=== PATIENT | male | born 1970 | race Caucasian/White ===

== ENCOUNTER 2016-12-18 13:10 | Observation (INO) | payer MEDICARE ==
--- OUTSIDE RECORDS SUMMARY | 2016-12-18 13:12 | XMS | Clinical Summary ---
:1970 Author Organization [facility] Address [address] [place] [address] Phone Care Team Providers Name Role Phone , Primary Care Provider Unavailable Allergies Not on File Current Medications Not on file Active Problems Not on file Social History Tobacco Use Types Packs/Day Years Used Date Never Assessed Sex Assigned at Date Recorded Not on file Last Filed Vital Signs Not on file Plan of Treatment Not on file Results Not on filefrom Last 3 Months
[2016-12-18 13:53] LABS: #Basophils 0.1 thou/uL (0.0-0.2); #Eosinphils 0.1 thou/uL (0.0-0.7); #Lymphocytes 1.6 thou/uL (1.20-3.40); #Monocytes 0.6 thou/uL (0.11-0.59); #Neutrophils 5.1 thou/uL (1.40-6.50); %Basophils 0.7 % (0.0-1.0); %Eosinophils 1.1 % (0.0-10.0); Hematocrit 42.9 % (42.0-52.0); Mean Platelet Volume 8.8 fL (7.4-10.4); Red Blood Cell (RBC) Count 4.79 mill/uL (4.70-6.10); White Blood Cell (WBC) Count 7.4 thou/uL (4.8-10.8)
[2016-12-18 13:55] LABS: PTT 60.2 SEC (22.9-36.1)
[2016-12-18 14:18] LABS: Troponin I 0.048 ng/mL (< 0.028)
[2016-12-18 14:20] LABS: ALT (SGPT) 29 U/L (8-55); Alkaline Phosphatase 127 U/L (40-150); BUN (Urea Nitrogen) 25 mg/dL (8.9-20.6); Bilirubin, Total 0.6 mg/dL (0.2-1.2); CK (CPK) 74 U/L (30-200); Calc. Creatinine Clearance 0 mL/min (70-130); Calcium 9.5 mg/dL (7.8-10.44); Estimated GFR-MDRD 31; Globulin 4.6 g/dL (2.4-3.5); Lipase 41 U/L (8-78)
[2016-12-18 14:29] LABS: AST (SGOT) 35 U/L (5-34); Anion Gap 20 mmol/L (10-20); Protein, Total 7.7 g/dL (6.0-8.3)
[2016-12-18 14:30] LABS: Carbon Dioxide 22 mmol/L (22-29); Chloride 103 mmol/L (98-107)
--- NOTE | 2016-12-18 14:31 | RAD ---
1 VIEW CHEST: Date: 12/18/16 HISTORY: Chest pain x1 hour. COMPARISON: 12/31/15. FINDINGS: Normal cardiac silhouette. Pulmonary vessels and hilum are normal. No masses or consolidation. Chron ic changes are noted. No pneumothorax or osseous abnormalities. IMPRESSION: Chronic changes. No acute process. POS: [facility]
[2016-12-18] MEDS ORDERED: Acetaminophen 500 MG TAB ONE (14:59)
--- NOTE | 2016-12-18 16:03 | HP ---
PRIMARY CARE PHYSICIAN: ERNESTINA Aparicio REASON FOR ADMISSION: Chest pain. HISTORY OF PRESENT ILLNESS: A 46-year-old male with a history of chronic systolic heart failure, chronic kidney disease stage 4 as well as history of bilateral lower extremity deep vein thrombosis and pulmonary embolism with IVC filter, on chronic anticoagulation with warfarin, who came to emergency room with complaint of chest pain. The patient reports that this morning he was watching TV seated in his couch and he was experiencing substernal chest pressure. He denies any radiation of pain. He denies any associated nausea, vomiting or diaphoresis. His intensity of pain is about 7/10. There was no specific aggravating or relieving factor. There was no relation of chest pain with food, respiration or activity. He was denying any epigastric pain. He was denying any cough, hemoptysis. He denies any fever or chills. Patient was concerned about because he has previous history of PE and that is why he decided to come to the emergency room for evaluation. In the emergency room, this patient had indeterminate troponin with 0.048. His BNP is elevated. His electrocardiogram was unremarkable, his INR is therapeutic. When I saw this patient in the emergency room, his pain was subsided. The patient does have chronic wound over ankle on the left side lateral malleolus which per patient is improving. He denies any fever or chills. He denies any nausea, vomiting, melena or hematemesis. Patient reports that with walking, he hurts everywhere and that is why he remains mostly in bed. PAST MEDICAL HISTORY: Bilateral deep vein thromboses, pulmonary embolism, hypertension, gout, mitral valve prolapse, cardiomegaly, chronic systolic heart failure, chronic kidney disease stage 4, chronic anticoagulation with warfarin therapy, morbid obesity. PAST SURGICAL HISTORY: Cardiac catheterization. Patient reports that he had brain surgery for unknown reason, IVC filter. PAST PSYCHIATRIC HISTORY: Reviewed and negative. SOCIAL HISTORY: Patient lives at home by himself. No history of tobacco, alcohol or illicit drug abuse. FAMILY HISTORY: No strong family history of premature coronary artery disease, stroke or cancer. ALLERGIES: The patient is allergic to PHENYTOIN, VERSED, OXCARBAZEPINE. CURRENT HOME MEDICATIONS: Lasix 40 mg p.o. b.i.d., colchicine 0.6 mg as needed , metoprolol succinate one tablet p.o. daily, warfarin 7.5 mg p.o. daily, timolol ophthalmic drops b.i.d. EMERGENCY ROOM COURSE: Patient is given aspirin and Tylenol 1 gram. REVIEW OF SYSTEMS: Please see my HPI for pertinent positive and negatives. All other review of system reviewed and negative except as mentioned in the HPI. Constitutional: Weight loss or gain, ability to conduct usual activities. Skin: Rash, itching. Eyes: Double vision, pain. ENT/Mouth: Nose bleeding, neck stiffness, pain, tenderness. Cardiovascular: Palpitations, dyspnea on exertion, orthopnea. Respiratory: Shortness of breath, wheezing, cough, hemoptysis, fever or night sweats. Gastrointestinal: Poor appetite, abdominal pain, heartburn, nausea, vomiting, constipation, or diarrhea. Genitourinary: Urgency, frequency, dysuria, nocturia. Musculoskeletal: Pain, swelling. Neurologic/Psychiatric: Anxiety, depression. Allergy/Immunologic: Skin rash, bleeding tendency. PHYSICAL EXAMINATION: VITAL SIGNS: On arrival, blood pressure 116/81, pulse 86, respiratory rate 20, temperature 97.8, saturation 98% on room air, and weight 136 kilograms. GENERAL: Patient is currently alert, awake, no obvious acute distress. HEAD: Normocephalic, atraumatic. EYES: Pupils round, reactive to light. Extraocular muscles intact. ENT: Oropharynx within normal limits. Moist mucous membranes. No oral lesions. No pharyngeal erythema, no exudates. NECK: Supple. Range of motion is normal. No meningeal signs of irritation. LUNGS: Clear to auscultation without any significant wheezing or rhonchi. CARDIAC: S1, S2 regular without any murmur. ABDOMEN: Obesity present. Bowel sounds present. No peritoneal signs, no guarding, no rigidity, no rebound. No suprapubic tenderness. BACK: Examination unremarkable, no CVA tenderness. EXTREMITIES: Upper extremity, passive movements of all joints are normal. Lower extremity, trace bilateral lower extremity edema noted. Patient does have wound over lateral aspect of lateral malleolus, which is ulcer and chronic. No surrounding signs of the cellulitis. NEUROLOGIC: Nonfocal examination. He is able to move all four limbs. Speech normal. SKIN: No skin rash. HEMATOLOGICAL SYSTEM: No lymphadenopathy. IMAGING AND LABORATORY DATA: EKG based on my review, normal sinus rhythm, nonspecific ST-T changes. Chest x-ray based on my review, cardiomegaly without any acute process. CBC: WBC 7.4, hemoglobin 13.9, and platelets 121. INR 2.1. BMP: Sodium 140, potassium 4.8, chloride 103, carbon dioxide 22, anion gap 20, BUN 25, creatinine 2.26, glucose 94, calcium 9.5. LFT: AST 35, ALT 29 , alkaline phosphatase 127, and albumin 3.7. Lipase 41. CK 74, CK-MB 0.9, troponin I 0.048. BNP 283.3. ASSESSMENT AND PLAN/IMPRESSION: 1. Acute chest pain. This patient's chest pain description is atypical. This patient has elevated troponin. This patient's INR is therapeutic, less likely to be thromboembolic disorder. At this point, the patient's substernal chest pain lasted for few minutes and subsided by itself concerning for cardiac etiology. This patient reports that he never had any stress test done in the past. At this point, we will keep this patient in the hospital for observation and we will do serial cardiac enzymes. If his troponin is going upper side, then we will consider Cardiology evaluation. If troponin is trending downward, then we will consider doing pharmacological stress test. This patient reports that he cannot walk on treadmill and he prefers to have pharmacological stress test if needed. We will check lipid profile for risk stratification. Meanwhile , continue with aspirin 325 mg p.o. daily, nitroglycerin p.r.n. basis and we will monitor on telemetry floor. 2. Elevated troponin. We will do 3 sets of cardiac enzymes to see the trend of troponin. Please see problem #1 for further details. 3. Chronic systolic heart failure. This patient has cardiomyopathy based on most recent echocardiography in 2017. Patient does have more moderate mitral regurgitation and ejection fraction of 30%-35%. Currently, patient is on Toprol -XL 25 mg p.o. daily, Lasix 40 mg p.o. b.i.d. The patient is not on DAVID inhibitor and ARB because of renal failure. 4. Hypertension. We will continue amlodipine 5 mg p.o. daily. 5. Glaucoma. We will continue timolol ophthalmic drops as per home dosage. 6. History of bilateral deep venous thrombosis and pulmonary embolism on chronic anticoagulation with warfarin. Currently, INR is therapeutic. We will check PT/INR tomorrow and continue with warfarin 5 mg p.o. daily. 7. Morbid obesity. Dietary education given. Weight loss education given. 8. Deep venous thrombosis prophylaxis. The patient is already on warfarin therapy, no need of Lovenox therapy. 9. Gastrointestinal prophylaxis, Protonix 40 mg p.o. daily. CODE STATUS: The patient is FULL CODE. Patient does not have any surrogate decision maker. Disposition plan based on clinical course, likely within 24 hours. Based on cardiac enzymes tomorrow morning, we will decide whether we need to do stress test versus Cardiology consultation. Plan of care discussed with the patient in detail. MTDD
[2016-12-18] MEDS ORDERED: Sodium Chloride 0.65% Nasal 44 ML BOT EA NARE PRN (17:08)
[2016-12-18] MEDS ORDERED: Diabetic Tussin 200 MG/10 ML UDCUP PO PRN (17:08)
[2016-12-18] MEDS ORDERED: Senokot 8.6 MG TAB PO PRN (17:08)
[2016-12-18] MEDS ORDERED: Milk Of Magnesia 30 ML UDCUP PO PRN (17:08)
[2016-12-18] MEDS ORDERED: Ondansetron HCl/PF 4 MG/2 ML Vial IVP PRN (17:08)
[2016-12-18] MEDS ORDERED: Ondansetron ODT 4 MG TAB PO PRN (17:08)
[2016-12-18] MEDS ORDERED: Nitroglycerin 0.4 MG TAB (25 Tab Bottle) SL PRN (17:08)
[2016-12-18] MEDS ORDERED: Loperamide HCl 2 MG CAP PO PRN (17:08)
[2016-12-18] MEDS ORDERED: Artificial Tears 18 DROP/0.9 ML EA EYE PRN (17:08)
[2016-12-18] MEDS ORDERED: Mag-Al 1200 mg/1200 mg/30 ML UDCUP PO PRN (17:08)
[2016-12-18] MEDS ORDERED: Eucerin (Mineral Oil/Petrolatum,White) 30 gm Jar TOP PRN (17:08)
[2016-12-18 17:28] VITALS: BMI 35.2
[2016-12-18] MEDS ORDERED: Aspirin 325 MG TAB PO SCH (17:30)
[2016-12-18 18:54] LABS: Troponin I 0.058 ng/mL (< 0.028)
[2016-12-18] MEDS ORDERED: Warfarin Sodium 5 MG TAB PO SCH (19:15)
[2016-12-18] MEDS: Furosemide 40 MG TAB PO SCH (19:30)
[2016-12-18] MEDS: Acetaminophen 325 MG TAB PO PRN ×2 (19:30→23:37)
[2016-12-18] MEDS: Timolol 0.5% Ophth Soln 5 ml Bottle EA EYE SCH (20:22)
[2016-12-18 21:38] LABS: Troponin I 0.043 ng/mL (< 0.028)
[2016-12-18] MEDS: Nitroglycerin 2% Ointment 1 INCH/1 GM Packet TOP SCH (23:31)
[2016-12-19 04:32] LABS: Prothrombin Time 22.9 SEC (12.0-14.7)
[2016-12-19 04:39] LABS: #Eosinphils 0.1 thou/uL (0.0-0.7); #Lymphocytes 1.1 thou/uL (1.20-3.40); #Monocytes 0.4 thou/uL (0.11-0.59); %Eosinophils 1.8 % (0.0-10.0); %Lymphocytes 24.6 % (21.0-51.0); %Monocytes 9.1 % (0.0-10.0); Hematocrit 37.4 % (42.0-52.0); Mean Platelet Volume 8.2 fL (7.4-10.4); White Blood Cell (WBC) Count 4.6 thou/uL (4.8-10.8)
[2016-12-19 04:54] LABS: Anion Gap 16 mmol/L (10-20); BUN (Urea Nitrogen) 26 mg/dL (8.9-20.6); BUN/Creatinine Ratio 11.98; Calc. Creatinine Clearance 81 mL/min (70-130); Calcium 9.4 mg/dL (7.8-10.44); Carbon Dioxide 26 mmol/L (22-29); Chloride 102 mmol/L (98-107); Cholesterol 134 mg/dl (< 200 Desired); Estimated GFR-MDRD 33; LDL Cholesterol, Calculated 75 mg/dL; Phosphorus 4.6 mg/dL (2.3-4.7)
[2016-12-19] MEDS: Nitroglycerin 2% Ointment 1 INCH/1 GM Packet TOP SCH (05:05)
[2016-12-19 08:52] VITALS: BP 129/84; TEMP 97.6
[2016-12-19] MEDS ORDERED: Warfarin Sodium 5 MG TAB PO SCH ×2 (09:00→17:00)
[2016-12-19] MEDS ORDERED: Aspirin 325 MG TAB PO SCH (09:00)
[2016-12-19] MEDS: Furosemide 40 MG TAB PO SCH (09:13)
[2016-12-19] MEDS: Timolol 0.5% Ophth Soln 5 ml Bottle EA EYE SCH (09:14)
--- NOTE | 2016-12-19 11:03 | PDOC.EVN ---
Event Note - Event Note Event Note: DC SUMMARY [id number]
--- NOTE | 2016-12-19 13:11 | DIS ---
DATE OF ADMISSION: 12/18/2016 DATE OF DISCHARGE: 12/19/2016 ADMITTING DIAGNOSES: Chest pain, history of chronic kidney injury, gout, bilateral deep vein thromb oses, mitral valve prolapse, cardiomegaly, and chronic systolic heart failure. DISCHARGE DIAGNOSES: Chest pain, stable angina; gout; deep vein thromboses, stable; history of hype rtension; history of mitral valve prolapse; cardiomegaly; chronic systolic heart failure; chronic ki dney disease. HOSPITAL COURSE: Patient is a 46-year-old male who [facility] pain concerning cardiac etiology. The patient was put on telemetry [facility] and had his troponins trended. Troponins were stable at 0.048, last troponin being 0.043. Th e patient had a rise over the last year and this range has been the same since 03/2015 to now. Kathryn ent states that he recently saw his hematology nurse educator, Dr. Jefferson about 2 weeks ago and was told that every thing is normal with his heart. Patient takes metoprolol, Lasix, timolol at home as well as a gout medication. The patient had a transthoracic echocardiogram performed on 03/2015 which showed left v entricular enlargement, mild pulmonary regurg and EF of 30% to 35%. Patient, at this point in time, stated that he would like the stress test to be performed outpatient, does not want to have it done and patient states that he will call Dr. Jefferson on Wednesday and set up an appointment for outpatient st ress test. The patient denied any nausea, vomiting, diarrhea, constipation, chest pain, fevers, chi lls, or shortness of breath. Vital signs were stable. All labs are within acceptable limits. At t his point in time, we will discharge the patient home to follow up with Dr. Jefferson and PCP, Dr. Li abraham 3-5 days, PCP within 7-10 days. DISCHARGE MEDICATIONS: The patient is to resume home medication. We will also give him nitroglycer in 0.4 sublingual tablets every 5 minutes to be taken p.r.n. for chest pain. Patient was advised to call hematology nurse educator if he takes those medications. DISPOSITION: Home. MEDICATIONS: As per above. ACTIVITY: As tolerated. CONDITION: Stable. DIET: Heart healthy, low fat, low calorie, high fiber, low salt. FOLLOWUP: Follow up with cardio in 3-5 days, PCP within 7-10 days. Case and plan discussed with the patient at length. He understands and agrees with this plan.
== END 2016-12-19 13:11 | disposition home or self-care (01) ==
LOC: ERS 13:10 → 2SW 15:27
PROVIDERS: ADMIT Internal Medicine; ATTEND Internal Medicine
DX: R07.89 Other chest pain (principal); I13.0 Hypertensive heart and chronic kidney disease with heart failure and stage 1 through stage 4 chronic kidney disease, or unspecified chronic kidney disease; N18.4 Chronic kidney disease, stage 4 (severe); I50.22 Chronic systolic (congestive) heart failure; I51.7 Cardiomegaly; I34.1 Nonrheumatic mitral (valve) prolapse; M10.9 Gout, unspecified; E66.01 Morbid (severe) obesity due to excess calories; Z68.35 Body mass index [BMI] 35.0-35.9, adult; Z88.8 Allergy status to other drugs, medicaments and biological substances; Z79.01 Long term (current) use of anticoagulants; Z79.899 Other long term (current) drug therapy; Z95.828 Presence of other vascular implants and grafts; Z98.890 Other specified postprocedural states
CPT/HCPCS: 71010; 80053; 80061; 80069; 82550; 82553 ×2; 83690; 83880; 84484 ×2; 85025 ×2; 85610 ×2; 85730; 93005; 99285; G0378; 36415

== ENCOUNTER 2016-12-28 09:26 | Outpatient (CLI) | payer MEDICARE ==
--- OUTSIDE RECORDS SUMMARY | 2016-12-28 09:30 | XMS | Clinical Summary ---
:1970 Author Organization [facility] Address [address] [place] [address] Phone Care Team Providers Name Role Phone [...]
--- NOTE | 2016-12-28 12:46 | PRG ---
DATE OF SERVICE: 12/28/2016 HISTORY: Mr. Hans Boo Jr. is a very pleasant 46-year-old gentleman previously seen in the Wound Center who now presents with an ulceration of the left ankle in the region of the lateral mal leolus. The patient states that he first noted the ulceration 2-3 months ago. He states that a wou nd of his left ankle in the region of the lateral malleolus resulted from itching. The patient stat es that he treated the ulceration with the application of Band-Aids and the size of the wound increa sed. He states that the dimensions of the wound increased secondary to trauma to his skin from the Band-Aids. He states that he then begun receiving dressing changes of Telfa followed by an Nakul band age. He states that the size of the ulceration has decreased with dressing changes of Telfa in conj unction with the use of an Nakul bandage. The patient states that prior to application of Telfa to th e wound, he applies one of various essential oils he has on hand to his wound. The patient states t hat he has been performing dressing changes every 2-3 days. The patient was last seen in the Wound Center on 08/22/2014. The patient was also seen at this time for an ulceration of the left ankle in the region of the lateral malleolus. At this time, the ulceration was treated with dressing change s of Aquacel AG. The patient was unable to tolerate application of the [employer] Coban 2 layer compression system. The patient reports no new medical conditions since his last visit. The patient's surgical history is significant for right temporal lobectomy for treatment of a seizure disorder. The patient's past surgical history is also significant for IVC filter placement. Currently, the patient's medication s consist of Lasix, metoprolol, Coumadin, eyedrops for glaucoma, flaxseed oil, a vegetable supplemen t and a supplement containing turmeric. PHYSICAL EXAMINATION: VITAL SIGNS: Temperature 97.6, pulse 74, respirations 18, blood pressure 126/72. EXTREMITIES: The ulceration of the left ankle in the region of the lateral malleolus measures appro ximately 6.6 x 2.7 cm. Granulation tissue is visible within the wound margins. Nonviable tissue pr esent within the wound margins was debrided with an excisional full-thickness debridement with the u se of a curette. No purulent drainage is associated with the wound. No cellulitis of the left lowe r extremity is appreciated. No maceration of the skin of the periwound is noted. A posterior tibia l pulse is palpable on the left. Mild to moderate edema of the left lower extremity is appreciated on exam today. Varicosities of the left lower extremity are also noted on today's exam. ASSESSMENT AND PLAN: 1. 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 Aquacel Ag, Webril, and the 3M Coban two-lay er compression system will be applied to the ulceration today. I will see Mr. Boo again in 1 week. If the patient is unable to tolerate application of the 3M Coban 2-layer compression system, he has been instructed to perform dressing changes of Aquacel AG on a daily basis after cleansing an d irrigation. The patient understands and is in agreement with the preceding treatment plan. 2. Hypertension. 3. Anemia. 4. Cardiomyopathy. 5. History of seizure disorder, status post right temporal lobectomy with no recent seizures. 6. Chronic renal failure. 7. Mitral regurgitation. 8. History of headaches. 9. Increased intraocular pressure bilaterally. 10. Gout. 11. History of left lower extremity deep venous thrombosis followed by inferior vena cava filter pl acement. 12. Right lower extremity deep venous thrombosis. 13. Thrombocytopenia. 14. History of pleural effusion.
[2016-12-28] MEDS ORDERED: Sodium Chloride 0.9% 15 ML NEB ONE (17:00)
[2016-12-28] MEDS ORDERED: Lidocaine 4% Topical Sol 50 ML BOT ONE (17:00)
== END 2016-12-28 09:27 | disposition home or self-care (01) ==
LOC: WCC 09:26
PROVIDERS: ATTEND Family Medicine
DX: I83.028 Varicose veins of left lower extremity with ulcer other part of lower leg (principal); D64.9 Anemia, unspecified; I42.9 Cardiomyopathy, unspecified; I34.0 Nonrheumatic mitral (valve) insufficiency; I12.9 Hypertensive chronic kidney disease with stage 1 through stage 4 chronic kidney disease, or unspecified chronic kidney disease; N18.9 Chronic kidney disease, unspecified; M10.9 Gout, unspecified; D69.6 Thrombocytopenia, unspecified; I82.4Z1 Acute embolism and thrombosis of unspecified deep veins of right distal lower extremity; Z86.69 Personal history of other diseases of the nervous system and sense organs; Z87.09 Personal history of other diseases of the respiratory system
CPT/HCPCS: 11042; 97139; G0463; 99213; A4218; J2001

== ENCOUNTER 2016-12-31 19:30 | Emergency (ER) | payer MEDICARE ==
[2016-12-31 20:14] LABS: #Eosinphils 0.1 thou/uL (0.0-0.7); #Lymphocytes 1.4 thou/uL (1.20-3.40); #Monocytes 0.6 thou/uL (0.11-0.59); #Neutrophils 4.6 thou/uL (1.40-6.50); %Basophils 0.5 % (0.0-1.0); %Eosinophils 1.3 % (0.0-10.0); %Lymphocytes 20.9 % (21.0-51.0); %Monocytes 9.1 % (0.0-10.0); Hematocrit 45.4 % (42.0-52.0); Mean Platelet Volume 9.2 fL (7.4-10.4); Red Blood Cell (RBC) Count 5.09 mill/uL (4.70-6.10); White Blood Cell (WBC) Count 6.8 thou/uL (4.8-10.8)
[2016-12-31 20:23] LABS: ALT (SGPT) 47 U/L (8-55); AST (SGOT) 58 U/L (5-34); Alkaline Phosphatase 159 U/L (40-150); Anion Gap 19 mmol/L (10-20); BUN (Urea Nitrogen) 26 mg/dL (8.9-20.6); CK (CPK) 29 U/L (30-200); Calc. Creatinine Clearance 0 mL/min (70-130); Carbon Dioxide 22 mmol/L (22-29); Chloride 94 mmol/L (98-107); Estimated GFR-MDRD 32; Globulin 4.4 g/dL (2.4-3.5); Protein, Total 8.5 g/dL (6.0-8.3)
[2016-12-31 20:38] LABS: Troponin I 0.016 ng/mL (< 0.028)
[2016-12-31] MEDS ORDERED: Nitroglycerin 0.4 MG TAB (25 Tab Bottle) ONE (20:44)
[2016-12-31] MEDS ORDERED: Ketorolac Tromethamine 60 MG/2 ML VIAL ONE (21:44)
--- OUTSIDE RECORDS SUMMARY | 2016-12-31 21:47 | XMS | Clinical Summary ---
:1970 Author Organization [facility] Address [address] [place] [address] Phone Care Team Providers Name Role Phone [...]
--- NOTE | 2016-12-31 22:10 | RAD ---
UPRIGHT PORTABLE CHEST ONE VIEW: 12/31/16 HISTORY: 46-year-old male with chest pain. COMPARISON: 12/18/16. Heart size is within normal limits. There is some stable chronic increased linear and interstitial l devon markings in the lower lung zones. No confluent pneumonia, overt edema, or pleural effusions. IMPRESSION: Stable chronic changes. No acute process. POS: [facility]
--- NOTE | 2017-01-02 12:24 | EKG ---
Test Reason : CHEST PAIN Blood Pressure : / mmHG Vent. Rate : 084 BPM Atrial Rate : 084 BPM P-R Int : 130 ms QRS Dur : 096 ms QT Int : 388 ms P-R-T Axes : 031 000 090 degrees QTc Int : 458 ms Normal sinus rhythm Possible Left atrial enlargement Inferior infarct , age undetermined Abnormal ECG No ST elevation/CA Confirmed by LUIS PETERS ([id number]), city editor YUNIEL HESTER ([id number]) on 01/02/2017 12:24:09 PM Referred By: Confirmed By:LUIS PEETRS
== END 2016-12-31 22:19 | disposition home or self-care (01) ==
LOC: ERS 19:30
DX: R07.9 Chest pain, unspecified (principal); M79.1 Myalgia; M10.9 Gout, unspecified; I12.0 Hypertensive chronic kidney disease with stage 5 chronic kidney disease or end stage renal disease; N18.6 End stage renal disease; Z79.01 Long term (current) use of anticoagulants; Z79.899 Other long term (current) drug therapy
CPT/HCPCS: 36415; 71010; 80053; 82553; 84484; 85025; 93005; 96372; J1885

== ENCOUNTER 2017-01-04 09:41 | Outpatient (CLI) | payer MEDICARE ==
--- NOTE | 2017-01-04 11:44 | PRG ---
DATE OF SERVICE: 01/04/2017 HISTORY: Mr. Hans Boo Jr. is a very pleasant 46-year-old gentleman previously seen in the Wound Center who now presents with an ulceration of the left ankle in the region of the lateral mall eolus. At the time of the patient's last visit, Mr. Boo stated that he first noted the ulcera tion 2-3 months ago. He stated that the wound of his left ankle in the region of the lateral malleo rizwana resulted from itching. He stated that he treated the ulceration with the application of Band- ds and the size of the wound increased. He stated that the dimensions of the wound increased second giselle to trauma to his skin from the Band-Aid. He stated that he then began receiving dressing change s of Telfa followed by an Nakul bandage. He stated that the size of the ulceration decreased with taz ssing changes of Telfa in conjunction with the use of an Nakul bandage. The patient stated that prior to application of Telfa to the wound, he had been applying any one of various essential oils he had on hand to the wound. He stated that he had been performing dressing changes every 2-3 days. Prio r to the patient's last visit to the Wound Center, Mr. Boo was last seen in the Wound Center o n 08/22/2014. The patient was also seen at this time for an ulceration of the left ankle in the reg ion of the lateral malleolus. At this time, the ulceration was treated with dressing changes of Aqu acel Ag. The patient was unable to tolerate application of the 3M Coban 2 layer compression system . At the time of the patient's last visit, Aquacel Ag, Webril, and the 3M Coban 2 layer compression system were applied to the ulceration. Again, the patient states that he was unable to tolerate ap plication of the 3M Coban 2 layer compression system. PHYSICAL EXAMINATION: VITAL SIGNS: Temperature 98.0, pulse 70, respirations 18, blood pressure 120/72. EXTREMITIES: The ulceration of the left ankle in the region of the lateral malleolus measures appro ximately 4.5 x 2.1 cm. The dimensions of the wound at the time of the patient's last visit were nedra roximately 6.6 x 2.7 cm. Granulation tissue is present within the wound margins. Nonviable tissue present within the wound margins was debrided with an excisional full-thickness debridement with the use of a curette. Eschar and desiccated tissue at the periphery of the wound were excised with the use of scissors. No purulent drainage is associated with the wound. No cellulitis of the left low er extremity is appreciated. No maceration of the skin of the periwound is noted. A posterior tibi al pulse is palpable on the left. Mild to moderate edema of the left lower extremity is appreciated on exam today. Varicosities of the left lower extremity are also noted on today's exam. ASSESSMENT AND PLAN: 1. 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 Aquacel Ag, Webril, and the 3M Coban two-lay er compression system will be applied to the ulceration today. I will see Mr. Boo again in 1 week. If the patient is again unable to tolerate application of the 3M Coban 2 layer compression sy stem, dressing changes in conjunction with the use of an Nakul bandage will be initiated. The patient understands and is in agreement with the preceding treatment plan. 2. Hypertension. 3. Anemia. 4. Cardiomyopathy. 5. History of seizure disorder status post right temporal lobectomy with no recent seizures. 6. Chronic renal failure. 7. Mitral regurgitation. 8. History of headaches. 9. Increased intraocular pressure bilaterally. 10. Gout. 11. History of left lower extremity deep venous thrombosis followed by inferior vena cava filter pl acement. 12. Right lower extremity deep venous thrombosis. 13. Thrombocytopenia. 14. History of pleural effusion.
[2017-01-04] MEDS ORDERED: Lidocaine 2% Jelly 5 ML TUBE ONE (13:48)
== END 2017-01-04 09:42 | disposition home or self-care (01) ==
LOC: WCC 09:41
PROVIDERS: ATTEND Family Medicine
DX: I83.028 Varicose veins of left lower extremity with ulcer other part of lower leg (principal); L97.829 Non-pressure chronic ulcer of other part of left lower leg with unspecified severity; I12.9 Hypertensive chronic kidney disease with stage 1 through stage 4 chronic kidney disease, or unspecified chronic kidney disease; N18.9 Chronic kidney disease, unspecified; I34.0 Nonrheumatic mitral (valve) insufficiency; I42.9 Cardiomyopathy, unspecified; D64.9 Anemia, unspecified; M10.9 Gout, unspecified; D69.6 Thrombocytopenia, unspecified
CPT/HCPCS: 11042

== ENCOUNTER 2017-01-13 09:13 | Outpatient (CLI) | payer MEDICARE ==
--- NOTE | 2017-01-13 12:30 | PRG ---
DATE OF SERVICE: 01/13/2017 HISTORY: Mr. Hans Boo Jr. is a very pleasant 46-year-old gentleman previously seen in the Wound Center who presented on 12/28/2016 with an ulceration of the left ankle in the region of the lateral malleolus. At the time of the patient's visit on 12/28/2016, the patient stated that he fir st noted the ulceration 2-3 months previously. He stated that the wound of his left ankle in the re gion of the lateral malleolus resulted from itching. He stated that he treated the ulceration with the application of Band-Aids and the size of the wound increased. He stated that the dimensions of the wound increased secondary to trauma to his skin from the Band-Aid. He stated that he then began receiving dressing changes of Telfa followed by an Nakul bandage. He stated that the size of the ulc eration decreased with dressing changes of Telfa in conjunction with the use of an Nakul bandage. The patient stated that prior to application of Telfa to the wound, he had been applying any one of thomas ious essential oils he had on hand to the wound. He stated that he had been performing dressing francisca nges every 2-3 days. Prior to the patient's visit on 12/28/2016, [facility]. The patient was also seen at this time for an ulceration of the left ank le in the region of the lateral malleolus. At this time, the ulceration was treated with dressing c hanges of Aquacel AG. The patient has been unable to tolerate application of the 3M Coban 2 layer c ompression system. At the time of the patient's last two visits, the 3M Coban 2 layer compression s ystem has been applied to the ulceration of the left ankle in the region of the lateral malleolus. PHYSICAL EXAMINATION: VITAL SIGNS: Pulse 60, respirations 18, and blood pressure 138/94. EXTREMITIES: The ulceration of the left ankle in the region of the lateral malleolus measures appro ximately 2.9 x 1.2 cm. The dimensions of the wound at the time of the patient's last visit were nedra roximately 4.5 x 2.1 cm. Granulation tissue is present within the wound margins. Nonviable tissue present within the wound margins was debrided with an excisional full-thickness debridement with the use of a curette. Eschar and desiccated tissue at the periphery of the wound were excised with the use of scissors. No purulent drainage is associated with the wound. No cellulitis of the left low er extremity is appreciated. No maceration of the skin of the periwound is noted. Mild to moderate edema of the left lower extremity is appreciated on exam today. Varicosities of the left lower ext remity are also noted on exam today. ASSESSMENT AND PLAN: 1. 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 Silvercel, 4 x 4s, Kerlix, and an Nakul bandag e will be applied to the ulceration today. The patient is to perform the preceding dressing changes 3 times per week or alternatively on a daily basis after cleansing and irrigation with the assistan ce of his . I will see Mr. Boo again in two weeks. 2. Hypertension. 3. Anemia. 4. Cardiomyopathy. 5. History of seizure disorder status post right temporal lobectomy with no recurrent seizures. 6. Chronic renal failure. 7. Mitral regurgitation. 8. History of headaches. 9. Increased intraocular pressure bilaterally. 10. Gout. 11. History of left lower extremity deep venous thrombosis followed by inferior vena cava filter pl acement. 12. Right lower extremity deep venous thrombosis. 13. Thrombocytopenia. 14. History of pleural effusion.
[2017-01-13] MEDS ORDERED: Lidocaine 4% Topical Sol 50 ML BOT ONE (17:25)
== END 2017-01-13 09:14 | disposition home or self-care (01) ==
LOC: WCC 09:13
PROVIDERS: ATTEND Family Medicine
DX: I83.028 Varicose veins of left lower extremity with ulcer other part of lower leg (principal); M10.9 Gout, unspecified; D69.6 Thrombocytopenia, unspecified; I82.401 Acute embolism and thrombosis of unspecified deep veins of right lower extremity; I42.9 Cardiomyopathy, unspecified; I34.0 Nonrheumatic mitral (valve) insufficiency; I12.9 Hypertensive chronic kidney disease with stage 1 through stage 4 chronic kidney disease, or unspecified chronic kidney disease; N18.9 Chronic kidney disease, unspecified; D63.1 Anemia in chronic kidney disease; H40.059 Ocular hypertension, unspecified eye; Z86.718 Personal history of other venous thrombosis and embolism; Z86.69 Personal history of other diseases of the nervous system and sense organs
CPT/HCPCS: 11042; J2001

== ENCOUNTER 2017-05-14 21:30 | Inpatient (IN) | payer MEDICARE ==
--- NOTE | 2017-05-14 22:20 | RAD ---
FRONTAL VIEW CHEST 05/14/17 COMPARISON: 12/31/16 INDICATION: Hypoxia, fever, and cough. FINDINGS: Abnormal alveolar opacities are seen bilaterally. The cardiac silhouette is prominent as is pulmonary vasculature. IMPRESSION: Bilateral patchy alveolar opacities which may relate to edema and/or atypical bilateral pneumonia. Re commend clinical correlation as well as imaging followup to confirm resolution. POS: [facility]
[2017-05-14 22:23] LABS: ALT (SGPT) 22 U/L (8-55); AST (SGOT) 37 U/L (5-34); Albumin 3.6 g/dL (3.5-5.0); Alkaline Phosphatase 197 U/L (40-150); Anion Gap 14 mmol/L (10-20); BUN (Urea Nitrogen) 21 mg/dL (8.9-20.6); Bilirubin, Total 1.8 mg/dL (0.2-1.2); CK (CPK) 258 U/L (30-200); Calc. Creatinine Clearance 0 mL/min (70-130); Calcium 9.1 mg/dL (7.8-10.44); Carbon Dioxide 21 mmol/L (22-29); Chloride 91 mmol/L (98-107); Estimated GFR-MDRD 38; Globulin 3.9 g/dL (2.4-3.5); Glucose 158 mg/dL (70-105); Potassium 3.8 mmol/L (3.5-5.1); Protein, Total 7.5 g/dL (6.0-8.3); Sodium 122 mmol/L (136-145)
[2017-05-14 22:24] LABS: #Lymphocytes 0.4 thou/uL (1.20-3.40); #Monocytes 0.5 thou/uL (0.11-0.59); #Neutrophils 7.5 thou/uL (1.40-6.50); %Eosinophils 0.2 % (0.0-10.0); %Lymphocytes 4.9 % (21.0-51.0); %Monocytes 6.3 % (0.0-10.0); %Neutrophils 88.6 % (42.0-75.0); Hemoglobin 12.6 g/dL (14.0-18.0); Mean Corpuscular HGB CONC 34.8 g/dL (32.0-36.0); Mean Corpuscular Hemoglobin 30.7 pg (27.0-31.0); Mean Corpuscular Volume 88.1 fl (80.0-94.0); Mean Platelet Volume 9.2 fL (7.4-10.4); PLT Morphology Comment Appears Decreased; Platelet Count 75 thou/uL (130-400); RBC Distribution Width 12.1 % (11.5-14.5); Red Blood Cell (RBC) Count 4.12 mill/uL (4.70-6.10); White Blood Cell (WBC) Count 8.5 thou/uL (4.8-10.8)
[2017-05-14 22:36] LABS: CKMB 0.9 ng/mL (0-6.6); Troponin I 0.068 ng/mL (< 0.028)
[2017-05-15 00:24] LABS: Base Excess-Venous -0.6 mmol/L (-30.0-30.0); Bicarbonate (HCO3v) 22.7 mmol/L (1.0-85.0); CO2 Tension (PvCO2) 32.2 mmHg (41.0-51.0); Calcium, Ionized 1.02 mmol/L (1.12-1.32); Hemoglobin - Calc 12.6 g/dL (12.0-18.0); O2 Tension (PvO2) 126.2 mmHg (35.0-45.0); Potassium 3.9 mmol/L (3.4-4.7); T. Carbon Dioxide 23.7 mmol/L (1.0-85.0); pH (Venous) 7.456 (7.35-7.45); vO2 Saturation-calc 99.1 % (0.0-100.0)
[2017-05-15] MEDS ORDERED: Acetaminophen 325 MG TAB PO PRN ×2 (01:48→02:16)
[2017-05-15] MEDS ORDERED: Ondansetron PF 4 MG/2 ML Vial IVP PRN (01:48)
[2017-05-15] MEDS ORDERED: Ondansetron ODT 4 MG TAB SL PRN (01:48)
[2017-05-15 02:16] VITALS: BMI 35.3
[2017-05-15] MEDS ORDERED: Diabetic Tussin DM 5 ML UDCUP PO PRN (02:16)
[2017-05-15] MEDS ORDERED: Ondansetron ODT 4 MG TAB PO PRN (02:16)
[2017-05-15] MEDS: Furosemide 40 MG/4 ML VIAL SLOW IVP SCH ×2 (02:29→08:58)
[2017-05-15] MEDS: Guaifenesin DM 100-10/5 ML UDCUP PO PRN ×2 (02:36→20:13)
[2017-05-15 02:46] LABS: INR-International Normal Ratio 1.9; Prothrombin Time 22.8 SEC (12.0-14.7)
[2017-05-15 02:57] LABS: Hemoglobin 12.1 g/dL (14.0-18.0); Mean Corpuscular HGB CONC 34.3 g/dL (32.0-36.0); Mean Corpuscular Hemoglobin 30.4 pg (27.0-31.0); Mean Corpuscular Volume 88.7 fl (80.0-94.0); Mean Platelet Volume 8.8 fL (7.4-10.4); Platelet Count 65 thou/uL (130-400); RBC Distribution Width 12.2 % (11.5-14.5); Red Blood Cell (RBC) Count 3.99 mill/uL (4.70-6.10); White Blood Cell (WBC) Count 8.2 thou/uL (4.8-10.8)
[2017-05-15 03:02] LABS: Anion Gap 14 mmol/L (10-20); BUN (Urea Nitrogen) 23 mg/dL (8.9-20.6); Calc. Creatinine Clearance 87 mL/min (70-130); Calcium 9.1 mg/dL (7.8-10.44); Carbon Dioxide 21 mmol/L (22-29); Chloride 91 mmol/L (98-107); Estimated GFR-MDRD 36; Glucose 106 mg/dL (70-105); Magnesium 1.8 mg/dL (1.6-2.6); Potassium 4.2 mmol/L (3.5-5.1); Sodium 122 mmol/L (136-145)
[2017-05-15 03:03] LABS: CKMB 1.1 ng/mL (0-6.6); Troponin I 0.078 ng/mL (< 0.028)
[2017-05-15 03:09] LABS: Band 10 % (5-11); Lymphocytes 14 % (21-51); MDiff Complete? YES; Monocytes 8 % (0-10); Neutrophil 68 % (42-75); PLT Morphology Comment Appears Decreased
--- NOTE | 2017-05-15 04:42 | HP ---
DATE OF ADMISSION: 05/15/2017 TIME OF SERVICE: 0145 hours. PRIMARY CARE PHYSICIAN: Rossana Blanc MD CHIEF COMPLAINT: Cough and fever. HISTORY OF PRESENT ILLNESS: Mr. Boo is a pleasant 46-year-old white male with history of chron ic kidney disease, stage 4; chronic systolic CHF; chronic bilateral lower extremity DVTs and pulmonar y emboli; hypertension; gout; and obesity, who presents to the emergency department with fevers and c ough. The symptoms go on for the last 4 days and the cough has been fairly relentless. He has had fever up to 101.3 with chills. He really does not have any shortness of breath. No nausea and vomiting. On evaluation in the ER, he was noted to be hypoxic at 86% on room air and is chronically coughing. Chest x-ray showed bilateral patchy alveolar infiltrates consistent with edema or atypical pneumonia. He was given vancomycin, ceftriaxone and we were called for admission. The remainder of his labs l ooks fairly normal for him. Patient while in the emergency department was requiring BiPAP to maintain oxygen saturations, so he h as been admitted to the IMCU and I have evaluated him on arrival. He does have a history of chronic systolic congestive heart failure. His last echo on 04/08/2015 narcisa wed an EF of 30% -35%. He had moderate mitral regurgitation, mild tricuspid regurgitation, and pulmo nary insufficiency. On arrival to the IMCU, the patient's saturations 100% on BiPAP. He looked fairly comfortable, but d id chronically call for the BiPAP was removed. PAST MEDICAL HISTORY: 1. Chronic kidney disease stage 4. 2. Chronic systolic congestive heart failure. 3. Chronic bilateral lower extremity deep venous thromboses. 4. History of pulmonary emboli. 5. Chronic anticoagulation with warfarin. 6. Hypertension. 7. Gout. 8. Obesity. 9. History of mitral valve prolapse. 10. Seizure disorder. 11. History of IVC filter placement. PAST SURGICAL HISTORY: 1. IVC filter placement. 2. Heart catheterization per the records, the patient does not recall this. 3. History of brain surgery for seizures. HOME MEDICATIONS: 1. Lasix 40 mg p.o. b.i.d. 2. Colchicine 0.6 mg p.o. b.i.d. p.r.n. 3. Toprol-XL 50 mg p.o. daily. 4. Coumadin currently 7.5 mg daily. 5. Timolol 0.25% one drop each eye daily. 6. Oxcarbazepine 600 mg p.o. b.i.d. ALLERGIES: VERSED and PHENYTOIN, also listed OXCARBAZEPINE, but he takes it now without any problems . FAMILY HISTORY: Negative for clotting or bleeding disorder. No immune dysfunction. SOCIAL HISTORY: Negative for habits x3. REVIEW OF SYSTEMS: A 10-point review of systems was performed and was negative for all systems excep t as per HPI. PHYSICAL EXAMINATION: VITAL SIGNS: Temperature is 99.2, pulse 77, blood pressure 110/70, respiratory rate 22, satting 100% on BiPAP 12/6 with a rate of 10. GENERAL: He is awake. He is alert. He is oriented x3. He is a well-developed, well-nourished, obe se white male who appears to be in no acute distress. HEENT: Normocephalic and atraumatic. Pupils equal, round, and reactive to light bilaterally. Mucou s members are moist. He has no visible lesions. No thrush. NECK: Supple. There is no lymphadenopathy, no JVD, no thyromegaly. There are no carotid upstrokes without bruits. LUNGS: Clear anteriorly, he has good air movement and symmetrical chest excursion on the BiPAP. The BiPAP was removed. He does have faint posterior crackles in the mid lung coburn. There are no crac kles at the bases. No wheezes. CARDIOVASCULAR: He has normal cardiac. There is normal S1, S2. He has a holosystolic murmur 2/6, b est heard over the apex. ABDOMEN: Soft, nontender, nondistended. He has good bowel sounds in all four quadrants. There is n o rebound, rigidity, or guarding. EXTREMITIES: No cyanosis or clubbing. He does have chronic edema of the lower extremities. He has barely pitting around the ankles. He has no palpable cords. SKIN: Otherwise, warm, moist, well perfused. He has no other rashes or lesions. NEUROLOGIC: Cranial nerves II through XII are grossly intact. He has normal speech pattern, 5/5 str ength in all 4 of his extremities. He has no focal deficits. MUSCULOSKELETAL: Normal to inspection. Large joints appear uninflamed. There are no palpable effus ions. LABORATORY AND DIAGNOSTIC DATA: Sodium is 122, potassium 3.8, chloride 91, bicarbonate 21, BUN 21, c reatinine 1.92, which is at baseline. Calcium was 9.1, glucose 158. Alkaline phosphatase is elevate d at 197, AST barely elevated at 37, ALT normal at 22 and total bilirubin elevated at 1.5. CBC showe d white count of 8.5 with a fairly normal differential, does have 88% granulocytes, but no bands. He moglobin 12.6, hematocrit of 36.3 and platelet count of 75,000. PBG showed a pH 7.46, pCO2 of 32, pO 2 of 126, saturation 99% with bicarbonate of 23. INR was not done. CK total was 258, CK-MB of 0.9. Troponin I 0.068, the repeat was 0.090. Influenza screen was negative for A and B. BNP was elevate d at 621.5. Chest x-ray showed bilateral patchy alveolar opacities, excessive edema or atypical pneu monia. ASSESSMENT AND PLAN: 1. Acute hypoxemic respiratory failure. The patient was requiring BiPAP. The patient was transferr ed to [facility]. He was evaluated there and stabilized. We will use BiPAP as needed. 2. Pulmonary edema versus community-acquired pneumonia. The patient will be on Levofloxacin 750 mg daily for community-acquired pneumonia coverage. In the meantime, we will place him on Lasix 40 mg I V q.6 hours x2 doses. I will get a repeat chest x-ray two view in the morning for better pictures. He does have a cough and passing said that there was some blood streaking in it; however, this does s eem to be more of heart failure issue than pneumonia presently. Per reports, he does have fevers, bu t has not had any here. 3. Hyponatremia. Sodium is 122 likely hypervolemic. We will follow closely. 4. Increased alkaline phosphatase, AST, and total bilirubin, likely hepatic congestion. 5. Chronic kidney disease, stage 4, actually stage 3 per measurement. His GFR is over 30 right now. 6. Chronic bilateral lower extremities deep venous thromboses and pulmonary embolisms on Coumadin an d status post IVC filter placement. No INR was done. We will get that with morning labs. We will c ontinue his Coumadin. 7. Hypertension, currently well controlled. He is on Toprol-XL 50 mg daily. He is not bradycardic. We will continue. 8. Chronic systolic congestive heart failure. We will repeat echocardiogram, last was in 2016. We will hold his p.o. Lasix today and give 2 doses of IV Lasix 40 mg and monitor output. 9. Gout, on colchicine as needed. 10. Mitral valve prolapse. We will follow up with echocardiogram. 11. History of seizure disorder, on Trileptal, we will continue. Forty-five minutes of critical care time was spent with the patient.
[2017-05-15] MEDS: guaiFENesin ER 600 MG TAB PO SCH ×2 (08:58→20:12)
[2017-05-15] MEDS: Famotidine 20 MG TAB PO SCH ×2 (08:58→20:11)
[2017-05-15] MEDS: OXcarbazepine 300 MG TAB PO SCH ×2 (08:58→20:12)
[2017-05-15] MEDS: Timolol 0.5% Ophth Soln 5 ml Bottle EA EYE SCH ×2 (08:59→20:09)
[2017-05-15] MEDS ORDERED: OXcarbazepine 600 MG TAB PO SCH (09:00)
[2017-05-15] MEDS: HYDROcodone/Acetaminophen 10/325 mg Tablet PO PRN (09:10)
--- NOTE | 2017-05-15 10:10 | RAD ---
PA AND LATERAL OF THE CHEST: INDICATION: History of perihilar infiltrates. Followup exam to 05/14/2017. FINDINGS: There is worsening perihilar airspace opacity which may reflect worsening pneumonia. There is cardio megaly and mild pulmonary vascular congestion. No pleural effusion is evident. No acute osseous abn ormality is evident. IMPRESSION: 1. Worsening perihilar airspace opacity suspicious for worsening pneumonia. 2. There is mild cardiomegaly with mild pulmonary vascular congestion which may be related to patien t's volume status. POS: [facility]
[2017-05-15 10:19] LABS: Potassium, Urine 22.6 mmol/L
[2017-05-15 10:49] LABS: Anion Gap 13 mmol/L (10-20); BUN (Urea Nitrogen) 23 mg/dL (8.9-20.6); Calc. Creatinine Clearance 85 mL/min (70-130); Calcium 9.1 mg/dL (7.8-10.44); Carbon Dioxide 24 mmol/L (22-29); Chloride 89 mmol/L (98-107); Estimated GFR-MDRD 35; Glucose 98 mg/dL (70-105); Potassium 3.7 mmol/L (3.5-5.1); Sodium 122 mmol/L (136-145)
[2017-05-15 10:59] LABS: CKMB 1.3 ng/mL (0-6.6); Troponin I 0.063 ng/mL (< 0.028)
--- NOTE | 2017-05-15 16:02 | PDOC.PN ---
- Subjective Encounter Start Date: 05/15/17 Encounter Start Time: 11:00 Subjective: pt up in bed states he feels a little better - Objective Resuscitation Status: Resuscitation Status FULL:Full Resuscitation Vital Signs & Weight: Vital Signs (12 hours) Temp Pulse Resp BP BP Pulse Ox 05/15/17 11:36 98.4 F 68 20 120/76 100 05/15/17 08:59 88 130/80 05/15/17 08:00 98.7 F 88 24 H 05/15/17 07:33 98.7 F 88 24 H 154/83 H 96 Weight Weight 298 lb 1.6 oz I&O: 05/14/17 05/15/17 05/16/17 06:59 06:59 06:59 Intake Total 400 240 Output Total 200 1425 Balance 200 -1185 Result Diagrams: 05/15/17 02:28 05/15/17 10:21 Phys Exam - Physical Examination HEENT: PERRLA Neck: no nodes Respiratory: no wheezing, no rales Cardiovascular: RRR, no significant murmur Gastrointestinal: soft, non-tender Musculoskeletal: edema present Dx/Plan (1) Acute respiratory failure with hypoxia Code(s): J96.01 - ACUTE RESPIRATORY FAILURE WITH HYPOXIA Status: Acute Plan: pt was on bipap, currently off bipap and on [id number]. pt on levaqin (2) Hyponatremia Code(s): E87.1 - HYPO-OSMOLALITY AND HYPONATREMIA Status: Acute Plan: pt is up still has low sodium, will consult nephrology (3) DVT (deep venous thrombosis) Code(s): I82.409 - ACUTE EMBOLISM AND THOMBOS UNSP DEEP VN UNSP LOWER EXTREMITY Status: Acute Plan: pt on coumadin not theraputic. has a hx of PE. has a IVC filter (4) Elevated LFTs Code(s): R79.89 - OTHER SPECIFIED ABNORMAL FINDINGS OF BLOOD CHEMISTRY Status : Acute Plan: will continue to follow (5) Abnormal cardiac enzyme level Code(s): R74.8 - ABNORMAL LEVELS OF OTHER SERUM ENZYMES Status: Acute - Plan * .
[2017-05-15 16:30] LABS: Anion Gap 13 mmol/L (10-20); BUN (Urea Nitrogen) 27 mg/dL (8.9-20.6); Calc. Creatinine Clearance 82 mL/min (70-130); Calcium 9.2 mg/dL (7.8-10.44); Carbon Dioxide 25 mmol/L (22-29); Chloride 89 mmol/L (98-107); Estimated GFR-MDRD 33; Glucose 101 mg/dL (70-105); Potassium 4.2 mmol/L (3.5-5.1); Sodium 123 mmol/L (136-145)
--- NOTE | 2017-05-15 16:43 | CT ---
NONCONTRAST ABDOMEN AND PELVIC CT 05/15/17 INDICATION: Acute kidney insufficiency. Evaluation of IVC and renal vein patency requested. COMPARISON: 02/16/16. FINDINGS: There is an IVC filter again demonstrated within the infrarenal aspect. Otherwise small caliber IVC i s noted, grossly stable. Evaluation for renal vein and IVC patency is not reliably performed on the b asis of noncontrast CT imaging. Small exophytic hypodensity involving the lateral right kidney is stable. There is also a stable hypo density with mild peripheral calcification involving the posterior aspect of the right kidney. There is moderate distention of the gallbladder. There is diffuse opacification involving the alveoli and i nterstitium of the imaged lung bases. Pleural based calcification as well as punctate parenchymal aparna cifications are seen at the lower chest bilaterally. There are several prominent sized veins of the i annette body wall. No free air. No significant ascites. Evaluation is otherwise limited by noncontrast technique. IMPRESSION: Grossly stable appearance of the unenhanced IVC, with infrarenal IVC filter present. Stable small exophytic hypodensity of the lateral aspect of the right kidney, and stable small hypode nsity with mild peripheral calcification involving the posterior aspect of the right kidney grossly s table. No overt hydronephrosis. POS: [facility]
[2017-05-15] MEDS: Senokot S 8.6-50 MG TAB PO SCH (20:11)
[2017-05-15] MEDS ORDERED: Warfarin Sodium 7.5 MG TAB PO SCH (21:00)
--- NOTE | 2017-05-16 00:15 | CON ---
DATE OF CONSULTATION: 05/15/2017 Mr. Boo is a 46-year-old male. He tells me he has a history of seizure disorder and actually has had brain surgery in [place] for his seizures. His seizures apparently recurred this year. He presents with cough, chest congestion, and fever since Wednesday. He subsequently was admitted. His radiograph is abnormal. He says he is feeling better than when he was admitted. He has been followed by Dr. Jefferson here for systolic cardiomyopathy. Last echo in the hospital was in 03/2015, he had moderate mitral regurgitation and ejection fraction of 30-35%. PAST MEDICAL HISTORY: Remarkable for, 1. Heart failure. 2. History of DVT. 3. History of pulmonary emboli. 4. History of chronic anticoagulation. 5. History of hypertension. 6. History of gout. 7. History of inferior vena cava filter. 8. History of admission on , I saw him at that time, back pain. He had increased interstitial markings on CT scanning of his chest in 02/10. 9. History of being seen by Dr. Ernst in 2010 for pleural effusion. I also saw him, he was intubated for seizures at that time. 10. History of sleep study in 2008 showing no sleep apnea with periodic limb movements. 11. History of hemoptysis in 2000, seen by Dr. Ernst. He had in 2000, multifocal nodule with pulmonary infiltrates. In 2000, he had an ejection fraction up to 20% with severe mitral regurgitation and elevated sed rate. Bronchoscopy did show hemosiderin laden macrophages were abundant. 12. History of thrombocytopenia in 2010. At that time, he is using a significant amount of alcohol and actually had an elevated mean corpuscular volume on CBC. 13. History of being seen by Dr. Shearer in 2010 and he thought might be his thrombocytopenia was secondary to epilepsy medication. 14. History of an elevated PTT present since 2000. 15. History of an inferior vena cava filter placement by Dr. Castaneda in 11/2010. 16. History of ? schizoaffective disorder. 17. History of multiple ER visits in 2010 for cough and other complaints. ALLERGIES: He reports allergies to PENICILLIN, MIDAZOLAM, VERSED and TRILEPTAL. FAMILY HISTORY: Positive for hypertension and diabetes. SOCIAL HISTORY: Not smoking or drinking. He is currently not employed. He says he has not been able to do anything since his seizures came back. REVIEW OF SYSTEMS: 10 point systems reviewed otherwise negative. VITAL SIGNS: Afebrile, heart rate 75, respiratory rate is 20, oximetry is 100% on 2 liters, blood pressure 120/71. HEENT: Pupils are equal. Sclerae is anicteric. NECK: Supple, no lymphadenopathy. LUNGS: Remarkable for coarse equal breath sounds. HEART: Regular rhythm. ABDOMEN: Soft. EXTREMITIES: Without asymmetry. Does have 2+ pretibial edema. LABORATORY DATA: White count 8.2, hemoglobin 12.1, platelets 65,000. Sodium 123, potassium 4.2, chloride 89, bicarbonate 25, BUN 27, creatinine 2.16. There is no urinalysis. PH 7.45, CO2 of 32, pO2 of 126. IMPRESSION: Bilateral pulmonary infiltrates, going back to beginning of this century, he has had intermittent admissions with pulmonary infiltrates with underlying cardiomyopathy and elevated BNP, I would wonder if this is a more heart failure related or heart failure related combined with an infectious process. Echocardiogram has been ordered. So far, he is diuresed little bit today and is tolerating this reasonably well. He has so many confounding factors in his past history including prolonged PTT, off anticoagulants, thrombocytopenia, bronchoscopic findings suggestive of an alveolar hemorrhage, some low grade vasculitis is also possible. He has chronic kidney disease now as well. I will be happy to follow with the other physicians caring for him. Hopefully this is simply an acute infectious event though his radiograph is not consistent with a bacterial pneumonia in my opinion. This is a 50-minute consult, greater than 50% of the time spent on the unit coordinating care. ALEXANDRA
[2017-05-16] MEDS: HYDROcodone/Acetaminophen 10/325 mg Tablet PO PRN (03:35)
[2017-05-16 04:27] LABS: Hemoglobin 11.7 g/dL (14.0-18.0); Platelet Count 67 thou/uL (130-400)
[2017-05-16 04:29] LABS: INR-International Normal Ratio 2.1; Prothrombin Time 24.4 SEC (12.0-14.7)
[2017-05-16] MEDS: Famotidine 20 MG TAB PO SCH ×2 (08:47→20:36)
[2017-05-16] MEDS: Furosemide 40 MG TAB PO SCH ×2 (08:48→15:16)
[2017-05-16] MEDS: Senokot S 8.6-50 MG TAB PO SCH ×2 (08:48→20:36)
[2017-05-16] MEDS: OXcarbazepine 300 MG TAB PO SCH ×2 (08:48→20:37)
[2017-05-16] MEDS: Timolol 0.5% Ophth Soln 5 ml Bottle EA EYE SCH ×2 (08:48→20:36)
[2017-05-16] MEDS: guaiFENesin ER 600 MG TAB PO SCH ×2 (08:48→20:36)
[2017-05-16] MEDS ORDERED: Furosemide 40 MG TAB PO SCH (09:00)
--- NOTE | 2017-05-16 10:26 | PRG ---
DATE OF SERVICE: 05/16/2017 SUBJECTIVE: This is a 46-year-old gentleman being seen for hyponatremia and acute kidney injury with congestive heart failure. The patient denies any nausea, vomiting, or chest pain. OBJECTIVE: GENERAL: Patient is awake, alert. VITAL SIGNS: Afebrile, pulse 78, breathing at 16, blood pressure 121/79. GENERAL APPEARANCE AND MENTAL STATUS: Fair. HEAD/NECK: Normocephalic. Atraumatic. EYES: EOMI. No deformity. EARS: Clear. No ulcers. NOSE: Intact. No lesions. MOUTH: Clear. No discharge. THROAT: Clear. No exudate. LUNGS: Clear. No crackles. CARDIAC: S1, S2. No rub. ABDOMEN: Benign. BS+. GENITALIA/RECTUM: Morris absent. BACK/EXTREMITIES: Edema 3+ Ulcer- NEUROLOGICAL: Alert and motor intact. SKIN: Rash- Bruise- LYMPHATICS: Edema- Ulcer- LABORATORY: Show hemoglobin 11.7, creatinine 2.1. RECOMMENDATIONS: 1. Chronic kidney disease stage 4, stable. 2. Hyponatremia due to renal failure. Recommend 1000 mL fluid restriction. 3. Medications based on glomerular filtration rate are appropriate. No indication for dialysis at t his time.
--- NOTE | 2017-05-16 14:03 | PDOC.PN ---
- Subjective Encounter Start Date: 05/16/17 Encounter Start Time: 11:30 Subjective: pt up in bed no complains, on oxygen 2L - Objective Resuscitation Status: Resuscitation Status FULL:Full Resuscitation Vital Signs & Weight: Vital Signs (12 hours) Temp Pulse Resp BP Pulse Ox 05/16/17 11:35 98.1 F 81 20 112/55 L 91 L 05/16/17 08:48 73 05/16/17 07:48 97.9 F 73 18 121/79 100 05/16/17 07:35 97.9 F 73 18 95 05/16/17 03:32 98.3 F 89 20 157/90 H 93 L Weight Weight 298 lb 1.6 oz I&O: 05/15/17 05/16/17 05/17/17 06:59 06:59 06:59 Intake Total 400 1910 Output Total 200 2825 Balance 200 -915 Result Diagrams: 05/16/17 04:02 05/15/17 16:01 Phys Exam - Physical Examination HEENT: PERRLA, moist MMs Neck: no nodes Respiratory: no wheezing (mild crackles to bases) Gastrointestinal: soft, non-tender Musculoskeletal: no edema Neurological: non-focal Lymphatic: no nodes Psychiatric: normal affect Dx/Plan (1) Acute respiratory failure with hypoxia Code(s): J96.01 - ACUTE RESPIRATORY FAILURE WITH HYPOXIA Status: Acute Plan: volume overload vs pneumonia pt on abx and on lasix (2) Hyponatremia Code(s): E87.1 - HYPO-OSMOLALITY AND HYPONATREMIA Status: Acute Plan: on fluid restriction. low serum osmolarity. nephrology on board (3) DVT (deep venous thrombosis) Code(s): I82.409 - ACUTE EMBOLISM AND THOMBOS UNSP DEEP VN UNSP LOWER EXTREMITY Status: Acute Plan: continue coumadin, has a ivc filter Comment: pt has antiphospholipid antibiody positive on coumadin (4) Elevated LFTs Code(s): R79.89 - OTHER SPECIFIED ABNORMAL FINDINGS OF BLOOD CHEMISTRY Status : Acute Plan: unknown etiology Comment: hepatitis negative in the past (5) Abnormal cardiac enzyme level Code(s): R74.8 - ABNORMAL LEVELS OF OTHER SERUM ENZYMES Status: Acute Plan: echo pending, cardiology consulted. pt has Mitral regurgitation. Comment: pt was seen by cardiology [place] for possible MR repair vs replacement, was not a candidate due to seizure. (6) Seizure Code(s): R56.9 - UNSPECIFIED CONVULSIONS Status: Acute Plan: pt has been seizure free for 7 years however now he has had 3 seizure. suppose to see neurology next month. on seizure meds. Comment: s/p brain surgery for uncontrolled seizure 7 years ago - Plan * .
[2017-05-16 14:48] LABS: Anion Gap 18 mmol/L (10-20); BUN (Urea Nitrogen) 33 mg/dL (8.9-20.6); Calc. Creatinine Clearance 76 mL/min (70-130); Carbon Dioxide 19 mmol/L (22-29); Chloride 89 mmol/L (98-107); Estimated GFR-MDRD 30; Glucose 108 mg/dL (70-105); Potassium 4.3 mmol/L (3.5-5.1); Sodium 122 mmol/L (136-145)
--- NOTE | 2017-05-16 15:52 | PRG ---
DATE OF SERVICE: 05/16/2017 SUBJECTIVE: Mr. Boo feels about the same, a little bit better. PHYSICAL EXAMINATION: VITAL SIGNS: He is afebrile, heart rate 81, respiratory rate 20, oximetry 91 on 3 liters, and blood pressure 112/55. Intake and output is negative 915. LUNGS: Clear anteriorly. HEART: Regular rhythm. ABDOMEN: Soft. IMPRESSION: 1. Bilateral pulmonary infiltrates with a history of intermittent infiltrates going back 17 or 18 ye ars. We will repeat a radiograph tomorrow to see if these improved and dramatic improvement would argue th at majority of this is pulmonary edema related. He is clearly clinically improved since admission. 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 2. History of chronic anticoagulation. 3. History of sleep study showing no sleep apnea. 4. History of hemoptysis back in 2000 with multifocal nodules with infiltrates. His ejection fracti on was 20% back then with severe mitral regurgitation. 5. History of thrombocytopenia, possibly secondary to seizure medications. 6. History of an elevated PTT in the past when not on anticoagulations. 7. History of schizoaffective disorder. PLAN: Repeat radiograph in the morning. Continue current medications. INR is 2.1 today, so he is a dequately anticoagulated.
[2017-05-16] MEDS ORDERED: Warfarin Sodium 7.5 MG TAB PO SCH (17:00)
--- NOTE | 2017-05-16 20:02 | CON ---
DATE OF CONSULTATION: 05/16/2017 HISTORY OF PRESENT ILLNESS: The patient is a 46-year-old gentleman who presents for evaluation of increasing dyspnea. The patient has a previous history of congestive heart failure and a known cardiomyopathy. He also has multiple medical problems including chronic renal insufficiency, history of DVT and pulmonary embolus. The patient has been admitted previously with congestive heart failure. He states that he has had low grade fever and has been having productive sputum. He also reports having dyspnea with minimal exertion. PAST MEDICAL HISTORY: 1. Cardiomyopathy. 2. Hypertension. 3. Seizure disorder. 4. Pulmonary emboli. 5. Chronic renal insufficiency. PAST SURGICAL HISTORY: Lobectomy for his seizure disorder and had an IVC filter placed. SOCIAL HISTORY: Nonsmoker. ALLERGIES: PENICILLIN, VERSED, TRILEPTAL, MIDAZOLAM. PHYSICAL EXAMINATION: GENERAL: A middle-aged gentleman, in no acute distress. Blood pressure is 132/ 62. NECK: Full. No carotid bruits. LUNGS: His lungs have coarse breath sounds bilateral. HEART: Regular rate and rhythm, normal S1, S2. ABDOMEN: Nondistended. EXTREMITIES: Show moderate edema. SKIN: Warm and dry. VASCULAR: Radial pulses 2+. NEUROLOGIC: Nonfocal. LABORATORY DATA: White blood cell count 8.2, hemoglobin 12.1, hematocrit 35.4, platelets are 65. INR was 2.1. Sodium is 122, potassium 4.3, chloride 89, bicarbonate 19, BUN 23, creatinine 2.33. His EKG revealed him to have sinus tachycardia with Q-wave suggestive of previous inferior infarct. IMPRESSION: 1. Congestive heart failure. 2. History of cardiomyopathy. 3. History of seizure disorder. 4. History of deep venous thrombosis and pulmonary embolism with IVC filter placement. 5. Schizoaffective disorder. 6. Chronic renal insufficiency. 7. Hypertension. This gentleman presents with mild congestive heart failure. From a cardiac standpoint, he is being treated with IV Lasix. We will recheck the patient's echocardiogram to reevaluate his left ventricular function. We will follow this patient with you through his hospitalization. ALEXANDRA
[2017-05-17] MEDS: Guaifenesin DM 100-10/5 ML UDCUP PO PRN (03:56)
[2017-05-17] MEDS: HYDROcodone/Acetaminophen 5/325 mg Tablet PO PRN (04:00)
[2017-05-17 04:22] LABS: INR-International Normal Ratio 2.7
--- NOTE | 2017-05-17 08:14 | PDOC.CTH ---
Cardiology Progress Note - Subjective The pt seen and examined. No overnight events. No cardiac complaints. He still feels weak and fatigue with cont. coughing. - Objective Vital Signs Temp Pulse Resp BP Pulse Ox 05/17/17 07:45 97.7 F 75 24 H 139/74 99 05/17/17 04:00 97.6 F 80 20 147/79 H 97 05/17/17 00:00 97.7 F 75 20 144/80 H 93 L 05/16/17 20:36 74 Weight 298 lb 14.4 oz 05/16/17 05/17/17 05/18/17 06:59 06:59 06:59 Intake Total 1910 1380 Output Total 2825 1620 Balance -915 -240 - Physical Examination General/Neuro: alert & oriented x3 Neck: no JVD present Lungs: CTA Heart: RRR Abdomen: soft Extremities: other: (1+ pitting edema) - Telemetry Telemetry Rhythm: SR 70s - Labs Result Diagrams: 05/16/17 04:02 05/16/17 14:09 Troponin/CKMB CK-MB (CK-2) 1.3 ng/mL (0-6.6) 05/15/17 10:21 Troponin I 0.063 ng/mL (< 0.028) H 05/15/17 10:21 - Assessment/Plan 1. Acute Resp. failure 2nday to PNA - On Antibiotic; managed by PCP and Technical Maintenance Technician 2. Acute on Chronic Systolic HF - improving with Lasix 40mg PO BID; Echo is pending; DAVID is on hold due to hx of CKD 3. HTN - stable with Metoprolol 50mg BID; cont. monitor 4. CKD stage 3 - slightly worsened today; cont. monitor 5. Hx of DVT and PE with IVC filter placement - Antiphospholipid antibody positive on Coumadin; on Coumadin; INR today is 2.7; managed by PCP 6. Hyponatremia - on Fluid restriction 1200ml/day 7. Seizure with s/p brain surgery for uncontrolled seizure 7 years ago - no current episodes of SZ during this admission. The pt is on SZ meds and suppose to see neurology next month. 8. Schizoaffective disorder - stable MAR reviewed Review of Systems - Review of Systems Constitutional: reports: no symptoms reported EENTM: reports: no symptoms reported Respiratory: reports: see HPI Cardiac (ROS): reports: no symptoms reported ABD/GI: reports: no symptoms reported : reports: no symptoms reported Musculoskeletal: reports: no symptoms reported
[2017-05-17] MEDS: Senokot S 8.6-50 MG TAB PO SCH ×2 (08:30→21:06)
[2017-05-17] MEDS: Famotidine 20 MG TAB PO SCH ×2 (08:34→21:07)
[2017-05-17] MEDS: guaiFENesin ER 600 MG TAB PO SCH ×2 (08:34→21:06)
[2017-05-17] MEDS: Furosemide 40 MG TAB PO SCH ×2 (08:34→14:03)
[2017-05-17] MEDS: OXcarbazepine 300 MG TAB PO SCH ×2 (08:35→21:06)
[2017-05-17] MEDS: Timolol 0.5% Ophth Soln 5 ml Bottle EA EYE SCH ×2 (08:35→21:08)
--- NOTE | 2017-05-17 09:19 | RAD ---
ONE VIEW CHEST: COMPARISON: 05/14/17, 05/15/17. HISTORY: Congestive heart failure. FINDINGS: Persistent cardiomegaly and pulmonary vascular prominence. Patchy interstitial and alveolar opacitie s. No consolidation or mass. No pneumothorax or osseous abnormalities. IMPRESSION: Persistent congestive heart failure. When compared to the prior examination, there appears to be sli ght improved aeration in the lung bases. POS: [facility]
[2017-05-17] MEDS: HYDROcodone/Acetaminophen 10/325 mg Tablet PO PRN ×2 (10:36→18:29)
--- NOTE | 2017-05-17 12:11 | PRG ---
DATE OF SERVICE: 05/17/2017 Mr. Boo did well overnight. He has no complaints. He thinks he may have had a seizure last ni ght because he got up and started wandering around look for the bathroom. His tells him that wh at he does at home. He has generalized seizures, sometimes he has absence seizure sometimes. PHYSICAL EXAMINATION: VITAL SIGNS: He is afebrile, heart rate is 84, respiratory rate is 20, oximetry is 100%, blood pres sure 122/75. LUNGS: His lungs are clear. HEART: Regular rhythm. ABDOMEN: Abdomen is soft. Chest radiograph is slightly improved of his lung bases. IMPRESSION: 1. Congestive heart failure with an improved radiographic pulmonary edema. 2. History of chronic anticoagulation. 3. Seizure disorder status post brain surgery for this. 4. Hemoptysis and history of alveolar hemorrhage. 5. History of mitral regurgitation. 6. History of thrombocytopenia in the past. 7. History of a prolonged PTT in the past. 8. History of schizoaffective disorder. He does not drive and is very dependent on his to take care of him. He appears to be medically stable at this point. With regards to the seizure, Neurology input probably should be solicited or h is neurologist in [place] should be contacted. He is stable to move out of the [facility] in my opinion.
[2017-05-17 14:23] LABS: Ionized Calcium 4.6 mg/dL (4.5-5.6)
--- NOTE | 2017-05-17 14:45 | PDOC.PN ---
- Subjective Encounter Start Date: 05/17/17 Encounter Start Time: 10:45 Subjective: pt up in bed no complains - Objective Resuscitation Status: Resuscitation Status FULL:Full Resuscitation Vital Signs & Weight: Vital Signs (12 hours) Temp Pulse Resp BP Pulse Ox 05/17/17 11:45 97.8 F 84 20 122/75 100 05/17/17 08:35 75 05/17/17 08:00 97.7 F 75 24 H 99 05/17/17 07:45 97.7 F 75 24 H 139/74 99 05/17/17 04:00 97.6 F 80 20 147/79 H 97 Weight Weight 298 lb 14.4 oz I&O: 05/16/17 05/17/17 05/18/17 06:59 06:59 06:59 Intake Total 1910 1380 240 Output Total 2825 1620 400 Balance -915 -240 -160 Result Diagrams: 05/16/17 04:02 05/16/17 14:09 Phys Exam - Physical Examination HEENT: PERRLA, moist MMs Neck: no nodes, no JVD Respiratory: no wheezing (pt has some crackles to lower bases) Cardiovascular: RRR, no significant murmur Gastrointestinal: soft, non-tender Musculoskeletal: no edema Neurological: non-focal Dx/Plan (1) Acute respiratory failure with hypoxia Code(s): J96.01 - ACUTE RESPIRATORY FAILURE WITH HYPOXIA Status: Acute Plan: possible pna possible chf. pt on lasix (2) Hyponatremia Code(s): E87.1 - HYPO-OSMOLALITY AND HYPONATREMIA Status: Acute Plan: continue to be lo. nephrology consulted (3) DVT (deep venous thrombosis) Code(s): I82.409 - ACUTE EMBOLISM AND THOMBOS UNSP DEEP VN UNSP LOWER EXTREMITY Status: Acute Plan: continue current care Comment: pt has antiphospholipid antibiody positive on coumadin (4) Elevated LFTs Code(s): R79.89 - OTHER SPECIFIED ABNORMAL FINDINGS OF BLOOD CHEMISTRY Status : Acute Comment: hepatitis negative in the past (5) Abnormal cardiac enzyme level Code(s): R74.8 - ABNORMAL LEVELS OF OTHER SERUM ENZYMES Status: Acute Comment: pt was seen by cardiology in [place] for possible MR repair vs replacement, was not a candidate due to seizure. (6) Seizure Code(s): R56.9 - UNSPECIFIED CONVULSIONS Status: Acute Plan: questionable pt had a seizure last night. will get eeg and consult neurology. given pt's hyponatremia is a possibility. Comment: s/p brain surgery for uncontrolled seizure 7 years ago - Plan * .
--- NOTE | 2017-05-17 17:47 | PRG ---
DATE OF SERVICE: 05/17/2017 NEPHROLOGY PROGRESS NOTE SUBJECTIVE: Patient was seen and examined at bedside and overnight events noted. Patient denies any shortness of breath or chest pain or palpitation. No history of nausea or vomiting or diarrhea or f ever or chills or cramps. OBJECTIVE: GENERAL: This is a well-built male, in no apparent distress. VITAL SIGNS: Temperature 97.6, pulse 79, respiratory rate 18, blood pressure 127/76. HEENT: Atraumatic, normocephalic. Oral mucosa is moist. NECK: Supple. CARDIOVASCULAR: S1, S2 heard. Rate and rhythm regular. RESPIRATORY: Clear to auscultation. GASTROINTESTINAL: Abdomen is soft. MUSCULOSKELETAL: No tenderness. No edema. DERMATOLOGIC: No skin rash. NEUROLOGIC: Alert and awake and oriented x3. No focal neurologic deficits. Moving all the extremiti es. PSYCHIATRIC: Mood and affect normal. LABORATORY DATA: Sodium is 122, BUN is 33, creatinine is 2.3. ASSESSMENT AND PLAN: 1. Acute kidney injury, most likely cardiorenal syndrome. Creatinine is getting worse, most likely from flu medications, currently on Lasix. 2. Cardiorenal syndrome, on Lasix with worsening of renal function and we will monitor. 3. Hyponatremia, advised limit fluid intake. 4. Hypertension, stable. 5. Edema, controlled. 6. Advised to limit fluid intake. We will follow.
[2017-05-17] MEDS: Zonisamide 100 MG CAP PO SCH (21:15)
--- NOTE | 2017-05-17 23:15 | CON ---
DATE OF CONSULTATION: 05/17/2017 REFERRING PROVIDER: Odette Morse M.D. REASON FOR CONSULTATION: Confusion. HISTORY OF PRESENT ILLNESS: Mr. Boo is a pleasant 46-year-old male who has been consulted for evaluation of confusion. History is obtained from patient's as well as a nurse. reports the patient has history of seizure disorder. He has tried multiple anticonvulsants in the past. He had undergone brain surgery for seizures. After the brain surgery, his seizures were under well control; in fact, he was able to come off of this antiepileptic medications altogether. He restarted having seizures few months ago. At that time, he was started on Trileptal. He is currently taking Trileptal 600 mg twice daily. reports that he had his seizure on 2017. He was at home sleeping at night around 11:30, he woke her up with generalized tonic-clonic seizure. He had another spell couple of hours later and then another spell few hours later. One of the event was captured on her cell phone, which I had seen in which he had tonic-clonic convulsions. His face was down on the bed. He was making gurgling noise and had a frothing at the mouth. He was very confused and disoriented after the spell. He is being admitted and being treated for pneumonia during this hospitalization. On yesterday, nurse reports that patient came out of the room, acting very confused and disoriented. He had urinary incontinence. It is unknown whether he had any seizure-like episode before he came out of the room. reports that after the seizure is over, he usually tends to be confused and agitated, which he was on yesterday night. He has not had any more confusion this morning or afternoon. PAST MEDICAL HISTORY: Significant for hypertension, congestive heart failure, chronic kidney disease stage 4, bilateral DVTs, history of PE, gout, seizure disorder. PAST SURGICAL HISTORY: Significant for IVC filter placement and brain surgery for seizures. CURRENT MEDICATIONS: Please review MAR. ALLERGIES: Include VERSED, PHENYTOIN. FAMILY HISTORY: Noncontributory. SOCIAL HISTORY: Denies smoking, alcohol use, or illicit drug use. He is and disabled. REVIEW OF SYSTEMS: As mentioned above in the HPI, otherwise negative. PHYSICAL EXAMINATION: VITAL SIGNS: Blood pressure of 127/76, pulse of 79, temperature of 97.6, respirations of 20, and O2 sats of 97% on room air. GENERAL: Well-developed, well-nourished male and resting in chair in no apparent distress. RESPIRATORY: Clear to auscultation bilaterally. CARDIOVASCULAR: Regular rate and rhythm. NEUROLOGIC: Mental status: The patient is awake, alert, and oriented x3. Speech and language: Fluent speech. Cranial nerves: Pupils are 3 mm and reactive. Visual coburn are intact. External muscles are intact. No nystagmus is noted. Face is symmetric. Tongue and uvula are midline. Motor exam showed normal tone and bulk with 5/5 strength in both upper and lower extremities. Coordination intact to [id number], finger tapping bilaterally. Babinski: Plantar responses flexion bilaterally. LABORATORY DATA: Reviewed, which included CBC, BMP, which is significant for hemoglobin of 12.1, hematocrit of 35.4, platelet count of 65. Sodium of 122, BUN of 33, creatinine of 2.33, otherwise unremarkable. IMPRESSION: 1. Pneumonia. 2. Confusion, likely postictal from generalized seizure. Mr. Boo is a pleasant 46-year-old male with history of seizure disorder on Trileptal, had an episode of confusion. Based on the description, this was likely postictal state. He may have had unwitnessed generalized seizure, which led to postictal confusion. I have discussed with the that he needs to be on another antiepileptic medication as he continues to have seizure-like episode. He has already been tried on Dilantin, Depakote, Keppra, phenobarbital, Topamax. He was not able to afford Vimpat due to financial reason. I would recommend starting on zonisamide 100 mg at bedtime, which can be increased to 100 mg twice daily by his primary neurologist as an outpatient. He has an appointment with his primary neurologist Dr. Maldonado on next week. I have advised that he needs to keep that appointment. Continue supportive care. Continue current medical management. Thank you for your consultation. ALEXANDRA
[2017-05-18 05:40] LABS: Hemoglobin 10.8 g/dL (14.0-18.0); INR-International Normal Ratio 2.9; Platelet Count 72 thou/uL (130-400); Prothrombin Time 31.7 SEC (12.0-14.7)
--- NOTE | 2017-05-18 08:48 | PDOC.CTH ---
<Scarlet Pollard - Last Filed: 05/18/17 08:49> Cardiology Progress Note - Subjective The pt seen and examined. No overnight events. No cardiac complaints. He still has cont. cough. His questions about fluid restriction were answered today - Objective Vital Signs Temp Pulse Resp BP Pulse Ox 05/18/17 07:46 98.6 F 70 20 100 05/18/17 07:16 98.6 F 70 20 141/73 H 100 05/18/17 04:00 98.5 F 91 20 141/76 H 97 05/18/17 00:00 97.9 F 76 20 132/73 98 05/17/17 21:08 79 Weight 298 lb 14.4 oz 05/17/17 05/18/17 05/19/17 06:59 06:59 06:59 Intake Total 1380 980 Output Total 1620 1950 Balance -240 -970 - Physical Examination General/Neuro: alert & oriented x3 Neck: no JVD present Heart: RRR Abdomen: soft Extremities: other: (No edema) - Telemetry Telemetry Rhythm: SR80s - Labs Result Diagrams: 05/18/17 04:39 05/16/17 14:09 Troponin/CKMB CK-MB (CK-2) 1.3 ng/mL (0-6.6) 05/15/17 10:21 Troponin I 0.063 ng/mL (< 0.028) H 05/15/17 10:21 - Assessment/Plan 1. Acute Resp. failure 2nday to PNA - On Antibiotic; managed by PCP and [employer] 2. Acute on Chronic Systolic HF - improving with Lasix 40mg PO BID; DAVID is on hold due to hx of CKD 3. HTN - stable with Metoprolol 50mg BID; cont. monitor 4. CKD stage 3 - cont. monitor 5. Hx of DVT and PE with IVC filter placement - Antiphospholipid antibody positive on Coumadin; on Coumadin; INR today is 2.9; managed by PCP 6. Hyponatremia - on Fluid restriction 1200ml/day; Fluid restriction education given to the pt 7. Seizure with s/p brain surgery for uncontrolled seizure 7 years ago - no current episodes of SZ during this admission. The pt is on SZ meds and suppose to see neurology next month. 8. Schizoaffective disorder - stable MAR reviewed * Echo on 05/15/17 showed EF 35-40% (30-35% in 2016), mod TRISTAN, mod MR, and mild TR Review of Systems - Review of Systems Constitutional: reports: no symptoms reported EENTM: reports: no symptoms reported Respiratory: reports: see HPI Cardiac (ROS): reports: no symptoms reported ABD/GI: reports: no symptoms reported : reports: no symptoms reported Musculoskeletal: reports: no symptoms reported <Wanda Jefferson - Last Filed: 05/18/17 23:03> Cardiology Progress Note - Objective Vital Signs Temp Pulse Resp BP BP Pulse Ox 05/18/17 20:58 78 05/18/17 19:49 97.2 F L 78 16 98 05/18/17 19:23 97.2 F L 78 16 121/75 100 05/18/17 15:48 97.8 F 76 18 126/77 99 05/18/17 11:54 98.4 F 78 20 115/60 100 Weight 298 lb 14.4 oz 05/17/17 05/18/17 05/19/17 06:59 06:59 06:59 Intake Total 1380 980 240 Output Total 1620 1950 1100 Balance -240 -970 -860 - Labs Result Diagrams: 05/18/17 04:39 05/18/17 10:08 Troponin/CKMB CK-MB (CK-2) 1.3 ng/mL (0-6.6) 05/15/17 10:21 Troponin I 0.063 ng/mL (< 0.028) H 05/15/17 10:21 - Assessment/Plan Pt. was seen and eval. by me. I agree with the A/P by the [employer]. He seems confused this afternoon and kept asking what is happening to him. The cardiac status is stable at the present time.
[2017-05-18] MEDS: Senokot S 8.6-50 MG TAB PO SCH ×2 (09:01→20:52)
[2017-05-18] MEDS: guaiFENesin ER 600 MG TAB PO SCH ×2 (09:01→20:52)
[2017-05-18] MEDS: Furosemide 40 MG TAB PO SCH (09:01)
[2017-05-18] MEDS: Famotidine 20 MG TAB PO SCH ×2 (09:01→20:51)
[2017-05-18] MEDS: Timolol 0.5% Ophth Soln 5 ml Bottle EA EYE SCH ×2 (09:02→20:58)
[2017-05-18] MEDS: OXcarbazepine 300 MG TAB PO SCH ×2 (09:02→20:53)
[2017-05-18 10:30] LABS: Anion Gap 11 mmol/L (10-20); BUN (Urea Nitrogen) 36 mg/dL (8.9-20.6); Calc. Creatinine Clearance 73 mL/min (70-130); Calcium 9.3 mg/dL (7.8-10.44); Carbon Dioxide 29 mmol/L (22-29); Chloride 90 mmol/L (98-107); Estimated GFR-MDRD 29; Glucose 113 mg/dL (70-105); Potassium 3.6 mmol/L (3.5-5.1); Sodium 126 mmol/L (136-145)
--- NOTE | 2017-05-18 11:28 | PRG ---
DATE OF SERVICE: 05/18/2017 SUBJECTIVE: Patient was seen and examined at bedside and overnight events noted. Patient denies any shortness of breath or chest pain or palpitation. No history of nausea or vomitin g or diarrhea or fever or chills or cramps. OBJECTIVE: GENERAL: This is a well-built male, in no apparent distress. VITAL SIGNS: Temperature 99.6, pulse 70, respiratory rate 18, blood pressure 141/72. HEENT: Atraumatic, normocephalic. Oral mucosa is moist NECK: Supple. CARDIOVASCULAR: S1 and S2 heard. Rate and rhythm regular. RESPIRATORY: Clear to auscultation. GASTROINTESTINAL: Abdomen is soft. MUSCULOSKELETAL: No tenderness. No edema. DERMATOLOGIC: No skin rash. NEUROLOGIC: Alert and awake and oriented X3, No focal neurologic deficits. Moving all the extremitie s. PSYCHIATRIC: Mood and affect normal. LABORATORY DATA: Potassium is 3.6. Sodium is 126, BUN 36, creatinine is 2.4. ASSESSMENT AND PLAN: 1. Acute kidney injury, most likely cardiorenal syndrome. Sodium level is getting better. Creatini ne is slightly up today. I will change the Lasix to once a day and monitor. Continue fluid restrict ion. 2. Hyponatremia secondary to fluid overload. Advised to limit fluid intake and continue on fluid 1- 1.2 liter restriction at this time. 3. Edema, controlled. 4. Hypertension. 5. Continue on fluid restriction and will reduce the dose of Lasix to once a day and monitor renal f unction and avoid nephrotoxins. The patient also on Trileptal, which could be contributing to the hy ponatremia. Plan is to make Lasix 40 once a day, continue fluid restriction, and monitor renal function and sodiu m closely. We will follow.
--- NOTE | 2017-05-18 12:26 | PRG ---
DATE OF SERVICE: 05/18/2017 Mr. Boo is only complaining about fluid restriction. He denied shortness of breath. PHYSICAL EXAMINATION: VITAL SIGNS: He is afebrile, heart rate 70, respiratory 20, oximetry is 100%, blood pressure 141/73. LUNGS: Lungs are clear. HEART: Regular rhythm. ABDOMEN: Abdomen is soft. LABORATORY DATA: Hemoglobin is 10.8, it was 12.1 two days ago. Sodium 126, potassium 3.6, chloride 90, bicarbonate 29, BUN 36, creatinine 2.43. IMPRESSION: 1. Congestive heart failure. Today's chest radiograph was reviewed and shows only minimal infiltrat otf changes. 2. Chronic anticoagulation. 3. History of seizure disorder. 4. History of deep venous thrombosis. 5. History of pulmonary emboli. 6. History of an inferior vena cava filter. 7. Longstanding history of systolic cardiomyopathy. 8. History of seizures with recent recurrence, some grand mal by report, some absence. 9. 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 10. History of thrombocytopenia felt to be in the past to be secondary to his seizure medicine. 11. History of an elevated PTT in the past. 12. History of schizoaffective disorder. 13. History of brain surgery for seizure disorder. PLAN: Continue current care. He could move to the stroke unit in my opinion. He was seen by Neurol marsha yesterday. He was started on zonisamide 100 mg at bedtime by Neurology yesterday.
--- NOTE | 2017-05-18 13:18 | PQF ---
DATE: 05-20-17 ATTN: DR. ROSENDO CHOW / DR. BESSY CARBONE Please exercise your independent, professional judgment in responding to the clarification form. Clinical indicators are provided on the bottom of this form for your review Please check appropriate box(s): [ ] Demand Ischemia [ ] IL ( type: ) [ ] Other [ X ] Unable to determine In addition, please specify: Present on Admission (POA): [ ] Yes [ ] No [ ] Unable to determine For continuity of documentation, please document condition throughout progress notes and discharge summary. Thank You. CLINICAL INDICATORS - SIGNS / SYMPTOMS/ LABS are present in the medical record: Lab Results: TROPONIN: 05-14-17 0.068, 05-14-17: 0.090, 05-15-17: 0.078, 05-15-17: 0.063 PN ON 05-15-17: ACUTE ABNORMAL CARDIAC ENZYME LEVEL RISK FACTORS: ER: HX OF ESRD, BRAIN SURGERY, DVT, PE, HTN CONSULT NOTE DR. DOTSON 05-16-17: HIS EKG REVEALED HIM TO HAVE SINUS TACHYCARDIA WITH Q-WAVE SUGGESTIVE OF PREVIOUS INFERIOR INFARCT. TREATMENT: SERIES OF LABS ( TROPONIN) (This form is maintained as a part of the permanent medical record) 2014 [employer]. All Rights Reserved FARIBA [email or web address] Office: [phone] ALEXANDRA
--- NOTE | 2017-05-18 16:17 | PDOC.PN ---
- Subjective Encounter Start Date: 05/18/17 Encounter Start Time: 10:15 Subjective: pt up in bed still has a cough - Objective Resuscitation Status: Resuscitation Status FULL:Full Resuscitation Vital Signs & Weight: Vital Signs (12 hours) Temp Pulse Resp BP BP Pulse Ox 05/18/17 15:48 97.8 F 76 18 126/77 99 05/18/17 11:54 98.4 F 78 20 115/60 100 05/18/17 07:46 98.6 F 70 20 100 05/18/17 07:16 98.6 F 70 20 141/73 H 100 Weight Weight 298 lb 14.4 oz I&O: 05/17/17 05/18/17 05/19/17 06:59 06:59 06:59 Intake Total 1380 980 240 Output Total 1620 1950 650 Balance -240 -970 -410 Result Diagrams: 05/18/17 04:39 05/18/17 10:08 Phys Exam - Physical Examination HEENT: PERRLA Neck: no nodes Respiratory: no wheezing (mild rales) Cardiovascular: RRR, no significant murmur Gastrointestinal: soft, non-tender Musculoskeletal: no edema, pulses present Neurological: non-focal Lymphatic: no nodes Psychiatric: normal affect Dx/Plan (1) Acute respiratory failure with hypoxia Code(s): J96.01 - ACUTE RESPIRATORY FAILURE WITH HYPOXIA Status: Acute Plan: pt on abx, ef 35% will moderate MR (2) Hyponatremia Code(s): E87.1 - HYPO-OSMOLALITY AND HYPONATREMIA Status: Acute Plan: improving slowly (3) DVT (deep venous thrombosis) Code(s): I82.409 - ACUTE EMBOLISM AND THOMBOS UNSP DEEP VN UNSP LOWER EXTREMITY Status: Acute Plan: on coumadin Comment: pt has antiphospholipid antibiody positive on coumadin (4) Elevated LFTs Code(s): R79.89 - OTHER SPECIFIED ABNORMAL FINDINGS OF BLOOD CHEMISTRY Status : Acute Comment: hepatitis negative in the past (5) Abnormal cardiac enzyme level Code(s): R74.8 - ABNORMAL LEVELS OF OTHER SERUM ENZYMES Status: Acute Comment: pt was seen by cardiology in [place] for possible MR repair vs replacement, was not a candidate due to seizure. (6) Seizure Code(s): R56.9 - UNSPECIFIED CONVULSIONS Status: Acute Plan: pt was seen by neurology and was put on zonegran Comment: s/p brain surgery for uncontrolled seizure 7 years ago - Plan * .
[2017-05-18] MEDS: Zonisamide 100 MG CAP PO SCH (20:52)
[2017-05-18] MEDS: Polyethylene Glycol 3350 17 GM Packet PO PRN (21:00)
--- NOTE | 2017-05-19 03:02 | PRG ---
DATE OF SERVICE: 05/18/2017 SUBJECTIVE: Mr. Boo is a pleasant 46-year-old male with history of seizure disorder who presented with the pneumonia. He has had an episode of confusion on day before yesterday. He was started on zonisamide on the last night. According to the nurse, there is no evidence of seizure type activity. He had one episode of confusion and he woke up from his nap and asking there was no seizure type activity noted during this time and his telemetry recording was not noted to have any changes. He denies any noticeable side effects from the zonisamide. PHYSICAL EXAMINATION: VITAL SIGNS: Blood pressure of 121/75, pulse of 78, temperature of 97.2, respirations of 16, O2 sats of 100% on room air. GENERAL: Well-developed, well-nourished male in no apparent distress. RESPIRATORY: Clear to auscultation bilaterally. CARDIOVASCULAR: Regular rate and rhythm. IMPRESSION: 1. Pneumonia. 2. Seizure with postictal confusion. Mr. Boo is a pleasant 46-year-old male with history of seizure disorder, had an episode of confusion and this was likely secondary to postictal state. He was started on zonisamide on the last night, which he has tolerated well. At this time, I will recommend continuing on zonisamide 100 mg at bedtime. He will follow up with his primary neurologist who can adjust his zonisamide as an outpatient. Thank you for your consultation. ALEXANDRA
[2017-05-19 04:49] LABS: INR-International Normal Ratio 3.2
[2017-05-19] MEDS ORDERED: Furosemide 40 MG TAB PO SCH (09:00)
[2017-05-19 09:01] LABS: Anion Gap 15 mmol/L (10-20); BUN (Urea Nitrogen) 39 mg/dL (8.9-20.6); Calc. Creatinine Clearance 73 mL/min (70-130); Calcium 9.2 mg/dL (7.8-10.44); Carbon Dioxide 27 mmol/L (22-29); Chloride 92 mmol/L (98-107); Estimated GFR-MDRD 29; Glucose 134 mg/dL (70-105); Potassium 3.7 mmol/L (3.5-5.1); Sodium 130 mmol/L (136-145)
[2017-05-19] MEDS: Famotidine 20 MG TAB PO SCH ×2 (09:01→20:06)
[2017-05-19] MEDS: guaiFENesin ER 600 MG TAB PO SCH ×2 (09:02→20:05)
[2017-05-19] MEDS: OXcarbazepine 300 MG TAB PO SCH ×2 (09:02→20:06)
[2017-05-19] MEDS: Guaifenesin DM 100-10/5 ML UDCUP PO PRN ×3 (09:03→20:47)
[2017-05-19] MEDS: Senokot S 8.6-50 MG TAB PO SCH ×2 (09:03→20:06)
[2017-05-19] MEDS: Timolol 0.5% Ophth Soln 5 ml Bottle EA EYE SCH ×2 (09:03→20:06)
--- NOTE | 2017-05-19 10:01 | PDOC.CTH ---
<Scarlet Pollard - Last Filed: 05/19/17 10:00> Cardiology Progress Note - Subjective the pt seen and examined. No overnight events. No cardiac complaints. - Objective Vital Signs Temp Pulse Resp BP BP Pulse Ox 05/19/17 09:03 76 05/19/17 07:38 97.2 F L 73 18 127/74 100 05/19/17 04:00 97.9 F 76 18 134/71 97 05/18/17 23:08 97.1 F L 81 15 142/71 H 97 Weight 299 lb 4.8 oz 05/18/17 05/19/17 05/20/17 06:59 06:59 06:59 Intake Total 980 740 Output Total 1950 1860 Balance -970 -1120 - Physical Examination General/Neuro: alert & oriented x3 Neck: no JVD present Lungs: CTA (diminished at bases) Heart: RRR Abdomen: soft Extremities: + edema B (1+ pitting BLE edema) - Telemetry Telemetry Rhythm: SR 70s - Labs Result Diagrams: 05/18/17 04:39 05/19/17 08:03 Troponin/CKMB CK-MB (CK-2) 1.3 ng/mL (0-6.6) 05/15/17 10:21 Troponin I 0.063 ng/mL (< 0.028) H 05/15/17 10:21 - Assessment/Plan 1. Acute Resp. failure 2nday to PNA - On Antibiotic; managed by PCP and [employer] 2. Acute on Chronic Systolic HF - improving with Lasix 40mg PO BID; DAVID is on hold due to hx of CKD 3. HTN - stable with Metoprolol 50mg BID; cont. monitor 4. CKD stage 3 - cont. monitor 5. Hx of DVT and PE with IVC filter placement - Antiphospholipid antibody positive on Coumadin; on Coumadin; INR today is 3.2; managed by PCP 6. Hyponatremia - on Fluid restriction 1200ml/day; Fluid restriction education again given to the pt 7. Seizure with s/p brain surgery for uncontrolled seizure 7 years ago - no current episodes of SZ during this admission. The pt is on SZ meds managed by neurologist; The pt supposes to see neurology next month. 8. Schizoaffective disorder - stable MAR reviewed * Echo on 05/15/17 showed EF 35-40% (30-35% in 2016), mod TRISTAN, mod MR, and mild TR Review of Systems - Review of Systems Constitutional: reports: no symptoms reported EENTM: reports: no symptoms reported Respiratory: reports: no symptoms reported Cardiac (ROS): reports: no symptoms reported ABD/GI: reports: no symptoms reported : reports: no symptoms reported Musculoskeletal: reports: no symptoms reported <Wanda Jefferson - Last Filed: 05/19/17 19:59> Cardiology Progress Note - Objective Vital Signs Temp Pulse Resp BP Pulse Ox 05/19/17 16:01 97.4 F L 75 18 108/61 100 05/19/17 12:00 97.5 F L 79 13 121/69 97 05/19/17 09:03 76 Weight 299 lb 4.8 oz 05/18/17 05/19/17 05/20/17 06:59 06:59 06:59 Intake Total 980 740 900 Output Total 1950 1860 850 Balance -970 -1120 50 - Labs Result Diagrams: 05/18/17 04:39 05/19/17 08:03 Troponin/CKMB CK-MB (CK-2) 1.3 ng/mL (0-6.6) 05/15/17 10:21 Troponin I 0.063 ng/mL (< 0.028) H 05/15/17 10:21 - Assessment/Plan Pt. seen and eval. by me.I agree with the A/P by the PELT SALTER. Chest clear. RRR. Cardiac status is stable. Continue mild diuresis.
--- NOTE | 2017-05-19 14:36 | PDOC.PN ---
- Subjective Encounter Start Date: 05/19/17 Encounter Start Time: 10:55 Subjective: pt up in chair no complains - Objective Resuscitation Status: Resuscitation Status FULL:Full Resuscitation Vital Signs & Weight: Vital Signs (12 hours) Temp Pulse Resp BP BP Pulse Ox 05/19/17 12:00 97.5 F L 79 13 121/69 97 05/19/17 09:03 76 05/19/17 07:38 97.2 F L 73 18 127/74 100 05/19/17 04:00 97.9 F 76 18 134/71 97 Weight Weight 299 lb 4.8 oz I&O: 05/18/17 05/19/17 05/20/17 06:59 06:59 06:59 Intake Total 980 740 Output Total 1950 1860 Balance -970 -1120 Result Diagrams: 05/18/17 04:39 05/19/17 08:03 Phys Exam - Physical Examination HEENT: PERRLA Neck: no nodes, no JVD Respiratory: no wheezing (mild rales to bases) Cardiovascular: RRR, no significant murmur Gastrointestinal: soft, non-tender Musculoskeletal: no edema Neurological: non-focal Dx/Plan (1) Acute respiratory failure with hypoxia Code(s): J96.01 - ACUTE RESPIRATORY FAILURE WITH HYPOXIA Status: Acute Plan: pt doing well, pna vs chf pt on levaquin day /, pt on lasix which has been on hold due to his rise in creatinine. pt on a 1200ml fluid restriction. possible discharge in 2-3 days. (2) Hyponatremia Code(s): E87.1 - HYPO-OSMOLALITY AND HYPONATREMIA Status: Acute Plan: improving slowly with fluid restriction. (3) DVT (deep venous thrombosis) Code(s): I82.409 - ACUTE EMBOLISM AND THOMBOS UNSP DEEP VN UNSP LOWER EXTREMITY Status: Acute Plan: on coumadin. therapeutic Comment: pt has antiphospholipid antibiody positive on coumadin (4) Abnormal cardiac enzyme level Code(s): R74.8 - ABNORMAL LEVELS OF OTHER SERUM ENZYMES Status: Acute Comment: pt was seen by cardiology in [place] for possible MR repair vs replacement, was not a candidate due to seizure. (5) Seizure Code(s): R56.9 - UNSPECIFIED CONVULSIONS Status: Acute Plan: pt seen by neuology since he most likely had a seizure and zonegran Comment: s/p brain surgery for uncontrolled seizure 7 years ago (6) Acute on chronic kidney failure Code(s): N17.9 - ACUTE KIDNEY FAILURE, UNSPECIFIED; N18.9 - CHRONIC KIDNEY DISEASE, UNSPECIFIED Status: Acute Qualifiers: Acute renal failure type: unspecified Plan: pt's creatinine has stabilized - Plan * .
[2017-05-19] MEDS: Polyethylene Glycol 3350 17 GM Packet PO PRN (14:44)
--- NOTE | 2017-05-19 14:56 | PRG ---
DATE OF SERVICE: 05/19/2017 SUBJECTIVE: Mr. Boo has no complaints. He is in no distress. He has had no symptoms suggestive of recurrent seizures. OBJECTIVE: VITAL SIGNS: He is afebrile, heart rate is 79, respiratory rate is 13. Oximetry is 97 on 1 liter. Blood pressure 121/69. LUNGS: Clear. CARDIOVASCULAR: Regular rhythm. ABDOMEN: Soft. IMPRESSION: 1. History of congestive heart failure with an ejection fraction of 35%-40% with moderate mitral reg urgitation. As I have explained to him, he has had mitral regurgitation for many years. 2. Chronic anticoagulation. 3. History of seizure disorder with a recurrence of seizures in spite of surgery. 4. History of deep vein thrombosis. 5. History of inferior vena cava filter. 6. History of prolonged partial thromboplastin time in the past. 7. 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 It is unclear whether or not this is related to congestive heart failure. 8. History of thrombocytopenia. 9. History of schizoaffective disorder. 10. Deconditioning. 11. Anemia of chronic disease. 12. Hyponatremia, most likely associated with medications and his cardiomyopathy. His sodium is up to 130 today, potassium 3.7, chloride 92, bicarbonate 27, BUN is 39, creatinine is 2 .43. His chronic kidney disease will be a major factor in his future. His heart failure and valvular hear t disease do not help this and when he is "euvolemic" his creatinine increases. He is stable for discharge for close outpatient followup in my opinion.
--- NOTE | 2017-05-19 18:58 | PRG ---
DATE OF SERVICE: 05/19/2017 SUBJECTIVE: Patient was seen and examined at bedside and overnight events noted. Patient denies any shortness of breath or chest pain or palpitation. No history of nausea or vomitin g or diarrhea or fever or chills or cramps. OBJECTIVE: GENERAL: This is a well-built male, in no apparent distress. VITAL SIGNS: Temperature 97.4, pulse 75, respiratory rate 18, blood pressure 121/69. HEENT: Atraumatic, normocephalic. Oral mucosa is moist NECK: Supple. CARDIOVASCULAR: S1 and S2 heard. Rate and rhythm regular. RESPIRATORY: Clear to auscultation. GASTROINTESTINAL: Abdomen is soft. MUSCULOSKELETAL: No tenderness. No edema. DERMATOLOGIC: No skin rash. NEUROLOGIC: Alert and awake and oriented X3, No focal neurologic deficits. Moving all the extremitie s. PSYCHIATRIC: Mood and affect normal. LABORATORY DATA: Sodium 130, potassium is 3.7, BUN 39, creatinine is 2.4. ASSESSMENT AND PLAN: 1. Acute kidney injury on chronic kidney disease. His renal function seems to be stable today. Con tinue on fluid restriction. My plan is to hold a.m. dose of Lasix and possibly start on Lasix 40 mg p.o. daily after that. 2. Hyponatremia, much better with fluid restriction. 3. Fluid overload with cardiorenal syndrome. 4. Cardiorenal syndrome. 5. Hypertension. Overall, responding well to fluid restriction and titrate the dose of Lasix as needed, it is going to be challenging given the cardiorenal syndrome and CKD, need close monitoring as outpatient. We will follow.
[2017-05-19] MEDS: HYDROcodone/Acetaminophen 10/325 mg Tablet PO PRN (20:05)
[2017-05-19] MEDS: Zonisamide 100 MG CAP PO SCH (20:46)
[2017-05-19] MEDS: Chloraseptic Spray 180 ml Bottle PO PRN (23:08)
[2017-05-19] MEDS: Melatonin 3 MG TAB PO PRN (23:08)
[2017-05-20] MEDS: HYDROcodone/Acetaminophen 5/325 mg Tablet PO PRN ×4 (02:17→21:09)
[2017-05-20] MEDS: Guaifenesin DM 100-10/5 ML UDCUP PO PRN ×2 (02:18→22:22)
[2017-05-20] MEDS: Chloraseptic Spray 180 ml Bottle PO PRN ×2 (02:19→21:16)
[2017-05-20 04:27] LABS: INR-International Normal Ratio 3.3; Prothrombin Time 35.2 SEC (12.0-14.7)
[2017-05-20 04:33] LABS: Hemoglobin 10.7 g/dL (14.0-18.0); Platelet Count 83 thou/uL (130-400)
[2017-05-20] MEDS: guaiFENesin ER 600 MG TAB PO SCH ×2 (08:39→21:07)
[2017-05-20] MEDS: Famotidine 20 MG TAB PO SCH ×2 (08:40→21:07)
[2017-05-20] MEDS: Senokot S 8.6-50 MG TAB PO SCH ×2 (08:41→21:09)
[2017-05-20] MEDS: OXcarbazepine 300 MG TAB PO SCH ×2 (08:44→21:09)
[2017-05-20] MEDS: Timolol 0.5% Ophth Soln 5 ml Bottle EA EYE SCH ×2 (08:45→21:09)
[2017-05-20 08:52] LABS: Anion Gap 14 mmol/L (10-20); BUN (Urea Nitrogen) 41 mg/dL (8.9-20.6); Calc. Creatinine Clearance 70 mL/min (70-130); Carbon Dioxide 28 mmol/L (22-29); Chloride 92 mmol/L (98-107); Estimated GFR-MDRD 28; Glucose 114 mg/dL (70-105); Potassium 3.7 mmol/L (3.5-5.1); Sodium 130 mmol/L (136-145)
--- NOTE | 2017-05-20 10:30 | PRG ---
Patient Name: JOEL HUTCHINSON Date of service: 05/20/2017 Subjective: Patient was seen and examined at bedside and overnight events noted. Patient denies any shortness of breath or chest pain or palpitation. No history of nausea or vomiting or diarrhea or fever or chills or cramps. Objective: General: This is a well-built male in no apparent distress. Vital signs: Temperature 97.2, pulse 80, respirations 16, blood pressure 107/74. HEENT: Atraumatic, normocephalic. Oral mucosa is moist. Neck: Supple. Cardiovascular: S1 S2 heard. Rate and rhythm regular. Respiratory: Clear to auscultation. Gastrointestinal: Abdomen is soft. Musculoskeletal: No tenderness. No edema. Dermatologic: No skin rash. Neurologic: Alert and awake and oriented X3. No focal neurologic deficits. Moving all the extremit ies. Psychiatric: Mood and affect normal. LABORATORY DATA: Sodium was 130, potassium is 3.7, BUN 41, creatinine 2.4. ASSESSMENT AND PLAN: 1. Acute kidney injury on chronic kidney disease stage 3 with renal function stable currently. The plan is to hold Lasix and we will follow. 2. Hyponatremia seems to be stable and much better at 122, currently around 130. Continue fluid res triction, has some fluid overload. Lasix on hold because of the elevation in creatinine. 3. Cardiorenal syndrome. 4. Hypertension, stable. 5. History of seizure disorder. Plan is to hold Lasix. Continue fluid restriction, around 1-1.2 liter. The patient currently on Tri leptal, this could be contributing to the sodium, but he does need for seizure disorder. We will mon nikhil. Thank you, I will follow with you. Continue antibiotics.
[2017-05-20] MEDS: Warfarin Sodium 3.75 MG HALF.TAB PO SCH (17:36)
--- NOTE | 2017-05-20 18:30 | PDOC.CTH ---
Cardiology Progress Note - Subjective Pt. seen and eval. by me. No new cardiac events over night.He thinks that he had another seizure this AM.He denies SOB or chest pain. - Objective Vital Signs Temp Pulse Resp BP BP Pulse Ox 05/20/17 16:00 97.6 F 73 12 106/74 98 05/20/17 12:00 98.5 F 75 24 H 115/77 95 05/20/17 08:45 78 107/74 05/20/17 08:00 97.2 F L 80 16 107/74 96 Weight 292 lb 8 oz 05/19/17 05/20/17 05/21/17 06:59 06:59 06:59 Intake Total 740 1360 550 Output Total 1860 1430 1025 Balance -1120 -70 -421 - Physical Examination General/Neuro: NAD Neck: no JVD present Lungs: CTA, unlabored respirations Heart: RRR Abdomen: NT/ND Extremities: other: (varicose veins . No edema.Chronic skin changes.) - Labs Result Diagrams: 05/20/17 03:41 05/20/17 03:41 Troponin/CKMB CK-MB (CK-2) 1.3 ng/mL (0-6.6) 05/15/17 10:21 Troponin I 0.063 ng/mL (< 0.028) H 05/15/17 10:21 - Assessment/Plan 1. Acute Resp. 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 Acute on Chronic Systolic HF - improving with Lasix 40mg PO BID; DAVID is on hold due to hx of CKD 3. HTN - stable with Metoprolol 50mg BID; cont. monitor 4. CKD stage 3 - cont. monitor 5. Hx of DVT and PE with IVC filter placement - Antiphospholipid antibody positive on Coumadin; on Coumadin; INR today is 3.2; managed by PCP 6. Hyponatremia - on Fluid restriction 1200ml/day; Fluid restriction education again given to the pt 7. Seizure with s/p brain surgery for uncontrolled seizure 7 years ago - no current episodes of SZ during this admission.However the pt. thinks that he had a seizure this AM. Nothing was noted by the nurses or on the monitor. The pt is on SZ meds managed by neurologist; The pt is supposed to see neurology next month. 8. Schizoaffective disorder - stable Cardiac status is stable. I will sign off. If any changes please inform me and I will visit with him again. MAR reviewed Review of Systems - Review of Systems EENTM: reports: no symptoms reported Respiratory: reports: no symptoms reported Cardiac (ROS): reports: no symptoms reported ABD/GI: reports: no symptoms reported : reports: no symptoms reported Musculoskeletal: reports: no symptoms reported Neurological: reports: emotional problems
[2017-05-20] MEDS: Zonisamide 100 MG CAP PO SCH (21:09)
[2017-05-20] MEDS: Melatonin 3 MG TAB PO PRN (21:09)
[2017-05-21] MEDS: Chloraseptic Spray 180 ml Bottle PO PRN (03:37)
[2017-05-21 04:26] LABS: INR-International Normal Ratio 2.3; Prothrombin Time 26.3 SEC (12.0-14.7)
[2017-05-21 04:33] LABS: Anion Gap 13 mmol/L (10-20); BUN (Urea Nitrogen) 40 mg/dL (8.9-20.6); Calc. Creatinine Clearance 73 mL/min (70-130); Calcium 9.2 mg/dL (7.8-10.44); Carbon Dioxide 30 mmol/L (22-29); Chloride 93 mmol/L (98-107); Estimated GFR-MDRD 30; Glucose 91 mg/dL (70-105); Sodium 132 mmol/L (136-145)
[2017-05-21] MEDS: guaiFENesin ER 600 MG TAB PO SCH ×2 (07:54→20:31)
[2017-05-21] MEDS: HYDROcodone/Acetaminophen 5/325 mg Tablet PO PRN ×2 (07:55→18:43)
[2017-05-21] MEDS: Senokot S 8.6-50 MG TAB PO SCH ×2 (07:55→20:31)
[2017-05-21] MEDS: Timolol 0.5% Ophth Soln 5 ml Bottle EA EYE SCH ×2 (07:56→20:29)
[2017-05-21] MEDS: Famotidine 20 MG TAB PO SCH ×2 (07:56→16:47)
[2017-05-21] MEDS: OXcarbazepine 300 MG TAB PO SCH ×2 (07:56→20:30)
--- NOTE | 2017-05-21 11:37 | PDOC.PN ---
- Subjective Encounter Start Date: 05/21/17 Encounter Start Time: 10:30 no acute night events - Objective Resuscitation Status: Resuscitation Status FULL:Full Resuscitation Vital Signs & Weight: Vital Signs (12 hours) Temp Pulse Resp BP BP BP Pulse Ox 05/21/17 08:00 97 F L 70 16 97 05/21/17 07:56 80 128/65 05/21/17 07:20 97 F L 70 10 L 128/65 97 05/21/17 03:51 97.7 F 65 17 140/84 96 05/21/17 00:00 97.5 F L 77 18 133/77 96 Weight Weight 291 lb 4.8 oz I&O: 05/20/17 05/21/17 05/22/17 06:59 06:59 06:59 Intake Total 1360 1210 Output Total 1430 1500 Balance -70 -290 Result Diagrams: 05/20/17 03:41 05/21/17 03:25 Phys Exam - Physical Examination HEENT: PERRLA, moist MMs, sclera anicteric Neck: no nodes, no JVD Respiratory: no wheezing, clear to auscultation bilateral Cardiovascular: RRR, no significant murmur Gastrointestinal: soft, non-tender, no distention Musculoskeletal: pulses present Dx/Plan (1) Acute respiratory failure with hypoxia Code(s): J96.01 - ACUTE RESPIRATORY FAILURE WITH HYPOXIA Status: Acute (2) Hyponatremia Code(s): E87.1 - HYPO-OSMOLALITY AND HYPONATREMIA Status: Acute (3) Seizure Code(s): R56.9 - UNSPECIFIED CONVULSIONS Status: Acute Comment: s/p brain surgery for uncontrolled seizure 7 years ago (4) Abnormal cardiac enzyme level Code(s): R74.8 - ABNORMAL LEVELS OF OTHER SERUM ENZYMES Status: Acute Comment: pt was seen by cardiology in [place] for possible MR repair vs replacement, was not a candidate due to seizure. (5) Acute bronchitis Code(s): J20.9 - ACUTE BRONCHITIS, UNSPECIFIED Status: Acute (6) Acute on chronic kidney failure Code(s): N17.9 - ACUTE KIDNEY FAILURE, UNSPECIFIED; N18.9 - CHRONIC KIDNEY DISEASE, UNSPECIFIED Status: Acute Qualifiers: Acute renal failure type: unspecified (7) DOYLE (dyspnea on exertion) Code(s): R06.09 - OTHER FORMS OF DYSPNEA Status: Acute (8) DVT (deep venous thrombosis) Code(s): I82.409 - ACUTE EMBOLISM AND THOMBOS UNSP DEEP VN UNSP LOWER EXTREMITY Status: Acute Comment: pt has antiphospholipid antibiody positive on coumadin (9) HTN (hypertension) Code(s): I10 - ESSENTIAL (PRIMARY) HYPERTENSION Status: Acute (10) Pneumonia Code(s): J18.9 - PNEUMONIA, UNSPECIFIED ORGANISM Status: Acute Qualifiers: Pneumonia type: due to unspecified organism Laterality: bilateral Lung location: lower lobe of lung (11) Warfarin-induced coagulopathy Code(s): T45.511A - POISONING BY ANTICOAGULANTS, ACCIDENTAL, INIT; D68.9 - COAGULATION DEFECT, UNSPECIFIED Status: Acute (12) Anemia Code(s): D64.9 - ANEMIA, UNSPECIFIED Status: Chronic Qualifiers: Anemia type: iron deficiency (13) Chronic anticoagulation Code(s): Z79.01 - 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 on fluid restriction per renal continue monitoring sodium-improving monitor INR contnue current mgmt otherwise. hopefully home in next 1-2 days
[2017-05-21] MEDS: Polyethylene Glycol 3350 17 GM Packet PO PRN (14:23)
[2017-05-21] MEDS ORDERED: Warfarin Sodium 3.75 MG HALF.TAB PO SCH (17:00)
[2017-05-21] MEDS: Zonisamide 100 MG CAP PO SCH (20:31)
[2017-05-22] MEDS: HYDROcodone/Acetaminophen 10/325 mg Tablet PO PRN ×3 (00:03→13:49)
[2017-05-22 04:59] LABS: Hemoglobin 11.4 g/dL (14.0-18.0); Platelet Count 67 thou/uL (130-400)
[2017-05-22 05:00] LABS: INR-International Normal Ratio 1.7; Prothrombin Time 20.6 SEC (12.0-14.7)
--- NOTE | 2017-05-22 07:36 | PRG ---
DATE OF SERVICE: 05/21/2017 SUBJECTIVE: Patient was seen and examined at bedside and overnight events noted. Patient denies any shortness of breath or chest pain or palpitation. No history of nausea or vomitin g or diarrhea or fever or chills or cramps. OBJECTIVE: GENERAL: This is a well-built male, in no apparent distress. VITAL SIGNS: Temperature 97.3, pulse 67, respiratory rate 18, blood pressure 127/83. HEENT: Atraumatic, normocephalic. Oral mucosa is moist NECK: Supple. CARDIOVASCULAR: S1 and S2 heard. Rate and rhythm regular. RESPIRATORY: Clear to auscultation. GASTROINTESTINAL: Abdomen is soft. MUSCULOSKELETAL: No tenderness. No edema. DERMATOLOGIC: No skin rash. NEUROLOGIC: Alert and awake and oriented X3, No focal neurologic deficits. Moving all the extremitie s. PSYCHIATRIC: Mood and affect normal. LABORATORY DATA: Potassium 4.0, BUN 40, creatinine 2.7. ASSESSMENT AND PLAN: 1. Acute kidney injury on chronic kidney disease 3, renal function is stable, slightly better. Cont inue to hold Lasix. 2. Hyponatremia, continue fluid restriction . 3. Hypertension. 3. Overall renal function is stable. Continue fluid restriction and hold Lasix. We will follow.
[2017-05-22 08:32] LABS: Anion Gap 14 mmol/L (10-20); BUN (Urea Nitrogen) 32 mg/dL (8.9-20.6); Calc. Creatinine Clearance 83 mL/min (70-130); Calcium 9.3 mg/dL (7.8-10.44); Carbon Dioxide 26 mmol/L (22-29); Chloride 94 mmol/L (98-107); Estimated GFR-MDRD 35; Glucose 93 mg/dL (70-105); Potassium 4.1 mmol/L (3.5-5.1); Sodium 130 mmol/L (136-145)
[2017-05-22] MEDS: Timolol 0.5% Ophth Soln 5 ml Bottle EA EYE SCH (08:46)
[2017-05-22] MEDS: OXcarbazepine 300 MG TAB PO SCH (08:47)
[2017-05-22] MEDS: Senokot S 8.6-50 MG TAB PO SCH (08:47)
[2017-05-22] MEDS: Famotidine 20 MG TAB PO SCH (08:47)
[2017-05-22] MEDS: guaiFENesin ER 600 MG TAB PO SCH (08:47)
--- NOTE | 2017-05-22 09:53 | PDOC.PN ---
- Subjective Encounter Start Date: 05/22/17 Encounter Start Time: 08:20 no acute night events - Objective Resuscitation Status: Resuscitation Status FULL:Full Resuscitation Vital Signs & Weight: Vital Signs (12 hours) Temp Pulse Resp BP BP Pulse Ox 05/22/17 08:46 77 138/83 05/22/17 08:00 97.5 F L 77 18 97 05/22/17 07:08 97.5 F L 77 18 138/83 97 05/22/17 04:15 98.5 F 75 18 146/71 H 94 L 05/22/17 00:10 98.4 F 67 16 151/89 H 97 Weight Weight 291 lb 6.4 oz I&O: 05/21/17 05/22/17 05/23/17 06:59 06:59 06:59 Intake Total 1210 1210 Output Total 1500 1400 Balance -290 -190 Result Diagrams: 05/22/17 04:25 05/22/17 04:26 Phys Exam - Physical Examination HEENT: PERRLA, moist MMs, sclera anicteric Neck: no nodes, no JVD, supple Respiratory: no wheezing, no rales, no rhonchi Cardiovascular: RRR, no significant murmur Gastrointestinal: soft, non-tender, no distention Musculoskeletal: pulses present Neurological: non-focal Psychiatric: normal affect, A&O x 3 Dx/Plan (1) Acute respiratory failure with hypoxia Code(s): J96.01 - ACUTE RESPIRATORY FAILURE WITH HYPOXIA Status: Acute (2) Hyponatremia Code(s): E87.1 - HYPO-OSMOLALITY AND HYPONATREMIA Status: Acute (3) Seizure Code(s): R56.9 - UNSPECIFIED CONVULSIONS Status: Acute Comment: s/p brain surgery for uncontrolled seizure 7 years ago (4) Abnormal cardiac enzyme level Code(s): R74.8 - ABNORMAL LEVELS OF OTHER SERUM ENZYMES Status: Acute Comment: pt was [place] cardiology [place] for possible MR repair vs replacement, was not a candidate due to seizure. (5) Acute bronchitis Code(s): J20.9 - ACUTE BRONCHITIS, UNSPECIFIED Status: Acute (6) Acute on chronic kidney failure Code(s): N17.9 - ACUTE KIDNEY FAILURE, UNSPECIFIED; N18.9 - CHRONIC KIDNEY DISEASE, UNSPECIFIED Status: Acute Qualifiers: Acute renal failure type: unspecified (7) DOYLE (dyspnea on exertion) Code(s): R06.09 - OTHER FORMS OF DYSPNEA Status: Acute (8) DVT (deep venous thrombosis) Code(s): I82.409 - ACUTE EMBOLISM AND THOMBOS UNSP DEEP VN UNSP LOWER EXTREMITY Status: Acute Comment: pt has antiphospholipid antibiody positive on coumadin (9) HTN (hypertension) Code(s): I10 - ESSENTIAL (PRIMARY) HYPERTENSION Status: Acute (10) Pneumonia Code(s): J18.9 - PNEUMONIA, UNSPECIFIED ORGANISM Status: Acute Qualifiers: Pneumonia type: due to unspecified organism Laterality: bilateral Lung location: lower lobe of lung (11) Warfarin-induced coagulopathy Code(s): T45.511A - POISONING BY ANTICOAGULANTS, ACCIDENTAL, INIT; D68.9 - COAGULATION DEFECT, UNSPECIFIED Status: Acute (12) Anemia Code(s): D64.9 - ANEMIA, UNSPECIFIED Status: Chronic Qualifiers: Anemia type: iron deficiency (13) Chronic anticoagulation Code(s): Z79.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 Na level a slightly worse today. monitor in AM continue fluid restriction and holding lasix per renal will follow with their rec DC once cleared by renal as cardiology has signed off pharmacy helping with coumadin dosing
[2017-05-22 12:10] VITALS: BP 136/87; TEMP 97.4
--- NOTE | 2017-05-22 12:14 | PRG ---
DATE OF SERVICE: 05/22/2017 SUBJECTIVE: Patient was seen and examined at bedside and overnight events noted. Patient denies any shortness of breath or chest pain or palpitation. No history of nausea or vomiting or diarrhea or f ever or chills or cramps. OBJECTIVE: GENERAL: This is a well-built male in no apparent distress. VITAL SIGNS: Temperature 97.5, pulse 77, respiratory rate 18, blood pressure 138/83. HEENT: Atraumatic, normocephalic. Oral mucosa is moist. NECK: Supple. CARDIOVASCULAR: S1, S2 heard. Rate and rhythm regular. RESPIRATORY: Clear to auscultation. GASTROINTESTINAL: Abdomen is soft. MUSCULOSKELETAL: No tenderness. No edema. DERMATOLOGIC: No skin rash. NEUROLOGIC: Alert and awake and oriented x3. No focal neurologic deficits. Moving all the extremiti es. PSYCHIATRIC: Mood and affect normal. LABORATORY DATA: Potassium is 4.1, sodium 130, BUN 32, creatinine 2.0. ASSESSMENT AND PLAN: 1. Acute kidney injury on chronic kidney disease stage 3. Renal function is better. Lasix is on ho ld. Okay to resume Lasix at home. 2. Hyponatremia, limit fluid intake. 3. Hypertension. 4. Edema, controlled. 5. Continue fluid restriction. Okay to start Lasix at 40 mg daily. Close monitoring of renal funct ion as outpatient. The patient is to follow up with Cardiology and Nephrology closely as outpatient. Patient is aware and was counseled. We will follow. Follow with Dr. Dinh in one week.
[2017-05-22] MEDS ORDERED: Warfarin Sodium 5 MG TAB PO SCH (17:00)
--- NOTE | 2017-05-22 17:05 | EKG ---
Test Reason : Blood Pressure : / mmHG Vent. Rate : 108 BPM Atrial Rate : 108 BPM P-R Int : 184 ms QRS Dur : 102 ms QT Int : 346 ms P-R-T Axes : 056 009 041 degrees QTc Int : 463 ms Sinus tachycardia Possible Left atrial enlargement Inferior infarct , age undetermined Abnormal ECG Confirmed by NYLA RICHEY D.O. ([id number]), visual effects editor MAL KHALIL ([id number]) on 05/22/2017 5:04:20 PM Referred By: Confirmed By:NYLA RICHEY D.O.
--- NOTE | 2017-05-22 22:14 | DIS ---
DISCHARGE DIAGNOSES: 1. Acute respiratory failure with hypoxia. 2. Hyponatremia. 3. Seizure disorder. 4. Abnormal cardiac enzyme level. 5. Acute bronchitis. 6. Acute on chronic kidney failure. 7. Dyspnea on exertion. 8. Deep venous thrombosis. 9. Hypertension. 10. Pneumonia. 11. Warfarin-induced coagulopathy. 12. Anemia. 13. Chronic anticoagulation. HOSPITAL COURSE: While the patient was in the hospital, the patient was monitored in IMCU. The nick ent was placed on a BiPAP. Pulmonology was consulted. The patient improved significantly with the B iPAP that the patient was placed on as well as with Lasix. The patient was also found to be in hypon atremic, thought to be due to fluid overload hypovolemia. Nephrology was also consulted as well due to the hyponatremia that the patient presented with sodium levels around 120. The patient was fluid restricted and started on Lasix as well as BiPAP as mentioned. There was also concern that the patie nt possibly had a pneumonia, although unlikely the patient was treated as such. This was thought to be due to his congestive heart failure. While here, the patient was monitored closely. I's and O's were monitored closely as well for which the patient diuresed very, very well. The patient was able to be weaned off of oxygen beautifully to the point where patient was satting adequately on room air. We continue to flow restrict the patient as well as monitor his I's and O's. At a point, his Lasix was held, which helped to improve his sodium levels as well. With help of Nephrology, his sodium le jacqueline was able to get back into the low 130s. He was doing well without further interventions required . Cardiology had seen the patient and felt that he was significantly stable and eventually signed of f as there was no further interventions required. Due to the patient doing significantly well, we we re comfortable discharging the patient home to continue taking Lasix at one time daily. He was instr ucted to follow up with his primary care physician as well as Nephrology. He will also continue to f ollow up with [facility] for which he currently already does, for which he takes warfarin for hi s antiphospholipid syndrome as well as his previous history of DVTs as well as PE. He stated that he would do so, will follow up with his primary care physician as well as with [facility] on disch arge. All questions were answered prior to discharge. DISPOSITION: To home. DISCHARGE CONDITION: Much improved when he first came in. DISCHARGE ACTIVITY: As tolerated. DISCHARGE DIET: Heart healthy diet with 1 liter a day fluid restriction. DISCHARGE MEDICATIONS: Please home medication list. FOLLOWUP APPOINTMENTS: The patient will follow up with primary care physician in 1 week as well as w [facility] Nephrology and Cardiology as per the recommendation. DISCHARGE PLAN: Discharge planning was greater than 30 minutes.
--- NOTE | 2017-12-30 15:18 | EEG ---
Referring Physician: DR. Xenia CHOW EEG # [id number] TEST TYPE: ROUTINE PORTABLE INPATIENT DATE OF EEG BEING DONE: 05/17/17 REASON FOR EEG: SEIZURES EEG DESCRIPTION: This is a 21 channel digital EEG recording. Electrodes are placed using the international 10-20 electrode placement system. The background rhythm is predominately 8 hertz, low amplitude Alpha rhythm. There are also periods of 6- 7 hertz, low amplitude, intermittent, diffuse Theta rhythm. PHOTIC STIMULATION: Showed no effect. HYPERVENTILATION: Could not be done. There are no epileptiform discharges, sharp transients or asymmetry noted. EKG LEAD: Shows 78 beats per minute, regular rhythm. IMPRESSION: THIS IS A NORMAL EEG. Hand Driller: ANGEL Mirror Inspector: [email or web address] [email or web address]
== END 2017-05-22 14:57 | disposition home or self-care (01) | DRG 291 ==
LOC: ERS 21:30 → IMCU/EMU 23:20 → 2SE 05-21 11:27
PROVIDERS: ADMIT Internal Medicine Infectious Disease; ATTEND Internal Medicine Infectious Disease
PROC: 5A09357 Assistance with Respiratory Ventilation, Less than 24 Consecutive Hours, Continuous Positive Airway Pressure (ICD-10-PCS; principal; 2017-05-14)
DX: I13.0 Hypertensive heart and chronic kidney disease with heart failure and stage 1 through stage 4 chronic kidney disease, or unspecified chronic kidney disease (principal); J96.01 Acute respiratory failure with hypoxia; J18.9 Pneumonia, unspecified organism; N17.9 Acute kidney failure, unspecified; I42.9 Cardiomyopathy, unspecified; N18.3 Chronic kidney disease, stage 3 (moderate); Z79.01 Long term (current) use of anticoagulants; I50.22 Chronic systolic (congestive) heart failure; E87.1 Hypo-osmolality and hyponatremia; I82.503 Chronic embolism and thrombosis of unspecified deep veins of lower extremity, bilateral; I08.1 Rheumatic disorders of both mitral and tricuspid valves; M10.9 Gout, unspecified; E66.9 Obesity, unspecified; Z68.34 Body mass index [BMI] 34.0-34.9, adult; Z86.711 Personal history of pulmonary embolism; Z95.828 Presence of other vascular implants and grafts; G40.909 Epilepsy, unspecified, not intractable, without status epilepticus; D63.1 Anemia in chronic kidney disease; J42 Unspecified chronic bronchitis; Z88.5 Allergy status to narcotic agent; Z88.0 Allergy status to penicillin; T45.511A Poisoning by anticoagulants, accidental (unintentional), initial encounter
CPT/HCPCS: 36415; 71045; 71046; 74176; 80048; 80053; 80183; 82330; 82435; 82436; 82533; 82550; 82553; 82803; 83735; 83880; 83930; 83935; 84132; 84133; 84295; 84300; 84443; 84484; 85014; 85018; 85025; 85049; 85610; 87040; 87070; 87205; 87804; 93005; 93306; 93798; 94660; 95816; 95819; 96365; 96375; 99211; G0463; J0696; J1956; J3370

== ENCOUNTER 2017-05-23 14:34 | Inpatient (IN) | payer MEDICARE ==
[2017-05-23 15:08] LABS: #Lymphocytes 0.6 thou/uL (1.20-3.40); #Monocytes 0.4 thou/uL (0.11-0.59); #Neutrophils 3.9 thou/uL (1.40-6.50); %Eosinophils 0.6 % (0.0-10.0); %Lymphocytes 12.7 % (21.0-51.0); %Monocytes 7.8 % (0.0-10.0); %Neutrophils 78.9 % (42.0-75.0); Hemoglobin 12.4 g/dL (14.0-18.0); Mean Corpuscular HGB CONC 33.9 g/dL (32.0-36.0); Mean Corpuscular Hemoglobin 30.2 pg (27.0-31.0); Mean Corpuscular Volume 88.9 fl (80.0-94.0); Mean Platelet Volume 8.8 fL (7.4-10.4); Platelet Count 63 thou/uL (130-400); RBC Distribution Width 12.6 % (11.5-14.5); White Blood Cell (WBC) Count 4.9 thou/uL (4.8-10.8)
[2017-05-23 15:31] LABS: ALT (SGPT) 30 U/L (8-55); AST (SGOT) 26 U/L (5-34); Albumin 3.4 g/dL (3.5-5.0); Alkaline Phosphatase 325 U/L (40-150); Anion Gap 16 mmol/L (10-20); BUN (Urea Nitrogen) 22 mg/dL (8.9-20.6); Bilirubin, Total 0.8 mg/dL (0.2-1.2); CK (CPK) 29 U/L (30-200); Calc. Creatinine Clearance 0 mL/min (70-130); Calcium 9.6 mg/dL (7.8-10.44); Carbon Dioxide 24 mmol/L (22-29); Chloride 95 mmol/L (98-107); Estimated GFR-MDRD 38; Globulin 3.8 g/dL (2.4-3.5); Glucose 116 mg/dL (70-105); Lipase 34 U/L (8-78); Potassium 4.6 mmol/L (3.5-5.1); Protein, Total 7.2 g/dL (6.0-8.3); Sodium 130 mmol/L (136-145)
[2017-05-23 15:32] LABS: INR-International Normal Ratio 1.7; Prothrombin Time 20.6 SEC (12.0-14.7)
[2017-05-23 15:33] LABS: D-Dimer Test 1.67 *mcg/mL (0.27-0.43)
[2017-05-23 15:36] LABS: CKMB 1.4 ng/mL (0-6.6); Troponin I 0.025 ng/mL (< 0.028)
[2017-05-23 15:37] LABS: PTT 134.4 SEC (22.9-36.1)
[2017-05-23 16:01] LABS: Bilirubin Negative (Negative); Blood, Urine Negative (Negative); Clarity CLEAR (Clear); Glucose, Urine (Dipstick) Negative (Negative); Leukocyte Negative (Negative); Nitrite Negative (Negative); Protein, Urine (Dipstick) 100 mg/dL (Neg-Trace); Specific Gravity, Urine 1.017 (1.002-1.036); Urobilinogen 0.2 mg/dL (0.2-1.0)
[2017-05-23 16:02] LABS: Bacteria/HPF None Seen HPF (None Seen); Hyaline Casts/LPF 0-3 HYALINE CAST LPF (0-3 Hyaline); Pathc Cast-AUWi Flag 0.13 (0-2.49); RBC/HPF 0-3 HPF (0-3); Squamous Epithelial None Seen HPF (0-3); WBC/HPF 0-3 HPF (0-3)
--- NOTE | 2017-05-23 16:49 | RAD ---
PORTABLE CHEST 1 VIEW: Date: 05/23/17 Time: 1540 hours HISTORY: Chest pain. Patient recently discharged for pneumonia. FINDINGS/IMPRESSION: Comparison made with exam of 05/17/17. The heart size is borderline. There are bilateral infiltrates in the lower lung [place]. No pneumothor aces or pleural effusions are seen. POS: [facility]
[2017-05-23] MEDS ORDERED: Morphine 4 MG/ML Carpuject SLOW IVP PRN (17:50)
[2017-05-23] MEDS ORDERED: Nitroglycerin 4.9 GM Bottle SL PRN (17:53)
[2017-05-23] MEDS ORDERED: Warfarin Sodium 5 MG TAB PO SCH (18:30)
[2017-05-23] MEDS ORDERED: Furosemide 100 MG/10 ML VIAL ONE (18:45)
[2017-05-23 19:11] LABS: Albumin (w/Testosterone Panel) 3.3 g/dL
[2017-05-23 19:36] LABS: Testosterone, Total 229.1 ng/dL (240-871)
[2017-05-23 19:37] LABS: Sex Hormone Binding Globulin 40.2 nmol/L (11-78)
[2017-05-23] MEDS ORDERED: Acetaminophen 325 MG TAB PO PRN (20:20)
[2017-05-23] MEDS ORDERED: Ondansetron ODT 4 MG TAB SL PRN (20:20)
[2017-05-23] MEDS ORDERED: Ondansetron HCl/PF 4 MG/2 ML Vial IVP PRN (20:20)
[2017-05-23] MEDS ORDERED: Morphine 5 MG/ML SYRINGE SLOW IVP PRN (20:30)
--- NOTE | 2017-05-23 20:51 | HP ---
DATE OF ADMISSION: 05/23/2017 CHIEF COMPLAINT: Flank pain and chest pain. HISTORY OF PRESENT ILLNESS: The patient is a 46-year-old male who was just discharged yest erday from the hospital and he was hospitalized for acute respiratory failure with hypoxia and the pa belkis went home and felt some discomfort in the chest and both flanks even when he was in the hospita l, he had this pain, but it was maybe less pronounced. He was told that he is going to take pain med ications for that. This morning, he started having more discomfort in both lungs and front of the ch est. He did not feel short of breath. He did not have clammy skin. He did not have nausea or vomit ing. He reported the level of pain at approximately 8 at highest levels and this was continuous disc omfort. Also he noticed that his urine was dark, but he was recently placed on water restriction of 1000 mL per 24 hours. He also complains about constipation. He is not short of breath. He does not cough. He does not have any fever, no chills. PAST MEDICAL HISTORY: Positive for: 1. Seizure disorder. 2. Chronic kidney failure. 3. History of deep venous thrombosis. 4. History of pulmonary embolus. 5. History of hypertension, Warfarin as an anticoagulant. 6. History of anemia. 7. Recent history for acute respiratory failure with hypoxia. 8. History of antiphospholipid antibody syndrome. 9. History of bilateral lower extremity deep venous thrombosis. 10. Gout. 11. Chronic systolic congestive heart failure with last echo LVEF estimated at 35-40%. PAST SURGICAL HISTORY: 1. IVC filter. 2. Heart catheterization. 3. History of brain surgery for seizures. HOME MEDICATIONS: Warfarin on specific schedule, nitroglycerin p.r.n., colchicine 0.6 mg twice a day , metoprolol succinate 50 mg once a day, Trileptal 600 mg twice a day and furosemide 40 mg once a day . FAMILY HISTORY: Negative for clotting or bleeding disorder. No immune dysfunction. ALLERGIES: PHENYTOIN, MIDAZOLAM, OXCARBAZEPINE. SOCIAL HISTORY: Negative for alcohol drinking, cigarette smoking or use any illicit drugs. REVIEW OF SYSTEMS: The patient complains of constipation symptoms which defined in the complaints. He does not have any energy. He does not have any strength. He is deconditioned. He is not able to get up and walk. He gets tired from walking just several steps. All other symptoms were reviewed a nd they were negative. PHYSICAL EXAMINATION: VITAL SIGNS: Blood pressure is 143/82, pulse is 79, respiratory rate is 21, O2 saturation is 94% on room air. HEENT: His head is atraumatic, normocephalic. Eyes are PERRLA. Conjunctivae pinkish. Sclerae yamil cteric. Oral mucosa is moist. NECK: Supple. No lymphadenopathy. Thyroid is not palpable. LUNGS: Breath sounds, slightly diminished at both bases. Few crackles at both bases. No wheezing t nayla. HEART: S1, S2 normal. No S3, no S4. ABDOMEN: Soft, nontender, nondistended, mildly tender in the epigastric area on deeper palpation. EXTREMITIES: Approximately 1+ to 2+ peripheral edema. NEUROLOGIC: He is alert and oriented x4. There is no any motor or sensory deficits are present. Cr anial nerves are intact. LABORATORY AND X-RAY FINDINGS: White count of 4.9, hemoglobin 12.4, hematocrit 36.5, platelet count is 63,000. INR 1.7, PT of 20.6, D-dimer is 1.67. Sodium 130, potassium 4.6, chloride is 95, CO2 is 24, BUN 22, creatinine 1.9, glucose 116, alkaline phosphatase 325, creatine kinase 29, CK-MB 1.4, tro ponin I 0.025. BNP 798.6. Albumin 3.4, globulin 3.8. Lipase 34. Urinalysis showed 100 of protein and rest of UA is within normal limits. Chest x-ray showed some infiltrate in both lower lung coburn that is most likely related to his CHF. IMPRESSION: 1. Bilateral chest and front chest pain which is continuous. I do not believe that this is of any t hromboembolic event. Apparently, he had seizures during this hospitalization and he had this discomf ort before he left the hospital, this could be related to seizures. 2. Anemia, normocytic. 3. Hyponatremia and hypochloremia, most likely related to congestive heart failure. 4. Chronic renal failure, improving. 5. Chronic systolic congestive heart failure on IV Lasix. 6. History of chronic bilateral lower extremities, deep venous thrombosis. 7. History of pulmonary emboli. 8. Subtherapeutic INR for his prothrombotic state. 9. History of prothrombotic state in form of antiphospholipid antibody syndrome. 10. Gout. PLAN: Admission for observation. Condition is fair. Activity, bed rest and bathroom privileges. I V Hep-Lock, IV morphine 4 mg every 4 hours p.r.n. as needed; 15 mg of Coumadin tonight and 12.5 tomor row and 10 mg of Coumadin once a day after that. PT and INR daily. Cardiology consultation will be considered if this pain does not get any better, but we will obtain cardiac enzymes and his electroca rdiogram does not show much changes comparing to the one which was obtained on 05/14/2017 when he was admitted to this hospital on previous occasions. Also, we will obtain a sed rate, and highly sensit otf CRP and restart his home medications which is metoprolol, furosemide, Trileptal and colchicine.
[2017-05-23] MEDS ORDERED: OXcarbazepine 600 MG TAB PO SCH (21:00)
[2017-05-23] MEDS: OXcarbazepine 300 MG TAB PO SCH (21:38)
[2017-05-23] MEDS: Senokot S 8.6-50 MG TAB PO SCH (21:38)
[2017-05-23] MEDS: Famotidine 20 MG TAB PO SCH (21:38)
[2017-05-23] MEDS: Colchicine 0.6 MG TAB PO SCH (21:38)
[2017-05-23 22:33] LABS: CKMB 1.2 ng/mL (0-6.6); Troponin I 0.026 ng/mL (< 0.028)
[2017-05-23 22:48] VITALS: BMI 33.7
[2017-05-24 01:36] LABS: Troponin I 0.032 ng/mL (< 0.028)
[2017-05-24 05:16] LABS: INR-International Normal Ratio 1.8; Prothrombin Time 21.2 SEC (12.0-14.7)
[2017-05-24 05:21] LABS: Anion Gap 14 mmol/L (10-20); BUN (Urea Nitrogen) 22 mg/dL (8.9-20.6); Calc. Creatinine Clearance 87 mL/min (70-130); Calcium 9.2 mg/dL (7.8-10.44); Carbon Dioxide 25 mmol/L (22-29); Chloride 95 mmol/L (98-107); Estimated GFR-MDRD 37; Glucose 87 mg/dL (70-105); Sodium 130 mmol/L (136-145)
[2017-05-24] MEDS ORDERED: Furosemide 40 MG/4 ML VIAL SLOW IVP SCH (06:00)
[2017-05-24] MEDS: Senokot S 8.6-50 MG TAB PO SCH ×2 (08:24→21:00)
[2017-05-24] MEDS: OXcarbazepine 300 MG TAB PO SCH ×2 (08:24→21:01)
[2017-05-24] MEDS: Colchicine 0.6 MG TAB PO SCH (08:25)
--- NOTE | 2017-05-24 10:34 | CT ---
NONCONTRAST CT THORAX: DATE: 05/24/17. HISTORY: Bilateral chest pain with cough. Surgical history of IVC filter placement. COMPARISON: 12/31/[address] abdomen on 05/15/17 which visualizes the lung bases. FINDINGS: As noted on the prior exams, there are interstitial and ground-glass opacities seen throughout the ashwini ngs bilaterally, much greater in the lower lobes. The parenchymal changes in the lower lobes is dyan lar to the study on 05/15/17, but the parenchymal lung changes have increased compared to the CT chest on 12/31/15 with slightly greater multifocal ground-glass densities within the upper lobes now presen t. Findings may be related to atypical pneumonia. There is limited evaluation of vascular structures and mediastinum due to lack of intravenous contras t, but no enlarged lymph nodes are appreciated on this exam. Calcifications are seen in mitral valve annulus. There is enlargement and thickening of the left adrenal gland which is an interval change from the pr ior exams. There is adjacent stranding also present with asymmetric left perinephric stranding ident ified. The gallbladder is distended measuring 5.6 cm in diameter and 10 cm in length. No adjacent inflammat ory stranding is seen on this exam. No other interval change. IMPRESSION: 1. Interval development of enlargement and thickening of the left adrenal gland. There is adjacent inflammatory stranding which was not present on the CT abdomen on 05/15/17. Given incomplete visualiz ation of this region, a CT scan of the abdomen is recommended with IV contrast for further evaluation to evaluate the left adrenal gland and asymmetric stranding adjacent to the left kidney. 2. Interval worsening of the interstitial and ground-glass opacities within the lungs bilaterally wh en compared to the prior CT thorax on 12/31/15. There was more confluent opacity seen within the lowe r lobes on the recent CT abdomen on 05/15/17. Findings may be related to atypical infectious process. 3. Distention of the gallbladder. POS: [facility]
[2017-05-24] MEDS: Timolol 0.5% Ophth Soln 5 ml Bottle EA EYE SCH ×2 (13:38→21:03)
--- NOTE | 2017-05-24 13:39 | PQF ---
CLINICAL DOCUMENTATION IMPROVEMENT CLARIFICATION FORM: ICD-10 Updated PLEASE DO AN ADDENDUM TO THE PROGRESS NOTE WITH ANY DOCUMENTATION UPDATES OR ADDITIONS AND CARRY THROUGH TO DC SUMMARY. THANK YOU. DATE: 05/24/17 ATTN: DR. HANSON Please exercise your independent, professional judgment in responding to the clarification form. Clinical indicators are provided on the bottom of this form for your review Please check appropriate box(s): HEART FAILURE: A. TYPE: [ ] Systolic / HFrEF [ ] Diastolic / HFpEF [ ] Combined Systolic / Diastolic B. ACUITY [ ] Acute [ ] Acute on Chronic [ ] Chronic [ ] Other diagnosis [ ] Unable to determine In addition, please specify: Present on Admission (POA): [ ] Yes [ ] No [ ] Unable to determine For continuity of documentation, please document condition throughout progress notes and discharge summary. Thank You. CLINICAL INDICATORS - SIGNS / SYMPTOMS / LABS H&P: "HYPONATREMIA AND HYPOCHLOREMIA, MOST LIKELY RELATED TO CONGESTIVE HEART FAILURE." BNP 798.6 RISKS: H/O CHF TREATMENT: IV LASIX 05/24 CARDIAC MONITORING (This form is maintained as a part of the permanent medical record) 2014 [employer]. All Rights Reserved FARIBA [email or web address] Office: [phone] [facility]
[2017-05-24] MEDS: Famotidine 20 MG TAB PO SCH (15:24)
[2017-05-24] MEDS ORDERED: Warfarin Sodium 10 MG TAB PO ONE (17:00)
[2017-05-24] MEDS ORDERED: Warfarin Sodium 10 MG TAB PO SCH (17:45)
--- NOTE | 2017-05-24 18:47 | PDOC.PN ---
- Subjective Encounter Start Date: 05/24/17 Encounter Start Time: 11:30 Patient seen and examined. No new complaints. Pain over B/L rib cage. No overnight events - Objective MAR Reviewed: Yes Vital Signs & Weight: Vital Signs (12 hours) Temp Pulse Resp Pulse Ox 05/24/17 08:00 97.5 F L 76 18 97 Weight Weight 283 lb 11.2 oz I&O: 05/23/17 05/24/17 05/25/17 06:59 06:59 06:59 Intake Total 200 Output Total 2125 Balance -1925 Result Diagrams: 05/23/17 14:59 05/24/17 04:33 Radiology Reviewed by me: Yes (Chest CT - reviewed) EKG Reviewed by me: Yes (Tele SR) Phys Exam - Physical Examination Constitutional: NAD Respiratory: no wheezing Coarse BS B/L Cardiovascular: RRR, no rub no Gastrointestinal: soft, no distention, positive bowel sounds Musculoskeletal: no edema Neurological: non-focal, moves all 4 limbs Dx/Plan - Plan IMPRESSION: 1. Chest pain - prob musculoskeletal 2. Chronic systolic HF 3. h/o DVT/PE on Warfarin - INR subtherapeutic 4. Gall bladder distention 5. Abn Chest CT 6. Adrenal mass - PCP to follow. No CT with IV contrast due to CKD 4 7. Elevated troponin due to CHF 8. Other issues per previous notes PLAN: * RUQ ultrasound in AM * Consult ID due to Abn CT chest * AM labs * Cont Warfarin * Cont to monitor * Resume Zonisamide (Patient did not receive prescription at [place]) * Review of Systems - Review of Systems Respiratory: negative: Cough, Dry, Shortness of Breath, Hemoptysis, SOB with Excertion, Pleuritic Pain, Sputum, Wheezing Cardiovascular: negative: chest pain, palpitations, orthopnea, paroxysmal nocturnal dyspnea, edema, light headedness - Medications/Allergies Allergies/Adverse Reactions: Allergies Allergy/AdvReac Type Severity Reaction Status Date / Time phenytoin sodium Allergy Severe Emesis Verified 05/23/17 21:56 [From Dilantin] phenytoin sodium extended Allergy Severe Emesis Verified 05/23/17 21:56 [From Dilantin] midazolam HCl [From Versed] Allergy Intermediate swelling Verified 05/23/17 21: 56 Medications: Current Medications Acetaminophen (Tylenol) 650 mg PO Q4H PRN PRN Reason: Headache/Fever or Mild Pain Colchicine (Colcrys) 0.6 mg PO BID PRN PRN Reason: Gout flare Lactulose (Lactulose) 20 gm PO DAILYPRN PRN PRN Reason: Constipation Metoprolol Succinate (Toprol Xl) 50 mg PO DAILY [facility] Last Admin: 05/24/17 08:24 Dose: 50 mg Morphine Sulfate (Morphine) 4 mg SLOW IVP Q4H PRN PRN Reason: Chest Pain Last Admin: 05/24/17 05:18 Dose: 4 mg Nitroglycerin (Nitrolingual 0.4 Mg [place]) 0 gm SL Q5MIN PRN PRN Reason: Angina Oxcarbazepine (Trileptal) 600 mg PO BID [facility] Last Admin: 05/24/17 08:24 Dose: 600 mg Senna/Docusate Sodium (Senokot S) 1 tab PO BID [facility] Last Admin: 05/24/17 08:24 Dose: 1 tab Sodium Chloride (Flush - Normal Saline) 10 ml IVF Q12HR [facility] Last Admin: 05/24/17 08:26 Dose: 10 ml Sodium Chloride (Flush - Normal Saline) 10 ml IVF PRN PRN PRN Reason: Saline Flush Timolol Maleate (Timoptic 0.5% [facility]) 1 drop EA EYE BID [facility] Last Admin: 05/24/17 13:38 Dose: 1 drop Warfarin Sodium (Coumadin) 10 mg PO 1700 NEPTALI Warfarin Sodium (Coumadin) 10 mg PO NOW [facility] Stop: 05/24/17 19:45 Last Admin: 05/24/17 18:23 Dose: 10 mg Zonisamide (Zonegran) 100 mg PO HS [facility]
[2017-05-24] MEDS: Zonisamide 100 MG CAP PO SCH (21:01)
[2017-05-25 05:32] LABS: #Eosinphils 0.1 thou/uL (0.0-0.7); #Lymphocytes 0.9 thou/uL (1.20-3.40); #Monocytes 0.5 thou/uL (0.11-0.59); #Neutrophils 4.3 thou/uL (1.40-6.50); %Basophils 0.2 % (0.0-1.0); %Eosinophils 1.4 % (0.0-10.0); %Lymphocytes 15.5 % (21.0-51.0); %Monocytes 9.1 % (0.0-10.0); %Neutrophils 73.8 % (42.0-75.0); Hemoglobin 12.1 g/dL (14.0-18.0); Mean Corpuscular HGB CONC 32.5 g/dL (32.0-36.0); Mean Corpuscular Hemoglobin 29.1 pg (27.0-31.0); Mean Corpuscular Volume 89.3 fl (80.0-94.0); Mean Platelet Volume 8.6 fL (7.4-10.4); Platelet Count 83 thou/uL (130-400); RBC Distribution Width 12.7 % (11.5-14.5); Red Blood Cell (RBC) Count 4.17 mill/uL (4.70-6.10); White Blood Cell (WBC) Count 5.8 thou/uL (4.8-10.8)
[2017-05-25 05:35] LABS: INR-International Normal Ratio 2.3; Prothrombin Time 25.7 SEC (12.0-14.7)
[2017-05-25 05:49] LABS: ALT (SGPT) 29 U/L (8-55); AST (SGOT) 35 U/L (5-34); Albumin 3.4 g/dL (3.5-5.0); Alkaline Phosphatase 343 U/L (40-150); Anion Gap 17 mmol/L (10-20); BUN (Urea Nitrogen) 34 mg/dL (8.9-20.6); Bilirubin, Total 0.7 mg/dL (0.2-1.2); Calc. Creatinine Clearance 60 mL/min (70-130); Calcium 9.3 mg/dL (7.8-10.44); Carbon Dioxide 24 mmol/L (22-29); Chloride 93 mmol/L (98-107); Estimated GFR-MDRD 25; Globulin 3.7 g/dL (2.4-3.5); Glucose 89 mg/dL (70-105); Lipase 35 U/L (8-78); Potassium 4.4 mmol/L (3.5-5.1); Protein, Total 7.1 g/dL (6.0-8.3); Sodium 130 mmol/L (136-145)
--- NOTE | 2017-05-25 06:21 | CON ---
DATE OF CONSULTATION: 05/24/2017 REASON FOR CONSULTATION: Possible pneumonia. HISTORY OF PRESENT ILLNESS: A 46-year-old patient who has a history of renal insufficiency, anticardiolipin syndrome with recurrent thromboembolism when prior IVC filter placement as well as warfarin anticoagulation, who was admitted in mid-April with fever and cough. This was associated with hypoxemia and patchy bilateral alveolar infiltrates. The patient was given broad spectrum antimicrobial coverage and was transferred to the ICU on BiPAP mask. Initial exam showed temperature 99, pulse 77, blood pressure 110/70. Patient had negative Influenza A and B antigen. Negative blood cultures. The patient did not have any antigens submitted from urine for Strep pneumo and legionella. There was evidence of volume overload and he was fluid restricted also for management of hyponatremia. He was given Lasix intravenously in addition to the antimicrobial therapy. The discharge diagnoses were acute respiratory insufficiency with hypoxemia, CHF , bronchitis, pneumonia, hypertension, and history of thromboembolism. Next day after discharge, he developed pain along the lateral chest wall, mid lower chest region, and midback area in between the shoulder blades, which was intense and led him to come to the emergency room again. He denied any significant cough or sputum production. No dyspnea, no fever, chills, or sweats. No headaches, no visual symptoms, vomiting, hematemesis, melena, hematochezia. No abdominal pain, no joint symptoms. 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 PAST SURGICAL HISTORY: Includes IVC filter placement, heart catheterization, brain surgery for seizures. MEDICATIONS: Currently receiving Tylenol, Colcrys, lactulose, Toprol, sublingual nitroglycerin, Trileptal, Senokot, timolol, warfarin, zonisamide, Zonegran. FAMILY HISTORY: Noncontributory. ALLERGIES: DILANTIN, MIDAZOLAM, OXCARBAZEPINE. SOCIAL HISTORY: No alcoholic beverage use. Never a smoker. PHYSICAL EXAMINATION: GENERAL: Appears in no distress, oriented, pleasant. Patient has been afebrile in the hospital stay. VITAL SIGNS: Blood pressure 138/94, pulse 76, respirations 18, O2 sat 97%. SKIN: Examination shows hyperpigmented areas in lower extremities from prior episodes of thromboembolism. Peripheral IV access. No Morris catheter. No lymphadenopathy. HEENT: Ocular movements are conjugate. Sclerae white. Pupils are equal. Carotid normal. Numerous teeth in place with some decay. NECK: Supple, no jugular venous distention. LUNGS: With fairly clear breath sounds, a few faint inspiratory crackles at the bases. HEART: S1, S2, regular rate. No S3 or S4. ABDOMEN: Soft, but distended, not tender. No ascites. No bladder distention. EXTREMITIES: Moves all extremities equally. There is 1+ edema in lower extremities. NEUROLOGIC: Cognitive function appears to be intact. Nonfocal. LABORATORY DATA: White cell count was 4.9, hemoglobin 12, MCV 88, platelets 63, 000, 78% neutrophils. INR 1.8 and creatinine 1.94, which is close to his baseline, if not a little better. Liver profile normal except for alkaline phosphatase 325. CK 29, albumin 3.4. Testosterone 229. Chest CT completed on admission with interstitial and ground-glass opacities throughout the lungs bilaterally, more in lower lobes. ASSESSMENT: 1. Thromboembolism, secondary to an anticardiolipin antibody syndrome. 2. Renal insufficiency, chronic. 3. Cardiomyopathy. 4. Chest pain radiating from the back towards the bilateral lateral chest wall anteriorly. DISCUSSION: Patient basically came to the hospital because of the chest wall pain. The pattern is somewhat suggestive of radiculopathy. May have to image his thoracic spine to see if he has an area of compression of some sort of inflammatory process. The lung findings are probably residual from the recent admission and more likely to represent interstitial edema rather than pneumonia. We will check a procalcitonin to help determine that. I would continue with holding antimicrobial therapy at this point in time. MTDD
[2017-05-25] MEDS: Senokot S 8.6-50 MG TAB PO SCH ×2 (08:39→20:37)
[2017-05-25] MEDS: OXcarbazepine 300 MG TAB PO SCH ×2 (08:40→20:36)
[2017-05-25] MEDS: Timolol 0.5% Ophth Soln 5 ml Bottle EA EYE SCH ×2 (08:40→20:35)
[2017-05-25] MEDS: Colchicine 0.6 MG TAB PO PRN ×2 (08:41→20:36)
--- NOTE | 2017-05-25 08:46 | ULT ---
RIGHT UPPER QUADRANT ULTRASOUND: HISTORY: Abnormal LFTs. FINDINGS: The left lobe of the liver and pancreas are obscured due to overlying bowel gas. The visualized port ions of the liver are unremarkable. The gallbladder is distended with sludge. No shadowing calculi, gallbladder wall thickening, or pericholecystic fluid is seen. The common duct measures 3 mm in michelle meter. No right-sided hydronephrosis is seen. There is a 1.2 cm hypoechoic lesion arising from the right mid renal cortex which is stable since CT abdomen and pelvis of 01/01/16. No free fluid is seen in the Morison's pouch. The waist cutter reports a positive Davis's sign. IMPRESSION: 1. Gallbladder distention with sludge. 2. Positive Davis's sign per waist cutter. 3. If there is concern for acute cholecystitis, further evaluation with HIDA scan should be performe d. POS: OFF
[2017-05-25] MEDS: Acetaminophen 325 MG TAB PO PRN (13:09)
--- NOTE | 2017-05-25 14:45 | PDOC.PN ---
- Subjective Encounter Start Date: 05/25/17 Encounter Start Time: 12:30 -: old records requested/rev Pt seen and examined, chart reviewed in its entirety, this is my first visit with this patient No F/C, no N/V/D/C, no CP, no SOB abd pain only present when eating fatty foods or pushing on RUQ. no GI bleeding. U/S neg for stones, 10 point ROS performed and neg for all systems except as per HPI - Objective MAR Reviewed: Yes Vital Signs & Weight: Vital Signs (12 hours) Temp Pulse Resp BP BP Pulse Ox 05/25/17 11:15 97.6 F 92 16 103/65 92 L 05/25/17 07:40 97.4 F L 83 16 130/80 92 L 05/25/17 04:00 98.2 F 75 17 135/82 95 Weight Weight 283 lb 9.6 oz I&O: 05/24/17 05/25/17 05/26/17 06:59 06:59 06:59 Intake Total 200 500 Output Total 2125 700 Balance -1925 -200 Result Diagrams: 05/25/17 04:41 05/25/17 04:41 Radiology Reviewed by me: Yes EKG Reviewed by me: Yes Phys Exam - Physical Examination Constitutional: NAD HEENT: PERRLA, moist MMs, sclera anicteric, oral pharynx no lesions Neck: no nodes, no JVD, supple, full ROM Respiratory: no wheezing, no rales, no rhonchi, clear to auscultation bilateral Cardiovascular: RRR, no significant murmur, no rub Gastrointestinal: soft, non-tender, no distention, positive bowel sounds Musculoskeletal: pulses present, edema present Neurological: non-focal, normal sensation, moves all 4 limbs Lymphatic: no nodes Psychiatric: normal affect, A&O x 3 Skin: no rash, normal turgor, cap refill <2 seconds Dx/Plan (1) Acute on chronic kidney failure Code(s): N17.9 - ACUTE KIDNEY FAILURE, UNSPECIFIED; N18.9 - CHRONIC KIDNEY DISEASE, UNSPECIFIED Status: Acute Qualifiers: Acute renal failure type: unspecified Chronic kidney disease stage: stage 3 (moderate) Qualified Code(s): N17.9 - Acute kidney failure, unspecified; N18.3 - Chronic kidney disease, stage 3 (moderate); N18.3 - Chronic kidney disease, stage 3 (moderate) (2) Elevated LFTs Code(s): R79.89 - OTHER SPECIFIED ABNORMAL FINDINGS OF BLOOD CHEMISTRY Status : Acute Comment: hepatitis negative in the past (3) HTN (hypertension) Code(s): I10 - ESSENTIAL (PRIMARY) HYPERTENSION Status: Acute - Plan * . history of DVT - on coumadin subtherapeutic on admit. Abd pain - RUQ, with palpation. u/S neg for stones. HIDa ordered
[2017-05-25] MEDS ORDERED: WARFARIN PO PRN (15:22)
[2017-05-25] MEDS ORDERED: Warfarin Sodium 10 MG TAB PO SCH (17:00)
[2017-05-25] MEDS: Warfarin Sodium 7.5 MG TAB PO SCH (17:22)
[2017-05-25] MEDS: Zonisamide 100 MG CAP PO SCH (20:37)
[2017-05-26 04:48] LABS: INR-International Normal Ratio 2.5; Prothrombin Time 28.2 SEC (12.0-14.7)
[2017-05-26 04:59] LABS: ALT (SGPT) 44 U/L (8-55); AST (SGOT) 52 U/L (5-34); Albumin 3.3 g/dL (3.5-5.0); Alkaline Phosphatase 352 U/L (40-150); Anion Gap 17 mmol/L (10-20); BUN (Urea Nitrogen) 48 mg/dL (8.9-20.6); Bilirubin, Total 0.5 mg/dL (0.2-1.2); Calc. Creatinine Clearance 54 mL/min (70-130); Calcium 9.2 mg/dL (7.8-10.44); Carbon Dioxide 23 mmol/L (22-29); Chloride 97 mmol/L (98-107); Estimated GFR-MDRD 22; Globulin 3.5 g/dL (2.4-3.5); Glucose 100 mg/dL (70-105); Magnesium 2.2 mg/dL (1.6-2.6); Potassium 3.9 mmol/L (3.5-5.1); Protein, Total 6.8 g/dL (6.0-8.3); Sodium 133 mmol/L (136-145)
[2017-05-26 05:02] LABS: #Eosinphils 0.1 thou/uL (0.0-0.7); #Lymphocytes 0.8 thou/uL (1.20-3.40); #Monocytes 0.6 thou/uL (0.11-0.59); #Neutrophils 3.7 thou/uL (1.40-6.50); %Basophils 0.5 % (0.0-1.0); %Eosinophils 1.2 % (0.0-10.0); %Monocytes 11.2 % (0.0-10.0); Hemoglobin 11.4 g/dL (14.0-18.0); Mean Corpuscular HGB CONC 33.5 g/dL (32.0-36.0); Mean Corpuscular Volume 89.6 fl (80.0-94.0); Mean Platelet Volume 8.2 fL (7.4-10.4); Platelet Count 98 thou/uL (130-400); RBC Distribution Width 12.6 % (11.5-14.5); Red Blood Cell (RBC) Count 3.79 mill/uL (4.70-6.10); White Blood Cell (WBC) Count 5.3 thou/uL (4.8-10.8)
[2017-05-26] MEDS: Sodium Chloride 0.9% 1,000 ML IV SCH ×2 (10:35→21:31)
--- NOTE | 2017-05-26 13:17 | CON ---
DATE OF CONSULTATION: 05/26/2017 NEPHROLOGY CONSULTATION REASON FOR CONSULTATION: Acute renal failure. HISTORY OF PRESENTING ILLNESS: This is a very pleasant 46-year-old gentleman who presented to the [facility] few days ago with a history of chest pain. The patient had a baseline creatinine of 1.9 in th e past that had peaked up to 2.5 and now has gradually worsened to 2.7 and 3.1. The patient did not receive any nephrotoxic medication. The patient at this time denies any nausea, vomiting or chest pa in. PAST MEDICAL HISTORY: Include seizure disorder, chronic kidney disease, DVT, pulmonary embolism, his tory of hypertension, history of [place] filter, history of antiphospholipid antibody, history of bilateral venous stasis, congestive heart failure, heart catheterization, history of brain surgery pr ocedure. HOME MEDICATIONS: List reviewed. HOSPITAL MEDICATIONS: List reviewed. ALLERGIES: Reviewed. REVIEW OF SYSTEMS: A 15 point review of systems was performed and was negative except for positives noted above. GENERAL: Weakness- HEAD: Headache- NECK: No swelling or lumps. NOSE: No epistaxis or discharge. EYES: No diplopia or pain. 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 NEUROPSYCHIATIC SYSTEMS: No suicidal ideation. No ideation. SKIN: Denies any rash or ulcer. CONSTITUTIONAL: No fever or chills. PHYSICAL EXAMINATION: GENERAL: Patient is awake, alert. VITAL SIGNS: Afebrile, pulse 82, breathing at 16, blood pressure 136/85. HEAD/NECK: Normocephalic. Atraumatic. EYES: EOMI. No deformity. EARS: Clear. No ulcers. NOSE: Intact. No lesions. MOUTH: Clear. No discharge. THROAT: Clear. No exudate. LUNGS: Clear. No crackles. CARDIAC: S1, S2. No rub. ABDOMEN: Benign. BS+. GENITALIA/RECTUM: Morris absent. BACK/EXTREMITIES: Lower extremities have edema. NEUROLOGICAL: Alert and motor intact. SKIN: Rash- Bruise- LYMPHATICS: Edema- Ulcer- LABORATORY DATA: Show creatinine 3.1. ASSESSMENT AND RECOMMENDATIONS: 1. Acute kidney disease with chronic kidney disease, most likely due to decreased effective arterial blood volume. Would recommend increased hydration and follow renal function closely. 2. Hypertension, stable. 3. Anemia, stable. 4. Medications based on glomerular filtration rate are appropriate. No indication for dialysis. We will consider renal imaging.
[2017-05-26] MEDS: Senokot S 8.6-50 MG TAB PO SCH ×2 (13:25→21:33)
[2017-05-26] MEDS: OXcarbazepine 300 MG TAB PO SCH ×2 (13:25→21:32)
[2017-05-26] MEDS: Timolol 0.5% Ophth Soln 5 ml Bottle EA EYE SCH ×2 (13:27→17:00)
--- NOTE | 2017-05-26 14:24 | PDOC.PN ---
- Subjective Encounter Start Date: 05/26/17 Encounter Start Time: 11:45 Abd pain about the same, tender to palpation. PT hungry. HIDA is pending. No F/C, no N/V/d/C. urinating okay, no new compalints. Explained to pt his previosu presentaiton for fluid overload and diuresis, and now being on the 'too dry'; side and needing fluids back. 10 point ROS performed and neg for all systems except as above - Objective MAR Reviewed: Yes Vital Signs & Weight: Vital Signs (12 hours) Temp Pulse Resp BP BP Pulse Ox 05/26/17 13:27 82 05/26/17 06:55 98.3 F 82 16 136/85 96 05/26/17 03:54 97.9 F 77 18 124/76 94 L Weight Weight 281 lb 12.8 oz I&O: 05/25/17 05/26/17 05/27/17 06:59 06:59 06:59 Intake Total 500 360 Output Total 700 700 Balance -200 -340 Result Diagrams: 05/27/17 07:40 05/27/17 07:44 EKG Reviewed by me: Yes Phys Exam - Physical Examination Constitutional: NAD HEENT: PERRLA, moist MMs, sclera anicteric, oral pharynx no lesions Neck: no nodes, no JVD, supple, full ROM Respiratory: no wheezing, no rales, no rhonchi, clear to auscultation bilateral Cardiovascular: RRR, no rub murmur stable Gastrointestinal: soft, no distention, positive bowel sounds RUQ TTP deeply Musculoskeletal: pulses present, edema present Neurological: non-focal, normal sensation, moves all 4 limbs Lymphatic: no nodes Psychiatric: normal affect, A&O x 3 Skin: no rash, normal turgor, cap refill <2 seconds Dx/Plan (1) Acute on chronic kidney failure Code(s): N17.9 - ACUTE KIDNEY FAILURE, UNSPECIFIED; N18.9 - CHRONIC KIDNEY DISEASE, UNSPECIFIED Status: Acute Qualifiers: Acute renal failure type: unspecified Chronic kidney disease stage: stage 3 (moderate) Qualified Code(s): N17.9 - Acute kidney failure, unspecified; N18.3 - Chronic kidney disease, stage 3 (moderate); N18.3 - Chronic kidney disease, stage 3 (moderate) (2) Elevated LFTs Code(s): R79.89 - OTHER SPECIFIED ABNORMAL FINDINGS OF BLOOD CHEMISTRY Status : Acute Comment: hepatitis negative in the past (3) HTN (hypertension) Code(s): I10 - ESSENTIAL (PRIMARY) HYPERTENSION Status: Chronic Qualifiers: Hypertension type: essential hypertension Qualified Code(s): I10 - Essential (primary) hypertension (4) ELIZABETH (acute kidney injury) Code(s): N17.9 - ACUTE KIDNEY FAILURE, UNSPECIFIED Status: Acute (5) History of pulmonary embolism Code(s): Z86.711 - PERSONAL HISTORY OF PULMONARY EMBOLISM Status: Acute (6) Hyponatremia Code(s): E87.1 - HYPO-OSMOLALITY AND HYPONATREMIA Status: Acute (7) Seizure Code(s): R56.9 - UNSPECIFIED CONVULSIONS Status: Acute Comment: s/p brain surgery for uncontrolled seizure 7 years ago (8) Chronic anticoagulation Code(s): Z79.01 - [facility] (CURRENT) USE OF ANTICOAGULANTS Status: Chronic (9) Chronic deep vein thrombosis (DVT) Code(s): I82.509 - CHRONIC EMBOLISM AND THOMBOS UNSP DEEP VN UNSP LOW EXTRM Status: Chronic Qualifiers: DVT location: lower extremity Laterality: bilateral (10) Gout Code(s): M10.9 - GOUT, UNSPECIFIED Status: Chronic Qualifiers: Gout site: hand (11) Seizure disorder Code(s): G40.909 - EPILEPSY, UNSP, NOT INTRACTABLE, WITHOUT STATUS EPILEPTICUS Status: Chronic - Plan cont current plan of care, out of bed/ambulate * . IV fluids, follow up on HIDA, NPO until HIDA done. AM labs
--- NOTE | 2017-05-26 15:44 | NM ---
NUCLEAR MEDICINE HEPATOBILIARY SCAN: DATE: 05/26/17. HISTORY: A 46-year-old male with distended gallbladder and positive Davis's sign (right upper quadrant tender ness). TECHNIQUE: Pretreatment with 2.5 mcg of Kinevac 30 minutes prior to the study. [id number] dose: 4.6 mCi. Kinevac (CCK analog) dose: 2.5 mcg. [id number] injected IV. Dynamic anterior scintigraphy of abdomen for 1 hour. Kinevac injected. Additional dynamic anterior scintigraphy of abdomen. Counts obtained over gallbladder. Time-activit y curve generated. FINDINGS: There is normal uptake and washout of radiopharmaceutical agent from the liver. The gallbladder fill s normally. Bowel activity is visualized at an appropriate time. The gallbladder ejection fraction is normal: 92%. IMPRESSION: Normal. jn [] POS: [facility]
[2017-05-26] MEDS: Warfarin Sodium 7.5 MG TAB PO SCH (17:01)
[2017-05-26] MEDS: Colchicine 0.6 MG TAB PO PRN (21:33)
[2017-05-26] MEDS: Zonisamide 100 MG CAP PO SCH (21:33)
[2017-05-27 05:39] LABS: INR-International Normal Ratio 2.6; Prothrombin Time 29.2 SEC (12.0-14.7)
[2017-05-27 08:28] LABS: Chloride 102 mmol/L (98-107); Potassium 3.9 mmol/L (3.5-5.1); Sodium 136 mmol/L (136-145)
[2017-05-27 08:29] LABS: Calcium 8.9 mg/dL (7.8-10.44); Glucose 86 mg/dL (70-105)
[2017-05-27 08:31] LABS: Anion Gap 12 mmol/L (10-20); Carbon Dioxide 26 mmol/L (22-29)
[2017-05-27 08:33] LABS: BUN (Urea Nitrogen) 35 mg/dL (8.9-20.6); Calc. Creatinine Clearance 83 mL/min (70-130); Estimated GFR-MDRD 36
[2017-05-27] MEDS: Timolol 0.5% Ophth Soln 5 ml Bottle EA EYE SCH ×2 (09:25→21:02)
[2017-05-27] MEDS: Colchicine 0.6 MG TAB PO PRN ×2 (09:25→21:02)
[2017-05-27] MEDS: OXcarbazepine 300 MG TAB PO SCH ×2 (09:25→21:02)
[2017-05-27] MEDS: Senokot S 8.6-50 MG TAB PO SCH ×3 (09:25→21:02)
[2017-05-27 10:26] LABS: #Lymphocytes 0.8 thou/uL (1.20-3.40); #Monocytes 0.4 thou/uL (0.11-0.59); #Neutrophils 2.4 thou/uL (1.40-6.50); %Basophils 0.1 % (0.0-1.0); %Eosinophils 0.6 % (0.0-10.0); %Lymphocytes 20.9 % (21.0-51.0); %Monocytes 11.8 % (0.0-10.0); %Neutrophils 66.5 % (42.0-75.0); Hemoglobin 11.2 g/dL (14.0-18.0); Mean Corpuscular HGB CONC 32.3 g/dL (32.0-36.0); Mean Corpuscular Volume 89.7 fl (80.0-94.0); Mean Platelet Volume 8.7 fL (7.4-10.4); Platelet Count 119 thou/uL (130-400); RBC Distribution Width 12.5 % (11.5-14.5); Red Blood Cell (RBC) Count 3.85 mill/uL (4.70-6.10); White Blood Cell (WBC) Count 3.7 thou/uL (4.8-10.8)
[2017-05-27 10:44] LABS: Albumin 3.2 g/dL (3.5-5.0)
[2017-05-27 10:45] LABS: Magnesium 1.9 mg/dL (1.6-2.6)
[2017-05-27 10:47] LABS: Globulin 3.4 g/dL (2.4-3.5); Protein, Total 6.6 g/dL (6.0-8.3)
[2017-05-27 10:48] LABS: Bilirubin, Total 0.5 mg/dL (0.2-1.2)
[2017-05-27 10:49] LABS: Alkaline Phosphatase 286 U/L (40-150)
[2017-05-27 10:52] LABS: ALT (SGPT) 35 U/L (8-55); AST (SGOT) 34 U/L (5-34)
--- NOTE | 2017-05-27 10:57 | PRG ---
DATE OF SERVICE: 05/27/2017 SUBJECTIVE: This is a 46-year-old gentleman being seen for acute kidney injury. The patient denies any nausea, vomiting, or chest pain. PHYSICAL EXAMINATION: GENERAL: The patient was alert. VITAL SIGNS: Afebrile, pulse 77, breathing 16, blood pressure 141/83. HEAD/NECK: Normocephalic. Atraumatic. EYES: EOMI. No deformity. EARS: Clear. No ulcers. NOSE: Intact. No lesions. MOUTH: Clear. No discharge. THROAT: Clear. No exudate. LUNGS: Clear. No crackles. CARDIAC: S1, S2. No rub. ABDOMEN: Benign. BS+. GENITALIA/RECTUM: Morris absent. BACK/EXTREMITIES: Edema 0+ Ulcer- NEUROLOGICAL: Alert and motor intact. SKIN: Rash- Bruise- LYMPHATICS: Edema- Ulcer- LABORATORY DATA: Show hemoglobin 11.5, creatinine 2.0. ASSESSMENT AND RECOMMENDATIONS: 1. Acute kidney injury, improved. 2. Hypertension, stable. 3. Anemia, stable. I would recommend stopping IV fluids.
[2017-05-27] MEDS: Acetaminophen 325 MG TAB PO PRN (11:26)
[2017-05-27] MEDS: Sodium Chloride 0.9% 1,000 ML IV SCH (13:16)
--- NOTE | 2017-05-27 14:48 | PDOC.PN ---
- Subjective Encounter Start Date: 05/27/17 Encounter Start Time: 09:20 Afebrile, abs less tender. No F/C, no N/V/d/C. HIDA done, normal. diet advaned. Labs ordered and reviewed Cr imrpoved, Na normal. `10 point ROS performed and neg for all systems except as per HPI - Objective MAR Reviewed: Yes Vital Signs & Weight: Vital Signs (12 hours) Temp Pulse Resp BP Pulse Ox 05/27/17 08:00 97.9 F 77 16 96 05/27/17 04:00 97.9 F 77 16 145/88 H 96 Weight Weight 281 lb 8 oz I&O: 05/26/17 05/27/17 05/28/17 06:59 06:59 06:59 Intake Total 360 2155 Output Total 700 1475 Balance -340 680 Result Diagrams: 05/27/17 07:40 05/27/17 07:44 Radiology Reviewed by me: Yes EKG Reviewed by me: Yes Phys Exam - Physical Examination Constitutional: NAD HEENT: PERRLA, moist MMs, sclera anicteric, oral pharynx no lesions Neck: no nodes, no JVD, supple, full ROM Respiratory: no wheezing, no rales, no rhonchi, clear to auscultation bilateral Cardiovascular: RRR, no significant murmur, no rub Gastrointestinal: soft, non-tender, no distention, positive bowel sounds Musculoskeletal: pulses present, edema present Neurological: non-focal, normal sensation, moves all 4 limbs Lymphatic: no nodes Psychiatric: normal affect, A&O x 3 Skin: no rash, normal turgor, cap refill <2 seconds Dx/Plan (1) Acute on chronic kidney failure Code(s): N17.9 - ACUTE KIDNEY FAILURE, UNSPECIFIED; N18.9 - CHRONIC KIDNEY DISEASE, UNSPECIFIED Status: Acute Qualifiers: Acute renal failure type: unspecified Chronic kidney disease stage: stage 3 (moderate) Qualified Code(s): N17.9 - Acute kidney failure, unspecified; N18.3 - Chronic kidney disease, stage 3 (moderate); N18.3 - Chronic kidney disease, stage 3 (moderate) (2) Elevated LFTs Code(s): R79.89 - OTHER SPECIFIED ABNORMAL FINDINGS OF BLOOD CHEMISTRY Status : Acute Comment: hepatitis negative in the past (3) HTN (hypertension) Code(s): I10 - ESSENTIAL (PRIMARY) HYPERTENSION Status: Chronic Qualifiers: Hypertension type: essential hypertension Qualified Code(s): I10 - Essential (primary) hypertension (4) ELIZABETH (acute kidney injury) Code(s): N17.9 - ACUTE KIDNEY FAILURE, UNSPECIFIED Status: Acute Comment: Cr down to 2.02. hold fluids now. Renal following (5) History of pulmonary embolism Code(s): Z86.711 - PERSONAL HISTORY OF PULMONARY EMBOLISM Status: Acute (6) Hyponatremia Code(s): E87.1 - HYPO-OSMOLALITY AND HYPONATREMIA Status: Acute (7) Seizure Code(s): R56.9 - UNSPECIFIED CONVULSIONS Status: Acute Comment: s/p brain surgery for uncontrolled seizure 7 years ago (8) Chronic anticoagulation Code(s): Z79.01 - [facility] (CURRENT) USE OF ANTICOAGULANTS Status: Chronic (9) Chronic deep vein thrombosis (DVT) Code(s): I82.509 - CHRONIC EMBOLISM AND THOMBOS UNSP DEEP VN UNSP LOW EXTRM Status: Chronic Qualifiers: DVT location: lower extremity Laterality: bilateral (10) Gout Code(s): M10.9 - GOUT, UNSPECIFIED Status: Chronic Qualifiers: Gout site: hand (11) Seizure disorder Code(s): G40.909 - EPILEPSY, UNSP, NOT INTRACTABLE, WITHOUT STATUS EPILEPTICUS Status: Chronic - Plan * .
[2017-05-27] MEDS: Warfarin Sodium 7.5 MG TAB PO SCH (17:32)
[2017-05-27] MEDS: Zonisamide 100 MG CAP PO SCH (21:02)
[2017-05-28 05:32] LABS: INR-International Normal Ratio 3.1; Prothrombin Time 33.2 SEC (12.0-14.7)
[2017-05-28 05:58] LABS: ALT (SGPT) 32 U/L (8-55); AST (SGOT) 31 U/L (5-34); Albumin 3.2 g/dL (3.5-5.0); Alkaline Phosphatase 253 U/L (40-150); Anion Gap 14 mmol/L (10-20); BUN (Urea Nitrogen) 30 mg/dL (8.9-20.6); Bilirubin, Total 0.4 mg/dL (0.2-1.2); Calc. Creatinine Clearance 96 mL/min (70-130); Calcium 9.1 mg/dL (7.8-10.44); Carbon Dioxide 21 mmol/L (22-29); Chloride 106 mmol/L (98-107); Estimated GFR-MDRD 42; Globulin 3.5 g/dL (2.4-3.5); Glucose 94 mg/dL (70-105); Magnesium 1.9 mg/dL (1.6-2.6); Potassium 4.2 mmol/L (3.5-5.1); Protein, Total 6.7 g/dL (6.0-8.3); Sodium 137 mmol/L (136-145)
[2017-05-28 07:33] LABS: Hemoglobin 11.4 g/dL (14.0-18.0); Mean Corpuscular HGB CONC 32.8 g/dL (32.0-36.0); Mean Corpuscular Hemoglobin 30.5 pg (27.0-31.0); Mean Corpuscular Volume 92.8 fl (80.0-94.0); Mean Platelet Volume 8.2 fL (7.4-10.4); Platelet Count 133 thou/uL (130-400); RBC Distribution Width 12.7 % (11.5-14.5); Red Blood Cell (RBC) Count 3.75 mill/uL (4.70-6.10)
[2017-05-28 08:23] LABS: Band 1 % (5-11); Lymphocytes 24 % (21-51); MDiff Complete? YES; Monocytes 8 % (0-10); Neutrophil 67 % (42-75); RBC Morphology Normal
--- NOTE | 2017-05-28 08:23 | PRG ---
DATE OF SERVICE: 05/28/2017 SUBJECTIVE: A 46-year-old gentleman being seen for acute kidney injury. The patient denies any naus ea, vomiting or chest pain. Medication list reviewed. PHYSICAL EXAMINATION: GENERAL: Patient is awake, alert. VITAL SIGNS: Afebrile, pulse 70, breathing at 16, blood pressure 157/71. OBJECTIVE: See above. Awake, alert, in no acute distress. GENERAL APPEARANCE AND MENTAL STATUS: Fair. HEAD/NECK: Normocephalic. Atraumatic. EYES: EOMI. No deformity. EARS: Clear. No ulcers. NOSE: Intact. No lesions. MOUTH: Clear. No discharge. THROAT: Clear. No exudate. LUNGS: Clear. No crackles. CARDIAC: S1, S2. No rub. ABDOMEN: Benign. BS+. GENITALIA/RECTUM: Morris absent. BACK/EXTREMITIES: Edema 0+ Ulcer- NEUROLOGICAL: Alert and motor intact. SKIN: Rash- Bruise- LYMPHATICS: Edema- Ulcer- LABORATORY: Creatinine 1.7. ASSESSMENT AND RECOMMENDATIONS: 1. Acute kidney injury, improved. 2. Chronic kidney disease stage 3, stable. 3. Hypertension, stable. 4. Anemia, stable. We will sign off on this patient. Please reconsult as needed.
[2017-05-28] MEDS: OXcarbazepine 300 MG TAB PO SCH (08:40)
[2017-05-28] MEDS: Timolol 0.5% Ophth Soln 5 ml Bottle EA EYE SCH (08:40)
[2017-05-28] MEDS: Senokot S 8.6-50 MG TAB PO SCH (08:40)
[2017-05-28] MEDS: Colchicine 0.6 MG TAB PO PRN (08:42)
--- NOTE | 2017-05-28 13:06 | PDOC.PN ---
- Subjective Encounter Start Date: 05/28/17 Encounter Start Time: 10:05 Pt still with L>R back spasms in lumbar area, no F/C, no N/V/D/c. PC replaced on same side, alternate site yesterday evening, HD post placment without prolems. Repeat BCx with HD still negative, tolerating Vanc and Gent without problems. 10 point ROS performed and neg for all systems except as per HPI - Objective MAR Reviewed: Yes Vital Signs & Weight: Vital Signs (12 hours) Temp Pulse Resp BP Pulse Ox 05/28/17 08:40 83 05/28/17 08:00 97.9 F 81 18 159/90 H 96 05/28/17 04:00 97.3 F L 70 15 157/95 H 96 Weight Weight 281 lb 11.2 oz I&O: 05/27/17 05/28/17 05/29/17 06:59 06:59 06:59 Intake Total 2155 1850 Output Total 1475 1825 Balance 680 25 Result Diagrams: 05/28/17 04:17 05/28/17 04:17 Radiology Reviewed by me: Yes EKG Reviewed by me: Yes Phys Exam - Physical Examination Constitutional: NAD HEENT: PERRLA, moist MMs, sclera anicteric, oral pharynx no lesions Neck: no nodes, no JVD, supple, full ROM Respiratory: no wheezing, no rales, no rhonchi, clear to auscultation bilateral Cardiovascular: RRR, no significant murmur Dx/Plan (1) Acute on chronic kidney failure Code(s): N17.9 - ACUTE KIDNEY FAILURE, UNSPECIFIED; N18.9 - CHRONIC KIDNEY DISEASE, UNSPECIFIED Status: Acute Qualifiers: Acute renal failure type: unspecified Chronic kidney disease stage: stage 3 (moderate) Qualified Code(s): N17.9 - Acute kidney failure, unspecified; N18.3 - Chronic kidney disease, stage 3 (moderate); N18.3 - Chronic kidney disease, stage 3 (moderate) (2) Elevated LFTs Code(s): R79.89 - OTHER SPECIFIED ABNORMAL FINDINGS OF BLOOD CHEMISTRY Status : Acute Comment: hepatitis negative in the past (3) HTN (hypertension) Code(s): I10 - ESSENTIAL (PRIMARY) HYPERTENSION Status: Chronic Qualifiers: Hypertension type: essential hypertension Qualified Code(s): I10 - Essential (primary) hypertension (4) ELIZABETH (acute kidney injury) Code(s): N17.9 - ACUTE KIDNEY FAILURE, UNSPECIFIED Status: Acute Comment: Cr down to 2.02. hold fluids now. Renal following (5) History of pulmonary embolism Code(s): Z86.711 - PERSONAL HISTORY OF PULMONARY EMBOLISM Status: Acute (6) Hyponatremia Code(s): E87.1 - HYPO-OSMOLALITY AND HYPONATREMIA Status: Acute (7) Seizure Code(s): R56.9 - UNSPECIFIED CONVULSIONS Status: Acute Comment: s/p brain surgery for uncontrolled seizure 7 years ago (8) Chronic anticoagulation Code(s): Z79.01 - [employer] (CURRENT) USE OF ANTICOAGULANTS Status: Chronic (9) Chronic deep vein thrombosis (DVT) Code(s): I82.509 - CHRONIC EMBOLISM AND THOMBOS UNSP DEEP VN UNSP LOW EXTRM Status: Chronic Qualifiers: DVT location: lower extremity Laterality: bilateral (10) Gout Code(s): M10.9 - GOUT, UNSPECIFIED Status: Chronic Qualifiers: Gout site: hand (11) Seizure disorder Code(s): G40.909 - EPILEPSY, UNSP, NOT INTRACTABLE, WITHOUT STATUS EPILEPTICUS Status: Chronic - Plan * .
--- NOTE | 2017-05-28 15:17 | DIS ---
DATE OF ADMISSION: 05/23/2017 CHIEF COMPLAINT: Chest discomfort. HISTORY OF PRESENT ILLNESS: Mr. Boo is a 46-year-old white male with history of seizure disord er, chronic kidney disease stage 3, DVT and PEs in the past and antiphospholipid syndrome and hyperte nsion on chronic warfarin. The patient was discharged on 05/22 from the hospital after several day s andra for acute respiratory failure and acute on chronic systolic congestive heart failure. He returned back to the hospital on 05/23 complaining of flank and chest pain. Workup in the emergency department showed a D-dimer 1.67, creatinine of 1.9 just above his normal bas beth and some infiltrate in both lower lung coburn. He was subsequently placed on admission and on Coumadin for subtherapeutic INR. Overnight 05/23-05/24, the patient continued to have right upper quadrant pain, but otherwise had no new complaints. His creatinine was slightly increased to 1.94 and sodium was 130. A CT scan of the chest showed ground glass opacities bilaterally, ID was consulted. The patient was seen by Dr. Kenney and felt this was not infectious. Recommend holding antibiotics. The patient was continued on zoni samide and his regular labs. On 05/25/2017, I took the case over. Ultrasound of the abdomen ordered by Dr. Amador the day prior sh owed gallbladder distention with sludge and a positive Davis sign. The patient had no stones noted. I did request a HIDA scan which was done in 05/26 that showed normal gallbladder, ejection fraction 9 2% and no reproduction of his symptoms. Unfortunately, his creatinine continued to increase. Dr. Frances yu was consulted. I felt the patient was dehydrated clinically secondary to congestive heart failure meds and creatinine was at 2.78 with a BUN of 34. He was started on IV fluids at 100 mL per hour, L asix was held. He was seen by Dr. Dinh on 05/26, who agreed with the interventions and continue to follow. On 05/27, the patient was feeling better. Labs were improved and creatinine was down to 2.02. IV fl uids were stopped and the patient was continued to be watched. He was advanced to regular diet which he was tolerating. On 05/28, his pain was almost resolved with occasional flares with bowel movements, but improvement t hereafter. Creatinine was down to 1.7, which is the best he has had in some time. He was resumed on his home medication, discharged home with outpatient followup. PHYSICAL EXAMINATION: The patient was seen and examined on day of discharge. DISCHARGE PLAN: Disposition was discussed with the patient face to face at the bedside. DISCHARGE MEDICATIONS: 1. Colchicine 0.6 mg p.o. b.i.d. p.r.n. 2. Lasix 40 mg p.o. daily. 3. Toprol-XL 50 mg daily. 4. Trileptal 600 mg p.o. b.i.d. 5. Timolol 0.5% one drop each eye b.i.d. 6. Warfarin 6 mg p.o. q.p.m. New prescription sent. 7. Zonisamide 100 mg p.o. at bedtime. New prescription sent. FOLLOWUP APPOINTMENTS: 1. Primary care physician, Dr. Rossana Blanc within a week. 2. Nephrology, Dr. De La Rosa at the patient's request within a week. 3. Cardiology in 3-4 weeks. Follow up with the Coumadin clinic. The patient will follow up with the CHF Clinic. DISCHARGE DIET: Renal, heart healthy recommended, 1500 mL fluid restriction. DISCHARGE ACTIVITY: As tolerated per cardiopulmonary limits. DISCHARGE CONDITION: Stable. DISPOSITION: Being discharged home via private vehicle.
[2017-05-28 16:05] VITALS: BP 140/80; TEMP 98
--- NOTE | 2017-05-29 15:16 | EKG ---
Test Reason : Blood Pressure : / mmHG Vent. Rate : 086 BPM Atrial Rate : 086 BPM P-R Int : 156 ms QRS Dur : 118 ms QT Int : 408 ms P-R-T Axes : 028 008 089 degrees QTc Int : 488 ms Normal sinus rhythm Inferior infarct , age undetermined Abnormal ECG ST depression I, aVL, Q III, aVF Similar to 05/14/2017 Confirmed by ULI HERNANDEZ ([id number]), dictionary editor YUNIEL HESTER ([id number]) on 05/29/2017 3:16:05 PM Referred By: Confirmed By:ULI HERNANDEZ
[2017-05-29] MEDS ORDERED: Warfarin Sodium 3 MG TAB PO SCH (17:00)
== END 2017-05-28 15:58 | disposition home or self-care (01) | DRG 313 ==
LOC: ERS 14:34 → 2NO 19:52
PROVIDERS: ADMIT Internal Medicine; ATTEND Internal Medicine
PROC: 5A09357 Assistance with Respiratory Ventilation, Less than 24 Consecutive Hours, Continuous Positive Airway Pressure (ICD-10-PCS; principal; 2017-05-14)
DX: R07.89 Other chest pain (principal); J96.01 Acute respiratory failure with hypoxia; J18.9 Pneumonia, unspecified organism; D68.61 Antiphospholipid syndrome; N17.9 Acute kidney failure, unspecified; I50.22 Chronic systolic (congestive) heart failure; I13.0 Hypertensive heart and chronic kidney disease with heart failure and stage 1 through stage 4 chronic kidney disease, or unspecified chronic kidney disease; E87.1 Hypo-osmolality and hyponatremia; I42.9 Cardiomyopathy, unspecified; I82.503 Chronic embolism and thrombosis of unspecified deep veins of lower extremity, bilateral; E87.8 Other disorders of electrolyte and fluid balance, not elsewhere classified; N18.3 Chronic kidney disease, stage 3 (moderate); Z79.01 Long term (current) use of anticoagulants; Z86.711 Personal history of pulmonary embolism; R10.11 Right upper quadrant pain; E86.0 Dehydration; T50.1X5A Adverse effect of loop [high-ceiling] diuretics, initial encounter; M10.9 Gout, unspecified; D64.9 Anemia, unspecified; G40.909 Epilepsy, unspecified, not intractable, without status epilepticus; R74.8 Abnormal levels of other serum enzymes; I08.1 Rheumatic disorders of both mitral and tricuspid valves; E66.9 Obesity, unspecified; Z68.34 Body mass index [BMI] 34.0-34.9, adult; Z95.828 Presence of other vascular implants and grafts; D63.1 Anemia in chronic kidney disease; J42 Unspecified chronic bronchitis; Z88.5 Allergy status to narcotic agent; Z88.0 Allergy status to penicillin; T45.511A Poisoning by anticoagulants, accidental (unintentional), initial encounter
CPT/HCPCS: 36415; 71045; 71046; 71250; 74176; 76705; 78227; 80048; 80053; 80183; 81003; 81015; 82330; 82435; 82436; 82533; 82550; 82553; 82803; 83605; 83690; 83735; 83880; 83930; 83935; 84132; 84133; 84145; 84270; 84295; 84300; 84403; 84443; 84484; 85014; 85018; 85025; 85049; 85379; 85610; 85730; 87040; 87070; 87205; 87804; 93005; 93306; 93798; 94660; 95816; 95819; 96365; 96374; 96375; 99211; J2270; A4216; A9537; G0463; J0696; J1940; J1956; J3370

== ENCOUNTER 2018-01-24 03:36 | Inpatient (IN) | payer MEDICARE ==
[2018-01-24 04:22] LABS: #Eosinphils 0.1 thou/uL (0.0-0.7); #Lymphocytes 0.9 thou/uL (1.20-3.40); #Monocytes 0.6 thou/uL (0.11-0.59); #Neutrophils 4.6 thou/uL (1.40-6.50); %Basophils 0.6 % (0.0-1.0); %Eosinophils 1.1 % (0.0-10.0); %Lymphocytes 13.7 % (21.0-51.0); %Monocytes 10.4 % (0.0-10.0); %Neutrophils 74.3 % (42.0-75.0); Hemoglobin 12.9 g/dL (14.0-18.0); Mean Corpuscular HGB CONC 33.2 g/dL (32.0-36.0); Mean Corpuscular Hemoglobin 29.5 pg (27.0-31.0); Mean Corpuscular Volume 88.9 fL (78.0-98.0); Platelet Count 57 thou/uL (130-400); RBC Distribution Width 12.5 % (11.5-14.5); Red Blood Cell (RBC) Count 4.38 mill/uL (4.70-6.10); White Blood Cell (WBC) Count 6.2 thou/uL (4.8-10.8)
[2018-01-24] MEDS ORDERED: Morphine 4 MG/ML VIAL ONE ×2 (04:32→07:09)
[2018-01-24 04:35] LABS: ALT (SGPT) 34 U/L (8-55); AST (SGOT) 27 U/L (5-34); Albumin 3.9 g/dL (3.5-5.0); Alkaline Phosphatase 158 U/L (40-150); Anion Gap 18 mmol/L (10-20); BUN (Urea Nitrogen) 21 mg/dL (8.9-20.6); Bilirubin, Total 1.1 mg/dL (0.2-1.2); Calc. Creatinine Clearance 0 mL/min (70-130); Calcium 9.9 mg/dL (7.8-10.44); Carbon Dioxide 20 mmol/L (22-29); Chloride 100 mmol/L (98-107); Estimated GFR-MDRD 36; Glucose 117 mg/dL (70-105); Lipase 20 U/L (8-78); Magnesium 1.9 mg/dL (1.6-2.6); Potassium 4.6 mmol/L (3.5-5.1); Protein, Total 7.9 g/dL (6.0-8.3); Sodium 133 mmol/L (136-145)
[2018-01-24 04:38] LABS: CKMB 0.5 ng/mL (0-6.6); Troponin I 0.047 ng/mL (< 0.028)
[2018-01-24 04:44] LABS: INR-International Normal Ratio 1.3
[2018-01-24 04:46] LABS: PTT 110.7 SEC (22.9-36.1)
[2018-01-24 04:52] LABS: D-Dimer Test 2.78 *mcg/mL (0.27-0.43)
[2018-01-24 06:55] LABS: Bilirubin Negative (Negative); Blood, Urine Trace (Negative); Clarity CLEAR (Clear); Glucose, Urine (Dipstick) Negative (Negative); Leukocyte Negative (Negative); Nitrite Negative (Negative); Protein, Urine (Dipstick) 100 mg/dL (Neg-Trace); Specific Gravity, Urine 1.005 (1.002-1.036); Urobilinogen 0.2 mg/dL (0.2-1.0); pH, Urine 7.5 (5.0-9.0)
[2018-01-24 06:58] LABS: Bacteria/HPF None Seen HPF (None Seen); Hyaline Casts/LPF 0-3 HYALINE CAST LPF (0-3 Hyaline); RBC/HPF 0-3 HPF (0-3); Squamous Epithelial None Seen HPF (0-3); WBC/HPF 0-3 HPF (0-3)
[2018-01-24] MEDS ORDERED: Enoxaparin Sodium 100 MG/ML SYRINGE ONE (07:10)
[2018-01-24] MEDS ORDERED: Enoxaparin Sodium 30 MG/0.3 ML SYRINGE ONE ×2 (07:10→07:11)
[2018-01-24 07:42] LABS: Troponin I 0.065 ng/mL (< 0.028)
--- NOTE | 2018-01-24 08:22 | ULT ---
GALLBLADDER ULTRASOUND: History: 47-year-old male with history of chest pain and abdominal pain. Comparison: 05-25-17 FINDINGS: Gallbladder wall is thickened. No evidence for gallstones. Common bile duct and intrahepatic ducts ar e not dilated. Generalized right renal cortical thinning without hydronephrosis. Visualized pancreas is unremarkable although mostly obscured. IMPRESSION: Gallbladder wall thickening without overt gallstones. No ductal dilatation. If there is concern for a cute cholecystitis, follow up non-emergent Nuclear Medicine hepatobiliary scan is suggested. POS: [facility]
[2018-01-24] MEDS ORDERED: Heparin 10,000 UNITS/ 10 ML VIAL SLOW IVP SCH (10:15)
[2018-01-24 10:26] LABS: Troponin I 0.065 ng/mL (< 0.028)
[2018-01-24 10:42] LABS: Hemoglobin 12.4 g/dL (14.0-18.0); Platelet Count 54 thou/uL (130-400)
--- NOTE | 2018-01-24 10:44 | PDOC.EVN ---
Event Note - Event Note Event Note: h&p dictated #[id number]
--- NOTE | 2018-01-24 10:58 | CT ---
PRELIMINARY REPORT/[facility]/EMERGENTY AFTER-HOURS PROCEDURE CT Chest Without Intravenous Contrast EXAM DATE/TIME: 01/24/2018 5:07 AM CLINICAL HISTORY: 47 years old, male; Pain; Chest pain; Type not specified; Patient HX: Chest/ abd pain TECHNIQUE: Axial computed tomography images of the chest without intravenous contrast. COMPARISON: No relevant prior studies available. FINDINGS: Thyroid: The visualized thyroid gland is unremarkable. Lungs: There is bibasilar interstitial and airspace opacification suggestive of moderate pulmonary ed jina. Pleural space: Normal. No pneumothorax. No pleural effusion. Heart: There may be mitral annulus calcification versus valve replacement. Mediastinum: The trachea is normal. Aorta: Normal. No aortic aneurysm. Lymph nodes: Unremarkable. No enlarged lymph nodes. Bones/joints: Unremarkable. No acute fracture. Soft tissues: Unremarkable. IMPRESSION: There is bibasilar interstitial and airspace opacification suggestive of moderate pulmonary edema. CT Abdomen and Pelvis Without Intravenous Contrast EXAM DATE/TIME: 01/24/2018 5:07 AM CLINICAL HISTORY: 47 years old, male; Pain; Chest pain; Type not specified; Patient HX: Chest/ abd pain TECHNIQUE: Axial computed tomography images of the abdomen and pelvis without intravenous contrast. COMPARISON: No relevant prior studies available. FINDINGS: Lower thorax: See concurrent thoracic CT report. ABDOMEN: Liver: The liver is within normal limits for this noncontrast study. Gallbladder and bile ducts: There is gallbladder wall haziness, nonspecific but may be seen with acut e cholecystitis. Pancreas: The pancreas appears normal. Spleen: There is mild splenomegaly. Adrenals: The adrenal glands are normal. Kidneys and ureters: There is a simple cyst in the right kidney. There is a simple cyst in the left k idney. There is an indeterminate cyst within the interpolar region of the RIGHT kidney with possible peripheral calcification, incompletely evaluated. Stomach and bowel: The stomach is normal. The duodenum is unremarkable. No obstruction or mucosal thi ckening. Appendix: The appendix may be surgically absent. PELVIS: Bladder: The bladder is normal. Reproductive: The prostate gland and seminal vesicles are normal. ABDOMEN and PELVIS: Intraperitoneal space: Normal. No free air. No significant fluid collection. Bones/joints: No acute fracture. No dislocation. Soft tissues: Unremarkable. Vasculature: An inferior vena cava filter lies in appropriate position. Lymph nodes: There are innumerable biiliac and para-aortic chain lymph nodes of unknown significance. IMPRESSION: 1. There is gallbladder wall haziness, nonspecific but may be seen with acute cholecystitis. If clini ana warranted, consider RIGHT upper quadrant ultrasound for further evaluation. 2. There are innumerable biiliac and para-aortic chain lymph nodes of unknown significance. 3. Indeterminate RIGHT renal cyst. Comparison with prior imaging (not currently available) is advised . Thank you for allowing us to participate in the care of your patient. Dictated and Authenticated by: Daniel Benjamin MD 01/24/2018 6:11 AM Central Time ([place] & [place]) FINAL REPORT CT CHEST WITHOUT CONTRAST CT ABDOMEN WITHOUT CONTRAST CT PELVIS WITHOUT CONTRAST: Date: 01/24/18 FINDINGS/IMPRESSION: I agree with the preliminary report given by Tano. POS: [facility]
[2018-01-24 11:07] LABS: PTT 119.2 SEC (22.9-36.1)
--- NOTE | 2018-01-24 11:28 | HP ---
PRIMARY CARE PHYSICIAN: Dr. Rossana Blanc CHIEF COMPLAINT: Abdominal discomfort and chest pain. HISTORY OF PRESENT ILLNESS: This is a 47-year-old male with a known history of antiphospholipid synd lucina, PE, DVT, prior IVC filter placement, chronic renal disease who presents with a chief complaint of chest discomfort and upper abdominal pain. Of note, the patient stopped his home medications on t he 15th of this month or approximately 2 weeks ago due to a feeling that he does not like medications and does not need so many medications. The patient also notably has a known history of seizures inc luding a prior lobectomy. In the Emergency Department, there was concern for continued PE. He was given a dose of Lovenox for full dose anticoagulation due to a subtherapeutic INR. He is being sent for a ventilation perfusion scan as well. On the patient's CT of the abdomen there is some question of "haziness" with abdominal ultrasound completed and follow up commenting on gallbladder wall thickening without overt gallstone s. At the time of my evaluation, the patient feels that his abdomen is overall better than previous. REVIEW OF SYSTEMS: As per HPI. CONSTITUTIONAL: No fevers, no chills, no significant weight loss or gain. HEENT: No new headaches, dizziness, vision changes. CARDIOVASCULAR: No chest pain, chest pressure, left-sided arm numbness or tingling. RESPIRATORY: N o difficulty with breathing, congestion, cough, dyspnea with exertion. GASTROINTESTINAL: No nausea, vomiting. Abdominal pain as described above without constipation or di arrhea. Last bowel movement was yesterday and brown in coloration and otherwise "normal" as per the patient. GENITOURINARY: No dysuria, change in urinary quality or quantity, color. MUSCULOSKELETAL: No new myalgias or arthralgias. The remainder of the review of systems otherwise negative. PAST MEDICAL HISTORY: 1. As per above, notable for medication noncompliance. 2. Antiphospholipid syndrome, previously on warfarin. 3. Prior PE and DVT. The patient states that he has had "clots in both legs and his lung". 4. Chronic renal disease. 5. Seizures, status post lobectomy for his seizures. 6. Hypertension. 7. Systolic heart failure with EF of 35-40%. Las echocardiogram that we have in our record was on 0 05/14/2017. 8. Prior history of heart catheterization. HOME MEDICATIONS: Please see the EMR, but of note, the patient stopped taking all of his home medica tions approximately 2 weeks ago. His medication list includes furosemide 40 mg p.o. b.i.d., warfarin 7.5 mg p.o., alternating with 10 mg p.o., colchicine 0.6 mg p.o. b.i.d. p.r.n., metoprolol succinate 50 mg p.o. daily, oxcarbazepine 600 mg p.o. b.i.d. Timolol 1 drop each eye b.i.d. ALLERGIES: Significant and include PHENYTOIN which causes emesis, MIDAZOLAM which causes swelling. FAMILY HISTORY: Per prior records, the patient's family history includes negative for any other ricardo tological disorders. SOCIAL HISTORY: The patient denies any alcohol, tobacco or illicit drug use. CODE STATUS: The patient wishes to be FULL CODE at this point. PHYSICAL EXAMINATION: GENERAL: The patient is awake, alert, conversant, in no acute distress, lying in the hospital stretc her. HEENT: Normocephalic, atraumatic. Equal ocular motions are intact, moist mucous membranes. CARDIOVASCULAR: S1, S2. Pulses 2+ bilateral upper extremities, no pitting pedal edema. RESPIRATORY: No conversational dyspnea. Reasonable air movement. No wheezes, rales or rhonchi. Cl ear to auscultation bilaterally. ABDOMEN: Obese, positive bowel sounds, soft, nontender to palpation. MUSCULOSKELETAL: Moving all 4 extremities independently able to self-reposition in the bed without d ifficulty. IMAGIN01/24/2018 - Abdominal ultrasound. Impression "gallbladder wall thickening without overt gallstones. No ductal dilatation. If there is concern for acute cholecystitis follow up nonemergent Nuclear medicine hepatobiliary scan is suggested". LABORATORY: CBC: WBC 6.2, hemoglobin 12.9, hematocrit 38.9, platelets 57. Of note, the patient has a prior history of thrombocytopenia which is variable with platelets in the lesia of the 60,000 coun t range back in 04/2017 hospitalization. Coags: PT 16.0, INR 1.3. D-dimer 2.78. Chemistry: Sodium 133, potassium 4.6, chloride 100, bicarbonate 20, BUN 21, creatinine 1.97, glucose 117, alkaline phosphatase 158. Troponin initial 0.065 subsequent 0.065. Total protein 7.9, albumin 3.9, of note, the patient has a known history of prior elevation of alkaline phosphatase as well. Caroline mullen last had a hepatobiliary scan with a gallbladder EF that was essentially normal back in 04/2017. I n regards to the patient's renal function with a creatinine of 1.98 is grossly within range of over t he last 12 months, where his creatinine has fluctuated between 1.7-3.13. ASSESSMENT AND PLAN: This is a 47-year-old presenting with a chief complaint of chest and abdominal discomfort. 1. Chest and abdominal discomfort in a patient with prior antiphospholipid syndrome, PE, DVT, conges tive heart failure, who has stopped his home medication on his own. The differential is unfortunatel y quite broad. Patient is currently slotted for an AVQ scan. The patient is also being evaluated fo r the possibility of a gallbladder issue. At this point in time, I suspect that it is less likely he will need a cholecystectomy. However, the patient is going to be placed on heparin for full dose an ticoagulation and ease of reversibility if he does eventually need to go to the OR. He will eventual ly need to be back on anticoagulation. There is also concern for possible cardiac disease. We will repeat an echocardiogram and continue to trend his troponins. EKG has been thus far unremarkable. 2. Known history of seizure disorder which is less likely to be the etiology of his current presenta tion. Resume the patient on his Trileptal. 3. Prior history of congestive heart failure without any evidence currently of acute exacerbation. The patient will be resumed on his home regimen. 4. History of chronic renal disease. The patient's renal function appears to be grossly at his base line and will therefore continue on his home regimen. 5. Diet: N.p.o. okay for ice chips and sips of clears. 6. Activity: As tolerated. 7. DVT prophylaxis. See discussion above. Thank you for asking me to care for the patient.
[2018-01-24] MEDS: Sodium Chloride 0.9% 1,000 ML IV SCH (11:37)
[2018-01-24] MEDS: Morphine 2 MG/ML SYRINGE SLOW IVP PRN ×4 (11:49→23:15)
[2018-01-24] MEDS ORDERED: OXcarbazepine 300 MG TAB PO SCH (12:00)
[2018-01-24] MEDS ORDERED: Furosemide 40 MG TAB PO SCH ×3 (12:00→21:00)
[2018-01-24] MEDS ORDERED: Timolol 0.5% Ophth Soln 5 ml Bottle EA EYE SCH (12:00)
--- NOTE | 2018-01-24 13:15 | RAD ---
TWO VIEWS CHEST: Comparison: 05-15-17 History: Shortness of breath. FINDINGS: Two views of the chest shows a normal sized cardiomediastinal silhouette. Increased interstitial misa ings are stable. No milagro consolidation or pleural effusions are seen. IMPRESSION: Stable exam. POS: ANGEL
--- NOTE | 2018-01-24 14:26 | NM ---
VQ SCAN: 01/24/18 HISTORY: Chest pain. TECHNIQUE: A ventilation perfusion scan was performed using 10.2 millicuries Xenon 133 by inhalation for the sammy tilation scan followed by the intravenous administration of 6.2 millicuries of technetium 99m-MAA for the perfusion scan. Correlation is made with the chest radiograph of the same date. FINDINGS: There is fairly homogeneous tracer distribution through the lungs on the ventilation study without de fects. Tracer retention is seen on the washout phase of the ventilation study indicative of COPD. There is inhomogeneous tracer distribution on the perfusion scan. There is a stripe sign noted in the left lung. No significant pleural based wedge shaped, mismatched segmental or subsegmental defects a re seen. IMPRESSION: Low probability for pulmonary embolism. POS: [facility]
[2018-01-24] MEDS: metroNIDAZOLE 500 MG in Premix Bag 1 BAG IVPB SCH ×2 (15:02→21:51)
[2018-01-24] MEDS ORDERED: Warfarin Sodium 5 MG TAB PO SCH ×2 (17:00)
[2018-01-24] MEDS: Heparin 25,000 units/D5W 500 ML IVPB SCH (18:50)
[2018-01-24] MEDS: Timolol 0.5% Ophth Soln 5 ml Bottle EA EYE SCH (21:50)
[2018-01-24] MEDS: OXcarbazepine 300 MG TAB PO SCH (21:50)
[2018-01-24] MEDS ORDERED: Pantoprazole 40 MG VIAL IVP SCH (23:00)
[2018-01-24] MEDS: Mag-Al 1200 mg/1200 mg/30 ML UDCUP PO PRN (23:16)
[2018-01-25 01:04] LABS: INR-International Normal Ratio 1.5; Prothrombin Time 17.9 SEC (12.0-14.7)
[2018-01-25 02:00] LABS: PTT Greater than 250.0 SEC (22.9-36.1)
[2018-01-25] MEDS: Sodium Chloride 0.9% 1,000 ML IV SCH ×2 (04:05→17:21)
[2018-01-25] MEDS: Morphine 2 MG/ML SYRINGE SLOW IVP PRN ×3 (04:09→21:40)
[2018-01-25] MEDS: Furosemide 40 MG TAB PO SCH ×2 (05:11→17:21)
[2018-01-25] MEDS: metroNIDAZOLE 500 MG in Premix Bag 1 BAG IVPB SCH ×3 (05:12→21:44)
[2018-01-25] MEDS: Heparin 25,000 units/D5W 500 ML IVPB SCH (11:07)
[2018-01-25] MEDS ORDERED: traMADol HCl 50 MG TAB PO PRN (12:05)
[2018-01-25] MEDS ORDERED: Lorazepam 2 MG/ML VIAL SLOW IVP SCH (12:15)
[2018-01-25] MEDS: Acetaminophen 325 MG TAB PO SCH (12:18)
[2018-01-25 12:19] LABS: INR-International Normal Ratio 1.6; Prothrombin Time 19.1 SEC (12.0-14.7)
[2018-01-25 12:40] LABS: PTT 115.8 SEC (22.9-36.1)
[2018-01-25] MEDS: Pantoprazole 40 MG VIAL IVP SCH (14:17)
[2018-01-25] MEDS: Timolol 0.5% Ophth Soln 5 ml Bottle EA EYE SCH ×2 (15:27→21:41)
[2018-01-25] MEDS: OXcarbazepine 300 MG TAB PO SCH ×2 (15:27→21:43)
[2018-01-25 15:42] LABS: INR-International Normal Ratio 1.6; Prothrombin Time 19.4 SEC (12.0-14.7)
[2018-01-25 15:43] LABS: PTT 77.7 SEC (22.9-36.1)
[2018-01-25 16:20] LABS: Amphetamine Not Detected (NotDetected); Barbiturates Screen Not Detected (NotDetected); Benzodiazepine Screen Not Detected (NotDetected); Cocaine Metabolite Screen Not Detected (NotDetected); Medtox Control Line Valid? VALID (VALID); Medtox Reader # READER 1; Methadone Not Detected (NotDetected); Methamphetamine Not Detected (NotDetected); Opiate Screen Detected (NotDetected); Oxycodone Screen Not Detected (NotDetected); Phencyclidine (PCP) Not Detected (NotDetected); THC/Cannabinoid Screen Not Detected (NotDetected); Tricyclic Screen Not Detected (NotDetected)
--- NOTE | 2018-01-25 16:49 | NM ---
HEPATOBILIARY SCAN: Date: 01/25/18 HISTORY: 47-year-old male with gallbladder wall thickening on ultrasound of previous day, abdominal pain. RADIOPHARMACEUTICAL: 5.5 mCi technetium-99m mebrofenin injected intravenously. FINDINGS: There is good tracer uptake by the liver with prompt excretion into the biliary tract and small bowel loops, and normal filling of the gallbladder. The patient was given an oral fatty meal, which he threw up in the first 3 minutes. CCK was not avail able for intravenous administration. The gallbladder ejection fraction could not be evaluated. IMPRESSION: No evidence of biliary tract obstruction or acute cholecystitis. Please see above. POS: [facility]
[2018-01-25 21:31] LABS: INR-International Normal Ratio 1.7; Prothrombin Time 20.2 SEC (12.0-14.7)
[2018-01-25 21:36] LABS: PTT 150.4 SEC (22.9-36.1)
[2018-01-25] MEDS: Mag-Al 1200 mg/1200 mg/30 ML UDCUP PO PRN (21:40)
--- NOTE | 2018-01-25 22:52 | ULT ---
RENAL ULTRASOUND: 01/25/18 COMPARISON: 01/02/16 HISTORY: Evaluate for renal calculi. Left flank pain. TECHNIQUE: Sagittal and transverse imaging of the kidneys is performed. FINDINGS: There is a hypoechoic focus in the mid pole of the right kidney measuring 1 cm. Lesion cannot be furt her characterized. There is a diffuse right renal cortical thinning. Right kidney measures 11.1 x 4.8 x 4.5 cm. There is diffuse thinning of the left renal cortex. Left kidney measures 8.7 x 3.4 x 4.0 cm. Bilatera lly, no hydronephrosis. The urinary bladder is unremarkable. Prostate gland measures 3.5 x 2.6 x 2.8 cm. There is a nonspecif ic fluid collection in the left lower quadrant, incompletely evaluated. This collection measures 8.6 x 2.8 x 4.2 cm. IMPRESSION: Severe atrophy of the kidneys. Note, the degree of atrophy noted by sonography does not correlate wit h the recent CT performed in April and December of 2017. Query is raised if this is in fact the cor rect patient was scanned. Additionally, there appears to be fluid in the left hemiabdomen which is no t appreciated on the CT performed on 01/24/18. Again, query should be made to make sure that the correct patient was scanned. Code T POS: [facility]
--- NOTE | 2018-01-25 23:33 | PDOC.PN ---
- Subjective Encounter Start Date: 01/25/18 Encounter Start Time: 16:00 Subjective: nsg notes rev, susan ovn, having difficulty with sharp pain under the L arm -: pit every time he breaths along with L flank pain with any movement. -: at bedside. clarifies that in the past 3 weeks patient c/o smelling something bad and that his medication regimen was making his gout worse and therefore stopped taking his regular medications but instead started on supplements and a homeopathic regimen in an attempt to "live healthier." this regimen included fresh cherries for gout, L arginine for "blood thinning" and a variety of essential oils for his blood pressure in order to snack healthier, he has been eating more nuts and 85% yvette chocolate instead of potato chips and drinking red wine instead of soda - Objective Vital Signs & Weight: Vital Signs (12 hours) Temp Pulse Resp BP BP BP Pulse Ox 01/25/18 21:41 87 91/59 L 01/25/18 20:40 97.1 F L 87 17 91/59 L 100 01/25/18 15:33 96.3 F L 95 27 H 97/55 L 97/55 L 97 Weight Weight 283 lb 6.4 oz I&O: 01/24/18 01/25/18 01/26/18 06:59 06:59 06:59 Intake Total 1669 Output Total 3010 Balance -1341 Result Diagrams: 01/26/18 05:48 01/26/18 05:48 Phys Exam - Physical Examination Constitutional: NAD lying on the hospital bed HEENT: PERRLA, moist MMs Respiratory: no wheezing, no rales, no rhonchi, clear to auscultation bilateral Cardiovascular: RRR, no significant murmur, no rub Gastrointestinal: non-tender, positive bowel sounds + L flank CVA tenderness to palpation non tender to palpation in all 4 abd quadrants, not able to reproduce pain Musculoskeletal: no edema, pulses present Neurological: moves all 4 limbs anxious affect, oriented x3 but poor recall compared to yday Dx/Plan - Plan * chest pain/ abdominal pain * unclear etiology, given prior CT chest/ abd/ pelvis is unremarkable but new c/ o L sided flank pain, will US abd * pt is also neg for PE, unclear why he has singular one sided pleuritic chest pain * * hx antiphospholipid syndr with prior hx PE, DVT, IVC filter * off of coumadin x2 wks - no PE noted, currently on heparin gtt secondary to renal dysfunction * * hx sz * off of home anti-epileptic medication * at risk for new/ recurrent seizures * home regimen has been resumed, will need to closely follow for any further development of seizures * * CKD * grossly at baseline, continue to closely monitor renal function * see discussion above re: re-imaging of the kidney * * diet: as malika * activity: as malika * dvt ppx: on full a/c as per above * * d/w pt and his bedside nsg and his extensively at bedside x30min Review of Systems - Medications/Allergies Allergies/Adverse Reactions: Allergies Allergy/AdvReac Type Severity Reaction Status Date / Time phenytoin sodium Allergy Severe Emesis Verified 01/24/18 08:30 [From Dilantin] phenytoin sodium extended Allergy Severe Emesis Verified 01/24/18 08:30 [From Dilantin] midazolam HCl [From Versed] Allergy Intermediate swelling Verified 01/24/18 08: 30 Medications: Current Medications Acetaminophen (Tylenol) 650 mg PO Q6HR NEPTALI Last Admin: 01/25/18 12:18 Dose: 650 mg Al Hydroxide/Mg Hydroxide (Maalox) 30 ml PO Q4H PRN PRN Reason: Heartburn or Indigestion Last Admin: 01/25/18 21:40 Dose: 30 ml Furosemide (Lasix) 40 mg PO 0600,1400 NEPTALI Last Admin: 01/25/18 17:21 Dose: Not Given Heparin Sodium (Porcine) (Heparin 1,000 Units/Ml (10 Ml)) 0 units SLOW IVP ASDIR NEPTALI; Protocol Last Admin: 01/24/18 18:36 Dose: 10,000 unit Heparin Sodium/Dextrose (Heparin 25,000 Units/D5w 500 Ml) 500 mls @ 0 mls/hr IVPB INF NEPTALI; Protocol Last Admin: 01/25/18 11:07 Dose: 500 mls Metronidazole 500 mg/ Device 100 mls @ 100 mls/hr IVPB Q8HR NEPTALI Last Admin: 01/25/18 21:44 Dose: 100 mls Sodium Chloride (Normal Saline 0.9%) 1,000 mls @ 75 mls/hr IV .[id number] NEPTALI Last Admin: 01/25/18 17:21 Dose: Not Given Lidocaine (Lidoderm 5% Patch) 1 patch TD DAILY [facility] Metoprolol Succinate (Toprol Xl) 50 mg PO DAILY [facility] Last Admin: 01/25/18 15:27 Dose: 50 mg Miscellaneous Medication (Lidocaine Patch Removal) 1 each TOP HS [facility] Morphine Sulfate (Morphine) 2 mg SLOW IVP Q4H PRN PRN Reason: Severe Pain (7-10) Last Admin: 01/25/18 21:40 Dose: 2 mg Oxcarbazepine (Trileptal) 600 mg PO BID [facility] Last Admin: 01/25/18 21:43 Dose: 600 mg Pantoprazole Sodium (Protonix) 40 mg IVP DAILY [facility] Last Admin: 01/25/18 14:17 Dose: 40 mg Sodium Chloride (Flush - Normal Saline) 10 ml IVF Q12HR [facility] Last Admin: 01/25/18 21:43 Dose: 10 ml Sodium Chloride (Flush - Normal Saline) 10 ml IVF PRN PRN PRN Reason: Saline Flush Timolol Maleate (Timoptic 0.5% [facility]) 1 drop EA EYE BID [facility] Last Admin: 01/25/18 21:41 Dose: 1 drop Tramadol HCl (Ultram) 50 mg PO Q8H PRN PRN Reason: Pain Last Admin: 01/25/18 12:18 Dose: 50 mg
[2018-01-26] MEDS: Acetaminophen 325 MG TAB PO SCH ×4 (00:41→18:02)
[2018-01-26] MEDS: Morphine 2 MG/ML SYRINGE SLOW IVP PRN (02:49)
[2018-01-26] MEDS ORDERED: HYDROcodone/Acetaminophen 5/325 mg Tablet PO SCH (05:00)
[2018-01-26] MEDS: Heparin 25,000 units/D5W 500 ML IVPB SCH (05:10)
[2018-01-26] MEDS: Furosemide 40 MG TAB PO SCH (05:11)
[2018-01-26] MEDS: metroNIDAZOLE 500 MG in Premix Bag 1 BAG IVPB SCH (05:12)
[2018-01-26 06:11] LABS: Anion Gap 21 mmol/L (10-20); BUN (Urea Nitrogen) 43 mg/dL (8.9-20.6); Calc. Creatinine Clearance 39 mL/min (70-130); Carbon Dioxide 17 mmol/L (22-29); Chloride 99 mmol/L (98-107); Estimated GFR-MDRD 15; Glucose 158 mg/dL (70-105); Potassium 4.8 mmol/L (3.5-5.1); Sodium 132 mmol/L (136-145)
[2018-01-26 06:15] LABS: #Lymphocytes 1.4 thou/uL (1.20-3.40); #Monocytes 0.7 thou/uL (0.11-0.59); %Basophils 0.2 % (0.0-1.0); %Eosinophils 0.3 % (0.0-10.0); %Lymphocytes 11.3 % (21.0-51.0); %Monocytes 5.5 % (0.0-10.0); %Neutrophils 82.7 % (42.0-75.0); Hemoglobin 11.2 g/dL (14.0-18.0); Mean Corpuscular HGB CONC 32.6 g/dL (32.0-36.0); Mean Corpuscular Hemoglobin 29.7 pg (27.0-31.0); Mean Corpuscular Volume 91.2 fL (78.0-98.0); Platelet Count 57 thou/uL (130-400); RBC Distribution Width 12.5 % (11.5-14.5); Red Blood Cell (RBC) Count 3.76 mill/uL (4.70-6.10); White Blood Cell (WBC) Count 12.1 thou/uL (4.8-10.8)
[2018-01-26] MEDS ORDERED: Naloxone HCl 0.4 mg/ml Vial ONE (06:43)
--- NOTE | 2018-01-26 08:11 | PDOC.EVN ---
Event Note - Event Note Event Note: Code ibis called after patient had a witnessed episode of unresponsiveness. Patient went limp, stopped breathing, and a BP could not be taken. This lasted for 30-60s, per nursing staff. Patient in NSR confirmed by EKG with a pulse of 80 bpm. Patient responsive and in no respiratory distress when I examined him. Breathing was unlabored and auscultation of chest revealed RRR with no murmurs. Patient was hypotensive by manual check of blood pressure so he was bolused one liter of normal saline. BP was responsive to fluids but still with borderline MAPs, so he was bolused another liter of NS. Patient given narcan because he had been c/o back pain during the day prior and was given narcotic pain medication. Patient stable upon transfer to CCU.
--- NOTE | 2018-01-26 08:31 | PDOC.PN ---
- Subjective Encounter Start Date: 01/26/18 Encounter Start Time: 08:29 concepcion cheng called overnight: It appears that he was sitting on the side of the bed when he was noted to have an undetectable blood pressure and was unarousable - Objective Vital Signs & Weight: Vital Signs (12 hours) Temp Pulse Resp BP BP BP BP 01/26/18 06:35 40/20 L 78/45 L 64/40 L 01/26/18 04:00 96.7 F L 99 16 01/26/18 00:00 97.8 F 84 01/25/18 21:41 87 91/59 L 01/25/18 20:40 97.1 F L 87 17 BP BP Pulse Ox 01/26/18 06:35 01/26/18 04:00 100 01/26/18 00:00 97/65 98 01/25/18 21:41 01/25/18 20:40 91/59 L 100 Weight Weight 283 lb 6.4 oz I&O: 01/25/18 01/26/18 01/27/18 06:59 06:59 06:59 Intake Total 1669 Output Total 3010 Balance -1341 Result Diagrams: 01/26/18 15:41 01/26/18 09:12 Additional Labs: Accuchecks 01/26/18 06:39 POC Glucose 153 H Dx/Plan - Plan Dx/Plan - Plan * hypotension SBP 70s, 80s * with ELIZABETH on CKD and metabolic encephalopathy * IVF NS x1L, HOLD home metoprolol, lasix which have been discontinued * appreciate pulmonary critical care consultation * re-eval for possibility of sepsis: recheck urine culture, CXR, abd XR, blood culture, lactic acid * strict I/O * check troponin, EKG * * prior hx of CHF EF 35-40% on ECHO 04/2017 * continue with IVF and close monitoring - pt needs the IVF for hypotension at this point in time * repeat ECHO 2D * * chest pain/ abdominal pain * US renal yday demonstrates some new intra-abdominal fluid in conjunction with worsening renal function * repeat imaging as per above and also check hepatic function panel * was discussed yesterday with pts that "gallbladder disease" is unlikely the etiology of his symptoms given his negative repeat HIDA scan - pt's states that she herself had a gangrenous gallbladder which "shouldn't have happened" and wants to make sure he does not have any biliary issues * * hx antiphospholipid syndr with prior hx PE, DVT, IVC filter - thrombocytopenia with plts > 50,000 * off of coumadin x2 wks w/ subtherapeutic inr - currently on heparin gtt secondary to renal dysfunction * concern for other sites of thromboembolism as etiology of presentation * close monitoring of h/h, plts * * hx sz - question of recurrence * appreciate neurology c/s as pt has complicated hx in regards to his seizures * question of whether or not additional regimen or change in regimen may be needed * pt took himself off the epileptic regimen which has since been restarted * * ELIZABETH on CKD * IVF, hydration, appreciate nephrology consult * strict I/O, Morris catheter in place * * diet: as malika * activity: as malika * dvt ppx: on full a/c as per above Review of Systems - Medications/Allergies Allergies/Adverse Reactions: Allergies Allergy/AdvReac Type Severity Reaction Status Date / Time phenytoin sodium Allergy Severe Emesis Verified 01/24/18 08:30 [From Dilantin] phenytoin sodium extended Allergy Severe Emesis Verified 01/24/18 08:30 [From Dilantin] midazolam HCl [From Versed] Allergy Intermediate swelling Verified 01/24/18 08: 30 Medications: Current Medications Acetaminophen (Tylenol) 650 mg PO Q6HR NEPTALI Last Admin: 01/26/18 01:41 Dose: 650 mg Al Hydroxide/Mg Hydroxide (Maalox) 30 ml PO Q4H PRN PRN Reason: Heartburn or Indigestion Last Admin: 01/25/18 21:40 Dose: 30 ml Heparin Sodium (Porcine) (Heparin 1,000 Units/Ml (10 Ml)) 0 units SLOW IVP ASDIR NEPTALI; Protocol Last Admin: 01/24/18 18:36 Dose: 10,000 unit Heparin Sodium/Dextrose (Heparin 25,000 Units/D5w 500 Ml) 500 mls @ 0 mls/hr IVPB INF NEPTALI; Protocol Last Admin: 01/26/18 05:10 Dose: 500 mls Sodium Chloride (Normal Saline 0.9%) 1,000 mls @ 75 mls/hr IV .[id number] NEPTALI Last Admin: 01/25/18 17:21 Dose: Not Given Lidocaine (Lidoderm 5% Patch) 1 patch TD DAILY [facility] Miscellaneous Medication (Lidocaine Patch Removal) 1 each TOP HS [facility] Oxcarbazepine (Trileptal) 600 mg PO BID [facility] Last Admin: 01/25/18 21:43 Dose: 600 mg Pantoprazole Sodium (Protonix) 40 mg IVP DAILY [facility] Last Admin: 01/25/18 14:17 Dose: 40 mg Sodium Chloride (Flush - Normal Saline) 10 ml IVF Q12HR [facility] Last Admin: 01/25/18 21:43 Dose: 10 ml Sodium Chloride (Flush - Normal Saline) 10 ml IVF PRN PRN PRN Reason: Saline Flush Timolol Maleate (Timoptic 0.5% [facility]) 1 drop EA EYE BID [facility] Last Admin: 01/25/18 21:41 Dose: 1 drop Tramadol HCl (Ultram) 50 mg PO Q8H PRN PRN Reason: Pain Last Admin: 01/25/18 12:18 Dose: 50 mg
[2018-01-26 08:59] LABS: Actual Bicarbonate (HCO3a) 19.8 mEq/L (22-28); Analyzer IN Cardio ER; Base Excess (BEa) -4.9 mEq/L (-2.0 to +3.0); Calcium, Ionized 1.03 mmol/L (1.12-1.30); Carboxyhemoglobin (COHb) 0.1 gm% (0.0-3.0); Hemoglobin (Hb) 7.1 g/dL (14.0-18.0); O2 Tension (PaO2) 87.8 mmHg (80.0-100.0); Potassium - ABG Lab 4.04 mmol/L (3.70-5.30); pH, Arterial 7.37 (7.35-7.45)
[2018-01-26 09:02] LABS: Puncture Site RR
[2018-01-26 09:08] LABS: Bilirubin Small (Negative); Blood, Urine Moderate (Negative); Clarity CLOUDY (Clear); Glucose, Urine (Dipstick) Negative (Negative); Leukocyte Negative (Negative); Nitrite Negative (Negative); Protein, Urine (Dipstick) 100 mg/dL (Neg-Trace); Specific Gravity, Urine 1.012 (1.002-1.036); Urobilinogen 0.2 mg/dL (0.2-1.0)
[2018-01-26 09:11] LABS: Squamous Epithelial 0-3 HPF (0-3); WBC/HPF 0-3 HPF (0-3)
--- NOTE | 2018-01-26 09:12 | RAD ---
SINGLE VIEW OF THE CHEST: Comparison: 05-23-17 History: Sepsis. FINDINGS: Single view of the chest shows an enlarged but stable cardiomediastinal silhouette. Increased interst itial markings are present. There is no evidence of consolidation, mass or pleural effusion. IMPRESSION: Cardiomegaly without evidence of acute cardiopulmonary disease. POS: [facility]
[2018-01-26 09:24] LABS: Pathc Cast-AUWi Flag 3.34 (0-2.49); Yeast-AUWi Flag 64.2 (0-25.0)
[2018-01-26 09:34] LABS: Bacteria/HPF Rare-Few HPF (None Seen); Yeast-All Forms None Seen HPF (None Seen)
--- NOTE | 2018-01-26 09:34 | RAD ---
KUB: Comparison: 04-07-15 History: Abdominal pain. FINDINGS: Single view of the abdomen shows a nonspecific, nonobstructed bowel gas pattern. An inferior vena cav a filter is seen. No suspicious calcifications are present. IMPRESSION: Unremarkable exam. POS: [facility]
[2018-01-26 09:35] LABS: Crystals/HPF 4+ AMORPH URATES HPF (Negative)
[2018-01-26 09:42] LABS: Hemoglobin 7.5 g/dL (14.0-18.0); Platelet Count 53 thou/uL (130-400)
[2018-01-26 09:47] LABS: Lactic Acid 2.4 mmol/L (0.5-2.2)
[2018-01-26 09:55] LABS: ALT (SGPT) 28 U/L (8-55); AST (SGOT) 38 U/L (5-34); Albumin 2.8 g/dL (3.5-5.0); Alkaline Phosphatase 124 U/L (40-150); Anion Gap 19 mmol/L (10-20); BUN (Urea Nitrogen) 46 mg/dL (8.9-20.6); Calc. Creatinine Clearance 37 mL/min (70-130); Carbon Dioxide 18 mmol/L (22-29); Chloride 102 mmol/L (98-107); Estimated GFR-MDRD 14; Globulin 3.1 g/dL (2.4-3.5); Glucose 81 mg/dL (70-105); Potassium 4.4 mmol/L (3.5-5.1); Protein, Total 5.9 g/dL (6.0-8.3); Sodium 135 mmol/L (136-145)
[2018-01-26 10:00] LABS: Troponin I 0.127 ng/mL (< 0.028)
[2018-01-26] MEDS ORDERED: Sodium Chloride 0.9% 1,000 ML IV SCH (10:15)
[2018-01-26] MEDS: Sodium Chloride 0.9% 1,000 ML IV SCH ×2 (10:29→12:42)
[2018-01-26] MEDS ORDERED: Protamine Sulfate 50 MG/5 ML VIAL SLOW IVP SCH (11:45)
[2018-01-26] MEDS: OXcarbazepine 300 MG TAB PO SCH ×2 (12:07→23:10)
[2018-01-26] MEDS: Pantoprazole 40 MG VIAL IVP SCH (12:07)
[2018-01-26] MEDS: Lidocaine 5% Patch TD SCH (12:07)
[2018-01-26] MEDS: Timolol 0.5% Ophth Soln 5 ml Bottle EA EYE SCH ×2 (12:42→23:13)
[2018-01-26 13:49] LABS: Hemoglobin 8.6 g/dL (14.0-18.0)
--- NOTE | 2018-01-26 15:40 | CT ---
CT OF THE ABDOMEN AND PELVIS WITHOUT CONTRAST: Date: 01/26/18 COMPARISON: 01/24/18, 12/13/12. HISTORY: Dropping hemoglobin. Code Blue this morning. Possible retroperitoneal bleed. TECHNIQUE: Multiple contiguous axial images were obtained in a CT of the abdomen and pelvis without contrast. Co yessenia reformats were performed. FINDINGS: There is a large fluid-fluid level adjacent to the left kidney, which is displaced medially. The depe ndent aspect of this is hyperdense and this likely represents hemorrhage adjacent to the left kidney. There is also hemorrhage extending into the left retroperitoneum. This stops at the level of the brian ac crest and extends up to the spleen. The hematoma is approximately 17 cm in greatest dimension. The liver, gallbladder, right kidney, adrenal glands, spleen, and pancreas are unremarkable. No free air or free fluid seen within the peritoneal cavity. The large and small bowel are unremarkab le. A Morris catheter is seen in the urinary bladder. No abdominal or pelvic lymphadenopathy seen. An inferior vena jeanette filter is seen. Small calcifications are seen in the lung parenchyma and the lung bases. There is a small left pleura l effusion. The abdominal wall soft tissues are unremarkable. Degenerative changes are seen in the sp ine. IMPRESSION: 1. There is a retroperitoneal hematoma in the left retroperitoneum appearing to emanate from the lef t kidney. The cause for this bleed is uncertain as no obvious angiomyolipoma is seen on the prior con trasted CT from 12/13/12. 2. Small left pleural effusion. Dr. Olson notified of the findings at 1342 hours on 01/26/18. CODE CR. POS: [facility]
[2018-01-26 15:47] LABS: Hemoglobin 8.5 g/dL (14.0-18.0); Platelet Count 49 thou/uL (130-400)
--- NOTE | 2018-01-26 15:47 | EKG ---
Test Reason : CODE BLUE Blood Pressure : / mmHG Vent. Rate : 083 BPM Atrial Rate : 083 BPM P-R Int : 130 ms QRS Dur : 104 ms QT Int : 428 ms P-R-T Axes : 027 042 161 degrees QTc Int : 502 ms Normal sinus rhythm Non-specific intra-ventricular conduction delay Minimal voltage criteria for LVH, may be normal variant Inferior infarct (cited on or before 07-JUN-2009) Prolonged QT Abnormal ECG Confirmed by ABRAM DOTSON ([id number]) on 01/26/2018 3:47:10 PM Referred By: FUENTES Confirmed By:ABRAM DOTSON
--- NOTE | 2018-01-26 15:52 | EKG ---
Test Reason : Blood Pressure : / mmHG Vent. Rate : 070 BPM Atrial Rate : 070 BPM P-R Int : 134 ms QRS Dur : 102 ms QT Int : 474 ms P-R-T Axes : 050 023 063 degrees QTc Int : 511 ms Sinus rhythm with occasional Premature ventricular complexes Non-specific intra-ventricular conduction delay Inferior infarct (cited on or before 07-JUN-2009) T wave abnormality, consider lateral ischemia Prolonged QT Abnormal ECG Confirmed by ABRAM DOTSON ([id number]) on 01/26/2018 3:52:25 PM Referred By: TRAVIS Confirmed By:ABRAM DOTSON
[2018-01-26 15:54] LABS: INR-International Normal Ratio 1.8; PTT 69.4 SEC (22.9-36.1); Prothrombin Time 20.5 SEC (12.0-14.7)
[2018-01-26] MEDS ORDERED: Norepinephrine 8 MG/0.9% NS 250 ML ONE ×2 (15:59→22:47)
[2018-01-26] MEDS ORDERED: Ventilator Sedation Protocol 1 EACH FS ONE (16:02)
[2018-01-26] MEDS ORDERED: Propofol BOLUS 1,000 MG/100 ML VIAL IV PRN (16:26)
[2018-01-26] MEDS ORDERED: DISCONTINUE PREVIOUS NARCOTIC PAIN MEDICATIONS AND BENZODIAZEPINES FS SCH (16:26)
[2018-01-26] MEDS ORDERED: Fentanyl BOLUS 250 ML IVPB PRN (16:26)
[2018-01-26 17:07] LABS: Actual Bicarbonate (HCO3a) 17.6 mEq/L (22-28); Base Excess (BEa) -6.8 mEq/L (-2.0 to +3.0); CO2 Tension 31.2 mmHg (35.0-45.0); O2 Tension (PaO2) 157.9 mmHg (80.0-100.0); pH, Arterial 7.37 (7.35-7.45)
[2018-01-26 17:08] LABS: Calcium, Ionized 1.06 mmol/L (1.12-1.30); Carboxyhemoglobin (COHb) 0.7 gm% (0.0-3.0); Potassium - ABG Lab 4.41 mmol/L (3.70-5.30); Puncture Site ALINE
[2018-01-26 17:16] LABS: HBSAB Concentration 0.39 mIU/mL; HBSAg Index 0.19 S/CO (0-0.99); Hep B Core Total Ab Non-Reactive (NonReactive); Hep B Core Total Index 0.06 S/CO (0-0.79); Hep B Surf AB Non-Reactive (NonReactive); Hep B Surf Ag Non-Reactive S/CO (NonReactive); Hep C IgG Ab Non-Reactive (NonReactive); Hep C Index 0.09 S/CO (0-0.79)
--- NOTE | 2018-01-26 17:28 | RAD ---
SINGLE VIEW CHEST: Date: 01/26/18 COMPARISON: 12/07/12 and 01/24/18. HISTORY: Line placement. FINDINGS: Single view of the chest shows an enlarged cardiomediastinal silhouette. An endotracheal tube is seen with its tip between the clavicles. A left-sided central venous catheter is seen with its tip to the left of midline. This is in unclear position and is definitely not within the superior vena cava. Th is could be within a left-sided superior vena cava or within the aorta. IMPRESSION: Unclear position of left central venous catheter. POS: [facility]
[2018-01-26 17:38] LABS: Actual Bicarbonate (HCO3a) 16.3 mEq/L (22-28); Base Excess (BEa) -8.4 mEq/L (-2.0 to +3.0); CO2 Tension 30.3 mmHg (35.0-45.0); Calcium, Ionized 1.07 mmol/L (1.12-1.30); Carboxyhemoglobin (COHb) 0.9 gm% (0.0-3.0); Hemoglobin (Hb) 8.8 g/dL (14.0-18.0); O2 Tension (PaO2) 156.8 mmHg (80.0-100.0); Potassium - ABG Lab 4.31 mmol/L (3.70-5.30); pH, Arterial 7.35 (7.35-7.45)
[2018-01-26 17:39] LABS: pH (venous) 7.13 (7.32-7.43)
[2018-01-26 17:40] LABS: Actual Bicarbonate (HCO3v) 21 mEq/L (22-28); Base Excess -4.9 mEq/L (-2.0 to +3.0); Hemoglobin (Hb) 9.1 g/dL (13.1-17.2)
[2018-01-26 17:42] LABS: Calcium, Ionized 1.02 mmol/L (1.16-1.32); Chloride (ABG LAB) 105 mmol/L (98-106); Potassium - ABG Lab 4.47 mmol/L (3.70-5.30); Sodium 131.5 mmol/L (133-146)
[2018-01-26 17:44] LABS: ALV-art Gradient 90.525 (0-20); Puncture Site ARTLINE
[2018-01-26] MEDS ORDERED: Midazolam HCl 2 mg/2 ml Vial SLOW IVP SCH ×3 (19:15)
[2018-01-26] MEDS ORDERED: Vecuronium 10 MG VIAL IV SCH (19:15)
[2018-01-26] MEDS: Albumin 25% 25 GM/100 ML BOT IVPB SCH (19:47)
--- NOTE | 2018-01-26 20:34 | PRG ---
DATE OF SERVICE: 01/26/2018 SUBJECTIVE: The patient was seen and evaluated this afternoon. His hemodynamics have been stable but there is a concern that he is still bleeding. We discussed angiography with possible embolization. I just repeated hemoglobin and his hemoglobin is stable compared to the one about 3 hours earlier. His hemoglobin currently is 8.5 at 1541, it was 8.6 at 1342. His coags are still abnormal, so I suspect this is consumption related, so will go ahead and give him the plasma that was ordered earlier. I held it after getting protamine because it appeared that he was stable. Dr. Wagner is putting in a dialysis catheter. It is anticipated that he would require more volume and he is oliguric, so I recommended intubation. The patient's upper airway was prepped with Hurricaine [place]. Bronchoscope was introduced via his mouth, passed through his cords into his trachea. He was quickly intubated with 7.5 mm endotracheal tube. This was secured above the main bina. He was sedated with 4 mg of Versed total. He was given a 500 mL fluid bolus with intubation to avoid hypotension. His current systolic blood pressure is 130 and his heart rate is 100 and in a sinus rhythm. Since his hemoglobin stabilized, we may end up holding off on angiography. Dr. De La Rosa feels that he was approaching a point where he might need dialysis and this may be the last straw associated with his code). Critical care time was 30 minutes independent of the procedure. ALEXANDRA
[2018-01-26] MEDS: Propofol 1,000 MG/100 ML VIAL IV PRN (20:45)
--- NOTE | 2018-01-26 21:01 | CON ---
DATE OF CONSULTATION: 01/26/2018 HISTORY OF PRESENT ILLNESS: Mr. Boo is a 47-year-old male. I have not seen him in quite some time, but I have seen him in the past. As I recall, he has not been seen often in our office. He has been in the hospital multiple times for many days this year. My last contact with him was in April. He has multiple medical problems. His biggest problem has been his kidney disease. He has a history of a deep vein thrombus in inferior vena cava filter. When he was sent home on May 28, he was discharged on 6 mg of warfarin. It is unclear to me who has been following this or if this is followed in followup. He presented this admission on the early in the morning with complaints of abdominal discomfort, chest pain. Nuclear perfusion study was done showing no evidence of thromboembolic disease. CT of the chest, abdomen, and pelvis was done showed pulmonary edema. Abdominal ultrasound was done 6:00 in the morning showing a thick gallbladder. He subsequently was admitted and anticoagulated with heparin. A HIDA scan was done yesterday and was negative. This morning, he was found unresponsive, sitting up in a chair I am told. A code was called and he was transferred to the Critical Care Unit. Once they put him back into bed, he awakened. I was consulted by the nursing staff to come quickly to see him. When I arrived, his heart rate was in the 80s. He was never tachycardic (he has been on metoprolol). PHYSICAL EXAMINATION: GENERAL: He did have a pressure of 80. He was very confused when I initially evaluated. HEENT: His pupils equally reactive. LUNGS: His lungs are clear anteriorly. HEART: Regular rhythm. ABDOMEN: Remarkable for diffuse very mild tenderness. He had no marked tenderness. EXTREMITIES: He moved all extremities equally. His extremities were remarkable for stasis changes. His feet were cool. LABORATORY DATA: White count at 5:00 this morning was 12, hemoglobin was 11.2. Blood gas was done when he arrived in the ICU and his pH was 7.37, CO2 is 35, pO2 is 87 with a hemoglobin was 7.1 grams. A repeat H&H was ordered and his hemoglobin was 7.5. He subsequently has been transfused with 2 units of packed cells. His heparin was stopped. He was given 50 mg of protamine. His hemoglobin post-transfusion is 8.6. His blood pressures over 100 systolic now, however, and he is much more lucid. He has only made 150 mL of urine today. His creatinine is 4.47. It is interesting to note that on the CT, his kidneys are not mentioned to be atrophic, but a renal ultrasound done yesterday afternoon showed severe atrophy of both kidneys, also showed prostate enlargement. Fluid was seen in the left lower quadrant, it was measuring 8 x [address] scan of the abdomen today without contrast after the above was noted and he was volume resuscitated showed a large left renal hemorrhage with retroperitoneal blood. Hopefully, this has ceased to bleed. I have consulted General Surgery for dialysis access since without a doubt he will require dialysis access for this hospitalization is over. We will continue to volume resuscitate him to cut back on his fluid resuscitation at this point because of his lack of urine output. I think he is currently volume resuscitated, but it is unclear whether or not he is still bleeding. His anticoagulants at this point should be reversed given the protamine and half-life of IV heparin. It is not clear why he has had a renal or perirenal hemorrhage at this point. Critical care time with the patient this morning 90 minutes on and off between 8 :00 and noon. This is independent of the procedure. ALEXANDRA
--- NOTE | 2018-01-26 21:03 | OP ---
PROCEDURE PERFORMED: Arterial line placement. PROCEDURE IN DETAIL: Right groin was prepped with chlorhexidine and Betadine. The right femoral art denise was easily cannulated with an introducer needle first pass. A wire was passed followed by a 5-Fr ench catheter was sewn in place x2. This was connected to an arterial monitor. Attempt was made at cannulating the right femoral vein could only pass the J wire 7 inches. I tried three different vena punctures easily accessed the vein, but could not pass a wire completely suggesting that there may be an old clot in his femoral vein. He has had bilateral lower extremity DVTs in the past. I was consulted General Surgery for a Trialysis catheter. A sterile dressing was applied. There was no excessive bleeding after the procedure.
--- NOTE | 2018-01-26 21:52 | PRG ---
DATE OF SERVICE: 01/26/2018 Mr. Boo's hemoglobin appears to stabilize. This afternoon, we have another one due here in the next couple hours. We are reversing his coagulopathy with plasma. 50 mg of protamine was ordered. Central line was graciously placed by Dr. Wagner in the left IJ as well as a femoral dialysis catheter. The IJ on radiograph _courses laterally and inferiorly to the heart, suggesting that maybe this is an internal mammary vein. Simultaneous blood gases were drawn one from his distal port of the central line and one from the arterial line. The arterial line pO2 was 146. Venous line pO2 has entered in the computer with a pO2 of 42. A pH of arterial gas at 17:26 was 7.35 with a CO2 of 30. He is now mechanically ventilated. I met with the and answered all of her questions the third time today. ALEXANDRA
--- NOTE | 2018-01-26 22:40 | CON ---
DATE OF CONSULTATION: 01/26/2018 HISTORY OF PRESENT ILLNESS: Mr. Boo is a 47-year-old white male that was initially admitted for complaint of abdominal pain/chest pain. He presented to the ER with complaints of abdominal pain. Of interest, this patient has history of PE, DVT, prior IVC filter placement, and chronic renal failure secondary to a presumptive cardiorenal syndrome. At ER at that time, the patient was said to have given a dose of Lovenox for a full-dose anticoagulation due to a subtherapeutic INR. Initial imaging CT of the abdomen showed some question of haziness of the kidneys and comment with a gallbladder thickening. Over the next several days, the patient's clinical course worsened. Yesterday, the patient complained of sharp abdominal pain/ flank pain. He was subsequently transferred to ICU. A CT scan of the abdomen and pelvis on 01/26/2018 showed findings of retroperitoneal hematoma - left, which is emanating from the left kidney. In addition, his renal function acutely worsened with the most recent creatinine now noted at 4.47. Early this morning , it was noted at 4.22 and prior to today's lab work, his creatinine on admission was noted at 1.98 mg percent, which is about his baseline. He was seen at the renal clinic back on 12/07/2017 with a creatinine of 2.09. Please note, he was at that time on diuretics. We are now being consulted for further management of this acute kidney injury on top of his chronic renal failure. REVIEW OF SYSTEMS: Not obtainable since the patient is intubated and on ventilator support. MEDICATIONS: Topiramate 200 mg p.o. b.i.d., Trileptal 600 mg p.o. b.i.d., Protonix 40 mg IV every day, normal saline 150 mL an hour. PAST MEDICAL HISTORY: Seizure disorder, history of cardiomyopathy, mitral valve regurgitation, hypertension, chronic renal failure secondary to cardiorenal syndrome, status post PE, status post DVT. PAST SURGICAL HISTORY: 1. Status post cardiac catheterization. 2. Status post IVC filter placement. 3. Status post brain surgery - for seizures. SOCIAL HISTORY: The patient is and lives in [place], 3 step-children. No history of smoking. No alcohol intake. Education, bachelor of science. 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 Status post blood transfusion. No IV drug abuse. ALLERGIES: DILANTIN, MIDAZOLAM, OXCARBAZEPINE. TRAUMA: None. IMMUNIZATIONS: Up-to-date. HOSPITALIZATIONS: Please see past medical history. PHYSICAL EXAMINATION: VITAL SIGNS: Blood pressure is currently noted at 131/78 with a heart rate of 90. GENERAL: Sedated, intubated, on ventilator support. SKIN: Adequate turgor. HEENT: Pale conjunctivae. Anicteric sclerae. NECK: No neck mass, no carotid bruits, no JVD. LUNGS: Decreased breath sounds. HEART: Normal sinus rhythm. No murmur, no gallops, no rubs. ABDOMEN: Globular, soft, nontender. No masses. EXTREMITIES: No edema, no deformities. NEUROLOGIC: The patient is sedated and intubated. LABORATORY DATA: Laboratories of 01/26/[address] scan of the abdomen and pelvis showed a left retroperitoneal hemorrhage, most likely around the site of the kidney. Please note, most recent creatinine is noted at 4.47. Urinalysis of 01/26/2018 showed a specific gravity 1.012, 7-10 rbc's, wbc's 0-3. ASSESSMENT AND PLAN: 1. Acute kidney injury - consider the possibility of superimposed ischemic acute tubular necrosis. Continue to optimize hemodynamics. Start the patient on albumin infusion 25 grams IV q.6. hours. Consideration for hemodialysis is being made due to the acute kidney injury and significantly decreased urine output with this patient. Case was discussed with Dr. Olson. 2. I will be ordering the albumin infusion today. We also consider a short 1- hour hemodialysis tonight. 3. Left renal bleed - Surgical consult has been made for further managment - surgical intervention? Overall, prognosis remains guarded. Agree with current management. MTDD
--- NOTE | 2018-01-26 22:41 | CON ---
DATE OF CONSULTATION: 01/26/2018 HISTORY OF PRESENT ILLNESS: Mr. Boo is a 47-year-old gentleman with chronic renal insufficiency and history of antiphospholipid syndrome/DVT/PE and prior IVC filter placement. He stopped all of his home medications 2 weeks prior to admission. He presented with abdominal pain. He was worked up and admitted. During the night, he had a code and underwent CPR and never was intubated. His part of his post-code workup, he continued to complain of abdominal pain. CT was repeated and shows a left renal intraparenchymal hemorrhage. There is a significant difference in the appearance of the two CT scans. His hemoglobin at the time of admission was 12.9, it dropped to 7.5 this morning at 9:00 a.m. and it has been checked serially since and has been 8.6 and 8.5%. Most recent INR is 1.8. He has had worsening renal function with a current creatinine of 4.47. PAST MEDICAL HISTORY: As above. CURRENT MEDICATIONS: Noted in the MAR. ALLERGIES: PHENYTOIN, MIDAZOLAM. SOCIAL HISTORY: He does not use alcohol, tobacco or other drugs. PHYSICAL EXAMINATION: VITAL SIGNS: Height 5 feet 5 inches, weight is 283 pounds, BSA is 2.64. Temperature is 98.4, pulse is 98, blood pressure is 138/78 GENERAL: Intubated/sedated on the ventilator. LUNGS: Clear. HEART: Rhythm is regular. ABDOMEN: Sof. He is going to have his CBC serially checked. If his hemoglobin drops again, we can certainly consider angiography and embolization of his left kidney at that point. ALEXANDRA
[2018-01-26] MEDS ORDERED: Norepinephrine 8 MG/250 ML BAG IVPB PRN (22:54)
[2018-01-26 23:30] LABS: Hemoglobin 6.5 g/dL (14.0-18.0); Platelet Count 60 thou/uL (130-400)
[2018-01-26 23:39] LABS: Actual Bicarbonate (HCO3a) 21.2 mEq/L (22-28); Base Excess (BEa) -3.2 mEq/L (-2.0 to +3.0); CO2 Tension 33.9 mmHg (35.0-45.0); Calcium, Ionized 1.01 mmol/L (1.12-1.30); Carboxyhemoglobin (COHb) 2.2 gm% (0.0-3.0); Hemoglobin (Hb) 5.5 g/dL (14.0-18.0); O2 Tension (PaO2) 147.3 mmHg (80.0-100.0); Potassium - ABG Lab 4.39 mmol/L (3.70-5.30); pH, Arterial 7.41 (7.35-7.45)
[2018-01-26 23:41] LABS: ALV-art Gradient 95.525 (0-20); Puncture Site LINE
[2018-01-27] MEDS: Lidocaine Patch Removal TOP SCH ×2 (00:24→21:25)
[2018-01-27] MEDS: Sodium Chloride 0.9% 1,000 ML IV SCH ×2 (00:26→10:02)
[2018-01-27] MEDS ORDERED: Sodium Chloride 0.9% 1,000 ML IV SCH ×2 (00:30→05:30)
[2018-01-27] MEDS: Albumin 25% 25 GM/100 ML BOT IVPB SCH ×6 (00:34→18:46)
[2018-01-27] MEDS: Acetaminophen 325 MG TAB PO SCH ×4 (00:35→18:46)
[2018-01-27] MEDS: Propofol 1,000 MG/100 ML VIAL IV PRN ×3 (01:52→16:47)
--- NOTE | 2018-01-27 03:11 | OP ---
PREOPERATIVE DIAGNOSES: Hemorrhage from his left kidney with retroperitoneal hematoma, plan interven tional embolization by Dr. Lanre Shepherd. 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 Antecubital IV's placed this hospitalization patient with chronic kidney disease. POSTOPERATIVE DIAGNOSES: Hemorrhage from his left kidney with retroperitoneal hematoma, plan interve ntional embolization by Dr. Lanre Shepherd. 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 Antecubital IV's placed this hospitalization patient with chronic kidney disease, left internal jugular vei n central line and dual cable to the left of midline. PROCEDURE: Unsuccessful placement of right femoral vein triple lumen catheter. Placement of left fe moral vein Trialysis catheter, although there were some resistance and flow at the far reach of the c atheter and resolved after withdrawal of 1 to 2 cm, placement of left IJ central line probably in a l eft cava (left of midline chest x-ray). SURGEON: Dr. Dany Wagner. ANESTHESIA: 1% Xylocaine, patient intubated. PROCEDURE IN DETAIL: The patient was at bedside in the ICU. Left groin was prepared with ChloraPrep , draped in routine fashion. Local anesthetic infiltrated into skin and subcutaneous tissue. Seldin zen technique used to place a left femoral vein Trialysis catheter using serial dilators removed and the J-wire securing the catheter with 3-0 nylon suture and sterile dressings applied. At the far bandar ch of the catheter, I had met some resistance in return, but only slight withdrawal, it seemed to fun ction well. Sterile dressings applied. I then attempted Seldinger technique approach to the right femoral vein and the vein could be cannula maru, but J-wire would not thread. After several attempts, this site was abandoned and dressings rest ored. Under ultrasound guidance, I then placed a left jugular vein central line using local anesthetic, [place] katharinae procedure, securing the catheter 200 mL of 3-0 silk, J wire removed. Sterile dressings applied. Each port aspirated in blood and flushed with saline solution. Chest x-ray revealed the line to be the left of midline in the chest and gases obtained from the catheter revealed it to be venous and i t appeared venous and on ultrasound use the vein cannulated, compressed well.
--- NOTE | 2018-01-27 03:12 | OP ---
DATE OF PROCEDURE: 01/26/2018 PREOPERATIVE DIAGNOSES: Spontaneous hemorrhage from left kidney in the face of acute anticoagulation with large left renal hematoma, hemorrhagic shock, and acute blood loss anemia. PROCEDURES: 1. Abdominal aortogram. 2. Selective left renal arteriogram. 3. Embolization of the left renal artery with two 4 x 2.9 fibered [employer] coils. TOTAL CONTRAST: 32 mL TOTAL FLUORO TIME: 2.9 minutes. DESCRIPTION OF PROCEDURE: After consent was obtained, the patient was brought to film laboratory technician, placed in supine position on the film laboratory technician table. Appropriate monitoring was placed. The patient was already intubated under IV sedation, The previously placed a 5-Haitian arterial line was removed over a wire and replaced with a 6-Haitian sheath. Bentson wire and a pigtail catheter placed in the upper abdominal aorta. Hand injected aortogram was performed localizing the left renal artery. Left renal artery was selected with a 6-Haitian RESS guide. Hand injection arteriograms were performed. The edges of the kidney for the full circumference were very shaggy, especially in the lower 2/3rd of the kidney, appearing to have a subcapsular hemorrhage which has ruptured and begins to fill the retroperitoneal space on CT. There was no selectable branch artery that we could embolize that would completely take care of the hemorrhage without embolizing the main renal artery, 4 x 2.9 coils were selected. These were deployed through an angled Lyons into the main renal artery in the hilum with a good result. A followup angiogram showed a closed, nicely placed and significantly diminished blood flow into the kidney and no further external capsular hemorrhage. The catheter was removed over Bentson guidewire. The guide catheter was then removed. Sheath was sewn in place for monitoring purposes. The patient tolerated procedure well, and was transferred back to the intensive care unit in stable condition. ALEXANDRA
[2018-01-27] MEDS ORDERED: Lidocaine 1% (PF) 30 ML VIAL ONE (03:43)
[2018-01-27] MEDS ORDERED: Heparin 10,000 UNITS/1 ML VIAL ONE ×2 (03:43→16:04)
[2018-01-27 04:50] LABS: #Lymphocytes 0.8 thou/uL (1.20-3.40); #Monocytes 0.9 thou/uL (0.11-0.59); #Neutrophils 6.1 thou/uL (1.40-6.50); %Basophils 0.1 % (0.0-1.0); %Eosinophils 0.6 % (0.0-10.0); %Lymphocytes 10.2 % (21.0-51.0); %Monocytes 10.9 % (0.0-10.0); %Neutrophils 78.3 % (42.0-75.0); Hemoglobin 7.2 g/dL (14.0-18.0); Mean Corpuscular HGB CONC 32.6 g/dL (32.0-36.0); Mean Corpuscular Hemoglobin 29.1 pg (27.0-31.0); Mean Corpuscular Volume 89.2 fL (78.0-98.0); Mean Platelet Volume 8.7 fL (7.4-10.4); Platelet Count 68 thou/uL (130-400); RBC Distribution Width 12.8 % (11.5-14.5); Red Blood Cell (RBC) Count 2.47 mill/uL (4.70-6.10); White Blood Cell (WBC) Count 7.8 thou/uL (4.8-10.8)
--- NOTE | 2018-01-27 05:06 | HP ---
HISTORY OF PRESENT ILLNESS: Hans Boo Jr. is a 47-year-old male patient with multiple medica l problems. He has suffered DVT, PE and has a vena cava filter in place. He apparently was admitted this hospitalization, hospitalist for abdominal pain. Per record, he was complaining of left abdomi nal pain, back radiation. The patient has history of chronic kidney disease, followed by Dr. De La Rosa. H e was evaluated in the emergency room and CAT scan of abdomen and pelvis was obtained 01/24/2018, nedra arently suggest some gallbladder wall haziness, some periaortic lymph nodes, the size of questionable significance right renal cyst, but no acute findings. He then underwent abdominal ultrasound, which was unremarkable. There were no gallstones, bile duct was normal. He then underwent a HIDA scan wi th visualization of the gallbladder without evidence of acute cholecystitis. Renal ultrasound reveal ed atrophic kidneys on 01/25/2018. Today, the patient noticed a decline, it was noted to have a decl ine in his hemoglobin and an abdominal and pelvic CAT scan were repeated revealing perinephric hemato ma, suspect bleeding from the left kidney. Retroperitoneal hematoma surrounded the left kidney. The patient's renal function has significantly deteriorated. Creatinine on presentation 1.98 4.47 today. Urine output has diminished. Dr. Hussein Olson has asked me to see him regarding placement o f a hemodialysis catheter. The patient has been transfused blood. Dr. Lanre Shepherd has been consul maru to consider interventional procedures, arteriography to stop the bleeding left kidney. Initially his hemoglobin seemed to stabilize, but after 3 units of blood, his hemoglobin has not changed from 8 and at this time he is going for intervention by the time of this dictation. I saw him a few hours earlier. At Dr. Olson's request, I placed a femoral vein hemodialysis catheter , I placed a left femoral vein hemodialysis catheter and I went in fairly well, although the , t here were some venous return issues, but it had excellent venous return after slight withdrawal of a cm or two, catheters secured. I then attempted placement of a right femoral vein triple lumen cathet er and similar to Dr. Olson's experience, I could not place that due to most probable occlusion of th e iliac vein. The patient does have numerous venous collaterals over his abdominal wall, probably co nsistent with his vena cava filter and past DVT events, he probably has some occlusion of his iliac v eins and maybe even his cava. Hopefully, the hemodialysis catheter on the left femoral vein will wor k well. I then at the bedside and placed a left IJ central line under ultrasound guidance. The left internal jugular vein compressed well and the catheter placed and chest x-ray revealed the line to be in the left of the mediastinum. 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 This line can be used. Also on my arrival, the patient had right antecubital IV, left mid forearm IV and the right antecubit al IV was removed. He had numerous sticks in both forearms proximally. At this point, it is likely the patient will need long term care administrator dialysis and I would recommend no IVs be placed in his extremities an d this IV access saved for dialysis access, we will obtain ultrasound vein mapping both arms and orde r all venous draws, phlebotomies from the central lines. Most likely he may have problems with venou s access in his lower extremities due to vein occlusion, past DVTs and cava filter and as noted above multiple collaterals over the abdominal wall. The patient has been intubated and records obtained f rom the chart. ALLERGIES: PHENYTOIN, MIDAZOLAM. PAST MEDICAL HISTORY: DVT; PE; vena cava filter; antiphospholipid syndrome, previously on warfarin; chronic kidney disease, followed by Dr. De La Rosa; seizure disorder, status post lobectomy for seizures; hy pertension; systolic failure with 35% to 40% ejection fraction, last echo in 04/2017; prior history o f heart catheterization. SOCIAL HISTORY: Tobacco: None. Alcohol: None. The patient is a FULL CODE. HOME MEDICATIONS: Include Coumadin, furosemide, colchicine, metoprolol, Trileptal, eye drops. PHYSICAL EXAMINATION: VITAL SIGNS: Height 6 foot 5 inches, weight 283 pounds, 33 BMI, 20 respiratory rate, blood pressure 144/68, heart rate 100. HEENT: Unremarkable. LUNGS: Clear to auscultation. CARDIAC: Regular rate and rhythm without murmur or gallop. ABDOMEN: Soft, obese. Numerous venous collaterals over his abdominal wall. EXTREMITIES: Unremarkable. Right femoral arterial line, IV right antecubital. LABORATORY DATA: As noted above. Currently, creatinine 4.47. GFR of 14. White count 12, hemoglobi n 11, platelet count 57,000. ASSESSMENT AND PLAN: 1. History of deep venous thrombosis, pulmonary embolism, inferior vena cava filter with venous geo aterals of the abdomen and venous access attempts consistent with occluded right femoral vein outflow , probably right iliac vein and probably some degree of occlusion of cava and its filter. 2. Chronic anticoagulation on Coumadin due to antiphospholipid syndrome. 3. Chronic kidney disease, now with acute renal failure, hemodialysis catheter placed at the bedside . 4. Systolic heart failure with a compromised ejection fraction 35% to 40% by 04/2017 echocardiogram.
[2018-01-27 05:11] LABS: Anion Gap 18 mmol/L (10-20); BUN (Urea Nitrogen) 54 mg/dL (8.9-20.6); Calc. Creatinine Clearance 32 mL/min (70-130); Calcium 7.9 mg/dL (7.8-10.44); Carbon Dioxide 19 mmol/L (22-29); Chloride 104 mmol/L (98-107); Estimated GFR-MDRD 12; Glucose 119 mg/dL (70-105); Potassium 4.6 mmol/L (3.5-5.1); Sodium 136 mmol/L (136-145)
[2018-01-27 07:11] LABS: Actual Bicarbonate (HCO3a) 19.6 mEq/L (22-28); Base Excess (BEa) -5.4 mEq/L (-2.0 to +3.0); CO2 Tension 35.8 mmHg (35.0-45.0); Calcium, Ionized 1.03 mmol/L (1.12-1.30); Carboxyhemoglobin (COHb) 1.4 gm% (0.0-3.0); Hemoglobin (Hb) 7.1 g/dL (14.0-18.0); O2 Tension (PaO2) 140.2 mmHg (80.0-100.0); Potassium - ABG Lab 4.47 mmol/L (3.70-5.30); pH, Arterial 7.36 (7.35-7.45)
[2018-01-27 07:12] LABS: Puncture Site LINE
[2018-01-27] MEDS ORDERED: Activase 2 MG VIAL CATH SCH (07:45)
[2018-01-27] MEDS: Timolol 0.5% Ophth Soln 5 ml Bottle EA EYE SCH ×2 (09:16→20:46)
[2018-01-27] MEDS: Lidocaine 5% Patch TD SCH ×2 (09:17→09:22)
[2018-01-27] MEDS: OXcarbazepine 300 MG TAB PO SCH ×2 (09:17→20:46)
[2018-01-27] MEDS: Pantoprazole 40 MG VIAL IVP SCH (09:17)
--- NOTE | 2018-01-27 09:52 | PRG ---
DATE OF SERVICE: 01/27/2018 SUBJECTIVE: Mr. Hans Boo is on the ventilator today. He underwent arteriographic embolization in left kidney for ongoing bleeding by Dr. Shepherd yesterday. Efforts to use his left femoral dialysi s catheter was unsuccessful. When I placed this catheter, there was some resistance and flow until I slightly withdrew it and due to his venous collaterals over his abdominal wall, history of vena cava filter and clinically occluded right iliac vein, determined by inability to place a central line. H e has probably an occluded vena cava and will need a cuffed tunnel dialysis catheter today. Yesterda y, Dr. Shepherd performed on 01/26/2018, embolization of left renal artery due to spontaneous hemorrhage from the left kidney with ongoing bleeding. The patient will need ad terminal makeup operator dialysis, most likely v enous ultrasound, vein mapping of both extremities have been ordered. Avoid IV access, blood draws f rom his arms. There is probably already iatrogenic injury as he has had bilateral antecubital IVs an d blood draws and multiple forearm IVs, which has since been removed.
--- NOTE | 2018-01-27 10:05 | RAD ---
PORTABLE SUPINE FRONTAL CHEST RADIOGRAPH: DATE: 01/27/2018. COMPARISON: 01/26/2018. HISTORY: Ventilated patient, respiratory distress. FINDINGS: Catheter tubing again overlies the cardiac silhouette to the left of midline. It is unchanged when c ompared to the prior study performed 01/26/2018 and again is in an uncertain position. This could be within the aorta. A left-sided superior vena cava would be a much less likely possibility given the distal tip of the catheter approaching the region of the left cardiophrenic angle. Supine imaging l imits assessment for pneumothorax or pleural effusion. There is interstitial and alveolar opacity in both lung bases, left greater than right, unchanged and nonspecific. Stable endotracheal tube in pl nicole. IMPRESSION: Left-sided vascular catheter, with distal tip overlying the mediastinum to the left of midline. This is suspicious for an arterial location. This could potentially be within a mammary vein. This dist inction cannot be made on this exam. Correlation with blood gasses of the line advised. On an imagi ng basis, this distinction could be made via CT or lateral chest radiograph. This line was discussed with Dr. Olson at 8:00 a.m. 01/27/2018. CODE CR POS: OFF
--- NOTE | 2018-01-27 10:06 | PRG ---
DATE OF SERVICE: 01/27/2018 SUBJECTIVE: He required pressors last night. He has been more aggressively volume resuscitated throughout the evening and appears to be stabilizing. We are trying to wean off the Levophed since this is a volume loss/blood loss situation. His hemoglobin at 0425 this morning was 7.2. Two units of blood were ordered. A DIC panel and CBC was ordered after the blood was infused. The Levophed requirements are down significantly compared to last night. His kidney was embolized last night we believe successfully by Dr. Shepherd. Assistance is appreciated. OBJECTIVE: LUNGS: Clear this morning. HEART: Regular rhythm. ABDOMEN: Soft. EXTREMITIES: Without asymmetry. It is questionable whether or not his left femoral dialysis catheter was functioning properly. Dr. Wagner will review this. LABORATORY DATA: His creatinine is up to 5.26. His potassium is 4.6. PH this morning is 7.36, CO2 of 35, and pO2 of 140. I increased his PEEP last night because of his volume requirements. There has been significant decline in gas exchange overnight. Received a call from Radiology about the placement of his left internal jugular vein. It is our belief that this it is clearly in a vein given the venous blood gas findings done at 1729 yesterday. IMPRESSION: Subcapsular hemorrhage requiring embolization of the left kidney while on full dose heparin anticoagulation. I suspect he will still have some degree of a coagulopathy secondary to consumption and we will continue to replace blood products as needed. He will remain mechanically ventilated. I met with the this morning and answered all of her questions. Critical care time was 30 minutes. [facility]
--- NOTE | 2018-01-27 10:25 | PRG ---
DATE OF SERVICE: 01/27/2018 SERVICE: Renal Medicine. SUBJECTIVE: Mr. Boo is a 47-year-old white male, who was admitted initially for an acute abdominal pain. Subsequent findings showed a retroperitoneal hemorrhage with this patient, which is currently compressing the patient's left kidney. Management is essentially conservative. The patient is too risky for rebleeding if a surgical intervention is done. I suspect acute kidney injury is probably ischemic - acute tubular necrosis. Currently, underwent dialysis, but the dialysis course was marred by hypotensive episode. He was given several volume repletion during the said dialysis. The catheter was poorly functional, and for that reason, Dr. Wagner will change the femoral dialysis catheter to a possible cuffed hemodialysis catheter. Patient underwent embolization of left kidney last night due to recurrent renal bleeding. OBJECTIVE: VITAL SIGNS: Blood pressure is currently 106/60, heart rate 75, respiratory rate is 12. GENERAL EXAM: The patient is intubated on ventilator support, sedated. HEENT: Slightly pale conjunctivae, anicteric sclerae. NECK: No neck mass, no carotid bruits, no JVD. LUNGS: Decreased breath sounds. HEART: Normal sinus rhythm. No murmur, no gallops, no rubs. ABDOMEN: Globular, soft, nontender. No masses. EXTREMITIES: No edema. Medications of 01/27/2018 were reviewed. LABORATORY DATA: Laboratories of 01/27/2018 shows the following: White count 7.8, hemoglobin 7.2. Sodium 136, potassium 4.6, chloride 104, carbon dioxide 19 , BUN 54, creatinine 5.26, glucose 119, calcium 7.9. GFR 12 mL per minute. Cortisol level 8.6. ASSESSMENT AND PLAN: 1. Acute kidney injury - most likely ischemic acute tubular necrosis. He does have a significant retroperitoneal hematoma with compression of the said left kidney. Supportive care. Currently undergoing dialysis. We will continue current management. 2. Retroperitoneal hemorrhage/anemia - on p.r.n. blood transfusion. s/p embolization of the left kidney. Dr. Wagner tried a cuffed hemodialysis catheter placement today. We will resume dialysis once the dialysis access is available. [facility]
--- NOTE | 2018-01-27 10:32 | ULT ---
BILATERAL UPPER EXTREMITY VEIN MAPPING: HISTORY: End-stage renal disease, exam for vein assessment for dialysis access. FINDINGS: RIGHT: CEPHALIC VEIN: Proximal humerus 3.4 mm Mid humerus 3.6 mm Distal 3.7 mm Elbow 4.1 mm Proximal forearm 2.0 mm Mid 1.4 mm Distal 2.2 mm BASILIC VEIN: Proximal humerus 2.2 mm Mid humerus 1.7 mm Distal 1.8 mm Elbow 2.5 mm Proximal forearm 1.9 mm Mid 1.3 mm Distal 1.1 mm LEFT: CEPHALIC VEIN: Proximal humerus 4.1 mm Mid humerus 4.1 mm Distal 2.6 mm Elbow 3.8 mm Proximal forearm 1.6 mm Mid 1.6 mm Distal 1.8 mm BASILIC VEIN: Proximal humerus 4.6 mm Mid humerus 5.9 mm Distal 4.6 mm Elbow 2.3 mm Proximal forearm 2.3 mm Mid 2.0 mm Distal 1.1 mm Right brachial artery 4.2 mm Radial artery 2.5 mm Ulnar artery 1.6 mm Left brachial artery 3.8 mm Left radial artery 2.0 mm Left ulnar artery 1.8 mm IMPRESSION: Vein mapping as discussed above. POS: [facility]
[2018-01-27 11:05] LABS: Platelet Count 58 thou/uL (130-400)
[2018-01-27] MEDS ORDERED: PROPOFOL 200 MG/20 ML VIAL ONE (13:01)
[2018-01-27] MEDS ORDERED: Vecuronium 10 MG VIAL ONE (13:01)
[2018-01-27 14:35] LABS: Hemoglobin 8.6 g/dL (14.0-18.0); Platelet Count 59 thou/uL (130-400)
[2018-01-27] MEDS ORDERED: Lidocaine 2% w/Epinephrine 1:200K 20 ML VIAL ONE (16:04)
[2018-01-27] MEDS ORDERED: Bupivacaine/Epinephrine 0.25% 30 ML VIAL ONE (16:04)
[2018-01-27] MEDS ORDERED: Lidocaine 2% PF 5 ML VIAL ONE (16:05)
[2018-01-27] MEDS ORDERED: Bupivacaine PF 0.5% 30 ML VIAL ONE (16:05)
[2018-01-27] MEDS ORDERED: Bupivacaine HCl 0.5%/Epinephrine 1:200,000/PF 30 ml Vial ONE (16:13)
[2018-01-27] MEDS ORDERED: Sodium Chloride 0.9% 30 ML ONE (16:14)
[2018-01-27] MEDS ORDERED: Midazolam HCl 5 mg/5 ml Vial ONE (16:23)
[2018-01-27] MEDS ORDERED: Ketamine 50 MG/ML (10ML VIAL) ONE (16:23)
[2018-01-27] MEDS ORDERED: Fentanyl 100 MCG/2 ML VIAL ONE (16:23)
--- NOTE | 2018-01-27 16:23 | PDOC.PN ---
- Subjective Encounter Start Date: 01/27/18 Encounter Start Time: 09:00 Pt seen for followup re: acute respiratory failure. Intubated, unable to complete ROS. - Objective MAR Reviewed: Yes Vital Signs & Weight: Vital Signs (12 hours) Temp Pulse Pulse Resp BP BP Pulse Ox 01/27/18 15:23 72 01/27/18 14:00 17 01/27/18 13:33 75 01/27/18 12:00 98.5 F 21 H 01/27/18 10:49 81 01/27/18 10:00 98.8 F 18 01/27/18 09:16 83 107/48 L 01/27/18 08:00 100.2 F H 16 96 01/27/18 07:01 83 01/27/18 06:41 99.7 F H 84 16 109/48 L 100 01/27/18 06:00 99.7 F H 17 Weight Admit Weight 285 lb Weight 283 lb Most Recent Monitor Data Heart Rate from ECG 70 NIBP 104/63 NIBP BP-Mean 76 Respiration from ECG 16 SpO2 96 I&O: 01/26/18 01/27/18 01/28/18 06:59 06:59 06:59 Intake Total 33317.6 2951 Output Total 195 170 Balance 20798.6 2781 Result Diagrams: 01/27/18 14:24 01/27/18 04:25 EKG Reviewed by me: Yes (Tele: NSR) Phys Exam - Physical Examination Obese, Intubated HEENT: moist MMs ETT Cardiovascular: RRR Gastrointestinal: soft, positive bowel sounds Neurological: moves all 4 limbs Deviation from normal: Unable to assess Dx/Plan (1) Acute respiratory failure Code(s): J96.00 - ACUTE RESPIRATORY FAILURE, UNSP W HYPOXIA OR HYPERCAPNIA Status: Acute (2) Seizure disorder Code(s): G40.909 - EPILEPSY, UNSP, NOT INTRACTABLE, WITHOUT STATUS EPILEPTICUS Status: Chronic - Plan * . Review of Systems - Medications/Allergies Allergies/Adverse Reactions: Allergies Allergy/AdvReac Type Severity Reaction Status Date / Time phenytoin sodium Allergy Severe Emesis Verified 01/24/18 08:30 [From Dilantin] phenytoin sodium extended Allergy Severe Emesis Verified 01/24/18 08:30 [From Dilantin] midazolam HCl [From Versed] Allergy Intermediate swelling Verified 01/24/18 08: 30 Medications: Current Medications Acetaminophen (Tylenol) 650 mg PO Q6HR [facility] Last Admin: 01/27/18 12:21 Dose: 650 mg Al Hydroxide/Mg Hydroxide (Maalox) 30 ml PO Q4H PRN PRN Reason: Heartburn or Indigestion Last Admin: 01/25/18 21:40 Dose: 30 ml Albumin Human (Albumin 25%) 25 gm IVPB Q6HR [facility] Stop: 01/28/18 23:59 Last Admin: 01/27/18 12:21 Dose: 25 gm Alteplase, Recombinant (Cathflo) 2 mg CATH ASDIR [facility] Sodium Chloride (Normal Saline 0.9%) 1,000 mls @ 0 mls/hr IV .Q0M [facility] Last Admin: 01/27/18 10:02 Dose: 1,000 mls Fentanyl Citrate 2,000 mcg/ (Sodium Chloride) 100 mls @ 0 mls/hr IV INF [facility]; Protocol Stop: 02/25/18 16:26 Fentanyl Citrate (Fentanyl Bolus) 250 mls @ 0 mls/hr IVPB PRN PRN PRN Reason: Breakthrough pain/agitation Stop: 02/25/18 16:26 Levetiracetam 500 mg/ Device 100 mls @ 200 mls/hr IVPB BID [facility] Last Admin: 01/27/18 09:58 Dose: 100 mls Norepinephrine Bitartrate (Levophed) 250 mls @ 0 mls/hr IVPB INF PRN; Protocol PRN Reason: KEEP MAP >65 Lidocaine (Lidoderm 5% Patch) 1 patch TD DAILY [facility] Last Admin: 01/27/18 09:22 Dose: Not Given Lorazepam (Ativan) 2 mg SLOW IVP Q1H PRN PRN Reason: Breakthrough agitation Stop: 02/25/18 16:26 Methylprednisolone Sodium Succinate (Solu-Medrol) 40 mg IVP Q8HR [facility] Last Admin: 01/27/18 13:35 Dose: 40 mg Miscellaneous Medication (Lidocaine Patch Removal) 1 each TOP HS [facility] Last Admin: 01/27/18 00:24 Dose: 1 each Morphine Sulfate (Morphine Sulfate) 2 mg SLOW IVP Q1H PRN PRN Reason: BREAKTHROUGH PAIN/AGITATION Stop: 02/25/18 16:26 Discontinue Previous Narcotic Pain Medications And Benzodiazepines 1 each FS .ONE [facility] Stop: 02/25/18 16:26 Oxcarbazepine (Trileptal) 600 mg PO BID [facility] Last Admin: 01/27/18 09:17 Dose: 600 mg Pantoprazole Sodium (Protonix) 40 mg IVP DAILY [facility] Last Admin: 01/27/18 09:17 Dose: 40 mg Propofol (Diprivan) 1,000 mg IV INF PRN; Protocol PRN Reason: TO ACHIEVE GOAL RASS Stop: 02/25/18 16:26 Last Admin: 01/27/18 12:30 Dose: 1,000 mg Propofol (Diprivan Bolus) 20 mg IV Q5MIN PRN PRN Reason: BREAKTHROUGH AGITATION Stop: 02/25/18 16:26 Sodium Chloride (Flush - Normal Saline) 10 ml IVF Q12HR [facility] Last Admin: 01/27/18 09:17 Dose: 10 ml Sodium Chloride (Flush - Normal Saline) 10 ml IVF PRN PRN PRN Reason: Saline Flush Timolol Maleate (Timoptic 0.5% [facility]) 1 drop EA EYE BID [facility] Last Admin: 01/27/18 09:16 Dose: 1 drop
--- NOTE | 2018-01-27 16:40 | PDOC.PN ---
- Subjective Encounter Start Date: 01/27/18 Encounter Start Time: 09:00 Pt seen for followup re: acute respiratory failure. Intubated, unable to obtain ROS. - Objective MAR Reviewed: Yes Vital Signs & Weight: Vital Signs (12 hours) Temp Pulse Pulse Resp BP BP Pulse Ox 01/27/18 15:23 72 01/27/18 14:00 17 01/27/18 13:33 75 01/27/18 12:00 98.5 F 21 H 01/27/18 10:49 81 01/27/18 10:00 98.8 F 18 01/27/18 09:16 83 107/48 L 01/27/18 08:00 100.2 F H 16 96 01/27/18 07:01 83 01/27/18 06:41 99.7 F H 84 16 109/48 L 100 01/27/18 06:00 99.7 F H 17 Weight Admit Weight 285 lb Weight 283 lb Most Recent Monitor Data Heart Rate from ECG 70 NIBP 104/63 NIBP BP-Mean 76 Respiration from ECG 16 SpO2 96 I&O: 01/26/18 01/27/18 01/28/18 06:59 06:59 06:59 Intake Total 99791.6 2951 Output Total 195 170 Balance 22029.6 2781 Result Diagrams: 01/27/18 14:24 01/27/18 04:25 EKG Reviewed by me: Yes (Tele: NSR) Phys Exam - Physical Examination Intubated HEENT: sclera anicteric Neck: no nodes Respiratory: clear to auscultation bilateral Cardiovascular: RRR Neurological: moves all 4 limbs Deviation from normal: Unable to assess Dx/Plan (1) Acute respiratory failure Code(s): J96.00 - ACUTE RESPIRATORY FAILURE, UNSP W HYPOXIA OR HYPERCAPNIA Status: Acute Comment: Intubated, in CCU (2) Renal hemorrhage, left Code(s): N28.89 - OTHER SPECIFIED DISORDERS OF KIDNEY AND URETER Status: Acute Comment: s/p embolization (3) Anemia due to acute blood loss Code(s): D62 - ACUTE POSTHEMORRHAGIC ANEMIA Status: Acute Comment: s/p pRBC transfusions, hemoglobin stable (4) Seizure disorder Code(s): G40.909 - EPILEPSY, UNSP, NOT INTRACTABLE, WITHOUT STATUS EPILEPTICUS Status: Chronic Comment: continue Keppra - Plan * . Review of Systems - Medications/Allergies Allergies/Adverse Reactions: Allergies Allergy/AdvReac Type Severity Reaction Status Date / Time phenytoin sodium Allergy Severe Emesis Verified 01/24/18 08:30 [From Dilantin] phenytoin sodium extended Allergy Severe Emesis Verified 01/24/18 08:30 [From Dilantin] midazolam HCl [From Versed] Allergy Intermediate swelling Verified 01/24/18 08: 30 Medications: Current Medications Acetaminophen (Tylenol) 650 mg PO Q6HR [facility] Last Admin: 01/27/18 12:21 Dose: 650 mg Al Hydroxide/Mg Hydroxide (Maalox) 30 ml PO Q4H PRN PRN Reason: Heartburn or Indigestion Last Admin: 01/25/18 21:40 Dose: 30 ml Albumin Human (Albumin 25%) 25 gm IVPB Q6HR [facility] Stop: 01/28/18 23:59 Last Admin: 01/27/18 12:21 Dose: 25 gm Alteplase, Recombinant (Cathflo) 2 mg CATH ASDIR [facility] Sodium Chloride (Normal Saline 0.9%) 1,000 mls @ 0 mls/hr IV .Q0M [facility] Last Admin: 01/27/18 10:02 Dose: 1,000 mls Fentanyl Citrate 2,000 mcg/ (Sodium Chloride) 100 mls @ 0 mls/hr IV INF [facility]; Protocol Stop: 02/25/18 16:26 Fentanyl Citrate (Fentanyl Bolus) 250 mls @ 0 mls/hr IVPB PRN PRN PRN Reason: Breakthrough pain/agitation Stop: 02/25/18 16:26 Levetiracetam 500 mg/ Device 100 mls @ 200 mls/hr IVPB BID [facility] Last Admin: 01/27/18 09:58 Dose: 100 mls Norepinephrine Bitartrate (Levophed) 250 mls @ 0 mls/hr IVPB INF PRN; Protocol PRN Reason: KEEP MAP >65 Lidocaine (Lidoderm 5% Patch) 1 patch TD DAILY [facility] Last Admin: 01/27/18 09:22 Dose: Not Given Lorazepam (Ativan) 2 mg SLOW IVP Q1H PRN PRN Reason: Breakthrough agitation Stop: 02/25/18 16:26 Methylprednisolone Sodium Succinate (Solu-Medrol) 40 mg IVP Q8HR [facility] Last Admin: 01/27/18 13:35 Dose: 40 mg Miscellaneous Medication (Lidocaine Patch Removal) 1 each TOP HS [facility] Last Admin: 01/27/18 00:24 Dose: 1 each Morphine Sulfate (Morphine Sulfate) 2 mg SLOW IVP Q1H PRN PRN Reason: BREAKTHROUGH PAIN/AGITATION Stop: 02/25/18 16:26 Discontinue Previous Narcotic Pain Medications And Benzodiazepines 1 each FS .ONE [facility] Stop: 02/25/18 16:26 Oxcarbazepine (Trileptal) 600 mg PO BID [facility] Last Admin: 01/27/18 09:17 Dose: 600 mg Pantoprazole Sodium (Protonix) 40 mg IVP DAILY [facility] Last Admin: 01/27/18 09:17 Dose: 40 mg Propofol (Diprivan) 1,000 mg IV INF PRN; Protocol PRN Reason: TO ACHIEVE GOAL RASS Stop: 02/25/18 16:26 Last Admin: 01/27/18 12:30 Dose: 1,000 mg Propofol (Diprivan Bolus) 20 mg IV Q5MIN PRN PRN Reason: BREAKTHROUGH AGITATION Stop: 02/25/18 16:26 Sodium Chloride (Flush - Normal Saline) 10 ml IVF Q12HR [facility] Last Admin: 01/27/18 09:17 Dose: 10 ml Sodium Chloride (Flush - Normal Saline) 10 ml IVF PRN PRN PRN Reason: Saline Flush Timolol Maleate (Timoptic 0.5% [facility]) 1 drop EA EYE BID [facility] Last Admin: 01/27/18 09:16 Dose: 1 drop
[2018-01-27] MEDS: Morphine 2 MG/ML SYRINGE SLOW IVP PRN (20:44)
--- NOTE | 2018-01-27 20:53 | RAD ---
CHEST ONE VIEW: 01/27/18 COMPARISON: 01/26/18, 01/27/18 at 5:12 a.m. FINDINGS: Redemonstration of an endotracheal tube and nasogastric tube. Stable positioning of a left sided vasc ular catheter. Interval placement of a right sided dual lumen catheter which appears to be projecting over the expec maru region of the superior vena cava. Stable cardiac silhouette. Patchy interstitial opacities in the lung bases. Small left sided pleural effusion. No pneumothorax. IMPRESSION: 1. Interval placement of a right sided vascular catheter which is presumed to be in the superior vena cava. No pneumothorax. 2. Bibasilar opacities as described above. 3. Redemonstration of a left sided vascular catheter as described above. 4. Stable endotracheal and nasogastric tube. POS: [facility]
--- NOTE | 2018-01-27 20:55 | PRG ---
DATE OF SERVICE: 01/27/2018 Hans Boo had a hemodialysis catheter today. At this time, I will plan placing a left arm AV fi stula on 02/02/2018Wednesday. We will hopefully keep him off anticoagulations to allow regional ane sthesia for left arm fistula. We will plan that Wednesday. Ultrasound vein mapping reveals good vei ns for primary fistula.
[2018-01-27] MEDS: fentaNYL Citrate/PF 2,000 MCG in Sodium Chloride 0.9% 60 ML IV SCH (21:38)
[2018-01-28] MEDS: Albumin 25% 25 GM/100 ML BOT IVPB SCH ×5 (00:18→23:45)
[2018-01-28] MEDS: Acetaminophen 325 MG TAB PO SCH ×5 (00:19→23:44)
[2018-01-28 05:22] LABS: #Basophils 0.1 thou/uL (0.0-0.2); #Lymphocytes 0.3 thou/uL (1.20-3.40); #Monocytes 0.4 thou/uL (0.11-0.59); #Neutrophils 8.2 thou/uL (1.40-6.50); %Basophils 1.2 % (0.0-1.0); %Eosinophils 0.3 % (0.0-10.0); %Lymphocytes 3.3 % (21.0-51.0); %Monocytes 4.7 % (0.0-10.0); %Neutrophils 90.6 % (42.0-75.0); Hemoglobin 8.2 g/dL (14.0-18.0); Mean Corpuscular HGB CONC 33.3 g/dL (32.0-36.0); Mean Corpuscular Hemoglobin 29.5 pg (27.0-31.0); Mean Corpuscular Volume 88.7 fL (78.0-98.0); Mean Platelet Volume 8.3 fL (7.4-10.4); Platelet Count 38 thou/uL (130-400); RBC Distribution Width 13.4 % (11.5-14.5); Red Blood Cell (RBC) Count 2.77 mill/uL (4.70-6.10); White Blood Cell (WBC) Count 9.1 thou/uL (4.8-10.8)
[2018-01-28 05:32] LABS: Anion Gap 17 mmol/L (10-20); BUN (Urea Nitrogen) 69 mg/dL (8.9-20.6); Calc. Creatinine Clearance 28 mL/min (70-130); Calcium 8.7 mg/dL (7.8-10.44); Carbon Dioxide 19 mmol/L (22-29); Chloride 103 mmol/L (98-107); Estimated GFR-MDRD 10; Glucose 143 mg/dL (70-105); Potassium 4.9 mmol/L (3.5-5.1); Sodium 134 mmol/L (136-145)
--- NOTE | 2018-01-28 07:40 | OP ---
DATE OF PROCEDURE: 01/27/2018 PREOPERATIVE DIAGNOSES: End-stage renal disease with superimposed acute renal failure due to hemorrh aging left kidney requiring embolization with vena cava filter and occluded cava and iliac veins, non functioning temporary dialysis catheter, left femoral. Left IJ catheter, central line and duplicated vena cava. POSTOPERATIVE DIAGNOSES: End-stage renal disease with superimposed acute renal failure due to hemorr haging left kidney requiring embolization with vena cava filter and occluded cava and iliac veins non functioning temporary dialysis catheter, left femoral. Left IJ catheter, central line and duplicated vena cava. PROCEDURE: Right IJ cuffed tunnel hemodialysis catheter. SURGEON: Dany Wagner M.D. ANESTHESIA: General. Local of 0.5% Marcaine with epinephrine 30 mL with Xylocaine, 10 mL, ultrasoun d and fluoroscopy used. PROCEDURE IN DETAIL: The patient was taken to the operating room where under general anesthesia, nec k and chest were prepared with ChloraPrep, draped in routine fashion. Local anesthetic infiltrated i nto the skin and subcutaneous tissue about the operative site. Using ultrasound guidance, the right internal jugular vein was cannulated with trocar catheter. J-wire threaded. Trocar catheter removed . Skin incised and enlarged sharply. Stab incision made over the right chest. Using the tunneling device, precurved angiodynamics cuffed tunnel hemodialysis catheter tunneled between the two incision s, placing the fabric cuff beneath the skin exit site and catheter secured with 2 interrupted sutures of 3-0 nylon. Biopatch sterile dressing applied. Smaller medium sized dilators placed over the J-w lori into the internal jugular vein removed. Dilator and pull-away sheath placed over the J-wire in s uperior vena cava and dilator and J-wire removed. Catheter placed with pull-away sheath. Pull-away sheath removed. Fluoroscopically, catheter noted to be in good position. Each port aspirated blood and flushed with saline solution and heparinized saline solution, 1000 units heparin per mL. Platysm a approximated with 4-0 Monocryl, skin with subdermal 4-0 Monocryl and DermaGlue applied.
--- NOTE | 2018-01-28 08:10 | RAD ---
SINGLE VIEW OF THE CHEST: COMPARISON: 01/27/2018. HISTORY: Ventilated patient with respiratory failure. FINDINGS: A single view of the chest shows an enlarged but stable cardiomediastinal silhouette. The endotrache al tube and central venous catheter are unchanged in position. There is still clear position of the tip of the left-sided central venous catheter. The dialysis catheter has been removed. There are mi ld to moderate bilateral pleural effusions. IMPRESSION: 1. Bilateral pleural effusions. 2. Unclear position of the central venous catheter. POS: [facility]
[2018-01-28] MEDS: OXcarbazepine 300 MG TAB PO SCH ×2 (09:37→21:34)
[2018-01-28] MEDS: Propofol 1,000 MG/100 ML VIAL IV PRN ×3 (09:37→22:38)
[2018-01-28] MEDS: Pantoprazole 40 MG VIAL IVP SCH (09:42)
[2018-01-28] MEDS: Timolol 0.5% Ophth Soln 5 ml Bottle EA EYE SCH ×2 (09:43→22:13)
--- NOTE | 2018-01-28 09:53 | PRG ---
DATE OF SERVICE: 01/28/2018 SUBJECTIVE: Mr. Boo is a 47-year-old white male who was admitted for abdominal pain and develo ped acute left renal bleed. He underwent embolization due to the persistent bleeding. We are follow ing this patient for his acute kidney injury. We have initiated dialysis. A new cuffed hemodialysis catheter was placed by Dr. Wagner. He still has very minimal urine output. He is averaging about 30 mL an hour. I have scheduled him f or a 2-hour hemodialysis with fluid removal only as tolerated by the patient. OBJECTIVE: VITAL SIGNS: Blood pressure 116/71, heart rate 86, respiratory rate 16. GENERAL: The patient is sedated and intubated on ventilator support. SKIN: Adequate turgor. HEENT: He has slightly pale conjunctivae, anicteric sclerae. NECK: No neck mass, no carotid bruits, no JVD. CHEST: No deformities. LUNGS: Decreased breath sounds. HEART: Normal sinus rhythm. No murmur, no gallops or rubs. ABDOMEN: Globular, soft, nontender, no masses. EXTREMITIES: Trace edema. MEDICATIONS: Of 01/28/2018 was reviewed. LABORATORY DATA: Of 01/28/2018, white count 9.1, hemoglobin 8.2. Sodium 134, potassium 4.9, chlorid e 103, carbon dioxide 19, BUN 69, creatinine 6.01, glucose 143, calcium 8.7. Cortisol level 8.6. ASSESSMENT AND PLAN: 1. Acute kidney injury/chronic renal failure - worsening renal dysfunction. Continue current dialys is regimen. The patient is scheduled for a 2-hour hemodialysis with fluid removal as tolerated. 2. Status post left renal bleed - patient's bleed is stabilized with embolization of the involved ki dney. P.r.n. blood transfusion. Overall, prognosis remains guarded. The case discussed with the nursing staff with the dialysis nurs es for further instruction on dialysis.
[2018-01-28 10:33] LABS: Hemoglobin 8.2 g/dL (14.0-18.0); Platelet Count 30 thou/uL (130-400)
[2018-01-28] MEDS ORDERED: Heparin 1,000 UNITS/ML VIAL ONE (11:11)
[2018-01-28 15:04] LABS: Hemoglobin 8.1 g/dL (14.0-18.0)
--- NOTE | 2018-01-28 15:43 | PDOC.PN ---
- Subjective Encounter Start Date: 01/28/18 Encounter Start Time: 09:25 Intubated, sedated. - Objective Vital Signs & Weight: Vital Signs (12 hours) Temp Pulse Resp BP 01/28/18 15:26 97.6 F 01/28/18 14:08 67 01/28/18 14:01 97.7 F 01/28/18 12:37 70 163/78 H 01/28/18 12:00 97.7 F 01/28/18 10:32 72 01/28/18 10:00 16 01/28/18 09:43 66 01/28/18 09:00 98.0 F 01/28/18 08:00 16 01/28/18 07:27 66 01/28/18 06:00 16 01/28/18 04:00 97.9 F 16 Weight Admit Weight 285 lb Weight 283 lb Most Recent Monitor Data Heart Rate from ECG 61 NIBP 117/70 NIBP BP-Mean 85 Respiration from ECG 15 SpO2 97 I&O: 01/27/18 01/28/18 01/29/18 06:59 06:59 06:59 Intake Total 52957.6 4385.6 497.9 Output Total 195 824 265 Balance 22509.6 3561.6 232.9 Result Diagrams: 01/28/18 14:55 01/28/18 04:30 Phys Exam - Physical Examination Intubated Respiratory: no wheezing, no rales, no rhonchi Cardiovascular: RRR, no significant murmur, no rub Gastrointestinal: soft, non-tender, no distention Trace edema. Dx/Plan (1) Acute respiratory failure Code(s): J96.00 - ACUTE RESPIRATORY FAILURE, UNSP W HYPOXIA OR HYPERCAPNIA Status: Acute Comment: Intubated, in CCU. Pulmonary/CC following. (2) Renal hemorrhage, left Code(s): N28.89 - OTHER SPECIFIED DISORDERS OF KIDNEY AND URETER Status: Acute Comment: s/p embolization (3) Acute on chronic kidney failure Code(s): N17.9 - ACUTE KIDNEY FAILURE, UNSPECIFIED; N18.9 - CHRONIC KIDNEY DISEASE, UNSPECIFIED Status: Acute Qualifiers: Acute renal failure type: unspecified Chronic kidney disease stage: stage 3 (moderate) Qualified Code(s): N17.9 - Acute kidney failure, unspecified; N18.3 - Chronic kidney disease, stage 3 (moderate); N18.3 - Chronic kidney disease, stage 3 (moderate) Comment: Requiring Hemodialysis. (4) Cardiomyopathy Code(s): I42.9 - CARDIOMYOPATHY, UNSPECIFIED Status: Chronic (5) Chronic deep vein thrombosis (DVT) Code(s): I82.509 - CHRONIC EMBOLISM AND THOMBOS UNSP DEEP VN UNSP LOW EXTRM Status: Chronic Qualifiers: DVT location: lower extremity Laterality: bilateral (6) Anemia due to acute blood loss Code(s): D62 - ACUTE POSTHEMORRHAGIC ANEMIA Status: Acute Comment: s/p pRBC transfusions, hemoglobin stable (7) Seizure disorder Code(s): G40.909 - EPILEPSY, UNSP, NOT INTRACTABLE, WITHOUT STATUS EPILEPTICUS Status: Chronic Comment: continue Keppra (8) Coagulation defect Status: Acute Comment: Antiphospholipid ab. Went off of meds two weeks prior to admission. Hemorrhaged into left kidney. - Plan * Continue ventilator support and dialysis.
[2018-01-28] MEDS: Lidocaine 5% Patch TD SCH (17:37)
[2018-01-28] MEDS: fentaNYL Citrate/PF 2,000 MCG in Sodium Chloride 0.9% 60 ML IV SCH (18:03)
[2018-01-28] MEDS: niCARdipine HCl 25 MG in Sodium Chloride 0.9% 250 ML 240 ML IVPB SCH ×2 (18:39→23:34)
--- NOTE | 2018-01-28 20:51 | PRG ---
DATE OF SERVICE: 01/28/2018 SUBJECTIVE: Hans Boo appears to have stabilized. Clinically does not appear to be bleeding anymore. His hemoglobin has been stable. So we will transposition out of serial hemoglobins and hematocrits to just q.a.m. CBCs. He has actually become a little hypertensive with dialysis today, so we started on a Cardene drip. PHYSICAL EXAMINATION: VITAL SIGNS: He is sedated for ventilation. LUNGS: Clear. HEART: Regular rhythm. ABDOMEN: Soft. LABORATORY DATA: Sodium 134, potassium 4.9, chloride 103, bicarb 19, BUN 69, creatinine 6.01, now has a tunnel catheter in, last hemoglobin is 8.1. PH this morning is normalizing, CO2 of 35, and PO2 140. Ventilator settings, tidal volume 500, FIO2 40%, mechanical rate of 16, PEEP of 8. Hopefully, if he remains stable, we can aggressively begin the weaning process in the morning. IMAGING DATA: Chest radiograph shows bilateral effusions which are likely related to his volume resuscitation. PLAN: Overall, I am pleased with his progress last 24 hours. Critical care time was 30 minutes. [facility]ITAL[facility]
[2018-01-28] MEDS: Lidocaine Patch Removal TOP SCH (22:11)
[2018-01-29] MEDS: Propofol 1,000 MG/100 ML VIAL IV PRN ×6 (03:27→21:21)
[2018-01-29] MEDS: niCARdipine HCl 25 MG in Sodium Chloride 0.9% 250 ML 240 ML IVPB SCH ×4 (03:51→22:39)
[2018-01-29] MEDS: Acetaminophen 325 MG TAB PO SCH ×3 (05:07→17:42)
[2018-01-29 05:27] LABS: #Basophils 0.1 thou/uL (0.0-0.2); #Lymphocytes 0.3 thou/uL (1.20-3.40); #Monocytes 0.5 thou/uL (0.11-0.59); #Neutrophils 9.6 thou/uL (1.40-6.50); %Basophils 0.9 % (0.0-1.0); %Eosinophils 0.4 % (0.0-10.0); %Lymphocytes 2.4 % (21.0-51.0); %Neutrophils 91.3 % (42.0-75.0); Hemoglobin 8.4 g/dL (14.0-18.0); Mean Corpuscular HGB CONC 33.9 g/dL (32.0-36.0); Mean Corpuscular Hemoglobin 30.1 pg (27.0-31.0); Mean Corpuscular Volume 88.9 fL (78.0-98.0); Mean Platelet Volume 8.8 fL (7.4-10.4); Platelet Count 31 thou/uL (130-400); RBC Distribution Width 13.5 % (11.5-14.5); Red Blood Cell (RBC) Count 2.77 mill/uL (4.70-6.10); White Blood Cell (WBC) Count 10.5 thou/uL (4.8-10.8)
[2018-01-29 05:30] LABS: Anion Gap 17 mmol/L (10-20); BUN (Urea Nitrogen) 68 mg/dL (8.9-20.6); Calc. Creatinine Clearance 36 mL/min (70-130); Calcium 9.2 mg/dL (7.8-10.44); Carbon Dioxide 24 mmol/L (22-29); Chloride 102 mmol/L (98-107); Estimated GFR-MDRD 14; Glucose 164 mg/dL (70-105); Potassium 4.6 mmol/L (3.5-5.1); Sodium 138 mmol/L (136-145)
[2018-01-29 07:26] LABS: Actual Bicarbonate (HCO3a) 22.5 mEq/L (22-28); Base Excess (BEa) -3.1 mEq/L (-2.0 to +3.0); CO2 Tension 42.8 mmHg (35.0-45.0); Calcium, Ionized 1.12 mmol/L (1.12-1.30); Carboxyhemoglobin (COHb) 0.7 gm% (0.0-3.0); Hemoglobin (Hb) 8.9 g/dL (14.0-18.0); O2 Tension (PaO2) 106.2 mmHg (80.0-100.0); Potassium - ABG Lab 4.63 mmol/L (3.70-5.30); pH, Arterial 7.34 (7.35-7.45)
[2018-01-29] MEDS: Lidocaine 5% Patch TD SCH (07:57)
[2018-01-29] MEDS: Pantoprazole 40 MG VIAL IVP SCH (09:28)
[2018-01-29] MEDS: OXcarbazepine 300 MG TAB PO SCH ×2 (09:47→21:22)
--- NOTE | 2018-01-29 11:11 | PRG ---
DATE OF SERVICE: 01/29/2018 SUBJECTIVE: Mr. Boo is a 47-year-old white male who was admitted for renal bleed. He underwen t embolization of the left kidney due to the persistent bleeding. His anemia and bleeding is much im proved after the said embolization of the left kidney. He also went into acute kidney injury. There is most likely superimposed acute tubular necrosis. He is currently undergoing dialysis. I am at t he bedside supervising his dialysis. We are using no heparin. Fluid removal is done as tolerated by the patient. We are attempting about 3 liters. No acute events noted last night. PHYSICAL EXAMINATION: VITAL SIGNS: Blood pressure is 136/82, heart rate 77, respiratory rate 16, pulse ox 100%. GENERAL: The patient is sedated and intubated on ventilator support. SKIN: Adequate turgor. HEENT: He has slightly pale conjunctivae, anicteric sclerae. NECK: No neck mass, no carotid bruits, no JVD. CHEST: No deformities. LUNGS: Decreased breath sounds, no wheezing, no crackles. HEART: Normal sinus rhythm. No murmur, no gallops or rubs. ABDOMEN: Globular, soft, nontender, no masses. EXTREMITIES: No edema, no deformities. MEDICATIONS: Of 01/29/2018 was reviewed. LABORATORY DATA: Of 01/29/2018, white count 10.5, hemoglobin 8.4. Sodium 138, potassium 4.6, chlori de 102, carbon dioxide 24, BUN 68, creatinine 4.61, glucose 164, calcium 9.2. ASSESSMENT AND PLAN: 1. Acute kidney injury on top of his chronic renal failure - superimposed acute tubular necrosis. S table. Tolerating current hemodialysis regimen. I am doing a 3-hour hemodialysis with him with abou t 3 liters of fluid removal. No heparin is being used. 2. Status post left renal bleed - status post embolization, stable. No evidence of acute bleeding a t the present time. Overall, agree with current management. Continue supportive care.
--- NOTE | 2018-01-29 11:30 | RAD ---
PORTABLE CHEST: HISTORY: Respiratory distress. COMPARISON: Prior day's exam. FINDINGS: Film technique is suboptimal. Heart size is enlarged. Endotracheal tube appears to be in satisfacto ry position. Right-sided HemoSplit catheter is unchanged. Parenchymal lung changes appear essential ly stable. IMPRESSION: Stable exam. POS: [facility]
[2018-01-29] MEDS: Timolol 0.5% Ophth Soln 5 ml Bottle EA EYE SCH ×2 (12:50→21:22)
--- NOTE | 2018-01-29 13:03 | PDOC.PN ---
- Subjective Encounter Start Date: 01/29/18 Encounter Start Time: 09:20 -: non-verbal - Objective Vital Signs & Weight: Vital Signs (12 hours) Temp Pulse Resp 01/29/18 12:50 85 01/29/18 12:00 97.8 F 01/29/18 10:59 85 01/29/18 10:00 16 01/29/18 08:00 97.6 F 16 01/29/18 07:11 85 01/29/18 06:00 16 01/29/18 04:00 99.0 F 18 01/29/18 02:15 80 01/29/18 02:00 16 Weight Admit Weight 285 lb Weight 283 lb Most Recent Monitor Data Heart Rate from ECG 68 NIBP 111/72 NIBP BP-Mean 85 Respiration from ECG 16 SpO2 100 I&O: 01/28/18 01/29/18 01/30/18 06:59 06:59 05:59 Intake Total 4385.6 3138.9 Output Total 824 1025 170 Balance 3561.6 2113.9 -170 Result Diagrams: 01/29/18 05:00 01/29/18 05:00 Phys Exam - Physical Examination Constitutional: NAD Intubated, sedated. Respiratory: no wheezing, no rales, no rhonchi, clear to auscultation bilateral Cardiovascular: RRR, no significant murmur Gastrointestinal: soft, no distention, positive bowel sounds Musculoskeletal: no edema Dx/Plan (1) Acute respiratory failure Code(s): J96.00 - ACUTE RESPIRATORY FAILURE, UNSP W HYPOXIA OR HYPERCAPNIA Status: Acute Comment: Intubated, in CCU. Pulmonary/CC following. (2) Renal hemorrhage, left Code(s): N28.89 - OTHER SPECIFIED DISORDERS OF KIDNEY AND URETER Status: Acute Comment: s/p embolization (3) Acute on chronic kidney failure Code(s): N17.9 - ACUTE KIDNEY FAILURE, UNSPECIFIED; N18.9 - CHRONIC KIDNEY DISEASE, UNSPECIFIED Status: Acute Qualifiers: Acute renal failure type: unspecified Chronic kidney disease stage: stage 3 (moderate) Qualified Code(s): N17.9 - Acute kidney failure, unspecified; N18.3 - Chronic kidney disease, stage 3 (moderate); N18.3 - Chronic kidney disease, stage 3 (moderate) Comment: Requiring Hemodialysis. (4) Cardiomyopathy Code(s): I42.9 - CARDIOMYOPATHY, UNSPECIFIED Status: Chronic (5) Chronic deep vein thrombosis (DVT) Code(s): I82.509 - CHRONIC EMBOLISM AND THOMBOS UNSP DEEP VN UNSP LOW EXTRM Status: Chronic Qualifiers: DVT location: lower extremity Laterality: bilateral (6) Anemia due to acute blood loss Code(s): D62 - ACUTE POSTHEMORRHAGIC ANEMIA Status: Acute Comment: s/p pRBC transfusions, hemoglobin stable (7) Seizure disorder Code(s): G40.909 - EPILEPSY, UNSP, NOT INTRACTABLE, WITHOUT STATUS EPILEPTICUS Status: Chronic Comment: continue Keppra (8) Coagulation defect Status: Acute Comment: Antiphospholipid ab. Went off of meds two weeks prior to admission. Hemorrhaged into left kidney. - Plan * HD was able to pull off some fluid yesterday. Will have 3 hour session today. * Pulm to wean vent as tolerated today.
[2018-01-29] MEDS: fentaNYL Citrate/PF 2,000 MCG in Sodium Chloride 0.9% 60 ML IV SCH (15:14)
--- NOTE | 2018-01-29 16:55 | PRG ---
DATE OF SERVICE: 01/29/2018 SUBJECTIVE: Hans Boo remains mechanically ventilated. OBJECTIVE: VITAL SIGNS: Blood pressure 150/88, heart rate is 80, respiratory rate is 21. LUNGS: Clear. HEART: Regular rhythm. ABDOMEN: Soft. LABORATORY DATA: White count 10.5, hemoglobin stable at 8.4, platelets 31,000. Sodium 138, potassium 4.6, chloride 102, bicarbonate 24, BUN 68, creatinine 4.61. Chest radiograph is stable. He still has a right femoral arterial sheath in place. We will remove this in the morning after we g otf him platelets. IMPRESSION: 1. Status post renal hemorrhage leading to embolization of the entire left kidney. 2. Respiratory failure. He was intubated prophylactically. 3. Status post large volume resuscitation. 4. Thrombocytopenia. 5. Inferior vena cava filter in place with a history of anticoagulation. PLAN: Continue mechanical ventilation with slow weaning. Hopefully, within 24-48 hours, we can cons ider extubation.
[2018-01-29] MEDS: Lidocaine Patch Removal TOP SCH (21:22)
--- NOTE | 2018-01-29 23:31 | EKG ---
Test Reason : Blood Pressure : / mmHG Vent. Rate : 083 BPM Atrial Rate : 083 BPM P-R Int : 138 ms QRS Dur : 098 ms QT Int : 416 ms P-R-T Axes : 046 011 077 degrees QTc Int : 488 ms Normal sinus rhythm Possible Left atrial enlargement Possible Inferior infarct , age undetermined Abnormal ECG Confirmed by ULI HERNANDEZ ([id number]), publications editor MAL KHALIL ([id number]) on 01/29/2018 11:31:10 PM Referred By: Confirmed By:ULI HERNANDEZ
[2018-01-30] MEDS: Acetaminophen 650 MG/20.3 ML UDCUP PO SCH ×4 (00:12→18:38)
[2018-01-30] MEDS: Propofol 1,000 MG/100 ML VIAL IV PRN ×3 (00:14→14:03)
[2018-01-30 05:00] LABS: #Lymphocytes 0.3 thou/uL (1.20-3.40); #Monocytes 0.4 thou/uL (0.11-0.59); #Neutrophils 6.8 thou/uL (1.40-6.50); %Eosinophils 0.6 % (0.0-10.0); %Lymphocytes 4.5 % (21.0-51.0); %Monocytes 5.3 % (0.0-10.0); %Neutrophils 89.7 % (42.0-75.0); Hemoglobin 7.8 g/dL (14.0-18.0); Mean Corpuscular HGB CONC 33.1 g/dL (32.0-36.0); Mean Corpuscular Hemoglobin 29.3 pg (27.0-31.0); Mean Corpuscular Volume 88.7 fL (78.0-98.0); Mean Platelet Volume 9.2 fL (7.4-10.4); Platelet Count 45 thou/uL (130-400); RBC Distribution Width 13.6 % (11.5-14.5); Red Blood Cell (RBC) Count 2.65 mill/uL (4.70-6.10); White Blood Cell (WBC) Count 7.6 thou/uL (4.8-10.8)
[2018-01-30 05:17] LABS: Anion Gap 18 mmol/L (10-20); BUN (Urea Nitrogen) 74 mg/dL (8.9-20.6); Calc. Creatinine Clearance 44 mL/min (70-130); Carbon Dioxide 24 mmol/L (22-29); Chloride 100 mmol/L (98-107); Estimated GFR-MDRD 17; Glucose 205 mg/dL (70-105); Potassium 4.5 mmol/L (3.5-5.1); Sodium 137 mmol/L (136-145)
[2018-01-30] MEDS ORDERED: Heparin 1,000 UNITS/ML VIAL ONE (07:09)
[2018-01-30 08:10] LABS: Actual Bicarbonate (HCO3a) 24.4 mEq/L (22-28); Base Excess (BEa) -1.2 mEq/L (-2.0 to +3.0); CO2 Tension 44.4 mmHg (35.0-45.0); Calcium, Ionized 1.14 mmol/L (1.12-1.30); Carboxyhemoglobin (COHb) 0.9 gm% (0.0-3.0); Hemoglobin (Hb) 9.6 g/dL (14.0-18.0); O2 Tension (PaO2) 137.6 mmHg (80.0-100.0); Potassium - ABG Lab 4.56 mmol/L (3.70-5.30); pH, Arterial 7.36 (7.35-7.45)
[2018-01-30 08:21] LABS: Puncture Site A-LINE
[2018-01-30] MEDS: Lidocaine 5% Patch TD SCH (09:24)
[2018-01-30] MEDS: OXcarbazepine 300 MG TAB PO SCH ×2 (09:24→22:13)
[2018-01-30] MEDS: Pantoprazole 40 MG VIAL IVP SCH (09:24)
[2018-01-30] MEDS: niCARdipine HCl 50 MG in Sodium Chloride 0.9% 250 ML 230 ML IVPB SCH (09:37)
--- NOTE | 2018-01-30 10:21 | RAD ---
PORTABLE CHEST: HISTORY: Respiratory distress. COMPARISON: 01/29/2018 exam. FINDINGS: Endotracheal tube and right HemoSplit catheter are unchanged in position. Heart size is enlarged. B ibasilar lung changes are stable. IMPRESSION: Stable chest. POS: [facility]
--- NOTE | 2018-01-30 10:56 | PRG ---
DATE OF SERVICE: 01/30/2018 SUBJECTIVE: Mr. Boo is a 47-year-old white male seen today in service for his acute kidney inj ury secondary to possible ischemic acute tubular necrosis on top of his chronic renal failure. His w as initially admitted for abdominal pain. He was subsequently diagnosed to have a left renal bleed/r etroperitoneal hematoma. He underwent a selective embolization of this left kidney. The bleeding carmona s somewhat stabilized. I am currently dialyzing the patient. Fluid removal will be done only as malika erated. He will receive 1 unit of packed RBC with dialysis. No acute events noted last night. PHYSICAL EXAMINATION: VITAL SIGNS: Blood pressure 173/81, heart rate is 95, respiratory rate 18, pulse ox 100%. GENERAL: Sedated and intubated on ventilator support. SKIN: Adequate turgor. HEENT: Slightly pale conjunctivae, anicteric sclerae. NECK: No neck mass, no carotid bruits, no JVD. CHEST: No deformities. LUNGS: Decreased breath sounds, no wheezing, no crackles. HEART: Normal sinus rhythm. No murmur, no gallops, no rubs. ABDOMEN: Globular, soft, nontender. No masses. EXTREMITIES: No edema, no deformities. MEDICATIONS: Medications of 01/30/2018 was reviewed. LABORATORY DATA: Laboratories of 01/30/2018, white count 7.6, hemoglobin 7.8. Sodium 137, potassium 4.5, chloride 100, carbon dioxide 24, BUN 74, creatinine 3.76, glucose 205, calcium 9.0. His I and O was reviewed and it was noted he made about 595 mL of urine output last night and yesterday he made about a liter. ASSESSMENT AND PLAN: 1. Acute kidney injury on top of his chronic renal failure -- he may have superimposed acute tubular necrosis. Continue supportive care. Fluid removal as tolerated by this patient. He is still makin g some urine output. Unclear if he will have enough renal recovery to get him off dialysis. We will be evaluating him on a daily basis. For the moment, we will do a 4-hour hemodialysis today. In the next few days, we will hold off dialysis and see where the renal function will fall. 2. Status post left renal bleed -- status post embolization, doing well, stabilizing H and H. Hemog lobin was slightly lower today at 7.8. We will give him 1 unit of packed RBC with dialysis. Overall , prognosis remains guarded. Case discussed at length with the .
[2018-01-30] MEDS: fentaNYL Citrate/PF 2,000 MCG in Sodium Chloride 0.9% 60 ML IV SCH ×2 (12:24→19:30)
--- NOTE | 2018-01-30 12:44 | PDOC.PN ---
- Subjective Encounter Start Date: 01/30/18 Encounter Start Time: 11:55 -: non-verbal - Objective Vital Signs & Weight: Vital Signs (12 hours) Temp Pulse Pulse Resp BP BP Pulse Ox 01/30/18 12:27 85 195/96 H 01/30/18 12:21 97.5 F L 88 16 189/88 H 100 01/30/18 12:07 97.6 F 81 16 187/91 H 01/30/18 10:00 18 01/30/18 08:00 21 H 100 01/30/18 07:42 110 H 165/92 H 01/30/18 07:00 97.7 F 01/30/18 06:00 16 01/30/18 04:00 97.6 F 16 01/30/18 02:35 55 L 112/58 L 01/30/18 02:00 16 Weight Admit Weight 285 lb Weight 283 lb Most Recent Monitor Data Heart Rate from ECG 88 NIBP 170/95 NIBP BP-Mean 120 Respiration from ECG 15 SpO2 100 I&O: 01/29/18 01/30/18 01/31/18 07:59 06:59 06:59 Intake Total 380 Output Total 90 Balance 290 Result Diagrams: 01/30/18 04:00 01/30/18 04:00 Phys Exam - Physical Examination Constitutional: NAD Intubated. Respiratory: no wheezing, no rales, no rhonchi, clear to auscultation bilateral Cardiovascular: RRR, no significant murmur, no rub Gastrointestinal: soft, non-tender, no distention, positive bowel sounds Musculoskeletal: no edema Dx/Plan (1) Acute respiratory failure Code(s): J96.00 - ACUTE RESPIRATORY FAILURE, UNSP W HYPOXIA OR HYPERCAPNIA Status: Acute Comment: Intubated, in CCU. Pulmonary/CC following. (2) Renal hemorrhage, left Code(s): N28.89 - OTHER SPECIFIED DISORDERS OF KIDNEY AND URETER Status: Acute Comment: s/p embolization (3) Acute on chronic kidney failure Code(s): N17.9 - ACUTE KIDNEY FAILURE, UNSPECIFIED; N18.9 - CHRONIC KIDNEY DISEASE, UNSPECIFIED Status: Acute Qualifiers: Acute renal failure type: unspecified Chronic kidney disease stage: stage 3 (moderate) Qualified Code(s): N17.9 - Acute kidney failure, unspecified; N18.3 - Chronic kidney disease, stage 3 (moderate); N18.3 - Chronic kidney disease, stage 3 (moderate) Comment: Requiring Hemodialysis. HD to be held over the next couple of days to determine his baseline renal function and determine if HD will be required going forward. (4) Cardiomyopathy Code(s): I42.9 - CARDIOMYOPATHY, UNSPECIFIED Status: Chronic (5) Chronic deep vein thrombosis (DVT) Code(s): I82.509 - CHRONIC EMBOLISM AND THOMBOS UNSP DEEP VN UNSP LOW EXTRM Status: Chronic Qualifiers: DVT location: lower extremity Laterality: bilateral (6) Anemia due to acute blood loss Code(s): D62 - ACUTE POSTHEMORRHAGIC ANEMIA Status: Acute Comment: s/p pRBC transfusions, hemoglobin down again. Transfusing again now with HD. (7) Seizure disorder Code(s): G40.909 - EPILEPSY, UNSP, NOT INTRACTABLE, WITHOUT STATUS EPILEPTICUS Status: Chronic Comment: continue Keppra (8) Coagulation defect Status: Acute Comment: Antiphospholipid ab. Went off of meds two weeks prior to admission. Hemorrhaged into left kidney. - Plan * Continue to get fluid off with HD today. Weaning as tolerated. He was able to wake up and follow commands well with sedation holiday this morning. Hopeful for extubation in next 24-48 hours. * At some point will need to address long-term anticoagulation issues.
[2018-01-30] MEDS: Timolol 0.5% Ophth Soln 5 ml Bottle EA EYE SCH ×2 (12:45→22:13)
[2018-01-30] MEDS ORDERED: Heparin 10,000 UNITS/ 10 ML VIAL ONE (13:07)
--- NOTE | 2018-01-30 17:38 | PRG ---
DATE OF SERVICE: 01/30/2018 SUBJECTIVE: He is awake and will move his extremities. He is a little confused. He just shakes his head, nodded to every question asked of him. His IMV was at 16 this morning, turning down to a rate of 4. His minute volume was less than 10 liters per minute. OBJECTIVE: LUNGS: Clear anteriorly. HEART: Regular rhythm. ABDOMEN: Soft. LABORATORY DATA: White count 7.6, hemoglobin 7.8, platelets 45,000. He will receive platelets today and then his A-line will be removed. He will receive 1 unit of packed cells. Sodium 137, potassium 4.5, chloride 100, bicarbonate 24, BUN 74, creatinine 3.76. He is being dialyz ed today. IMPRESSION: 1. Status post intubation for abdominal blood loss. 2. Status post renal subcapsular hemorrhage requiring embolization of left kidney. 3. Acute on chronic kidney disease with renal failure. 4. History of seizure disorder with actually a craniotomy and resection of what was felt to be the f ocus of his seizures. He went for many years without seizures and then had a recurrence of seizures. I met with the and answered all of her questions and hopefully, we can extubate him tomorrow if he remains stable. Critical care time, 30 minutes.
[2018-01-30] MEDS: Lidocaine Patch Removal TOP SCH (22:14)
[2018-01-31] MEDS: Propofol 1,000 MG/100 ML VIAL IV PRN ×5 (00:11→21:30)
[2018-01-31] MEDS: Acetaminophen 650 MG/20.3 ML UDCUP PO SCH ×4 (00:11→19:54)
[2018-01-31 04:32] LABS: Anion Gap 18 mmol/L (10-20); BUN (Urea Nitrogen) 71 mg/dL (8.9-20.6); Calc. Creatinine Clearance 56 mL/min (70-130); Calcium 9.1 mg/dL (7.8-10.44); Carbon Dioxide 26 mmol/L (22-29); Chloride 97 mmol/L (98-107); Estimated GFR-MDRD 23; Glucose 163 mg/dL (70-105); Potassium 4.7 mmol/L (3.5-5.1); Sodium 136 mmol/L (136-145)
[2018-01-31] MEDS: fentaNYL Citrate/PF 2,000 MCG in Sodium Chloride 0.9% 60 ML IV SCH ×2 (05:59→16:58)
--- NOTE | 2018-01-31 07:29 | PRG ---
DATE OF SERVICE: 01/31/2018 SUBJECTIVE: He was evaluated. He is not cooperative enough to extubate today. OBJECTIVE: VITAL SIGNS: His heart rate in the 80s. Blood pressure 158/83, respiratory rate is 12, oximetry is 97%. LUNGS: Clear. HEART: Regular rhythm. ABDOMEN: Soft. IMAGING: Chest radiograph shows no new infiltrates. White count 10.6, hemoglobin 7.8, platelets 45,000. Sodium 136, potassium 4.7, chloride 97, bicarbonate 26, BUN 71, creatinine 2.96. Intake and output positive 3168. Urine output was 855. IMPRESSION: 1. Status post subcapsular renal hemorrhage. 2. Status post embolization of his left kidney. 3. Status post intubation prophylactically because of massive intra-abdominal bleeding. 4. Encephalopathy. 5. Preexisting cerebral function issues secondary to a past craniotomy for seizure disorder. 6. History of seizure disorder. 7. History of DVTs. 8. He has an inferior vena cava filter in place. PLAN: Continue with dialysis. We will start Precedex and hopefully by tomorrow. On Precedex, we can wean him off the other sedation and he will be cooperative enough to consider extubation. Critical care time was 30 minutes. [facility]
[2018-01-31] MEDS: OXcarbazepine 300 MG TAB PO SCH ×2 (08:50→21:54)
[2018-01-31] MEDS: Pantoprazole 40 MG VIAL IVP SCH (08:50)
[2018-01-31] MEDS: Timolol 0.5% Ophth Soln 5 ml Bottle EA EYE SCH ×2 (09:10→21:54)
--- NOTE | 2018-01-31 09:27 | PRG ---
DATE OF SERVICE: 01/31/2018 SUBJECTIVE: Mr. Boo is a 47-year-old white male who has been seen by the Renal Service for hi s acute kidney injury on top of his chronic renal failure. He had a left subcapsular renal hemorrhag e. He underwent embolization. He also went into acute respiratory failure and currently intubated. He is also undergoing hemodialysis. The last urine output was 855 mL per hour. He underwent 4 hours dialysis yesterday. There is no indication for any dialytic intervention today. No other acute events noted last night. PHYSICAL EXAMINATION: VITAL SIGNS: Blood pressure is 157/83, heart rate 82, respiratory rate 12, pulse ox 97%. GENERAL: The patient is sedated and intubated on ventilator support. SKIN: Adequate turgor. HEENT: Slightly pale conjunctivae, anicteric sclerae. NECK: No neck mass, no carotid bruits, no JVD. CHEST: No deformities. LUNGS: Decreased breath sounds. HEART: Normal sinus rhythm. No murmur, no gallops, no rubs. ABDOMEN: Globular, soft, nontender, no masses. EXTREMITIES: No edema, no deformities. MEDICATIONS: 01/31/2018 - Reviewed. LABORATORY: 01/31/2018 - Sodium 136, potassium 4.7, chloride 97, carbon dioxide 26, BUN 71, creatini ne 2.96, glucose 163, calcium 9.1. 01/30/2018 - Hemoglobin 7.8. ASSESSMENT AND PLAN: 1. Acute kidney injury/chronic renal failure - superimposed acute tubular necrosis. Continue dialyt ic intervention. The patient has been now placed on 3 times a week hemodialysis. Fluid removal only as tolerated by the patient. 2. Anemia - p.r.n. blood transfusion. 3. Status post left renal bleed - status post embolization. No active bleeding. As previously ment ioned p.r.n. blood transfusion. Continue supportive care.
--- NOTE | 2018-01-31 09:31 | RAD ---
SINGLE VIEW OF THE CHEST: Comparison: 01-30-18 History: Ventilated patient with respiratory failure. FINDINGS: Single view of the chest shows an enlarged but stable cardiomediastinal silhouette. The lines and tub es are unchanged in position. There are still unclear position of the left IJ central venous catheter . Atelectasis is seen in the lung bases with small adjacent pleural effusions. IMPRESSION: 1. Stable exam. 2. Unclear position of left IJ central venous catheter. POS: [facility]
[2018-01-31] MEDS: Lidocaine 5% Patch TD SCH (10:03)
[2018-01-31] MEDS: niCARdipine HCl 50 MG in Sodium Chloride 0.9% 250 ML 230 ML IVPB SCH (10:04)
[2018-01-31 13:58] LABS: #Eosinphils 0.1 thou/uL (0.0-0.7); #Lymphocytes 0.4 thou/uL (1.20-3.40); #Monocytes 0.4 thou/uL (0.11-0.59); #Neutrophils 6.6 thou/uL (1.40-6.50); %Basophils 0.1 % (0.0-1.0); %Eosinophils 1.1 % (0.0-10.0); %Lymphocytes 5.3 % (21.0-51.0); %Monocytes 5.1 % (0.0-10.0); %Neutrophils 88.5 % (42.0-75.0); Hemoglobin 8.9 g/dL (14.0-18.0); Mean Corpuscular HGB CONC 33.2 g/dL (32.0-36.0); Mean Corpuscular Hemoglobin 29.7 pg (27.0-31.0); Mean Corpuscular Volume 89.5 fL (78.0-98.0); Mean Platelet Volume 8.5 fL (7.4-10.4); Platelet Count 56 thou/uL (130-400); RBC Distribution Width 13.6 % (11.5-14.5); Red Blood Cell (RBC) Count 2.99 mill/uL (4.70-6.10); White Blood Cell (WBC) Count 7.5 thou/uL (4.8-10.8)
[2018-01-31] MEDS: Lidocaine Patch Removal TOP SCH (20:36)
--- NOTE | 2018-01-31 21:51 | PDOC.PN ---
- Subjective Encounter Start Date: 01/31/18 Encounter Start Time: 10:35 -: non-verbal - Objective Vital Signs & Weight: Vital Signs (12 hours) Temp Pulse Resp BP 01/31/18 18:00 97.1 F L 15 01/31/18 17:00 96.4 F L 01/31/18 16:00 95.5 F L 12 01/31/18 14:35 64 138/72 01/31/18 14:00 18 01/31/18 12:00 97.6 F 15 01/31/18 11:03 58 L 116/59 L 01/31/18 10:00 17 Weight Admit Weight 285 lb Weight 311 lb 8.211 oz Most Recent Monitor Data Heart Rate from ECG 65 NIBP 160/83 NIBP BP-Mean 108 Respiration from ECG 22 SpO2 98 I&O: 01/30/18 01/31/18 02/01/18 06:59 06:59 06:59 Intake Total 3204.3 1917.7 Output Total 855 575 Balance 2349.3 1342.7 Result Diagrams: 01/31/18 13:26 01/31/18 03:47 Phys Exam - Physical Examination Constitutional: NAD Intubated. Respiratory: no wheezing, no rales, no rhonchi, clear to auscultation bilateral Cardiovascular: RRR, no significant murmur Gastrointestinal: soft, non-tender, no distention Musculoskeletal: no edema Dx/Plan (1) Acute respiratory failure Code(s): J96.00 - ACUTE RESPIRATORY FAILURE, UNSP W HYPOXIA OR HYPERCAPNIA Status: Acute Comment: Intubated, in CCU. Pulmonary/CC following. (2) Renal hemorrhage, left Code(s): N28.89 - OTHER SPECIFIED DISORDERS OF KIDNEY AND URETER Status: Acute Comment: s/p embolization (3) Acute on chronic kidney failure Code(s): N17.9 - ACUTE KIDNEY FAILURE, UNSPECIFIED; N18.9 - CHRONIC KIDNEY DISEASE, UNSPECIFIED Status: Acute Qualifiers: Acute renal failure type: unspecified Chronic kidney disease stage: stage 3 (moderate) Qualified Code(s): N17.9 - Acute kidney failure, unspecified; N18.3 - Chronic kidney disease, stage 3 (moderate); N18.3 - Chronic kidney disease, stage 3 (moderate) Comment: Requiring Hemodialysis. HD to be held over the next couple of days to determine his baseline renal function and determine if HD will be required going forward. (4) Cardiomyopathy Code(s): I42.9 - CARDIOMYOPATHY, UNSPECIFIED Status: Chronic (5) Chronic deep vein thrombosis (DVT) Code(s): I82.509 - CHRONIC EMBOLISM AND THOMBOS UNSP DEEP VN UNSP LOW EXTRM Status: Chronic Qualifiers: DVT location: lower extremity Laterality: bilateral (6) Anemia due to acute blood loss Code(s): D62 - ACUTE POSTHEMORRHAGIC ANEMIA Status: Acute Comment: s/p pRBC transfusions (7) Seizure disorder Code(s): G40.909 - EPILEPSY, UNSP, NOT INTRACTABLE, WITHOUT STATUS EPILEPTICUS Status: Chronic Comment: continue Keppra (8) Coagulation defect Status: Acute Comment: Antiphospholipid ab. Went off of meds two weeks prior to admission. Hemorrhaged into left kidney. - Plan * Above.
[2018-02-01] MEDS: Acetaminophen 650 MG/20.3 ML UDCUP PO SCH ×5 (01:07→17:47)
[2018-02-01 04:50] LABS: #Eosinphils 0.1 thou/uL (0.0-0.7); #Lymphocytes 0.5 thou/uL (1.20-3.40); #Monocytes 0.6 thou/uL (0.11-0.59); #Neutrophils 8.4 thou/uL (1.40-6.50); %Basophils 0.1 % (0.0-1.0); %Eosinophils 0.6 % (0.0-10.0); %Lymphocytes 5.5 % (21.0-51.0); %Monocytes 6.3 % (0.0-10.0); %Neutrophils 87.5 % (42.0-75.0); Hemoglobin 9.6 g/dL (14.0-18.0); Mean Corpuscular HGB CONC 32.2 g/dL (32.0-36.0); Mean Corpuscular Volume 89.9 fL (78.0-98.0); Mean Platelet Volume 9.2 fL (7.4-10.4); Platelet Count 70 thou/uL (130-400); RBC Distribution Width 14.1 % (11.5-14.5); Red Blood Cell (RBC) Count 3.32 mill/uL (4.70-6.10); White Blood Cell (WBC) Count 9.6 thou/uL (4.8-10.8)
[2018-02-01 05:02] LABS: Anion Gap 16 mmol/L (10-20); BUN (Urea Nitrogen) 111 mg/dL (8.9-20.6); Calc. Creatinine Clearance 53 mL/min (70-130); Calcium 9.2 mg/dL (7.8-10.44); Carbon Dioxide 25 mmol/L (22-29); Chloride 99 mmol/L (98-107); Estimated GFR-MDRD 19; Glucose 163 mg/dL (70-105); Potassium 5.3 mmol/L (3.5-5.1); Sodium 135 mmol/L (136-145)
[2018-02-01] MEDS: niCARdipine HCl 50 MG in Sodium Chloride 0.9% 250 ML 230 ML IVPB SCH ×2 (05:45→23:32)
--- NOTE | 2018-02-01 09:26 | PRG ---
DATE OF SERVICE: 02/01/2018 SUBJECTIVE: Mr. Boo is a 47-year-old white male who was initially admitted due to abdominal pa in and findings of a left renal bleed. He underwent emergent embolization. Also went into acute kid lisandra injury on top of his chronic renal failure. He is currently on maintenance hemodialysis. We are planning to do a 4-hour hemodialysis today with this patient with fluid removal only as tolera maru. Blood pressure still remains to be elevated. Hopefully, with maxing out fluid removal will imp rove the blood pressure. No acute events noted last night. PHYSICAL EXAMINATION: VITAL SIGNS: Blood pressure is 146/76 with a heart rate of 73, respiratory rate 16, pulse oximetry 9 6%. GENERAL: Patient is sedated, intubated on ventilator support. SKIN: Adequate turgor. HEENT: Slightly pale conjunctivae, anicteric sclerae. NECK: No neck mass, no carotid bruits, no JVD. CHEST: No deformities. LUNGS: Decreased breath sounds. HEART: Normal sinus rhythm. No murmur, no gallops, no rubs. ABDOMEN: Globular, soft, nontender, no masses. EXTREMITIES: No edema, no deformities. MEDICATIONS: 02/01/2018 - Reviewed. LABORATORY DATA: 02/01/2018 - Sodium 135, potassium 4.3, chloride 99, carbon dioxide 25, BUN 111, cr eatinine 3.45, glucose 163, calcium 9.2, white count 9.6, hemoglobin 9.6. ASSESSMENT AND PLAN: 1. Acute kidney injury/chronic renal failure - most likely a superimposed acute tubular necrosis. C ontinue supportive care. We will continue Wednesday, Wednesday, Wednesday hemodialysis. Due to the elevat ed BP, max out fluid removal as tolerated by the patient. 2. Hypertension, currently on nicardipine drip and p.o. blood pressure meds. We will as previously mentioned, max out fluid removal with the dialysis today. 3. Status post left renal bleed - status post embolization, stable hemoglobin and hematocrit. 4. Patient will be scheduled for an AV fistula placement. Overall I agree with current management.
--- NOTE | 2018-02-01 09:34 | RAD ---
PORTABLE CHEST: Date: 02/01/18 PROVIDED CLINICAL HISTORY: Respiratory insufficiency. FINDINGS: Comparison made with the study dated 01/31/18. Interval increase in right basilar pleural parenchymal opacity. Lines and tubes are unchanged in appe arance with catheter overlying the medial left hemithorax, again uncertain in terms of positioning. N o evidence for pneumothorax. Prominence of the pulmonary vasculature and pulmonary interstitium. Card iomegaly. IMPRESSION: 1. Increasing right basilar pleural parenchymal opacity. 2. Unclear positioning of the left hemithoracic presumably vascular catheter. CODE T. POS: [facility]
[2018-02-01] MEDS: Pantoprazole 40 MG VIAL IVP SCH (10:02)
[2018-02-01] MEDS: OXcarbazepine 300 MG TAB PO SCH ×2 (10:02→22:01)
[2018-02-01] MEDS: Lidocaine 5% Patch TD SCH ×2 (10:03→10:53)
[2018-02-01] MEDS: Timolol 0.5% Ophth Soln 5 ml Bottle EA EYE SCH ×2 (10:52→22:02)
--- NOTE | 2018-02-01 15:52 | PRG ---
DATE OF SERVICE: 02/01/2018 SUBJECTIVE: Hans Boo looking good this morning. He was turned down to 5/ 5 with his imv off. He has been turned down to 3/3 and observed for another 30 minutes. His minute volume remained about 8 liters a minute. His respiratory rate to tidal volume ratio is less than 30. He passed a leak test. OBJECTIVE:Vitals have been stable thru the trial of decreased vent support. LUNGS: His lungs were clear. HEART: Regular rhythm. ABDOMEN: Soft. EXTREMITIES: Without asymmetry. Intake and output is positive 1421. LABORATORY DATA: White count 9.6, hemoglobin 9.6, platelets 70,000. Sodium 135 , potassium 5.3, chloride 99, bicarbonate 25, BUN 111, creatinine 3.45. IMPRESSION: 1. Respiratory failure. He will have 4 hours of dialysis today. 2. Renal failure. 3. Status post embolization of kidney after a subcapsular renal hemorrhage. 4. History of an inferior vena cava filter. 5. History of seizure disorder. Overall, he is stable. I felt he was a candidate for extubation. He has been examined multiple times afterwards and appears comfortable. He is minimally verbal at the time, but is awake. His Precedex has been discontinued. We will update his on his current progress. Critical care time 35 minutes. HERMELINDAD
[2018-02-01] MEDS: Lidocaine Patch Removal TOP SCH (19:43)
--- NOTE | 2018-02-01 20:52 | PDOC.PN ---
- Subjective Encounter Start Date: 02/01/18 Encounter Start Time: 13:30 Extubated. Asks why he is here. Denies pain. - Objective Vital Signs & Weight: Vital Signs (12 hours) Temp Pulse Resp BP Pulse Ox 02/01/18 20:00 98.1 F 95 02/01/18 16:00 97.5 F L 02/01/18 12:16 64 12 95 02/01/18 12:00 98.6 F 12 96 02/01/18 10:52 68 152/84 H 02/01/18 10:15 87 157/74 H 02/01/18 10:00 11 L Weight Admit Weight 285 lb Weight 315 lb 14.758 oz Most Recent Monitor Data Heart Rate from ECG 85 NIBP 169/92 NIBP BP-Mean 117 Respiration from ECG 23 SpO2 95 I&O: 01/31/18 02/01/18 02/02/18 06:59 06:59 06:59 Intake Total 3204.3 3011.5 Output Total 855 1590 775 Balance 2349.3 1421.5 -775 Result Diagrams: 02/01/18 04:23 02/01/18 04:23 Phys Exam - Physical Examination Constitutional: NAD Hematoma on the right lateral, upper neck associated with tunneled catheter Respiratory: no wheezing, no rales, no rhonchi, clear to auscultation bilateral Cardiovascular: RRR, no significant murmur Gastrointestinal: soft, non-tender, no distention Trace edema Dx/Plan (1) Acute respiratory failure Code(s): J96.00 - ACUTE RESPIRATORY FAILURE, UNSP W HYPOXIA OR HYPERCAPNIA Status: Acute Comment: Intubated, in CCU. Pulmonary/CC following. (2) Renal hemorrhage, left Code(s): N28.89 - OTHER SPECIFIED DISORDERS OF KIDNEY AND URETER Status: Acute Comment: s/p embolization (3) Acute on chronic kidney failure Code(s): N17.9 - ACUTE KIDNEY FAILURE, UNSPECIFIED; N18.9 - CHRONIC KIDNEY DISEASE, UNSPECIFIED Status: Acute Qualifiers: Acute renal failure type: unspecified Chronic kidney disease stage: stage 3 (moderate) Qualified Code(s): N17.9 - Acute kidney failure, unspecified; N18.3 - Chronic kidney disease, stage 3 (moderate); N18.3 - Chronic kidney disease, stage 3 (moderate) Comment: Requiring Hemodialysis. HD to be held over the next couple of days to determine his baseline renal function and determine if HD will be required going forward. (4) Cardiomyopathy Code(s): I42.9 - CARDIOMYOPATHY, UNSPECIFIED Status: Chronic (5) Chronic deep vein thrombosis (DVT) Code(s): I82.509 - CHRONIC EMBOLISM AND THOMBOS UNSP DEEP VN UNSP LOW EXTRM Status: Chronic Qualifiers: DVT location: lower extremity Laterality: bilateral (6) Anemia due to acute blood loss Code(s): D62 - ACUTE POSTHEMORRHAGIC ANEMIA Status: Acute Comment: s/p pRBC transfusions (7) Seizure disorder Code(s): G40.909 - EPILEPSY, UNSP, NOT INTRACTABLE, WITHOUT STATUS EPILEPTICUS Status: Chronic Comment: continue Keppra (8) Coagulation defect Status: Acute Comment: Antiphospholipid ab. Went off of meds two weeks prior to admission. Hemorrhaged into left kidney. - Plan * .
[2018-02-02] MEDS: Acetaminophen 650 MG/20.3 ML UDCUP PO SCH ×2 (00:46→05:33)
[2018-02-02] MEDS ORDERED: Morphine 2 MG/ML SYRINGE SLOW IVP SCH (03:45)
[2018-02-02 05:19] LABS: Mean Corpuscular Hemoglobin 28.5 pg (27.0-31.0); Mean Corpuscular Volume 89.2 fL (78.0-98.0); Mean Platelet Volume 9.4 fL (7.4-10.4); Platelet Count 60 thou/uL (130-400); RBC Distribution Width 14.1 % (11.5-14.5); Red Blood Cell (RBC) Count 3.52 mill/uL (4.70-6.10); White Blood Cell (WBC) Count 14.5 thou/uL (4.8-10.8)
[2018-02-02 05:32] LABS: Anion Gap 16 mmol/L (10-20); BUN (Urea Nitrogen) 75 mg/dL (8.9-20.6); Calc. Creatinine Clearance 72 mL/min (70-130); Calcium 9.2 mg/dL (7.8-10.44); Carbon Dioxide 25 mmol/L (22-29); Chloride 103 mmol/L (98-107); Estimated GFR-MDRD 28; Glucose 137 mg/dL (70-105); Potassium 4.1 mmol/L (3.5-5.1); Sodium 140 mmol/L (136-145)
[2018-02-02 05:35] LABS: Band 4 % (5-11); Lymphocytes 5 % (21-51); MDiff Complete? YES; Metamyelocyte 1 % (0-0); Monocytes 2 % (0-10); Myelocyte 1 % (0-0); Neutrophil 87 % (42-75); PLT Morphology Comment Appears Decreased
[2018-02-02] MEDS: niCARdipine HCl 50 MG in Sodium Chloride 0.9% 250 ML 230 ML IVPB SCH ×3 (05:51→15:00)
[2018-02-02] MEDS ORDERED: Bupivacaine HCl 0.5%/Epinephrine 1:200,000/PF 30 ml Vial ONE ×2 (08:08→11:39)
[2018-02-02] MEDS: Timolol 0.5% Ophth Soln 5 ml Bottle EA EYE SCH ×2 (08:56→23:36)
[2018-02-02] MEDS: Lidocaine 5% Patch TD SCH (08:56)
[2018-02-02] MEDS: Pantoprazole 40 MG VIAL IVP SCH (09:08)
[2018-02-02] MEDS ORDERED: PROPOFOL 200 MG/20 ML VIAL ONE (09:18)
[2018-02-02] MEDS ORDERED: Heparin 10,000 UNITS/ 10 ML VIAL ONE (09:18)
--- NOTE | 2018-02-02 09:20 | RAD ---
PORTABLE AP CHEST X-RAY: 02/02/2018 HISTORY: On ventilator. COMPARISON: 02/01/2018 FINDINGS: Tunneled right internal jugular vein hemodialysis catheter remains in place. There is a catheter ove rlying the left hemithorax and, again, the exact positioning of this catheter is uncertain, based on this examination. This has also been previously described and reported on prior studies. The cardiac silhouette remains enlarged. Pleural and parenchymal changes are again seen at the right lung base, and are overall similar, given differences in technique. Mild patchy density is seen in the region of the lingula. The endotracheal tube has been removed. IMPRESSION: 1. Left-sided vascular catheter again noted in place. The exact positioning is difficult to determi ne based on this examination. This is not in a typical location for normal vascular structure, altho ugh this could potentially be within a mammary vein. Clinical correlation is recommended. 2. Interval removal of endotracheal tube. 3. Pleural and parenchymal changes, right lung base, which could be related to right pleural effusio n and atelectasis, although pneumonia is a possibility. 4. Atelectasis versus developing pneumonia in the region of the lingula. POS: [facility]
[2018-02-02] MEDS ORDERED: Acetaminophen 325 MG TAB PO PRN (09:35)
[2018-02-02] MEDS ORDERED: Losartan 25 MG TAB PO SCH (09:45)
--- NOTE | 2018-02-02 10:21 | PRG ---
DATE OF SERVICE: 02/02/2017 SUBJECTIVE: Mr. Boo is a 47-year-old white male who is being followed by the Renal Service for his acute kidney injury on top of his chronic renal failure. The patient had worsening dysfunction and due to the progressive azotemia, he was initiated on dialysis. The patient was initially admitted for abdominal pain and was found to have a subcapsular renal hemor rhage. The bleeding was persistent. For that reason, he underwent embolization of the left kidney. Doing well. He is now extubated. He continues to be on maintenance hemodialysis 3 times a week. H e is scheduled for an AV fistula. He has a labile hypertension. Currently on Cardene drip. My plan is to start him on losartan 50 mg tab q.a.m. PHYSICAL EXAMINATION: VITAL SIGNS: Blood pressure 163/90, heart rate 93, respiratory 22, pulse ox 97%. GENERAL: Awake, alert, supine, comfortable, not in overt distress. SKIN: Adequate turgor. HEENT: He has pinkish conjunctivae, anicteric sclerae. NECK: No neck mass, no carotid bruits, no JVD. CHEST: No deformities. LUNGS: Clear breath sounds, no wheezing, no crackles. HEART: Normal sinus rhythm. No murmur, no gallops, no rubs. ABDOMEN: Globular, soft, nontender, no masses. EXTREMITIES: No edema, no deformities. MEDICATIONS: 02/02/2018 - Reviewed. LABORATORY: 02/02/2018 - White count 14.5, hemoglobin 10. Sodium 140, potassium 4.1, chloride 103, carbon dioxide 25, BUN 75, creatinine 2.48, calcium 9.2. ASSESSMENT AND PLAN: 1. Acute kidney injury/chronic renal failure - most likely a superimposed acute tubular necrosis. C reatinine remains unimproved. He is currently on 3 times a week hemodialysis. Again, fluid removal as tolerated. We are avoiding heparin use due to the recent renal bleed. Overall, I agree with curr ent management. 2. Labile hypertension. We will start losartan 50 mg tab q.a.m. Continue Cardene drip. 3. Status post left renal bleed - stable, status post embolization of the left kidney. Overall, prognosis remains guarded.
[2018-02-02] MEDS: OXcarbazepine 300 MG TAB PO SCH ×2 (10:49→20:22)
[2018-02-02] MEDS ORDERED: Heparin 5,000 UNITS/ML VIAL ONE (11:39)
[2018-02-02] MEDS ORDERED: Lidocaine 2% PF 5 ML VIAL ONE (11:39)
[2018-02-02] MEDS ORDERED: Ioversol 68 % 50 ML VIAL ONE (11:39)
[2018-02-02] MEDS ORDERED: Protamine Sulfate 50 MG/5 ML VIAL ONE (11:39)
[2018-02-02] MEDS ORDERED: Fentanyl 100 MCG/2 ML VIAL ONE (11:41)
[2018-02-02] MEDS ORDERED: Triamcinolone 40 MG/ML VIAL ONE (12:35)
[2018-02-02] MEDS ORDERED: Ketamine 50 MG/ML (10ML VIAL) ONE (12:37)
--- NOTE | 2018-02-02 13:08 | OP ---
DATE OF PROCEDURE: 02/02/2018 PREOPERATIVE DIAGNOSES: End-stage renal disease, infarcted left kidney secondary to embolization and for bleeding. POSTOPERATIVE DIAGNOSES: End-stage renal disease infarcted left kidney secondary to embolization and for bleeding. Iatrogenic thrombosis left antecubital vein (ultrasound vein mapping suggests adequat e vein, but basilic and antecubital vein thrombosed and inadequate and not available for fistula). PROCEDURE: Planned right arm primary fistula, possible prosthetic graft in 48 hours. SURGEON: Dr. Dany Wagner ANESTHESIA: Regional, TIVA. Local 0.5% Marcaine with epinephrine 30 mL mixed with 2% Xylocaine, 10 mL, 10 mL mixture used. PROCEDURE IN DETAIL: The patient was taken to the operating room where under regional anesthesia, le ft upper extremity was prepared with ChloraPrep, draped in routine fashion. Local anesthetic infiltr ated into skin and subcutaneous tissue. Ultrasound vein mapping suggested adequate veins. Proximal forearm incision made longitudinally below the antecubital fossa, carried down the skin and subcutane ous tissue and the antecubital vein, perforating branch identified were inadequate, thrombosed, with extensive hematoma around them, indicative of blood draws and IV access attempts. A search for the b asilic vein revealed it was not present. Decision was made to plan right arm fistula, possible prost hetic graft in 48 hours. The wound closed by approximately subcutaneous tissues with 3-0 Monocryl, s kin with subdermal 4-0 Monocryl and DermaGlue applied.
[2018-02-02] MEDS ORDERED: PROPOFOL 20 ML ONE (13:45)
--- NOTE | 2018-02-02 16:57 | PRG ---
DATE OF SERVICE: 02/02/2018 SUBJECTIVE: Mr. Boo has done well overnight. He is minimally verbal. He went down for upper extremity vascular access, but they were unsuccessful finding an access point in his left upper extre mity. He did have a regional block for this. OBJECTIVE: VITAL SIGNS: Currently blood pressure 162/89, heart rate is 80, respiratory rate is 17. LUNGS: Clear. HEART: Regular rhythm. ABDOMEN: Soft. LABORATORY DATA: White count 14.5, hemoglobin 10.0, platelets 60,000. Sodium 140, potassium 4.1, ch loride 103, bicarb 25, BUN 75, creatinine 2.48. IMPRESSION: 1. Status post subcapsular renal hemorrhage. 2. Status post embolization of the left kidney. 3. Status post intubation for his internal bleeding. He is doing well post-extubation. 4. Mild encephalopathy over his baseline cerebral dysfunction. 5. End-stage renal disease, likely with difficult access. He has a tunneled catheter in place. PLAN: Continue current care in the Critical Care Unit.
[2018-02-02] MEDS ORDERED: Heparin 1,000 UNITS/ML VIAL ONE (17:54)
--- NOTE | 2018-02-02 23:11 | PDOC.PN ---
- Subjective Encounter Start Date: 02/02/18 Encounter Start Time: 13:55 Denies complaints other than fatigue and weakness. - Objective Vital Signs & Weight: Vital Signs (12 hours) Temp Pulse Pulse BP BP Pulse Ox Pulse Ox 02/02/18 20:00 98.6 F 100 02/02/18 16:21 71 75 175/81 H 174/90 H 100 02/02/18 16:00 97.8 F 02/02/18 14:49 99 02/02/18 12:00 97.4 F L Pulse Ox 02/02/18 20:00 02/02/18 16:21 100 02/02/18 16:00 02/02/18 14:49 02/02/18 12:00 Weight Admit Weight 285 lb Weight 306 lb Most Recent Monitor Data Heart Rate from ECG 67 NIBP 143/82 NIBP BP-Mean 102 Respiration from ECG 16 SpO2 100 I&O: 02/01/18 02/02/18 02/03/18 06:59 06:59 06:59 Intake Total 3011.5 928 946 Output Total 1590 1630 1055 Balance 1421.5 -702 -109 Result Diagrams: 02/02/18 04:36 02/02/18 04:36 Phys Exam - Physical Examination Constitutional: NAD Awakens, but still somnolent. Right lateral neck hematoma associated with tunneled catheter No change in size from yesterday. Respiratory: no wheezing, no rales, no rhonchi, clear to auscultation bilateral Cardiovascular: RRR Gastrointestinal: soft, non-tender, no distention, positive bowel sounds Musculoskeletal: no edema Neurological: non-focal Dx/Plan (1) Acute respiratory failure Code(s): J96.00 - ACUTE RESPIRATORY FAILURE, UNSP W HYPOXIA OR HYPERCAPNIA Status: Resolved Comment: Extubated. Pulmonary/CC following. (2) Renal hemorrhage, left Code(s): N28.89 - OTHER SPECIFIED DISORDERS OF KIDNEY AND URETER Status: Acute Comment: s/p embolization (3) Acute on chronic kidney failure Code(s): N17.9 - ACUTE KIDNEY FAILURE, UNSPECIFIED; N18.9 - CHRONIC KIDNEY DISEASE, UNSPECIFIED Status: Acute Qualifiers: Acute renal failure type: unspecified Chronic kidney disease stage: stage 3 (moderate) Qualified Code(s): N17.9 - Acute kidney failure, unspecified; N18.3 - Chronic kidney disease, stage 3 (moderate); N18.3 - Chronic kidney disease, stage 3 (moderate) Comment: Requiring Hemodialysis. Tunneled right IJ catheter. Attempt at creating LUE access today unsuccessful due to poor health of veins. Will attempt Right side on Wednesday. (4) Cardiomyopathy Code(s): I42.9 - CARDIOMYOPATHY, UNSPECIFIED Status: Chronic (5) Chronic deep vein thrombosis (DVT) Code(s): I82.509 - CHRONIC EMBOLISM AND THOMBOS UNSP DEEP VN UNSP LOW EXTRM Status: Chronic Qualifiers: DVT location: lower extremity Laterality: bilateral Comment: Hx of IVC filter with evidence of distal venous thrombosis. (6) Anemia due to acute blood loss Code(s): D62 - ACUTE POSTHEMORRHAGIC ANEMIA Status: Acute Comment: s/p pRBC transfusions (7) Seizure disorder Code(s): G40.909 - EPILEPSY, UNSP, NOT INTRACTABLE, WITHOUT STATUS EPILEPTICUS Status: Chronic Comment: continue Keppra (8) Coagulation defect Status: Acute Comment: Antiphospholipid ab. Went off of meds two weeks prior to admission. Hemorrhaged into left kidney. - Plan * .
[2018-02-03] MEDS: niCARdipine HCl 50 MG in Sodium Chloride 0.9% 250 ML 230 ML IVPB SCH ×2 (03:13→13:52)
[2018-02-03] MEDS: traMADol HCl 50 MG TAB PO PRN ×2 (03:14→20:12)
[2018-02-03 04:41] LABS: Hemoglobin 10.9 g/dL (14.0-18.0); Mean Corpuscular HGB CONC 32.5 g/dL (32.0-36.0); Mean Corpuscular Hemoglobin 29.5 pg (27.0-31.0); Mean Corpuscular Volume 90.9 fL (78.0-98.0); Mean Platelet Volume 9.8 fL (7.4-10.4); Platelet Count 67 thou/uL (130-400); RBC Distribution Width 14.9 % (11.5-14.5); Red Blood Cell (RBC) Count 3.68 mill/uL (4.70-6.10); White Blood Cell (WBC) Count 16.6 thou/uL (4.8-10.8)
[2018-02-03 04:51] LABS: Anion Gap 18 mmol/L (10-20); BUN (Urea Nitrogen) 100 mg/dL (8.9-20.6); Calc. Creatinine Clearance 64 mL/min (70-130); Carbon Dioxide 23 mmol/L (22-29); Chloride 108 mmol/L (98-107); Estimated GFR-MDRD 24; Glucose 161 mg/dL (70-105); Potassium 4.5 mmol/L (3.5-5.1); Sodium 144 mmol/L (136-145)
[2018-02-03 05:16] LABS: Band 7 % (5-11); Lymphocytes 3 % (21-51); MDiff Complete? YES; Monocytes 5 % (0-10); Neutrophil 85 % (42-75); PLT Morphology Comment Appears Decreased
[2018-02-03] MEDS: Pantoprazole 40 MG VIAL IVP SCH (09:06)
[2018-02-03] MEDS: Losartan 25 MG TAB PO SCH (09:07)
[2018-02-03] MEDS: OXcarbazepine 300 MG TAB PO SCH ×2 (09:07→20:12)
[2018-02-03] MEDS: Timolol 0.5% Ophth Soln 5 ml Bottle EA EYE SCH ×2 (09:09→23:33)
--- NOTE | 2018-02-03 09:40 | PRG ---
DATE OF SERVICE: 02/03/2018 SUBJECTIVE: Mr. Boo is a 47-year-old white male, seen by Renal Service for his acute kidney in [facility] on top of his chronic renal failure. Due to his progressive azotemia, he has been initiated on dialysis. He continues to have labile hypertension. Yesterday, we have initiated losartan 50 mg tab once a day with this patient. He is also currently on beta john. He underwent to have a placeme nt of this AV fistula, but this is currently nonfunctional. Surgery is planning to do another access surgery on the right upper extremity this coming Wednesday, no other acute events noted. OBJECTIVE: VITAL SIGNS: Blood pressure is 175/103, heart rate 82, respiratory rate 30, pulse ox 97%. GENERAL: Noted to be awake, lethargic, not in overt distress. SKIN: Adequate turgor. HEENT: He has pinkish conjunctivae, anicteric sclerae. NECK: No neck mass, no carotid bruits, no JVD. CHEST: No deformities. LUNGS: Decreased breath sounds. No wheezing, no crackles. HEART: Normal sinus rhythm. No murmur, no gallops or rubs. ABDOMEN: Globular, soft, nontender, no masses. EXTREMITIES: No edema, no deformities. MEDICATIONS: Of 02/03/2018 was reviewed. LABORATORY DATA: Of 02/03/2018: White count 16.6, hemoglobin 10.9. Sodium 144, potassium 4.5, chlo ride 100, carbon dioxide 23, BUN 100, creatinine 2.82, calcium is 9. ASSESSMENT AND PLAN: 1. Chronic renal disease/end-stage renal disease -- no evidence of renal recovery. Continue current dialytic intervention. The patient is scheduled for Wednesday, , and Wednesday dialysis. I carmona ve scheduled him for a 4 hour hemodialysis today. Again, fluid removal as tolerated. 2. Status post left perinephric bleed -- stable, status post embolization of the left kidney. Doing well, no evidence of rebleeding. 3. Labile hypertension, on metoprolol and losartan. Consider increasing losartan to 100 mg once a d ay from 50 if blood pressure is still noted to be labile by tomorrow. 4. Anemia, stable.
--- NOTE | 2018-02-03 10:54 | PDOC.PN ---
- Subjective Encounter Start Date: 02/03/18 Encounter Start Time: 10:51 Subjective: nsg notes rev, susan ovn, awake, conversant, very poor recall of recent -: events, oriented x1, feels uncomfortable but no focal complaints - Objective Vital Signs & Weight: Vital Signs (12 hours) Temp Pulse BP Pulse Ox 02/03/18 09:09 88 175/103 H 02/03/18 08:00 97 02/03/18 07:00 97.8 F 02/03/18 06:00 98.8 F 02/03/18 04:00 98.3 F 02/03/18 03:33 99 02/03/18 02:00 98.2 F 02/02/18 23:36 88 159/90 H 02/02/18 23:00 98.9 F Weight Admit Weight 285 lb Weight 303 lb 5.697 oz Most Recent Monitor Data Heart Rate from ECG 101 NIBP 171/103 NIBP BP-Mean 125 Respiration from ECG 26 SpO2 96 I&O: 02/02/18 02/03/18 02/04/18 06:59 06:59 06:59 Intake Total 928 1569 497 Output Total 1630 1690 425 Balance -702 -121 72 Result Diagrams: 02/03/18 03:10 02/03/18 03:10 Dx/Plan - Plan Constitutional: NAD, lying in hospital bed Right lateral neck hematoma associated with tunneled catheter No change in size from yesterday per reports difficulty raising hands off the bed due to weakness Respiratory: no wheezing, no rales, no rhonchi, clear to auscultation bilateral , limited anterior examination Cardiovascular: RRR, s1, s2, no m/r/g, pulses 1+ b/l UE Gastrointestinal: soft, non-tender, no distention, positive bowel sounds Musculoskeletal: no edema Neurological: non-focal Dx/Plan (1) Acute respiratory failure Code(s): J96.00 - ACUTE RESPIRATORY FAILURE, UNSP W HYPOXIA OR HYPERCAPNIA Status: Resolved Comment: Extubated. Pulmonary/CC following. (2) Renal hemorrhage, left Code(s): N28.89 - OTHER SPECIFIED DISORDERS OF KIDNEY AND URETER Status: Acute Comment: s/p embolization (3) Acute on chronic kidney failure Code(s): N17.9 - ACUTE KIDNEY FAILURE, UNSPECIFIED; N18.9 - CHRONIC KIDNEY DISEASE, UNSPECIFIED Status: Acute Qualifiers: Acute renal failure type: unspecified Chronic kidney disease stage: stage 3 (moderate) Qualified Code(s): N17.9 - Acute kidney failure, unspecified; N18.3 - Chronic kidney disease, stage 3 (moderate); N18.3 - Chronic kidney disease, stage 3 (moderate) Comment: Requiring Hemodialysis. Tunneled right IJ catheter. Attempt at creating LUE access today unsuccessful due to poor health of veins. Will attempt Right side on Wednesday. (4) Cardiomyopathy Code(s): I42.9 - CARDIOMYOPATHY, UNSPECIFIED Status: Chronic (5) Chronic deep vein thrombosis (DVT) Code(s): I82.509 - CHRONIC EMBOLISM AND THOMBOS UNSP DEEP VN UNSP LOW EXTRM Status: Chronic Qualifiers: DVT location: lower extremity Laterality: bilateral Comment: Hx of IVC filter with evidence of distal venous thrombosis. (6) Anemia due to acute blood loss Code(s): D62 - ACUTE POSTHEMORRHAGIC ANEMIA Status: Acute Comment: s/p pRBC transfusions currently hemodynamically stable - has some intermittent hypertension, currently on cardene gtt (7) Seizure disorder Code(s): G40.909 - EPILEPSY, UNSP, NOT INTRACTABLE, WITHOUT STATUS EPILEPTICUS Status: Chronic Comment: continue Keppra - off home tripleptal (8) Coagulation defect Status: Acute Comment: Antiphospholipid ab. Went off of meds two weeks prior to admission. Hemorrhaged into left kidney. Will c/s hematology for recs regarding further management diet: as malika, encourage activity: as malika dvt ppx d/w bedside nsg Review of Systems - Medications/Allergies Allergies/Adverse Reactions: Allergies Allergy/AdvReac Type Severity Reaction Status Date / Time phenytoin sodium Allergy Severe Emesis Verified 01/24/18 08:30 [From Dilantin] phenytoin sodium extended Allergy Severe Emesis Verified 01/24/18 08:30 [From Dilantin] midazolam HCl [From Versed] Allergy Intermediate swelling Verified 01/24/18 08: 30 Medications: Current Medications Acetaminophen (Tylenol) 650 mg PO Q6H PRN PRN Reason: Headache/Fever or Pain Al Hydroxide/Mg Hydroxide (Maalox) 30 ml PO Q4H PRN PRN Reason: Heartburn or Indigestion Last Admin: 01/25/18 21:40 Dose: 30 ml Alteplase, Recombinant (Cathflo) 2 mg CATH ASDIR [facility] Sodium Chloride (Normal Saline 0.9%) 1,000 mls @ 0 mls/hr IV .Q0M [facility] Last Admin: 01/27/18 10:02 Dose: 1,000 mls Fentanyl Citrate 2,000 mcg/ (Sodium Chloride) 100 mls @ 0 mls/hr IV INF NEPTALI; Protocol Stop: 02/25/18 16:26 Last Admin: 01/31/18 16:58 Dose: 100 mls Fentanyl Citrate (Fentanyl Bolus) 250 mls @ 0 mls/hr IVPB PRN PRN PRN Reason: Breakthrough pain/agitation Stop: 02/25/18 16:26 Levetiracetam 500 mg/ Device 100 mls @ 200 mls/hr IVPB BID [facility] Last Admin: 02/03/18 09:06 Dose: 100 mls Norepinephrine Bitartrate (Levophed) 250 mls @ 0 mls/hr IVPB INF PRN; Protocol PRN Reason: KEEP MAP >65 Nicardipine HCl 50 mg/ Sodium (Chloride) 250 mls @ 0 mls/hr IVPB INF NEPTALI; Protocol Last Admin: 02/03/18 03:13 Dose: 250 mls Dexmedetomidine HCl 400 mcg/ (Sodium Chloride) 100 mls @ 0 mls/hr IVPB INF [facility] ; Protocol Last Admin: 02/01/18 10:01 Dose: 100 mls Lorazepam (Ativan) 2 mg SLOW IVP Q1H PRN PRN Reason: Breakthrough agitation Stop: 02/25/18 16:26 Losartan Potassium (Cozaar) 50 mg PO DAILY [facility] Last Admin: 02/03/18 09:07 Dose: 50 mg Methylprednisolone Sodium Succinate (Solu-Medrol) 40 mg IVP Q8HR [facility] Last Admin: 02/03/18 06:28 Dose: 40 mg Metoprolol Succinate (Toprol Xl) 50 mg PO DAILY [facility] Last Admin: 02/03/18 09:07 Dose: 50 mg Mineral Oil/White Petrolatum (Lacri-Lube Ointment) 0 gm EA EYE PRN PRN PRN Reason: Dry Eyes Morphine Sulfate (Morphine) 2 mg SLOW IVP Q1H PRN PRN Reason: BREAKTHROUGH PAIN/AGITATION Stop: 02/25/18 16:26 Last Admin: 01/27/18 20:44 Dose: 2 mg Oxcarbazepine (Trileptal) 600 mg PO BID [facility] Last Admin: 02/03/18 09:07 Dose: 600 mg Pantoprazole Sodium (Protonix) 40 mg IVP DAILY [facility] Last Admin: 02/03/18 09:06 Dose: 40 mg Propofol (Diprivan) 1,000 mg IV INF PRN; Protocol PRN Reason: TO ACHIEVE GOAL RASS Stop: 02/25/18 16:26 Last Admin: 01/31/18 21:30 Dose: 1,000 mg Propofol (Diprivan Bolus) 20 mg IV Q5MIN PRN PRN Reason: BREAKTHROUGH AGITATION Stop: 02/25/18 16:26 Sodium Chloride (Flush - Normal Saline) 10 ml IVF Q12HR [facility] Last Admin: 02/03/18 09:09 Dose: 10 ml Sodium Chloride (Flush - Normal Saline) 10 ml IVF PRN PRN PRN Reason: Saline Flush Timolol Maleate (Timoptic 0.5% [facility]) 1 drop EA EYE BID [facility] Last Admin: 02/03/18 09:09 Dose: 1 drop Tramadol HCl (Ultram) 50 mg PO Q6H PRN PRN Reason: Pain Last Admin: 02/03/18 03:14 Dose: 50 mg
--- NOTE | 2018-02-03 16:36 | PRG ---
DATE OF SERVICE: 02/03/2018 SUBJECTIVE: Mr. Boo is in no distress. OBJECTIVE: VITAL SIGNS: Heart rates in the 90s. Blood pressures have been intermittently elevated as high as 1 84/119. This afternoon is 129/88 earlier, respiratory rate is 14. LUNGS: Clear. HEART: Regular rhythm. ABDOMEN: Soft. LABORATORY DATA: White count 16.6, hemoglobin 10.9, platelets 57,000. Sodium 144, potassium 4.5, ch loride 108, bicarbonate 23, BUN 100, creatinine 2.82. IMPRESSION: 1. Respiratory failure, status post intubation for a subcapsular hemorrhage, on heparin. 2. History of inferior vena cava filter. 3. Renal failure on top of chronic kidney. Dialysis access procedure is planned for tomorrow gladys cheung. I will follow with the other physician's caring for him.
[2018-02-03] MEDS ORDERED: Digoxin 0.5 MG/2 ML AMP ONE (16:43)
[2018-02-03] MEDS ORDERED: Digoxin 0.5 MG/2 ML AMP SLOW IVP SCH (17:00)
[2018-02-03] MEDS: Amiodarone HCl 450 MG, Admixture Fee 1 EACH in Dextrose 5% in Water 250 ML IVPB SCH (17:25)
[2018-02-03] MEDS ORDERED: Amiodarone HCl 150 MG, Admixture Fee 1 EACH in Dextrose 5% in Water 100 ML IVPB SCH (17:30)
[2018-02-03 17:47] LABS: Anion Gap 13 mmol/L (10-20); BUN (Urea Nitrogen) 53 mg/dL (8.9-20.6); Calc. Creatinine Clearance 98 mL/min (70-130); Calcium 9.8 mg/dL (7.8-10.44); Carbon Dioxide 29 mmol/L (22-29); Chloride 102 mmol/L (98-107); Estimated GFR-MDRD 40; Glucose 147 mg/dL (70-105); Potassium 4.3 mmol/L (3.5-5.1); Sodium 140 mmol/L (136-145)
--- NOTE | 2018-02-03 17:56 | CON ---
DATE OF CONSULTATION: 02/13/2018 CARDIOLOGY CONSULTATION REASON FOR CONSULTATION: Atrial fibrillation, rapid ventricular response. PRIMARY PATIENT RELATIONS REPRESENTATIVE: Angie Jefferson M.D. HISTORY OF PRESENT ILLNESS: Mr. Boo is a pleasant 47-year-old white gentleman who came to the hospital for abdominal discomfort and chest pain. He has a history of antiphospholipid syndrome and seizure disorder. He stopped all his medications about 3 weeks before coming in. He was trying home opathic medications, which is natural medicines. He came in and initially was evaluated for possible gallbladder issues, but because he has antiphospholipid syndrome, he was started on a heparin drip, eventually became anemic, hypotensive and was found to have a large left renal hemorrhage with retrop eritoneal blood. Eventually was resuscitated and had to be intubated. He has been extubated since a nd his renal function deteriorated to the point where he is not recovering and is requiring renal rep lacement therapy. Currently, Dr. De La Rosa is dialyzing him Tuesdays, and Saturdays. He had michelle lysis earlier today. He is already extubated. He developed atrial fibrillation with rapid ventricul ar response, heart rate in the 150s-160s, so Cardiology has been consulted for this. He has a runshenan g diagnosed with a cardiomyopathy, EF has been as low as 30%-35%. On echo during this admission, he was at 40%-45%. PAST MEDICAL HISTORY: 1. Antiphospholipid syndrome. 2. History of DVT, PE. 3. IVC filter in place. 4. Medication noncompliance. 5. Chronic renal insufficiency. 6. Seizure disorder status post lobectomy. 7. Hypertension. 8. Systolic dysfunction. OUTPATIENT MEDICATIONS: Reviewed. He should be on Lasix, warfarin, colchicine, metoprolol succinate , oxcarbazepine and timolol eyedrops. Has not taken any of this for 3 weeks before admission. ALLERGIES: PHENYTOIN causes emesis and MIDAZOLAM causes swelling. REVIEW OF SYSTEMS: Unobtainable as the patient is minimally verbal. FAMILY HISTORY: Noncontributory. SOCIAL HISTORY: No alcohol, tobacco or drugs. PHYSICAL EXAMINATION: VITAL SIGNS: Temperature 97.7, pulse 106, respiratory rate 22, satting 98% on 4 liters nasal cannula , blood pressure went down to 80/68 after a bolus of IV diltiazem. GENERAL: Awake, alert. HEENT: Normocephalic. LUNGS: Clear. CARDIOVASCULAR: Tachycardic in the 150s, irregularly irregular. No murmurs. ABDOMEN: Soft. EXTREMITIES: 3+ edema. SKIN: Warm and dry. LABORATORY WORK: Reviewed. White count of 16, hemoglobin 10.9, hematocrit of 33, platelet count of 67,000. Coags were reviewed. ABG was reviewed. Chemistries were reviewed. His last potassium befo re dialysis today was 4.5. UA on the day of admission was reviewed. Toxicology and serology have be en reviewed. ASSESSMENT: 1. Atrial fibrillation with rapid ventricular response, new diagnosis. 2. History of dilated cardiomyopathy with an ejection fraction about 40%-45% on echo during this adm ission. 3. Medication noncompliance. 4. Antiphospholipid syndrome. 5. History of deep vein thrombosis and pulmonary embolism with IVC filter in place. 6. Subcapsular left renal hematoma. 7. End-stage renal disease. PLAN: 1. He became hypotensive with one dose of diltiazem. He has been tolerating the drip. We were at 1 5 already and his heart rate was not really coming down. We will plan on switching this to an amioda caridad drip. We will give him a bolus and then a drip per protocol. We will also increase his metopro lol tartrate to the next available dose. 2. I spoke with Dr. Olson about full anticoagulation and because of his recent bleeding issues, he i s not a candidate for this at the time. Thank you for letting us to participate in the care of your patient. Dr. Jefferson, his primary cardiolog ist will follow up in the morning.
[2018-02-03] MEDS: Lacri-Lube Opth Oint 3.5 GM TUBE EA EYE PRN (23:34)
[2018-02-04] MEDS: Morphine 2 MG/ML SYRINGE SLOW IVP PRN (01:29)
[2018-02-04] MEDS: Amiodarone HCl 450 MG, Admixture Fee 1 EACH in Dextrose 5% in Water 250 ML IVPB SCH ×2 (02:29→16:24)
[2018-02-04 05:59] LABS: #Eosinphils 0.1 thou/uL (0.0-0.7); #Lymphocytes 0.8 thou/uL (1.20-3.40); #Monocytes 1.1 thou/uL (0.11-0.59); #Neutrophils 13.4 thou/uL (1.40-6.50); %Basophils 0.2 % (0.0-1.0); %Eosinophils 0.6 % (0.0-10.0); %Lymphocytes 5.3 % (21.0-51.0); %Neutrophils 86.9 % (42.0-75.0); Hemoglobin 11.6 g/dL (14.0-18.0); Mean Corpuscular HGB CONC 31.7 g/dL (32.0-36.0); Mean Corpuscular Hemoglobin 28.9 pg (27.0-31.0); Mean Corpuscular Volume 91.2 fL (78.0-98.0); Mean Platelet Volume 10.3 fL (7.4-10.4); Platelet Count 52 thou/uL (130-400); RBC Distribution Width 14.8 % (11.5-14.5); Red Blood Cell (RBC) Count 4.01 mill/uL (4.70-6.10); White Blood Cell (WBC) Count 15.4 thou/uL (4.8-10.8)
[2018-02-04 06:10] LABS: Anion Gap 16 mmol/L (10-20); BUN (Urea Nitrogen) 66 mg/dL (8.9-20.6); Calc. Creatinine Clearance 83 mL/min (70-130); Calcium 9.1 mg/dL (7.8-10.44); Carbon Dioxide 23 mmol/L (22-29); Chloride 105 mmol/L (98-107); Estimated GFR-MDRD 34; Glucose 122 mg/dL (70-105); Potassium 3.8 mmol/L (3.5-5.1); Sodium 140 mmol/L (136-145)
[2018-02-04] MEDS ORDERED: Heparin 5,000 UNITS/ML VIAL ONE (06:48)
[2018-02-04] MEDS ORDERED: Bupivacaine HCl 0.5%/Epinephrine 1:200,000/PF 30 ml Vial ONE (06:49)
[2018-02-04] MEDS ORDERED: Lidocaine 2% PF 5 ML VIAL ONE (06:51)
[2018-02-04] MEDS ORDERED: Protamine Sulfate 50 MG/5 ML VIAL ONE (06:53)
[2018-02-04] MEDS ORDERED: Ioversol 68 % 50 ML VIAL ONE (06:54)
--- NOTE | 2018-02-04 08:20 | RAD ---
CHEST 1 VIEW: HISTORY: End stage renal disease. COMPARISON: Radiograph 02/02/2018. FINDINGS: Left-sided IJ catheter projects over the expected location of the descending aorta. There is bibasilar airspace opacity. Small right effusion. IMPRESSION: Mild interval improvement of bibasilar airspace opacities. POS: ANGELH
[2018-02-04] MEDS: OXcarbazepine 300 MG TAB PO SCH ×2 (08:41→22:49)
[2018-02-04] MEDS: Losartan 25 MG TAB PO SCH (08:44)
[2018-02-04] MEDS: Pantoprazole 40 MG VIAL IVP SCH (08:45)
[2018-02-04] MEDS: Timolol 0.5% Ophth Soln 5 ml Bottle EA EYE SCH ×2 (08:46→22:52)
--- NOTE | 2018-02-04 09:34 | PRG ---
DATE OF SERVICE: 02/04/2018 SUBJECTIVE: Mr. Boo is a 47-year-old white male. He is being followed by [facility] for hi s maintenance hemodialysis. He developed acute kidney injury on top of his chronic renal failure. Caroline mullen was admitted for abdominal pain and had a left renal perinephric hematoma. He underwent embolizati on. He also went into acute respiratory failure and currently is now extubated. The plan is to even tually put a new AV fistula with him. He denies new complaints. PHYSICAL EXAMINATION: VITAL SIGNS: Blood pressure is 146/104, heart rate 128, respiratory rate is 17, pulse ox 99%. GENERAL: Awake, lethargic, not in overt distress. SKIN: Adequate turgor. HEENT: Pinkish conjunctivae, anicteric sclerae. NECK: No neck mass, no carotid bruits, no JVD. CHEST: No deformities. LUNGS: Clear breath sounds, no wheezing, no crackles. HEART: Normal sinus rhythm. No murmur, no gallops, no rubs. ABDOMEN: Globular, soft, nontender. No masses. EXTREMITIES: No edema, no deformities. MEDICATIONS: 02/04/2018 - Reviewed. LABORATORY DATA: 02/04/2018 - White count 15.4, hemoglobin 11.6, sodium 140, potassium 3.8, chloride 105, carbon dioxide 23, BUN 66, creatinine 2.09, glucose 122, calcium 9.1. ASSESSMENT AND PLAN: 1. Acute kidney injury/chronic renal failure, stable. Continue 3 times a week with hemodialysis. O bserve for possible renal recovery where we can take him off dialysis. 2. Tachycardia, hypertension, still not optimally controlled blood pressure. He is tachycardic. My plan, he is to increase his metoprolol XL to 100 mg tab p.o. b.i.d. 3. Status post renal bleed - left - much better status post embolization. H&H is stable.
--- NOTE | 2018-02-04 09:44 | PRG ---
DATE OF SERVICE: 02/04/2018 SUBJECTIVE: Mr. Boo developed atrial fibrillation. His rate is a little better today, but he is still in the 120s. PHYSICAL EXAMINATION: VITAL SIGNS: Blood pressure 146/104, respiratory rates in the teens. GENERAL: He slowly answers questions as before. He is close to his baseline that I have seen in the past. LUNGS: Lungs are clear. HEART: Regular rhythm. Abdomen: Soft. IMAGING: Chest radiograph shows atelectasis at his lung bases. Intake and output is positive 40 mL. LABORATORY DATA: White count is 15.4, hemoglobin 11.6, platelets 52,000. Sodium 140, potassium 3.8, chloride 105, bicarbonate 23, BUN 66, creatinine 2.09. IMPRESSION: 1. Status post presentation with abdominal pain. Subsequent anticoagulation because of a history of deep venous thromboses. This led to a large subcapsular hematoma in his left kidney that led to coi ling of the left kidney. 2. Acute on chronic renal dysfunction. He is likely dialysis dependent from here forward. 3. Status post craniotomy for seizure disorder in the past which controlled his seizures and then hi s seizures started recurring. 4. Chronic thrombocytopenia. 5. Status post inferior vena cava filter placement. 6. Negative CT angiogram this admission. 7. Left ventricular systolic dysfunction with an ejection fraction of 40-45%. 8. Status post failed permanent access attempt to the left upper extremity. He was scheduled for ac cess attempt in the right upper extremity today, but this was canceled. 9. History of antiphospholipid antibody. 10. History of hypertension. 11. Reported phenytoin intolerance. PLAN: We will continue supportive care. The weakness is the biggest issue that he is facing at this point in time. He was intubated and mechanically ventilated for his intra-abdominal bleeding, but h as stabilized and was extubated. We will try to sit him up in a neuro chair today. He has had no se izures since he has been here. He has a pretty strong contraindication to repeat use of anticoagulan ts at this point, in my opinion. We will continue with attempts at controlling his atrial fibrillati on. He needs to remain in the Critical Care Unit.
[2018-02-04 16:16] LABS: Cytoplasmic (C-ANCA) <1:20 titer (Neg:<1:20); Myeloperoxidase AutoAbs <9.0 U/mL (0.0-9.0); Perinuclear (P-ANCA) <1:20 titer (Neg:<1:20); Proteinase-3 AutoAbs Less than 3.5 U/mL (0.0-3.5)
--- NOTE | 2018-02-04 16:37 | EKG ---
Test Reason : Blood Pressure : / mmHG Vent. Rate : 128 BPM Atrial Rate : 128 BPM P-R Int : 126 ms QRS Dur : 112 ms QT Int : 316 ms P-R-T Axes : 015 026 018 degrees QTc Int : 461 ms Sinus tachycardia with Fusion complexes Minimal voltage criteria for LVH, may be normal variant Inferior infarct (cited on or before 07-JUN-2009) Abnormal ECG When compared with ECG of 26-JAN-2018 10:10, Fusion complexes are now Present Premature ventricular complexes are no longer Present Vent. rate has increased BY 58 BPM Non-specific change in ST segment in Lateral leads Confirmed by DR. Carlos MORFIN ([id number]) on 02/04/2018 4:37:06 PM Referred By: Confirmed By:DR. Carlos MORFIN
--- NOTE | 2018-02-04 17:58 | CON ---
DATE OF CONSULTATION: 02/04/2018 REASON FOR CONSULTATION: Antiphospholipid syndrome. HISTORY OF PRESENT ILLNESS: Mr. Boo is a 47-year-old male with a complicated medical history. He has antiphospholipid syndrome with prior DVTs and PE. He has an IVC filter in place. He also has a chronic thrombocytopenia. He presented to the emergency room with abdominal discomfort . He had stopped his Coumadin several weeks prior to admission. He was started on a heparin drip he re due to antiphospholipid syndrome and unfortunately developed a left renal hemorrhage with retroper itoneal blood. He required intubation and transferred to the ICU. He had worsening kidney dysfuncti on and is currently on dialysis. He has also developed atrial fibrillation since admission. He is n ow extubated, but still in the ICU. He remains extremely weak and a poor historian. PAST MEDICAL HISTORY: 1. Antiphospholipid syndrome. 2. PE, DVT. 3. IVC filter placement. 4. Hypertension. 5. Seizure disorder. 6. Chronic thrombocytopenia. 7. Chronic kidney disease. 8. Cardiomyopathy. PAST SURGICAL HISTORY: 1. Brain surgery. 2. IVC filter placement. 3. Cardiac catheterization. ALLERGIES: DILANTIN and VERSED. HOME MEDICATIONS: 1. Colchicine b.i.d. 2. Lasix 40 mg b.i.d. 3. Toprol XL daily. 4. Trileptal b.i.d. 5. Coumadin 17.5 mg daily. FAMILY HISTORY: Really noncontributory. SOCIAL HISTORY: , lives with his spouse. No alcohol, tobacco or illicit drug use. REVIEW OF SYSTEMS: Unable to obtain as the patient does not answer questions. PHYSICAL EXAMINATION: VITAL SIGNS: Afebrile, heart rate is 108, respiratory rate 16, BP is 142/102. He is 97% on 5 liters . GENERAL: A chronically ill-appearing male, in no acute distress. HEENT: Normocephalic. NECK: Supple. CARDIOVASCULAR: Irregular rate and rhythm. LUNGS: Clear. ABDOMEN: Obese, nontender. Bowel sounds are positive. EXTREMITIES: He has 2+ edema in his bilateral lower extremities. SKIN: No rash. HEMATOLOGICAL: He has got scattered bruising on his arms and neck. NEUROLOGIC: The patient is awake, but is minimally verbal and weak. PERTINENT LABORATORY AND X-RAYS: Current WBCs are 15.4, hemoglobin 11.6, hematocrit 36.5, platelet c ount is 52,000, 87% neutrophils, 5% lymphocytes. Sodium is 140, potassium 3.8, chloride 105, CO2 is 23, BUN is 66, creatinine 2.09, calcium is 9.1. ASSESSMENT: 1. History of antiphospholipid syndrome. 2. Noncompliance with Coumadin. 3. Left renal hemorrhage on heparin drip. 4. Chronic thrombocytopenia. 5. IVC filter placement. 6. Chronic kidney disease. 7. New atrial fibrillation. DISCUSSION: The patient's anticoagulation has been held and should remain held until he has recovere d from his current illness. He will likely need anticoagulation in the future given his multiple med ical problems including atrial fibrillation and antiphospholipid syndrome; however, I will be very he sitant to resume anticoagulation until it is clear that all bleeding has resolved. Thank you for the consult. We will sign off. Call if need. He will be started back on Coumadin.
[2018-02-04] MEDS: Lacri-Lube Opth Oint 3.5 GM TUBE EA EYE PRN (22:38)
--- NOTE | 2018-02-04 23:21 | PDOC.PN ---
- Subjective Encounter Start Date: 02/04/18 Encounter Start Time: 23:19 -: nsg notes rev, susan ovn - Objective Vital Signs & Weight: Vital Signs (12 hours) Temp Pulse BP 02/04/18 22:52 128 H 146/104 H 02/04/18 20:00 98.3 F 02/04/18 16:00 98.4 F 02/04/18 12:00 98.9 F Weight Admit Weight 285 lb Weight 294 lb 5.074 oz Most Recent Monitor Data Heart Rate from ECG 106 NIBP 142/116 NIBP BP-Mean 121 Respiration from ECG 14 SpO2 99 I&O: 02/03/18 02/04/18 02/05/18 06:59 06:59 06:59 Intake Total 1569 1435.3 1490 Output Total 1690 1395 1195 Balance -121 40.3 295 Result Diagrams: 02/04/18 05:29 02/04/18 05:29 Additional Labs: Accuchecks 02/04/18 02/04/18 02/04/18 16:00 10:46 06:09 POC Glucose 143 H 111 H 115 H 02/03/18 23:32 POC Glucose 139 H Dx/Plan - Plan Constitutional: NAD, lying in hospital bed Right lateral neck hematoma associated with tunneled catheter No change in size from yesterday per reports difficulty self re positioning due to weakness Respiratory: no wheezing, no rales, no rhonchi, clear to auscultation bilateral , limited anterior examination Cardiovascular: RRR, s1, s2, no m/r/g, pulses 1+ b/l UE Gastrointestinal: soft, non-tender, no distention, positive bowel sounds Musculoskeletal: no edema Neurological: non-focal Dx/Plan (1) Acute respiratory failure Code(s): J96.00 - ACUTE RESPIRATORY FAILURE, UNSP W HYPOXIA OR HYPERCAPNIA Status: Resolved Comment: Extubated. Appreciate [facility] c/s (2) Renal hemorrhage, left Code(s): N28.89 - OTHER SPECIFIED DISORDERS OF KIDNEY AND URETER Status: Acute Comment: s/p embolization (3) Acute on chronic kidney failure Code(s): N17.9 - ACUTE KIDNEY FAILURE, UNSPECIFIED; N18.9 - CHRONIC KIDNEY DISEASE, UNSPECIFIED Status: Acute Qualifiers: Acute renal failure type: unspecified Chronic kidney disease stage: stage 3 (moderate) Qualified Code(s): N17.9 - Acute kidney failure, unspecified; N18.3 - Chronic kidney disease, stage 3 (moderate); N18.3 - Chronic kidney disease, stage 3 (moderate) Comment: Requiring Hemodialysis. Tunneled right IJ catheter. Apprec nephrology c/s (4) Cardiomyopathy Code(s): I42.9 - CARDIOMYOPATHY, UNSPECIFIED Status: Chronic Apprec cardiology c/s (5) Chronic deep vein thrombosis (DVT) Code(s): I82.509 - CHRONIC EMBOLISM AND THOMBOS UNSP DEEP VN UNSP LOW EXTRM Status: Chronic Qualifiers: DVT location: lower extremity Laterality: bilateral Comment: Hx of IVC filter with evidence of distal venous thrombosis. apprec hematology c/s (6) Anemia due to acute blood loss Code(s): D62 - ACUTE POSTHEMORRHAGIC ANEMIA Status: Acute Comment: s/p pRBC transfusions currently hemodynamically stable - has some intermittent hypertension, currently on cardene gtt (7) Seizure disorder Code(s): G40.909 - EPILEPSY, UNSP, NOT INTRACTABLE, WITHOUT STATUS EPILEPTICUS Status: Chronic Comment: continue Keppra - off home tripleptal apprec neurology c/s (8) Coagulation defect Status: Acute Comment: Antiphospholipid ab. Went off of meds two weeks prior to admission. Hemorrhaged into left kidney and is currently s/p embolization diet: as malika, encourage activity: as malika dvt ppx d/w bedside nsg Review of Systems - Medications/Allergies Allergies/Adverse Reactions: Allergies Allergy/AdvReac Type Severity Reaction Status Date / Time phenytoin sodium Allergy Severe Emesis Verified 01/24/18 08:30 [From Dilantin] phenytoin sodium extended Allergy Severe Emesis Verified 01/24/18 08:30 [From Dilantin] midazolam HCl [From Versed] Allergy Intermediate swelling Verified 01/24/18 08: 30 Medications: Current Medications Acetaminophen (Tylenol) 650 mg PO Q6H PRN PRN Reason: Headache/Fever or Pain Al Hydroxide/Mg Hydroxide (Maalox) 30 ml PO Q4H PRN PRN Reason: Heartburn or Indigestion Last Admin: 01/25/18 21:40 Dose: 30 ml Alteplase, Recombinant (Cathflo) 2 mg CATH ASDIR NEPTALI Sodium Chloride (Normal Saline 0.9%) 1,000 mls @ 0 mls/hr IV .Q0M NEPTALI Last Admin: 01/27/18 10:02 Dose: 1,000 mls Fentanyl Citrate 2,000 mcg/ (Sodium Chloride) 100 mls @ 0 mls/hr IV INF NEPTALI; Protocol Stop: 02/25/18 16:26 Last Admin: 01/31/18 16:58 Dose: 100 mls Fentanyl Citrate (Fentanyl Bolus) 250 mls @ 0 mls/hr IVPB PRN PRN PRN Reason: Breakthrough pain/agitation Stop: 02/25/18 16:26 Levetiracetam 500 mg/ Device 100 mls @ 200 mls/hr IVPB BID NEPTALI Last Admin: 02/04/18 22:39 Dose: 100 mls Norepinephrine Bitartrate (Levophed) 250 mls @ 0 mls/hr IVPB INF PRN; Protocol PRN Reason: KEEP MAP >65 Nicardipine HCl 50 mg/ Sodium (Chloride) 250 mls @ 0 mls/hr IVPB INF NEPTALI; Protocol Last Admin: 02/03/18 13:52 Dose: 250 mls Dexmedetomidine HCl 400 mcg/ (Sodium Chloride) 100 mls @ 0 mls/hr IVPB INF NEPTALI ; Protocol Last Admin: 02/01/18 10:01 Dose: 100 mls Amiodarone HCl 450 mg/Miscellaneous Medication 1 each/ Dextrose/Water 259 mls @ 0 mls/hr IVPB INF NEPTALI; Protocol Last Admin: 02/04/18 16:24 Dose: 259 mls Lorazepam (Ativan) 2 mg SLOW IVP Q1H PRN PRN Reason: Breakthrough agitation Stop: 02/25/18 16:26 Losartan Potassium (Cozaar) 50 mg PO DAILY [facility] Last Admin: 02/04/18 08:44 Dose: 50 mg Methylprednisolone Sodium Succinate (Solu-Medrol) 40 mg IVP Q8HR NEPTALI Last Admin: 02/04/18 22:53 Dose: 40 mg Metoprolol Succinate (Toprol Xl) 100 mg PO BID [facility] Last Admin: 02/04/18 22:51 Dose: 100 mg Mineral Oil/White Petrolatum (Lacri-Lube Ointment) 0 gm EA EYE PRN PRN PRN Reason: Dry Eyes Last Admin: 02/04/18 22:38 Dose: 1 drp Morphine Sulfate (Morphine) 2 mg SLOW IVP Q1H PRN PRN Reason: BREAKTHROUGH PAIN/AGITATION Stop: 02/25/18 16:26 Last Admin: 02/04/18 01:29 Dose: 2 mg Oxcarbazepine (Trileptal) 600 mg PO BID [facility] Last Admin: 02/04/18 22:49 Dose: 600 mg Pantoprazole Sodium (Protonix) 40 mg PO DAILY [facility] Propofol (Diprivan) 1,000 mg IV INF PRN; Protocol PRN Reason: TO ACHIEVE GOAL RASS Stop: 02/25/18 16:26 Last Admin: 01/31/18 21:30 Dose: 1,000 mg Propofol (Diprivan Bolus) 20 mg IV Q5MIN PRN PRN Reason: BREAKTHROUGH AGITATION Stop: 02/25/18 16:26 Sodium Chloride (Flush - Normal Saline) 10 ml IVF Q12HR [facility] Last Admin: 02/04/18 22:51 Dose: 10 ml Sodium Chloride (Flush - Normal Saline) 10 ml IVF PRN PRN PRN Reason: Saline Flush Timolol Maleate (Timoptic 0.5% [facility]) 1 drop EA EYE BID [facility] Last Admin: 02/04/18 22:52 Dose: 1 drop Tramadol HCl (Ultram) 50 mg PO Q6H PRN PRN Reason: Pain Last Admin: 02/03/18 20:12 Dose: 50 mg
[2018-02-05] MEDS: Morphine 2 MG/ML SYRINGE SLOW IVP PRN ×2 (00:21→03:04)
[2018-02-05] MEDS: Lorazepam 2 MG/ML VIAL SLOW IVP PRN ×2 (00:24→03:04)
[2018-02-05 05:38] LABS: Band 2 % (5-11); Hemoglobin 11.5 g/dL (14.0-18.0); Lymphocytes 3 % (21-51); MDiff Complete? YES; Mean Corpuscular HGB CONC 32.1 g/dL (32.0-36.0); Mean Corpuscular Hemoglobin 29.2 pg (27.0-31.0); Mean Corpuscular Volume 91.1 fL (78.0-98.0); Monocytes 4 % (0-10); Neutrophil 91 % (42-75); PLT Morphology Comment Appears Decreased; Platelet Count 41 thou/uL (130-400); RBC Distribution Width 14.8 % (11.5-14.5); Red Blood Cell (RBC) Count 3.92 mill/uL (4.70-6.10); White Blood Cell (WBC) Count 15.7 thou/uL (4.8-10.8)
[2018-02-05 05:40] LABS: Anion Gap 14 mmol/L (10-20); BUN (Urea Nitrogen) 89 mg/dL (8.9-20.6); Calc. Creatinine Clearance 68 mL/min (70-130); Calcium 9.1 mg/dL (7.8-10.44); Carbon Dioxide 25 mmol/L (22-29); Chloride 106 mmol/L (98-107); Estimated GFR-MDRD 27; Glucose 183 mg/dL (70-105); Potassium 4.4 mmol/L (3.5-5.1); Sodium 141 mmol/L (136-145)
--- NOTE | 2018-02-05 06:35 | PRG ---
DATE OF SERVICE: 02/04/2018 SUBJECTIVE: Hans Boo has had a seizure, which is postictal. He has gone into atrial fibrillat ion with RVR. Dr. Lezama has seen him. He is on amiodarone drip. OBJECTIVE: VITAL SIGNS: Heart rate 120-130, blood pressure . Patient has a glassy stare postictal. LUNGS: Clear to auscultation. CARDIAC: Irregularly irregular. Heart rate 120-130. ABDOMEN: Soft. EXTREMITIES: Surgical wound in the left forearm looks good. ASSESSMENT: End-stage renal disease. PLAN: We will postpone, placement of his dialysis fistula right arm today and plan that on Wednesday. Hopefully, he will be more stable by then.
[2018-02-05] MEDS: Amiodarone HCl 450 MG, Admixture Fee 1 EACH in Dextrose 5% in Water 250 ML IVPB SCH (09:26)
--- NOTE | 2018-02-05 09:38 | PRG ---
DATE OF SERVICE: 02/05/2018 SUBJECTIVE: Mr. Hans Boo Jr. is a 47-year-old white male who is being followed by the Renal Se [facility] for his acute kidney injury on top of his chronic renal failure. His hospitalization was marre d by an acute left renal bleed, subsequently underwent embolization for stabilization of his bleeding , went into acute respiratory failure, was intubated and now extubated. We are following him up for his maintenance hemodialysis. I am at the bedside currently supervising his dialysis. Of interest, this patient's I and O has slowly been stable over time. He is diuresing well. Last night, the patient became very agitated and was sedated. OBJECTIVE: VITAL SIGNS: Blood pressure is currently 143/110 with a heart rate of 101, respiratory rate 10, puls e ox 94%. GENERAL: The patient is awake, but confused, not in distress. SKIN: Adequate turgor. HEENT: He has pinkish conjunctivae, anicteric sclerae. NECK: No neck mass, no carotid bruits, no JVD. CHEST: No deformities. LUNGS: Clear breath sounds. No wheezing, no crackles. HEART: Normal sinus rhythm. No murmur, no gallops, no rubs. ABDOMEN: Globular, soft, nontender, no masses. EXTREMITIES: No edema, no deformities. MEDICATIONS: Of 02/05/2018 was reviewed. LABORATORY DATA: Of 02/05/2018, white count 15.7, hemoglobin 11.5, sodium 141, potassium 4.4, chlori de 106, carbon dioxide 25, BUN 89, creatinine 2.54, glucose 183, calcium 9.1. ASSESSMENT AND PLAN: 1. Acute kidney injury/chronic renal failure - patient is status post left renal embolization. He h as essentially solitary kidney. Creatinine noted at 2.54. Continue to observe for possible renal re covery. Currently undergoing hemodialysis. Will be having 2 days without dialysis and we will be ob serving his renal function. 2. Status post left renal bleed - stable. H&H is actually improved. He is status post renal emboli zation. 3. Acute respiratory failure, resolved. He is now currently extubated. His overall prognosis remai ns guarded.
--- NOTE | 2018-02-05 09:50 | PDOC.PN ---
- Subjective Encounter Start Date: 02/05/18 Encounter Start Time: 09:48 Mr. Boo was seen today in follow-up of acute renal failure following left renal hemorrhage. He is currently on dialysis . He appears very weak. He denies any chest pain or shortness of breath. He denies pain in his extremities. - Objective MAR Reviewed: Yes Vital Signs & Weight: Vital Signs (12 hours) Temp Pulse BP Pulse Ox 02/05/18 08:33 98 02/05/18 04:00 98.8 F 02/05/18 00:00 98.1 F 02/04/18 22:52 128 H 146/104 H Weight Admit Weight 285 lb Weight 294 lb 5.074 oz Most Recent Monitor Data Heart Rate from ECG 101 NIBP 143/110 NIBP BP-Mean 121 Respiration from ECG 10 SpO2 94 I&O: 02/04/18 02/05/18 02/06/18 06:59 06:59 06:59 Intake Total 1435.3 2261 Output Total 1395 1920 Balance 40.3 341 Result Diagrams: 02/05/18 04:01 02/05/18 04:01 Additional Labs: Accuchecks 02/05/18 02/04/18 02/04/18 04:05 16:00 10:46 POC Glucose 175 H 143 H 111 H Phys Exam - Physical Examination HEENT: PERRLA, sclera anicteric Respiratory: no wheezing, no rales, no rhonchi, clear to auscultation bilateral Cardiovascular: RRR, no significant murmur, no rub tachycardic Gastrointestinal: soft, non-tender, no distention, positive bowel sounds Musculoskeletal: edema present trace pedal edema, and chronic venous stasis changes, and bruising on his calves Neurological: non-focal, moves all 4 limbs Dx/Plan (1) Retroperitoneal hemorrhage Code(s): R58 - HEMORRHAGE, NOT ELSEWHERE CLASSIFIED Status: Acute (2) Acute kidney failure Status: Acute Comment: Due to ATN (3) Renal hemorrhage, left Code(s): N28.89 - OTHER SPECIFIED DISORDERS OF KIDNEY AND URETER Status: Acute Comment: s/p embolization (4) HTN (hypertension) Code(s): I10 - ESSENTIAL (PRIMARY) HYPERTENSION Status: Chronic Qualifiers: Hypertension type: essential hypertension Qualified Code(s): I10 - Essential (primary) hypertension (5) Seizure disorder Code(s): G40.909 - EPILEPSY, UNSP, NOT INTRACTABLE, WITHOUT STATUS EPILEPTICUS Status: Chronic Comment: continue Keppra (6) Antiphospholipid syndrome Code(s): D68.61 - ANTIPHOSPHOLIPID SYNDROME Status: Chronic (7) Chronic systolic congestive heart failure, NYHA class 3 Code(s): I50.22 - CHRONIC SYSTOLIC (CONGESTIVE) HEART FAILURE Status: Chronic (8) Physical deconditioning Code(s): R53.81 - OTHER MALAISE Status: Acute - Plan * Chart reviewed and patient examined. Mr. Boo has a history of Antiphospholipid Syndrome with previous DVT and PE om chronic anticoagulation. He also has a history of seizure disorder. He apparently was non-compliant with medications prior to admission. He was admitted with complaints of left flank pain. He developed a subcapsular hemmorhage of the left kidney which caused a severe retroperitoneal Bleed. He developed respiratory distress coded and was intubated. He also developed acute renal failure as a result of this insult thus far requiring hemodialysis. He required embolization of the kidney to maintain hemostasis. He has suffered a seizure during this hospital stay, as well as developed AFIB with RVR * Acute Respiratory failure- resolved- he has been extubated, and currently is clinically stable from this standpoint * Acute Kidney failure- continue dialysis * HTN- blood pressure is a bit elevated- will monitor his trend, and adjust medications as needed * Seizure disorder- continue Keppra and Trileptal * Chronic systolic heart failure- compensated * Physical Deconditioning- agree with PT * He can be moved to [facility], [place] .
[2018-02-05] MEDS ORDERED: Metoprolol Tartrate 5 MG/5 ML VIAL IVP SCH (10:00)
[2018-02-05] MEDS: OXcarbazepine 300 MG TAB PO SCH ×2 (10:04→20:46)
[2018-02-05] MEDS: Losartan 25 MG TAB PO SCH (10:04)
[2018-02-05] MEDS: Timolol 0.5% Ophth Soln 5 ml Bottle EA EYE SCH ×2 (10:05→20:46)
[2018-02-05] MEDS ORDERED: Heparin 1,000 UNITS/ML VIAL ONE (11:11)
--- NOTE | 2018-02-05 12:27 | PRG ---
DATE OF SERVICE: 02/05/2018 SERVICE: Pulmonary Medicine. INTERVAL HISTORY: The patient is doing really well from a respiratory standpoint. He denies any [address] discomfort, shortness of breath. He remains extraordinarily weak. His blood pressures are little bit elevated this morning. Otherwise, there has been no interval change to his condition. PHYSICAL EXAMINATION: VITAL SIGNS: Afebrile, pulse 122, blood pressure 237/111, respirations 23, saturation 98% on 2 liter s nasal cannula. GENERAL: The patient is awake and alert, in no apparent distress. LUNGS: Excellent air entry. Dependent crackles are minimal. No prolonged expiratory phase or wheez ing is present. HEART: Normal rate, regular. ABDOMEN: Soft, nontender, nondistended. Bowel sounds are positive. MUSCULOSKELETAL: No cyanosis or clubbing. There is diffuse 1+ pitting throughout. GENITOURINARY: Morris catheter in place. NEUROLOGIC: Grossly nonfocal. LABORATORY DATA: WBC 15.7, hemoglobin 11.5, platelets 41,000 and gently down trending. Neutrophil c ount is 92%, but the bands are only 2. Creatinine 2.54 and up trending, BUN 89. Basic metabolic pro file is otherwise unremarkable. Urinalysis is negative. Urine drug screen is unremarkable currently . Immunology including ANCA studies are negative. Serologies are also unremarkable including hepati tis B and C serologies. Blood cultures x2 and urine cultures remain unremarkable. ASSESSMENT: 1. Acute kidney injury on chronic kidney disease, currently requiring dialysis. 2. Acute hypoxic respiratory failure. 3. Acute blood loss anemia. 4. Hematoma of the left kidney, status post coiling. 5. Deep venous thrombosis, status post inferior vena cava filter plate placement. 6. Acute on chronic systolic heart failure. 7. Antiphospholipid antibody syndrome. DISCUSSION AND PLAN: We are going to continue our mobilization efforts. He is on the dialysis [facility] ntly. We will initiate some blood pressure medications and provide him with p.r.n. blood pressure me dications. He will be transitioned to the intermediate care unit. Pulmonary Critical Care will cont inue to follow along for the time being.
[2018-02-05] MEDS ORDERED: Amlodipine 10 MG TAB PO SCH (12:30)
[2018-02-05] MEDS: traMADol HCl 50 MG TAB PO PRN (12:48)
[2018-02-05] MEDS: Labetalol HCl 100 MG/20 ML VIAL SLOW IVP PRN (12:49)
[2018-02-05] MEDS ORDERED: Carvedilol 6.25 MG TAB PO SCH ×2 (17:00)
[2018-02-05] MEDS: Carvedilol 6.25 MG TAB PO SCH (17:50)
[2018-02-06] MEDS: Amiodarone HCl 450 MG, Admixture Fee 1 EACH in Dextrose 5% in Water 250 ML IVPB SCH ×2 (01:43→16:19)
[2018-02-06 04:13] LABS: #Eosinphils 0.1 thou/uL (0.0-0.7); #Lymphocytes 0.8 thou/uL (1.20-3.40); #Monocytes 1.2 thou/uL (0.11-0.59); #Neutrophils 13.8 thou/uL (1.40-6.50); %Basophils 0.1 % (0.0-1.0); %Eosinophils 0.4 % (0.0-10.0); %Lymphocytes 4.8 % (21.0-51.0); %Monocytes 7.3 % (0.0-10.0); %Neutrophils 87.4 % (42.0-75.0); Hemoglobin 11.4 g/dL (14.0-18.0); Mean Corpuscular HGB CONC 32.3 g/dL (32.0-36.0); Mean Corpuscular Hemoglobin 29.7 pg (27.0-31.0); Mean Platelet Volume 10.7 fL (7.4-10.4); Platelet Count 47 thou/uL (130-400); RBC Distribution Width 14.6 % (11.5-14.5); Red Blood Cell (RBC) Count 3.84 mill/uL (4.70-6.10); White Blood Cell (WBC) Count 15.8 thou/uL (4.8-10.8)
[2018-02-06 04:30] LABS: Anion Gap 15 mmol/L (10-20); BUN (Urea Nitrogen) 71 mg/dL (8.9-20.6); Calc. Creatinine Clearance 68 mL/min (70-130); Carbon Dioxide 23 mmol/L (22-29); Chloride 101 mmol/L (98-107); Estimated GFR-MDRD 28; Glucose 130 mg/dL (70-105); Potassium 4.1 mmol/L (3.5-5.1); Sodium 135 mmol/L (136-145)
[2018-02-06] MEDS: Losartan 25 MG TAB PO SCH (09:51)
[2018-02-06] MEDS: OXcarbazepine 300 MG TAB PO SCH ×2 (09:53→20:00)
[2018-02-06] MEDS: Carvedilol 6.25 MG TAB PO SCH ×2 (09:53→18:11)
[2018-02-06] MEDS: Amlodipine 10 MG TAB PO SCH (09:53)
[2018-02-06] MEDS: Timolol 0.5% Ophth Soln 5 ml Bottle EA EYE SCH ×2 (09:54→20:00)
--- NOTE | 2018-02-06 10:05 | PDOC.PN ---
- Subjective Encounter Start Date: 02/06/18 Encounter Start Time: 10:03 Mr. Boo was seen today in follow-up of severe retroperitoneal bleed. He is very weak. He notes some pain in his feet. He denies shortness of breath. He says his feet are sore. - Objective MAR Reviewed: Yes Vital Signs & Weight: Vital Signs (12 hours) Temp Pulse Resp BP BP Pulse Ox 02/06/18 09:54 109 H 106/72 02/06/18 09:53 109 H 106/72 02/06/18 07:31 96.7 F L 109 H 18 157/96 H 97 02/06/18 04:00 97.6 F 100 14 133/83 93 L 02/05/18 23:56 97.7 F 83 16 121/97 H 97 Weight Admit Weight 285 lb Weight 291 lb 4.8 oz Most Recent Monitor Data Heart Rate from ECG 107 NIBP 144/94 NIBP BP-Mean 110 Respiration from ECG 13 SpO2 95 I&O: 02/05/18 02/06/18 02/07/18 06:59 06:59 06:59 Intake Total 2261 600 Output Total 1920 500 Balance 341 100 Result Diagrams: 02/06/18 03:46 02/06/18 03:46 Additional Labs: Accuchecks 02/05/18 02/05/18 02/05/18 20:25 16:34 13:28 POC Glucose 146 H 126 H 135 H Phys Exam - Physical Examination HEENT: PERRLA Respiratory: no wheezing, no rales, no rhonchi, clear to auscultation bilateral Cardiovascular: no significant murmur, no rub, irregular no gallop Gastrointestinal: soft, non-tender, no distention, positive bowel sounds Musculoskeletal: pulses present trace pedal edema, chronic venous stasis changes both feet are warm and dry, no lesions, hammer toe deformity Neurological: non-focal Dx/Plan (1) Retroperitoneal hemorrhage Code(s): R58 - HEMORRHAGE, NOT ELSEWHERE CLASSIFIED Status: Acute (2) Acute kidney failure Status: Acute Comment: Due to ATN (3) Renal hemorrhage, left Code(s): N28.89 - OTHER SPECIFIED DISORDERS OF KIDNEY AND URETER Status: Acute Comment: s/p embolization (4) HTN (hypertension) Code(s): I10 - ESSENTIAL (PRIMARY) HYPERTENSION Status: Chronic Qualifiers: Hypertension type: essential hypertension Qualified Code(s): I10 - Essential (primary) hypertension (5) Seizure disorder Code(s): G40.909 - EPILEPSY, UNSP, NOT INTRACTABLE, WITHOUT STATUS EPILEPTICUS Status: Chronic Comment: continue Keppra (6) Antiphospholipid syndrome Code(s): D68.61 - ANTIPHOSPHOLIPID SYNDROME Status: Chronic (7) Chronic systolic congestive heart failure, NYHA class 3 Code(s): I50.22 - CHRONIC SYSTOLIC (CONGESTIVE) HEART FAILURE Status: Chronic (8) Physical deconditioning Code(s): R53.81 - OTHER MALAISE Status: Acute (9) Atrial fibrillation Code(s): I48.91 - UNSPECIFIED ATRIAL FIBRILLATION Status: Acute - Plan * Patient is s/p Left kidney hemorrhage, with retroperitoneal bleed. His H&H has remained stable. He is s/p embolization of the left kidney * Acute kidney injury- due to ATN- discussed with Dr. De La Rosa- his renal function may recover- will continue to monitor his creatinine, and may hold off on dialysis catheter placement * HTN- blood pressure is better, Amlodipine, and Carvediolol have been added * Seizure disorder- stable * Chronic systolic heart failure- compensated * Atrial Fibrillation- continue Amiodarone drip- Cardiology managing * Severe deconditioning- continue PT.
--- NOTE | 2018-02-06 10:48 | PRG ---
DATE OF SERVICE: 02/06/2018 SUBJECTIVE: Mr. Boo is a 47-year-old white male, who was admitted for abdominal pain and was f ound to have a left perinephric hematoma. This was actively bleeding and underwent renal embolizatio n. This was successful and bleeding has now stopped. However, during the course of his hospitalizat ion, he developed acute renal failure on top of his chronic renal failure. He is currently on mainte nance hemodialysis. Of interest, this patient is making adequate urine output for the moment. We ar e observing for possible renal recovery with this patient where I can get him off of dialysis. For t he moment, in anticipation of eventual ESRD status, the patient will be having another fistula placed tomorrow by Dr. Wagner. No new complaints today. Denies any chest pain or shortness of breath. OBJECTIVE: VITAL SIGNS: Blood pressure is 106/72 with a heart rate now at 101, respiratory rate is 12. GENERAL EXAM: Awake, supine, comfortable, not in overt distress. SKIN: Adequate turgor. HEENT: He has pinkish conjunctivae, anicteric sclerae. NECK: No neck mass, no carotid bruits, no JVD. CHEST: No deformities. LUNGS: Clear breath sounds. HEART: Normal sinus rhythm. No murmur, no gallops, no rubs. ABDOMEN: Globular, soft, nontender, no masses. EXTREMITIES: No edema, no deformities. Medications of 02/06/2018 were reviewed. LABORATORY DATA: Laboratories of 02/06/2018, white count 15.8, hemoglobin 11.4. Sodium 135, potassi um 4.1, chloride 101, carbon dioxide 23, BUN 71, creatinine 2.51, glucose 130, calcium is 9.0. ASSESSMENT AND PLAN: 1. Acute kidney injury on top of his chronic renal failure - patient now has a solitary kidney - rig ht kidney - he most likely also had a superimposed acute tubular necrosis. We are currently continui ng maintenance hemodialysis of 3 times a week. Observe for any possible renal recovery where we can get him off dialysis. 2. Status post left renal bleed - much improved with embolization of the left renal kidney and his h emoglobin/hematocrit established over time. 3. Acute respiratory failure, resolved. 4. Tachycardia - patient is on IV amiodarone drip. The patient currently on Coreg. He was previous ly on metoprolol and this has now been changed to Coreg. Overall, agree with current management.
--- NOTE | 2018-02-06 14:07 | PRG ---
DATE OF SERVICE: 02/06/2018 SERVICE: Pulmonary Medicine. INTERVAL HISTORY: The patient is doing outstanding from a respiratory standpoint. He is breathing c omfortably. There has been no significant interval change to his condition. Otherwise, nursing repo rts no overnight events. PHYSICAL EXAMINATION: VITAL SIGNS: Afebrile, pulse 59, blood pressure 150/73, respirations 18, saturation 100% on 2 liters nasal cannula. GENERAL: Patient is awake, alert, no apparent distress. LUNGS: Excellent air entry. There is no prolonged expiratory phase, wheezing. Rhonchi are present. Crackles dependently are also noted. HEART: Normal rate, regular. ABDOMEN: Soft, nontender, nondistended. Bowel sounds are positive. MUSCULOSKELETAL: No cyanosis or clubbing. There is 1+ to 2+ pitting throughout. GENITOURINARY: Morris catheter in place. NEUROLOGIC: Grossly nonfocal. LABORATORY DATA: WBC 15.8, hemoglobin 11.4, platelets 47,000. Creatinine 2.51 and roughly stable. BUN 71 and down trending. Basic metabolic profile is otherwise unremarkable. Blood cultures x2, uri ne culture remains negative. ASSESSMENT: 1. Acute kidney injury on chronic kidney disease, currently requiring dialysis. 2. Acute hypoxic respiratory failure. 3. Acute blood loss anemia. 4. Hematoma of the left kidney, status post coiling. 5. Deep venous thrombosis, status post inferior vena cava filter placement. 6. Acute on chronic systolic heart failure. 7. Antiphospholipid antibody syndrome. DISCUSSION AND PLAN: We will continue mobilization efforts. Supportive care including dialysis will be continued. We will watch for increasing signs of infection. If they exist, repeat culture will be considered. He will remain in the IMCU for the time being.
[2018-02-06] MEDS: traMADol HCl 50 MG TAB PO PRN ×2 (14:41→19:56)
[2018-02-07] MEDS: Labetalol HCl 100 MG/20 ML VIAL SLOW IVP PRN (04:11)
[2018-02-07 04:37] LABS: #Lymphocytes 0.6 thou/uL (1.20-3.40); #Neutrophils 13.2 thou/uL (1.40-6.50); %Eosinophils 0.1 % (0.0-10.0); %Monocytes 6.5 % (0.0-10.0); %Neutrophils 89.3 % (42.0-75.0); Hemoglobin 11.9 g/dL (14.0-18.0); Mean Corpuscular HGB CONC 32.1 g/dL (32.0-36.0); Mean Corpuscular Hemoglobin 29.3 pg (27.0-31.0); Mean Corpuscular Volume 91.4 fL (78.0-98.0); Mean Platelet Volume 10.8 fL (7.4-10.4); Platelet Count 50 thou/uL (130-400); RBC Distribution Width 14.8 % (11.5-14.5); Red Blood Cell (RBC) Count 4.06 mill/uL (4.70-6.10); White Blood Cell (WBC) Count 14.7 thou/uL (4.8-10.8)
[2018-02-07 04:51] LABS: Anion Gap 18 mmol/L (10-20); BUN (Urea Nitrogen) 95 mg/dL (8.9-20.6); Calc. Creatinine Clearance 52 mL/min (70-130); Calcium 9.1 mg/dL (7.8-10.44); Carbon Dioxide 22 mmol/L (22-29); Chloride 100 mmol/L (98-107); Estimated GFR-MDRD 20; Glucose 140 mg/dL (70-105); Potassium 4.5 mmol/L (3.5-5.1); Sodium 135 mmol/L (136-145)
[2018-02-07] MEDS: Carvedilol 6.25 MG TAB PO SCH ×2 (06:12→17:10)
--- NOTE | 2018-02-07 10:04 | PRG ---
DATE OF SERVICE: 02/07/2018 SUBJECTIVE: Mr. Boo is a 47-year-old white male followed up at the [facility] for his acute kidney injury on top of his chronic renal failure. He is now currently on maintenance hemodialysis. I did review his lab work. I do not see any evidence of renal recovery where I can get him off michelle lysis. He has a planned placement of AV fistula again this week. No acute events noted last night. No complaints of chest pain or shortness of breath. The patient is noted to be extubated. PHYSICAL EXAMINATION: VITAL SIGNS: Blood pressure 144/97, heart rate 61, respiratory rate 18, temperature 97.6, pulse ox 9 8%. GENERAL: Noted to be awake, supine, comfortable, not in distress. SKIN: Adequate turgor. HEENT: Pinkish conjunctivae, anicteric sclerae. NECK: No neck mass, no carotid bruits, no JVD. CHEST: No deformities. LUNGS: Clear breath sounds, no wheezing, no crackles. HEART: Normal sinus rhythm. No murmur, no gallops, no rubs. ABDOMEN: Globular, soft, nontender. No masses. EXTREMITIES: No edema, no deformities. MEDICATIONS: 02/07/2018 - Reviewed. LABORATORY DATA: 02/07/2018 - White count 14.7, hemoglobin 11.9. Sodium 135, potassium 4.5, chlorid e 100, carbon dioxide 22, BUN 95, creatinine 3.28, glucose 140, calcium 9.1. ASSESSMENT AND PLAN: 1. Acute kidney injury/chronic renal failure - superimposed prolonged acute tubular necrosis. No ev idence of renal recovery. We will evaluate again tomorrow to see if he will need another dialytic in tervention. For the moment, agree with current management. Continue supportive care. 2. Status post left renal bleed - patient is status post renal embolization, hemoglobin and hematocr it established. No indication of any blood transfusion. Overall, I agree with current management.
--- NOTE | 2018-02-07 11:04 | PDOC.CTH ---
Cardiology Progress Note - Subjective The pt seen and examined. No overnight events. No cardiac complaints. - Objective Vital Signs Temp Pulse Pulse Pulse Resp BP BP 02/07/18 09:52 103 H 152 H 147/93 H 02/07/18 07:29 97.6 F 61 18 02/07/18 06:12 173/99 H 02/07/18 04:11 112 H 188/97 H 02/07/18 03:48 97 20 02/06/18 23:59 97.3 F L 108 H 18 BP BP Pulse Ox Pulse Ox Pulse Ox 02/07/18 09:52 170/113 H 100 100 02/07/18 07:29 144/97 H 98 02/07/18 06:12 02/07/18 04:11 02/07/18 03:48 167/90 H 100 02/06/18 23:59 166/95 H 99 Admit Weight 285 lb Weight 288 lb 4.8 oz 02/06/18 02/07/18 02/08/18 06:59 06:59 06:59 Intake Total 600 1691 Output Total 500 1150 Balance 100 541 - Physical Examination General/Neuro: alert & oriented x3 Neck: no JVD present Lungs: CTA Heart: other: (irregular) Abdomen: soft Extremities: other: (1+ pitting edema to BLE) - Telemetry Telemetry Rhythm: Aflutter with HR 90-110s - Labs Result Diagrams: 02/07/18 04:02 02/07/18 04:02 Troponin/CKMB CK-MB (CK-2) 0.5 ng/mL (0-6.6) 01/24/18 04:01 Troponin I 0.127 ng/mL (< 0.028) H 01/26/18 09:12 - Assessment/Plan 1. Afib/Aflutter with RVR - Remains in Aflutter with HR 90-110s. Amiodarone was changed from IV to 400mg PO BID from today. Requested EP consult. 2. HTN - elevated today since no BP med this AM for NPO for AV fistula placement at 1100. Cont. to monitor 3. Lt perinephric hemorrage with s/p renal embolization with coiling - H&H level have been stable. 4. ELIZABETH on CKD with HD - managed by engineering coordinator; plan for AV fistula placement today 5. Chronic Systolic HF - stable 6. Antiphospholipid syndrome with Hx of DVT and PE and IVC fluter placement - managed by oncology service 7. Seizure disorder - MAR reviewed Review of Systems - Review of Systems Constitutional: reports: no symptoms reported EENTM: reports: no symptoms reported Respiratory: reports: no symptoms reported Cardiac (ROS): reports: no symptoms reported ABD/GI: reports: no symptoms reported : reports: no symptoms reported Musculoskeletal: reports: no symptoms reported
[2018-02-07] MEDS: Amiodarone 200 MG TAB PO SCH ×2 (12:13→20:40)
[2018-02-07] MEDS: Amlodipine 10 MG TAB PO SCH (12:13)
[2018-02-07] MEDS: Losartan 25 MG TAB PO SCH (12:13)
[2018-02-07] MEDS: OXcarbazepine 300 MG TAB PO SCH ×2 (12:14→20:41)
[2018-02-07] MEDS: Timolol 0.5% Ophth Soln 5 ml Bottle EA EYE SCH ×2 (12:14→20:40)
--- NOTE | 2018-02-07 13:57 | PDOC.PN ---
- Subjective Encounter Start Date: 02/07/18 Encounter Start Time: 12:15 -: old records requested/rev Pt seen and examined, chart reviewed in its entirety, this is my first visit with this patient follow up for: ARF on CKD resulting in ESRd on HD, APLS, renal hemartoma s/p embolization and infarction of the kidney, physical deconditioning No F/C, no N/V/D/C, no CP or SOB All systems reviewed and neg except as above - Objective MAR Reviewed: Yes Vital Signs & Weight: Vital Signs (12 hours) Temp Pulse Pulse Pulse Resp BP BP 02/07/18 12:14 84 170/97 H 02/07/18 12:13 84 170/97 H 02/07/18 11:04 106 H 18 02/07/18 09:52 103 H 152 H 147/93 H 02/07/18 08:00 02/07/18 07:29 97.6 F 61 18 02/07/18 06:12 173/99 H 02/07/18 04:11 112 H 188/97 H 02/07/18 03:48 97 20 BP BP Pulse Ox Pulse Ox Pulse Ox 02/07/18 12:14 02/07/18 12:13 02/07/18 11:04 169/108 H 92 L 02/07/18 09:52 170/113 H 100 100 02/07/18 08:00 98 02/07/18 07:29 144/97 H 98 02/07/18 06:12 02/07/18 04:11 02/07/18 03:48 167/90 H 100 Weight Admit Weight 285 lb Weight 288 lb 4.8 oz Most Recent Monitor Data Heart Rate from ECG 107 NIBP 144/94 NIBP BP-Mean 110 Respiration from ECG 13 SpO2 95 I&O: 02/06/18 02/07/18 02/08/18 06:59 06:59 06:59 Intake Total 600 1691 Output Total 500 1150 Balance 100 541 Result Diagrams: 02/09/18 04:15 02/11/18 05:37 Radiology Reviewed by me: Yes EKG Reviewed by me: Yes Phys Exam - Physical Examination Constitutional: NAD chronically ill-appearing HEENT: PERRLA, moist MMs, sclera anicteric, oral pharynx no lesions Neck: no nodes, no JVD, supple, full ROM Respiratory: no wheezing, no rales, no rhonchi, clear to auscultation bilateral Cardiovascular: RRR, no significant murmur, no rub Gastrointestinal: soft, non-tender, no distention, positive bowel sounds Musculoskeletal: pulses present, edema present Neurological: non-focal, normal sensation, moves all 4 limbs Lymphatic: no nodes Psychiatric: normal affect, A&O x 3 Skin: no rash, normal turgor, cap refill <2 seconds Dx/Plan (1) Acute kidney failure Status: Acute Comment: Due to ATN (2) Anemia due to acute blood loss Code(s): D62 - ACUTE POSTHEMORRHAGIC ANEMIA Status: Resolved Comment: s/p pRBC transfusions (3) Atrial fibrillation Code(s): I48.91 - UNSPECIFIED ATRIAL FIBRILLATION Status: Chronic Qualifiers: Atrial fibrillation type: paroxysmal Qualified Code(s): I48.0 - Paroxysmal atrial fibrillation (4) Coagulation defect Status: Chronic Comment: Antiphospholipid ab. Went off of meds two weeks prior to admission. Hemorrhaged into left kidney. (5) Physical deconditioning Code(s): R53.81 - OTHER MALAISE Status: Chronic (6) Renal hemorrhage, left Code(s): N28.89 - OTHER SPECIFIED DISORDERS OF KIDNEY AND URETER Status: Resolved Comment: s/p embolization (7) Retroperitoneal hemorrhage Code(s): R58 - HEMORRHAGE, NOT ELSEWHERE CLASSIFIED Status: Resolved (8) Antiphospholipid syndrome Code(s): D68.61 - ANTIPHOSPHOLIPID SYNDROME Status: Chronic (9) Chronic systolic congestive heart failure, NYHA class 3 Code(s): I50.22 - CHRONIC SYSTOLIC (CONGESTIVE) HEART FAILURE Status: Chronic (10) Acute respiratory failure Code(s): J96.00 - ACUTE RESPIRATORY FAILURE, UNSP W HYPOXIA OR HYPERCAPNIA Status: Resolved Qualifiers: Respiratory failure complication: hypoxia Qualified Code(s): J96.01 - Acute respiratory failure with hypoxia Comment: Extubated. Pulmonary/CC following. (11) ELIZABETH (acute kidney injury) Code(s): N17.9 - ACUTE KIDNEY FAILURE, UNSPECIFIED Status: Resolved Comment : Cr down to 2.02. hold fluids now. Renal following (12) Abnormal cardiac enzyme level Code(s): R74.8 - ABNORMAL LEVELS OF OTHER SERUM ENZYMES Status: Acute Comment: pt was seen by cardiology in [place] for possible MR repair vs replacement, was not a candidate due to seizure. - Plan cont current plan of care, PT/OT, out of bed/ambulate * .
--- NOTE | 2018-02-07 15:42 | PRG ---
DATE OF SERVICE: 02/07/2018 SUBJECTIVE: Mr. Boo is much more alert and cooperative. He is being evaluated for right upper extremity vascular access this week. He has no complaints. He is very quick to answer questions, was actually smiling and laughing when I walked into the room. He still has intermittent periods of hypertension. OBJECTIVE: VITAL SIGNS: His heart rate is in the 80s, respiratory rate is 18, oximetry is 92 on room air. LUNGS: Clear. HEART: Regular rhythm. ABDOMEN: Soft and nontender. EXTREMITIES: No clubbing, cyanosis or edema. LABORATORY DATA: White count 14.7, hemoglobin 11.9, platelets 50,000. Sodium 135, potassium 4.5, ch loride 100, bicarbonate 22, BUN 95, creatinine 3.28. IMPRESSION: 1. Acute on chronic kidney disease. 2. History of seizure disorder treated with a craniotomy in the past. 3. Status post subcapsular hemorrhage on heparin leading to embolization of the kidney on the left. PLAN: Continue supportive care. I have asked the nurse to start getting him up in a chair and start with physical therapy.
[2018-02-07] MEDS ORDERED: CEFAZOLIN/Water 2 GM/20 ML SYRINGE SLOW IVP SCH (16:45)
[2018-02-07] MEDS: Sodium Chloride 0.9% 1,000 ML IV SCH (17:04)
[2018-02-07] MEDS ORDERED: Tuberculin PPD 0.1 ML VIAL I-DERMAL SCH (20:00)
--- NOTE | 2018-02-07 21:57 | CON ---
DATE OF CONSULTATION: 02/07/2018 ELECTROPHYSIOLOGY CONSULTATION REPORT REFERRING PHYSICIAN: Dr. Jefferson. I am seeing Mr. Boo at our [facility] ICU as an electrophysiology healthcare consultant. His problems are: 1. New onset of persisting atrial fibrillation/flutter. A. Amiodarone therapy initiated this admit. 2. Chronic CHF with likely nonischemic cardiomyopathy. A. Prior history of severely reduced LV and then improvement in normal levels, most recently LVEF 40%-45% on echo 01/27/2018 with mild MR and mild mitral stenosis possibly bicuspid aortic valve and RV systolic pressures at 40hgmm, mild TR. 3. Renal insufficiency, worsening currently receiving dialysis catheter for hemodialysis planned. 4. Antiphospholipid syndrome with history of DVTs and PE and status post IVC filter placement management includes the service. 5. History of seizure disorder with prior brain surgery. 6. History of perinephric hemorrhage, renal embolization and coiling. 7. Low platelet counts. 8. Hypertension. ALLERGIES: PHENYTOIN, SODIUM, and MIDAZOLAM. MEDICATIONS: At home include metoprolol succinate 25 grams daily, timolol, colchicine, oxcarbazepine, warfarin, and furosemide. SUBJECTIVE: Mr. Boo is here with acute renal insufficiency. It was found to have a thromboembolic disease. He was started on heparin. While he arrived in sinus rhythm subsequently, he developed atrial fibrillation/flutter with rapid rates. He was started on dialysis. IVC filter was placed. Dr. Lezama and Dr. Jefferson was consulted from Cardiologyhence the reduced LVEF and the atrial fibrillation with rapid rate. He could not tolerate diltiazem due to low blood pressure. Currently, he is doing fair. He is awaiting tunneled catheter placement. Denies fever, chills, or cough. No stroke-like symptoms, no neurological deficit. No chest pains. REVIEW OF SYSTEMS: Otherwise, unremarkable. PAST MEDICAL HISTORY: As above. SOCIAL HISTORY: Patient denies smoking, ETOH, or drug abuse. FAMILY HISTORY: Noncontributory. OBJECTIVE: VITAL SIGNS: Blood pressure is 141/94, heart rate 80, respirations 17, temperature 96.6 degrees Fahrenheit. GENERAL: He is alert and oriented man in no apparent distress. NECK: Supple. Jugular veins are not distended. CHEST: Coarse without crackles. CARDIAC: Heart sounds are irregularly regular. S1, S2, variable. No murmur, rubs, or gallop. ABDOMEN: Benign. Bowel sounds positive. MUSCULOSKELETAL: No joint swelling or deformities. SKIN: With subcutaneous hematoma in the neck area. Triple lumen catheter is in place. IMAGING: The EKGs initially reveals sinus rhythm with rates of 83 beats per minute, nonspecific ST-T changes, left ventricular hypertrophy is present. Subsequently on the 01/28/2018, he does have rapid atrial fibrillation type rhythm. The most recent EKG from 02/03/2018 reveals an atrial flutter, although somewhat difficult to characterize underlying flutter due to rapid rates. LABORATORY DATA: White count 15.8, hemoglobin 11.4, platelet count is 47. Sodium 135, potassium 4.5, BUN is 95, creatinine 3.28. INR is 1.8 on 2017. PTT is 69. ASSESSMENT AND PLAN: 1. Mr. Boo is a 47-year-old man with prior history of cardiomyopathy and fluctuating LV systolic function measurements. He has normalized, but now LVEF found to be mildly reduced in the current hospitalization while he was acutely sick. He had a collapse in the hospital and found to have pulmonary embolism as well as acute renal insufficiency. He then developed the atrial fibrillation and flutter, which is a new diagnosis for him. He was started on amiodarone just 4 days ago. He seems to be tolerating it better and his vital signs indicate improved ventricular rate control. At this point, I agreed with the current management. I think continued rate control is important. He is on more dose of carvedilol p.r.n., labetalol, and then amiodarone oral taper is in progress. 2. CHADS-VASc score of 2 with hypertension and congestive heart failure, currently not on anticoagulation at a low platelet count, but for the antiphospholipid syndrome. He may need to consider eventually after resolution of the renal hemorrhage. At this point though I would hold anticoagulation. 3. Cardiomyopathy, moderately reduced LVEF optimize heart failure medications per Dr. Jefferson for now. not a candidate for ICD implantation. 4. My plan for this gentleman is continued rate control at this time. Once a clinical improvement occur, we could consider a possible GERARDO guided cardioversion or placing him back on anticoagulation once clinically appropriate and then do a cardioversion after without a GERARDO. For now, he is somewhat limited candidate for ablation therapy. We will follow with you. ALEXANDRA
[2018-02-08 04:31] LABS: Anion Gap 19 mmol/L (10-20); BUN (Urea Nitrogen) 120 mg/dL (8.9-20.6); Calc. Creatinine Clearance 45 mL/min (70-130); Calcium 9.1 mg/dL (7.8-10.44); Carbon Dioxide 21 mmol/L (22-29); Chloride 101 mmol/L (98-107); Estimated GFR-MDRD 17; Glucose 157 mg/dL (70-105); Potassium 4.7 mmol/L (3.5-5.1); Sodium 136 mmol/L (136-145)
[2018-02-08] MEDS: Carvedilol 6.25 MG TAB PO SCH ×2 (05:47→21:15)
--- NOTE | 2018-02-08 08:16 | PRG ---
DATE OF SERVICE: 02/08/2018 SUBJECTIVE: Mr. Boo is a 47-year-old white male who was admitted for an acute abdomen secondar y to a left renal bleed. He underwent embolization of the left kidney due to the persistent bleeding . He also developed acute kidney injury on top of his chronic renal failure. Due to the worsening r enal dysfunction he has been placed on dialysis. He is now placed on maintenance hemodialysis. I am at the bedside supervising his dialysis. No new complaints today. He is noted to be awake. PHYSICAL EXAMINATION: VITAL SIGNS: Blood pressure is 139/93, heart rate 103, respiratory rate 25, temperature 97.6, pulse oximetry 100% on room air. GENERAL: Awake, supine, comfortable, following commands, not in distress. SKIN: Adequate turgor. HEENT: Pinkish conjunctivae. Anicteric sclerae. NECK: No neck mass, no carotid bruits, no JVD. CHEST: No deformities. LUNGS: Clear breath sounds. HEART: Normal sinus rhythm. No murmur, no gallops, no rubs. ABDOMEN: Globular, soft, nontender, no masses. EXTREMITIES: No edema, no deformities. MEDICATIONS: 02/08/2018 - Reviewed. LABORATORY DATA: 02/08/2018 - Sodium 136, potassium 4.7, chloride 101, carbon dioxide 21, BUN 120, c reatinine 3.74, glucose 157, calcium 9.1. 02/07/2018 - White count 14.7, hemoglobin 11.9, hematocrit 37.1. ASSESSMENT AND PLAN: 1. Acute kidney injury/chronic renal failure - continuing 3 times a week hemodialysis. My plan is t o do a 4-hour hemodialysis. Fluid removal as tolerated using no heparin due to the recent renal blee d. The patient is scheduled for placement of a second AV fistula. The first AV fistula was nonfunct ional. Dr. Wagner will do the surgery. 2. Status post left renal bleed - resolved with embolization of the left kidney. Continue supportiv e care. Overall, prognosis remains guarded. Recheck base met and CBC in the a.m.
[2018-02-08] MEDS ORDERED: Heparin 10,000 UNITS/ 10 ML VIAL ONE ×2 (11:00→16:16)
[2018-02-08] MEDS: Losartan 25 MG TAB PO SCH (11:34)
[2018-02-08] MEDS: Amlodipine 10 MG TAB PO SCH (11:35)
[2018-02-08] MEDS: OXcarbazepine 300 MG TAB PO SCH ×2 (11:35→21:16)
[2018-02-08] MEDS: Amiodarone 200 MG TAB PO SCH ×2 (11:35→21:15)
[2018-02-08] MEDS: Timolol 0.5% Ophth Soln 5 ml Bottle EA EYE SCH ×2 (11:37→21:16)
--- NOTE | 2018-02-08 13:09 | PDOC.CTH ---
<Scarlet Pollard - Last Filed: 02/08/18 13:07> Cardiology Progress Note - Subjective The pt seen and examined. No overnight events. No cardiac complaints. Per RN , his BP after BP med @ 1100 was 156/96 @ 1300. - Objective Vital Signs Temp Pulse Resp BP BP BP Pulse Ox 02/08/18 11:37 114 H 192/74 H 02/08/18 11:35 114 H 192/74 H 02/08/18 11:28 105 H 20 192/74 H 98 02/08/18 07:26 97.6 F 103 H 25 H 139/93 H 100 02/08/18 07:15 96 02/08/18 05:47 163/95 H 02/08/18 04:53 99 02/08/18 04:28 97.7 F 101 H 15 167/91 H 99 Admit Weight 285 lb Weight 290 lb 4.8 oz 02/07/18 02/08/18 02/09/18 06:59 06:59 06:59 Intake Total 1691 1514 Output Total 1150 1200 Balance 541 314 - Physical Examination General/Neuro: alert & oriented x3 Neck: no JVD present Lungs: CTA (diminished at bases) Heart: other: (irregular) Abdomen: soft Extremities: other: (no edema) - Telemetry Telemetry Rhythm: AFlutter 90-110s - Labs Result Diagrams: 02/07/18 04:02 02/08/18 03:49 Troponin/CKMB CK-MB (CK-2) 0.5 ng/mL (0-6.6) 01/24/18 04:01 Troponin I 0.127 ng/mL (< 0.028) H 01/26/18 09:12 - Assessment/Plan 1. Afib/Aflutter with RVR - Remains in Aflutter with HR 90-110s. On Amiodarone 400mg PO BID. Requested EP consult. 2. HTN - elevated today since no BP med this AM for NPO for AV fistula placement at 1100. Cont. to monitor 3. Lt perinephric hemorrage with s/p renal embolization with coiling - H&H level have been stable. 4. ELIZABETH on CKD with HD x3 times/wk - managed by assembler faucets; plan for 2nd AV fistula placement today 5. Chronic Systolic HF - stable 6. Antiphospholipid syndrome with Hx of DVT and PE and IVC fluter placement - managed by oncology service 7. Seizure disorder - MAR reviewed Review of Systems - Review of Systems Constitutional: reports: no symptoms reported EENTM: reports: no symptoms reported Respiratory: reports: no symptoms reported Cardiac (ROS): reports: no symptoms reported ABD/GI: reports: no symptoms reported : reports: no symptoms reported Musculoskeletal: reports: no symptoms reported <Wanda Jeffreson - Last Filed: 02/08/18 18:24> Cardiology Progress Note - Objective Vital Signs Temp Pulse Resp BP BP Pulse Ox 02/08/18 11:37 114 H 192/74 H 02/08/18 11:35 114 H 192/74 H 02/08/18 11:28 105 H 20 192/74 H 98 02/08/18 07:26 97.6 F 103 H 25 H 139/93 H 100 02/08/18 07:15 96 Admit Weight 285 lb Weight 290 lb 4.8 oz 02/07/18 02/08/18 02/09/18 06:59 06:59 06:59 Intake Total 1691 1514 Output Total 1150 1200 1625 Balance 541 314 -1625 - Labs Result Diagrams: 02/07/18 04:02 02/08/18 03:49 Troponin/CKMB CK-MB (CK-2) 0.5 ng/mL (0-6.6) 01/24/18 04:01 Troponin I 0.127 ng/mL (< 0.028) H 01/26/18 09:12 - Assessment/Plan Pt. seen and eval. by me. I agree with the A/P by the N/P. Pt. also seen by EP. appreciate the input.At this time pt. returned after dialysis catheter placed.
--- NOTE | 2018-02-08 13:50 | PDOC.CTH ---
Cardiology Progress Note - Subjective EP progress note: Just returned from dialysis. He is tired today. Denies cardiac concerns or complaints. He is largely unchanged from yesterday and feels fair. - Objective Vital Signs Temp Pulse Resp BP BP BP Pulse Ox 02/08/18 11:37 114 H 192/74 H 02/08/18 11:35 114 H 192/74 H 02/08/18 11:28 105 H 20 192/74 H 98 02/08/18 07:26 97.6 F 103 H 25 H 139/93 H 100 02/08/18 07:15 96 02/08/18 05:47 163/95 H 02/08/18 04:53 99 02/08/18 04:28 97.7 F 101 H 15 167/91 H 99 Admit Weight 285 lb Weight 290 lb 4.8 oz 02/07/18 02/08/18 02/09/18 06:59 06:59 06:59 Intake Total 1691 1514 Output Total 1150 1200 Balance 541 314 - Physical Examination General/Neuro: alert & oriented x3, NAD Neck: no JVD present Lungs: CTA, unlabored respirations Heart: other: (irreg irreg) Abdomen: NT/ND, soft - Telemetry Telemetry Rhythm: atrial flutter with occas RVR - Labs Result Diagrams: 02/07/18 04:02 02/08/18 03:49 Troponin/CKMB CK-MB (CK-2) 0.5 ng/mL (0-6.6) 01/24/18 04:01 Troponin I 0.127 ng/mL (< 0.028) H 01/26/18 09:12 - Assessment/Plan 1. Atrial fibrillation and (likely atypical) atrial flutter, new onset. - moderate rate control. Also on Coreg 12.5mg BID - previously on Amiodarone gtt. Now on PO loading 400gm BID 2. A/C congestive heart failure with NICMP - EF 40-45% 3. Acute kidney injury - HD 4. Antiphospholipid syndrome - Hx of DVTs and PEs s/p IVC filter placement 5. Recent perinephric hemorrhage -s/p renal embolization and coiling 6. Medical noncompliance 7. CHADS2-VASC: >2 - thought to be too high risk for anticoagulation at the time due to his recent bleeding issues. Continue rate control with amiodarone loading and coreg. Hold off an OAC for now. Suppressing atrial fibrillation will be his best option for now while OAC is high risk for further bleeding issues. Poor candidate for ablation procedures at this time with his multiple comorbidities and being off OAC.
--- NOTE | 2018-02-08 14:53 | PRG ---
DATE OF SERVICE: 02/08/2018 SUBJECTIVE: Hans Boo was complaining of feeling hot earlier. Also, his was saying cj r that he was not moving his left side, but his left side is moving symmetrical compared to his right side. OBJECTIVE: VITAL SIGNS: He has been afebrile. His heart rate is 105, blood pressure 192/74, respiratory rate i s 20. LUNGS: Remarkable for coarse equal breath sounds. HEART: Regular rhythm. ABDOMEN: Soft and nontender. EXTREMITIES: No clubbing, cyanosis or edema. NEUROLOGIC: He is in no distress. LABORATORY DATA: Sodium 136, potassium 4.7, chloride 101, bicarb 29, BUN 120, creatinine 3.74. IMPRESSION: 1. End-stage renal disease. 2. Status post embolization of the kidney for hemorrhage, on heparin. 3. History of inferior vena cava filter placement. 4. History of craniotomy for seizure disorder. PLAN: Continue supportive care, physical therapy and eventually a long-term acute care placement onc e he has vascular access. He may actually get by with group home care as well, but it is unlike ly he will be able to go home. He did sit up in the chair yesterday and he is encouraged to sit up i n the neuro chair again today, but he is extremely weak.
--- NOTE | 2018-02-08 15:03 | EKG ---
Test Reason : Blood Pressure : / mmHG Vent. Rate : 116 BPM Atrial Rate : 286 BPM P-R Int : 000 ms QRS Dur : 130 ms QT Int : 352 ms P-R-T Axes : 038 023 112 degrees QTc Int : 489 ms Atrial flutter with variable A-V block with premature ventricular or aberrantly conducted complexes Non-specific intra-ventricular conduction block Cannot rule out Inferior infarct (cited on or before 07-JUN-2009) Abnormal ECG When compared with ECG of 03-FEB-2018 17:20, Atrial flutter has replaced Sinus rhythm QRS duration has increased ST no longer elevated in Inferior leads ST now depressed in Lateral leads T wave inversion no longer evident in Inferior leads Confirmed by DR. Bob BROWN ([id number]) on 02/08/2018 3:02:43 PM Referred By: VICENTE Confirmed By:DR. Bob BROWN
[2018-02-08] MEDS ORDERED: Fentanyl 100 MCG/2 ML VIAL ONE ×2 (15:05→15:48)
[2018-02-08] MEDS ORDERED: Bupivacaine HCl 0.5%/Epinephrine 1:200,000/PF 30 ml Vial ONE ×2 (15:31→15:56)
[2018-02-08] MEDS ORDERED: Heparin 5,000 UNITS/ML VIAL ONE (15:56)
[2018-02-08] MEDS ORDERED: Lidocaine 2% PF 5 ML VIAL ONE (15:56)
[2018-02-08] MEDS ORDERED: Protamine Sulfate 50 MG/5 ML VIAL ONE (15:56)
[2018-02-08] MEDS ORDERED: Propofol 500 MG/50 ML VIAL ONE (15:59)
[2018-02-08] MEDS ORDERED: Phenylephrine HCL 10 MG/ML VIAL ONE ×2 (16:04→17:25)
--- NOTE | 2018-02-08 16:10 | PDOC.PN ---
- Subjective Encounter Start Date: 02/08/18 Encounter Start Time: 09:55 follow up for: ARF on CKD resulting in ESRD on HD, APLS, renal hemartoma s/p embolization and infarction of the kidney, physical deconditioning pt complaining of penis feeling like its on fire. Morris still in place No F/C, no N/V/D/C, no CP or SOB All systems reviewed and neg except as above - Objective MAR Reviewed: Yes Vital Signs & Weight: Vital Signs (12 hours) Temp Pulse Resp BP BP BP Pulse Ox 02/08/18 11:37 114 H 192/74 H 02/08/18 11:35 114 H 192/74 H 02/08/18 11:28 105 H 20 192/74 H 98 02/08/18 07:26 97.6 F 103 H 25 H 139/93 H 100 02/08/18 07:15 96 02/08/18 05:47 163/95 H 02/08/18 04:53 99 02/08/18 04:28 97.7 F 101 H 15 167/91 H 99 Weight Admit Weight 285 lb Weight 290 lb 4.8 oz Most Recent Monitor Data Heart Rate from ECG 107 NIBP 144/94 NIBP BP-Mean 110 Respiration from ECG 13 SpO2 95 I&O: 02/07/18 02/08/18 02/09/18 06:59 06:59 06:59 Intake Total 1691 1514 Output Total 1150 1200 1200 Balance 541 314 -1200 Result Diagrams: 02/09/18 04:15 02/11/18 05:37 Phys Exam - Physical Examination Constitutional: NAD chronically ill-appearing, angry HEENT: PERRLA, moist MMs, sclera anicteric, oral pharynx no lesions Neck: no nodes, no JVD, supple, full ROM Respiratory: no wheezing, clear to auscultation bilateral Cardiovascular: RRR, no rub Gastrointestinal: soft, non-tender, no distention, positive bowel sounds Musculoskeletal: edema present Neurological: non-focal, moves all 4 limbs Lymphatic: no nodes Psychiatric: normal affect, A&O x 3 Skin: no rash, normal turgor, cap refill <2 seconds Dx/Plan (1) Acute kidney failure Status: Acute Comment: Due to ATN (2) Anemia due to acute blood loss Code(s): D62 - ACUTE POSTHEMORRHAGIC ANEMIA Status: Resolved Comment: s/p pRBC transfusions (3) Atrial fibrillation Code(s): I48.91 - UNSPECIFIED ATRIAL FIBRILLATION Status: Chronic Qualifiers: Atrial fibrillation type: paroxysmal Qualified Code(s): I48.0 - Paroxysmal atrial fibrillation (4) Coagulation defect Status: Chronic Comment: Antiphospholipid ab. Went off of meds two weeks prior to admission. Hemorrhaged into left kidney. (5) Physical deconditioning Code(s): R53.81 - OTHER MALAISE Status: Chronic (6) Renal hemorrhage, left Code(s): N28.89 - OTHER SPECIFIED DISORDERS OF KIDNEY AND URETER Status: Resolved Comment: s/p embolization (7) Retroperitoneal hemorrhage Code(s): R58 - HEMORRHAGE, NOT ELSEWHERE CLASSIFIED Status: Resolved (8) Antiphospholipid syndrome Code(s): D68.61 - ANTIPHOSPHOLIPID SYNDROME Status: Chronic (9) Chronic systolic congestive heart failure, NYHA class 3 Code(s): I50.22 - CHRONIC SYSTOLIC (CONGESTIVE) HEART FAILURE Status: Chronic (10) Acute respiratory failure Code(s): J96.00 - ACUTE RESPIRATORY FAILURE, UNSP W HYPOXIA OR HYPERCAPNIA Status: Resolved Qualifiers: Respiratory failure complication: hypoxia Qualified Code(s): J96.01 - Acute respiratory failure with hypoxia Comment: Extubated. Pulmonary/CC following. (11) ELIZABETH (acute kidney injury) Code(s): N17.9 - ACUTE KIDNEY FAILURE, UNSPECIFIED Status: Resolved Comment : Cr down to 2.02. hold fluids now. Renal following (12) Abnormal cardiac enzyme level Code(s): R74.8 - ABNORMAL LEVELS OF OTHER SERUM ENZYMES Status: Acute Comment: pt was seen by cardiology in [place] for possible MR repair vs replacement, was not a candidate due to seizure. - Plan cont current plan of care, PT/OT, out of bed/ambulate * . D/C [place], transfer to floor when bed available to OR today for AV fistula creation, continue HD per renal
[2018-02-08] MEDS ORDERED: PHENYLEPHRINE-NS 100 MCG/ML 10 ML SYRINGE ONE ×2 (16:16→17:26)
[2018-02-08] MEDS ORDERED: PROPOFOL 200 MG/20 ML VIAL ONE (16:16)
[2018-02-08] MEDS ORDERED: CEFAZOLIN 2 GM/50 ML BAG ONE (16:18)
[2018-02-08] MEDS ORDERED: Ondansetron HCl/PF 4 MG/2 ML Vial IVP PRN (17:44)
[2018-02-08] MEDS ORDERED: Promethazine HCl 25 MG/ML VIAL SLOW IVP PRN (17:44)
[2018-02-08] MEDS ORDERED: Promethazine HCl 25 MG/ML VIAL IM PRN (17:44)
[2018-02-08] MEDS ORDERED: traMADol HCl 50 MG TAB PO PRN (17:56)
[2018-02-08] MEDS ORDERED: Acetaminophen 500 MG TAB PO PRN (17:56)
[2018-02-08] MEDS: Labetalol HCl 100 MG/20 ML VIAL SLOW IVP PRN (22:07)
--- NOTE | 2018-02-09 01:38 | OP ---
DATE OF PROCEDURE: 01/24/2018 PREOPERATIVE DIAGNOSES: End-stage renal disease, recently embolize left kidney due to hemorrhage, hy percoagulable state, inadequate veins left arm due to iatrogenic access this hospitalization. POSTOPERATIVE DIAGNOSES: End-stage renal disease, recently embolize left kidney due to hemorrhage, h ypercoagulable state, inadequate veins left arm due to iatrogenic access this hospitalization. PROCEDURE: Right arm primary fistula, perforating branch antecubital vein outflow from the proximal radial artery, slowly cephalic vein upper arm calibrated 4 mm coronary dilator. Retrograde antecubit al vein preserved. No communication to basilic vein noted. SURGEON: Dr. Dany Wagner. ANESTHESIA: Regional TIVA, local 0.5% Marcaine with epinephrine, 30 mL mixed with 2% of Xylocaine, 1 0 mL. PROCEDURE IN DETAIL: The patient was taken to the operating room where under intravenous sedation re gional anesthesia, right upper extremity was prepped with ChloraPrep, draped in routine fashion. Inc ision was made longitudinally below the antecubital fossa, carried down skin and subcutaneous tissue. Antecubital vein dissected free and noted to have a good outflow cephalic vein upper arm. Perforat ing branch antecubital vein dissected free. Branches divided between clips and 4-0 silk ties, spatul ated over a branch point and interrogated with coronary dilators, passing coronary dilators from a 2 mm to a 4 mm coronary dilator throughout the outflow cephalic vein upper arm without obstruction. He parinized saline flushed this. Bulldog clamps applied. The patient given 6000 units of heparin intr avenously by Anesthesia and brachial, radial, and proximal radial artery clamped with atraumatic vasc ular clamps. Longitudinal arteriotomy made in the proximal radial artery elongated with Diamond scisso rs and end vein to side proximal radial artery anastomosis created with continuous suture of 6-0 Prol siobhan. Good hemostasis noted. Vascular control released and good Doppler outflow noted on interrogati on of cephalic vein outflow. Good hemostasis obtained with 6-0 Prolene. Patient given protamine 25 mg intravenous by Anesthesia. Good hemostasis noted. Subcutaneous tissues approximated with 3-0 Mon ocryl, skin with subdermal 4-0 Monocryl and DermaGlue applied.
[2018-02-09] MEDS: traMADol HCl 50 MG TAB PO PRN (03:13)
[2018-02-09] MEDS: Sodium Chloride 0.9% 1,000 ML IV SCH (03:18)
[2018-02-09 04:56] LABS: #Lymphocytes 0.3 thou/uL (1.20-3.40); #Monocytes 0.8 thou/uL (0.11-0.59); #Neutrophils 12.9 thou/uL (1.40-6.50); %Lymphocytes 2.4 % (21.0-51.0); %Monocytes 5.4 % (0.0-10.0); %Neutrophils 92.2 % (42.0-75.0); Hemoglobin 11.6 g/dL (14.0-18.0); Mean Corpuscular HGB CONC 31.8 g/dL (32.0-36.0); Mean Corpuscular Hemoglobin 29.2 pg (27.0-31.0); Mean Corpuscular Volume 91.6 fL (78.0-98.0); Mean Platelet Volume 11.3 fL (7.4-10.4); Platelet Count 46 thou/uL (130-400); RBC Distribution Width 14.8 % (11.5-14.5); Red Blood Cell (RBC) Count 3.97 mill/uL (4.70-6.10)
[2018-02-09 05:14] LABS: Anion Gap 16 mmol/L (10-20); BUN (Urea Nitrogen) 79 mg/dL (8.9-20.6); Calc. Creatinine Clearance 59 mL/min (70-130); Calcium 8.8 mg/dL (7.8-10.44); Carbon Dioxide 24 mmol/L (22-29); Chloride 102 mmol/L (98-107); Estimated GFR-MDRD 24; Glucose 180 mg/dL (70-105); Potassium 4.7 mmol/L (3.5-5.1); Sodium 137 mmol/L (136-145)
[2018-02-09] MEDS: Labetalol HCl 100 MG/20 ML VIAL SLOW IVP PRN (05:30)
[2018-02-09] MEDS: Amlodipine 10 MG TAB PO SCH (09:05)
[2018-02-09] MEDS: Amiodarone 200 MG TAB PO SCH ×2 (09:05→21:26)
[2018-02-09] MEDS: Carvedilol 25 MG TAB PO SCH ×2 (09:05→17:47)
[2018-02-09] MEDS: Losartan 25 MG TAB PO SCH (09:06)
[2018-02-09] MEDS: OXcarbazepine 300 MG TAB PO SCH ×2 (09:07→21:28)
[2018-02-09] MEDS: Timolol 0.5% Ophth Soln 5 ml Bottle EA EYE SCH ×2 (09:07→21:29)
--- NOTE | 2018-02-09 09:50 | PRG ---
DATE OF SERVICE: 02/09/2018 SUBJECTIVE: Mr. Boo is a 47-year-old white man who is being followed by the Renal Service for his maintenance hemodialysis. He developed acute kidney injury on top of his chronic renal failure. Due to the progressive azotemia and volume overload he was initiated on dialysis. He is now receivi ng 3 times a week hemodialysis. No evidence of renal recovery. He has also been having labile hypertension in the past. Initially he was admitted for abdominal pain secondary to a left perinephric bleed which he underwent successful embolization. No other complaints today, no chest pain or shortness of breath. PHYSICAL EXAMINATION: VITAL SIGNS: Blood pressure is 180/87, heart rate 101, respiratory rate 18, temperature 97.9, pulse ox 100%. GENERAL: Noted to be awake, alert, comfortable, not in overt distress. SKIN: Adequate turgor. HEENT: He has pinkish conjunctivae, anicteric sclerae. NECK: No neck mass, no carotid bruits, no JVD. CHEST: No deformities. LUNGS: Decreased breath sounds. HEART: Normal sinus rhythm. No murmur, no gallops, no rubs. ABDOMEN: Globular, soft, nontender, no masses. EXTREMITIES: Positive for edema. MEDICATIONS: 02/09/2018 - Reviewed. LABORATORY DATA: 02/09/2018 - White count 14, hemoglobin 11.6. Sodium 137, potassium 4.7, chloride 102, carbon dioxide 24, BUN 79, creatinine 2.88, glucose 180, calcium 8.8. ASSESSMENT AND PLAN: 1. Acute kidney injury/chronic renal failure, continuing 3 times a week hemodialysis. I am dialyzin g him at 4 hours each treatment. No evidence of renal recovery. Continue supportive care. 2. Hypertension, currently on amlodipine, Coreg and losartan. If the blood pressure is still poorly controlled, consider adding hydralazine 25 mg tab t.i.d. 3. Status post left renal bleed - much improved with embolization. No evidence of any recurrent billy al bleed. Overall, prognosis remains guarded.
--- NOTE | 2018-02-09 12:45 | PRG ---
DATE OF SERVICE: 02/09/2018 Mr. Boo is doing well. His only complaint is insomnia. LABORATORY DATA: White count is 14, hemoglobin 11.6, platelets 46,000. Sodium 137, potassium 4.7, chloride 102, bicarbonate 24, BUN 79, creatinine 2.88. He had dialysis yesterday. He had dialysis access placed in his right upper extremity. PHYSICAL EXAMINATION: LUNGS: Clear. CARDIOVASCULAR: Regular rhythm. ABDOMEN: Soft, nontender. IMPRESSION: 1. Status post massive subcapsular renal hemorrhage requiring embolization. 2. Status post mechanical ventilation with deconditioning. He is spending more time out of bed. He is slowly improving. He will obviously need to go to a [facility] led nursing facility before he gets discharged home.
[2018-02-09] MEDS: hydrALAZINE 25 MG TAB PO SCH ×2 (14:58→21:27)
--- NOTE | 2018-02-09 16:20 | PDOC.CTH ---
Cardiology Progress Note - Subjective EP progress note: Patient seen and evaluated. No new cardiac concerns or complaints today. Denies heart racing, palpitations, chest pain/pressure, dizziness, or passing out. No stroke like symptoms + weakness, fatigue - Objective Vital Signs Temp Pulse Resp BP BP BP Pulse Ox 02/09/18 14:58 106 H 148/79 H 02/09/18 12:00 97.5 F L 83 18 135/68 97 02/09/18 09:07 101 H 180/87 H 02/09/18 09:05 110 H 180/87 H 02/09/18 08:09 97.9 F 101 H 18 153/97 H 100 02/09/18 08:00 100 02/09/18 05:30 106 H 172/91 H 02/09/18 04:31 97.6 F 106 H 16 154/92 H 98 Admit Weight 285 lb Weight 291 lb 0.163 oz 02/08/18 02/09/18 02/10/18 06:59 06:59 06:59 Intake Total 1514 490 Output Total 1200 3700 Balance 314 -3210 - Physical Examination General/Neuro: alert & oriented x3, NAD Neck: no JVD present Lungs: unlabored respirations Abdomen: NT/ND, soft - Telemetry Telemetry Rhythm: AF - Labs Result Diagrams: 02/09/18 04:15 02/09/18 04:15 Troponin/CKMB CK-MB (CK-2) 0.5 ng/mL (0-6.6) 01/24/18 04:01 Troponin I 0.127 ng/mL (< 0.028) H 01/26/18 09:12 - Assessment/Plan 1. Atrial fibrillation and (likely atypical) atrial flutter, new onset. - moderate rate control. Also on Coreg 12.5mg BID - previously on Amiodarone gtt. Now on PO loading 400gm BID 2. A/C congestive heart failure with NICMP - EF 40-45% 3. Acute kidney injury - HD 4. Antiphospholipid syndrome - Hx of DVTs and PEs s/p IVC filter placement 5. Perinephric hemorrhage -s/p renal embolization and coiling. No evidence of recurrent bleeding. 6. Medical noncompliance 7. CHADS2-VASC: >2 - thought to be too high risk for anticoagulation at the time due to his recent bleeding issues. Continue same EP plan: rate control with amiodarone loading and coreg. Hold off an OAC for now but want to resume this as soon as possible. Suppressing atrial fibrillation will be his best option for now while OAC is high risk for further bleeding issues. Poor candidate for ablation procedures at this time with his multiple comorbidities and being off OAC.
[2018-02-09] MEDS ORDERED: READ PPD TEST SITE PO SCH (20:00)
[2018-02-09] MEDS: Melatonin 3 MG TAB PO PRN (21:29)
[2018-02-10 05:03] LABS: Anion Gap 15 mmol/L (10-20); BUN (Urea Nitrogen) 105 mg/dL (8.9-20.6); Calc. Creatinine Clearance 50 mL/min (70-130); Calcium 8.9 mg/dL (7.8-10.44); Carbon Dioxide 24 mmol/L (22-29); Chloride 104 mmol/L (98-107); Estimated GFR-MDRD 19; Glucose 150 mg/dL (70-105); Potassium 4.9 mmol/L (3.5-5.1); Sodium 138 mmol/L (136-145)
[2018-02-10] MEDS: Sodium Chloride 0.9% 1,000 ML IV SCH ×2 (05:42→16:48)
[2018-02-10] MEDS: Carvedilol 25 MG TAB PO SCH ×2 (07:52→16:10)
--- NOTE | 2018-02-10 08:36 | PRG ---
DATE OF SERVICE: 02/10/2018 Hans Kemp is doing well today. He has a good thrill and bruit in his right arm fistula. I can p alpate his cephalic vein outflow tract to be patent in his right upper extremity throughout the lengt h of the upper arm. At this point, I have advised him to exercise this arm. He should see me in my office in 4-6 weeks. At this point, I will see him as needed this hospitalization. Please call if jose titus.
--- NOTE | 2018-02-10 08:53 | PDOC.CTH ---
<Scarlet Pollard - Last Filed: 02/10/18 08:54> Cardiology Progress Note - Subjective The pt seen and examined. No overnight events. No cardiac complaints. Good thrill and bruit to Rt AV fistula. - Objective Vital Signs Temp Pulse Resp BP BP Pulse Ox 02/10/18 08:00 100 02/10/18 07:31 97.7 F 119 H 20 156/119 H 100 02/10/18 04:00 97.3 F L 101 H 18 151/103 H 100 02/09/18 23:41 97.5 F L 106 H 16 128/82 97 02/09/18 21:29 107 H 131/89 02/09/18 21:27 107 H 131/89 02/09/18 20:56 100 Admit Weight 285 lb Weight 292 lb 5.327 oz 02/09/18 02/10/18 02/11/18 06:59 06:59 06:59 Intake Total 490 1467 Output Total 3700 1150 Balance -3210 317 - Physical Examination General/Neuro: alert & oriented x3 Neck: no JVD present Lungs: CTA Heart: other: (irregular) Abdomen: soft Extremities: other: (1+ pitting BLE edema) - Telemetry Telemetry Rhythm: Afib 100-120s - Labs Result Diagrams: 02/09/18 04:15 02/10/18 04:35 Troponin/CKMB CK-MB (CK-2) 0.5 ng/mL (0-6.6) 01/24/18 04:01 Troponin I 0.127 ng/mL (< 0.028) H 01/26/18 09:12 - Assessment/Plan 1. Afib/Aflutter with RVR - Remains in Afib/Aflutter with HR 100-120s. On Amiodarone 400mg PO BID and Coreg 25mg BID. CHADS2-VASC: >2, but not on OAC due to s/p Lt perinephric hemorrage. EP consult. 2. HTN - has been 150-160s. cont. to monitor 3. Lt perinephric hemorrage with s/p renal embolization with coiling - H&H level have been stable. 4. ELIZABETH on CKD with HD x3 times/wk - managed by semi driver; 2nd AV fistula placement to RUE. 5. Chronic Systolic HF - stable; On Bblocker and on HD; not on DAVID/ARB due to hx of CKD 6. Antiphospholipid syndrome with Hx of DVT and PE and IVC fluter placement - managed by oncology service 7. Seizure disorder - MAR reviewed Review of Systems - Review of Systems Constitutional: reports: weakness EENTM: reports: no symptoms reported Respiratory: reports: no symptoms reported Cardiac (ROS): reports: no symptoms reported ABD/GI: reports: no symptoms reported : reports: no symptoms reported Musculoskeletal: reports: no symptoms reported <Wanda Jefferson - Last Filed: 02/10/18 17:23> Cardiology Progress Note - Objective Vital Signs Temp Pulse Pulse Pulse Pulse Resp BP 02/10/18 16:10 53 L 159/72 H 02/10/18 15:44 02/10/18 15:43 97.6 F 53 L 16 02/10/18 09:16 119 H 126/102 H 02/10/18 09:15 119 H 112 H 103 H 113 H 126/102 H 02/10/18 08:00 02/10/18 07:31 97.7 F 119 H 20 BP BP BP BP BP Pulse Ox Pulse Ox 02/10/18 16:10 02/10/18 15:44 93 L 02/10/18 15:43 159/71 H 93 L 02/10/18 09:16 02/10/18 09:15 189/124 H 143/100 H 151/93 H 100 02/10/18 08:00 100 02/10/18 07:31 156/119 H 100 Pulse Ox Pulse Ox 02/10/18 16:10 02/10/18 15:44 02/10/18 15:43 02/10/18 09:16 02/10/18 09:15 99 97 02/10/18 08:00 02/10/18 07:31 Admit Weight 285 lb Weight 292 lb 5.327 oz 02/09/18 02/10/18 02/11/18 06:59 06:59 06:59 Intake Total 490 1467 240 Output Total 3700 1150 Balance -3210 317 240 - Labs Result Diagrams: 02/09/18 04:15 02/10/18 04:35 Troponin/CKMB CK-MB (CK-2) 0.5 ng/mL (0-6.6) 01/24/18 04:01 Troponin I 0.127 ng/mL (< 0.028) H 01/26/18 09:12 - Assessment/Plan Pt. seen and eval. by me. I agree with the A/P by the E COMMERCE RETAILER and EP.Continue present medical treatment.
[2018-02-10] MEDS: Amiodarone 200 MG TAB PO SCH ×2 (09:14→21:52)
[2018-02-10] MEDS: Amlodipine 10 MG TAB PO SCH (09:15)
[2018-02-10] MEDS: Losartan 25 MG TAB PO SCH (09:15)
[2018-02-10] MEDS: hydrALAZINE 25 MG TAB PO SCH ×3 (09:15→21:53)
[2018-02-10] MEDS: Timolol 0.5% Ophth Soln 5 ml Bottle EA EYE SCH ×2 (09:16→21:50)
[2018-02-10] MEDS: OXcarbazepine 300 MG TAB PO SCH ×2 (09:16→21:51)
--- NOTE | 2018-02-10 09:38 | PRG ---
DATE OF SERVICE: 02/10/2018 SUBJECTIVE: Mr. Boo is a 47-year-old white male who was admitted for abdominal pain with subse quent findings of a left renal perinephric hematoma, underwent a left renal artery embolization. He also had worsening renal dysfunction and congestive heart failure. For that reason he has been initi ated on dialysis. He is now scheduled for 3 times a week dialysis. Fluid removal as tolerated. He has also labile hypertension. No new complaints today. Denies any chest pain or shortness of breath . OBJECTIVE: VITAL SIGNS: Blood pressure is 126/102, heart rate 119. GENERAL: Awake, alert, comfortable, not in overt distress. SKIN: Adequate turgor. HEENT: He has pinkish conjunctivae, anicteric sclerae. NECK: No neck mass, no carotid bruits, no JVD. CHEST: No deformities. LUNGS: Clear breath sounds. No wheezing, no crackles. HEART: Normal sinus rhythm. No murmur, gallops. No rubs. ABDOMEN: Globular, soft, nontender, no masses. EXTREMITIES: No edema, no deformities. Right AV fistula, positive for bruit. MEDICATIONS: 02/10/2018 - Reviewed. LABORATORY: 02/10/2018 - Sodium 138, potassium 4.9, chloride 104, carbon dioxide 24, BUN 105, creati nine 3.41, glucose 150, calcium 8.9. ASSESSMENT AND PLAN: 1. Acute kidney injury/chronic renal failure, currently on maintenance hemodialysis, currently sched uled for a 4-hour dialysis. Fluid removal only as tolerated. No evidence of renal recovery. 2. L abile hypertension. Continue current blood pressure meds. Adjust blood pressure medications as need ed. 3. Status post renal bleed - left - status post embolization of left renal artery. No evidence of a ctive bleeding. Continue supportive care.
[2018-02-10] MEDS ORDERED: Heparin 10,000 UNITS/ 10 ML VIAL ONE (12:00)
--- NOTE | 2018-02-10 15:04 | PDOC.CTH ---
Cardiology Progress Note - Subjective EP progress note: Patient seen and evaluated. No new cardiac concerns or complaints today. Denies heart racing, palpitations, chest pain/pressure, dizziness, or passing out. No stroke like symptoms. - Objective Vital Signs Temp Pulse Pulse Pulse Pulse Resp BP 02/10/18 09:16 119 H 126/102 H 02/10/18 09:15 119 H 112 H 103 H 113 H 126/102 H 02/10/18 08:00 02/10/18 07:31 97.7 F 119 H 20 02/10/18 04:00 97.3 F L 101 H 18 BP BP BP BP Pulse Ox Pulse Ox Pulse Ox 02/10/18 09:16 02/10/18 09:15 189/124 H 143/100 H 151/93 H 100 99 02/10/18 08:00 100 02/10/18 07:31 156/119 H 100 02/10/18 04:00 151/103 H 100 Pulse Ox 02/10/18 09:16 02/10/18 09:15 97 02/10/18 08:00 02/10/18 07:31 02/10/18 04:00 Admit Weight 285 lb Weight 292 lb 5.327 oz 02/09/18 02/10/18 02/11/18 06:59 06:59 06:59 Intake Total 490 1467 240 Output Total 3700 1150 Balance -3210 317 240 - Physical Examination General/Neuro: alert & oriented x3, NAD Neck: no JVD present Lungs: unlabored respirations Heart: PMI normal Abdomen: NT/ND, soft - Telemetry Telemetry Rhythm: AF 100-115 - Labs Result Diagrams: 02/09/18 04:15 02/10/18 04:35 Troponin/CKMB CK-MB (CK-2) 0.5 ng/mL (0-6.6) 01/24/18 04:01 Troponin I 0.127 ng/mL (< 0.028) H 01/26/18 09:12 - Assessment/Plan 1. Atrial fibrillation and (likely atypical) atrial flutter, new onset. - moderate rate control. Also on Coreg 12.5mg BID - previously on Amiodarone gtt. Now on PO loading 400gm BID 2. A/C congestive heart failure with NICMP - EF 40-45% 3. Acute on chronic renal failure - requiring HD after coiling & hemorrhage. 4. Antiphospholipid syndrome - Hx of DVTs and PEs s/p IVC filter placement 5. Spontaneous left renal hemorrhage -s/p left renal artery embolization/coiling. No evidence of recurrent bleeding. -etiology unknown 6. Medical noncompliance 7. CHADS2-VASC: >2 - thought to be too high risk for anticoagulation at the time due to his recent spontaneous renal hemorrhage but will require OAC for his numerous coagulation issues. Continue same EP plan: rate control with amiodarone loading and coreg. Hold off an OAC for now but want to resume this as soon as possible. Suppressing atrial fibrillation will be his best option for now while OAC is high risk for further bleeding issues. Poor candidate for ablation procedures at this time with his multiple comorbidities and being off OAC.
[2018-02-10] MEDS ORDERED: READ PPD TEST SITE PO SCH (20:00)
[2018-02-10] MEDS: Melatonin 3 MG TAB PO PRN (21:53)
[2018-02-11] MEDS: Labetalol HCl 100 MG/20 ML VIAL SLOW IVP PRN (05:31)
[2018-02-11 06:21] LABS: Anion Gap 15 mmol/L (10-20); BUN (Urea Nitrogen) 63 mg/dL (8.9-20.6); Calc. Creatinine Clearance 61 mL/min (70-130); Calcium 8.6 mg/dL (7.8-10.44); Carbon Dioxide 24 mmol/L (22-29); Chloride 100 mmol/L (98-107); Estimated GFR-MDRD 25; Glucose 127 mg/dL (70-105); Potassium 4.4 mmol/L (3.5-5.1); Sodium 135 mmol/L (136-145)
[2018-02-11] MEDS: Losartan 25 MG TAB PO SCH (10:16)
[2018-02-11] MEDS: Amlodipine 10 MG TAB PO SCH (10:16)
[2018-02-11] MEDS: hydrALAZINE 25 MG TAB PO SCH ×3 (10:17→20:34)
[2018-02-11] MEDS: Amiodarone 200 MG TAB PO SCH ×2 (10:17→20:34)
[2018-02-11] MEDS: Carvedilol 25 MG TAB PO SCH ×2 (10:18→18:04)
--- NOTE | 2018-02-11 11:02 | PDOC.CTH ---
<Scarlet Pollard - Last Filed: 02/11/18 11:02> Cardiology Progress Note - Subjective The pt seen and examined. No overnight events. No cardiac complaints. He is more alerted today. - Objective Vital Signs Temp Pulse Pulse Pulse Resp BP BP 02/11/18 10:17 96 02/11/18 10:16 96 02/11/18 09:20 133 H 131 H 02/11/18 07:58 96.9 F L 96 16 181/101 H 02/11/18 05:31 105 H 162/88 H 02/11/18 04:00 96.6 F L 101 H 18 161/87 H 02/11/18 02:43 02/11/18 00:00 97.8 F 101 H 19 151/85 H Pulse Ox 02/11/18 10:17 02/11/18 10:16 02/11/18 09:20 02/11/18 07:58 100 02/11/18 05:31 02/11/18 04:00 99 02/11/18 02:43 99 02/11/18 00:00 99 Admit Weight 285 lb Weight 281 lb 12.8 oz 02/10/18 02/11/18 02/12/18 06:59 06:59 06:59 Intake Total 1467 808 Output Total 1150 3200 Balance 317 -2392 - Physical Examination General/Neuro: alert & oriented x3 Neck: no JVD present Lungs: CTA Heart: other: (irregular) Abdomen: soft Extremities: other: (1+ pitting BLE edema) - Telemetry Telemetry Rhythm: AFib/Aflutter 80-100s - Labs Result Diagrams: 02/09/18 04:15 02/11/18 05:37 Troponin/CKMB CK-MB (CK-2) 0.5 ng/mL (0-6.6) 01/24/18 04:01 Troponin I 0.127 ng/mL (< 0.028) H 01/26/18 09:12 - Assessment/Plan 1. Afib/Aflutter with RVR - Remains in Afib/Aflutter with HR 100-120s. On Amiodarone 400mg PO BID and Coreg 25mg BID. CHADS2-VASC: >2, but not on OAC due to s/p Lt perinephric hemorrage and multiple comorbidities. Appreciate EP consult. 2. HTN - has been 150-160s. cont. to monitor 3. Lt perinephric hemorrage with s/p renal embolization with coiling - H&H level have been stable. 4. ELIZABETH on CKD with HD x3 times/wk - managed by underwriter solicitation director; 2nd AV fistula placement to RUE. 5. Chronic Systolic HF - stable; On Bblocker and on HD; not on DAVID/ARB due to hx of CKD 6. Antiphospholipid syndrome with Hx of DVT and PE and IVC fluter placement - managed by oncology service 7. Seizure disorder - MAR reviewed Review of Systems - Review of Systems Constitutional: reports: weakness EENTM: reports: no symptoms reported Respiratory: reports: no symptoms reported Cardiac (ROS): reports: no symptoms reported ABD/GI: reports: no symptoms reported : reports: no symptoms reported Musculoskeletal: reports: no symptoms reported Skin: reports: no symptoms reported <Wanda Jefferson - Last Filed: 02/11/18 13:34> Cardiology Progress Note - Objective Vital Signs Temp Pulse Pulse Pulse Resp BP BP 02/11/18 12:00 97.6 F 97 16 134/78 02/11/18 10:17 96 02/11/18 10:16 96 02/11/18 09:20 133 H 131 H 02/11/18 08:20 02/11/18 07:58 96.9 F L 96 16 181/101 H 02/11/18 05:31 105 H 162/88 H 02/11/18 04:00 96.6 F L 101 H 18 161/87 H 02/11/18 02:43 Pulse Ox 02/11/18 12:00 96 02/11/18 10:17 02/11/18 10:16 02/11/18 09:20 02/11/18 08:20 100 02/11/18 07:58 100 02/11/18 05:31 02/11/18 04:00 99 02/11/18 02:43 99 Admit Weight 285 lb Weight 281 lb 12.8 oz 02/10/18 02/11/18 02/12/18 06:59 06:59 06:59 Intake Total 1467 808 Output Total 1150 3200 Balance 317 -1987 - Labs Result Diagrams: 02/09/18 04:15 02/11/18 05:37 Troponin/CKMB CK-MB (CK-2) 0.5 ng/mL (0-6.6) 01/24/18 04:01 Troponin I 0.127 ng/mL (< 0.028) H 01/26/18 09:12 - Assessment/Plan Pt. seen and eval. by me. I agree with the A/P by the HEALTH INSURANCE AGENT and the EP product development consultant No new changes. This is a difficult situation with the recent bleed. In view of his coagulopathy he is at risk of DVT,PE despite IVC filter that was placed in the past. Now with an even further increased risk of CVA due to the atrial fibrillation. he has multiple medical problems. I will continue to follow.
--- NOTE | 2018-02-11 11:10 | PRG ---
DATE OF SERVICE: 02/11/2018 SUBJECTIVE: Mr. Boo has no complaints. He is still very weak. He says he did not get up in a chair yesterday. OBJECTIVE: VITAL SIGNS: He is afebrile, heart rate is 96, blood pressure 162/88, respiratory rate 16, oximetry is 100%. LUNGS: Clear. HEART: Regular rhythm. ABDOMEN: Soft. LABORATORY DATA: White count 14, hemoglobin 11.6 when last checked on the . His electrolytes, s odium 135, potassium 4.4, chloride 100, bicarbonate 24, BUN 63, creatinine 2.7. IMPRESSION: 1. Status post admission for abdominal pain with subsequent anticoagulation and a subcapsular renal hemorrhage, requiring embolization. 2. Acute on chronic kidney disease now, probably with end-stage renal disease, status post access pr ocedure on his right upper extremity and a tunnel catheter. 3. Respiratory failure (he was intubated prophylactically because of his massive blood loss). 4. Deconditioning. 5. Encephalopathy that is improving. 6. History of a craniotomy for a seizure disorder, which left him a little slower than he was prior to his surgery. 7. Atrial fibrillation, being followed by Electrophysiology. 8. History of antiphospholipid antibody with an inferior vena cava filter in place. At some time in the near future, we might place him back on prophylactic dose anticoagulants, but I w ould not fully anticoagulate him at this time. I would like to see him up in a chair at least twice a day. He will eventually need placement.
--- NOTE | 2018-02-11 11:51 | PDOC.PN ---
- Subjective Encounter Start Date: 02/10/18 Encounter Start Time: 14:30 follow up for: ARF on CKD resulting in ESRd on HD, APLS, renal hematoma s/p embolization and infarction of the kidney, physical deconditioning No F/C, no N/V/D/C, no CP or SOB less burning in the genital area. malika suirgery well, no All systems reviewed and neg except as above - Objective MAR Reviewed: Yes Vital Signs & Weight: Vital Signs (12 hours) Temp Pulse Pulse Pulse Resp BP BP 02/11/18 10:17 96 02/11/18 10:16 96 02/11/18 09:20 133 H 131 H 02/11/18 07:58 96.9 F L 96 16 181/101 H 02/11/18 05:31 105 H 162/88 H 02/11/18 04:00 96.6 F L 101 H 18 161/87 H 02/11/18 02:43 02/11/18 00:00 97.8 F 101 H 19 151/85 H Pulse Ox 02/11/18 10:17 02/11/18 10:16 02/11/18 09:20 02/11/18 07:58 100 02/11/18 05:31 02/11/18 04:00 99 02/11/18 02:43 99 02/11/18 00:00 99 Weight Admit Weight 285 lb Weight 281 lb 12.8 oz Most Recent Monitor Data Heart Rate from ECG 107 NIBP 144/94 NIBP BP-Mean 110 Respiration from ECG 13 SpO2 95 I&O: 02/10/18 02/11/18 02/12/18 06:59 06:59 06:59 Intake Total 1467 808 Output Total 1150 3200 Balance 317 -2392 Result Diagrams: 02/09/18 04:15 02/11/18 05:37 Phys Exam - Physical Examination Constitutional: NAD HEENT: PERRLA, moist MMs, sclera anicteric, oral pharynx no lesions Neck: no nodes, no JVD, supple, full ROM Respiratory: no wheezing, no rales, no rhonchi, clear to auscultation bilateral Cardiovascular: RRR, no significant murmur, no rub Gastrointestinal: soft, no distention, positive bowel sounds Musculoskeletal: edema present Neurological: non-focal, normal sensation, moves all 4 limbs Lymphatic: no nodes Psychiatric: normal affect, A&O x 3 Skin: no rash, normal turgor, cap refill <2 seconds Dx/Plan (1) Acute kidney failure Status: Acute Comment: Due to ATN (2) Anemia due to acute blood loss Code(s): D62 - ACUTE POSTHEMORRHAGIC ANEMIA Status: Resolved Comment: s/p pRBC transfusions (3) Atrial fibrillation Code(s): I48.91 - UNSPECIFIED ATRIAL FIBRILLATION Status: Chronic Qualifiers: Atrial fibrillation type: paroxysmal Qualified Code(s): I48.0 - Paroxysmal atrial fibrillation (4) Coagulation defect Status: Chronic Comment: Antiphospholipid ab. Went off of meds two weeks prior to admission. Hemorrhaged into left kidney. (5) Physical deconditioning Code(s): R53.81 - OTHER MALAISE Status: Chronic (6) Renal hemorrhage, left Code(s): N28.89 - OTHER SPECIFIED DISORDERS OF KIDNEY AND URETER Status: Resolved Comment: s/p embolization (7) Retroperitoneal hemorrhage Code(s): R58 - HEMORRHAGE, NOT ELSEWHERE CLASSIFIED Status: Resolved (8) Antiphospholipid syndrome Code(s): D68.61 - ANTIPHOSPHOLIPID SYNDROME Status: Chronic (9) Chronic systolic congestive heart failure, NYHA class 3 Code(s): I50.22 - CHRONIC SYSTOLIC (CONGESTIVE) HEART FAILURE Status: Chronic (10) Acute respiratory failure Code(s): J96.00 - ACUTE RESPIRATORY FAILURE, UNSP W HYPOXIA OR HYPERCAPNIA Status: Resolved Qualifiers: Respiratory failure complication: hypoxia Qualified Code(s): J96.01 - Acute respiratory failure with hypoxia Comment: Extubated. Pulmonary/CC following. (11) ELIZABETH (acute kidney injury) Code(s): N17.9 - ACUTE KIDNEY FAILURE, UNSPECIFIED Status: Resolved Comment : Cr down to 2.02. hold fluids now. Renal following (12) Abnormal cardiac enzyme level Code(s): R74.8 - ABNORMAL LEVELS OF OTHER SERUM ENZYMES Status: Acute Comment: pt was seen by cardiology in [place] for possible MR repair vs replacement, was not a candidate due to seizure. - Plan cont current plan of care, plan discussed w/ family, PT/OT, social insurance administrator, respiratory therapy * . transfer to floor when bed available, set up for rehab HD per renal
--- NOTE | 2018-02-11 11:52 | PDOC.CTH ---
Cardiology Progress Note - Subjective EP Progress note: Patient has moved to medical floor. Remains weak. no new cardiac concerns or complaints. has not been out of bed - Objective Vital Signs Temp Pulse Pulse Pulse Resp BP BP 02/11/18 10:17 96 02/11/18 10:16 96 02/11/18 09:20 133 H 131 H 02/11/18 07:58 96.9 F L 96 16 181/101 H 02/11/18 05:31 105 H 162/88 H 02/11/18 04:00 96.6 F L 101 H 18 161/87 H 02/11/18 02:43 02/11/18 00:00 97.8 F 101 H 19 151/85 H Pulse Ox 02/11/18 10:17 02/11/18 10:16 02/11/18 09:20 02/11/18 07:58 100 02/11/18 05:31 02/11/18 04:00 99 02/11/18 02:43 99 02/11/18 00:00 99 Admit Weight 285 lb Weight 281 lb 12.8 oz 02/10/18 02/11/18 02/12/18 06:59 06:59 06:59 Intake Total 1467 808 Output Total 1150 3200 Balance 317 -2392 - Physical Examination General/Neuro: alert & oriented x3, NAD Neck: carotid US brisk, no JVD present Lungs: CTA, unlabored respirations Heart: PMI normal, other: (irreg irreg, rapid) Abdomen: NT/ND, soft - Telemetry Telemetry Rhythm: A flutter with RVR 110-125 - Labs Result Diagrams: 02/09/18 04:15 02/11/18 05:37 Troponin/CKMB CK-MB (CK-2) 0.5 ng/mL (0-6.6) 01/24/18 04:01 Troponin I 0.127 ng/mL (< 0.028) H 01/26/18 09:12 - Assessment/Plan 1. Atrial fibrillation and (likely atypical) atrial flutter, new onset. - moderate rate control. Also on Coreg 12.5mg BID - On amidoarone PO loading 400gm BID 2. A/C congestive heart failure with NICMP - EF 40-45% 3. Acute on chronic renal failure - requiring HD after coiling & hemorrhage. 4. Antiphospholipid syndrome - Hx of DVTs and PEs s/p IVC filter placement 5. Spontaneous left renal hemorrhage -s/p left renal artery embolization/coiling. No evidence of recurrent bleeding. -etiology unknown 6. Medical noncompliance 7. CHADS2-VASC: >2 - thought to be too high risk for anticoagulation at the time due to his recent spontaneous renal hemorrhage but recommend OAC for his numerous coagulation issues. Continue same EP plan: rate control with amiodarone loading and coreg. Suppressing atrial fibrillation will be his best option for now while OAC is high risk for further bleeding issues. Poor candidate for cardioversion or ablation procedures at this time with his multiple comorbidities and being off OAC. Signing off. Call if further EP input is desired.
--- NOTE | 2018-02-11 11:54 | PDOC.PN ---
- Subjective Encounter Start Date: 02/11/18 Encounter Start Time: 08:55 looks much more awake and alert and happy, no F/C, no N/V/D/C, no CP or sOB all systems reviewed and neg x as above awaiting approval and bed at rehab - Objective MAR Reviewed: Yes Vital Signs & Weight: Vital Signs (12 hours) Temp Pulse Pulse Pulse Resp BP BP 02/11/18 10:17 96 02/11/18 10:16 96 02/11/18 09:20 133 H 131 H 02/11/18 07:58 96.9 F L 96 16 181/101 H 02/11/18 05:31 105 H 162/88 H 02/11/18 04:00 96.6 F L 101 H 18 161/87 H 02/11/18 02:43 02/11/18 00:00 97.8 F 101 H 19 151/85 H Pulse Ox 02/11/18 10:17 02/11/18 10:16 02/11/18 09:20 02/11/18 07:58 100 02/11/18 05:31 02/11/18 04:00 99 02/11/18 02:43 99 02/11/18 00:00 99 Weight Admit Weight 285 lb Weight 281 lb 12.8 oz Most Recent Monitor Data Heart Rate from ECG 107 NIBP 144/94 NIBP BP-Mean 110 Respiration from ECG 13 SpO2 95 I&O: 02/10/18 02/11/18 02/12/18 06:59 06:59 06:59 Intake Total 1467 808 Output Total 1150 3200 Balance 317 -2392 Result Diagrams: 02/09/18 04:15 02/11/18 05:37 Phys Exam - Physical Examination Constitutional: NAD HEENT: PERRLA, moist MMs, sclera anicteric, oral pharynx no lesions Neck: no nodes, no JVD, supple, full ROM Respiratory: no wheezing, clear to auscultation bilateral Cardiovascular: RRR, no significant murmur, no rub Gastrointestinal: soft, non-tender, no distention, positive bowel sounds Musculoskeletal: edema present Neurological: non-focal, normal sensation, moves all 4 limbs Lymphatic: no nodes Psychiatric: normal affect, A&O x 3 Skin: no rash, normal turgor, cap refill <2 seconds Dx/Plan (1) Acute kidney failure Status: Acute Comment: Due to ATN (2) Anemia due to acute blood loss Code(s): D62 - ACUTE POSTHEMORRHAGIC ANEMIA Status: Resolved Comment: s/p pRBC transfusions (3) Atrial fibrillation Code(s): I48.91 - UNSPECIFIED ATRIAL FIBRILLATION Status: Chronic Qualifiers: Atrial fibrillation type: paroxysmal Qualified Code(s): I48.0 - Paroxysmal atrial fibrillation (4) Coagulation defect Status: Chronic Comment: Antiphospholipid ab. Went off of meds two weeks prior to admission. Hemorrhaged into left kidney. (5) Physical deconditioning Code(s): R53.81 - OTHER MALAISE Status: Chronic (6) Renal hemorrhage, left Code(s): N28.89 - OTHER SPECIFIED DISORDERS OF KIDNEY AND URETER Status: Resolved Comment: s/p embolization (7) Retroperitoneal hemorrhage Code(s): R58 - HEMORRHAGE, NOT ELSEWHERE CLASSIFIED Status: Resolved (8) Antiphospholipid syndrome Code(s): D68.61 - ANTIPHOSPHOLIPID SYNDROME Status: Chronic (9) Chronic systolic congestive heart failure, NYHA class 3 Code(s): I50.22 - CHRONIC SYSTOLIC (CONGESTIVE) HEART FAILURE Status: Chronic (10) Acute respiratory failure Code(s): J96.00 - ACUTE RESPIRATORY FAILURE, UNSP W HYPOXIA OR HYPERCAPNIA Status: Resolved Qualifiers: Respiratory failure complication: hypoxia Qualified Code(s): J96.01 - Acute respiratory failure with hypoxia Comment: Extubated. Pulmonary/CC following. (11) ELIZABETH (acute kidney injury) Code(s): N17.9 - ACUTE KIDNEY FAILURE, UNSPECIFIED Status: Resolved Comment : Cr down to 2.02. hold fluids now. Renal following (12) Abnormal cardiac enzyme level Code(s): R74.8 - ABNORMAL LEVELS OF OTHER SERUM ENZYMES Status: Acute Comment: pt was seen by cardiology in [place] for possible MR repair vs replacement, was not a candidate due to seizure. - Plan * . to rehab when approved and bed available
[2018-02-11 12:30] VITALS: BMI 33.4
[2018-02-11] MEDS: OXcarbazepine 300 MG TAB PO SCH ×2 (14:06→20:34)
--- NOTE | 2018-02-11 15:52 | DIS ---
DATE OF ADMISSION: 01/24/2018 DATE OF DISCHARGE: 02/11/2018 PRIMARY CARE PHYSICIAN: Dr. Rossana Blanc. DISCHARGE DIAGNOSES: 1. End-stage renal disease on hemodialysis. 2. Acute kidney injury on chronic kidney disease. 3. Perinephric hemorrhage and hematoma. 4. Status post embolization of the left kidney. 5. Antiphospholipid syndrome with coagulation defect. 6. Chronic systolic congestive heart failure, Summers Heart Association class 3. 7. Physical deconditioning. 8. Chronic atrial fibrillation. 9. Moderate dehydration, present on admission, resolved. 10. Past history of deep venous thrombosis. 11. Past history of pulmonary embolus. 12. Gout without acute exacerbation. 13. Seizure disorder. 14. History of cardiomyopathy, nonischemic. 15. Acute blood loss anemia. CONSULTATIONS: 1. Pulmonary or Critical Care, Dr. Hussein Olson. 2. Nephrology, Dr. Jesus De La Rosa. 3. Vascular Surgery, Dr. Lanre Shepherd. 4. Cardiology, Dr. Jean-Paul Lezama. 5. Oncology, Dr. Rossana Nash. 6. Electrophysiology, Dr. Ricardo Godwin. PROCEDURES: 1. A 2D echocardiogram on 01/27/2018. 2. Diagnostic catheterization on 01/24/2018. 3. Arterial line placement on 01/26/[address] Hussein Olson. 4. Unsuccessful right femoral vein triple lumen catheter placement by Dr. Dany Wagner on 01/27/20 18. 5. Abdominal aortogram, selective renal arteriogram and embolization of left main renal artery on by Lanre Shepherd. 6. Right tunneled IJ hemodialysis catheter placement by Dr. Dany Wagner on 01/27/2018. 7. Failed attempt for creation of right arm primary fistula on 01/02/2018. 8. Right arm primary fistula with perforating branches of antecubital vein outflow from the proximal radial artery by Dr. Dany Wagner on 02/08/2018. 9. Hemodialysis treatments per Dr. De La Rosa. HISTORY AND PHYSICAL: Mr. Boo is a 47-year-old gentleman with a history of antiphospholipid sy ndrome and coagulopathy who had been on Coumadin due to history of DVT who came in with chest discomf ort and upper abdominal pain. He stopped some medications about 2 weeks prior to presentation and do feel like his medications were needed. In the Emergency Department, there was concern for PE. Dose of Lovenox was given and the patient was sent for V/Q scan. CT scans showed some questionable hazin ess with abdominal ultrasound, gallbladder wall thickening. We have been called for admission. HOSPITAL COURSE: The patient was seen and examined by Dr. Rizo. The patient was continued with plan s for V/Q scan. Patient was placed on full dose heparin for anticoagulation due to ease of reversibi lity. Continue on his home medications. Workup over the next several days revealed no evidence of gallbladder disease, but imaging of the abd omen ultimately on 01/26/2018 showed a very large left perinephric hemorrhage and hematoma. He urgen tly went to the operating room and had the left kidney embolized as the only option to prevent him bl eeding out and subsequently developed renal failure requiring dialysis. He had temporary catheter pl aced and plans were made for permanent dialysis access in the next several days, but on 02/02/2018, t he procedure was unsuccessful. He is ultimately back on 02/08/2018 and had a primary fistula created in the right antecubital fossa. The patient recovered well status post multiple transfusions. His metabolic profile stabilized. He was found to be extremely deconditioned and was ultimately stable for discharge to inpatient to rehab ilitation today/02/11/2018 for continued rehabilitation and dialysis 3 times a week. PHYSICAL EXAMINATION: Patient was seen and examined on the day of discharge. Discharge plan and dis position was discussed with the patient face to face at the bedside. DISCHARGE MEDICATIONS: 1. Tylenol 1 gram p.o. q.6 hours p.r.n. 2. Amiodarone 40 mg p.o. b.i.d. 3. Amlodipine 10 mg daily. 4. Artificial Tears p.r.n. 5. Carvedilol 25 mg p.o. b.i.d. 6. Hydralazine 25 mg p.o. t.i.d. 7. Losartan 50 mg p.o. daily. 8. Melatonin 3 mg p.o. at bedtime. 9. Trileptal 600 mg p.o. b.i.d. 10. Protonix 40 mg daily. 11. Timolol 0.5% 1 drop each eye b.i.d. 12. Prednisone 40 mg p.o. q.a.m. FOLLOWUP APPOINTMENTS: 1. Primary care physician within a week. 2. Pulmonary or Critical Care, Dr. Olson in 2-[address] De La Rosa per his clinic. DISCHARGE CONDITION: Stable. DISCHARGE DISPOSITION: Patient being transferred via nonemergent EMS over to [facility] with [facility]. DISCHARGE DIET: Heart healthy renal diet recommended. DISCHARGE ACTIVITY: As tolerated.
[2018-02-11] MEDS: Timolol 0.5% Ophth Soln 5 ml Bottle EA EYE SCH ×2 (18:03→20:33)
--- NOTE | 2018-02-11 19:53 | PRG ---
DATE OF SERVICE: 02/11/2018 SUBJECTIVE: Mr. Boo is a 47-year-old white male we are following up for his maintenance hemodi alysis. He is currently undergoing dialysis. His dialysis schedule has been changed to Wednesday, , and Wednesday. He will be transferred to rehab today. No other complaints. No chest pain. No shortness of breath. His appetite and energy level are improved. PHYSICAL EXAMINATION: VITAL SIGNS: Blood pressure 138/81, heart rate 65, respiratory rate 16, pulse oximetry 96%, temperat ure 96.6. GENERAL: Noted to be awake, alert, comfortable, not in distress. SKIN: Adequate turgor. HEENT: He has pinkish conjunctivae. Anicteric sclerae. NECK: No neck mass. No carotid bruits. No JVD. CHEST: No deformities. LUNGS: Clear breath sounds. HEART: Normal sinus rhythm. No murmur, no gallops, no rubs. ABDOMEN: Globular, soft, nontender. No masses. EXTREMITIES: No edema. No deformities. MEDICATIONS: Medications of 02/11/2018 were reviewed. LABORATORY DATA: Laboratories of 02/11/2018, sodium 135, potassium 4.4, chloride 100, carbon dioxide 24, BUN 63, creatinine 2.7, calcium 8.6. White count 14, hemoglobin 11.6. ASSESSMENT AND PLAN: 1. Acute kidney injury/chronic renal failure, continuing 8-vhvdx-y-week hemodialysis. Extra dialysi s treatment since we will be scheduling him for a Wednesday, Wednesday, and Wednesday. He will have no michelle lysis over the weekend. He will now be transferred to the rehab facility. 2. Hypertension. Continue current blood pressure meds. 4. Status post left renal bleed, have been resolved status post renal embolization.
[2018-02-11 20:31] VITALS: BP 157/84; TEMP 97.7
[2018-02-11] MEDS: Melatonin 3 MG TAB PO PRN (20:34)
== END 2018-02-11 21:13 | DRG 673 ==
LOC: ERS 03:36 → 2SW 07:21 → OBSVTOIN 10:27 → 2NO 17:02 → CCU 01-26 07:04 → IMCU/EMU 02-05 15:17 → 2SE 02-10 15:29
PROVIDERS: ADMIT Internal Medicine; ATTEND Internal Medicine
PROC: 05HN33Z Insertion of Infusion Device into Left Internal Jugular Vein, Percutaneous Approach (ICD-10-PCS; 2018-01-24)
PROC: B544ZZA Ultrasonography of Left Jugular Veins, Guidance (ICD-10-PCS; 2018-01-24)
PROC: 04LA3DZ Occlusion of Left Renal Artery with Intraluminal Device, Percutaneous Approach (ICD-10-PCS; 2018-01-26)
PROC: B4101ZZ Fluoroscopy of Abdominal Aorta using Low Osmolar Contrast (ICD-10-PCS; 2018-01-26)
PROC: 06HN33Z Insertion of Infusion Device into Left Femoral Vein, Percutaneous Approach (ICD-10-PCS; 2018-01-26)
PROC: 05HN33Z Insertion of Infusion Device into Left Internal Jugular Vein, Percutaneous Approach (ICD-10-PCS; 2018-01-26)
PROC: B544ZZA Ultrasonography of Left Jugular Veins, Guidance (ICD-10-PCS; 2018-01-26)
PROC: 04HK33Z Insertion of Infusion Device into Right Femoral Artery, Percutaneous Approach (ICD-10-PCS; 2018-01-26)
PROC: 30233K1 Transfusion of Nonautologous Frozen Plasma into Peripheral Vein, Percutaneous Approach (ICD-10-PCS; 2018-01-26)
PROC: 30233N1 Transfusion of Nonautologous Red Blood Cells into Peripheral Vein, Percutaneous Approach (ICD-10-PCS; 2018-01-26)
PROC: 30233R1 Transfusion of Nonautologous Platelets into Peripheral Vein, Percutaneous Approach (ICD-10-PCS; 2018-01-26)
PROC: 0BH17EZ Insertion of Endotracheal Airway into Trachea, Via Natural or Artificial Opening (ICD-10-PCS; 2018-01-26)
PROC: 5A1955Z Respiratory Ventilation, Greater than 96 Consecutive Hours (ICD-10-PCS; 2018-01-26)
PROC: 5A1D70Z Performance of Urinary Filtration, Intermittent, Less than 6 Hours Per Day (ICD-10-PCS; 2018-01-26)
PROC: 0JH63XZ Insertion of Tunneled Vascular Access Device into Chest Subcutaneous Tissue and Fascia, Percutaneous Approach (ICD-10-PCS; 2018-01-27)
PROC: 05HM33Z Insertion of Infusion Device into Right Internal Jugular Vein, Percutaneous Approach (ICD-10-PCS; 2018-01-27)
PROC: B5131ZA Fluoroscopy of Right Jugular Veins using Low Osmolar Contrast, Guidance (ICD-10-PCS; 2018-01-27)
PROC: 5A1D70Z Performance of Urinary Filtration, Intermittent, Less than 6 Hours Per Day (ICD-10-PCS; 2018-01-28)
PROC: 5A1D70Z Performance of Urinary Filtration, Intermittent, Less than 6 Hours Per Day (ICD-10-PCS; 2018-01-29)
PROC: 5A1D70Z Performance of Urinary Filtration, Intermittent, Less than 6 Hours Per Day (ICD-10-PCS; 2018-01-30)
PROC: 5A1D70Z Performance of Urinary Filtration, Intermittent, Less than 6 Hours Per Day (ICD-10-PCS; 2018-02-01)
PROC: 05JY0ZZ Inspection of Upper Vein, Open Approach (ICD-10-PCS; 2018-02-02)
PROC: 5A1D70Z Performance of Urinary Filtration, Intermittent, Less than 6 Hours Per Day (ICD-10-PCS; 2018-02-03)
PROC: 5A1D70Z Performance of Urinary Filtration, Intermittent, Less than 6 Hours Per Day (ICD-10-PCS; 2018-02-05)
PROC: 031B0ZF Bypass Right Radial Artery to Lower Arm Vein, Open Approach (ICD-10-PCS; principal; 2018-02-08)
PROC: 5A1D70Z Performance of Urinary Filtration, Intermittent, Less than 6 Hours Per Day (ICD-10-PCS; 2018-02-10)
PROC: 5A1D70Z Performance of Urinary Filtration, Intermittent, Less than 6 Hours Per Day (ICD-10-PCS; 2018-02-11)
DX: N28.89 Other specified disorders of kidney and ureter (principal); R57.8 Other shock; J96.00 Acute respiratory failure, unspecified whether with hypoxia or hypercapnia; K66.1 Hemoperitoneum; G93.41 Metabolic encephalopathy; D68.61 Antiphospholipid syndrome; I50.22 Chronic systolic (congestive) heart failure; I13.2 Hypertensive heart and chronic kidney disease with heart failure and with stage 5 chronic kidney disease, or end stage renal disease; I82.611 Acute embolism and thrombosis of superficial veins of right upper extremity; D62 Acute posthemorrhagic anemia; I82.509 Chronic embolism and thrombosis of unspecified deep veins of unspecified lower extremity; I42.0 Dilated cardiomyopathy; N18.6 End stage renal disease; Z86.711 Personal history of pulmonary embolism; Z79.01 Long term (current) use of anticoagulants; G40.909 Epilepsy, unspecified, not intractable, without status epilepticus; Z53.9 Procedure and treatment not carried out, unspecified reason; I95.9 Hypotension, unspecified; R58 Hemorrhage, not elsewhere classified; I48.91 Unspecified atrial fibrillation; N17.0 Acute kidney failure with tubular necrosis; R00.0 Tachycardia, unspecified
CPT/HCPCS: 36251; 36415; 36416; 36430; 37244; 71045; 71046; 71250; 74018; 74176; 74177; 76705; 76770; 78227; 78582; 80048; 80053; 80183; 80306; 81001; 81003; 81015; 82533; 82553; 82805; 83520; 83605; 83690; 83735; 84484; 85014; 85018; 85025; 85049; 85379; 85610; 85730; 86256; 86580; 86704; 86706; 86803; 86850; 86900; 86901; 87040; 87086; 87340; 90935; 93005; 93010; 93306; 93970; 94002; 94003; 96361; 96372; 96374; 96376; A9537; A9540; A9558; C1751; C1752; C1769; C9113; G0257; G0365; G8978-GP-CN; G8979-GP-CM; G8996-GN-CI; G8997-GN-CH; J0282; J0670; J0744; J1160; J1642; J1644; J1650; J1953; J2001; J2060; J2250; J2270; J2310; J2370; J2704; J2720; J2920; J2997; J3010; J3301; J3490; J7050; J7070; P9016; P9035; P9047; P9059; Q9967; S0020

== ENCOUNTER 2018-03-23 04:40 | Inpatient (IN) | payer MEDICARE ==
[2018-03-23 05:55] LABS: ALT (SGPT) 12 U/L (8-55); AST (SGOT) 12 U/L (5-34); Albumin 3.1 g/dL (3.5-5.0); Alkaline Phosphatase 73 U/L (40-150); Anion Gap 14 mmol/L (10-20); BUN (Urea Nitrogen) 16 mg/dL (8.9-20.6); Bilirubin, Total 0.6 mg/dL (0.2-1.2); Calc. Creatinine Clearance 0 mL/min (70-130); Calcium 8.3 mg/dL (7.8-10.44); Carbon Dioxide 29 mmol/L (22-29); Chloride 96 mmol/L (98-107); Estimated GFR-MDRD 17; Globulin 2.6 g/dL (2.4-3.5); Glucose 94 mg/dL (70-105); Protein, Total 5.7 g/dL (6.0-8.3); Sodium 136 mmol/L (136-145)
[2018-03-23 06:00] LABS: #Eosinphils 0.1 thou/uL (0.0-0.7); #Monocytes 0.5 thou/uL (0.11-0.59); #Neutrophils 3.6 thou/uL (1.40-6.50); %Basophils 0.4 % (0.0-1.0); %Eosinophils 1.3 % (0.0-10.0); %Lymphocytes 18.8 % (21.0-51.0); %Monocytes 9.2 % (0.0-10.0); %Neutrophils 70.3 % (42.0-75.0); Hemoglobin 9.6 g/dL (14.0-18.0); Mean Corpuscular Hemoglobin 31.1 pg (27.0-31.0); Mean Corpuscular Volume 94.3 fL (78.0-98.0); Mean Platelet Volume 8.4 fL (7.4-10.4); Platelet Count 54 thou/uL (130-400); Platelet Morphology Comment Appears Decreased; RBC Distribution Width 15.2 % (11.5-14.5); Red Blood Cell (RBC) Count 3.09 mill/uL (4.70-6.10); White Blood Cell (WBC) Count 5.1 thou/uL (4.8-10.8)
[2018-03-23 06:16] LABS: CKMB 0.4 ng/mL (0-6.6)
[2018-03-23] MEDS ORDERED: HYDROcodone/Acetaminophen 10/325 mg Tablet ONE (06:27)
[2018-03-23] MEDS ORDERED: Promethazine HCl 25 MG/ML VIAL ONE (06:28)
[2018-03-23] MEDS ORDERED: Acetaminophen 325 MG TAB PO PRN (08:22)
[2018-03-23] MEDS ORDERED: Loperamide HCl 2 MG CAP PO PRN (08:22)
[2018-03-23] MEDS ORDERED: Zolpidem Tartrate 5 MG TAB PO PRN (08:22)
[2018-03-23] MEDS ORDERED: Calcium Carbonate 500 MG ChewTAB PO PRN (08:22)
--- NOTE | 2018-03-23 08:43 | RAD ---
FRONTAL VIEW CHEST: Date: 03/23/18 COMPARISON: 02/28/18. INDICATION: Chest pain. FINDINGS: There is a tunneled right-sided vascular catheter again seen. Evidence to indicate fluid overload wit h bilateral interstitial as well as alveolar opacities of perihilar distribution superimposed upon th e enlargement of cardiac silhouette and prominent pulmonary vasculature. Mild bilateral pleural fluid is not excluded. IMPRESSION: Findings favoring fluid overload. Superimposed atypical, bilateral pneumonia not excluded. Recommend follow-up to resolution. POS: AMARIS
[2018-03-23] MEDS ORDERED: Epoetin (ESRD) 20,000 UNITS/ML SC SCH (09:30)
[2018-03-23] MEDS: Saccharomyces boulardii 250 MG CAP PO SCH (09:43)
[2018-03-23] MEDS: Famotidine 20 MG TAB PO SCH (09:43)
[2018-03-23 09:49] LABS: Troponin I 0.076 ng/mL (< 0.028)
[2018-03-23] MEDS ORDERED: Potassium Chloride 20 MEQ TAB PO SCH (10:30)
--- NOTE | 2018-03-23 10:34 | PRG ---
DATE OF SERVICE: 03/23/2018 SERVICE: Renal Medicine SUBJECTIVE: Mr. Boo is a 47-year-old white male with ESRD and was admitted for nausea, vomiting, and diarrhea. During the initial evaluation, chest x-ray suggested volume overload. My plan is to do an extra short dialysis with this patient for 2 hours for fluid removal. No other complaints today. OBJECTIVE: VITAL SIGNS: Blood pressure is currently pending. Heart rate 70. GENERAL: Awake, supine, comfortable, not in distress. SKIN: Adequate turgor. HEENT: He has a slightly pale conjunctivae. Anicteric sclerae. NECK: No neck mass. No carotid bruits. No JVD. CHEST: No deformities. LUNGS: Decreased breath sounds. HEART: Normal sinus rhythm. No murmur. No gallops. No rubs. ABDOMEN: Globular, soft, and nontender. No masses. EXTREMITIES: No edema. CHEST: He does have a cuffed hemodialysis catheter. LABORATORY DATA: Laboratories of March 23, 2018; white count 5.1, hemoglobin 9.6, and platelet count 54,000. chloride 96, carbon dioxide 29, BUN 16, creatinine 3.76, AST 12, ALT 12, and albumin is 3.1. IMAGING STUDIES: Chest x-ray shows CHF. ASSESSMENT AND PLAN: 1. End-stage renal disease - we will do extra hemodialysis today. We will do a 2-hour hemodialysis with ultrafiltration due to the volume overload. Attempt 2 L of fluid removal only as tolerated. 2. Anemia. Resume Epogen 7500 units subcu weekly. 3. Hypoalbuminemia. Start protein supplementation. 4. Diarrhea/nausea and vomiting - continue supportive care. Job ID: [id number] [facility]
[2018-03-23] MEDS ORDERED: Heparin 10,000 UNITS/ 10 ML VIAL ONE (11:00)
--- NOTE | 2018-03-23 11:11 | HP ---
PRIMARY CARE PHYSICIAN: Dr. Rossana Blanc. PRIMARY [employer]ER PLANT ATTENDANT: Dr. De La Rosa. REASON FOR ADMISSION: Acute gastroenteritis, fluid overload. HISTORY OF PRESENT ILLNESS: This is a 47-year-old male, who has underlying ESRD , on hemodialysis Wednesday, , Wednesday. Because of Jackie, he got last dialysis on Wednesday. Last night, the patient was having nausea, vomiting, and diarrhea. He had several vomiting and several diarrhea. He was not able to keep up with the count, but each time, it was liquidy bowel movement along with vomiting containing food particle initially and subsequently only liquid without any bile , without any blood. He denies any blood in stool or vomitus. He denies any fever or chills. He was feeling little bit exhausted and little bit dizzy. He was also feeling short of breath. The patient denies taking excessive drinking liquid. All of suddenly, he started all the symptoms last night around 9 p.m. He denies any association with food or any outside food. Nobody else got sick in his family. He denies any sick exposure. In the emergency room, chest x-ray showed fluid overload status. His blood pressure was on lower side. He denies any chest pain or palpitation. He denies any abdominal pain other than mild crampy pain with diarrhea. He denies any UTI symptoms. He denies any flu-like symptoms. He denies any cough or pleuritic chest pain. REVIEW OF SYSTEMS: CONSTITUTIONAL: Negative for weight loss or gain, ability to conduct usual activities. SKIN: Negative for rash, itching. EYES: Negative for double vision, pain. ENT/MOUTH: Negative for nose bleeding, neck stiffness, pain, tenderness. CARDIOVASCULAR: Negative for palpitations, dyspnea on exertion, orthopnea. RESPIRATORY: Negative for shortness of breath, wheezing, cough, hemoptysis, fever or night sweats. GASTROINTESTINAL: Negative for poor appetite, abdominal pain, heartburn, nausea , vomiting, constipation, or diarrhea. GENITOURINARY: Negative for urgency, frequency, dysuria, nocturia. MUSCULOSKELETAL: Negative for pain, swelling. NEUROLOGIC/PSYCHIATRIC: Negative for anxiety, depression. ALLERGY/IMMUNOLOGIC: Negative for skin rash, bleeding tendency. Please see my HPI for pertinent positives and negatives. All other review of systems reviewed and negative except as mentioned in HPI. PAST MEDICAL HISTORY: 1. History of bilateral lower extremity deep vein thrombosis. 2. History of pulmonary embolism. 3. History of mitral valve prolapse, chronic systolic heart failure with EF 40%. 4. ESRD, on hemodialysis on Wednesday, , Wednesday. 5. Chronic anticoagulation. 6. Morbid obesity. 7. Hypertension. 8. Gout. PAST SURGICAL HISTORY: 1. Cardiac catheterization. 2. Dialysis access. 3. IVC filter. PAST PSYCHIATRIC HISTORY: Reviewed and negative. SOCIAL HISTORY: The patient lives at home with family. He is and has a daughter. No history of tobacco, alcohol, or illicit drug abuse. FAMILY HISTORY: The patient denies any strong family history of coronary artery disease, stroke, or cancer. He denies any family history of dialysis. ALLERGIES: CURRENTLY, THE PATIENT IS ALLERGIC TO DILANTIN, VERSED EMERGENCY ROOM COURSE: Reviewed. CURRENT HOME MEDICATIONS: 1. Trileptal bid 2. Timolol ophthalmic drops each eye daily. 3. Amiodarone 200 mg b.i.d. 4. Norvasc 10 mg daily. 5. Coreg 25 mg b.i.d. 6. Hydralazine 25 mg t.i.d. 7. Losartan 50 mg daily. 8. Melatonin 3 mg p.o. at bedtime. 9. Protonix 40 mg daily. PHYSICAL EXAMINATION: VITAL SIGNS: On arrival, blood pressure 103/79, pulse 109 and slightly irregular, respiratory rate 16, temperature 98.4, saturation 92% on 3 L. Weight 113.4 kg. GENERAL: The patient is currently alert, awake, follows commands. In no obvious acute distress. HEENT: Head; normocephalic and atraumatic. Eyes; pupils round, reactive to light. Extraocular muscle intact. ENT; oropharynx within normal limits. Moist mucous membranes. No oral lesion. No pharyngeal erythema. No exudate. NECK: Supple. No JVD. No thyromegaly. No carotid bruit. LUNGS: Few basilar rales noted. No accessory muscles of respiration in use. No wheezing. CARDIAC: S1 and S2, slightly irregular. No murmur elicited. No gallop. No rub. ABDOMEN: Soft. Bowel sounds present. Nontender, nondistended. No organomegaly. No mass. No suprapubic tenderness. BACK: Unremarkable. No CVA tenderness. EXTREMITIES: Upper extremities; passive movement of all joints is normal. Lower extremities; no edema. Good distal pulsation. SKIN: No skin rash. HEMATOLOGIC: No lymphadenopathy. PSYCHIATRIC: Normal affect. SIGNIFICANT LABORATORY DATA: EKG showing atrial fibrillation with controlled ventricular response, nonspecific ST-T changes. Chest x-ray showing fluid overload status, right-sided dialysis catheter in place. CBC; WBC 5.1, hemoglobin 9.6, and platelets 54. BMP; sodium 136, potassium 3.0, chloride 96, BUN 16, creatinine 3.76, glucose 94, calcium 8.3. LFT; AST 12, ALT 12, alkaline phosphatase 73, albumin 3.1. CK-MB 0.4, troponin 0.052 and 0.076. BNP 754. ASSESSMENT AND PLAN: Impression: 1. Acute gastroenteritis, most likely viral. We will rule out bacterial infection. We will send stool for infection including C diff, ova and parasite, and Campylobacter antigen and culture. At this point, the patient does not need any antibiotic therapy. We will consider symptomatic treatment. 2. Fluid overload, likely due to missed dialysis on Wednesday because of holidays. Dr. De La Rosa will be consulted and he will decide whether this patient needs to be dialyzed today. 3. Elevated troponin. This is chronically elevated troponin when compared to the past. The patient does not have any chest pain. We will monitor on telemetry floor and do serial cardiac enzyme. 4. Hypokalemia. We will give him potassium chloride 20 mEq p.o. one time dose. 5. End-stage renal disease, on hemodialysis Wednesday, , Wednesday. We will consult Dr. De La Rosa for maintenance hemodialysis while in hospital. 6. History of hypertension, but currently low blood pressure and so we will hold on antihypertensive medications. When blood pressure permits, then we will resume selective blood pressure medications. 7. Seizure disorder. The patient will continue his seizure medication while in hospital after confirmation of dose. 8. Paroxysmal atrial fibrillation. Continue amiodarone as per home dosage. 9. Anemia of renal disease. We will continue Nephro-Maria C one tablet p.o. daily. 10. Thrombocytopenia. The patient has a chronically low platelet count. 11. Deep venous thrombosis prophylaxis not needed because of low platelet count and low risk. 12. Gastrointestinal prophylaxis, Pepcid 20 mg p.o. daily. 13. Code status. The patient is full code. The patient's is surrogate decision maker. DISPOSITION PLAN: Based on clinical course, we are expecting the patient's stay in hospital 24 to 48 hours. Plan of care discussed with the patient in detail. Job ID: [id number] MTDD
[2018-03-23 12:34] LABS: Troponin I 0.134 ng/mL (< 0.028)
[2018-03-23] MEDS: Guaifenesin DM 100-10/5 ML UDCUP PO PRN (20:51)
--- NOTE | 2018-03-23 21:41 | RAD ---
SINGLE VIEW OF THE CHEST: 03/23/18 COMPARISON: 03/23/18 at 5:04 a.m. HISTORY: Shortness of breath. FINDINGS: Single view of the chest shows an enlarged but cardiomediastinal silhouette. The dialysis catheter i s unchanged in position. Air space opacities are again seen in the bilateral lower lobes. This may re present an infectious infiltrate or pulmonary edema. IMPRESSION: Stable exam. POS: AMARIS
[2018-03-23] MEDS ORDERED: Carvedilol 25 MG TAB PO SCH (22:30)
[2018-03-23] MEDS ORDERED: Amiodarone 200 MG TAB PO SCH (22:30)
[2018-03-23] MEDS: Melatonin 3 MG TAB PO PRN (22:45)
[2018-03-24 06:02] LABS: #Eosinphils 0.1 thou/uL (0.0-0.7); #Lymphocytes 0.9 thou/uL (1.20-3.40); #Monocytes 0.3 thou/uL (0.11-0.59); #Neutrophils 2.3 thou/uL (1.40-6.50); %Basophils 0.5 % (0.0-1.0); %Eosinophils 2.2 % (0.0-10.0); %Lymphocytes 25.2 % (21.0-51.0); %Monocytes 8.5 % (0.0-10.0); %Neutrophils 63.7 % (42.0-75.0); Hemoglobin 8.6 g/dL (14.0-18.0); Mean Corpuscular HGB CONC 33.2 g/dL (32.0-36.0); Mean Corpuscular Hemoglobin 31.5 pg (27.0-31.0); Mean Corpuscular Volume 95.1 fL (78.0-98.0); Mean Platelet Volume 8.5 fL (7.4-10.4); Platelet Count 42 thou/uL (130-400); Red Blood Cell (RBC) Count 2.73 mill/uL (4.70-6.10); White Blood Cell (WBC) Count 3.6 thou/uL (4.8-10.8)
[2018-03-24 06:22] LABS: ALT (SGPT) 11 U/L (8-55); AST (SGOT) 12 U/L (5-34); Albumin 2.7 g/dL (3.5-5.0); Alkaline Phosphatase 67 U/L (40-150); Anion Gap 13 mmol/L (10-20); BUN (Urea Nitrogen) 14 mg/dL (8.9-20.6); Bilirubin, Total 0.5 mg/dL (0.2-1.2); Calc. Creatinine Clearance 18 mL/min (70-130); Carbon Dioxide 27 mmol/L (22-29); Chloride 101 mmol/L (98-107); Estimated GFR-MDRD 18; Globulin 2.4 g/dL (2.4-3.5); Glucose 91 mg/dL (70-105); Potassium 3.5 mmol/L (3.5-5.1); Protein, Total 5.1 g/dL (6.0-8.3); Sodium 137 mmol/L (136-145)
[2018-03-24] MEDS: OXcarbazepine 300 MG TAB PO SCH ×2 (08:54→20:46)
[2018-03-24] MEDS: Famotidine 20 MG TAB PO SCH (08:54)
[2018-03-24] MEDS: Saccharomyces boulardii 250 MG CAP PO SCH (08:54)
[2018-03-24] MEDS: Amiodarone 200 MG TAB PO SCH ×2 (08:55→20:46)
[2018-03-24] MEDS: Folic Acid/Vit B Comp W-C PO SCH (08:55)
[2018-03-24] MEDS ORDERED: Losartan 25 MG TAB PO SCH (09:00)
[2018-03-24] MEDS ORDERED: hydrALAZINE 25 MG TAB PO SCH (09:00)
--- NOTE | 2018-03-24 10:29 | PRG ---
DATE OF SERVICE: 03/24/2018 SUBJECTIVE: Mr. Boo is a 47-year-old white male with ESRD and was admitted for CHF. He underwent 2-hour hemodialysis yesterday. His breathing is better today. Chest x-ray suggested CHF. He is also being followed up for his thrombocytopenia. Hematology referral has been done as an outpatient. No other complaints today. OBJECTIVE: VITAL SIGNS: Blood pressure is 99/60, heart rate 97, respiratory rate 20, temperature 97.7, and pulse ox 99%. GENERAL: Awake, supine, comfortable, not in overt distress. SKIN: Adequate turgor. HEENT: Slightly pale conjunctivae. Anicteric sclerae. NECK: No neck mass. No carotid bruits. No JVD. CHEST: No deformities. LUNGS: Decreased breath sounds. HEART: Normal sinus rhythm. No murmur, no gallops, no rubs. ABDOMEN: Globular, soft, nontender. No masses. EXTREMITIES: No edema. MEDICATIONS: Medications of March 24, 2018, reviewed. LABORATORY DATA: Laboratories of March 24, 2018, white count 3.6, hemoglobin 8.6. Sodium 137, potassium 3.5, chloride 101, carbon dioxide 27, BUN 14, creatinine 3.71, albumin 2.7. Platelet count is 42,000. ASSESSMENT AND PLAN: 1. Thrombocytopenia-awaiting outpatient Hematology evaluation. We will avoid heparin if we can today. 2. Congestive heart failure, clinically improved. 3. End-stage renal disease. We will resume back his regular Wednesday, , and Wednesday hemodialysis regimen. Again, fluid removal as tolerated. 4. Hypertension-BP is running on the low side. My bias is to discontinue his hydralazine. 5. Recheck CBC tomorrow. Job ID: [id number]
[2018-03-24] MEDS: Guaifenesin DM 100-10/5 ML UDCUP PO PRN ×2 (10:59→20:46)
--- NOTE | 2018-03-24 12:26 | DIS ---
DATE OF ADMISSION: 03/23/2018 DATE OF DISCHARGE: 03/24/2018 PRIMARY CARE PHYSICIAN: Rossana Blanc MD DISCHARGE DISPOSITION: Home. PRIMARY DISCHARGE DIAGNOSES: 1. Acute gastroenteritis, viral. 2. Fluid overload, improved. SECONDARY DISCHARGE DIAGNOSES: 1. End-stage renal disease, on hemodialysis. 2. Chronic thrombocytopenia. 3. Anemia of renal disease. 4. Chronically-elevated troponin. 5. Glaucoma. 6. Paroxysmal atrial fibrillation. 7. Seizure disorder. PRIMARY PROCEDURE/OPERATION: None. RADIOLOGICAL INVESTIGATION: Chest x-ray suggestive of fluid overload. SIGNIFICANT LABORATORY DATA: WBC of 3.6, hemoglobin 8.6, and platelets 42. Sodium 137, potassium 3.5, BUN 14, and creatinine 3.71. LFT normal. Cardiac troponin 0.134. Albumin 2.7. DISCHARGE MEDICATIONS: 1. Cordarone 200 mg p.o. b.i.d. 2. Trileptal 600 mg p.o. b.i.d. 3. Timolol ophthalmic drops each eye b.i.d. 4. Amlodipine 10 mg daily. 5. Coreg 25 mg p.o. b.i.d. 6. Losartan 50 mg p.o. daily. Note, the patient is advised to hold antihypertensive medication if blood pressure is less than 120. CONTRAINDICATION: None. CODE STATUS: Full code. INPATIENT JUNIOR ARCHITECT: Dr. De La Rosa was consulted for maintenance hemodialysis. TEST RESULTS PENDING ON DISCHARGE: None. ALLERGIES: DILANTIN, MIDAZOLAM. DISCHARGE PLAN: Posthospital, the patient is advised to follow up with Hematology for evaluation of chronic thrombocytopenia as well as pancytopenia. The patient will maintain his regular hemodialysis. The patient will follow up with primary care physician in 1 week. HOSPITAL COURSE: A 47-year-old male with above-mentioned medical problem, who was admitted by me yesterday. Please see my HPI for further details. The patient was having acute gastroenteritis. He had several times diarrhea and vomiting at home. He was clinically dehydrated, but his chest x-ray was showing a fluid overload status. The patient was admitted as observation status. He has chronically elevated troponin. He did not have any chest pain. His BNP was elevated because of ESRD and fluid overload status. Dr. De La Rosa was consulted and he did maintenance hemodialysis. Because of holiday, this patient was not able to maintain his regular schedule of Wednesday, , and Wednesday, and that might have caused his volume overload status. This patient's presentation was consistent with viral gastroenteritis. We did not prescribe any antibiotic therapy. His diarrhea spontaneously stopped while in the hospital. At this point, the patient is going to get another dialysis today as per his regular schedule and subsequently, he will be discharged home. This patient's blood pressure is running lower side and that is why we advised to hold blood pressure medication. If the blood pressure is less than 120, he will resume rest of medication. We have discontinued hydralazine from his regimen. The patient is seen and examined at the bedside today. All review of systems reviewed with him and negative. PHYSICAL EXAMINATION: VITAL SIGNS: Currently, temperature 97.7, pulse 97, respiratory rate 20, saturation 99% on room air, and blood pressure 99/60. Weight 112 pounds. GENERAL: The patient is currently alert, awake. No obvious acute distress. HEENT: Head; normocephalic, atraumatic. Eyes; pupils are round and reactive to light. Extraocular muscle intact. ENT; oropharynx within normal limits. Moist mucous membranes. No oral lesion. No pharyngeal erythema. No exudate. NECK: Supple. No JVD. No thyromegaly. No carotid bruit. LUNGS: Clear to auscultation without any rhonchi or rales. CARDIAC: S1 and S2, regular without any murmur. ABDOMEN: Soft and benign. EXTREMITIES: No edema. NEUROLOGIC: Nonfocal examination. This patient will be discharged home later on today if Dr. De La Rosa is okay. Job ID: [id number]
--- NOTE | 2018-03-24 12:40 | PDOC.PN ---
- Subjective Encounter Start Date: 03/24/18 Encounter Start Time: 07:00 -: old records requested/rev Patient seen and examined. No new complaints. No overnight events - Objective Resuscitation Status - Order Detail: 03/23/18 07:56 Resuscitation Status Routine Resuscitation Status: FULL: Full Resuscitation MAR Reviewed: Yes Vital Signs & Weight: Vital Signs (12 hours) Temp Pulse Resp BP BP Pulse Ox 03/24/18 11:33 98.2 F 103 H 20 101/70 97 03/24/18 10:21 96 03/24/18 07:07 97.7 F 97 20 99/60 99 03/24/18 03:26 98.6 F 99 18 99/66 100 03/24/18 01:25 16 100 Weight Weight 112 lb 4.8 oz I&O: 03/23/18 03/24/18 03/25/18 06:59 06:59 06:59 Intake Total 390 Output Total 425 Balance -35 Result Diagrams: 03/24/18 05:32 03/24/18 05:31 EKG Reviewed by me: Yes Phys Exam - Physical Examination Constitutional: NAD HEENT: PERRLA, moist MMs, sclera anicteric Neck: no JVD, supple Respiratory: no wheezing, no rales, no rhonchi Cardiovascular: RRR, no significant murmur, no rub Gastrointestinal: soft, non-tender, no distention, positive bowel sounds Musculoskeletal: no edema, pulses present Neurological: non-focal, normal sensation Lymphatic: no nodes Psychiatric: normal affect, A&O x 3 Skin: no rash, normal turgor Dx/Plan (1) Fluid overload Code(s): E87.70 - FLUID OVERLOAD, UNSPECIFIED Status: Resolved (2) Gastroenteritis Code(s): K52.9 - NONINFECTIVE GASTROENTERITIS AND COLITIS, UNSPECIFIED Status : Resolved (3) Abnormal cardiac enzyme level Code(s): R74.8 - ABNORMAL LEVELS OF OTHER SERUM ENZYMES Status: Chronic Comment: (4) Antiphospholipid syndrome Code(s): D68.61 - ANTIPHOSPHOLIPID SYNDROME Status: Chronic (5) Atrial fibrillation Code(s): I48.91 - UNSPECIFIED ATRIAL FIBRILLATION Status: Chronic Qualifiers: Atrial fibrillation type: paroxysmal (6) Cardiomyopathy Code(s): I42.9 - CARDIOMYOPATHY, UNSPECIFIED Status: Chronic (7) Chronic anticoagulation Code(s): Z79.01 - SENIOR PROJECT ARCHITECT (CURRENT) USE OF ANTICOAGULANTS Status: Chronic (8) H/O tonic-clonic seizures Code(s): Z86.69 - PERSONAL HISTORY OF DIS OF THE NERVOUS SYS AND SENSE ORGANS Status: Chronic Comment: s/o Lobectomy in past (9) HTN (hypertension) Code(s): I10 - ESSENTIAL (PRIMARY) HYPERTENSION Status: Chronic Qualifiers: (10) Pancytopenia Code(s): D61.818 - OTHER PANCYTOPENIA Status: Chronic (11) Thrombocytopenia Code(s): D69.6 - THROMBOCYTOPENIA, UNSPECIFIED Status: Chronic - Plan cont current plan of care * medication reviewed as below * symptomatic treatment * see discharge veronica. Review of Systems - Review of Systems ENT: negative: Ear Pain, Ear Discharge, Nose Pain, Nose Discharge, Nose Congestion, Mouth Pain, Mouth Swelling, Throat Pain, Throat Swelling, Other Respiratory: negative: Cough, Dry, Shortness of Breath, Hemoptysis, SOB with Excertion, Pleuritic Pain, Sputum, Wheezing Cardiovascular: negative: chest pain, palpitations, orthopnea, paroxysmal nocturnal dyspnea, edema, light headedness, other Gastrointestinal: negative: Nausea, Vomiting, Abdominal Pain, Diarrhea, Constipation, Melena, Hematochezia, Other Genitourinary: negative: Dysuria, Frequency, Incontinence, Hematuria, Retention , Other Musculoskeletal: negative: Neck Pain, Shoulder Pain, Arm Pain, Back Pain, Hand Pain, Leg Pain, Foot Pain, Other - Medications/Allergies Allergies/Adverse Reactions: Allergies Allergy/AdvReac Type Severity Reaction Status Date / Time phenytoin sodium Allergy Severe Emesis Verified 03/23/18 17:23 [From Dilantin] phenytoin sodium extended Allergy Severe Emesis Verified 03/23/18 17:23 [From Dilantin] midazolam HCl [From Versed] Allergy Intermediate swelling Verified 03/23/18 17: 23 Medications: Current Medications Acetaminophen (Tylenol) 1,000 mg PO Q6H PRN PRN Reason: Moderate to Severe Pain (6-10) Amiodarone HCl (Cordarone) 200 mg PO BID [facility] Last Admin: 03/24/18 08:55 Dose: 200 mg Amlodipine Besylate (Norvasc) 10 mg PO DAILY [facility] Calcium Carbonate (Tums) 1,000 mg PO Q4H PRN PRN Reason: Heartburn or Indigestion Carvedilol (Coreg) 25 mg PO BID[facility] Epoetin Nain (Procrit) 7,500 units SC Q7D [facility] Last Admin: 03/23/18 17:19 Dose: 7,500 units Famotidine (Pepcid) 20 mg PO DAILY [facility] Last Admin: 03/24/18 08:54 Dose: 20 mg Guaifenesin/Dextromethorphan (Robitussin Dm) 10 ml PO Q6H PRN PRN Reason: Cough Last Admin: 03/24/18 10:59 Dose: 10 ml Loperamide HCl (Imodium) 2 mg PO PRN PRN PRN Reason: Diarrhea/Loose Stools Losartan Potassium (Cozaar) 50 mg PO DAILY [facility] Melatonin (Melatonin) 3 mg PO HSPRN PRN PRN Reason: Insomnia Last Admin: 03/23/18 22:45 Dose: 3 mg Ondansetron HCl (Zofran Odt) 4 mg PO Q6H PRN PRN Reason: Nausea/Vomiting Ondansetron HCl (Zofran) 4 mg IVP Q6H PRN PRN Reason: Nausea/Vomiting Oxcarbazepine (Trileptal) 600 mg PO BID [facility] Last Admin: 03/24/18 08:54 Dose: 600 mg Saccharomyces Boulardii (Florastor) 250 mg PO DAILY [facility] Last Admin: 03/24/18 08:54 Dose: 250 mg Sodium Chloride (Flush - Normal Saline) 10 ml IVF Q12HR [facility] Last Admin: 03/24/18 08:54 Dose: 10 ml Sodium Chloride (Flush - Normal Saline) 10 ml IVF PRN PRN PRN Reason: Saline Flush Vitamin B Complex/Vit C/Folic Acid (Nephro-Maria C Tablet) 1 tab PO DAILY [facility] Last Admin: 03/24/18 08:55 Dose: 1 tab Zolpidem Tartrate (Ambien) 5 mg PO HSPRN PRN PRN Reason: Insomnia
[2018-03-24] MEDS: Amlodipine 10 MG TAB PO SCH (13:05)
[2018-03-24] MEDS: Carvedilol 25 MG TAB PO SCH ×2 (13:05→16:35)
[2018-03-24] MEDS ORDERED: Heparin 1,000 UNITS/ML VIAL ONE (15:00)
[2018-03-24] MEDS: Acetaminophen 500 MG TAB PO PRN (20:46)
[2018-03-24] MEDS: Melatonin 3 MG TAB PO PRN (20:46)
[2018-03-24] MEDS: Ondansetron PF 4 MG/2 ML Vial IVP PRN (20:59)
[2018-03-25] MEDS: Famotidine 20 MG TAB PO SCH (09:02)
[2018-03-25] MEDS: Folic Acid/Vit B Comp W-C PO SCH (09:02)
[2018-03-25] MEDS: Amiodarone 200 MG TAB PO SCH ×2 (09:02→20:39)
[2018-03-25] MEDS: Amlodipine 10 MG TAB PO SCH (09:02)
[2018-03-25] MEDS: Saccharomyces boulardii 250 MG CAP PO SCH (09:02)
[2018-03-25] MEDS: Carvedilol 25 MG TAB PO SCH ×2 (09:03→09:13)
[2018-03-25] MEDS: OXcarbazepine 300 MG TAB PO SCH ×2 (09:03→20:39)
--- NOTE | 2018-03-25 09:11 | PDOC.PN ---
- Subjective Encounter Start Date: 03/25/18 Encounter Start Time: 08:40 Patient seen and examined. No new complaints. No overnight events - Objective Resuscitation Status - Order Detail: 03/23/18 07:56 Resuscitation Status Routine Resuscitation Status: FULL: Full Resuscitation MAR Reviewed: Yes Vital Signs & Weight: Vital Signs (12 hours) Temp Pulse Resp BP Pulse Ox 03/25/18 07:01 97.4 F L 113 H 20 107/70 93 L 03/25/18 03:29 98.4 F 110 H 18 110/76 93 L 03/24/18 23:09 99.6 F 109 H 16 100/64 100 Weight Weight 240 lb 9.6 oz I&O: 03/24/18 03/25/18 03/26/18 06:59 06:59 06:59 Intake Total 390 1142 Output Total 425 325 Balance -35 817 Result Diagrams: 03/24/18 05:32 03/24/18 05:31 EKG Reviewed by me: Yes Phys Exam - Physical Examination Constitutional: NAD HEENT: PERRLA, moist MMs, sclera anicteric Neck: no JVD, supple Respiratory: no wheezing, no rales, no rhonchi Cardiovascular: RRR, no significant murmur, no rub Gastrointestinal: soft, non-tender, no distention, positive bowel sounds Musculoskeletal: no edema, pulses present Neurological: non-focal, normal sensation Lymphatic: no nodes Psychiatric: normal affect, A&O x 3 Skin: no rash, normal turgor Dx/Plan (1) Fluid overload Code(s): E87.70 - FLUID OVERLOAD, UNSPECIFIED Status: Resolved (2) Gastroenteritis Code(s): K52.9 - NONINFECTIVE GASTROENTERITIS AND COLITIS, UNSPECIFIED Status : Resolved (3) Abnormal cardiac enzyme level Code(s): R74.8 - ABNORMAL LEVELS OF OTHER SERUM ENZYMES Status: Chronic Comment: (4) Antiphospholipid syndrome Code(s): D68.61 - ANTIPHOSPHOLIPID SYNDROME Status: Chronic (5) Atrial fibrillation Code(s): I48.91 - UNSPECIFIED ATRIAL FIBRILLATION Status: Chronic Qualifiers: Atrial fibrillation type: paroxysmal (6) Cardiomyopathy Code(s): I42.9 - CARDIOMYOPATHY, UNSPECIFIED Status: Chronic (7) Chronic anticoagulation Code(s): Z79.01 - SNF (CURRENT) USE OF ANTICOAGULANTS Status: Chronic (8) H/O tonic-clonic seizures Code(s): Z86.69 - PERSONAL HISTORY OF DIS OF THE NERVOUS SYS AND SENSE ORGANS Status: Chronic Comment: s/o Lobectomy in past (9) HTN (hypertension) Code(s): I10 - ESSENTIAL (PRIMARY) HYPERTENSION Status: Chronic Qualifiers: - Plan cont current plan of care * medication reviewed as below * symptomatic treatment * see my discharge summery * dc losartan. Review of Systems - Review of Systems ENT: negative: Ear Pain, Ear Discharge, Nose Pain, Nose Discharge, Nose Congestion, Mouth Pain, Mouth Swelling, Throat Pain, Throat Swelling, Other Respiratory: negative: Cough, Dry, Shortness of Breath, Hemoptysis, SOB with Excertion, Pleuritic Pain, Sputum, Wheezing Cardiovascular: negative: chest pain, palpitations, orthopnea, paroxysmal nocturnal dyspnea, edema, light headedness, other Gastrointestinal: negative: Nausea, Vomiting, Abdominal Pain, Diarrhea, Constipation, Melena, Hematochezia, Other Genitourinary: negative: Dysuria, Frequency, Incontinence, Hematuria, Retention , Other Musculoskeletal: negative: Neck Pain, Shoulder Pain, Arm Pain, Back Pain, Hand Pain, Leg Pain, Foot Pain, Other Skin: negative: Rash, Lesions, Loy, Bruising, Other - Medications/Allergies Allergies/Adverse Reactions: Allergies Allergy/AdvReac Type Severity Reaction Status Date / Time phenytoin sodium Allergy Severe Emesis Verified 03/23/18 17:23 [From Dilantin] phenytoin sodium extended Allergy Severe Emesis Verified 03/23/18 17:23 [From Dilantin] midazolam HCl [From Versed] Allergy Intermediate swelling Verified 03/23/18 17: 23 Medications: Current Medications Acetaminophen (Tylenol) 1,000 mg PO Q6H PRN PRN Reason: Moderate to Severe Pain (6-10) Last Admin: 03/24/18 20:46 Dose: 1,000 mg Amiodarone HCl (Cordarone) 200 mg PO BID [facility] Last Admin: 03/25/18 09:02 Dose: 200 mg Amlodipine Besylate (Norvasc) 10 mg PO DAILY [facility] Last Admin: 03/25/18 09:02 Dose: 10 mg Calcium Carbonate (Tums) 1,000 mg PO Q4H PRN PRN Reason: Heartburn or Indigestion Carvedilol (Coreg) 25 mg PO BID-[facility] Last Admin: 03/25/18 09:03 Dose: 25 mg Epoetin Nain (Procrit) 7,500 units SC Q7D [facility] Last Admin: 03/23/18 17:19 Dose: 7,500 units Famotidine (Pepcid) 20 mg PO DAILY [facility] Last Admin: 03/25/18 09:02 Dose: 20 mg Guaifenesin/Dextromethorphan (Robitussin Dm) 10 ml PO Q6H PRN PRN Reason: Cough Last Admin: 03/24/18 20:46 Dose: 10 ml Loperamide HCl (Imodium) 2 mg PO PRN PRN PRN Reason: Diarrhea/Loose Stools Melatonin (Melatonin) 3 mg PO HSPRN PRN PRN Reason: Insomnia Last Admin: 03/24/18 20:46 Dose: 3 mg Ondansetron HCl (Zofran Odt) 4 mg PO Q6H PRN PRN Reason: Nausea/Vomiting Ondansetron HCl (Zofran) 4 mg IVP Q6H PRN PRN Reason: Nausea/Vomiting Last Admin: 03/24/18 20:59 Dose: 4 mg Oxcarbazepine (Trileptal) 600 mg PO BID [facility] Last Admin: 03/25/18 09:03 Dose: 600 mg Saccharomyces Boulardii (Florastor) 250 mg PO DAILY [facility] Last Admin: 03/25/18 09:02 Dose: 250 mg Sodium Chloride (Flush - Normal Saline) 10 ml IVF Q12HR [facility] Last Admin: 03/25/18 09:03 Dose: 10 ml Sodium Chloride (Flush - Normal Saline) 10 ml IVF PRN PRN PRN Reason: Saline Flush Vitamin B Complex/Vit C/Folic Acid (Nephro-Maria C Tablet) 1 tab PO DAILY [facility] Last Admin: 03/25/18 09:02 Dose: 1 tab Zolpidem Tartrate (Ambien) 5 mg PO HSPRN PRN PRN Reason: Insomnia
[2018-03-25 09:57] LABS: #Eosinphils 0.1 thou/uL (0.0-0.7); #Lymphocytes 1.1 thou/uL (1.20-3.40); #Monocytes 0.4 thou/uL (0.11-0.59); #Neutrophils 3.6 thou/uL (1.40-6.50); %Basophils 0.1 % (0.0-1.0); %Eosinophils 1.2 % (0.0-10.0); %Lymphocytes 20.8 % (21.0-51.0); %Monocytes 7.3 % (0.0-10.0); %Neutrophils 70.6 % (42.0-75.0); Hemoglobin 9.1 g/dL (14.0-18.0); Mean Corpuscular HGB CONC 32.3 g/dL (32.0-36.0); Mean Corpuscular Hemoglobin 30.9 pg (27.0-31.0); Mean Corpuscular Volume 95.5 fL (78.0-98.0); Mean Platelet Volume 8.9 fL (7.4-10.4); Platelet Count 43 thou/uL (130-400); RBC Distribution Width 15.1 % (11.5-14.5); Red Blood Cell (RBC) Count 2.94 mill/uL (4.70-6.10); White Blood Cell (WBC) Count 5.1 thou/uL (4.8-10.8)
[2018-03-25] MEDS: Guaifenesin DM 100-10/5 ML UDCUP PO PRN ×2 (10:39→22:03)
[2018-03-25] MEDS ORDERED: Cosyntropin 250 MCG VIAL SLOW IVP SCH (11:30)
[2018-03-25] MEDS: Sodium Chloride 0.9% 1,000 ML IV SCH (12:11)
[2018-03-25] MEDS: Melatonin 3 MG TAB PO PRN (22:03)
[2018-03-26] MEDS: Carvedilol 3.125 MG TAB PO SCH ×3 (08:55→16:55)
[2018-03-26] MEDS: Sodium Chloride 0.9% 1,000 ML IV SCH ×2 (08:55→12:55)
[2018-03-26] MEDS: Folic Acid/Vit B Comp W-C PO SCH ×2 (09:30→12:54)
[2018-03-26] MEDS: Famotidine 20 MG TAB PO SCH ×2 (09:30→12:54)
[2018-03-26] MEDS: Amiodarone 200 MG TAB PO SCH ×3 (09:30→21:21)
[2018-03-26] MEDS: Saccharomyces boulardii 250 MG CAP PO SCH ×2 (09:31→12:54)
[2018-03-26] MEDS: OXcarbazepine 300 MG TAB PO SCH ×3 (09:31→21:21)
--- NOTE | 2018-03-26 10:19 | PRG ---
DATE OF SERVICE: 03/26/2018 RENAL MEDICINE. SUBJECTIVE: Mr. Boo is a 47-year-old white male with ESRD and being followed up by the [facility] for his maintenance hemodialysis. The patient is currently undergoing hemodialysis. Due to the low blood pressure, we are minimizing fluid removal. I have done one-hour ultrafiltration and noted that the patient would tolerate the said treatment, this morning, I am at the beside supervising his dialysis. He also became hypotensive last night. He was also found to be in atrial fibrillation. A Cardiology consult will be done regarding possibility of resuming his anticoagulation. He has also thrombocytopenia and an inpatient consultation with Dr. Reed will be done once he is back in town. No other complaints today. OBJECTIVE: VITAL SIGNS: Blood pressure is ranging from 128/90 to 90/70, with heart rate of 118, respiratory rate 16, temperature 97.9, pulse ox 92%. GENERAL: Noted to be awake, alert, comfortable, not in overt distress. SKIN: Adequate turgor. HEENT: He has a pinkish conjunctivae and anicteric sclerae. NECK: No neck mass. No carotid bruits. No JVD. CHEST: No deformities. LUNGS: Clear breath sounds. HEART: Irregularly irregular. No murmur. No gallops. No rubs. ABDOMEN: Globular, soft, and nontender. No masses. EXTREMITIES: No edema. No deformities. MEDICATIONS: Medications of March 26, 2018, were reviewed. LABORATORY DATA: Laboratories of March 25, 2018: White count 5.1, hemoglobin 9.1, platelet count is 43,000. On March 24, 2018; sodium 137, potassium 3.5, chloride 101, carbon dioxide 27, BUN is 14, creatinine 3.71, and albumin is 2.7. ASSESSMENT AND PLAN: 1. Atrial fibrillation - reconsult Cardiology. The plan is to re-image him to make sure he has no evidence of intraabdominal bleed. Consideration for resumption of his Coumadin is being made. 2. End-stage renal disease, stable. We are continuing current hemodialysis regimen. Fluid removal only as tolerated. 3. Hypotension - given volume yesterday. This could be also related from a combination of his atrial fibrillation and decreased EF with this patient. 4. Thrombocytopenia. We will defer to Dr. Reed as an inpatient. 5. Anemia. Continuing weekly Epogen with this patient. 6. Mild hypoxemia - this could be from underlying congestive heart failure with this patient. Job ID: [id number]
--- NOTE | 2018-03-26 10:55 | PDOC.PN ---
- Subjective Encounter Start Date: 03/26/18 Encounter Start Time: 10:54 Subjective: seen & examined in dialysis.feels weak and poorly -: easily SOB.no CP/Abd pain or palpitations -: no BM since admission except one formed small one - Objective Resuscitation Status - Order Detail: 03/23/18 07:56 Resuscitation Status Routine Resuscitation Status: FULL: Full Resuscitation MAR Reviewed: Yes Vital Signs & Weight: Vital Signs (12 hours) Temp Pulse Resp BP Pulse Ox 03/26/18 07:50 92 L 03/26/18 07:12 97.9 F 118 H 16 128/80 92 L 03/26/18 04:02 97.5 F L 73 16 120/80 93 L Weight Weight 243 lb 13.3 oz I&O: 03/25/18 03/26/18 03/27/18 06:59 06:59 06:59 Intake Total 1142 1764 Output Total 325 300 Balance 817 1464 Result Diagrams: 03/25/18 09:29 03/24/18 05:31 Additional Labs: Laboratory Tests 02/21/18 02/25/18 02/28/18 02:45 15:30 05:00 Hgb 8.5 L 9.1 L 8.6 L Plt Count 24 L* 18 L* 22 L* 03/23/18 03/24/18 03/25/18 05:26 05:32 09:29 Hgb 9.6 L 8.6 L 9.1 L Plt Count 54 L 42 L 43 L Phys Exam - Physical Examination Constitutional: NAD pale and ill looking HEENT: PERRLA, moist MMs, sclera anicteric, oral pharynx no lesions Neck: no nodes, no JVD, supple, full ROM Respiratory: no wheezing, no rhonchi b/l rales and reduced at bases Cardiovascular: RRR, no significant murmur Gastrointestinal: soft, non-tender, no distention, positive bowel sounds Musculoskeletal: no edema, pulses present Neurological: non-focal, normal sensation, moves all 4 limbs Psychiatric: normal affect, A&O x 3 Skin: no rash Dx/Plan (1) Hypotension Status: Acute Comment: Suspect hypovolemia. (2) Chronic atrial fibrillation with RVR Code(s): I48.2 - CHRONIC ATRIAL FIBRILLATION Status: Acute Comment: on Amiodarone.BB on hold due to Hypotension (3) Thrombocytopenia Code(s): D69.6 - THROMBOCYTOPENIA, UNSPECIFIED Status: Chronic (4) Antiphospholipid syndrome Code(s): D68.61 - ANTIPHOSPHOLIPID SYNDROME Status: Chronic Comment: Coumadin on hold since 02/13 due to perinephric hematoma (5) Cardiomyopathy Code(s): I42.9 - CARDIOMYOPATHY, UNSPECIFIED Status: Chronic Comment: ECHO 02/13-EF 45%.Non ischemic (6) Chronic systolic congestive heart failure, NYHA class 3 Code(s): I50.22 - CHRONIC SYSTOLIC (CONGESTIVE) HEART FAILURE Status: Chronic (7) H/O tonic-clonic seizures Code(s): Z86.69 - PERSONAL HISTORY OF DIS OF THE NERVOUS SYS AND SENSE ORGANS Status: Chronic Comment: s/o Lobectomy in past (8) HTN (hypertension) Code(s): I10 - ESSENTIAL (PRIMARY) HYPERTENSION Status: Chronic Qualifiers: (9) History of pulmonary embolism Code(s): Z86.711 - PERSONAL HISTORY OF PULMONARY EMBOLISM Status: Chronic Comment: S/P IVC filter (10) Physical deconditioning Code(s): R53.81 - OTHER MALAISE Status: Chronic (11) Fluid overload Code(s): E87.70 - FLUID OVERLOAD, UNSPECIFIED Status: Resolved (12) Gastroenteritis Code(s): K52.9 - NONINFECTIVE GASTROENTERITIS AND COLITIS, UNSPECIFIED Status : Suspected - Plan PT/OT, respiratory therapy, incentive spirometry, DVT proph w/SCDs BP better after witholding meds.? etiology.cardiac/infectious/hypoVolemia -: check blood Cx.?PNA on CXR earlier. check 2 view cxr.not on any Abx now -: recent perinephric hematoma-off of coumadin w high risk for clots/stroke -: chech CT A/P to see resolution.May need Coumadin restarted -: H/H stable so intrabdominal bleed less lilely as a cause of low BP * .HR very high. on amiodarone. Will restart low dose BB and re consult EP for possible ablation etc.Restart coumadin if no bleed on CT. * will need re consult w cardiology and consult w Oncology as platelets also low. * hemodilaysis per nephrology.monitor renal Fx * * Pt very sick and unstable.Not safe for DC home for now.Will change to INPT status Review of Systems - Review of Systems Constitutional: weakness, malaise. negative: fever, chills, sweats, other Respiratory: SOB with Excertion Cardiovascular: negative: chest pain, palpitations, orthopnea, paroxysmal nocturnal dyspnea, edema, light headedness, other Gastrointestinal: negative: Nausea, Vomiting, Abdominal Pain, Diarrhea, Constipation, Melena, Hematochezia, Other Genitourinary: negative: Dysuria, Frequency, Incontinence, Hematuria, Retention , Other Musculoskeletal: negative: Neck Pain, Shoulder Pain, Arm Pain, Back Pain, Hand Pain, Leg Pain, Foot Pain, Other Neurological: negative: Weakness, Numbness, Incoordination, Change in Speech, Confusion, Seizures, Other - Medications/Allergies Allergies/Adverse Reactions: Allergies Allergy/AdvReac Type Severity Reaction Status Date / Time phenytoin sodium Allergy Severe Emesis Verified 03/23/18 17:23 [From Dilantin] phenytoin sodium extended Allergy Severe Emesis Verified 03/23/18 17:23 [From Dilantin] midazolam HCl [From Versed] Allergy Intermediate swelling Verified 03/23/18 17: 23 Medications: Current Medications Acetaminophen (Tylenol) 1,000 mg PO Q6H PRN PRN Reason: Moderate to Severe Pain (6-10) Last Admin: 03/24/18 20:46 Dose: 1,000 mg Amiodarone HCl (Cordarone) 200 mg PO BID [facility] Last Admin: 03/26/18 09:30 Dose: Not Given Calcium Carbonate (Tums) 1,000 mg PO Q4H PRN PRN Reason: Heartburn or Indigestion Carvedilol (Coreg) 3.125 mg PO BID-[facility] Last Admin: 03/26/18 08:55 Dose: Not Given Cosyntropin (Cortrosyn) 250 mcg SLOW IVP [facility] Last Admin: 03/25/18 14:05 Dose: 250 mcg Epoetin Nain (Procrit) 7,500 units SC Q7D [facility] Last Admin: 03/23/18 17:19 Dose: 7,500 units Famotidine (Pepcid) 20 mg PO DAILY [facility] Last Admin: 03/26/18 09:30 Dose: Not Given Guaifenesin/Dextromethorphan (Robitussin Dm) 10 ml PO Q6H PRN PRN Reason: Cough Last Admin: 03/25/18 22:03 Dose: 10 ml Sodium Chloride (Normal Saline 0.9%) 1,000 mls @ 50 mls/hr IV .Q20H [facility] Last Admin: 03/26/18 08:55 Dose: Not Given Loperamide HCl (Imodium) 2 mg PO PRN PRN PRN Reason: Diarrhea/Loose Stools Melatonin (Melatonin) 3 mg PO HSPRN PRN PRN Reason: Insomnia Last Admin: 03/25/18 22:03 Dose: 3 mg Ondansetron HCl (Zofran Odt) 4 mg PO Q6H PRN PRN Reason: Nausea/Vomiting Ondansetron HCl (Zofran) 4 mg IVP Q6H PRN PRN Reason: Nausea/Vomiting Last Admin: 03/24/18 20:59 Dose: 4 mg Oxcarbazepine (Trileptal) 600 mg PO BID [facility] Last Admin: 03/26/18 09:31 Dose: Not Given Saccharomyces Boulardii (Florastor) 250 mg PO DAILY [facility] Last Admin: 03/26/18 09:31 Dose: Not Given Sodium Chloride (Flush - Normal Saline) 10 ml IVF Q12HR [facility] Last Admin: 03/26/18 09:31 Dose: Not Given Sodium Chloride (Flush - Normal Saline) 10 ml IVF PRN PRN PRN Reason: Saline Flush Last Admin: 03/25/18 12:12 Dose: 10 ml Vitamin B Complex/Vit C/Folic Acid (Nephro-Maria C Tablet) 1 tab PO DAILY [facility] Last Admin: 03/26/18 09:30 Dose: Not Given Zolpidem Tartrate (Ambien) 5 mg PO HSPRN PRN PRN Reason: Insomnia
[2018-03-26] MEDS ORDERED: Heparin 1,000 UNITS/ML VIAL ONE (11:11)
[2018-03-26] MEDS: Guaifenesin DM 100-10/5 ML UDCUP PO PRN ×2 (13:07→21:20)
[2018-03-26] MEDS ORDERED: Digoxin 0.5 MG/2 ML AMP SLOW IVP SCH (14:00)
--- NOTE | 2018-03-26 14:07 | DIS ---
DATE OF ADMISSION: 03/26/2018 DATE OF DISCHARGE: DISCHARGE SUMMARY ADDENDUM: PRIMARY CARE PHYSICIAN: Rossana Blanc MD Please see my discharge summary dictated yesterday, on March 24, for more details. After that, I have discontinued losartan because the patient is running low blood pressure. This patient stayed overnight, but he did not have any diarrhea. He is not able to provide any stool sample because his diarrhea stopped. His examination is unremarkable. He had dialysis yesterday. At this point, the patient is completely medically stable for discharge, and he needs to follow up with primary care physician on an outpatient basis. Necessary patient education is given. The patient is seen and examined at bedside today. Please see my progress note from today for further details. Job ID: [id number]
--- NOTE | 2018-03-26 16:58 | EKG ---
Test Reason : Blood Pressure : / mmHG Vent. Rate : 101 BPM Atrial Rate : 098 BPM P-R Int : 000 ms QRS Dur : 126 ms QT Int : 418 ms P-R-T Axes : 000 006 187 degrees QTc Int : 542 ms Atrial fibrillation with rapid ventricular response Non-specific intra-ventricular conduction block T wave abnormality, consider inferolateral ischemia or digitalis effect Abnormal ECG Confirmed by ULI HERNANDEZ ([id number]), makeup editor MAL KHALIL ([id number]) on 03/26/2018 4:58:08 PM Referred By: Confirmed By:ULI HERNANDEZ
--- NOTE | 2018-03-26 17:02 | RAD ---
CHEST TWO VIEWS: 03/26/18 HISTORY: Pneumonia. Followup. COMPARISON: 03/23/18. FINDINGS: The cardiac silhouette is magnified and enlarged. Pulmonary vasculature is slightly more engorged wit h slight interval increase in widespread patchy parenchymal opacity involving each lobe. No evidence of pneumothorax. Mediastinum is midline with dialysis catheter. alarm security or surveillance monitor leads overlie the [address]. IMPRESSION: Slight interval increase in widespread air space disease and pulmonary vascular congestion. POS: BST
--- NOTE | 2018-03-26 17:12 | CT ---
CT ABDOMEN AND PELVIS NONCONTRAST: 03/26/18 HISTORY: Retroperitoneal hematoma. Followup. COMPARISON: 01/26/18. FINDINGS: Dense parenchymal infiltrate at each lung base with small amount of bilateral pleural fluid. An infer ior vena cava filter is in place. Each renal collecting system, ureter, and urinary bladder are decompressed without stone evident. Lack of contrast limits evaluation for other abnormalities. Small right renal cysts and other chronic type findings are stable. Centered along the lateral cortex of the left kidney, the large heterogeneous mixed density fluid co llection consistent with hematoma is again visualized. It now measures up to 10.7 cm length where it was previously 16.9. The adjacent fluid within the retroperitoneum has decreased also. Metallic coils are present at the left renal vessels. No new abdominal hematomas are apparent. IMPRESSION: Left renal and retroperitoneal hematoma remains large but is significantly smaller than on the previo us study from 01/26/18. No new intra-abdominal hemorrhage is evident. Dense bibasilar lung infiltrate with small bilateral pleural effusions. POS: BST
[2018-03-26] MEDS: Melatonin 3 MG TAB PO PRN (21:20)
[2018-03-26] MEDS: Acetaminophen 500 MG TAB PO PRN (21:21)
[2018-03-27] MEDS: Sodium Chloride 0.9% 1,000 ML IV SCH (05:00)
[2018-03-27] MEDS: Guaifenesin DM 100-10/5 ML UDCUP PO PRN (05:17)
[2018-03-27] MEDS: Carvedilol 3.125 MG TAB PO SCH ×2 (09:39→17:54)
[2018-03-27] MEDS: Folic Acid/Vit B Comp W-C PO SCH (09:39)
[2018-03-27] MEDS: Famotidine 20 MG TAB PO SCH (09:39)
[2018-03-27] MEDS: OXcarbazepine 300 MG TAB PO SCH ×2 (09:39→21:23)
[2018-03-27] MEDS: Amiodarone 200 MG TAB PO SCH ×2 (09:39→21:24)
[2018-03-27] MEDS: Saccharomyces boulardii 250 MG CAP PO SCH (09:40)
--- NOTE | 2018-03-27 09:47 | PRG ---
DATE OF SERVICE: 03/27/2018 RENAL MEDICINE SUBJECTIVE: Mr. Boo is a 47-year-old white male with known history of ESRD, on currently maintenance hemodialysis. He underwent hemodialysis with ultrafiltration yesterday. The fluid removal was somewhat limited due to his hypotension. Please note, he is currently in atrial fibrillation. Cardiology consult has been done. A repeat CT scan of the abdomen and pelvis was done to follow up on the renal bleeding that the patient had several weeks ago. Currently, the left renal and retroperitoneal hematoma still is large, but smaller when compared previously. He does complain of cough. He was also noted to be on the hypoxemic side earlier. Currently, his oxygenation is much improved at 96% on 3.5 L of nasal cannula. OBJECTIVE: VITAL SIGNS: Blood pressure is 109/74, heart rate 114, respiratory rate 20, temperature 98.9, pulse ox 96%. GENERAL: Noted to be awake, supine, comfortable. Not in overt distress. SKIN: Adequate turgor. HEENT: Pinkish conjunctivae. Anicteric sclerae. NECK: No neck mass. No carotid bruits. No JVD. CHEST: No deformities. LUNGS: Decreased breath sounds. HEART: Tachycardic, irregular. ABDOMEN: Globular, soft, nontender. No masses. EXTREMITIES: Trace edema. MEDICATIONS: Medications of March 27, 2018, reviewed. LABORATORY DATA: Laboratories of March 25, 2018, white count 5.1, hemoglobin 9.1. March 24, 2018, BUN 14, creatinine 3.71. ASSESSMENT AND PLAN: 1. Cough. Start Tessalon Perles 100 mg p.o. t.i.d. 2. Chronic anemia, on weekly Epogen. 3. End stage renal disease. Continuing three times a week hemodialysis. No indication for any emergent hemodialysis today. 4. Atrial fibrillation - reconsult Cardiology for ? of repeat anticoagulation. Overall, prognosis remains guarded. Job ID: [id number]
[2018-03-27 09:58] LABS: Actual Bicarbonate (HCO3a) 26.1 mEq/L (22-28); Base Excess (BEa) 2.6 mEq/L (-2.0 to +3.0); CO2 Tension 35.5 mmHg (35.0-45.0); Carboxyhemoglobin (COHb) 1.8 gm% (0.0-3.0); Hemoglobin (Hb) 8.8 g/dL (14.0-18.0); Potassium - ABG Lab 3.57 mmol/L (3.70-5.30); pH, Arterial 7.48 (7.35-7.45)
[2018-03-27 09:59] LABS: ALV-art Gradient 133.985 (0-20); O2 Tension (PaO2) 49.8 mmHg (80.0-100.0); Puncture Site RRA
[2018-03-27] MEDS ORDERED: HOLD VANCOMYCIN FOR LEVEL >20 FS SCH (12:15)
[2018-03-27] MEDS ORDERED: Vancomycin HCl 750 MG in Sodium Chloride 0.9% 250 ML 250 ML IVPB SCH (12:15)
[2018-03-27] MEDS ORDERED: Vancomycin HCl 1.5 GM in Sodium Chloride 0.9% 250 ML 300 ML IVPB SCH (12:15)
[2018-03-27] MEDS ORDERED: Vancomycin HCl 1.25 GM in Sodium Chloride 0.9% 250 ML 250 ML IVPB SCH (12:15)
[2018-03-27] MEDS ORDERED: Vancomycin HCl 1 GM in Premix Bag 1 BAG IVPB SCH (12:15)
[2018-03-27] MEDS: Cefepime 1 GM in Sodium Chloride 0.9% 100 ML IVPB SCH (12:44)
--- NOTE | 2018-03-27 12:47 | CON ---
DATE OF CONSULTATION: REASON FOR CONSULTATION: Chronic thrombocytopenia and antiphospholipid syndrome. HISTORY OF PRESENT ILLNESS: A 47-year-old male with antiphospholipid syndrome, chronic thrombocytopenia, end-stage renal disease, and atrial fibrillation, presenting to the hospital with nausea, vomiting, and diarrhea. The patient has also been complaining of excessive cough, sometimes productive of sputum with streaks of blood, which has been present since before discharge from rehab. Since admission, nausea, vomiting, and diarrhea have resolved. However, he still has excessive cough and states this is causing him pain and severe fatigue. He also has shortness of breath, but denies any fevers or chills. Chest x-ray showed fluid overload. Of note, the patient has followed with Dr. Reed years ago for antiphospholipid syndrome and chronic thrombocytopenia, and his low platelets were thought to be partly caused by his antiphospholipid syndrome. The patient was admitted to the hospital in January and was found to have a large retroperitoneal hematoma while on heparin drip up to [address] of the abdomen and pelvis now shows the hematoma to be approximately 10 cm, which is improved. His platelets are currently 43, and he has not been on his Coumadin for months. He does have a history of DVT and PE and has an IVC filter. REVIEW OF SYSTEMS: 10-point review of systems negative except as per HPI. PAST MEDICAL HISTORY: DVT; pulmonary embolism; antiphospholipid syndrome; chronic thrombocytopenia; mitral valve prolapse; chronic systolic heart failure with EF around 40%; end-stage renal disease, on dialysis; hypertension; gout; morbid obesity; and atrial fibrillation. PAST SURGICAL HISTORY: Dialysis access, IVC filter, cardiac catheterization. SOCIAL HISTORY: Lives at home with family. He is , has a daughter. No tobacco, alcohol, or illicit drug use. FAMILY HISTORY: No family history of kidney disease, stroke, or cancer. ALLERGIES: DILANTIN AND VERSED. CURRENT MEDICATIONS: Reviewed. PHYSICAL EXAMINATION: VITAL SIGNS: Temperature 98.9, pulse 114, respirations 20, saturating 96%, on 3-1/2 L by nasal cannula, and blood pressure 109/74. GENERAL APPEARANCE: The patient is lying in bed, in moderate distress. Coughing. HEENT: Normocephalic, atraumatic. No scleral icterus. NECK: Supple without JVD. LUNGS: Mildly labored without any wheezing. CARDIAC: S1 and S2. Irregular and tachycardic. ABDOMEN: Soft, nondistended, and nontender. BACK: No CVA tenderness on the left side. EXTREMITIES: Moves all extremities. Lower extremities have 1+ edema with some chronic venous stasis changes. SKIN: Chronic venous stasis changes as above. No petechiae noted. LYMPHATICS: No palpable lymphadenopathy. NEUROLOGIC: Cranial nerves 2 through 12 are grossly intact. PSYCHIATRIC: Awake, alert, and oriented x3 with appropriate mood and affect. LABORATORY DATA: White blood cells 5.1, hemoglobin 9.1, and platelets 43. Sodium 137, potassium 3.5, BUN 14, creatinine 3.71, and albumin 2.7. IMAGING DATA: CT abdomen and pelvis without contrast shows centered along the lateral cortex of the left kidney, the large heterogeneous mixed density fluid collection consistent with hematoma is again visualized and measures up to 10.7 cm and previously it was 16.9 cm. The adjacent fluid within the retroperitoneum has decreased as well. No new intraabdominal hemorrhage is evident. There are dense bibasilar lung infiltrates with small bilateral pleural effusions. Chest x-ray shows a slight interval increase in widespread airspace disease and pulmonary vascular congestion. ASSESSMENT AND PLAN: A 47-year-old male with antiphospholipid syndrome and chronic thrombocytopenia, end-stage renal disease, and atrial fibrillation, presenting to the hospital with nausea, vomiting, and diarrhea, which have resolved and acute on chronic cough that is worsening. The patient has been on Coumadin for his antiphospholipid syndrome, which he has now been off for months secondary to a large left retroperitoneal hematoma. This hematoma has improved from 16.9 to 10.7 cm, and the patient's platelets are currently 43. It is not safe at this time to restart Coumadin given the large hematoma and platelets being less than 50. If the hematoma continues to decrease in size and platelets are above 50, then he may resume Coumadin at that point. EP has been consulted for evaluation of his atrial fibrillation, and if any procedures or surgeries are planned, then we would recommend platelets at least greater than 50 and possibly 100. The patient may be transfused platelets for these indications. The patient may continue to follow up with Dr. Reed as an outpatient for his chronic thrombocytopenia, which is likely partially caused from antiphospholipid syndrome and some splenomegaly seen prior. This is also partly consumptive due to the hematoma. We will sign off. Please call me for any questions. Thank you for this consult. Job ID: [id number]
--- NOTE | 2018-03-27 12:53 | PDOC.PN ---
- Subjective Encounter Start Date: 03/27/18 Encounter Start Time: 09:45 Subjective: c/o cough and sob -: no chest pain or palp -: had urinary and stool incontinence - Objective Resuscitation Status - Order Detail: 03/23/18 07:56 Resuscitation Status Routine Resuscitation Status: FULL: Full Resuscitation MAR Reviewed: Yes Vital Signs & Weight: Vital Signs (12 hours) Temp Pulse Resp BP Pulse Ox 03/27/18 12:05 100 03/27/18 11:50 98.5 F 109 H 20 115/71 100 03/27/18 08:15 98.9 F 114 H 20 109/74 96 03/27/18 04:00 97.6 F 106 H 20 120/77 92 L Weight Weight 253 lb 4.8 oz I&O: 03/26/18 03/27/18 03/28/18 06:59 06:59 06:59 Intake Total 1764 1490 Output Total 300 1100 Balance 1464 390 Result Diagrams: 03/25/18 09:29 03/24/18 05:31 Phys Exam - Physical Examination HEENT: PERRLA, moist MMs Neck: supple, full ROM Respiratory: no wheezing, no rales rhonchi++ Cardiovascular: no significant murmur, irregular Gastrointestinal: soft, non-tender, positive bowel sounds Musculoskeletal: no edema, pulses present Neurological: non-focal, moves all 4 limbs Psychiatric: normal affect, A&O x 3 Dx/Plan (1) Acute respiratory failure with hypoxia Code(s): J96.01 - ACUTE RESPIRATORY FAILURE WITH HYPOXIA Status: Acute (2) Acute exacerbation of CHF (congestive heart failure) Code(s): I50.9 - HEART FAILURE, UNSPECIFIED Status: Acute Qualifiers: Heart failure type: combined systolic and diastolic Qualified Code(s): I50.43 - Acute on chronic combined systolic (congestive) and diastolic ( congestive) heart failure (3) PNA (pneumonia) Code(s): J18.9 - PNEUMONIA, UNSPECIFIED ORGANISM Status: Suspected Qualifiers: Pneumonia type: due to unspecified organism Laterality: bilateral (4) Antiphospholipid syndrome Code(s): D68.61 - ANTIPHOSPHOLIPID SYNDROME Status: Chronic Comment: Coumadin on hold since 02/13 due to perinephric hematoma (5) Atrial fibrillation Code(s): I48.91 - UNSPECIFIED ATRIAL FIBRILLATION Status: Chronic Qualifiers: Atrial fibrillation type: paroxysmal (6) Cardiomyopathy Code(s): I42.9 - CARDIOMYOPATHY, UNSPECIFIED Status: Chronic Comment: ECHO 02/13-EF 45%.Non ischemic (7) Chronic systolic congestive heart failure, NYHA class 3 Code(s): I50.22 - CHRONIC SYSTOLIC (CONGESTIVE) HEART FAILURE Status: Chronic (8) Gout Code(s): M10.9 - GOUT, UNSPECIFIED Status: Chronic Qualifiers: Gout site: unspecified site (9) HTN (hypertension) Code(s): I10 - ESSENTIAL (PRIMARY) HYPERTENSION Status: Chronic Qualifiers: (10) History of pulmonary embolism Code(s): Z86.711 - PERSONAL HISTORY OF PULMONARY EMBOLISM Status: Chronic Comment: h/o IVC filter (11) Physical deconditioning Code(s): R53.81 - OTHER MALAISE Status: Chronic (12) Seizure disorder Code(s): G40.909 - EPILEPSY, UNSP, NOT INTRACTABLE, WITHOUT STATUS EPILEPTICUS Status: Chronic (13) Thrombocytopenia Code(s): D69.6 - THROMBOCYTOPENIA, UNSPECIFIED Status: Chronic (14) Gastroenteritis Code(s): K52.9 - NONINFECTIVE GASTROENTERITIS AND COLITIS, UNSPECIFIED Status : Suspected (15) Fluid overload Code(s): E87.70 - FLUID OVERLOAD, UNSPECIFIED Status: Acute - Plan has decompensate chf at present, unclear if he has underlying pna -: HD with vol removal, had one yesterday -: on cefepime and vanc, nebs -: repeat cxr -: bipap. H/o noncompliance with meds per prior records * . continue amiodarone, coreg, trileptal, dc iv fluids. Review of Systems - Medications/Allergies Allergies/Adverse Reactions: Allergies Allergy/AdvReac Type Severity Reaction Status Date / Time phenytoin sodium Allergy Severe Emesis Verified 03/23/18 17:23 [From Dilantin] phenytoin sodium extended Allergy Severe Emesis Verified 03/23/18 17:23 [From Dilantin] midazolam HCl [From Versed] Allergy Intermediate swelling Verified 03/23/18 17: 23 Medications: Current Medications Acetaminophen (Tylenol) 1,000 mg PO Q6H PRN PRN Reason: Moderate to Severe Pain (6-10) Last Admin: 03/26/18 21:21 Dose: 1,000 mg Amiodarone HCl (Cordarone) 200 mg PO BID [facility] Last Admin: 03/27/18 09:39 Dose: 200 mg Benzonatate (Tessalon) 100 mg PO TID [facility] Calcium Carbonate (Tums) 1,000 mg PO Q4H PRN PRN Reason: Heartburn or Indigestion Carvedilol (Coreg) 3.125 mg PO BID-[facility] Last Admin: 03/27/18 09:39 Dose: 3.125 mg Cosyntropin (Cortrosyn) 250 mcg SLOW IVP [facility] Last Admin: 03/25/18 14:05 Dose: 250 mcg Epoetin Nain (Procrit) 7,500 units SC Q7D [facility] Last Admin: 03/23/18 17:19 Dose: 7,500 units Famotidine (Pepcid) 20 mg PO DAILY [facility] Last Admin: 03/27/18 09:39 Dose: 20 mg Guaifenesin/Dextromethorphan (Robitussin Dm) 10 ml PO Q6H PRN PRN Reason: Cough Last Admin: 03/27/18 05:17 Dose: 10 ml Cefepime HCl 1 gm/ Sodium (Chloride) 100 mls @ 200 mls/hr IVPB Q24HR@1300 [facility] Last Admin: 03/27/18 12:44 Dose: 100 mls Vancomycin HCl 1.5 gm/ Sodium (Chloride) 300 mls @ 200 mls/hr IVPB [facility] Vancomycin HCl 1.25 gm/ Sodium (Chloride) 250 mls @ 166.667 mls/hr IVPB [facility] Vancomycin HCl 1 gm/ Device 200 mls @ 200 mls/hr IVPB [facility] Vancomycin HCl 750 mg/ Sodium (Chloride) 250 mls @ 250 mls/hr IVPB [facility] Vancomycin HCl 2 gm/ Sodium (Chloride) 500 mls @ 250 mls/hr IVPB 1400 [facility] Stop: 03/27/18 17:00 Loperamide HCl (Imodium) 2 mg PO PRN PRN PRN Reason: Diarrhea/Loose Stools Melatonin (Melatonin) 3 mg PO HSPRN PRN PRN Reason: Insomnia Last Admin: 03/26/18 21:20 Dose: 3 mg Hold Vancomycin For (Level >20) 0 each FS .AT DIALYSIS [facility] Ondansetron HCl (Zofran Odt) 4 mg PO Q6H PRN PRN Reason: Nausea/Vomiting Ondansetron HCl (Zofran) 4 mg IVP Q6H PRN PRN Reason: Nausea/Vomiting Last Admin: 03/24/18 20:59 Dose: 4 mg Oxcarbazepine (Trileptal) 600 mg PO BID [facility] Last Admin: 03/27/18 09:39 Dose: 600 mg Saccharomyces Boulardii (Florastor) 250 mg PO DAILY [facility] Last Admin: 03/27/18 09:40 Dose: 250 mg Sodium Chloride (Flush - Normal Saline) 10 ml IVF Q12HR [facility] Last Admin: 03/27/18 09:40 Dose: 10 ml Sodium Chloride (Flush - Normal Saline) 10 ml IVF PRN PRN PRN Reason: Saline Flush Last Admin: 03/25/18 12:12 Dose: 10 ml Vitamin B Complex/Vit C/Folic Acid (Nephro-Maria C Tablet) 1 tab PO DAILY [facility] Last Admin: 03/27/18 09:39 Dose: 1 tab Zolpidem Tartrate (Ambien) 5 mg PO HSPRN PRN PRN Reason: Insomnia
[2018-03-27 13:07] LABS: INR-International Normal Ratio 1.1; Prothrombin Time 14.4 SEC (12.0-14.7)
[2018-03-27 13:10] LABS: #Eosinphils 0.1 thou/uL (0.0-0.7); #Lymphocytes 0.7 thou/uL (1.20-3.40); #Monocytes 0.3 thou/uL (0.11-0.59); %Basophils 0.3 % (0.0-1.0); %Lymphocytes 13.2 % (21.0-51.0); %Monocytes 6.3 % (0.0-10.0); %Neutrophils 79.2 % (42.0-75.0); Mean Corpuscular HGB CONC 33.4 g/dL (32.0-36.0); Mean Corpuscular Hemoglobin 31.4 pg (27.0-31.0); Mean Corpuscular Volume 94.1 fL (78.0-98.0); Mean Platelet Volume 8.7 fL (7.4-10.4); Platelet Count 45 thou/uL (130-400); Red Blood Cell (RBC) Count 2.55 mill/uL (4.70-6.10); White Blood Cell (WBC) Count 5.1 thou/uL (4.8-10.8)
[2018-03-27 13:19] LABS: PTT 68.1 SEC (22.9-36.1)
[2018-03-27 13:24] LABS: ALT (SGPT) 10 U/L (8-55); AST (SGOT) 13 U/L (5-34); Albumin 2.7 g/dL (3.5-5.0); Alkaline Phosphatase 87 U/L (40-150); Anion Gap 13 mmol/L (10-20); BUN (Urea Nitrogen) 16 mg/dL (8.9-20.6); Bilirubin, Total 0.7 mg/dL (0.2-1.2); Calc. Creatinine Clearance 44 mL/min (70-130); Calcium 8.3 mg/dL (7.8-10.44); Carbon Dioxide 26 mmol/L (22-29); Chloride 98 mmol/L (98-107); Estimated GFR-MDRD 20; Globulin 2.8 g/dL (2.4-3.5); Glucose 89 mg/dL (70-105); Protein, Total 5.5 g/dL (6.0-8.3); Sodium 133 mmol/L (136-145)
--- NOTE | 2018-03-27 13:54 | RAD ---
CHEST 1 VIEW: HISTORY: Dyspnea. Followup. COMPARISON: 03/26/2018. FINDINGS: Cardiac silhouette is magnified by projection. Pulmonary vasculature is more engorged with worsening widespread reticulonodular infiltrate and patchy bibasilar infiltrates. Mediastinum is midline. No evidence of pneumothorax. IMPRESSION: Worsening pulmonary edema. POS: [facility]
--- NOTE | 2018-03-27 17:30 | CON ---
DATE OF CONSULTATION: 03/27/2018 SERVICE: Pulmonary Medicine. REASON FOR CONSULTATION: Respiratory failure. HISTORY OF PRESENT ILLNESS: The patient is a pleasant 47-year-old white male with past medical history significant for end-stage renal disease. He is in his usual state of health until he presented to the hospital on the March 23 with complaints of increasing cough, and shortness of breath. He is also having findings consistent with gastroenteritis. He was given some IV fluids, and other supportive measures were continued. On the , he had a chest x-ray that demonstrated some mild volume overload changes. Throughout the hospital stay, he was put on broad-spectrum antibiotics and given multiple boluses of fluid from marginal blood pressures. Ultimately, he developed increasing respiratory failure. On the March 26, he had a CT of the abdomen and pelvis, which demonstrated extensive infiltrates in the bibasilar regions as well as bilateral pleural effusions. Today, the patient had increasing respiratory distress. As such, he was initiated on BiPAP and brought to the IMCU. On the BiPAP, the patient's breathing improved significantly. He denies any current fevers, chills, nausea, vomiting, or diarrhea. He is otherwise returning to his usual state of health, but he is having a severe cough. PAST MEDICAL HISTORY: 1. Antiphospholipid antibody syndrome. 2. History of DVT/PE. 3. Chronic systolic heart failure (EF 40%). 4. Hypertension. 5. Dyslipidemia. 6. Gout. 7. End-stage renal disease, unknown cause. PAST SURGICAL HISTORY: 1. Cardiac catheterization. 2. Dialysis creation. 3. IVC filter placement. SOCIAL HISTORY: Negative for alcohol, tobacco, or illicit drug use. He is and has a daughter. He has no exposure to chemicals, dust, asbestos, or tuberculosis. FAMILY HISTORY: Noncontributory. ALLERGIES: LAST, VERSED. MEDICATIONS: List of his inpatient medications was reviewed. No specific updates were made at this time. REVIEW OF SYSTEMS: General, head, ears, eyes, nose, throat, cardiovascular, respiratory, GI, , musculoskeletal, neurologic, and skin are negative except as mentioned in the HPI. PHYSICAL EXAMINATION: VITAL SIGNS: Afebrile, pulse 109, blood pressure 115/71, respirations 20, and saturation 100% on 2.5 L nasal cannula. HEENT: Normocephalic and atraumatic. Sclerae white. Conjunctivae pink. Oral mucosa is moist without lesions. LUNGS: Decent air entry. There is no prolonged expiratory phase or wheezing present. There are extensive crackles throughout bibasilar lung coburn. HEART: Normal rate and regular. ABDOMEN: Soft, nontender, and nondistended. Bowel sounds are positive. MUSCULOSKELETAL: No cyanosis or clubbing. There is trace pitting in the bilateral lower extremities. LABORATORY DATA: WBC 5.1, hemoglobin 8.0, platelets 45,000. INR 1.1. pH 7.48, pCO2 of 35, pO2 of 50. Basic metabolic profile is essentially unremarkable except for creatinine of 3.4. BNP 1800, which is in historic high for this patient. Stool studies are unremarkable. Recent ANCAs, VERONICA, rheumatoid factor, were unremarkable. Anti-parietal cell antibodies are consistently elevated. Prior VERONICA screens were positive. HIV has been nonreactive multiple times. Hepatitis serologies have also been unremarkable. IMAGING STUDIES: Chest x-ray demonstrates extensive bibasilar infiltrates, consistent with cardiogenic pulmonary edema. CT of the abdomen and pelvis demonstrates extensive ground-glass opacifications , no overt consolidating lesions with interstitial fullness, bilateral pleural effusions, consistent with volume overload. Echocardiogram demonstrates an ejection fraction of 40% with 1/3 diastolic dysfunction. Atrium was historically dilated. ASSESSMENT: 1. Acute hypoxic respiratory failure. 2. Acute on chronic systolic and diastolic heart failure. 3. Abnormal CT findings including interstitial fullness, ground-glass opacifications, overt consolidating lesions, and bilateral pleural effusions. 4. Antiphospholipid antibody syndrome, off anticoagulation because of a recent retroperitoneal hematoma. 5. End-stage renal disease. DISCUSSION AND PLAN: We need to work on keeping the patient close to euvolemia. At this point, I am doubtful that a true infection exists here. The chest x-ray is gotten worse throughout the course of this hospital stay. As such, I do believe this is a volume mediated event. He recently had an VERONICA, and ANCA studies that were unremarkable. He also had a rheumatoid factor study that was unremarkable. I will round off his inflammatory lung disease workup off with an antibody, and a IgG4 level. I am doubtful these things will be abnormal. If they are, a course of steroids could be entertained. At this point, we will try to minimize fluids through time. In the outpatient setting, he may benefit from sleep apnea evaluation. 70 minutes have been devoted to this patient in various activities. I personally reviewed all imaging studies and laboratory data noted within this document. For fifty percent of this time, I was interacting with the patient at the bedside or coordinating care with the care team. For the remainder of the time I was immediately available to the patient in the hospital unit. Job ID: [id number] [id number]
[2018-03-27] MEDS: Benzonatate 100 MG CAP PO SCH ×2 (18:09→21:24)
--- NOTE | 2018-03-27 19:13 | CON ---
DATE OF CONSULTATION: REASON FOR CONSULTATION: Congestive heart failure. HISTORY OF PRESENT ILLNESS: Mr. Boo is a 47-year-old gentleman who is a patient Dr. Zane Jefferson. He has a previous history of diastolic and systolic dysfunction. Last echo performed dated 01/27/2018 with LVEF 40% to 45%. He did have mild concentric LVH. He recently had increase in respiratory distress. He is transferred from telemetry monitoring over to the [facility] for close observation. He was placed on BiPAP. No chest pain or pressure noted. PAST MEDICAL HISTORY: 1. End-stage renal disease. 2. Hypertension. 3. Systolic and diastolic dysfunction. 4. Seizure disorder. 5. Gout. 6. PE, DVT. 7. Recent retroperitoneal hematoma. 8. Schizoaffective disorder. 9. Diabetes mellitus. 10. Partial lobectomy. SOCIAL HISTORY: No current tobacco or alcohol use. He is currently . ALLERGIES: DILANTIN AND VERSED. HOME MEDICATIONS: 1. Colchicine. 2. Lasix. 3. Loratadine. 4. Timolol. 5. Toprol. 6. Coumadin. REVIEW OF SYSTEMS: A 10-point review of systems is reviewed and as above, otherwise negative. PHYSICAL EXAMINATION: VITAL SIGNS: Blood pressure 115/71; pulse 109; and temperature, afebrile. GENERAL: Patient is a pleasant male who is in no acute distress. The patient appears older than stated age. NEUROLOGIC: The patient is alert and oriented x3 with no focal neurologic deficits. HEENT: Sclerae without icterus. Mouth has moist mucous membranes with normal pallor. NECK: No JVD. Carotid upstroke brisk. No bruits bilaterally. LUNGS: Crackles noted bilaterally. BACK: No scoliosis or kyphosis. CARDIAC: Regular rate and rhythm with normal S1 and S2. No S3 or S4 noted. No significant rubs, murmurs, thrills, or gallops noted throughout the precordium. PMI is not displaced. There is no parasternal heave. ABDOMEN: Soft, nontender, nondistended. No peritoneal signs present. No hepatosplenomegaly. No abnormal striae. EXTREMITIES: 2+ femoral and 2+ dorsalis pedis pulses. No cyanosis, clubbing, or edema. SKIN: No gross abnormalities. LABORATORY DATA: IMAGING RESULTS: Chest x-ray shows pulmonary congestion. LABORATORY RESULTS: Pertinent labs; hemoglobin 8, white blood cell count 5.1. Creatinine 3.4. Troponin 0.076. IMPRESSION: 1. Respiratory distress, now on BiPAP. 2. Acute on chronic diastolic and systolic dysfunction. 3. End-stage renal disease. 4. Previous pulmonary embolism. 5. Antiphospholipid antibody syndrome. RECOMMENDATIONS: At this point, I would recommend continuing on BiPAP. He seems to be comfortable on BiPAP. May need to decrease his dialysis for better negative balance. He has been getting increased fluid over the last several days. He has been treated with antibiotics for possible pneumonia. At this point, recommend close observation. Continue amiodarone therapy at 200 mg b.i.d. We will consider decreasing it to 200 once a day. Job ID: [id number]
[2018-03-27] MEDS: Ondansetron ODT 4 MG TAB PO PRN (21:37)
[2018-03-28] MEDS: Benzonatate 100 MG CAP PO SCH ×3 (08:50→20:32)
[2018-03-28] MEDS: Famotidine 20 MG TAB PO SCH (08:50)
[2018-03-28] MEDS: Saccharomyces boulardii 250 MG CAP PO SCH (08:50)
[2018-03-28] MEDS: Amiodarone 200 MG TAB PO SCH ×2 (08:50→20:32)
[2018-03-28] MEDS: Carvedilol 3.125 MG TAB PO SCH ×2 (08:50→16:19)
[2018-03-28] MEDS: OXcarbazepine 300 MG TAB PO SCH ×2 (08:50→20:32)
[2018-03-28] MEDS: Folic Acid/Vit B Comp W-C PO SCH (08:51)
[2018-03-28] MEDS ORDERED: Vancomycin HCl 1 GM in Premix Bag 1 BAG IVPB SCH (09:00)
--- NOTE | 2018-03-28 10:25 | PRG ---
DATE OF SERVICE: 03/28/2018 SUBJECTIVE: Mr. Boo is a 47-year-old white man with ESRD and followed by the [facility] for his maintenance hemodialysis. He was noted to be hypoxemic last night. Chest x-ray done on March 27, 2018 showed evidence of worsening pulmonary edema. He did receive dialysis the day before yesterday. Our plan is to schedule him for another dialysis session. We will do a 4-hour dialysis with 2 hours of ultrafiltration, 2 hours hemodialysis. He has also been seen by Cardiology and the recommendation is to continue amiodarone for the moment due to his atrial fibrillation. We tried to max out fluid removal on the last dialysis session, but he was not able to tolerate it. OBJECTIVE: VITAL SIGNS: Blood pressure is 111/69, respiratory rate 16, temperature 98.6, and pulse ox 99% on 4 L. GENERAL: The patient is awake, supine, comfortable, not in overt distress. SKIN: Adequate turgor. HEENT: He has a slightly pale conjunctivae. Anicteric sclerae. No neck mass. No carotid bruits. No JVD. CHEST: No deformities. LUNGS: Decreased breath sounds. HEART: Tachycardic, irregular. No murmur. No gallops. No rubs. ABDOMEN: Globular, soft, nontender. No masses. EXTREMITIES: Positive for edema. MEDICATIONS: Medications of March 28, 2018 reviewed. LABORATORY DATA: Laboratories of March 27, 2018; white count 5.1, hemoglobin 8, and platelet count is 45,000. Sodium 133, potassium 4, chloride 98, carbon dioxide 26, BUN 16, creatinine 3.4. BNP is 1848. ASSESSMENT AND PLAN: 1. Congestive heart failure. We will schedule the patient for another extra hemodialysis today. We will attempt to max out fluid removal as tolerated by the patient. 2. End-stage renal disease, currently on Wednesday, , and Wednesday dialysis. As previously mentioned, extra dialysis due to volume overload. 3. Atrial fibrillation, currently on amiodarone. 4. Chronic thrombocytopenia-Hematology consult if needed. Overall, I agree with current management. Job ID: [id number]
--- NOTE | 2018-03-28 11:08 | PDOC.PN ---
- Subjective Encounter Start Date: 03/28/18 Encounter Start Time: 07:30 Subjective: sob better, is sitting on bed, ate his breakfast -: used bipap sporadically last night (its gives dry air?) - Objective Resuscitation Status - Order Detail: 03/23/18 07:56 Resuscitation Status Routine Resuscitation Status: FULL: Full Resuscitation MAR Reviewed: Yes Vital Signs & Weight: Vital Signs (12 hours) Temp Pulse Resp BP BP Pulse Ox 03/28/18 08:27 99 03/28/18 08:19 98.6 F 114 H 16 111/69 99 03/28/18 03:55 99.2 F 112 H 22 H 109/78 98 03/27/18 23:44 98.4 F 111 H 20 114/79 100 Weight Weight 253 lb 4.8 oz I&O: 03/27/18 03/28/18 03/29/18 06:59 06:59 06:59 Intake Total 1490 950 Output Total 1100 0 Balance 390 950 Result Diagrams: 03/27/18 12:37 03/27/18 12:37 Phys Exam - Physical Examination HEENT: PERRLA, sclera anicteric Neck: no JVD, supple Respiratory: no wheezing rales+ Cardiovascular: RRR, no significant murmur Gastrointestinal: soft, non-tender, positive bowel sounds Musculoskeletal: pulses present, edema present Neurological: non-focal, moves all 4 limbs Dx/Plan (1) Acute respiratory failure with hypoxia Code(s): J96.01 - ACUTE RESPIRATORY FAILURE WITH HYPOXIA Status: Acute (2) Acute exacerbation of CHF (congestive heart failure) Code(s): I50.9 - HEART FAILURE, UNSPECIFIED Status: Acute Qualifiers: Heart failure type: combined systolic and diastolic Qualified Code(s): I50.43 - Acute on chronic combined systolic (congestive) and diastolic ( congestive) heart failure (3) PNA (pneumonia) Code(s): J18.9 - PNEUMONIA, UNSPECIFIED ORGANISM Status: Suspected Qualifiers: Pneumonia type: due to unspecified organism Laterality: bilateral (4) Antiphospholipid syndrome Code(s): D68.61 - ANTIPHOSPHOLIPID SYNDROME Status: Chronic Comment: Coumadin on hold since 02/13 due to perinephric hematoma (5) Atrial fibrillation Code(s): I48.91 - UNSPECIFIED ATRIAL FIBRILLATION Status: Chronic Qualifiers: Atrial fibrillation type: paroxysmal (6) Cardiomyopathy Code(s): I42.9 - CARDIOMYOPATHY, UNSPECIFIED Status: Chronic Comment: ECHO 02/13-EF 45%.Non ischemic (7) Chronic systolic congestive heart failure, NYHA class 3 Code(s): I50.22 - CHRONIC SYSTOLIC (CONGESTIVE) HEART FAILURE Status: Chronic (8) Gout Code(s): M10.9 - GOUT, UNSPECIFIED Status: Chronic Qualifiers: Gout site: unspecified site (9) HTN (hypertension) Code(s): I10 - ESSENTIAL (PRIMARY) HYPERTENSION Status: Chronic Qualifiers: (10) History of pulmonary embolism Code(s): Z86.711 - PERSONAL HISTORY OF PULMONARY EMBOLISM Status: Chronic Comment: h/o IVC filter (11) Physical deconditioning Code(s): R53.81 - OTHER MALAISE Status: Chronic (12) Seizure disorder Code(s): G40.909 - EPILEPSY, UNSP, NOT INTRACTABLE, WITHOUT STATUS EPILEPTICUS Status: Chronic (13) Thrombocytopenia Code(s): D69.6 - THROMBOCYTOPENIA, UNSPECIFIED Status: Chronic (14) Gastroenteritis Code(s): K52.9 - NONINFECTIVE GASTROENTERITIS AND COLITIS, UNSPECIFIED Status : Suspected (15) Fluid overload Code(s): E87.70 - FLUID OVERLOAD, UNSPECIFIED Status: Acute - Plan for HD with max fluid removal today -: previous HD day before couldn't remove much fluid due to hypotension -: may tx to tele after HD if stable -: is on cefepime, vanc -: chronic thrombocytopenia around 45 * . No anticoagulation due to low platelets Prognosis guarded PT to mobilize as tolerated Review of Systems - Medications/Allergies Allergies/Adverse Reactions: Allergies Allergy/AdvReac Type Severity Reaction Status Date / Time phenytoin sodium Allergy Severe Emesis Verified 03/23/18 17:23 [From Dilantin] phenytoin sodium extended Allergy Severe Emesis Verified 03/23/18 17:23 [From Dilantin] midazolam HCl [From Versed] Allergy Intermediate swelling Verified 03/23/18 17: 23 Medications: Current Medications Acetaminophen (Tylenol) 1,000 mg PO Q6H PRN PRN Reason: Moderate to Severe Pain (6-10) Last Admin: 03/26/18 21:21 Dose: 1,000 mg Amiodarone HCl (Cordarone) 200 mg PO BID NEPTALI Last Admin: 03/28/18 08:50 Dose: 200 mg Benzonatate (Tessalon) 100 mg PO TID [facility] Last Admin: 03/28/18 08:50 Dose: 100 mg Calcium Carbonate (Tums) 1,000 mg PO Q4H PRN PRN Reason: Heartburn or Indigestion Carvedilol (Coreg) 3.125 mg PO BID-WM [facility] Last Admin: 03/28/18 08:50 Dose: 3.125 mg Cosyntropin (Cortrosyn) 250 mcg SLOW IVP WILLCALL [facility] Last Admin: 03/25/18 14:05 Dose: 250 mcg Epoetin Nain (Procrit) 7,500 units SC Q7D [facility] Last Admin: 03/23/18 17:19 Dose: 7,500 units Famotidine (Pepcid) 20 mg PO DAILY [facility] Last Admin: 03/28/18 08:50 Dose: 20 mg Guaifenesin/Dextromethorphan (Robitussin Dm) 10 ml PO Q6H PRN PRN Reason: Cough Last Admin: 03/27/18 05:17 Dose: 10 ml Cefepime HCl 1 gm/ Sodium (Chloride) 100 mls @ 200 mls/hr IVPB Q24HR@1300 [facility] Last Admin: 03/27/18 12:44 Dose: 100 mls Vancomycin HCl 1.5 gm/ Sodium (Chloride) 300 mls @ 200 mls/hr IVPB WILLCALL [facility] Vancomycin HCl 1.25 gm/ Sodium (Chloride) 250 mls @ 166.667 mls/hr IVPB [facility] Vancomycin HCl 1 gm/ Device 200 mls @ 200 mls/hr IVPB [facility] Vancomycin HCl 750 mg/ Sodium (Chloride) 250 mls @ 250 mls/hr [facility] Loperamide HCl (Imodium) 2 mg PO PRN PRN PRN Reason: Diarrhea/Loose Stools Melatonin (Melatonin) 3 mg PO HSPRN PRN PRN Reason: Insomnia Last Admin: 03/26/18 21:20 Dose: 3 mg Hold Vancomycin For (Level >20) 0 each FS .AT DIALYSIS [facility] Ondansetron HCl (Zofran Odt) 4 mg PO Q6H PRN PRN Reason: Nausea/Vomiting Last Admin: 03/27/18 21:37 Dose: 4 mg Ondansetron HCl (Zofran) 4 mg IVP Q6H PRN PRN Reason: Nausea/Vomiting Last Admin: 03/24/18 20:59 Dose: 4 mg Oxcarbazepine (Trileptal) 600 mg PO BID [facility] Last Admin: 03/28/18 08:50 Dose: 600 mg Saccharomyces Boulardii (Florastor) 250 mg PO DAILY [facility] Last Admin: 03/28/18 08:50 Dose: 250 mg Sodium Chloride (Flush - Normal Saline) 10 ml IVF Q12HR [facility] Last Admin: 03/28/18 08:51 Dose: 10 ml Sodium Chloride (Flush - Normal Saline) 10 ml IVF PRN PRN PRN Reason: Saline Flush Last Admin: 03/25/18 12:12 Dose: 10 ml Vitamin B Complex/Vit C/Folic Acid (Nephro-Maria C Tablet) 1 tab PO DAILY [facility] Last Admin: 03/28/18 08:51 Dose: 1 tab Zolpidem Tartrate (Ambien) 5 mg PO HSPRN PRN PRN Reason: Insomnia Last Admin: 03/27/18 21:31 Dose: 5 mg
--- NOTE | 2018-03-28 15:04 | CON ---
DATE OF CONSULTATION: 03/28/2018 TYPE OF CONSULTATION: Electrophysiology. HISTORY OF PRESENT ILLNESS: I am seeing Mr. Boo at our [facility] Step-down ICU as an Electrophysiology consult and his problems are; 1. Persistent atrial arrhythmias. a. New-onset atrial fibrillation and flutter noted in January 2018 admit, requiring amiodarone. 2. Nonischemic cardiomyopathy due to a prior history of severely reduced LVEF and normalizing function, most recently LVEF 40% to 45% on echo 01/27/2018, mild MR and mild MS, possible bicuspid aortic valve, mild pulmonary hypertension 40 mmHg at rest. 3. H/o perinephric hematoma requiring stoppinjg of anticoagulation a. with history of antiphospholipid syndrome and prior prior history of DVT and PEs, post IVC filter placement. a. Oral anticoagulation on hold hence history of spontaneous perinephric retroperitoneal hematoma in January 2018. 4. History of seizure disorder with prior brain surgery and history of schizoaffective disorder. 5. End-stage renal disease, on hemodialysis. 6. History of diabetes. ALLERGIES: PHENYTOIN AND MIDAZOLAM. MEDICATIONS: At home included; 1. Timolol. 2. Oxcarbazepine. 3. Tylenol. 4. Amlodipine. 5. Carvedilol. 6. Hydralazine. 7. Losartan. 8. Melatonin. 9. Prednisone. 10. Amiodarone 200 mg twice a day. SUBJECTIVE: Mr. Boo is currently undergoing hemodialysis. He seemed to be asymptomatic. He does complain of continued fatigue. He was admitted with nausea, vomiting, and diarrhea, unable to keep food down. Denies any new bleeding. Also has chronic shortness of breath. He was diagnosed with acute gastroenteritis. Due to missed dialysis, he was again put back on the dialysis schedule. Dr. Hernandez and Nephrology, Dr. De La Rosa were consulted. The patient appears to be anemic, but no further bleeding issues are noted. REVIEW OF SYSTEMS: The rest of 12-point system otherwise unremarkable. PAST MEDICAL HISTORY: As above. SOCIAL HISTORY: The patient denies smoking, EtOH, or drug abuse. FAMILY HISTORY: Not contributory. OBJECTIVE DATA: VITAL SIGNS: Blood pressure 111/69, heart rate 114, respirations 16, and temperature 98.6 degrees Fahrenheit. GENERAL: He is alert and oriented man, in no apparent distress. NECK: Supple. Jugular veins not distended. CHEST: Coarse with crackles. HEART: Sounds are regular to rate and rhythm. No murmur or gallop. ABDOMEN: Benign. Bowel sounds are positive. EXTREMITIES: Lower extremities without edema, clubbing, or cyanosis. DATABASE: The EKG reviewed reveals likely atypical atrial flutter with ventricular response over 100 beats per minute. Subsequent EKGs revealed continued atrial flutter, rate of 110 and 113. Lab data; white cell count is 5.1, hemoglobin is 8, and platelet count is 45. INR 1.1. A pH of 7.48, pCO2 of 35, and pO2 of 49. Chest x-ray from 03/27/2018 shows worsening pulmonary edema. Blood cultures negative x2 days. ASSESSMENT AND PLAN: Mr. Boo is a 47-year-old man with history of cardiomyopathy, mild to moderate reduced LV function, as noted above. He also has end-stage renal disease on hemodialysis, recently developed atrial fibrillation/flutter. He was admitted in January with a perinephric spontaneous hematoma. Anticoagulation then was stopped and not yet resumed. He developed atrial fibrillation and was rate controlled using amiodarone and Coreg. Now, he has returned with a gastroenteritis. He had somewhat more rapid heart rate. Currently, his heart rates are stabilized on the current level. This gentleman's anticoagulation is very difficult to handle, hence history of perinephric hematoma. Currently, he is still off oral anticoagulation. His platelet count is also low. He just continues on amiodarone. Decision could be made at one point to consider transesophageal echocardiography-guided cardioversion, understanding of the potential future clot formation is to be present. Limited candidate for ablation and NITHYA closure. Otherwise, resuming oral anticoagulation with his low platelet count is difficult proposition. On the other hand, he has antiphospholipid syndrome as well. Hematology consultation could be non-reasonable. For now, his heart rates are reasonably controlled. I think I would continue the current regimen, consider reducing amiodarone 200 mg a day and maximizing his beta john as tolerated. Cardiomyopathy, [id number] reduced LV function. Continue monitoring. Chronic amiodarone use. Monitor pulmonary function, liver and thyroid issues. Job ID: [id number] [facility]
[2018-03-28] MEDS: Cefepime 1 GM in Sodium Chloride 0.9% 100 ML IVPB SCH (16:14)
--- NOTE | 2018-03-28 17:23 | PRG ---
DATE OF SERVICE: 03/28/2018 SUBJECTIVE: The patient is complaining of a cough, but otherwise seems to be doing well. OBJECTIVE: VITAL SIGNS: Temperature 99.4, pulse 116, respirations 20, O2 saturation 95% on 2 L, blood pressure 114/65. HEENT: Unremarkable. NECK: No JVD. CHEST: Clear anteriorly. CARDIAC: S1, S2. Regular. ABDOMEN: Soft. EXTREMITIES: Trace edema. LABORATORY DATA: No new labs were done today. ASSESSMENT: 1. Acute hypoxic respiratory failure from congestive heart failure-this is better. 2. Antiphospholipid antibody syndrome. 3. End-stage renal disease. PLAN: Continuing dialysis. He seems to be getting better with the current intervention. He is currently on antibiotics. If his 48-hour cultures are negative, I would consider scaling back on those. Job ID: [id number]
--- NOTE | 2018-03-28 17:46 | PDOC.CTH ---
Cardiology Progress Note - Subjective No new issues. Tolerating HD. BP low on HD days. - Objective Vital Signs Temp Pulse Resp BP BP Pulse Ox 03/28/18 16:11 99.4 F 116 H 20 114/65 95 03/28/18 14:10 99.2 F 118 H 20 106/66 94 L 03/28/18 08:27 99 03/28/18 08:19 98.6 F 114 H 16 111/69 99 Weight 253 lb 4.8 oz 03/27/18 03/28/18 03/29/18 06:59 06:59 06:59 Intake Total 1490 950 Output Total 1100 0 Balance 390 950 - Physical Examination General/Neuro: alert & oriented x3, NAD Neck: no JVD present Lungs: unlabored respirations Heart: RRR Abdomen: NT/ND Extremities: + edema B (1+) - Telemetry Telemetry Rhythm: S tach - Labs Result Diagrams: 03/27/18 12:37 03/27/18 12:37 Troponin/CKMB CK-MB (CK-2) 0.4 ng/mL (0-6.6) 03/23/18 05:26 Troponin I 0.134 ng/mL (< 0.028) H 03/23/18 11:35 - Assessment/Plan 1. Acute on chronic combined heart failure. 2. ESRD 3. Antiphospholipid antibody syndrome 4. Hx of PE 5. Hx of spontaneous perinephric retroperitoneal hematoma. 6. Afib. PLAN: - Continue current regimen. - He is only on low dose coreg for his CHF but cant tolerate ACEI due to borderline low BP. - Continue amiodarone. - No anticoagulation for now due to hx of hematoma.
[2018-03-28] MEDS: Guaifenesin DM 100-10/5 ML UDCUP PO PRN (20:33)
[2018-03-29] MEDS ORDERED: Epoetin (ESRD) 20,000 UNITS/ML SC SCH (09:16)
--- NOTE | 2018-03-29 09:37 | PRG ---
DATE OF SERVICE: 03/29/2018 RENAL MEDICINE SUBJECTIVE: Mr. Boo is a 47-year-old white male with ESRD-currently on maintenance hemodialysis, has received an extra hemodialysis yesterday due to CHF. Currently, he is undergoing for his regular dialysis today. I am attempting 3.5 L fluid removal as tolerated. I am at the bedside supervising his dialysis. He voices no new complaints. He has been evaluated by Cardiology. Recommendation is not to start anticoagulation due to the recent renal bleed with this patient. He has also been evaluated by Dr. Godwin, the EP manager market research due to his atrial fibrillation. Recommendation is to continue current dose of amiodarone and eventually decreasing it. No other complaints today. OBJECTIVE: VITAL SIGNS: Blood pressure is 114/71, heart rate 113, respiratory rate 19, temperature 98, and pulse ox 92%. GENERAL: Awake, comfortable, not in overt distress. SKIN: Adequate turgor. HEENT: Slightly pale conjunctivae. Anicteric sclerae. No neck mass. No carotid bruits. No JVD. CHEST: No deformities. LUNGS: Clear breath sounds. HEART: Irregularly irregular. No murmur. No gallops. No rubs. ABDOMEN: Globular, soft, and nontender. No masses. EXTREMITIES: No edema. No deformities. MEDICATIONS: Medications of March 29, 2018, reviewed. LABORATORY DATA: Laboratories of March 27, 2018; white count 5.1, hemoglobin 8, platelet count 45,000. Sodium 133, potassium 4, chloride 98, carbon dioxide 26, BUN 16, creatinine 3.4. LFTs normal. BNP is 1848. ASSESSMENT AND PLAN: 1. Congestive heart failure, clinically improving. The patient has received two consecutive dialysis. We are maxing out fluid removal. 2. End-stage renal disease. We will continue current Wednesday, , and Wednesday dialysis regimen. As previously mentioned, max out fluid removal. 3. Anemia-we will recheck CBC. We will adjust Epogen to 10,000 units subcu every week. 4. Thrombocytopenia. We will check another CBC. Chronic in nature. 5. Atrial fibrillation. Cardiology is following. Recommendation is to continue amiodarone. Job ID: [id number]
[2018-03-29 10:39] LABS: Vancomycin, Random 11.7 ug/mL (See Comment)
[2018-03-29] MEDS: Benzonatate 100 MG CAP PO SCH ×3 (13:15→21:01)
[2018-03-29] MEDS: Saccharomyces boulardii 250 MG CAP PO SCH (13:15)
[2018-03-29] MEDS: Famotidine 20 MG TAB PO SCH (13:15)
[2018-03-29] MEDS: Amiodarone 200 MG TAB PO SCH ×2 (13:15→21:01)
[2018-03-29] MEDS: OXcarbazepine 300 MG TAB PO SCH ×2 (13:15→21:01)
[2018-03-29] MEDS: Carvedilol 3.125 MG TAB PO SCH ×2 (13:15→16:22)
[2018-03-29] MEDS: Folic Acid/Vit B Comp W-C PO SCH (13:16)
--- NOTE | 2018-03-29 13:19 | PDOC.PN ---
- Subjective Encounter Start Date: 03/29/18 Encounter Start Time: 13:17 Mr. Boo was seen today in follow-up of atrial arrhythmia. He is complaining of a chronic cough, ever since he was placed in Rehab. He also notes some dyspnea. - Objective Resuscitation Status - Order Detail: 03/23/18 07:56 Resuscitation Status Routine Resuscitation Status: FULL: Full Resuscitation MAR Reviewed: Yes Vital Signs & Weight: Vital Signs (12 hours) Temp Pulse Resp BP Pulse Ox 03/29/18 07:40 95 03/29/18 04:00 98 F 113 H 19 114/71 92 L Weight Weight 249 lb 1.957 oz I&O: 03/28/18 03/29/18 03/30/18 06:59 06:59 06:59 Intake Total 950 480 Output Total 0 6150 Balance 950 -5670 Result Diagrams: 03/27/18 12:37 03/27/18 12:37 Phys Exam - Physical Examination HEENT: PERRLA Respiratory: wheezing present + rales and rhonchi in the left base Cardiovascular: RRR, no significant murmur, no rub tachycardic Gastrointestinal: soft, non-tender, no distention, positive bowel sounds Musculoskeletal: pulses present, edema present trace pedal edema bilaterally Neurological: non-focal, moves all 4 limbs Dx/Plan (1) Atrial fibrillation Code(s): I48.91 - UNSPECIFIED ATRIAL FIBRILLATION Status: Chronic Qualifiers: Atrial fibrillation type: paroxysmal (2) Acute respiratory failure with hypoxia Code(s): J96.01 - ACUTE RESPIRATORY FAILURE WITH HYPOXIA Status: Acute (3) Fluid overload Code(s): E87.70 - FLUID OVERLOAD, UNSPECIFIED Status: Acute (4) Antiphospholipid syndrome Code(s): D68.61 - ANTIPHOSPHOLIPID SYNDROME Status: Chronic Comment: Coumadin on hold since 02/13 due to perinephric hematoma (5) Chronic systolic congestive heart failure, NYHA class 3 Code(s): I50.22 - CHRONIC SYSTOLIC (CONGESTIVE) HEART FAILURE Status: Chronic (6) HTN (hypertension) Code(s): I10 - ESSENTIAL (PRIMARY) HYPERTENSION Status: Chronic Qualifiers: (7) Pancytopenia Code(s): D61.818 - OTHER PANCYTOPENIA Status: Chronic - Plan * Chronic AFIB- EP recommendations noted- plan is for medical treatment- with Amiodarone, and Carvediolol * Chronic systolic heart failure- continue fluid removal with dialysis * ESRD- as above * ? Lung infection- cultures are negative X48hr- will change antibiotics to Omnicef * Chronic cough- possible a combination of CHF, and chronic allergic rhinitis * Hopefully home soon.
[2018-03-29] MEDS: Cefepime 1 GM in Sodium Chloride 0.9% 100 ML IVPB SCH (13:21)
[2018-03-29] MEDS ORDERED: Loratadine/Pseudoephedrine 10/240 mg Tablet PO SCH (13:30)
--- NOTE | 2018-03-29 14:04 | PRG ---
DATE OF SERVICE: 03/29/2018 SUBJECTIVE: Hans Boo is still coughing this morning without any shortness of breath. OBJECTIVE: VITAL SIGNS: His saturations are 95% on 4 L, temperature 98, pulse 113, blood pressure 114/71, respirations 19. CHEST: Minimal rhonchi. CARDIAC: Normal S1, S2. No gallops. ABDOMEN: No masses. IMPRESSION: 1. Acute respiratory failure. 2. Congestive heart failure. 3. End-stage renal disease. PLAN: Continue broad-spectrum antibiotics, neb treatments, supportive care. We will follow. Job ID: [id number]
[2018-03-29] MEDS ORDERED: Heparin 10,000 UNITS/ 10 ML VIAL ONE (15:00)
[2018-03-29] MEDS: Epoetin (ESRD) 10,000 UNITS/ML VIAL SC SCH (15:19)
--- NOTE | 2018-03-29 16:52 | PDOC.CTH ---
Cardiology Progress Note - Subjective Complaining of a persistent cough. Breathing is at baseline. - Objective Vital Signs Temp Pulse Resp BP Pulse Ox 03/29/18 15:24 97.9 F 118 H 20 122/78 93 L 03/29/18 12:45 98.2 F 119 H 20 121/81 96 03/29/18 07:40 95 Weight 249 lb 1.957 oz 03/28/18 03/29/18 03/30/18 06:59 06:59 06:59 Intake Total 950 480 Output Total 0 6150 Balance 950 -5670 - Physical Examination General/Neuro: alert & oriented x3, NAD Neck: no JVD present Lungs: unlabored respirations Heart: RRR Abdomen: NT/ND Extremities: + edema B (2+) - Telemetry Telemetry Rhythm: Stach vs aflutter. - Labs Result Diagrams: 03/27/18 12:37 03/27/18 12:37 Troponin/CKMB CK-MB (CK-2) 0.4 ng/mL (0-6.6) 03/23/18 05:26 Troponin I 0.134 ng/mL (< 0.028) H 03/23/18 11:35 - Assessment/Plan 1. Acute on chronic combined heart failure. 2. ESRD 3. Antiphospholipid antibody syndrome 4. Hx of PE 5. Hx of spontaneous perinephric retroperitoneal hematoma. 6. Afib/flutter. PLAN: - Continue current regimen. - He is only on low dose coreg for his CHF but cant tolerate ACEI due to borderline low BP. - Continue amiodarone. - No anticoagulation for now due to hx of hematoma. - Currently likely in 2-1 flutter HR in at 118.
[2018-03-29] MEDS: traMADol HCl 50 MG TAB PO PRN (17:53)
[2018-03-29] MEDS: Cefdinir 300 MG CAP PO SCH (21:01)
[2018-03-29] MEDS: Guaifenesin DM 100-10/5 ML UDCUP PO PRN (21:01)
[2018-03-30] MEDS: Carvedilol 3.125 MG TAB PO SCH ×2 (08:37→17:12)
[2018-03-30] MEDS: traMADol HCl 50 MG TAB PO PRN ×3 (08:37→23:14)
[2018-03-30] MEDS: Benzonatate 100 MG CAP PO SCH ×3 (08:37→19:57)
[2018-03-30] MEDS: Saccharomyces boulardii 250 MG CAP PO SCH (08:38)
[2018-03-30] MEDS: Amiodarone 200 MG TAB PO SCH ×2 (08:38→19:57)
[2018-03-30] MEDS: Famotidine 20 MG TAB PO SCH (08:39)
[2018-03-30] MEDS: Folic Acid/Vit B Comp W-C PO SCH (08:39)
[2018-03-30] MEDS: OXcarbazepine 300 MG TAB PO SCH ×2 (08:39→19:56)
[2018-03-30] MEDS: Cefdinir 300 MG CAP PO SCH ×2 (08:39→19:56)
--- NOTE | 2018-03-30 08:59 | PRG ---
DATE OF SERVICE: 03/30/2018 RENAL MEDICINE SUBJECTIVE: Mr. Boo is a 47-year-old white male followed up by the [facility] for his ESRD and maintenance hemodialysis. He received two consecutive dialysis due to CHF. He is breathing better. However, still complains of a dry cough. He was started on Tessalon Perles, which seems not to be helping. No complaints of chest pain or shortness of breath. OBJECTIVE: VITAL SIGNS: Blood pressure is 109/76, heart rate 111, respiratory rate 19, temperature 97.9, pulse ox 98%. GENERAL: The patient is awake, alert, comfortable, not in distress. SKIN: Adequate turgor. HEENT: He has a slightly pale conjunctivae. Anicteric sclerae. No neck mass. No carotid bruits. No JVD. CHEST: No deformities. LUNGS: Clear breath sounds. No wheezing. No crackles. HEART: Irregularly irregular. No murmur. No gallops. No rubs. ABDOMEN: Globular, soft, nontender. EXTREMITIES: Trace edema. MEDICATIONS: Medications of March 30, 2018 was reviewed. LABORATORY DATA: Laboratories of March 27, 2018; white count 5.1, hemoglobin 8, platelet count 45,000. Sodium 133, potassium 4, chloride 98, carbon dioxide 26, BUN 16, creatinine 3.4, albumin 2.7. ASSESSMENT AND PLAN: 1. End-stage renal disease, stable, continuing three times a week hemodialysis. No dialysis today. We will resume back on for his regular dialysis schedule. 2. Congestive heart failure, much improved. He received two consecutive dialysis with fluid removal. 3. Chronic thrombocytopenia. Awaiting Hematology input. 4. Chronic anemia. Continue Epogen. [place] [address] [place]cu every week. 5. Chronic cough-consider Robitussin with codeine. Job ID: [id number]
[2018-03-30] MEDS: Loratadine/Pseudoephedrine 10/240 mg Tablet PO SCH (09:29)
[2018-03-30] MEDS: guaiFENesin/Codeine Phosphate 200 mg/20 mg 10 ml UD Cup PO PRN ×2 (09:29→17:42)
--- NOTE | 2018-03-30 10:17 | PDOC.PN ---
- Subjective Encounter Start Date: 03/30/18 Encounter Start Time: 10:16 Mr. Boo was seen today in follow-up of Atrial flutter, and generalized weakness. He says the cough has improved. He says he is very weak, and could barely get up and go to the bathroom. - Objective Resuscitation Status - Order Detail: 03/23/18 07:56 Resuscitation Status Routine Resuscitation Status: FULL: Full Resuscitation MAR Reviewed: Yes Vital Signs & Weight: Vital Signs (12 hours) Temp Pulse Resp BP BP BP Pulse Ox 03/30/18 07:43 98.6 F 110 H 21 H 106/69 94 L 03/30/18 04:00 97.9 F 111 H 19 109/76 98 03/30/18 00:00 98.1 F 113 H 19 124/65 97 Weight Weight 244 lb 0.827 oz I&O: 03/29/18 03/30/18 03/31/18 06:59 06:59 06:59 Intake Total 480 1550 Output Total 6145 6150 Balance -7957 -4753 Result Diagrams: 03/27/18 12:37 03/27/18 12:37 Phys Exam - Physical Examination HEENT: PERRLA Respiratory: no wheezing, no rales + rhonchi bilaterally, Cardiovascular: no significant murmur, no rub, irregular tachycardic Gastrointestinal: soft, non-tender, no distention, positive bowel sounds Musculoskeletal: pulses present, edema present lower extremity edema, and chronic venous stasis changes Neurological: non-focal, moves all 4 limbs Dx/Plan (1) Atrial fibrillation Code(s): I48.91 - UNSPECIFIED ATRIAL FIBRILLATION Status: Chronic Qualifiers: Atrial fibrillation type: paroxysmal (2) Acute respiratory failure with hypoxia Code(s): J96.01 - ACUTE RESPIRATORY FAILURE WITH HYPOXIA Status: Acute (3) Fluid overload Code(s): E87.70 - FLUID OVERLOAD, UNSPECIFIED Status: Acute (4) Antiphospholipid syndrome Code(s): D68.61 - ANTIPHOSPHOLIPID SYNDROME Status: Chronic Comment: Coumadin on hold since 02/13 due to perinephric hematoma (5) Chronic systolic congestive heart failure, NYHA class 3 Code(s): I50.22 - CHRONIC SYSTOLIC (CONGESTIVE) HEART FAILURE Status: Chronic Comment: Combined systolic and Diastolic heart failure (6) HTN (hypertension) Code(s): I10 - ESSENTIAL (PRIMARY) HYPERTENSION Status: Chronic Qualifiers: (7) Pancytopenia Code(s): D61.818 - OTHER PANCYTOPENIA Status: Chronic (8) Physical deconditioning Code(s): R53.81 - OTHER MALAISE Status: Chronic - Plan * Atrial flutter- his heart rate has been variable-continue Amiodarone, and Carvediolol * ESRD- no dialysis planned for today- he will resume his - Wed schedule * HTN- blood pressure has controlled * Chronic combined systolic and diastolic heart failure- compensated * Severe deconditioning- will have PT/OT evaluate him, and screen for Rehab/ Mcfp placement.
--- NOTE | 2018-03-30 10:25 | PDOC.CTH ---
Cardiology Progress Note - Subjective The pt seen and examined. No overnight events. No cardiac complaints. He complains of chronic cough. - Objective Vital Signs Temp Pulse Resp BP BP BP Pulse Ox 03/30/18 07:43 98.6 F 110 H 21 H 106/69 94 L 03/30/18 04:00 97.9 F 111 H 19 109/76 98 03/30/18 00:00 98.1 F 113 H 19 124/65 97 Weight 244 lb 0.827 oz 03/29/18 03/30/18 03/31/18 06:59 06:59 06:59 Intake Total 480 1550 Output Total 6150 6150 Balance -8314 -9240 - Physical Examination General/Neuro: alert & oriented x3 Neck: no JVD present Lungs: other: (diminished at bases) Heart: other: (irreugular) Abdomen: soft Extremities: other: (1+ pitting BLE edema) - Telemetry Telemetry Rhythm: Aflutter 100-110s - Labs Result Diagrams: 03/27/18 12:37 03/27/18 12:37 Troponin/CKMB CK-MB (CK-2) 0.4 ng/mL (0-6.6) 03/23/18 05:26 Troponin I 0.134 ng/mL (< 0.028) H 03/23/18 11:35 - Assessment/Plan 1. Afib/flutter - Remains in AFlutter with HR 100-110s with Amiodarone 200mg BID and Coreg 3.125mg BID. Not on OAC at this moment due to hx of perinephric hematoma in 01/2018; Possible GERARDO/DCCV? 2. Acute on chronic combined HF - Stable; on Coreg and HD. Not on DAVID/ARB 2/2 hypotensive and hx of CKD. 3. ESRD - on HD, managed by Dr De La Rosa. 4. Antiphospholipid antibody syndrome with hx of DVT/PE and IVC filter placement - On on OAC 2/2 hx of perinephric hematima in 01/2018 5. HTN - stable with current medication 6. Hx of spontaneous perinephric retroperitoneal hematoma. 7. Hx of seizure - MAR reviewed Pt. seen and eval. by me. I agree with the A/P by the MICROFILM CAMERA OPERATOR but now he has converted back to A-fib. again. The HR is 110's - 120's. Difficult situation for the pt. Unable to adequately coagulate due to prior perinephric hematoma. EP assisting with his care. Review of Systems - Review of Systems Constitutional: reports: weakness EENTM: reports: no symptoms reported Respiratory: reports: cough Cardiac (ROS): reports: no symptoms reported ABD/GI: reports: no symptoms reported : reports: no symptoms reported
--- NOTE | 2018-03-30 14:05 | PRG ---
DATE OF SERVICE: 03/30/2018 SUBJECTIVE: Mr. Boo seems to be doing fair. No new symptoms. He still complains to be fatigued. OBJECTIVE: VITAL SIGNS: Blood pressure is 106/69, heart rate 110, respirations 21, temperature 98.6 degrees Fahrenheit. GENERAL: He is alert and oriented man x2, no apparent distress. NECK: Supple. Jugular veins not distended. CHEST: Coarse. No crackles. HEART: Sounds are regular, but tachycardic. No murmur or gallop. ABDOMEN: Benign. Bowel sounds positive. EXTREMITIES: Lower extremities without edema, clubbing, or cyanosis. The hemodialysis catheter was in place. LABORATORY DATA: White count is 5.1, platelet count 45, hemoglobin 8. Sodium 132, potassium 4, BUN is 16, creatinine is 3.4. ASSESSMENT AND PLAN: Mr. Boo is a 47-year-old man with prior history of end-stage renal disease on hemodialysis, who has also acute on chronic combined heart failure related to extra dialysis who was admitted with gastroenteritis, now resolved. He also has atrial fibrillation now organized into flutter on amiodarone loading. His rates are better controlled, but still in the range of 100 and 110 beats per minute. Hence, the history of perinephric hematoma on anticoagulation. He is off anticoagulants still. He also has low platelet count. His symptoms are reasonably controlled, but he may be considered to be cardioverted at this point, a possible GERARDO guided cardioversion could be considered. Hence, no anticoagulation on board. We will discuss with Dr. Jefferson. He is a poor candidate for ablation therapy. Job ID: [id number]
[2018-03-30 14:50] LABS: Jo-1 IgG Antibody Less than 0.3 EliAU/mL (<7 Negative)
[2018-03-30] MEDS: Ondansetron PF 4 MG/2 ML Vial IVP PRN (23:20)
[2018-03-31 06:07] LABS: #Eosinphils 0.1 thou/uL (0.0-0.7); #Lymphocytes 0.8 thou/uL (1.20-3.40); #Monocytes 0.5 thou/uL (0.11-0.59); #Neutrophils 2.4 thou/uL (1.40-6.50); %Basophils 0.3 % (0.0-1.0); %Lymphocytes 21.9 % (21.0-51.0); %Monocytes 13.2 % (0.0-10.0); %Neutrophils 62.6 % (42.0-75.0); Hemoglobin 8.1 g/dL (14.0-18.0); Mean Corpuscular HGB CONC 32.9 g/dL (32.0-36.0); Mean Corpuscular Hemoglobin 31.2 pg (27.0-31.0); Mean Platelet Volume 9.2 fL (7.4-10.4); Platelet Count 47 thou/uL (130-400); RBC Distribution Width 14.8 % (11.5-14.5); Red Blood Cell (RBC) Count 2.59 mill/uL (4.70-6.10); White Blood Cell (WBC) Count 3.8 thou/uL (4.8-10.8)
[2018-03-31 06:18] LABS: Anion Gap 15 mmol/L (10-20); BUN (Urea Nitrogen) 20 mg/dL (8.9-20.6); Calc. Creatinine Clearance 36 mL/min (70-130); Calcium 8.6 mg/dL (7.8-10.44); Carbon Dioxide 27 mmol/L (22-29); Chloride 96 mmol/L (98-107); Estimated GFR-MDRD 16; Glucose 80 mg/dL (70-105); Potassium 3.8 mmol/L (3.5-5.1); Sodium 134 mmol/L (136-145)
--- NOTE | 2018-03-31 09:09 | PRG ---
DATE OF SERVICE: 03/31/2018 SUBJECTIVE: Mr. Boo is a 47-year-old white male with ESRD and being followed by [facility] for his maintenance hemodialysis. He is undergoing dialysis today. I am attempting 3.5 L fluid removal as tolerated by the patient. He is still noted to be hypoxemic on room air. In addition, he was noted to be confused last night. I am at the bedside, supervising his dialysis. Due to the hypoxemia, my bias is to do another extra dialysis tomorrow. My plan is to do a 2-hour ultrafiltration for fluid removal tomorrow. He continues to be in atrial fibrillation. No other complaints. He occasionally is reported to be confused. OBJECTIVE: VITAL SIGNS: Blood pressure 117/79, heart rate 109, respiratory rate 19, temperature 97.9, pulse ox 92%. GENERAL: Awake, not in distress, comfortable. SKIN: Adequate turgor. HEENT: Slightly pale conjunctivae. Anicteric sclerae. NECK: No neck mass. No carotid bruits. No JVD. CHEST: No deformities. LUNGS: Decreased breath sounds. HEART: Irregularly irregular. No murmur. No gallops or rubs. ABDOMEN: Globular, soft, nontender. No masses. EXTREMITIES: Trace edema. MEDICATIONS: Medications of March 31, 2018, were reviewed. LABORATORY DATA: Laboratories of March 31, 2018: White count 3.8, hemoglobin 8.1. Sodium 134, potassium 3.8, chloride 96, carbon dioxide 27, BUN 20, creatinine 4.01, glucose 80, calcium 8.6. March 27, 2018, BNP 1848. ASSESSMENT AND PLAN: 1. Hypoxemia-O2 supplementation, maxing out fluid removal with dialysis. a. The plan is to do extra dialysis tomorrow for ultrafiltration/fluid removal. 2. End-stage renal disease, stable. We will continue current hemodialysis regimen of Wednesday, , and Wednesday. However, we will do extra dialysis tomorrow for fluid removal due to the hypoxemia. 3. Atrial fibrillation, on medications. Cardiology is following. 4. Chronic anemia, stable. Continuing Epogen. Please note that Epogen has been [place] 7500 [place] 30059 units subcutaneous daily. 5. Chronic thrombocytopenia-stable. Most recent platelet count is 47,000. Continue current management. Agree with current management. Job ID: [id number]
[2018-03-31] MEDS: Benzonatate 100 MG CAP PO SCH ×4 (12:00→22:39)
--- NOTE | 2018-03-31 12:07 | PDOC.CTH ---
Cardiology Progress Note - Subjective The pt seen and examined. No overnight events. No cardiac complaints. He stated his cough is better today. - Objective Vital Signs Temp Pulse Resp BP Pulse Ox 03/31/18 12:00 97.9 F 113 H 19 114/73 93 L 03/31/18 07:15 97.9 F 119 H 19 117/79 92 L 03/31/18 04:00 97.6 F 114 H 16 117/83 95 Weight 244 lb 0.827 oz 03/30/18 03/31/18 04/01/18 06:59 06:59 06:59 Intake Total 1550 1360 Output Total 6150 0 Balance -4600 1360 - Physical Examination General/Neuro: other: (intermittent confusion) Lungs: other: (diminished at bases) Heart: other: (irregular) Abdomen: soft Extremities: other: (1-2+ pitting BLE edema) - Telemetry Telemetry Rhythm: Afib/Aflutter 110-120s - Labs Result Diagrams: 03/31/18 04:53 03/31/18 04:53 Troponin/CKMB CK-MB (CK-2) 0.4 ng/mL (0-6.6) 03/23/18 05:26 Troponin I 0.134 ng/mL (< 0.028) H 03/23/18 11:35 - Assessment/Plan 1. Afib/flutter - Remains in AFlutter/afib with HR 100-110s with Amiodarone 200mg BID and Coreg. Not on OAC at this moment due to hx of perinephric hematoma in 01/2018; Possible GERARDO/DCCV? 2. Acute on chronic combined HF - Stable; on Coreg and HD. Not on DAVID/ARB 2/2 hypotensive and hx of CKD. 3. ESRD - on HD on , , Wed; managed by Dr De La Rosa. 4. Antiphospholipid antibody syndrome with hx of DVT/PE and IVC filter placement - On on OAC 2/2 hx of perinephric hematima in 01/2018 5. HTN - stable; Increase Coreg from 3.125mg to 6.25mg BID for tachycardia. Cont.to monitor 6. Hx of spontaneous perinephric retroperitoneal hematoma. 7. Hx of seizure - MAR reviewed Pt. seen and eval. by me. I agree with the A/P by the OFF PREMISE SERVICE REPRESENTATIVE. Will discuss options with EP about GERARDO/cardioversion but he will likely revert back to Afib without more antiarrhythmics. He is not a good candidate for a watchman or ablation since he can not take OAC at this time. It may be at least worth an attempt to cardiovert him. I will aewait the advice from EP. He is at risk of CVA unless very low probability of NITHYA thrombus. If we plan to cardiovert then he could have a GERARDO/cardioversion tomorrow. Review of Systems - Review of Systems Constitutional: reports: weakness EENTM: reports: no symptoms reported Respiratory: reports: no symptoms reported Cardiac (ROS): reports: no symptoms reported ABD/GI: reports: no symptoms reported : reports: no symptoms reported
[2018-03-31] MEDS: OXcarbazepine 300 MG TAB PO SCH ×3 (12:18→22:40)
[2018-03-31] MEDS: Saccharomyces boulardii 250 MG CAP PO SCH (12:19)
[2018-03-31] MEDS: Cefdinir 300 MG CAP PO SCH ×3 (12:19→22:39)
[2018-03-31] MEDS: Folic Acid/Vit B Comp W-C PO SCH (12:19)
[2018-03-31] MEDS: Famotidine 20 MG TAB PO SCH (12:19)
[2018-03-31] MEDS: Loratadine/Pseudoephedrine 10/240 mg Tablet PO SCH (12:20)
[2018-03-31] MEDS: Amiodarone 200 MG TAB PO SCH ×3 (12:20→22:39)
[2018-03-31] MEDS: Carvedilol 3.125 MG TAB PO SCH (12:26)
[2018-03-31] MEDS ORDERED: guaiFENesin/Codeine Phosphate 200 mg/20 mg 10 ml UD Cup PO PRN (15:13)
--- NOTE | 2018-03-31 15:19 | PDOC.PN ---
- Subjective Encounter Start Date: 03/31/18 Encounter Start Time: 11:30 Mr. Boo was seen today in follow-up of Atrial fibrillation. He does not have any new complaints, except for occasional cough. - Objective Resuscitation Status - Order Detail: 03/23/18 07:56 Resuscitation Status Routine Resuscitation Status: FULL: Full Resuscitation MAR Reviewed: Yes Vital Signs & Weight: Vital Signs (12 hours) Temp Pulse Resp BP Pulse Ox 03/31/18 12:00 97.9 F 113 H 19 114/73 93 L 03/31/18 07:15 97.9 F 119 H 19 117/79 92 L 03/31/18 04:00 97.6 F 114 H 16 117/83 95 Weight Weight 244 lb 0.827 oz I&O: 03/30/18 03/31/18 04/01/18 06:59 06:59 06:59 Intake Total 1550 1360 Output Total 6150 0 Balance -4600 1360 Result Diagrams: 03/31/18 04:53 03/31/18 04:53 Phys Exam - Physical Examination HEENT: PERRLA Respiratory: no wheezing, no rales, no rhonchi decreased breath sounds at the bases Cardiovascular: RRR, no significant murmur, no rub Gastrointestinal: soft, non-tender, no distention, positive bowel sounds Musculoskeletal: pulses present, edema present 1+ edema in both lower extremities Dx/Plan (1) Atrial fibrillation Code(s): I48.91 - UNSPECIFIED ATRIAL FIBRILLATION Status: Chronic Qualifiers: Atrial fibrillation type: paroxysmal (2) Acute respiratory failure with hypoxia Code(s): J96.01 - ACUTE RESPIRATORY FAILURE WITH HYPOXIA Status: Acute (3) Fluid overload Code(s): E87.70 - FLUID OVERLOAD, UNSPECIFIED Status: Acute (4) Antiphospholipid syndrome Code(s): D68.61 - ANTIPHOSPHOLIPID SYNDROME Status: Chronic Comment: Coumadin on hold since 02/13 due to perinephric hematoma (5) Chronic systolic congestive heart failure, NYHA class 3 Code(s): I50.22 - CHRONIC SYSTOLIC (CONGESTIVE) HEART FAILURE Status: Chronic Comment: Combined systolic and Diastolic heart failure (6) HTN (hypertension) Code(s): I10 - ESSENTIAL (PRIMARY) HYPERTENSION Status: Chronic Qualifiers: (7) Pancytopenia Code(s): D61.818 - OTHER PANCYTOPENIA Status: Chronic (8) Physical deconditioning Code(s): R53.81 - OTHER MALAISE Status: Chronic - Plan * Atrial Fibrillation- his heart rate has been variable, but mostly better 100- 110. He may be a candidate for Cardioversion * Await further recommendations from EP * HTN- blood pressure is stable * CHF- compensated .
[2018-03-31] MEDS: Carvedilol 6.25 MG TAB PO SCH (16:18)
[2018-03-31] MEDS: guaiFENesin/Codeine Phosphate 200 mg/20 mg 10 ml UD Cup PO PRN (16:19)
[2018-03-31] MEDS ORDERED: Polyethylene Glycol 3350 17 GM Packet PO SCH (18:15)
--- NOTE | 2018-03-31 19:55 | PRG ---
DATE OF SERVICE: 03/31/2018 SUBJECTIVE: Mr. Boo is doing fair. He still complains of fatigue, but no other acute discomforts are noted. OBJECTIVE: VITAL SIGNS: Blood pressure is 100/65, heart rate 114, respirations 19, and temperature 97.9 degrees Fahrenheit. GENERAL: Alert and oriented man, in no apparent distress. NECK: Supple. Jugular veins not distended. CHEST: Coarse without crackles. HEART: Sounds are regular rate and rhythm. No murmur or gallop. ABDOMEN: Benign. Bowel sounds positive. EXTREMITIES: Lower extremities; no edema, clubbing, or cyanosis. DATABASE: Telemetry strips reviewed revealing continued atrial flutter with mildly increased ventricular rate. LABORATORY DATA: White count 3.8, hemoglobin 8.1, platelet count is 47. Sodium 134, potassium 3.8, BUN is 20, and creatinine 4.01. ASSESSMENT AND PLAN: Mr. Boo is a 47-year-old man, who has history of persistent atrial fibrillation, who also had a spontaneous perinephric hematoma on anticoagulation and hence, he has a low platelet count. Now, he is off anticoagulation. He continues though in atrial flutter, currently still being loaded with amiodarone. At this point, he continues to be somewhat poor candidate for ablation therapy and has had difficulty with anticoagulation. On the other hand, he could be attempted to undergo a GERARDO-guided cardioversion. Hence his low platelet count, I am hoping clot formation is less likely even in his non-anticoagulated state. With the amiodarone loading, we have some hopes of sinus rhythm maintenance, which likely would help him overall. He continues to be a poor anticoagulation and ablation candidate. Job ID: [id number]
[2018-03-31] MEDS: Docusate 100 MG CAP PO SCH ×2 (22:28→22:39)
[2018-04-01] MEDS ORDERED: Digoxin 0.5 MG/2 ML AMP ONE (02:28)
[2018-04-01] MEDS ORDERED: Digoxin 0.5 MG/2 ML AMP SLOW IVP SCH (02:30)
--- NOTE | 2018-04-01 10:39 | PDOC.CTH ---
Cardiology Progress Note - Subjective EP PROGRESS NOTE: 04/01/18 Seen as follow up for atrial fibrillation/flutter and anticoagulation. Agitated in four point restraints currently. Reportedly confused, combative, and pulled out HD access last night. - ROS not able to obtain ROS - Objective Vital Signs Temp Pulse Resp BP Pulse Ox 04/01/18 07:54 97.9 F 104 H 18 116/79 100 04/01/18 04:21 97.9 F 109 H 19 112/69 100 04/01/18 04:00 65 124/58 L 04/01/18 02:48 113 H 04/01/18 00:00 97.9 F 113 H 20 112/80 96 Weight 244 lb 0.827 oz 03/31/18 04/01/18 04/02/18 06:59 06:59 06:59 Intake Total 1360 730 Output Total 0 3150 Balance 1360 -2420 - Physical Examination General/Neuro: other: (alert. disoriented. combative) Neck: no JVD present Lungs: CTA, unlabored respirations Heart: PMI normal, other: (atrial flutter VR 100-110) Abdomen: NT/ND, soft - Telemetry Telemetry Rhythm: atrial flutter VR 100-110 - Labs Result Diagrams: 03/31/18 04:53 03/31/18 04:53 Troponin/CKMB CK-MB (CK-2) 0.4 ng/mL (0-6.6) 03/23/18 05:26 Troponin I 0.134 ng/mL (< 0.028) H 03/23/18 11:35 - Assessment/Plan 1. Persistent atrial arrhythmias - loading with amiodarone. Arrhythmias suppression is the best option for him at this time - not a candidate for ablation as he cannot take anticoagulation - GERARDO/CV scheduled for later today with cardiology 2. Antiphospholipid syndrome - spontaneous perinephric hematoma in 02/13. No OAC since that time 3. Combine diastolic/systolic heart failure, NYHA 3 4. Pancytopenia 5. Hypoxemia 6. ESRD - on HD. Access removed by pt last night. Plan for new access placement today per RN 7. Acute delirium -multifactorial with hypoxia, polypharmacy, and ESRD. Restraints in place for patient safety at this time. Ultimately, there are no other options for Mr Boo from EP perspective unless he is cleared to take anticoagulation. Suppression of his AF/maintaining SR is his best option. There is some consideration given to a lariat procedure for left atrial appendage closure, but this is better taken on in patient who is stable and in good health. The procedure could be difficult for his body to handle and the recovery can be quite painful. I would not recommend this with the patients current condition.
[2018-04-01] MEDS ORDERED: Heparin 1,000 UNITS/ML VIAL ONE (11:11)
[2018-04-01] MEDS ORDERED: CEFAZOLIN/Water 2 GM/20 ML SYRINGE SLOW IVP SCH (11:45)
[2018-04-01] MEDS ORDERED: CEFAZOLIN 2 GM/50 ML-DEXTROSE 2 GM in Premix Bag 1 BAG IVPB SCH (12:00)
[2018-04-01] MEDS ORDERED: PHENYLEPHRINE-NS 100 MCG/ML 10 ML SYRINGE ONE (12:36)
[2018-04-01] MEDS ORDERED: Lidocaine 1% PF 5 ML VIAL ONE (12:36)
[2018-04-01] MEDS ORDERED: PROPOFOL 200 MG/20 ML VIAL ONE (12:36)
[2018-04-01] MEDS ORDERED: Ziprasidone 20 MG VIAL IM PRN (13:42)
[2018-04-01] MEDS ORDERED: Sodium Chloride 0.9% 10 ML ONE (13:54)
[2018-04-01] MEDS ORDERED: Bupivacaine HCl 0.5%/Epinephrine 1:200,000/PF 30 ml Vial ONE (13:54)
[2018-04-01] MEDS ORDERED: Lidocaine 2% PF 5 ML VIAL ONE ×2 (13:54→13:58)
[2018-04-01] MEDS ORDERED: Heparin 10,000 UNITS/1 ML VIAL ONE (13:54)
[2018-04-01] MEDS ORDERED: Sterile Water 10 ML VIAL FS PRN (13:55)
[2018-04-01] MEDS ORDERED: Fentanyl 100 MCG/2 ML VIAL ONE (14:05)
[2018-04-01] MEDS ORDERED: CEFAZOLIN 2 GM/50 ML BAG ONE (14:15)
--- NOTE | 2018-04-01 15:07 | HP ---
HISTORY OF PRESENT ILLNESS: Hans Boo Junior is a 47-year-old male patient with end-stage renal disease who I placed a temporary dialysis catheter, initially attempted right femoral but had to place a left femoral. 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 He subsequently had a right IJ cuffed tunneled dialysis catheter placed on 01/27/2018 using that for dialysis. On 02/02/2018, I explored his left antecubital area, finding his veins and suitable for a fistula, and then on 02/08/2018, he had a right arm fistula placed outflow cephalic vein only, retrograde antecubital vein preserved. The patient was readmitted this hospitalization encephalopathic and pulled out his hemodialysis catheter. I was asked to see him regarding another dialysis catheter as his fistula is not mature for access. He was felt to have acute gastritis and fluid overload and dehydrated and was nauseated. I planned to place a temporary dialysis catheter today. He has a left IJ central line in place currently. He has a history of end-stage renal disease, hypertension, seizure disorder, paroxysmal atrial fibrillation, thrombocytopenia, DVT, elevated troponin, fluid overload, nausea, and vomiting. This hospitalization, Dr. De La Rosa has seen, Dr. Gunn, Oncology has seen him for his thrombocytopenia, antiphospholipid syndrome. He held his anticoagulation due to a retroperitoneal hematoma experienced when he had a hemorrhage from his left kidney, required embolization to stop the bleeding. Dr. Quintanilla and Dr. Hernandez have seen him. PAST MEDICAL HISTORY: See the past records. PHYSICAL EXAMINATION: VITAL SIGNS: 6 foot 5 inches, 244 pounds, BMI 28. Temperature 97.9, heart rate 106, respiratory rate 18, blood pressure 114/71. GENERAL: He was confused, but seems to be cooperative at this moment. LUNGS: Clear to auscultation. CARDIAC: Regular rhythm without murmur or gallop. ABDOMEN: Soft, obese. Right AV fistula with good thrill and bruit in right upper arm. ASSESSMENT AND PLAN: End-stage renal disease, so we will plan placement of hemodialysis catheter until his right AV fistula matures. Job ID: [id number]
[2018-04-01] MEDS ORDERED: Promethazine HCl 25 MG/ML VIAL SLOW IVP PRN (15:12)
[2018-04-01] MEDS ORDERED: Ondansetron HCl/PF 4 MG/2 ML Vial IVP PRN (15:12)
[2018-04-01] MEDS ORDERED: Promethazine HCl 25 MG/ML VIAL IM PRN (15:12)
[2018-04-01] MEDS: Amiodarone 200 MG TAB PO SCH ×2 (16:04→20:44)
[2018-04-01] MEDS: Benzonatate 100 MG CAP PO SCH ×3 (16:04→20:44)
[2018-04-01] MEDS: Cefdinir 300 MG CAP PO SCH ×2 (16:04→20:45)
[2018-04-01] MEDS: Carvedilol 6.25 MG TAB PO SCH ×2 (16:04→17:28)
[2018-04-01] MEDS: Famotidine 20 MG TAB PO SCH (16:05)
[2018-04-01] MEDS: Folic Acid/Vit B Comp W-C PO SCH (16:05)
[2018-04-01] MEDS: OXcarbazepine 300 MG TAB PO SCH ×2 (16:05→20:46)
[2018-04-01] MEDS: Docusate 100 MG CAP PO SCH ×2 (16:05→20:45)
[2018-04-01 16:06] LABS: Actual Bicarbonate (HCO3a) 25.3 mEq/L (22-28); Base Excess (BEa) 1.1 mEq/L (-2.0 to +3.0); CO2 Tension 37.9 mmHg (35.0-45.0); Calcium, Ionized 1.13 mmol/L (1.12-1.30); Potassium - ABG Lab 3.78 mmol/L (3.70-5.30); pH, Arterial 7.44 (7.35-7.45)
[2018-04-01] MEDS: Loratadine/Pseudoephedrine 10/240 mg Tablet PO SCH (16:06)
[2018-04-01] MEDS: Saccharomyces boulardii 250 MG CAP PO SCH (16:06)
[2018-04-01] MEDS: Polyethylene Glycol 3350 17 GM Packet PO SCH (16:06)
[2018-04-01 16:08] LABS: O2 Tension (PaO2) 50.3 mmHg (80.0-100.0)
[2018-04-01 16:09] LABS: ALV-art Gradient 52.055 (0-20); Puncture Site LBA
--- NOTE | 2018-04-01 16:22 | OP ---
DATE OF PROCEDURE: 04/01/2018 PREOPERATIVE DIAGNOSES: End-stage renal disease, immature fistula in arm, encephalopathic, confused. He pulled out his hemodialysis catheter. POSTOPERATIVE DIAGNOSES: End-stage renal disease, immature fistula in arm, encephalopathic, confused. He pulled out his hemodialysis catheter. PROCEDURE PERFORMED: Right IJ-cuffed tunneled hemodialysis catheter, ultrasound, fluoroscopy used. ANESTHESIA: , local of 0.5% Marcaine with epinephrine 30 mL mixed with 2% Xylocaine 10 mL, fluoroscopy and ultrasound used. DESCRIPTION OF PROCEDURE: The patient was taken to the operating room, where under anesthesia, neck and chest were clipped of hair, prepared with ChloraPrep, and draped in routine fashion. Local anesthetic infiltrated in the skin and subcutaneous tissue about the operative site. A 0.5% Marcaine with epinephrine 30 mL mixed with 2% Xylocaine 10 mL was used. Using ultrasound guidance, the right internal jugular vein was cannulated with a trocar catheter and J-wire threaded, trocar catheter removed. Skin was incised and enlarged sharply. A stab incision was made over the right chest. Tunneling device was used to tunnel pre-curved [employer] cuffed-tunneled hemodialysis catheter between the two incisions, placed in the fabric cuff beneath the skin and the catheter was secured with 3 interrupted sutures of 3-0 nylon. Biopatch and sterile dressings applied. Small and medium size dilators were placed over the J-wire and the internal jugular vein removed. Dilator and Peel-Away sheath placed over the J-wire in superior vena cava and dilator and J-wire were removed. Catheter was placed through the Peel-Away sheath. Peel-Away sheath was removed. Platysma was approximated with 4-0 Monocryl, skin with subdermal 4-0 Monocryl. Fluoroscopic images revealed good line placement. Each port aspirated, blood flushed with saline solution and heparinized saline solution of 1000 units heparin per mL indicating volume of the port. The patient tolerated the procedure well. Job ID: [id number]
--- NOTE | 2018-04-01 16:23 | RAD ---
CHEST ONE VIEW: HISTORY: Status post HemoSplit dialysis catheter placement. COMPARISON: 03/27/2018 FINDINGS: There is evidence of stable cardiomegaly and diffuse interstitial and alveolar opacities, likely due to edema. Infiltrate cannot be excluded. No significant pleural fluid. There is a right-sided Hemo Split dialysis catheter with the distal tip in the expected region of the right atrium. No pneumotho rax. IMPRESSION: 1. Right-sided HemoSplit dialysis catheter placement without evidence of pneumothorax. 2. Persistent interstitial and alveolar opacities, likely due to volume overload. Superimposed infi ltrate cannot be excluded. POS: [facility]
--- NOTE | 2018-04-01 17:06 | PDOC.PN ---
- Subjective Encounter Start Date: 04/01/18 Encounter Start Time: 10:30 Mr. Boo was seen today in follow-up of Atrial Fibrillation. He has been confused this morning, and combative. He is in restraints. - Objective Resuscitation Status - Order Detail: 03/23/18 07:56 Resuscitation Status Routine Resuscitation Status: FULL: Full Resuscitation MAR Reviewed: Yes Vital Signs & Weight: Vital Signs (12 hours) Temp Pulse Resp BP BP Pulse Ox 04/01/18 15:45 97.8 F 104 H 20 112/74 95 04/01/18 12:00 97.9 F 106 H 18 114/71 99 04/01/18 08:00 100 04/01/18 07:54 97.9 F 104 H 18 116/79 100 Weight Weight 244 lb 0.827 oz I&O: 03/31/18 04/01/18 04/02/18 06:59 06:59 06:59 Intake Total 1360 730 Output Total 0 3150 Balance 1360 -2420 Result Diagrams: 03/31/18 04:53 03/31/18 04:53 Phys Exam - Physical Examination HEENT: PERRLA Respiratory: no wheezing, no rales, no rhonchi, clear to auscultation bilateral Cardiovascular: RRR, no significant murmur, no rub Gastrointestinal: soft, non-tender, no distention, positive bowel sounds Musculoskeletal: no edema, pulses present Dx/Plan (1) Atrial fibrillation Code(s): I48.91 - UNSPECIFIED ATRIAL FIBRILLATION Status: Chronic Qualifiers: Atrial fibrillation type: paroxysmal (2) Acute respiratory failure with hypoxia Code(s): J96.01 - ACUTE RESPIRATORY FAILURE WITH HYPOXIA Status: Acute (3) Fluid overload Code(s): E87.70 - FLUID OVERLOAD, UNSPECIFIED Status: Acute (4) Antiphospholipid syndrome Code(s): D68.61 - ANTIPHOSPHOLIPID SYNDROME Status: Chronic Comment: Coumadin on hold since 02/13 due to perinephric hematoma (5) Chronic systolic congestive heart failure, NYHA class 3 Code(s): I50.22 - CHRONIC SYSTOLIC (CONGESTIVE) HEART FAILURE Status: Chronic Comment: Combined systolic and Diastolic heart failure (6) HTN (hypertension) Code(s): I10 - ESSENTIAL (PRIMARY) HYPERTENSION Status: Chronic Qualifiers: (7) Pancytopenia Code(s): D61.818 - OTHER PANCYTOPENIA Status: Chronic (8) Physical deconditioning Code(s): R53.81 - OTHER MALAISE Status: Chronic - Plan * Atrial fibrillation- plan is for cardioversion later today * Delirium- ? etiology- he is not currently on any medications known to cause delirium- Will be cautious to avoid sedating medications including antihistamines. Will discontinue the Tylenol with codeine. Will check an ABG to rule out hypercapnia, ammonia level, and UA. If it persists may need to check a CT or MRI of the brain, as he is at risk for CVA given the AFIB. One of his Home medications is Trileptal- which can be used for Bipolar Disorder- It is possible that this may be due to some underling Psychiatric condition which has decompensated- will give a trial of Fermin PRESCOTT * ESRD- continue dialysis as per nephrology * HTN- blood pressure is controlled * Deconditioning- continue PT/OT as tolerated .
--- NOTE | 2018-04-01 20:39 | PDOC.CTH ---
Cardiology Progress Note - Objective Vital Signs Temp Pulse Resp BP BP Pulse Ox 04/01/18 15:45 97.8 F 104 H 20 112/74 95 04/01/18 12:00 97.9 F 106 H 18 114/71 99 Weight 244 lb 0.827 oz 03/31/18 04/01/18 04/02/18 06:59 06:59 06:59 Intake Total 1360 730 0 Output Total 0 3150 0 Balance 1360 -2420 0 - Physical Examination General/Neuro: other: (confused. hallucinating.) Neck: no JVD present Lungs: CTA Heart: other: (irreg/irreg.) Abdomen: soft - Telemetry Telemetry Rhythm: Aflutter. - Labs Result Diagrams: 03/31/18 04:53 03/31/18 04:53 Troponin/CKMB CK-MB (CK-2) 0.4 ng/mL (0-6.6) 03/23/18 05:26 Troponin I 0.134 ng/mL (< 0.028) H 03/23/18 11:35 - Assessment/Plan 1. Afib/flutter - Remains in AFlutter/afib with HR 100-110s with Amiodarone 200mg BID and Coreg. Not on OAC at this moment due to hx of perinephric hematoma in 01/2018; Possible GERARDO/DCCV? The pt. was confused last night and is still confused ( see EP note).He is to have his dialysis catheter replaced today that he pulled out last night. I will cancel the GERARDO/Cardioversion for today and consider for early next week when he is more stable. At this time he is confused about the procedure. Since the HR is reasonably controlled, I feel that he can wait a couple more days. Per EP he is not a good candidate for the Lariat procedure and his options are limited. He is at significant risk of thrombosis due to the coagulopathy associated with his antiphospholipd disorder. Anticoagulation hopefully can be resumed soon but his risk of future bleeding may negate the use of threapeutic OAC. 2. Acute on chronic combined HF - Stable; on Coreg and HD. Not on DAVID/ARB 2/2 hypotensive and hx of CKD. 3. ESRD - on HD on , , Wed; managed by Dr De La Rosa. 4. Antiphospholipid antibody syndrome with hx of DVT/PE and IVC filter placement - On on OAC 2/2 hx of perinephric hematima in 01/2018 5. HTN - stable; Increase Coreg from 3.125mg to 6.25mg BID for tachycardia. Cont.to monitor 6. Hx of spontaneous perinephric retroperitoneal hematoma. 7. Hx of seizure -
[2018-04-01] MEDS: traMADol HCl 50 MG TAB PO PRN (20:45)
--- NOTE | 2018-04-01 21:02 | PRG ---
DATE OF SERVICE: 04/01/2018 SUBJECTIVE: Mr. Boo is a 47-year-old white male being followed up for his maintenance hemodialysis. Late last night, he inadvertently pulled his dialysis catheter. He was noted to be confused. He is agitated and currently on a 4-point restraint. The hospitalist has evaluated the patient for his acute psychosis. Geodon has been ordered for the patient. We are currently dialyzing this patient. My plan is to do a 2-hour hemodialysis for fluid removal. No other complaints except for the confusion. OBJECTIVE: VITAL SIGNS: Blood pressure 112/74, heart rate 104, respiratory rate 20, temperature 97.8, and pulse ox 95% on room air. GENERAL: The patient is awake, confused, and agitated. HEENT: Pinkish, slightly pale conjunctivae. Anicteric sclerae. NECK: No neck mass. No carotid bruits. No JVD. CHEST: No deformities. LUNGS: Decreased breath sounds. HEART: Tachycardic. No murmur, gallops or rubs. ABDOMEN: Globular, soft, and nontender. No masses. EXTREMITIES: No edema. No deformities. MEDICATIONS: Medications of April 01, 2018 was reviewed. LABORATORY DATA: Laboratories of March 31, 2018; white count 3.8, hemoglobin 8.1. Sodium 134, potassium 3.8, chloride 96, carbon dioxide 24, BUN 20, and creatinine 4.01. ASSESSMENT AND PLAN: 1. Congestive heart failure. Extra hemodialysis - 2-hour treatment with maximal fluid removal as tolerated. 2. End-stage renal disease. We will continue current hemodialysis regimen on Wednesday, , and Wednesday. 3. Acute hospital psychosis - supportive care, p.r.n. Geodon. 4. Anemia. Continuing weekly Epogen - p.r.n. blood transfusion. 5. Chronic thrombocytopenia, stable. Overall, I agree with current management. Continue current hemodialysis regimen. Job ID: [id number]
[2018-04-02] MEDS: traMADol HCl 50 MG TAB PO PRN ×2 (05:58→13:22)
[2018-04-02] MEDS ORDERED: Heparin 10,000 UNITS/ 10 ML VIAL ONE (11:00)
[2018-04-02] MEDS: OXcarbazepine 300 MG TAB PO SCH ×2 (11:55→21:58)
[2018-04-02] MEDS: Polyethylene Glycol 3350 17 GM Packet PO SCH (11:55)
[2018-04-02] MEDS: Famotidine 20 MG TAB PO SCH (11:55)
[2018-04-02] MEDS: Docusate 100 MG CAP PO SCH ×2 (11:56→21:36)
[2018-04-02] MEDS: Carvedilol 6.25 MG TAB PO SCH ×2 (11:56→21:42)
[2018-04-02] MEDS: Folic Acid/Vit B Comp W-C PO SCH (11:56)
[2018-04-02] MEDS: Amiodarone 200 MG TAB PO SCH ×2 (11:56→21:36)
[2018-04-02] MEDS: Loratadine/Pseudoephedrine 10/240 mg Tablet PO SCH (11:56)
[2018-04-02] MEDS: Cefdinir 300 MG CAP PO SCH ×2 (11:56→21:37)
[2018-04-02] MEDS: Saccharomyces boulardii 250 MG CAP PO SCH (11:56)
[2018-04-02] MEDS: Benzonatate 100 MG CAP PO SCH ×3 (11:57→21:42)
--- NOTE | 2018-04-02 12:08 | PRG ---
DATE OF SERVICE: 04/02/2018 SUBJECTIVE: Mr. Boo is a 47-year-old white male with ESRD and being followed by the [facility] for his maintenance hemodialysis. I am at the bedside, currently supervising his dialysis. He has had acute psychotic episodes and is currently on Geodon and is more sedated now. He also inadvertently pulled his dialysis catheter. A new one has been placed. It is currently working adequately. OBJECTIVE: VITAL SIGNS: Blood pressure is 115/76, heart rate 110, respiratory rate 17, temperature 97.5, and pulse ox 93%. GENERAL: Noted to be sedated, not in distress, comfortable, arousable. SKIN: Adequate turgor. HEENT: Slightly pale conjunctivae. Anicteric sclerae. No neck mass. No carotid bruits. No JVD. CHEST: No deformities. LUNGS: Clear breath sounds. No wheezing. No crackles. HEART: Tachycardic. No murmurs, gallops, or rubs. ABDOMEN: Globular, soft, nontender. EXTREMITIES: Trace edema. MEDICATIONS: Medications of 04/02/2018 reviewed. LABORATORY DATA: Laboratories of 03/31/2018; white count 3.8, hemoglobin 8.1, platelet count 47,000. Sodium 134, potassium 3.8, chloride 96, carbon dioxide 27, BUN 20, creatinine 4.01, glucose 80, calcium 8.6. ASSESSMENT AND PLAN: 1. End-stage renal disease, stable. Continue current three times a week hemodialysis. Again, fluid removal as tolerated by the patient. 2. Congestive heart failure, clinically improving. Maxing out fluid removal with dialysis. 3. Anemia, currently on Epogen at 10,000 units subcu daily. This has been adjusted upwards starting several days ago. 4. Acute psychotic episode, stable, on p.r.n. Geodon. Job ID: [id number]
--- NOTE | 2018-04-02 12:29 | PDOC.PN ---
- Subjective Encounter Start Date: 04/02/18 Encounter Start Time: 12:27 Mr. Boo was seen today in follow-up of Delirium and Atrial flutter. He is more calm today. He is out of restraints. It is noted that he was not on his oxygen, and it was off yesterday as well. - Objective Resuscitation Status - Order Detail: 03/23/18 07:56 Resuscitation Status Routine Resuscitation Status: FULL: Full Resuscitation MAR Reviewed: Yes Vital Signs & Weight: Vital Signs (12 hours) Temp Pulse Resp BP BP Pulse Ox 04/02/18 11:26 98.3 F 117 H 18 119/77 95 04/02/18 04:44 97.3 F L 110 H 17 115/76 93 L Weight Weight 242 lb 3 oz I&O: 04/01/18 04/02/18 04/03/18 06:59 06:59 06:59 Intake Total 730 500 Output Total 3150 0 Balance -2420 500 Result Diagrams: 03/31/18 04:53 03/31/18 04:53 Phys Exam - Physical Examination HEENT: PERRLA + rhonchi bilaterally, Cardiovascular: RRR, no significant murmur, no rub Gastrointestinal: soft, non-tender, no distention, positive bowel sounds Musculoskeletal: pulses present, edema present trace pedal edema Dx/Plan (1) Delirium Code(s): R41.0 - DISORIENTATION, UNSPECIFIED Status: Acute (2) Atrial fibrillation Code(s): I48.91 - UNSPECIFIED ATRIAL FIBRILLATION Status: Chronic Qualifiers: Atrial fibrillation type: paroxysmal (3) Acute respiratory failure with hypoxia Code(s): J96.01 - ACUTE RESPIRATORY FAILURE WITH HYPOXIA Status: Acute (4) Fluid overload Code(s): E87.70 - FLUID OVERLOAD, UNSPECIFIED Status: Acute (5) Antiphospholipid syndrome Code(s): D68.61 - ANTIPHOSPHOLIPID SYNDROME Status: Chronic Comment: Coumadin on hold since 02/13 due to perinephric hematoma (6) Chronic systolic congestive heart failure, NYHA class 3 Code(s): I50.22 - CHRONIC SYSTOLIC (CONGESTIVE) HEART FAILURE Status: Chronic Comment: Combined systolic and Diastolic heart failure (7) HTN (hypertension) Code(s): I10 - ESSENTIAL (PRIMARY) HYPERTENSION Status: Chronic Qualifiers: (8) Pancytopenia Code(s): D61.818 - OTHER PANCYTOPENIA Status: Chronic (9) Physical deconditioning Code(s): R53.81 - OTHER MALAISE Status: Chronic - Plan * Delirium- a bit better today. It does not appear he ever received any Geodon. I suspect hypoxemia may have contributed to this. Will continue to monitor. He still may have an underlying Psychiatric Condition * Atrial Flutter- heart rate is variable- Cardioversion has been postponed * ESRD- stable * HTN- blood pressure is stable * Continue PT/OT as tolerated.
--- NOTE | 2018-04-02 15:16 | PDOC.EVN ---
Event Note - Event Note Event Note: Called to see patient due increased respiratory distress and code green. The patient was very agitated, and complaining of some chest discomfort. While assessing him he developed Ventricular tachycardia, he was cardioverted 50 joules, then developed VF- he was shocked with 200 joules then converted to sinus. He briefly lost consciousness. He is now awake and alert, and oriented. Dr. Jefferson was notified, and recommends continue Amiodarone at the current dose. He has been moved to the ICU for closer monitoring.
[2018-04-02] MEDS ORDERED: EPINEPHrine 1 MG/10 ML Abboject SYRINGE ONE (17:00)
--- NOTE | 2018-04-02 23:36 | PDOC.CTH ---
Cardiology Progress Note - Objective Vital Signs Temp BP Pulse Ox 04/02/18 21:42 100/65 04/02/18 15:30 100 04/02/18 15:15 97.7 F Admit Weight 227 lb 1.218 oz Weight 242 lb 3 oz 04/01/18 04/02/18 04/03/18 06:59 06:59 06:59 Intake Total 730 500 200 Output Total 3150 0 Balance -2420 500 200 - Physical Examination General/Neuro: alert & oriented x3 Neck: no JVD present Lungs: CTA Heart: RRR Abdomen: NT/ND, soft - Telemetry Telemetry Rhythm: NSR - Labs Result Diagrams: 03/31/18 04:53 03/31/18 04:53 Troponin/CKMB CK-MB (CK-2) 0.4 ng/mL (0-6.6) 03/23/18 05:26 Troponin I 0.134 ng/mL (< 0.028) H 03/23/18 11:35 - Assessment/Plan 1. Afib/flutter - Remained in AFlutter/afib with HR 100-110s until this AM when he developed resp. distress and then V-fib.He was ceadioverted and since then has maintained NSR. Continue with Amiodarone 200mg BID and Coreg. He may be a candidate for an AVJ ablation and a Bi-V ICD.Not on OAC at this moment due to hx of perinephric hematoma in 01/2018; Possible GERARDO/DCCV? The pt. was confused last night and is still confused ( see EP note). Per EP he is not a good candidate for the Lariat procedure and his options are limited. He is at significant risk of thrombosis due to the coagulopathy associated with his antiphospholipd disorder. Anticoagulation hopefully can be resumed soon but his risk of future bleeding may negate the use of threapeutic OAC. 2. Acute on chronic combined HF - Stable; on Coreg and HD. Not on DAVID/ARB 2/2 hypotensive and hx of CKD. 3. ESRD - on HD on , , Wed; managed by Dr De La Rosa. 4. Antiphospholipid antibody syndrome with hx of DVT/PE and IVC filter placement - On on OAC 2/2 hx of perinephric hematima in 01/2018 5. HTN - stable; Increase Coreg from 3.125mg to 6.25mg BID for tachycardia. Cont.to monitor 6. Hx of spontaneous perinephric retroperitoneal hematoma. 7. Hx of seizure -
[2018-04-03] MEDS: Melatonin 3 MG TAB PO PRN (00:28)
[2018-04-03 04:32] LABS: HBSAg Index 0.14 S/CO (0-0.99); Hep B Surf Ag Non-Reactive S/CO (NonReactive)
[2018-04-03] MEDS: Saccharomyces boulardii 250 MG CAP PO SCH (08:47)
[2018-04-03] MEDS: Amiodarone 200 MG TAB PO SCH ×2 (08:47→21:22)
[2018-04-03] MEDS: Polyethylene Glycol 3350 17 GM Packet PO SCH (08:48)
[2018-04-03] MEDS: Docusate 100 MG CAP PO SCH ×2 (08:48→21:22)
[2018-04-03] MEDS: Cefdinir 300 MG CAP PO SCH ×2 (08:48→21:22)
[2018-04-03] MEDS: Benzonatate 100 MG CAP PO SCH ×3 (08:48→21:22)
[2018-04-03] MEDS: Famotidine 20 MG TAB PO SCH (08:48)
[2018-04-03] MEDS: Carvedilol 6.25 MG TAB PO SCH ×2 (09:35→17:05)
[2018-04-03] MEDS: Loratadine/Pseudoephedrine 10/240 mg Tablet PO SCH (10:15)
[2018-04-03] MEDS: OXcarbazepine 300 MG TAB PO SCH ×2 (10:15→21:22)
[2018-04-03] MEDS: Folic Acid/Vit B Comp W-C PO SCH (10:15)
--- NOTE | 2018-04-03 10:31 | PRG ---
DATE OF SERVICE: 04/03/2018 SUBJECTIVE: Mr. Boo is a 47-year-old white male being followed by [facility] for his maintenance hemodialysis. He does have ESRD. Yesterday, he developed ventricular tachycardia. He was cardioverted with subsequent conversion to normal sinus rhythm. This morning, he is feeling better. He is stable. He voices no new complaints. His mentation much improved. OBJECTIVE: VITAL SIGNS: Blood pressure is 94/65, heart rate 74, respiratory rate 16, and pulse ox 97%. GENERAL: Awake, supine, and comfortable, not in overt distress. SKIN: Adequate turgor. HEENT: He has pinkish conjunctivae. Anicteric sclerae. NECK: No neck mass. No carotid bruits. No JVD. CHEST: No deformities. LUNGS: Clear breath sounds. HEART: Normal sinus rhythm. No murmurs, gallops, or rubs. ABDOMEN: Globular, soft, and nontender. No masses. EXTREMITIES: No edema. No deformities. MEDICATIONS: Medications of April 03, 2018, was reviewed. LABORATORY DATA: Laboratories of March 31, 2018; sodium 134, potassium 3.8, chloride 96, carbon dioxide 27, BUN 20, and creatinine 4.01. CBC of March 31, 2018, was reviewed - white count 3.8, hemoglobin 8.1, and platelet count was 47,000. ASSESSMENT/PLAN: 1. Status post ventricular tachycardia, status post cardioversion. Continuing amiodarone as per Cardiology recommendation. 2. End-stage renal disease, stable. Continue current hemodialysis regimen. He did receive hemodialysis yesterday. There is no indication for any emergent hemodialysis. Continue current dialysis regimen on Wednesday, , and Wednesday. 3. Chronic thrombocytopenia - recheck CBC tomorrow. 4. Chronic anemia, on Epogen - weekly dosing. Job ID: [id number]
--- NOTE | 2018-04-03 15:13 | PDOC.PN ---
- Subjective Encounter Start Date: 04/03/18 Encounter Start Time: 11:45 Mr. Boo was seen today in follow-up of Atrial flutter. He is awake and alert. He does not have any complaints. He denies chest pain or difficulty breathing. - Objective Resuscitation Status - Order Detail: 03/23/18 07:56 Resuscitation Status Routine Resuscitation Status: FULL: Full Resuscitation MAR Reviewed: Yes Vital Signs & Weight: Vital Signs (12 hours) Temp 04/03/18 11:00 97.9 F 04/03/18 08:00 97.7 F 04/03/18 04:00 97.8 F Weight Admit Weight 227 lb 1.218 oz Weight 242 lb 3 oz Most Recent Monitor Data Heart Rate from ECG 79 NIBP 103/73 NIBP BP-Mean 83 Respiration from ECG 11 SpO2 98 I&O: 04/02/18 04/03/18 04/04/18 06:59 06:59 06:59 Intake Total 500 350 720 Output Total 0 225 0 Balance 500 125 720 Result Diagrams: 03/31/18 04:53 03/31/18 04:53 Phys Exam - Physical Examination HEENT: PERRLA Cardiovascular: RRR, no significant murmur, no rub Gastrointestinal: soft, non-tender, no distention, positive bowel sounds Musculoskeletal: no edema, pulses present Dx/Plan (1) Atrial fibrillation Code(s): I48.91 - UNSPECIFIED ATRIAL FIBRILLATION Status: Chronic Qualifiers: Atrial fibrillation type: paroxysmal (2) Delirium Code(s): R41.0 - DISORIENTATION, UNSPECIFIED Status: Acute (3) Acute respiratory failure with hypoxia Code(s): J96.01 - ACUTE RESPIRATORY FAILURE WITH HYPOXIA Status: Acute (4) Fluid overload Code(s): E87.70 - FLUID OVERLOAD, UNSPECIFIED Status: Acute (5) Antiphospholipid syndrome Code(s): D68.61 - ANTIPHOSPHOLIPID SYNDROME Status: Chronic Comment: Coumadin on hold since 02/13 due to perinephric hematoma (6) Chronic systolic congestive heart failure, NYHA class 3 Code(s): I50.22 - CHRONIC SYSTOLIC (CONGESTIVE) HEART FAILURE Status: Chronic Comment: Combined systolic and Diastolic heart failure (7) HTN (hypertension) Code(s): I10 - ESSENTIAL (PRIMARY) HYPERTENSION Status: Chronic Qualifiers: (8) Pancytopenia Code(s): D61.818 - OTHER PANCYTOPENIA Status: Chronic (9) Physical deconditioning Code(s): R53.81 - OTHER MALAISE Status: Chronic (10) End stage renal disease on dialysis Code(s): N18.6 - END STAGE RENAL DISEASE; Z99.2 - DEPENDENCE ON RENAL DIALYSIS Status: Chronic - Plan * Atrial Flutter- he has been in sinus rhythm - await further recommendations from CArdiology and EP. Continue Amiodarone * Deliruim- this appears to be improved- continue to monitor * Chronic systolic heart failure- compensated * ESRD- continue dialysis * Physical Deconditioning- continue PT/OT .
--- NOTE | 2018-04-03 16:37 | PDOC.CTH ---
Cardiology Progress Note - Subjective Pt seen and evcal. He is still confused. Maintaining NSR - Objective Vital Signs Temp 04/03/18 11:00 97.9 F 04/03/18 08:00 97.7 F Admit Weight 227 lb 1.218 oz Weight 242 lb 3 oz 04/02/18 04/03/18 04/04/18 06:59 06:59 06:59 Intake Total 500 350 720 Output Total 0 225 0 Balance 500 125 720 - Physical Examination General/Neuro: alert & oriented x3, other: (still some confusion.) Neck: no JVD present Lungs: CTA Heart: RRR Abdomen: NT/ND, soft - Telemetry Telemetry Rhythm: NSR - Labs Result Diagrams: 03/31/18 04:53 03/31/18 04:53 Troponin/CKMB CK-MB (CK-2) 0.4 ng/mL (0-6.6) 03/23/18 05:26 Troponin I 0.134 ng/mL (< 0.028) H 03/23/18 11:35 - Assessment/Plan 1. Afib/flutter - Maintaining NSR after cardioversion for V-fib. 2. Acute on chronic combined HF - Stable; on Coreg and HD. Not on DVAID/ARB 2/2 hypotensive and hx of CKD. 3. ESRD - on HD on , , Wed; managed by Dr De La Rosa. 4. Antiphospholipid antibody syndrome with hx of DVT/PE and IVC filter placement - Not on OAC 2/2 hx of perinephric hematima in 01/2018 5. HTN - stable; Increase Coreg from 3.125mg to 6.25mg BID for tachycardia. Cont.to monitor 6. Hx of spontaneous perinephric retroperitoneal hematoma. 7. Hx of seizure -
[2018-04-04 04:46] LABS: Anion Gap 14 mmol/L (10-20); BUN (Urea Nitrogen) 19 mg/dL (8.9-20.6); Calc. Creatinine Clearance 30 mL/min (70-130); Calcium 8.9 mg/dL (7.8-10.44); Carbon Dioxide 27 mmol/L (22-29); Chloride 97 mmol/L (98-107); Estimated GFR-MDRD 13; Glucose 98 mg/dL (70-105); Potassium 3.9 mmol/L (3.5-5.1); Sodium 134 mmol/L (136-145)
[2018-04-04 04:53] LABS: #Eosinphils 0.2 thou/uL (0.0-0.7); #Lymphocytes 0.9 thou/uL (1.20-3.40); #Monocytes 0.5 thou/uL (0.11-0.59); #Neutrophils 3.6 thou/uL (1.40-6.50); %Basophils 0.1 % (0.0-1.0); %Eosinophils 3.5 % (0.0-10.0); %Lymphocytes 18.3 % (21.0-51.0); %Monocytes 8.9 % (0.0-10.0); %Neutrophils 69.1 % (42.0-75.0); Hemoglobin 8.4 g/dL (14.0-18.0); Mean Corpuscular HGB CONC 32.7 g/dL (32.0-36.0); Mean Corpuscular Hemoglobin 30.7 pg (27.0-31.0); Mean Corpuscular Volume 93.8 fL (78.0-98.0); Mean Platelet Volume 9.1 fL (7.4-10.4); Platelet Count 50 thou/uL (130-400); Red Blood Cell (RBC) Count 2.74 mill/uL (4.70-6.10); White Blood Cell (WBC) Count 5.1 thou/uL (4.8-10.8)
[2018-04-04] MEDS: Carvedilol 6.25 MG TAB PO SCH ×2 (07:58→16:31)
[2018-04-04] MEDS: Cefdinir 300 MG CAP PO SCH ×2 (07:59→20:06)
[2018-04-04] MEDS: Benzonatate 100 MG CAP PO SCH ×3 (07:59→20:06)
[2018-04-04] MEDS: Saccharomyces boulardii 250 MG CAP PO SCH (07:59)
[2018-04-04] MEDS: Amiodarone 200 MG TAB PO SCH ×2 (08:00→20:06)
[2018-04-04] MEDS: Famotidine 20 MG TAB PO SCH (08:00)
[2018-04-04] MEDS: Polyethylene Glycol 3350 17 GM Packet PO SCH (08:00)
--- NOTE | 2018-04-04 09:09 | PRG ---
DATE OF SERVICE: 04/04/2018 SUBJECTIVE: Mr. Boo is a 47-year-old white male with ESRD, currently on maintenance hemodialysis. Recently, the patient went to [facility] and he was cardioverted. Since 2 days ago, he has maintained normal sinus rhythm. He voices no new complaints. He does have decreased appetite. No chest pain or shortness of breath. OBJECTIVE: VITAL SIGNS: Blood pressure is 120/83, heart rate 92, respiratory rate 13, and pulse ox 95%. GENERAL: Noted to be awake, supine, comfortable, not in overt distress. SKIN: Adequate turgor. HEENT: Slightly pale conjunctivae. Anicteric sclerae. NECK: No neck mass. No carotid bruits. No JVD. CHEST: No deformities. LUNGS: Clear breath sounds. No wheezing. No crackles. HEART: Normal sinus rhythm. No murmurs. No gallops. No rubs. ABDOMEN: Globular, soft, nontender. No masses. EXTREMITIES: Trace edema. MEDICATIONS: Medications of April 04, 2018, were reviewed. LABORATORY DATA: Laboratories of April 04, 2018; white count 5.1, hemoglobin 8.4, platelet count was noted at 50,000. Sodium 134, potassium 3.9, chloride 97, carbon dioxide 27, BUN 19, creatinine 4.69, glucose 198, calcium 8.9. ASSESSMENT AND PLAN: 1. End-stage renal disease, stable. No indication for an emergent hemodialysis. Continue supportive care. Fluid removal only as tolerated. We will continue his current three times a week hemodialysis. 2. Anemia, on weekly Epogen. Recently, Epogen has been increased to 10,000 units subcutaneous every week. 3. Status post ventricular fibrillation/ventricular tachycardia-stable, on normal sinus rhythm, currently on amiodarone and Cardiology is following. 4. Overall, agree with current management. Job ID: [id number]
[2018-04-04] MEDS: OXcarbazepine 300 MG TAB PO SCH ×2 (09:22→20:06)
[2018-04-04] MEDS: Loratadine/Pseudoephedrine 10/240 mg Tablet PO SCH (09:43)
[2018-04-04] MEDS: Folic Acid/Vit B Comp W-C PO SCH (09:43)
[2018-04-04] MEDS: Docusate 100 MG CAP PO SCH ×2 (09:43→20:06)
--- NOTE | 2018-04-04 11:24 | PDOC.PN ---
- Subjective Encounter Start Date: 04/04/18 Encounter Start Time: 10:20 Mr. Boo was seen today in follow-up of atrial flutter, and delirium. He is doing better today. He is less agitated, and more oriented. - Objective Resuscitation Status - Order Detail: 03/23/18 07:56 Resuscitation Status Routine Resuscitation Status: FULL: Full Resuscitation MAR Reviewed: Yes Vital Signs & Weight: Vital Signs (12 hours) Temp Pulse Ox 04/04/18 08:00 95 04/04/18 07:00 99.4 F 04/04/18 04:00 99.3 F 04/04/18 00:00 98.6 F Weight Admit Weight 227 lb 1.218 oz Weight 242 lb 3 oz Most Recent Monitor Data Heart Rate from ECG 84 NIBP 113/73 NIBP BP-Mean 86 Respiration from ECG 15 SpO2 98 I&O: 04/03/18 04/04/18 04/05/18 06:59 06:59 06:59 Intake Total 350 1060 220 Output Total 225 0 0 Balance 125 1060 220 Result Diagrams: 04/04/18 04:10 04/04/18 04:10 Phys Exam - Physical Examination HEENT: PERRLA Respiratory: no wheezing, no rales, no rhonchi + coarse breath sounds Cardiovascular: RRR, no significant murmur, no rub Gastrointestinal: soft, non-tender, no distention, positive bowel sounds Musculoskeletal: pulses present, edema present Dx/Plan (1) Atrial fibrillation Code(s): I48.91 - UNSPECIFIED ATRIAL FIBRILLATION Status: Chronic Qualifiers: Atrial fibrillation type: paroxysmal (2) Delirium Code(s): R41.0 - DISORIENTATION, UNSPECIFIED Status: Acute (3) Acute respiratory failure with hypoxia Code(s): J96.01 - ACUTE RESPIRATORY FAILURE WITH HYPOXIA Status: Acute (4) Fluid overload Code(s): E87.70 - FLUID OVERLOAD, UNSPECIFIED Status: Acute (5) Antiphospholipid syndrome Code(s): D68.61 - ANTIPHOSPHOLIPID SYNDROME Status: Chronic Comment: Coumadin on hold since 02/13 due to perinephric hematoma (6) Chronic systolic congestive heart failure, NYHA class 3 Code(s): I50.22 - CHRONIC SYSTOLIC (CONGESTIVE) HEART FAILURE Status: Chronic Comment: Combined systolic and Diastolic heart failure (7) HTN (hypertension) Code(s): I10 - ESSENTIAL (PRIMARY) HYPERTENSION Status: Chronic Qualifiers: (8) Pancytopenia Code(s): D61.818 - OTHER PANCYTOPENIA Status: Chronic (9) Physical deconditioning Code(s): R53.81 - OTHER MALAISE Status: Chronic (10) End stage renal disease on dialysis Code(s): N18.6 - END STAGE RENAL DISEASE; Z99.2 - DEPENDENCE ON RENAL DIALYSIS Status: Chronic - Plan * Atrial fibrillation- he is now in sinus rhythm. continue amiodarone. He is not considered a candidate for ablation * Delirium- improved- ? etiology * ESRD- continue maintenance HD * HTN- blood pressure is stable. * Physical Deconditioning- continue PT/OT * He is stable to move out of the ICU
--- NOTE | 2018-04-04 12:33 | PRG ---
DATE OF SERVICE: 04/04/2018 SUBJECTIVE: Hans Boo is a 47-year-old gentleman, remains in the ICU. OBJECTIVE: VITAL SIGNS: Blood pressure is 113/73, pulse 74, respiratory rate 20. CHEST: Decreased breath sounds. No wheezing. CARDIAC: Normal S1 and S2. No gallops. ABDOMEN: No masses. LABORATORY DATA: Creatinine 4.69. White count is normal. IMPRESSION: 1. Chronic renal failure, on dialysis. 2. Antiphospholipid syndrome, long-term anticoagulation with filter in place. 3. _ ventricular fibrillation. Drcesion to put an AICD being made at this stage. Otherwise, continue supportive care. Continue dialysis. PLAN: Pulmonary/Critical Care will follow while in the ICU. Job ID: [id number] MTDD
--- NOTE | 2018-04-04 16:05 | PDOC.CTH ---
Cardiology Progress Note - Subjective EP follow up 04/04/18 Pt has no new complatns. Had developed VT over wekend and requiried defibrillation. Now maintaining SR. - ROS not able to obtain ROS - Objective Vital Signs Temp Pulse Ox 04/04/18 13:00 99.3 F 04/04/18 08:00 95 04/04/18 07:00 99.4 F Admit Weight 227 lb 1.218 oz Weight 242 lb 3 oz VS 92/79. 76BPM 04/03/18 04/04/18 04/05/18 06:59 06:59 06:59 Intake Total 350 1060 260 Output Total 225 0 0 Balance 125 1060 260 - Physical Examination General/Neuro: alert & oriented x3 Neck: no JVD present Lungs: CTA Heart: RRR Abdomen: NT/ND, soft - Telemetry Telemetry Rhythm: SR - Labs Result Diagrams: 04/04/18 04:10 04/04/18 04:10 Troponin/CKMB CK-MB (CK-2) 0.4 ng/mL (0-6.6) 03/23/18 05:26 Troponin I 0.134 ng/mL (< 0.028) H 03/23/18 11:35 - Assessment/Plan - Assessment/Plan 1. Persistent atrial arrhythmias - loading with amiodarone. Arrhythmias suppression is the best option for him at this time - not a candidate for ablation as he cannot take anticoagulation - Suppression of his AF/maintaining SR is his best option. 2. Antiphospholipid syndrome - spontaneous perinephric hematoma in 02/13. No OAC since that time. 3. Combine diastolic/systolic heart failure, NYHA 3 4. Pancytopenia 5. Hypoxemia 6. ESRD - on HD. Access removed by pt last night. Plan for new access placement today per RN 7. Acute delirium -multifactorial with hypoxia, polypharmacy, and ESRD. Restraints in place for patient safety at this time. 8. Acute VT requiring defibrillation despite being on amiodarone - spontan induced during rapid AFL/Afib.. Most strips suggest monomorphic VT. Likely will be a candidate for ICD implant. Poss BiV in preparation for AV miranda ablation. There is some consideration given to a lariat procedure for left atrial appendage closure, but this is better taken on in patient who is stable and in good health. The procedure could be difficult for his body to handle and the recovery can be quite painful. I would not recommend this with the patients current condition.
[2018-04-04] MEDS: Acetaminophen 500 MG TAB PO PRN (17:07)
[2018-04-05] MEDS: Acetaminophen 500 MG TAB PO PRN (02:30)
[2018-04-05] MEDS: Carvedilol 6.25 MG TAB PO SCH ×2 (07:50→20:04)
[2018-04-05] MEDS: Amiodarone 200 MG TAB PO SCH ×2 (08:00→21:22)
[2018-04-05] MEDS: Cefdinir 300 MG CAP PO SCH ×2 (08:01→21:22)
[2018-04-05] MEDS: Famotidine 20 MG TAB PO SCH (08:01)
[2018-04-05] MEDS: Folic Acid/Vit B Comp W-C PO SCH (08:03)
[2018-04-05] MEDS: Saccharomyces boulardii 250 MG CAP PO SCH (08:03)
[2018-04-05] MEDS: Polyethylene Glycol 3350 17 GM Packet PO SCH (08:04)
[2018-04-05] MEDS: Benzonatate 100 MG CAP PO SCH ×3 (08:04→21:22)
[2018-04-05] MEDS: Docusate 100 MG CAP PO SCH ×2 (08:04→21:22)
[2018-04-05] MEDS: Loratadine/Pseudoephedrine 10/240 mg Tablet PO SCH (09:14)
[2018-04-05] MEDS: OXcarbazepine 300 MG TAB PO SCH ×2 (09:14→21:22)
--- NOTE | 2018-04-05 09:34 | PRG ---
DATE OF SERVICE: 04/05/2018 SUBJECTIVE: Mr. Boo is a 47-year-old white male with ESRD, currently on maintenance hemodialysis. Over the weekend, he developed VT/VFib and underwent defibrillation. Doing well. The patient is currently being followed by Cardiology. Dr. Godwin has been consulted. Currently, he is on amiodarone. For the moment, he is not a candidate for ablation. No other complaints today. He still has decreased p.o. intake-20% of breakfast was finished today. No complaints of chest pain or shortness of breath. OBJECTIVE: VITAL SIGNS: Blood pressure 121/72, heart rate 82, respiratory rate 16, temperature 98.7. GENERAL: Awake, supine, lethargic, not in distress. SKIN: Adequate turgor. HEENT: Slightly pale conjunctivae. Anicteric sclerae. NECK: No neck mass. No carotid bruits. No JVD. CHEST: No deformities. LUNGS: Decreased breath sounds. HEART: Normal sinus rhythm. No murmur. No gallops. No rubs. ABDOMEN: Globular, soft, nontender. No masses. EXTREMITIES: No edema. No deformities. MEDICATIONS: Medications of April 05, 2018, were reviewed. LABORATORY DATA: Laboratories of April 04, 2018, white count 5.1, hemoglobin 8.4. Sodium 134, potassium 3.9, chloride 97, carbon dioxide 27, BUN 19, creatinine 4.69, glucose 98, calcium 8.9. ASSESSMENT AND PLAN: 1. End-stage renal disease, stable. Continuing 3 times a week hemodialysis. Fluid removal only as tolerated by the patient. Currently, using no heparin to minimal heparin. 2. Status post ventricular tachycardia/ventricular fibrillation-currently in normal sinus rhythm and on amiodarone. He is status post defibrillation. Cardiology is following. 3. Anemia. Continuing weekly Epogen of 10,000 units subcutaneous every week. 4. Overall, prognosis remains guarded. Job ID: [id number]
--- NOTE | 2018-04-05 10:14 | PRG ---
DATE OF SERVICE: 04/05/2018 SUBJECTIVE: Hans Boo this morning remains in the ICU, agitated, confused. OBJECTIVE: VITAL SIGNS: Blood pressure is 107/63, pulse 72, respiratory rate 18, and sats 98%. CHEST: Decreased breath sounds. No wheezing. CARDIAC: Normal S1 and S2. No gallops. ABDOMEN: No mass. IMPRESSION: 1. Status post ventricular tachycardia and cardiac arrhythmias. 2. Antiphospholipid syndrome, congestive heart failure, hypoxemia, renal failure. PLAN: At this stage, continue input from Cardiology. He is on amiodarone 200 twice a day. Supportive care. He is to be transferred out of the ICU today. Job ID: [id number]
--- NOTE | 2018-04-05 13:55 | PDOC.CTH ---
Cardiology Progress Note - Subjective The pt seen and examined. No overnight events. No cardiac complaints. - Objective Vital Signs Temp Pulse Pulse BP BP Pulse Ox 04/05/18 12:00 98.4 F 04/05/18 09:10 73 73 111/63 91/47 L 04/05/18 08:00 98.7 F 94 L 04/05/18 04:00 98.6 F Admit Weight 227 lb 1.218 oz Weight 242 lb 3 oz 04/04/18 04/05/18 04/06/18 06:59 06:59 06:59 Intake Total 1060 490 325 Output Total 0 0 180 Balance 1060 490 145 - Physical Examination General/Neuro: other: (intermittent confused) Lungs: CTA (diminished at bases) Heart: RRR Abdomen: soft Extremities: other: (1-2+ pitting BLE edema) - Telemetry Telemetry Rhythm: SR - Labs Result Diagrams: 04/04/18 04:10 04/04/18 04:10 Troponin/CKMB CK-MB (CK-2) 0.4 ng/mL (0-6.6) 03/23/18 05:26 Troponin I 0.134 ng/mL (< 0.028) H 03/23/18 11:35 - Assessment/Plan 1. Afib/flutter - Maintaining NSR after cardioversion for V-fib. 2. Acute on chronic combined HF - Stable; on Coreg and HD. Not on DAVID/ARB 2/2 hypotensive and hx of CKD. 3. ESRD - on HD on , , Wed; managed by Dr De La Rosa. 4. Antiphospholipid antibody syndrome with hx of DVT/PE and IVC filter placement - Not on OAC 2/2 hx of perinephric hematima in 01/2018 5. HTN - stable; 6. Hx of spontaneous perinephric retroperitoneal hematoma. 7. Hx of seizure - * Per EP, possible NITHYA ligation when he is in good health, cont current condition. Review of Systems - Review of Systems Constitutional: reports: no symptoms reported EENTM: reports: no symptoms reported Respiratory: reports: no symptoms reported Cardiac (ROS): reports: no symptoms reported ABD/GI: reports: no symptoms reported : reports: no symptoms reported Musculoskeletal: reports: no symptoms reported
--- NOTE | 2018-04-05 14:32 | PDOC.CTH ---
Cardiology Progress Note - Subjective EP follow up 04/05/18 Pt has no new complaints. Had developed VT over wekend and required defibrillation. Continues to maintain SR. No new cardiac concerns or complaints - Objective Vital Signs Temp Pulse Pulse BP BP Pulse Ox 04/05/18 12:00 98.4 F 04/05/18 09:10 73 73 111/63 91/47 L 04/05/18 08:00 98.7 F 94 L 04/05/18 04:00 98.6 F Admit Weight 227 lb 1.218 oz Weight 242 lb 3 oz 04/04/18 04/05/18 04/06/18 06:59 06:59 06:59 Intake Total 1060 490 325 Output Total 0 0 180 Balance 1060 490 145 - Physical Examination General/Neuro: alert & oriented x3, NAD Neck: no JVD present Lungs: CTA, unlabored respirations Heart: RRR Abdomen: NT/ND, soft - Labs Result Diagrams: 04/04/18 04:10 04/04/18 04:10 Troponin/CKMB CK-MB (CK-2) 0.4 ng/mL (0-6.6) 03/23/18 05:26 Troponin I 0.134 ng/mL (< 0.028) H 03/23/18 11:35 - Assessment/Plan 1. Persistent atrial arrhythmias - loaded with amiodarone last week. Arrhythmias suppression is the best option for him at this time - not a candidate for ablation as he cannot take anticoagulation - Suppression of his AF/maintaining SR remains his best option. - Consider lariat for LAAO later if patient condition stabilizes 2. Antiphospholipid syndrome - spontaneous perinephric hematoma in 02/13. No OAC since that time. 3. Combine diastolic/systolic heart failure, NYHA 3 4. Pancytopenia 5. Hypoxemia 6. ESRD - on HD, per nephrology 7. Spontaneous monomorphic ventricular tachycardia - requiring defibrillation despite being on amiodarone - spontan induced during rapid AFL/Afib.. Most strips suggest monomorphic VT. Likely will be a candidate for ICD implant. - Poss BiV in preparation for ultimate AV miranda ablation. 8. Acute delirium - largely resolved but has poor short term memory. Discussed potential Bi-V ICD and future AVJ ablation with and patient. Both consent to the procedure. Plan for possible implant on , but will require coordination with platelet transfusion beforehand to prevent acute bleeding complications.
[2018-04-05] MEDS: Epoetin (ESRD) 10,000 UNITS/ML VIAL SC SCH (15:44)
--- NOTE | 2018-04-05 15:48 | PDOC.PN ---
- Subjective Encounter Start Date: 04/05/18 Encounter Start Time: 07:45 Subjective: awake, no sob -: is moving all extremities - Objective Resuscitation Status - Order Detail: 03/23/18 07:56 Resuscitation Status Routine Resuscitation Status: FULL: Full Resuscitation MAR Reviewed: Yes Vital Signs & Weight: Vital Signs (12 hours) Temp Pulse Pulse BP BP Pulse Ox 04/05/18 12:00 98.4 F 04/05/18 09:10 73 73 111/63 91/47 L 04/05/18 08:00 98.7 F 94 L 04/05/18 04:00 98.6 F Weight Admit Weight 227 lb 1.218 oz Weight 242 lb 3 oz Most Recent Monitor Data Heart Rate from ECG 72 NIBP 96/51 NIBP BP-Mean 66 Respiration from ECG 20 SpO2 96 I&O: 04/04/18 04/05/18 04/06/18 06:59 06:59 06:59 Intake Total 1060 490 325 Output Total 0 0 180 Balance 1060 490 145 Result Diagrams: 04/04/18 04:10 04/04/18 04:10 Phys Exam - Physical Examination HEENT: PERRLA, moist MMs Neck: no JVD, supple Respiratory: no wheezing, no rales Cardiovascular: RRR, no significant murmur Gastrointestinal: soft, non-tender, positive bowel sounds Musculoskeletal: no edema, pulses present Neurological: non-focal, moves all 4 limbs Dx/Plan (1) Acute respiratory failure with hypoxia Code(s): J96.01 - ACUTE RESPIRATORY FAILURE WITH HYPOXIA Status: Resolved (2) Acute exacerbation of CHF (congestive heart failure) Code(s): I50.9 - HEART FAILURE, UNSPECIFIED Status: Acute Qualifiers: Heart failure type: combined systolic and diastolic Qualified Code(s): I50.43 - Acute on chronic combined systolic (congestive) and diastolic ( congestive) heart failure Comment: ef of 40%, class C (3) PNA (pneumonia) Code(s): J18.9 - PNEUMONIA, UNSPECIFIED ORGANISM Status: Suspected Qualifiers: Pneumonia type: due to unspecified organism Laterality: bilateral (4) Antiphospholipid syndrome Code(s): D68.61 - ANTIPHOSPHOLIPID SYNDROME Status: Chronic Comment: Coumadin on hold since 02/13 due to perinephric hematoma (5) Atrial fibrillation Code(s): I48.91 - UNSPECIFIED ATRIAL FIBRILLATION Status: Chronic Qualifiers: Atrial fibrillation type: paroxysmal (6) Cardiomyopathy Code(s): I42.9 - CARDIOMYOPATHY, UNSPECIFIED Status: Chronic (7) Gout Code(s): M10.9 - GOUT, UNSPECIFIED Status: Chronic Qualifiers: Gout site: unspecified site Gout etiology: unspecified cause (8) HTN (hypertension) Code(s): I10 - ESSENTIAL (PRIMARY) HYPERTENSION Status: Chronic Qualifiers: Hypertension type: essential hypertension (9) History of pulmonary embolism Code(s): Z86.711 - PERSONAL HISTORY OF PULMONARY EMBOLISM Status: Chronic Comment: h/o IVC filter (10) Physical deconditioning Code(s): R53.81 - OTHER MALAISE Status: Chronic (11) Seizure disorder Code(s): G40.909 - EPILEPSY, UNSP, NOT INTRACTABLE, WITHOUT STATUS EPILEPTICUS Status: Chronic (12) Thrombocytopenia Code(s): D69.6 - THROMBOCYTOPENIA, UNSPECIFIED Status: Chronic (13) Fluid overload Code(s): E87.70 - FLUID OVERLOAD, UNSPECIFIED Status: Resolved (14) V-tach Code(s): I47.2 - VENTRICULAR TACHYCARDIA Status: Acute Comment: s/p shock/ cardioversion in sinus - 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 Review of Systems - Medications/Allergies Allergies/Adverse Reactions: Allergies Allergy/AdvReac Type Severity Reaction Status Date / Time phenytoin sodium Allergy Severe Emesis Verified 03/23/18 17:23 [From Dilantin] phenytoin sodium extended Allergy Severe Emesis Verified 03/23/18 17:23 [From Dilantin] midazolam HCl [From Versed] Allergy Intermediate swelling Verified 03/23/18 17: 23 Medications: Current Medications Acetaminophen (Tylenol) 1,000 mg PO Q6H PRN PRN Reason: Moderate to Severe Pain (6-10) Last Admin: 04/05/18 02:30 Dose: 1,000 mg Amiodarone HCl (Cordarone) 200 mg PO BID NEPTALI Last Admin: 04/05/18 08:00 Dose: 200 mg Benzonatate (Tessalon) 100 mg PO TID [facility] Last Admin: 04/05/18 14:09 Dose: 100 mg Calcium Carbonate (Tums) 1,000 mg PO Q4H PRN PRN Reason: Heartburn or Indigestion Carvedilol (Coreg) 6.25 mg PO BID[facility] Last Admin: 04/05/18 07:50 Dose: 6.25 mg Cefdinir (Omnicef) 300 mg PO BID [facility] Last Admin: 04/05/18 08:01 Dose: 300 mg Cosyntropin (Cortrosyn) 250 mcg SLOW IVP [facility] Last Admin: 03/25/18 14:05 Dose: 250 mcg Docusate Sodium (Colace) 100 mg PO BID [facility] Last Admin: 04/05/18 08:04 Dose: 100 mg Epoetin Nain (Procrit) 10,000 units SC Q7D [facility] Last Admin: 03/29/18 15:19 Dose: 10,000 units Famotidine (Pepcid) 20 mg PO DAILY [facility] Last Admin: 04/05/18 08:01 Dose: 20 mg Loperamide HCl (Imodium) 2 mg PO PRN PRN PRN Reason: Diarrhea/Loose Stools Loratadine/Pseudoephedrine Sulfate (Claritin-D 24 Hour) 1 tab PO DAILY [facility] Last Admin: 04/05/18 09:14 Dose: 1 tab Melatonin (Melatonin) 3 mg PO HSPRN PRN PRN Reason: Insomnia Last Admin: 04/03/18 00:28 Dose: 3 mg Ondansetron HCl (Zofran Odt) 4 mg PO Q6H PRN PRN Reason: Nausea/Vomiting Last Admin: 03/27/18 21:37 Dose: 4 mg Ondansetron HCl (Zofran) 4 mg IVP Q6H PRN PRN Reason: Nausea/Vomiting Last Admin: 03/30/18 23:20 Dose: 4 mg Oxcarbazepine (Trileptal) 600 mg PO BID [facility] Last Admin: 04/05/18 09:14 Dose: 600 mg Polyethylene Glycol (Miralax) 17 gm PO DAILY [facility] Last Admin: 04/05/18 08:04 Dose: 17 gm Saccharomyces Boulardii (Florastor) 250 mg PO DAILY [facility] Last Admin: 04/05/18 08:03 Dose: 250 mg Sodium Chloride (Flush - Normal Saline) 10 ml IVF Q12HR [facility]PTALI Last Admin: 04/05/18 09:14 Dose: 10 ml Sodium Chloride (Flush - Normal Saline) 10 ml IVF PRN PRN PRN Reason: Saline Flush Last Admin: 04/01/18 02:51 Dose: 10 ml Sterile Water (Water For Injection) 1.2 ml FS Q4H PRN PRN Reason: TO RECONSTITUTE ZIPRASIDONE Tramadol HCl (Ultram) 50 mg PO Q6H PRN PRN Reason: Pain 1-5 Last Admin: 04/02/18 13:22 Dose: 50 mg Vitamin B Complex/Vit C/Folic Acid (Nephro-Maria C Tablet) 1 tab PO DAILY NEPTALI Last Admin: 04/05/18 08:03 Dose: 1 tab Ziprasidone (Geodon) 10 mg IM Q4H PRN PRN Reason: Agitation Zolpidem Tartrate (Ambien) 5 mg PO HSPRN PRN PRN Reason: Insomnia Last Admin: 03/27/18 21:31 Dose: 5 mg
[2018-04-06 08:47] LABS: #Eosinphils 0.2 thou/uL (0.0-0.7); #Lymphocytes 1.4 thou/uL (1.20-3.40); #Monocytes 0.6 thou/uL (0.11-0.59); #Neutrophils 3.9 thou/uL (1.40-6.50); %Basophils 0.4 % (0.0-1.0); %Eosinophils 3.9 % (0.0-10.0); %Lymphocytes 22.8 % (21.0-51.0); %Monocytes 9.4 % (0.0-10.0); %Neutrophils 63.5 % (42.0-75.0); Hemoglobin 9.5 g/dL (14.0-18.0); Mean Corpuscular HGB CONC 32.8 g/dL (32.0-36.0); Mean Corpuscular Hemoglobin 30.7 pg (27.0-31.0); Mean Corpuscular Volume 93.5 fL (78.0-98.0); Mean Platelet Volume 10.1 fL (7.4-10.4); Platelet Count 44 thou/uL (130-400); RBC Distribution Width 14.9 % (11.5-14.5); Red Blood Cell (RBC) Count 3.11 mill/uL (4.70-6.10); White Blood Cell (WBC) Count 6.2 thou/uL (4.8-10.8)
[2018-04-06 09:07] LABS: Albumin 3.2 g/dL (3.5-5.0); Anion Gap 18 mmol/L (10-20); BUN (Urea Nitrogen) 18 mg/dL (8.9-20.6); BUN/Creatinine Ratio 3.55; Calc. Creatinine Clearance 26 mL/min (70-130); Calcium 9.3 mg/dL (7.8-10.44); Carbon Dioxide 24 mmol/L (22-29); Chloride 98 mmol/L (98-107); Estimated GFR-MDRD 12; Glucose 94 mg/dL (70-105); Phosphorus 3.3 mg/dL (2.3-4.7); Potassium 4.4 mmol/L (3.5-5.1); Sodium 136 mmol/L (136-145)
--- NOTE | 2018-04-06 09:24 | PRG ---
DATE OF SERVICE: 04/06/2018 SUBJECTIVE: Mr. Boo is a 47-year-old white male with ESRD. Over the weekend, he developed V-tach. Dr. Godwin has evaluated this patient. He reviewed the EKG readings, and he has a monomorphic V-tach. He feels that this patient is a candidate for AICD in the near future. No new complaints today. The patient denies any chest pain or shortness of breath. OBJECTIVE: VITAL SIGNS: Blood pressure 109/66, heart rate 83, respiratory rate 20, temperature 99.2, and pulse ox 95%. GENERAL: Awake, alert, comfortable, not in overt distress. SKIN: Adequate turgor. HEENT: He has a slightly pale conjunctivae. Anicteric sclerae. NECK: No neck mass. No carotid bruits. No JVD. CHEST: No deformities. LUNGS: Clear breath sounds. No wheezing. No crackles. HEART: Normal sinus rhythm. No murmur. No gallops. No rubs. ABDOMEN: Globular, soft, nontender. No masses. EXTREMITIES: No edema. MEDICATIONS: Medications of April 06, 2017, were reviewed. LABORATORY DATA: Laboratories of April 04, 2018; white count 5.1, hemoglobin 8.4. Sodium 134, potassium 2.9, chloride 97, carbon dioxide 27, BUN 19, creatinine 4.69, calcium 8.9. ASSESSMENT AND PLAN: 1. End-stage renal disease, stable. No indication for any dialytic intervention. Continuing Wednesday, , and Wednesday dialysis. Currently, he is tolerating said hemodialysis regimen as well as the fluid removal. 2. Anemia-stable. Continue weekly Epogen of 10,000 units, subcutaneous every week. 3. Status post ventricular tachycardia-on amiodarone. Cardiology is following. In the future, consideration for AICD. 4. We will recheck basic metabolic, CBC in a.m. Job ID: [id number]
--- NOTE | 2018-04-06 10:19 | PDOC.PN ---
- Subjective Encounter Start Date: 04/06/18 Encounter Start Time: 08:30 Subjective: awake, follows verbal stimuli -: no sob -: had HD yesterday - Objective Resuscitation Status - Order Detail: 03/23/18 07:56 Resuscitation Status Routine Resuscitation Status: FULL: Full Resuscitation MAR Reviewed: Yes Vital Signs & Weight: Vital Signs (12 hours) Temp Pulse Resp BP Pulse Ox 04/06/18 07:30 98.1 F 79 20 110/72 97 04/06/18 04:00 99.2 F 83 20 109/66 95 Weight Admit Weight 227 lb 1.218 oz Weight 224 lb Most Recent Monitor Data Heart Rate from ECG 72 NIBP 96/51 NIBP BP-Mean 66 Respiration from ECG 20 SpO2 96 I&O: 04/05/18 04/06/18 04/07/18 06:59 06:59 06:59 Intake Total 490 375 Output Total 0 6180 Balance 490 -5805 Result Diagrams: 04/06/18 08:04 04/06/18 08:04 Phys Exam - Physical Examination HEENT: PERRLA, moist MMs Neck: no JVD, supple Respiratory: no wheezing, no rales Cardiovascular: RRR, no significant murmur Gastrointestinal: soft, non-tender, positive bowel sounds Musculoskeletal: no edema, pulses present Neurological: non-focal, moves all 4 limbs Dx/Plan (1) Acute respiratory failure with hypoxia Code(s): J96.01 - ACUTE RESPIRATORY FAILURE WITH HYPOXIA Status: Resolved (2) Acute exacerbation of CHF (congestive heart failure) Code(s): I50.9 - HEART FAILURE, UNSPECIFIED Status: Acute Qualifiers: Heart failure type: combined systolic and diastolic Qualified Code(s): I50.43 - Acute on chronic combined systolic (congestive) and diastolic ( congestive) heart failure Comment: ef of 40%, class C (3) PNA (pneumonia) Code(s): J18.9 - PNEUMONIA, UNSPECIFIED ORGANISM Status: Suspected Qualifiers: Pneumonia type: due to unspecified organism Laterality: bilateral (4) Antiphospholipid syndrome Code(s): D68.61 - ANTIPHOSPHOLIPID SYNDROME Status: Chronic Comment: Coumadin on hold since 02/13 due to perinephric hematoma (5) Atrial fibrillation Code(s): I48.91 - UNSPECIFIED ATRIAL FIBRILLATION Status: Chronic Qualifiers: Atrial fibrillation type: paroxysmal (6) Cardiomyopathy Code(s): I42.9 - CARDIOMYOPATHY, UNSPECIFIED Status: Chronic (7) Gout Code(s): M10.9 - GOUT, UNSPECIFIED Status: Chronic Qualifiers: Gout site: unspecified site Gout etiology: unspecified cause (8) HTN (hypertension) Code(s): I10 - ESSENTIAL (PRIMARY) HYPERTENSION Status: Chronic Qualifiers: Hypertension type: essential hypertension (9) History of pulmonary embolism Code(s): Z86.711 - PERSONAL HISTORY OF PULMONARY EMBOLISM Status: Chronic Comment: h/o IVC filter (10) Physical deconditioning Code(s): R53.81 - OTHER MALAISE Status: Chronic (11) Seizure disorder Code(s): G40.909 - EPILEPSY, UNSP, NOT INTRACTABLE, WITHOUT STATUS EPILEPTICUS Status: Chronic (12) Thrombocytopenia Code(s): D69.6 - THROMBOCYTOPENIA, UNSPECIFIED Status: Chronic (13) Fluid overload Code(s): E87.70 - FLUID OVERLOAD, UNSPECIFIED Status: Resolved (14) V-tach Code(s): I47.2 - VENTRICULAR TACHYCARDIA Status: Acute Comment: s/p shock/ cardioversion in sinus - Plan had removal of nearly 6 liters with HD yesterday, BP slightly on lower side -: for aicd/rn transport in am -: will check platelets today and in am, if less than 50k will transfuse -: no further vtac episodes, is eating better per patient -: continue amiodarone, coreg, omnicef daily, seroquel HS * . Review of Systems - Medications/Allergies Allergies/Adverse Reactions: Allergies Allergy/AdvReac Type Severity Reaction Status Date / Time phenytoin sodium Allergy Severe Emesis Verified 03/23/18 17:23 [From Dilantin] phenytoin sodium extended Allergy Severe Emesis Verified 03/23/18 17:23 [From Dilantin] midazolam HCl [From Versed] Allergy Intermediate swelling Verified 03/23/18 17: 23 Medications: Current Medications Acetaminophen (Tylenol) 1,000 mg PO Q6H PRN PRN Reason: Moderate to Severe Pain (6-10) Last Admin: 04/05/18 02:30 Dose: 1,000 mg Amiodarone HCl (Cordarone) 200 mg PO BID [facility] Last Admin: 04/05/18 21:22 Dose: 200 mg Benzonatate (Tessalon) 100 mg PO TID [facility] Last Admin: 04/05/18 21:22 Dose: 100 mg Calcium Carbonate (Tums) 1,000 mg PO Q4H PRN PRN Reason: Heartburn or Indigestion Carvedilol (Coreg) 6.25 mg PO BID-[facility] Last Admin: 04/05/18 20:04 Dose: Not Given Cefdinir (Omnicef) 300 mg PO DAILY [facility] Cosyntropin (Cortrosyn) 250 mcg SLOW IVP WILLCALL [facility] Last Admin: 03/25/18 14:05 Dose: 250 mcg Docusate Sodium (Colace) 100 mg PO BID [facility] Last Admin: 04/05/18 21:22 Dose: 100 mg Epoetin Nain (Procrit) 10,000 units SC Q7D [facility] Last Admin: 04/05/18 15:44 Dose: 10,000 units Famotidine (Pepcid) 20 mg PO DAILY [facility] Last Admin: 04/05/18 08:01 Dose: 20 mg Loperamide HCl (Imodium) 2 mg PO PRN PRN PRN Reason: Diarrhea/Loose Stools Loratadine/Pseudoephedrine Sulfate (Claritin-D 24 Hour) 1 tab PO DAILY [facility] Last Admin: 04/05/18 09:14 Dose: 1 tab Melatonin (Melatonin) 3 mg PO HSPRN PRN PRN Reason: Insomnia Last Admin: 04/03/18 00:28 Dose: 3 mg Ondansetron HCl (Zofran Odt) 4 mg PO Q6H PRN PRN Reason: Nausea/Vomiting Last Admin: 03/27/18 21:37 Dose: 4 mg Ondansetron HCl (Zofran) 4 mg IVP Q6H PRN PRN Reason: Nausea/Vomiting Last Admin: 03/30/18 23:20 Dose: 4 mg Oxcarbazepine (Trileptal) 600 mg PO BID [facility] Last Admin: 04/05/18 21:22 Dose: 600 mg Polyethylene Glycol (Miralax) 17 gm PO DAILY [facility] Last Admin: 04/05/18 08:04 Dose: 17 gm Quetiapine Fumarate (Seroquel) 25 mg PO HS [facility] Saccharomyces Boulardii (Florastor) 250 mg PO DAILY [facility] Last Admin: 04/05/18 08:03 Dose: 250 mg Sodium Chloride (Flush - Normal Saline) 10 ml IVF Q12HR [facility] Last Admin: 04/05/18 21:22 Dose: 10 ml Sodium Chloride (Flush - Normal Saline) 10 ml IVF PRN PRN PRN Reason: Saline Flush Last Admin: 04/01/18 02:51 Dose: 10 ml Tramadol HCl (Ultram) 50 mg PO Q6H PRN PRN Reason: Pain 1-5 Last Admin: 04/02/18 13:22 Dose: 50 mg Vitamin B Complex/Vit C/Folic Acid (Nephro-Maria C Tablet) 1 tab PO DAILY [facility] Last Admin: 04/05/18 08:03 Dose: 1 tab Zolpidem Tartrate (Ambien) 5 mg PO HSPRN PRN PRN Reason: Insomnia Last Admin: 03/27/18 21:31 Dose: 5 mg
[2018-04-06] MEDS: OXcarbazepine 300 MG TAB PO SCH ×2 (11:17→21:20)
[2018-04-06] MEDS: Polyethylene Glycol 3350 17 GM Packet PO SCH (11:17)
[2018-04-06] MEDS: Loratadine/Pseudoephedrine 10/240 mg Tablet PO SCH (11:17)
[2018-04-06] MEDS: Famotidine 20 MG TAB PO SCH (11:17)
[2018-04-06] MEDS: Carvedilol 6.25 MG TAB PO SCH ×2 (11:18→21:19)
[2018-04-06] MEDS: Benzonatate 100 MG CAP PO SCH ×3 (11:18→21:21)
[2018-04-06] MEDS: Folic Acid/Vit B Comp W-C PO SCH (11:18)
[2018-04-06] MEDS: Docusate 100 MG CAP PO SCH ×2 (11:18→21:19)
[2018-04-06] MEDS: Amiodarone 200 MG TAB PO SCH ×2 (11:18→21:21)
[2018-04-06] MEDS: Saccharomyces boulardii 250 MG CAP PO SCH (11:19)
--- NOTE | 2018-04-06 11:31 | PRG ---
DATE OF SERVICE: 04/06/2018 SUBJECTIVE: Hans Boo remains encephalopathic. No distress. OBJECTIVE: VITAL SIGNS: Saturations are 97% on room air, respiratory rate 20, temperature 98, and blood pressure 110/72. CHEST: Bilateral rhonchi. CARDIAC: Sinus tach. ABDOMEN: Soft. LABORATORY DATA: Creatinine 5.7. IMPRESSION: 1. Renal failure on dialysis. 2. Supraventricular and ventricular arrhythmias. 3. Antiphospholipid syndrome. Pulmonary lopez, appears to be stable. He is on p.o. antibiotics. Home when okay with Cardiology. Job ID: [id number]
--- NOTE | 2018-04-06 12:20 | PDOC.CTH ---
Cardiology Progress Note - Subjective EP FOLLOW UP: 04/06/18 Pt has no new complaints. Had developed VT over weekend and required defibrillation. Continues to maintain SR. No new cardiac concerns or complaints. Poor historian and forgetful. - Objective Vital Signs Temp Pulse Resp BP BP Pulse Ox 04/06/18 11:18 110/72 04/06/18 07:30 98.1 F 79 20 110/72 97 04/06/18 04:00 99.2 F 83 20 109/66 95 Admit Weight 251 lb 8 oz Weight 224 lb 04/05/18 04/06/18 04/07/18 06:59 06:59 06:59 Intake Total 490 375 Output Total 0 6180 Balance 490 -5805 - Physical Examination General/Neuro: NAD Neck: carotid US brisk, no JVD present Lungs: CTA, unlabored respirations Heart: PMI normal, RRR Abdomen: NT/ND, soft - Telemetry Telemetry Rhythm: SR - Labs Result Diagrams: 04/06/18 08:04 04/06/18 08:04 Troponin/CKMB CK-MB (CK-2) 0.4 ng/mL (0-6.6) 03/23/18 05:26 Troponin I 0.134 ng/mL (< 0.028) H 03/23/18 11:35 - Assessment/Plan 1. Persistent atrial arrhythmias - loaded with amiodarone last week. Arrhythmias suppression is the best option for him at this time - not a candidate for ablation as he cannot take anticoagulation - Suppression of his AF/maintaining SR remains his best option. - Consider lariat for NITHYA closure later if patient condition stabilizes 2. Antiphospholipid syndrome - spontaneous perinephric hematoma in 02/13. No OAC since that time. 3. Combine diastolic/systolic heart failure, NYHA 3 4. Pancytopenia 5. Hypoxemia 6. ESRD - on HD, per nephrology 7. Spontaneous monomorphic ventricular tachycardia - requiring defibrillation despite being on amiodarone - spontan induced during rapid AFL/Afib.. Most strips suggest monomorphic VT. Likely will be a candidate for ICD implant. - Poss BiV in preparation for ultimate AV miranda ablation. 8. Acute delirium - largely resolved but has poor short term memory. Discussed potential Bi-V ICD and future AVJ ablation with and patient yesterday. Re-discussed with patient today. Both consent to the procedure. Plan for possible implant on tomorrow, but will require coordination with platelet transfusion beforehand to prevent acute bleeding complications. Will keep NPO after MN and obtain consent. Plan to transfuse 10 units of platelets in AM.
--- NOTE | 2018-04-06 13:56 | PDOC.CTH ---
Cardiology Progress Note - Subjective The pt seen and examined. No overnight events. No cardiac complaints. - Objective Vital Signs Temp Pulse Resp BP BP Pulse Ox 04/06/18 11:18 110/72 04/06/18 07:30 98.1 F 79 20 110/72 97 04/06/18 04:00 99.2 F 83 20 109/66 95 Admit Weight 251 lb 8 oz Weight 224 lb 04/05/18 04/06/18 04/07/18 06:59 06:59 06:59 Intake Total 490 375 Output Total 0 6180 Balance 490 -5805 - Physical Examination General/Neuro: other: (confused) Lungs: CTA Heart: RRR Abdomen: soft Extremities: other: (No edema) - Telemetry Telemetry Rhythm: SR - Labs Result Diagrams: 04/06/18 08:04 04/06/18 08:04 Troponin/CKMB CK-MB (CK-2) 0.4 ng/mL (0-6.6) 03/23/18 05:26 Troponin I 0.134 ng/mL (< 0.028) H 03/23/18 11:35 - Assessment/Plan 1. Afib/flutter - Maintaining NSR after cardioversion for V-fib. 2. Acute on chronic combined HF - Stable; on Coreg and HD. Not on DAVID/ARB 2/2 hypotensive and hx of CKD. 3. ESRD - on HD on , , Wed; managed by Dr De La Rosa. 4. Antiphospholipid antibody syndrome with hx of DVT/PE and IVC filter placement - Not on OAC 2/2 hx of perinephric hematima in 01/2018 5. HTN - stable; 6. Hx of spontaneous perinephric retroperitoneal hematoma. 7. Hx of seizure - 8. Acute delirium with poor short term memory. * Per EP, Bi-V ICD and future AVJ ablation tomorrow by Dr Godwin. Pt. seen and eval. by me. I agree with the A/P by the PSYCHIATRIC MENTAL HEALTH NURSE.an EP. Chest clear. RRR. Review of Systems - Review of Systems Constitutional: reports: no symptoms reported EENTM: reports: no symptoms reported Respiratory: reports: no symptoms reported Cardiac (ROS): reports: no symptoms reported ABD/GI: reports: no symptoms reported : reports: no symptoms reported Musculoskeletal: reports: no symptoms reported Skin: reports: no symptoms reported
[2018-04-07 08:27] LABS: #Basophils 0.1 thou/uL (0.0-0.2); #Eosinphils 0.2 thou/uL (0.0-0.7); #Lymphocytes 1.2 thou/uL (1.20-3.40); #Monocytes 0.6 thou/uL (0.11-0.59); #Neutrophils 3.2 thou/uL (1.40-6.50); %Basophils 2.6 % (0.0-1.0); %Eosinophils 4.2 % (0.0-10.0); %Lymphocytes 22.3 % (21.0-51.0); %Neutrophils 59.9 % (42.0-75.0); Hemoglobin 8.8 g/dL (14.0-18.0); Mean Corpuscular HGB CONC 32.4 g/dL (32.0-36.0); Mean Corpuscular Hemoglobin 30.4 pg (27.0-31.0); Mean Platelet Volume 10.4 fL (7.4-10.4); Platelet Count 44 thou/uL (130-400); White Blood Cell (WBC) Count 5.3 thou/uL (4.8-10.8)
[2018-04-07 08:47] LABS: Anion Gap 15 mmol/L (10-20); BUN (Urea Nitrogen) 27 mg/dL (8.9-20.6); Calc. Creatinine Clearance 21 mL/min (70-130); Calcium 9.4 mg/dL (7.8-10.44); Carbon Dioxide 28 mmol/L (22-29); Chloride 98 mmol/L (98-107); Estimated GFR-MDRD 9; Glucose 92 mg/dL (70-105); Potassium 4.4 mmol/L (3.5-5.1); Sodium 137 mmol/L (136-145)
--- NOTE | 2018-04-07 09:34 | PRG ---
DATE OF SERVICE: 04/07/2018 RENAL MEDICINE SUBJECTIVE: Mr. Boo is a 47-year-old white male with ESRD and being followed up by the [facility] for his maintenance hemodialysis. I am at the bedside supervising his dialysis. Please note, this patient is status post ventricular tachycardia and was eventually converted to normal sinus rhythm. He is on amiodarone. In addition, he has been evaluated by Dr. Godwin, who feels that he will eventually need an AICD in the near future. No other complaints today. OBJECTIVE: VITAL SIGNS: Blood pressure is 118/76, heart rate 73, respiratory rate 18, temperature 97.9, and pulse ox 98%. GENERAL: Awake, supine, and comfortable, but somewhat lethargic. SKIN: Adequate turgor. HEENT: Pinkish conjunctivae. Anicteric sclerae. NECK: No neck mass. No carotid bruits. No JVD. CHEST: No deformities. LUNGS: Clear breath sounds. No wheezing. No crackles. HEART: Normal sinus rhythm. No murmur. No gallops. No rubs. ABDOMEN: Globular, soft, and nontender. No masses. EXTREMITIES: No edema. No deformities. MEDICATIONS: Medications of April 07, 2018, were reviewed. LABORATORY DATA: Laboratories of April 06, 2018; white count 6.2, hemoglobin 9.5. Sodium 136, potassium 4.4, chloride 98, carbon dioxide 24, BUN 18, creatinine is 5.07, glucose 94, phosphorus 3.3, and albumin 3.2. ASSESSMENT AND PLAN: 1. Anemia - on weekly Epogen. Continue 10,000 units subcu q.week. 2. End-stage renal disease, stable, tolerating hemodialysis. Due to the lower BP this morning, we will minimize fluid removal. 3. Status post ventricular tachycardia - currently normal sinus rhythm. The patient is asymptomatic, currently on amiodarone. Cardiology is following. 4. Agree with current management. Job ID: [id number]
--- NOTE | 2018-04-07 10:07 | PDOC.PN ---
- Subjective Encounter Start Date: 04/07/18 Encounter Start Time: 09:30 Subjective: getting HD, no sob - Objective Resuscitation Status - Order Detail: 03/23/18 07:56 Resuscitation Status Routine Resuscitation Status: FULL: Full Resuscitation MAR Reviewed: Yes Vital Signs & Weight: Vital Signs (12 hours) Temp Pulse Resp BP 04/07/18 03:50 97.9 F 73 18 118/76 Weight Admit Weight 251 lb 8 oz Weight 227 lb 8 oz Most Recent Monitor Data Heart Rate from ECG 72 NIBP 96/51 NIBP BP-Mean 66 Respiration from ECG 20 SpO2 96 I&O: 04/06/18 04/07/18 04/08/18 06:59 06:59 06:59 Intake Total 375 150 Output Total 6180 0 Balance -5805 150 Result Diagrams: 04/07/18 07:23 04/07/18 07:23 Phys Exam - Physical Examination HEENT: PERRLA, moist MMs Neck: no JVD, supple Respiratory: no wheezing, no rales Cardiovascular: RRR, no significant murmur Gastrointestinal: soft, non-tender, positive bowel sounds Musculoskeletal: no edema, pulses present Neurological: non-focal, moves all 4 limbs Psychiatric: A&O x 3 Dx/Plan (1) Acute respiratory failure with hypoxia Code(s): J96.01 - ACUTE RESPIRATORY FAILURE WITH HYPOXIA Status: Resolved (2) Acute exacerbation of CHF (congestive heart failure) Code(s): I50.9 - HEART FAILURE, UNSPECIFIED Status: Acute Qualifiers: Heart failure type: combined systolic and diastolic Qualified Code(s): I50.43 - Acute on chronic combined systolic (congestive) and diastolic ( congestive) heart failure Comment: ef of 40%, class C (3) PNA (pneumonia) Code(s): J18.9 - PNEUMONIA, UNSPECIFIED ORGANISM Status: Suspected Qualifiers: Pneumonia type: due to unspecified organism Laterality: bilateral (4) Antiphospholipid syndrome Code(s): D68.61 - ANTIPHOSPHOLIPID SYNDROME Status: Chronic Comment: Coumadin on hold since 02/13 due to perinephric hematoma (5) Atrial fibrillation Code(s): I48.91 - UNSPECIFIED ATRIAL FIBRILLATION Status: Chronic Qualifiers: Atrial fibrillation type: paroxysmal (6) Cardiomyopathy Code(s): I42.9 - CARDIOMYOPATHY, UNSPECIFIED Status: Chronic (7) Gout Code(s): M10.9 - GOUT, UNSPECIFIED Status: Chronic Qualifiers: Gout site: unspecified site Gout etiology: unspecified cause (8) HTN (hypertension) Code(s): I10 - ESSENTIAL (PRIMARY) HYPERTENSION Status: Chronic Qualifiers: Hypertension type: essential hypertension (9) History of pulmonary embolism Code(s): Z86.711 - PERSONAL HISTORY OF PULMONARY EMBOLISM Status: Chronic Comment: h/o IVC filter (10) Physical deconditioning Code(s): R53.81 - OTHER MALAISE Status: Chronic (11) Seizure disorder Code(s): G40.909 - EPILEPSY, UNSP, NOT INTRACTABLE, WITHOUT STATUS EPILEPTICUS Status: Chronic (12) Thrombocytopenia Code(s): D69.6 - THROMBOCYTOPENIA, UNSPECIFIED Status: Chronic (13) Fluid overload Code(s): E87.70 - FLUID OVERLOAD, UNSPECIFIED Status: Resolved (14) V-tach Code(s): I47.2 - VENTRICULAR TACHYCARDIA Status: Acute Comment: s/p shock/ cardioversion in sinus - Plan is getting platelet transfusions with HD today -: is npo for Biventricular pacer/aicd today -: continue coreg, amiodarone, omnicef and seroquel at bedtime -: will f/u, sbp around 80-100, might need midodrine until duralumin mechanic works -: likely will need placement * . Review of Systems - Medications/Allergies Allergies/Adverse Reactions: Allergies Allergy/AdvReac Type Severity Reaction Status Date / Time phenytoin sodium Allergy Severe Emesis Verified 03/23/18 17:23 [From Dilantin] phenytoin sodium extended Allergy Severe Emesis Verified 03/23/18 17:23 [From Dilantin] midazolam HCl [From Versed] Allergy Intermediate swelling Verified 03/23/18 17: 23 Medications: Current Medications Acetaminophen (Tylenol) 1,000 mg PO Q6H PRN PRN Reason: Moderate to Severe Pain (6-10) Last Admin: 04/05/18 02:30 Dose: 1,000 mg Amiodarone HCl (Cordarone) 200 mg PO BID [facility] Last Admin: 04/06/18 21:21 Dose: 200 mg Benzonatate (Tessalon) 100 mg PO TID [facility] Last Admin: 04/06/18 21:21 Dose: Not Given Calcium Carbonate (Tums) 1,000 mg PO Q4H PRN PRN Reason: Heartburn or Indigestion Carvedilol (Coreg) 6.25 mg PO BID-WM [facility] Last Admin: 04/06/18 21:19 Dose: 6.25 mg Cefdinir (Omnicef) 300 mg PO DAILY [facility] Cosyntropin (Cortrosyn) 250 mcg SLOW IVP WILLCALL [facility] Last Admin: 03/25/18 14:05 Dose: 250 mcg Docusate Sodium (Colace) 100 mg PO BID [facility] Last Admin: 04/06/18 21:19 Dose: Not Given Epoetin Nain (Procrit) 10,000 units SC Q7D [facility] Last Admin: 04/05/18 15:44 Dose: 10,000 units Famotidine (Pepcid) 20 mg PO DAILY [facility] Last Admin: 04/06/18 11:17 Dose: 20 mg Loperamide HCl (Imodium) 2 mg PO PRN PRN PRN Reason: Diarrhea/Loose Stools Loratadine/Pseudoephedrine Sulfate (Claritin-D 24 Hour) 1 tab PO DAILY [facility] Last Admin: 04/06/18 11:17 Dose: 1 tab Melatonin (Melatonin) 3 mg PO HSPRN PRN PRN Reason: Insomnia Last Admin: 04/03/18 00:28 Dose: 3 mg Ondansetron HCl (Zofran Odt) 4 mg PO Q6H PRN PRN Reason: Nausea/Vomiting Last Admin: 03/27/18 21:37 Dose: 4 mg Ondansetron HCl (Zofran) 4 mg IVP Q6H PRN PRN Reason: Nausea/Vomiting Last Admin: 03/30/18 23:20 Dose: 4 mg Oxcarbazepine (Trileptal) 600 mg PO BID [facility] Last Admin: 04/06/18 21:20 Dose: 600 mg Polyethylene Glycol (Miralax) 17 gm PO DAILY [facility] Last Admin: 04/06/18 11:17 Dose: 17 gm Quetiapine Fumarate (Seroquel) 25 mg PO HS [facility] Last Admin: 04/06/18 21:18 Dose: 25 mg Saccharomyces Boulardii (Florastor) 250 mg PO DAILY [facility] Last Admin: 04/06/18 11:19 Dose: 250 mg Sodium Chloride (Flush - Normal Saline) 10 ml IVF Q12HR [facility] Last Admin: 04/06/18 21:21 Dose: 10 ml Sodium Chloride (Flush - Normal Saline) 10 ml IVF PRN PRN PRN Reason: Saline Flush Last Admin: 04/01/18 02:51 Dose: 10 ml Tramadol HCl (Ultram) 50 mg PO Q6H PRN PRN Reason: Pain 1-5 Last Admin: 04/02/18 13:22 Dose: 50 mg Vitamin B Complex/Vit C/Folic Acid (Nephro-Maria C Tablet) 1 tab PO DAILY [facility] Last Admin: 04/06/18 11:18 Dose: 1 tab Zolpidem Tartrate (Ambien) 5 mg PO HSPRN PRN PRN Reason: Insomnia Last Admin: 03/27/18 21:31 Dose: 5 mg
--- NOTE | 2018-04-07 10:42 | PDOC.CTH ---
Cardiology Progress Note - Subjective The pt seen and examined. No overnight events. No cardiac complaints. - Objective Vital Signs Temp Pulse Resp BP 04/07/18 03:50 97.9 F 73 18 118/76 Admit Weight 251 lb 8 oz Weight 227 lb 8 oz 04/06/18 04/07/18 04/08/18 06:59 06:59 06:59 Intake Total 375 150 Output Total 6180 0 Balance -5805 150 - Physical Examination General/Neuro: other: (intermittent confusion) Lungs: CTA Heart: RRR Abdomen: soft Extremities: other: (2+ pitting BEL edema) - Telemetry Telemetry Rhythm: SR - Labs Result Diagrams: 04/07/18 07:23 04/07/18 07:23 Troponin/CKMB CK-MB (CK-2) 0.4 ng/mL (0-6.6) 03/23/18 05:26 Troponin I 0.134 ng/mL (< 0.028) H 03/23/18 11:35 - Assessment/Plan 1. Afib/flutter - Maintaining in NSR after cardioversion for V-fib. 2. Acute on chronic combined HF - Stable; on Coreg and HD. Not on DAVID/ARB 2/2 hypotensive and hx of CKD. 3. ESRD - on HD on , , Wed; managed by Dr De La Rosa. 4. Antiphospholipid antibody syndrome with hx of DVT/PE and IVC filter placement - Not on OAC 2/2 hx of perinephric hematima in 01/2018 5. HTN - stable; 6. Hx of spontaneous perinephric retroperitoneal hematoma. 7. Hx of seizure - 8. Acute delirium with poor short term memory. MAR reviewed * Per EP, Bi-V ICD and future AVJ ablation by Dr Godwin today. Pt.seen and eval.by me.I agree with the A/P by the EQUAL OPPORTUNITY ASSISTANT. He seems a little less confused this afternoon but still very weak and deconditioned. Chest:clear.RRR.No edema. Continue present Rx.Plan forAICD per today or tomorrow. Review of Systems - Review of Systems Constitutional: reports: no symptoms reported EENTM: reports: no symptoms reported Respiratory: reports: no symptoms reported Cardiac (ROS): reports: no symptoms reported ABD/GI: reports: no symptoms reported : reports: no symptoms reported
[2018-04-07] MEDS: Saccharomyces boulardii 250 MG CAP PO SCH (12:14)
[2018-04-07] MEDS: Carvedilol 6.25 MG TAB PO SCH ×3 (12:14→18:00)
[2018-04-07] MEDS: Famotidine 20 MG TAB PO SCH ×2 (12:15→12:58)
[2018-04-07] MEDS: Folic Acid/Vit B Comp W-C PO SCH ×2 (12:15→12:58)
[2018-04-07] MEDS: OXcarbazepine 300 MG TAB PO SCH ×3 (12:15→22:11)
[2018-04-07] MEDS: Amiodarone 200 MG TAB PO SCH ×3 (12:15→22:10)
[2018-04-07] MEDS: Loratadine/Pseudoephedrine 10/240 mg Tablet PO SCH ×2 (12:15→12:58)
[2018-04-07] MEDS: Benzonatate 100 MG CAP PO SCH ×3 (12:15→22:27)
[2018-04-07] MEDS: Cefdinir 300 MG CAP PO SCH ×2 (12:16→12:58)
[2018-04-07] MEDS: Polyethylene Glycol 3350 17 GM Packet PO SCH (12:16)
[2018-04-07] MEDS: Docusate 100 MG CAP PO SCH ×2 (12:16→22:14)
[2018-04-07] MEDS ORDERED: traMADol HCl 50 MG TAB PO PRN (16:06)
--- NOTE | 2018-04-07 17:43 | PDOC.CTH ---
Cardiology Progress Note - Subjective EP Progress note 04/07/18 Pt underwent dialysis today. Feel ok. HGB dropped to 8.8mg/dl. - Objective Vital Signs Temp Pulse Resp BP BP Pulse Ox 04/07/18 16:00 98.3 F 80 18 109/94 H 96 04/07/18 12:57 107/68 04/07/18 11:45 97.2 F L 70 17 101/84 97 Admit Weight 251 lb 8 oz Weight 227 lb 8 oz 04/06/18 04/07/18 04/08/18 06:59 06:59 06:59 Intake Total 375 150 Output Total 6180 0 Balance -5805 150 - Physical Examination General/Neuro: alert & oriented x3 (x2) Neck: no JVD present Lungs: CTA Heart: RRR Abdomen: no HSM, soft - Telemetry Telemetry Rhythm: SR. No Afib or VT. - Labs Result Diagrams: 04/07/18 07:23 04/07/18 07:23 Troponin/CKMB CK-MB (CK-2) 0.4 ng/mL (0-6.6) 03/23/18 05:26 Troponin I 0.134 ng/mL (< 0.028) H 03/23/18 11:35 - Assessment/Plan - Assessment/Plan 1. Persistent atrial arrhythmias - loaded with amiodarone last week. Arrhythmias suppression is the best option for him at this time - not a candidate for ablation as he cannot take anticoagulation - Suppression of his AF/maintaining SR remains his best option. - Consider lariat for NITHYA closure later if patient condition stabilizes 2. Antiphospholipid syndrome - spontaneous perinephric hematoma in 02/13. No OAC since that time. 3. Combine diastolic/systolic heart failure, NYHA 3 4. Pancytopenia - HGB firther worsened. Check HGB am and transfuse if <8 for procedure. Will hold off on Biv ICD implant today, plan for tomorrow 5. Hypoxemia 6. ESRD - on HD, per nephrology 7. Spontaneous monomorphic ventricular tachycardia - requiring defibrillation despite being on amiodarone - spontan induced during rapid AFL/Afib.. Most strips suggest monomorphic VT. Likely will be a candidate for ICD implant. - Poss BiV in preparation for ultimate AV miranda ablation. 8. Acute delirium - largely resolved but has poor short term memory. Discussed potential Bi-V ICD and future AVJ ablation with and patient yesterday. Re-discussed with patient today. Both consent to the procedure. Plan for possible implant on tomorrow, but will require coordination with platelet transfusion beforehand to prevent acute bleeding complications. Will keep NPO after MN and obtain consent. Plan to transfuse 10 units of platelets in AM.
[2018-04-08 06:50] LABS: #Eosinphils 0.3 thou/uL (0.0-0.7); #Lymphocytes 1.3 thou/uL (1.20-3.40); #Monocytes 0.7 thou/uL (0.11-0.59); #Neutrophils 4.7 thou/uL (1.40-6.50); %Basophils 0.5 % (0.0-1.0); %Lymphocytes 19.2 % (21.0-51.0); %Monocytes 9.3 % (0.0-10.0); Hemoglobin 9.2 g/dL (14.0-18.0); Mean Corpuscular HGB CONC 32.7 g/dL (32.0-36.0); Mean Corpuscular Hemoglobin 30.7 pg (27.0-31.0); Mean Corpuscular Volume 93.9 fL (78.0-98.0); Platelet Count 42 thou/uL (130-400); RBC Distribution Width 14.8 % (11.5-14.5)
[2018-04-08] MEDS: OXcarbazepine 300 MG TAB PO SCH ×2 (10:36→21:40)
[2018-04-08] MEDS: Loratadine/Pseudoephedrine 10/240 mg Tablet PO SCH (10:36)
[2018-04-08] MEDS: Cefdinir 300 MG CAP PO SCH (10:37)
[2018-04-08] MEDS: Saccharomyces boulardii 250 MG CAP PO SCH (10:37)
[2018-04-08] MEDS: Amiodarone 200 MG TAB PO SCH ×2 (10:37→21:40)
[2018-04-08] MEDS: Carvedilol 6.25 MG TAB PO SCH ×2 (10:37→18:11)
[2018-04-08] MEDS: Famotidine 20 MG TAB PO SCH (10:37)
[2018-04-08] MEDS: Benzonatate 100 MG CAP PO SCH ×3 (10:37→21:38)
[2018-04-08] MEDS: Docusate 100 MG CAP PO SCH ×2 (10:38→21:39)
[2018-04-08] MEDS: Polyethylene Glycol 3350 17 GM Packet PO SCH (10:38)
[2018-04-08] MEDS: Folic Acid/Vit B Comp W-C PO SCH (10:43)
[2018-04-08] MEDS ORDERED: PROPOFOL 200 MG/20 ML VIAL ONE (11:05)
--- NOTE | 2018-04-08 11:09 | PRG ---
DATE OF SERVICE: SUBJECTIVE: Mr. Boo is a 47-year-old white male with ESRD and being followed by the [facility] for his maintenance hemodialysis. He is tolerating dialysis. Of interest, this patient has also had an episode last week of ventricular tachycardia and underwent defibrillation/cardioversion. He is being followed by Dr. Godwin. The feeling is that he may need eventual AICD placement. In addition, he has also had persistent atrial arrhythmias. At this time, consideration for simple medical management. He is not a candidate for ablation since he cannot take anticoagulation the present time. Furthermore, Dr. Godwin has long discussion with and the patient regarding AICD placement. The patient was seen today without any complaints. No chest pain or shortness of breath. OBJECTIVE: VITAL SIGNS: Blood pressure is 108/66, heart rate 75, respiratory rate 18, temperature 97.8, and pulse ox 97%. GENERAL: Awake, supine, comfortable, not in distress. SKIN: Adequate turgor. HEENT: Slightly pale conjunctivae. Anicteric sclerae. NECK: No neck mass. No carotid bruits. No JVD. CHEST: No deformities. LUNGS: Clear breath sounds. HEART: Normal sinus rhythm. No murmurs, gallops, or rubs. ABDOMEN: Globular, soft, nontender. EXTREMITIES: No edema. No deformities. MEDICATIONS: Medications of 04/08/2018 reviewed. LABORATORY DATA: Laboratories of 04/08/2018; white count 7, hemoglobin 9.2. Sodium 137, potassium 4.4, chloride 98, carbon dioxide 28, BUN is 27, creatinine 6.41. ASSESSMENT AND PLAN: 1. End-stage renal disease, stable. We will continue current hemodialysis regimen of Wednesday, , and Wednesday. Fluid removal only as tolerated by the patient. 2. Anemia, stable on weekly Epogen. The Epogen has been increased to 10,000 units subcu q.week. 3. Cardiac arrhythmias-the patient for possible AICD placement. Currently, on amiodarone for his atrial arrhythmias. Dr. Godwin and Dr. Jefferson are following the patient. Job ID: [id number]
--- NOTE | 2018-04-08 11:19 | PDOC.PN ---
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 - Objective Resuscitation Status - Order Detail: 03/23/18 07:56 Resuscitation Status Routine Resuscitation Status: FULL: Full Resuscitation MAR Reviewed: Yes Vital Signs & Weight: Vital Signs (12 hours) Temp Pulse Pulse Resp BP BP BP 04/08/18 10:37 107/68 04/08/18 09:07 98.2 F 78 17 108/66 04/08/18 08:00 98.2 F 78 16 108/66 04/08/18 03:41 97.8 F 75 18 106/69 Pulse Ox 04/08/18 10:37 04/08/18 09:07 04/08/18 08:00 96 04/08/18 03:41 97 Weight Admit Weight 251 lb 8 oz Weight 225 lb 6 oz Most Recent Monitor Data Heart Rate from ECG 72 NIBP 96/51 NIBP BP-Mean 66 Respiration from ECG 20 SpO2 96 I&O: 04/07/18 04/08/18 04/09/18 06:59 06:59 06:59 Intake Total 150 440 0 Output Total 0 1200 Balance 150 -760 0 Result Diagrams: 04/08/18 05:37 04/07/18 07:23 Phys Exam - Physical Examination HEENT: PERRLA, moist MMs Neck: no JVD, supple Respiratory: no wheezing, no rales Cardiovascular: RRR, no significant murmur Gastrointestinal: soft, non-tender, positive bowel sounds Musculoskeletal: no edema, pulses present Neurological: non-focal, moves all 4 limbs Dx/Plan (1) Acute respiratory failure with hypoxia Code(s): J96.01 - ACUTE RESPIRATORY FAILURE WITH HYPOXIA Status: Resolved (2) Acute exacerbation of CHF (congestive heart failure) Code(s): I50.9 - HEART FAILURE, UNSPECIFIED Status: Acute Qualifiers: Heart failure type: combined systolic and diastolic Qualified Code(s): I50.43 - Acute on chronic combined systolic (congestive) and diastolic ( congestive) heart failure Comment: ef of 40%, class C (3) PNA (pneumonia) Code(s): J18.9 - PNEUMONIA, UNSPECIFIED ORGANISM Status: Suspected Qualifiers: Pneumonia type: due to unspecified organism Laterality: bilateral (4) Antiphospholipid syndrome Code(s): D68.61 - ANTIPHOSPHOLIPID SYNDROME Status: Chronic Comment: Coumadin on hold since 02/13 due to perinephric hematoma (5) Atrial fibrillation Code(s): I48.91 - UNSPECIFIED ATRIAL FIBRILLATION Status: Chronic Qualifiers: Atrial fibrillation type: paroxysmal (6) Cardiomyopathy Code(s): I42.9 - CARDIOMYOPATHY, UNSPECIFIED Status: Chronic (7) Gout Code(s): M10.9 - GOUT, UNSPECIFIED Status: Chronic Qualifiers: Gout site: unspecified site Gout etiology: unspecified cause (8) HTN (hypertension) Code(s): I10 - ESSENTIAL (PRIMARY) HYPERTENSION Status: Chronic Qualifiers: Hypertension type: essential hypertension (9) History of pulmonary embolism Code(s): Z86.711 - PERSONAL HISTORY OF PULMONARY EMBOLISM Status: Chronic Comment: h/o IVC filter (10) Physical deconditioning Code(s): R53.81 - OTHER MALAISE Status: Chronic (11) Seizure disorder Code(s): G40.909 - EPILEPSY, UNSP, NOT INTRACTABLE, WITHOUT STATUS EPILEPTICUS Status: Chronic (12) Thrombocytopenia Code(s): D69.6 - THROMBOCYTOPENIA, UNSPECIFIED Status: Chronic (13) Fluid overload Code(s): E87.70 - FLUID OVERLOAD, UNSPECIFIED Status: Resolved (14) V-tach Code(s): I47.2 - VENTRICULAR TACHYCARDIA Status: Acute Comment: s/p shock/ cardioversion in sinus - 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 Review of Systems - Medications/Allergies Allergies/Adverse Reactions: Allergies Allergy/AdvReac Type Severity Reaction Status Date / Time phenytoin sodium Allergy Severe Emesis Verified 03/23/18 17:23 [From Dilantin] phenytoin sodium extended Allergy Severe Emesis Verified 03/23/18 17:23 [From Dilantin] midazolam HCl [From Versed] Allergy Intermediate swelling Verified 03/23/18 17: 23 Medications: Current Medications Acetaminophen (Tylenol) 1,000 mg PO Q6H PRN PRN Reason: Moderate to Severe Pain (6-10) Last Admin: 04/05/18 02:30 Dose: 1,000 mg Amiodarone HCl (Cordarone) 200 mg PO BID [facility] Last Admin: 04/08/18 10:37 Dose: 200 mg Benzonatate (Tessalon) 100 mg PO TID [facility] Last Admin: 04/08/18 10:37 Dose: 100 mg Calcium Carbonate (Tums) 1,000 mg PO Q4H PRN PRN Reason: Heartburn or Indigestion Carvedilol (Coreg) 6.25 mg PO BID[facility] Last Admin: 04/08/18 10:37 Dose: 6.25 mg Cefdinir (Omnicef) 300 mg PO DAILY [facility] Last Admin: 04/08/18 10:37 Dose: 300 mg Cosyntropin (Cortrosyn) 250 mcg SLOW IVP WILLCALL [facility] Last Admin: 03/25/18 14:05 Dose: 250 mcg Docusate Sodium (Colace) 100 mg PO BID [facility] Last Admin: 04/08/18 10:38 Dose: Not Given Epoetin Nain (Procrit) 10,000 units SC Q7D [facility] Last Admin: 04/05/18 15:44 Dose: 10,000 units Famotidine (Pepcid) 20 mg PO DAILY [facility] Last Admin: 04/08/18 10:37 Dose: 20 mg Loperamide HCl (Imodium) 2 mg PO PRN PRN PRN Reason: Diarrhea/Loose Stools Loratadine/Pseudoephedrine Sulfate (Claritin-D 24 Hour) 1 tab PO DAILY [facility] Last Admin: 04/08/18 10:36 Dose: 1 tab Melatonin (Melatonin) 3 mg PO HSPRN PRN PRN Reason: Insomnia Last Admin: 04/03/18 00:28 Dose: 3 mg Ondansetron HCl (Zofran Odt) 4 mg PO Q6H PRN PRN Reason: Nausea/Vomiting Last Admin: 03/27/18 21:37 Dose: 4 mg Ondansetron HCl (Zofran) 4 mg IVP Q6H PRN PRN Reason: Nausea/Vomiting Last Admin: 03/30/18 23:20 Dose: 4 mg Oxcarbazepine (Trileptal) 600 mg PO BID [facility] Last Admin: 04/08/18 10:36 Dose: 600 mg Polyethylene Glycol (Miralax) 17 gm PO DAILY [facility] Last Admin: 04/08/18 10:38 Dose: Not Given Quetiapine Fumarate (Seroquel) 25 mg PO HS [facility] Last Admin: 04/07/18 22:10 Dose: 25 mg Saccharomyces Boulardii (Florastor) 250 mg PO DAILY [facility] Last Admin: 04/08/18 10:37 Dose: 250 mg Sodium Chloride (Flush - Normal Saline) 10 ml IVF Q12HR [facility] Last Admin: 04/08/18 10:38 Dose: 10 ml Sodium Chloride (Flush - Normal Saline) 10 ml IVF PRN PRN PRN Reason: Saline Flush Last Admin: 04/01/18 02:51 Dose: 10 ml Tramadol HCl (Ultram) 50 mg PO Q6H PRN PRN Reason: Pain 1-5 Stop: 04/09/18 16:07 Last Admin: 04/07/18 22:11 Dose: 50 mg Vitamin B Complex/Vit C/Folic Acid (Nephro-Maria C Tablet) 1 tab PO DAILY [facility] Last Admin: 04/08/18 10:43 Dose: 1 tab Zolpidem Tartrate (Ambien) 5 mg PO HSPRN PRN PRN Reason: Insomnia Last Admin: 03/27/18 21:31 Dose: 5 mg
[2018-04-08] MEDS ORDERED: CEFAZOLIN 1 GM VIAL ONE (11:43)
--- NOTE | 2018-04-08 13:11 | PDOC.CTH ---
Cardiology Progress Note - Subjective The pt seen and examined. No overnight events. No cardiac complaints. The pt is confused about place, date, situation now. No AICD placement today due to low Platelet level even after 10 units platelet tx yesterday. - Objective Vital Signs Temp Pulse Pulse Resp BP BP BP 04/08/18 12:05 97.9 F 77 18 114/72 04/08/18 12:00 97.9 F 77 17 114/72 04/08/18 10:37 107/68 04/08/18 09:22 97.5 F L 75 18 110/70 04/08/18 09:07 98.2 F 78 17 108/66 04/08/18 08:00 98.2 F 78 16 108/66 04/08/18 03:41 97.8 F 75 18 106/69 Pulse Ox 04/08/18 12:05 04/08/18 12:00 96 04/08/18 10:37 04/08/18 09:22 04/08/18 09:07 04/08/18 08:00 96 04/08/18 03:41 97 Admit Weight 251 lb 8 oz Weight 225 lb 6 oz 04/07/18 04/08/18 04/09/18 06:59 06:59 06:59 Intake Total 150 440 0 Output Total 0 1200 Balance 150 -760 0 - Physical Examination Lungs: CTA (diminished at bases) Heart: RRR Abdomen: soft Extremities: other: (1-2+ pitting BLE edema) - Telemetry Telemetry Rhythm: SR - Labs Result Diagrams: 04/08/18 05:37 04/07/18 07:23 Troponin/CKMB CK-MB (CK-2) 0.4 ng/mL (0-6.6) 03/23/18 05:26 Troponin I 0.134 ng/mL (< 0.028) H 03/23/18 11:35 - Assessment/Plan 1. Afib/flutter - Maintaining in NSR after cardioversion for V-fib. 2. Acute on chronic combined HF - Stable; on Coreg and HD. Not on DAVID/ARB 2/2 hypotensive and hx of CKD. 3. ESRD - on HD on , , Wed; managed by Dr De La Rosa. 4. Antiphospholipid antibody syndrome with hx of DVT/PE and IVC filter placement - Not on OAC 2/2 hx of perinephric hematima in 01/2018 5. HTN - stable; 6. Hx of spontaneous perinephric retroperitoneal hematoma. 7. Hx of seizure - 8. Acute delirium with poor short term memory. MAR reviewed * Per EP, Bi-V ICD and future AVJ ablation by Dr Godwin in future. Review of Systems - Review of Systems Constitutional: reports: no symptoms reported EENTM: reports: no symptoms reported Respiratory: reports: no symptoms reported Cardiac (ROS): reports: no symptoms reported ABD/GI: reports: no symptoms reported : reports: no symptoms reported Musculoskeletal: reports: no symptoms reported
--- NOTE | 2018-04-08 15:38 | RAD ---
SINGLE VIEW OF THE CHEST: Comparison: 01-27-18, 04-01-18 History: Pacemaker placement. FINDINGS: Single view of the chest shows an enlarged but stable cardiomediastinal silhouette. There is a left s ubclavian pacemaker with its lead in the right atrium, right ventricle and coronary sinus. No pneumot horax is seen. The dialysis catheter is unchanged in position. IMPRESSION: Status post pacemaker placement without evidence of complication. POS: TPC
[2018-04-08] MEDS ORDERED: Acetaminophen/Codeine 30-300mg Tablet PO PRN ×2 (16:15)
[2018-04-08] MEDS: Cephalexin 250 MG CAP PO SCH ×2 (18:31→23:03)
[2018-04-09] MEDS: Cephalexin 250 MG CAP PO SCH ×3 (05:38→18:22)
[2018-04-09 06:34] LABS: #Eosinphils 0.1 thou/uL (0.0-0.7); #Lymphocytes 1.2 thou/uL (1.20-3.40); #Monocytes 0.6 thou/uL (0.11-0.59); #Neutrophils 4.5 thou/uL (1.40-6.50); %Basophils 0.2 % (0.0-1.0); %Eosinophils 1.6 % (0.0-10.0); %Lymphocytes 18.4 % (21.0-51.0); %Monocytes 9.6 % (0.0-10.0); %Neutrophils 70.3 % (42.0-75.0); Hemoglobin 8.8 g/dL (14.0-18.0); Mean Corpuscular HGB CONC 32.8 g/dL (32.0-36.0); Mean Corpuscular Hemoglobin 30.8 pg (27.0-31.0); Mean Corpuscular Volume 93.8 fL (78.0-98.0); Mean Platelet Volume 9.1 fL (7.4-10.4); Platelet Count 49 thou/uL (130-400); RBC Distribution Width 14.8 % (11.5-14.5); Red Blood Cell (RBC) Count 2.85 mill/uL (4.70-6.10); White Blood Cell (WBC) Count 6.5 thou/uL (4.8-10.8)
[2018-04-09] MEDS: Amiodarone 200 MG TAB PO SCH ×2 (08:29→20:31)
[2018-04-09] MEDS: Famotidine 20 MG TAB PO SCH (08:29)
[2018-04-09] MEDS: OXcarbazepine 300 MG TAB PO SCH ×2 (08:29→20:32)
[2018-04-09] MEDS: Loratadine/Pseudoephedrine 10/240 mg Tablet PO SCH (08:29)
[2018-04-09] MEDS: Saccharomyces boulardii 250 MG CAP PO SCH (08:29)
[2018-04-09] MEDS: Docusate 100 MG CAP PO SCH ×2 (08:29→20:32)
[2018-04-09] MEDS: Carvedilol 6.25 MG TAB PO SCH ×2 (08:29→18:22)
[2018-04-09] MEDS: Folic Acid/Vit B Comp W-C PO SCH (08:29)
[2018-04-09] MEDS: Cefdinir 300 MG CAP PO SCH ×2 (08:29→19:21)
[2018-04-09] MEDS: Benzonatate 100 MG CAP PO SCH ×3 (08:29→20:31)
[2018-04-09] MEDS: Polyethylene Glycol 3350 17 GM Packet PO SCH (08:30)
--- NOTE | 2018-04-09 11:03 | PDOC.PN ---
- Subjective Encounter Start Date: 04/09/18 Encounter Start Time: 08:30 Subjective: getting HD now -: no sob or pain - Objective Resuscitation Status - Order Detail: 03/23/18 07:56 Resuscitation Status Routine Resuscitation Status: FULL: Full Resuscitation MAR Reviewed: Yes Vital Signs & Weight: Vital Signs (12 hours) Temp Pulse Resp BP BP BP Pulse Ox 04/09/18 08:29 127/80 04/09/18 08:00 97.3 F L 75 17 127/80 97 04/09/18 03:26 97.7 F 68 18 101/60 94 L Weight Admit Weight 251 lb 8 oz Weight 226 lb 1.6 oz Most Recent Monitor Data Heart Rate from ECG 72 NIBP 96/51 NIBP BP-Mean 66 Respiration from ECG 20 SpO2 96 I&O: 04/08/18 04/09/18 04/10/18 06:59 06:59 06:59 Intake Total 440 1240 Output Total 1200 0 Balance -760 1240 Result Diagrams: 04/09/18 06:06 04/07/18 07:23 Phys Exam - Physical Examination HEENT: PERRLA, moist MMs Neck: no JVD, supple Respiratory: no wheezing, no rales Cardiovascular: RRR, no significant murmur left infraclavicular area AICD surgical site is clean Gastrointestinal: soft, non-tender, positive bowel sounds Musculoskeletal: no edema, pulses present Neurological: non-focal, moves all 4 limbs Psychiatric: A&O x 3 Dx/Plan (1) Acute respiratory failure with hypoxia Code(s): J96.01 - ACUTE RESPIRATORY FAILURE WITH HYPOXIA Status: Resolved (2) Acute exacerbation of CHF (congestive heart failure) Code(s): I50.9 - HEART FAILURE, UNSPECIFIED Status: Acute Qualifiers: Heart failure type: combined systolic and diastolic Qualified Code(s): I50.43 - Acute on chronic combined systolic (congestive) and diastolic ( congestive) heart failure Comment: ef of 40%, class C (3) PNA (pneumonia) Code(s): J18.9 - PNEUMONIA, UNSPECIFIED ORGANISM Status: Resolved Qualifiers: Pneumonia type: due to unspecified organism Laterality: bilateral (4) Antiphospholipid syndrome Code(s): D68.61 - ANTIPHOSPHOLIPID SYNDROME Status: Chronic Comment: Coumadin on hold since 02/13 due to perinephric hematoma (5) Atrial fibrillation Code(s): I48.91 - UNSPECIFIED ATRIAL FIBRILLATION Status: Chronic Qualifiers: Atrial fibrillation type: paroxysmal (6) Cardiomyopathy Code(s): I42.9 - CARDIOMYOPATHY, UNSPECIFIED Status: Chronic (7) Gout Code(s): M10.9 - GOUT, UNSPECIFIED Status: Chronic Qualifiers: Gout site: unspecified site Gout etiology: unspecified cause (8) HTN (hypertension) Code(s): I10 - ESSENTIAL (PRIMARY) HYPERTENSION Status: Chronic Qualifiers: Hypertension type: essential hypertension (9) History of pulmonary embolism Code(s): Z86.711 - PERSONAL HISTORY OF PULMONARY EMBOLISM Status: Chronic Comment: h/o IVC filter (10) Physical deconditioning Code(s): R53.81 - OTHER MALAISE Status: Chronic (11) Seizure disorder Code(s): G40.909 - EPILEPSY, UNSP, NOT INTRACTABLE, WITHOUT STATUS EPILEPTICUS Status: Chronic (12) Thrombocytopenia Code(s): D69.6 - THROMBOCYTOPENIA, UNSPECIFIED Status: Chronic (13) Fluid overload Code(s): E87.70 - FLUID OVERLOAD, UNSPECIFIED Status: Resolved (14) V-tach Code(s): I47.2 - VENTRICULAR TACHYCARDIA Status: Acute Comment: s/p shock/ cardioversion in sinus - Plan got his aicd, 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 Review of Systems - Medications/Allergies Allergies/Adverse Reactions: Allergies Allergy/AdvReac Type Severity Reaction Status Date / Time phenytoin sodium Allergy Severe Emesis Verified 03/23/18 17:23 [From Dilantin] phenytoin sodium extended Allergy Severe Emesis Verified 03/23/18 17:23 [From Dilantin] midazolam HCl [From Versed] Allergy Intermediate swelling Verified 03/23/18 17: 23 Medications: Current Medications Acetaminophen (Tylenol) 1,000 mg PO Q6H PRN PRN Reason: Moderate to Severe Pain (6-10) Last Admin: 04/05/18 02:30 Dose: 1,000 mg Acetaminophen/Codeine Phosphate (Tylenol #3) 1 tab PO Q4H PRN PRN Reason: Mild Pain (1-3) Acetaminophen/Codeine Phosphate (Tylenol #3) 2 tab PO Q4H PRN PRN Reason: Moderate Pain (4-6) Amiodarone HCl (Cordarone) 200 mg PO BID [facility] Last Admin: 04/09/18 08:29 Dose: 200 mg Benzonatate (Tessalon) 100 mg PO TID [facility] Last Admin: 04/09/18 08:29 Dose: 100 mg Calcium Carbonate (Tums) 1,000 mg PO Q4H PRN PRN Reason: Heartburn or Indigestion Carvedilol (Coreg) 6.25 mg PO BID-[facility] Last Admin: 04/09/18 08:29 Dose: 6.25 mg Cefdinir (Omnicef) 300 mg PO DAILY [facility] Last Admin: 04/09/18 08:29 Dose: 300 mg Cephalexin (Keflex) 500 mg PO Q6HR [facility] Stop: 04/15/18 12:01 Last Admin: 04/09/18 05:38 Dose: 500 mg Cosyntropin (Cortrosyn) 250 mcg SLOW IVP WILLCALL [facility] Last Admin: 03/25/18 14:05 Dose: 250 mcg Docusate Sodium (Colace) 100 mg PO BID [facility] Last Admin: 04/09/18 08:29 Dose: Not Given Epoetin Nain (Procrit) 10,000 units SC Q7D [facility] Last Admin: 04/05/18 15:44 Dose: 10,000 units Famotidine (Pepcid) 20 mg PO DAILY [facility] Last Admin: 04/09/18 08:29 Dose: 20 mg Loperamide HCl (Imodium) 2 mg PO PRN PRN PRN Reason: Diarrhea/Loose Stools Loratadine/Pseudoephedrine Sulfate (Claritin-D 24 Hour) 1 tab PO DAILY [facility] Last Admin: 04/09/18 08:29 Dose: 1 tab Melatonin (Melatonin) 3 mg PO HSPRN PRN PRN Reason: Insomnia Last Admin: 04/03/18 00:28 Dose: 3 mg Ondansetron HCl (Zofran Odt) 4 mg PO Q6H PRN PRN Reason: Nausea/Vomiting Last Admin: 03/27/18 21:37 Dose: 4 mg Ondansetron HCl (Zofran) 4 mg IVP Q6H PRN PRN Reason: Nausea/Vomiting Last Admin: 03/30/18 23:20 Dose: 4 mg Oxcarbazepine (Trileptal) 600 mg PO BID [facility] Last Admin: 04/09/18 08:29 Dose: 600 mg Polyethylene Glycol (Miralax) 17 gm PO DAILY [facility] Last Admin: 04/09/18 08:30 Dose: Not Given Quetiapine Fumarate (Seroquel) 25 mg PO HS [facility] Last Admin: 04/08/18 21:41 Dose: 25 mg Saccharomyces Boulardii (Florastor) 250 mg PO DAILY [facility] Last Admin: 04/09/18 08:29 Dose: 250 mg Sodium Chloride (Flush - Normal Saline) 10 ml IVF Q12HR [facility] Last Admin: 04/09/18 08:30 Dose: 10 ml Sodium Chloride (Flush - Normal Saline) 10 ml IVF PRN PRN PRN Reason: Saline Flush Last Admin: 04/01/18 02:51 Dose: 10 ml Sodium Chloride (Flush - Normal Saline) 10 ml IVF Q12HR [facility] Last Admin: 04/09/18 08:30 Dose: Not Given Sodium Chloride (Flush - Normal Saline) 10 ml IVF PRN PRN PRN Reason: Saline Flush Tramadol HCl (Ultram) 50 mg PO Q6H PRN PRN Reason: Pain 1-5 Stop: 04/09/18 16:07 Last Admin: 04/07/18 22:11 Dose: 50 mg Vitamin B Complex/Vit C/Folic Acid (Nephro-Maria C Tablet) 1 tab PO DAILY [facility] Last Admin: 04/09/18 08:29 Dose: 1 tab Zolpidem Tartrate (Ambien) 5 mg PO HSPRN PRN PRN Reason: Insomnia Last Admin: 03/27/18 21:31 Dose: 5 mg
[2018-04-09] MEDS ORDERED: Heparin 1,000 UNITS/ML VIAL ONE (11:11)
[2018-04-10] MEDS: Cephalexin 250 MG CAP PO SCH ×5 (00:07→23:14)
[2018-04-10 05:09] LABS: #Eosinphils 0.2 thou/uL (0.0-0.7); #Lymphocytes 1.1 thou/uL (1.20-3.40); #Monocytes 0.7 thou/uL (0.11-0.59); #Neutrophils 5.4 thou/uL (1.40-6.50); %Basophils 0.2 % (0.0-1.0); %Eosinophils 2.3 % (0.0-10.0); %Lymphocytes 14.8 % (21.0-51.0); %Neutrophils 73.7 % (42.0-75.0); Hemoglobin 9.8 g/dL (14.0-18.0); Mean Corpuscular HGB CONC 33.2 g/dL (32.0-36.0); Mean Corpuscular Volume 93.5 fL (78.0-98.0); Mean Platelet Volume 9.7 fL (7.4-10.4); Platelet Count 45 thou/uL (130-400); RBC Distribution Width 14.8 % (11.5-14.5); Red Blood Cell (RBC) Count 3.15 mill/uL (4.70-6.10); White Blood Cell (WBC) Count 7.3 thou/uL (4.8-10.8)
[2018-04-10] MEDS: Saccharomyces boulardii 250 MG CAP PO SCH (08:23)
[2018-04-10] MEDS: Loratadine/Pseudoephedrine 10/240 mg Tablet PO SCH (08:23)
[2018-04-10] MEDS: Famotidine 20 MG TAB PO SCH (08:23)
[2018-04-10] MEDS: Folic Acid/Vit B Comp W-C PO SCH (08:23)
[2018-04-10] MEDS: OXcarbazepine 300 MG TAB PO SCH ×2 (08:23→20:38)
[2018-04-10] MEDS: Benzonatate 100 MG CAP PO SCH ×3 (08:23→20:39)
[2018-04-10] MEDS: Docusate 100 MG CAP PO SCH ×2 (08:24→20:38)
[2018-04-10] MEDS: Polyethylene Glycol 3350 17 GM Packet PO SCH (08:24)
[2018-04-10] MEDS: Amiodarone 200 MG TAB PO SCH ×2 (08:25→20:38)
[2018-04-10] MEDS: Carvedilol 6.25 MG TAB PO SCH ×2 (08:30→18:07)
--- NOTE | 2018-04-10 10:38 | PDOC.PN ---
- Subjective Encounter Start Date: 04/10/18 Encounter Start Time: 09:35 Subjective: no sob or palp -: ate his breakfast, feels better -: has not been amb - Objective Resuscitation Status - Order Detail: 03/23/18 07:56 Resuscitation Status Routine Resuscitation Status: FULL: Full Resuscitation MAR Reviewed: Yes Vital Signs & Weight: Vital Signs (12 hours) Temp Pulse Resp BP BP Pulse Ox 04/10/18 07:46 95 04/10/18 07:43 98.2 F 79 18 123/75 04/10/18 05:30 96 04/10/18 04:00 97.5 F L 76 16 104/61 96 Weight Admit Weight 251 lb 8 oz Weight 226 lb 1.6 oz Most Recent Monitor Data Heart Rate from ECG 72 NIBP 96/51 NIBP BP-Mean 66 Respiration from ECG 20 SpO2 96 I&O: 04/09/18 04/10/18 04/11/18 06:59 06:59 06:59 Intake Total 1240 880 Output Total 0 2000 Balance 1240 -1120 Result Diagrams: 04/10/18 04:22 04/07/18 07:23 Phys Exam - Physical Examination HEENT: PERRLA, moist MMs Neck: no JVD, supple Respiratory: no wheezing, no rales Cardiovascular: RRR, no significant murmur Gastrointestinal: soft, non-tender, positive bowel sounds Musculoskeletal: no edema, pulses present Neurological: non-focal, moves all 4 limbs Psychiatric: A&O x 3 Dx/Plan (1) Acute respiratory failure with hypoxia Code(s): J96.01 - ACUTE RESPIRATORY FAILURE WITH HYPOXIA Status: Resolved (2) Acute exacerbation of CHF (congestive heart failure) Code(s): I50.9 - HEART FAILURE, UNSPECIFIED Status: Acute Qualifiers: Heart failure type: combined systolic and diastolic Qualified Code(s): I50.43 - Acute on chronic combined systolic (congestive) and diastolic ( congestive) heart failure Comment: ef of 40%, class C (3) PNA (pneumonia) Code(s): J18.9 - PNEUMONIA, UNSPECIFIED ORGANISM Status: Resolved Qualifiers: Pneumonia type: due to unspecified organism Laterality: bilateral (4) Antiphospholipid syndrome Code(s): D68.61 - ANTIPHOSPHOLIPID SYNDROME Status: Chronic Comment: Coumadin on hold since 02/13 due to perinephric hematoma (5) Atrial fibrillation Code(s): I48.91 - UNSPECIFIED ATRIAL FIBRILLATION Status: Chronic Qualifiers: Atrial fibrillation type: paroxysmal (6) Cardiomyopathy Code(s): I42.9 - CARDIOMYOPATHY, UNSPECIFIED Status: Chronic 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 (7) Gout Code(s): M10.9 - GOUT, UNSPECIFIED Status: Chronic Qualifiers: Gout site: unspecified site Gout etiology: unspecified cause (8) HTN (hypertension) Code(s): I10 - ESSENTIAL (PRIMARY) HYPERTENSION Status: Chronic Qualifiers: Hypertension type: essential hypertension (9) History of pulmonary embolism Code(s): Z86.711 - PERSONAL HISTORY OF PULMONARY EMBOLISM Status: Chronic Comment: h/o IVC filter (10) Physical deconditioning Code(s): R53.81 - OTHER MALAISE Status: Chronic (11) Seizure disorder Code(s): G40.909 - EPILEPSY, UNSP, NOT INTRACTABLE, WITHOUT STATUS EPILEPTICUS Status: Chronic (12) Thrombocytopenia Code(s): D69.6 - THROMBOCYTOPENIA, UNSPECIFIED Status: Chronic (13) Fluid overload Code(s): E87.70 - FLUID OVERLOAD, UNSPECIFIED Status: Resolved (14) V-tach Code(s): I47.2 - VENTRICULAR TACHYCARDIA Status: Acute Comment: s/p shock/ cardioversion in sinus - Plan is on amiodarone, keflex post procedure -: awaiting rehab placement, may dc if placement is ready -: to amb as tolerated with PT -: continue coreg, trileptal and seroquel HS -: cognitively stable now * . Review of Systems - Medications/Allergies Allergies/Adverse Reactions: Allergies Allergy/AdvReac Type Severity Reaction Status Date / Time phenytoin sodium Allergy Severe Emesis Verified 03/23/18 17:23 [From Dilantin] phenytoin sodium extended Allergy Severe Emesis Verified 03/23/18 17:23 [From Dilantin] midazolam HCl [From Versed] Allergy Intermediate swelling Verified 03/23/18 17: 23 Medications: Current Medications Acetaminophen (Tylenol) 1,000 mg PO Q6H PRN PRN Reason: Moderate to Severe Pain (6-10) Last Admin: 04/05/18 02:30 Dose: 1,000 mg Acetaminophen/Codeine Phosphate (Tylenol #3) 1 tab PO Q4H PRN PRN Reason: Mild Pain (1-3) Acetaminophen/Codeine Phosphate (Tylenol #3) 2 tab PO Q4H PRN PRN Reason: Moderate Pain (4-6) Amiodarone HCl (Cordarone) 200 mg PO BID [facility] Last Admin: 04/10/18 08:25 Dose: 200 mg Benzonatate (Tessalon) 100 mg PO TID [facility] Last Admin: 04/10/18 08:23 Dose: 100 mg Calcium Carbonate (Tums) 1,000 mg PO Q4H PRN PRN Reason: Heartburn or Indigestion Carvedilol (Coreg) 6.25 mg PO BID-[facility] Last Admin: 04/10/18 08:30 Dose: 6.25 mg Cephalexin (Keflex) 500 mg PO Q6HR [facility] Stop: 04/15/18 12:01 Last Admin: 04/10/18 05:38 Dose: 500 mg Cosyntropin (Cortrosyn) 250 mcg SLOW IVP WILLCALL [facility] Last Admin: 03/25/18 14:05 Dose: 250 mcg Docusate Sodium (Colace) 100 mg PO BID [facility] Last Admin: 04/10/18 08:24 Dose: Not Given Epoetin Nain (Procrit) 10,000 units SC Q7D [facility] Last Admin: 04/05/18 15:44 Dose: 10,000 units Famotidine (Pepcid) 20 mg PO DAILY [facility] Last Admin: 04/10/18 08:23 Dose: 20 mg Loperamide HCl (Imodium) 2 mg PO PRN PRN PRN Reason: Diarrhea/Loose Stools Loratadine/Pseudoephedrine Sulfate (Claritin-D 24 Hour) 1 tab PO DAILY [facility] Last Admin: 04/10/18 08:23 Dose: 1 tab Melatonin (Melatonin) 3 mg PO HSPRN PRN PRN Reason: Insomnia Last Admin: 04/03/18 00:28 Dose: 3 mg Ondansetron HCl (Zofran Odt) 4 mg PO Q6H PRN PRN Reason: Nausea/Vomiting Last Admin: 03/27/18 21:37 Dose: 4 mg Ondansetron HCl (Zofran) 4 mg IVP Q6H PRN PRN Reason: Nausea/Vomiting Last Admin: 03/30/18 23:20 Dose: 4 mg Oxcarbazepine (Trileptal) 600 mg PO BID [facility] Last Admin: 04/10/18 08:23 Dose: 600 mg Polyethylene Glycol (Miralax) 17 gm PO DAILY [facility] Last Admin: 04/10/18 08:24 Dose: Not Given Quetiapine Fumarate (Seroquel) 25 mg PO HS [facility] Last Admin: 04/09/18 20:31 Dose: 25 mg Saccharomyces Boulardii (Florastor) 250 mg PO DAILY [facility] Last Admin: 04/10/18 08:23 Dose: 250 mg Sodium Chloride (Flush - Normal Saline) 10 ml IVF Q12HR [facility] Last Admin: 04/10/18 08:32 Dose: 10 ml Sodium Chloride (Flush - Normal Saline) 10 ml IVF PRN PRN PRN Reason: Saline Flush Last Admin: 04/01/18 02:51 Dose: 10 ml Sodium Chloride (Flush - Normal Saline) 10 ml IVF Q12HR [facility] Last Admin: 04/10/18 08:32 Dose: Not Given Sodium Chloride (Flush - Normal Saline) 10 ml IVF PRN PRN PRN Reason: Saline Flush Vitamin B Complex/Vit C/Folic Acid (Nephro-Maria C Tablet) 1 tab PO DAILY [facility] Last Admin: 04/10/18 08:23 Dose: 1 tab Zolpidem Tartrate (Ambien) 5 mg PO HSPRN PRN PRN Reason: Insomnia Last Admin: 03/27/18 21:31 Dose: 5 mg
[2018-04-11] MEDS: Cephalexin 250 MG CAP PO SCH ×3 (05:22→17:56)
[2018-04-11 05:27] LABS: #Eosinphils 0.1 thou/uL (0.0-0.7); #Lymphocytes 0.9 thou/uL (1.20-3.40); #Monocytes 0.5 thou/uL (0.11-0.59); #Neutrophils 3.1 thou/uL (1.40-6.50); %Eosinophils 1.1 % (0.0-10.0); %Lymphocytes 19.8 % (21.0-51.0); %Monocytes 10.5 % (0.0-10.0); %Neutrophils 68.6 % (42.0-75.0); Mean Corpuscular HGB CONC 33.2 g/dL (32.0-36.0); Mean Corpuscular Hemoglobin 30.5 pg (27.0-31.0); Mean Platelet Volume 9.7 fL (7.4-10.4); Platelet Count 39 thou/uL (130-400); RBC Distribution Width 14.6 % (11.5-14.5); Red Blood Cell (RBC) Count 2.95 mill/uL (4.70-6.10); White Blood Cell (WBC) Count 4.5 thou/uL (4.8-10.8)
[2018-04-11] MEDS: Benzonatate 100 MG CAP PO SCH ×3 (09:19→20:54)
[2018-04-11] MEDS: Saccharomyces boulardii 250 MG CAP PO SCH (09:19)
[2018-04-11] MEDS: Folic Acid/Vit B Comp W-C PO SCH (09:19)
[2018-04-11] MEDS: Docusate 100 MG CAP PO SCH ×2 (09:20→20:54)
[2018-04-11] MEDS: Amiodarone 200 MG TAB PO SCH ×2 (09:20→20:54)
[2018-04-11] MEDS: Famotidine 20 MG TAB PO SCH (09:20)
[2018-04-11] MEDS: Loratadine/Pseudoephedrine 10/240 mg Tablet PO SCH (09:20)
[2018-04-11] MEDS: Polyethylene Glycol 3350 17 GM Packet PO SCH (09:20)
[2018-04-11] MEDS: Carvedilol 6.25 MG TAB PO SCH ×2 (09:20→17:56)
[2018-04-11] MEDS: OXcarbazepine 300 MG TAB PO SCH ×2 (09:20→20:53)
--- NOTE | 2018-04-11 12:22 | PDOC.CTH ---
Cardiology Progress Note - Subjective The pt seen and examined. No overnight events. No cardiac complaints. He is very lethargic and refused to have breakfast. - Objective Vital Signs Temp Pulse Resp BP BP Pulse Ox 04/11/18 12:00 97.5 F L 70 18 118/72 96 04/11/18 07:48 95 04/11/18 07:44 97.6 F 70 17 99/66 95 04/11/18 03:59 97.8 F 76 13 109/69 99 Admit Weight 251 lb 8 oz Weight 225 lb 15.581 oz 04/10/18 04/11/18 04/12/18 06:59 06:59 06:59 Intake Total 880 810 Output Total 2000 0 Balance -1120 810 - Physical Examination Lungs: other: (diminished at bases) Heart: RRR Abdomen: soft Extremities: other: (1-2+ pitting BLE edema) - Telemetry Telemetry Rhythm: SR - Labs Result Diagrams: 04/11/18 05:19 04/07/18 07:23 Troponin/CKMB CK-MB (CK-2) 0.4 ng/mL (0-6.6) 03/23/18 05:26 Troponin I 0.134 ng/mL (< 0.028) H 03/23/18 11:35 - Assessment/Plan 1. Afib/flutter - Maintaining in NSR after cardioversion for V-fib. 2. Acute on chronic combined HF - S/p BiV AICD placement on 04/08/2018. Stable ; on Coreg and HD. Not on DAVID/ARB 2/2 hypotensive and hx of CKD. 3. ESRD - on HD on , , Wed; managed by Dr De La Rosa. 4. Antiphospholipid antibody syndrome with hx of DVT/PE and IVC filter placement - Not on OAC 2/2 hx of perinephric hematima in 01/2018 5. HTN - stable; 6. Hx of spontaneous perinephric retroperitoneal hematoma. 7. Hx of seizure - 8. Acute delirium with poor short term memory. MAR reviewed * From Cardiac standpoint, the pt is stable to tx to rehab. * The pt will f/u with Dr Jefferson' office within 2-4 wks. Pt.seen and eval. by me.I agree with the A/P by the last puller.He seems to be less confused but very deconditioned. Chest clear. RRR.Maintaining NSR. Review of Systems - Review of Systems Constitutional: reports: see HPI EENTM: reports: no symptoms reported Respiratory: reports: no symptoms reported Cardiac (ROS): reports: no symptoms reported ABD/GI: reports: no symptoms reported : reports: no symptoms reported Musculoskeletal: reports: no symptoms reported
--- NOTE | 2018-04-11 13:38 | PDOC.PN ---
- Subjective Encounter Start Date: 04/11/18 Encounter Start Time: 10:00 Subjective: no chest pain or sob -: slept well, has no complaints - Objective Resuscitation Status - Order Detail: 03/23/18 07:56 Resuscitation Status Routine Resuscitation Status: FULL: Full Resuscitation MAR Reviewed: Yes Vital Signs & Weight: Vital Signs (12 hours) Temp Pulse Resp BP BP Pulse Ox 04/11/18 12:00 97.5 F L 70 18 118/72 96 04/11/18 07:48 95 04/11/18 07:44 97.6 F 70 17 99/66 95 04/11/18 03:59 97.8 F 76 13 109/69 99 Weight Admit Weight 251 lb 8 oz Weight 225 lb 15.581 oz Most Recent Monitor Data Heart Rate from ECG 72 NIBP 96/51 NIBP BP-Mean 66 Respiration from ECG 20 SpO2 96 I&O: 04/10/18 04/11/18 04/12/18 06:59 06:59 06:59 Intake Total 880 810 Output Total 2000 0 Balance -1120 810 Result Diagrams: 04/11/18 05:19 04/07/18 07:23 Phys Exam - Physical Examination HEENT: PERRLA, sclera anicteric Neck: no JVD, supple Respiratory: no wheezing, no rales Cardiovascular: RRR, no significant murmur aicd scar is clean Gastrointestinal: soft, no distention, positive bowel sounds Musculoskeletal: no edema, pulses present Neurological: non-focal, moves all 4 limbs Dx/Plan (1) Acute respiratory failure with hypoxia Code(s): J96.01 - ACUTE RESPIRATORY FAILURE WITH HYPOXIA Status: Resolved (2) Acute exacerbation of CHF (congestive heart failure) Code(s): I50.9 - HEART FAILURE, UNSPECIFIED Status: Acute Qualifiers: Heart failure type: combined systolic and diastolic Qualified Code(s): I50.43 - Acute on chronic combined systolic (congestive) and diastolic ( congestive) heart failure Comment: ef of 40%, class C (3) PNA (pneumonia) Code(s): J18.9 - PNEUMONIA, UNSPECIFIED ORGANISM Status: Resolved Qualifiers: Pneumonia type: due to unspecified organism Laterality: bilateral (4) Antiphospholipid syndrome Code(s): D68.61 - ANTIPHOSPHOLIPID SYNDROME Status: Chronic Comment: Coumadin on hold since 02/13 due to perinephric hematoma (5) Atrial fibrillation Code(s): I48.91 - UNSPECIFIED ATRIAL FIBRILLATION Status: Chronic Qualifiers: Atrial fibrillation type: paroxysmal (6) Cardiomyopathy Code(s): I42.9 - CARDIOMYOPATHY, UNSPECIFIED Status: Chronic Comment: s/p aicd/respiratory care assistant (7) Gout Code(s): M10.9 - GOUT, UNSPECIFIED Status: Chronic Qualifiers: Gout site: unspecified site Gout etiology: unspecified cause (8) HTN (hypertension) Code(s): I10 - ESSENTIAL (PRIMARY) HYPERTENSION Status: Chronic Qualifiers: Hypertension type: essential hypertension (9) History of pulmonary embolism Code(s): Z86.711 - PERSONAL HISTORY OF PULMONARY EMBOLISM Status: Chronic Comment: h/o IVC filter (10) Physical deconditioning Code(s): R53.81 - OTHER MALAISE Status: Chronic (11) Seizure disorder Code(s): G40.909 - EPILEPSY, UNSP, NOT INTRACTABLE, WITHOUT STATUS EPILEPTICUS Status: Chronic (12) Thrombocytopenia Code(s): D69.6 - THROMBOCYTOPENIA, UNSPECIFIED Status: Chronic (13) Fluid overload Code(s): E87.70 - FLUID OVERLOAD, UNSPECIFIED Status: Resolved (14) V-tach Code(s): I47.2 - VENTRICULAR TACHYCARDIA Status: Resolved Comment: s/p shock /cardioversion in sinus - Plan hemostable, on keflex post aicd/respiratory care assistant -: may tx to rehab if accepted anytime -: is on amiodarone, coreg. No nicole/arb due to esrd -: continue trileptal and seroquel -: to amb with PT as tolerated * . Review of Systems - Medications/Allergies Allergies/Adverse Reactions: Allergies Allergy/AdvReac Type Severity Reaction Status Date / Time phenytoin sodium Allergy Severe Emesis Verified 03/23/18 17:23 [From Dilantin] phenytoin sodium extended Allergy Severe Emesis Verified 03/23/18 17:23 [From Dilantin] midazolam HCl [From Versed] Allergy Intermediate swelling Verified 03/23/18 17: 23 Medications: Current Medications Acetaminophen (Tylenol) 1,000 mg PO Q6H PRN PRN Reason: Moderate to Severe Pain (6-10) Last Admin: 04/05/18 02:30 Dose: 1,000 mg Acetaminophen/Codeine Phosphate (Tylenol #3) 1 tab PO Q4H PRN PRN Reason: Mild Pain (1-3) Acetaminophen/Codeine Phosphate (Tylenol #3) 2 tab PO Q4H PRN PRN Reason: Moderate Pain (4-6) Amiodarone HCl (Cordarone) 200 mg PO BID [facility] Last Admin: 04/11/18 09:20 Dose: 200 mg Benzonatate (Tessalon) 100 mg PO TID [facility] Last Admin: 04/11/18 09:19 Dose: 100 mg Calcium Carbonate (Tums) 1,000 mg PO Q4H PRN PRN Reason: Heartburn or Indigestion Carvedilol (Coreg) 6.25 mg PO BID[facility] Last Admin: 04/11/18 09:20 Dose: 6.25 mg Cephalexin (Keflex) 500 mg PO Q6HR [facility] Stop: 04/15/18 12:01 Last Admin: 04/11/18 12:13 Dose: 500 mg Cosyntropin (Cortrosyn) 250 mcg SLOW IVP WILLCALL [facility] Last Admin: 03/25/18 14:05 Dose: 250 mcg Docusate Sodium (Colace) 100 mg PO BID [facility] Last Admin: 04/11/18 09:20 Dose: Not Given Epoetin Nain (Procrit) 10,000 units SC Q7D [facility] Last Admin: 04/05/18 15:44 Dose: 10,000 units Famotidine (Pepcid) 20 mg PO DAILY [facility] Last Admin: 04/11/18 09:20 Dose: 20 mg Loperamide HCl (Imodium) 2 mg PO PRN PRN PRN Reason: Diarrhea/Loose Stools Loratadine/Pseudoephedrine Sulfate (Claritin-D 24 Hour) 1 tab PO DAILY [facility] Last Admin: 04/11/18 09:20 Dose: 1 tab Melatonin (Melatonin) 3 mg PO HSPRN PRN PRN Reason: Insomnia Last Admin: 04/03/18 00:28 Dose: 3 mg Ondansetron HCl (Zofran Odt) 4 mg PO Q6H PRN PRN Reason: Nausea/Vomiting Last Admin: 03/27/18 21:37 Dose: 4 mg Ondansetron HCl (Zofran) 4 mg IVP Q6H PRN PRN Reason: Nausea/Vomiting Last Admin: 03/30/18 23:20 Dose: 4 mg Oxcarbazepine (Trileptal) 600 mg PO BID [facility] Last Admin: 04/11/18 09:20 Dose: 600 mg Polyethylene Glycol (Miralax) 17 gm PO DAILY [facility] Last Admin: 04/11/18 09:20 Dose: Not Given Quetiapine Fumarate (Seroquel) 25 mg PO HS [facility] Last Admin: 04/10/18 20:37 Dose: 25 mg Saccharomyces Boulardii (Florastor) 250 mg PO DAILY [facility] Last Admin: 04/11/18 09:19 Dose: 250 mg Sodium Chloride (Flush - Normal Saline) 10 ml IVF Q12HR [facility] Last Admin: 04/11/18 09:21 Dose: 10 ml Sodium Chloride (Flush - Normal Saline) 10 ml IVF PRN PRN PRN Reason: Saline Flush Last Admin: 04/01/18 02:51 Dose: 10 ml Sodium Chloride (Flush - Normal Saline) 10 ml IVF Q12HR [facility] Last Admin: 04/11/18 09:22 Dose: Not Given Sodium Chloride (Flush - Normal Saline) 10 ml IVF PRN PRN PRN Reason: Saline Flush Vitamin B Complex/Vit C/Folic Acid (Nephro-Maria C Tablet) 1 tab PO DAILY [facility] Last Admin: 04/11/18 09:19 Dose: 1 tab Zolpidem Tartrate (Ambien) 5 mg PO HSPRN PRN PRN Reason: Insomnia Last Admin: 03/27/18 21:31 Dose: 5 mg
[2018-04-11 13:45] VITALS: BMI 26.8
--- NOTE | 2018-04-11 15:00 | PDOC.CTH ---
Cardiology Progress Note - Subjective EP progress note 04/11/18 Pt seem to be doing fair. No new symptoms. - Objective Vital Signs Temp Pulse Resp BP BP Pulse Ox 04/11/18 12:00 97.5 F L 70 18 118/72 96 04/11/18 07:48 95 04/11/18 07:44 97.6 F 70 17 99/66 95 04/11/18 03:59 97.8 F 76 13 109/69 99 Admit Weight 251 lb 8 oz Weight 225 lb 15.581 oz 04/10/18 04/11/18 04/12/18 06:59 06:59 06:59 Intake Total 880 810 Output Total 2000 0 Balance -1120 810 - Physical Examination General/Neuro: alert & oriented x3, NAD Lungs: CTA Heart: RRR Abdomen: no HSM, soft Other PE findings: ICD site without reaction. - Labs Result Diagrams: 04/11/18 05:19 04/07/18 07:23 Troponin/CKMB CK-MB (CK-2) 0.4 ng/mL (0-6.6) 03/23/18 05:26 Troponin I 0.134 ng/mL (< 0.028) H 03/23/18 11:35 - Assessment/Plan 1. Persistent atrial arrhythmias - loaded with amiodarone last admit. - not a candidate for ablation as he cannot take anticoagulation - Suppression of his AF/maintaining SR remains his best option. - Consider lariat for NITHYA closure later if patient condition stabilizes 2. Antiphospholipid syndrome - spontaneous perinephric hematoma in 02/13. No OAC since that time. 3. Combine diastolic/systolic heart failure, NYHA 3 4. Pancytopenia - received platelet transfusion pre and post procedure. 5. Hypoxemia 6. ESRD - on HD, per nephrology 7. Spontaneous monomorphic ventricular tachycardia - requiring defibrillation despite being on amiodarone - spontan induced during rapid AFL/Afib.. Most strips suggest monomorphic VT. S/P ICD implant. - BiV ICd implanted 04/08/18. Poss AV miranda ablation considered in the future. 8. Acute delirium - largely resolved but has poor short term memory. For now appears to be stabilizing. Continue amiodarone. Outpt follow up. Would sign off. Call if questions.
[2018-04-12] MEDS: Cephalexin 250 MG CAP PO SCH ×3 (00:02→12:14)
[2018-04-12 06:12] LABS: Band 14 % (5-11); Hemoglobin 8.9 g/dL (14.0-18.0); Lymphocytes 18 % (21-51); MDiff Complete? YES; Mean Corpuscular HGB CONC 33.9 g/dL (32.0-36.0); Mean Corpuscular Hemoglobin 30.9 pg (27.0-31.0); Mean Corpuscular Volume 91.1 fL (78.0-98.0); Mean Platelet Volume 10.3 fL (7.4-10.4); Metamyelocyte 3 % (0-0); Monocytes 8 % (0-10); Myelocyte 1 % (0-0); Neutrophil 56 % (42-75); Platelet Count 37 thou/uL (130-400); Platelet Morphology Comment Appears Decreased; RBC Distribution Width 14.5 % (11.5-14.5); Red Blood Cell (RBC) Count 2.88 mill/uL (4.70-6.10); White Blood Cell (WBC) Count 4.7 thou/uL (4.8-10.8)
--- NOTE | 2018-04-12 08:54 | PDOC.CTH ---
Cardiology Progress Note - Subjective The pt seen and examined. No overnight events. No cardiac complaints. He is more alerted today. However, complains of discomfort. Still intermittent confusion. - Objective Vital Signs Temp Pulse Resp BP Pulse Ox 04/12/18 07:05 97.5 F L 73 18 111/73 97 04/12/18 04:00 97.5 F L 74 18 114/73 98 Admit Weight 251 lb 8 oz Weight 229 lb 8.019 oz 04/11/18 04/12/18 04/13/18 06:59 06:59 06:59 Intake Total 810 540 Output Total 0 100 Balance 810 440 - Physical Examination Neck: carotid US brisk Lungs: other: (diminished at bases) Heart: RRR Abdomen: soft Extremities: other: (No edema) - Telemetry Telemetry Rhythm: SR - Labs Result Diagrams: 04/12/18 05:26 04/07/18 07:23 Troponin/CKMB CK-MB (CK-2) 0.4 ng/mL (0-6.6) 03/23/18 05:26 Troponin I 0.134 ng/mL (< 0.028) H 03/23/18 11:35 - Assessment/Plan 1. Afib/flutter - Maintaining in NSR after cardioversion for V-fib. Continue amiodarone. 2. Acute on chronic combined HF - S/p BiV AICD placement on 04/08/2018. Stable; on Coreg and HD. Not on DAVID/ARB 2/2 hypotensive and hx of CKD. 3. ESRD - on HD on , , Wed; managed by Dr De La Rosa. 4. Antiphospholipid antibody syndrome with hx of DVT/PE and IVC filter placement - Not on OAC 2/2 hx of perinephric hematima in 01/2018 5. HTN - stable; 6. Hx of spontaneous perinephric retroperitoneal hematoma. 7. Hx of seizure - 8. Acute delirium with poor short term memory. MAR reviewed * From Cardiac standpoint, the pt is stable to tx to rehab. * Poss AV miranda ablation considered in the future. * The pt will f/u with Dr Jefferson' office within 2-4 wks after he is d/joseph from Rehab. Pt. was seen and eval. by me. I agree with the A/P by the SUPERVISOR SHRIMP POND. Chest clear. RRR. Ready for transfer to rehab. Review of Systems - Review of Systems Constitutional: reports: see HPI EENTM: reports: no symptoms reported Respiratory: reports: no symptoms reported Cardiac (ROS): reports: no symptoms reported ABD/GI: reports: no symptoms reported : reports: no symptoms reported Musculoskeletal: reports: no symptoms reported
--- NOTE | 2018-04-12 09:19 | PRG ---
DATE OF SERVICE: 04/12/2018 SUBJECTIVE: Mr. Boo is a 47-year-old white male, followed up for his ESRD - on maintenance hemodialysis. He is currently undergoing dialysis - at the bedside supervising his dialysis. Fluid removal only as tolerated. Using no heparin. In the interim, he has had an AICD placed. The future AV miranda ablation is being considered by his press assistant, Dr. Godwin/Dr. Jefferson. No other complaints today. No chest pain or shortness of breath. OBJECTIVE: VITAL SIGNS: Blood pressure 125/75 and heart rate 75. GENERAL: Awake, alert, and comfortable, not in distress. SKIN: Adequate turgor. HEENT: Pinkish conjunctivae. Anicteric sclerae. NECK: No neck mass. No carotid bruits. No JVD. CHEST: No deformities. LUNGS: Clear breath sounds. No wheezing. No crackles. HEART: Normal sinus rhythm. No murmur. No gallops. No rubs. ABDOMEN: Globular, soft, and nontender. No masses. EXTREMITIES: No edema. No deformities. MEDICATIONS: Medications of April 12, 2018, was reviewed. LABORATORY DATA: Laboratories of April 12, 2018; white count 4.7, hemoglobin 8.9, and platelet count is 37,000. On April 07, 2018; sodium 137, potassium 4.4, chloride 98, carbon dioxide 28, BUN 27, creatinine 6.41, and calcium 9.4. ASSESSMENT AND PLAN: 1. End-stage renal disease, stable. We will continue current hemodialysis regimen. Fluid removal only as tolerated with the patient. He is tolerating said treatment. Continue Wednesday, , and Wednesday dialysis regimen. 2. Ventricular tachycardia/atrial fibrillation/atrial flutter - status post biventricular implantable cardioverter-defibrillator placement. Future cardiac ablation therapy. 3. Anemia. Continuing weekly Epogen. Job ID: [id number]
[2018-04-12] MEDS: Carvedilol 6.25 MG TAB PO SCH (09:36)
[2018-04-12] MEDS: Amiodarone 200 MG TAB PO SCH (09:37)
[2018-04-12] MEDS: OXcarbazepine 300 MG TAB PO SCH (09:38)
[2018-04-12] MEDS: Docusate 100 MG CAP PO SCH (09:38)
[2018-04-12] MEDS: Loratadine/Pseudoephedrine 10/240 mg Tablet PO SCH (09:38)
[2018-04-12] MEDS: Saccharomyces boulardii 250 MG CAP PO SCH (09:38)
[2018-04-12] MEDS: Benzonatate 100 MG CAP PO SCH ×2 (09:38→15:02)
[2018-04-12] MEDS: Polyethylene Glycol 3350 17 GM Packet PO SCH (09:38)
[2018-04-12] MEDS: Folic Acid/Vit B Comp W-C PO SCH (09:38)
[2018-04-12] MEDS: Famotidine 20 MG TAB PO SCH (09:38)
--- NOTE | 2018-04-12 11:11 | PDOC.PN ---
- Subjective Encounter Start Date: 04/12/18 Encounter Start Time: 08:30 Subjective: is getting HD now -: no chest pain or sob or palp - Objective Resuscitation Status - Order Detail: 03/23/18 07:56 Resuscitation Status Routine Resuscitation Status: FULL: Full Resuscitation MAR Reviewed: Yes Vital Signs & Weight: Vital Signs (12 hours) Temp Pulse Resp BP Pulse Ox 04/12/18 07:05 97.5 F L 73 18 111/73 97 04/12/18 04:00 97.5 F L 74 18 114/73 98 Weight Admit Weight 251 lb 8 oz Weight 229 lb 8.019 oz Most Recent Monitor Data Heart Rate from ECG 72 NIBP 96/51 NIBP BP-Mean 66 Respiration from ECG 20 SpO2 96 I&O: 04/11/18 04/12/18 04/13/18 06:59 06:59 06:59 Intake Total 810 540 Output Total 0 100 Balance 810 440 Result Diagrams: 04/12/18 05:26 04/07/18 07:23 Phys Exam - Physical Examination HEENT: PERRLA, moist MMs Neck: no JVD, supple Respiratory: no wheezing, no rales Cardiovascular: RRR, no significant murmur Gastrointestinal: soft, non-tender, positive bowel sounds Musculoskeletal: no edema, pulses present Neurological: non-focal, moves all 4 limbs Dx/Plan (1) Acute respiratory failure with hypoxia Code(s): J96.01 - ACUTE RESPIRATORY FAILURE WITH HYPOXIA Status: Resolved (2) Acute exacerbation of CHF (congestive heart failure) Code(s): I50.9 - HEART FAILURE, UNSPECIFIED Status: Acute Qualifiers: Heart failure type: combined systolic and diastolic Qualified Code(s): I50.43 - Acute on chronic combined systolic (congestive) and diastolic ( congestive) heart failure Comment: ef of 40%, class C (3) PNA (pneumonia) Code(s): J18.9 - PNEUMONIA, UNSPECIFIED ORGANISM Status: Resolved Qualifiers: Pneumonia type: due to unspecified organism Laterality: bilateral (4) Antiphospholipid syndrome Code(s): D68.61 - ANTIPHOSPHOLIPID SYNDROME Status: Chronic Comment: Coumadin on hold since 02/13 due to perinephric hematoma (5) Atrial fibrillation Code(s): I48.91 - UNSPECIFIED ATRIAL FIBRILLATION Status: Chronic Qualifiers: Atrial fibrillation type: paroxysmal (6) Cardiomyopathy Code(s): I42.9 - CARDIOMYOPATHY, UNSPECIFIED Status: Chronic Comment: s/p aicd/psychologist engineering (7) Gout Code(s): M10.9 - GOUT, UNSPECIFIED Status: Chronic Qualifiers: Gout site: unspecified site Gout etiology: unspecified cause (8) HTN (hypertension) Code(s): I10 - ESSENTIAL (PRIMARY) HYPERTENSION Status: Chronic Qualifiers: Hypertension type: essential hypertension (9) History of pulmonary embolism Code(s): Z86.711 - PERSONAL HISTORY OF PULMONARY EMBOLISM Status: Chronic Comment: h/o IVC filter (10) Physical deconditioning Code(s): R53.81 - OTHER MALAISE Status: Chronic (11) Seizure disorder Code(s): G40.909 - EPILEPSY, UNSP, NOT INTRACTABLE, WITHOUT STATUS EPILEPTICUS Status: Chronic (12) Thrombocytopenia Code(s): D69.6 - THROMBOCYTOPENIA, UNSPECIFIED Status: Chronic (13) Fluid overload Code(s): E87.70 - FLUID OVERLOAD, UNSPECIFIED Status: Resolved (14) V-tach Code(s): I47.2 - VENTRICULAR TACHYCARDIA Status: Resolved Comment: s/p shock /cardioversion in sinus - Plan hemostable -: may dc to rehab if accepted -: continue amiodarone, coreg and seroquel -: to amb as tolerated * . Review of Systems - Medications/Allergies Allergies/Adverse Reactions: Allergies Allergy/AdvReac Type Severity Reaction Status Date / Time phenytoin sodium Allergy Severe Emesis Verified 03/23/18 17:23 [From Dilantin] phenytoin sodium extended Allergy Severe Emesis Verified 03/23/18 17:23 [From Dilantin] midazolam HCl [From Versed] Allergy Intermediate swelling Verified 03/23/18 17: 23 Medications: Current Medications Acetaminophen (Tylenol) 1,000 mg PO Q6H PRN PRN Reason: Moderate to Severe Pain (6-10) Last Admin: 04/05/18 02:30 Dose: 1,000 mg Acetaminophen/Codeine Phosphate (Tylenol #3) 1 tab PO Q4H PRN PRN Reason: Mild Pain (1-3) Acetaminophen/Codeine Phosphate (Tylenol #3) 2 tab PO Q4H PRN PRN Reason: Moderate Pain (4-6) Amiodarone HCl (Cordarone) 200 mg PO BID [facility] Last Admin: 04/12/18 09:37 Dose: Not Given Benzonatate (Tessalon) 100 mg PO TID [facility] Last Admin: 04/12/18 09:38 Dose: Not Given Calcium Carbonate (Tums) 1,000 mg PO Q4H PRN PRN Reason: Heartburn or Indigestion Carvedilol (Coreg) 6.25 mg PO BID-WM [facility] Last Admin: 04/12/18 09:36 Dose: Not Given Cephalexin (Keflex) 500 mg PO Q6HR [facility] Stop: 04/15/18 12:01 Last Admin: 04/12/18 06:00 Dose: 500 mg Cosyntropin (Cortrosyn) 250 mcg SLOW IVP [place] [facility] Last Admin: 03/25/18 14:05 Dose: 250 mcg Docusate Sodium (Colace) 100 mg PO BID [facility] Last Admin: 04/12/18 09:38 Dose: Not Given Epoetin Nain (Procrit) 10,000 units SC Q7D [facility] Last Admin: 04/05/18 15:44 Dose: 10,000 units Famotidine (Pepcid) 20 mg PO DAILY [facility] Last Admin: 04/12/18 09:38 Dose: Not Given Loperamide HCl (Imodium) 2 mg PO PRN PRN PRN Reason: Diarrhea/Loose Stools Loratadine/Pseudoephedrine Sulfate (Claritin-D 24 Hour) 1 tab PO DAILY [facility] Last Admin: 04/12/18 09:38 Dose: Not Given Melatonin (Melatonin) 3 mg PO HSPRN PRN PRN Reason: Insomnia Last Admin: 04/03/18 00:28 Dose: 3 mg Ondansetron HCl (Zofran Odt) 4 mg PO Q6H PRN PRN Reason: Nausea/Vomiting Last Admin: 03/27/18 21:37 Dose: 4 mg Ondansetron HCl (Zofran) 4 mg IVP Q6H PRN PRN Reason: Nausea/Vomiting Last Admin: 03/30/18 23:20 Dose: 4 mg Oxcarbazepine (Trileptal) 600 mg PO BID [facility] Last Admin: 04/12/18 09:38 Dose: Not Given Polyethylene Glycol (Miralax) 17 gm PO DAILY [facility] Last Admin: 01/15/19 09:38 Dose: Not Given Quetiapine Fumarate (Seroquel) 25 mg PO HS [facility] Last Admin: 04/11/18 20:54 Dose: 25 mg Saccharomyces Boulardii (Florastor) 250 mg PO DAILY [facility] Last Admin: 04/12/18 09:38 Dose: Not Given Sodium Chloride (Flush - Normal Saline) 10 ml IVF Q12HR [facility] Last Admin: 04/12/18 09:39 Dose: Not Given Sodium Chloride (Flush - Normal Saline) 10 ml IVF PRN PRN PRN Reason: Saline Flush Last Admin: 04/01/18 02:51 Dose: 10 ml Sodium Chloride (Flush - Normal Saline) 10 ml IVF Q12HR [facility] Last Admin: 04/12/18 09:39 Dose: Not Given Sodium Chloride (Flush - Normal Saline) 10 ml IVF PRN PRN PRN Reason: Saline Flush Vitamin B Complex/Vit C/Folic Acid (Nephro-Maria C Tablet) 1 tab PO DAILY [facility] Last Admin: 04/12/18 09:38 Dose: Not Given Zolpidem Tartrate (Ambien) 5 mg PO HSPRN PRN PRN Reason: Insomnia Last Admin: 03/27/18 21:31 Dose: 5 mg
[2018-04-12] MEDS ORDERED: Heparin 10,000 UNITS/ 10 ML VIAL ONE (12:00)
[2018-04-12 12:14] VITALS: BP 121/83; TEMP 97.7
[2018-04-12] MEDS: Epoetin (ESRD) 10,000 UNITS/ML VIAL SC SCH (12:14)
[2018-04-12] MEDS: Ondansetron PF 4 MG/2 ML Vial IVP PRN (12:27)
[2018-04-12] MEDS: Ondansetron ODT 4 MG TAB PO PRN (12:34)
--- NOTE | 2018-04-13 14:57 | DIS ---
DATE OF ADMISSION: 03/26/2018 DATE OF DISCHARGE: 04/12/2018 DISCHARGE DISPOSITION: To inpatient rehab. PRIMARY DISCHARGE DIAGNOSES: Acute respiratory failure with hypoxia, resolved; ventricular tachycardia, status post shock/cardioversion with automatic implantable cardioverter-defibrillator placed; acute congestive heart failure exacerbation with combined systolic and diastolic dysfunction with ejection fraction of around 40%, class C; pneumonia, resolved; history of antiphospholipid syndrome; history of perinephric hematoma with anticoagulation held from January of 2018 for the same; paroxysmal atrial fibrillation; cardiomyopathy; gout; hypertension; history of pulmonary embolism with IVC filter; deconditioning; seizure disorder; thrombocytopenia. PROCEDURES DONE DURING HOSPITALIZATION: Please note, the patient was here for prolonged stay and [facility] for a complete list of procedures done. Abdominal and pelvic CAT scan done on the showed left renal and retroperitoneal hematoma remains large, but is significantly smaller than on previous study done on January 26. No new intraabdominal hemorrhage was seen. Dense bibasilar lung infiltrates and small bilateral pleural effusions were seen. The patient had placement of biventricular pacer with AICD on 04/08/[address] Ricardo Godwin, had right IJ cuffed tunneled hemodialysis catheter placed using fluoroscopy on 04/01/[address] Wagner. Blood cultures x2, no growth. Discharge H and H 9 and 26, platelet count is 37 which has been chronically low, white count of 4.7. Discharge BUN and creatinine 27 and 6.4. Albumin is 3.2. BNP 1848 on the 27 of March. Troponin I was indeterminate, peaking up to 0.13. CK-MB was 0.4. IgG subclass was 30 mg/dL within the normal range. Mellisa-1 IgG antibody less than 0.3. HBS antigen, nonreactive. INPATIENT CONSULTS: 1. Dr. De La Rosa for Nephrology. 2. Dr. Jefferson for Cardiology. 3. Dr. Ricardo Godwin For Electrophysiology. 4. Dr. White for Pulmonology. DISCHARGE MEDICATIONS: 1. Amiodarone 200 mg p.o. twice daily. 2. Trileptal 600 mg p.o. twice daily. 3. Timolol eye drops as before. 4. Coreg 6.25 mg twice daily. 5. Keflex 500 mg p.o. q.6 hourly for a total of 10 days post AICD insertion. 6. MiraLAX 17 g daily. 7. Seroquel 25 mg p.o. at bedtime. ALLERGIES: TO PHENYTOIN AND MIDAZOLAM. DISCHARGE PLAN: The patient to follow up with Dr. Ricardo Godwin as advised. He needs to follow up with Dr. Alex Gunn for Oncology, Dr. White for Pulmonology, Dr. Jefferson for Cardiology as advised and primary care physician in one week. BRIEF COURSE DURING HOSPITALIZATION: The patient initially got admitted on the with complaints of nausea, vomiting, and diarrhea. He was also found to be volume overloaded. The patient had missed dialysis prior to arrival and Dr. De La Rosa was consulted for dialysis. During the course of his stay here, the patient went into ventricular tachycardia and had to be cardioverted with shock. Subsequently, the patient was admitted to ICU. He had acute respiratory failure with hypoxia. He has had consultations with various specialists as mentioned above. The patient also had consultation with Dr. Jefferson and Dr. Ricardo Godwin. He subsequently has had placement of AICD with cardiac resynchronization therapy with baseline LBBB and low ejection fraction. This was in view of his ventricular tachycardia as well. He is known to be noncompliant with medications and hemodialysis. He was later downgraded to telemetry. In view of deconditioning, he is being discharged to inpatient rehab for further recuperation prior to going home. His medications were all optimized prior to discharge. The patient was counseled with regarding followups and keeping up appointments with dialysis. A total of 35 minutes was spent on discharge plan. Please see a [id number] documentation on [employer] for the day of discharge. Job ID: [id number]
--- NOTE | 2018-04-14 17:45 | PQF ---
EVANGELINA MUÑOZ,JOHANNE RAMOS MD [id number] [id number] CLINICAL DOCUMENTATION CLARIFICATION FORM: POST DISCHARGE Addendum to original discharge summary date: ____ Late entry note date: __ DATE: 04/14/18 ATTN: Please exercise your independent, professional judgment in responding to the clarification form. Clinical indicators are provided on the bottom of this form for your review Diagnosis: __x Acute on Chronic Systolic and Diastolic Heart Failure Present on Admission (POA): [ x ] Yes [ ] No [ ] Unable to determine Coding guidelines require hospitals to identify whether a diagnosis was present on admission (POA) or not. To accurately assign the appropriate POA indicator, this information must be clearly documented within the medical record. CLINICAL INDICATORS - SIGNS / SYMPTOMS / LABS Documentation to support POA status Elevated BNP Short of breath Fluid overload RISK FACTORS: Documentation to support POA status Acute respiratory failure Possible pnuemonia TREATMENT: Documentation to support POA status Dialysis Lasix (This form is maintained as a part of the permanent medical record) 2014 [employer]. All Rights Reserved Elías [email or web address] [phone] MTDD
== END 2018-04-12 17:45 | DRG 291 ==
LOC: ERS 04:40 → 2SW 08:04 → OBSVTOIN 03-26 07:20 → 2NO 03-26 13:01 → IMCU/EMU 03-27 14:19 → 2NO 03-28 14:20 → CCU 04-02 15:27 → 2NO 04-05 15:04
PROVIDERS: ADMIT Internal Medicine; ATTEND Internal Medicine
PROC: 05HM33Z Insertion of Infusion Device into Right Internal Jugular Vein, Percutaneous Approach (ICD-10-PCS; principal; 2018-03-26)
PROC: B513ZZA Fluoroscopy of Right Jugular Veins, Guidance (ICD-10-PCS; 2018-03-26)
PROC: 5A09457 Assistance with Respiratory Ventilation, 24-96 Consecutive Hours, Continuous Positive Airway Pressure (ICD-10-PCS; 2018-03-26)
PROC: 5A1D70Z Performance of Urinary Filtration, Intermittent, Less than 6 Hours Per Day (ICD-10-PCS; 2018-03-26)
DX: I11.0 Hypertensive heart disease with heart failure (principal); N18.6 End stage renal disease; J96.01 Acute respiratory failure with hypoxia; I26.99 Other pulmonary embolism without acute cor pulmonale; D61.818 Other pancytopenia; D68.61 Antiphospholipid syndrome; F23 Brief psychotic disorder; S37.019A Minor contusion of unspecified kidney, initial encounter; E86.0 Dehydration; I50.43 Acute on chronic combined systolic (congestive) and diastolic (congestive) heart failure; I42.8 Other cardiomyopathies; A08.4 Viral intestinal infection, unspecified; I48.0 Paroxysmal atrial fibrillation; Z99.2 Dependence on renal dialysis; D69.6 Thrombocytopenia, unspecified; Z86.718 Personal history of other venous thrombosis and embolism; Z79.01 Long term (current) use of anticoagulants; E66.01 Morbid (severe) obesity due to excess calories; Z88.8 Allergy status to other drugs, medicaments and biological substances; Z79.899 Other long term (current) drug therapy; E87.70 Fluid overload, unspecified; G40.909 Epilepsy, unspecified, not intractable, without status epilepticus; Z95.810 Presence of automatic (implantable) cardiac defibrillator; D63.1 Anemia in chronic kidney disease; I95.9 Hypotension, unspecified; E88.09 Other disorders of plasma-protein metabolism, not elsewhere classified; H40.9 Unspecified glaucoma
CPT/HCPCS: 33225; 33249; 36005; 36415; 36430; 71045; 71046; 74176; 75820; 76000; 80048; 80053; 80069; 80202; 80400; 82140; 82553; 82787; 82805; 83880; 84484; 85025; 85610; 85730; 86235; 86850; 86900; 86901; 87040; 87340; 90935; 93005; 93798; 94660; 96365; A4216; C1752; C1769; C1777; C1882; C1898; C1900; G0257; J0171; J0670; J0690; J0692; J0834; J1160; J1644; J2001; J2405; J2550; J2704; J3010; J3370; J3486; J3490; J7050; P9035; Q0162; Q4081

== ENCOUNTER 2018-04-30 10:52 | Observation (INO) | payer MEDICARE ==
[2018-04-30 12:27] LABS: #Eosinphils 0.1 thou/uL (0.0-0.7); #Lymphocytes 1.2 thou/uL (1.20-3.40); #Monocytes 0.3 thou/uL (0.11-0.59); #Neutrophils 2.5 thou/uL (1.40-6.50); %Eosinophils 1.3 % (0.0-10.0); %Lymphocytes 30.1 % (21.0-51.0); %Monocytes 6.8 % (0.0-10.0); %Neutrophils 61.9 % (42.0-75.0); Hemoglobin 10.2 g/dL (14.0-18.0); Mean Corpuscular HGB CONC 32.2 g/dL (32.0-36.0); Mean Corpuscular Hemoglobin 30.4 pg (27.0-31.0); Mean Corpuscular Volume 94.4 fL (78.0-98.0); Mean Platelet Volume 10.8 fL (7.4-10.4); Platelet Count 24 thou/uL (130-400); RBC Distribution Width 14.6 % (11.5-14.5); Red Blood Cell (RBC) Count 3.36 mill/uL (4.70-6.10)
[2018-04-30 12:31] LABS: ALT (SGPT) 7 U/L (8-55); AST (SGOT) 16 U/L (5-34); Albumin 2.8 g/dL (3.5-5.0); Alkaline Phosphatase 115 U/L (40-150); Anion Gap 12 mmol/L (10-20); BUN (Urea Nitrogen) 10 mg/dL (8.9-20.6); Bilirubin, Total 0.5 mg/dL (0.2-1.2); CK (CPK) 12 U/L (30-200); Calc. Creatinine Clearance 0 mL/min (70-130); Calcium 8.5 mg/dL (7.8-10.44); Carbon Dioxide 25 mmol/L (22-29); Chloride 99 mmol/L (98-107); Estimated GFR-MDRD 17; Globulin 3.1 g/dL (2.4-3.5); Glucose 99 mg/dL (70-105); Potassium 3.2 mmol/L (3.5-5.1); Protein, Total 5.9 g/dL (6.0-8.3); Sodium 133 mmol/L (136-145)
[2018-04-30 12:53] LABS: CKMB 0.5 ng/mL (0-6.6)
--- NOTE | 2018-04-30 12:56 | RAD ---
PORTABLE CHEST: Date: 04/30/18 HISTORY: Syncope. COMPARISON: 04/01/18. FINDINGS: Heart size upper limits of normal. Right-sided HemoSplit catheter is noted. Pacemaker is again noted to be in place. Lungs are clear of infiltrates. There are no signs of failure. IMPRESSION: No active intrathoracic disease. POS: [facility]
[2018-04-30 13:51] LABS: INR-International Normal Ratio 1.1; Prothrombin Time 14.4 SEC (12.0-14.7)
[2018-04-30 13:52] LABS: PTT 101.8 SEC (22.9-36.1)
[2018-04-30 16:03] LABS: Troponin I 0.065 ng/mL (< 0.028)
--- NOTE | 2018-04-30 16:35 | HP ---
PRIMARY CARE PHYSICIAN: Rossana Blanc MD REASON FOR ADMISSION: Near syncope. HISTORY OF PRESENT ILLNESS: A 47-year-old male, who has underlying history of ESRD, on hemodialysis, who was recently admitted in our hospital on 03/23/2018. His hospital course was prolonged. He was discharged to rehab facility on 04/13/2018. During that admission, the patient underwent pacemaker procedure. The patient's primary banking services clerk is Dr. De La Rosa. The patient has a history of atrial fibrillation, atrial flutter and he is on amiodarone. He also has congestive heart failure and he had biventricular AICD placement on 04/08/2018. He is getting hemodialysis Wednesday, , Wednesday. He stayed at rehab for couple of weeks and he was discharged from rehab yesterday. As per patient, he was not able to get correct prescription from rehab facility and he started taking medication from his previous prescription. This morning, the patient took all his blood pressure medication as per previous, home health nurse came and evaluated him and he was found with dizzy. His blood pressure was very low and paramedics was called. His systolic blood pressure was very low and that is why paramedics gave him IV fluid in Trendelenburg position, after that his blood pressure slightly improved and he was brought to emergency room for evaluation. At that time, the patient did not have any chest pain, palpitation, complete loss of consciousness. He did not have any focal motor or sensory symptoms. He denies any melena, hematochezia, diarrhea, UTI symptoms. He denies any abdominal pain. He denies any fall or trauma. He denies any headache. REVIEW OF SYSTEMS: CONSTITUTIONAL: Negative for weight loss or gain, ability to conduct usual activities. SKIN: Negative for rash, itching. EYES: Negative for double vision, pain. ENT/MOUTH: Negative for nose bleeding, neck stiffness, pain, tenderness. CARDIOVASCULAR: Negative for palpitations, dyspnea on exertion, orthopnea. RESPIRATORY: Negative for shortness of breath, wheezing, cough, hemoptysis, fever or night sweats. GASTROINTESTINAL: Negative for poor appetite, abdominal pain, heartburn, nausea, vomiting, constipation, or diarrhea. GENITOURINARY: Negative for urgency, frequency, dysuria, nocturia. MUSCULOSKELETAL: Negative for pain, swelling. NEUROLOGIC/PSYCHIATRIC: Negative for anxiety, depression. ALLERGY/IMMUNOLOGIC: Negative for skin rash, bleeding tendency. Please see my HPI for pertinent positives and negatives. All other review of systems reviewed and negative except as mentioned in HPI. PAST MEDICAL HISTORY: History of bilateral lower extremity DVT, history of pulmonary embolism, history of antiphospholipid antibody syndrome, history of mitral valve prolapse, history of chronic systolic heart failure with EF 40%, ESRD on hemodialysis Wednesday, , Wednesday, chronic anticoagulation, morbid obesity, hypertension, gout, glaucoma, pancytopenia with chronic thrombocytopenia. PAST SURGICAL HISTORY: Cardiac catheterization, dialysis access, IVC filter, pacemaker/defibrillator placement. PAST PSYCHIATRIC HISTORY: Anxiety and depression. SOCIAL HISTORY: The patient is , lives at home with family. He has a daughter. No history of tobacco, alcohol, or illicit drug abuse. FAMILY HISTORY: No family history of coronary artery disease, stroke, or cancer. ALLERGIES: PER REPORT, THE PATIENT IS ALLERGIC TO DILANTIN, VERSED. EMERGENCY ROOM COURSE: Reviewed. The patient is getting gentle IV fluid. CURRENT HOME MEDICATIONS: 1. Amiodarone 200 mg p.o. b.i.d. 2. Trileptal 300 mg p.o. b.i.d. 3. Timolol ophthalmic drops, 1 drop each eye b.i.d. 4. Coreg 6.25 mg p.o. b.i.d. 5. MiraLAX 17 g p.o. daily. 6. Seroquel 25 mg p.o. at bedtime. PHYSICAL EXAMINATION: VITAL SIGNS: Currently, blood pressure 98/57, pulse 60, respiratory rate 14, temperature 97.8, saturation 100% on room air. Weight 104.3 kg. GENERAL: The patient is currently alert, awake, no obvious acute distress. HEENT: Head normocephalic, atraumatic. Eyes: Pupils round, reactive to light. Extraocular muscle intact. ENT: Oropharynx within normal limits. Moist mucous membranes. No oral lesion. No pharyngeal erythema. No exudate. NECK: Supple. No JVD. No thyromegaly. No carotid bruit. LUNGS: Clear to auscultation without any rhonchi or rales. CHEST WALL: The patient does have dialysis tunneled catheter on the right side of chest. He has pacemaker on the left upper chest. Both sites are clear and without any tenderness. ABDOMEN: Soft. Bowel sounds present. Nontender. Nondistended. No organomegaly. No mass. No suprapubic tenderness. BACK: Unremarkable. No CVA tenderness. EXTREMITIES: Upper extremity: Passive movement of all joints are normal. Lower extremity, no edema. Good distal pulsation. SKIN: No skin rash. HEMATOLOGICAL SYSTEM: No lymphadenopathy. PSYCHIATRIC: Normal affect. SIGNIFICANT LABORATORY DATA: EKG showing pacemaker rhythm. Chest x-ray showing no acute cardiopulmonary process. CBC: WBC 4.0, hemoglobin 10.2, platelet 24. INR 1.1. Sodium 133, potassium 3.2, chloride 99, BUN 10, creatinine 3.91, glucose 99, and calcium 8.5. LFT: AST 16, ALT 7, alkaline phosphatase 115, albumin 2.8. CK of 12, CK-MB 0.5, troponin 0.079. BNP 324.8. ASSESSMENT AND PLAN: 1. Near syncope, most likely secondary to orthostatic hypotension from medication. Underlying arrhythmia needs to be excluded. The patient will be observed on telemetry floor. We will check orthostatic vitals. We will hold on blood pressure medication. Pacemaker will be interrogated. We will monitor on telemetry floor for any arrhythmia. Serial cardiac enzyme x3. The patient had most recent echocardiography in 01/2018, which showed EF 40% to 45% with diastolic dysfunction. During this admission, we will adjust blood pressure medication. 2. Chronic systolic and diastolic heart failure. The patient is currently euvolemic. His echo showed EF 40% to 45%. He has biventricular pacemaker as well. Because of low blood pressure, the patient is not able to get any blood pressure medication as well as he is not on DAVID inhibitor and ARB because of renal failure. 3. History of atrial flutter and fibrillation, currently with pacemaker. We will continue amiodarone 200 mg p.o. b.i.d. 4. History of antiphospholipid antibody syndrome with deep venous thrombosis and pulmonary embolism. The patient is not a good candidate for long-term anticoagulation. 5. Anxiety and depression. Continue Seroquel 25 mg p.o. at bedtime. 6. Hyponatremia and hypokalemia. We will replace potassium chloride 10 mEq p.o. one time dose. 7. Elevated troponin, which is chronic. We will do serial cardiac enzyme x3. 8. Hypoalbuminemia related with protein calorie malnutrition. The patient will be given nutritional supplement. 9. Pancytopenia with thrombocytopenia. We will continue with folic acid, vitamin B12 therapy. 10. Deep venous thrombosis prophylaxis, SCD boots. 11. Gastrointestinal prophylaxis, Pepcid 20 mg p.o. daily. CODE STATUS: The patient is full code. The patient's is surrogate decision maker. DISPOSITION PLAN: Based on clinical course, we are expecting the patient's stay in hospital 24 hours. Plan of care discussed with the patient in detail. Job ID: [id number]
[2018-04-30] MEDS ORDERED: Bisacodyl 5 MG TAB PO PRN (17:56)
[2018-04-30] MEDS ORDERED: Metoclopramide HCl 10 MG/2 ML VIAL IVP PRN (17:56)
[2018-04-30] MEDS ORDERED: Loratadine 10 MG TAB PO PRN (17:56)
[2018-04-30] MEDS ORDERED: Senokot S 8.6-50 MG TAB PO PRN (17:56)
[2018-04-30] MEDS ORDERED: Acetaminophen 325 MG TAB PO PRN (17:56)
[2018-04-30] MEDS ORDERED: Artificial Tear Sol 15 ML BOT EA EYE PRN (17:56)
[2018-04-30] MEDS ORDERED: Sodium Chloride 0.65% Nasal 44 ML BOT EA NARE PRN (17:56)
[2018-04-30] MEDS ORDERED: Diabetic Tussin 200 MG/10 ML UDCUP PO PRN (17:56)
[2018-04-30] MEDS ORDERED: Loperamide HCl 2 MG CAP PO PRN (17:56)
[2018-04-30] MEDS ORDERED: Cepastat Lozenges 1 LOZ PO PRN (17:56)
[2018-04-30] MEDS ORDERED: Zolpidem Tartrate 5 MG TAB PO PRN (17:56)
[2018-04-30] MEDS ORDERED: Eucerin (Mineral Oil/Petrolatum,White) 30 gm Jar TOP PRN (17:56)
[2018-04-30] MEDS ORDERED: Calcium Carbonate 500 MG ChewTAB PO PRN (17:56)
[2018-04-30] MEDS ORDERED: HYDROcodone/Acetaminophen 5/325 mg Tablet PO PRN (17:56)
[2018-04-30] MEDS ORDERED: Bisacodyl 10 MG SUPP PR PRN (17:56)
[2018-04-30 18:42] LABS: Troponin I 0.073 ng/mL (< 0.028)
[2018-04-30] MEDS: Sodium Chloride 0.9% 1,000 ML IV SCH ×2 (22:20→22:22)
[2018-04-30] MEDS: Amiodarone 200 MG TAB PO SCH (22:21)
[2018-04-30] MEDS: OXcarbazepine 300 MG TAB PO SCH (22:21)
[2018-04-30] MEDS: Timolol 0.5% Ophth Soln 5 ml Bottle EA EYE SCH (22:23)
[2018-05-01] MEDS: Sodium Chloride 0.9% 1,000 ML IV SCH (04:08)
[2018-05-01 06:23] LABS: Hemoglobin 8.4 g/dL (14.0-18.0); Mean Corpuscular HGB CONC 32.8 g/dL (32.0-36.0); Mean Corpuscular Hemoglobin 30.9 pg (27.0-31.0); Mean Corpuscular Volume 94.5 fL (78.0-98.0); Mean Platelet Volume 10.2 fL (7.4-10.4); Platelet Count 28 thou/uL (130-400); RBC Distribution Width 14.7 % (11.5-14.5); Red Blood Cell (RBC) Count 2.71 mill/uL (4.70-6.10); White Blood Cell (WBC) Count 3.1 thou/uL (4.8-10.8)
[2018-05-01 06:39] LABS: ALT (SGPT) 7 U/L (8-55); AST (SGOT) 14 U/L (5-34); Albumin 2.4 g/dL (3.5-5.0); Alkaline Phosphatase 95 U/L (40-150); Anion Gap 12 mmol/L (10-20); BUN (Urea Nitrogen) 13 mg/dL (8.9-20.6); Bilirubin, Total 0.2 mg/dL (0.2-1.2); Calc. Creatinine Clearance 34 mL/min (70-130); Calcium 7.8 mg/dL (7.8-10.44); Carbon Dioxide 23 mmol/L (22-29); Chloride 103 mmol/L (98-107); Estimated GFR-MDRD 17; Globulin 2.6 g/dL (2.4-3.5); Glucose 83 mg/dL (70-105)
[2018-05-01 06:51] LABS: #Monocytes 0.3 thou/uL (0.11-0.59); #Neutrophils 1.7 thou/uL (1.40-6.50); %Basophils 0.2 % (0.0-1.0); %Eosinophils 1.3 % (0.0-10.0); %Lymphocytes 33.6 % (21.0-51.0); %Monocytes 10.9 % (0.0-10.0); Platelet Morphology Comment Appears Decreased
[2018-05-01 07:16] LABS: Sodium 135 mmol/L (136-145)
[2018-05-01] MEDS: Amiodarone 200 MG TAB PO SCH ×2 (08:46→21:13)
[2018-05-01] MEDS: Aspirin Chewable 81 MG TAB PO SCH (08:47)
[2018-05-01] MEDS: OXcarbazepine 300 MG TAB PO SCH ×2 (08:47→21:13)
[2018-05-01] MEDS: Famotidine 20 MG TAB PO SCH (08:47)
[2018-05-01] MEDS: Timolol 0.5% Ophth Soln 5 ml Bottle EA EYE SCH ×2 (08:48→21:13)
[2018-05-01] MEDS: Polyethylene Glycol 3350 17 GM Packet PO SCH (08:49)
[2018-05-01] MEDS ORDERED: Epoetin (ESRD) 20,000 UNITS/ML SC SCH (09:45)
--- NOTE | 2018-05-01 10:37 | PRG ---
DATE OF SERVICE: 05/01/2018 SUBJECTIVE: Mr. Boo is a 47-year-old white male with known history of ESRD and was recently admitted to rehab and discharged one day prior to admission. He was readmitted back due to a near syncopal episode/hypotension. At the ER, he was noted to be on the hypotensive side and was given volume repletion, which improved his blood pressure. In the last 12 hours, blood pressure has stabilized with his blood pressure ranging from 147/68 to 173/77. The patient felt that this may have been related to an over-medication of his previous BP medications. No other complaints today. He is feeling better. He had no new complaints. He makes mention that he is having some pain from his joints. He denies any chest pain or shortness of breath. OBJECTIVE: VITAL SIGNS: Blood pressure is 173/77, heart rate 66, respiratory rate 18, temperature 97.4, pulse ox 96%. GENERAL: Noted to be awake, alert, comfortable, not in distress. SKIN: Adequate turgor. HEENT: Pinkish conjunctivae. Anicteric sclerae. No neck mass. No carotid bruits. No JVD. CHEST: No deformities. LUNGS: Clear breath sounds. HEART: Normal sinus rhythm. No murmur. No gallops. No rubs. ABDOMEN: Globular, soft, nontender. No masses. EXTREMITIES: Positive for edema. MEDICATIONS: Medications of May 01, 2018, reviewed. LABORATORY DATA: Laboratories of May 01, 2018; white count 3.1, hemoglobin 8.4. Sodium 135, potassium 3, chloride 103, carbon dioxide 23, BUN 13, creatinine 3.89. ASSESSMENT AND PLAN: 1. End-stage renal disease-there is some stabilization in the renal function. My plan is to simply continue to hold off dialysis and recheck back his basic metabolic tomorrow. If it remains unchanged, we need to consider the possibility that he may have some partial renal recovery. 2. Mild hypokalemia. We will simply observe. Encourage to increase p.o. and fluid intake with this patient. 3. Chronic thrombocytopenia. The patient will have Hematology evaluation as an outpatient. 4. Near syncopal episode, resolved with volume repletion. Continue to hold dialysis. Recheck basic metabolic, CBC in a.m. Job ID: [id number]
--- NOTE | 2018-05-01 11:47 | CON ---
DATE OF CONSULTATION: REASON FOR CONSULTATION: Syncope. HISTORY OF PRESENT ILLNESS: Mr. Boo is an unfortunate 47-year-old gentleman with previous history of end-stage renal disease in addition to thrombocytopenia, who represented with hypotension. He has been in and out of the hospital recently. He was in rehab. He states his medications were not adjusted appropriately. He was taking medications he probably should not have been taking after he left rehab. He had a presyncopal episode. No chest pain, pressure, or associated symptoms. His only complaint right now is pain in his lower extremities from gout. PAST MEDICAL HISTORY: Previous PE/DVT, cardiomyopathy, end-stage renal disease, thrombocytopenia, glaucoma, gout, hypertension, IVC filter placement. SOCIAL HISTORY: He is currently with one child. ALLERGIES: DILANTIN AND VERSED. HOME MEDICATIONS: Include, 1. Amiodarone. 2. Trileptal. 3. Timolol. 4. Coreg. 5. MiraLAX. 6. Seroquel. PHYSICAL EXAMINATION: GENERAL: Patient is a pleasant 47-year-old male who is in no acute distress. The patient appears their stated age. VITAL SIGNS: Blood pressure 173/77, pulse 66, and temperature 97.4. NEUROLOGIC: The patient is alert and oriented x3 with no focal neurologic deficits. HEENT: Sclerae without icterus. Mouth has moist mucous membranes with normal pallor. NECK: No JVD. Carotid upstroke brisk. No bruits bilaterally. LUNGS: Clear to auscultation with unlabored respirations. BACK: No scoliosis or kyphosis. CARDIAC: Regular rate and rhythm with normal S1 and S2. No S3 or S4 noted. No significant rubs, murmurs, thrills, or gallops noted throughout the precordium. PMI is not displaced. There is no parasternal heave. ABDOMEN: Soft, nontender, nondistended. No peritoneal signs present. No hepatosplenomegaly. No abnormal striae. EXTREMITIES: 2+ femoral and 2+ dorsalis pedis pulses. No cyanosis, clubbing, or edema. SKIN: No gross abnormalities. PERTINENT LABORATORY DATA: Platelet count 24,000, hemoglobin 10.2, and white blood cell count 4.0. IMPRESSION: 1. Hypotension. 2. Presyncope. 3. End-stage renal disease. 4. Mild cardiomyopathy. RECOMMENDATIONS: From CV standpoint, he appears stable. His symptoms are likely related to volume contraction versus oral medication. Last echo dated 01/27/2018 and showed an LVEF of 40% to 45%. Close observation recommended. Unfortunately, he states he cannot ambulate due to gout. The device will be interrogated for any significant dysrhythmias as well. Job ID: [id number]
[2018-05-01] MEDS ORDERED: Carvedilol 6.25 MG TAB PO SCH (13:04)
[2018-05-01] MEDS ORDERED: Colchicine 0.3 MG TAB PO SCH (13:05)
[2018-05-01] MEDS: Carvedilol 6.25 MG TAB PO SCH (16:51)
[2018-05-01] MEDS: Ferrous Sulfate 325 MG TAB PO SCH (16:51)
--- NOTE | 2018-05-01 18:24 | PDOC.PN ---
- Subjective Encounter Start Date: 05/01/18 Encounter Start Time: 09:42 Subjective: Patient feeling back to baseline. States he was generally unwell yesterday -: when the home health nurse took his BP and reportedly he was hypotensive. Recently discharged from rehab. has realized she was giving medications at prior dose not realizing he had a 50% dose reduction in Amiodarone and Coreg. Patient feeling very well and without any complaints except for discomfort in right hand, associated with gout flare up. Has not received his home medications including colchicine. He is without any fevers, chills or sweats. No n/v. No abdominal pain. Denies any chest pain, palpitations or sob. - Objective Resuscitation Status - Order Detail: 04/30/18 15:23 Resuscitation Status Routine Resuscitation Status: FULL: Full Resuscitation Vital Signs & Weight: Vital Signs (12 hours) Temp Pulse Pulse Resp BP BP BP 05/01/18 15:08 97.7 F 62 18 05/01/18 12:51 05/01/18 11:41 97.3 F L 60 20 144/70 H 05/01/18 11:15 62 144/65 H 05/01/18 08:48 66 05/01/18 07:37 97.4 F L 66 18 173/77 H BP BP Pulse Ox 05/01/18 15:08 137/60 99 05/01/18 12:51 130/60 119/56 L 05/01/18 11:41 99 05/01/18 11:15 05/01/18 08:48 05/01/18 07:37 96 Weight Weight 228 lb I&O: 04/30/18 05/01/18 05/02/18 06:59 06:59 06:59 Intake Total 240 960 Output Total 0 350 Balance 240 610 Result Diagrams: 05/01/18 05:32 05/01/18 05:32 Phys Exam - Physical Examination Constitutional: NAD HEENT: PERRLA, moist MMs, sclera anicteric, oral pharynx no lesions Neck: supple, full ROM Respiratory: clear to auscultation bilateral Cardiovascular: RRR Gastrointestinal: soft, non-tender, no distention, positive bowel sounds Musculoskeletal: no edema, pulses present Neurological: normal sensation Psychiatric: normal affect, A&O x 3 Skin: no rash Dx/Plan (1) Chronic atrial fibrillation with RVR Code(s): I48.2 - CHRONIC ATRIAL FIBRILLATION Status: Acute Comment: on Amiodarone.BB on hold due to Hypotension (2) Hypotension Status: Resolved Comment: Suspect hypovolemia. (3) End stage renal disease on dialysis Code(s): N18.6 - END STAGE RENAL DISEASE; Z99.2 - DEPENDENCE ON RENAL DIALYSIS Status: Chronic (4) Gout Code(s): M10.9 - GOUT, UNSPECIFIED Status: Chronic Qualifiers: Gout site: unspecified site Gout etiology: unspecified cause (5) HTN (hypertension) Code(s): I10 - ESSENTIAL (PRIMARY) HYPERTENSION Status: Chronic Qualifiers: Hypertension type: essential hypertension (6) Pancytopenia Code(s): D61.818 - OTHER PANCYTOPENIA Status: Chronic - Plan cont current plan of skilled nursing medications restarted. -: Seen by Dr. De La Rosa who is holding dialysis in light of possibly -: renal function regained. Monitor K+ as per Dr. De La Rosa. -: Patient awaiting cardiology review and device interrogation. -: Repeat orthostatic BPs. * .
[2018-05-02] MEDS: Colchicine 0.3 MG TAB PO SCH (05:35)
[2018-05-02 05:50] LABS: Anion Gap 13 mmol/L (10-20); BUN (Urea Nitrogen) 17 mg/dL (8.9-20.6); Calc. Creatinine Clearance 36 mL/min (70-130); Calcium 7.7 mg/dL (7.8-10.44); Carbon Dioxide 22 mmol/L (22-29); Chloride 102 mmol/L (98-107); Estimated GFR-MDRD 18; Glucose 79 mg/dL (70-105); Sodium 134 mmol/L (136-145)
[2018-05-02 05:54] LABS: #Basophils 0.1 thou/uL (0.0-0.2); #Eosinphils 0.1 thou/uL (0.0-0.7); #Lymphocytes 1.1 thou/uL (1.20-3.40); #Monocytes 0.3 thou/uL (0.11-0.59); #Neutrophils 1.7 thou/uL (1.40-6.50); %Basophils 1.8 % (0.0-1.0); %Eosinophils 3.4 % (0.0-10.0); %Lymphocytes 34.2 % (21.0-51.0); %Monocytes 9.1 % (0.0-10.0); %Neutrophils 51.6 % (42.0-75.0); Hemoglobin 7.8 g/dL (14.0-18.0); Mean Corpuscular HGB CONC 33.5 g/dL (32.0-36.0); Mean Corpuscular Hemoglobin 31.7 pg (27.0-31.0); Mean Corpuscular Volume 94.6 fL (78.0-98.0); Mean Platelet Volume 9.8 fL (7.4-10.4); Platelet Count 31 thou/uL (130-400); RBC Distribution Width 14.3 % (11.5-14.5); Red Blood Cell (RBC) Count 2.46 mill/uL (4.70-6.10); White Blood Cell (WBC) Count 3.3 thou/uL (4.8-10.8)
[2018-05-02] MEDS ORDERED: COLCHICINE 0.6 MG PO SCH (09:00)
[2018-05-02] MEDS ORDERED: Colchicine 0.6 MG TAB PO SCH (09:00)
[2018-05-02] MEDS: Aspirin Chewable 81 MG TAB PO SCH (09:24)
[2018-05-02] MEDS: Amiodarone 200 MG TAB PO SCH ×2 (09:24→21:06)
[2018-05-02] MEDS: Ferrous Sulfate 325 MG TAB PO SCH ×2 (09:24→18:17)
[2018-05-02] MEDS: OXcarbazepine 300 MG TAB PO SCH ×2 (09:24→21:06)
[2018-05-02] MEDS: Famotidine 20 MG TAB PO SCH (09:25)
[2018-05-02] MEDS: Carvedilol 6.25 MG TAB PO SCH ×2 (09:25→18:17)
[2018-05-02] MEDS: Timolol 0.5% Ophth Soln 5 ml Bottle EA EYE SCH ×2 (09:26→21:06)
[2018-05-02] MEDS: Polyethylene Glycol 3350 17 GM Packet PO SCH (09:26)
[2018-05-02] MEDS ORDERED: Albumin 25% 25 GM/100 ML BOT IVPB ONE (09:28)
[2018-05-02] MEDS ORDERED: Potassium Chloride 20 MEQ TAB PO SCH (09:30)
--- NOTE | 2018-05-02 09:47 | PRG ---
DATE OF SERVICE: 05/02/2018 RENAL MEDICINE. SUBJECTIVE: Mr. Boo is a 47-year-old white male, who has ESRD and admitted for near syncopal episode. He was volume repleted at that time. I decided to hold off the dialysis, and I saw there is some stabilization of the renal function. I noted his creatinine continues to improve over time. My plan is still to continue to hold off hemodialysis with him. He voices no new complaints. No acute events noted last night. OBJECTIVE: VITAL SIGNS: Blood pressure is 107/52, with a heart rate of 66, respiratory rate 18, and temperature 97.4. GENERAL: Noted to be awake, alert, comfortable, not in distress. SKIN: Adequate turgor. HEENT: Slightly pale conjunctivae. Anicteric sclerae. NECK: No neck mass. No carotid bruits. No JVD. CHEST: No deformities. LUNGS: Clear breath sounds. No wheezing. No crackles. HEART: Normal sinus rhythm. No murmurs, gallops, or rubs. ABDOMEN: Globular, soft, nontender. No masses. EXTREMITIES: No edema. No deformities. MEDICATIONS: Medications of May 02, 2018, reviewed. LABORATORY DATA: Laboratories of May 02, 2018: Sodium 134, potassium 3, chloride 102, carbon dioxide 22, BUN 17, creatinine 3.62, glucose 79, calcium 7.7. Hemoglobin 7.8. ASSESSMENT AND PLAN: 1. End-stage renal disease - the patient is making some urine. In addition, I see some spontaneous improvement of the creatinine. It is possible the patient maybe having some partial recovery with his renal dysfunction. My plan is to continue to hold off hemodialysis with him. At least today, I will give some albumin infusion to further optimize his hemodynamics. 2. Near syncopal episode/hypotension, resolved. 3. Anemia, on weekly Epogen. P.r.n. blood transfusion. 4. Chronic thrombocytopenia - the patient will have a followup with Hematology. 5. Mild hypokalemia. We will give p.o. potassium. Job ID: [id number]
[2018-05-02 12:36] VITALS: BMI 26.2
--- NOTE | 2018-05-02 17:06 | PDOC.PN ---
- Subjective Encounter Start Date: 05/02/18 Encounter Start Time: 17:05 Subjective: Patient lying in bed, he reports feeling better today, still complains -: of pain in joints due to gout. He received colchicine and tolerated well -: Denies chest pain, shortness of breath or abdominal pain. - Objective Resuscitation Status - Order Detail: 04/30/18 15:23 Resuscitation Status Routine Resuscitation Status: FULL: Full Resuscitation MAR Reviewed: Yes Vital Signs & Weight: Vital Signs (12 hours) Temp Pulse Pulse Pulse Resp BP BP 05/02/18 15:03 66 160/71 H 05/02/18 12:00 97.3 F L 60 16 05/02/18 09:26 72 148/77 H 05/02/18 09:25 148/77 H 05/02/18 09:06 66 72 107/52 L 05/02/18 08:00 97.4 F L 66 18 BP BP BP BP 05/02/18 15:03 05/02/18 12:00 159/83 H 05/02/18 09:26 05/02/18 09:25 05/02/18 09:06 148/77 H 05/02/18 08:00 148/77 H 107/52 L Weight Admit Weight 231 lb 3.2 oz Weight 221 lb 2 oz I&O: 05/01/18 05/02/18 05/03/18 06:59 06:59 06:59 Intake Total 240 1200 Output Total 0 350 Balance 240 850 Result Diagrams: 05/02/18 05:08 05/02/18 05:08 Radiology Reviewed by me: Yes Phys Exam - Physical Examination Constitutional: NAD HEENT: PERRLA, oral pharynx no lesions Neck: no nodes, full ROM Respiratory: no wheezing, no rales, clear to auscultation bilateral Cardiovascular: RRR, no significant murmur, no rub Gastrointestinal: soft, positive bowel sounds Musculoskeletal: no edema, pulses present Neurological: non-focal, moves all 4 limbs Lymphatic: no nodes Psychiatric: normal affect, A&O x 3 Skin: no rash, cap refill <2 seconds Dx/Plan (1) Chronic atrial fibrillation with RVR Code(s): I48.2 - CHRONIC ATRIAL FIBRILLATION Status: Acute Comment: on Amiodarone.BB on hold due to Hypotension (2) Cardiomyopathy Code(s): I42.9 - CARDIOMYOPATHY, UNSPECIFIED Status: Chronic 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 (3) End stage renal disease on dialysis Code(s): N18.6 - END STAGE RENAL DISEASE; Z99.2 - DEPENDENCE ON RENAL DIALYSIS Status: Chronic (4) Gout Code(s): M10.9 - GOUT, UNSPECIFIED Status: Chronic Qualifiers: Gout site: unspecified site Gout etiology: unspecified cause (5) H/O tonic-clonic seizures Code(s): Z86.69 - PERSONAL HISTORY OF DIS OF THE NERVOUS SYS AND SENSE ORGANS Status: Chronic Comment: s/o Lobectomy in past - Plan cont current plan of care, PT/OT Continue PT/OT -: Continue pain regimen with colchicine -: Cleared per cardiology, nephrology following -: Monitor H&H transfuse as needed -: Recheck BMP in morning * .
--- NOTE | 2018-05-02 18:54 | PDOC.CTH ---
Cardiology Progress Note - Subjective Pt. seen and eval. He denies symptoms today. His is at the bedside . Admiits to being mistaken about the medication doses and gave the pt. too high of doses of his medications, likely causing the hypotension. - Objective Vital Signs Temp Pulse Pulse Pulse Resp BP BP 05/02/18 18:17 144/67 H 05/02/18 16:00 97.1 F L 66 18 05/02/18 15:03 66 160/71 H 05/02/18 12:00 97.3 F L 60 16 05/02/18 09:26 72 148/77 H 05/02/18 09:25 148/77 H 05/02/18 09:06 66 72 107/52 L 05/02/18 08:00 97.4 F L 66 18 BP BP BP BP 05/02/18 18:17 05/02/18 16:00 144/67 H 05/02/18 15:03 05/02/18 12:00 159/83 H 05/02/18 09:26 05/02/18 09:25 05/02/18 09:06 148/77 H 05/02/18 08:00 148/77 H 107/52 L Admit Weight 231 lb 3.2 oz Weight 221 lb 2 oz 05/01/18 05/02/18 05/03/18 06:59 06:59 06:59 Intake Total 240 1200 620 Output Total 0 350 250 Balance 240 850 370 - Physical Examination General/Neuro: alert & oriented x3 Neck: no JVD present Lungs: CTA Heart: RRR Abdomen: NT/ND, soft - Telemetry Telemetry Rhythm: NSR - Labs Result Diagrams: 05/02/18 05:08 05/02/18 05:08 Troponin/CKMB CK-MB (CK-2) 0.5 ng/mL (0-6.6) 04/30/18 11:56 Troponin I 0.073 ng/mL (< 0.028) H 04/30/18 18:01 - Assessment/Plan CMY: stable. s/p AICD: nl. function. Hypotension: resolved. CKD: per nephrology.
[2018-05-03] MEDS: Polyethylene Glycol 3350 17 GM Packet PO SCH (05:05)
[2018-05-03 05:18] LABS: Anion Gap 15 mmol/L (10-20); BUN (Urea Nitrogen) 19 mg/dL (8.9-20.6); Calc. Creatinine Clearance 40 mL/min (70-130); Carbon Dioxide 19 mmol/L (22-29); Chloride 104 mmol/L (98-107); Estimated GFR-MDRD 20; Glucose 87 mg/dL (70-105); Potassium 3.6 mmol/L (3.5-5.1); Sodium 134 mmol/L (136-145)
[2018-05-03 05:33] LABS: #Lymphocytes 0.9 thou/uL (1.20-3.40); #Monocytes 0.3 thou/uL (0.11-0.59); #Neutrophils 3.2 thou/uL (1.40-6.50); %Eosinophils 1.1 % (0.0-10.0); %Lymphocytes 19.8 % (21.0-51.0); %Monocytes 6.9 % (0.0-10.0); %Neutrophils 72.2 % (42.0-75.0); Hemoglobin 8.4 g/dL (14.0-18.0); Mean Corpuscular HGB CONC 32.1 g/dL (32.0-36.0); Mean Corpuscular Hemoglobin 30.3 pg (27.0-31.0); Mean Corpuscular Volume 94.2 fL (78.0-98.0); Mean Platelet Volume 9.7 fL (7.4-10.4); Platelet Count 43 thou/uL (130-400); RBC Distribution Width 14.6 % (11.5-14.5); Red Blood Cell (RBC) Count 2.76 mill/uL (4.70-6.10); White Blood Cell (WBC) Count 4.4 thou/uL (4.8-10.8)
--- NOTE | 2018-05-03 09:27 | PRG ---
DATE OF SERVICE: 05/03/2018 SUBJECTIVE: Mr. Boo is a 47-year-old white male, with history of ESRD and initially admitted for syncopal episode. We felt that he was volume depleted. He was given empiric volume repletion. At the same time, I noted there was a slight spontaneous improvement of the renal function-creatinine was going down. I started him yesterday on salt poor albumin. Currently, the creatinine has further improved to a value of 3.26. Please note, the patient was admitted with a creatinine of 3.91. We will continue to hold off dialysis. No new complaints, except for the constipation. OBJECTIVE: VITAL SIGNS: Blood pressure is 146/67, heart rate 70, respiratory rate 20, temperature 97.9, pulse ox 95%. GENERAL: Awake, alert, comfortable, not in distress. SKIN: Adequate turgor. HEENT: He has a slightly pale conjunctivae. Anicteric sclerae. No neck mass. No carotid bruits. No JVD. CHEST: No deformities. LUNGS: Clear breath sounds. HEART: Normal sinus rhythm. No murmurs, gallops, or rubs. ABDOMEN: Globular, soft, nontender. No masses. EXTREMITIES: No edema. No deformities. MEDICATIONS: Medications of 05/03/2018, reviewed. LABORATORY DATA: Laboratories of 05/03/2018, sodium 135, potassium 3, chloride 103, carbon dioxide 23, BUN 13, creatinine 3.89. Labs of 05/03/2018, sodium 134, potassium 3.6, chloride 104, carbon dioxide 19, BUN 19, creatinine 3.26, GFR 20 mL/min, calcium 8.0. Hemoglobin 8.4. ASSESSMENT AND PLAN: 1. ESRD-there is no evidence of renal recovery. Continue to hold off dialysis. Most recent creatinine is 3.26 with continued albumin infusion. We will see where the renal function will plateau. 2. Anemia. Continuing iron supplementation and Epogen. 3. Constipation, p.r.n. enema. 4. Chronic thrombocytopenia. Stabilizing platelet count at 43,000. Overall agree with current management, recheck basic metabolic and CBC in a.m. Job ID: [id number] MTDD
[2018-05-03] MEDS: Carvedilol 6.25 MG TAB PO SCH ×2 (09:35→17:25)
[2018-05-03] MEDS: Amiodarone 200 MG TAB PO SCH ×2 (09:36→20:44)
[2018-05-03] MEDS: Aspirin Chewable 81 MG TAB PO SCH (09:36)
[2018-05-03] MEDS: Ferrous Sulfate 325 MG TAB PO SCH ×2 (09:36→16:36)
[2018-05-03] MEDS: Famotidine 20 MG TAB PO SCH (09:36)
[2018-05-03] MEDS: OXcarbazepine 300 MG TAB PO SCH ×2 (09:37→20:44)
[2018-05-03] MEDS: Colchicine 0.3 MG TAB PO SCH (09:37)
[2018-05-03] MEDS: Timolol 0.5% Ophth Soln 5 ml Bottle EA EYE SCH ×2 (09:38→20:43)
--- NOTE | 2018-05-03 10:31 | PDOC.CTH ---
Cardiology Progress Note - Subjective Pt. seen this AM. Resting comfortably. No overnight event. - Objective Vital Signs Temp Pulse Resp BP BP Pulse Ox 05/03/18 09:38 73 05/03/18 09:35 144/67 H 05/03/18 08:15 97.7 F 73 18 124/74 96 05/03/18 04:00 97.9 F 70 20 146/67 H 95 Admit Weight 231 lb 3.2 oz Weight 222 lb 5 oz 05/02/18 05/03/18 05/04/18 06:59 06:59 06:59 Intake Total 1200 1120 Output Total 350 250 Balance 850 870 - Physical Examination General/Neuro: alert & oriented x3 Neck: no JVD present Lungs: CTA Heart: RRR Abdomen: soft - Labs Result Diagrams: 05/03/18 04:41 05/03/18 04:41 Troponin/CKMB CK-MB (CK-2) 0.5 ng/mL (0-6.6) 04/30/18 11:56 Troponin I 0.073 ng/mL (< 0.028) H 04/30/18 18:01 - Assessment/Plan 1.CMY: stable. 2.s/p AICD: nl. function. 3.Hypotension: resolved. 4.CKD: per nephrology. 5. Antiphospolipid syndrome, chronic thrombocytopenia. Pt. is stable from a cardiac standpoint for discharge.
--- NOTE | 2018-05-03 14:17 | PDOC.PN ---
- Subjective Encounter Start Date: 05/03/18 Encounter Start Time: 14:13 Patient lying in bed this morning, he denies chest pain or shortness of breath, but reports feeling awful. He reports abdominal pain and not having bowel movement. He was given a series of bowel regimen and was able to have small bowel movement. Dr De La Rosa holding dialysis and monitoring BMP. He is recommending holding discharge for 1 more day. - Objective Resuscitation Status - Order Detail: 04/30/18 15:23 Resuscitation Status Routine Resuscitation Status: FULL: Full Resuscitation MAR Reviewed: Yes Vital Signs & Weight: Vital Signs (12 hours) Temp Pulse Resp BP BP Pulse Ox 05/03/18 12:32 98 F 68 18 110/54 L 97 05/03/18 09:38 73 05/03/18 09:35 144/67 H 05/03/18 08:15 97.7 F 73 18 124/74 124/74 96 05/03/18 04:00 97.9 F 70 20 146/67 H 95 Weight Admit Weight 231 lb 3.2 oz Weight 222 lb 5 oz I&O: 05/02/18 05/03/18 05/04/18 06:59 06:59 06:59 Intake Total 1200 1120 Output Total 350 250 Balance 850 870 Result Diagrams: 05/03/18 04:41 05/03/18 04:41 Phys Exam - Physical Examination mild pain HEENT: PERRLA, oral pharynx no lesions Neck: no nodes, supple, full ROM Respiratory: no wheezing, clear to auscultation bilateral Cardiovascular: RRR, no significant murmur Gastrointestinal: soft, positive bowel sounds Musculoskeletal: no edema, pulses present Neurological: non-focal, moves all 4 limbs Lymphatic: no nodes Psychiatric: normal affect, A&O x 3 Skin: normal turgor, cap refill <2 seconds Dx/Plan (1) Chronic atrial fibrillation with RVR Code(s): I48.2 - CHRONIC ATRIAL FIBRILLATION Status: Acute Comment: on Amiodarone.BB on hold due to Hypotension (2) Cardiomyopathy Code(s): I42.9 - CARDIOMYOPATHY, UNSPECIFIED Status: Chronic 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 (3) End stage renal disease on dialysis Code(s): N18.6 - END STAGE RENAL DISEASE; Z99.2 - DEPENDENCE ON RENAL DIALYSIS Status: Chronic (4) Gout Code(s): M10.9 - GOUT, UNSPECIFIED Status: Chronic Qualifiers: Gout site: unspecified site Gout etiology: unspecified cause (5) H/O tonic-clonic seizures Code(s): Z86.69 - PERSONAL HISTORY OF DIS OF THE NERVOUS SYS AND SENSE ORGANS Status: Chronic Comment: s/o Lobectomy in past - Plan cont current plan of care, PT/OT * Stable from cardiology standpoint * Nephrology following and recommend monitoring BMP in am * Hold discharge and continue bowel regimen * Continue current management * Likely discharged in am
[2018-05-04 07:29] LABS: #Eosinphils 0.1 thou/uL (0.0-0.7); #Monocytes 0.3 thou/uL (0.11-0.59); #Neutrophils 3.4 thou/uL (1.40-6.50); %Basophils 0.5 % (0.0-1.0); %Eosinophils 1.3 % (0.0-10.0); %Lymphocytes 20.3 % (21.0-51.0); %Monocytes 6.2 % (0.0-10.0); %Neutrophils 71.8 % (42.0-75.0); Hemoglobin 8.6 g/dL (14.0-18.0); Mean Corpuscular HGB CONC 32.5 g/dL (32.0-36.0); Mean Corpuscular Hemoglobin 30.5 pg (27.0-31.0); Mean Platelet Volume 10.4 fL (7.4-10.4); Platelet Count 46 thou/uL (130-400); RBC Distribution Width 14.8 % (11.5-14.5); White Blood Cell (WBC) Count 4.7 thou/uL (4.8-10.8)
[2018-05-04 07:47] LABS: Anion Gap 16 mmol/L (10-20); BUN (Urea Nitrogen) 20 mg/dL (8.9-20.6); Calc. Creatinine Clearance 43 mL/min (70-130); Calcium 7.9 mg/dL (7.8-10.44); Carbon Dioxide 19 mmol/L (22-29); Chloride 105 mmol/L (98-107); Estimated GFR-MDRD 22; Glucose 78 mg/dL (70-105); Potassium 4.4 mmol/L (3.5-5.1); Sodium 136 mmol/L (136-145)
[2018-05-04 08:29] VITALS: BP 110/66; TEMP 98.5
[2018-05-04] MEDS: OXcarbazepine 300 MG TAB PO SCH (08:31)
[2018-05-04] MEDS: Polyethylene Glycol 3350 17 GM Packet PO SCH (08:31)
[2018-05-04] MEDS: Famotidine 20 MG TAB PO SCH (08:32)
[2018-05-04] MEDS: Colchicine 0.3 MG TAB PO SCH (08:32)
[2018-05-04] MEDS: Aspirin Chewable 81 MG TAB PO SCH (08:32)
[2018-05-04] MEDS: Carvedilol 6.25 MG TAB PO SCH (08:32)
[2018-05-04] MEDS: Amiodarone 200 MG TAB PO SCH (08:32)
[2018-05-04] MEDS: Timolol 0.5% Ophth Soln 5 ml Bottle EA EYE SCH (08:32)
[2018-05-04] MEDS: Ferrous Sulfate 325 MG TAB PO SCH (08:33)
--- NOTE | 2018-05-04 08:41 | PDOC.CTH ---
Cardiology Progress Note - Subjective The pt seen and examined. No overnight events. No cardiac complaints. He is having cont. BM. - Objective Vital Signs Temp Pulse Resp BP BP BP Pulse Ox 05/04/18 08:32 78 110/66 05/04/18 08:26 98.5 F 78 16 110/66 110/66 93 L 05/04/18 04:25 98.1 F 77 16 121/58 L 92 L 05/03/18 20:43 72 Admit Weight 231 lb 3.2 oz Weight 222 lb 05/03/18 05/04/18 05/05/18 06:59 06:59 06:59 Intake Total 1120 890 Output Total 250 400 Balance 870 490 - Physical Examination General/Neuro: alert & oriented x3 Neck: no JVD present Lungs: CTA (diminished at bases) Heart: RRR Abdomen: soft Extremities: other: (No edema) - Telemetry Telemetry Rhythm: SR 80s - Labs Result Diagrams: 05/04/18 07:10 05/04/18 07:10 Troponin/CKMB CK-MB (CK-2) 0.5 ng/mL (0-6.6) 04/30/18 11:56 Troponin I 0.073 ng/mL (< 0.028) H 04/30/18 18:01 - Assessment/Plan 1. Non-ischemic CMY with s/p BiV AICD placement in 03/2018 - Stable. 2. Chronic combined HF - stable 3. Hypotension - resolved. Stable with Coreg 6.25mg; cont. to monitor 4. Afib/AFlutter with s/p DCCV in 03/2018 - remains in SR with Amiodarone and Coreg; On ASA 81mg qd 2/2 hx of Spontaneous perinephric retroperitoneal hematoma. 5. CKD with HD - per nephrology. 6. Antiphospolipid syndrome, chronic thrombocytopenia - 7. Seizure. MAR reviewed * From Cardiac standpoint, the pt is stable to d/c home. The pt will f/u with Dr Jefferson' office within 2-4 wks. Review of Systems - Review of Systems Constitutional: reports: no symptoms reported EENTM: reports: no symptoms reported Respiratory: reports: no symptoms reported Cardiac (ROS): reports: no symptoms reported ABD/GI: reports: no symptoms reported : reports: no symptoms reported
--- NOTE | 2018-05-04 09:52 | PRG ---
DATE OF SERVICE: 05/04/2018 SERVICE: Renal Medicine. SUBJECTIVE: Mr. Boo is a 47-year-old white male with ESRD and being followed by the [facility]al Service for maintenance hemodialysis. I noted on admission that his renal function established and spontaneously improved. The most recent creatinine now is 3.0. My plan is to probably hold off his dialysis indefinitely. We will follow him up at the [facility]. No other complaints today. No chest pain or shortness of breath. OBJECTIVE: VITAL SIGNS: Blood pressure is 110/66, heart rate 78, respiratory rate 16, temperature 98.5, and pulse ox 93%. GENERAL: Awake, alert, comfortable, not in distress. SKIN: Adequate turgor. HEENT: He has a slightly pale conjunctivae. Anicteric sclerae. No neck mass. No carotid bruits. No JVD. CHEST: No deformities. LUNGS: Clear breath sounds. No wheezing. No crackles. HEART: Normal sinus rhythm. No murmur. No gallops. No rubs. ABDOMEN: Globular, soft, nontender. No masses. EXTREMITIES: No edema. MEDICATIONS: Medications of May 04, 2018, was reviewed. LABORATORY DATA: Laboratory of May 04, 2018, white count 4.7, hemoglobin 8.6. Sodium 136, potassium 4.4, chloride 105, carbon dioxide 19, BUN 20, creatinine 3.03, GFR 22 mL/minute, calcium 7.9, platelet count is 46,000. ASSESSMENT AND PLAN: 1. End-stage renal disease-I think he may have some partial renal recovery. Dialysis will be placed on hold. I will monitor this patient at the [facility]al Clinic and if the renal function appears remains stable, we will schedule him for removal of his dialysis catheter. 2. Chronic anemia-we will defer to Hematology for his chronic Epogen shots. 3. Thrombocytopenia-we will refer to Hematology for further evaluation. Agree with plan of discharge. Job ID: [id number]
--- NOTE | 2018-05-07 18:13 | EKG ---
Test Reason : EMERGENCY Blood Pressure : / mmHG Vent. Rate : 060 BPM Atrial Rate : 060 BPM P-R Int : 000 ms QRS Dur : 136 ms QT Int : 514 ms P-R-T Axes : 000 005 -16 degrees QTc Int : 514 ms Electronic atrial pacemaker Non-specific intra-ventricular conduction block Abnormal ECG ST segment abnormalities in V4-V6 seen on previous EKG from 23-MAR-2018 Confirmed by LUIS PETERS [id number]), health editor MAL KHALIL ([id number]) on 05/07/2018 6:12:51 PM Referred By: Confirmed By:LUIS PETERS
== END 2018-05-04 11:11 | disposition home or self-care (01) ==
LOC: ERS 10:52 → 2SW 14:50 → 2NO 20:14
PROVIDERS: ADMIT Internal Medicine; ATTEND Internal Medicine
DX: I95.9 Hypotension, unspecified (principal); I13.2 Hypertensive heart and chronic kidney disease with heart failure and with stage 5 chronic kidney disease, or end stage renal disease; N18.6 End stage renal disease; I50.42 Chronic combined systolic (congestive) and diastolic (congestive) heart failure; D63.1 Anemia in chronic kidney disease; I48.92 Unspecified atrial flutter; D68.61 Antiphospholipid syndrome; D69.6 Thrombocytopenia, unspecified; F41.9 Anxiety disorder, unspecified; F32.9 Major depressive disorder, single episode, unspecified; E87.6 Hypokalemia; E87.1 Hypo-osmolality and hyponatremia; M10.9 Gout, unspecified; I48.2 Chronic atrial fibrillation; D61.818 Other pancytopenia; K59.00 Constipation, unspecified; I42.8 Other cardiomyopathies; E66.01 Morbid (severe) obesity due to excess calories; E46 Unspecified protein-calorie malnutrition; Z68.26 Body mass index [BMI] 26.0-26.9, adult; Z86.718 Personal history of other venous thrombosis and embolism; Z86.711 Personal history of pulmonary embolism; Z79.899 Other long term (current) drug therapy; Z88.8 Allergy status to other drugs, medicaments and biological substances; Z95.0 Presence of cardiac pacemaker; Z99.2 Dependence on renal dialysis
CPT/HCPCS: 71045; 80048 ×3; 80053 ×2; 82550; 82553; 83880; 84484 ×2; 85025 ×5; 85610; 85730; 93005; 94760; 96361 ×3; 96372; 96374; 97116; 97139 ×5; 97530 ×2; 99285; G0378 ×3; P9047; Q4081; 36415; 96360

== ENCOUNTER 2018-05-13 14:17 | Inpatient (IN) | payer MEDICARE ==
[2018-05-13] MEDS ORDERED: Ondansetron PF 4 MG/2 ML Vial ONE (14:57)
--- NOTE | 2018-05-13 15:20 | RAD ---
PORTABLE AP CHEST XRAY: DATE: 05/13/2018. HISTORY: Cough, nausea and vomiting. No dialysis for 2 weeks. COMPARISON: 04/30/2018. FINDINGS: Tunneled right internal jugular vein hemodialysis catheter remains in place and unchanged in position . Triple-lead left subclavian AICD device is also stable in position. Cardiac silhouette is magnifi ed by projection but does appear enlarged. There is pulmonary vascular congestion. There are increa sed interstitial densities bilaterally as well as patchy densities at the right lung base. Findings may be related to either asymmetric pulmonary edema or infectious process. No significant pleural ef fusion is present. No other interval change. IMPRESSION: Pulmonary vascular congestion and interstitial opacities with patchy densities at the right lung base . Findings may be related to pulmonary edema. However, infectious process is a possibility. Clinic al correlation is suggested and followup evaluation to resolution is recommended. POS: [facility]
[2018-05-13 15:23] LABS: Hemoglobin 8.6 g/dL (14.0-18.0); Mean Corpuscular HGB CONC 32.1 g/dL (32.0-36.0); Mean Corpuscular Hemoglobin 30.4 pg (27.0-31.0); Mean Corpuscular Volume 94.7 fL (78.0-98.0); Mean Platelet Volume 9.8 fL (7.4-10.4); Platelet Count 32 thou/uL (130-400); RBC Distribution Width 14.4 % (11.5-14.5); Red Blood Cell (RBC) Count 2.83 mill/uL (4.70-6.10); White Blood Cell (WBC) Count 6.3 thou/uL (4.8-10.8)
[2018-05-13 15:36] LABS: ALT (SGPT) Less than 7 U/L (8-55); AST (SGOT) 14 U/L (5-34); Alkaline Phosphatase 99 U/L (40-150); Anion Gap 17 mmol/L (10-20); BUN (Urea Nitrogen) 28 mg/dL (8.9-20.6); Bilirubin, Total 0.7 mg/dL (0.2-1.2); Calc. Creatinine Clearance 0 mL/min (70-130); Calcium 8.3 mg/dL (7.8-10.44); Carbon Dioxide 18 mmol/L (22-29); Chloride 95 mmol/L (98-107); Estimated GFR-MDRD 23; Globulin 3.1 g/dL (2.4-3.5); Glucose 92 mg/dL (70-105); Lipase 35 U/L (8-78); Potassium 4.7 mmol/L (3.5-5.1); Protein, Total 6.1 g/dL (6.0-8.3); Sodium 125 mmol/L (136-145)
[2018-05-13 15:47] LABS: #Lymphocytes 0.9 thou/uL (1.20-3.40); #Monocytes 0.6 thou/uL (0.11-0.59); #Neutrophils 4.8 thou/uL (1.40-6.50); %Basophils 0.1 % (0.0-1.0); %Eosinophils 0.3 % (0.0-10.0); %Lymphocytes 14.1 % (21.0-51.0); %Monocytes 9.6 % (0.0-10.0); %Neutrophils 75.9 % (42.0-75.0); Anisocytosis SLIGHT = 6-15 cells (100X) (0-5/hpf); Hypochromia SLIGHT = 6-15 cells (100X) (0-5/hpf); MDiff Complete? YES; Platelet Morphology Comment Appears Decreased
[2018-05-13 16:24] LABS: CKMB 1.1 ng/mL (0-6.6)
[2018-05-13 19:42] LABS: CKMB 1.1 ng/mL (0-6.6)
[2018-05-13] MEDS ORDERED: Ondansetron ODT 4 MG TAB PO PRN (20:04)
[2018-05-13 21:49] LABS: Critical Call Chem Troponin I RESULT DECREASING
[2018-05-13] MEDS: OXcarbazepine 300 MG TAB PO SCH (22:16)
[2018-05-13] MEDS: Amiodarone 200 MG TAB PO SCH (22:17)
[2018-05-14] MEDS: Acetaminophen 325 MG TAB PO PRN (00:49)
[2018-05-14] MEDS: Benzonatate 100 MG CAP PO PRN ×3 (00:50→21:09)
--- NOTE | 2018-05-14 04:21 | HP ---
PRIMARY CARE DOCTOR: Rossana Blanc MD CODE STATUS: Full code. TIME OF EVALUATION: 7:40 p.m. CHIEF COMPLAINT: Cough. HISTORY OF PRESENT ILLNESS: This is a 47-year-old male patient with past medical history of end-stage renal disease, on hemodialysis; although, the patient reportedly has not got any hemodialysis in the past few weeks. His kidneys are improving. Also, the patient has a history of DVTs, PEs, hypertension, gout, mitral valve leak, AFib, brain tumor. Came to the hospital after having cough that was not improving, persistent, no clear triggers, no alleviating factors. Symptoms were reported as moderate. Has been getting worse for the past three days associated with nausea. REVIEW OF SYSTEMS: CONSTITUTIONAL: No fever or chills. The patient reported generalized weakness. RESPIRATORY: Cough. No sputum production, shortness of breath. CARDIOVASCULAR: No chest pain or palpitation. GASTROINTESTINAL: The patient has nausea and vomiting. No diarrhea or abdominal pain. FABRICATION LEAD: No dizziness, headache, or feeling lightheaded. GENITOURINARY: No burning on urination. EXTREMITIES: No leg swelling. All other systems were reviewed and negative except for the findings mentioned above. PAST MEDICAL HISTORY: As mentioned in the HPI. SURGICAL HISTORY: Heart catheterization, brain surgery for seizures, IVC filter. PSYCH HISTORY: Depression. FAMILY HISTORY: Reviewed and non contributory to current presentation. SOCIAL HISTORY: No alcohol, no drugs. No smoking history. KNOWN ALLERGIES: Phenytoin and Versed. REPORTED MEDICATIONS: 1. Ferrous sulfate. 2. Oxcarbazepine. 3. Amiodarone. 4. Carvedilol. 5. Megestrol. PHYSICAL EXAMINATION: VITAL SIGNS: On presentation, blood pressure 203/98 with a heart rate of 87, respiratory rate was 17, temperature 98.3. Pain was 0/10. Oxygen saturation was 95% on 3 L. Blood pressure improved to systolic 135 and diastolic 84. GENERAL APPEARANCE: The patient is alert, oriented, not in acute distress. HEENT: Eyes, normal conjunctiva. Moist oral mucosa. Anicteric. No JVD. The patient has PermCath on the right IJ. RESPIRATORY: Bilateral air entry. No rales. No wheezes. Symmetric expansion. CARDIOVASCULAR: Normal rate, regular rhythm. No murmurs, no gallops. The patient has significant bilateral leg edema. ABDOMEN: Soft. Normal bowel sounds. MUSCULOSKELETAL: Baseline range of motion and strength. No tenderness. SKIN: Warm, intact. No pallor. No rash. No redness. Peripheral pulses are present. Capillary refill seems to be intact. NEURO: No evidence of any new focal weakness. Baseline speech. Cranial nerves seem to be intact. PSYCH: The patient is in good mood. No anxiety. Optimal judgment. DIAGNOSTIC STUDIES: EKG; normal sinus rhythm at the rate of 86, AK 172, QRS 134 , QT corrected 497. Chest x-ray; pulmonary vascular congestion, interstitial opacities with patchy densities in the right lung base. Findings may be related to pulmonary edema;However, infectious process is a possibility. Clinical correlation is suggested and followup evaluation on resolution is recommended. LABORATORY DATA: Labs were reviewed. The patient has white count of 6.3, hemoglobin 9.6, MCV 94.7, platelet count 32. Chemistry; sodium 125, potassium 4.7, chloride 95, carbon dioxide 18, anion gap 17, BUN 28, creatinine 2.90. Previous creatinines were in the range of 3.6, so he is much improved. GFR 23. Glucose 92. Calcium 8.3, total bilirubin 0.7, AST 14, ALT less than 7. Troponin 0.418, second one 0.482, the third one 0.465. Albumin 3.0, lipase 35. ASSESSMENT AND PLAN: The patient will be placed in the hospital with following medical problems: 1. [id number] myocardial infarction. The patient has troponin in the range of 0.4. We will consult Cardiology. We will follow recommendations. 2. Fluid overload. The patient has significant bilateral leg edema and also some findings of pulmonary edema on the chest x-ray. The patient is on hemodialysis. Also, in the past few weeks, the patient has been without dialysis since he has been improving reportedly. We will defer to Nephrology if needed consultation for any further management, especially in the event if the patient needed any cardiac procedure. 3. Chronic kidney disease. The patient has been recovering. No need for any hemodialysis in the past couple of weeks. Creatinine is improved, might need Nephrology evaluation as mentioned above if any procedure is needed. 4. Uncontrolled hypertension on presentation with systolic blood pressure of 203 , this has improved. Home medications will be reconciled, monitor, we will adjust as needed. 5. History of atrial fibrillation: This problem is controlled, the patient is in sinus rhythm. We will reconcile home medications, adjust as needed. 6. Deep venous thrombosis prophylaxis. Job ID: [id number] MTDD
[2018-05-14 05:41] LABS: #Lymphocytes 0.8 thou/uL (1.20-3.40); #Monocytes 0.5 thou/uL (0.11-0.59); #Neutrophils 3.9 thou/uL (1.40-6.50); %Basophils 0.3 % (0.0-1.0); %Eosinophils 0.5 % (0.0-10.0); %Lymphocytes 15.5 % (21.0-51.0); %Monocytes 8.7 % (0.0-10.0); Hemoglobin 7.5 g/dL (14.0-18.0); Mean Corpuscular HGB CONC 32.9 g/dL (32.0-36.0); Mean Corpuscular Hemoglobin 30.9 pg (27.0-31.0); Mean Corpuscular Volume 94.1 fL (78.0-98.0); Mean Platelet Volume 10.3 fL (7.4-10.4); Platelet Count 27 thou/uL (130-400); RBC Distribution Width 14.4 % (11.5-14.5); Red Blood Cell (RBC) Count 2.41 mill/uL (4.70-6.10); White Blood Cell (WBC) Count 5.2 thou/uL (4.8-10.8)
[2018-05-14 06:02] LABS: Anion Gap 16 mmol/L (10-20); BUN (Urea Nitrogen) 30 mg/dL (8.9-20.6); Calc. Creatinine Clearance 49 mL/min (70-130); Carbon Dioxide 18 mmol/L (22-29); Chloride 97 mmol/L (98-107); Estimated GFR-MDRD 23; Glucose 88 mg/dL (70-105); Potassium 4.5 mmol/L (3.5-5.1); Sodium 126 mmol/L (136-145)
[2018-05-14] MEDS: Carvedilol 6.25 MG TAB PO SCH ×2 (08:46→16:32)
[2018-05-14] MEDS: Megestrol Acetate 40 MG TAB PO SCH (08:47)
[2018-05-14] MEDS: Aspirin Chewable 81 MG TAB PO SCH (08:47)
[2018-05-14] MEDS: Amiodarone 200 MG TAB PO SCH ×2 (08:47→20:55)
[2018-05-14] MEDS: Ferrous Sulfate 325 MG TAB PO SCH ×2 (08:48→16:44)
[2018-05-14] MEDS ORDERED: Enoxaparin Sodium 30 MG/0.3 ML SYRINGE SC SCH (09:00)
[2018-05-14] MEDS ORDERED: Prevnar 13-Val Conj/PF 0.5 ML SYRINGE IM ONE (09:00)
[2018-05-14] MEDS ORDERED: Heparin 10,000 UNITS/ 10 ML VIAL ONE (09:10)
[2018-05-14] MEDS: Ondansetron PF 4 MG/2 ML Vial IVP PRN (09:13)
[2018-05-14] MEDS ORDERED: Ipratropium Bromide 2.5 ml Neb NEB PRN (09:45)
[2018-05-14] MEDS ORDERED: [UNRECOGNIZED DRUG - OTHER] IVPB PRN (09:47)
[2018-05-14] MEDS ORDERED: VANC IVPB PRN (09:47)
[2018-05-14] MEDS ORDERED: methylPREDNISolone Sod Succ 40 MG VIAL IVP SCH ×2 (10:00→10:15)
[2018-05-14] MEDS ORDERED: cefTRIAXone\\ROCEPHIN 1 GM in Sodium Chloride 0.9% 100 ML IVPB SCH (10:00)
[2018-05-14] MEDS ORDERED: Bacteriostatic Water 30 ML VIAL FS PRN (10:02)
[2018-05-14] MEDS: OXcarbazepine 300 MG TAB PO SCH ×2 (10:19→20:56)
[2018-05-14] MEDS ORDERED: Albumin 25% 25 GM/100 ML BOT IVPB ONE (10:29)
[2018-05-14] MEDS ORDERED: Furosemide 40 MG/4 ML VIAL SLOW IVP SCH ×2 (10:30→23:45)
[2018-05-14] MEDS ORDERED: Vancomycin HCl 1.75 GM in Sodium Chloride 0.9% 500 ML IVPB SCH (10:45)
[2018-05-14 10:48] LABS: Hemoglobin 8.8 g/dL (14.0-18.0)
[2018-05-14] MEDS ORDERED: Vancomycin HCl 1.25 GM in Sodium Chloride 0.9% 250 ML 250 ML IVPB SCH (11:00)
[2018-05-14] MEDS ORDERED: Piperacillin/Tazobactam 3.375 GM in Sodium Chloride 0.9% 100 ML IVPB SCH (12:00)
--- NOTE | 2018-05-14 13:31 | CON ---
DATE OF CONSULTATION: 05/14/2018 REASON FOR CONSULTATION: Possible volume overload. CHIEF COMPLAINT: Intractable cough and vomiting since 3 days. HISTORY OF PRESENT ILLNESS: A 47-year-old male with multiple comorbidities including end-stage renal disease, on hemodialysis, who was recently about 2 weeks ago discontinued on dialysis due to partial renal recovery. The patient has been doing well since discontinuation of dialytic treatment until about 3 days ago when he suddenly developed cough associated with shortness of breath and vomiting. Symptoms got worse, associated with shortness of breath since presentation to the emergency room, from where he was admitted. Chest x-ray showed bilateral infiltrates, which are concerning for pulmonary congestion. The patient denied fever, palpitation, change in bowel habits, dysuria or hematuria. He continues to make good amount of urine and denied worsening leg swelling. PAST MEDICAL HISTORY: 1. Mitral regurgitation. 2. Atrial fibrillation, on amiodarone. 3. History of brain tumor. 4. Prior history of DVT and PE. 5. End-stage renal disease. 6. Gout. 7. Of note, the patient denied sick contacts. PHYSICAL EXAMINATION: VITAL SIGNS: BP 124/61, temperature 98.3, pulse 92, respiratory rate 20, and SpO2 88%. GENERAL: Chronically ill-looking, middle-aged male in mild respiratory distress. Afebrile, anicteric, and acyanotic. HEENT: Normocephalic and atraumatic. Pupils are equal and reacting to light. No JVD was appreciated. NECK: Supple with full range of motion. No JVD or masses are appreciated. RESPIRATORY: Fair air entry bilaterally with bibasilar crackles and some transmitted sounds. Air entry is decreased at both bases. Work of breathing is increased. CARDIOVASCULAR: Regular rhythm and rate with normal heart sounds 1 and 2. GI: Abdomen is full, soft, nontender, and nondistended with normal bowel sounds. MUSCULOSKELETAL/EXTREMITIES: Mild to moderate bilateral leg edema noted. No erythema or tenderness. NEUROLOGIC: Conscious, alert, and oriented with appropriate mental status. Memory lapse is noted. Cranial nerves 2 through 12 are intact. DIAGNOSTIC DATA: 1. CBC showed WBC count of 5.2, hemoglobin of 8.8, and platelet of 27. The patient has chronic thrombocytopenia ranging from 20s to 80s in the last several years. 2. BMP showed sodium 126, potassium 4.5, chloride 97, CO2 18, BUN 30, creatinine 2.9, glucose 88, and calcium 8.0. Note that creatinine is stable at 2.9 and this is improved from a peak of 6.0. Also, the patient has been having intermittent hyponatremia dating back to 2012. 3. Troponin is elevated at 0.465 and this is new. 4. Chest x-ray performed on May 13 showed pulmonary vascular congestion as well as interstitial opacities with patchy densities at the right lung base. Findings may be related to pulmonary edema, however, infectious process is a possibility. There was no prior chest x-ray, but CT scan performed in 2017 showed bilateral infiltrate as well. ASSESSMENT AND PLAN: 1. End-stage renal disease: The patient has been on hemodialysis, but this was discontinued about 2 weeks ago due to improvement in renal function. The patient has continued to make adequate urine and denied worsening leg swelling. Creatinine actually is above the best, though the patient has lost some weight. There is no immediate need for dialytic treatment at this time. 2. Bilateral chest infiltrates: This most likely is multifactorial with pulmonary congestion from fluid overload with superimposed patchy infiltrates from presumed viral infection. Bacterial pneumonia cannot be ruled out, but absence of fever next is unlikely. I agree with trial of diuretic therapy, which will help the patient's volume status. 3. Mild volume overload: We will start Lasix IV and monitor renal function. 4. Metabolic acidosis: Due to chronic kidney disease. We will start sodium bicarbonate. 5. Hyponatremia: Etiology is unclear, but inappropriate ADH secretion is a concern given history of brain surgery. We will get urine osmolality. 6. Chronic anemia: Most likely due to chronic kidney disease. The patient will benefit from erythropoietin stimulating agent. This has been deferred to the desk lieutenant since the patient is normal on dialysis. 7. Non-ST elevation myocardial infarction: Given elevated troponin. Defer to primary attending. We will monitor renal function with diuretic therapy and follow along with you. Job ID: [id number]
[2018-05-14] MEDS: Furosemide 80 MG TAB PO SCH (15:22)
--- NOTE | 2018-05-14 15:44 | PDOC.PN ---
- Subjective Encounter Start Date: 05/14/18 Encounter Start Time: 09:00 Subjective: pt up in bed very sob - Objective Resuscitation Status - Order Detail: 05/13/18 20:04 Resuscitation Status Routine Resuscitation Status: FULL: Full Resuscitation Vital Signs & Weight: Vital Signs (12 hours) Temp Pulse Resp BP BP Pulse Ox 05/14/18 12:00 99.6 F 92 18 130/70 92 L 05/14/18 08:46 124/61 05/14/18 07:00 98.3 F 92 20 124/61 88 L Weight Weight 240 lb 6 oz I&O: 05/13/18 05/14/18 05/15/18 06:59 06:59 06:59 Intake Total 720 Balance 720 Result Diagrams: 05/14/18 10:16 05/14/18 04:36 Phys Exam - Physical Examination Neck: no nodes, no JVD, supple, full ROM Respiratory: clear to auscultation bilateral Cardiovascular: RRR, no significant murmur, no rub, gallop, irregular Gastrointestinal: soft, non-tender, no distention, positive bowel sounds Musculoskeletal: no edema, pulses present, edema present Dx/Plan (1) SOB (shortness of breath) Code(s): R06.02 - SHORTNESS OF BREATH Status: Acute (2) PNA (pneumonia) Code(s): J18.9 - PNEUMONIA, UNSPECIFIED ORGANISM Status: Resolved (3) CAD (coronary artery disease) Code(s): I25.10 - ATHSCL HEART DISEASE OF [place] CORONARY ARTERY W/O ANG PCTRS Status: Acute (4) CKD (chronic kidney disease) Code(s): N18.9 - CHRONIC KIDNEY DISEASE, UNSPECIFIED Status: Acute - Plan pt's lung exam is clear but pt is very sob -: will give lasix x1, consult nephro. will also put pt on abx -: rvp pending. will also start pt on neb tx. -: bnp ordered. elevated trops. cardio consulted -: pt has ivc filter for hx of PE * . Review of Systems - Review of Systems Respiratory: Shortness of Breath Cardiovascular: negative: chest pain, palpitations, orthopnea, paroxysmal nocturnal dyspnea, edema, light headedness, other Gastrointestinal: negative: Nausea, Vomiting, Abdominal Pain, Diarrhea, Constipation, Melena, Hematochezia, Other - Medications/Allergies Allergies/Adverse Reactions: Allergies Allergy/AdvReac Type Severity Reaction Status Date / Time phenytoin sodium Allergy Severe Emesis Verified 05/01/18 05:56 [From Dilantin] phenytoin sodium extended Allergy Severe Emesis Verified 05/01/18 05:56 [From Dilantin] midazolam HCl [From Versed] Allergy Intermediate swelling Verified 05/01/18 05: 56 Medications: Current Medications Acetaminophen (Tylenol) 650 mg PO Q4H PRN PRN Reason: Headache/Fever/Mild Pain (1-3) Last Admin: 05/14/18 00:49 Dose: 650 mg Amiodarone HCl (Cordarone) 200 mg PO BID [facility] Last Admin: 05/14/18 08:47 Dose: 200 mg Aspirin (Aspirin Chewable) 81 mg PO DAILY [facility] Last Admin: 05/14/18 08:47 Dose: 81 mg Benzonatate (Tessalon) 100 mg PO Q6H PRN PRN Reason: Cough Last Admin: 05/14/18 08:46 Dose: 100 mg Carvedilol (Coreg) 6.25 mg PO BID[facility] Last Admin: 05/14/18 08:46 Dose: 6.25 mg Ferrous Sulfate (Feosol) 325 mg PO BID-[facility] Last Admin: 05/14/18 08:48 Dose: Not Given Furosemide (Lasix) 80 mg PO 0900,1400 [facility] Last Admin: 05/14/18 15:22 Dose: Not Given Piperacillin Sod/Tazobactam (Sod 3.375 gm/ Sodium Chloride) 100 mls @ 200 mls/ hr IVPB BID [facility] Ipratropium Pateros (Atrovent) 2.5 ml NEB Q6H PRN PRN Reason: SOB &/or Wheezing Megestrol Acetate (Megace) 40 mg PO DAILY [facility] Last Admin: 05/14/18 08:47 Dose: 40 mg Miscellaneous Medication (Pharmacy To Dose) 1 each IVPB DAILYPRN PRN PRN Reason: LABS Ondansetron HCl (Zofran Odt) 4 mg PO Q6H PRN PRN Reason: Nausea/Vomiting Ondansetron HCl (Zofran) 4 mg IVP Q6H PRN PRN Reason: Nausea/Vomiting Last Admin: 05/14/18 09:13 Dose: 4 mg Oxcarbazepine (Trileptal) 600 mg PO BID [facility] Last Admin: 05/14/18 10:19 Dose: 600 mg Sterile Water (Bacteriostatic Water) 1 ml FS PRN PRN PRN Reason: RECONSTITUTION Last Admin: 05/14/18 10:21 Dose: 1 ml
--- NOTE | 2018-05-14 16:21 | CT ---
NONCONTRAST CT HEAD: Date: 05/14/18 HISTORY: Blurry vision in both eyes. History of brain surgery. COMPARISON: 03/28/15. FINDINGS: Stable right-sided craniotomy defect is again seen and unchanged. Septal malacia and postoperative ch anges involving the right anterior temporal lobe and middle cranial fossa are again seen and unchange d. There is no evidence of an acute cortical infarction, hemorrhage, mass effect, or midline shift. L ow density focus is present in the right cerebellar hemisphere, likely related to remote infarction. Ventricular system is normal in size, shape, and position, aside from mild ex vacuo dilatation tempor al horn right lateral ventricle. There has been no interval change from prior exam. IMPRESSION: 1. No acute intracranial abnormality is demonstrated. 2. Stable postoperative changes. POS: AMARIS
[2018-05-14 16:31] LABS: Hemoglobin 7.1 g/dL (14.0-18.0)
--- NOTE | 2018-05-14 19:08 | CON ---
DATE OF CONSULTATION: 05/14/2018 INDICATION FOR CONSULTATION: A 47-year-old gentleman with an extensive past medical history, which includes cardiomyopathy, status post AICD implant; history of atrial fibrillation, flutter, and ablation, who presented again with shortness of breath, coughing and what appears to be congestive heart failure with some pulmonary congestion on chest x-ray. He had been on hemodialysis in the past with end- stage renal disease, but recently his renal function had improved. He was no longer on hemodialysis. He presented this time to the hospital after he had been complaining of several nights of not being able to lie down to sleep and continued coughing and he actually presented to the hospital due to continued cough, which he was unable to control. He denied any chest pain. He had no significant shortness of breath. He has had no significant lower extremity edema. At this time, he is comfortable. He did have some problems early. He still had blurred vision and I believe a CT scan has been performed. PAST MEDICAL HISTORY: Significant for cardiomyopathy, AICD implant, atrial fibrillation or flutter, which he underwent ablation. He has also antiphospholipid syndrome. He has had DVTs and PEs in the past. He has had an IVC filter placed. He has had a spontaneous retroperitoneal bleed with left renal hemorrhage and is unable to take anticoagulation. He has chronic thrombocytopenia. He has had a brain tumor removed. He has had history of seizure disorders. ALLERGIES: HE IS ALLERGIC TO DILANTIN AND VERSED. MEDICATIONS: His present medications. Presently, he is taking Rocephin for basilar pneumonia. He is also on piperacillin, vancomycin, and amiodarone which he is taking 200 mg b.i.d., aspirin 81 mg a day, Coreg 6.25 mg b.i.d., Lovenox on a therapeutic dose. We will discontinue this medication due to his previous bleeding. He is on ferrous sulfate, Megace, methylprednisolone, Trileptal, Tylenol, Tessalon Perles. He is on Atrovent also inhaler, Zofran, and other p.r.n. medications. REVIEW OF SYSTEMS: A 12-point review of systems unremarkable except as noted in the history of present illness. He had no new complaints. He is actually very deconditioned after multiple hospitalizations. PHYSICAL EXAMINATION: GENERAL: Reveals a middle-aged gentleman, who is in no acute distress at this time. VITAL SIGNS: Blood pressure is 114/64, heart rate is in 90s and shows a sinus rhythm, respiratory rate 18, and his temperature was 99.6, early was 98.3. HEENT: Shows the head to be normocephalic and atraumatic. Carotid pulses are present. I did not hear any significant bruits. CHEST: Has bilateral rales noted, at least custodial up to very fine. CARDIOVASCULAR: Reveals a regular rate and rhythm at this time. I do not hear any significant murmurs, heaves, thrills, bruits, or rubs. ABDOMEN: Soft and nontender with positive bowel sounds. No organomegaly or masses were noted. Femoral pulses are present. EXTREMITIES: Showed no clubbing or cyanosis. He did have mild lower extremity edema. He also has palpable pedal pulses. NEUROLOGIC: He appears to be stable at this time. SKIN: Warm and dry. LABORATORY DATA: Shows a WBC of 5.2, hemoglobin was 7.5, platelet count 27,000, hematocrit was 22.7. His sodium was 126, potassium 4.5, creatinine 2.9. Blood sugar was 88. His BNP was elevated at 3986. Cardiac enzymes are actually abnormal, but he has often had abnormal enzymes in the past, would not be unusual with his cardiomyopathy and his CHF exacerbation. His troponin I is 0.4 and has remained at 0.4 throughout three evaluations. IMPRESSION: 1. Elderly gentleman with congestive heart failure exacerbation due to chronic kidney disease as well as cardiomyopathy. His last ejection fraction did show some improvement. He did undergo an AICD implant. However, in the past, he has had a cardiomyopathy for at least 20 years. This appears to be relatively stable. We will continue. We will see if we can diurese the patient gently, but his creatinine is 2.9. He may need to eventually go back on dialysis in order to control the fluid. He will need to be volume restricted. His BNP was elevated at almost 4000. I did not believe this is ischemic in nature despite having slight elevation of the cardiac enzymes. His EKG does not reflect that is any significant coronary disease and he denies any chest pain. 2. History of antiphospholipid syndrome with a spontaneous bleed with a renal hemorrhage and also retroperitoneal bleeding. He is not a candidate for oral anticoagulation. He does have a history also of thrombocytopenia with a platelet count of 27,000. We will need to be followed very carefully. 3. History of chronic anemia. His hemoglobin is 7.5, most likely is a combination of his thrombocytopenia or his antiphospholipid syndrome as well as his renal insufficiency. 4. History of cardiomyopathy. The last echocardiogram had showed some improvement in the left ventricular systolic function. His last echocardiogram was in January 2018, at which time ejection fraction was felt to be about 40% to 45%. He did have 1/3 mild diastolic dysfunction. He also has left ventricular hypertrophy with left ventricular dilatation. 5. Seizure disorder. He has had no recent seizures since he has been in the hospital. 6. Chronic kidney disease with acute on chronic. He will be followed by the gatekeeper. 7. History of atrial fibrillation. He remains in sinus rhythm after he underwent cardioversion for his atrial fibrillation and also I believe he had a flutter ablation. 8. Status post AICD implant. This also appears to be functioning normally. At this time, we will try to gently diurese the patient and hopefully his renal function remains stable from a cardiac standpoint. Otherwise, he appears to be doing relatively well. I will be more than happy to continue to follow the patient with you. We will need also to address his chronic coughing as this seems to be his most significant problem at this time. Hopefully, he will be stabilized with medical management. Job ID: [id number] MTDD
[2018-05-14 20:42] LABS: Hemoglobin 6.8 g/dL (14.0-18.0)
[2018-05-14] MEDS: Piperacillin/Tazobactam 3.375 GM in Sodium Chloride 0.9% 100 ML IVPB SCH (20:59)
[2018-05-14 22:02] LABS: Hemoglobin 6.8 g/dL (14.0-18.0)
[2018-05-14] MEDS ORDERED: Furosemide 20 MG/2 ML VIAL SLOW IVP SCH (23:59)
[2018-05-15] MEDS: Ondansetron PF 4 MG/2 ML Vial IVP PRN ×2 (04:45→11:32)
[2018-05-15 05:32] LABS: #Lymphocytes 0.7 thou/uL (1.20-3.40); #Monocytes 0.6 thou/uL (0.11-0.59); %Basophils 0.2 % (0.0-1.0); %Eosinophils 0.2 % (0.0-10.0); %Lymphocytes 7.1 % (21.0-51.0); %Monocytes 5.3 % (0.0-10.0); %Neutrophils 87.1 % (42.0-75.0); Hemoglobin 7.5 g/dL (14.0-18.0); Mean Corpuscular HGB CONC 32.5 g/dL (32.0-36.0); Mean Corpuscular Hemoglobin 30.8 pg (27.0-31.0); Mean Corpuscular Volume 94.7 fL (78.0-98.0); Mean Platelet Volume 9.9 fL (7.4-10.4); Platelet Count 47 thou/uL (130-400); RBC Distribution Width 14.2 % (11.5-14.5); Red Blood Cell (RBC) Count 2.42 mill/uL (4.70-6.10); White Blood Cell (WBC) Count 10.3 thou/uL (4.8-10.8)
[2018-05-15 05:41] LABS: Anion Gap 15 mmol/L (10-20); BUN (Urea Nitrogen) 36 mg/dL (8.9-20.6); BUN/Creatinine Ratio 11.22; Calc. Creatinine Clearance 44 mL/min (70-130); Calcium 8.5 mg/dL (7.8-10.44); Carbon Dioxide 20 mmol/L (22-29); Chloride 98 mmol/L (98-107); Estimated GFR-MDRD 21; Glucose 95 mg/dL (70-105); Phosphorus 3.6 mg/dL (2.3-4.7); Potassium 4.7 mmol/L (3.5-5.1); Sodium 128 mmol/L (136-145)
--- NOTE | 2018-05-15 08:04 | RAD ---
PORTABLE AP CHEST: Date: 05/14/18 HISTORY: Shortness of breath. COMPARISON: 05/13/18. FINDINGS: A triple lead left subclavian AICD device and right internal jugular vein hemodialysis catheters kerri in in place and unchanged in position. There are increased interstitial and patchy densities within t he lungs bilaterally, greater at the lung bases and in the right upper lung zone, which given differe nces in technique do appear increased when compared to the prior study. There is evidence of pulmonar y vascular congestion. Cardiac silhouette is magnified by projection, but again appears enlarged. No other interval change. IMPRESSION: Asymmetric increased interstitial and patchy densities within the lungs bilaterally, with cardiomegal y and pulmonary vascular congestion. Findings may be related to CHF and associated asymmetric pulmona ry edema. However, superimposed infectious process/atypical infectious process cannot be entirely exc luded. Follow-up to resolution is recommended. POS: AMARIS
[2018-05-15] MEDS: Piperacillin/Tazobactam 3.375 GM in Sodium Chloride 0.9% 100 ML IVPB SCH ×2 (08:25→20:19)
[2018-05-15] MEDS: Carvedilol 6.25 MG TAB PO SCH ×2 (08:25→17:33)
[2018-05-15] MEDS: Amiodarone 200 MG TAB PO SCH ×2 (08:26→20:19)
[2018-05-15] MEDS: Ferrous Sulfate 325 MG TAB PO SCH ×2 (08:26→17:23)
[2018-05-15] MEDS: Aspirin Chewable 81 MG TAB PO SCH (08:26)
[2018-05-15] MEDS: Furosemide 80 MG TAB PO SCH ×2 (08:26→17:21)
[2018-05-15] MEDS: OXcarbazepine 300 MG TAB PO SCH ×2 (08:55→20:51)
[2018-05-15] MEDS: Megestrol Acetate 40 MG TAB PO SCH (08:55)
[2018-05-15 10:11] LABS: Vancomycin, Random 18.8 ug/mL (See Comment)
[2018-05-15] MEDS ORDERED: Furosemide 100 MG/10 ML VIAL SLOW IVP SCH (12:00)
--- NOTE | 2018-05-15 13:09 | RAD ---
PORTABLE AP CHEST: Date: 05/15/18 HISTORY: Edema. COMPARISON: 05/14/18. FINDINGS: A triple lead left subclavian AICD device and right internal jugular vein hemodialysis catheter remai n in place and unchanged in position. Cardiac silhouette is enlarged. There are increased interstitia l and alveolar opacities within the lungs bilaterally, greater on the right, with distribution overal l similar to the prior study. Mild pulmonary vascular congestion is present. Findings are likely rela maru to asymmetric pulmonary edema and probable mild CHF. Infectious process cannot be entirely exclud ed. No other interval change. IMPRESSION: Stable chest with increased interstitial and alveolar opacities bilaterally, greater on the right, wh ich as noted above may be related to asymmetric pulmonary edema with mild CHF. Clinical correlation s uggested. POS: AMARIS
[2018-05-15 13:50] LABS: HBSAB Concentration 2.61 mIU/mL; HBSAg Index 0.21 S/CO (0-0.99); Hep B Surf AB Non-Reactive (NonReactive); Hep B Surf Ag Non-Reactive S/CO (NonReactive)
[2018-05-15] MEDS ORDERED: Vancomycin HCl 1 GM in Premix Bag 1 BAG IVPB SCH (14:00)
[2018-05-15] MEDS ORDERED: Vancomycin HCl 1.5 GM in Sodium Chloride 0.9% 250 ML 300 ML IVPB SCH (14:00)
[2018-05-15] MEDS ORDERED: HOLD VANCOMYCIN FOR LEVEL >20 FS SCH (14:00)
[2018-05-15] MEDS ORDERED: Vancomycin HCl 750 MG in Sodium Chloride 0.9% 250 ML 250 ML IVPB SCH (14:00)
[2018-05-15] MEDS ORDERED: Vancomycin HCl 1.25 GM in Sodium Chloride 0.9% 250 ML 250 ML IVPB SCH (14:00)
--- NOTE | 2018-05-15 16:06 | PDOC.PN ---
- Subjective Encounter Start Date: 05/15/18 Encounter Start Time: 10:15 Subjective: pt up in bed drowsy but arousable -: pt got sob and was transferred to icu last night - Objective Resuscitation Status - Order Detail: 05/13/18 20:04 Resuscitation Status Routine Resuscitation Status: FULL: Full Resuscitation Vital Signs & Weight: Vital Signs (12 hours) Temp Pulse Resp BP Pulse Ox 05/15/18 15:00 98.5 F 05/15/18 13:16 76 20 95 05/15/18 12:45 78 22 H 100 05/15/18 12:00 98.7 F 05/15/18 08:25 133/88 05/15/18 08:00 100 F H 94 L 05/15/18 06:00 99.2 F Weight Weight 240 lb Most Recent Monitor Data Heart Rate from ECG 80 NIBP 121/62 NIBP BP-Mean 81 Respiration from ECG 22 SpO2 100 I&O: 05/14/18 05/15/18 05/16/18 06:59 06:59 06:59 Intake Total 720 1112 520 Output Total 275 965 Balance 720 837 -445 Result Diagrams: 05/15/18 04:56 05/15/18 04:56 Phys Exam - Physical Examination Neck: no nodes, no JVD, supple, full ROM mild crackles to lower lung bases Dx/Plan (1) SOB (shortness of breath) Code(s): R06.02 - SHORTNESS OF BREATH Status: Acute (2) PNA (pneumonia) Code(s): J18.9 - PNEUMONIA, UNSPECIFIED ORGANISM Status: Resolved (3) CAD (coronary artery disease) Code(s): I25.10 - ATHSCL HEART DISEASE OF [place] CORONARY ARTERY W/O ANG PCTRS Status: Acute (4) CKD (chronic kidney disease) Code(s): N18.9 - CHRONIC KIDNEY DISEASE, UNSPECIFIED Status: Acute - Plan will continue zosyn and vanco, pt will need dialysis -: pt was on bipap last night now off -: worsening ckd. nephro consulted -: pt's hh is low will need blood transfusion * . Review of Systems - Review of Systems Cardiovascular: negative: chest pain, palpitations, orthopnea, paroxysmal nocturnal dyspnea, edema, light headedness, other Gastrointestinal: negative: Nausea, Vomiting, Abdominal Pain, Diarrhea, Constipation, Melena, Hematochezia, Other Genitourinary: negative: Dysuria, Frequency, Incontinence, Hematuria, Retention , Other - Medications/Allergies Allergies/Adverse Reactions: Allergies Allergy/AdvReac Type Severity Reaction Status Date / Time phenytoin sodium Allergy Severe Emesis Verified 05/01/18 05:56 [From Dilantin] phenytoin sodium extended Allergy Severe Emesis Verified 05/01/18 05:56 [From Dilantin] midazolam HCl [From Versed] Allergy Intermediate swelling Verified 05/01/18 05: 56 Medications: Current Medications Acetaminophen (Tylenol) 650 mg PO Q4H PRN PRN Reason: Headache/Fever/Mild Pain (1-3) Last Admin: 05/14/18 00:49 Dose: 650 mg Amiodarone HCl (Cordarone) 200 mg PO BID [facility] Last Admin: 05/15/18 08:26 Dose: 200 mg Aspirin (Aspirin Chewable) 81 mg PO DAILY [facility] Last Admin: 05/15/18 08:26 Dose: 81 mg Benzonatate (Tessalon) 100 mg PO Q6H PRN PRN Reason: Cough Last Admin: 05/14/18 21:09 Dose: 100 mg Carvedilol (Coreg) 6.25 mg PO BID[facility] Last Admin: 05/15/18 08:25 Dose: 6.25 mg Ferrous Sulfate (Feosol) 325 mg PO BID[facility] Last Admin: 05/15/18 08:26 Dose: Not Given Furosemide (Lasix) 80 mg PO 0900,1400 [facility] Last Admin: 05/15/18 08:26 Dose: 80 mg Piperacillin Sod/Tazobactam (Sod 3.375 gm/ Sodium Chloride) 100 mls @ 200 mls/ hr IVPB BID [facility] Last Admin: 05/15/18 08:25 Dose: 100 mls Vancomycin HCl 1.5 gm/ Sodium (Chloride) 300 mls @ 200 mls/hr IVPB WILLCALL NEPTALI Vancomycin HCl 1.25 gm/ Sodium (Chloride) 250 mls @ 166.667 mls/hr IVPB WILLCALL [facility] Vancomycin HCl 1 gm/ Device 200 mls @ 200 mls/hr IVPB WILLCALL [facility] Vancomycin HCl 750 mg/ Sodium (Chloride) 250 mls @ 250 mls/hr IVPB WILLCALL [facility] Ipratropium [place] (Atrovent) 2.5 ml NEB Q6H PRN PRN Reason: SOB &/or Wheezing Megestrol Acetate (Megace) 40 mg PO DAILY [facility] Last Admin: 05/15/18 08:55 Dose: 40 mg Miscellaneous Medication (Pharmacy To Dose) 1 each IVPB DAILYPRN PRN PRN Reason: LABS Hold Vancomycin For (Level >20) 0 each FS .AT DIALYSIS [facility] Ondansetron HCl (Zofran Odt) 4 mg PO Q6H PRN PRN Reason: Nausea/Vomiting Ondansetron HCl (Zofran) 4 mg IVP Q6H PRN PRN Reason: Nausea/Vomiting Last Admin: 05/15/18 11:32 Dose: 4 mg Oxcarbazepine (Trileptal) 600 mg PO BID [facility] Last Admin: 05/15/18 08:55 Dose: 600 mg Quetiapine Fumarate (Seroquel) 25 mg PO HS [facility] Sterile Water (Bacteriostatic Water) 1 ml FS PRN PRN PRN Reason: RECONSTITUTION Last Admin: 05/14/18 10:21 Dose: 1 ml
--- NOTE | 2018-05-15 20:32 | CON ---
DATE OF CONSULTATION: HISTORY OF PRESENT ILLNESS: Mr. Boo is a 47-year-old male, whom I have cared for several years. He has had many bumps in the road all along this time. Apparently, he was admitted very early in the morning yesterday with complaints of cough. He ,on the last admission, was on hemodialysis. His tunneled catheter is still in place. He had an outpatient attempts for placement of vascular access, it did not mature. Dialysis was held 2 weeks ago and he has been doing reasonably well. He presented the afternoon of the with a chest x-ray showing pulmonary edema in my opinion. He is admitted to the telemetry unit and then had a code Green called this morning after his left. She was not aware of this. He was transferred into the unit, placed on CPAP and this was removed later in the morning. I was consulted because of his presence in the critical care unit. He is somnolent. When I have seen him in the past and he has become distressed. His mental status very quickly changes, so this is not his baseline. PAST MEDICAL HISTORY: Remarkable for; 1. Many days in the hospital this last year and early this year. 2. He has antiphospholipid antibody syndrome. 3. History of DVT and PE. 4. History of systolic heart failure with ejection fraction of 40%. 5. Hypertension. 6. Renal failure. 7. Lipid disorder. 8. Gout. 9. History of an inferior vena cava filter. 10. History of a seizure disorder that led to a craniotomy in the past. 11. He had a surgical resection of what was felt to be the focus of his seizures. 12. History of massive renal hemorrhage in fall of last year. He presented at that time with complaints of abdominal discomfort. He had pulmonary edema on admission. He had thick gallbladder. He is admitted and anticoagulated. He was found unresponsive sitting in a chair. Code was called. He is transferred to critical care unit. He awakened when he was placed in the supine position. It was diffusely tender abdomen at that time. We sent him down for another CT, which showed atrophic kidneys and large left renal hemorrhage with retroperitoneal blood. His anticoagulants were reversed. Amazingly, he survived that. He was seen by a neurologist in April of 2017 for confusion. It was noted that his seizures were well controlled for while after he had his surgery and is actually off epilepsy medicine for quite some time and he started having seizures again. His is a great caregiver .He finally started back on medications for seizures. FAMILY HISTORY: Negative for lung disease in early age. REVIEW OF SYSTEMS: Not accurately obtainable. PHYSICAL EXAMINATION: GENERAL: He is tachypneic. He will open his eyes and briefly make eye contact , but he is not spontaneously verbalizing. He will spontaneously move all his extremities. NECK: Supple. He had no lymphadenopathy. LUNGS: Remarkable for crackles long term up right greater than left. HEART: Regular rhythm. ABDOMEN: Soft. EXTREMITIES: Without clubbing, cyanosis, or edema. LABORATORY DATA: Labs reviewed. Chest radiographs suggests worsening of his pulmonary edema. IMPRESSION AND PLAN: Volume overload, acute on chronic renal failure. He probably needs dialysis today. I discussed this with Dr. De La Rosa and he has arranged for dialysis to start soon. I do not think he will do well without some type of ventilatory support, so he is placed on bilevel positive airway pressure instead of continuous positive airway pressure. He appears to be comfortable with the bilevel positive airway pressure, so once he is dialyzed, hopefully in the morning, we can wean him back off bilevel positive airway pressure. His hemoglobin is 7.5, was 6.8 yesterday. He will probably need to be transfused here in the next few days. Electrolytes are unremarkable, but his creatinine went from 2.9 to 3.2. His intake and output will be watched closely. We will be happy to follow along with the other physicians caring for him. Critical care time 30 minutes, met the and answered all her questions. Job ID: [id number] [facility]
[2018-05-15] MEDS: Acetaminophen 325 MG TAB PO PRN (20:51)
--- NOTE | 2018-05-16 00:05 | PRG ---
DATE OF SERVICE: 05/15/2018 SUBJECTIVE: Mr. Boo is a 47-year-old white male with known multiple medical problems, chronic renal failure, and admitted for shortness of breath. During the initial evaluation, he was attempted to be diuresed with Lasix to improve his shortness of breath. Please note, his renal function has improved over the last several weeks. His baseline creatinine is about 3.0 and he has been off dialysis for about 2 weeks. However, in the last 12 hours, the patient's shortness of breath worsened. Chest x-ray showed persistent CHF. He was attempted to be diuresed, but he has not made adequate urine output. For this reason, we earlier decided to do dialysis for fluid removal. We were able to remove successfully 4 L of fluid. He is breathing much better. No other complaints. OBJECTIVE: VITAL SIGNS: Blood pressure is 92/43, heart rate 76, respiratory rate 22, and pulse ox 99%. GENERAL: Awake, supine, confused, not in overt distress. SKIN: Adequate turgor. HEENT: He has slightly pale conjunctivae. Anicteric sclerae. No neck mass. No carotid bruits. No JVD. CHEST: No deformities. LUNGS: Clear breath sounds. HEART: Normal sinus rhythm. No murmur. No gallops. No rubs. ABDOMEN: Globular, soft, nontender. No masses. EXTREMITIES: No edema. No deformities. MEDICATIONS: Medications of May 15, 2018, was reviewed. LABORATORY DATA: Laboratories of May 15, 2018; white count 10.3, hemoglobin 7.5, platelet count 47,000. Sodium 128, potassium 4.7, chloride 98, carbon dioxide 20, BUN 36, creatinine 3.21, glucose 95, calcium 8.5, phosphorus 3.6, albumin 3.0. ASSESSMENT AND PLAN: 1. Congestive heart failure. Chest x-ray shows asymmetrical congestive heart failure. Emergent hemodialysis was done. 4 L of fluid was removed. 2. Chronic renal failure-hemodialysis was initiated due to the fact that the patient was poorly responsive to diuretics. 3. Also this patient has known underlying history of decreased ejection fraction. My bias due to the volume overload and unresponsiveness to Lasix is place him on a maintenance hemodialysis. I may end up resuming back this patient on 3 times a week dialysis. Overall, agree with current management. Job ID: [id number]
[2018-05-16] MEDS: Carvedilol 6.25 MG TAB PO SCH ×2 (08:00→18:00)
[2018-05-16] MEDS: Ferrous Sulfate 325 MG TAB PO SCH ×2 (08:00→14:17)
[2018-05-16 08:38] LABS: Actual Bicarbonate (HCO3a) 25.6 mEq/L (22-28); Base Excess (BEa) 1.6 mEq/L (-2.0 to +3.0); CO2 Tension 38.2 mmHg (35.0-45.0); Calcium, Ionized 1.17 mmol/L (1.12-1.30); Carboxyhemoglobin (COHb) 1.9 gm% (0.0-3.0); Hemoglobin (Hb) 12.3 g/dL (14.0-18.0); Potassium - ABG Lab 3.45 mmol/L (3.70-5.30); pH, Arterial 7.44 (7.35-7.45)
[2018-05-16 08:39] LABS: O2 Tension (PaO2) 45.2 mmHg (80.0-100.0)
[2018-05-16 08:40] LABS: Puncture Site RR
[2018-05-16] MEDS: Amiodarone 200 MG TAB PO SCH ×3 (09:00→21:17)
[2018-05-16] MEDS: Furosemide 80 MG TAB PO SCH ×2 (09:00→14:18)
[2018-05-16] MEDS: Megestrol Acetate 40 MG TAB PO SCH (09:00)
[2018-05-16] MEDS: Aspirin Chewable 81 MG TAB PO SCH ×2 (09:00→14:18)
--- NOTE | 2018-05-16 09:13 | RAD ---
CHEST ONE VIEW: History: Pulmonary edema. Follow up. Comparison: 05-15-18 FINDINGS: Cardiac silhouette remains magnified and enlarged. Fluffy parenchymal opacity throughout the right ashwini ng and left lower lobe is similar in appearance to the prior study. No evidence of pneumothorax. Medi astinum is midline. Lines and tubes are unchanged in position. IMPRESSION: Pulmonary edema and other findings are stable. POS: TPC
--- NOTE | 2018-05-16 09:17 | PRG ---
DATE OF SERVICE: 05/16/2018 SUBJECTIVE: Mr. Boo is a 47-year-old white male with chronic renal failure. He was noted to be in respiratory distress yesterday. He underwent a 3-hour hemodialysis with 4 L fluid removal. He improved that night. However, this morning, he again is in respiratory distress. Our plan is again to do hemodialysis. We will be doing a 4-hour hemodialysis. Since his BUN and creatinine are fairly stable and actually not fairly high, the plan is to do initially a 2-hour ultrafiltration and then followed by 2-hour hemodialysis. Hopefully by doing a 2-hour ultrafiltration, we will be able to remove the fluid and his blood pressure will tolerate this. OBJECTIVE: VITAL SIGNS: Blood pressure is currently noted at 122/71, heart rate 88, respiratory rate 16, and pulse ox is 97% - on non-rebreather. GENERAL: The patient is awake, in mild respiratory distress. SKIN: Adequate turgor. HEENT: He has slightly pale conjunctivae. Anicteric sclerae. NECK: No neck mass. No carotid bruits. No JVD. CHEST: No deformities. LUNGS: Decreased breath sounds. HEART: Normal sinus rhythm. No murmurs. No gallops. No rubs. ABDOMEN: Globular, soft, and nontender. No masses. EXTREMITIES: Trace edema. DIAGNOSTIC DATA: Chest x-ray shows pulmonary edema. LABORATORY DATA: Laboratories of May 15, 2018; white count 10.3, hemoglobin 7.5. Sodium 128, potassium 4.7, chloride 98, carbon dioxide 20, BUN 36, creatinine 3.21, calcium 8.5, phosphorus 3.5, and albumin 3.0. ASSESSMENT AND PLAN: 1. Congestive heart failure - we will schedule him again for another 4-hour hemodialysis today. As previously mentioned, we will do a 2-hour ultrafiltration to max out fluid removal and hopefully the BP will tolerate this. This will be followed by 2-hour hemodialysis on the 3rd and 4th hours. We may need to do daily dialysis with this patient. 2. Anemia. We will be restarting Epogen with this patient as well as iron supplementation. 3. Chronic renal failure/end-stage renal disease - with this recent events, my bias is to probably place this patient back on a regular dialysis schedule. He was off dialysis for about 2 weeks due to a stable creatinine. 4. Overall, agree with current management. Job ID: [id number]
[2018-05-16] MEDS: OXcarbazepine 300 MG TAB PO SCH ×2 (09:30→21:16)
--- NOTE | 2018-05-16 10:22 | PDOC.CTH ---
Cardiology Progress Note - Subjective The pt seen and examined. Code green for worsening of SOB. Weaning off from Bipap; Plan for HD this AM. - Objective Vital Signs Temp Pulse Resp Pulse Ox 05/16/18 07:26 74 15 96 05/16/18 04:58 76 96 05/16/18 04:00 98.9 F 05/16/18 00:00 98.9 F Weight 237 lb 10.533 oz 05/15/18 05/16/18 05/17/18 06:59 06:59 06:59 Intake Total 1112 768 Output Total 275 1310 Balance 837 -542 - Physical Examination General/Neuro: alert & oriented x3 Neck: no JVD present Lungs: other: (coarses and diminished at bases) Heart: RRR Abdomen: soft Extremities: other: (mild BLE edema) - Telemetry Telemetry Rhythm: SR - Labs Result Diagrams: 05/16/18 11:13 05/16/18 16:27 Troponin/CKMB CK-MB (CK-2) 1.1 ng/mL (0-6.6) 05/13/18 18:30 Troponin I 0.465 ng/mL (< 0.028) H* 05/13/18 21:13 - Assessment/Plan 1. Acute Resp. failure 2/2 fluid overload - weaning Bipap; plan for another HD today. 2. Acute on Chronic Combined HF - Plan for another HD today; 3. Acute on CKD - plan for another HD today; managed by Dr De La Rosa 4. Afib/AFlutter with s/p DCCV in 03/2018 - remains in SR; 5. Non-ischemic CMY with s/p BiV AICD placement in 03/2018 - 6. PNA - 7. Antiphospolipid syndrome, chronic thrombocytopenia - No on OAC for high risk of bleeding. 8. seizure - 9. Anemia MAR reviewed * Echo in 01/2018 showed EF 40-45%, grade I diastolic dysfunction, dilated LV, mod dilated LA, RVSP 40mmHg, mild MR, MS, ME and TR. Pt.seen and eval.by me.He isfeeling better after dialysis. I agree with the A/P by the LOGISTICS ASSOCIATE.Chest clear.RRR.No edema. Review of Systems - Review of Systems Constitutional: reports: no symptoms reported Review of Systems - Review of Systems Constitutional: reports: weakness EENTM: reports: no symptoms reported Respiratory: reports: shortness of breath, SOB with excertion Cardiac (ROS): reports: no symptoms reported ABD/GI: reports: no symptoms reported
--- NOTE | 2018-05-16 10:42 | PDOC.PN ---
- Subjective Encounter Start Date: 05/16/18 Encounter Start Time: 12:00 Subjective: Patient still on Bipap, breathing ok on the bipap but drying out -: mouth. Getting dialysis currently. - Objective Resuscitation Status - Order Detail: 05/13/18 20:04 Resuscitation Status Routine Resuscitation Status: FULL: Full Resuscitation MAR Reviewed: Yes Vital Signs & Weight: Vital Signs (12 hours) Temp Pulse Resp Pulse Ox 05/16/18 07:26 74 15 96 05/16/18 04:58 76 96 05/16/18 04:00 98.9 F 05/16/18 00:00 98.9 F Weight Weight 237 lb 10.533 oz Most Recent Monitor Data Heart Rate from ECG 81 NIBP 132/82 NIBP BP-Mean 98 Respiration from ECG 16 SpO2 97 I&O: 05/15/18 05/16/18 05/17/18 06:59 06:59 06:59 Intake Total 1112 768 Output Total 275 1310 Balance 837 -542 Result Diagrams: 05/16/18 11:13 05/15/18 04:56 Phys Exam - Physical Examination Constitutional: NAD HEENT: moist MMs decent breath sounds bilaterally on Bipap Cardiovascular: RRR, no significant murmur Gastrointestinal: soft Musculoskeletal: no edema Neurological: non-focal, moves all 4 limbs Psychiatric: normal affect, A&O x 3 Dx/Plan (1) Acute respiratory failure with hypoxia Code(s): J96.01 - ACUTE RESPIRATORY FAILURE WITH HYPOXIA Status: Acute Comment: requiring Bipap this hospitalization, due to volume overload, CHF and ESRD (2) Acute exacerbation of CHF (congestive heart failure) Code(s): I50.9 - HEART FAILURE, UNSPECIFIED Status: Acute Qualifiers: Heart failure type: combined systolic and diastolic Qualified Code(s): I50.43 - Acute on chronic combined systolic (congestive) and diastolic ( congestive) heart failure Comment: ef of 40% in 2018, class C (3) PNA (pneumonia) Code(s): J18.9 - PNEUMONIA, UNSPECIFIED ORGANISM Status: Ruled-out Comment: infiltrate due to pulmonary edema and no fever/elevated WBC, will d/c antibiotics (4) CKD (chronic kidney disease) Code(s): N18.9 - CHRONIC KIDNEY DISEASE, UNSPECIFIED Status: Chronic Qualifiers: Chronic kidney disease stage: stage 5, not on chronic dialysis Qualified Code(s): N18.5 - Chronic kidney disease, stage 5 Comment: resuming dialysis,failed trial off dialysis for 2 weeks - Plan cont current plan of care, respiratory therapy * . - Discharge Day Encounter end time: 12:10
[2018-05-16] MEDS ORDERED: Epoetin (ESRD) 20,000 UNITS/ML SC SCH (11:00)
[2018-05-16 11:25] LABS: Hemoglobin 9.9 g/dL (14.0-18.0); Mean Corpuscular HGB CONC 31.8 g/dL (32.0-36.0); Mean Corpuscular Hemoglobin 29.7 pg (27.0-31.0); Mean Corpuscular Volume 93.4 fL (78.0-98.0); Mean Platelet Volume 9.9 fL (7.4-10.4); Platelet Count 35 thou/uL (130-400); RBC Distribution Width 14.4 % (11.5-14.5); Red Blood Cell (RBC) Count 3.33 mill/uL (4.70-6.10); White Blood Cell (WBC) Count 11.1 thou/uL (4.8-10.8)
--- NOTE | 2018-05-16 11:40 | PRG ---
DATE OF SERVICE: 05/16/2018 SUBJECTIVE: Hans Boo was taken off BiPAP this morning, but did not tolerate it for a long. His saturations dropped into the low 80s. Chest radiograph was repeated, shows diffuse infiltrates consistent with pulmonary edema. He will have dialysis again this morning. He was placed back on BiPAP. OBJECTIVE: VITAL SIGNS: Blood pressure is 132/52, heart rate is 81, and oximetry is 97% on BiPAP. LUNGS: Remarkable for crackles in both lung bases. HEART: Regular rhythm. ABDOMEN: Soft. EXTREMITIES: Without clubbing, cyanosis, or edema. LABORATORY DATA: Unfortunately, lab was not drawn this morning. This will be ordered. It is really needs to be ordered mainly to follow up his anemia. IMPRESSION AND PLAN: 1. Acute on chronic renal disease with volume overload requiring semi-emergent dialysis yesterday after code green. 2. Respiratory failure. He is much more alert today, which is always a good sign for Hans. He is tolerating bilevel positive airway pressure reasonably well. TIME SPENT: Critical care time, 30 minutes. Job ID: [id number]
[2018-05-16 12:32] LABS: Band 3 % (5-11); Lymphocytes 7 % (21-51); MDiff Complete? YES; Monocytes 2 % (0-10); Neutrophil 88 % (42-75); Polychromasia SLIGHT = 2-3 cells (100X) (0-2/hpf)
[2018-05-16] MEDS ORDERED: Heparin 10,000 UNITS/ 10 ML VIAL ONE (13:45)
[2018-05-16 17:05] LABS: Anion Gap 17 mmol/L (10-20); BUN (Urea Nitrogen) 12 mg/dL (8.9-20.6); Calc. Creatinine Clearance 77 mL/min (70-130); Carbon Dioxide 24 mmol/L (22-29); Chloride 98 mmol/L (98-107); Estimated GFR-MDRD 40; Glucose 116 mg/dL (70-105); Potassium 3.5 mmol/L (3.5-5.1); Sodium 135 mmol/L (136-145)
[2018-05-17] MEDS: Acetaminophen 325 MG TAB PO PRN (00:51)
[2018-05-17 06:30] LABS: Anion Gap 14 mmol/L (10-20); BUN (Urea Nitrogen) 21 mg/dL (8.9-20.6); Calc. Creatinine Clearance 47 mL/min (70-130); Calcium 8.7 mg/dL (7.8-10.44); Carbon Dioxide 25 mmol/L (22-29); Chloride 97 mmol/L (98-107); Estimated GFR-MDRD 25; Glucose 80 mg/dL (70-105); Potassium 3.4 mmol/L (3.5-5.1); Sodium 133 mmol/L (136-145)
[2018-05-17 06:36] LABS: Hemoglobin 8.5 g/dL (14.0-18.0); Mean Corpuscular Hemoglobin 30.3 pg (27.0-31.0); Mean Corpuscular Volume 94.5 fL (78.0-98.0); Mean Platelet Volume 10.6 fL (7.4-10.4); Platelet Count 36 thou/uL (130-400); White Blood Cell (WBC) Count 5.1 thou/uL (4.8-10.8)
[2018-05-17 07:33] LABS: Band 3 % (5-11); Eosinophils 1 % (0-10); Lymphocytes 20 % (21-51); MDiff Complete? YES; Monocytes 3 % (0-10); Neutrophil 71 % (42-75); Platelet Morphology Comment Appears Decreased; RBC Morphology Normal; Reactive Lymphocytes 2 % (0-10)
--- NOTE | 2018-05-17 08:27 | RAD ---
SINGLE VIEW OF THE CHEST: COMPARISON: 05/16/2018. HISTORY: Ventilated patient with respiratory failure. FINDINGS: A single view of the chest shows an enlarged but stable cardiomediastinal silhouette. The pacemaker and dialysis catheter are unchanged in position. There are multifocal airspace opacities scattered t hroughout the lungs which have slightly improved compared to the prior examination. IMPRESSION: Improving multifocal infiltrates. POS: ANGEL
--- NOTE | 2018-05-17 08:36 | PDOC.CTH ---
Cardiology Progress Note - Subjective The pt seen and examined. No overnight events. No cardiac complaints. He stated he can breath better today. - Objective Vital Signs Temp Pulse Resp Pulse Ox 05/17/18 04:00 98.8 F 05/17/18 02:31 68 24 H 100 05/17/18 00:00 98.7 F Weight 220 lb 7.396 oz 05/16/18 05/17/18 05/18/18 06:59 06:59 06:59 Intake Total 768 460 Output Total 1310 245 Balance -542 215 - Physical Examination General/Neuro: alert & oriented x3 Neck: no JVD present Lungs: other: (diminished at bases) Heart: RRR Abdomen: soft Extremities: other: (no edema) - Labs Result Diagrams: 05/17/18 05:56 05/17/18 05:56 Troponin/CKMB CK-MB (CK-2) 1.1 ng/mL (0-6.6) 05/13/18 18:30 Troponin I 0.465 ng/mL (< 0.028) H* 05/13/18 21:13 - Assessment/Plan 1. Acute Resp. failure 2/2 fluid overload - stable with 4LNC after HD yesterday. 2. Acute on Chronic Combined HF - CXR showed slight improvement. 3. Acute on CKD - managed by Dr De La Rosa 4. Afib/AFlutter with s/p DCCV in 03/2018 - remains in SR; 5. Non-ischemic CMY with s/p BiV AICD placement in 03/2018 - 6. PNA - managed by PCP/jockey valet 7. Antiphospolipid syndrome, chronic thrombocytopenia - No on OAC for high risk of bleeding. 8. seizure - 9. Anemia - On Epoetin MAR reviewed * Echo in 01/2018 showed EF 40-45%, grade I diastolic dysfunction, dilated LV, mod dilated LA, RVSP 40mmHg, mild MR, MS, MO and TR. Pt. seen and eval. by me. Repeat dialysis today. He is feeling better but very deconditioned. Chest clear. RRR. Minimal lower leg edema. I agree with the A/P by the GLASS BELT SANDER. Overall cardiac status is stable. Review of Systems - Review of Systems Constitutional: reports: weakness EENTM: reports: no symptoms reported Respiratory: reports: no symptoms reported Cardiac (ROS): reports: no symptoms reported ABD/GI: reports: no symptoms reported : reports: no symptoms reported Musculoskeletal: reports: no symptoms reported Skin: reports: no symptoms reported
--- NOTE | 2018-05-17 09:36 | PDOC.PN ---
- Subjective Encounter Start Date: 05/17/18 Encounter Start Time: 12:10 Subjective: Patient off Bipap all mornging. Still coughing but SOB -: markedly improved. No chest pain. - Objective Resuscitation Status - Order Detail: 05/13/18 20:04 Resuscitation Status Routine Resuscitation Status: FULL: Full Resuscitation MAR Reviewed: Yes Vital Signs & Weight: Vital Signs (12 hours) Temp Pulse Resp Pulse Ox 05/17/18 04:00 98.8 F 05/17/18 02:31 68 24 H 100 05/17/18 00:00 98.7 F Weight Weight 220 lb 7.396 oz Most Recent Monitor Data Heart Rate from ECG 67 NIBP 127/78 NIBP BP-Mean 94 Respiration from ECG 17 SpO2 100 I&O: 05/16/18 05/17/18 05/18/18 06:59 06:59 06:59 Intake Total 768 460 Output Total 1310 245 Balance -542 215 Result Diagrams: 05/17/18 05:56 05/17/18 05:56 Phys Exam - Physical Examination Constitutional: NAD HEENT: moist MMs lying on right side, rales all on right Cardiovascular: RRR Gastrointestinal: soft, positive bowel sounds Musculoskeletal: no edema Neurological: non-focal, moves all 4 limbs Psychiatric: normal affect, A&O x 3 Dx/Plan (1) Acute respiratory failure with hypoxia Code(s): J96.01 - ACUTE RESPIRATORY FAILURE WITH HYPOXIA Status: Acute Comment: requiring Bipap this hospitalization, due to volume overload, CHF and ESRD, improved and off Bipap now (2) Acute exacerbation of CHF (congestive heart failure) Code(s): I50.9 - HEART FAILURE, UNSPECIFIED Status: Acute Qualifiers: Heart failure type: combined systolic and diastolic Qualified Code(s): I50.43 - Acute on chronic combined systolic (congestive) and diastolic ( congestive) heart failure Comment: ef of 40% in 2018, class C (3) CKD (chronic kidney disease) Code(s): N18.9 - CHRONIC KIDNEY DISEASE, UNSPECIFIED Status: Chronic Qualifiers: Chronic kidney disease stage: stage 5, not on chronic dialysis Qualified Code(s): N18.5 - Chronic kidney disease, stage 5 Comment: resuming dialysis, failed trial off dialysis for 2 weeks (4) Nonischemic cardiomyopathy Code(s): I42.8 - OTHER CARDIOMYOPATHIES Status: Chronic Comment: s/p BiV AICD (5) Antiphospholipid syndrome Code(s): D68.61 - ANTIPHOSPHOLIPID SYNDROME Status: Chronic (6) Thrombocytopenia Code(s): D69.6 - THROMBOCYTOPENIA, UNSPECIFIED Status: Chronic Comment: no blood thinners (7) Anemia in chronic kidney disease Code(s): N18.9 - CHRONIC KIDNEY DISEASE, UNSPECIFIED; D63.1 - ANEMIA IN CHRONIC KIDNEY DISEASE Status: Chronic Comment: on erythropoetin - Plan cont current plan of care, respiratory therapy * . - Discharge Day Encounter end time: 12:20
--- NOTE | 2018-05-17 09:48 | PRG ---
DATE OF SERVICE: 05/17/2018 SERVICE: Renal Medicine. SUBJECTIVE: Mr. Boo is a 47-year-old white male with chronic renal failure, who was admitted for congestive heart failure. His dialysis was again re-initiated. He was off dialysis for 2 weeks due to the improved renal function. However, he became volume overloaded. He was unresponsive to diuretics. He underwent 2 consecutive dialysis. We have removed a total of 9 L in the last 2 dialysis session. He is breathing much better. He is off his CPAP. No other complaints today. No chest pain or shortness of breath. Chest x-ray showed improvement, but still shows evidence of CHF. OBJECTIVE: VITAL SIGNS: Blood pressure is 127/78, heart rate 67, respiratory rate 17, and pulse ox 100%. GENERAL: Noted to be awake, comfortable, not in overt distress. SKIN: Adequate turgor. HEENT: He has slightly pale conjunctivae. Anicteric sclerae. NECK: No neck mass. No carotid bruits. No JVD. CHEST: No deformities. LUNGS: Decreased breath sounds. HEART: Normal sinus rhythm. No murmur. No gallops. No rubs. ABDOMEN: Globular, soft, and nontender. EXTREMITIES: No edema. MEDICATIONS: Medications of May 17, 2018, reviewed. LABORATORY DATA: Laboratories of May 17, 2018; white count 5.1, hemoglobin 8.5, and platelet count noted at 36,000. Sodium 133, potassium 3.4, chloride 97, carbon dioxide 25, BUN 21, creatinine 2.76, glucose 80, and calcium 8.7. ASSESSMENT AND PLAN: 1. Congestive heart failure, clinically much improved. My bias is still to do another dialysis for fluid removal. I have also discontinued his IV Lasix since I would place him back on dialysis. My plan is to attempt to remove 3 to 4 L as tolerated by the patient. 2. End-stage renal disease - I will be resuming back this patient on a regular dialysis regimen of 3 times a week. Hemodialysis for a total of 3 hours today. My plan is to do a 2-hour ultrafiltration and 1-hour hemodialysis. We will do this maneuver in the hope that his BP will tolerate again the fluid removal. 3. Anemia, on weekly Epogen, p.r.n. blood transfusion. Overall, prognosis remains guarded. I have already consulted Case Management for outpatient dialysis placement. Overall, agree with current management. Job ID: [id number]
[2018-05-17] MEDS: Carvedilol 6.25 MG TAB PO SCH ×2 (10:02→17:46)
[2018-05-17] MEDS: Ferrous Sulfate 325 MG TAB PO SCH ×2 (10:03→17:44)
[2018-05-17] MEDS: Amiodarone 200 MG TAB PO SCH ×2 (10:03→20:05)
[2018-05-17] MEDS: Aspirin Chewable 81 MG TAB PO SCH (10:04)
[2018-05-17] MEDS: Megestrol Acetate 40 MG TAB PO SCH (10:04)
[2018-05-17] MEDS: OXcarbazepine 300 MG TAB PO SCH ×2 (10:04→20:05)
--- NOTE | 2018-05-17 11:21 | PQF ---
DATE: 05-17-18 ATTN: DR. CRISTOBAL CANO Please exercise your independent, professional judgment in responding to the clarification form. Clinical indicators are provided on the bottom of this form for your review Please check appropriate box(s): [ ] NSTEMI [ ] AMI Type II [ ] Demand Ischemia [ ] Other diagnosis [ X ] Unable to determine In addition, please specify: Present on Admission (POA): [ X ] Yes [ ] No [ ] Unable to determine CLINICAL INDICATORS - SIGNS / SYMPTOMS / LABS TROPONIN: 05-13-18: 0.418 0.482 0.465 ER DX: ACS RULE OUT H&P: [id number] MYOCARDIAL INFARCTION. CONSULT NOTE DR. MIRANDA 05-14-18: CARDIAC ENZYMES ARE ACTUALLY ABNORMAL, BUT HE HAS OFTEN HAD ABNORMAL ENZYMES ARE ACTUALLY ABNORMAL, BUT HE HAS OFTEN HAD ABNORMAL ENZYMES IN THE PAST, WOULD NOT BE UNUSUAL WITH HIS CARDIOMYOPATHY AND HIS CHF EXACERBATION. RISKS: ER: HX HTN, MITRAL VALVE LEAK, ENLARGED HEART, ESRD, A FIB, BRAIN TUMOR , IVC FILTER, DEPRESSION, HEART CATH, SZ TREATMENTS: CARDIOLOGY CONSULT 05-14-18 (This form is maintained as a part of the permanent medical record) 2015 [employer]. All Rights Reserved FARIBA [email or web address] Office: [phone] ALEXANDRA
[2018-05-17] MEDS: Furosemide 80 MG TAB PO SCH (15:24)
[2018-05-17] MEDS: Piperacillin/Tazobactam 3.375 GM in Sodium Chloride 0.9% 100 ML IVPB SCH (15:33)
--- NOTE | 2018-05-17 19:46 | PRG ---
DATE OF SERVICE: 05/17/2018 SUBJECTIVE: Radiograph continues to improve. He is receiving dialysis again today. OBJECTIVE: VITAL SIGNS: His blood pressure this afternoon is 101/72, heart rate 70s, respiratory rates in the teens to low 20s. CHEST: He has tachypnea, it is much better, off BiPAP now. He did not tolerate being off BiPAP for dialysis yesterday for very long. VITAL SIGNS: Stable. LUNGS: Remarkable for crackles at bases. HEART: Regular rhythm. ABDOMEN: Soft and nontender. EXTREMITIES: Without edema. IMPRESSION: Volume overload after holding dialysis for couple weeks, improving now that he has had volume removed. Intake and output coming into today was recorded as positive 215, but I don't see where yesterday's dialysis is reported in the intake and output. His weight dropped 17 pounds which also I think is inaccurate. Any event, his radiographs improved, and I suspect dialysis is led to resolution of his respiratory failure. Hopefully, we can avoid BiPAP for now. Job ID: [id number] [facility]
[2018-05-18 05:31] VITALS: BMI 25.4
[2018-05-18 06:46] LABS: Mean Corpuscular HGB CONC 30.9 g/dL (32.0-36.0); Mean Corpuscular Hemoglobin 29.2 pg (27.0-31.0); Mean Corpuscular Volume 94.6 fL (78.0-98.0); Mean Platelet Volume 9.5 fL (7.4-10.4); Platelet Count 50 thou/uL (130-400); Red Blood Cell (RBC) Count 3.09 mill/uL (4.70-6.10); White Blood Cell (WBC) Count 4.1 thou/uL (4.8-10.8)
[2018-05-18 06:52] LABS: Anion Gap 13 mmol/L (10-20); BUN (Urea Nitrogen) 20 mg/dL (8.9-20.6); Calc. Creatinine Clearance 40 mL/min (70-130); Calcium 8.8 mg/dL (7.8-10.44); Carbon Dioxide 25 mmol/L (22-29); Chloride 96 mmol/L (98-107); Estimated GFR-MDRD 21; Glucose 98 mg/dL (70-105); Potassium 3.1 mmol/L (3.5-5.1); Sodium 131 mmol/L (136-145)
[2018-05-18 06:58] LABS: Band 5 % (5-11); Eosinophils 3 % (0-10); Lymphocytes 16 % (21-51); MDiff Complete? YES; Monocytes 11 % (0-10); Neutrophil 65 % (42-75); Platelet Morphology Comment Appears Decreased
[2018-05-18] MEDS: Aspirin Chewable 81 MG TAB PO SCH (08:08)
[2018-05-18] MEDS: Ferrous Sulfate 325 MG TAB PO SCH (08:09)
[2018-05-18] MEDS: OXcarbazepine 300 MG TAB PO SCH ×2 (08:09→21:13)
[2018-05-18] MEDS: Amiodarone 200 MG TAB PO SCH ×2 (08:09→21:14)
[2018-05-18] MEDS: Carvedilol 6.25 MG TAB PO SCH ×2 (08:10→17:01)
[2018-05-18] MEDS: Megestrol Acetate 40 MG TAB PO SCH (08:11)
--- NOTE | 2018-05-18 08:45 | RAD ---
SINGLE VIEW CHEST: Date: 05/18/18 COMPARISON: 05/17/18. HISTORY: Respiratory failure. Ventilated patient. FINDINGS: Single view of the chest shows an enlarged but stable cardiomediastinal silhouette. The pacemaker is unchanged in position. Dialysis catheter is unchanged in position. There are increased interstitial l devon markings in the bases, unchanged. IMPRESSION: Stable exam. POS: [facility]
[2018-05-18] MEDS: Benzonatate 100 MG CAP PO PRN (09:12)
--- NOTE | 2018-05-18 09:36 | PRG ---
DATE OF SERVICE: 05/18/2018 SUBJECTIVE: Mr. Boo is a 47-year-old white male with chronic renal failure, who was admitted for CHF. His dialysis was resumed. He received 3 consecutive days of dialysis with more than 10 L of fluid removed. He is breathing better; however, he has been still having persistent cough. The issue is whether he may have some amiodarone toxicity. I did discuss the case with Dr. Olson, who is feeling it is less likely from amiodarone. I have also added cough syrup with codeine with this patient. We given Tessalon Perles t.i.d. I did explain to the what our thoughts are regarding the cough, although theoretically, it is always a possibility. No other complaints. His shortness of breath is much improved. I did explain to the that he eventually will need to go back to a regular dialysis regimen. OBJECTIVE: VITAL SIGNS: Blood pressure is 101/72, heart rate 60, respiratory rate 17, and pulse ox 100%. GENERAL: Awake, comfortable, not in overt distress. SKIN: Adequate turgor. HEENT: Slightly pale conjunctivae. Anicteric sclerae. No neck mass. No carotid bruits. No JVD. CHEST: No deformities. LUNGS: Decreased breath sounds. HEART: Normal sinus rhythm. No murmurs, gallops, or rubs. ABDOMEN: Globular, soft, nontender. No masses. EXTREMITIES: No edema. No deformities. MEDICATIONS: Medications of May 18, 2018, was reviewed. LABORATORY DATA: May 18, 2018; white count 4.1, hemoglobin 9. Sodium 131, potassium 3.1, chloride 96, carbon dioxide 25, BUN 20, creatinine 3.18, calcium 8.8, glucose 98. Chest x-ray of May 18, 2018, shows stable exam. Pulmonary edema is improved. There is still some increased interstitial lung markings in the bases, which is relatively unchanged. ASSESSMENT: 1. Persistent cough. Robitussin A-C has been added. In addition, Tessalon Perles is being given regular 100 mg p.o. t.i.d. If persistent, we will discuss with Cardiology about the ease of amiodarone toxicity. 2. End-stage renal disease. The patient will be placed on regular 3 times a week hemodialysis. Fluid removal as tolerated by the patient. 3. Anemia. Continuing weekly Epogen and iron supplementation. 4. Please note, the patient's congestive heart failure is now much improved. His Lasix has also been discontinued. 5. Overall, agree with current management. Job ID: [id number]
--- NOTE | 2018-05-18 09:52 | PDOC.PN ---
- Subjective Encounter Start Date: 05/18/18 Encounter Start Time: 10:55 Subjective: Patient sleeping currently. No complaints O/N other than -: persistent cough. No more need for Bipap. - Objective Resuscitation Status - Order Detail: 05/13/18 20:04 Resuscitation Status Routine Resuscitation Status: FULL: Full Resuscitation MAR Reviewed: Yes Vital Signs & Weight: Vital Signs (12 hours) Temp Pulse Resp BP Pulse Ox 05/18/18 08:10 101/72 05/18/18 04:00 97.8 F 05/18/18 02:14 60 18 100 05/18/18 00:00 98.2 F 05/17/18 22:27 70 22 H 100 Weight Weight 215 lb 9.793 oz Most Recent Monitor Data Heart Rate from ECG 60 NIBP 101/77 NIBP BP-Mean 85 Respiration from ECG 17 SpO2 100 I&O: 05/17/18 05/18/18 05/19/18 06:59 06:59 06:59 Intake Total 460 1170 Output Total 245 245 Balance 215 925 Result Diagrams: 05/18/18 06:29 05/18/18 06:29 Phys Exam - Physical Examination Constitutional: NAD HEENT: moist MMs Respiratory: no wheezing, no rales, no rhonchi Cardiovascular: RRR Gastrointestinal: soft, positive bowel sounds Neurological: non-focal Deviation from normal: sleeping comfortably Dx/Plan (1) Acute respiratory failure with hypoxia Code(s): J96.01 - ACUTE RESPIRATORY FAILURE WITH HYPOXIA Status: Acute Comment: requiring Bipap this hospitalization, due to volume overload, CHF and ESRD, improved and off Bipap now (2) Acute exacerbation of CHF (congestive heart failure) Code(s): I50.9 - HEART FAILURE, UNSPECIFIED Status: Acute Qualifiers: Heart failure type: combined systolic and diastolic Qualified Code(s): I50.43 - Acute on chronic combined systolic (congestive) and diastolic ( congestive) heart failure Comment: ef of 40% in 2018, class C (3) CKD (chronic kidney disease) Code(s): N18.9 - CHRONIC KIDNEY DISEASE, UNSPECIFIED Status: Chronic Qualifiers: Chronic kidney disease stage: stage 5, not on chronic dialysis Qualified Code(s): N18.5 - Chronic kidney disease, stage 5 Comment: resuming dialysis, failed trial off dialysis for 2 weeks (4) Nonischemic cardiomyopathy Code(s): I42.8 - OTHER CARDIOMYOPATHIES Status: Chronic Comment: s/p BiV AICD (5) Antiphospholipid syndrome Code(s): D68.61 - ANTIPHOSPHOLIPID SYNDROME Status: Chronic (6) Thrombocytopenia Code(s): D69.6 - THROMBOCYTOPENIA, UNSPECIFIED Status: Chronic Comment: no blood thinners (7) Anemia in chronic kidney disease Code(s): N18.9 - CHRONIC KIDNEY DISEASE, UNSPECIFIED; D63.1 - ANEMIA IN CHRONIC KIDNEY DISEASE Status: Chronic Comment: on erythropoetin - Plan cont current plan of care, PT/OT, DVT proph w/SCDs Can transfer to the floor * . - Discharge Day Encounter end time: 11:05
--- NOTE | 2018-05-18 10:09 | PDOC.CTH ---
Cardiology Progress Note - Subjective the pt seen and examined. No overnight events. No cardiac complaints. He has intermittent cough. - Objective Vital Signs Temp Pulse Resp BP Pulse Ox 05/18/18 08:10 101/72 05/18/18 04:00 97.8 F 05/18/18 02:14 60 18 100 05/18/18 00:00 98.2 F 05/17/18 22:27 70 22 H 100 Weight 215 lb 9.793 oz 05/17/18 05/18/18 05/19/18 06:59 06:59 06:59 Intake Total 460 1170 Output Total 245 245 Balance 215 925 - Physical Examination General/Neuro: alert & oriented x3 Neck: no JVD present Lungs: other: (diminished at bases) Heart: RRR Abdomen: soft Extremities: other: (No edema) - Telemetry Telemetry Rhythm: SR - Labs Result Diagrams: 05/18/18 06:29 05/18/18 06:29 Troponin/CKMB CK-MB (CK-2) 1.1 ng/mL (0-6.6) 05/13/18 18:30 Troponin I 0.465 ng/mL (< 0.028) H* 05/13/18 21:13 - Assessment/Plan 1. Acute Resp. failure 2/2 fluid overload - stable with 4LNC after HD yesterday. 2. Acute on Chronic Combined HF - CXR showed slight improvement. 3. Acute on CKD - managed by Dr De La Rosa 4. Afib/AFlutter with s/p DCCV in 03/2018 - remains in SR; 5. Non-ischemic CMY with s/p BiV AICD placement in 03/2018 - 6. PNA - managed by PCP/cad drafter 7. Antiphospolipid syndrome, chronic thrombocytopenia - No on OAC for high risk of bleeding. 8. seizure - 9. Anemia - On Epoetin MAR reviewed * Echo in 01/2018 showed EF 40-45%, grade I diastolic dysfunction, dilated LV, mod dilated LA, RVSP 40mmHg, mild MR, MS, NE and TR. Pt. seen and eval. by me. i agree with the A/P by the TECHNOLOGY INTEGRATION SPECIALIST. Chest clear. RRR. Review of Systems - Review of Systems Constitutional: reports: weakness EENTM: reports: no symptoms reported Respiratory: reports: see HPI Cardiac (ROS): reports: no symptoms reported ABD/GI: reports: no symptoms reported
[2018-05-18] MEDS: guaiFENesin/Codeine Phosphate 200 mg/20 mg 10 ml UD Cup PO PRN (13:20)
[2018-05-18] MEDS: Benzonatate 100 MG CAP PO SCH ×2 (17:01→21:14)
--- NOTE | 2018-05-18 20:50 | PRG ---
DATE OF SERVICE: 05/18/2018 SUBJECTIVE: Hans Boo has no complaints. He answers questions, but he is not talkative that he normally has, which is consistent with his past behavior when it becomes critically ill. OBJECTIVE: VITAL SIGNS: He is afebrile, heart rate is in the 60s, respiratory rate 17, oximetry 96% on room air, and blood pressure 108/63. LUNGS: Clear with the exception of very fine crackles at his bases, which remarkably improved compared to 2 days ago. HEART: Regular rhythm. ABDOMEN: Soft and nontender. EXTREMITIES: Without edema. LABORATORY DATA: White count 4.1, hemoglobin 9, platelets 50,000. Sodium 131, potassium 3.1, chloride 96, bicarb 25, BUN 20, and creatinine 3.18. IMPRESSION: 1. Renal failure, chronic with acute decompensation. He failed a trial of 2 weeks off dialysis. 2. Volume overload related pulmonary edema. I reviewed all his radiographs again today going back until admission. He clearly has a clear improvement in his radiograph every day, so I doubt he has amiodarone hypersensitivity. Intake and output were positive 215 yesterday, positive 925 today. He will be dialyzed tomorrow. He is stable to transfer out of the Critical Care Unit. Job ID: [id number]
[2018-05-18] MEDS: Acetaminophen 325 MG TAB PO PRN (21:14)
[2018-05-18] MEDS: Melatonin 3 MG TAB PO PRN (22:25)
[2018-05-19 05:33] LABS: Anion Gap 12 mmol/L (10-20); BUN (Urea Nitrogen) 24 mg/dL (8.9-20.6); Calc. Creatinine Clearance 31 mL/min (70-130); Calcium 8.7 mg/dL (7.8-10.44); Carbon Dioxide 26 mmol/L (22-29); Chloride 97 mmol/L (98-107); Estimated GFR-MDRD 16; Glucose 92 mg/dL (70-105); Potassium 3.5 mmol/L (3.5-5.1); Sodium 131 mmol/L (136-145)
[2018-05-19 05:50] LABS: Band 4 % (5-11); Eosinophils 6 % (0-10); Hemoglobin 8.6 g/dL (14.0-18.0); Lymphocytes 40 % (21-51); MDiff Complete? YES; Mean Corpuscular HGB CONC 31.6 g/dL (32.0-36.0); Mean Corpuscular Hemoglobin 29.6 pg (27.0-31.0); Mean Corpuscular Volume 93.7 fL (78.0-98.0); Mean Platelet Volume 9.6 fL (7.4-10.4); Monocytes 9 % (0-10); Neutrophil 41 % (42-75); Platelet Count 47 thou/uL (130-400); Platelet Morphology Comment Appears Decreased; Red Blood Cell (RBC) Count 2.91 mill/uL (4.70-6.10); White Blood Cell (WBC) Count 3.1 thou/uL (4.8-10.8)
--- NOTE | 2018-05-19 08:08 | PRG ---
DATE OF SERVICE: 05/19/2018 SUBJECTIVE: Mr. Boo is a 47-year-old white male with chronic renal failure/ESRD and currently undergoing hemodialysis. Fluid removal is being tolerated at the present time. We are targeting him between 2 L and 3 L of fluid. No other complaints. He was complaining of his cough yesterday, but it has improved. He is currently on regular Tessalon and p.r.n. cough syrup with codeine. No complaints of chest pain or shortness of breath. OBJECTIVE: VITAL SIGNS: Blood pressure is 118/76, heart rate 65, respiratory rate 14, temperature 97.5, and pulse ox 99%. GENERAL: Awake, alert, comfortable, not in distress. SKIN: Adequate turgor. HEENT: Slightly pale conjunctivae. Anicteric sclerae. NECK: No neck mass. No carotid bruits. No JVD. CHEST: No deformities. LUNGS: Decreased breath sounds. HEART: Normal sinus rhythm. No murmur. No gallops. No rubs. ABDOMEN: Globular, soft, nontender. No masses. EXTREMITIES: No edema. No deformities. MEDICATIONS: Medications of May 19, 2018, was reviewed. LABORATORY DATA: Laboratories of May 19, 2018; white count 3.1, hemoglobin 8.6. Sodium 131, potassium 3.5, chloride 97, carbon dioxide 26, BUN 24, creatinine 4.07, glucose 92, and calcium 8.7. Platelet count is 47,000. ASSESSMENT AND PLAN: 1. End-stage renal failure/chronic renal failure - continuing regular dialysis with this patient. He is on a 3 times a week hemodialysis. Fluid removal only as tolerated. 2. Congestive heart failure, clinically much improved. Continue fluid removal with dialysis. 3. Cough - slightly improved this morning. Continue to observe. 4. Anemia, currently on weekly Epogen and iron supplementation - p.r.n. blood transfusion. Awaiting outpatient placement for dialysis. Job ID: [id number]
--- NOTE | 2018-05-19 09:06 | PDOC.PN ---
- Subjective Encounter Start Date: 05/19/18 Encounter Start Time: 10:20 Subjective: Patient with persistent cough. No SOB/chest pain. - Objective Resuscitation Status - Order Detail: 05/13/18 20:04 Resuscitation Status Routine Resuscitation Status: FULL: Full Resuscitation MAR Reviewed: Yes Vital Signs & Weight: Vital Signs (12 hours) Temp Pulse Resp BP Pulse Ox 05/19/18 02:50 97.5 F L 65 14 118/76 99 05/18/18 21:11 95 Weight Weight 222 lb 2 oz Most Recent Monitor Data Heart Rate from ECG 64 NIBP 95/65 NIBP BP-Mean 75 Respiration from ECG 17 SpO2 92 I&O: 05/18/18 05/19/18 05/20/18 06:59 06:59 06:59 Intake Total 1170 420 Output Total 245 0 Balance 925 420 Result Diagrams: 05/19/18 04:45 05/19/18 04:45 Phys Exam - Physical Examination Constitutional: NAD HEENT: moist MMs Respiratory: no wheezing, no rales, no rhonchi Cardiovascular: RRR Gastrointestinal: soft, positive bowel sounds Neurological: non-focal, moves all 4 limbs Psychiatric: normal affect, A&O x 3 Dx/Plan (1) Acute respiratory failure with hypoxia Code(s): J96.01 - ACUTE RESPIRATORY FAILURE WITH HYPOXIA Status: Acute Comment: requiring Bipap this hospitalization, due to volume overload, CHF and ESRD, improved and off Bipap now (2) Acute exacerbation of CHF (congestive heart failure) Code(s): I50.9 - HEART FAILURE, UNSPECIFIED Status: Acute Qualifiers: Heart failure type: combined systolic and diastolic Qualified Code(s): I50.43 - Acute on chronic combined systolic (congestive) and diastolic ( congestive) heart failure Comment: ef of 40% in 2018, class C (3) CKD (chronic kidney disease) Code(s): N18.9 - CHRONIC KIDNEY DISEASE, UNSPECIFIED Status: Chronic Qualifiers: Chronic kidney disease stage: stage 5, not on chronic dialysis Qualified Code(s): N18.5 - Chronic kidney disease, stage 5 Comment: resuming dialysis, failed trial off dialysis for 2 weeks (4) Nonischemic cardiomyopathy Code(s): I42.8 - OTHER CARDIOMYOPATHIES Status: Chronic Comment: s/p BiV AICD (5) Antiphospholipid syndrome Code(s): D68.61 - ANTIPHOSPHOLIPID SYNDROME Status: Chronic (6) Thrombocytopenia Code(s): D69.6 - THROMBOCYTOPENIA, UNSPECIFIED Status: Chronic Comment: no blood thinners (7) Anemia in chronic kidney disease Code(s): N18.9 - CHRONIC KIDNEY DISEASE, UNSPECIFIED; D63.1 - ANEMIA IN CHRONIC KIDNEY DISEASE Status: Chronic Comment: on erythropoetin - Plan cont current plan of care, PT/OT, DVT proph w/SCDs awaiting outpatient dialysis arrangements, placement * . - Discharge Day Encounter end time: 10:30
[2018-05-19] MEDS ORDERED: Heparin 1,000 UNITS/ML VIAL ONE (11:11)
[2018-05-19] MEDS: Benzonatate 100 MG CAP PO SCH ×3 (11:12→21:00)
--- NOTE | 2018-05-19 12:43 | PDOC.CTH ---
Cardiology Progress Note - Subjective The pt seen and examined. No overnight events. No cardiac complaints. - Objective Vital Signs Temp Pulse Resp BP Pulse Ox 05/19/18 11:55 98.8 F 87 18 134/72 96 05/19/18 11:13 98.2 F 71 18 152/70 H 99 05/19/18 07:05 98.2 F 66 18 105/66 99 05/19/18 02:50 97.5 F L 65 14 118/76 99 Weight 222 lb 2 oz 05/18/18 05/19/18 05/20/18 06:59 06:59 06:59 Intake Total 1170 420 Output Total 245 0 Balance 925 420 - Physical Examination General/Neuro: alert & oriented x3 Neck: no JVD present Lungs: CTA Heart: RRR Abdomen: soft Extremities: other: (No edema) - Telemetry Telemetry Rhythm: SR - Labs Result Diagrams: 05/19/18 04:45 05/19/18 04:45 Troponin/CKMB CK-MB (CK-2) 1.1 ng/mL (0-6.6) 05/13/18 18:30 Troponin I 0.465 ng/mL (< 0.028) H* 05/13/18 21:13 - Assessment/Plan 1. Acute Resp. failure 2/2 fluid overload - stable with 4LNC yesterday. 2. 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 3. Acute on CKD - managed by Dr De La Rosa 4. Afib/AFlutter with s/p DCCV in 03/2018 - remains in SR; 5. Non-ischemic CMY with s/p BiV AICD placement in 03/2018 - 6. PNA - managed by PCP/project asst 7. Antiphospolipid syndrome, chronic thrombocytopenia - No on OAC for high risk of bleeding. 8. seizure - 9. Anemia - On Epoetin MAR reviewed * Echo in 01/2018 showed EF 40-45%, grade I diastolic dysfunction, dilated LV, mod dilated LA, RVSP 40mmHg, mild MR, MS, [place] and TR. pt. seen and eval. by me. I agree with the A/P by the DIET COUNSELOR. Chest clear. RRR. He has maintained NSR. I will stop the amiodarone and see how he does. Review of Systems - Review of Systems Constitutional: reports: no symptoms reported EENTM: reports: no symptoms reported Respiratory: reports: no symptoms reported Cardiac (ROS): reports: no symptoms reported ABD/GI: reports: no symptoms reported : reports: no symptoms reported
[2018-05-19] MEDS: Carvedilol 6.25 MG TAB PO SCH ×2 (13:05→18:06)
[2018-05-19] MEDS: Amiodarone 200 MG TAB PO SCH (13:05)
[2018-05-19] MEDS: Aspirin Chewable 81 MG TAB PO SCH (13:06)
[2018-05-19] MEDS: OXcarbazepine 300 MG TAB PO SCH ×2 (13:06→21:00)
[2018-05-19] MEDS ORDERED: Senokot 8.6 MG TAB PO PRN (15:41)
[2018-05-19] MEDS ORDERED: Senokot 8.6 MG TAB PO SCH (15:45)
[2018-05-19] MEDS: guaiFENesin/Codeine Phosphate 200 mg/20 mg 10 ml UD Cup PO PRN (16:37)
--- NOTE | 2018-05-19 19:58 | PRG ---
DATE OF SERVICE: 05/19/2018 SUBJECTIVE: Hans Boo did well overnight. He has no complaints. He has an IV in his foot. OBJECTIVE: VITAL SIGNS: He is afebrile, heart rate is 60, respiratory rate is 18, oximetry is 100%, blood pressure 116/60. LUNGS: Clear. HEART: Regular rhythm. ABDOMEN: Soft. EXTREMITIES: Without edema. LABORATORY DATA: White count 3.1, hemoglobin 8.6, and platelets 47,000. Sodium 131, potassium 3.5, chloride 97, bicarb 26, BUN 24, creatinine 4.07. Intake and output is positive 420 mL. He had no urine output reported. IMPRESSION: 1. Renal failure. 2. Volume overload, improving with dialysis. 3. Poor peripheral IV access? Placement of a tunneled catheter versus an internal jugular line. His upper extremities need to be saved for dialysis access. I would discuss this with the vascular access doctors. We will continue to follow closely with the other physicians caring for him. Job ID: [id number] [facility]
[2018-05-19] MEDS: Docusate 100 MG CAP PO SCH (21:00)
[2018-05-19] MEDS: Melatonin 3 MG TAB PO PRN (21:01)
[2018-05-19] MEDS: Acetaminophen 325 MG TAB PO PRN (21:07)
[2018-05-20 05:33] LABS: Anion Gap 13 mmol/L (10-20); BUN (Urea Nitrogen) 14 mg/dL (8.9-20.6); Calc. Creatinine Clearance 48 mL/min (70-130); Calcium 8.7 mg/dL (7.8-10.44); Carbon Dioxide 27 mmol/L (22-29); Chloride 99 mmol/L (98-107); Estimated GFR-MDRD 26; Glucose 84 mg/dL (70-105); Potassium 3.9 mmol/L (3.5-5.1); Sodium 135 mmol/L (136-145)
[2018-05-20 05:38] LABS: Hemoglobin 9.2 g/dL (14.0-18.0); Mean Corpuscular HGB CONC 31.9 g/dL (32.0-36.0); Mean Corpuscular Hemoglobin 30.3 pg (27.0-31.0); Mean Corpuscular Volume 94.8 fL (78.0-98.0); Mean Platelet Volume 9.9 fL (7.4-10.4); Platelet Count 48 thou/uL (130-400); Red Blood Cell (RBC) Count 3.04 mill/uL (4.70-6.10)
[2018-05-20 05:41] LABS: Band 1 % (5-11); Hypochromia SLIGHT = 6-15 cells (100X) (0-5/hpf); Lymphocytes 21 % (21-51); Monocytes 5 % (0-10); Neutrophil 73 % (42-75); Platelet Morphology Comment Appears Decreased
[2018-05-20 05:42] LABS: MDiff Complete? YES
--- NOTE | 2018-05-20 07:05 | PRG ---
DATE OF SERVICE: 05/20/2018 SUBJECTIVE: Mr. Boo is a 47-year-old white male being followed by the Renal Service for his chronic renal failure/ESRD. Due to his volume overload, we have resumed back his regular dialysis of 3 times a week. The patient's cough is much improved. However, the is still concerned about the amiodarone pulmonary toxicity. We will discuss this with his key bed installer. The is very suspicious that the timing of his cough started with the amiodarone initiation in the past. No new complaints today. No chest pain or shortness of breath. OBJECTIVE: VITAL SIGNS: Blood pressure is 111/60, heart rate 74, respiratory rate 17, temperature 97.4, pulse ox 94%. GENERAL: Awake, alert, comfortable, not in distress. SKIN: Adequate turgor. HEENT: Slightly pale conjunctivae. Anicteric sclerae. NECK: No neck mass. No carotid bruits. No JVD. CHEST: No deformities. LUNGS: Clear breath sounds. HEART: Normal sinus rhythm. No murmur, no gallops, no rubs. ABDOMEN: Globular, soft, nontender. No masses. EXTREMITIES: No edema. No deformities. MEDICATIONS: Medications of May 20, 2018, reviewed. LABORATORY DATA: Laboratories of May 20, 2018; white count 3, hemoglobin 9.2. Sodium 135, potassium 3.9, chloride 99, carbon dioxide 27, BUN 14, creatinine 2.64, glucose 84, calcium 8.7. ASSESSMENT AND PLAN: 1. Chronic renal failure/end-stage renal disease, stable. Continuing 3 times a week hemodialysis. Fluid removal only as tolerated. 2. Congestive heart failure, clinically much improved. 3. Chronic cough-we discussed with Cardiology regarding amiodarone toxicity per request by the patient's . 4. Anemia. Continuing weekly Epogen. Continue iron supplementation. Overall, prognosis remains guarded. Agree with current management. Recheck basic metabolic profile and CBC in a.m. Job ID: [id number]
[2018-05-20] MEDS: Benzonatate 100 MG CAP PO SCH ×3 (08:11→20:56)
[2018-05-20] MEDS: Docusate 100 MG CAP PO SCH ×2 (08:11→21:02)
[2018-05-20] MEDS: Carvedilol 6.25 MG TAB PO SCH ×2 (08:11→16:40)
[2018-05-20] MEDS: Aspirin Chewable 81 MG TAB PO SCH (08:11)
[2018-05-20] MEDS: OXcarbazepine 300 MG TAB PO SCH ×2 (08:11→20:56)
--- NOTE | 2018-05-20 11:14 | PRG ---
DATE OF SERVICE: 05/20/2018 SUBJECTIVE: Hans Boo has his oxygen on his forehead when I made rounds. He is in no distress. He does not really remember yesterday, but I have seen him like this before and he does tend to improve. OBJECTIVE: VITAL SIGNS: He is afebrile, heart rate 74, respiratory rate 16, oximetry is 95%, and blood pressure is 119/56. LUNGS: Clear. HEART: Regular rhythm. S1 and S2 are normal. ABDOMEN: Soft. EXTREMITIES: Without asymmetry. He still has a dry cough. I doubt he has amiodarone hypersensitivity. IMPRESSION: 1. Volume overload while off dialysis, clinically improving every day. 2. Atrial fibrillation. Amiodarone was apparently discontinued yesterday. 3. Deconditioning. 4. Seizure disorder states secondary to status post craniotomy for seizure disorder. 5. Hypercoagulable state with an inferior vena cave filter. He still has an IV in his foot. This should either be removed or some type of long-term access placed. 6. End-stage renal disease. 7. Atrial fibrillation/atrial flutter. Currently in sinus rhythm. 8. Status post automatic implantable cardioverter-defibrillator placement at the beginning of the year. I do not feel that we are dealing with an acute pneumonia. I feel his radiographic findings are secondary to volume overload. Serial radiograph showed improvement with dialysis. Diastolic dysfunction with improved ejection fraction of 40% to 45% in the last year. PLAN: 1. Continue current care. 2. Medications have been reviewed. We will increase his Tessalon to 200 mg 3 times a day since he is still complaining of a cough. Job ID: [id number]
--- NOTE | 2018-05-20 14:46 | PDOC.CTH ---
Cardiology Progress Note - Subjective The pt seen and examined. No overnight events. No cardiac complaints. - Objective Vital Signs Temp Pulse Resp BP Pulse Ox 05/20/18 11:15 98.0 F 67 15 105/42 L 100 05/20/18 07:00 97.8 F 74 16 119/56 L 95 05/20/18 04:00 97.4 F L 74 17 111/60 94 L Weight 215 lb 4.8 oz 05/19/18 05/20/18 05/21/18 06:59 06:59 06:59 Intake Total 420 240 Output Total 0 2000 Balance 420 -1760 - Physical Examination General/Neuro: alert & oriented x3 Neck: no JVD present Lungs: other: (diminished at bases) Heart: RRR Abdomen: soft Extremities: other: (No edema) - Telemetry Telemetry Rhythm: SR - Labs Result Diagrams: 05/20/18 04:33 05/20/18 04:33 Troponin/CKMB CK-MB (CK-2) 1.1 ng/mL (0-6.6) 05/13/18 18:30 Troponin I 0.465 ng/mL (< 0.028) H* 05/13/18 21:13 - Assessment/Plan 1. Acute Resp. failure 2/2 fluid overload - stable with 4LNC. 2. 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 On Coreg. Not on DAVID/ARB 2/2 CKD 3. Acute on CKD - managed by Dr De La Rosa 4. Afib/AFlutter with s/p DCCV in 03/2018 - remains in SR; Off Amiodarone due to complaining of chronic cough by the medication. 5. Non-ischemic CMY with s/p BiV AICD placement in 03/2018 - 6. PNA - managed by PCP/die cleaner 7. Antiphospolipid syndrome, chronic thrombocytopenia - No on OAC for high risk of bleeding. 8. seizure - 9. Anemia - On Epoetin MAR reviewed * Echo in 01/2018 showed EF 40-45%, grade I diastolic dysfunction, dilated LV, mod dilated LA, RVSP 40mmHg, mild MR, MS, OR and TR. Pt. seen and eval. by me. I agree with the A/P by the AUDIOLOGY ASSISTANT.he seems better today and is almost back to is baseline. Review of Systems - Review of Systems Constitutional: reports: no symptoms reported EENTM: reports: no symptoms reported Respiratory: reports: no symptoms reported Cardiac (ROS): reports: no symptoms reported ABD/GI: reports: no symptoms reported : reports: no symptoms reported Musculoskeletal: reports: no symptoms reported
--- NOTE | 2018-05-20 16:08 | PDOC.PN ---
- Subjective Encounter Start Date: 05/20/18 Encounter Start Time: 16:06 Patient seen and examined, no new issues or complaints. - Objective Resuscitation Status - Order Detail: 05/13/18 20:04 Resuscitation Status Routine Resuscitation Status: FULL: Full Resuscitation Vital Signs & Weight: Vital Signs (12 hours) Temp Pulse Resp BP Pulse Ox 05/20/18 15:05 97.8 F 72 16 125/55 L 100 05/20/18 11:15 98.0 F 67 15 105/42 L 100 05/20/18 07:00 97.8 F 74 16 119/56 L 95 Weight Weight 215 lb 4.8 oz Most Recent Monitor Data Heart Rate from ECG 64 NIBP 95/65 NIBP BP-Mean 75 Respiration from ECG 17 SpO2 92 I&O: 05/19/18 05/20/18 05/21/18 06:59 06:59 06:59 Intake Total 420 240 Output Total 0 2000 Balance 420 -1760 Result Diagrams: 05/20/18 04:33 05/20/18 04:33 Phys Exam - Physical Examination Constitutional: NAD HEENT: PERRLA, moist MMs, sclera anicteric Neck: no nodes, no JVD, supple Respiratory: no wheezing, no rales, no rhonchi Cardiovascular: RRR, no significant murmur, no rub Gastrointestinal: soft, non-tender, no distention, positive bowel sounds Musculoskeletal: pulses present, edema present (trace) Dx/Plan (1) Acute exacerbation of CHF (congestive heart failure) Code(s): I50.9 - HEART FAILURE, UNSPECIFIED Status: Acute Qualifiers: Heart failure type: combined systolic and diastolic Qualified Code(s): I50.43 - Acute on chronic combined systolic (congestive) and diastolic ( congestive) heart failure Comment: ef of 40% in 2018, class C (2) End stage renal disease on dialysis Code(s): N18.6 - END STAGE RENAL DISEASE; Z99.2 - DEPENDENCE ON RENAL DIALYSIS Status: Chronic (3) Physical deconditioning Code(s): R53.81 - OTHER MALAISE Status: Chronic (4) Fluid overload Code(s): E87.70 - FLUID OVERLOAD, UNSPECIFIED Status: Acute - Plan * HD tmrw * DC tmrw after HD * case and plan d/w patient at [facility], he understood and agreed with this plan
[2018-05-21 05:38] LABS: Band 4 % (5-11); Eosinophils 6 % (0-10); Hemoglobin 9.3 g/dL (14.0-18.0); Lymphocytes 22 % (21-51); MDiff Complete? YES; Mean Corpuscular HGB CONC 32.1 g/dL (32.0-36.0); Mean Corpuscular Hemoglobin 29.9 pg (27.0-31.0); Mean Corpuscular Volume 92.9 fL (78.0-98.0); Mean Platelet Volume 9.6 fL (7.4-10.4); Monocytes 7 % (0-10); Neutrophil 57 % (42-75); Platelet Count 55 thou/uL (130-400); Platelet Morphology Comment Appears Decreased; RBC Distribution Width 14.1 % (11.5-14.5); RBC Morphology Normal; Reactive Lymphocytes 3 % (0-10); Red Blood Cell (RBC) Count 3.11 mill/uL (4.70-6.10); White Blood Cell (WBC) Count 3.3 thou/uL (4.8-10.8)
[2018-05-21 05:46] LABS: Anion Gap 12 mmol/L (10-20); BUN (Urea Nitrogen) 24 mg/dL (8.9-20.6); Calc. Creatinine Clearance 42 mL/min (70-130); Calcium 8.7 mg/dL (7.8-10.44); Carbon Dioxide 28 mmol/L (22-29); Chloride 97 mmol/L (98-107); Estimated GFR-MDRD 22; Glucose 85 mg/dL (70-105); Potassium 3.8 mmol/L (3.5-5.1); Sodium 133 mmol/L (136-145)
--- NOTE | 2018-05-21 10:47 | PDOC.PN ---
- Subjective Encounter Start Date: 05/21/18 Encounter Start Time: 10:45 Patient seen and examined, no new issues or complaints. All questions answered, no family at bedside. - Objective Resuscitation Status - Order Detail: 05/13/18 20:04 Resuscitation Status Routine Resuscitation Status: FULL: Full Resuscitation Vital Signs & Weight: Vital Signs (12 hours) Temp Pulse Resp BP Pulse Ox 05/21/18 07:45 100 05/21/18 04:00 97.7 F 79 17 136/63 97 Weight Weight 220 lb Most Recent Monitor Data Heart Rate from ECG 64 NIBP 95/65 NIBP BP-Mean 75 Respiration from ECG 17 SpO2 92 I&O: 05/20/18 05/21/18 05/22/18 06:59 06:59 06:59 Intake Total 240 480 Output Total 1999 Balance -1760 480 Result Diagrams: 05/21/18 04:59 05/21/18 04:59 Phys Exam - Physical Examination Constitutional: NAD HEENT: PERRLA, moist MMs, sclera anicteric Neck: no nodes, no JVD, supple Respiratory: no wheezing, no rales, no rhonchi Cardiovascular: RRR, no significant murmur, no rub Gastrointestinal: soft, non-tender, no distention Musculoskeletal: no edema, pulses present Dx/Plan (1) Acute exacerbation of CHF (congestive heart failure) Code(s): I50.9 - HEART FAILURE, UNSPECIFIED Status: Acute Qualifiers: Heart failure type: combined systolic and diastolic Qualified Code(s): I50.43 - Acute on chronic combined systolic (congestive) and diastolic ( congestive) heart failure Comment: ef of 40% in 2018, class C (2) End stage renal disease on dialysis Code(s): N18.6 - END STAGE RENAL DISEASE; Z99.2 - DEPENDENCE ON RENAL DIALYSIS Status: Chronic (3) Physical deconditioning Code(s): R53.81 - OTHER MALAISE Status: Chronic (4) Fluid overload Code(s): E87.70 - FLUID OVERLOAD, UNSPECIFIED Status: Acute - Plan * Patient accepted to [facility] but now he doesn't want to go there because its in [place] and [place] * HD being done for now * CM aware of patient's decision, working diligently to locate new facility * DC once placement is arranged and patient agreeable with location * no changes in plan of care for now * case and plan d/w patient at length, he understood and agreed with this plan.
[2018-05-21] MEDS: Benzonatate 100 MG CAP PO SCH ×3 (11:05→19:57)
--- NOTE | 2018-05-21 11:07 | PRG ---
DATE OF SERVICE: 05/21/2018 SUBJECTIVE: Mr. Boo is a 47-year-old white male with chronic renal failure/ESRD and being followed by the [facility] for his maintenance hemodialysis. He is currently undergoing dialysis. No other complaints. Due to the persistent cough, his amiodarone has been discontinued by his grief counsellor. No other complaints today. No chest pain or shortness of breath. OBJECTIVE: VITAL SIGNS: Blood pressure 136/63, heart rate 79, respiratory rate 17, temperature 97.7, and pulse ox 97%. GENERAL: Awake, alert, comfortable, not in distress. SKIN: Adequate turgor. HEENT: Slightly pale conjunctivae. Anicteric sclerae. NECK: No neck mass. No carotid bruits. No JVD. CHEST: No deformities. LUNGS: Decreased breath sounds. HEART: Normal sinus rhythm. No murmurs, gallops, or rubs. ABDOMEN: Globular, soft, nontender. No masses. EXTREMITIES: No edema. MEDICATIONS: Medications of May 21, 2018, reviewed. LABORATORY DATA: Laboratories of May 21, 2018; white count 3.3, hemoglobin 9.3, platelet count is 55,000. Sodium 133, potassium 3.8, chloride 97, carbon dioxide 28, BUN 24, creatinine 3.09, calcium 8.7. ASSESSMENT AND PLAN: 1. Congestive heart failure, clinically much improved with fluid removal with dialysis. 2. End-stage renal disease/chronic renal failure - continuing three times a week hemodialysis. Again, fluid removal only as tolerated. 3. Chronic cough - amiodarone has been discontinued. 4. Anemia. Continuing weekly Epogen. 5. Agree with current management. Job ID: [id number]
[2018-05-21] MEDS ORDERED: Heparin 1,000 UNITS/ML VIAL ONE (11:11)
[2018-05-21] MEDS ORDERED: Sodium Chloride 0.9% 10 ML ONE (12:33)
[2018-05-21] MEDS: Ondansetron PF 4 MG/2 ML Vial IVP PRN (12:34)
--- NOTE | 2018-05-21 13:11 | PRG ---
DATE OF SERVICE: 05/21/2018 SUBJECTIVE: He is complaining about being nauseated from using amiodarone earlier today. OBJECTIVE: VITAL SIGNS: Temperature 97.8, pulse 74, respirations 16, O2 saturation 100% on room air, and blood pressure 135/63. HEENT: Unremarkable. NECK: No JVD. CHEST: Clear anteriorly. CARDIAC: S1 and S2, regular. ABDOMEN: Soft. EXTREMITIES: No edema. LABORATORY DATA: White blood cell count 3.3, hematocrit 28.8, and platelet count 55. Sodium 133, potassium 3.8, BUN 24, and creatinine 3.1. ASSESSMENT: 1. Stable pulmonary status. 2. Volume overload. 3. End-stage renal disease. 4. Atrial fibrillation/flutter. PLAN: Respiratory status is currently stable. Low-flow oxygen. Further treatment on arrhythmia as per Cardiology. Job ID: [id number]
[2018-05-21] MEDS: Carvedilol 6.25 MG TAB PO SCH ×2 (14:56→16:30)
[2018-05-21] MEDS: Aspirin Chewable 81 MG TAB PO SCH (14:56)
[2018-05-21] MEDS: Docusate 100 MG CAP PO SCH ×2 (14:57→19:57)
[2018-05-21] MEDS: OXcarbazepine 300 MG TAB PO SCH ×2 (14:57→19:58)
[2018-05-21] MEDS ORDERED: Heparin 10,000 UNITS/ 10 ML VIAL ONE (17:59)
[2018-05-21] MEDS: guaiFENesin/Codeine Phosphate 200 mg/20 mg 10 ml UD Cup PO PRN (19:59)
[2018-05-21] MEDS: Acetaminophen 325 MG TAB PO PRN (19:59)
[2018-05-21] MEDS: Melatonin 3 MG TAB PO PRN (19:59)
[2018-05-22 06:37] LABS: Anion Gap 9 mmol/L (10-20); BUN (Urea Nitrogen) 15 mg/dL (8.9-20.6); Band 2 % (5-11); Calc. Creatinine Clearance 49 mL/min (70-130); Calcium 8.5 mg/dL (7.8-10.44); Carbon Dioxide 30 mmol/L (22-29); Chloride 97 mmol/L (98-107); Estimated GFR-MDRD 28; Glucose 79 mg/dL (70-105); Hemoglobin 8.6 g/dL (14.0-18.0); Hypochromia SLIGHT = 6-15 cells (100X) (0-5/hpf); Lymphocytes 36 % (21-51); MDiff Complete? YES; Mean Corpuscular HGB CONC 31.5 g/dL (32.0-36.0); Mean Corpuscular Hemoglobin 29.8 pg (27.0-31.0); Mean Corpuscular Volume 94.5 fL (78.0-98.0); Mean Platelet Volume 10.4 fL (7.4-10.4); Monocytes 4 % (0-10); Neutrophil 58 % (42-75); Platelet Count 34 thou/uL (130-400); Platelet Morphology Comment Appears Decreased; Potassium 4.1 mmol/L (3.5-5.1); Red Blood Cell (RBC) Count 2.88 mill/uL (4.70-6.10); Sodium 132 mmol/L (136-145); White Blood Cell (WBC) Count 3.2 thou/uL (4.8-10.8)
[2018-05-22] MEDS: Benzonatate 100 MG CAP PO SCH ×3 (08:16→20:55)
[2018-05-22] MEDS: OXcarbazepine 300 MG TAB PO SCH ×2 (08:16→20:56)
[2018-05-22] MEDS: Aspirin Chewable 81 MG TAB PO SCH (08:16)
[2018-05-22] MEDS: Docusate 100 MG CAP PO SCH ×2 (08:17→20:57)
[2018-05-22] MEDS: Carvedilol 6.25 MG TAB PO SCH ×2 (08:17→16:00)
--- NOTE | 2018-05-22 10:34 | PRG ---
DATE OF SERVICE: 05/22/2018 SUBJECTIVE: Mr. Boo is a 47-year-old white male with chronic renal failure and currently now has ESRD. He was initially admitted for volume overload. His dialysis was stopped for two weeks, but he became volume overloaded. For that reason, he was resumed back on his dialysis. In the interim, he has been complaining of a cough. His amiodarone has been discontinued by his blast furnace blower. He remains in sinus rhythm. No new complaints today. His coughing has improved. OBJECTIVE: VITAL SIGNS: Blood pressure is 134/85, heart rate 68, respiratory rate 16, temperature 97.3, and pulse ox 95%. GENERAL: Noted to be awake, alert, supine, comfortable, not in distress. SKIN: Adequate turgor. HEENT: Slightly pale conjunctivae. Anicteric sclerae. No neck mass. No carotid bruits. No JVD. CHEST: No deformities. LUNGS: Clear breath sounds. HEART: Normal sinus rhythm. No murmur. No gallops. No rubs. ABDOMEN: Globular, soft, and nontender. No masses. EXTREMITIES: No edema. No deformities. MEDICATIONS: Medications of May 22, 2018, reviewed. LABORATORY DATA: Laboratories of May 22, 2018; white count 3.2, hemoglobin 8.6. Sodium 132, potassium 4.1, chloride 97, carbon dioxide 30, BUN 15, creatinine 2.5, GFR 28 mL/minute. Calcium 8.5. ASSESSMENT AND PLAN: 1. Congestive heart failure, clinically much improved. Continue fluid removal with dialysis. He did receive dialysis yesterday without any difficulty. 2. Anemia. We will increase Epogen to 10,000 units subcu every week. 3. Chronic cough, improved, on Tessalon Perles and amiodarone has been discontinued. Overall, prognosis remains guarded. Agree with current management. Job ID: [id number]
[2018-05-22] MEDS ORDERED: Epoetin (ESRD) 20,000 UNITS/ML SC SCH (11:00)
--- NOTE | 2018-05-22 11:00 | PRG ---
DATE OF SERVICE: 05/22/2018 SUBJECTIVE: The patient is doing reasonably well today and had no complaints. OBJECTIVE: VITAL SIGNS: His temperature is 97.3, pulse 68, blood pressure 134/85, and O2 saturation 95% on 2 L. HEENT: Unremarkable. NECK: No JVD. CHEST: Clear. CARDIAC: S1 and S2, regular. ABDOMEN: Soft. EXTREMITIES: No edema. LABORATORY DATA: White blood cell count 3.2, hematocrit 27.2, and platelet count 34. Sodium 132, potassium 4.1, BUN 15, creatinine 2.5, and glucose 79. ASSESSMENT: 1. Stable pulmonary status. 2. Improved volume overload. 3. Severe thrombocytopenia. 4. Atrial flutter/fibrillation. PLAN: The patient is to continue low-flow oxygen. Intermittent dialysis as needed. No new pulmonary recommendations at this time. Job ID: [id number]
[2018-05-22] MEDS: Melatonin 3 MG TAB PO PRN (20:56)
[2018-05-22] MEDS: Acetaminophen 325 MG TAB PO PRN (20:57)
[2018-05-22] MEDS: guaiFENesin/Codeine Phosphate 200 mg/20 mg 10 ml UD Cup PO PRN (20:57)
[2018-05-23 06:35] LABS: Band 4 % (5-11); Eosinophils 3 % (0-10); Hemoglobin 8.6 g/dL (14.0-18.0); Lymphocytes 23 % (21-51); MDiff Complete? YES; Mean Corpuscular HGB CONC 32.2 g/dL (32.0-36.0); Mean Corpuscular Hemoglobin 30.1 pg (27.0-31.0); Mean Corpuscular Volume 93.4 fL (78.0-98.0); Mean Platelet Volume 10.2 fL (7.4-10.4); Metamyelocyte 1 % (0-0); Monocytes 10 % (0-10); Neutrophil 59 % (42-75); Platelet Count 41 thou/uL (130-400); Platelet Morphology Comment Appears Decreased; Red Blood Cell (RBC) Count 2.87 mill/uL (4.70-6.10); White Blood Cell (WBC) Count 3.5 thou/uL (4.8-10.8)
[2018-05-23 06:40] LABS: Anion Gap 13 mmol/L (10-20); BUN (Urea Nitrogen) 25 mg/dL (8.9-20.6); Calc. Creatinine Clearance 39 mL/min (70-130); Calcium 8.7 mg/dL (7.8-10.44); Carbon Dioxide 27 mmol/L (22-29); Chloride 95 mmol/L (98-107); Estimated GFR-MDRD 20; Glucose 95 mg/dL (70-105); Potassium 3.9 mmol/L (3.5-5.1); Sodium 131 mmol/L (136-145)
[2018-05-23] MEDS: Docusate 100 MG CAP PO SCH ×2 (07:44→20:09)
[2018-05-23] MEDS: Benzonatate 100 MG CAP PO SCH ×3 (07:44→20:08)
[2018-05-23] MEDS: Aspirin Chewable 81 MG TAB PO SCH (07:45)
[2018-05-23] MEDS: Carvedilol 6.25 MG TAB PO SCH ×2 (09:14→17:05)
[2018-05-23] MEDS: OXcarbazepine 300 MG TAB PO SCH ×2 (09:15→20:09)
--- NOTE | 2018-05-23 09:27 | PDOC.PN ---
- Subjective Encounter Start Date: 05/23/18 Encounter Start Time: 12:10 Subjective: Patient without new complaint. Chronic cough, maybe a little better since -: stopping the Amiodarone. No CP. No SOB. - Objective Resuscitation Status - Order Detail: 05/13/18 20:04 Resuscitation Status Routine Resuscitation Status: FULL: Full Resuscitation MAR Reviewed: Yes Vital Signs & Weight: Vital Signs (12 hours) Temp Pulse Resp BP BP Pulse Ox 05/23/18 09:14 106/73 05/23/18 08:00 99 05/23/18 07:43 97.3 F L 67 16 106/73 99 Weight Weight 221 lb 9.6 oz Most Recent Monitor Data Heart Rate from ECG 64 NIBP 95/65 NIBP BP-Mean 75 Respiration from ECG 17 SpO2 92 I&O: 05/22/18 05/23/18 05/24/18 06:59 06:59 06:59 Intake Total 260 150 Output Total 50 Balance 260 100 Result Diagrams: 05/23/18 04:56 05/23/18 04:56 Phys Exam - Physical Examination Constitutional: NAD HEENT: moist MMs Respiratory: no wheezing, no rales, no rhonchi Cardiovascular: RRR Gastrointestinal: soft, positive bowel sounds Musculoskeletal: no edema Neurological: non-focal Psychiatric: normal affect, A&O x 3 Dx/Plan (1) Acute respiratory failure with hypoxia Code(s): J96.01 - ACUTE RESPIRATORY FAILURE WITH HYPOXIA Status: Acute Comment: requiring Bipap this hospitalization, due to volume overload, CHF and ESRD, improved and off Bipap now (2) Acute exacerbation of CHF (congestive heart failure) Code(s): I50.9 - HEART FAILURE, UNSPECIFIED Status: Acute Qualifiers: Heart failure type: combined systolic and diastolic Qualified Code(s): I50.43 - Acute on chronic combined systolic (congestive) and diastolic ( congestive) heart failure Comment: ef of 40% in 2018, class C (3) CKD (chronic kidney disease) Code(s): N18.9 - CHRONIC KIDNEY DISEASE, UNSPECIFIED Status: Chronic Qualifiers: Chronic kidney disease stage: stage 5, not on chronic dialysis Qualified Code(s): N18.5 - Chronic kidney disease, stage 5 Comment: resuming dialysis, failed trial off dialysis for 2 weeks (4) Nonischemic cardiomyopathy Code(s): I42.8 - OTHER CARDIOMYOPATHIES Status: Chronic Comment: s/p BiV AICD (5) Antiphospholipid syndrome Code(s): D68.61 - ANTIPHOSPHOLIPID SYNDROME Status: Chronic (6) Thrombocytopenia Code(s): D69.6 - THROMBOCYTOPENIA, UNSPECIFIED Status: Chronic Comment: no blood thinners (7) Anemia in chronic kidney disease Code(s): N18.9 - CHRONIC KIDNEY DISEASE, UNSPECIFIED; D63.1 - ANEMIA IN CHRONIC KIDNEY DISEASE Status: Chronic Comment: on erythropoetin - Plan cont current plan of care, PT/OT cough improved off amiodarone -: awaiting SNF placement * . - Discharge Day Encounter end time: 12:20
--- NOTE | 2018-05-23 13:30 | PRG ---
DATE OF SERVICE: 05/23/2018 GENERAL: Mr. Boo remains afebrile. VITAL SIGNS: Heart rate 60, blood pressure 106/73, respiratory rate is 20, oximetry is 99 on room air, blood pressure is 126/74. LUNGS: Clear. HEART: Regular rhythm. ABDOMEN: Soft. IMPRESSION: 1. Volume overload, resolved. 2. Atrial fibrillation and atrial flutter. 3. History of craniectomy for seizure disorder with transient control of his seizures after that surgery. 4. Hypercoagulable state with an inferior vena cava filter in place. 5. End-stage renal disease with a tunneled catheter in place and failed peripheral access for dialysis. 6. Status post defibrillator placement in the past. PLAN: Continue with supportive care. Appears to be clinically stable. Job ID: [id number] [facility]
--- NOTE | 2018-05-23 15:10 | PDOC.CTH ---
Cardiology Progress Note - Subjective The pt seen and examined. No overnight events. No cardiac complaints. - Objective Vital Signs Temp Pulse Resp BP BP Pulse Ox 05/23/18 11:00 97.4 F L 60 20 126/74 99 05/23/18 09:14 106/73 05/23/18 08:00 99 05/23/18 07:43 97.3 F L 67 16 106/73 99 Weight 221 lb 9.6 oz 05/22/18 05/23/18 05/24/18 06:59 06:59 06:59 Intake Total 260 150 Output Total 50 Balance 260 100 - Physical Examination General/Neuro: alert & oriented x3 Neck: no JVD present Lungs: CTA Heart: RRR Abdomen: soft Extremities: other: (No edema) - Labs Result Diagrams: 05/23/18 04:56 05/23/18 04:56 Troponin/CKMB CK-MB (CK-2) 1.1 ng/mL (0-6.6) 05/13/18 18:30 Troponin I 0.465 ng/mL (< 0.028) H* 05/13/18 21:13 - Assessment/Plan 1. Acute Resp. failure 2/2 fluid overload - stable with 4LNC. 2. 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 On Coreg. Not on DAVID/ARB 2/2 CKD 3. Acute on CKD - managed by Dr De La Rosa 4. Afib/AFlutter with s/p DCCV in 03/2018 - remains in SR; Off Amiodarone due to complaining of chronic cough by the medication. 5. Non-ischemic CMY with s/p BiV AICD placement in 03/2018 - 6. PNA - managed by PCP/motor adjuster 7. Antiphospolipid syndrome, chronic thrombocytopenia - No on OAC for high risk of bleeding. 8. seizure - 9. Anemia - On Epoetin MAR reviewed * Echo in 01/2018 showed EF 40-45%, grade I diastolic dysfunction, dilated LV, mod dilated LA, RVSP 40mmHg, mild MR, MS, NC and TR. I agree with the A/P by the FISHER TRAWL NET. His cardiac status is stable. Chest clear. RRR. No edema. I will sign off. Review of Systems - Review of Systems Constitutional: reports: no symptoms reported EENTM: reports: no symptoms reported Respiratory: reports: no symptoms reported Cardiac (ROS): reports: no symptoms reported ABD/GI: reports: no symptoms reported : reports: no symptoms reported Skin: reports: no symptoms reported
[2018-05-23] MEDS: guaiFENesin/Codeine Phosphate 200 mg/20 mg 10 ml UD Cup PO PRN (20:16)
[2018-05-23] MEDS: Melatonin 3 MG TAB PO PRN (21:12)
[2018-05-24 07:58] LABS: Hemoglobin 8.6 g/dL (14.0-18.0); Mean Corpuscular HGB CONC 32.2 g/dL (32.0-36.0); Mean Corpuscular Hemoglobin 29.8 pg (27.0-31.0); Mean Corpuscular Volume 92.6 fL (78.0-98.0); Mean Platelet Volume 9.7 fL (7.4-10.4); Platelet Count 49 thou/uL (130-400); RBC Distribution Width 13.8 % (11.5-14.5); Red Blood Cell (RBC) Count 2.87 mill/uL (4.70-6.10); White Blood Cell (WBC) Count 2.9 thou/uL (4.8-10.8)
[2018-05-24 08:03] LABS: Anion Gap 13 mmol/L (10-20); BUN (Urea Nitrogen) 29 mg/dL (8.9-20.6); Calc. Creatinine Clearance 40 mL/min (70-130); Calcium 8.6 mg/dL (7.8-10.44); Carbon Dioxide 26 mmol/L (22-29); Chloride 96 mmol/L (98-107); Estimated GFR-MDRD 20; Glucose 89 mg/dL (70-105); Potassium 4.1 mmol/L (3.5-5.1); Sodium 131 mmol/L (136-145)
[2018-05-24 09:05] LABS: Band 5 % (5-11); Eosinophils 4 % (0-10); Lymphocytes 37 % (21-51); MDiff Complete? YES; Metamyelocyte 1 % (0-0); Monocytes 11 % (0-10); Myelocyte 1 % (0-0); Neutrophil 40 % (42-75); Platelet Morphology Comment Appears Decreased; Polychromasia SLIGHT = 2-3 cells (100X) (0-2/hpf)
--- NOTE | 2018-05-24 09:20 | PRG ---
DATE OF SERVICE: 05/24/2018 SUBJECTIVE: Mr. Boo is a 47-year-old white male with chronic renal failure/ESRD and currently undergoing hemodialysis. I am at the bedside supervising his dialysis. He is tolerating said treatment. We are attempting fluid removal only as tolerated. Recently, his amiodarone has been discontinued due to persistent cough. His cough is said to be slightly improved. He denies any chest pain or shortness of breath. OBJECTIVE: VITAL SIGNS: Blood pressure is 139/77, heart rate 70, respiratory rate 20, temperature 97.4, and pulse ox 92%. GENERAL: Awake, alert, supine, comfortable, not in overt distress. SKIN: Adequate turgor. HEENT: Slightly pale conjunctivae. Anicteric sclerae. NECK: No neck mass. No carotid bruits. No JVD. CHEST: No deformities. LUNGS: Clear breath sounds. HEART: Normal sinus rhythm. No murmur. No gallops. No rubs. ABDOMEN: Globular, soft, and nontender. No masses. EXTREMITIES: No edema. No deformities. MEDICATIONS: Medications of May 24, 2018, was reviewed. LABORATORY DATA: Laboratories of May 24, 2018; white count 2.9 and hemoglobin 8.6. Sodium 131, potassium 4.1, chloride 96, carbon dioxide 26, BUN 29, and creatinine 3.27. ASSESSMENT AND PLAN: 1. Congestive heart failure, clinically much improved with hemodialysis. The patient is currently now on maintenance hemodialysis. 2. Chronic cough - slightly improved. Currently off amiodarone. 3. Cardiac arrhythmia, stable. On Coreg. 4. Anemia. Continuing weekly Epogen and iron supplementation with this patient. 5. Chronic thrombocytopenia. Consider Hematology consult as an inpatient versus outpatient. Overall, agree with current management. Job ID: [id number]
--- NOTE | 2018-05-24 09:40 | PDOC.PN ---
- Subjective Encounter Start Date: 05/24/18 Encounter Start Time: 11:50 Subjective: Patient reports cough improved. Appetite good. No SOB/Chest pain. - Objective Resuscitation Status - Order Detail: 05/13/18 20:04 Resuscitation Status Routine Resuscitation Status: FULL: Full Resuscitation MAR Reviewed: Yes Vital Signs & Weight: Vital Signs (12 hours) Temp Pulse Resp BP BP Pulse Ox 05/24/18 07:45 92 L 05/24/18 07:24 97.4 F L 70 20 139/77 92 L 05/24/18 04:00 97.6 F 71 20 170/75 H 96 05/24/18 03:33 150/85 H 05/24/18 00:00 97.7 F 68 20 179/69 H 98 Weight Weight 223 lb 9.6 oz Most Recent Monitor Data Heart Rate from ECG 64 NIBP 95/65 NIBP BP-Mean 75 Respiration from ECG 17 SpO2 92 I&O: 05/23/18 05/24/18 05/25/18 06:59 06:59 06:59 Intake Total 150 150 Output Total 50 80 Balance 100 70 Result Diagrams: 05/24/18 07:00 05/24/18 07:00 Phys Exam - Physical Examination Constitutional: NAD HEENT: moist MMs Respiratory: no wheezing, no rales, no rhonchi Cardiovascular: RRR Gastrointestinal: soft, positive bowel sounds Neurological: non-focal, moves all 4 limbs Psychiatric: normal affect, A&O x 3 Dx/Plan (1) Acute respiratory failure with hypoxia Code(s): J96.01 - ACUTE RESPIRATORY FAILURE WITH HYPOXIA Status: Acute Comment: requiring Bipap this hospitalization, due to volume overload, CHF and ESRD, improved and off Bipap now (2) Acute exacerbation of CHF (congestive heart failure) Code(s): I50.9 - HEART FAILURE, UNSPECIFIED Status: Acute Qualifiers: Heart failure type: combined systolic and diastolic Qualified Code(s): I50.43 - Acute on chronic combined systolic (congestive) and diastolic ( congestive) heart failure Comment: ef of 40% in 2018, class C (3) CKD (chronic kidney disease) Code(s): N18.9 - CHRONIC KIDNEY DISEASE, UNSPECIFIED Status: Chronic Qualifiers: Chronic kidney disease stage: stage 5, not on chronic dialysis Qualified Code(s): N18.5 - Chronic kidney disease, stage 5 Comment: resuming dialysis, failed trial off dialysis for 2 weeks (4) Nonischemic cardiomyopathy Code(s): I42.8 - OTHER CARDIOMYOPATHIES Status: Chronic Comment: s/p BiV AICD (5) Antiphospholipid syndrome Code(s): D68.61 - ANTIPHOSPHOLIPID SYNDROME Status: Chronic (6) Thrombocytopenia Code(s): D69.6 - THROMBOCYTOPENIA, UNSPECIFIED Status: Chronic Comment: no blood thinners (7) Anemia in chronic kidney disease Code(s): N18.9 - CHRONIC KIDNEY DISEASE, UNSPECIFIED; D63.1 - ANEMIA IN CHRONIC KIDNEY DISEASE Status: Chronic Comment: on erythropoetin - Plan cont current plan of care, PT/OT awaiting SNF placement * . - Discharge Day Encounter end time: 12:00
[2018-05-24] MEDS: Aspirin Chewable 81 MG TAB PO SCH (13:08)
[2018-05-24] MEDS: Docusate 100 MG CAP PO SCH (13:08)
[2018-05-24] MEDS: OXcarbazepine 300 MG TAB PO SCH (13:08)
[2018-05-24] MEDS: Carvedilol 6.25 MG TAB PO SCH ×2 (13:09→16:06)
[2018-05-24] MEDS: Benzonatate 100 MG CAP PO SCH ×2 (13:09→16:05)
[2018-05-24 13:14] VITALS: BP 141/87; TEMP 98
[2018-05-24] MEDS ORDERED: Heparin 10,000 UNITS/ 10 ML VIAL ONE (15:00)
--- NOTE | 2018-05-24 15:45 | PRG ---
DATE OF SERVICE: 05/24/2018 SUBJECTIVE: Hans Boo is in no distress. He says he is going home today. OBJECTIVE: VITAL SIGNS: He is afebrile, heart rate is 80, blood pressure 156/84, respiratory rate is 14, oximetry is 100% on a liter and half. LUNGS: Clear. HEART: Regular rhythm. S1 and S2 normal. ABDOMEN: Soft and nontender. IMPRESSION: 1. Status post volume overload with emergent hemodialysis. 2. Cough, resolved with adequate removal of extravascular volume. 3. Congestive heart failure. 4. Chronic kidney disease, on dialysis with a tunneled catheter. 5. History of hypercoagulable state with a filter in place. 6. History of atrial fibrillation and atrial flutter. 7. History of craniotomy for seizure disorder, with transient control of seizures. His does a great job of caring for him since his surgery. He has not been as intellectually quick as he was before the surgery. We will sign off. Job ID: [id number]
[2018-05-24] MEDS: Acetaminophen 325 MG TAB PO PRN (16:10)
--- NOTE | 2018-05-24 20:50 | DIS ---
DATE OF ADMISSION: 05/14/2018 DATE OF DISCHARGE: 05/24/2018 PRIMARY CARE PHYSICIAN: Rossana Blanc MD REASON FOR ADMISSION: Cough and shortness of breath. DIAGNOSES AT DISCHARGE: 1. Acute hypoxic respiratory failure, resolved. 2. Acute exacerbation of combined systolic and diastolic congestive heart failure class C. Ejection fraction 40%. 3. End-stage renal disease, on dialysis. 4. Nonischemic cardiomyopathy, status post biventricular AICD. 5. Antiphospholipid syndrome. 6. Thrombocytopenia. 7. Anemia of chronic disease. PROCEDURES: CT of the brain without contrast showing no acute intracranial abnormalities, just stable postoperative changes from the previous right-sided craniotomy. CONSULTATIONS: 1. Nephrology, Dr. Westfall for Dr. De La Rosa. 2. Cardiology, Dr. Jefferson. 3. Pulmonology, Dr. Olson. SUMMARY OF HOSPITAL COURSE: This is a 47-year-old white male with a past medical history of end-stage renal disease, previously on hemodialysis and had been doing a whole lot better, so they tried him off hemodialysis for a couple of weeks. He had increasing cough and shortness of breath at home, and was found to be hypoxic on room air in the emergency room. Chest x-ray showed pulmonary vascular congestion and edema. He was also found to have an elevated troponin and uncontrolled hypertension. The patient was admitted to the hospital. Dr. Westfall was consulted for Dr. De La Rosa and Dr. De La Rosa eventually took him to dialysis. The patient did have respiratory failure during his hospitalization, requiring BiPAP. Dr. Olson was consulted after emergency dialysis with removal of several liters of fluid. The patient's respiratory status improved. He was eventually able to be taken off BiPAP, admitted back to the floor. The patient had resumption of normal dialysis with resolution of his uncontrolled hypertension and his shortness of breath and hypoxia. He did have a persistence of cough and so amiodarone that had been started for his atrial fibrillation was discontinued. The patient did remain in normal sinus rhythm throughout much of his hospitalization. The patient improved during his hospitalization and he was working with Physical Therapy for ambulation and eventually being discharged [facility] to [facility] with his dialysis to be done at [facility]. DISCHARGE MANAGEMENT: Discharged to [facility]. ACTIVITY: As tolerated. DIET: Renal diet. THERAPY: Occupational and physical therapy. FOLLOWUP: Follow up with Dr. De La Rosa, Dr. Jefferson, and Dr. Blanc along with continuing his dialysis as an outpatient. MEDICATIONS: 1. Tessalon Perles 200 mg 3 times a day as needed for cough. 2. Melatonin 6 mg at night as needed for insomnia. 3. Seroquel 25 mg at night. 4. Continue aspirin 81 mg daily. 5. Carvedilol 6.25 mg twice a day. 6. Colace 100 mg twice a day. 7. Robitussin A-C 10 mL every 6 hours as needed for cough. 8. Ipratropium bromide neb as needed. 9. Zofran 4 mg q.6 hours as needed. 10. Trileptal 600 mg twice a day. 11. Senokot 2 tabs at night as needed. 12. Colchicine 0.6 mg daily. 13. Ferrous sulfate 325 mg twice a day. Job ID: [id number]
--- NOTE | 2018-05-25 10:07 | PQF ---
JOEL HUTCHINSON NP [id number] [address] [place] [address] [id number] CLINICAL DOCUMENTATION IMPROVEMENT CLARIFICATION FORM: ICD-10 Updated PLEASE DO AN ADDENDUM TO THE PROGRESS NOTE WITH ANY DOCUMENTATION UPDATES OR ADDITIONS AND CARRY THROUGH TO DC SUMMARY. THANK YOU. DATE: 05-17-18 ATTN: Scarlet Pollard NP Please exercise your independent, professional judgment in responding to the clarification form. Clinical indicators are provided on the bottom of this form for your review Please check appropriate box(s): [ ] NSTEMI (Type I) [ ] NSTEMI (ID Type II d/t demand ischemia) [x ] Demand Ischemia [ ] Other diagnosis [ ] Unable to determine In addition, please specify: Present on Admission (POA): [x ] Yes [ ] No [ ] Unable to determine CLINICAL INDICATORS - SIGNS / SYMPTOMS / LABS TROPONIN: 05-13-18: 0.418 0.482 0.465 ER DX: ACS RULE OUT H&P: [id number] MYOCARDIAL INFARCTION. CONSULT NOTE DR. MIRANDA 05-14-18: CARDIAC ENZYMES ARE ACTUALLY ABNORMAL, BUT HE HAS OFTEN HAD ABNORML ENZYMES ARE ACTUALLY ABNORMAL, BUT HE HAS OFTEN HAD ABNORMAL ENZYMES IN THE PAST, WOULD NOT BE UNUSUAL WITH HIS CARDIOMYOPATHY AND HIS CHF EXACERBATION. RISKS: ER: HX HTN, MITRAL VALVE LEAK, ENLARGED HEART, ESRD, A FIB, BRAIN TUMOR, IVC FILTER, DEPRESSION, HEART CATH, SZ TREATMENTS: CARDIOLOGY CONSULT 05-14-18 Treating underlying Acute on Chronic CHF and Acute Respiratory Failure Thank you, Michelle (This form is maintained as a part of the permanent medical record) 2015 [employer]. All Rights Reserved FARIBA [email or web address] Office: [phone] [facility] CENTERHansel
== END 2018-05-24 17:09 | DRG 291 ==
LOC: ERS 14:17 → 2SW 18:00 → OBSVTOIN 05-14 19:38 → CCU 05-15 00:58 → 2NO 05-18 14:24 → T4-B 05-21 13:13
PROVIDERS: ADMIT Internal Medicine; ATTEND Internal Medicine
PROC: 5A1D70Z Performance of Urinary Filtration, Intermittent, Less than 6 Hours Per Day (ICD-10-PCS; principal; 2018-05-15)
PROC: 5A09457 Assistance with Respiratory Ventilation, 24-96 Consecutive Hours, Continuous Positive Airway Pressure (ICD-10-PCS; 2018-05-15)
DX: I13.2 Hypertensive heart and chronic kidney disease with heart failure and with stage 5 chronic kidney disease, or end stage renal disease (principal); I50.43 Acute on chronic combined systolic (congestive) and diastolic (congestive) heart failure; J96.01 Acute respiratory failure with hypoxia; N18.5 Chronic kidney disease, stage 5; E87.2 Acidosis; E87.1 Hypo-osmolality and hyponatremia; D68.61 Antiphospholipid syndrome; N17.9 Acute kidney failure, unspecified; I24.8 Other forms of acute ischemic heart disease; I42.8 Other cardiomyopathies; R05 Cough; D69.6 Thrombocytopenia, unspecified; I48.91 Unspecified atrial fibrillation; I34.0 Nonrheumatic mitral (valve) insufficiency; G40.909 Epilepsy, unspecified, not intractable, without status epilepticus; D63.1 Anemia in chronic kidney disease; F32.9 Major depressive disorder, single episode, unspecified; M10.9 Gout, unspecified; Z95.810 Presence of automatic (implantable) cardiac defibrillator; Z86.718 Personal history of other venous thrombosis and embolism; Z86.711 Personal history of pulmonary embolism; Z95.828 Presence of other vascular implants and grafts; Z86.69 Personal history of other diseases of the nervous system and sense organs
CPT/HCPCS: 36415; 36430; 70450; 71045; 80048; 80053; 80069; 80202; 82553; 82805; 83690; 83880; 84145; 84484; 85007; 85025; 85027; 86140; 86706; 86850; 86900; 86901; 87340; 87633; 90935; 93005; 93798; 94660; 94760; 96361; 96374; G0257; J0696; J1644; J1940; J2405; J2543; J2920; J3370; J7050; P9016; P9047; Q4081; S0179

== ENCOUNTER 2018-05-26 21:29 | Emergency (ER) | payer MEDICARE ==
[2018-05-26 22:34] LABS: Hemoglobin 9.7 g/dL (14.0-18.0); Mean Corpuscular HGB CONC 32.1 g/dL (32.0-36.0); Mean Corpuscular Hemoglobin 30.1 pg (27.0-31.0); Mean Corpuscular Volume 93.6 fL (78.0-98.0); Red Blood Cell (RBC) Count 3.23 mill/uL (4.70-6.10); White Blood Cell (WBC) Count 5.4 thou/uL (4.8-10.8)
--- NOTE | 2018-05-26 22:44 | RAD ---
SUPINE ABDOMEN: 05/26/17 INDICATION: Constipation. There is prominent stool in the left colon and rectum consistent with history of constipation. Scatte red stool and gas in the right colon. Some scattered small bowel gas appears nonspecific. There is no evidence of small bowel dilatation. No soft tissue mass or abnormal calcification. IMPRESSION: Prominent stool in the left colon and rectum consistent with history of constipation. POS: ANGEL
[2018-05-26 22:46] LABS: #Monocytes 0.4 thou/uL (0.11-0.59); %Eosinophils 0.8 % (0.0-10.0); %Lymphocytes 18.1 % (21.0-51.0); %Monocytes 6.5 % (0.0-10.0); %Neutrophils 74.5 % (42.0-75.0); Mean Platelet Volume 11.4 fL (7.4-10.4); Platelet Count 31 thou/uL (130-400); Platelet Morphology Comment Appears Decreased
[2018-05-26 22:52] LABS: ALT (SGPT) 9 U/L (8-55); AST (SGOT) 14 U/L (5-34); Albumin 3.1 g/dL (3.5-5.0); Alkaline Phosphatase 116 U/L (40-150); Anion Gap 15 mmol/L (10-20); BUN (Urea Nitrogen) 13 mg/dL (8.9-20.6); Bilirubin, Total 0.4 mg/dL (0.2-1.2); Calc. Creatinine Clearance 0 mL/min (70-130); Calcium 8.7 mg/dL (7.8-10.44); Carbon Dioxide 26 mmol/L (22-29); Chloride 91 mmol/L (98-107); Estimated GFR-MDRD 21; Globulin 3.2 g/dL (2.4-3.5); Glucose 102 mg/dL (70-105); Potassium 3.4 mmol/L (3.5-5.1); Protein, Total 6.3 g/dL (6.0-8.3); Sodium 129 mmol/L (136-145)
== END 2018-05-27 00:51 | disposition home or self-care (01) ==
LOC: ERS 21:29
DX: K59.00 Constipation, unspecified (principal); M10.9 Gout, unspecified; I12.0 Hypertensive chronic kidney disease with stage 5 chronic kidney disease or end stage renal disease; N18.6 End stage renal disease; I48.91 Unspecified atrial fibrillation; F32.9 Major depressive disorder, single episode, unspecified; Z86.718 Personal history of other venous thrombosis and embolism; Z79.891 Long term (current) use of opiate analgesic; Z79.899 Other long term (current) drug therapy; Z79.82 Long term (current) use of aspirin
CPT/HCPCS: 74018; 80053; 85025

== ENCOUNTER 2018-06-05 13:54 | Inpatient (IN) | payer MEDICARE ==
[~2018-06-05 13:54] MED LIST: ISOVUE-370 76%-LOCM 1 ML ONE
--- NOTE | 2018-06-05 14:33 | RAD ---
RADIOGRAPH CHEST 1 VIEW: Date: 06/05/2018. Time: 1:17 p.m. HISTORY: A 47-year-old male with malaise and hypotension. COMPARISON: 05/18/2018. FINDINGS: The previously demonstrated pulmonary interstitial edema has significantly improved such that the sherlyn ateral upper lobes are now clear. Residual interstitial densities remain at the lower lung zones whi ch could represent residual pulmonary interstitial edema or chronic interstitial changes. Cardiac si ze within normal limits. Right IJ double-lumen dialysis catheter. Left subclavian AICD. No pneumot horax. Lateral costophrenic angles are sharp. IMPRESSION: 1. Significant interval improvement (or resolution) of the previously demonstrated pulmonary edema. 2. Residual interstitial densities at the bilateral lower lung zones. Uncertain whether this repres ents chronic interstitial changes or residual mild interstitial edema. 3. Right-sided dialysis catheter. SINDHU [] POS: [facility]
[2018-06-05 14:54] LABS: #Basophils 0.1 thou/uL (0.0-0.2); #Eosinphils 0.1 thou/uL (0.0-0.7); #Monocytes 0.5 thou/uL (0.11-0.59); #Neutrophils 3.7 thou/uL (1.40-6.50); %Basophils 1.3 % (0.0-1.0); %Eosinophils 1.5 % (0.0-10.0); %Lymphocytes 18.7 % (21.0-51.0); %Monocytes 9.7 % (0.0-10.0); %Neutrophils 68.8 % (42.0-75.0); Hemoglobin 8.4 g/dL (14.0-18.0); Mean Corpuscular HGB CONC 30.8 g/dL (32.0-36.0); Mean Corpuscular Volume 94.2 fL (78.0-98.0); Mean Platelet Volume 12.1 fL (7.4-10.4); Platelet Count 25 thou/uL (130-400); White Blood Cell (WBC) Count 5.3 thou/uL (4.8-10.8)
[2018-06-05 15:08] LABS: ALT (SGPT) 10 U/L (8-55); AST (SGOT) 17 U/L (5-34); Alkaline Phosphatase 117 U/L (40-150); Anion Gap 14 mmol/L (10-20); BUN (Urea Nitrogen) 25 mg/dL (8.9-20.6); Bilirubin, Total 0.4 mg/dL (0.2-1.2); Calc. Creatinine Clearance 0 mL/min (70-130); Calcium 8.5 mg/dL (7.8-10.44); Carbon Dioxide 26 mmol/L (22-29); Chloride 100 mmol/L (98-107); Estimated GFR-MDRD 11; Globulin 2.6 g/dL (2.4-3.5); Glucose 97 mg/dL (70-105); MDiff Complete? YES; Ovalocytes SLIGHT = 2-5 cells (100X) (0-1/hpf); Platelet Morphology Comment Appears Decreased; Polychromasia SLIGHT = 2-3 cells (100X) (0-2/hpf); Potassium 3.7 mmol/L (3.5-5.1); Protein, Total 5.6 g/dL (6.0-8.3); Schistocytes SLIGHT = 2-5 cells (100X) (0-1/hpf); Sodium 136 mmol/L (136-145)
[2018-06-05] MEDS ORDERED: cloNIDine 0.1 MG TAB ONE (16:42)
[2018-06-05] MEDS ORDERED: Cefepime 2 GM VIAL ONE (16:42)
[2018-06-05] MEDS ORDERED: Vancomycin HCl 1.5 GM in Sodium Chloride 0.9% 250 ML 300 ML IVPB SCH (16:45)
--- NOTE | 2018-06-05 16:53 | CT ---
CTA AORTIC DISSECTION PROTOCOL WITH 3D REFORMATED IMAGING: History: 47-year-old male with weakness and dizziness. Comparison: 03-26-18 FINDINGS: No acute aortic stenosis, occlusion or aneurysmal formations demonstrated. No central pulmonary embolus is evident. There is patchy airspace opacity within the lower lobes, improved from the prior exam but persistent. There are patchy areas of suspected aspirated barium product within both lung bases. Liver, spleen, pancreas, and adrenal glands are unremarkable appearing. The left kidney is atrophic. There is a endovascular coil within the left renal artery. There is slowly resolving left perinephric hematoma. There are small right renal cysts. There is an IV filter in the inferior renal IVC. Small and large bowel are unremarkable appearing. No acute osseous abnormality is evident. IMPRESSION: 1. Bibasilar infiltrates may reflect pneumonia or aspiration. 2. Slowly resolving left perinephric hematoma with embolization of the left renal artery. Left kidney does not enhance and is atrophic. 3. Right renal cysts. 4. IVC filter. POS: [facility]
[2018-06-05] MEDS ORDERED: HYDROcodone/Acetaminophen 5/325 mg Tablet PO PRN ×2 (20:56)
[2018-06-05] MEDS ORDERED: Ondansetron ODT 4 MG TAB SL PRN (20:56)
[2018-06-05] MEDS ORDERED: Ondansetron PF 4 MG/2 ML Vial IVP PRN (20:56)
[2018-06-05] MEDS ORDERED: Acetaminophen 325 MG TAB PO PRN (20:56)
[2018-06-05] MEDS ORDERED: Sodium Chloride 0.9% 1,000 ML IV PRN (20:57)
[2018-06-05] MEDS ORDERED: Sodium Chloride 0.9% 500 ML IVPB PRN (20:58)
[2018-06-05] MEDS ORDERED: Ipratropium Bromide 2.5 ml Neb NEB PRN (22:38)
--- NOTE | 2018-06-05 23:07 | HP ---
PRIMARY CARE PHYSICIAN: Dr. Blanc. PRIMARY SWIMMING INSTRUCTOR: Dr. Jefferson. CHIEF COMPLAINT: Generalized weakness with hypotension. HISTORY OF PRESENT ILLNESS: The patient is a 47-year-old white male with end-stage renal disease, on hemodialysis, paroxysmal atrial fibrillation, congestive heart failure, seizure disorder, and hypertension, currently on carvedilol, presented to the emergency room with above symptoms. The patient felt generally weak, dizzy along with lightheadedness after he took his morning medications. He took his blood pressure, which was below 100 systolic per patient report. He denies passing out. He was unsteady. No chest pain, palpitations, or focal neurologic deficit reported. When EMS arrived, he was lethargic; however, he was alert, awake, and oriented x4. His systolic blood pressure was 100 on EMS arrival. His EKG showed normal sinus rhythm. He received 200 mL of NS bolus and was brought into the emergency room. In the emergency room, his initial vital signs showed temperature 98.1, respirations of 16, pulse of 67, blood pressure of 107/72 with O2 saturation 100% on room air. PAST MEDICAL HISTORY: 1. End-stage renal disease, on hemodialysis. 2. Chronic systolic and diastolic heart failure. 3. History of atrial flutter and fibrillation. 4. History of antiphospholipid syndrome. 5. Chronic thrombocytopenia. 6. Anxiety and depression. PAST SURGICAL HISTORY: 1. Cardiac catheterization. 2. Brain surgery for seizure. 3. IVC filter. 4. DC cardioversion. 5. AICD placement. ALLERGIES: THE PATIENT IS ALLERGIC TO VERSED, DILANTIN, AND IS UNABLE TO TOLERATE AMIODARONE. CURRENT HOME MEDICATIONS: 1. The patient has bottles of colchicine 0.6 mg at bedside. 2. Trileptal 600 mg twice a day. 3. Carvedilol 6.25 mg b.i.d. 4. Seroquel 25 mg at bedtime. SOCIAL HISTORY: The patient currently lives at home. He ambulates with the help of a walker. No alcohol, tobacco, or drug use. He is full code. FAMILY HISTORY: Negative for premature coronary artery disease. REVIEW OF SYSTEMS: All other review of systems were reviewed and were found negative. PHYSICAL EXAMINATION: VITAL SIGNS: As discussed above. GENERAL: A 47-year-old male with generalized weakness. HEENT: Head, atraumatic and normocephalic. Sclerae anicteric. Moist mucous membranes. No oral lesion. NECK: Supple. No JVD appreciated. No carotid bruit. LUNGS: Showed diminished air entry at bilateral bases with few rales, especially at bases. No rhonchi or wheezing. No accessory muscle use. HEART: S1, S2 present. Regular. No heaves or pulsation. ABDOMEN: Soft, bowel sounds present. EXTREMITIES: No edema or calf tenderness. NEUROLOGIC: Grossly nonfocal, moves all 4 extremities. PSYCHIATRIC: Alert, awake, oriented x3. SKIN: Warm and dry. LYMPH NODES: No palpable lymph nodes in the neck. PERIPHERAL VASCULAR: Radial pulses palpable bilaterally. MUSCULOSKELETAL: No joint swelling, or tenderness. LABORATORY FINDINGS: WBC 5.3 with hemoglobin 8.4, hematocrit 27.3, platelet 25. Chemistry showed sodium 136, potassium 3.7, chloride 100, bicarb 26, BUN 25, creatinine 5.4. LDH was 260, albumin 3.0. Chest x-ray by my review showed bibasilar interstitial densities. CT aortic dissection protocol showed suspected bilateral infiltrates. It also showed slowly resolving perinephric hematoma with embolization of the left renal artery. He also has IVC filter. IMPRESSION: 1. Generalized weakness with hypotension and near syncope. 2. Anemia secondary to renal insufficiency. 3. Chronic thrombocytopenia. 4. End-stage renal disease, on hemodialysis, Wednesday, Wednesday, and Wednesday. 5. Moderate protein-calorie malnutrition. 6. Generalized deconditioning. 7. Questionable bibasilar infiltrate without any leukocytosis, fever, cough, shortness of breath or wheezing. 8. History of atrial flutter/fibrillation, status post cardioversion earlier this year. 9. Nonischemic cardiomyopathy with biventricular AICD. 10. History of antiphospholipid syndrome. 11. Seizure disorder. PLAN: The patient will be monitored on the medical floor as a 23-hour observation. Inpatient rehabilitation was consulted in the emergency room. There were no rehab beds available. We will check orthostatic vitals in a.m. Reduce the dose of Coreg. Continue other home medications. We will consult Physical Therapy and occupational Therapy. Vital signs q.[address] De La Rosa for dialysis in a.m. Plan of care was discussed with the patient in detail. He stated understanding. The patient is not a candidate for anticoagulation due to chronic thrombocytopenia. Job ID: [id number]
[2018-06-06] MEDS: Carvedilol 3.125 MG TAB PO SCH ×2 (08:48→17:49)
[2018-06-06] MEDS: OXcarbazepine 300 MG TAB PO SCH ×2 (08:48→20:45)
[2018-06-06] MEDS: Cyanocobalamin (Vitamin B-12) 1,000 MCG TAB PO SCH (08:49)
[2018-06-06] MEDS: Folic Acid 1 MG TAB PO SCH (08:49)
[2018-06-06 09:22] LABS: Hemoglobin 8.3 g/dL (14.0-18.0); Mean Corpuscular HGB CONC 31.7 g/dL (32.0-36.0); Mean Corpuscular Hemoglobin 28.9 pg (27.0-31.0); Mean Corpuscular Volume 91.3 fL (78.0-98.0); Mean Platelet Volume 11.5 fL (7.4-10.4); Platelet Count 26 thou/uL (130-400); Red Blood Cell (RBC) Count 2.88 mill/uL (4.70-6.10); White Blood Cell (WBC) Count 3.5 thou/uL (4.8-10.8)
[2018-06-06] MEDS ORDERED: Epoetin (ESRD) 20,000 UNITS/ML SC SCH (09:30)
[2018-06-06 09:41] LABS: ALT (SGPT) 9 U/L (8-55); AST (SGOT) 13 U/L (5-34); Alkaline Phosphatase 101 U/L (40-150); Anion Gap 13 mmol/L (10-20); BUN (Urea Nitrogen) 27 mg/dL (8.9-20.6); Bilirubin, Total 0.4 mg/dL (0.2-1.2); Calc. Creatinine Clearance 26 mL/min (70-130); Calcium 8.7 mg/dL (7.8-10.44); Carbon Dioxide 26 mmol/L (22-29); Chloride 100 mmol/L (98-107); Estimated GFR-MDRD 12; Globulin 2.9 g/dL (2.4-3.5); Glucose 80 mg/dL (70-105); Magnesium 1.7 mg/dL (1.6-2.6); Potassium 3.7 mmol/L (3.5-5.1); Protein, Total 5.9 g/dL (6.0-8.3); Sodium 135 mmol/L (136-145)
--- NOTE | 2018-06-06 09:44 | PRG ---
DATE OF SERVICE: 06/06/2018 SUBJECTIVE: Mr. Boo is a 47-year-old white male with ESRD and admitted for hypotension and generalized malaise. He was felt to be in volume depleted. He was given volume repletion. His blood pressure this morning was improved. He has no other complaints. He still is intermittently confused. Please note, he was recently admitted at the [facility] for hypotension. OBJECTIVE: VITAL SIGNS: Blood pressure is 125/70, heart rate 70. GENERAL: He is awake, alert, comfortable, not in overt distress. SKIN: Adequate turgor. HEENT: Slightly pale conjunctivae. Anicteric sclerae. No neck mass. No carotid bruits. No JVD. CHEST: No deformities. LUNGS: Clear breath sounds. HEART: Normal sinus rhythm. No murmurs, gallops, or rubs. ABDOMEN: Globular, soft, nontender. No masses. EXTREMITIES: No edema. MEDICATIONS: Medications of June 06, 2018, reviewed. LABORATORY DATA: Laboratories of June 06, 2018; white count is 3.5, hemoglobin 8.3, platelet count 26,000. On June 05, 2018; sodium 136, potassium 3.7, chloride 100, carbon dioxide 26, BUN 25, creatinine 5.4, AST 17, ALT 10, calcium is 8.5, glucose 97. ASSESSMENT AND PLAN: 1. End-stage renal disease, stable. We will continue current Wednesday, Wednesday, Wednesday dialysis. We are using no heparin. Fluid removal only as tolerated. 2. Chronic thrombocytopenia, p.r.n. platelet transfusion. 3. Anemia. Resume back Procrit at 7500 units subcu weekly. 4. Hypotension/generalized malaise - much improved. Blood pressure is now noted at 125/70. Continue current management. Job ID: [id number]
[2018-06-06 10:10] LABS: Anisocytosis SLIGHT = 6-15 cells (100X) (0-5/hpf); Band 3 % (5-11); Hypochromia SLIGHT = 6-15 cells (100X) (0-5/hpf); Lymphocytes 39 % (21-51); MDiff Complete? YES; Monocytes 4 % (0-10); Neutrophil 54 % (42-75); Platelet Morphology Comment Appears Decreased
[2018-06-06 10:31] LABS: Folate (Folic Acid) 5.8 ng/mL (7.0-31.4)
[2018-06-06] MEDS ORDERED: Albumin 25% 25 GM/100 ML BOT IVPB SCH (17:53)
--- NOTE | 2018-06-06 17:58 | PDOC.PN ---
- Subjective Encounter Start Date: 06/06/18 Encounter Start Time: 17:55 Subjective: Admitted with dizziness and weakness. -: Still feeling dizziny and weak. remained afebrile -: Noted to be orthostatis with SBP dropping 30 units with sitting. - Objective Resuscitation Status - Order Detail: 06/05/18 22:35 Resuscitation Status Routine Resuscitation Status: FULL: Full Resuscitation Vital Signs & Weight: Vital Signs (12 hours) Temp Pulse Pulse Pulse Resp BP BP 06/06/18 17:45 97.9 F 78 16 06/06/18 14:18 65 65 129/73 72/39 L 06/06/18 11:48 98.1 F 65 17 06/06/18 09:00 06/06/18 07:40 98.1 F 71 19 BP BP BP Pulse Ox Pulse Ox Pulse Ox 06/06/18 17:45 105/70 97 06/06/18 14:18 99 99 06/06/18 11:48 129/73 72/39 L 99 06/06/18 09:00 72/39 L 129/73 06/06/18 07:40 125/64 95 Weight Weight 227 lb 1.218 oz Result Diagrams: 06/06/18 08:34 06/06/18 08:34 Phys Exam - Physical Examination HEENT: PERRLA, moist MMs Neck: no JVD, supple, full ROM Respiratory: no wheezing, no rhonchi, clear to auscultation bilateral Cardiovascular: RRR Normal heart sound 1 and 2 Gastrointestinal: soft, non-tender, no distention, positive bowel sounds Musculoskeletal: no edema, pulses present Neurological: non-focal, moves all 4 limbs Memory lapses noted Dx/Plan (1) Orthostatic hypotension Code(s): I95.1 - ORTHOSTATIC HYPOTENSION Status: Acute (2) Near syncope Status: Acute (3) End stage renal disease on dialysis Code(s): N18.6 - END STAGE RENAL DISEASE; Z99.2 - DEPENDENCE ON RENAL DIALYSIS Status: Chronic (4) History of pulmonary embolism Code(s): Z86.711 - PERSONAL HISTORY OF PULMONARY EMBOLISM Status: Chronic Comment: h/o IVC filter (5) Nonischemic cardiomyopathy Code(s): I42.8 - OTHER CARDIOMYOPATHIES Status: Chronic Comment: s/p BiV AICD (6) Seizure disorder Code(s): G40.909 - EPILEPSY, UNSP, NOT INTRACTABLE, WITHOUT STATUS EPILEPTICUS Status: Chronic (7) Thrombocytopenia Code(s): D69.6 - THROMBOCYTOPENIA, UNSPECIFIED Status: Chronic Comment: no blood thinners (8) Hypotension Status: Resolved Comment: Suspect hypovolemia. - Plan Hold all antihypertensives. -: Give albumin. -: Will consider midodrine. -: Get repeat CBC. -: Will get blood cultures if it persist. * .
[2018-06-07 06:31] LABS: #Eosinphils 0.1 thou/uL (0.0-0.7); #Lymphocytes 0.9 thou/uL (1.20-3.40); #Monocytes 0.4 thou/uL (0.11-0.59); #Neutrophils 2.3 thou/uL (1.40-6.50); %Basophils 0.6 % (0.0-1.0); %Eosinophils 2.4 % (0.0-10.0); %Lymphocytes 23.9 % (21.0-51.0); %Monocytes 11.5 % (0.0-10.0); %Neutrophils 61.6 % (42.0-75.0); Hemoglobin 8.5 g/dL (14.0-18.0); Mean Corpuscular HGB CONC 32.4 g/dL (32.0-36.0); Mean Corpuscular Hemoglobin 29.4 pg (27.0-31.0); Mean Corpuscular Volume 90.6 fL (78.0-98.0); Mean Platelet Volume 11.2 fL (7.4-10.4); Platelet Count 26 thou/uL (130-400); RBC Distribution Width 13.9 % (11.5-14.5); Red Blood Cell (RBC) Count 2.89 mill/uL (4.70-6.10); White Blood Cell (WBC) Count 3.7 thou/uL (4.8-10.8)
[2018-06-07 06:44] LABS: Anion Gap 10 mmol/L (10-20); BUN (Urea Nitrogen) 12 mg/dL (8.9-20.6); Calc. Creatinine Clearance 44 mL/min (70-130); Calcium 8.7 mg/dL (7.8-10.44); Carbon Dioxide 29 mmol/L (22-29); Chloride 100 mmol/L (98-107); Estimated GFR-MDRD 22; Glucose 89 mg/dL (70-105); Potassium 3.7 mmol/L (3.5-5.1); Sodium 135 mmol/L (136-145)
[2018-06-07] MEDS: Folic Acid 1 MG TAB PO SCH (08:11)
[2018-06-07] MEDS: OXcarbazepine 300 MG TAB PO SCH ×2 (08:11→20:25)
[2018-06-07] MEDS: Cyanocobalamin (Vitamin B-12) 1,000 MCG TAB PO SCH (08:12)
--- NOTE | 2018-06-07 09:54 | PRG ---
DATE OF SERVICE: 06/07/2018 SUBJECTIVE: Mr. Boo is a 47-year-old white male with ESRD - maintenance hemodialysis, who was admitted for volume depletion/hypotension. He is currently receiving albumin infusion. Consideration for midodrine is being made. No other complaints today. Awaiting rehab placement. No complaints of chest pain or shortness of breath. He underwent dialysis yesterday. OBJECTIVE: VITAL SIGNS: Blood pressure 125/68, heart rate is 73, respiratory rate 17, temperature 97.5, and pulse ox 97%. GENERAL: Awake, alert, supine, comfortable, not in distress. SKIN: Adequate turgor. HEENT: He has slightly pale conjunctivae. Anicteric sclerae. NECK: No neck mass. No carotid bruits. No JVD. CHEST: No deformities. LUNGS: Clear breath sounds. No wheezing. No crackles. HEART: Normal sinus rhythm. No murmurs. No gallops. No rubs. ABDOMEN: Globular, soft, and nontender. No masses. EXTREMITIES: No edema. No deformities. MEDICATIONS: Medications of June 07, 2018, was reviewed. LABORATORY DATA: Laboratories of June 07, 2018; white count 3.7, hemoglobin 8.5. Sodium 135, potassium 3.7, chloride 100, carbon dioxide 29, BUN 12, creatinine 3.05, glucose 89, and calcium 8.7. ASSESSMENT AND PLAN: 1. Chronic hypotension - status post albumin infusion. Consideration for midodrine to be started. We can actually initiate midodrine now at 5 mg tablet q.a.m. Adjust upwards as needed. 2. End-stage renal disease, stable. We will continue current hemodialysis regimen. Again, as previously mentioned, fluid removal only as tolerated. In the past, we have been aggressive with fluid removal due to his congestive heart failure. Currently, the patient is not in volume overload. We will minimize fluid removal depending on his volume status tomorrow. 3. Anemia. Procrit/Epogen has been resumed. Recheck basic metabolic and CBC in a.m. Job ID: [id number]
--- NOTE | 2018-06-07 10:50 | PDOC.PN ---
- Subjective Encounter Start Date: 06/07/18 Encounter Start Time: 10:49 Subjective: Still complaining of [place]akness. No fever. -: Oral intake is poor. - Objective Resuscitation Status - Order Detail: 06/05/18 22:35 Resuscitation Status Routine Resuscitation Status: FULL: Full Resuscitation Vital Signs & Weight: Vital Signs (12 hours) Temp Pulse Resp BP BP Pulse Ox 06/07/18 07:33 97.5 F L 73 17 125/64 96/68 97 06/07/18 05:27 97.6 F 75 16 118/71 96 Weight Weight 229 lb 8.019 oz Result Diagrams: 06/07/18 06:12 06/07/18 06:12 Phys Exam - Physical Examination chronically ill looking. wasting noted. HEENT: PERRLA, moist MMs Neck: no JVD, supple Respiratory: no wheezing, no rales, no rhonchi Cardiovascular: RRR, no significant murmur Gastrointestinal: soft, non-tender, no distention, positive bowel sounds Musculoskeletal: no edema, pulses present Neurological: non-focal, moves all 4 limbs Memory lapses noted Psychiatric: A&O x 3 Dx/Plan (1) Orthostatic hypotension Code(s): I95.1 - ORTHOSTATIC HYPOTENSION Status: Acute Comment: Related to massive weight loss (2) Near syncope Status: Acute (3) End stage renal disease on dialysis Code(s): N18.6 - END STAGE RENAL DISEASE; Z99.2 - DEPENDENCE ON RENAL DIALYSIS Status: Chronic (4) History of pulmonary embolism Code(s): Z86.711 - PERSONAL HISTORY OF PULMONARY EMBOLISM Status: Chronic Comment: h/o IVC filter (5) Nonischemic cardiomyopathy Code(s): I42.8 - OTHER CARDIOMYOPATHIES Status: Chronic Comment: s/p BiV AICD (6) Seizure disorder Code(s): G40.909 - EPILEPSY, UNSP, NOT INTRACTABLE, WITHOUT STATUS EPILEPTICUS Status: Chronic (7) Thrombocytopenia Code(s): D69.6 - THROMBOCYTOPENIA, UNSPECIFIED Status: Chronic Comment: no blood thinners (8) Protein-calorie malnutrition, severe Code(s): E43 - UNSPECIFIED SEVERE PROTEIN-CALORIE MALNUTRITION Status: Acute - Plan Increase midodrine to 5 tid. -: Start nepro tid -: Consult dieticiaan for nutritional rehabilitation -: Consult PT/OT -: HD as Per Nephrology * .
[2018-06-07] MEDS: Acetaminophen 325 MG TAB PO PRN (10:51)
[2018-06-07] MEDS: Midodrine HCl 5 MG TAB PO SCH ×2 (14:18→20:25)
[2018-06-08 05:56] LABS: #Eosinphils 0.1 thou/uL (0.0-0.7); #Monocytes 0.4 thou/uL (0.11-0.59); %Basophils 0.2 % (0.0-1.0); %Lymphocytes 27.6 % (21.0-51.0); %Monocytes 12.1 % (0.0-10.0); Hemoglobin 8.5 g/dL (14.0-18.0); Mean Corpuscular HGB CONC 31.9 g/dL (32.0-36.0); Mean Corpuscular Hemoglobin 28.9 pg (27.0-31.0); Mean Corpuscular Volume 90.6 fL (78.0-98.0); Mean Platelet Volume 11.1 fL (7.4-10.4); Platelet Count 31 thou/uL (130-400); RBC Distribution Width 13.8 % (11.5-14.5); Red Blood Cell (RBC) Count 2.94 mill/uL (4.70-6.10); White Blood Cell (WBC) Count 3.5 thou/uL (4.8-10.8)
[2018-06-08 06:17] LABS: Anion Gap 13 mmol/L (10-20); BUN (Urea Nitrogen) 20 mg/dL (8.9-20.6); Calc. Creatinine Clearance 29 mL/min (70-130); Carbon Dioxide 28 mmol/L (22-29); Chloride 97 mmol/L (98-107); Estimated GFR-MDRD 15; Glucose 83 mg/dL (70-105); Potassium 3.9 mmol/L (3.5-5.1); Sodium 134 mmol/L (136-145)
[2018-06-08] MEDS: OXcarbazepine 300 MG TAB PO SCH ×2 (07:57→20:21)
[2018-06-08] MEDS: Folic Acid 1 MG TAB PO SCH (07:57)
[2018-06-08] MEDS: Cyanocobalamin (Vitamin B-12) 1,000 MCG TAB PO SCH (07:57)
[2018-06-08] MEDS: Midodrine HCl 5 MG TAB PO SCH ×3 (07:57→20:20)
[2018-06-08] MEDS ORDERED: Midodrine HCl 5 MG TAB PO SCH (09:00)
--- NOTE | 2018-06-08 09:46 | PRG ---
DATE OF SERVICE: 06/08/2018 SUBJECTIVE: Mr. Boo is a 47-year-old white male with known history of ESRD and currently on maintenance hemodialysis. He was admitted due to a low blood pressure. Blood pressure has been stable. It has been fluctuating from as low as 94/69 to as high as 142/86. No new complaints today. He denies any chest pain or shortness of breath. I am currently dialyzing him. I am at the bedside supervising his dialysis. Fluid removal will only be done as tolerated by the patient. No complaints of chest pain or shortness of breath. Awaiting rehab placement. OBJECTIVE: VITAL SIGNS: Blood pressure 94/69, heart rate 96, respiratory rate 16, temperature 97.4, and pulse ox 97%. GENERAL: Noted to be awake, alert, and comfortable, not in distress. SKIN: Adequate turgor. HEENT: He has a slightly pale conjunctivae. Anicteric sclerae. NECK: No neck mass. No carotid bruits. No JVD. CHEST: No deformities. LUNGS: Decreased breath sounds. HEART: Normal sinus rhythm. No murmurs. No gallops. No rubs. ABDOMEN: Globular, soft, and nontender. No masses. EXTREMITIES: No edema. No deformities. MEDICATIONS: Medications of June 08, 2018, reviewed. LABORATORY DATA: Laboratories of June 08, 2018; white count 3.5, hemoglobin 8.5. Sodium 134, potassium 3.9, chloride 97, carbon dioxide 28, BUN 20, creatinine 4.22, glucose 83, and calcium 9. ASSESSMENT AND PLAN: 1. End-stage renal disease, stable. Continue current maintenance hemodialysis. Fluid removal only as tolerated. No heparin use. 2. Chronic thrombocytopenia - stable. Platelet count slightly higher today at 31,000. 3. Anemia, continuing weekly Epogen. Blood transfusion only when the hemoglobin less than 7. Awaiting rehab placement. Job ID: [id number]
[2018-06-09 08:02] LABS: HBSAB Concentration 19.81 mIU/mL; Hep B Surf AB Reactive (NonReactive)
[2018-06-09] MEDS: OXcarbazepine 300 MG TAB PO SCH ×2 (08:30→20:32)
[2018-06-09] MEDS: Folic Acid 1 MG TAB PO SCH (08:31)
[2018-06-09] MEDS: Cyanocobalamin (Vitamin B-12) 1,000 MCG TAB PO SCH (08:31)
[2018-06-09] MEDS: Midodrine HCl 5 MG TAB PO SCH ×4 (08:40→20:32)
--- NOTE | 2018-06-09 09:56 | PRG ---
DATE OF SERVICE: 06/09/2018 SUBJECTIVE: Mr. Boo is a 47-year-old white male, who is being followed up by the [facility] for his maintenance hemodialysis. He was initially admitted due to low blood pressure. He is doing better. Please note, the patient has been started on midodrine. Recently, he was started on Florinef at 0.1 mg p.o. daily. In addition, he was previously in atrial fibrillation and his amiodarone was discontinued due to persistent cough. No other complaints today. OBJECTIVE: VITAL SIGNS: Blood pressure is 110/70, heart rate 72, respiratory rate 18, temperature 98.2, and pulse ox 95%. GENERAL: Awake, supine, and comfortable, not in distress. SKIN: Adequate turgor. HEENT: Slightly pale conjunctivae. Anicteric sclerae. NECK: No neck mass. No carotid bruits. No JVD. CHEST: No deformities. LUNGS: Clear breath sounds. No wheezing. No crackles. HEART: Normal sinus rhythm. No murmurs. No gallops. No rubs. ABDOMEN: Globular, soft, and nontender. No masses. EXTREMITIES: No edema. MEDICATIONS: Medications of June 09, 2018, reviewed. LABORATORY DATA: Laboratories of June 08, 2018; white count 3.5, hemoglobin 8.5. Sodium 134, potassium 3.9, chloride 97, carbon dioxide 28, BUN 20, creatinine 4.22, glucose 83, and calcium 9.0. Platelet count was 31,000 on June 08, 2018. ASSESSMENT AND PLAN: 1. End-stage renal disease, stable. We will continue current hemodialysis regimen. Fluid removal only as tolerated. No changes with the current dialysis regimen. 2. Chronic thrombocytopenia, stable. Continue to monitor. 3. Chronic hypotension, on midodrine. Recently, he was started on Florinef. Overall prognosis remains guarded with this patient. Recheck basic metabolic and CBC in a.m. Job ID: [id number]
[2018-06-09 09:57] LABS: HBSAg Index 0.24 S/CO (0-0.99)
[2018-06-09 09:58] LABS: Hep B Surf Ag NonReactive S/CO (NonReactive)
[2018-06-09] MEDS: Fludrocortisone Acetate 0.1 MG TAB PO SCH (10:43)
[2018-06-09] MEDS: Acetaminophen 325 MG TAB PO PRN (10:43)
--- NOTE | 2018-06-09 14:35 | PDOC.PN ---
- Subjective Encounter Start Date: 06/09/18 Encounter Start Time: 12:33 Subjective: Still very weak and unable to get up. get dizzy with standing. -: Oral intake remained poor related to dietary restrictions. -: No nausea or vomiting. Also complains of constipation - Objective Resuscitation Status - Order Detail: 06/05/18 22:35 Resuscitation Status Routine Resuscitation Status: FULL: Full Resuscitation Vital Signs & Weight: Vital Signs (12 hours) Temp Pulse Resp BP BP Pulse Ox 06/09/18 07:43 98.2 F 72 18 110/70 95 06/09/18 04:58 97.5 F L 77 16 101/70 96 Weight Admit Weight 228 lb 9.91 oz Weight 201 lb 4.513 oz I&O: 06/08/18 06/09/18 06/10/18 06:59 06:59 06:59 Intake Total 400 Output Total 0 Balance 400 Result Diagrams: 06/08/18 05:20 06/08/18 05:20 Phys Exam - Physical Examination chronic ill looking male. afebrile, cachetic HEENT: PERRLA Neck: no JVD, supple Respiratory: no wheezing, no rales, no rhonchi Cardiovascular: RRR Gastrointestinal: soft, non-tender, no distention, positive bowel sounds Musculoskeletal: no edema, pulses present Neurological: moves all 4 limbs Memory lapses noted Dx/Plan (1) Protein-calorie malnutrition, severe Code(s): E43 - UNSPECIFIED SEVERE PROTEIN-CALORIE MALNUTRITION Status: Acute (2) Orthostatic hypotension Code(s): I95.1 - ORTHOSTATIC HYPOTENSION Status: Acute Comment: Related to massive weight loss ? + medications. (3) Near syncope Status: Acute (4) End stage renal disease on dialysis Code(s): N18.6 - END STAGE RENAL DISEASE; Z99.2 - DEPENDENCE ON RENAL DIALYSIS Status: Chronic (5) History of pulmonary embolism Code(s): Z86.711 - PERSONAL HISTORY OF PULMONARY EMBOLISM Status: Chronic Comment: h/o IVC filter (6) Nonischemic cardiomyopathy Code(s): I42.8 - OTHER CARDIOMYOPATHIES Status: Chronic Comment: s/p BiV AICD (7) Seizure disorder Code(s): G40.909 - EPILEPSY, UNSP, NOT INTRACTABLE, WITHOUT STATUS EPILEPTICUS Status: Chronic (8) Thrombocytopenia Code(s): D69.6 - THROMBOCYTOPENIA, UNSPECIFIED Status: Chronic Comment: no blood thinners (9) Antiphospholipid syndrome Code(s): D68.61 - ANTIPHOSPHOLIPID SYNDROME Status: Chronic - Plan Add florinef to midodrine as patient is having severe orthostatic hypoten -: liberalized diet tto improve oral intake. -: Continue nepro. -: PT/OT to continue as tolerated. So far limited due to othostatic hypotensio -: Start stool softener for constipation. * .
[2018-06-09] MEDS ORDERED: Bisacodyl 10 MG SUPP PR SCH (14:45)
[2018-06-10 07:12] LABS: Anion Gap 14 mmol/L (10-20); BUN (Urea Nitrogen) 29 mg/dL (8.9-20.6); Calc. Creatinine Clearance 26 mL/min (70-130); Calcium 9.3 mg/dL (7.8-10.44); Carbon Dioxide 25 mmol/L (22-29); Chloride 99 mmol/L (98-107); Estimated GFR-MDRD 14; Glucose 84 mg/dL (70-105); Sodium 134 mmol/L (136-145)
[2018-06-10 07:22] LABS: Platelet Count 27 thou/uL (130-400)
[2018-06-10 07:59] LABS: #Eosinphils 0.1 thou/uL (0.0-0.7); #Lymphocytes 0.9 thou/uL (1.20-3.40); #Monocytes 0.3 thou/uL (0.11-0.59); #Neutrophils 2.2 thou/uL (1.40-6.50); %Basophils 0.9 % (0.0-1.0); %Eosinophils 2.9 % (0.0-10.0); %Lymphocytes 24.7 % (21.0-51.0); %Monocytes 9.5 % (0.0-10.0); %Neutrophils 61.9 % (42.0-75.0); Hemoglobin 8.5 g/dL (14.0-18.0); Mean Corpuscular HGB CONC 31.8 g/dL (32.0-36.0); Mean Corpuscular Hemoglobin 28.9 pg (27.0-31.0); Mean Platelet Volume 11.6 fL (7.4-10.4); Platelet Morphology Comment Appears Decreased; RBC Distribution Width 13.7 % (11.5-14.5); Red Blood Cell (RBC) Count 2.93 mill/uL (4.70-6.10); White Blood Cell (WBC) Count 3.6 thou/uL (4.8-10.8)
[2018-06-10] MEDS ORDERED: Heparin 10,000 UNITS/ 10 ML VIAL ONE (08:25)
[2018-06-10] MEDS: Midodrine HCl 5 MG TAB PO SCH ×3 (09:00→20:48)
--- NOTE | 2018-06-10 14:01 | PDOC.PN ---
- Subjective Encounter Start Date: 06/10/18 Encounter Start Time: 13:59 Subjective: feels Ok but hasn't gotten OOB yet -: care discussed w mother in the room - Objective Resuscitation Status - Order Detail: 06/05/18 22:35 Resuscitation Status Routine Resuscitation Status: FULL: Full Resuscitation MAR Reviewed: Yes Vital Signs & Weight: Vital Signs (12 hours) Temp Pulse Resp BP Pulse Ox 06/10/18 07:21 97.4 F L 74 20 124/79 98 06/10/18 07:18 98 Weight Admit Weight 228 lb 9.91 oz Weight 204 lb 12.951 oz Result Diagrams: 06/10/18 06:24 06/10/18 06:24 Additional Labs: `` Radiology Reviewed by me: Yes Phys Exam - Physical Examination Constitutional: NAD HEENT: PERRLA, moist MMs, sclera anicteric, oral pharynx no lesions Neck: no nodes, no JVD, supple, full ROM Respiratory: no wheezing, no rales, no rhonchi, clear to auscultation bilateral Cardiovascular: RRR, no significant murmur, no rub, gallop Gastrointestinal: soft, non-tender, no distention, positive bowel sounds Musculoskeletal: no edema, pulses present Neurological: non-focal, normal sensation, moves all 4 limbs Psychiatric: normal affect, A&O x 3 Skin: no rash Dx/Plan (1) Near syncope Status: Acute (2) Orthostatic hypotension Code(s): I95.1 - ORTHOSTATIC HYPOTENSION Status: Acute Comment: Related to massive weight loss ? + medications. (3) Protein-calorie malnutrition, severe Code(s): E43 - UNSPECIFIED SEVERE PROTEIN-CALORIE MALNUTRITION Status: Acute (4) CAD (coronary artery disease) Code(s): I25.10 - ATHSCL HEART DISEASE OF [place] CORONARY ARTERY W/O ANG PCTRS Status: Acute (5) Anemia in chronic kidney disease Code(s): N18.9 - CHRONIC KIDNEY DISEASE, UNSPECIFIED; D63.1 - ANEMIA IN CHRONIC KIDNEY DISEASE Status: Chronic Comment: on erythropoetin (6) Antiphospholipid syndrome Code(s): D68.61 - ANTIPHOSPHOLIPID SYNDROME Status: Chronic (7) Atrial fibrillation Code(s): I48.91 - UNSPECIFIED ATRIAL FIBRILLATION Status: Chronic Qualifiers: Atrial fibrillation type: paroxysmal (8) End stage renal disease on dialysis Code(s): N18.6 - END STAGE RENAL DISEASE; Z99.2 - DEPENDENCE ON RENAL DIALYSIS Status: Chronic (9) Gout Code(s): M10.9 - GOUT, UNSPECIFIED Status: Chronic Qualifiers: Gout site: unspecified site Gout etiology: unspecified cause (10) H/O tonic-clonic seizures Code(s): Z86.69 - PERSONAL HISTORY OF DIS OF THE NERVOUS SYS AND SENSE ORGANS Status: Chronic Comment: s/o Lobectomy in past.on Keppra for now (11) HTN (hypertension) Code(s): I10 - ESSENTIAL (PRIMARY) HYPERTENSION Status: Chronic Qualifiers: Hypertension type: essential hypertension (12) History of pulmonary embolism Code(s): Z86.711 - PERSONAL HISTORY OF PULMONARY EMBOLISM Status: Chronic Comment: h/o IVC filter.no OAC due to chr Thrombocytopenia (13) Nonischemic cardiomyopathy Code(s): I42.8 - OTHER CARDIOMYOPATHIES Status: Chronic Comment: s/p BiV AICD (14) Pancytopenia Code(s): D61.818 - OTHER PANCYTOPENIA Status: Chronic (15) Chronic combined systolic and diastolic CHF, NYHA class 2 and MATTY/AHA stage C Code(s): I50.42 - CHRONIC COMBINED SYSTOLIC AND DIASTOLIC HRT FAIL Status: Chronic - Plan plan discussed w/ family, respiratory therapy, incentive spirometry, out of bed/ ambulate, DVT proph w/SCDs no evidence to suggest PNA clinically even though CT scan showed Infiltrate -: cont midodrine & Florinef.recheck orthostatic -: HD w monitoring of renal Fx .stable. -: monitor platelets.stable & no overt bleed. chr in nature -: DC to rehab soon if no more dizzy.Will work w PT today * .restart select home meds. * am labs Review of Systems - Review of Systems Constitutional: weakness. negative: fever, chills, sweats, malaise, other ENT: negative: Ear Pain, Ear Discharge, Nose Pain, Nose Discharge, Nose Congestion, Mouth Pain, Mouth Swelling, Throat Pain, Throat Swelling, Other Respiratory: negative: Cough, Dry, Shortness of Breath, Hemoptysis, SOB with Excertion, Pleuritic Pain, Sputum, Wheezing Cardiovascular: negative: chest pain, palpitations, orthopnea, paroxysmal nocturnal dyspnea, edema, light headedness, other Genitourinary: negative: Dysuria, Frequency, Incontinence, Hematuria, Retention , Other Musculoskeletal: negative: Neck Pain, Shoulder Pain, Arm Pain, Back Pain, Hand Pain, Leg Pain, Foot Pain, Other Skin: negative: Rash, Lesions, Loy, Bruising, Other Neurological: negative: Weakness, Numbness, Incoordination, Change in Speech, Confusion, Seizures, Other - Medications/Allergies Allergies/Adverse Reactions: Allergies Allergy/AdvReac Type Severity Reaction Status Date / Time phenytoin sodium Allergy Severe Emesis Verified 05/01/18 05:56 [From Dilantin] phenytoin sodium extended Allergy Severe Emesis Verified 05/01/18 05:56 [From Dilantin] midazolam HCl [From Versed] Allergy Intermediate swelling Verified 05/01/18 05: 56 Medications: Current Medications Acetaminophen (Tylenol) 650 mg PO Q4H PRN PRN Reason: Headache/Fever/Mild Pain (1-3) Last Admin: 06/09/18 10:43 Dose: 650 mg Calcium Carbonate (Tums) 1,000 mg PO Q4H PRN PRN Reason: Heartburn or Indigestion Cyanocobalamin (Vitamin B-12) 1,000 mcg PO DAILY [facility] Last Admin: 06/09/18 08:31 Dose: 1,000 mcg Epoetin Nain (Procrit) 7,500 units SC [facility] Fludrocortisone Acetate (Florinef) 0.1 mg PO DAILY [facility] Last Admin: 06/09/18 10:43 Dose: 0.1 mg Folic Acid (Folvite) 1 mg PO DAILY [facility] Last Admin: 06/09/18 08:31 Dose: 1 mg Ipratropium [place] (Atrovent) 2.5 ml NEB Q6H PRN PRN Reason: SOB &/or Wheezing Midodrine (Proamatine) 5 mg PO TID [facility] Last Admin: 06/09/18 20:32 Dose: 5 mg Oxcarbazepine (Trileptal) 600 mg PO BID [facility] Last Admin: 06/09/18 20:32 Dose: 600 mg Quetiapine Fumarate (Seroquel) 25 mg PO HS [facility] Last Admin: 06/09/18 20:32 Dose: 25 mg Senna/Docusate Sodium (Senokot S) 2 tab PO BIDPRN PRN PRN Reason: Constipation Sodium Chloride (Flush - Normal Saline) 10 ml IVF Q12HR [facility] Last Admin: 06/09/18 20:33 Dose: 10 ml Sodium Chloride (Flush - Normal Saline) 10 ml IVF PRN PRN PRN Reason: Saline Flush
[2018-06-10] MEDS: Folic Acid 1 MG TAB PO SCH (14:25)
[2018-06-10] MEDS: Cyanocobalamin (Vitamin B-12) 1,000 MCG TAB PO SCH (14:25)
[2018-06-10] MEDS: OXcarbazepine 300 MG TAB PO SCH ×2 (14:25→20:47)
[2018-06-10] MEDS: Fludrocortisone Acetate 0.1 MG TAB PO SCH (14:27)
--- NOTE | 2018-06-10 15:26 | PRG ---
DATE OF SERVICE: 06/10/2018 SERVICE: Renal Medicine. SUBJECTIVE: Mr. Boo is a 47-year-old white male with ESRD and currently undergoing maintenance hemodialysis. He received dialysis today. He tolerated said treatment. He is doing better. No complaints of chest pain or shortness of breath. OBJECTIVE: VITAL SIGNS: Blood pressure is 124/79, heart rate 74, respiratory rate 20, temperature 97.4, and pulse ox 98%. GENERAL: Awake, alert, comfortable, not in distress. SKIN: Adequate turgor. HEENT: Slightly pale conjunctivae. Anicteric sclerae. NECK: No neck mass. No carotid bruits. No JVD. CHEST: No deformities. LUNGS: Clear breath sounds. No wheezing. No crackles. HEART: Normal sinus rhythm. No murmurs, gallops or rubs. ABDOMEN: Globular, soft, and nontender. EXTREMITIES: No edema. MEDICATIONS: Medications of June 10, 2018, were reviewed. LABORATORY DATA: Laboratories of June 10, 2018; white count 3.6 and hemoglobin 8.5. Sodium 134, potassium 4, chloride 99, carbon dioxide 25, BUN 29, creatinine 4.66, and calcium 9.3. ASSESSMENT/PLAN: 1. End-stage renal disease, stable. Continue current hemodialysis regimen on Wednesday, Wednesday, and Wednesday. Tolerating said treatment. Tolerating fluid removal. 2. Chronic thrombocytopenia, stable. Continue to observe. 3. Anemia, on weekly Epogen. 4. Hypotension, much improved. Job ID: [id number]
[2018-06-10] MEDS: Ferrous Sulfate 325 MG TAB PO SCH (16:23)
[2018-06-10] MEDS: Docusate 100 MG CAP PO SCH (20:47)
[2018-06-11 07:42] LABS: #Eosinphils 0.1 thou/uL (0.0-0.7); #Lymphocytes 0.9 thou/uL (1.20-3.40); #Monocytes 0.3 thou/uL (0.11-0.59); #Neutrophils 2.3 thou/uL (1.40-6.50); %Basophils 0.7 % (0.0-1.0); %Eosinophils 2.1 % (0.0-10.0); %Lymphocytes 25.2 % (21.0-51.0); %Monocytes 8.2 % (0.0-10.0); %Neutrophils 63.9 % (42.0-75.0); Hemoglobin 8.5 g/dL (14.0-18.0); Mean Corpuscular HGB CONC 32.9 g/dL (32.0-36.0); Mean Corpuscular Hemoglobin 29.6 pg (27.0-31.0); Mean Platelet Volume 11.3 fL (7.4-10.4); Platelet Count 29 thou/uL (130-400); RBC Distribution Width 13.7 % (11.5-14.5); Red Blood Cell (RBC) Count 2.87 mill/uL (4.70-6.10); White Blood Cell (WBC) Count 3.6 thou/uL (4.8-10.8)
[2018-06-11 07:52] LABS: Anion Gap 11 mmol/L (10-20); BUN (Urea Nitrogen) 20 mg/dL (8.9-20.6); Calc. Creatinine Clearance 30 mL/min (70-130); Calcium 8.9 mg/dL (7.8-10.44); Carbon Dioxide 29 mmol/L (22-29); Chloride 98 mmol/L (98-107); Estimated GFR-MDRD 16; Glucose 86 mg/dL (70-105); Potassium 3.9 mmol/L (3.5-5.1); Sodium 134 mmol/L (136-145)
[2018-06-11] MEDS: Docusate 100 MG CAP PO SCH ×2 (08:57→21:15)
[2018-06-11] MEDS: Colchicine 0.6 MG TAB PO SCH (08:58)
[2018-06-11] MEDS: Midodrine HCl 5 MG TAB PO SCH ×3 (08:58→21:16)
[2018-06-11] MEDS: Fludrocortisone Acetate 0.1 MG TAB PO SCH (08:58)
[2018-06-11] MEDS: Aspirin Chewable 81 MG TAB PO SCH (08:58)
[2018-06-11] MEDS: Folic Acid 1 MG TAB PO SCH (08:58)
[2018-06-11] MEDS: Cyanocobalamin (Vitamin B-12) 1,000 MCG TAB PO SCH (08:58)
[2018-06-11] MEDS: Ferrous Sulfate 325 MG TAB PO SCH ×2 (08:58→17:17)
[2018-06-11] MEDS: OXcarbazepine 300 MG TAB PO SCH ×2 (08:58→21:15)
[2018-06-11] MEDS ORDERED: Fludrocortisone Acetate 0.1 MG TAB PO SCH (13:00)
--- NOTE | 2018-06-11 13:18 | PDOC.PN ---
- Subjective Encounter Start Date: 06/11/18 Encounter Start Time: 13:17 Subjective: No new problem -: Still with poor oral intake though taking nepro as ordered -: Still very orthostatic dizziness even with sitting. - Objective Resuscitation Status - Order Detail: 06/05/18 22:35 Resuscitation Status Routine Resuscitation Status: FULL: Full Resuscitation Vital Signs & Weight: Vital Signs (12 hours) Temp Pulse Resp BP BP Pulse Ox 06/11/18 08:00 97.5 F L 78 18 69/55 L 131/80 97 06/11/18 05:27 97.8 F 84 16 115/76 97 Weight Admit Weight 228 lb 9.91 oz Weight 3.242 oz I&O: 06/10/18 06/11/18 06/12/18 06:59 06:59 06:59 Intake Total 720 Balance 720 Result Diagrams: 06/11/18 07:16 06/11/18 07:16 Phys Exam - Physical Examination chronically ill looking. fatigued. afebrile. HEENT: PERRLA, moist MMs Neck: no JVD Respiratory: no wheezing, no rales, no rhonchi, clear to auscultation bilateral Cardiovascular: RRR Gastrointestinal: soft, non-tender, no distention, positive bowel sounds Musculoskeletal: no edema, pulses present Neurological: moves all 4 limbs Psychiatric: A&O x 3 Dx/Plan (1) Orthostatic hypotension Code(s): I95.1 - ORTHOSTATIC HYPOTENSION Status: Acute Comment: Persistent. SBP drops into 60-80 on sitting associated with dizziness. (2) Protein-calorie malnutrition, severe Code(s): E43 - UNSPECIFIED SEVERE PROTEIN-CALORIE MALNUTRITION Status: Acute (3) Near syncope Status: Acute (4) End stage renal disease on dialysis Code(s): N18.6 - END STAGE RENAL DISEASE; Z99.2 - DEPENDENCE ON RENAL DIALYSIS Status: Chronic (5) History of pulmonary embolism Code(s): Z86.711 - PERSONAL HISTORY OF PULMONARY EMBOLISM Status: Chronic Comment: h/o IVC filter.no OAC due to chr Thrombocytopenia (6) Nonischemic cardiomyopathy Code(s): I42.8 - OTHER CARDIOMYOPATHIES Status: Chronic Comment: s/p BiV AICD (7) Seizure disorder Code(s): G40.909 - EPILEPSY, UNSP, NOT INTRACTABLE, WITHOUT STATUS EPILEPTICUS Status: Chronic (8) Thrombocytopenia Code(s): D69.6 - THROMBOCYTOPENIA, UNSPECIFIED Status: Chronic Comment: no blood thinners (9) Antiphospholipid syndrome Code(s): D68.61 - ANTIPHOSPHOLIPID SYNDROME Status: Chronic (10) Gout Code(s): M10.9 - GOUT, UNSPECIFIED Status: Chronic Qualifiers: Gout site: unspecified site Gout etiology: unspecified cause (11) Physical deconditioning Code(s): R53.81 - OTHER MALAISE Status: Chronic - Plan Increase florinef to .2 daily -: Continue midodrine 0.5 mg tid. -: increase nepro to qid -: Continue other medications. 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 PT held due to severe orthostasis with dizziness * .
[2018-06-12 07:31] LABS: Anion Gap 13 mmol/L (10-20); BUN (Urea Nitrogen) 35 mg/dL (8.9-20.6); BUN/Creatinine Ratio 8.12; Calc. Creatinine Clearance 27 mL/min (70-130); Calcium 8.9 mg/dL (7.8-10.44); Carbon Dioxide 25 mmol/L (22-29); Chloride 97 mmol/L (98-107); Estimated GFR-MDRD 15; Glucose 79 mg/dL (70-105); Potassium 4.1 mmol/L (3.5-5.1); Sodium 131 mmol/L (136-145)
[2018-06-12 08:06] LABS: #Eosinphils 0.1 thou/uL (0.0-0.7); #Lymphocytes 1.1 thou/uL (1.20-3.40); #Monocytes 0.4 thou/uL (0.11-0.59); %Basophils 0.2 % (0.0-1.0); %Lymphocytes 23.8 % (21.0-51.0); %Monocytes 8.4 % (0.0-10.0); %Neutrophils 64.6 % (42.0-75.0); Hemoglobin 8.3 g/dL (14.0-18.0); Mean Corpuscular HGB CONC 31.9 g/dL (32.0-36.0); Mean Corpuscular Hemoglobin 29.3 pg (27.0-31.0); Mean Corpuscular Volume 91.9 fL (78.0-98.0); Platelet Count 41 thou/uL (130-400); RBC Distribution Width 13.8 % (11.5-14.5); Red Blood Cell (RBC) Count 2.82 mill/uL (4.70-6.10); White Blood Cell (WBC) Count 4.7 thou/uL (4.8-10.8)
[2018-06-12] MEDS: OXcarbazepine 300 MG TAB PO SCH ×2 (09:00→21:38)
[2018-06-12] MEDS: Folic Acid 1 MG TAB PO SCH (09:00)
[2018-06-12] MEDS: Aspirin Chewable 81 MG TAB PO SCH (09:01)
[2018-06-12] MEDS: Midodrine HCl 5 MG TAB PO SCH ×3 (09:01→20:14)
[2018-06-12] MEDS: Colchicine 0.6 MG TAB PO SCH (09:01)
[2018-06-12] MEDS: Ferrous Sulfate 325 MG TAB PO SCH ×2 (09:01→16:37)
[2018-06-12] MEDS: Cyanocobalamin (Vitamin B-12) 1,000 MCG TAB PO SCH (09:02)
[2018-06-12] MEDS: Fludrocortisone Acetate 0.1 MG TAB PO SCH (09:02)
[2018-06-12] MEDS: Docusate 100 MG CAP PO SCH ×2 (09:02→20:14)
[2018-06-12] MEDS ORDERED: Midodrine HCl 5 MG TAB PO SCH (11:00)
--- NOTE | 2018-06-12 14:51 | PDOC.PN ---
- Subjective Encounter Start Date: 06/12/18 Encounter Start Time: 12:49 Subjective: Still very orthostatic and weak on attempting to sit. -: Oral intake is improving. -: No fever - Objective Resuscitation Status - Order Detail: 06/05/18 22:35 Resuscitation Status Routine Resuscitation Status: FULL: Full Resuscitation Vital Signs & Weight: Vital Signs (12 hours) Temp Pulse Resp BP BP BP BP 06/12/18 08:52 126/74 06/12/18 08:50 06/12/18 08:00 97.8 F 83 18 85/57 L 117/77 06/12/18 06:07 97.9 F 79 16 121/78 Pulse Ox 06/12/18 08:52 06/12/18 08:50 98 06/12/18 08:00 98 06/12/18 06:07 97 Weight Admit Weight 228 lb 9.91 oz Weight 196 lb I&O: 06/11/18 06/12/18 06/13/18 06:59 06:59 06:59 Intake Total 720 2500 Output Total 525 100 Balance 720 1974 Result Diagrams: 06/12/18 06:18 06/12/18 06:18 Phys Exam - Physical Examination chronically ill looking. fatigued. HEENT: PERRLA, moist MMs Neck: no JVD, supple fair air entry bilaterally Cardiovascular: RRR Gastrointestinal: soft, no distention, positive bowel sounds Musculoskeletal: no edema, pulses present Neurological: moves all 4 limbs memory lapses noted Psychiatric: A&O x 3 Dx/Plan (1) Orthostatic hypotension Code(s): I95.1 - ORTHOSTATIC HYPOTENSION Status: Acute Comment: Persistent. SBP drops into 60-80 on sitting associated with dizziness. (2) Protein-calorie malnutrition, severe Code(s): E43 - UNSPECIFIED SEVERE PROTEIN-CALORIE MALNUTRITION Status: Acute (3) Near syncope Status: Acute (4) End stage renal disease on dialysis Code(s): N18.6 - END STAGE RENAL DISEASE; Z99.2 - DEPENDENCE ON RENAL DIALYSIS Status: Chronic (5) History of pulmonary embolism Code(s): Z86.711 - PERSONAL HISTORY OF PULMONARY EMBOLISM Status: Chronic Comment: h/o IVC filter.no OAC due to chr Thrombocytopenia (6) Nonischemic cardiomyopathy Code(s): I42.8 - OTHER CARDIOMYOPATHIES Status: Chronic Comment: s/p BiV AICD (7) Seizure disorder Code(s): G40.909 - EPILEPSY, UNSP, NOT INTRACTABLE, WITHOUT STATUS EPILEPTICUS Status: Chronic (8) Thrombocytopenia Code(s): D69.6 - THROMBOCYTOPENIA, UNSPECIFIED Status: Chronic Comment: no blood thinners (9) Antiphospholipid syndrome Code(s): D68.61 - ANTIPHOSPHOLIPID SYNDROME Status: Chronic (10) Gout Code(s): M10.9 - GOUT, UNSPECIFIED Status: Chronic Qualifiers: Gout site: unspecified site Gout etiology: unspecified cause (11) Physical deconditioning Code(s): R53.81 - OTHER MALAISE Status: Chronic - Plan increase midodrine to 10 mg tid. -: Continue florinef. -: diet as tolerated. Continue nepro -: dialysis as per [employer] T[employer]. -: PT as tolerated. No PT yet due to severe orthostatic hypotension * .
[2018-06-12] MEDS: Senokot S 8.6-50 MG TAB PO PRN (16:37)
[2018-06-12] MEDS: Calcium Carbonate 500 MG ChewTAB PO PRN (20:14)
[2018-06-12] MEDS: OXcarbazepine 150 MG TAB PO SCH (21:35)
[2018-06-13] MEDS: Midodrine HCl 5 MG TAB PO SCH ×4 (09:00→20:04)
--- NOTE | 2018-06-13 09:42 | PRG ---
DATE OF SERVICE: 06/13/2018 SUBJECTIVE: Mr. Boo is a 47-year-old white male with ESRD and initially admitted for hypotension. Volume repletion has been done. He is doing better. He is eating better also. His blood pressure has been remaining stable in the last several days. I am currently at the dialysis, supervising his dialysis treatment. No complaints of chest pain or shortness of breath. OBJECTIVE: VITAL SIGNS: Blood pressure 128/75, heart rate 72, respiratory rate 20, temperature 97.4, and pulse ox 95%. GENERAL: The patient is awake, alert, comfortable, not in distress, supine. SKIN: Adequate turgor. HEENT: Slightly pale conjunctivae. Anicteric sclerae. NECK: No neck mass. No carotid bruits. No JVD. CHEST: No deformities. LUNGS: Decreased breath sounds. HEART: Normal sinus rhythm. No murmur. No gallops. No rubs. ABDOMEN: Globular, soft, and nontender. No masses. EXTREMITIES: No edema. No deformities. MEDICATIONS: Medications of June 13, 2018, reviewed. LABORATORY DATA: Laboratories of June 12, 2018; white count 4.7, hemoglobin 8.3, and platelet count is 41,000. Sodium 131, potassium 4.1, chloride 97, carbon dioxide 25, BUN 35, creatinine 4.31, calcium 8.0, and phosphorus 2.0. ASSESSMENT AND PLAN: 1. End-stage renal disease, stable. Continuing current hemodialysis regimen. Fluid removal only as tolerated. Currently avoiding heparin use due to the chronic thrombocytopenia. 2. Hypotension, much improved. Currently, the patient is on midodrine 10 mg tablet p.o. t.i.d. 3. Chronic anemia - continuing weekly Epogen with this patient. Overall, agree with current management. Job ID: [id number]
[2018-06-13] MEDS ORDERED: Heparin 1,000 UNITS/ML VIAL ONE (11:11)
[2018-06-13] MEDS: Cyanocobalamin (Vitamin B-12) 1,000 MCG TAB PO SCH (12:36)
[2018-06-13] MEDS: Ferrous Sulfate 325 MG TAB PO SCH ×2 (12:36→17:06)
[2018-06-13] MEDS: Folic Acid 1 MG TAB PO SCH (12:36)
[2018-06-13] MEDS: Aspirin Chewable 81 MG TAB PO SCH (12:36)
[2018-06-13] MEDS: Fludrocortisone Acetate 0.1 MG TAB PO SCH (12:37)
[2018-06-13] MEDS: OXcarbazepine 150 MG TAB PO SCH ×2 (12:37→20:06)
[2018-06-13] MEDS: Docusate 100 MG CAP PO SCH ×2 (12:37→20:04)
[2018-06-13] MEDS: Colchicine 0.6 MG TAB PO SCH (12:38)
[2018-06-13] MEDS: Senokot S 8.6-50 MG TAB PO PRN (12:42)
--- NOTE | 2018-06-13 15:01 | PDOC.PN ---
- Subjective Encounter Start Date: 06/13/18 Encounter Start Time: 15:00 Subjective: seen and examined in HD -: feels weak .has not walked at all - Objective Resuscitation Status - Order Detail: 06/05/18 22:35 Resuscitation Status Routine Resuscitation Status: FULL: Full Resuscitation MAR Reviewed: Yes Vital Signs & Weight: Vital Signs (12 hours) Temp Pulse Resp BP BP BP BP 06/13/18 14:30 73 82/51 L 81/48 L 06/13/18 12:00 97.4 F L 77 20 109/72 06/13/18 07:43 06/13/18 07:25 97.4 F L 72 20 128/75 06/13/18 04:48 98.2 F 82 18 135/79 BP Pulse Ox 06/13/18 14:30 105/71 06/13/18 12:00 98 06/13/18 07:43 95 06/13/18 07:25 95 06/13/18 04:48 98 Weight Admit Weight 228 lb 9.91 oz Weight 196 lb I&O: 06/12/18 06/13/18 06/14/18 06:59 06:59 06:59 Intake Total 2500 1380 Output Total 525 450 Balance 1975 930 Result Diagrams: 06/12/18 06:18 06/12/18 06:18 Phys Exam - Physical Examination Constitutional: NAD HEENT: PERRLA, moist MMs, sclera anicteric, oral pharynx no lesions Neck: no nodes, no JVD, supple, full ROM Respiratory: no wheezing, no rales, no rhonchi, clear to auscultation bilateral Cardiovascular: RRR, no significant murmur Gastrointestinal: soft, non-tender, no distention, positive bowel sounds Musculoskeletal: no edema, pulses present Neurological: non-focal, normal sensation, moves all 4 limbs Psychiatric: normal affect, A&O x 3 Dx/Plan (1) Near syncope Status: Acute (2) Orthostatic hypotension Code(s): I95.1 - ORTHOSTATIC HYPOTENSION Status: Acute Comment: Persistent. SBP drops into 60-80 on sitting associated with dizziness. (3) Protein-calorie malnutrition, severe Code(s): E43 - UNSPECIFIED SEVERE PROTEIN-CALORIE MALNUTRITION Status: Acute (4) CAD (coronary artery disease) Code(s): I25.10 - ATHSCL HEART DISEASE OF [place] CORONARY ARTERY W/O ANG PCTRS Status: Acute (5) Anemia in chronic kidney disease Code(s): N18.9 - CHRONIC KIDNEY DISEASE, UNSPECIFIED; D63.1 - ANEMIA IN CHRONIC KIDNEY DISEASE Status: Chronic Comment: on erythropoetin (6) Antiphospholipid syndrome Code(s): D68.61 - ANTIPHOSPHOLIPID SYNDROME Status: Chronic (7) Atrial fibrillation Code(s): I48.91 - UNSPECIFIED ATRIAL FIBRILLATION Status: Chronic Qualifiers: Atrial fibrillation type: paroxysmal (8) End stage renal disease on dialysis Code(s): N18.6 - END STAGE RENAL DISEASE; Z99.2 - DEPENDENCE ON RENAL DIALYSIS Status: Chronic (9) Gout Code(s): M10.9 - GOUT, UNSPECIFIED Status: Chronic Qualifiers: Gout site: unspecified site Gout etiology: unspecified cause (10) H/O tonic-clonic seizures Code(s): Z86.69 - PERSONAL HISTORY OF DIS OF THE NERVOUS SYS AND SENSE ORGANS Status: Chronic Comment: s/o Lobectomy in past.on Keppra for now (11) HTN (hypertension) Code(s): I10 - ESSENTIAL (PRIMARY) HYPERTENSION Status: Chronic Qualifiers: Hypertension type: essential hypertension (12) History of pulmonary embolism Code(s): Z86.711 - PERSONAL HISTORY OF PULMONARY EMBOLISM Status: Chronic Comment: h/o IVC filter.no OAC due to chr Thrombocytopenia (13) Nonischemic cardiomyopathy Code(s): I42.8 - OTHER CARDIOMYOPATHIES Status: Chronic Comment: s/p BiV AICD (14) Pancytopenia Code(s): D61.818 - OTHER PANCYTOPENIA Status: Chronic (15) Chronic combined systolic and diastolic CHF, NYHA class 2 and MATTY/AHA stage C Code(s): I50.42 - CHRONIC COMBINED SYSTOLIC AND DIASTOLIC HRT FAIL Status: Chronic - Plan PT/OT, respiratory therapy, incentive spirometry, DVT proph w/SCDs recheck orthostatics.add compression stockings -: may need to hold Dc if still orthostatic -: Florinef and midodrine w increased doses recently -: BP meds on hold * . Review of Systems - Review of Systems Constitutional: weakness, malaise. negative: fever, chills, sweats, other ENT: negative: Ear Pain, Ear Discharge, Nose Pain, Nose Discharge, Nose Congestion, Mouth Pain, Mouth Swelling, Throat Pain, Throat Swelling, Other Respiratory: negative: Cough, Dry, Shortness of Breath, Hemoptysis, SOB with Excertion, Pleuritic Pain, Sputum, Wheezing Cardiovascular: negative: chest pain, palpitations, orthopnea, paroxysmal nocturnal dyspnea, edema, light headedness, other Gastrointestinal: negative: Nausea, Vomiting, Abdominal Pain, Diarrhea, Constipation, Melena, Hematochezia, Other Genitourinary: negative: Dysuria, Frequency, Incontinence, Hematuria, Retention , Other Musculoskeletal: negative: Neck Pain, Shoulder Pain, Arm Pain, Back Pain, Hand Pain, Leg Pain, Foot Pain, Other Neurological: negative: Weakness, Numbness, Incoordination, Change in Speech, Confusion, Seizures, Other - Medications/Allergies Allergies/Adverse Reactions: Allergies Allergy/AdvReac Type Severity Reaction Status Date / Time phenytoin sodium Allergy Severe Emesis Verified 05/01/18 05:56 [From Dilantin] phenytoin sodium extended Allergy Severe Emesis Verified 05/01/18 05:56 [From Dilantin] midazolam HCl [From Versed] Allergy Intermediate swelling Verified 05/01/18 05: 56 Medications: Current Medications Acetaminophen (Tylenol) 650 mg PO Q4H PRN PRN Reason: Headache/Fever/Mild Pain (1-3) Last Admin: 06/09/18 10:43 Dose: 650 mg Aspirin (Aspirin Chewable) 81 mg PO DAILY [facility] Last Admin: 06/13/18 12:36 Dose: 81 mg Calcium Carbonate (Tums) 1,000 mg PO Q4H PRN PRN Reason: Heartburn or Indigestion Last Admin: 06/12/18 20:14 Dose: 1,000 mg Colchicine (Colcrys) 0.6 mg PO DAILY [facility] Last Admin: 06/13/18 12:38 Dose: 0.6 mg Cyanocobalamin (Vitamin B-12) 1,000 mcg PO DAILY [facility] Last Admin: 06/13/18 12:36 Dose: 1,000 mcg Docusate Sodium (Colace) 100 mg PO BID [facility] Last Admin: 06/13/18 12:37 Dose: 100 mg Epoetin Nain (Procrit) 7,500 units [facility] Ferrous Sulf[facility] ([facility]ol) [facility] Last Admin: 06/13/18 12:36 Dose: 325 mg Fludrocortisone Acetate (Florinef) 0.2 mg PO DAILY [facility] Last Admin: 06/13/18 12:37 Dose: 0.2 mg Folic Acid (Folvite) 1 mg PO DAILY [facility] Last Admin: 06/13/18 12:36 Dose: 1 mg Ipratropium [place] (Atrovent) 2.5 ml NEB Q6H PRN PRN Reason: SOB &/or Wheezing Melatonin (Melatonin) 6 mg PO HS PRN PRN Reason: Insomnia Midodrine (Proamatine) 10 mg PO TID [facility] Last Admin: 06/13/18 12:43 Dose: 10 mg Oxcarbazepine (Trileptal) 600 mg PO BID [facility] Last Admin: 06/13/18 12:37 Dose: 600 mg Quetiapine Fumarate (Seroquel) 25 mg PO HS [facility] Last Admin: 06/12/18 20:14 Dose: 25 mg Senna/Docusate Sodium (Senokot S) 2 tab PO BIDPRN PRN PRN Reason: Constipation Last Admin: 06/13/18 12:42 Dose: 2 tab Sodium Chloride (Flush - Normal Saline) 10 ml IVF Q12HR [facility] Last Admin: 06/13/18 12:48 Dose: 10 ml Sodium Chloride (Flush - Normal Saline) 10 ml IVF PRN PRN PRN Reason: Saline Flush
[2018-06-13] MEDS ORDERED: Polyethylene Glycol 3350 17 GM Packet PO PRN (15:02)
[2018-06-13] MEDS: Melatonin 3 MG TAB PO PRN (20:13)
[2018-06-14] MEDS: Polyethylene Glycol 3350 17 GM Packet PO SCH (09:14)
[2018-06-14] MEDS: Ferrous Sulfate 325 MG TAB PO SCH ×2 (09:15→17:22)
[2018-06-14] MEDS ORDERED: Sodium Chloride 0.9% 500 ML IV SCH (09:15)
[2018-06-14] MEDS: Colchicine 0.6 MG TAB PO SCH (09:15)
[2018-06-14] MEDS: Midodrine HCl 5 MG TAB PO SCH ×3 (09:22→20:12)
[2018-06-14] MEDS: Fludrocortisone Acetate 0.1 MG TAB PO SCH (09:23)
[2018-06-14] MEDS: Folic Acid 1 MG TAB PO SCH (09:24)
[2018-06-14] MEDS: Docusate 100 MG CAP PO SCH ×2 (09:25→20:12)
[2018-06-14] MEDS: Cyanocobalamin (Vitamin B-12) 1,000 MCG TAB PO SCH (09:25)
[2018-06-14] MEDS: OXcarbazepine 150 MG TAB PO SCH ×2 (09:26→20:13)
[2018-06-14] MEDS: Aspirin Chewable 81 MG TAB PO SCH (09:26)
[2018-06-14] MEDS ORDERED: Epoetin (ESRD) 10,000 UNITS/ML VIAL SC SCH (10:00)
--- NOTE | 2018-06-14 10:30 | PRG ---
DATE OF SERVICE: 06/14/2018 SUBJECTIVE: Mr. Boo is a 47-year-old white male, being followed up for his ESRD and maintenance hemodialysis. He is tolerating dialysis. The patient remains to have episodes of low blood pressure on upright position. His Florinef has been increased. In addition, he is currently on midodrine. We are going to give him bolus today of normal saline 500 mL. Otherwise, he has no other complaints. He denies chest pain or shortness of breath. OBJECTIVE: VITAL SIGNS: Blood pressure is 103/68 - upright, it is 60/35, heart rate is 91, respiratory rate is 16, and pulse ox is 96%. GENERAL: Awake, alert, comfortable, not in distress. SKIN: Adequate turgor. HEENT: He has had pink slightly pale conjunctivae. Anicteric sclerae. NECK: No neck mass. No carotid bruits. No JVD. CHEST: No deformities. LUNGS: Clear breath sounds. HEART: Normal sinus rhythm. No murmur. No gallops. No rubs. ABDOMEN: Globular, soft, and nontender. No masses. EXTREMITIES: No edema. No deformities. MEDICATIONS: Medications of June 14, 2018, reviewed. LABORATORY DATA: Laboratories of June 12, 2018; white count 4.7, hemoglobin 8.3, and platelet count 41,000. Sodium 131, potassium 4.1, chloride 97, carbon dioxide 25, BUN 35, creatinine 4.31, and albumin is 3.0. ASSESSMENT AND PLAN: 1. Orthostatic hypotension - empiric volume repletion. Crystalloids will be given. I will give him one day of salt-poor albumin 25 g IV q.6. 2. Decreased p.o. intake. Encouraged to increase p.o. intake with the patient. We have liberalized his diet. 3. End-stage renal disease, stable. No indication for any dialytic intervention. Minimal fluid removal or fluid removal only as tolerated. 4. Anemia - increase Epogen to 10,000 units subcu weekly. 5. There is no indication for any emergent dialysis with this patient today. 6. Recheck basic met and CBC in a.m. Job ID: [id number]
[2018-06-14] MEDS: Albumin 25% 25 GM/100 ML BOT IVPB SCH ×3 (12:32→23:37)
--- NOTE | 2018-06-14 13:21 | PDOC.PN ---
- Subjective Encounter Start Date: 06/14/18 Encounter Start Time: 13:19 Subjective: feels dizzy when he get sup -: BP low this morning again - Objective Resuscitation Status - Order Detail: 06/05/18 22:35 Resuscitation Status Routine Resuscitation Status: FULL: Full Resuscitation MAR Reviewed: Yes Vital Signs & Weight: Vital Signs (12 hours) Temp Pulse Resp BP BP BP Pulse Ox 06/14/18 11:45 97.5 F L 65 15 110/65 96 06/14/18 09:08 91 63/35 L 06/14/18 09:07 82 103/68 06/14/18 09:04 96 06/14/18 07:44 98.5 F 76 16 126/81 96 06/14/18 04:00 97.9 F 67 18 119/74 98 Weight Admit Weight 228 lb 9.91 oz Weight 196 lb I&O: 06/13/18 06/14/18 06/15/18 06:59 06:59 06:59 Intake Total 1380 750 Output Total 450 150 Balance 930 600 Result Diagrams: 06/12/18 06:18 06/12/18 06:18 Phys Exam - Physical Examination Constitutional: NAD HEENT: PERRLA, moist MMs, sclera anicteric, oral pharynx no lesions Neck: no nodes, no JVD, supple, full ROM Respiratory: no wheezing, no rales, no rhonchi, clear to auscultation bilateral Cardiovascular: RRR, no significant murmur, no rub Gastrointestinal: soft, non-tender, no distention, positive bowel sounds Musculoskeletal: no edema, pulses present Neurological: non-focal, normal sensation, moves all 4 limbs Psychiatric: normal affect, A&O x 3 Skin: no rash Dx/Plan (1) Near syncope Status: Acute (2) Orthostatic hypotension Code(s): I95.1 - ORTHOSTATIC HYPOTENSION Status: Acute Comment: Persistent. SBP drops into 60-80 on sitting associated with dizziness. (3) Protein-calorie malnutrition, severe Code(s): E43 - UNSPECIFIED SEVERE PROTEIN-CALORIE MALNUTRITION Status: Acute (4) CAD (coronary artery disease) Code(s): I25.10 - ATHSCL HEART DISEASE OF [place] CORONARY ARTERY W/O ANG PCTRS Status: Acute (5) Anemia in chronic kidney disease Code(s): N18.9 - CHRONIC KIDNEY DISEASE, UNSPECIFIED; D63.1 - ANEMIA IN CHRONIC KIDNEY DISEASE Status: Chronic Comment: on erythropoetin (6) Antiphospholipid syndrome Code(s): D68.61 - ANTIPHOSPHOLIPID SYNDROME Status: Chronic (7) Atrial fibrillation Code(s): I48.91 - UNSPECIFIED ATRIAL FIBRILLATION Status: Chronic Qualifiers: Atrial fibrillation type: paroxysmal (8) End stage renal disease on dialysis Code(s): N18.6 - END STAGE RENAL DISEASE; Z99.2 - DEPENDENCE ON RENAL DIALYSIS Status: Chronic (9) Gout Code(s): M10.9 - GOUT, UNSPECIFIED Status: Chronic Qualifiers: Gout site: unspecified site Gout etiology: unspecified cause (10) H/O tonic-clonic seizures Code(s): Z86.69 - PERSONAL HISTORY OF DIS OF THE NERVOUS SYS AND SENSE ORGANS Status: Chronic Comment: s/o Lobectomy in past.on Keppra for now (11) HTN (hypertension) Code(s): I10 - ESSENTIAL (PRIMARY) HYPERTENSION Status: Chronic Qualifiers: Hypertension type: essential hypertension (12) History of pulmonary embolism Code(s): Z86.711 - PERSONAL HISTORY OF PULMONARY EMBOLISM Status: Chronic Comment: h/o IVC filter.no OAC due to chr Thrombocytopenia (13) Nonischemic cardiomyopathy Code(s): I42.8 - OTHER CARDIOMYOPATHIES Status: Chronic Comment: s/p BiV AICD (14) Pancytopenia Code(s): D61.818 - OTHER PANCYTOPENIA Status: Chronic (15) Chronic combined systolic and diastolic CHF, NYHA class 2 and MATTY/AHA stage C Code(s): I50.42 - CHRONIC COMBINED SYSTOLIC AND DIASTOLIC HRT FAIL Status: Chronic - Plan DVT proph w/SCDs will give NS bolus 500 ml.Compresion stockings placed today -: cont midodrine and florinef. albumin added -: monitor -: hold DC.no antihypertensives on baord. -: hemodialysis as per schedule. monitor renal Fx,lytes * . Review of Systems - Review of Systems Constitutional: weakness, malaise Respiratory: negative: Cough, Dry, Shortness of Breath, Hemoptysis, SOB with Excertion, Pleuritic Pain, Sputum, Wheezing Cardiovascular: negative: chest pain, palpitations, orthopnea, paroxysmal nocturnal dyspnea, edema, light headedness, other Gastrointestinal: negative: Nausea, Vomiting, Abdominal Pain, Diarrhea, Constipation, Melena, Hematochezia, Other Genitourinary: negative: Dysuria, Frequency, Incontinence, Hematuria, Retention , Other Musculoskeletal: negative: Neck Pain, Shoulder Pain, Arm Pain, Back Pain, Hand Pain, Leg Pain, Foot Pain, Other Neurological: negative: Weakness, Numbness, Incoordination, Change in Speech, Confusion, Seizures, Other - Medications/Allergies Allergies/Adverse Reactions: Allergies Allergy/AdvReac Type Severity Reaction Status Date / Time phenytoin sodium Allergy Severe Emesis Verified 05/01/18 05:56 [From Dilantin] phenytoin sodium extended Allergy Severe Emesis Verified 05/01/18 05:56 [From Dilantin] midazolam HCl [From Versed] Allergy Intermediate swelling Verified 05/01/18 05: 56 Medications: Current Medications Acetaminophen (Tylenol) 650 mg PO Q4H PRN PRN Reason: Headache/Fever/Mild Pain (1-3) Last Admin: 06/09/18 10:43 Dose: 650 mg Albumin Human (Albumin 25%) 25 gm IVPB Q6HR [facility] Stop: 06/15/18 06:01 Last Admin: 06/14/18 12:32 Dose: 25 gm Aspirin (Aspirin Chewable) 81 mg PO DAILY [facility] Last Admin: 06/14/18 09:26 Dose: 81 mg Calcium Carbonate (Tums) 1,000 mg PO Q4H PRN PRN Reason: Heartburn or Indigestion Last Admin: 06/12/18 20:14 Dose: 1,000 mg Colchicine (Colcrys) 0.6 mg PO DAILY [facility] Last Admin: 06/14/18 09:15 Dose: 0.6 mg Cyanocobalamin (Vitamin B-12) 1,000 mcg PO DAILY [facility] Last Admin: 06/14/18 09:25 Dose: 1,000 mcg Docusate Sodium (Colace) 100 mg PO BID [facility] Last Admin: 06/14/18 09:25 Dose: 100 mg Epoetin [place] (Procrit) 10,000 units SC [facility] Ferrous S[facility] ([facility]ol) [facility] Last Admin: 06/14/18 09:15 Dose: 325 mg Fludrocortisone Acetate (Florinef) 0.2 mg PO DAILY [facility] Last Admin: 06/14/18 09:23 Dose: 0.2 mg Folic Acid (Folvite) 1 mg PO DAILY [facility] Last Admin: 06/14/18 09:24 Dose: 1 mg Ipratropium [place] (Atrovent) 2.5 ml NEB Q6H PRN PRN Reason: SOB &/or Wheezing Melatonin (Melatonin) 6 mg PO HS PRN PRN Reason: Insomnia Last Admin: 06/13/18 20:13 Dose: 6 mg Midodrine (Proamatine) 10 mg PO TID [facility] Last Admin: 06/14/18 09:22 Dose: 10 mg Oxcarbazepine (Trileptal) 600 mg PO BID [facility] Last Admin: 06/14/18 09:26 Dose: 600 mg Polyethylene Glycol (Miralax) 17 gm PO DAILY [facility] Last Admin: 06/14/18 09:14 Dose: 17 gm Polyethylene Glycol (Miralax) 17 gm PO DAILYPRN PRN PRN Reason: Constipation Last Admin: 06/13/18 17:06 Dose: 17 gm Quetiapine Fumarate (Seroquel) 25 mg PO HS [facility] Last Admin: 06/13/18 20:06 Dose: 25 mg Senna/Docusate Sodium (Senokot S) 2 tab PO BIDPRN PRN PRN Reason: Constipation Last Admin: 06/13/18 12:42 Dose: 2 tab Sodium Chloride (Flush - Normal Saline) 10 ml IVF Q12HR [facility] Last Admin: 06/14/18 09:29 Dose: 10 ml Sodium Chloride (Flush - Normal Saline) 10 ml IVF PRN PRN PRN Reason: Saline Flush
[2018-06-14 14:56] VITALS: BMI 25.1
[2018-06-14] MEDS: Senokot S 8.6-50 MG TAB PO PRN (20:12)
[2018-06-14] MEDS: Melatonin 3 MG TAB PO PRN (20:14)
[2018-06-14] MEDS: Calcium Carbonate 500 MG ChewTAB PO PRN (20:18)
[2018-06-15] MEDS: Albumin 25% 25 GM/100 ML BOT IVPB SCH (05:21)
[2018-06-15 05:25] LABS: #Basophils 0.1 thou/uL (0.0-0.2); #Eosinphils 0.1 thou/uL (0.0-0.7); #Lymphocytes 1.1 thou/uL (1.20-3.40); #Monocytes 0.3 thou/uL (0.11-0.59); #Neutrophils 2.1 thou/uL (1.40-6.50); %Basophils 1.8 % (0.0-1.0); %Eosinophils 3.5 % (0.0-10.0); %Lymphocytes 28.8 % (21.0-51.0); %Monocytes 7.9 % (0.0-10.0); Hemoglobin 7.5 g/dL (14.0-18.0); Mean Corpuscular HGB CONC 32.9 g/dL (32.0-36.0); Mean Corpuscular Hemoglobin 30.2 pg (27.0-31.0); Mean Corpuscular Volume 91.9 fL (78.0-98.0); Mean Platelet Volume 9.7 fL (7.4-10.4); Platelet Count 63 thou/uL (130-400); RBC Distribution Width 13.9 % (11.5-14.5); Red Blood Cell (RBC) Count 2.49 mill/uL (4.70-6.10); White Blood Cell (WBC) Count 3.6 thou/uL (4.8-10.8)
[2018-06-15 07:17] LABS: Anion Gap 13 mmol/L (10-20); BUN (Urea Nitrogen) 28 mg/dL (8.9-20.6); Calc. Creatinine Clearance 37 mL/min (70-130); Calcium 9.8 mg/dL (7.8-10.44); Carbon Dioxide 27 mmol/L (22-29); Chloride 97 mmol/L (98-107); Estimated GFR-MDRD 22; Glucose 78 mg/dL (70-105); Sodium 133 mmol/L (136-145)
[2018-06-15] MEDS: Ferrous Sulfate 325 MG TAB PO SCH ×2 (09:45→16:32)
[2018-06-15] MEDS: Folic Acid 1 MG TAB PO SCH (09:45)
[2018-06-15] MEDS: Midodrine HCl 5 MG TAB PO SCH ×3 (09:45→21:17)
[2018-06-15] MEDS: Cyanocobalamin (Vitamin B-12) 1,000 MCG TAB PO SCH (09:46)
[2018-06-15] MEDS: Polyethylene Glycol 3350 17 GM Packet PO SCH (09:46)
[2018-06-15] MEDS: Aspirin Chewable 81 MG TAB PO SCH (09:46)
[2018-06-15] MEDS: Docusate 100 MG CAP PO SCH ×2 (09:46→21:18)
[2018-06-15] MEDS: Colchicine 0.6 MG TAB PO SCH (09:46)
[2018-06-15] MEDS: Fludrocortisone Acetate 0.1 MG TAB PO SCH (09:52)
[2018-06-15] MEDS: OXcarbazepine 300 MG TAB PO SCH ×2 (09:57→21:17)
--- NOTE | 2018-06-15 10:03 | PRG ---
DATE OF SERVICE: 06/15/2018 SUBJECTIVE: Mr. Boo is a 47-year-old white male with ESRD/chronic renal failure and currently undergoing maintenance hemodialysis. I have scheduled him for today's dialysis. Yesterday, he still had persistent orthostatic hypotension. Volume was given including albumin. In addition, due to his anemia, I have increased his Epogen. No new complaints today. No chest pain or shortness of breath. OBJECTIVE: VITAL SIGNS: Blood pressure 124/58, heart rate 69, respiratory rate 18, temperature 98, and pulse ox 96% on room air. GENERAL: Awake, alert, and comfortable, not in distress. SKIN: Adequate turgor. HEENT: Slightly pale conjunctivae. Anicteric sclerae. NECK: No neck mass. No carotid bruits. No JVD. CHEST: No deformities. LUNGS: Clear breath sounds. No wheezing. No crackles. HEART: Normal sinus rhythm. No murmur. No gallops. No rubs. ABDOMEN: Globular, soft, and nontender. No masses. EXTREMITIES: No edema. MEDICATIONS: Medications of June 15, 2018, was reviewed. LABORATORY DATA: Laboratories of June 15, 2018, white count 3.6 and hemoglobin 7.5. Sodium 133, potassium 4, chloride 97, carbon dioxide 27, BUN 28, creatinine 3.07, and calcium is 9.8. Platelet count 63,000. ASSESSMENT AND PLAN: 1. Orthostatic hypotension - we will continue current midodrine with this patient. He is on 10 mg p.o. t.i.d. I have not excluded the possible further increasing this. 2. Anemia - the patient's Epogen has been increased to 10,000 units subcu every week. 3. End-stage renal disease, stable. We will continue current Wednesday, Wednesday, and Wednesday hemodialysis. Minimal fluid removal due to the patient's low blood pressure. 4. Chronic thrombocytopenia, stable, slightly improved. 5. Agree with current management. Job ID: [id number]
--- NOTE | 2018-06-15 16:26 | PDOC.PN ---
- Subjective Encounter Start Date: 06/15/18 Encounter Start Time: 16:24 Subjective: feels weak and RN reports postive orthostats again this morning - Objective Resuscitation Status - Order Detail: 06/05/18 22:35 Resuscitation Status Routine Resuscitation Status: FULL: Full Resuscitation MAR Reviewed: Yes Vital Signs & Weight: Vital Signs (12 hours) Temp Pulse Resp BP BP BP BP 06/15/18 12:48 97.5 F L 71 18 143/85 H 06/15/18 09:00 06/15/18 08:00 97.9 F 74 18 97/66 84/53 L 130/75 06/15/18 04:30 98 F 69 18 124/58 L Pulse Ox 06/15/18 12:48 98 06/15/18 09:00 97 06/15/18 08:00 97 06/15/18 04:30 96 Weight Admit Weight 228 lb 9.91 oz Weight 196 lb I&O: 06/14/18 06/15/18 06/16/18 06:59 06:59 06:59 Intake Total 750 2290 Output Total 150 350 Balance 600 1940 Result Diagrams: 06/15/18 05:02 06/15/18 05:02 Phys Exam - Physical Examination Constitutional: NAD HEENT: PERRLA, moist MMs, sclera anicteric, oral pharynx no lesions Neck: no nodes, no JVD Respiratory: no wheezing, clear to auscultation bilateral Cardiovascular: RRR, no significant murmur Gastrointestinal: soft, non-tender, no distention, positive bowel sounds Musculoskeletal: no edema, pulses present Neurological: non-focal, normal sensation, moves all 4 limbs Psychiatric: normal affect, A&O x 3 Skin: no rash Dx/Plan (1) Near syncope Status: Acute (2) Orthostatic hypotension Code(s): I95.1 - ORTHOSTATIC HYPOTENSION Status: Acute Comment: Persistent. SBP drops into 60-80 on sitting associated with dizziness. (3) Protein-calorie malnutrition, severe Code(s): E43 - UNSPECIFIED SEVERE PROTEIN-CALORIE MALNUTRITION Status: Acute (4) CAD (coronary artery disease) Code(s): I25.10 - ATHSCL HEART DISEASE OF [place] CORONARY ARTERY W/O ANG PCTRS Status: Acute (5) Anemia in chronic kidney disease Code(s): N18.9 - CHRONIC KIDNEY DISEASE, UNSPECIFIED; D63.1 - ANEMIA IN CHRONIC KIDNEY DISEASE Status: Chronic Comment: on erythropoetin (6) Antiphospholipid syndrome Code(s): D68.61 - ANTIPHOSPHOLIPID SYNDROME Status: Chronic (7) Atrial fibrillation Code(s): I48.91 - UNSPECIFIED ATRIAL FIBRILLATION Status: Chronic Qualifiers: Atrial fibrillation type: paroxysmal (8) End stage renal disease on dialysis Code(s): N18.6 - END STAGE RENAL DISEASE; Z99.2 - DEPENDENCE ON RENAL DIALYSIS Status: Chronic (9) Gout Code(s): M10.9 - GOUT, UNSPECIFIED Status: Chronic Qualifiers: Gout site: unspecified site Gout etiology: unspecified cause (10) H/O tonic-clonic seizures Code(s): Z86.69 - PERSONAL HISTORY OF DIS OF THE NERVOUS SYS AND SENSE ORGANS Status: Chronic Comment: s/o Lobectomy in past.on Keppra for now (11) HTN (hypertension) Code(s): I10 - ESSENTIAL (PRIMARY) HYPERTENSION Status: Chronic Qualifiers: Hypertension type: essential hypertension (12) History of pulmonary embolism Code(s): Z86.711 - PERSONAL HISTORY OF PULMONARY EMBOLISM Status: Chronic Comment: h/o IVC filter.no OAC due to chr Thrombocytopenia (13) Nonischemic cardiomyopathy Code(s): I42.8 - OTHER CARDIOMYOPATHIES Status: Chronic Comment: s/p BiV AICD (14) Pancytopenia Code(s): D61.818 - OTHER PANCYTOPENIA Status: Chronic (15) Chronic combined systolic and diastolic CHF, NYHA class 2 and MATTY/AHA stage C Code(s): I50.42 - CHRONIC COMBINED SYSTOLIC AND DIASTOLIC HRT FAIL Status: Chronic - Plan PT/OT, DVT proph w/SCDs cont midodrine ,florinef.[facility] hose. -: stop seroquel w possible s/e of orthostatic hypotension -: Pt reports that PPM people were contacted by his & there is no arrythm -: will continue to monitor & replete volume as needed -: monitor [facility]/H.hemodialysis /discussed w [facility] [place] in am * . Review of Systems - Review of Systems Constitutional: weakness, malaise Respiratory: negative: Cough, Dry, Shortness of Breath, Hemoptysis, SOB with Excertion, Pleuritic Pain, Sputum, Wheezing Cardiovascular: light headedness. negative: chest pain, palpitations, orthopnea , paroxysmal nocturnal dyspnea, edema, other Gastrointestinal: negative: Nausea, Vomiting, Abdominal Pain, Diarrhea, Constipation, Melena, Hematochezia, Other Genitourinary: negative: Dysuria, Frequency, Incontinence, Hematuria, Retention , Other Musculoskeletal: negative: Neck Pain, Shoulder Pain, Arm Pain, Back Pain, Hand Pain, Leg Pain, Foot Pain, Other Skin: negative: Rash, Lesions, Loy, Bruising, Other - Medications/Allergies Allergies/Adverse Reactions: Allergies Allergy/AdvReac Type Severity Reaction Status Date / Time phenytoin sodium Allergy Severe Emesis Verified 05/01/18 05:56 [From Dilantin] phenytoin sodium extended Allergy Severe Emesis Verified 05/01/18 05:56 [From Dilantin] midazolam HCl [From Versed] Allergy Intermediate swelling Verified 05/01/18 05: 56 Medications: Current Medications Acetaminophen (Tylenol) 650 mg PO Q4H PRN PRN Reason: Headache/Fever/Mild Pain (1-3) Last Admin: 06/09/18 10:43 Dose: 650 mg Aspirin (Aspirin Chewable) 81 mg PO DAILY [facility] Last Admin: 06/15/18 09:46 Dose: 81 mg Calcium Carbonate (Tums) 1,000 mg PO Q4H PRN PRN Reason: Heartburn or Indigestion Last Admin: 06/14/18 20:18 Dose: 1,000 mg Colchicine (Colcrys) 0.6 mg PO DAILY [facility] Last Admin: 06/15/18 09:46 Dose: 0.6 mg Cyanocobalamin (Vitamin B-12) 1,000 mcg PO DAILY [facility] Last Admin: 06/15/18 09:46 Dose: 1,000 mcg Docusate Sodium (Colace) 100 mg PO BID [facility] Last Admin: 06/15/18 09:46 Dose: 100 mg Epoetin Nain (Procrit) 10,000 units SC [facility] Last Admin: 06/14/18 17:23 Dose: 10,000 units Ferrous Sulfate (Feosol) 325 mg PO BID[facility] Last Admin: 06/15/18 09:45 Dose: 325 mg Fludrocortisone Acetate (Florinef) 0.2 mg PO DAILY [facility] Last Admin: 06/15/18 09:52 Dose: 0.2 mg Folic Acid (Folvite) 1 mg PO DAILY [facility] Last Admin: 06/15/18 09:45 Dose: 1 mg Ipratropium [place] (Atrovent) 2.5 ml NEB Q6H PRN PRN Reason: SOB &/or Wheezing Melatonin (Melatonin) 6 mg PO HS PRN PRN Reason: Insomnia Last Admin: 06/14/18 20:14 Dose: 6 mg Midodrine (Proamatine) 10 mg PO TID [facility] Last Admin: 06/15/18 15:13 Dose: 10 mg Oxcarbazepine (Trileptal) 600 mg PO BID [facility] Last Admin: 06/15/18 09:57 Dose: 600 mg Polyethylene Glycol (Miralax) 17 gm PO DAILY [facility] Last Admin: 06/15/18 09:46 Dose: 17 gm Polyethylene Glycol (Miralax) 17 gm PO DAILYPRN PRN PRN Reason: Constipation Last Admin: 06/13/18 17:06 Dose: 17 gm Senna/Docusate Sodium (Senokot S) 2 tab PO BIDPRN PRN PRN Reason: Constipation Last Admin: 06/14/18 20:12 Dose: 2 tab Sodium Chloride (Flush - Normal Saline) 10 ml IVF Q12HR [facility] Last Admin: 06/15/18 09:50 Dose: 10 ml Sodium Chloride (Flush - Normal Saline) 10 ml IVF PRN PRN PRN Reason: Saline Flush
[2018-06-15] MEDS: Senokot S 8.6-50 MG TAB PO PRN (21:18)
[2018-06-15] MEDS: Melatonin 3 MG TAB PO PRN (21:45)
[2018-06-16 06:56] LABS: #Eosinphils 0.1 thou/uL (0.0-0.7); #Lymphocytes 0.9 thou/uL (1.20-3.40); #Monocytes 0.3 thou/uL (0.11-0.59); %Basophils 0.2 % (0.0-1.0); %Eosinophils 2.1 % (0.0-10.0); %Lymphocytes 21.2 % (21.0-51.0); %Monocytes 6.5 % (0.0-10.0); Hemoglobin 8.1 g/dL (14.0-18.0); Mean Corpuscular Hemoglobin 30.1 pg (27.0-31.0); Mean Corpuscular Volume 91.2 fL (78.0-98.0); Mean Platelet Volume 10.3 fL (7.4-10.4); Platelet Count 68 thou/uL (130-400); RBC Distribution Width 14.1 % (11.5-14.5); Red Blood Cell (RBC) Count 2.67 mill/uL (4.70-6.10); White Blood Cell (WBC) Count 4.3 thou/uL (4.8-10.8)
[2018-06-16 07:16] LABS: Anion Gap 10 mmol/L (10-20); BUN (Urea Nitrogen) 16 mg/dL (8.9-20.6); Calc. Creatinine Clearance 58 mL/min (70-130); Calcium 9.4 mg/dL (7.8-10.44); Carbon Dioxide 29 mmol/L (22-29); Chloride 96 mmol/L (98-107); Estimated GFR-MDRD 36; Glucose 83 mg/dL (70-105); Potassium 3.6 mmol/L (3.5-5.1); Sodium 131 mmol/L (136-145)
[2018-06-16] MEDS ORDERED: Midodrine HCl 5 MG TAB PO SCH (09:01)
[2018-06-16] MEDS: Ferrous Sulfate 325 MG TAB PO SCH ×2 (09:51→16:57)
[2018-06-16] MEDS: Docusate 100 MG CAP PO SCH ×2 (09:52→20:39)
[2018-06-16] MEDS: Polyethylene Glycol 3350 17 GM Packet PO SCH (09:52)
[2018-06-16] MEDS: Colchicine 0.6 MG TAB PO SCH (09:53)
[2018-06-16] MEDS: Folic Acid 1 MG TAB PO SCH (09:54)
[2018-06-16] MEDS: OXcarbazepine 300 MG TAB PO SCH ×2 (09:54→20:40)
[2018-06-16] MEDS: Cyanocobalamin (Vitamin B-12) 1,000 MCG TAB PO SCH (09:54)
[2018-06-16] MEDS: Aspirin Chewable 81 MG TAB PO SCH (09:55)
[2018-06-16] MEDS: Midodrine HCl 5 MG TAB PO SCH ×4 (09:55→20:37)
[2018-06-16] MEDS: Fludrocortisone Acetate 0.1 MG TAB PO SCH (10:00)
--- NOTE | 2018-06-16 10:18 | PRG ---
DATE OF SERVICE: 06/16/2018 SUBJECTIVE: Mr. Boo is a 47-year-old white male with ESRD, being followed by the [facility] for his maintenance hemodialysis. He continues to be having orthostatic hypotension. Due to that, we have minimized fluid removal with dialysis yesterday. In addition, I have increased the midodrine to 12.5 mg p.o. t.i.d. Please note, he is currently also on fludrocortisone. No new complaints today except for some constipation. He is being given laxatives. No chest pain. No shortness of breath. OBJECTIVE: VITAL SIGNS: Blood pressure is noted to be at 100/88 and standing is about 85/56, heart rate is 68, respiratory rate 16, temperature 98.1, and pulse ox 98%. GENERAL: Awake, alert, supine, comfortable, not in overt distress. SKIN: Adequate turgor. HEENT: Slightly pale conjunctivae. Anicteric sclerae. NECK: No neck mass. No carotid bruits. No JVD. CHEST: No deformities. LUNGS: Clear breath sounds. HEART: Normal sinus rhythm. No murmurs. No gallops. No rubs. ABDOMEN: Globular, soft, and nontender. EXTREMITIES: No edema. No deformities. MEDICATIONS: Medications of June 16, 2018, was reviewed. LABORATORY DATA: Laboratories of June 16, 2018; white count 4.2, hemoglobin 8.1, hematocrit 24.4. Sodium 131, potassium 3.6, chloride 96, carbon dioxide 29, BUN 16, creatinine 1.99, glucose 83, and calcium 9.4. ASSESSMENT AND PLAN: 1. End-stage renal disease/chronic renal failure, continuing hemodialysis regimen of Wednesday, Wednesday, and Wednesday. Minimal fluid removal due to the orthostatic hypotension. 2. Orthostatic hypotension. I did increase the midodrine to 12.5 mg p.o. t.i.d. The recommendation is not to give him more than 40 mg per day. If needed, we can add another medication with this patient. 3. Chronic anemia - currently, on Epogen. Recently Epogen increased to 10,000 units subcu weekly. We will recheck basic metabolic panel and CBC in a.m. Job ID: [id number]
[2018-06-16] MEDS: Ondansetron PF 4 MG/2 ML Vial SLOW IVP PRN ×2 (15:10→20:31)
[2018-06-16] MEDS ORDERED: Bisacodyl 5 MG TAB PO PRN (15:19)
--- NOTE | 2018-06-16 15:21 | PDOC.PN ---
- Subjective Encounter Start Date: 06/16/18 Encounter Start Time: 15:19 Subjective: Fabout the same. stood up this morning w PT.later felt dizzy -: c/o constipation - Objective Resuscitation Status - Order Detail: 06/05/18 22:35 Resuscitation Status Routine Resuscitation Status: FULL: Full Resuscitation Vital Signs & Weight: Vital Signs (12 hours) Temp Pulse Resp BP BP BP Pulse Ox 06/16/18 11:58 97.4 F L 67 18 124/72 95 06/16/18 10:00 98 06/16/18 08:17 98.1 F 68 16 100/68 85/56 L 98 06/16/18 08:00 137/91 H 06/16/18 04:00 98.1 F 66 16 124/71 98 Weight Admit Weight 228 lb 9.91 oz Weight 196 lb I&O: 06/15/18 06/16/18 06/17/18 06:59 06:59 06:59 Intake Total 2290 1947 Output Total 350 240 Balance 1940 1707 Result Diagrams: 06/16/18 06:20 06/16/18 06:20 Phys Exam - Physical Examination Constitutional: NAD weak and pale .lying in bed. HEENT: PERRLA, moist MMs, sclera anicteric, oral pharynx no lesions Respiratory: no wheezing, no rales, no rhonchi, clear to auscultation bilateral Cardiovascular: RRR, no significant murmur Gastrointestinal: soft, non-tender, no distention, positive bowel sounds Musculoskeletal: no edema, pulses present Neurological: non-focal, normal sensation, moves all 4 limbs Psychiatric: normal affect, A&O x 3 Skin: no rash Dx/Plan (1) Near syncope Status: Acute (2) Orthostatic hypotension Code(s): I95.1 - ORTHOSTATIC HYPOTENSION Status: Acute Comment: Persistent. SBP drops into 60-80 on sitting associated with dizziness. (3) Protein-calorie malnutrition, severe Code(s): E43 - UNSPECIFIED SEVERE PROTEIN-CALORIE MALNUTRITION Status: Acute (4) CAD (coronary artery disease) Code(s): I25.10 - ATHSCL HEART DISEASE OF [place] CORONARY ARTERY W/O ANG PCTRS Status: Acute (5) Anemia in chronic kidney disease Code(s): N18.9 - CHRONIC KIDNEY DISEASE, UNSPECIFIED; D63.1 - ANEMIA IN CHRONIC KIDNEY DISEASE Status: Chronic Comment: on erythropoetin (6) Antiphospholipid syndrome Code(s): D68.61 - ANTIPHOSPHOLIPID SYNDROME Status: Chronic (7) Atrial fibrillation Code(s): I48.91 - UNSPECIFIED ATRIAL FIBRILLATION Status: Chronic Qualifiers: Atrial fibrillation type: paroxysmal (8) End stage renal disease on dialysis Code(s): N18.6 - END STAGE RENAL DISEASE; Z99.2 - DEPENDENCE ON RENAL DIALYSIS Status: Chronic (9) Gout Code(s): M10.9 - GOUT, UNSPECIFIED Status: Chronic Qualifiers: Gout site: unspecified site Gout etiology: unspecified cause (10) H/O tonic-clonic seizures Code(s): Z86.69 - PERSONAL HISTORY OF DIS OF THE NERVOUS SYS AND SENSE ORGANS Status: Chronic Comment: s/o Lobectomy in past.on Keppra for now (11) HTN (hypertension) Code(s): I10 - ESSENTIAL (PRIMARY) HYPERTENSION Status: Chronic Qualifiers: Hypertension type: essential hypertension (12) History of pulmonary embolism Code(s): Z86.711 - PERSONAL HISTORY OF PULMONARY EMBOLISM Status: Chronic Comment: h/o IVC filter.no OAC due to chr Thrombocytopenia (13) Nonischemic cardiomyopathy Code(s): I42.8 - OTHER CARDIOMYOPATHIES Status: Chronic Comment: s/p BiV AICD (14) Pancytopenia Code(s): D61.818 - OTHER PANCYTOPENIA Status: Chronic (15) Chronic combined systolic and diastolic CHF, NYHA class 2 and MATTY/AHA stage C Code(s): I50.42 - CHRONIC COMBINED SYSTOLIC AND DIASTOLIC HRT FAIL Status: Chronic - Plan DVT proph w/SCDs continue to monitor.seroquel stopped yesterday. -: midodrine increased.may need IVF if Bp lower -: encouraged to sit up in bed for short periods .TRINITY hose when standing up -: Hemodilaysis.monitor renal Fx -: not stable for DC * . Review of Systems - Review of Systems Constitutional: weakness, malaise. negative: fever, chills, sweats, other ENT: negative: Ear Pain, Ear Discharge, Nose Pain, Nose Discharge, Nose Congestion, Mouth Pain, Mouth Swelling, Throat Pain, Throat Swelling, Other Respiratory: negative: Cough, Dry, Shortness of Breath, Hemoptysis, SOB with Excertion, Pleuritic Pain, Sputum, Wheezing Cardiovascular: light headedness. negative: chest pain, palpitations, orthopnea , paroxysmal nocturnal dyspnea, edema, other Gastrointestinal: negative: Nausea, Vomiting, Abdominal Pain, Diarrhea, Constipation, Melena, Hematochezia, Other Genitourinary: negative: Dysuria, Frequency, Incontinence, Hematuria, Retention , Other Musculoskeletal: negative: Neck Pain, Shoulder Pain, Arm Pain, Back Pain, Hand Pain, Leg Pain, Foot Pain, Other Neurological: negative: Weakness, Numbness, Incoordination, Change in Speech, Confusion, Seizures, Other - Medications/Allergies Allergies/Adverse Reactions: Allergies Allergy/AdvReac Type Severity Reaction Status Date / Time phenytoin sodium Allergy Severe Emesis Verified 05/01/18 05:56 [From Dilantin] phenytoin sodium extended Allergy Severe Emesis Verified 05/01/18 05:56 [From Dilantin] midazolam HCl [From Versed] Allergy Intermediate swelling Verified 05/01/18 05: 56 Medications: Current Medications Acetaminophen (Tylenol) 650 mg PO Q4H PRN PRN Reason: Headache/Fever/Mild Pain (1-3) Last Admin: 06/09/18 10:43 Dose: 650 mg Aspirin (Aspirin Chewable) 81 mg PO DAILY [facility] Last Admin: 06/16/18 09:55 Dose: 81 mg Calcium Carbonate (Tums) 1,000 mg PO Q4H PRN PRN Reason: Heartburn or Indigestion Last Admin: 06/14/18 20:18 Dose: 1,000 mg Colchicine (Colcrys) 0.6 mg PO DAILY [facility] Last Admin: 06/16/18 09:53 Dose: Not Given Cyanocobalamin (Vitamin B-12) 1,000 mcg PO DAILY [facility] Last Admin: 06/16/18 09:54 Dose: 1,000 mcg Docusate Sodium (Colace) 100 mg PO BID [facility] Last Admin: 06/16/18 09:52 Dose: 100 mg Epoetin Nain (Procrit) 10,000 units SC WILLCALL [facility] Last Admin: 06/14/18 17:23 Dose: 10,000 units Ferrous Sulfate (Feosol) 325 mg PO BID[facility] Last Admin: 06/16/18 09:51 Dose: Not Given Fludrocortisone Acetate (Florinef) 0.2 mg PO DAILY [facility] Last Admin: 06/16/18 10:00 Dose: 0.2 mg Folic Acid (Folvite) 1 mg PO DAILY [facility] Last Admin: 06/16/18 09:54 Dose: 1 mg Ipratropium [place] (Atrovent) 2.5 ml NEB Q6H PRN PRN Reason: SOB &/or Wheezing Melatonin (Melatonin) 6 mg PO HS PRN PRN Reason: Insomnia Last Admin: 06/15/18 21:45 Dose: 6 mg Midodrine (Proamatine) 12.5 mg PO TID [facility] Last Admin: 06/16/18 14:27 Dose: 12.5 mg Ondansetron HCl (Zofran) 4 mg SLOW IVP Q6H PRN PRN Reason: Nausea/Vomiting Last Admin: 06/16/18 15:10 Dose: 4 mg Oxcarbazepine (Trileptal) 600 mg PO BID [facility] Last Admin: 06/16/18 09:54 Dose: 600 mg Polyethylene Glycol (Miralax) 17 gm PO DAILY [facility] Last Admin: 06/16/18 09:52 Dose: 17 gm Polyethylene Glycol (Miralax) 17 gm PO DAILYPRN PRN PRN Reason: Constipation Last Admin: 06/13/18 17:06 Dose: 17 gm Senna/Docusate Sodium (Senokot S) 2 tab PO BIDPRN PRN PRN Reason: Constipation Last Admin: 06/15/18 21:18 Dose: 2 tab Sodium Chloride (Flush - Normal Saline) 10 ml IVF Q12HR [facility] Last Admin: 06/16/18 09:55 Dose: 10 ml Sodium Chloride (Flush - Normal Saline) 10 ml IVF PRN PRN PRN Reason: Saline Flush Last Admin: 06/16/18 15:10 Dose: 10 ml
[2018-06-17 06:40] LABS: Anion Gap 10 mmol/L (10-20); BUN (Urea Nitrogen) 21 mg/dL (8.9-20.6); Calc. Creatinine Clearance 43 mL/min (70-130); Calcium 9.3 mg/dL (7.8-10.44); Carbon Dioxide 29 mmol/L (22-29); Chloride 93 mmol/L (98-107); Estimated GFR-MDRD 26; Glucose 77 mg/dL (70-105); Potassium 3.7 mmol/L (3.5-5.1); Sodium 128 mmol/L (136-145)
[2018-06-17 06:46] LABS: #Eosinphils 0.1 thou/uL (0.0-0.7); #Lymphocytes 1.2 thou/uL (1.20-3.40); #Monocytes 0.3 thou/uL (0.11-0.59); #Neutrophils 2.3 thou/uL (1.40-6.50); %Eosinophils 2.2 % (0.0-10.0); %Lymphocytes 29.5 % (21.0-51.0); %Monocytes 7.8 % (0.0-10.0); %Neutrophils 59.6 % (42.0-75.0); Hemoglobin 8.1 g/dL (14.0-18.0); Mean Corpuscular HGB CONC 32.7 g/dL (32.0-36.0); Mean Corpuscular Hemoglobin 29.8 pg (27.0-31.0); Mean Corpuscular Volume 91.2 fL (78.0-98.0); Mean Platelet Volume 9.8 fL (7.4-10.4); Platelet Count 78 thou/uL (130-400); RBC Distribution Width 14.1 % (11.5-14.5); Red Blood Cell (RBC) Count 2.71 mill/uL (4.70-6.10); White Blood Cell (WBC) Count 3.9 thou/uL (4.8-10.8)
[2018-06-17] MEDS: Midodrine HCl 5 MG TAB PO SCH ×3 (09:16→20:41)
[2018-06-17] MEDS: Fludrocortisone Acetate 0.1 MG TAB PO SCH (09:19)
[2018-06-17] MEDS: Docusate 100 MG CAP PO SCH ×2 (09:19→20:41)
[2018-06-17] MEDS: Cyanocobalamin (Vitamin B-12) 1,000 MCG TAB PO SCH (09:19)
[2018-06-17] MEDS: Ferrous Sulfate 325 MG TAB PO SCH ×2 (09:19→17:45)
[2018-06-17] MEDS: Folic Acid 1 MG TAB PO SCH (09:19)
[2018-06-17] MEDS: OXcarbazepine 300 MG TAB PO SCH ×2 (09:19→20:41)
[2018-06-17] MEDS: Aspirin Chewable 81 MG TAB PO SCH (09:19)
[2018-06-17] MEDS: Colchicine 0.6 MG TAB PO SCH (09:20)
[2018-06-17] MEDS: Polyethylene Glycol 3350 17 GM Packet PO SCH ×2 (09:20→20:42)
--- NOTE | 2018-06-17 10:08 | PRG ---
DATE OF SERVICE: 06/17/2018 SUBJECTIVE: Mr. Boo is a 47-year-old white male being followed by the [facility] for his maintenance hemodialysis. I have scheduled him for dialysis this afternoon. Due to the low blood pressure, we are minimizing fluid removal with this patient. He is complaining of some nausea and vomiting, this started yesterday. It was considered this may be related to the increased dose of his midodrine. I told him we can decrease the dose of the midodrine any time. I did increase the midodrine due to the persistent orthostatic hypotension by the patient. We will observe him for another day whether he will have persistent nausea and vomiting. No other complaints. No chest pain or shortness of breath. OBJECTIVE: VITAL SIGNS: Blood pressure 124/71, heart rate 68, respiratory rate 16, temperature 97.4, and pulse ox 96 percent. GENERAL: Awake, alert, comfortable, supine, not in overt distress. SKIN: Adequate turgor. HEENT: He has slightly pale conjunctivae. Anicteric sclerae. No neck mass. No carotid bruits. No JVD. CHEST: No deformities. LUNGS: Clear breath sounds. No wheezing. No crackles. HEART: Normal sinus rhythm. No murmurs, gallops, or rubs. ABDOMEN: Globular, soft, nontender. No masses. EXTREMITIES: Trace edema. MEDICATIONS: Medications of June 17, 2018, reviewed. LABORATORY DATA: June 17, 2018; white count 3.9, hemoglobin 8.1. Sodium 128, potassium 3.7, chloride 93, carbon dioxide 29, BUN 21, creatinine 2.65, glucose 77, and calcium 9.3. ASSESSMENT: 1. Mild hyponatremia-this could simply reflect decreased sodium balance with this patient. He has not in overt pulmonary edema or in overt congestive heart failure to suggest a dilutional hyponatremia. We will minimize fluid removal today. 2. End-stage renal disease, stable. We will continue current hemodialysis regimen on Wednesday, Wednesday, and Wednesday. Again, due to the low blood pressure, decreased the fluid removal. 3. Orthostatic hypotension. Midodrine was increased yesterday from 10 t.i.d. to 12.5 mg p.o. t.i.d. Unclear, if it is causing the nausea and vomiting. If he is still persistently nauseous and vomiting, we will consider decreasing him back to 10 mg tablet t.i.d. 4. Anemia, stable. Continuing weekly [place]ogen[place] [address] units subcutaneous every week. Job ID: [id number]
[2018-06-17] MEDS ORDERED: Heparin 1,000 UNITS/ML VIAL ONE (11:11)
[2018-06-17] MEDS: OXcarbazepine 150 MG TAB PO SCH (11:38)
--- NOTE | 2018-06-17 14:32 | PDOC.PN ---
- Subjective Encounter Start Date: 06/17/18 Encounter Start Time: 14:29 Subjective: c/o constipation and vomited twice this am -: passing ags and two hard BM yesterday -: no more lightheadedness on sitting - Objective Resuscitation Status - Order Detail: 06/05/18 22:35 Resuscitation Status Routine Resuscitation Status: FULL: Full Resuscitation MAR Reviewed: Yes Vital Signs & Weight: Vital Signs (12 hours) Temp Pulse Resp BP BP BP BP 06/17/18 12:16 97.4 F L 70 16 136/76 06/17/18 11:52 97.9 F 60 14 124/71 06/17/18 08:00 06/17/18 07:45 97.4 F L 68 16 124/71 06/17/18 07:30 103/74 125/67 92/68 06/17/18 05:57 98.2 F 52 L 16 128/62 Pulse Ox 06/17/18 12:16 97 06/17/18 11:52 96 06/17/18 08:00 96 06/17/18 07:45 96 06/17/18 07:30 06/17/18 05:57 96 Weight Admit Weight 228 lb 9.91 oz Weight 196 lb I&O: 06/16/18 06/17/18 06/18/18 06:59 06:59 06:59 Intake Total 1947 1070 Output Total 240 240 Balance 1707 830 Result Diagrams: 06/17/18 05:30 06/17/18 05:30 Phys Exam - Physical Examination Constitutional: NAD sat up w/o problems HEENT: PERRLA, moist MMs, sclera anicteric, oral pharynx no lesions Neck: no nodes, no JVD, supple, full ROM Respiratory: no wheezing, no rales, no rhonchi Cardiovascular: RRR, no significant murmur Gastrointestinal: soft, non-tender, no distention, positive bowel sounds no rigidity or guarding Musculoskeletal: no edema, pulses present Neurological: non-focal, normal sensation, moves all 4 limbs Psychiatric: normal affect, A&O x 3 Skin: no rash Dx/Plan (1) Near syncope Status: Acute (2) Orthostatic hypotension Code(s): I95.1 - ORTHOSTATIC HYPOTENSION Status: Acute Comment: improved (3) Protein-calorie malnutrition, severe Code(s): E43 - UNSPECIFIED SEVERE PROTEIN-CALORIE MALNUTRITION Status: Acute (4) CAD (coronary artery disease) Code(s): I25.10 - ATHSCL HEART DISEASE OF [place] CORONARY ARTERY W/O ANG PCTRS Status: Acute (5) Anemia in chronic kidney disease Code(s): N18.9 - CHRONIC KIDNEY DISEASE, UNSPECIFIED; D63.1 - ANEMIA IN CHRONIC KIDNEY DISEASE Status: Chronic Comment: on erythropoetin (6) Antiphospholipid syndrome Code(s): D68.61 - ANTIPHOSPHOLIPID SYNDROME Status: Chronic (7) Atrial fibrillation Code(s): I48.91 - UNSPECIFIED ATRIAL FIBRILLATION Status: Chronic Qualifiers: Atrial fibrillation type: paroxysmal (8) End stage renal disease on dialysis Code(s): N18.6 - END STAGE RENAL DISEASE; Z99.2 - DEPENDENCE ON RENAL DIALYSIS Status: Chronic (9) Gout Code(s): M10.9 - GOUT, UNSPECIFIED Status: Chronic Qualifiers: Gout site: unspecified site Gout etiology: unspecified cause (10) H/O tonic-clonic seizures Code(s): Z86.69 - PERSONAL HISTORY OF DIS OF THE NERVOUS SYS AND SENSE ORGANS Status: Chronic Comment: s/o Lobectomy in past.on Keppra for now (11) HTN (hypertension) Code(s): I10 - ESSENTIAL (PRIMARY) HYPERTENSION Status: Chronic Qualifiers: Hypertension type: essential hypertension (12) History of pulmonary embolism Code(s): Z86.711 - PERSONAL HISTORY OF PULMONARY EMBOLISM Status: Chronic Comment: h/o IVC filter.no OAC due to chr Thrombocytopenia (13) Nonischemic cardiomyopathy Code(s): I42.8 - OTHER CARDIOMYOPATHIES Status: Chronic Comment: s/p BiV AICD (14) Pancytopenia Code(s): D61.818 - OTHER PANCYTOPENIA Status: Chronic (15) Chronic combined systolic and diastolic CHF, NYHA class 2 and MATTY/AHA stage C Code(s): I50.42 - CHRONIC COMBINED SYSTOLIC AND DIASTOLIC HRT FAIL Status: Chronic - Plan PT/OT, respiratory therapy, incentive spirometry, out of bed/ambulate, DVT proph w/SCDs change to CLD.1 nephr at a time ,not two -: Miralax BID w colace and dulcolax.no sign of obstruction.good Bowel sounds. -: DC likely tomorrow if vomiting stops -: BP much better w negative orthostatics today -: hemodialysis.monitor renal Fx * . Review of Systems - Review of Systems Constitutional: weakness, malaise - Medications/Allergies Allergies/Adverse Reactions: Allergies Allergy/AdvReac Type Severity Reaction Status Date / Time phenytoin sodium Allergy Severe Emesis Verified 05/01/18 05:56 [From Dilantin] phenytoin sodium extended Allergy Severe Emesis Verified 05/01/18 05:56 [From Dilantin] midazolam HCl [From Versed] Allergy Intermediate swelling Verified 05/01/18 05: 56 Medications: Current Medications Acetaminophen (Tylenol) 650 mg PO Q4H PRN PRN Reason: Headache/Fever/Mild Pain (1-3) Last Admin: 06/09/18 10:43 Dose: 650 mg Aspirin (Aspirin Chewable) 81 mg PO DAILY [facility] Last Admin: 06/17/18 09:19 Dose: 81 mg Bisacodyl (Dulcolax) 10 mg PO DAILYPRN PRN PRN Reason: Constipation Calcium Carbonate (Tums) 1,000 mg PO Q4H PRN PRN Reason: Heartburn or Indigestion Last Admin: 06/14/18 20:18 Dose: 1,000 mg Colchicine (Colcrys) 0.6 mg PO DAILY [facility] Last Admin: 06/17/18 09:20 Dose: Not Given Cyanocobalamin (Vitamin B-12) 1,000 mcg PO DAILY [facility] Last Admin: 06/17/18 09:19 Dose: 1,000 mcg Docusate Sodium (Colace) 100 mg PO BID [facility] Last Admin: 06/17/18 09:19 Dose: 100 mg Epoetin Nain (Procrit) 10,000 units SC WILLCALL [facility] Last Admin: 06/14/18 17:23 Dose: 10,000 units Ferrous Sulfate (Feosol) 325 mg PO BID-[facility] Last Admin: 06/17/18 09:19 Dose: Not Given Fludrocortisone Acetate (Florinef) 0.2 mg PO DAILY [facility] Last Admin: 06/17/18 09:19 Dose: 0.2 mg Folic Acid (Folvite) 1 mg PO DAILY [facility] Last Admin: 06/17/18 09:19 Dose: 1 mg Ipratropium [place] (Atrovent) 2.5 ml NEB Q6H PRN PRN Reason: SOB &/or Wheezing Melatonin (Melatonin) 6 mg PO HS PRN PRN Reason: Insomnia Last Admin: 06/15/18 21:45 Dose: 6 mg Midodrine (Proamatine) 12.5 mg PO TID [facility] Last Admin: 06/17/18 09:16 Dose: 12.5 mg Ondansetron HCl (Zofran) 4 mg SLOW IVP Q6H PRN PRN Reason: Nausea/Vomiting Last Admin: 06/16/18 20:31 Dose: 4 mg Oxcarbazepine (Trileptal) 600 mg PO BID [facility] Last Admin: 06/17/18 09:19 Dose: 600 mg Polyethylene Glycol (Miralax) 17 gm PO BID [facility] Sodium Chloride (Flush - Normal Saline) 10 ml IVF Q12HR [facility] Last Admin: 06/17/18 09:21 Dose: 10 ml Sodium Chloride (Flush - Normal Saline) 10 ml IVF PRN PRN PRN Reason: Saline Flush Last Admin: 06/16/18 15:10 Dose: 10 ml
[2018-06-17] MEDS: Melatonin 3 MG TAB PO PRN (20:50)
[2018-06-18] MEDS ORDERED: Sodium Chloride 0.9% 500 ML IV SCH (08:45)
[2018-06-18] MEDS: Ferrous Sulfate 325 MG TAB PO SCH ×2 (09:00→17:36)
[2018-06-18] MEDS: Midodrine HCl 5 MG TAB PO SCH ×3 (09:00→19:59)
[2018-06-18] MEDS: OXcarbazepine 300 MG TAB PO SCH ×2 (09:01→20:01)
[2018-06-18] MEDS: Fludrocortisone Acetate 0.1 MG TAB PO SCH (09:02)
[2018-06-18] MEDS: Cyanocobalamin (Vitamin B-12) 1,000 MCG TAB PO SCH (09:02)
[2018-06-18] MEDS: Aspirin Chewable 81 MG TAB PO SCH (09:02)
[2018-06-18] MEDS: Folic Acid 1 MG TAB PO SCH (09:02)
[2018-06-18] MEDS: Docusate 100 MG CAP PO SCH (09:02)
[2018-06-18] MEDS: Colchicine 0.6 MG TAB PO SCH (09:03)
[2018-06-18] MEDS: Polyethylene Glycol 3350 17 GM Packet PO SCH (09:04)
[2018-06-18 11:13] LABS: Anion Gap 11 mmol/L (10-20); BUN (Urea Nitrogen) 10 mg/dL (8.9-20.6); Calc. Creatinine Clearance 52 mL/min (70-130); Calcium 8.8 mg/dL (7.8-10.44); Carbon Dioxide 29 mmol/L (22-29); Chloride 100 mmol/L (98-107); Estimated GFR-MDRD 32; Glucose 92 mg/dL (70-105); Potassium 4.6 mmol/L (3.5-5.1); Sodium 135 mmol/L (136-145)
[2018-06-18] MEDS ORDERED: Docusate 100 MG CAP PO PRN (11:37)
--- NOTE | 2018-06-18 12:42 | PRG ---
DATE OF SERVICE: 06/18/2018 SUBJECTIVE: Mr. Boo is a 47-year-old white male with ESRD, followed up by the Renal Service for his maintenance hemodialysis. He is undergoing dialysis and tolerating said treatment. He also is persistently hypotensive/orthostatic and we recently increased the midodrine to 12.5 mg p.o. t.i.d. We will also minimizing fluid removal with dialysis. No new complaints today. He was complaining with nausea and vomiting, but this improved when he had his regular bowel movement. No complaints of chest pain or shortness of breath. OBJECTIVE: VITAL SIGNS: Blood pressure is 126/82 with orthostatic of 89/62, heart rate 61, respiratory rate 18, temperature 97.7, and pulse ox 94%. GENERAL: The patient is noted to be awake, alert, supine, comfortable, not in distress. SKIN: Adequate turgor. HEENT: He has slightly pale conjunctivae. Anicteric sclerae. No neck mass. No carotid bruits. No JVD. CHEST: No deformities. LUNGS: Clear breath sounds. HEART: Normal sinus rhythm. No murmurs, gallops, or rubs. ABDOMEN: Globular, soft, nontender. No masses. EXTREMITIES: No edema. No deformities. MEDICATIONS: Medications of June 18, 2018, reviewed. LABORATORY DATA: Laboratories of June 17, 2018; white count 3.9, hemoglobin 8.1. June 18, 2018, BUN 10, creatinine 2.19, potassium 4.6, sodium 135, chloride 100, carbon dioxide 29, glucose 92, calcium 8.8. ASSESSMENT AND PLAN: 1. End-stage renal disease, stable. We will continue 3 times a week hemodialysis. Minimal fluid removal due to the orthostatic hypotension. 2. Orthostatic hypotension. Currently, the patient is on an increased dose of midodrine at 12.5 mg p.o. t.i.d. In addition, he has been started on Florinef 0.2 mg daily. 3. Anemia, currently [place] supplementation [place] [address] units subcu daily. Overall, prognosis remains guarded. Continue supportive care. Job ID: [id number]
--- NOTE | 2018-06-18 14:17 | PDOC.PN ---
- Subjective Encounter Start Date: 06/18/18 Encounter Start Time: 14:15 Subjective: had 3 losse explosive BMs this morning.no more vomiting -: still dizzy and weak - Objective Resuscitation Status - Order Detail: 06/05/18 22:35 Resuscitation Status Routine Resuscitation Status: FULL: Full Resuscitation MAR Reviewed: Yes Vital Signs & Weight: Vital Signs (12 hours) Temp Pulse Resp BP BP BP Pulse Ox 06/18/18 08:00 97.7 F 61 18 126/82 89/62 L 62/43 L 94 L 06/18/18 05:33 97.9 F 62 16 111/57 L 96 Weight Admit Weight 228 lb 9.91 oz Weight 196 lb I&O: 06/17/18 06/18/18 06/19/18 06:59 06:59 06:59 Intake Total 1070 1410 200 Output Total 240 1500 Balance 830 -90 200 Result Diagrams: 06/17/18 05:30 06/18/18 10:42 Phys Exam - Physical Examination Constitutional: NAD HEENT: PERRLA, moist MMs, sclera anicteric, oral pharynx no lesions Neck: no nodes, no JVD, supple, full ROM Respiratory: no wheezing, no rales, no rhonchi, clear to auscultation bilateral Cardiovascular: RRR, no significant murmur, no rub Gastrointestinal: soft, non-tender, no distention, positive bowel sounds Musculoskeletal: no edema, pulses present Neurological: non-focal, normal sensation, moves all 4 limbs Psychiatric: normal affect, A&O x 3 Skin: no rash Dx/Plan (1) Near syncope Status: Acute (2) Orthostatic hypotension Code(s): I95.1 - ORTHOSTATIC HYPOTENSION Status: Acute Comment: improved yesterday but low Bp again today.on Midodrine and Florinef.Coreg stopped (3) Protein-calorie malnutrition, severe Code(s): E43 - UNSPECIFIED SEVERE PROTEIN-CALORIE MALNUTRITION Status: Chronic (4) CAD (coronary artery disease) Code(s): I25.10 - ATHSCL HEART DISEASE OF [place] CORONARY ARTERY W/O ANG PCTRS Status: Chronic (5) Anemia in chronic kidney disease Code(s): N18.9 - CHRONIC KIDNEY DISEASE, UNSPECIFIED; D63.1 - ANEMIA IN CHRONIC KIDNEY DISEASE Status: Chronic Comment: on erythropoetin (6) Antiphospholipid syndrome Code(s): D68.61 - ANTIPHOSPHOLIPID SYNDROME Status: Chronic (7) Atrial fibrillation Code(s): I48.91 - UNSPECIFIED ATRIAL FIBRILLATION Status: Chronic Qualifiers: Atrial fibrillation type: paroxysmal (8) End stage renal disease on dialysis Code(s): N18.6 - END STAGE RENAL DISEASE; Z99.2 - DEPENDENCE ON RENAL DIALYSIS Status: Chronic (9) Gout Code(s): M10.9 - GOUT, UNSPECIFIED Status: Chronic Qualifiers: Gout site: unspecified site Gout etiology: unspecified cause (10) H/O tonic-clonic seizures Code(s): Z86.69 - PERSONAL HISTORY OF DIS OF THE NERVOUS SYS AND SENSE ORGANS Status: Chronic Comment: s/o Lobectomy in past.on Trileptal for now (11) HTN (hypertension) Code(s): I10 - ESSENTIAL (PRIMARY) HYPERTENSION Status: Chronic Qualifiers: Hypertension type: essential hypertension (12) History of pulmonary embolism Code(s): Z86.711 - PERSONAL HISTORY OF PULMONARY EMBOLISM Status: Chronic Comment: h/o IVC filter.no OAC due to chr Thrombocytopenia (13) Nonischemic cardiomyopathy Code(s): I42.8 - OTHER CARDIOMYOPATHIES Status: Chronic Comment: s/p BiV AICD (14) Pancytopenia Code(s): D61.818 - OTHER PANCYTOPENIA Status: Chronic (15) Chronic combined systolic and diastolic CHF, NYHA class 2 and MATTY/AHA stage C Code(s): I50.42 - CHRONIC COMBINED SYSTOLIC AND DIASTOLIC HRT FAIL Status: Chronic - Plan DVT proph w/SCDs DC cochicine as pt denies any H/O gout -: checkk ECHo and AICD interrogation to r/o cardiac causes -: IVF bolus again today -: monitor -: am labs * . Review of Systems - Review of Systems Constitutional: weakness, malaise Respiratory: negative: Cough, Dry, Shortness of Breath, Hemoptysis, SOB with Excertion, Pleuritic Pain, Sputum, Wheezing Cardiovascular: negative: chest pain, palpitations, orthopnea, paroxysmal nocturnal dyspnea, edema, light headedness, other Gastrointestinal: negative: Nausea, Vomiting, Abdominal Pain, Diarrhea, Constipation, Melena, Hematochezia, Other Genitourinary: negative: Dysuria, Frequency, Incontinence, Hematuria, Retention , Other Neurological: negative: Weakness, Numbness, Incoordination, Change in Speech, Confusion, Seizures, Other - Medications/Allergies Allergies/Adverse Reactions: Allergies Allergy/AdvReac Type Severity Reaction Status Date / Time phenytoin sodium Allergy Severe Emesis Verified 05/01/18 05:56 [From Dilantin] phenytoin sodium extended Allergy Severe Emesis Verified 05/01/18 05:56 [From Dilantin] midazolam HCl [From Versed] Allergy Intermediate swelling Verified 05/01/18 05: 56 Medications: Current Medications Acetaminophen (Tylenol) 650 mg PO Q4H PRN PRN Reason: Headache/Fever/Mild Pain (1-3) Last Admin: 06/09/18 10:43 Dose: 650 mg Aspirin (Aspirin Chewable) 81 mg PO DAILY [facility] Last Admin: 06/18/18 09:02 Dose: 81 mg Bisacodyl (Dulcolax) 10 mg PO DAILYPRN PRN PRN Reason: Constipation Calcium Carbonate (Tums) 1,000 mg PO Q4H PRN PRN Reason: Heartburn or Indigestion Last Admin: 06/14/18 20:18 Dose: 1,000 mg Cyanocobalamin (Vitamin B-12) 1,000 mcg PO DAILY [facility] Last Admin: 06/18/18 09:02 Dose: 1,000 mcg Docusate Sodium (Colace) 100 mg PO BIDPRN PRN PRN Reason: Constipation Epoetin Nain (Procrit) 10,000 units SC WILLCALL [facility] Last Admin: 06/14/18 17:23 Dose: 10,000 units Ferrous Sulfate (Feosol) 325 mg PO BID-[facility] Last Admin: 06/18/18 09:00 Dose: 325 mg Fludrocortisone Acetate (Florinef) 0.2 mg PO DAILY [facility] Last Admin: 06/18/18 09:02 Dose: 0.2 mg Folic Acid (Folvite) 1 mg PO DAILY [facility] Last Admin: 06/18/18 09:02 Dose: 1 mg Ipratropium [place] (Atrovent) 2.5 ml NEB Q6H PRN PRN Reason: SOB &/or Wheezing Melatonin (Melatonin) 6 mg PO HS PRN PRN Reason: Insomnia Last Admin: 06/17/18 20:50 Dose: 6 mg Midodrine (Proamatine) 12.5 mg PO TID [facility] Last Admin: 06/18/18 09:00 Dose: 12.5 mg Ondansetron HCl (Zofran) 4 mg SLOW IVP Q6H PRN PRN Reason: Nausea/Vomiting Last Admin: 06/16/18 20:31 Dose: 4 mg Oxcarbazepine (Trileptal) 600 mg PO BID [facility] Last Admin: 06/18/18 09:01 Dose: 600 mg Sodium Chloride (Flush - Normal Saline) 10 ml IVF Q12HR [facility] Last Admin: 06/18/18 09:04 Dose: 10 ml Sodium Chloride (Flush - Normal Saline) 10 ml IVF PRN PRN PRN Reason: Saline Flush Last Admin: 06/16/18 15:10 Dose: 10 ml
[2018-06-18] MEDS: Melatonin 3 MG TAB PO PRN (20:07)
[2018-06-19 06:46] LABS: Anion Gap 9 mmol/L (10-20); BUN (Urea Nitrogen) 15 mg/dL (8.9-20.6); Calc. Creatinine Clearance 43 mL/min (70-130); Calcium 8.8 mg/dL (7.8-10.44); Carbon Dioxide 28 mmol/L (22-29); Chloride 100 mmol/L (98-107); Estimated GFR-MDRD 26; Glucose 76 mg/dL (70-105); Potassium 4.1 mmol/L (3.5-5.1); Sodium 133 mmol/L (136-145)
[2018-06-19] MEDS: OXcarbazepine 300 MG TAB PO SCH ×2 (08:50→20:33)
[2018-06-19] MEDS: Fludrocortisone Acetate 0.1 MG TAB PO SCH (08:51)
[2018-06-19] MEDS: Midodrine HCl 5 MG TAB PO SCH ×3 (08:53→20:31)
[2018-06-19] MEDS: Folic Acid 1 MG TAB PO SCH (08:54)
[2018-06-19] MEDS: Aspirin Chewable 81 MG TAB PO SCH (08:54)
[2018-06-19] MEDS: Cyanocobalamin (Vitamin B-12) 1,000 MCG TAB PO SCH (08:54)
[2018-06-19] MEDS: Ferrous Sulfate 325 MG TAB PO SCH ×2 (08:54→16:25)
--- NOTE | 2018-06-19 13:41 | PDOC.PN ---
- Subjective Encounter Start Date: 06/19/18 Encounter Start Time: 13:39 Subjective: feels better . -: still positive for othrostaics drop in BP thought lying/sitting BP better -: no dizziness w sitting - Objective Resuscitation Status - Order Detail: 06/05/18 22:35 Resuscitation Status Routine Resuscitation Status: FULL: Full Resuscitation MAR Reviewed: Yes Vital Signs & Weight: Vital Signs (12 hours) Temp Pulse Pulse Pulse Pulse Pulse Resp 06/19/18 11:44 06/19/18 11:30 06/19/18 11:17 98 74 75 67 06/19/18 11:06 97.4 F L 75 18 06/19/18 08:00 98.9 F 73 18 BP BP BP BP BP BP BP 06/19/18 11:44 187/87 H 06/19/18 11:30 56/32 L 06/19/18 11:17 148/87 H 52/36 L 127/84 138/91 H 06/19/18 11:06 135/89 06/19/18 08:00 151/89 H Pulse Ox Pulse Ox Pulse Ox Pulse Ox Pulse Ox 06/19/18 11:44 06/19/18 11:30 06/19/18 11:17 96 96 97 98 06/19/18 11:06 94 L 06/19/18 08:00 97 Weight Admit Weight 228 lb 9.91 oz Weight 196 lb I&O: 06/18/18 06/19/18 06/20/18 06:59 06:59 06:59 Intake Total 1410 1080 Output Total 1500 200 Balance -90 880 Result Diagrams: 06/17/18 05:30 06/19/18 06:14 Additional Labs: Laboratory Tests 06/19/18 12:27 Cortisol 10.20 Phys Exam - Physical Examination Constitutional: NAD HEENT: PERRLA, moist MMs, sclera anicteric, oral pharynx no lesions Neck: no nodes, no JVD, supple, full ROM Respiratory: no wheezing, no rales, no rhonchi, clear to auscultation bilateral Cardiovascular: RRR, no significant murmur, no rub Gastrointestinal: soft, non-tender, no distention, positive bowel sounds Musculoskeletal: no edema, pulses present Neurological: non-focal, normal sensation, moves all 4 limbs Psychiatric: normal affect, A&O x 3 Skin: no rash Dx/Plan (1) Near syncope Status: Acute (2) Orthostatic hypotension Code(s): I95.1 - ORTHOSTATIC HYPOTENSION Status: Acute Comment: improved yesterday but low Bp again today.on Midodrine and Florinef.Coreg stopped (3) Protein-calorie malnutrition, severe Code(s): E43 - UNSPECIFIED SEVERE PROTEIN-CALORIE MALNUTRITION Status: Chronic (4) CAD (coronary artery disease) Code(s): I25.10 - ATHSCL HEART DISEASE OF [place] CORONARY ARTERY W/O ANG PCTRS Status: Chronic (5) Anemia in chronic kidney disease Code(s): N18.9 - CHRONIC KIDNEY DISEASE, UNSPECIFIED; D63.1 - ANEMIA IN CHRONIC KIDNEY DISEASE Status: Chronic Comment: on erythropoetin (6) Antiphospholipid syndrome Code(s): D68.61 - ANTIPHOSPHOLIPID SYNDROME Status: Chronic (7) Atrial fibrillation Code(s): I48.91 - UNSPECIFIED ATRIAL FIBRILLATION Status: Chronic Qualifiers: Atrial fibrillation type: paroxysmal (8) End stage renal disease on dialysis Code(s): N18.6 - END STAGE RENAL DISEASE; Z99.2 - DEPENDENCE ON RENAL DIALYSIS Status: Chronic (9) Gout Code(s): M10.9 - GOUT, UNSPECIFIED Status: Chronic Qualifiers: Gout site: unspecified site Gout etiology: unspecified cause (10) H/O tonic-clonic seizures Code(s): Z86.69 - PERSONAL HISTORY OF DIS OF THE NERVOUS SYS AND SENSE ORGANS Status: Chronic Comment: s/o Lobectomy in past.on Trileptal for now (11) HTN (hypertension) Code(s): I10 - ESSENTIAL (PRIMARY) HYPERTENSION Status: Chronic Qualifiers: Hypertension type: essential hypertension (12) History of pulmonary embolism Code(s): Z86.711 - PERSONAL HISTORY OF PULMONARY EMBOLISM Status: Chronic Comment: h/o IVC filter.no OAC due to chr Thrombocytopenia (13) Nonischemic cardiomyopathy Code(s): I42.8 - OTHER CARDIOMYOPATHIES Status: Chronic Comment: s/p BiV AICD (14) Pancytopenia Code(s): D61.818 - OTHER PANCYTOPENIA Status: Chronic (15) Chronic combined systolic and diastolic CHF, NYHA class 2 and MATTY/AHA stage C Code(s): I50.42 - CHRONIC COMBINED SYSTOLIC AND DIASTOLIC HRT FAIL Status: Chronic - Plan DVT proph w/SCDs ECHo shows decline in EF but AICd already in place.AICD interrogated & no -: arrytmias reported.BP remains very fluctuating -: random cortisol WNL. will check mmorning,may need glucocorticiods -: cont midodrine and florinef for now -: hemodialysis as tolerated.am labs * . Review of Systems - Review of Systems Constitutional: weakness, malaise. negative: fever, chills, sweats, other Respiratory: negative: Cough, Dry, Shortness of Breath, Hemoptysis, SOB with Excertion, Pleuritic Pain, Sputum, Wheezing Cardiovascular: negative: chest pain, palpitations, orthopnea, paroxysmal nocturnal dyspnea, edema, light headedness, other Gastrointestinal: negative: Nausea, Vomiting, Abdominal Pain, Diarrhea, Constipation, Melena, Hematochezia, Other Genitourinary: negative: Dysuria, Frequency, Incontinence, Hematuria, Retention , Other Musculoskeletal: negative: Neck Pain, Shoulder Pain, Arm Pain, Back Pain, Hand Pain, Leg Pain, Foot Pain, Other Neurological: negative: Weakness, Numbness, Incoordination, Change in Speech, Confusion, Seizures, Other - Medications/Allergies Allergies/Adverse Reactions: Allergies Allergy/AdvReac Type Severity Reaction Status Date / Time phenytoin sodium Allergy Severe Emesis Verified 05/01/18 05:56 [From Dilantin] phenytoin sodium extended Allergy Severe Emesis Verified 05/01/18 05:56 [From Dilantin] midazolam HCl [From Versed] Allergy Intermediate swelling Verified 05/01/18 05: 56 Medications: Current Medications Acetaminophen (Tylenol) 650 mg PO Q4H PRN PRN Reason: Headache/Fever/Mild Pain (1-3) Last Admin: 06/09/18 10:43 Dose: 650 mg Aspirin (Aspirin Chewable) 81 mg PO DAILY [facility] Last Admin: 06/19/18 08:54 Dose: 81 mg Bisacodyl (Dulcolax) 10 mg PO DAILYPRN PRN PRN Reason: Constipation Calcium Carbonate (Tums) 1,000 mg PO Q4H PRN PRN Reason: Heartburn or Indigestion Last Admin: 06/14/18 20:18 Dose: 1,000 mg Cyanocobalamin (Vitamin B-12) 1,000 mcg PO DAILY [facility] Last Admin: 06/19/18 08:54 Dose: 1,000 mcg Docusate Sodium (Colace) 100 mg PO BIDPRN PRN PRN Reason: Constipation Epoetin Nain (Procrit) 10,000 units SC WILLCALL [facility] Last Admin: 06/14/18 17:23 Dose: 10,000 units Ferrous Sulfate (Feosol) 325 mg PO BID-WM [facility] Last Admin: 06/19/18 08:54 Dose: 325 mg Fludrocortisone Acetate (Florinef) 0.2 mg PO DAILY [facility] Last Admin: 06/19/18 08:51 Dose: 0.2 mg Folic Acid (Folvite) 1 mg PO DAILY [facility] Last Admin: 06/19/18 08:54 Dose: 1 mg Ipratropium [place] (Atrovent) 2.5 ml NEB Q6H PRN PRN Reason: SOB &/or Wheezing Melatonin (Melatonin) 6 mg PO HS PRN PRN Reason: Insomnia Last Admin: 06/18/18 20:07 Dose: 6 mg Midodrine (Proamatine) 12.5 mg PO TID [facility] Last Admin: 06/19/18 08:53 Dose: 12.5 mg Ondansetron HCl (Zofran) 4 mg SLOW IVP Q6H PRN PRN Reason: Nausea/Vomiting Last Admin: 06/16/18 20:31 Dose: 4 mg Oxcarbazepine (Trileptal) 600 mg PO BID [facility] Last Admin: 06/19/18 08:50 Dose: 600 mg Polyethylene Glycol (Miralax) 17 gm PO DAILYPRN PRN PRN Reason: Constipation Sodium Chloride (Flush - Normal Saline) 10 ml IVF Q12HR [facility] Last Admin: 06/19/18 08:55 Dose: 10 ml Sodium Chloride (Flush - Normal Saline) 10 ml IVF PRN PRN PRN Reason: Saline Flush Last Admin: 06/16/18 15:10 Dose: 10 ml
[2018-06-19] MEDS: Melatonin 3 MG TAB PO PRN (22:02)
[2018-06-20 05:36] LABS: Anion Gap 8 mmol/L (10-20); BUN (Urea Nitrogen) 18 mg/dL (8.9-20.6); Calc. Creatinine Clearance 40 mL/min (70-130); Calcium 8.7 mg/dL (7.8-10.44); Carbon Dioxide 30 mmol/L (22-29); Chloride 100 mmol/L (98-107); Estimated GFR-MDRD 24; Glucose 101 mg/dL (70-105); Potassium 3.9 mmol/L (3.5-5.1); Sodium 134 mmol/L (136-145)
--- NOTE | 2018-06-20 09:09 | PRG ---
DATE OF SERVICE: 06/20/2018 SERVICE: Renal Medicine. SUBJECTIVE: Mr. Boo is a 47-year-old white male, followed up by the Renal Service for ESRD. He is currently undergoing dialysis. We are currently minimizing fluid removal due to the orthostatic hypotension. No new complaints today. No chest pain or shortness of breath. OBJECTIVE: VITAL SIGNS: Blood pressure is 144/77, heart rate 75, respiratory rate 20, temperature 97.9, and pulse ox 92%. GENERAL: Noted to be awake, alert, supine, comfortable, not in overt distress. SKIN: Adequate turgor. HEENT: He has a slightly pale conjunctivae. Anicteric sclerae. No neck mass. No carotid bruits. No JVD. CHEST: No deformities. LUNGS: Decreased breath sounds. No wheezing. No crackles. HEART: Normal sinus rhythm. No murmur. No gallops. No rubs. ABDOMEN: Globular, soft, nontender. No masses. EXTREMITIES: No edema. MEDICATIONS: Medications of June 20, 2018 was reviewed. LABORATORY DATA: Laboratories of June 17, 2018; white count 3.9, hemoglobin 8.1, platelet count 78,000. Sodium 134, potassium 3.9, chloride 100, carbon dioxide 30, BUN 18, creatinine 2.89, glucose 101, calcium 8.7. Cortisol level is 6.20 June 20, 2018. June 19, 2018, cortisol level is 10.2. ASSESSMENT AND PLAN: 1. End-stage renal disease, stable. We will continue current Wednesday, Wednesday, Wednesday dialysis. Minimal fluid removal due to the orthostatic hypotension. No changes will be made with the current dialysis regimen. He is tolerating said treatment. 2. Orthostatic hypotension. Continue midodrine at 12.5 mg tablet t.i.d. 3. Anemia, currently on Epogen - this was increased last week to 10,000 units subcu every week. 4. Chronic thrombocytopenia, stable. Consider rechecking basic metabolic panel and CBC in 2 days. Job ID: [id number]
[2018-06-20] MEDS: Cyanocobalamin (Vitamin B-12) 1,000 MCG TAB PO SCH ×2 (09:10→14:44)
[2018-06-20] MEDS: OXcarbazepine 300 MG TAB PO SCH ×2 (09:10→20:32)
[2018-06-20] MEDS: Folic Acid 1 MG TAB PO SCH ×2 (09:10→14:44)
[2018-06-20] MEDS: Ferrous Sulfate 325 MG TAB PO SCH ×2 (09:10→16:08)
[2018-06-20] MEDS: Fludrocortisone Acetate 0.1 MG TAB PO SCH ×2 (09:10→14:44)
[2018-06-20] MEDS: Midodrine HCl 5 MG TAB PO SCH ×3 (09:10→20:32)
[2018-06-20] MEDS: Aspirin Chewable 81 MG TAB PO SCH ×2 (09:10→14:43)
[2018-06-20] MEDS ORDERED: Heparin 10,000 UNITS/ 10 ML VIAL ONE (11:11)
[2018-06-20] MEDS ORDERED: Cosyntropin 250 MCG VIAL SLOW IVP SCH (13:30)
--- NOTE | 2018-06-20 14:45 | PDOC.PN ---
- Subjective Encounter Start Date: 06/20/18 Encounter Start Time: 14:43 Subjective: feels better.not stood up for fear of dropping BP -: no new complaints.seen during dialysis -: poor Po intake - Objective Resuscitation Status - Order Detail: 06/05/18 22:35 Resuscitation Status Routine Resuscitation Status: FULL: Full Resuscitation MAR Reviewed: Yes Vital Signs & Weight: Vital Signs (12 hours) Temp Pulse Resp BP Pulse Ox 06/20/18 08:00 97.9 F 75 20 144/77 H 92 L 06/20/18 04:10 98.3 F 88 16 118/65 97 Weight Admit Weight 228 lb 9.91 oz Weight 196 lb I&O: 06/19/18 06/20/18 06/21/18 06:59 06:59 06:59 Intake Total 1080 300 Output Total 200 Balance 880 300 Result Diagrams: 06/17/18 05:30 06/20/18 05:08 Phys Exam - Physical Examination Constitutional: NAD pale and weak looking but awake ,alert HEENT: PERRLA, moist MMs, sclera anicteric, oral pharynx no lesions Neck: no nodes, no JVD, supple, full ROM Respiratory: no wheezing, no rales, no rhonchi, clear to auscultation bilateral Cardiovascular: RRR, no significant murmur, no rub Gastrointestinal: soft, non-tender, no distention, positive bowel sounds Musculoskeletal: no edema, pulses present Neurological: non-focal, normal sensation, moves all 4 limbs Psychiatric: normal affect, A&O x 3 Skin: no rash Dx/Plan (1) Near syncope Status: Acute (2) Orthostatic hypotension Code(s): I95.1 - ORTHOSTATIC HYPOTENSION Status: Acute Comment: labile BP.on Midodrine and Florinef.Coreg stopped.ECHO unchanged from previous.AICD interrogation did not show any arrythmias (3) Protein-calorie malnutrition, severe Code(s): E43 - UNSPECIFIED SEVERE PROTEIN-CALORIE MALNUTRITION Status: Chronic (4) CAD (coronary artery disease) Code(s): I25.10 - ATHSCL HEART DISEASE OF [place] CORONARY ARTERY W/O ANG PCTRS Status: Chronic (5) Anemia in chronic kidney disease Code(s): N18.9 - CHRONIC KIDNEY DISEASE, UNSPECIFIED; D63.1 - ANEMIA IN CHRONIC KIDNEY DISEASE Status: Chronic Comment: on erythropoetin (6) Antiphospholipid syndrome Code(s): D68.61 - ANTIPHOSPHOLIPID SYNDROME Status: Chronic (7) Atrial fibrillation Code(s): I48.91 - UNSPECIFIED ATRIAL FIBRILLATION Status: Chronic Qualifiers: Atrial fibrillation type: paroxysmal (8) End stage renal disease on dialysis Code(s): N18.6 - END STAGE RENAL DISEASE; Z99.2 - DEPENDENCE ON RENAL DIALYSIS Status: Chronic (9) Gout Code(s): M10.9 - GOUT, UNSPECIFIED Status: Chronic Qualifiers: Gout site: unspecified site Gout etiology: unspecified cause (10) H/O tonic-clonic seizures Code(s): Z86.69 - PERSONAL HISTORY OF DIS OF THE NERVOUS SYS AND SENSE ORGANS Status: Chronic Comment: s/o Lobectomy in past.on Trileptal for now (11) HTN (hypertension) Code(s): I10 - ESSENTIAL (PRIMARY) HYPERTENSION Status: Chronic Qualifiers: Hypertension type: essential hypertension (12) History of pulmonary embolism Code(s): Z86.711 - PERSONAL HISTORY OF PULMONARY EMBOLISM Status: Chronic Comment: h/o IVC filter.no OAC due to chr Thrombocytopenia (13) Nonischemic cardiomyopathy Code(s): I42.8 - OTHER CARDIOMYOPATHIES Status: Chronic Comment: s/p BiV AICD (14) Pancytopenia Code(s): D61.818 - OTHER PANCYTOPENIA Status: Chronic (15) Chronic combined systolic and diastolic CHF, NYHA class 2 and MATTY/AHA stage C Code(s): I50.42 - CHRONIC COMBINED SYSTOLIC AND DIASTOLIC HRT FAIL Status: Chronic - Plan DVT proph w/SCDs Lower normal AM cortisol.? relative or primary Adrenal deficiency -: will do ACTH stim test .then start low dose steroids -: cont rest as above -: cardiology recs requested.pt reports that Dr. Jefferson has seen him -: am labs.on hemodialysis.not safe for DC yet * . Review of Systems - Review of Systems Constitutional: weakness, malaise Respiratory: negative: Cough, Dry, Shortness of Breath, Hemoptysis, SOB with Excertion, Pleuritic Pain, Sputum, Wheezing Cardiovascular: negative: chest pain, palpitations, orthopnea, paroxysmal nocturnal dyspnea, edema, light headedness, other Gastrointestinal: negative: Nausea, Vomiting, Abdominal Pain, Diarrhea, Constipation, Melena, Hematochezia, Other Genitourinary: negative: Dysuria, Frequency, Incontinence, Hematuria, Retention , Other Musculoskeletal: negative: Neck Pain, Shoulder Pain, Arm Pain, Back Pain, Hand Pain, Leg Pain, Foot Pain, Other Neurological: negative: Weakness, Numbness, Incoordination, Change in Speech, Confusion, Seizures, Other - Medications/Allergies Allergies/Adverse Reactions: Allergies Allergy/AdvReac Type Severity Reaction Status Date / Time phenytoin sodium Allergy Severe Emesis Verified 05/01/18 05:56 [From Dilantin] phenytoin sodium extended Allergy Severe Emesis Verified 05/01/18 05:56 [From Dilantin] midazolam HCl [From Versed] Allergy Intermediate swelling Verified 05/01/18 05: 56 Medications: Current Medications Acetaminophen (Tylenol) 650 mg PO Q4H PRN PRN Reason: Headache/Fever/Mild Pain (1-3) Last Admin: 06/09/18 10:43 Dose: 650 mg Aspirin (Aspirin Chewable) 81 mg PO DAILY [facility] Last Admin: 06/20/18 14:43 Dose: Not Given Bisacodyl (Dulcolax) 10 mg PO DAILYPRN PRN PRN Reason: Constipation Calcium Carbonate (Tums) 1,000 mg PO Q4H PRN PRN Reason: Heartburn or Indigestion Last Admin: 06/14/18 20:18 Dose: 1,000 mg Cosyntropin (Cortrosyn) 250 mcg SLOW IVP WILLCALL [facility] Cyanocobalamin (Vitamin B-12) 1,000 mcg PO DAILY [facility] Last Admin: 06/19/18 08:54 Dose: 1,000 mcg Docusate Sodium (Colace) 100 mg PO BIDPRN PRN PRN Reason: Constipation Epoetin Nain (Procrit) 10,000 units SC WILLCALL [facility] Last Admin: 06/14/18 17:23 Dose: 10,000 units Ferrous Sulfate (Feosol) 325 mg PO BID-[facility] Last Admin: 06/20/18 09:10 Dose: Not Given Fludrocortisone Acetate (Florinef) 0.2 mg PO DAILY [facility] Last Admin: 06/19/18 08:51 Dose: 0.2 mg Folic Acid (Folvite) 1 mg PO DAILY [facility] Last Admin: 06/19/18 08:54 Dose: 1 mg Ipratropium [place] (Atrovent) 2.5 ml NEB Q6H PRN PRN Reason: SOB &/or Wheezing Melatonin (Melatonin) 6 mg PO HS PRN PRN Reason: Insomnia Last Admin: 06/19/18 22:02 Dose: 6 mg Midodrine (Proamatine) 12.5 mg PO TID [facility] Last Admin: 06/20/18 14:40 Dose: 12.5 mg Ondansetron HCl (Zofran) 4 mg SLOW IVP Q6H PRN PRN Reason: Nausea/Vomiting Last Admin: 06/16/18 20:31 Dose: 4 mg Oxcarbazepine (Trileptal) 600 mg PO BID [facility] Last Admin: 06/20/18 09:10 Dose: Not Given Polyethylene Glycol (Miralax) 17 gm PO DAILYPRN PRN PRN Reason: Constipation Sodium Chloride (Flush - Normal Saline) 10 ml IVF Q12HR [facility] Last Admin: 06/20/18 09:10 Dose: Not Given Sodium Chloride (Flush - Normal Saline) 10 ml IVF PRN PRN PRN Reason: Saline Flush Last Admin: 06/16/18 15:10 Dose: 10 ml
[2018-06-20] MEDS: Polyethylene Glycol 3350 17 GM Packet PO PRN (14:53)
--- NOTE | 2018-06-20 17:35 | EKG ---
Test Reason : Blood Pressure : / mmHG Vent. Rate : 070 BPM Atrial Rate : 059 BPM P-R Int : 000 ms QRS Dur : 168 ms QT Int : 502 ms P-R-T Axes : 035 -89 085 degrees QTc Int : 542 ms Demand pacemaker; interpretation is based on intrinsic rhythm Atrial paced ventricular sensed rhythm with frequent PVC's Premature ventricular complexes are now Present (RBBB and left anterior fascicular block) has replaced Non-specific intra-ventricular conduction bloc k Confirmed by DR. Bob BROWN ([id number]) on 06/20/2018 5:35:42 PM Referred By: JERAMY Confirmed By:DR. Bob BROWN
[2018-06-20] MEDS: Melatonin 3 MG TAB PO PRN (20:33)
[2018-06-21 08:00] LABS: Anion Gap 12 mmol/L (10-20); BUN (Urea Nitrogen) 10 mg/dL (8.9-20.6); Calc. Creatinine Clearance 53 mL/min (70-130); Carbon Dioxide 25 mmol/L (22-29); Chloride 103 mmol/L (98-107); Estimated GFR-MDRD 33; Glucose 79 mg/dL (70-105); Potassium 4.2 mmol/L (3.5-5.1); Sodium 136 mmol/L (136-145)
[2018-06-21] MEDS: Ferrous Sulfate 325 MG TAB PO SCH ×2 (08:57→17:07)
[2018-06-21] MEDS: Midodrine HCl 5 MG TAB PO SCH ×3 (08:57→20:47)
[2018-06-21] MEDS: Fludrocortisone Acetate 0.1 MG TAB PO SCH (08:57)
[2018-06-21] MEDS: OXcarbazepine 300 MG TAB PO SCH ×2 (08:57→20:47)
[2018-06-21] MEDS: Cyanocobalamin (Vitamin B-12) 1,000 MCG TAB PO SCH (08:58)
[2018-06-21] MEDS: Folic Acid 1 MG TAB PO SCH (08:58)
[2018-06-21] MEDS: Aspirin Chewable 81 MG TAB PO SCH ×2 (08:58→09:08)
[2018-06-21] MEDS: Polyethylene Glycol 3350 17 GM Packet PO PRN (09:18)
--- NOTE | 2018-06-21 16:22 | PRG ---
DATE OF SERVICE: 06/21/2018 SUBJECTIVE: The patient is seen and examined at the bedside. He is still very dizzy and near syncopal as soon as he gets up. OBJECTIVE: VITAL SIGNS: Blood pressure is 145/84, sitting position it drops to 105/77, and standing is 92/60. HEENT: His head is atraumatic and normocephalic. Eyes are PERRLA. Sclerae are nonicteric. Oral mucosa is moist. NECK: Supple. LUNGS: Clear. HEART: S1 and S2 normal. No S3. No S4. ABDOMEN: Soft and nontender. EXTREMITIES: No clubbing or cyanosis. There is 1+ peripheral edema similar bilaterally. NEUROLOGICAL: He follows my commands. He moves his all 4 extremities. LABORATORY DATA: Labs showed creatinine of 2.15. The rest of chemistry within normal limits. ACTH 43.1, which is normal. Cortisol response is 6.2, somewhat on the lower side, but is still in the range, which is considered normal. IMPRESSION: 1. Orthostatic hypotension, which is much better. He is on midodrine and Florinef. Suspect there is some significant autonomic dysfunction. 2. Coronary artery disease, chronic, stable. 3. Anemia of chronic kidney disease, on erythropoietin. 4. Antiphospholipid syndrome, chronic, stable. 5. Atrial fibrillation, which is paroxysmal, chronic. 6. End-stage renal disease, on dialysis, chronic. 7. History of tonic-clonic seizures, status post lobectomy in the past. 8. Hypertension. 9. History of pulmonary embolism. 10. Nonischemic cardiomyopathy with left ventricular ejection fraction estimated at around 35%, status post biventricular automated implantable cardioverter-defibrillator. 11. Chronic combined systolic and diastolic congestive heart failure, class II. PLAN: Plan is to add prednisone along with Florinef and midodrine to help his quite severe orthostatic hypotension. We will continue PT, OT, and Cardiology is supposed to see the patient, but we do not expect them for anything substantial. Job ID: [id number]
[2018-06-21] MEDS: predniSONE 20 MG TAB PO SCH (20:46)
[2018-06-22 06:01] LABS: Anion Gap 12 mmol/L (10-20); BUN (Urea Nitrogen) 17 mg/dL (8.9-20.6); Calc. Creatinine Clearance 44 mL/min (70-130); Calcium 9.1 mg/dL (7.8-10.44); Carbon Dioxide 27 mmol/L (22-29); Chloride 102 mmol/L (98-107); Estimated GFR-MDRD 26; Glucose 96 mg/dL (70-105); Potassium 4.3 mmol/L (3.5-5.1); Sodium 137 mmol/L (136-145)
[2018-06-22] MEDS: predniSONE 20 MG TAB PO SCH ×3 (09:20→21:08)
[2018-06-22] MEDS: Ferrous Sulfate 325 MG TAB PO SCH ×2 (09:20→17:50)
[2018-06-22] MEDS: Aspirin Chewable 81 MG TAB PO SCH (09:20)
[2018-06-22] MEDS: Folic Acid 1 MG TAB PO SCH (09:21)
[2018-06-22] MEDS: Cyanocobalamin (Vitamin B-12) 1,000 MCG TAB PO SCH (09:21)
[2018-06-22] MEDS: OXcarbazepine 300 MG TAB PO SCH ×2 (09:21→21:08)
[2018-06-22] MEDS: Fludrocortisone Acetate 0.1 MG TAB PO SCH ×2 (09:21→15:55)
[2018-06-22] MEDS: Midodrine HCl 5 MG TAB PO SCH ×3 (09:21→21:11)
--- NOTE | 2018-06-22 09:38 | PRG ---
DATE OF SERVICE: 06/22/2018 SUBJECTIVE: Mr. Boo is a 47-year-old white male, followed up by the [facility] for his ESRD, on maintenance hemodialysis. Due to his orthostatic hypotension, we are removing minimal fluid with dialysis. He is currently on midodrine as well has been started on prednisone. No other complaints today. He tells me he is feeling better. He is tolerating his p.o. intake. OBJECTIVE: VITAL SIGNS: Blood pressure 146/88, heart rate 96, respiratory rate 14, and pulse ox 95%. GENERAL: Awake, alert, comfortable, not in distress. SKIN: Adequate turgor. HEENT: He has a slightly pale conjunctivae. Anicteric sclerae. NECK: No neck mass. No carotid bruits. No JVD. CHEST: No deformities. LUNGS: Clear breath sounds. HEART: Normal sinus rhythm. No murmur. No gallops. No rubs. ABDOMEN: Globular. Soft. Nontender. No masses. EXTREMITIES: No edema. No deformities. MEDICATIONS: Medications of June 22, 2018, reviewed. LABORATORY DATA: June 22, 2018, sodium 137, potassium 4.3, chloride 102, carbon dioxide 27, BUN 17, creatinine 2.62, glucose 96, calcium 9.1. ACTH is 43.1. Cortisol level is noted at 6.2. ASSESSMENT AND PLAN: 1. Orthostatic hypotension, supportive care. The patient has stockings placed. In addition, he is currently on maximal dose of midodrine. In addition, he has been empirically started on prednisone. We will continue to observe. Continue supportive care. 2. End-stage renal disease, stable. We will continue current Wednesday, Wednesday, and Wednesday hemodialysis regimen. As previously mentioned, minimal fluid removal due to the orthostatic hypotension. 3. Anemia, p.r.n. blood transfusion. Continuing current Epogen regimen. Please note, he is on 10,000 units subcu weekly. Continue iron supplementation. Overall, his prognosis remains guarded. Job ID: [id number]
[2018-06-22] MEDS ORDERED: Heparin 10,000 UNITS/ 10 ML VIAL ONE (11:11)
--- NOTE | 2018-06-22 14:29 | PRG ---
DATE OF SERVICE: 06/22/2018 SUBJECTIVE: The patient is seen and examined at the bedside. There is no any change overnight. He slept without any unexpected events. OBJECTIVE: VITAL SIGNS: Blood pressure is 146/88. Orthostatic vitals 131/82, sitting 92/62, and standing 91/65. His pulse oximetry is 96% on room air, his temperature is 98.3, pulse is 76, respiratory rate is 16. HEENT: His head is atraumatic and normocephalic. Eyes are PERRLA. Sclerae are nonicteric. Oral mucosa is moist. NECK: Supple. LUNGS: Clear. HEART: S1, S2 normal. ABDOMEN: Soft, nontender. Bowel sounds are present. EXTREMITIES: No clubbing, cyanosis, or edema. NEUROLOGICAL: He follows my commands. LABORATORY DATA: Labs showed creatinine of 2.62, normal electrolytes, normal calcium, and normal glucose. IMPRESSION: 1. Orthostatic hypotension, on midodrine and Florinef. Yesterday, he was started on prednisone. 2. Coronary artery disease, chronic, stable. 3. Anemia of chronic kidney disease, on erythropoietin. 4. Antiphospholipid syndrome, chronic, stable. 5. Paroxysmal atrial fibrillation. 6. End-stage renal disease, on dialysis, chronic. 7. History of tonic clonic seizures, status post lobectomy in the past. 8. Hypertension. 9. History of pulmonary embolism. 10. Nonischemic cardiomyopathy with LVEF estimated at 35%, status post biventricular automated implantable cardioverter defibrillator. 11. Chronic combined systolic and diastolic congestive heart failure, class 2. PLAN: Plan is to continue to use prednisone along with Florinef and midodrine, and check his orthostatic hypotension daily to see whether this makes any difference. We will continue PT and OT, and he will continue to wear his stockings. Job ID: [id number]
[2018-06-23 06:40] LABS: Anion Gap 11 mmol/L (10-20); BUN (Urea Nitrogen) 14 mg/dL (8.9-20.6); Calc. Creatinine Clearance 54 mL/min (70-130); Calcium 9.1 mg/dL (7.8-10.44); Carbon Dioxide 27 mmol/L (22-29); Chloride 101 mmol/L (98-107); Estimated GFR-MDRD 34; Glucose 112 mg/dL (70-105); Potassium 4.2 mmol/L (3.5-5.1); Sodium 135 mmol/L (136-145)
[2018-06-23] MEDS: Fludrocortisone Acetate 0.1 MG TAB PO SCH (08:53)
[2018-06-23] MEDS: Ferrous Sulfate 325 MG TAB PO SCH ×2 (08:53→18:24)
[2018-06-23] MEDS: OXcarbazepine 300 MG TAB PO SCH ×2 (08:53→20:00)
[2018-06-23] MEDS: predniSONE 20 MG TAB PO SCH ×2 (08:54→20:00)
[2018-06-23] MEDS: Cyanocobalamin (Vitamin B-12) 1,000 MCG TAB PO SCH (08:54)
[2018-06-23] MEDS: Folic Acid 1 MG TAB PO SCH (08:54)
[2018-06-23] MEDS: Aspirin Chewable 81 MG TAB PO SCH (08:54)
--- NOTE | 2018-06-23 10:12 | PDOC.PN ---
- Subjective Encounter Start Date: 06/23/18 Encounter Start Time: 12:10 Subjective: Patient reports minimal improvement with steroid addition. He spoke with -: Dr. Jefferson over the weekend and she reiterated that this is not a primarily -: cardiac problem, more neurologic. - Objective Resuscitation Status - Order Detail: 06/05/18 22:35 Resuscitation Status Routine Resuscitation Status: FULL: Full Resuscitation MAR Reviewed: Yes Vital Signs & Weight: Vital Signs (12 hours) Temp Pulse Resp BP BP BP BP 06/23/18 08:00 97.6 F 77 18 124/79 99/66 06/23/18 04:00 97.7 F 71 16 156/93 H 06/23/18 00:00 97.9 F 67 16 157/92 H BP Pulse Ox 06/23/18 08:00 93/56 L 97 06/23/18 04:00 96 06/23/18 00:00 96 Weight Admit Weight 228 lb 9.91 oz Weight 196 lb I&O: 06/22/18 06/23/18 06/24/18 06:59 06:59 06:59 Intake Total 2880 1560 Output Total 200 400 Balance 2680 1160 Result Diagrams: 06/17/18 05:30 06/23/18 05:29 Phys Exam - Physical Examination Constitutional: NAD HEENT: moist MMs Respiratory: no wheezing, no rales, no rhonchi Cardiovascular: RRR Gastrointestinal: soft, positive bowel sounds Musculoskeletal: edema present some bruising/redness on top of feet from [employer]INITY hose Neurological: non-focal Psychiatric: normal affect, A&O x 3 Dx/Plan (1) Near syncope Status: Acute (2) Orthostatic hypotension Code(s): I95.1 - ORTHOSTATIC HYPOTENSION Status: Acute Comment: labile BP.on Midodrine and Florinef.Coreg stopped.ECHO unchanged from previous.AICD interrogation did not show any arrythmias (3) Protein-calorie malnutrition, severe Code(s): E43 - UNSPECIFIED SEVERE PROTEIN-CALORIE MALNUTRITION Status: Chronic (4) CAD (coronary artery disease) Code(s): I25.10 - ATHSCL HEART DISEASE OF [place] CORONARY ARTERY W/O ANG PCTRS Status: Chronic (5) Anemia in chronic kidney disease Code(s): N18.9 - CHRONIC KIDNEY DISEASE, UNSPECIFIED; D63.1 - ANEMIA IN CHRONIC KIDNEY DISEASE Status: Chronic Comment: on erythropoetin (6) Antiphospholipid syndrome Code(s): D68.61 - ANTIPHOSPHOLIPID SYNDROME Status: Chronic (7) Atrial fibrillation Code(s): I48.91 - UNSPECIFIED ATRIAL FIBRILLATION Status: Chronic Qualifiers: Atrial fibrillation type: paroxysmal Qualified Code(s): I48.0 - Paroxysmal atrial fibrillation (8) End stage renal disease on dialysis Code(s): N18.6 - END STAGE RENAL DISEASE; Z99.2 - DEPENDENCE ON RENAL DIALYSIS Status: Chronic (9) Gout Code(s): M10.9 - GOUT, UNSPECIFIED Status: Chronic Qualifiers: Gout site: unspecified site Gout etiology: unspecified cause (10) H/O tonic-clonic seizures Code(s): Z86.69 - PERSONAL HISTORY OF DIS OF THE NERVOUS SYS AND SENSE ORGANS Status: Chronic Comment: s/o Lobectomy in past.on Trileptal for now (11) HTN (hypertension) Code(s): I10 - ESSENTIAL (PRIMARY) HYPERTENSION Status: Chronic Qualifiers: Hypertension type: essential hypertension Qualified Code(s): I10 - Essential (primary) hypertension (12) History of pulmonary embolism Code(s): Z86.711 - PERSONAL HISTORY OF PULMONARY EMBOLISM Status: Chronic Comment: h/o IVC filter.no OAC due to chr Thrombocytopenia (13) Nonischemic cardiomyopathy Code(s): I42.8 - OTHER CARDIOMYOPATHIES Status: Chronic Comment: s/p BiV AICD (14) Pancytopenia Code(s): D61.818 - OTHER PANCYTOPENIA Status: Chronic (15) Chronic combined systolic and diastolic CHF, NYHA class 2 and MATTY/AHA stage C Code(s): I50.42 - CHRONIC COMBINED SYSTOLIC AND DIASTOLIC HRT FAIL Status: Chronic - Plan cont current plan of care, PT/OT attempting steroid replacement in addition to Florinef and Midodrine for -: the hypotension -: persistent orthostasis on vitals this AM -: plan to go to [place] eventually * . - Discharge Day Encounter end time: 12:20
[2018-06-23] MEDS: Midodrine HCl 5 MG TAB PO SCH ×3 (10:41→20:00)
[2018-06-24 06:42] LABS: Anion Gap 13 mmol/L (10-20); BUN (Urea Nitrogen) 29 mg/dL (8.9-20.6); Calc. Creatinine Clearance 34 mL/min (70-130); Carbon Dioxide 25 mmol/L (22-29); Chloride 101 mmol/L (98-107); Estimated GFR-MDRD 20; Glucose 107 mg/dL (70-105); Potassium 4.6 mmol/L (3.5-5.1); Sodium 134 mmol/L (136-145)
--- NOTE | 2018-06-24 09:31 | PRG ---
DATE OF SERVICE: 06/24/2018 SUBJECTIVE: Mr. Boo is a 47-year-old white male with ESRD and currently undergoing dialysis. I am at the bedside supervising his dialysis. We are doing minimal fluid removal due to the fact that he has had episode of orthostatic hypotension. Adjustment with his medication has been made with regard to his orthostatic hypotension. His midodrine has been max out to 12.5 mg p.o. t.i.d. In addition, the patient has been empirically started on prednisone. His orthostatic hypotension has improved in the last 2 days. I am at the bedside supervising his dialysis. He is tolerating said treatment. OBJECTIVE: VITAL SIGNS: Blood pressure 133/90, heart rate 72, respiratory rate 20, temperature 97.5, and pulse ox 97%. GENERAL: Awake, alert, and comfortable, not in distress. SKIN: Adequate turgor. HEENT: He has a slightly pale conjunctivae. Anicteric sclerae. NECK: No neck mass. No carotid bruits. No JVD. CHEST: No deformities. LUNGS: Clear breath sounds. HEART: Normal sinus rhythm. No murmur. No gallops. No rubs. ABDOMEN: Globular, soft, and nontender. No masses. EXTREMITIES: No edema. No deformities. MEDICATIONS: Medications of June 24, 2018, reviewed. LABORATORY DATA: Laboratories of June 17, 2018, white count 3.9 and hemoglobin 8.1. On June 24, 2018; sodium 134, potassium 4.6, chloride 101 carbon dioxide 25, BUN 29, creatinine 3.34, glucose 107, and calcium 9. ASSESSMENT AND PLAN: 1. End-stage renal disease, stable, tolerating current hemodialysis regimen. Minimal fluid removal and as tolerated by the patient. 2. Orthostatic hypotension, slowly improving. Continue midodrine and currently on prednisone supplementation. 3. Anemia. We are continuing his weekly Epogen of 10,000 units subcu every week. 4. Chronic thrombocytopenia. We will recheck another CBC in a.m. Job ID: [id number]
[2018-06-24] MEDS ORDERED: Heparin 10,000 UNITS/ 10 ML VIAL ONE (12:00)
[2018-06-24] MEDS: Ferrous Sulfate 325 MG TAB PO SCH ×2 (12:09→16:08)
[2018-06-24] MEDS: Midodrine HCl 5 MG TAB PO SCH ×2 (12:10→16:03)
[2018-06-24] MEDS: OXcarbazepine 300 MG TAB PO SCH (12:10)
[2018-06-24] MEDS: predniSONE 20 MG TAB PO SCH (12:42)
[2018-06-24] MEDS: Folic Acid 1 MG TAB PO SCH (12:42)
[2018-06-24] MEDS: Aspirin Chewable 81 MG TAB PO SCH (12:42)
[2018-06-24] MEDS: Fludrocortisone Acetate 0.1 MG TAB PO SCH (12:42)
[2018-06-24] MEDS: Polyethylene Glycol 3350 17 GM Packet PO PRN (12:43)
[2018-06-24] MEDS: Cyanocobalamin (Vitamin B-12) 1,000 MCG TAB PO SCH (12:43)
[2018-06-24 12:51] VITALS: BP 125/75; TEMP 97.9
--- NOTE | 2018-06-24 14:54 | PDOC.PN ---
- Subjective Encounter Start Date: 06/24/18 Encounter Start Time: 12:52 Subjective: No new problem. Ambulating with walker - Objective Resuscitation Status - Order Detail: 06/05/18 22:35 Resuscitation Status Routine Resuscitation Status: FULL: Full Resuscitation Vital Signs & Weight: Vital Signs (12 hours) Temp Pulse Resp BP BP BP BP 06/24/18 11:57 97.9 F 76 18 125/75 06/24/18 08:00 06/24/18 07:29 97.5 F L 72 20 133/90 105/73 129/80 Pulse Ox 06/24/18 11:57 97 06/24/18 08:00 97 06/24/18 07:29 97 Weight Admit Weight 228 lb 9.91 oz Weight 196 lb I&O: 06/23/18 06/24/18 06/25/18 06:59 06:59 06:59 Intake Total 1560 780 Output Total 400 100 125 Balance 1160 680 -125 Result Diagrams: 06/17/18 05:30 06/24/18 05:58 Phys Exam - Physical Examination Constitutional: NAD HEENT: PERRLA, moist MMs Neck: no JVD, supple Respiratory: no wheezing, no rales, no rhonchi Cardiovascular: RRR Gastrointestinal: soft, non-tender, no distention, positive bowel sounds Musculoskeletal: no edema Neurological: moves all 4 limbs memory lapses moted Psychiatric: A&O x 3 Dx/Plan (1) Orthostatic hypotension Code(s): I95.1 - ORTHOSTATIC HYPOTENSION Status: Acute Comment: labile BP.on Midodrine and Florinef.Coreg stopped.ECHO unchanged from previous.AICD interrogation did not show any arrythmias (2) Protein-calorie malnutrition, severe Code(s): E43 - UNSPECIFIED SEVERE PROTEIN-CALORIE MALNUTRITION Status: Chronic (3) Near syncope Status: Acute (4) End stage renal disease on dialysis Code(s): N18.6 - END STAGE RENAL DISEASE; Z99.2 - DEPENDENCE ON RENAL DIALYSIS Status: Chronic (5) History of pulmonary embolism Code(s): Z86.711 - PERSONAL HISTORY OF PULMONARY EMBOLISM Status: Chronic Comment: h/o IVC filter.no OAC due to chr Thrombocytopenia (6) Nonischemic cardiomyopathy Code(s): I42.8 - OTHER CARDIOMYOPATHIES Status: Chronic Comment: s/p BiV AICD (7) Seizure disorder Code(s): G40.909 - EPILEPSY, UNSP, NOT INTRACTABLE, WITHOUT STATUS EPILEPTICUS Status: Chronic (8) Thrombocytopenia Code(s): D69.6 - THROMBOCYTOPENIA, UNSPECIFIED Status: Chronic Comment: no blood thinners (9) Antiphospholipid syndrome Code(s): D68.61 - ANTIPHOSPHOLIPID SYNDROME Status: Chronic (10) Gout Code(s): M10.9 - GOUT, UNSPECIFIED Status: Chronic Qualifiers: Gout site: unspecified site Gout etiology: unspecified cause (11) Physical deconditioning Code(s): R53.81 - OTHER MALAISE Status: Chronic - Plan Continue current medications. -: For discharge to retirement today * .
--- NOTE | 2018-06-24 15:14 | DIS ---
DATE OF ADMISSION: 06/05/2018 DATE OF DISCHARGE: 06/24/2018 DISCHARGE DIAGNOSES: 1. Hypertension. 2. Severe orthostatic hypotension. 3. Near syncope. 4. Severe protein calorie malnutrition. 5. Paroxysmal atrial fibrillation. 6. End-stage renal disease, on hemodialysis. 7. Gouty arthropathy. 8. Nonischemic cardiomyopathy with ejection fraction of 35, status post AICD placement. 9. Pancytopenia. 10. Chronic thrombocytopenia. 11. Chronic combined systolic and diastolic heart failure. 12. Antiphospholipid syndrome. 13. Anemia in chronic kidney disease. 14. Coronary artery disease. 15. Physical deconditioning. 16. Possible adrenal insufficiency. CONSULTS: 1. Nephrology. 2. Cardiology. HOSPITAL COURSE: A 47-year-old male with known history of end-stage renal disease, on hemodialysis due to antiphospholipid syndrome, paroxysmal atrial fibrillation, chronic congestive heart failure, seizure disorder, and hypertension, who was admitted due to hypotension and generalized weakness. The patient who has low blood pressure with systolic in 100, was noted to have severe orthostatic hypotension with systolic blood pressure dropping down to 60s on sitting down. The patient was treated with IV fluids while antihypertensives were discontinued with some improvement. However, blood pressure continues to drop significantly on sitting, such that the patient could not sit down. He was started on midodrine and later Florinef was added with improvement in systolic blood pressure while lying down, but orthostatic hypotension persisted. He also was found to have severe protein calorie malnutrition as well as peripheral neuropathy. There was a concern for possible adrenal insufficiency and cortisol and cosyntropin stimulation test performed were equivocal. The patient was started on therapeutic trial with prednisone with improvement in blood pressure. He later was started on physical therapy and was ambulating with walker. He remained hemodynamically stable and was subsequently [facility]orative therapy. Acute rehab was preferred, but the patient does not have any more days left, hence jail facility. Noteworthy that Cardiology saw the patient during this hospitalization and interrogation of the AICD showed no arrhythmia. Public Health Inspector saw the patient and provided regular hemodialysis during this hospitalization. It was felt that the patient will benefit from evaluation by clip wrapper, hence outpatient referral was sent out on discharge. Cardiology recommended recommencement of Coreg once blood pressure stabilizes. Hence, the patient is to follow up with medical detail representative in 1 to 2 weeks for re-evaluation. PHYSICAL EXAMINATION: VITAL SIGNS: Temperature 97.9, pulse 76, respiratory rate 18, SpO2 of 97 on room air. Blood pressure 125/75. Orthostatic vitals showed BP of 129/80 on supine, 105/73 on standing and 133/90 on sitting. GENERAL: Clinically ill-looking young male, in no obvious distress. Afebrile. Anicteric. Acyanotic. HEENT: Normocephalic, atraumatic. Pupils are equal and reacting to light. Oral mucosa is moist. CARDIOVASCULAR: Regular rhythm and rate with normal heart sounds 1 and 2. RESPIRATORY: Good air entry bilaterally with no obvious crackle or rhonchi. GI: Abdomen is obese, soft, nontender, nondistended with normal bowel sounds. EXTREMITIES: Small erythema noted on both anterior aspect of ankles. No obvious edema appreciated. NEUROLOGIC: Conscious, alert, oriented x3 with appropriate mental status. Memory lapse is noted. The patient ambulates with a walker. DISCHARGE MEDICATIONS: 1. Colchicine 0.6 mg p.o. daily. 2. Ferrous sulfate 325 mg p.o. b.i.d. 3. Trileptal 600 mg p.o. b.i.d. 4. Tylenol 650 mg p.o. q.4 hours p.r.n. for pain. 5. Aspirin 81 mg p.o. daily. 6. Tessalon Perles 200 mg p.o. t.i.d. p.r.n. 7. Calcium carbonate 1000 mg p.o. q.4 p.r.n. for heartburn. 8. Vitamin B12 of 1000 mcg p.o. daily. 9. Docusate 100 mg p.o. b.i.d. 10. Florinef 0.2 mg p.o. daily. 11. Folic acid 1 mg p.o. daily. 12. Guaifenesin and codeine phosphate 10 mL p.o. q.6 p.r.n. for cough. 13. Ipratropium bromide nebs q.6h p.r.n. 14. Melatonin 6 mg p.o. at bedtime p.r.n. for insomnia. 15. Midodrine 12.5 mg p.o. t.i.d. 16. Ondansetron 4 mg p.o. q.6 p.r.n. 17. MiraLAX 17 g p.o. daily. 18. Prednisone 20 mg p.o. in the morning. 19. Prednisone 10 mg p.o. at bedtime. 20. Sennoside two tablets p.o. daily at bedtime p.r.n. CONDITION AT DISCHARGE: Improved and stable. FOLLOWUP: 1. The patient will follow up with PCP in 1 week. 2. Follow up with compressor technician in three days at dialysis center. 3. Follow up with medical detail representative, Dr. Jefferson in 2 to 3 weeks. 4. Follow up with clip wrapper in 2 to 3 weeks. This discharge took more than 40 minutes. Job ID: [id number]
== END 2018-06-24 17:51 | DRG 312 ==
LOC: ERS 13:54 → OBSVTOIN 20:15 → INTOOBSV 20:15 → T4-B 20:15
PROVIDERS: ADMIT Internal Medicine; ATTEND Internal Medicine
PROC: 5A1D70Z Performance of Urinary Filtration, Intermittent, Less than 6 Hours Per Day (ICD-10-PCS; principal; 2018-06-06)
DX: I95.1 Orthostatic hypotension (principal); E43 Unspecified severe protein-calorie malnutrition; N18.6 End stage renal disease; I42.9 Cardiomyopathy, unspecified; D61.818 Other pancytopenia; I50.42 Chronic combined systolic (congestive) and diastolic (congestive) heart failure; I13.2 Hypertensive heart and chronic kidney disease with heart failure and with stage 5 chronic kidney disease, or end stage renal disease; D68.61 Antiphospholipid syndrome; E27.40 Unspecified adrenocortical insufficiency; E87.1 Hypo-osmolality and hyponatremia; I48.0 Paroxysmal atrial fibrillation; Z99.2 Dependence on renal dialysis; M10.9 Gout, unspecified; D63.1 Anemia in chronic kidney disease; I25.10 Atherosclerotic heart disease of native coronary artery without angina pectoris; G40.909 Epilepsy, unspecified, not intractable, without status epilepticus; F32.9 Major depressive disorder, single episode, unspecified; F41.9 Anxiety disorder, unspecified; G62.9 Polyneuropathy, unspecified; Z95.810 Presence of automatic (implantable) cardiac defibrillator; Z79.82 Long term (current) use of aspirin; Z79.52 Long term (current) use of systemic steroids; Z79.899 Other long term (current) drug therapy; Z88.8 Allergy status to other drugs, medicaments and biological substances; Z86.711 Personal history of pulmonary embolism; Z68.25 Body mass index [BMI] 25.0-25.9, adult; Z90.2 Acquired absence of lung [part of]
CPT/HCPCS: 36415; 71045; 71275; 80048; 80053; 80069; 80400; 82024; 82533; 82607; 82746; 83605; 83615; 83735; 85007; 85025; 85027; 86706; 87340; 90935; 93005; 93010; 93306; 96365; 96366; 96367; G0257; J0692; J0834; J1644; J2405; J3370; J7050; P9047; Q4081; Q9966

== ENCOUNTER 2018-08-02 17:37 | Inpatient (IN) | payer MEDICARE ==
--- NOTE | 2018-08-02 18:31 | RAD ---
XR Chest 1 View Portable History: [Dyspnea] Comparison: Radiograph June 05, 2018 Findings: Mild volume overload. Mild edema. Small effusions. Heart size is enlarged. Cardiac device i s similar. No acute osseous abnormality. Dialysis catheter tip sits at the cavoatrial junction. Impression: Mild volume overload.
[2018-08-02 18:49] LABS: #Eosinphils 0.1 thou/uL (0.0-0.7); #Monocytes 0.5 thou/uL (0.11-0.59); #Neutrophils 6.3 thou/uL (1.40-6.50); %Basophils 0.3 % (0.0-1.0); %Eosinophils 1.4 % (0.0-10.0); %Lymphocytes 12.7 % (21.0-51.0); %Monocytes 6.7 % (0.0-10.0); Hemoglobin 11.2 g/dL (14.0-18.0); Mean Corpuscular HGB CONC 32.3 g/dL (32.0-36.0); Mean Corpuscular Volume 99.2 fL (78.0-98.0); Mean Platelet Volume 10.4 fL (7.4-10.4); Platelet Count 39 thou/uL (130-400); Red Blood Cell (RBC) Count 3.49 mill/uL (4.70-6.10)
[2018-08-02 18:59] LABS: MDiff Complete? YES; Platelet Morphology Comment Appears Decreased; Polychromasia SLIGHT = 2-3 cells (100X) (0-2/hpf)
[2018-08-02 19:06] LABS: ALT (SGPT) 18 U/L (8-55); AST (SGOT) 18 U/L (5-34); Albumin 4.1 g/dL (3.5-5.0); Alkaline Phosphatase 250 U/L (40-150); Anion Gap 17 mmol/L (10-20); BUN (Urea Nitrogen) 17 mg/dL (8.9-20.6); Bilirubin, Total 1.1 mg/dL (0.2-1.2); Calc. Creatinine Clearance 0 mL/min (70-130); Calcium 9.5 mg/dL (7.8-10.44); Carbon Dioxide 27 mmol/L (22-29); Chloride 97 mmol/L (98-107); Estimated GFR-MDRD 27; Globulin 3.7 g/dL (2.4-3.5); Glucose 123 mg/dL (70-105); Potassium 3.4 mmol/L (3.5-5.1); Protein, Total 7.8 g/dL (6.0-8.3); Sodium 138 mmol/L (136-145)
[2018-08-02] MEDS ORDERED: Piperacillin/Tazobactam 4.5 GM VIAL ONE (19:18)
[2018-08-02 19:28] LABS: CKMB 0.8 ng/mL (0-6.6)
[2018-08-02] MEDS ORDERED: Hydrocortisone Sod Succ/PF 100 mg/2 ml Vial ONE (19:43)
[2018-08-02] MEDS ORDERED: Ondansetron ODT 4 MG TAB PO PRN (22:05)
[2018-08-02] MEDS ORDERED: Acetaminophen 325 MG TAB PO PRN (22:05)
[2018-08-02] MEDS ORDERED: Ondansetron PF 4 MG/2 ML Vial IVP PRN (22:05)
[2018-08-02 22:47] VITALS: BMI 25.0
[2018-08-02] MEDS ORDERED: HOLD VANCOMYCIN FOR LEVEL >20 FS SCH (23:15)
[2018-08-02 23:19] LABS: Lactic Acid 0.7 mmol/L (0.5-2.2)
--- NOTE | 2018-08-03 03:55 | HP ---
PRIMARY CARE PHYSICIAN: Rossana Blanc MD CODE STATUS: Full code. TIME OF EVALUATION: 9:45 p.m. CHIEF COMPLAINT: Shortness of breath and cough. HISTORY OF PRESENT ILLNESS: This is a 48-year-old male patient with past medical history of bilateral DVTs, PEs, hypertension, gout, mitral valve leak, atrial fibrillation, brain surgery, came to the hospital after having severe gradually worsening shortness of breath with no clear triggers, no alleviating factors. The patient gets dialysis with Dr. De La Rosa. The patient reportedly have low saturation, cough, fever, and severe pain, 7/10. REVIEW OF SYSTEMS: CONSTITUTIONAL: The patient had fever, chills, generalized weakness, respiratory cough, scant sputum production, and shortness of breath. CARDIOVASCULAR: No chest pain or palpitation. GASTROINTESTINAL: No nausea, no vomiting, diarrhea, or abdominal pain. OPERATOR CAVITY PUMP: No dizziness, headache, or feeling lightheaded. GENITOURINARY: No burning on urination. EXTREMITIES: Bilateral leg swelling. SKIN: The patient has a bed sore. All other systems were negative except for the findings mentioned above. PAST MEDICAL HISTORY: As mentioned in the HPI. PAST SURGICAL HISTORY: The patient has brain surgery for seizures, IVC filter, heart catheterization. PSYCHIATRIC HISTORY: No previous psychiatric history. SOCIAL HISTORY: The patient has no alcohol use. No drug use. No smoking history. Lives at home with family. FAMILY HISTORY: Reviewed and noncontributory for current presentation. Mother have kidney disease and heart problems. Father has heart problems. KNOWN ALLERGIES: 1. Midazolam. 2. Phenytoin. 3. Versed. REPORTED MEDICATIONS: 1. Melatonin. 2. Acetaminophen. 3. Oxcarbazepine. 4. Aspirin. 5. Prednisone. 6. Fludrocortisone. PHYSICAL EXAMINATION: VITAL SIGNS: On presentation, blood pressure 103/65 with heart rate 107, respiratory rate was 18, temperature 98.3. Pain 7/10, oxygen saturation 94% on 3 L. GENERAL APPEARANCE: The patient is alert, oriented, not in acute distress. HEENT: Eyes normal conjunctivae. Moist oral mucosa. Anicteric. No JVD. RESPIRATORY: The patient is hypoxic with bilateral air entry. Scant rales, no wheezes, symmetric expansion. CARDIOVASCULAR: The patient has normal rate, regular rhythm. No murmurs. No gallop. Leg edema. ABDOMEN: Soft. Normal bowel sounds. MUSCULOSKELETAL: Baseline range of motion and strength. No tenderness. SKIN: Warm, intact. No pallor. No rash. No redness. Peripheral pulses are present. Capillary refill seems to be intact. NEUROLOGIC: No evidence of any new focal weakness. Baseline speech. Cranial nerves seems to be intact. PSYCHIATRIC: The patient is in good mood. No anxiety. Optimal judgment. IMAGING STUDIES: EKG was reviewed. The patient has sinus tachycardia at the rate of 102, MO 140, QRS 108, QT corrected 555, possible left atrial enlargement, prolonged QT. Chest x-ray was reviewed. The patient has mild volume overload. LABORATORY DATA: Labs were reviewed. The patient has white count of 9.0, hemoglobin 11.2, MCV 99.2, platelet count 39. Chemistry; sodium 138, potassium 3.4, chloride 97, carbon dioxide 27, anion gap 17, BUN 17, creatinine 2.56, that is however his baseline in previous admissions. GFR 27, glucose 123, lactic acid 2.1, came down to 0.7, calcium 9.5. LFTs were negative. Alkaline phosphatase 250. Troponin 0.182 and beta natriuretic peptide 2466. ASSESSMENT AND PLAN: The patient will be placed in the hospital with the following medical problems: 1. Possible pneumonia. The patient has bilateral infiltrates. The patient had fever, could be healthcare associated pneumonia as the patient is receiving dialysis. We placed the patient on broad-spectrum antibiotics and we will follow cultures to adjust treatment as per sensitivity. 2. End-stage renal disease, on hemodialysis. The patient follows with Dr. De La Rosa, might need Dr. De La Rosa's assistance for hemodialysis inpatient while the patient is being treated. 3. Macrocytic anemia. This is likely secondary to underlying end-stage renal disease. We will defer to Nephrology for any further treatment. This is chronic, otherwise can be followed as outpatient. 4. Hypokalemia, potassium 3.4. This is mild, acceptable for end-stage renal disease patient, we will replace electrolytes as needed. 5. Mildly elevated troponin in the range of 0.182, we will trend troponins, this is likely secondary to underlying chronic kidney disease. 6. Deep venous thrombosis prophylaxis. Reportedly, the patient has IVC filter. Job ID: [id number]
[2018-08-03 04:59] LABS: Bilirubin Small (Negative); Blood, Urine Negative (Negative); Clarity CLEAR (Clear); Glucose, Urine (Dipstick) Negative (Negative); Leukocyte Negative (Negative); Nitrite Negative (Negative); Protein, Urine (Dipstick) 300 mg/dL (Neg-Trace); Urobilinogen 0.2 mg/dL (0.2-1.0); pH, Urine 5.5 (5.0-9.0)
[2018-08-03 05:05] LABS: Bacteria/HPF None Seen HPF (None Seen); Hyaline Casts/LPF 7-10 HYALINE CAST LPF (0-3 Hyaline); Pathc Cast-AUWi Flag 1.36 (0-2.49); Squamous Epithelial 0-3 HPF (0-3); WBC/HPF 0-3 HPF (0-3)
[2018-08-03 05:30] LABS: Renal Epithelial None Seen HPF (0-3); Transitional Epithelial NONE SEEN HPF (0-3); Yeast-All Forms None Seen HPF (None Seen)
[2018-08-03 06:19] LABS: #Lymphocytes 0.8 thou/uL (1.20-3.40); #Monocytes 0.4 thou/uL (0.11-0.59); #Neutrophils 3.7 thou/uL (1.40-6.50); %Basophils 0.5 % (0.0-1.0); %Eosinophils 0.4 % (0.0-10.0); %Lymphocytes 16.3 % (21.0-51.0); %Monocytes 8.2 % (0.0-10.0); %Neutrophils 74.6 % (42.0-75.0); Hemoglobin 8.9 g/dL (14.0-18.0); Mean Corpuscular HGB CONC 32.8 g/dL (32.0-36.0); Mean Corpuscular Hemoglobin 32.3 pg (27.0-31.0); Mean Corpuscular Volume 98.4 fL (78.0-98.0); Mean Platelet Volume 10.5 fL (7.4-10.4); Platelet Count 30 thou/uL (130-400); RBC Distribution Width 14.4 % (11.5-14.5); Red Blood Cell (RBC) Count 2.74 mill/uL (4.70-6.10); White Blood Cell (WBC) Count 4.9 thou/uL (4.8-10.8)
[2018-08-03 06:40] LABS: Anion Gap 16 mmol/L (10-20); BUN (Urea Nitrogen) 23 mg/dL (8.9-20.6); Calc. Creatinine Clearance 38 mL/min (70-130); Calcium 9.3 mg/dL (7.8-10.44); Carbon Dioxide 27 mmol/L (22-29); Chloride 95 mmol/L (98-107); Estimated GFR-MDRD 21; Glucose 104 mg/dL (70-105); Potassium 3.5 mmol/L (3.5-5.1); Sodium 134 mmol/L (136-145)
[2018-08-03] MEDS ORDERED: Hydrocortisone Sod Succ/PF 100 mg/2 ml Vial IVP SCH (08:00)
[2018-08-03] MEDS ORDERED: Melatonin 3 MG TAB PO PRN (08:01)
[2018-08-03] MEDS ORDERED: Acetaminophen 325 MG TAB PO PRN (08:01)
[2018-08-03] MEDS ORDERED: hydrALAZINE 20 MG/ML VIAL SLOW IVP PRN (08:02)
[2018-08-03] MEDS ORDERED: HYDROcodone/Acetaminophen 5/325 mg Tablet PO PRN (08:02)
[2018-08-03] MEDS ORDERED: Sodium Chloride 0.65% Nasal 44 ML BOT EA NARE PRN (08:02)
[2018-08-03] MEDS ORDERED: Cepastat Lozenges 1 LOZ PO PRN (08:02)
[2018-08-03] MEDS ORDERED: Senokot S 8.6-50 MG TAB PO PRN (08:02)
[2018-08-03] MEDS ORDERED: Loperamide HCl 2 MG CAP PO PRN (08:02)
[2018-08-03] MEDS ORDERED: Bisacodyl 5 MG TAB PO PRN (08:02)
[2018-08-03] MEDS ORDERED: Eucerin (Mineral Oil/Petrolatum,White) 30 gm Jar TOP PRN (08:02)
[2018-08-03] MEDS ORDERED: Calcium Carbonate 500 MG ChewTAB PO PRN (08:02)
[2018-08-03] MEDS ORDERED: Diabetic Tussin 200 MG/10 ML UDCUP PO PRN (08:02)
[2018-08-03] MEDS ORDERED: Artificial Tears 18 DROP/0.9 ML EA EYE PRN (08:02)
[2018-08-03 08:46] LABS: Vancomycin, Random 18.1 ug/mL (See Comment)
[2018-08-03] MEDS ORDERED: Vancomycin HCl 1 GM in Premix Bag 1 BAG IVPB SCH (09:00)
[2018-08-03] MEDS ORDERED: Heparin 5,000 UNITS/ML VIAL SC SCH (09:00)
[2018-08-03] MEDS ORDERED: Vancomycin HCl 750 MG in Sodium Chloride 0.9% 250 ML 250 ML IVPB SCH (09:00)
[2018-08-03] MEDS ORDERED: Vancomycin HCl 1.25 GM in Sodium Chloride 0.9% 250 ML 250 ML IVPB SCH (09:00)
[2018-08-03] MEDS: Vancomycin HCl 500 MG in Sodium Chloride 0.9% 100 ML IVPB SCH (10:07)
[2018-08-03] MEDS ORDERED: EPOETIN ALFA-EPBX (ESRD) 4,000 UNIT/ML VIAL SC SCH (10:15)
[2018-08-03] MEDS: Aspirin Chewable 81 MG TAB PO SCH (11:35)
[2018-08-03] MEDS: Fludrocortisone Acetate 0.1 MG TAB PO SCH (11:35)
[2018-08-03] MEDS: Piperacillin/Tazobactam 2.25 GM in Sodium Chloride 0.9% 100 ML IVPB SCH ×2 (11:35→19:45)
[2018-08-03] MEDS: OXcarbazepine 300 MG TAB PO SCH ×2 (11:35→19:45)
[2018-08-03] MEDS: Saccharomyces boulardii 250 MG CAP PO SCH (11:35)
--- NOTE | 2018-08-03 11:58 | PDOC.PN ---
- Subjective Encounter Start Date: 08/03/18 Encounter Start Time: 08:00 -: old records requested/rev Patient seen and examined. No new complaints. No overnight events - Objective Resuscitation Status - Order Detail: 08/02/18 22:05 Resuscitation Status Routine Resuscitation Status: FULL: Full Resuscitation MAR Reviewed: Yes Vital Signs & Weight: Vital Signs (12 hours) Temp Pulse Resp BP BP Pulse Ox 08/03/18 11:33 97.6 F 95 20 113/64 96 08/03/18 08:25 98 08/03/18 07:53 97.4 F L 76 20 121/77 98 08/03/18 04:00 97.6 F 83 20 111/70 96 08/03/18 00:00 98.2 F 93 20 126/83 96 Weight Weight 211 lb I&O: 08/02/18 08/03/18 08/04/18 06:59 06:59 06:59 Intake Total 450 Output Total 250 Balance 200 Result Diagrams: 08/03/18 05:58 08/03/18 05:58 Phys Exam - Physical Examination Constitutional: NAD HEENT: PERRLA, moist MMs, sclera anicteric Neck: no JVD, supple Respiratory: no wheezing, no rales, no rhonchi Cardiovascular: RRR, no significant murmur, no rub Gastrointestinal: soft, non-tender, no distention, positive bowel sounds Musculoskeletal: no edema, pulses present Neurological: non-focal, normal sensation, moves all 4 limbs Lymphatic: no nodes Psychiatric: normal affect, A&O x 3 Skin: no rash, normal turgor Dx/Plan (1) Fluid overload Code(s): E87.70 - FLUID OVERLOAD, UNSPECIFIED Status: Acute (2) Anemia of renal disease Code(s): N18.9 - CHRONIC KIDNEY DISEASE, UNSPECIFIED; D63.1 - ANEMIA IN CHRONIC KIDNEY DISEASE Status: Chronic (3) Antiphospholipid syndrome Code(s): D68.61 - ANTIPHOSPHOLIPID SYNDROME Status: Chronic (4) Atrial fibrillation Code(s): I48.91 - UNSPECIFIED ATRIAL FIBRILLATION Status: Chronic Qualifiers: Atrial fibrillation type: paroxysmal Qualified Code(s): I48.0 - Paroxysmal atrial fibrillation (5) CAD (coronary artery disease) Code(s): I25.10 - ATHSCL HEART DISEASE OF [place] CORONARY ARTERY W/O ANG PCTRS Status: Chronic (6) Elevated troponin Code(s): R74.8 - ABNORMAL LEVELS OF OTHER SERUM ENZYMES Status: Chronic Comment: due to ESRD, not demand ischemia and not Type-2 ID (7) End stage renal disease on dialysis Code(s): N18.6 - END STAGE RENAL DISEASE; Z99.2 - DEPENDENCE ON RENAL DIALYSIS Status: Chronic (8) Gout Code(s): M10.9 - GOUT, UNSPECIFIED Status: Chronic Qualifiers: Gout site: unspecified site Gout etiology: unspecified cause (9) HTN (hypertension) Code(s): I10 - ESSENTIAL (PRIMARY) HYPERTENSION Status: Chronic Qualifiers: Hypertension type: essential hypertension Qualified Code(s): I10 - Essential (primary) hypertension (10) Nonischemic cardiomyopathy Code(s): I42.8 - OTHER CARDIOMYOPATHIES Status: Chronic Comment: With BiV AICD (11) Pancytopenia Code(s): D61.818 - OTHER PANCYTOPENIA Status: Chronic (12) Physical deconditioning Code(s): R53.81 - OTHER MALAISE Status: Chronic (13) Seizure disorder Code(s): G40.909 - EPILEPSY, UNSP, NOT INTRACTABLE, WITHOUT STATUS EPILEPTICUS Status: Chronic (14) Thrombocytopenia Code(s): D69.6 - THROMBOCYTOPENIA, UNSPECIFIED Status: Chronic Comment: (15) History of pulmonary embolism Code(s): Z86.711 - PERSONAL HISTORY OF PULMONARY EMBOLISM Status: Chronic Comment: h/o IVC filter. not on OAC due to chronic Thrombocytopenia - Plan cont current plan of care * medication reviewed as below * symptomatic treatment * continue empiric antibiotics * HD as per nephro * follow culture * wean off oxygen as tolerated * clinically appear stable at this time. Review of Systems - Review of Systems Constitutional: weakness. negative: fever, chills, sweats, malaise, other ENT: negative: Ear Pain, Ear Discharge, Nose Pain, Nose Discharge, Nose Congestion, Mouth Pain, Mouth Swelling, Throat Pain, Throat Swelling, Other Respiratory: Cough, Shortness of Breath Cardiovascular: negative: chest pain, palpitations, orthopnea, paroxysmal nocturnal dyspnea, edema, light headedness, other Gastrointestinal: negative: Nausea, Vomiting, Abdominal Pain, Diarrhea, Constipation, Melena, Hematochezia, Other Genitourinary: negative: Dysuria, Frequency, Incontinence, Hematuria, Retention , Other Musculoskeletal: negative: Neck Pain, Shoulder Pain, Arm Pain, Back Pain, Hand Pain, Leg Pain, Foot Pain, Other Skin: negative: Rash, Lesions, Loy, Bruising, Other - Medications/Allergies Allergies/Adverse Reactions: Allergies Allergy/AdvReac Type Severity Reaction Status Date / Time phenytoin sodium Allergy Severe Emesis Verified 08/03/18 00:29 [From Dilantin] phenytoin sodium extended Allergy Severe Emesis Verified 08/03/18 00:29 [From Dilantin] midazolam HCl [From Versed] Allergy Intermediate swelling Verified 08/03/18 00: 29 Medications: Current Medications Acetaminophen (Tylenol) 650 mg PO Q4H PRN PRN Reason: Headache/Fever/Mild Pain (1-3) Hydrocodone Bitart/Acetaminophen ([place] 5/325) 1 tab PO Q4H PRN PRN Reason: Moderate Pain (4-6) Albuterol/Ipratropium (Duoneb) 3 ml NEB [id number] Artificial Tears (Tears Naturale) 2 drop EA EYE PRN PRN PRN Reason: Dry Eyes Aspirin (Aspirin Chewable) 81 mg PO DAILY [facility] Last Admin: 08/03/18 11:35 Dose: 81 mg Bisacodyl (Dulcolax) 10 mg PO DAILYPRN PRN PRN Reason: Constipation Calcium Carbonate (Tums) 1,000 mg PO Q4H PRN PRN Reason: Heartburn or Indigestion Fludrocortisone Acetate (Florinef) 0.1 mg PO DAILY [facility] Last Admin: 08/03/18 11:35 Dose: 0.1 mg Guaifenesin (Robitussin Sf) 200 mg PO Q4H PRN PRN Reason: Cough Hydralazine HCl (Apresoline) 10 mg SLOW IVP Q4H PRN PRN Reason: SBP > 180 and HR < 70 Vancomycin HCl 1.25 gm/ Sodium (Chloride) 250 mls @ 166.667 mls/hr IVPB [facility] Vancomycin HCl 1 gm/ Device 200 mls @ 200 mls/hr IVPB [facility] Vancomycin HCl 750 mg/ Sodium (Chloride) 250 mls @ 250 mls/hr IVPB [facility] Vancomycin HCl 500 mg/ Sodium (Chloride) 100 mls @ 100 mls/hr IVPB [facility] Last Admin: 08/03/18 10:07 Dose: 100 mls Piperacillin Sod/Tazobactam (Sod 2.25 gm/ Sodium Chloride) 100 mls @ 200 mls/ hr IVPB Q12HR [facility] Last Admin: 08/03/18 11:35 Dose: 100 mls Loperamide HCl (Imodium) 2 mg PO PRN PRN PRN Reason: Diarrhea/Loose Stools Melatonin (Melatonin) 6 mg PO HS PRN PRN Reason: Insomnia Mineral Oil/White Petrolatum (Eucerin Cream) 0 gm TOP BIDPRN PRN PRN Reason: Dry Skin Miscellaneous Medication (Pharmacy To Dose) 1 each IVPB PRN PRN PRN Reason: Pharmacy to dose Miscellaneous Medication (Pharmacy To Dose) 1 each IVPB PRN PRN PRN Reason: Pharmacy to dose Hold Vancomycin For (Level >20) 0 each FS .[facility] Ondansetron HCl (Zofran Odt) 4 mg PO Q6H PRN PRN Reason: Nausea/Vomiting Ondansetron HCl (Zofran) 4 mg IVP Q6H PRN PRN Reason: Nausea/Vomiting Oxcarbazepine (Trileptal) 600 mg PO BID [facility] Last Admin: 08/03/18 11:35 Dose: 600 mg Prednisone (Prednisone) 10 mg PO QPM[facility] Saccharomyces Boulardii (Florastor) 250 mg PO DAILY [facility] Last Admin: 08/03/18 11:35 Dose: 250 mg Senna/Docusate Sodium (Senokot S) 2 tab PO BID PRN PRN Reason: Constipation Sodium Chloride (Flush - Normal Saline) 10 ml IVF PRN PRN PRN Reason: Saline Flush Sodium Chloride ([place] Nas[place] 0.65%) 0 ml EA NARE QIDPRN PRN PRN Reason: Nasal Congestion Throat Lozenges (Cepastat Lozenges) 1 jay PO Q2H PRN PRN Reason: Sore Throat
[2018-08-03] MEDS ORDERED: Heparin 10,000 UNITS/ 10 ML VIAL ONE (15:00)
--- NOTE | 2018-08-03 16:43 | CON ---
DATE OF CONSULTATION: HISTORY OF PRESENT ILLNESS: Mr. Boo is a 48-year-old white male with ESRD-maintenance hemodialysis and admitted for shortness of breath and cough. He was also noted to be hypoxemic at the dialysis unit. We maxed out fluid removal with hemodialysis. He is now admitted for further management. He was also seen to be febrile and empiric IV antibiotics have been started. Chest x-ray shows some mild CHF. I am doing extra hemodialysis with this patient for fluid removal. I am at the bedside supervising his dialysis. REVIEW OF SYSTEMS: Positive for chronic cough. No chest pain. Mild shortness of breath. No nausea. No vomiting. Appetite is fair. Energy level is fair. No diarrhea. No constipation. Decreased energy level. No headache. No diplopia. No syncopal episode. Positive for fever. No hematochezia. No melena. No hematemesis. No gross hematuria. MEDICATIONS: Currently on: 1. IV vancomycin. 2. Sliding scale. 3. DuoNeb q.6. 4. Dulcolax 10 mg p.o. 5. Florinef 0.1 mg daily. 6. Hydralazine 10 mg IV q.4 p.r.n. 7. Imodium p.r.n. 8. Topiramate 200 mg p.o. b.i.d. 9. Zofran p.r.n. 10. Trileptal 600 mg p.o. b.i.d. 11. Zosyn 2.25 g IV q.12. 12. Florastor 250 mg daily. 13. Prednisone 10 mg q.p.m. PAST MEDICAL HISTORY: 1. ESRD, currently on maintenance hemodialysis. 2. Seizure disorder. 3. Status post CHF. 4. Status post renal bleed. 5. Gout. 6. Chronic systolic dysfunction. 7. Chronic hypotension. 8. Antiphospholipid antibody syndrome. 9. Status post DVT. 10. Status post PE. PAST SURGICAL HISTORY: 1. Status post AV fistula placement. 2. Status post cuffed dialysis catheter placement. 3. Status post cardiac cath. 4. Status post IVC filter placement. 5. Status post craniotomy for persistent seizures. SOCIAL HISTORY: The patient is , several children. He lives at home. He lives in [place]. Currently, no smoking. No alcohol intake. Sedentary lifestyle. ALLERGIES: MIDAZOLAM, PHENYTOIN, VERSED? AMIODARONE-ADVERSE REACTION-COUGH. FAMILY HISTORY: No family history of ESRD. PHYSICAL EXAMINATION: VITAL SIGNS: Blood pressure is currently noted at 117/69 and heart rate 70. GENERAL: Awake, alert, comfortable, not in distress. SKIN: Adequate turgor. HEENT: He has pinkish conjunctivae. Anicteric sclerae. NECK: No neck mass. No carotid bruits. No JVD. CHEST: No deformities. LUNGS: Harsh breath sounds. HEART: Normal sinus rhythm. No murmur. No gallops. No rubs. ABDOMEN: Globular, soft, and nontender. EXTREMITIES: No edema. No deformities. LABORATORY DATA: Laboratories on August 02, 2018, were reviewed. ASSESSMENT AND PLAN: 1. Congestive heart failure/hypoxemia, extra hemodialysis today. Attempt 2 L to 3 L fluid removal as tolerated. 2. End-stage renal disease. Continue current hemodialysis regimen Wednesday, , and Wednesday. Review of the last Kt/V suggests he is adequately dialyzed with the current dialysis regimen. 3. Fever, unclear etiology, consider pneumonia? On empiric IV antibiotics. Please note, currently the patient is afebrile. 4. Anemia. Continuing weekly Epogen with this patient 7500 units subcutaneous weekly. 5. Agree with current management. Job ID: [id number]
[2018-08-03] MEDS: predniSONE 5 MG TAB PO SCH (17:54)
--- NOTE | 2018-08-04 06:54 | PRG ---
DATE OF SERVICE: SUBJECTIVE: Mr. Kemp is a 48-year-old white male with ESRD and on maintenance hemodialysis. He was admitted for shortness of breath and hypoxemia. Chest x-ray reveals some degree of volume overload. He underwent extra hemodialysis yesterday for fluid removal. At outpatient dialysis on the day of admission, we maxed out fluid removal. This morning, he is feeling better. His shortness of breath is much improved. In addition, his cough is also improved. He has been also empirically treated with IV antibiotics. No other complaints today. No chest pain or shortness of breath. He is due for his regular dialysis this morning. OBJECTIVE: VITAL SIGNS: Blood pressure is 126/83, heart rate 88, respiratory rate 18, temperature 97.7, and pulse ox 100%. GENERAL: Noted to be awake, supine, comfortable, not in distress. SKIN: Adequate turgor. HEENT: He has pinkish conjunctivae. Anicteric sclerae. No neck mass. No carotid bruits. No JVD. CHEST: No deformities. LUNGS: Clear breath sounds. HEART: Normal sinus rhythm. No murmur. No gallops. No rubs. ABDOMEN: Globular, soft, nontender. No masses. EXTREMITIES: No edema. No deformities. MEDICATIONS: Of August 04, 2018, reviewed. LABORATORY DATA: Of August 03, 2018, white count 4.9, hemoglobin 8.9, sodium 134, potassium 3.5, chloride 95, carbon dioxide 27, BUN 23, creatinine 3.23, calcium 9.3, glucose 104. BNP 2466. ASSESSMENT AND PLAN: 1. End-stage renal disease, stable. We will continue current Wednesday, , and Wednesday hemodialysis. Fluid removal as tolerated by the patient. 2. Shortness of breath/congestive heart failure, clinically much improved. The patient is now oxygenating at about 100% on 2 L of nasal cannula. 3. Fever?-on empiric IV antibiotics. 4. Blood culture on August 02, 2018 grew a coag-negative staphylococcus in one of two cultures. 5. So far, of interest, there was a comment that this could be simply a skin contaminant. 6. Overall, agree with current management. Recheck basic metabolic and CBC in the a.m. Job ID: [id number]
[2018-08-04] MEDS: Aspirin Chewable 81 MG TAB PO SCH (08:09)
[2018-08-04] MEDS: OXcarbazepine 300 MG TAB PO SCH ×2 (08:09→20:10)
[2018-08-04] MEDS: Saccharomyces boulardii 250 MG CAP PO SCH (08:09)
[2018-08-04] MEDS: Fludrocortisone Acetate 0.1 MG TAB PO SCH (08:09)
--- NOTE | 2018-08-04 10:16 | PDOC.PN ---
- Subjective Encounter Start Date: 08/04/18 Encounter Start Time: 08:50 Patient seen and examined. No new complaints. No overnight events - Objective Resuscitation Status - Order Detail: 08/02/18 22:05 Resuscitation Status Routine Resuscitation Status: FULL: Full Resuscitation MAR Reviewed: Yes Vital Signs & Weight: Vital Signs (12 hours) Temp Pulse Resp BP BP Pulse Ox 08/04/18 07:10 97.4 F L 88 20 103/67 100 08/04/18 06:32 88 18 98 08/04/18 04:00 97.7 F 88 18 126/83 100 08/04/18 02:25 93 L 08/04/18 01:02 67 12 96 Weight Admit Weight 211 lb Weight 211 lb I&O: 08/03/18 08/04/18 08/05/18 06:59 06:59 06:59 Intake Total 450 800 Output Total 250 Balance 200 800 Result Diagrams: 08/03/18 05:58 08/03/18 05:58 Phys Exam - Physical Examination Constitutional: NAD HEENT: PERRLA, moist MMs, sclera anicteric Neck: no JVD, supple Respiratory: no wheezing, no rales, no rhonchi Cardiovascular: RRR, no significant murmur, no rub Gastrointestinal: soft, non-tender, no distention, positive bowel sounds Musculoskeletal: no edema, pulses present Neurological: non-focal, normal sensation Lymphatic: no nodes Psychiatric: normal affect Skin: no rash, normal turgor Dx/Plan (1) Fluid overload Code(s): E87.70 - FLUID OVERLOAD, UNSPECIFIED Status: Acute (2) Anemia of renal disease Code(s): N18.9 - CHRONIC KIDNEY DISEASE, UNSPECIFIED; D63.1 - ANEMIA IN CHRONIC KIDNEY DISEASE Status: Chronic (3) Antiphospholipid syndrome Code(s): D68.61 - ANTIPHOSPHOLIPID SYNDROME Status: Chronic (4) Atrial fibrillation Code(s): I48.91 - UNSPECIFIED ATRIAL FIBRILLATION Status: Chronic Qualifiers: Atrial fibrillation type: paroxysmal Qualified Code(s): I48.0 - Paroxysmal atrial fibrillation (5) CAD (coronary artery disease) Code(s): I25.10 - ATHSCL HEART DISEASE OF [place] CORONARY ARTERY W/O ANG PCTRS Status: Chronic (6) Elevated troponin Code(s): R74.8 - ABNORMAL LEVELS OF OTHER SERUM ENZYMES Status: Chronic Comment: due to ESRD, not demand ischemia and not Type-2 [place] (7) End stage renal disease on dialysis Code(s): N18.6 - END STAGE RENAL DISEASE; Z99.2 - DEPENDENCE ON RENAL DIALYSIS Status: Chronic (8) Gout Code(s): M10.9 - GOUT, UNSPECIFIED Status: Chronic Qualifiers: Gout site: unspecified site Gout etiology: unspecified cause (9) HTN (hypertension) Code(s): I10 - ESSENTIAL (PRIMARY) HYPERTENSION Status: Chronic Qualifiers: Hypertension type: essential hypertension Qualified Code(s): I10 - Essential (primary) hypertension (10) Nonischemic cardiomyopathy Code(s): I42.8 - OTHER CARDIOMYOPATHIES Status: Chronic Comment: With BiV AICD (11) Pancytopenia Code(s): D61.818 - OTHER PANCYTOPENIA Status: Chronic (12) Physical deconditioning Code(s): R53.81 - OTHER MALAISE Status: Chronic (13) Seizure disorder Code(s): G40.909 - EPILEPSY, UNSP, NOT INTRACTABLE, WITHOUT STATUS EPILEPTICUS Status: Chronic (14) Thrombocytopenia Code(s): D69.6 - THROMBOCYTOPENIA, UNSPECIFIED Status: Chronic Comment: (15) History of pulmonary embolism Code(s): Z86.711 - PERSONAL HISTORY OF PULMONARY EMBOLISM Status: Chronic Comment: h/o IVC filter. not on OAC due to chronic Thrombocytopenia - Plan cont current plan of care, continue antibiotics * medication reviewed as below * symptomatic treatment * continue current antibiotics * today wean off oxygen * start PT/OT. Review of Systems - Review of Systems ENT: negative: Ear Pain, Ear Discharge, Nose Pain, Nose Discharge, Nose Congestion, Mouth Pain, Mouth Swelling, Throat Pain, Throat Swelling, Other Respiratory: negative: Cough, Dry, Shortness of Breath, Hemoptysis, SOB with Excertion, Pleuritic Pain, Sputum, Wheezing Cardiovascular: negative: chest pain, palpitations, orthopnea, paroxysmal nocturnal dyspnea, edema, light headedness, other Gastrointestinal: negative: Nausea, Vomiting, Abdominal Pain, Diarrhea, Constipation, Melena, Hematochezia, Other Genitourinary: negative: Dysuria, Frequency, Incontinence, Hematuria, Retention , Other Musculoskeletal: negative: Neck Pain, Shoulder Pain, Arm Pain, Back Pain, Hand Pain, Leg Pain, Foot Pain, Other Skin: negative: Rash, Lesions, Loy, Bruising, Other - Medications/Allergies Allergies/Adverse Reactions: Allergies Allergy/AdvReac Type Severity Reaction Status Date / Time phenytoin sodium Allergy Severe Emesis Verified 08/03/18 00:29 [From Dilantin] phenytoin sodium extended Allergy Severe Emesis Verified 08/03/18 00:29 [From Dilantin] midazolam HCl [From Versed] Allergy Intermediate swelling Verified 08/03/18 00: 29 Medications: Current Medications Acetaminophen (Tylenol) 650 mg PO Q4H PRN PRN Reason: Headache/Fever/Mild Pain (1-3) Hydrocodone Bitart/Acetaminophen ([place] 5/325) 1 tab PO Q4H PRN PRN Reason: Moderate Pain (4-6) Albuterol/Ipratropium (Duoneb) 3 ml NEB [id number] Last Admin: 08/04/18 06:32 Dose: 3 ml Artificial Tears (Tears Naturale) 2 drop EA EYE PRN PRN PRN Reason: Dry Eyes Aspirin (Aspirin Chewable) 81 mg PO DAILY [facility] Last Admin: 08/04/18 08:09 Dose: 81 mg Bisacodyl (Dulcolax) 10 mg PO DAILYPRN PRN PRN Reason: Constipation Calcium Carbonate (Tums) 1,000 mg PO Q4H PRN PRN Reason: Heartburn or Indigestion Fludrocortisone Acetate (Florinef) 0.1 mg PO DAILY [facility] Last Admin: 08/04/18 08:09 Dose: 0.1 mg Guaifenesin (Robitussin Sf) 200 mg PO Q4H PRN PRN Reason: Cough Hydralazine HCl (Apresoline) 10 mg SLOW IVP Q4H PRN PRN Reason: SBP > 180 and HR < 70 Vancomycin HCl 1.25 gm/ Sodium (Chloride) 250 mls @ 166.667 mls/hr IVPB [facility] Vancomycin HCl 1 gm/ Device 200 mls @ 200 mls/hr IVPB [facility] Vancomycin HCl 750 mg/ Sodium (Chloride) 250 mls @ 250 mls/hr IVPB [facility] Vancomycin HCl 500 mg/ Sodium (Chloride) 100 mls @ 100 mls/hr IVPB [facility] Last Admin: 08/03/18 10:07 Dose: 100 mls Piperacillin Sod/Tazobactam (Sod 2.25 gm/ Sodium Chloride) 100 mls @ 200 mls/ hr IVPB Q12HR [facility] Last Admin: 08/03/18 19:45 Dose: 100 mls Loperamide HCl (Imodium) 2 mg PO PRN PRN PRN Reason: Diarrhea/Loose Stools Melatonin (Melatonin) 6 mg PO HS PRN PRN Reason: Insomnia Mineral Oil/White Petrolatum (Eucerin Cream) 0 gm TOP BIDPRN PRN PRN Reason: Dry Skin Miscellaneous Medication (Pharmacy To Dose) 1 each IVPB PRN PRN PRN Reason: Pharmacy to dose Miscellaneous Medication (Pharmacy To Dose) 1 each IVPB PRN PRN PRN Reason: Pharmacy to dose Hold Vancomycin For (Level >20) 0 each FS .AT DIALYSIS [facility] Ondansetron HCl (Zofran Odt) 4 mg PO Q6H PRN PRN Reason: Nausea/Vomiting Ondansetron HCl (Zofran) 4 mg IVP Q6H PRN PRN Reason: Nausea/Vomiting Oxcarbazepine (Trileptal) 600 mg PO BID [facility] Last Admin: 08/04/18 08:09 Dose: 600 mg Prednisone (Prednisone) 10 mg PO QPM-[facility] Last Admin: 08/03/18 17:54 Dose: 10 mg Saccharomyces Boulardii (Florastor) 250 mg PO DAILY [facility] Last Admin: 08/04/18 08:09 Dose: 250 mg Senna/Docusate Sodium (Senokot S) 2 tab PO BID PRN PRN Reason: Constipation Sodium Chloride (Flush - Normal Saline) 10 ml IVF PRN PRN PRN Reason: Saline Flush Sodium Chloride ([place] Nasal [place] 0.65%) 0 ml EA NARE QIDPRN PRN PRN Reason: Nasal Congestion Throat Lozenges (Cepastat Lozenges) 1 jay PO Q2H PRN PRN Reason: Sore Throat
[2018-08-04] MEDS: Vancomycin HCl 500 MG in Sodium Chloride 0.9% 100 ML IVPB SCH (11:50)
[2018-08-04] MEDS: Piperacillin/Tazobactam 2.25 GM in Sodium Chloride 0.9% 100 ML IVPB SCH ×2 (13:09→20:10)
[2018-08-04] MEDS ORDERED: Heparin 10,000 UNITS/ 10 ML VIAL ONE (15:00)
[2018-08-04] MEDS: predniSONE 5 MG TAB PO SCH (17:28)
[2018-08-05] MEDS: Saccharomyces boulardii 250 MG CAP PO SCH (08:18)
[2018-08-05] MEDS: OXcarbazepine 300 MG TAB PO SCH (08:18)
[2018-08-05] MEDS: Fludrocortisone Acetate 0.1 MG TAB PO SCH (08:19)
[2018-08-05] MEDS: Aspirin Chewable 81 MG TAB PO SCH (08:19)
[2018-08-05] MEDS: Piperacillin/Tazobactam 2.25 GM in Sodium Chloride 0.9% 100 ML IVPB SCH (08:19)
[2018-08-05 08:36] LABS: Vancomycin, Random 14.7 ug/mL (See Comment)
[2018-08-05 08:37] LABS: Anion Gap 15 mmol/L (10-20); BUN (Urea Nitrogen) 25 mg/dL (8.9-20.6); Calc. Creatinine Clearance 29 mL/min (70-130); Calcium 9.3 mg/dL (7.8-10.44); Carbon Dioxide 26 mmol/L (22-29); Chloride 97 mmol/L (98-107); Estimated GFR-MDRD 15; Glucose 104 mg/dL (70-105); Potassium 3.9 mmol/L (3.5-5.1); Sodium 134 mmol/L (136-145)
[2018-08-05 08:40] LABS: #Basophils 0.1 thou/uL (0.0-0.2); #Eosinphils 0.1 thou/uL (0.0-0.7); #Lymphocytes 0.9 thou/uL (1.20-3.40); #Monocytes 0.4 thou/uL (0.11-0.59); #Neutrophils 3.8 thou/uL (1.40-6.50); %Basophils 1.8 % (0.0-1.0); %Eosinophils 1.1 % (0.0-10.0); %Lymphocytes 17.3 % (21.0-51.0); %Monocytes 7.2 % (0.0-10.0); %Neutrophils 72.6 % (42.0-75.0); Hemoglobin 9.1 g/dL (14.0-18.0); Mean Corpuscular Hemoglobin 31.7 pg (27.0-31.0); Mean Corpuscular Volume 99.2 fL (78.0-98.0); Mean Platelet Volume 9.4 fL (7.4-10.4); Platelet Count 53 thou/uL (130-400); RBC Distribution Width 14.5 % (11.5-14.5); Red Blood Cell (RBC) Count 2.86 mill/uL (4.70-6.10); White Blood Cell (WBC) Count 5.2 thou/uL (4.8-10.8)
--- NOTE | 2018-08-05 10:47 | PDOC.PN ---
- Subjective Encounter Start Date: 08/05/18 Encounter Start Time: 08:50 Patient seen and examined. No new complaints. No overnight events - Objective Resuscitation Status - Order Detail: 08/02/18 22:05 Resuscitation Status Routine Resuscitation Status: FULL: Full Resuscitation MAR Reviewed: Yes Vital Signs & Weight: Vital Signs (12 hours) Temp Pulse Resp BP BP Pulse Ox Pulse Ox 08/05/18 08:17 97.8 F 106 H 20 127/76 97 08/05/18 07:50 94 L 08/05/18 06:45 96 08/05/18 06:43 96 16 96 08/05/18 00:21 92 16 08/05/18 00:00 98.1 F 84 20 115/78 96 Weight Admit Weight 211 lb Weight 211 lb I&O: 08/04/18 08/05/18 08/06/18 06:59 06:59 06:59 Intake Total 800 1440 Output Total 0 Balance 800 1440 Result Diagrams: 08/05/18 07:52 08/05/18 07:52 Phys Exam - Physical Examination Constitutional: NAD HEENT: PERRLA, moist MMs, sclera anicteric Neck: no JVD, supple Respiratory: no wheezing, no rales, no rhonchi Cardiovascular: RRR, no significant murmur, no rub Gastrointestinal: soft, non-tender, no distention, positive bowel sounds Musculoskeletal: no edema, pulses present Neurological: non-focal, normal sensation Lymphatic: no nodes Psychiatric: normal affect, A&O x 3 Skin: no rash, normal turgor Dx/Plan (1) Fluid overload Code(s): E87.70 - FLUID OVERLOAD, UNSPECIFIED Status: Resolved (2) Anemia of renal disease Code(s): N18.9 - CHRONIC KIDNEY DISEASE, UNSPECIFIED; D63.1 - ANEMIA IN CHRONIC KIDNEY DISEASE Status: Chronic (3) Antiphospholipid syndrome Code(s): D68.61 - ANTIPHOSPHOLIPID SYNDROME Status: Chronic (4) Atrial fibrillation Code(s): I48.91 - UNSPECIFIED ATRIAL FIBRILLATION Status: Chronic Qualifiers: Atrial fibrillation type: paroxysmal Qualified Code(s): I48.0 - Paroxysmal atrial fibrillation (5) CAD (coronary artery disease) Code(s): I25.10 - ATHSCL HEART DISEASE OF [place] CORONARY ARTERY W/O ANG PCTRS Status: Chronic (6) Elevated troponin Code(s): R74.8 - ABNORMAL LEVELS OF OTHER SERUM ENZYMES Status: Chronic Comment: due to ESRD, not demand ischemia and not Type-2 MS (7) End stage renal disease on dialysis Code(s): N18.6 - END STAGE RENAL DISEASE; Z99.2 - DEPENDENCE ON RENAL DIALYSIS Status: Chronic (8) Gout Code(s): M10.9 - GOUT, UNSPECIFIED Status: Chronic Qualifiers: Gout site: unspecified site Gout etiology: unspecified cause (9) HTN (hypertension) Code(s): I10 - ESSENTIAL (PRIMARY) HYPERTENSION Status: Chronic Qualifiers: Hypertension type: essential hypertension Qualified Code(s): I10 - Essential (primary) hypertension (10) Nonischemic cardiomyopathy Code(s): I42.8 - OTHER CARDIOMYOPATHIES Status: Chronic Comment: With BiV AICD (11) Pancytopenia Code(s): D61.818 - OTHER PANCYTOPENIA Status: Chronic (12) Physical deconditioning Code(s): R53.81 - OTHER MALAISE Status: Chronic (13) Seizure disorder Code(s): G40.909 - EPILEPSY, UNSP, NOT INTRACTABLE, WITHOUT STATUS EPILEPTICUS Status: Chronic (14) Thrombocytopenia Code(s): D69.6 - THROMBOCYTOPENIA, UNSPECIFIED Status: Chronic Comment: (15) History of pulmonary embolism Code(s): Z86.711 - PERSONAL HISTORY OF PULMONARY EMBOLISM Status: Chronic Comment: h/o IVC filter. not on OAC due to chronic Thrombocytopenia - Plan cont current plan of care, continue antibiotics * medication reviewed as below * symptomatic treatment * change to omnicef * will discharge later today. Review of Systems - Review of Systems ENT: negative: Ear Pain, Ear Discharge, Nose Pain, Nose Discharge, Nose Congestion, Mouth Pain, Mouth Swelling, Throat Pain, Throat Swelling, Other Respiratory: negative: Cough, Dry, Shortness of Breath, Hemoptysis, SOB with Excertion, Pleuritic Pain, Sputum, Wheezing Cardiovascular: negative: chest pain, palpitations, orthopnea, paroxysmal nocturnal dyspnea, edema, light headedness, other Gastrointestinal: negative: Nausea, Vomiting, Abdominal Pain, Diarrhea, Constipation, Melena, Hematochezia, Other Genitourinary: negative: Dysuria, Frequency, Incontinence, Hematuria, Retention , Other Musculoskeletal: negative: Neck Pain, Shoulder Pain, Arm Pain, Back Pain, Hand Pain, Leg Pain, Foot Pain, Other Skin: negative: Rash, Lesions, Loy, Bruising, Other - Medications/Allergies Allergies/Adverse Reactions: Allergies Allergy/AdvReac Type Severity Reaction Status Date / Time phenytoin sodium Allergy Severe Emesis Verified 08/03/18 00:29 [From Dilantin] phenytoin sodium extended Allergy Severe Emesis Verified 08/03/18 00:29 [From Dilantin] midazolam HCl [From Versed] Allergy Intermediate swelling Verified 08/03/18 00: 29 Medications: Current Medications Acetaminophen (Tylenol) 650 mg PO Q4H PRN PRN Reason: Headache/Fever/Mild Pain (1-3) Hydrocodone Bitart/Acetaminophen (Daniel 5/325) 1 tab PO Q4H PRN PRN Reason: Moderate Pain (4-6) Albuterol/Ipratropium (Duoneb) 3 ml NEB H2AH-RH [facility] Last Admin: 08/05/18 06:43 Dose: 3 ml Artificial Tears (Tears Naturale) 2 drop EA EYE PRN PRN PRN Reason: Dry Eyes Aspirin (Aspirin Chewable) 81 mg PO DAILY [facility] Last Admin: 08/05/18 08:19 Dose: 81 mg Bisacodyl (Dulcolax) 10 mg PO DAILYPRN PRN PRN Reason: Constipation Calcium Carbonate (Tums) 1,000 mg PO Q4H PRN PRN Reason: Heartburn or Indigestion Fludrocortisone Acetate (Florinef) 0.1 mg PO DAILY [facility] Last Admin: 08/05/18 08:19 Dose: 0.1 mg Guaifenesin (Robitussin Sf) 200 mg PO Q4H PRN PRN Reason: Cough Hydralazine HCl (Apresoline) 10 mg SLOW IVP Q4H PRN PRN Reason: SBP > 180 and HR < 70 Vancomycin HCl 1.25 gm/ Sodium (Chloride) 250 mls @ 166.667 mls/hr IVPB WILLCALL [facility] Vancomycin HCl 1 gm/ Device 200 mls @ 200 mls/hr IVPB [facility] Vancomycin HCl 750 mg/ Sodium (Chloride) 250 mls @ 250 [facility]ls[facility] 500 mg/ Sodium (Chloride) 100 mls @ 100 mls/hr IVPB [facility] Last Admin: 08/04/18 11:50 Dose: 100 mls Piperacillin Sod/Tazobactam (Sod 2.25 gm/ Sodium Chloride) 100 mls @ 200 mls/ hr IVPB Q12HR [facility] Last Admin: 08/05/18 08:19 Dose: 100 mls Loperamide HCl (Imodium) 2 mg PO PRN PRN PRN Reason: Diarrhea/Loose Stools Melatonin (Melatonin) 6 mg PO HS PRN PRN Reason: Insomnia Mineral Oil/White Petrolatum (Eucerin Cream) 0 gm TOP BIDPRN PRN PRN Reason: Dry Skin Miscellaneous Medication (Pharmacy To Dose) 1 each IVPB PRN PRN PRN Reason: Pharmacy to dose Miscellaneous Medication (Pharmacy To Dose) 1 each IVPB PRN PRN PRN Reason: Pharmacy to dose Hold Vancomycin For (Level >20) 0 each FS .AT DIALYSIS [facility] Ondansetron HCl (Zofran Odt) 4 mg PO Q6H PRN PRN Reason: Nausea/Vomiting Ondansetron HCl (Zofran) 4 mg IVP Q6H PRN PRN Reason: Nausea/Vomiting Oxcarbazepine (Trileptal) 600 mg PO BID [facility] Last Admin: 08/05/18 08:18 Dose: 600 mg Prednisone (Prednisone) 10 mg PO [facility] Last Admin: 08/04/18 17:28 Dose: 10 mg Saccharomyces Boulardii (Florastor) 250 mg PO DAILY [facility] Last Admin: 08/05/18 08:18 Dose: 250 mg Senna/Docusate Sodium (Senokot S) 2 tab PO BID PRN PRN Reason: Constipation Sodium Chloride (Flush - Normal Saline) 10 ml IVF PRN PRN PRN Reason: Saline Flush Last Admin: 08/05/18 08:20 Dose: 10 ml Sodium Chloride ([place] Nasal [place] 0.65%) 0 ml EA NARE QIDPRN PRN PRN Reason: Nasal Congestion Throat Lozenges (Cepastat Lozenges) 1 jay PO Q2H PRN PRN Reason: Sore Throat
--- NOTE | 2018-08-05 10:59 | PRG ---
DATE OF SERVICE: 08/05/2018 SUBJECTIVE: A 48-year-old male with end-stage renal disease, on maintenance hemodialysis Wednesday, , and Wednesday, admitted due to worsening shortness of breath and hypoxemia, which was felt to be due to fluid overload. The patient received additional hemodialysis with improvement of symptoms. He also is on antibiotics for possible pneumonia given history of fever and chills. He reports feeling better, but admitted to exertional dyspnea. He has been afebrile since hospitalization and cough is improved. OBJECTIVE: VITAL SIGNS: Temperature 97.8, pulse 106, respiratory rate 20, SpO2 of 97% on room air, and blood pressure is 127/76. GENERAL: Chronically ill-looking male, in no distress. Afebrile. Anicteric. Acyanotic. HEENT: Normocephalic and atraumatic. Oral mucosa is moist. CARDIOVASCULAR: Regular rhythm and rate with normal heart sounds. The patient is tachycardic. RESPIRATORY: Good air entry bilateral with no obvious crackle or rhonchi or use of accessory muscles. GI: Full, soft, nontender, and nondistended with normal bowel sounds. EXTREMITIES: Grossly normal looking, atraumatic with no obvious edema or erythema. Distal pulses are palpable. NEUROLOGIC: Conscious and alert and oriented x3 with appropriate mental status. The patient is ambulant with a walker. DIAGNOSTIC DATA: CBC showed WBC count of 5.2, hemoglobin of 9.1, platelet of 53. BMP showed sodium 134, potassium 3.9, chloride 97, CO2 of 26, BUN 25, creatinine 4.25, glucose 104, and calcium 9.3. ASSESSMENT AND PLAN: 1. End-stage renal disease, on maintenance hemodialysis Wednesday, , and Wednesday. The patient had dialysis yesterday. 2. Volume status and electrolytes are acceptable. There is no need for hemodialysis today. We will plan for hemodialysis tomorrow in line with his outpatient dialysis regimen. 3. History of orthostatic hypotension, improved with prednisone and Florinef. We will continue the same. 4. Presumed pneumonia. Antibiotics as per primary attending. The patient remained afebrile. 5. Shortness of breath. [place] to be due to pulmonary congestion. Resolved with dialysis. 6. Acute on chronic heart failure: Improved with dialysis with ultrafiltration. 7. The patient can be discharged from nephrology point of view to continue outpatient dialysis therapy. Job ID: [id number]
--- NOTE | 2018-08-05 11:50 | DIS ---
DATE OF ADMISSION: 08/02/2018 DATE OF DISCHARGE: 08/05/2018 DISCHARGE DISPOSITION: Home. PRIMARY DISCHARGE DIAGNOSES: 1. Acute respiratory failure with hypoxia, resolved. 2. Fluid overload, resolved. 3. Suspected sepsis from pneumonia, empirically treated. SECONDARY DISCHARGE DIAGNOSES: 1. Anemia of renal disease. 2. Antiphospholipid antibody syndrome. 3. Atrial fibrillation. 4. Coronary artery disease. 5. Chronically elevated troponin. 6. End-stage renal disease, on hemodialysis. 7. Gout. 8. Nonischemic cardiomyopathy. 9. Hypertension. 10. Pancytopenia. 11. Seizure disorder. 12. Chronic thrombocytopenia. 13. History of pulmonary embolism. PRIMARY PROCEDURE/OPERATION: Maintenance hemodialysis. RADIOLOGICAL INVESTIGATION: Chest x-ray, which showed mild volume overload. SIGNIFICANT LABORATORY DATA: WBC 5.2, hemoglobin 9.1, platelets 553. Sodium 134, potassium 3.9, creatinine 4.25. Urinalysis unremarkable. Blood culture was negative. DISCHARGE MEDICATIONS: 1. Omnicef 300 mg p.o. daily for 5 days. 2. Florastor 250 mg p.o. daily for 5 days. 3. Prednisone 10 mg p.o. daily. 4. Melatonin 6 mg p.o. at bedtime p.r.n. 5. Aspirin 81 mg daily. 6. Tylenol 650 mg q.4 hourly p.r.n. 7. Trileptal 600 mg b.i.d. 8. Florinef one tablet p.o. daily. CONTRAINDICATION: The patient is not on DAVID inhibitor or ARB because of renal failure and the patient is not on any beta john therapy because of the patient is getting hypotension and not tolerating those medications. CODE STATUS: Full code. INPATIENT PIGEON FANCIER: Dr. Westfall was consulted while in hospital. TEST RESULT PENDING ON DISCHARGE: None. ALLERGIES: DILANTIN, MIDAZOLAM. DISCHARGE PLAN: Posthospital, the patient will follow up with primary care physician, Dr. Jefferson, Dr. De La Rosa as instructed. HOSPITAL COURSE: A 48-year-old male with above-mentioned medical problem, who was admitted by a Dr. Mclaughlin. Please see his H and P for further details. On admission, he was having hypoxia. He was suspected for sepsis. He was suspected for pneumonia, but his chest x-ray was not consistent with real pneumonia. While in the hospital, he was empirically treated for pneumonia with vancomycin and Zosyn, and on discharge, we changed to Omnicef for 5 more days. The patient's culture showed 1 out of 2 coagulase-negative Staph aureus, which was contaminated. The patient was on room air by the time of discharge. He had maintenance hemodialysis while in the hospital. He was tolerating p.o. well. He was up to his normal level. The patient was hemodynamically stable today and he will follow up with primary care physician on an outpatient basis. Job ID: [id number]
[2018-08-05 16:16] VITALS: BP 126/84; TEMP 97.5
[2018-08-05] MEDS: predniSONE 5 MG TAB PO SCH (16:16)
--- NOTE | 2018-08-06 16:48 | EKG ---
Test Reason : Blood Pressure : / mmHG Vent. Rate : 102 BPM Atrial Rate : 102 BPM P-R Int : 140 ms QRS Dur : 108 ms QT Int : 426 ms P-R-T Axes : 054 004 063 degrees QTc Int : 555 ms Sinus tachycardia Possible Left atrial enlargement Possible Inferior infarct , age undetermined Prolonged QT Abnormal ECG Confirmed by GENOVEVA WAITE ([id number]), web content editor MAL KHALIL ([id number]) on 08/06/2018 4:47:06 PM Referred By: Confirmed By:GENOVEVA WAITE
== END 2018-08-05 17:32 | disposition home or self-care (01) | DRG 871 ==
LOC: ERS 17:37 → T4-A 22:25
PROVIDERS: ADMIT Hospitalist; ATTEND Hospitalist
PROC: 5A1D70Z Performance of Urinary Filtration, Intermittent, Less than 6 Hours Per Day (ICD-10-PCS; principal; 2018-08-03)
DX: A41.9 Sepsis, unspecified organism (principal); J18.9 Pneumonia, unspecified organism; N18.6 End stage renal disease; I50.23 Acute on chronic systolic (congestive) heart failure; I13.2 Hypertensive heart and chronic kidney disease with heart failure and with stage 5 chronic kidney disease, or end stage renal disease; D68.61 Antiphospholipid syndrome; I42.8 Other cardiomyopathies; D61.818 Other pancytopenia; D53.9 Nutritional anemia, unspecified; E87.6 Hypokalemia; G40.909 Epilepsy, unspecified, not intractable, without status epilepticus; M10.9 Gout, unspecified; I95.89 Other hypotension; D63.1 Anemia in chronic kidney disease; I25.10 Atherosclerotic heart disease of native coronary artery without angina pectoris; Z88.8 Allergy status to other drugs, medicaments and biological substances; Z79.01 Long term (current) use of anticoagulants; Z86.711 Personal history of pulmonary embolism; Z86.718 Personal history of other venous thrombosis and embolism; Z79.82 Long term (current) use of aspirin; Z79.899 Other long term (current) drug therapy; Z79.52 Long term (current) use of systemic steroids; Z99.2 Dependence on renal dialysis; Y95 Nosocomial condition
CPT/HCPCS: 36415; 71045; 80048; 80053; 80202; 81001; 82553; 83605; 83880; 84484; 85025; 87040; 87149; 93005; 94640; 96365; 96367; 96375; J1644; J1720; J1956; J2543; J3370; J3490; J7512; J7620; Q5105

== ENCOUNTER 2018-08-23 09:34 | Outpatient (CLI) | payer MEDICARE ==
--- NOTE | 2018-08-23 11:00 | RAD ---
PA AND LATERAL CHEST: 08/23/18 HISTORY: Dyspnea. COMPARISON: 08/02/18 exam. The heart size is within normal limits. Right sided Hemosplit catheter, pacer and internal defibrilla tor device are again demonstrated. The bibasilar lung markings shows some slight improvement as comp ared to the prior exam. IMPRESSION: Improving perihilar and bibasilar interstitial lung change as compared to the prior study. Some of th is could indicate resolving edema. Some of these changes could just be chronic in nature in this nick ent. POS: TPC
== END 2018-08-23 09:35 | disposition home or self-care (01) ==
LOC: RAD 09:34
PROVIDERS: ATTEND Internal Medicine Critical Care Medicine
DX: R06.00 Dyspnea, unspecified (principal)
CPT/HCPCS: 71046

== ENCOUNTER 2018-10-28 05:50 | Inpatient (IN) | payer MEDICARE ==
[2018-10-28 06:56] LABS: Hemoglobin 10.8 g/dL (14.0-18.0); Mean Corpuscular HGB CONC 32.9 g/dL (32.0-36.0); Mean Corpuscular Hemoglobin 31.2 pg (27.0-31.0); Mean Corpuscular Volume 94.7 fL (78.0-98.0); Mean Platelet Volume 10.7 fL (7.4-10.4); Platelet Count 26 thou/uL (130-400); RBC Distribution Width 13.7 % (11.5-14.5); Red Blood Cell (RBC) Count 3.48 mill/uL (4.70-6.10); White Blood Cell (WBC) Count 6.4 thou/uL (4.8-10.8)
[2018-10-28 06:59] LABS: ALT (SGPT) 41 U/L (8-55); AST (SGOT) 55 U/L (5-34); Albumin 3.7 g/dL (3.5-5.0); Alkaline Phosphatase 143 U/L (40-150); Anion Gap 15 mmol/L (10-20); BUN (Urea Nitrogen) 16 mg/dL (8.9-20.6); Bilirubin, Total 1.4 mg/dL (0.2-1.2); Calc. Creatinine Clearance 0 mL/min (70-130); Calcium 9.5 mg/dL (7.8-10.44); Carbon Dioxide 27 mmol/L (22-29); Chloride 97 mmol/L (98-107); Estimated GFR-MDRD 28; Globulin 3.7 g/dL (2.4-3.5); Glucose 95 mg/dL (70-105); Lipase 11 U/L (8-78); Potassium 3.7 mmol/L (3.5-5.1); Protein, Total 7.4 g/dL (6.0-8.3); Sodium 135 mmol/L (136-145)
[2018-10-28 07:29] LABS: #Eosinphils 0.1 thou/uL (0.0-0.7); #Lymphocytes 0.7 thou/uL (1.20-3.40); #Monocytes 0.6 thou/uL (0.11-0.59); #Neutrophils 5.1 thou/uL (1.40-6.50); %Basophils 0.2 % (0.0-1.0); %Eosinophils 0.9 % (0.0-10.0); %Lymphocytes 10.4 % (21.0-51.0); %Monocytes 8.5 % (0.0-10.0); %Neutrophils 80.1 % (42.0-75.0); Hypochromia SLIGHT = 6-15 cells (100X) (0-5/hpf); Large Platelets SLIGHT; MDiff Complete? YES; Platelet Morphology Comment Appears Decreased; Polychromasia SLIGHT = 2-3 cells (100X) (0-2/hpf); Reflex for Review?? YES
[2018-10-28] MEDS ORDERED: Ondansetron ODT 4 MG TAB SL PRN (08:00)
[2018-10-28] MEDS ORDERED: Ondansetron PF 4 MG/2 ML Vial IVP PRN ×2 (08:00→12:44)
--- NOTE | 2018-10-28 08:02 | CT ---
CT ABDOMEN AND PELVIS WITH IV CONTRAST: Date: 10/28/18 PROVIDED CLINICAL HISTORY: Left lower quadrant and epigastric abdominal pain with fever. FINDINGS: Comparison made with the study dated 06/05/18. There are extensive multifocal ground-glass opacities involving the visualized portions of primarily each lower lobe. There are multifocal calcified pleural plaques/nodules posteriorly. There is a parti ally visualized small right pleural effusion. There is heterogeneous attenuation involving the left hepatic lobe. The left portal vein peripheral b ranches are not definitely opacified. This could be on the basis of phase of contrast being suboptima l within the portal venous system. Portal vein occlusion is not excluded. Heterogeneous attenuation i nvolves the spleen without focal abnormality. Stable appearance to the left kidney and previously aura cribed left perinephric hematoma. The pancreas, adrenal glands, and right kidney demonstrate no signi ficant abnormality. IVC filter is again seen, without opacification of the IVC. Anterior body wall co llaterals are demonstrated, which may reflect thrombosis related to the IVC filter. There is no evidence for bowel obstruction. There is no evidence for free intraperitoneal air. There is a small amount of free fluid present within the pelvis. The osseous structures demonstrate no concerning lytic or blastic lesions. IMPRESSION: 1. Bibasilar lower lobe ground-glass opacity which may reflect infection, inflammation, edema, or he morrhage. 2. Small right pleural effusion. 3. Heterogeneous attenuation involving portions of the liver, possibly on the basis of vascular abno rmality such as portal vein occlusion. Other etiologies are possible. Follow-up is recommended. 4. 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 5. Small amount of free intraperitoneal fluid, the etiology and significance of which are not certai n. POS: OFF
[2018-10-28] MEDS ORDERED: Fentanyl 100 MCG/2 ML VIAL ONE (08:18)
[2018-10-28] MEDS ORDERED: Ondansetron PF 4 MG/2 ML Vial ONE (08:18)
[2018-10-28 10:32] LABS: HBSAg Index 0.34 S/CO (0-0.99); Hep B Surf Ag Non-Reactive S/CO (NonReactive)
[2018-10-28] MEDS ORDERED: Melatonin 3 MG TAB PO PRN (12:44)
[2018-10-28] MEDS ORDERED: Bisacodyl 10 MG SUPP PR PRN (12:44)
[2018-10-28] MEDS ORDERED: HYDROcodone/Acetaminophen 5/325 mg Tablet PO PRN (12:44)
[2018-10-28] MEDS ORDERED: Acetaminophen 325 MG TAB PO PRN (12:44)
[2018-10-28] MEDS: HYDROcodone/Acetaminophen 10/325 mg Tablet PO PRN ×2 (13:02→21:02)
[2018-10-28] MEDS ORDERED: ISOVUE-370 76%-LOCM 1 ML ONE (13:30)
[2018-10-28] MEDS ORDERED: Morphine 2 MG/ML SYRINGE SLOW IVP PRN (14:44)
--- NOTE | 2018-10-28 16:08 | RAD ---
TWO VIEWS CHEST: Comparison: 03-26-18, 08-23-18 History: Congestion and pulmonary infiltrate. FINDINGS: Two views of the chest shows an enlarged but stable cardiomediastinal silhouette. The pacemaker is un changed in position. The dialysis catheter is unchanged in position. Increased interstitial markings are seen in the lung bases, unchanged. No superimposed airspace opacities are seen. IMPRESSION: Stable exam. POS: TPC
--- NOTE | 2018-10-28 16:08 | HP ---
REASON FOR ADMISSION: Volume overload with CHF exacerbation, left quadrant upper and lower abdominal pain, nausea, and vomiting. HISTORY OF PRESENTING ILLNESS: No complaints of chest pain or palpitation. The patient states he is getting short of breath on minimal exertion. He ambulates very minimally at home. He has also developed orthopnea. He has cough, which is mostly dry from last 2 weeks. He had his hemodialysis yesterday per patient. PAST MEDICAL AND SURGICAL HISTORY: History of end-stage renal disease on hemodialysis, history of seizure disorder with prior brain surgery, hypotension on fludrocortisone, history of CHF with the ejection fraction of 30% to 35% based on echo done in May 2018, prior history of atrial fibrillation/flutter, history of antiphospholipid antibody syndrome, chronic thrombocytopenia, anxiety, depression, prior cardiac cath, history of IVC filter, prior history of cardioversion for atrial fibrillation/flutter, and AICD. CURRENT MEDICATIONS: The patient is on: 1. Carbamazepine 600 mg p.o. twice daily. 2. Fludrocortisone 0.1 mg p.o. daily. ALLERGIES: PHENYTOIN, VERSED, AND AMIODARONE. PERSONAL HISTORY: Does not abuse alcohol or drugs. No history of smoking. FAMILY HISTORY: Mother is living and has pacemaker. Father in his 60s. He has had history of coronary artery disease. CODE STATUS: Full. Power of privacy attorney is his . REVIEW OF SYSTEMS: CONSTITUTIONAL: Negative for weight loss or gain, ability to conduct usual activities. SKIN: Negative for rash, itching. EYES: Negative for double vision, pain. ENT/MOUTH: Negative for nose bleeding, neck stiffness, pain, tenderness. CARDIOVASCULAR: Negative for palpitations, dyspnea on exertion, orthopnea. RESPIRATORY: Negative for shortness of breath, wheezing, cough, hemoptysis, fever or night sweats. GASTROINTESTINAL: Negative for poor appetite, abdominal pain, heartburn, nausea , vomiting, constipation, or diarrhea. GENITOURINARY: Negative for urgency, frequency, dysuria, nocturia. MUSCULOSKELETAL: Negative for pain, swelling. NEUROLOGIC/PSYCHIATRIC: Negative for anxiety, depression. ALLERGY/IMMUNOLOGIC: Negative for skin rash, bleeding tendency. PHYSICAL EXAMINATION: GENERAL: The patient is a 48-year-old male, who is currently not in any acute distress. VITAL SIGNS: Blood pressure 130/86, pulse 90 per minute, respiratory rate 20 per minute, temperature 98.3 degrees Fahrenheit, and saturating 96% on room air. NECK: Supple. There is mildly elevated JVD. HEENT: Eyes; extraocular muscles intact. Pupils reacting to light. Oral cavity, mucous membranes are dry. No exudates or congestion. CARDIOVASCULAR: S1 and S2 heard. Regular rhythm. RESPIRATORY SYSTEM: Air entry 1+ bilateral. Scattered rales in the infrascapular area. ABDOMEN: Soft. Bowel sounds heard. There is mild tenderness in the left upper and lower quadrant area. No rigidity or guarding. Bowel sounds are heard. The patient has venous distention of abdominal veins all across in all 4 quadrants. He also has venous distention on anterior thighs as well bilaterally. EXTREMITIES: No calf tenderness. Peripheral pulses are 1+ bilateral. No ischemic ulcerations or gangrene. CENTRAL NERVOUS SYSTEM: No gross focal deficits noted. The patient moves all 4 extremities. PSYCHIATRIC SYSTEM: No obvious hallucinations or delusions. LABORATORY DATA: EKG done shows sinus rhythm. White count of 6.4, hemoglobin and hematocrit of 10 and 32, platelet count 26, MCV is 94 with 80% neutrophils. Serum bicarb is 27, BUN 16, creatinine 2.4. T bilirubin is 1.4, AST 55, ALT 41, alkaline phosphatase 143, albumin is 3.7. BNP is 2784. Lipase is 11. Chest x-ray done shows pulmonary vascular congestion. CT of the abdomen and pelvis with IV contrast done shows possible portal vein occlusion. There is possible IVC occlusion. Small amount of free intraperitoneal fluid is seen. No signs of bowel obstruction seen. No free intraperitoneal air. CLINICAL IMPRESSION AND PLAN: The patient will be admitted to telemetry for abdominal pain with history of IVC obstruction/portal vein thrombosis. He also has distention of veins on his anterior abdominal wall due to IVC occlusion. It is unclear if he has any back pressure on his intestinal vessels with pain. His pain is currently tolerable. The patient had scheduled dialysis yesterday, and we will consult Dr. De La Rosa. The patient has signs of volume overload with shortness of breath on minimal exertion and orthopnea as well. He has overall very complex situation at present. He has history of antiphospholipid antibody syndrome with chronic severe thrombocytopenia, which is complicating issues with anticoagulation. We will continue him on Florinef, melatonin, and Trileptal as before. The patient usually has bowel movements once in 4 to 5 days or so. He has not had any black stools per patient. We will obtain GI consultation with Dr. Fonseca for his opinion as well. The patient likely will be switched over to inpatient status in the morning if his abdominal pain does not improve. Job ID: [id number] [id number]
[2018-10-28] MEDS ORDERED: Mineral Oil ENEMA PR SCH (20:30)
[2018-10-28] MEDS ORDERED: Senokot S 8.6-50 MG TAB PO SCH (21:00)
[2018-10-28] MEDS: OXcarbazepine 300 MG TAB PO SCH (21:02)
--- NOTE | 2018-10-29 03:38 | CON ---
DATE OF CONSULTATION: 10/28/2018 REASON FOR CONSULTATION: Portal vein thrombosis, left lower quadrant abdominal pain. CONSULTING PHYSICIAN: Gladys Coffman MD HISTORY OF PRESENT ILLNESS: The patient is a 48-year-old male with past medical history of hypertension, gout, antiphospholipid syndrome with recurrent DVTs and pulmonary embolism, end-stage renal disease, on hemodialysis, atrial fibrillation, seizure disorder, anemia of chronic kidney disease, and coronary artery disease, presenting with increased abdominal pain. He states that he was in his usual state of health (does have chronic pain at baseline) until yesterday afternoon after eating a bowl of cherries at which point, he experienced acute onset of nausea, vomiting, and increased abdominal pain. The pain was generalized to the entire abdomen, but worse primarily in the left lower quadrant and characterized as a sharp/stabbing type pain, is intermittent, radiates to the entire abdomen and reaches a severity of "a lot of pain." The pain is worse with increased coughing, increased physical activity and straining to have a bowel movement, better with inactivity. Upon questioning the patient, he states that he has been having 1 solid bowel movement every 2-3 days ([place] 1) with increased straining and pressure to the abdomen to facilitate defecation. Per the conversation with him and his , she states that has had this episode of pain in the past, which is what ultimately led to his perinephric hematoma and is worried about a further recurrence at this time. He currently endorses increased nausea and vomiting with nonbloody emesis and subjective fevers over the time period of the course of this worsening pain. Currently, denies any hematemesis, melena, hematochezia, shaking chills, dysphagia, odynophagia, or weight loss. Of note, the patient is not currently on anticoagulation for his antiphospholipid syndrome given the presence of the perinephric hematoma and increased risk of bleeding at this region with administration. REVIEW OF SYSTEMS: A 10-category review of systems was obtained with all responses negative except for the pertinent positives as listed in HPI. PAST MEDICAL HISTORY: As per HPI. PAST SURGICAL HISTORY: AICD placement, IVC filter placement, cardioversion for atrial fibrillation, prior history of cardiac catheterization. FAMILY HISTORY: Denies any GI malignancies. SOCIAL HISTORY: Denies any tobacco, alcohol, or illicit drug use. OUTPATIENT MEDICATIONS: Carbamazepine 600 mg b.i.d. and fludrocortisone 0.1 mg daily. ALLERGIES: PHENYTOIN, VERSED, AND AMIODARONE. PHYSICAL EXAMINATION: VITAL SIGNS: Temperature 98.9, pulse 90, blood pressure 122/70, respiratory rate 16, saturating 97% on room air. GENERAL: The patient is lying in bed, in mild distress, alert and oriented x4, although thought processes are somewhat slowed. HEENT: Normocephalic, atraumatic. NECK: Supple. No scleral icterus noted. CARDIOVASCULAR: Tachycardic rate but regular rhythm with no discernible murmurs, gallops, or rubs. RESPIRATORY: Clear to auscultation bilaterally with no discernible wheezes or rales. ABDOMEN: Normoactive bowel sounds. Soft, nontender, nondistended. EXTREMITIES: No cyanosis, clubbing, or edema. LABORATORY DATA: CBC with a white blood cell count of 6.4, hemoglobin 10.8, hematocrit 32.9, platelets 26. Chemistry with a sodium of 135, potassium 3.7, chloride 97, CO2 of 27, BUN 16, creatinine 2.49, glucose 95, AST 55, ALT 41, alkaline phosphatase 143, total bilirubin 1.4, albumin 3.7. BNP 2784. IMAGING DATA: CT of the abdomen and pelvis was obtained on October 28, 2018, which showed extensive multifocal ground-glass opacities in the bilateral lower lobes, but it also showed left portal vein branches that were not visualized during the examination concerning for portal vein thrombosis. The left perinephric hematoma was stable in terms of its size and character, and there were multiple clots seen within the IVC filter with collateral vessels consistent with IVC filter thrombosis. His last colonoscopy was performed in February 2013 which showed the presence of 2 cecal hyperplastic polyps in addition to 3 rectal hyperplastic polyps. No other abnormalities were seen during that examination. ASSESSMENT AND PLAN: The patient is a 48-year-old male with past medical history of hypertension, gout, antiphospholipid syndrome with deep vein thrombosis and pulmonary embolism, end-stage renal disease, on hemodialysis, atrial fibrillation, seizure disorder, anemia of chronic kidney disease, and coronary artery disease, presenting with acute onset of abdominal pain and possibility of venous thrombosis of the abdominal vasculature concerning for possible mesenteric ischemia. Abdominal pain: The patient is presenting with relatively acute onset of increased abdominal pain located in the generalized abdomen, but primarily within the left lower quadrant and per chart review, the left upper quadrant. The pain is characterized as a sharp/stabbing type sensation, is intermittent and only exacerbated with increased movements and coughing. Current labs are fairly unrevealing except for a BNP which shows a significantly elevated level concerning for CHF exacerbation. However, he is not currently on any anticoagulation secondary to the perinephric hematoma that has been evaluated in the past. With his history of antiphospholipid syndrome, he is at risk for clot formation relatively anywhere in the body, especially on low pressure/low flow zones like the portal venous system. However, with the acute onset of his pain, the character of the pain and the relatively normal physical exam findings (pain out of proportion to exam), it is strongly concerning for mesenteric ischemia. Differential could also include ischemic colitis, constipation, diverticulitis (less likely given CT findings) and/or GI neoplasm. RECOMMENDATIONS: 1. We would obtain a right upper quadrant ultrasound with a doppler to confirm the presence of venous thrombosis within the portal venous system. 2. We would administer mineral oil enema x1 in order to facilitate defecation and assist with constipation. 3. We would place the patient on MiraLAX daily for constipation as well as naloxegol 12.5 mg daily to reverse any opiate effects on the gut. 4. Pain control per primary team. 5. Given the fairly negative findings thus far, poor cardiac function and antiphospholipid syndrome, a repeat CT scan or CT angiography would be recommended for possible mesenteric ischemia and/or ischemic colitis. We will continue to follow. Please call with any questions. Job ID: [id number]
[2018-10-29 05:39] LABS: Hemoglobin 8.8 g/dL (14.0-18.0); Mean Corpuscular HGB CONC 31.4 g/dL (32.0-36.0); Mean Corpuscular Hemoglobin 29.9 pg (27.0-31.0); Mean Corpuscular Volume 95.3 fL (78.0-98.0); Mean Platelet Volume 10.8 fL (7.4-10.4); Platelet Count 20 thou/uL (130-400); RBC Distribution Width 13.5 % (11.5-14.5); Red Blood Cell (RBC) Count 2.95 mill/uL (4.70-6.10); White Blood Cell (WBC) Count 6.6 thou/uL (4.8-10.8)
[2018-10-29 06:02] LABS: Anion Gap 14 mmol/L (10-20); BUN (Urea Nitrogen) 30 mg/dL (8.9-20.6); BUN/Creatinine Ratio 8.13; Calc. Creatinine Clearance 34 mL/min (70-130); Calcium 8.5 mg/dL (7.8-10.44); Carbon Dioxide 25 mmol/L (22-29); Chloride 97 mmol/L (98-107); Estimated GFR-MDRD 18; Glucose 89 mg/dL (70-105); Phosphorus 5.1 mg/dL (2.3-4.7); Potassium 3.8 mmol/L (3.5-5.1); Sodium 132 mmol/L (136-145)
[2018-10-29 06:10] LABS: #Monocytes 0.8 thou/uL (0.11-0.59); #Neutrophils 4.8 thou/uL (1.40-6.50); %Basophils 0.1 % (0.0-1.0); %Eosinophils 0.7 % (0.0-10.0); %Lymphocytes 14.9 % (21.0-51.0); %Monocytes 11.4 % (0.0-10.0); %Neutrophils 72.9 % (42.0-75.0); Platelet Morphology Comment Appears Decreased
--- NOTE | 2018-10-29 07:30 | ULT ---
HEPATIC DOPPLER ULTRASOUND DOPPLER EVALUATION OF LIVER WITH COLOR FLOW AND SPECTRAL ANALYSIS: Date: 10/29/18 INDICATION: Evaluation of portal vein for thrombosis. FINDINGS: There is prominent size liver nearing 20 cm in length. Evidence of cholelithiasis, as well as gallbla dder wall thickening, 6-7 mm present. The common duct is nondilated at 3 mm. Davis's sign reported a s negative by [employer]. Doppler evaluation does reveal flow of the imaged main portal vein. Hepatic and splenic arterial wave forms are documented. Flow is documented within the hepatic veins, as well as the left and right port al vein branches. IMPRESSION: 1. No sonographic evidence of portal vein thrombus is confirmed. 2. Hepatomegaly. 3. Cholelithiasis and gallbladder wall prominence. Recommend clinical correlation in this regard. POS: DORIS
[2018-10-29] MEDS: Famotidine 20 MG TAB PO SCH (08:51)
[2018-10-29] MEDS: Polyethylene Glycol 3350 17 GM Packet PO SCH (08:52)
[2018-10-29] MEDS: Fludrocortisone Acetate 0.1 MG TAB PO SCH (08:52)
[2018-10-29] MEDS: Enoxaparin Sodium 30 MG/0.3 ML SYRINGE SC SCH (08:52)
[2018-10-29] MEDS: OXcarbazepine 300 MG TAB PO SCH ×2 (08:52→20:08)
[2018-10-29] MEDS ORDERED: Epoetin (ESRD) 20,000 UNITS/ML SC SCH (09:45)
--- NOTE | 2018-10-29 10:09 | PRG ---
DATE OF SERVICE: 10/29/2018 HISTORY OF PRESENT ILLNESS: Mr. Boo was admitted due to persistent nausea and vomiting. We are being consulted for his maintenance hemodialysis. I have scheduled him for dialysis today. This morning, he is feeling a little better. He has also been seen by Gastroenterology. Please note that the initial CT scan of the abdomen and pelvis done on October 28, 2018, showed bibasilar lower lobe ground- glass opacity, which may reflect fluid or inflammation. He has a finding of small right pleural effusion. IVC filter was also noted. Repeat ultrasound of the abdomen was done this morning, which showed no sonographic evidence of portal vein thrombosis. There was a finding of cholelithiasis and gallbladder wall prominence. There is also incidental finding of a hepatomegaly. Chest x-ray showed increased lung markings on the bases of the lungs. There is no evidence of overt CHF. We are following this patient for his maintenance hemodialysis. REVIEW OF SYSTEMS: Positive for nausea and vomiting. No abdominal pain. No chest pain. No overt shortness of breath per se, but usually on exertion, he will occasionally develop shortness of breath. No fever or chills. No diarrhea. No constipation. No productive cough. Appetite and energy level are fair. No headache. No syncopal episode. MEDICATIONS: Include: 1. Trileptal 600 mg p.o. b.i.d. 2. Melatonin 6 mg at bedtime. 3. Florinef i tab daily. 4. Tylenol p.r.n. ACTIVE MEDICATIONS: Now include: 1. Lovenox 30 mg subcu daily. 2. Florinef 0.1 mg daily. 3. Hydrocodone 5/325 q.4 p.r.n. 4. Trileptal 600 mg p.o. b.i.d. ALLERGIES: INCLUDE PHENYTOIN, VERSED, AND AMIODARONE. TRAUMA: None. IMMUNIZATION: Up-to-date. HOSPITALIZATIONS: Please see past medical history. PAST MEDICAL HISTORY: 1. The patient has ESRD and currently on maintenance hemodialysis. 2. Seizure disorder. 3. Status post CHF. 4. Status post renal bleed. 5. Gout. 6. Chronic systolic dysfunction. 7. Chronic hypotension. 8. Antiphospholipid antibody syndrome. 9. Status post DVT. 10. Status post PE. 11. History of chronic thrombocytopenia. PAST SURGICAL HISTORY: Status post craniotomy for persistent seizures, status post IVC filter placement, status post cardiac cath, status post cuffed dialysis catheter placement, status post AV fistula placement. SOCIAL HISTORY: The patient lives in [place], , several children. He lives at home. Currently, no smoking, no alcohol intake. Sedentary lifestyle. FAMILY HISTORY: No family history of ESRD. PHYSICAL EXAMINATION: VITAL SIGNS: Blood pressure is 154/74, heart rate 95, respiratory rate 20, temperature 99.6, and pulse ox 94%. GENERAL: He is noted to be awake, comfortable, not in distress. SKIN: Adequate turgor. HEENT: He has slightly pale conjunctivae. Anicteric sclerae. NECK: No neck mass. No carotid bruits. No JVD. CHEST: No deformities. LUNGS: Clear breath sounds. No wheezing. No crackles. HEART: Normal sinus rhythm. No murmurs. No gallops. No rubs. ABDOMEN: Globular, soft, nontender. No masses. EXTREMITIES: No edema. No deformities. NEUROLOGIC: Awake, oriented to 3 spheres. Moving all extremities. No tremors. No asterixis. No ataxia. LABORATORY DATA: Laboratories of October 29, 2018: White count 6.6, hemoglobin 8.8, and platelet count 20,000. Sodium 132, potassium 3.8, chloride 97, carbon dioxide 25, BUN 30, creatinine 3.69, glucose 89, and calcium 8.5. ASSESSMENT AND PLAN: 1. End-stage renal disease, stable. We will continue current hemodialysis regimen of Wednesday, , and Wednesday. Fluid removal of 2 to 3 L of fluid as tolerated. No changes will be made with the current dialysis bath. 2. Anemia. Start Epogen 7500 units subcu every week. 3. Chronic thrombocytopenia. No heparin use with this dialysis. He is being followed up by Dr. Reed for his thrombocytopenia. If needed, we can consider Hematology consult if the platelet count will worsen. 4. Nausea and vomiting - no evidence of acute obstruction. GI is following. 5. Overall agree with current management. Job ID: [id number] MTDD
[2018-10-29] MEDS ORDERED: EPOETIN ALFA-EPBX (ESRD) 4,000 UNIT/ML VIAL SC SCH (12:00)
--- NOTE | 2018-10-29 12:22 | PDOC.HOSPP ---
- Subjective Subjective: abd pain is better but still there no nausea this am has not had bm yet but passing flatus no sob - Objective Vital Signs & Weight: Vital Signs (12 hours) Temp Pulse Resp BP BP Pulse Ox 10/29/18 11:38 98.5 F 92 20 113/71 92 L 10/29/18 07:10 99.6 F 95 20 154/74 H 94 L 10/29/18 04:00 98.0 F 84 16 123/74 92 L Weight Admit Weight 215 lb Weight 216 lb 9.6 oz I&O: 10/28/18 10/29/18 10/30/18 06:59 06:59 06:59 Intake Total 400 300 Output Total 0 Balance 400 300 Result Diagrams: 10/29/18 04:36 10/29/18 04:36 ROS - Review of Systems All systems: All other ROS were reviewed and found negative. - Medication Medications: Active Medications Generic Name Dose Route Start Last Admin Trade Name Freq PRN Reason Stop Dose Admin Acetaminophen 650 mg 10/28/18 12:44 10/29/18 08:53 Tylenol PO 650 mg Q4H PRN Administration Headache/Fever/Mild Pain (1-3) Hydrocodone Bitart/Acetaminophen 1 tab 10/28/18 12:44 10/28/18 21:02 [place] 10/325 PO 1 tab Q4H PRN Administration Severe Pain (7-10) Enoxaparin Sodium 30 mg 10/29/18 09:00 10/29/18 08:52 Lovenox SC 30 mg 0900 NEPTALI Administration Epoetin Nain-epbx 7,500 unit 10/29/18 12:00 10/29/18 11:40 Retacrit SC 7,500 unit Q7D NEPTALI Administration Famotidine 20 mg 10/29/18 09:00 10/29/18 08:51 Pepcid PO 20 mg DAILY NEPTALI Administration Fludrocortisone Acetate 0.1 mg 10/29/18 09:00 10/29/18 08:52 Florinef PO 0.1 mg DAILY NEPTALI Administration Miscellaneous Medication 12.5 mg 10/29/18 07:30 10/29/18 08:51 Movantik PO 12.5 mg DAILY-AC NEPTALI Administration Oxcarbazepine 600 mg 10/28/18 21:00 10/29/18 08:52 Trileptal PO 600 mg BID NEPTALI Administration Polyethylene Glycol 17 gm 10/29/18 09:00 10/29/18 08:52 Miralax PO 17 gm DAILY NEPTALI Administration - Exam NAD, awake alert Eye: PERRL, anicteric sclera ENT: no oropharyngeal lesions, moist mucosa Neck: supple, no JVD Heart: RRR, no murmur Respiratory: no wheezes, no rales Gastrointestinal: soft, non-distended, normal bowel sounds Extremities: no cyanosis, no edema Neurological: CN's grossly intact, no focal deficits Psychiatric: A&O x 3 Hosp A/P (1) Fluid overload Code(s): E87.70 - FLUID OVERLOAD, UNSPECIFIED Status: Acute (2) Anemia of renal disease Code(s): N18.9 - CHRONIC KIDNEY DISEASE, UNSPECIFIED; D63.1 - ANEMIA IN CHRONIC KIDNEY DISEASE Status: Chronic (3) Antiphospholipid syndrome Code(s): D68.61 - ANTIPHOSPHOLIPID SYNDROME Status: Chronic (4) Atrial fibrillation Code(s): I48.91 - UNSPECIFIED ATRIAL FIBRILLATION Status: Chronic Qualifiers: Atrial fibrillation type: paroxysmal (5) CAD (coronary artery disease) Code(s): I25.10 - ATHSCL HEART DISEASE OF [place] CORONARY ARTERY W/O ANG PCTRS Status: Chronic Qualifiers: Coronary Disease-Associated Artery/Lesion type: [place] artery [place] vs. transplanted heart: [place] heart (6) End stage renal disease on dialysis Code(s): N18.6 - END STAGE RENAL DISEASE; Z99.2 - DEPENDENCE ON RENAL DIALYSIS Status: Chronic (7) HTN (hypertension) Code(s): I10 - ESSENTIAL (PRIMARY) HYPERTENSION Status: Chronic Qualifiers: (8) Nonischemic cardiomyopathy Code(s): I42.8 - OTHER CARDIOMYOPATHIES Status: Chronic (9) Seizure disorder Code(s): G40.909 - EPILEPSY, UNSP, NOT INTRACTABLE, WITHOUT STATUS EPILEPTICUS Status: Chronic (10) Thrombocytopenia Code(s): D69.6 - THROMBOCYTOPENIA, UNSPECIFIED Status: Chronic (11) Abdominal pain Code(s): R10.9 - UNSPECIFIED ABDOMINAL PAIN Status: Acute Qualifiers: Abdominal location: left lower quadrant Qualified Code(s): R10.32 - Left lower quadrant pain - Plan usg abd shows no evidence of portal vein thrombosis has very low platelets, no evidence of bleeding at present for HD today is on movantik, miralax, florinef, trileptal, narco, epogen weekly shots hemostable abd pain could be constipation or mesenteric ischemia or venous engorgement from ivc thrombosis had fever of 102 this am, await cultures, no clear source at present, vitals are stable otherwise.
[2018-10-29 14:05] VITALS: BMI 25.7
--- NOTE | 2018-10-29 17:20 | PRG ---
DATE OF SERVICE: 10/29/2018 REASON FOR CONSULTATION: Left lower quadrant abdominal pain. SUBJECTIVE: Per the patient and per nursing staff, there were no acute events or problems overnight, although there was documented fever of 102.9 degrees Fahrenheit that has resolved with no further recurrences today. Upon evaluation of the patient today, he denies any nausea, vomiting, or abdominal pain. He has not had a bowel movement since the administration of MiraLAX, Movantik, and the mineral enema, but is passing flatus without difficulty. OBJECTIVE: VITAL SIGNS: Temperature 98.5, pulse 95, blood pressure 121/66, respiratory rate 20, saturating 92% on room air. GENERAL: The patient was sitting in the couch next to bedside, in no acute distress. Alert and oriented x3. CARDIOVASCULAR: Regular rate and rhythm. RESPIRATORY: Clear to auscultation bilaterally. ABDOMEN: Normoactive bowel sounds. Soft, nontender, nondistended. EXTREMITIES: No cyanosis, clubbing, or edema. LABORATORY DATA: CBC with a white blood cell count of 6.6, hemoglobin 8.8, hematocrit 28.8, platelets 20. Chemistry with a sodium of 132, potassium 3.8, chloride 97, CO2 of 25, BUN 30, creatinine 3.69, glucose 89. IMAGING DATA: Right upper quadrant ultrasound was obtained on October 29, 2018, which showed the presence of cholelithiasis without evidence of cholecystitis. The common bile duct was measured at 3 mm in diameter and normal flow was seen in the hepatic and portal venous systems without evidence of thrombosis. Upon conferring with the radiologist review of the CT scan from October 28, did not reveal any thromboses or stenoses within the celiac axis or superior mesenteric artery territories, although small vessels could not be evaluated due to lack of IV contrast. ASSESSMENT AND PLAN: The patient is a 48-year-old male with past medical history of hypertension, gout, antiphospholipid syndrome with deep vein thromboses and pulmonary emboli, end-stage renal disease, on hemodialysis; atrial fibrillation; seizure disorder; anemia of chronic kidney disease; and coronary artery disease, presenting with acute onset of left lower quadrant abdominal pain. Left lower quadrant abdominal pain. The patient initially presented with acute onset of increased pain primarily within the left lower quadrant, but generalized into the entire abdomen. He was ultimately admitted to the hospital for further evaluation and during this admission, he has been noted to have a fever, although a discernible origin has not been elucidated as of yet (although he does have ground-glass opacities on CT scan and his lungs, which could be indicative of infection). However, with more conservative management for constipation including MiraLAX administration, mineral enema, and administration of naloxegol, he has had complete resolution of his left lower quadrant abdominal pain. With the increased pain that the patient was experiencing on admission and a relatively normal physical exam finding, it was strongly concerning for mesenteric ischemia, but upon review of the CT scan on admission, there is no objective evidence that would support this diagnosis. At this time, the differential could include ischemic colitis (less likely), constipation, functional abdominal pain, diverticulitis (less likely given the CT scan findings). RECOMMENDATIONS: 1. Would continue bowel regimen for probable constipation including MiraLAX daily, naloxegol 12.5 mg daily. 2. Pain control per primary team. 3. Would continue to monitor the patient's clinical status. No endoscopic evaluation is indicated at this time. We will continue to follow. Please call with any questions. Job ID: [id number]
[2018-10-29] MEDS: HYDROcodone/Acetaminophen 10/325 mg Tablet PO PRN (20:08)
--- NOTE | 2018-10-29 21:36 | CT ---
CHEST CT SCAN WITHOUT IV CONTRAST: 10/29/18 HISTORY: Fever, infiltrate. Abnormal chest x-ray. COMPARISON: 10/28/18 chest x-ray, 10/28/18 CT scan of the abdomen and pelvis, aortic dissection protocol, 06/05/18. FINDINGS: Left ICD. Right dural lumen venous access catheter. Cardiomegaly with bilateral vascular congestion. Bilateral pleural effusions with some scattered pleu ral punctate calcific changes bilaterally, stable. There are extensive ground glass opacity changes throughout both right and left lower lobes as well as less marked changes in the lingula and both upp er lobes, possibilities include that of atypical pneumonia or pneumonitis, extensive underlying chron ic changes, edema. There are some minimally enlarged lymph nodes including a pretracheal node measur ing approximately 0.8 cm in short axis and a right paratracheal lymph node measuring approximately 1. 2 cm. Both hilar regions are somewhat prominent, possibly representing some associated mild adenopath y as well. There is no evidence of pericardial effusion. The visualized upper abdomen is stable. IMPRESSION: 1. Extensive bilateral primarily lower lobe nodular ground glass opacity changes with extension to the mid lung zones and upper lobes. Bilateral pleural effusions with some bilateral small punctate pleural calcifications. 2. Cardiomegaly. Minimal mediastinal adenopathy and possibly mild hilar adenopathy which could b e better evaluated with postcontrast study. 3. No evidence for confluent lobar pneumonia. POS: H
[2018-10-30 05:12] LABS: Anion Gap 13 mmol/L (10-20); BUN (Urea Nitrogen) 20 mg/dL (8.9-20.6); Calc. Creatinine Clearance 44 mL/min (70-130); Calcium 8.7 mg/dL (7.8-10.44); Carbon Dioxide 28 mmol/L (22-29); Chloride 100 mmol/L (98-107); Estimated GFR-MDRD 24; Glucose 89 mg/dL (70-105); Potassium 3.8 mmol/L (3.5-5.1); Sodium 137 mmol/L (136-145)
[2018-10-30 05:13] LABS: #Eosinphils 0.1 thou/uL (0.0-0.7); #Lymphocytes 0.7 thou/uL (1.20-3.40); #Monocytes 0.3 thou/uL (0.11-0.59); #Neutrophils 3.6 thou/uL (1.40-6.50); %Basophils 0.5 % (0.0-1.0); %Eosinophils 1.7 % (0.0-10.0); %Lymphocytes 15.6 % (21.0-51.0); %Neutrophils 75.2 % (42.0-75.0); Mean Corpuscular HGB CONC 31.9 g/dL (32.0-36.0); Mean Corpuscular Hemoglobin 30.6 pg (27.0-31.0); Mean Corpuscular Volume 95.9 fL (78.0-98.0); Mean Platelet Volume 11.2 fL (7.4-10.4); Platelet Count 24 thou/uL (130-400); RBC Distribution Width 13.4 % (11.5-14.5); Red Blood Cell (RBC) Count 2.95 mill/uL (4.70-6.10); White Blood Cell (WBC) Count 4.8 thou/uL (4.8-10.8)
[2018-10-30] MEDS: Guaifenesin DM 100-10/5 ML UDCUP PO PRN ×3 (06:18→21:11)
[2018-10-30] MEDS: HYDROcodone/Acetaminophen 10/325 mg Tablet PO PRN (06:32)
[2018-10-30] MEDS: Enoxaparin Sodium 30 MG/0.3 ML SYRINGE SC SCH (08:47)
[2018-10-30] MEDS: Famotidine 20 MG TAB PO SCH (08:47)
[2018-10-30] MEDS: Fludrocortisone Acetate 0.1 MG TAB PO SCH (08:48)
[2018-10-30] MEDS: Polyethylene Glycol 3350 17 GM Packet PO SCH (08:48)
[2018-10-30] MEDS: OXcarbazepine 300 MG TAB PO SCH ×2 (08:48→21:11)
--- NOTE | 2018-10-30 11:23 | PDOC.HOSPP ---
- Subjective Subjective: no abd pain this morning has not had a bm yet, is passing flatus was nauseous this morning, got zofran he had HD yesterday - Objective Vital Signs & Weight: Vital Signs (12 hours) Temp Pulse Resp BP BP Pulse Ox 10/30/18 07:10 92 L 10/30/18 07:05 98.4 F 118 H 20 112/56 L 92 L 10/30/18 04:00 97.8 F 99 22 H 135/83 95 10/30/18 00:00 98.8 F Weight Admit Weight 215 lb Weight 216 lb I&O: 10/29/18 10/30/18 10/31/18 06:59 06:59 06:59 Intake Total 400 1143 543 Output Total 0 Balance 400 1143 543 Result Diagrams: 10/30/18 04:37 10/30/18 04:37 ROS - Review of Systems All systems: All other ROS were reviewed and found negative. - Medication Medications: Active Medications Generic Name Dose Route Start Last Admin Trade Name Freq PRN Reason Stop Dose Admin Acetaminophen 650 mg 10/28/18 12:44 10/29/18 08:53 Tylenol PO 650 mg Q4H PRN Administration Headache/Fever/Mild Pain (1-3) Hydrocodone Bitart/Acetaminophen 1 tab 10/28/18 12:44 10/30/18 06:32 [place] 10/325 PO 1 tab Q4H PRN Administration Severe Pain (7-10) Enoxaparin Sodium 30 mg 10/29/18 09:00 10/30/18 08:47 Lovenox SC Not Given 0900 NEPTALI Epoetin Nain-epbx 7,500 unit 10/29/18 12:00 10/29/18 11:40 Retacrit SC 7,500 unit Q7D NEPTALI Administration Famotidine 20 mg 10/29/18 09:00 10/30/18 08:47 Pepcid PO 20 mg DAILY NEPTALI Administration Fludrocortisone Acetate 0.1 mg 10/29/18 09:00 10/30/18 08:48 Florinef PO 0.1 mg DAILY NEPTALI Administration Guaifenesin/Dextromethorphan 15 ml 10/28/18 12:44 10/30/18 10:48 Robitussin Dm PO 15 ml Q4H PRN Administration Cough Miscellaneous Medication 12.5 mg 10/29/18 07:30 10/30/18 08:47 Movantik PO 12.5 mg DAILY-AC NEPTALI Administration Ondansetron HCl 4 mg 10/28/18 12:44 10/30/18 06:33 Zofran IVP 4 mg Q6H PRN Administration Nausea/Vomiting Oxcarbazepine 600 mg 10/28/18 21:00 10/30/18 08:48 Trileptal PO 600 mg BID NEPTALI Administration Polyethylene Glycol 17 gm 10/29/18 09:00 10/30/18 08:48 Miralax PO 17 gm DAILY NEPTALI Administration - Exam NAD, awake alert Eye: PERRL, anicteric sclera ENT: no oropharyngeal lesions, moist mucosa Neck: supple, no JVD Heart: RRR, no murmur Respiratory: no wheezes, no rales Gastrointestinal: soft, non-tender, normal bowel sounds Extremities: no cyanosis, no edema Neurological: CN's grossly intact, no focal deficits Psychiatric: normal affect Hosp A/P (1) Fluid overload Code(s): E87.70 - FLUID OVERLOAD, UNSPECIFIED Status: Resolved (2) Anemia of renal disease Code(s): N18.9 - CHRONIC KIDNEY DISEASE, UNSPECIFIED; D63.1 - ANEMIA IN CHRONIC KIDNEY DISEASE Status: Chronic (3) Antiphospholipid syndrome Code(s): D68.61 - ANTIPHOSPHOLIPID SYNDROME Status: Chronic (4) Atrial fibrillation Code(s): I48.91 - UNSPECIFIED ATRIAL FIBRILLATION Status: Chronic Qualifiers: Atrial fibrillation type: paroxysmal (5) CAD (coronary artery disease) Code(s): I25.10 - ATHSCL HEART DISEASE OF [place] CORONARY ARTERY W/O ANG PCTRS Status: Chronic Qualifiers: Coronary Disease-Associated Artery/Lesion type: [place] artery [place] vs. transplanted heart: [place] heart (6) End stage renal disease on dialysis Code(s): N18.6 - END STAGE RENAL DISEASE; Z99.2 - DEPENDENCE ON RENAL DIALYSIS Status: Chronic (7) HTN (hypertension) Code(s): I10 - ESSENTIAL (PRIMARY) HYPERTENSION Status: Chronic Qualifiers: (8) Nonischemic cardiomyopathy Code(s): I42.8 - OTHER CARDIOMYOPATHIES Status: Chronic (9) Seizure disorder Code(s): G40.909 - EPILEPSY, UNSP, NOT INTRACTABLE, WITHOUT STATUS EPILEPTICUS Status: Chronic (10) Thrombocytopenia Code(s): D69.6 - THROMBOCYTOPENIA, UNSPECIFIED Status: Chronic (11) Abdominal pain Code(s): R10.9 - UNSPECIFIED ABDOMINAL PAIN Status: Acute Qualifiers: Abdominal location: left lower quadrant Qualified Code(s): R10.32 - Left lower quadrant pain Plan: resolving - Plan hemostable abd pain has resolved this am drinks nepro cans, not much of a eater on meals to ambulate with walking program as tolerated d/w over phone and have given updates is on movantik, miralax, florinef, trileptal July tx to medical floor
--- NOTE | 2018-10-30 11:25 | PRG ---
DATE OF SERVICE: 10/30/2018 SUBJECTIVE: Mr. Boo is a 48-year-old white male, who was admitted for abdominal pain and some nausea and vomiting. We are following up this patient for his maintenance hemodialysis. He did receive hemodialysis yesterday. Due to the low platelet, we have placed a hold on his heparin. No other complaints today. He has also been evaluated by GI. The patient does mention he still is constipated. Currently, endoscopic evaluation is not indicated at the present time. No other complaints today. OBJECTIVE: VITAL SIGNS: Blood pressure 112/56, heart rate 118, respiratory rate 20, temperature 98.4, and pulse ox 92%. GENERAL: He is awake, alert, comfortable, sitting, not in distress. SKIN: Adequate turgor. HEENT: He has a slightly pale conjunctivae. Anicteric sclerae. NECK: No neck mass. No carotid bruits. No JVD. CHEST: No deformities. LUNGS: Clear breath sounds. No wheezing. No crackles. HEART: Normal sinus rhythm. No murmurs. No gallops. No rubs. ABDOMEN: Globular, soft, nontender. No masses. EXTREMITIES: No edema. No deformities. MEDICATIONS: Medications of October 30, 2018, was reviewed. LABORATORY DATA: Laboratories of October 30, 2018; white count 4.8, hemoglobin 9, hematocrit 28.3. Sodium 137, potassium 3.8, chloride 100, carbon dioxide 28, BUN 20, creatinine 2.88, calcium 8.7, glucose 89. ASSESSMENT AND PLAN: 1. End-stage renal disease, stable, tolerated hemodialysis yesterday. Fluid removal only as tolerated. Using no heparin due to the low platelet count. 2. Chronic thrombocytopenia - followed by Hematology as an outpatient. 3. Abdominal pain - GI currently evaluating the patient. So far imaging showed no acute intracranial abnormality per se. 4. Anemia, continuing weekly Epogen with this patient. 5. Overall agree with current management. Job ID: [id number]
[2018-10-30] MEDS ORDERED: Heparin 1,000 UNITS/ML VIAL ONE (13:18)
--- NOTE | 2018-10-30 21:32 | PRG ---
DATE OF SERVICE: 10/30/2018 REASON FOR CONSULTATION: Left lower quadrant abdominal pain. SUBJECTIVE: Per nursing staff, the patient did well overnight with no acute events or problems. However, during the course of the day with treatment for his constipation, he started to state that he was not feeling well. He could not elaborate beyond that with no stated nausea, vomiting, fevers, chills, abdominal pain, dysphagia, odynophagia, dizziness. However, he still has not had a bowel movement since admission with continued administration of MiraLAX, Movantik ongoing. OBJECTIVE: VITAL SIGNS: Temperature 97.6, pulse 87, blood pressure 115/70, respiratory rate 20, saturating 100% on 2 L nasal cannula. GENERAL: The patient was lying in bed, in mild distress, alert and oriented x3. CARDIOVASCULAR: Regular rate and rhythm. RESPIRATORY: Clear to auscultation bilaterally. ABDOMEN: Normoactive bowel sounds. Soft, nontender, nondistended. EXTREMITIES: No cyanosis, clubbing, or edema. LABORATORY DATA: CBC with a white blood cell count of 4.8, hemoglobin 9.0, hematocrit 28.3, platelets 24. Chemistry with a sodium of 137, potassium 3.8, chloride 100, CO2 of 28, BUN 20, creatinine 2.88, glucose 89. IMAGING DATA: No current GI imaging is available for review. ASSESSMENT AND PLAN: The patient is a 48-year-old male with past medical history of hypertension, gout, antiphospholipid syndrome with deep vein thromboses and pulmonary emboli, end-stage renal disease, on hemodialysis, atrial fibrillation, seizure disorder, anemia of chronic kidney disease, and coronary artery disease, presenting with left lower quadrant abdominal pain. Left lower quadrant abdominal pain. The patient initially presented with increased left lower quadrant abdominal pain that generalized to the entire abdomen. However, during the course of this admission, he has had complete resolution of his abdominal pain and no pain elicited on physical exam and examination, both yesterday and today. However, he does state that he is not feeling well today, although cannot quantify exactly how or why. He also has not had a bowel movement since admission, which could contribute to both left lower quadrant abdominal pain and possibly due to his feelings of not feeling well today. He is currently receiving MiraLAX as well as naloxegol daily for his constipation with no results just yet. On review of his imaging during this admission, there was no objective evidence to support the diagnosis of mesenteric ischemia. Given the wide patency of both the celiac axis and the superior mesenteric artery. At this time, differential could include ischemic colitis (less likely), constipation, functional abdominal pain. RECOMMENDATIONS: 1. We would continue current bowel regimen. 2. Pain control per primary team three. 3. We will continue to monitor the patient's status. No endoscopic evaluation is indicated at this time. 4. If the patient does have a bowel movement and with improvement in his symptoms, we will consider discharge at that point with followup in the GI Clinic as an outpatient. Otherwise, we will continue to follow. Please call with any questions. Job ID: [id number]
[2018-10-31] MEDS: OXcarbazepine 300 MG TAB PO SCH (09:03)
[2018-10-31] MEDS: Fludrocortisone Acetate 0.1 MG TAB PO SCH (09:03)
[2018-10-31] MEDS: Enoxaparin Sodium 30 MG/0.3 ML SYRINGE SC SCH (09:04)
[2018-10-31] MEDS: Polyethylene Glycol 3350 17 GM Packet PO SCH (09:04)
[2018-10-31] MEDS: Famotidine 20 MG TAB PO SCH (09:04)
--- NOTE | 2018-10-31 09:43 | PRG ---
DATE OF SERVICE: 10/31/2018 SUBJECTIVE: Mr. Boo is a 48-year-old white male, who was initially admitted for abdominal discomfort with some nausea. GI has evaluated him. He has taken his regular diet and he is feeling much better. He tolerated the said breakfast this morning. He has had no other complaints. He denies any chest pain or shortness of breath. OBJECTIVE: VITAL SIGNS: Blood pressure is noted at 119/72, heart rate 89, respiratory rate 20, temperature 98, and pulse ox 97%. GENERAL: Noted to be awake, alert, supine, comfortable, not in distress. SKIN: Adequate turgor. HEENT: He has slightly pale conjunctivae. Anicteric sclerae. NECK: No neck mass. No carotid bruits. No JVD. CHEST: No deformities. LUNGS: Clear breath sounds. HEART: Normal sinus rhythm. No murmur. No gallops. No rubs. ABDOMEN: Globular, soft, and nontender. No masses. EXTREMITIES: No edema. No deformities. MEDICATIONS: Medications of October 31, 2018, was reviewed. LABORATORY DATA: laboratories of October 30, 2018, was reviewed. ASSESSMENT AND PLAN: 1. End-stage renal disease, stable. We will continue current Wednesday, , and Wednesday hemodialysis. Fluid removal only as tolerated. 2. Thrombocytopenia - holding heparin with dialysis. He is followed by Hematology for this chronic thrombocytopenia. 3. Abdominal pain/nausea and vomiting - resolved. Tolerating his current p.o. GI is following. Overall, agree with current management. Job ID: [id number]
[2018-10-31 10:52] LABS: #Eosinphils 0.1 thou/uL (0.0-0.7); #Lymphocytes 0.5 thou/uL (1.20-3.40); #Monocytes 0.3 thou/uL (0.11-0.59); #Neutrophils 2.5 thou/uL (1.40-6.50); %Eosinophils 3.1 % (0.0-10.0); %Lymphocytes 15.2 % (21.0-51.0); %Monocytes 9.5 % (0.0-10.0); %Neutrophils 72.3 % (42.0-75.0); Hemoglobin 7.6 g/dL (14.0-18.0); Mean Corpuscular HGB CONC 31.5 g/dL (32.0-36.0); Mean Corpuscular Hemoglobin 29.9 pg (27.0-31.0); Mean Corpuscular Volume 94.6 fL (78.0-98.0); Mean Platelet Volume 11.4 fL (7.4-10.4); Platelet Count 25 thou/uL (130-400); RBC Distribution Width 13.6 % (11.5-14.5); Red Blood Cell (RBC) Count 2.53 mill/uL (4.70-6.10); White Blood Cell (WBC) Count 3.4 thou/uL (4.8-10.8)
[2018-10-31 10:55] LABS: ALT (SGPT) 41 U/L (8-55); AST (SGOT) 37 U/L (5-34); Albumin 2.8 g/dL (3.5-5.0); Alkaline Phosphatase 293 U/L (40-150); Anion Gap 12 mmol/L (10-20); BUN (Urea Nitrogen) 33 mg/dL (8.9-20.6); Bilirubin, Total 0.7 mg/dL (0.2-1.2); Calc. Creatinine Clearance 33 mL/min (70-130); Calcium 8.4 mg/dL (7.8-10.44); Carbon Dioxide 28 mmol/L (22-29); Chloride 96 mmol/L (98-107); Estimated GFR-MDRD 17; Glucose 112 mg/dL (70-105); Potassium 3.8 mmol/L (3.5-5.1); Protein, Total 5.8 g/dL (6.0-8.3); Sodium 132 mmol/L (136-145)
--- NOTE | 2018-10-31 13:02 | PDOC.HOSPP ---
- Subjective Subjective: no bm yet, is passing flatus saying he amb in room and went out in hallway as well no abd pain or further episodes of coughing blood had one episode of coughing blood very small speck yest while in shower. - Objective Vital Signs & Weight: Vital Signs (12 hours) Temp Pulse Resp BP Pulse Ox 10/31/18 07:48 97.8 F 91 18 120/76 97 10/31/18 05:30 98 F 89 20 119/72 97 Weight Admit Weight 215 lb Weight 220 lb 12.8 oz I&O: 10/30/18 10/31/18 11/01/18 06:59 06:59 06:59 Intake Total 1143 777 Output Total 200 Balance 1143 777 -200 Result Diagrams: 10/31/18 09:46 10/31/18 09:46 ROS - Review of Systems All systems: All other ROS were reviewed and found negative. - Medication Medications: Active Medications Generic Name Dose Route Start Last Admin Trade Name Freq PRN Reason Stop Dose Admin Acetaminophen 650 mg 10/28/18 12:44 10/29/18 08:53 Tylenol PO 650 mg Q4H PRN Administration Headache/Fever/Mild Pain (1-3) Hydrocodone Bitart/Acetaminophen 1 tab 10/28/18 12:44 10/30/18 06:32 [place] 10/325 PO 1 tab Q4H PRN Administration Severe Pain (7-10) Enoxaparin Sodium 30 mg 10/29/18 09:00 10/31/18 09:04 Lovenox SC Not Given 0900 NEPTALI Epoetin Nain-epbx 7,500 unit 10/29/18 12:00 10/29/18 11:40 Retacrit SC 7,500 unit Q7D NEPTALI Administration Famotidine 20 mg 10/29/18 09:00 10/31/18 09:04 Pepcid PO 20 mg DAILY NEPTALI Administration Fludrocortisone Acetate 0.1 mg 10/29/18 09:00 10/31/18 09:03 Florinef PO 0.1 mg DAILY NEPTALI Administration Guaifenesin/Dextromethorphan 15 ml 10/28/18 12:44 10/30/18 21:11 Robitussin Dm PO 15 ml Q4H PRN Administration Cough Miscellaneous Medication 12.5 mg 10/29/18 07:30 10/31/18 09:04 Movantik PO 12.5 mg DAILY-AC NEPTALI Administration Ondansetron HCl 4 mg 10/28/18 12:44 10/30/18 06:33 Zofran IVP 4 mg Q6H PRN Administration Nausea/Vomiting Oxcarbazepine 600 mg 10/28/18 21:00 10/31/18 09:03 Trileptal PO 600 mg BID NEPTALI Administration Polyethylene Glycol 17 gm 10/29/18 09:00 10/31/18 09:04 Miralax PO 17 gm DAILY NEPTALI Administration - Exam NAD, awake alert Eye: PERRL, anicteric sclera ENT: no oropharyngeal lesions, dry oral mucosa Neck: supple, no JVD Heart: RRR, no murmur Respiratory: no wheezes, no rales Gastrointestinal: soft, non-tender, non-distended, normal bowel sounds Extremities: no clubbing, no edema Neurological: CN's grossly intact, no focal deficits Musculoskeletal: normal tone, normal strength Psychiatric: normal affect, A&O x 3 Hosp A/P (1) Fluid overload Code(s): E87.70 - FLUID OVERLOAD, UNSPECIFIED Status: Resolved (2) Anemia of renal disease Code(s): N18.9 - CHRONIC KIDNEY DISEASE, UNSPECIFIED; D63.1 - ANEMIA IN CHRONIC KIDNEY DISEASE Status: Chronic (3) Antiphospholipid syndrome Code(s): D68.61 - ANTIPHOSPHOLIPID SYNDROME Status: Chronic (4) Atrial fibrillation Code(s): I48.91 - UNSPECIFIED ATRIAL FIBRILLATION Status: Chronic Qualifiers: Atrial fibrillation type: paroxysmal (5) CAD (coronary artery disease) Code(s): I25.10 - ATHSCL HEART DISEASE OF [place] CORONARY ARTERY W/O ANG PCTRS Status: Chronic Qualifiers: Coronary Disease-Associated Artery/Lesion type: [place] artery [place] vs. transplanted heart: [place] heart (6) End stage renal disease on dialysis Code(s): N18.6 - END STAGE RENAL DISEASE; Z99.2 - DEPENDENCE ON RENAL DIALYSIS Status: Chronic (7) HTN (hypertension) Code(s): I10 - ESSENTIAL (PRIMARY) HYPERTENSION Status: Chronic Qualifiers: (8) Nonischemic cardiomyopathy Code(s): I42.8 - OTHER CARDIOMYOPATHIES Status: Chronic (9) Seizure disorder Code(s): G40.909 - EPILEPSY, UNSP, NOT INTRACTABLE, WITHOUT STATUS EPILEPTICUS Status: Chronic (10) Thrombocytopenia Code(s): D69.6 - THROMBOCYTOPENIA, UNSPECIFIED Status: Chronic (11) Abdominal pain Code(s): R10.9 - UNSPECIFIED ABDOMINAL PAIN Status: Acute Qualifiers: Abdominal location: left lower quadrant Qualified Code(s): R10.32 - Left lower quadrant pain - Plan no bm yet, may dc after bm anytime abd pain has resolved chronic low platelets, no milagro bleeding anywhere continue movantik, miralax, florinef, trileptal for HD tomorrow there are no medical beds for tx
--- NOTE | 2018-10-31 15:51 | CON ---
DATE OF CONSULTATION: 10/31/2018 This encompassed 45 minutes time, of that time, greater than 50% was spent with the patient and/or the patient's unit in the hospital. HISTORY OF PRESENT ILLNESS: The patient's called our office today asking that we see the patient in consultation regarding a cough. In my interaction with the patient, I find him to be a very poor historian as far as recent events. He says he was coughing at the time he was hospitalized. My guess is with increased dialysis. His coughing has dissipated. He apparently coughed up some blood. Dr. De La Rosa has stopped heparinizing the patient during dialysis because of extreme thrombocytopenia. PAST MEDICAL HISTORY: 1. End-stage renal disease, requiring dialysis. 2. Seizure disorder. 3. Systolic heart failure with EJ 30% to 35%. 4. Antiphospholipid antibody syndrome. 5. Chronic thrombocytopenia. 6. Atrial fibrillation/flutter. PAST SURGICAL HISTORY: 1. AICD placement. 2. Dialysis catheter placed. 3. Dialysis fistula placement. MEDICATIONS: Prior to admission, 1. Tegretol 600 mg twice daily. 2. Fludrocortisone 0.1 mg daily. ALLERGIES: PHENYTOIN, VERSED, AMIODARONE. SOCIAL HISTORY: Nonsmoker. Does not consume alcohol. FAMILY MEDICAL HISTORY: Remarkable for cardiac disease. REVIEW OF SYSTEMS: Very difficult to elicit because the patient is not a good historian. PHYSICAL EXAMINATION: VITAL SIGNS: Temperature 97.8, pulse 91, respirations 18, O2 saturation 97% on 2 L, blood pressure 120/76. GENERAL: The patient appears somewhat disheveled, did not cough during the entire time I was in the room with him. HEENT: Unremarkable. NECK: No adenopathy, JVD, or bruits. LUNGS: He has a few inspiratory crackles in the bases, best heard when he is sitting up and posteriorly. CARDIAC: S1 and S2. Regular. ABDOMEN: Soft, nontender. EXTREMITIES: No clubbing or cyanosis. He has a dialysis fistula just above his elbow on the left arm. He has an indwelling dialysis catheter tunnel in the right IJ. LABORATORY DATA: Sodium 132, potassium 3.8, chloride 96, CO2 of 28, BUN 33, creatinine 3.8, glucose 112. White blood cell count 3.4, hemoglobin 7.6, hematocrit 23.9, and platelet count 25. IMAGING STUDIES: I reviewed CT of the chest, it showed some interstitial changes at the bases, which I assume is probably pulmonary edema. ASSESSMENT: 1. Hemoptysis-probably multifactorial. He appeared to be fluid overloaded at the time he was admitted and with continued dialysis. This problem has gotten better. He had some hemoptysis at the time of admission, which is probably related to his thrombocytopenia and his pulmonary edema. 2. End-stage renal disease. 3. Other medical problems as listed above. PLAN: I do not really see anything to add to his current care. I will inform Dr. Olson about the patient's admission. Job ID: [id number]
[2018-10-31 16:54] VITALS: BP 134/83; TEMP 98.3
--- NOTE | 2018-10-31 18:11 | DIS ---
DATE OF ADMISSION: 10/29/2018 DATE OF DISCHARGE: 10/31/2018 DISCHARGE DISPOSITION: Home. PRIMARY DISCHARGE DIAGNOSES: Volume overload on admission, resolved with dialysis; abdominal pain in the left lower quadrant, resolved with resolution of constipation; chronic anemia; history of antiphospholipid syndrome; chronic thrombocytopenia, not on any anticoagulation; chronic atrial fibrillation, which is paroxysmal; coronary artery disease; end-stage renal disease, on hemodialysis on Wednesday, , and Saturdays; hypertension; nonischemic cardiomyopathy; and history of seizure disorder. PROCEDURES DONE DURING HOSPITALIZATION: CT abdomen and pelvis done showed chronic bilateral lower lobe ground-glass opacities, small right pleural effusion, possible portal vein occlusion, IVC filter with suggestion of associated IVC occlusion. CT chest without contrast done showed extensive bilateral lower lobe nodular ground-glass opacity changes with extension in the mid lung zone and upper lobes. No evidence of lobar pneumonia seen. Right upper quadrant ultrasound done showed no evidence of portal vein thrombus. Hepatomegaly, cholelithiasis, and gallbladder wall prominence were noted. Common duct was 3 mm. Blood cultures x2, no growth. H and H 7.6 and 23, platelet count 25, white count of 3.4, MCV 94. BUN 33, creatinine 3.8, serum bicarb 28, AST 37, ALT 41, alkaline phosphatase 293, total bilirubin 0.7, albumin 2.8, BNP was 2784, lipase 11. HBS antigen nonreactive. INPATIENT CONSULT: Dr. De La Rosa for Nephrology; Dr. Sandeep Fonseca for Gastroenterology; Dr. Ernst for Pulmonology. DISCHARGE MEDICATIONS: 1. Colace 100 mg twice daily. 2. MiraLAX 17 g daily. 3. Melatonin 6 mg p.o. at bedtime p.r.n. 4. Trileptal 600 mg p.o. twice daily. 5. Florinef 0.1 mg one tablet daily. ALLERGIES: TO PHENYTOIN, MIDAZOL[place], AND AMIODARONE. DISCHARGE PLAN: The patient to follow up with primary care physician in 1 week. He will also need a CBC done with his next hemodialysis to see if he needs transfusion. BRIEF COURSE DURING HOSPITALIZATION: The patient initially came to ER with complaints of shortness of breath on minimal exertion. He was essentially admitted for volume overload. The patient also admitted that he had abdominal pain in the left lower quadrant. He was constipated for nearly 3 days prior to arrival. The initial CAT scan was suggestive of possible portal vein thrombosis with IVC filter occlusion. He had enlarged veins on his abdominal wall as well. In view of this, the right upper quadrant ultrasound was obtained, which did not reveal any portal vein thrombus. He was evaluated by Dr. Sandeep Fonseca for Gastroenterology. The patient has chronic thrombocytopenia. He had one episode of hemoptysis with a small speck while he was showering on the 3rd evening. His platelet counts have been chronically low and at the time of discharge is 25. No other gross evidence of bleeding was seen. His CT chest shows chronic changes in his lung. He has had hemodialysis with volume removal and the patient has remained stable. He is ambulating in the hallway. This morning, the patient had digital evacuation along with rectal enema done, which has resolved his constipation. He was on Movantik along with MiraLAX during his stay. The patient needs to continue MiraLAX and Colace at home for intense bowel regimen. The patient also needs to drink more of Nepro as he is a very poor eater. I have given updates to his on the 4th and the plan. He is otherwise hemodynamically stable and will be shortly discharged home. Please see progress note for the day of discharge and [id number] documentation on [facility]. Job ID: [id number] MTDD
--- NOTE | 2018-11-02 01:36 | PQF ---
SAP Hydrate Control Tender Crystal Reports Winform ViewerROBJOEL ROMEO JR JOHANNE MCFARLAND MD [id number] CLINICAL DOCUMENTATION CLARIFICATION FORM: POST DISCHARGE Addendum to original discharge summary date: ____ Late entry note date: __ DATE: 11/02/2018 ATTN: JOHANNE MCFARLAND MD Please exercise your independent, professional judgment in responding to the clarification form. Clinical indicators are provided on the bottom of this form for your review Please check appropriate box(s) to clarify if the following diagnosis has been ruled in or ruled out: ac on chronic chf exacerbation with systolic dysfunction, class C, present on admission (CDI/Coding list diagnosis here) [ x ] Ruled in diagnosis [ ] Continue to treat [ ] Resolved [ ] Ruled out diagnosis [ ] Cannot rule out diagnosis [ ] Other diagnosis [ ] Unable to determine For continuity of documentation, please document condition throughout progress notes and discharge summary. Thank You. CLINICAL INDICATORS - SIGNS / SYMPTOMS / LABS -Volume overload with CHF exacerbation-H&P, pg1, 10/29/18, JOHANNE MCFARLAND MD -BNP: 2784.4H-Laboratory, 10/28 -pt states he is getting SOB on minimal exertion-H&P, pg1, 10/29/18, JOHANNE MCFARLAND MD -Systolic heart failure with EF 30% to 35%-Consulation, pg1, 10/31, Klever Mccallum MD RISK FACTORS -ESRD on dialysis-Hospital PN, pg5, 10/31, JOHANNE MCFARLAND MD -HTN, Non ischmic cardiomyopathy, Hospital PN, pg5, 10/30, JOHANNE MCFARLAND MD TREATMENTS Consult Dr. IVY-H&P, pg3, 10/29/18, JOHANNE MCFARLAND MD Dialysis treatment, 10/29 (This form is maintained as a part of the permanent medical record) SAP Hydrate Control Tender Crystal Reports Winform [id number]. All Rights Reserved Nahid Beauchamp [not provided] [not provided] MTDD
== END 2018-10-31 19:35 | disposition home or self-care (01) | DRG 291 ==
LOC: ERS 05:50 → 2NO 08:21 → OBSVTOIN 10-29 12:25
PROVIDERS: ADMIT Internal Medicine; ATTEND Internal Medicine
PROC: 5A1D70Z Performance of Urinary Filtration, Intermittent, Less than 6 Hours Per Day (ICD-10-PCS; principal; 2018-10-29)
DX: I13.0 Hypertensive heart and chronic kidney disease with heart failure and stage 1 through stage 4 chronic kidney disease, or unspecified chronic kidney disease (principal); N18.6 End stage renal disease; I50.23 Acute on chronic systolic (congestive) heart failure; D68.61 Antiphospholipid syndrome; E87.70 Fluid overload, unspecified; I42.8 Other cardiomyopathies; E11.22 Type 2 diabetes mellitus with diabetic chronic kidney disease; D69.6 Thrombocytopenia, unspecified; M10.9 Gout, unspecified; F41.9 Anxiety disorder, unspecified; F32.9 Major depressive disorder, single episode, unspecified; I48.2 Chronic atrial fibrillation; K59.00 Constipation, unspecified; I48.0 Paroxysmal atrial fibrillation; G40.909 Epilepsy, unspecified, not intractable, without status epilepticus; D63.1 Anemia in chronic kidney disease; Z99.2 Dependence on renal dialysis; Z95.810 Presence of automatic (implantable) cardiac defibrillator; Z88.8 Allergy status to other drugs, medicaments and biological substances; Z86.718 Personal history of other venous thrombosis and embolism; Z86.711 Personal history of pulmonary embolism
CPT/HCPCS: 36415; 36416; 71046; 71250; 74177; 76705; 80048; 80053; 80069; 83605; 83690; 83880; 85025; 85060; 87040; 87340; 90935; 96361; 96374; 96375; G0257; J1644; J1650; J2405; J3010; Q5105; Q9966

== ENCOUNTER 2018-11-01 18:23 | Inpatient (IN) | payer MEDICARE ==
[2018-11-01 19:05] LABS: #Lymphocytes 0.6 thou/uL (1.20-3.40); #Monocytes 0.6 thou/uL (0.11-0.59); #Neutrophils 6.1 thou/uL (1.40-6.50); %Eosinophils 0.2 % (0.0-10.0); %Lymphocytes 8.1 % (21.0-51.0); %Monocytes 8.1 % (0.0-10.0); %Neutrophils 83.6 % (42.0-75.0); Hemoglobin 9.1 g/dL (14.0-18.0); Mean Corpuscular HGB CONC 31.5 g/dL (32.0-36.0); Mean Corpuscular Hemoglobin 30.3 pg (27.0-31.0); Mean Corpuscular Volume 96.2 fL (78.0-98.0); Mean Platelet Volume 11.3 fL (7.4-10.4); Platelet Count 39 thou/uL (130-400); RBC Distribution Width 13.9 % (11.5-14.5); White Blood Cell (WBC) Count 7.3 thou/uL (4.8-10.8)
[2018-11-01 19:19] LABS: ALT (SGPT) 58 U/L (8-55); AST (SGOT) 92 U/L (5-34); Albumin 3.1 g/dL (3.5-5.0); Alkaline Phosphatase 329 U/L (40-150); Anion Gap 15 mmol/L (10-20); BUN (Urea Nitrogen) 11 mg/dL (8.9-20.6); Bilirubin, Total 1.5 mg/dL (0.2-1.2); CK (CPK) 22 U/L (30-200); Calc. Creatinine Clearance 0 mL/min (70-130); Calcium 9.1 mg/dL (7.8-10.44); Carbon Dioxide 24 mmol/L (22-29); Chloride 102 mmol/L (98-107); Estimated GFR-MDRD 48; Globulin 3.4 g/dL (2.4-3.5); Glucose 103 mg/dL (70-105); Potassium 3.5 mmol/L (3.5-5.1); Protein, Total 6.5 g/dL (6.0-8.3); Sodium 137 mmol/L (136-145)
--- NOTE | 2018-11-01 19:35 | RAD ---
PORTABLE CHEST: HISTORY: Cough. COMPARISON: 10/28/2018 FINDINGS: Borderline cardiomegaly with vascular engorgement again noted. Hazy infiltrates in both lower lung f ields again seen, not significantly changed. Large caliber central line overlies the SVC, and pacema ker leads are unchanged. IMPRESSION: Bibasilar infiltrates, which are described on CT scan of 10/29/2018, are noted. POS: AGW
[2018-11-01 19:37] LABS: CKMB 0.8 ng/mL (0-6.6)
--- NOTE | 2018-11-01 19:54 | ULT ---
Right upper quadrant ultrasound: 11/01/2018 COMPARISON: None HISTORY: Fever, cholelithiasis TECHNIQUE: Multiplanar grayscale sonographic imaging of the right upper quadrant obtained. FINDINGS: The pancreas is not well evaluated secondary to bowel gas. The hepatic parenchyma is heterogeneous and echogenic, suggesting steatosis. There is no gallbladder wall thickening or pericholecystic fluid. The risk assessment consultant reports a negative Davis's sign. Right kidney measures 9.8 cm in craniocaudal dimension. There is cortical thinning and increased echo genicity of the renal cortex suggesting renal medical disease. Small echogenic foci within the gallbladder suggest tiny stones. The common bile duct measures 2-3 mm, within normal limits. IMPRESSION: Small gallstones are noted with no sonographic evidence of cholecystitis or biliary dilat ation.
[2018-11-01] MEDS ORDERED: Fentanyl 100 MCG/2 ML VIAL ONE (20:33)
[2018-11-01] MEDS ORDERED: Lidocaine 1% w/Epinephrine 1:100K 20 ML VIAL ONE (21:22)
[2018-11-02] MEDS ORDERED: Acetaminophen 325 MG TAB PO PRN (00:17)
[2018-11-02] MEDS ORDERED: Ondansetron ODT 4 MG TAB PO PRN (00:17)
[2018-11-02] MEDS ORDERED: Acetaminophen 650 MG Suppository PR PRN ×2 (00:17→00:45)
[2018-11-02] MEDS ORDERED: Ondansetron PF 4 MG/2 ML Vial IVP PRN (00:17)
[2018-11-02] MEDS ORDERED: Vancomycin HCl 500 MG in Sodium Chloride 0.9% 100 ML IVPB SCH (00:45)
[2018-11-02] MEDS ORDERED: SODIUM CHLORIDE 0.9% IVPB SCH (00:45)
[2018-11-02] MEDS ORDERED: HOLD VANCOMYCIN FOR LEVEL >20 FS SCH (00:45)
[2018-11-02] MEDS ORDERED: Vancomycin HCl 750 MG in Sodium Chloride 0.9% 250 ML 250 ML IVPB SCH (00:45)
[2018-11-02] MEDS ORDERED: PIPERACILLIN IVPB SCH (00:45)
[2018-11-02] MEDS ORDERED: TAZOBACTAM IVPB SCH (00:45)
[2018-11-02] MEDS ORDERED: Vancomycin HCl 1 GM in Premix Bag 1 BAG IVPB SCH (00:45)
[2018-11-02] MEDS ORDERED: Vancomycin HCl 1.25 GM in Sodium Chloride 0.9% 250 ML 250 ML IVPB SCH (00:45)
[2018-11-02] MEDS: Acetaminophen 325 MG TAB PO PRN ×2 (01:08→07:59)
[2018-11-02] MEDS: Piperacillin/Tazobactam 3.375 GM in Sodium Chloride 0.9% 100 ML IVPB SCH ×2 (01:08→13:23)
--- NOTE | 2018-11-02 02:01 | HP ---
PRIMARY CARE PHYSICIAN: Dr. Jesus De La Rosa. CODE STATUS: Full code. TIME OF EVALUATION: 11:14 a.m. CHIEF COMPLAINT: Fever. HISTORY OF PRESENT ILLNESS: This is a 48-year-old male patient with past medical history of end-stage renal disease, history of DVTs, hypertension, AFib with pacemaker and defibrillator, seizure status post brain surgery for that reason. The patient came to the hospital after having an episode of fever of temperature 101.9 with no clear triggers, no alleviating factors, and abdominal pain. As of now, the patient has abdominal pain for the past 4 days, and at that time, he was admitted for that reason, was discharged yesterday. On arrival to dialysis, he was having fever and tachycardia. Symptoms started suddenly. No clear triggers. No alleviating factors. REVIEW OF SYSTEMS: CONSTITUTIONAL: The patient has fever, chills, and generalized weakness. RESPIRATORY: No cough, sputum production or shortness of breath. CARDIOVASCULAR: No chest pain or palpitation. GASTROINTESTINAL: No nausea. No vomiting. No diarrhea. The patient has abdominal pain, right upper quadrant. MARKET SURVEY REPRESENTATIVE: No dizziness, headache or feeling lightheaded. GENITOURINARY: No burning on urination. EXTREMITIES: No leg swelling. All other systems were reviewed and negative except for the findings mentioned above. PAST MEDICAL HISTORY: As mentioned in the HPI. FAMILY HISTORY:Reviewed and non contributory for current presentation. PAST SURGICAL HISTORY: The patient has heart cath, brain surgery for seizures, IVC filter, left arm AV graft, and right IJ PermCath. KNOWN ALLERGIES: Amiodarone, midazolam, phenytoin, and Versed. REPORTED MEDICATIONS: 1. Oxcarbazepine. 2. Fludrocortisone. 3. Benzonatate. 4. Colchicine. 5. Protonix. 6. Topiramate. 7. Vitamin D3. PHYSICAL EXAMINATION: VITAL SIGNS: On presentation, temperature 99.9, pain 10/10, heart rate 103, and respiratory rate 16. GENERAL: The patient is alert, oriented, no acute distress. HEENT: Eyes normal conjunctivae. Moist oral mucosa. Anicteric. No JVD. RESPIRATORY: Bilateral air entry. No rales. No wheezes. Symmetric expansion. CARDIOVASCULAR: Normal rate and regular rhythm. No murmurs. No gallop. No edema. ABDOMEN: Soft, mildly tender in the right upper quadrant. Normal bowel sounds. MUSCULOSKELETAL: Baseline range of motion and strength. SKIN: Warm and intact. No pallor. No rash. No redness. Capillary refill seems to be intact. NEUROLOGIC: No evidence of any new focal weakness. Cranial nerves seems to be intact. PSYCHIATRIC: The patient is in good mood. No anxiety. Optimal judgment. The patient has some underlying cognitive problem due to brain surgery. DIAGNOSTIC DATA: EKG was reviewed. The patient has sinus tachycardia at the rate of 104, prolonged QT. Chest x-ray showed bibasilar infiltrates, which are described on CT scan. Abdominal ultrasound, small gallstones are noted, no sonographic evidence of cholecystitis or biliary dilation. LABORATORY DATA: Reviewed. The patient has white count of 7.3; hemoglobin 9.1, which is chronic, in previous admission, hemoglobin was 8.8; platelet count 39. Chemistry; sodium 137, potassium 3.5, chloride 102, carbon dioxide 24, anion gap 15, BUN 11, creatinine 1.56, GFR 48, glucose 103, lactic acid 1.0, and calcium 9.1. Total bilirubin 1.5, AST 92, ALT 58, and alk phos 329. CK 22. Troponin 0.208, next one 0.280. Beta-natriuretic peptide 3958. Serum total protein 6.5, albumin 3.1 , globulin 3.4, and albumin/globulin ratio 0.9. ASSESSMENT AND PLAN: The patient will be placed in the hospital with following medical problems: 1. Sepsis. The patient has fever. The patient has tachycardia. The patient has a possible source of bilateral infiltrates. We will place the patient on broad-spectrum antibiotics and follow cultures. We will treat accordingly. Another source could be bacteremia given history of dialysis. 2. Possible bilateral pneumonia, was seen on the chest x-ray. Treatment as above. 3. End-stage renal disease, on hemodialysis, Wednesday, and Wednesday, has not missed any dialysis. Follow with Dr. De La Rosa. He will need Nephro evaluation for inpatient dialysis if the patient remains here. 4. History of seizures. Reconcile home medications. We will treat accordingly. 5. Mildly elevated LFTs. Right upper quadrant ultrasound did not show significant problems. It has been reported that Dr. Wagner has seen the patient and we will follow recommendations. 6. Ciy-LB-jvawsbkne myocardial infarction type 2 with mildly elevated troponin in the range of 0.208. However, this could be secondary to underlying kidney failure too. 7. History of atrial fibrillation. The patient has a pacemaker/defibrillator. This problem is chronic, seems to be stable. Reconcile home medications. 8. History of pulmonary embolisms, status post IVC filter. Monitor. 9. Deep venous thrombosis prophylaxis. Job ID: [id number] MTDD
--- NOTE | 2018-11-02 04:46 | CON ---
DATE OF CONSULTATION: HISTORY OF PRESENT ILLNESS: Mr. Hans Boo is a 48-year-old male who has antiphospholipid syndrome, hypercoagulable state, who began hemorrhaging from his left kidney requiring embolization by Dr. Shepherd. He suffered acute renal failure. I saw him and placed a temporary dialysis catheter that would not thread all the way into his femoral vein on right. I did another cath on the left, I threaded it slightly more so, but still there was evidence of occlusion. He had placement of a right IJ hemodialysis catheter. Eventually, he had placement of right arm fistula, but he never followed up with me and his fistula thrombosed. He was then referred by the dialysis unit to the [facility] has a left arm fistula. He has a hemodialysis catheter present for more than 6 months in his right IJ. The last few days he has complained of fever, malaise and cough. He has presented to the emergency room on 1 occasion and apparently found to have small gallstones, normal bile duct caliber and was seen by Dr. Fonseca on 10/28/2018. At that time, he has reported as having left lower quadrant abdominal pain. He has had positive hepatitis B serology. CT scan of the abdomen and pelvis October 28, 2018 showed bilateral lower lobe changes and there were portions of the portal vein on that CAT scan, not visualized, suggesting thrombosis. He has IVC filter with thrombosis and multiple collateral veins over his abdominal wall. He has had colonoscopy recently that reveals polyps. I was called by the ER stating his bilirubin is 1.5. Transaminases slightly elevated. There was concern for cholecystitis. Ultrasound reveals gallstones. Bile duct caliber of normal size. When I walked into the room to examine him tonight, his was not present. The patient denied having any abdominal pain. He states he could not give a history because of some brain surgery in the past and his poor memory. He, however, did not have any abdominal pain. The patient has cardiac history with AICD, cardiomyopathy of 30%, followed by Dr. Jefferson. He does not recall when he last saw her. I do not see any records of angiography in these hospital records. ALLERGIES: PHENYTOIN, MIDAZOLAM. SOCIAL HISTORY: Tobacco none. Alcohol none. MEDICATIONS: 1. MiraLAX. 2. Melatonin. 3. Trileptal. 4. Florinef. 5. Colace. PAST SURGICAL HISTORY: 1. Embolization, left kidney due to a hemorrhage. 2. Right arm fistula, multiple dialysis catheters. He currently has a right IJ cuffed dialysis catheter placed. 3. On 02/02/2018, I explored his left antecubital fossa and found that the vein was unsuitable for a fistula and then on 02/08/2018, he had a right arm fistula placed, outflow cephalic vein only, retrograde antecubital vein preserved. I saw him in February where actually pulled out his hemodialysis catheter and had to place a new one. PAST MEDICAL HISTORY: 1. Inferior vena cava filter, inferior vena cava occlusion, thrombus. 2. Hypercoagulable state. 3. Antiphospholipid syndrome. 4. Anticoagulation held due to complications where he bled into his left kidney requiring embolization. 5. Seizure disorder. 6. Hypertension. 7. Memory deficit. 8. End-stage renal disease, on maintenance dialysis, Wednesday, , Wednesday, dialyzed today, followed by Dr. De La Rosa. 9. Status post FLIGHT AGENT, left upper arm fistula placed in [place], date unknown. PHYSICAL EXAMINATION: GENERAL: This patient is communicative, although not a reliable historian. LUNGS: Clear to auscultation. Decreased base. He has a cough. CARDIAC: Regular rate and rhythm. Right IJ cuffed tunneled dialysis catheter. ABDOMEN: Soft, nontender, nondistended. Minimal tenderness in right upper quadrant, enlarged liver on exam. Collateral veins of abdominal wall. EXTREMITIES: Unremarkable. Left upper arm fistula good thrill and bruit consistent with recent ecchymosis. ASSESSMENT/PLAN: 1. End-stage renal disease, on maintenance dialysis. Dialysis access provided in [place]. We would recommend followup there. 2. Fevers with a senescent dialysis catheter. Plan removal at the bedside. I have discussed with the and Dr. De La Rosa and they agree and I will perform that tonight at the bedside. Ideally I would hope that we be able to use his left arm fistula for dialysis access and avoid another catheter. I can place another catheter, if necessary or his dialysis surgeon in [place] can do that. 3. Cardiomyopathy. 4. Automatic implantable cardioverter-defibrillator, the left subclavian vein. 5. Antiphospholipid syndrome with hypercoagulable state. Anticoagulation held due to complication of anticoagulation with hemorrhage in his left kidney requiring embolization and precipitating dialysis. 6. Seizure disorder. Job ID: [id number]
[2018-11-02] MEDS: Ondansetron PF 4 MG/2 ML Vial IVP PRN ×2 (08:10→13:28)
--- NOTE | 2018-11-02 08:38 | OP ---
DATE OF PROCEDURE: 11/01/2018 PREOPERATIVE DIAGNOSIS: 1. Senescent central line. 2. End-stage renal disease. 3. Fevers. POSTOPERATIVE DIAGNOSES: 1. Senescent central line. 2. End-stage renal disease. 3. Fevers. 4. Maturing left arm fistula placed in [place], status post [facility], Dr. Hernandez. PROCEDURES PERFORMED: Removal of right IJ cuffed tunneled dialysis catheter. ANESTHESIA: 1% Xylocaine with epinephrine. DESCRIPTION OF PROCEDURE: With the patient at bedside, the exit site of the right hemodialysis catheter was prepared with alcohol. Local anesthetic was infiltrated in the skin and subcutaneous tissue. Catheter and cuff were dissected free, excised, removing the catheter, hemostasis obtained with local pressure. The patient tolerated the procedure well. Job ID: [id number]
[2018-11-02] MEDS ORDERED: Epoetin (ESRD) 20,000 UNITS/ML SC SCH (09:00)
[2018-11-02] MEDS ORDERED: Enoxaparin Sodium 40 MG/0.4 ML SYRINGE SC SCH ×2 (09:00)
[2018-11-02] MEDS ORDERED: EPOETIN ALFA-EPBX (ESRD) 4,000 UNIT/ML VIAL SC SCH (09:30)
--- NOTE | 2018-11-02 09:36 | PRG ---
DATE OF SERVICE: 11/02/2018 SUBJECTIVE: Mr. Boo is a 48-year-old white male with ESRD and was readmitted due to fever and chills. While undergoing dialysis yesterday, he developed fever and chills. He was sent to the ER. He was admitted recently for an abdominal pain. The issue was there whether he may be having acute cholecystitis. Surgery re-evaluated this patient. The feeling is that he does not have cholecystitis. The source of the infection could be from his dialysis catheter. This was pulled out by Dr. Wagner. The plan is to give him antibiotics and get him dialysis catheter feed for the next 2 days. Previous attempt use of his AV fistula has not been successful. He may need another dialysis catheter. The patient is still having some nausea today. No complaints of chest pain or shortness of breath. OBJECTIVE: VITAL SIGNS: Blood pressure 138/83, heart rate 105, respiratory rate 16, temperature 98.6, and pulse ox 97%. GENERAL: Awake, alert, comfortable, not in distress. SKIN: Adequate turgor. HEENT: He has a slightly pale conjunctivae. Anicteric sclerae. NECK: No neck mass. No carotid bruits. No JVD. CHEST: No deformities. LUNGS: Decreased breath sounds. HEART: Normal sinus rhythm. No murmur. No gallops. No rubs. ABDOMEN: Globular, soft, and nontender. No masses. EXTREMITIES: No edema. No deformities. MEDICATIONS: Medications of November 02, 2018, was reviewed. LABORATORY DATA: Laboratories of November 01, 2018, showed sodium 137, potassium 3.5, chloride 102, carbon dioxide 24, BUN 11, and creatinine 1.56. AST 92, ALT 58. CK 22. Albumin 3.1. Troponin I 0.280. BNP 3958. Ultrasound of November 01, 2018, ultrasound of the abdomen shows small gallstones with no evidence of cholecystitis or biliary dilatation. Chest x-ray shows no overt CHF. ASSESSMENT AND PLAN: 1. End-stage renal disease, stable. No indication for any emergent hemodialysis. He did receive a full treatment yesterday. The plan is to resume dialysis once we have a dialysis access placed. 2. Fever. Empiric IV antibiotics. Possibility of line bacteremia is being considered. His dialysis catheter has been pulled out by his surgeon. 3. Anemia. Resume Epogen 7500 units subcu weekly. Overall, agree with current management. Recheck CBC and basic metabolic panel in a.m. Job ID: [id number]
--- NOTE | 2018-11-02 14:41 | PRG ---
DATE OF SERVICE: 11/02/2018 SUBJECTIVE: Hans Boo today complains of pain diffusely in his abdomen. The pain does not localize in his right upper quadrant. OBJECTIVE: LUNGS: Clear to auscultation. CARDIAC: Regular rate and rhythm without murmur or gallop. ABDOMEN: Soft, nondistended. Collateral veins of abdominal wall consistent with vena cava thrombus. Diffuse mild guarding to palpation, but no peritoneal signs. ASSESSMENT AND PLAN: 1. Suspect branch portal vein thrombosis per GI consultation and imaging recently. Hepatitis B by recent serology. 2. 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 3. Hepatomegaly. 4. Cardiomyopathy with defibrillator and coronary artery disease. 5. End-stage renal disease. 6. Fevers, probably due to Senescent hemodialysis catheter, which was removed yesterday. 7. Left upper arm fistula, placed in [place]. Past hospitalizations, late 2017, explored his left arm veins were inadequate in antecubital fossa and a right arm fistula formed, but this has since thrombosed. In [place], he had a left upper arm fistula formed, and he has had a percutaneous angioplasty already. He may need another dialysis catheter, but I have asked Dr. De La Rosa to try to use his fistula in left arm for dialysis access. Apparently, he has an appointment to see Dr. Hernandez and to do another fistulogram in the future. 8. Memory deficit. 9. The patient has cholelithiasis, but I do not think these are the cause of his problems. He has been seen by GI, Dr. Fonseca, recently in the last week and felt that some of his pain could be intestinal ischemia, although I cannot related to postprandial, but he is a very poor historian. Currently, I do not think any further workup for his gallbladder is necessary and if we suspect he is having discomfort or pain from his gallbladder, cholecystectomy could be undertaken, but risks would be increased. Common bile duct is normal. Liver function tests slightly elevated, probably due to congestive liver, due to cardiomyopathy. Job ID: [id number]
--- NOTE | 2018-11-02 17:04 | PDOC.HOSPP ---
- Subjective Encounter Date: 11/02/18 Encounter Time: 10:00 Subjective: Mr. Boo was seen today in follow-up of fever, and abdominal pain. He also says he has been coughing "almost constantly for the past few days". He notes some dyspnea when he is laying flat. He can not relate the abdominal pain to eating. - Objective Vital Signs & Weight: Vital Signs (12 hours) Temp Pulse Resp BP BP Pulse Ox 11/02/18 13:21 98.3 F 107 H 20 137/91 H 96 11/02/18 08:00 98.6 F 105 H 16 138/83 97 Weight Weight 204 lb 12.8 oz I&O: 11/01/18 11/02/18 11/03/18 06:59 06:59 06:59 Intake Total 110 Balance 110 Result Diagrams: 11/01/18 18:51 11/01/18 18:51 ROS - Medication Medications: Active Medications Generic Name Dose Route Start Last Admin Trade Name Freq PRN Reason Stop Dose Admin Acetaminophen 650 mg 11/02/18 00:45 11/02/18 07:59 Tylenol PO 650 mg Q4H PRN Administration Headache/Fever/Mild Pain (1-3) Piperacillin Sod/Tazobactam 100 mls @ 200 mls/hr 11/02/18 01:00 11/02/18 13: 23 Sod 3.375 gm/ Sodium Chloride IVPB 100 mls 0100,1300 NEPTALI Administration Ondansetron HCl 4 mg 11/02/18 00:45 11/02/18 13:28 Zofran IVP 4 mg Q6H PRN Administration Nausea/Vomiting - Exam Eye: PERRL, anicteric sclera Heart: RRR, no murmur, no gallops, no rubs Respiratory: no ronchi, rales (+ rales at both bases) Gastrointestinal: soft, non-distended, normal bowel sounds, no guarding, tender to palpation (+ right upper quandrant tenderness, + venous engorement on the abdominal wall) Extremities: no cyanosis, no clubbing, 2+ LE edema Hosp A/P (1) Fever Code(s): R50.9 - FEVER, UNSPECIFIED Status: Acute (2) Acute on chronic systolic heart failure, NYHA class 3 Code(s): I50.23 - ACUTE ON CHRONIC SYSTOLIC (CONGESTIVE) HEART FAILURE Status : Acute (3) Atrial fibrillation Code(s): I48.91 - UNSPECIFIED ATRIAL FIBRILLATION Status: Chronic Qualifiers: Atrial fibrillation type: paroxysmal (4) End stage renal disease on dialysis Code(s): N18.6 - END STAGE RENAL DISEASE; Z99.2 - DEPENDENCE ON RENAL DIALYSIS Status: Chronic (5) HTN (hypertension) Code(s): I10 - ESSENTIAL (PRIMARY) HYPERTENSION Status: Chronic Qualifiers: (6) Physical deconditioning Code(s): R53.81 - OTHER MALAISE Status: Chronic - Plan * Fever- discussed with Dr. Wagner. He suspects the temporary dialysis catheter to be the culprit. It has been in place for several months. This wwas removed last night. Will continue empiric antibiotics * Abdominal pain- Also discussed. I agree the patient is a poor historian, and his exam can be inconsistent. He has recently been evaluated by Gastroenterology , and I have reviewed those records and hospital stay. He does not relate his abdominal pain to eating, and does not andorse nausea or vomiting. Will continue to observe, and will hold off on the HIDA scan at this time. Should his symptoms worsen ( with regards to abdominal pain, then will consider pursuing further work-up. ) The elevation of the LFT's certainly could be the result of passive congestion of the liver from CHF. * Acute on chronic systolic heart failure- I suspect he is volume overloaded. He has a cough which is worse in the supine position, and he gives a history of orthopnea. Will have to defer fluid removal to Nephrology with dialysis * AFIB- his heart rate is a bit elevated- will observe * HTN- blood pressure is also slightly elevated- will continue his home medications and monitor the trend
[2018-11-02] MEDS: Morphine 2 MG/ML SYRINGE IVP PRN (20:58)
[2018-11-02] MEDS: OXcarbazepine 300 MG TAB PO SCH (20:59)
[2018-11-02] MEDS: Docusate 100 MG CAP PO SCH (20:59)
[2018-11-03] MEDS: Piperacillin/Tazobactam 3.375 GM in Sodium Chloride 0.9% 100 ML IVPB SCH ×2 (01:30→13:21)
[2018-11-03] MEDS: Morphine 2 MG/ML SYRINGE IVP PRN ×4 (04:58→21:49)
[2018-11-03 05:14] LABS: ALT (SGPT) 117 U/L (8-55); AST (SGOT) 184 U/L (5-34); Albumin 3.2 g/dL (3.5-5.0); Alkaline Phosphatase 333 U/L (40-150); Anion Gap 16 mmol/L (10-20); BUN (Urea Nitrogen) 27 mg/dL (8.9-20.6); Bilirubin, Direct 1.6 mg/dL (0.1-0.3); Calc. Creatinine Clearance 34 mL/min (70-130); Carbon Dioxide 26 mmol/L (22-29); Chloride 100 mmol/L (98-107); Estimated GFR-MDRD 19; Glucose 99 mg/dL (70-105); Potassium 3.9 mmol/L (3.5-5.1); Sodium 138 mmol/L (136-145)
[2018-11-03 05:21] LABS: #Neutrophils 10.6 thou/uL (1.40-6.50); %Basophils 0.1 % (0.0-1.0); %Eosinophils 0.2 % (0.0-10.0); %Lymphocytes 7.7 % (21.0-51.0); %Monocytes 7.7 % (0.0-10.0); %Neutrophils 84.3 % (42.0-75.0); Mean Corpuscular HGB CONC 32.3 g/dL (32.0-36.0); Mean Corpuscular Hemoglobin 30.3 pg (27.0-31.0); Mean Corpuscular Volume 93.7 fL (78.0-98.0); Mean Platelet Volume 12.1 fL (7.4-10.4); Platelet Count 42 thou/uL (130-400); Platelet Morphology Comment Appears Decreased; RBC Distribution Width 14.2 % (11.5-14.5); White Blood Cell (WBC) Count 12.6 thou/uL (4.8-10.8)
--- NOTE | 2018-11-03 08:36 | PRG ---
DATE OF SERVICE: 11/03/2018 SERVICE: Renal Medicine. SUBJECTIVE: Mr. Boo is a 48-year-old white male with ESRD, who was admitted for fever. The suspicion is that he may have a itph-lwpfopin-jesekfae infection. This was subsequently removed. He is on empiric IV antibiotics. Followup blood culture on November 01, 2018, no growth to date. There is a plan to place back the catheter and possible revision of the AV fistula. No other complaints today. He denies any nausea or vomiting this morning. OBJECTIVE: VITAL SIGNS: Blood pressure 138/81, heart rate 115, respiratory rate 22, temperature 99.1, and pulse ox 93%. GENERAL: Awake, alert, comfortable, not in distress. SKIN: Adequate turgor. HEENT: He has slightly pale conjunctivae. Anicteric sclerae. NECK: No neck mass. No carotid bruits. No JVD. CHEST: No deformities. LUNGS: Clear breath sounds. No wheezing. No crackles. HEART: Normal sinus rhythm. No murmurs, no gallops, no rubs. ABDOMEN: Globular, soft, nontender. No masses. EXTREMITIES: No edema. No deformities. MEDICATIONS: Medications of November 03, 2018, were reviewed. LABORATORY DATA: Laboratories of November 03, 2018; white count 12.6, hemoglobin 10. Sodium 138, potassium 3.9, chloride 100, carbon dioxide 26, BUN 27, creatinine 3.5, glucose 99, calcium 9, AST 184, ALT 117, albumin 3.2. ASSESSMENT AND PLAN: 1. End-stage renal disease, stable. We will initiate dialysis once the dialysis access is placed. He looks euvolemic today and the potassium is acceptable. 2. Anemia. Currently, on weekly Epogen. 3. Chronic thrombocytopenia-platelet noted at 42,000. Continue to observe. 4. Fever-dialysis catheter has been removed. This will now be changed today to a different new dialysis catheter. 5. Recheck basic metabolic profile and CBC in a.m. Job ID: [id number]
[2018-11-03 09:03] LABS: INR-International Normal Ratio 1.4; Prothrombin Time 17.3 SEC (12.0-14.7)
[2018-11-03] MEDS: OXcarbazepine 300 MG TAB PO SCH ×2 (09:34→20:13)
[2018-11-03] MEDS: Polyethylene Glycol 3350 17 GM Packet PO SCH (09:36)
[2018-11-03] MEDS: Docusate 100 MG CAP PO SCH ×2 (09:36→20:12)
[2018-11-03] MEDS: Fludrocortisone Acetate 0.1 MG TAB PO SCH (09:37)
[2018-11-03] MEDS ORDERED: Bupivacaine HCl 0.5%/Epinephrine 1:200,000/PF 30 ml Vial ONE (10:44)
[2018-11-03] MEDS ORDERED: Lidocaine 2% PF 5 ML VIAL ONE ×2 (10:44→10:47)
[2018-11-03] MEDS ORDERED: Heparin 10,000 UNITS/1 ML VIAL ONE ×3 (10:44→15:00)
[2018-11-03] MEDS ORDERED: Heparin 0 ML ONE (10:45)
[2018-11-03] MEDS ORDERED: Heparin 5,000 UNITS/ML VIAL ONE (10:46)
[2018-11-03] MEDS ORDERED: Sodium Chloride 0.9% 10 ML ONE (10:47)
[2018-11-03] MEDS ORDERED: Midazolam HCl 2 mg/2 ml Vial ONE (11:17)
[2018-11-03] MEDS ORDERED: Fentanyl 100 MCG/2 ML VIAL ONE (11:17)
[2018-11-03] MEDS ORDERED: PROPOFOL 20 ML ONE (11:17)
[2018-11-03] MEDS ORDERED: Ondansetron HCl/PF 4 MG/2 ML Vial IVP PRN (12:32)
--- NOTE | 2018-11-03 12:55 | OP ---
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 PROCEDURES PERFORMED: Right internal jugular vein cuffed tunneled hemodialysis catheter and AngioDynamics Pre-Curve. ANESTHESIA: Intravenous sedation, local, 0.5% Marcaine with epinephrine 30 mL mixed with 2% Xylocaine 10 mL. Ultrasound fluoroscopy used. DESCRIPTION OF PROCEDURE: The patient was taken to the operating room, where under intravenous sedation, neck and chest were prepared with ChloraPrep and draped in routine fashion. Local anesthetic was infiltrated in the skin and subcutaneous tissue about the operative site. Ultrasound visualized. The right internal jugular vein cannulated with a trocar catheter, J-wire threaded, trocar catheter removed. Skin site was enlarged sharply. Stab incision was made over the right chest for new exit site, and using the tunneling device, the pre-curved AngioDynamics cuffed-tunneled hemodialysis catheter tunneled between 2 incisions, placed in the fabric cuff beneath the skin exit site securing it with 2 interrupted suture of 3-0 nylon, sterile dressings applied. Small and medium sized dilators placed over the J-wire into the internal jugular vein were removed. Dilator and Peel-Away sheath placed with J-wire in superior vena cava. Dilator and J-wire were removed. Catheter placed through the Peel-Away sheath. Peel-Away sheath removed. Platysma was approximated with 4-0 Monocryl, skin with subdermal 4-0 Monocryl, and [place] glue and sterile dressings applied. Fluoroscopic images revealed good line placement. Each port aspirated blood, flushed with heparinized saline solution, 1000 units of heparin per mL indicating volume of the port. Job ID: [id number]
--- NOTE | 2018-11-03 13:07 | PRG ---
DATE OF SERVICE: 11/03/2018 SUBJECTIVE: Mr. Boo today is doing well. He consents to placement of a hemodialysis catheter. He has a left upper arm fistula that has been placed in [facility] and has not been accessed reliably. He recently underwent a [employer] by Dr. Hernandez, has another angiogram scheduled in the future. He had a line bacteremia recently and this was removed all those cultures negative. resolved since the catheter has been removed. Plan is to place a new catheter today until the left arm fistula is matured for use. The patient has gallstones, but I believe that they are asymptomatic. His liver function tests were slightly elevated on admission, but his bilirubin has returned to normal and his bile duct is normal caliber and he had a negative sonographic Davis's sign. The patient's abdominal pain complaints are variable. This morning, he complains of pain in central abdomen periumbilical when Dr. Fonseca saw him last week. At a recent admission, he complained of pain in his left lower quadrant. When I see him daily, he complains of pain in different areas. He has hepatomegaly on exam. His elevated liver function tests on admission were due to hepatic congestion due to his cardiomyopathy. The patient has antiphospholipid syndrome and his anticoagulation has been discontinued due to bleeding into his left kidney. This has been embolized. The patient has increased venous collaterals from thrombus in his inferior vena cava from a Benezett filter, but he has previously positive hepatitis B serology. At this point, I do not think the patient is a good candidate for cholecystectomy. I do not think he has symptomatic cholelithiasis. I think cholecystectomy has increased risk, although not prohibitive. At this time, I would prefer not to do cholecystectomy. I do not think this would benefit his pain. His pain may probably be due to bibasilar infiltrate seen on CAT scan and chest x-ray. He also has poor mobility aggravating atelectasis and consolidation is basis and cause variable abdominal pain. He also has hepatic congestion from his cardiomyopathy, which can call some pain and discomfort as well as elevated liver function test. 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 There are multiple other etiologies for his pain. Today, we will place a hemodialysis catheter and I would defer further workup and evaluation to Gastroenterology and deferred any further dialysis access to Nephrology. I had explored his left arm for his antecubital area could not find none. Thus, he had a right arm fistula placed and the vein seemed to be a good caliber, however, it thrombosed. The patient was subsequently referred to [facility] to another dialysis access surgeon, who performed a transposition fistula in his left arm and that is functioning, although has required a [employer] SERVICES and intervention and has not been successfully access yet. At this point, I will see him as needed. Please call if necessary. Job ID: [id number]
--- NOTE | 2018-11-03 15:59 | RAD ---
PORTABLE CHEST: Date: 11/03/18 HISTORY: CCU follow-up. COMPARISON: 11/01/18. FINDINGS/IMPRESSION: Central line and pacemaker leads are unchanged. Hazy interstitial infiltrates in both lung bases appe ar stable in appearance. No confluent opacity. No significant effusion. No interval change in the nedra earance of the chest. POS: [facility]
[2018-11-03] MEDS ORDERED: PHENYLEPHRINE-NS 100 MCG/ML 10 ML SYRINGE ONE (16:22)
[2018-11-03] MEDS ORDERED: PROPOFOL 200 MG/20 ML VIAL ONE (16:22)
--- NOTE | 2018-11-03 17:52 | PDOC.HOSPP ---
- Subjective Encounter Date: 11/03/18 Encounter Time: 15:30 Subjective: Mr. Boo was seen today in follow-up of fever. He continues to have the same complaints of abdominal discomfort, and shortness of breath. He appears comfortable, and it is difficult to assess given his traumatic brain injury. - Objective Vital Signs & Weight: Vital Signs (12 hours) Temp Pulse Resp BP Pulse Ox 11/03/18 13:16 98.5 F 99 21 H 118/65 95 11/03/18 09:40 92 L 11/03/18 09:30 98.3 F 93 21 H 118/65 92 L Weight Weight 203 lb 6.4 oz I&O: 11/02/18 11/03/18 11/04/18 06:59 06:59 06:59 Intake Total 110 580 Output Total 50 Balance 110 580 -50 Result Diagrams: 11/03/18 04:52 11/03/18 04:52 ROS - Medication Medications: Active Medications Generic Name Dose Route Start Last Admin Trade Name Freq PRN Reason Stop Dose Admin Acetaminophen 650 mg 11/02/18 00:45 11/02/18 07:59 Tylenol PO 650 mg Q4H PRN Administration Headache/Fever/Mild Pain (1-3) Docusate Sodium 100 mg 11/02/18 21:00 11/03/18 09:36 Colace PO Not Given BID NEPTALI Epoetin Nain-epbx 7,500 unit 11/02/18 09:30 11/02/18 18:30 Retacrit SC 7,500 unit Q7D NEPTALI Administration Fludrocortisone Acetate 0.1 mg 11/03/18 09:00 11/03/18 09:37 Florinef PO Not Given DAILY NEPTALI Piperacillin Sod/Tazobactam 100 mls @ 200 mls/hr 11/02/18 01:00 11/03/18 13: 21 Sod 3.375 gm/ Sodium Chloride IVPB 100 mls 0100,1300 NEPTALI Administration Morphine Sulfate 2 mg 11/02/18 20:06 11/03/18 10:24 Morphine IVP 2 mg Q4H PRN Administration Pain Ondansetron HCl 4 mg 11/02/18 00:45 11/02/18 13:28 Zofran IVP 4 mg Q6H PRN Administration Nausea/Vomiting Oxcarbazepine 600 mg 11/02/18 21:00 11/03/18 09:34 Trileptal PO 600 mg BID NEPTALI Administration Polyethylene Glycol 17 gm 11/03/18 09:00 11/03/18 09:36 Miralax PO Not Given DAILY NEPTALI - Exam Eye: PERRL Heart: RRR, no murmur, no gallops, no rubs Respiratory: CTAB, no wheezes, no rales, no ronchi, normal chest expansion Gastrointestinal: soft, non-distended, normal bowel sounds, tender to palpation (+ mild right upper quandrant tenderness, and palpable liver edge) Extremities: no cyanosis, 1+ LE edema (1+ pitting edema in both lower extremities) Hosp A/P (1) Fever Code(s): R50.9 - FEVER, UNSPECIFIED Status: Acute (2) Acute on chronic systolic heart failure, NYHA class 3 Code(s): I50.23 - ACUTE ON CHRONIC SYSTOLIC (CONGESTIVE) HEART FAILURE Status : Acute (3) Atrial fibrillation Code(s): I48.91 - UNSPECIFIED ATRIAL FIBRILLATION Status: Chronic Qualifiers: Atrial fibrillation type: paroxysmal (4) End stage renal disease on dialysis Code(s): N18.6 - END STAGE RENAL DISEASE; Z99.2 - DEPENDENCE ON RENAL DIALYSIS Status: Chronic (5) HTN (hypertension) Code(s): I10 - ESSENTIAL (PRIMARY) HYPERTENSION Status: Chronic Qualifiers: (6) Physical deconditioning Code(s): R53.81 - OTHER MALAISE Status: Chronic - Plan * Fever- due to dialysis catheter, which was removed- cultures are negative, and he is afebrile- can consider transitioning him to an oral antibiotic * Right upper quadrant pain- likey from passive congestion of the liver * Elevated LFT's- due to passive congestion * ESRD - continue dialysis * AFIB- his heart rate is stable * HTN- blood pressure is stable * Possible discharge soon
[2018-11-03] MEDS: Acetaminophen 325 MG TAB PO PRN (20:12)
[2018-11-04] MEDS: Piperacillin/Tazobactam 3.375 GM in Sodium Chloride 0.9% 100 ML IVPB SCH ×2 (01:40→14:13)
[2018-11-04 04:52] LABS: #Eosinphils 0.1 thou/uL (0.0-0.7); #Lymphocytes 0.8 thou/uL (1.20-3.40); #Monocytes 0.6 thou/uL (0.11-0.59); #Neutrophils 6.3 thou/uL (1.40-6.50); %Eosinophils 0.7 % (0.0-10.0); %Lymphocytes 10.3 % (21.0-51.0); %Monocytes 7.2 % (0.0-10.0); %Neutrophils 81.8 % (42.0-75.0); Hemoglobin 8.9 g/dL (14.0-18.0); Mean Corpuscular HGB CONC 30.9 g/dL (32.0-36.0); Mean Corpuscular Hemoglobin 29.4 pg (27.0-31.0); Mean Corpuscular Volume 95.3 fL (78.0-98.0); Mean Platelet Volume 12.3 fL (7.4-10.4); Platelet Count 30 thou/uL (130-400); RBC Distribution Width 14.2 % (11.5-14.5); Red Blood Cell (RBC) Count 3.02 mill/uL (4.70-6.10); White Blood Cell (WBC) Count 7.7 thou/uL (4.8-10.8)
[2018-11-04 05:09] LABS: Anion Gap 14 mmol/L (10-20); BUN (Urea Nitrogen) 19 mg/dL (8.9-20.6); Calc. Creatinine Clearance 41 mL/min (70-130); Calcium 8.6 mg/dL (7.8-10.44); Carbon Dioxide 29 mmol/L (22-29); Chloride 97 mmol/L (98-107); Estimated GFR-MDRD 23; Glucose 96 mg/dL (70-105); Potassium 3.6 mmol/L (3.5-5.1); Sodium 136 mmol/L (136-145)
[2018-11-04] MEDS: Morphine 2 MG/ML SYRINGE IVP PRN ×2 (08:47→21:47)
[2018-11-04] MEDS: Polyethylene Glycol 3350 17 GM Packet PO SCH (08:50)
[2018-11-04] MEDS: OXcarbazepine 300 MG TAB PO SCH ×2 (08:52→20:53)
[2018-11-04] MEDS: Docusate 100 MG CAP PO SCH ×2 (08:52→20:53)
[2018-11-04] MEDS: Acetaminophen 325 MG TAB PO PRN (09:12)
--- NOTE | 2018-11-04 10:08 | PRG ---
DATE OF SERVICE: 11/04/2018 SUBJECTIVE: Mr. Boo is a 48-year-old white male, followed up for his ESRD. He underwent hemodialysis yesterday without any difficulty. We did run a short 3-hour treatment. This morning, he is still complaining of abdominal pain. This has been persistent. He is receiving p.r.n. morphine. Consideration is to reconsult GI again for further evaluation. He was seen by Surgery, and the feeling is that he does not have acute cholecystitis. OBJECTIVE: VITAL SIGNS: Blood pressure 113/59, heart rate 109, respiratory rate 20, temperature 98.2, and pulse ox 94%. GENERAL: Noted to be awake, alert, comfortable, not in overt distress. SKIN: Adequate turgor. HEENT: Slightly pale conjunctivae. Anicteric sclerae. NECK: No neck mass. No carotid bruits. No JVD. CHEST: No deformities. LUNGS: Clear breath sounds. HEART: Normal sinus rhythm. No murmur. No gallops. No rubs. ABDOMEN: Globular, soft, nontender. No masses. EXTREMITIES: No edema. No deformities. MEDICATIONS: Medications of November 04, 2018, were reviewed. LABORATORY DATA: Laboratories of November 04, 2018; white count 7.7, hemoglobin 8.9. Sodium 136, potassium 3.6, chloride 97, carbon dioxide 29, BUN 19, creatinine 2.89, calcium 8.6. BNP is 2949. ASSESSMENT AND PLAN: 1. End-stage renal disease, stable. We will continue current hemodialysis regimen of Wednesday, , and Wednesday. Yesterday, minimal fluid was removed due to the low blood pressure and tachycardia. Fluid removal will only be done as tolerated. 2. Chronic anemia, on weekly Epogen. 3. Abdominal pain. Consider reconsulting GI again for the persistent abdominal pain. Surgery has evaluated the patient, feeling there is no acute abdomen. 4. Fever-much improved. Dialysis catheter has been changed for a possible line infection. 5. We will recheck again CBC and CMP in a.m. with this patient. Job ID: [id number]
[2018-11-04] MEDS: Fludrocortisone Acetate 0.1 MG TAB PO SCH (10:43)
--- NOTE | 2018-11-04 12:44 | PDOC.HOSPP ---
- Subjective Encounter Date: 11/04/18 Encounter Time: 12:00 Subjective: Mr. Boo was seen today in follow-up of abdominal pain, and fever. He continues to have abdominal pain but says the shortness of breath has improved. - Objective Vital Signs & Weight: Vital Signs (12 hours) Temp Pulse Resp BP BP Pulse Ox 11/04/18 08:00 98.2 F 109 H 20 113/59 L 94 L 11/04/18 03:18 98.6 F 94 17 104/63 94 L Weight Weight 203 lb 6.4 oz I&O: 11/03/18 11/04/18 11/05/18 06:59 06:59 06:59 Intake Total 580 800 Output Total 53 Balance 580 747 Result Diagrams: 11/04/18 04:30 11/04/18 04:30 ROS - Medication Medications: Active Medications Generic Name Dose Route Start Last Admin Trade Name Freq PRN Reason Stop Dose Admin Acetaminophen 650 mg 11/02/18 00:45 11/04/18 09:12 Tylenol PO 650 mg Q4H PRN Administration Headache/Fever/Mild Pain (1-3) Docusate Sodium 100 mg 11/02/18 21:00 11/04/18 08:52 Colace PO 100 mg BID NEPTALI Administration Epoetin Nain-epbx 7,500 unit 11/02/18 09:30 11/02/18 18:30 Retacrit SC 7,500 unit Q7D NEPTALI Administration Fludrocortisone Acetate 0.1 mg 11/03/18 09:00 11/04/18 10:43 Florinef PO 0.1 mg DAILY NEPTALI Administration Piperacillin Sod/Tazobactam 100 mls @ 200 mls/hr 11/02/18 01:00 11/04/18 01: 40 Sod 3.375 gm/ Sodium Chloride IVPB 100 mls 0100,1300 NEPTALI Administration Morphine Sulfate 2 mg 11/02/18 20:06 11/04/18 08:47 Morphine IVP 2 mg Q4H PRN Administration Pain Ondansetron HCl 4 mg 11/02/18 00:45 11/02/18 13:28 Zofran IVP 4 mg Q6H PRN Administration Nausea/Vomiting Oxcarbazepine 600 mg 11/02/18 21:00 11/04/18 08:52 Trileptal PO 600 mg BID NEPTALI Administration Polyethylene Glycol 17 gm 11/03/18 09:00 11/04/18 08:50 Miralax PO 17 gm DAILY NEPTALI Administration - Exam Eye: PERRL, anicteric sclera Heart: RRR, no murmur, no gallops, no rubs, normal peripheral pulses Respiratory: CTAB, no wheezes, no rales, no ronchi, normal chest expansion Gastrointestinal: soft, tender to palpation (+ right mid to lower quadrant tenderness no rebound or guarding, liver palpated 3-4 cm below costal margin,) Extremities: no cyanosis, no clubbing, no edema Skin: normal turgor (+ chronic venous stasis changes) Hosp A/P (1) Fever Code(s): R50.9 - FEVER, UNSPECIFIED Status: Acute (2) Abdominal pain Code(s): R10.9 - UNSPECIFIED ABDOMINAL PAIN Status: Acute Qualifiers: Abdominal location: left lower quadrant Qualified Code(s): R10.32 - Left lower quadrant pain (3) Acute on chronic systolic heart failure, NYHA class 3 Code(s): I50.23 - ACUTE ON CHRONIC SYSTOLIC (CONGESTIVE) HEART FAILURE Status : Acute (4) Atrial fibrillation Code(s): I48.91 - UNSPECIFIED ATRIAL FIBRILLATION Status: Chronic Qualifiers: Atrial fibrillation type: paroxysmal (5) End stage renal disease on dialysis Code(s): N18.6 - END STAGE RENAL DISEASE; Z99.2 - DEPENDENCE ON RENAL DIALYSIS Status: Chronic (6) HTN (hypertension) Code(s): I10 - ESSENTIAL (PRIMARY) HYPERTENSION Status: Chronic Qualifiers: (7) Physical deconditioning Code(s): R53.81 - OTHER MALAISE Status: Chronic - Plan * Fever- due to dialysis catheter, which was removed- can consider transitioning him to an oral antibiotic soon * Abdominal pain- he has pain indifferent locations, it was reported to be primarily on the left side on his previous admission. Earlier in this admission it was in the right upper quadrant when I assessed him. Now it is more in the right mid to lower quadrant. GI has been consulted, and recommends proceeding with the HIDA scan. * Thrombocytopenia- discussed with Dr. Li- he does not feel this is due to his liver disease- will consult Hematology, and also will need to determine if he is a candidate to re-start anticoagulation for Portal vein and IVC thrombosis as well as AFIB * Elevated LFT's- due to passive congestion * ESRD - continue dialysis * AFIB- his heart rate is stable * HTN- blood pressure is stable
--- NOTE | 2018-11-04 12:48 | PQF ---
JOEL HUTCHINSON W. JR. KEATON, TONI MD [id number] [facility]288 [id number] CLINICAL DOCUMENTATION IMPROVEMENT CLARIFICATION FORM: ICD-10 Updated PLEASE DO AN ADDENDUM TO THE PROGRESS NOTE WITH ANY DOCUMENTATION UPDATES OR ADDITIONS AND CARRY THROUGH TO DC SUMMARY. THANK YOU. DATE: 11/04/2018 11/07/18 , 11/08/18 ATTN:DR. Royce ROYAL, DR. Sung CHRIS Please exercise your independent, professional judgment in responding to the clarification form. Clinical indicators are provided on the bottom of this form for your review. Please check appropriate box(s): [ ] Empirically treating Gram Negative Pneumonia [ ] Pneumonia secondary to (specify organism / underlying disease) [ ] Simple Pneumonia (community acquired - nosocomial) [ x ] Other diagnosis _Infected dialysis catheter [ ] Unable to determine In addition, please specify: Present on Admission (POA): [ x ] Yes [ ] No [ ] Unable to determine For continuity of documentation, please document condition throughout progress notes and discharge summary. Thank You. CLINICAL INDICATORS - SIGNS / SYMPTOMS / LABS 11/01 H & P (V[facility]MA) 2). POSSIBLE BILATERAL PNEUMONIA, WAS SEEN ON CHEST X RAY 11/02 PN ( LELE) HE HAS BEEN COUGHING "ALMOST CONSTANTLY FOR THE PAST FEW DAYS" . HE NOTES SOME DYSPNEA WHEN LAYING FLAT. A/P : 1) FEVER, ACUTE, UNSPECIFIED 11/01 CHEST XRAY : IMPRESSION BIBASILAR INFILTRATES, HAZY INFILTRATES IN BOTH LOWER LUNG ODONNELL. 11/03 WBC 12.6 11/03 CHEST XRAY: IMPRESSION-- HAZY INFILTRATES IN BOTH LUNG BASES APPEAR STABLE IN APPEARANCE. NO CONFLUENT OPACITY. 11/05 PN (LELE) PLAN: POSSIBLE PNEUMONIA VS: VOLUME OVERLOAD- CONTINUE EMPIRIC ANTIBIOTICS NO FURTHER MENTION OF PNEUMONIA TO DATE RISK: H & P/ VILMA RECENT HOSPITALIZATION ESRD DEPENDANT ON DIALYSIS DX SEPSIS TREATMENTS: ZOSYN IV (11/02- PRESENT) SERIAL LABS THANK YOU ! DAVE (This form is maintained as a part of the permanent medical record) 2014 [employer]. All Rights Reserved FARIBA [email or web address]@[employer] [phone] [facility]ITALHansel
--- NOTE | 2018-11-04 15:33 | CON ---
DATE OF CONSULTATION: 11/04/2018 REASON FOR CONSULTATION: Persistent abdominal pain, nausea and vomiting. HISTORY OF PRESENT ILLNESS: Hans Boo is a 48-year-old male who was seen by my associate, Dr. Sandeep Fonseca approximately a week ago with abdominal pain. As per consultation by Dr. Fonseca, pain was actually more over the left lower quadrant, left upper quadrant. The patient has had recent perinephric hematoma over the left kidney and has had embolization to control bleeding. Blood count is stable. He was also seen by Dr. Dany Wagner on this admission. The patient has had persistent abdominal pain over the last week or so. The pain was more over the left lower quadrant. It was felt the pain could be of vascular etiology after possibility of the . The patient has a history of antiphospholipid syndrome. Abdominal CAT scan done shows possibility of portal vein thrombosis. He also has had IVC filter placement in the past and again the CAT scan showed a clotting over the IVC filter. The patient had abdominal sonogram, which revealed small gallstones and normal-appearing common bile duct. He was nontender over the right upper quadrant in the past. Now he says pain is more over the right side of the abdomen. He points to the entire right side of the abdomen has abdominal pain. He also has nausea and vomiting. Does not feel like eating because of nausea and vomiting. He has had no other relevant history. MEDICAL ILLNESSES: 1. Cardiomyopathy with poor ejection fraction at 30%%. 2. Hypertension. 3. Gout. 4. Antiphospholipid syndrome. 5. Thrombocytopenia, which has been persistent over the last several . PAST SURGICAL HISTORY: 1. Status post AICD placement. 2. IVC filter placement. 3. Cardioversion . 4. AV fistula placement . ALLERGIES: PHENYTOIN, MIDAZOLAM, AMIODARONE. SOCIAL HISTORY: The patient is . He denies any smoking or alcohol abuse. However, he is not a very good historian and seems to be unable at times to give proper history. MEDICATIONS: 1. . 2. Fludrocortisone. 3. Trileptal. 4. . 5. Polyethylene glycol. . REVIEW OF SYSTEMS: A 10-point systems reviewed, remarkable for abdominal pain, nausea, vomiting. Denies any chest pain, any dyspnea, orthopnea, or PND. He has no chronic cough or hemoptysis. PHYSICAL EXAMINATION: GENERAL: The patient appears to be in moderate discomfort. He is somewhat restless. He is not a good historian. VITAL SIGNS: Stable. He is afebrile. Pulse is 76, blood pressure is 120/76. HEENT: Conjunctivae are clear. NECK: Supple. No adenitis or thyromegaly noted. CARDIOVASCULAR: First and second heart sounds are normal. LUNGS: Actually clear to auscultation. He is actually able to lie down flat without any orthopnea. ABDOMEN: Soft and nondistended. Abdomen is mildly tender over the right lower quadrant, right lumbar area. It is more tender over the right upper quadrant . There is no rebound or guarding. EXTREMITIES: Reveal no edema. LABORATORY DATA: The lab data shows LFTs are trending up. When he was seen by Dr. Fonseca, his liver function tests were normal, now actually going up. Abdominal sonogram done last week shows small gallstones, and the common bile duct . CAT scan done showed possible portal vein thrombosis, perinephric hematoma in left side, and also what appears to be clots in the IVC filter. CBC today, WBC 7700, hemoglobin is 8.9, hematocrit is 28.8, platelet count is very low at 30,000, polymorphs 81. Serum chemistries; sodium 136, potassium 3.6, chloride 97, bicarb 29, bilirubin 2 mg percent, direct bilirubin 1.6, AST is 184, ALT 117. A week ago, his liver function tests were actually normal, trending up. On 11/01/2018 AST has gone up to 92, ALT 58, alkaline phosphatase 329. CLINICAL IMPRESSION: A 48-year-old male with multiple medical problems. The current symptoms are abdominal pain, nausea, and vomiting. He had been seen by Dr. Sandeep Fonseca in the past and also by Dr. Dany Wagner. Going over the consult by Dr. Sandeep Fonseca, his pain was mostly over the left upper quadrant, left abdominal area. Now, it has been migrated to right upper quadrant, right lumbar area, and right lower quadrant. I had a long talk with Dr. Wagner, and Dr. Wagner has been seeing him over the last several days. He says his pain seems to be migrating everyday. Some days, different site of pain. He is not really convinced that he has cholecystitis. Again, he has severe thrombocytopenia, etiology unclear. There is no prior history of liver disease. He has been seen by Dr. Reed in the past. RECOMMENDATIONS: My recommendations as follows. 1. Obtain HIDA scan. 2. Hematologic input to see what is causing the thrombocytopenia. 3. If the HIDA scan comes abnormal, may have to consider cholecystectomy, although he is at very high risk for I will await the HIDA scan report . Job ID: [id number]
[2018-11-04] MEDS: Sodium Chloride 0.9% 10 ML ONE (21:50)
--- NOTE | 2018-11-04 22:11 | CON ---
DATE OF CONSULTATION: REASON FOR CONSULTATION: Chronic thrombocytopenia and antiphospholipid syndrome. HISTORY OF PRESENT ILLNESS: Mr. Boo is a 48-year-old gentleman with antiphospholipid syndrome, chronic thrombocytopenia, end-stage renal disease, and atrial fibrillation, who presented to the emergency room with fever. He was noted to have a dialysis catheter line infection and pneumonia. He was started on antibiotics. His dialysis catheter was removed and a new one has been placed. The patient has a longstanding history of thrombocytopenia and antiphospholipid syndrome. He was on anticoagulation until January of last year when he had a large retroperitoneal hematoma while on a heparin drip. His platelets have been between 30,000 and 40,000 for quite sometime. He does have a history of PE and DVT, but he has an IVC filter in place. He was last seen by Dr. Reed on October 26, 2018. His platelet count on prior labs in August was around 50,000. The patient denies any bleeding. He does have frequent bruising. No shortness of breath. He does complain of pain today in his right lower quadrant. PAST MEDICAL HISTORY: 1. Antiphospholipid syndrome. 2. Thrombocytopenia. 3. Autoimmune hemolytic anemia. 5. End-stage renal disease. 6. Hypertension. 7. Atrial fibrillation. 8. Cardiomyopathy. 9. Arthritis. 10. Depression. 11. Bilateral DVTs. 12. Pulmonary embolism. 13. Gout. PAST SURGICAL HISTORY: 1. Brain surgery for seizure. 2. Cardiac catheterization. 3. IVC filter. 4. Dialysis access placement. ALLERGIES: ALLERGIES TO DILANTIN, VERSED, AND AMIODARONE. CURRENT MEDICATIONS: 1. Epogen 7500 units weekly. 2. Colace b.i.d. 3. Florinef daily. 4. Melatonin daily. 5. Morphine p.r.n. 6. Trileptal b.i.d. 7. Zosyn b.i.d. 8. MiraLAX daily. 9. Vancomycin daily. FAMILY HISTORY: No history of cancer or stroke. SOCIAL HISTORY: He is , lives with his family at home. No alcohol, tobacco, or illicit drug use. REVIEW OF SYSTEMS: Positive for right lower quadrant abdominal pain. Otherwise , negative. PHYSICAL EXAMINATION: VITAL SIGNS: Temperature is 98.2, pulse is 87, respiratory rate is 18, BP is 115/55, he is 96% on room air. GENERAL: This is a chronically ill-appearing male, in no acute distress. HEENT: Normocephalic, atraumatic. Pupils are equal and reactive to light. NECK: Supple. CV: Regular rate and rhythm. LUNGS: Clear anterior. ABDOMEN: Soft, nondistended. Bowel sounds are positive. EXTREMITIES: He has 1+ edema in his lower extremities with chronic venous stasis changes. SKIN: No rash. HEMATOLOGICAL: He has scattered bruising throughout. NEUROLOGICAL: Nonfocal. PSYCH: He is alert, oriented, and answering appropriately. PERTINENT LABS AND X-RAYS: Current WBCs are 7.7, hemoglobin 8.9, hematocrit 28.8, platelet count is 30,000, 81% neutrophils, 10% lymphocytes. PT is 17.3, INR is 1.1. Sodium 136, potassium 3.6, chloride 97, CO2 is 29, BUN is 19, creatinine 2.89, calcium is 8.6, bilirubin is 2.0, AST is 184, ALT is 117, alkaline phosphatase is 333. Troponin is 0.280. BNP is 2949.4. Serum total protein is 7, albumin 3.2. ASSESSMENT: 1. Antiphospholipid syndrome. 2. Chronic thrombocytopenia. 3. End-stage renal disease. 4. Sepsis. 5. Atrial fibrillation. DISCUSSION: The patient's anticoagulation should continue to be held until his platelets remain safely above 50,000. He has seen Dr. Reed in September and has a followup appointment on 11/16. There was consideration of starting Promacta for his platelets, at which point he could potentially resume anticoagulation. His appointment is on 11/16, at 03:45 p.m. He can follow up at that time. Thank you for the consult. We will sign off. Job ID: [id number] [facility]
[2018-11-05] MEDS: Piperacillin/Tazobactam 3.375 GM in Sodium Chloride 0.9% 100 ML IVPB SCH ×2 (01:25→14:31)
[2018-11-05] MEDS: Morphine 2 MG/ML SYRINGE IVP PRN ×4 (03:57→21:46)
[2018-11-05] MEDS: Sodium Chloride 0.9% 10 ML ONE (03:59)
[2018-11-05 05:05] LABS: #Eosinphils 0.1 thou/uL (0.0-0.7); #Lymphocytes 0.8 thou/uL (1.20-3.40); #Monocytes 0.5 thou/uL (0.11-0.59); #Neutrophils 5.8 thou/uL (1.40-6.50); %Eosinophils 1.1 % (0.0-10.0); %Lymphocytes 11.4 % (21.0-51.0); %Neutrophils 80.5 % (42.0-75.0); Hemoglobin 7.6 g/dL (14.0-18.0); Mean Corpuscular HGB CONC 32.7 g/dL (32.0-36.0); Mean Corpuscular Hemoglobin 30.8 pg (27.0-31.0); Mean Corpuscular Volume 94.2 fL (78.0-98.0); Platelet Count 31 thou/uL (130-400); RBC Distribution Width 14.4 % (11.5-14.5); Red Blood Cell (RBC) Count 2.46 mill/uL (4.70-6.10); White Blood Cell (WBC) Count 7.3 thou/uL (4.8-10.8)
[2018-11-05 05:23] LABS: ALT (SGPT) 104 U/L (8-55); AST (SGOT) 109 U/L (5-34); Albumin 2.5 g/dL (3.5-5.0); Alkaline Phosphatase 333 U/L (40-150); Anion Gap 16 mmol/L (10-20); BUN (Urea Nitrogen) 33 mg/dL (8.9-20.6); Bilirubin, Total 1.8 mg/dL (0.2-1.2); Calc. Creatinine Clearance 26 mL/min (70-130); Calcium 8.5 mg/dL (7.8-10.44); Carbon Dioxide 24 mmol/L (22-29); Chloride 95 mmol/L (98-107); Estimated GFR-MDRD 14; Globulin 3.5 g/dL (2.4-3.5); Glucose 95 mg/dL (70-105); Potassium 3.2 mmol/L (3.5-5.1); Sodium 132 mmol/L (136-145)
[2018-11-05 07:47] LABS: Vancomycin, Random 2.7 ug/mL (See Comment)
[2018-11-05] MEDS ORDERED: EPOETIN ALFA-EPBX (ESRD) 4,000 UNIT/ML VIAL SC SCH (09:59)
--- NOTE | 2018-11-05 10:13 | PRG ---
DATE OF SERVICE: 11/05/2018 SUBJECTIVE: Mr. Boo is a 48-year-old white male with ESRD and currently being followed by the Renal Service for his maintenance hemodialysis. He is undergoing hemodialysis today. Fluid removal is being removed only as tolerated. He was re-evaluated again by GI due to the persistent abdominal pain. Recommendation to have a HIDA scan was made. He has also been re-evaluated again by Hematology for the chronic thrombocytopenia. He has been seen by Dr. Reed as an outpatient for the low platelet and consideration for Promacta is being considered. No acute events noted last night. OBJECTIVE: VITAL SIGNS: Blood pressure is 115/66, heart rate 108, respiratory rate 19, temperature 99.9, and pulse ox 95%. GENERAL: Noted to be sleeping, but arousable and comfortable. SKIN: Adequate turgor. HEENT: Slightly pale conjunctivae. Anicteric sclerae. NECK: No neck mass. No carotid bruits. No JVD. CHEST: No deformities. LUNGS: Clear breath sounds. HEART: Normal sinus rhythm. No murmurs. No gallops. No rubs. ABDOMEN: Globular, soft, and nontender. No masses. EXTREMITIES: No edema. No deformities. MEDICATIONS: Medications of November 05, 2018, reviewed. LABORATORY DATA: Laboratories of November 05, 2018; vancomycin level 2.7. Sodium 132, potassium 3.2, chloride 95, carbon dioxide 24, BUN 33, creatinine 4.59, glucose 95, calcium 8.5, AST 109, ALT 104, alkaline phosphatase 333, albumin 2.5, and calcium is 8.5. White count 7.3, hemoglobin 7.6. ASSESSMENT AND PLAN: 1. Chronic thrombocytopenia - being followed by Hematology. 2. Persistent abdominal pain. GI has evaluated this patient. The etiology is unclear. Although, ischemic bowel is always a possibility. He is being ruled out for a possibility of acute cholecystitis. HIDA scan has been ordered by Dr. Rose. 3. Fever, resolved. He is on empiric IV antibiotics. So far, blood culture has been negative. In addition, his precaution dialysis catheter has been changed. 4. End-stage renal disease. We will continue current Wednesday, , and Wednesday hemodialysis regimen. Fluid removal only as tolerated. I adjusted the potassium bath in the dialysate fluid due to the fact that the potassium was noted to be low at 3.2. This is a reflection of decreased p.o. intake. 5. Anemia. We will increase Epogen from 7500 units to 10,000 units subcu weekly. Overall, prognosis remains guarded. Job ID: [id number]
[2018-11-05] MEDS ORDERED: Heparin 10,000 UNITS/ 10 ML VIAL ONE (12:20)
[2018-11-05] MEDS: EPOETIN ALFA-EPBX (ESRD) 10,000 UNIT/ML VIAL SC SCH (14:33)
[2018-11-05] MEDS: Docusate 100 MG CAP PO SCH ×2 (14:44→21:36)
[2018-11-05] MEDS: OXcarbazepine 300 MG TAB PO SCH ×2 (14:45→21:36)
[2018-11-05] MEDS: Fludrocortisone Acetate 0.1 MG TAB PO SCH (14:45)
[2018-11-05] MEDS: Polyethylene Glycol 3350 17 GM Packet PO SCH (14:47)
--- NOTE | 2018-11-05 18:11 | PDOC.HOSPP ---
- Subjective Encounter Date: 11/05/18 Encounter Time: 11:00 Subjective: Mr. Boo was seen today in follow-up of abdominal pain, and respiratory failure. He says he does not know how he feels. - Objective Vital Signs & Weight: Vital Signs (12 hours) Temp Pulse Resp BP Pulse Ox 11/05/18 14:04 99.5 F 105 H 20 119/64 92 L 11/05/18 08:00 95 11/05/18 07:34 99.9 F H 108 H 19 115/66 95 Weight Weight 202 lb 12.8 oz I&O: 11/04/18 11/05/18 11/06/18 06:59 06:59 06:59 Intake Total 800 1140 Output Total 53 730 Balance 747 410 Result Diagrams: 11/05/18 04:27 11/05/18 04:27 ROS - Medication Medications: Active Medications Generic Name Dose Route Start Last Admin Trade Name Freq PRN Reason Stop Dose Admin Acetaminophen 650 mg 11/02/18 00:45 11/04/18 09:12 Tylenol PO 650 mg Q4H PRN Administration Headache/Fever/Mild Pain (1-3) Docusate Sodium 100 mg 11/02/18 21:00 11/05/18 14:44 Colace PO 100 mg BID NEPTALI Administration Epoetin Nain-epbx 10,000 unit 11/05/18 12:00 11/05/18 14:33 Retacrit SC 10,000 unit Q7D NEPTALI Administration Fludrocortisone Acetate 0.1 mg 11/03/18 09:00 11/05/18 14:45 Florinef PO 0.1 mg DAILY NEPTALI Administration Piperacillin Sod/Tazobactam 100 mls @ 200 mls/hr 11/02/18 01:00 11/05/18 14: 31 Sod 3.375 gm/ Sodium Chloride IVPB 100 mls 0100,1300 NEPTALI Administration Morphine Sulfate 2 mg 11/02/18 20:06 11/05/18 14:30 Morphine IVP 2 mg Q4H PRN Administration Pain Ondansetron HCl 4 mg 11/02/18 00:45 11/02/18 13:28 Zofran IVP 4 mg Q6H PRN Administration Nausea/Vomiting Oxcarbazepine 600 mg 11/02/18 21:00 11/05/18 14:45 Trileptal PO 600 mg BID NEPTALI Administration Polyethylene Glycol 17 gm 11/03/18 09:00 11/05/18 14:47 Miralax PO 17 gm DAILY NEPTALI Administration - Exam Eye: PERRL, anicteric sclera (temporal wasting) Heart: RRR, no murmur, no gallops, no rubs Respiratory: CTAB, no wheezes, no rales, no ronchi, normal chest expansion Gastrointestinal: soft, non-distended, normal bowel sounds, no palpable masses, no guarding, tender to palpation (abdominal tenderness, right side) Extremities: no cyanosis (Pitting edema in both lower extremities), 1+ LE edema Hosp A/P (1) Fever Code(s): R50.9 - FEVER, UNSPECIFIED Status: Acute (2) Abdominal pain Code(s): R10.9 - UNSPECIFIED ABDOMINAL PAIN Status: Acute Qualifiers: Abdominal location: left lower quadrant Qualified Code(s): R10.32 - Left lower quadrant pain (3) Acute on chronic systolic heart failure, NYHA class 3 Code(s): I50.23 - ACUTE ON CHRONIC SYSTOLIC (CONGESTIVE) HEART FAILURE Status : Acute (4) Atrial fibrillation Code(s): I48.91 - UNSPECIFIED ATRIAL FIBRILLATION Status: Chronic Qualifiers: Atrial fibrillation type: paroxysmal (5) End stage renal disease on dialysis Code(s): N18.6 - END STAGE RENAL DISEASE; Z99.2 - DEPENDENCE ON RENAL DIALYSIS Status: Chronic (6) HTN (hypertension) Code(s): I10 - ESSENTIAL (PRIMARY) HYPERTENSION Status: Chronic Qualifiers: (7) Physical deconditioning Code(s): R53.81 - OTHER MALAISE Status: Chronic (8) Moderate protein-calorie malnutrition Code(s): E44.0 - MODERATE PROTEIN-CALORIE MALNUTRITION Status: Acute - Plan * Fever- due to dialysis catheter, which was removed- cultures are negative- will continue IV antibiotics- awaiting HIDA scan results as well * Abdominal pain- Unclear etiology. He has had extensive GI- evaluation, and HIDA scan is pending * Thrombocytopenia- Hematology is following. His platelet count is too low for anticoagulation. He has been seeing Dr. Reed and plan is for outpatient follow-up. * Elevated LFT's- due to passive congestion * Possible Pneumonia vs. volume overload- continue empiric antibiotics * ESRD - continue dialysis * AFIB- his heart rate is stable- no anticoagulation due to severely low platelets * HTN- blood pressure is stable * Overall Prognosis is guarded, with his multiple medical problems, and general debility. He also has moderate protein calorie malnutrition, as he has had significant weight loss over the past few months
--- NOTE | 2018-11-05 18:50 | PRG ---
DATE OF SERVICE: 11/05/2018 SUBJECTIVE: This is a 48-year-old male with multiple medical problems. The patient has had dialysis done today. The patient was seen by Dr. Sandeep Fonseca a week ago for abdominal pain. At that time, CAT scan was basically negative except for IVC clots over the filter and also possible portal vein thrombosis. The pain was actually over the left side of the abdomen before. Now, the pain actually moved to the right upper quadrant, epigastric area. He does have gallstones on sonogram. However, there is no thickening of gallbladder wall seen. He has been seen by Dr. Wagner for surgical input. Dr. Wagner does not think that he needs to have his gallbladder taken out. He appears very comfortable HIDA scan is ordered and that is pending. PHYSICAL EXAMINATION: VITAL SIGNS: Temperature 99.9 degrees Fahrenheit, pulse is 108, blood pressure is 115/66. CARDIOVASCULAR: First and second heart sounds are normal. LUNGS: Clear to auscultation. ABDOMEN: Nondistended. Abdomen is tender over the . There is no rebound or guarding. LABORATORY DATA: From today, CBC; WBC 7300, hemoglobin 7.6, hematocrit 23.1, platelet count 31,000. Chemistry panel, his liver function tests remain elevated. Bilirubin is 1.8, AST 109, ALT 104, alkaline phosphatase 333. Hematology consult noted from yesterday. Also talked with . Rossana Nash and she feels that no anticoagulation necessary unless platelet count becomes above 50,000. RECOMMENDATIONS: 1. Continue symptomatic treatment. 2. Await HIDA scan study. Job ID: [id number]
[2018-11-06] MEDS: Piperacillin/Tazobactam 3.375 GM in Sodium Chloride 0.9% 100 ML IVPB SCH ×2 (00:10→13:29)
[2018-11-06] MEDS: Morphine 2 MG/ML SYRINGE IVP PRN ×2 (01:59→11:32)
--- NOTE | 2018-11-06 11:17 | NM ---
EXAM: Nuclear medicine hepatobiliary scan HISTORY: Right upper quadrant abdominal pain and elevated LFTs TECHNIQUE: A nuclear medicine hepatobiliary scan was performed after administration of 5.3 mCi of padilla hnetium 99m mebrofenin. A gallbladder ejection fraction was performed after administration of CCK. COMPARISON: 01/25/2018 FINDINGS: Prompt uptake of the radiopharmaceutical by the liver is seen. No photopenic liver defects are seen. Biliary activity is seen within 20 minutes. Gallbladder activity is seen within 20 minutes. Bowel activity is seen within 60 minutes. A gallbladder ejection fraction was calculated at 73%. IMPRESSION: Normal hepatobiliary scan
[2018-11-06] MEDS: OXcarbazepine 300 MG TAB PO SCH ×2 (11:21→22:21)
[2018-11-06] MEDS: Docusate 100 MG CAP PO SCH ×2 (11:21→22:22)
[2018-11-06] MEDS: Fludrocortisone Acetate 0.1 MG TAB PO SCH (11:22)
[2018-11-06] MEDS: Polyethylene Glycol 3350 17 GM Packet PO SCH (11:23)
--- NOTE | 2018-11-06 12:08 | PDOC.HOSPP ---
- Subjective Encounter Date: 11/06/18 Encounter Time: 12:00 Subjective: f/u for abd pain of unclear etiology. IVC filter clotted and pt with antiphospholipid syndrome but not on anticoagulation with hx of prior renal hemorrhage with subsequent nephrectomy and now on HD. Still weak, taking minimal po and no BM in about a week per 's report. - Objective Vital Signs & Weight: Vital Signs (12 hours) Temp Pulse Resp BP BP Pulse Ox 11/06/18 11:16 98.4 F 110 H 13 122/68 96 11/06/18 07:28 98.6 F 113 H 23 H 160/68 H 100 11/06/18 03:11 99.6 F 100 16 117/68 99 Weight Weight 201 lb 1.6 oz I&O: 11/05/18 11/06/18 11/07/18 06:59 06:59 06:59 Intake Total 1140 440 Output Total 730 1095 Balance 410 -655 Result Diagrams: 11/05/18 04:27 11/05/18 04:27 Additional Labs: Microbiology 11/01/18 19:23 Venous blood - Right Hand Blood Culture - Preliminary NO GROWTH AT 48 HOURS 11/01/18 18:51 Venous blood - Right Arm Blood Culture - Preliminary NO GROWTH AT 48 HOURS Laboratory Tests 10/28/18 11/01/18 11/01/18 06:27 18:51 18:51 Hgb 9.1 L Plt Count 39 L Sodium Potassium Creatinine Total Bilirubin AST ALT Alkaline Phosphatase B-Natriuretic Peptide 2784.4 H 3958.2 H Albumin 11/03/18 11/03/18 11/03/18 04:52 04:52 08:42 Hgb 10.0 L Plt Count 42 L Sodium Potassium Creatinine Total Bilirubin 2.0 H AST 184 H ALT 117 H Alkaline Phosphatase 333 H B-Natriuretic Peptide 2949.4 H Albumin 3.2 L 11/04/18 11/04/18 11/05/18 04:30 04:30 04:27 Hgb 8.9 L Plt Count 30 L Sodium 136 Potassium 3.6 Creatinine 2.89 H Total Bilirubin 1.8 H AST 109 H ALT 104 H Alkaline Phosphatase 333 H B-Natriuretic Peptide Albumin 2.5 L Radiology Reviewed by me: Yes (HIDA scan - neg, GB EF 73%) EKG Reviewed by me: Yes (Tele - Sinus tachycardia) ROS - Medication Medications: Active Medications Generic Name Dose Route Start Last Admin Trade Name Freq PRN Reason Stop Dose Admin Acetaminophen 650 mg 11/02/18 00:45 11/04/18 09:12 Tylenol PO 650 mg Q4H PRN Administration Headache/Fever/Mild Pain (1-3) Docusate Sodium 100 mg 11/02/18 21:00 11/06/18 11:21 Colace PO 100 mg BID NEPTALI Administration Epoetin Nain-epbx 10,000 unit 11/05/18 12:00 11/05/18 14:33 Retacrit SC 10,000 unit Q7D NEPTALI Administration Fludrocortisone Acetate 0.1 mg 11/03/18 09:00 11/06/18 11:22 Florinef PO 0.1 mg DAILY NEPTALI Administration Piperacillin Sod/Tazobactam 100 mls @ 200 mls/hr 11/02/18 01:00 11/06/18 00: 10 Sod 3.375 gm/ Sodium Chloride IVPB 100 mls 0100,1300 NEPTALI Administration Morphine Sulfate 2 mg 11/02/18 20:06 11/06/18 11:32 Morphine IVP 2 mg Q4H PRN Administration Pain Ondansetron HCl 4 mg 11/02/18 00:45 11/02/18 13:28 Zofran IVP 4 mg Q6H PRN Administration Nausea/Vomiting Oxcarbazepine 600 mg 11/02/18 21:00 11/06/18 11:21 Trileptal PO 600 mg BID NEPTALI Administration Polyethylene Glycol 17 gm 11/03/18 09:00 11/06/18 11:23 Miralax PO 17 gm DAILY NEPTALI Administration Sodium Chloride 10 ml 11/05/18 21:00 11/06/18 11:23 Flush - Normal Saline IVF 10 ml Q12HR NEPTALI Administration - Exam ill appearing Eye: PERRL, scleral icterus ENT: normocephalic atraumatic, no oropharyngeal lesions, dry oral mucosa Neck: supple, symmetric, no JVD, no thyromegaly Neck - other findings: R IJ tunneled HD catheter in place Heart: no murmur, no rubs, normal peripheral pulses Heart - other findings: Tachycardic Respiratory: CTAB, no wheezes, rhonchi Gastrointestinal: non-distended, normal bowel sounds, no rigidity, tender to palpation, voluntary guarding Gastrointestinal - other findings: TTP diffusely, no palpable mass Extremities: 1+ LE edema Extremeties - other findings: poor turgor Skin: no rashes Neurological: CN's grossly intact Musculoskeletal: generalized weakness, diffuse muscle atrophy Psychiatric: oriented to person, somnolent, lethargic Hosp A/P (1) Abdominal pain Code(s): R10.9 - UNSPECIFIED ABDOMINAL PAIN Status: Acute Qualifiers: Abdominal location: left lower quadrant Qualified Code(s): R10.32 - Left lower quadrant pain Plan: Diffuse by exam and non-focal, likely passive congestion due to IVC thrombus, HIDA scan negative, supportive mgmt (2) Antiphospholipid syndrome Code(s): D68.61 - ANTIPHOSPHOLIPID SYNDROME Status: Chronic Plan: Chronic thrombosis, no anticoagulation since 01/13 due to renal hemorrhage, may need to reconsider given level of thrombus around IVC filter currently (3) Moderate protein-calorie malnutrition Code(s): E44.0 - MODERATE PROTEIN-CALORIE MALNUTRITION Status: Chronic Plan: Start Ensure Enlive TID (4) Anemia of renal disease Code(s): N18.9 - CHRONIC KIDNEY DISEASE, UNSPECIFIED; D63.1 - ANEMIA IN CHRONIC KIDNEY DISEASE Status: Chronic Plan: Serial H/H, consider PRBC's with next HD (5) End stage renal disease on dialysis Code(s): N18.6 - END STAGE RENAL DISEASE; Z99.2 - DEPENDENCE ON RENAL DIALYSIS Status: Chronic Plan: HD per Renal service, s/p R IJ tunneled HD catheter placement (6) Pancytopenia Code(s): D61.818 - OTHER PANCYTOPENIA Status: Chronic Plan: Serial monitoring, chronic (7) Physical deconditioning Code(s): R53.81 - OTHER MALAISE Status: Chronic Plan: PT/OT for functional assessment, likely will need SNF vs HH with PT on d/c - Plan plan discussed w/ family, continue antibiotics, 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
[2018-11-07] MEDS: Piperacillin/Tazobactam 3.375 GM in Sodium Chloride 0.9% 100 ML IVPB SCH ×2 (01:51→14:23)
[2018-11-07 05:37] LABS: #Eosinphils 0.1 thou/uL (0.0-0.7); #Lymphocytes 0.9 thou/uL (1.20-3.40); #Monocytes 0.5 thou/uL (0.11-0.59); #Neutrophils 5.8 thou/uL (1.40-6.50); %Basophils 0.1 % (0.0-1.0); %Lymphocytes 11.8 % (21.0-51.0); %Monocytes 6.7 % (0.0-10.0); %Neutrophils 80.4 % (42.0-75.0); Hemoglobin 7.6 g/dL (14.0-18.0); Mean Corpuscular HGB CONC 31.2 g/dL (32.0-36.0); Mean Corpuscular Hemoglobin 28.9 pg (27.0-31.0); Mean Corpuscular Volume 92.5 fL (78.0-98.0); Mean Platelet Volume 12.3 fL (7.4-10.4); Platelet Count 29 thou/uL (130-400); RBC Distribution Width 14.6 % (11.5-14.5); Red Blood Cell (RBC) Count 2.65 mill/uL (4.70-6.10); White Blood Cell (WBC) Count 7.2 thou/uL (4.8-10.8)
[2018-11-07 05:49] LABS: Anion Gap 16 mmol/L (10-20); BUN (Urea Nitrogen) 32 mg/dL (8.9-20.6); Calc. Creatinine Clearance 25 mL/min (70-130); Calcium 8.3 mg/dL (7.8-10.44); Carbon Dioxide 26 mmol/L (22-29); Chloride 98 mmol/L (98-107); Estimated GFR-MDRD 13; Glucose 94 mg/dL (70-105); Potassium 3.8 mmol/L (3.5-5.1); Sodium 136 mmol/L (136-145)
[2018-11-07] MEDS: OXcarbazepine 300 MG TAB PO SCH ×2 (08:47→21:12)
[2018-11-07] MEDS: Acetaminophen 325 MG TAB PO PRN (08:48)
[2018-11-07] MEDS: Polyethylene Glycol 3350 17 GM Packet PO SCH (08:48)
[2018-11-07] MEDS: Morphine 2 MG/ML SYRINGE IVP PRN ×2 (08:49→20:08)
[2018-11-07] MEDS: Docusate 100 MG CAP PO SCH ×2 (08:58→21:12)
--- NOTE | 2018-11-07 09:07 | PRG ---
DATE OF SERVICE: 11/07/2018 SUBJECTIVE: Mr. Boo is a 48-year-old white male with ESRD and followed by the Renal Service for his maintenance hemodialysis. He has been having intermittent abdominal pain. He has been followed by General Surgery. Surgery has evaluated this patient. The feeling he has no acute abdomen. HIDA scan was done yesterday as per recommendation by the GI Service. Report showed a normal hepatobiliary scan. He still has intermittent abdominal pain. OBJECTIVE: VITAL SIGNS: Blood pressure is 124/72, heart rate 108, respiratory rate 20, temperature 98.1, and pulse ox 98%. GENERAL: The patient is awake, supine, comfortable, not in overt distress. SKIN: Decreased turgor. HEENT: He has a slightly pale conjunctivae. Anicteric sclerae. NECK: No neck mass. No carotid bruits. No JVD. CHEST: No deformities. LUNGS: Clear breath sounds. HEART: Normal sinus rhythm. No murmur. No gallops. No rubs. ABDOMEN: Globular, soft, and nontender. No masses. EXTREMITIES: No edema. No deformities. MEDICATIONS: Medications of November 07, 2018, was reviewed. LABORATORY DATA: Laboratories of November 07, 2018, white count 7.2 and hemoglobin 7.6. Sodium 136, potassium 3.8, chloride 98, carbon dioxide 26, BUN 32, creatinine 4.72, and calcium 8.3. Platelet count is noted at 29,000. ASSESSMENT AND PLAN: 1. Abdominal pain - chronic in nature. Gastroenterology following. Hepatobiliary scan was negative. ? Whether he may have episodes of ischemia of the bowel. 2. End-stage renal disease, stable. We will continue current Wednesday, , and Wednesday dialysis regimen. He is tolerating said treatment. Fluid removal only as tolerated by the patient. 3. Anemia. We will continue Epogen at 10,000 units subcu weekly. Please note, I recently increased his Epogen from 7500 to 10,000 units subcu weekly. 4. Chronic thrombocytopenia. Continue to observe. Hematology is following. We will recheck CBC and basic metabolic in a.m. Job ID: [id number]
[2018-11-07] MEDS: Fludrocortisone Acetate 0.1 MG TAB PO SCH (09:24)
--- NOTE | 2018-11-07 14:19 | PRG ---
DATE OF SERVICE: 11/06/2018 SUBJECTIVE: This is a 48-year-old male with multiple medical problems including chronic renal failure, coronary artery disease, chronic abdominal pain. The patient continued to have abdominal pain. His appetite is very poor. There is no nausea, vomiting, or . The HIDA scan done today, which reveals normal HIDA scan. The ejection fraction is 73%. Pain tends to move around. Most of the time, he has pain over the left side of the abdomen and also some times has pain over the right upper quadrant. He has some cytopenia and has history of clotting disorder. The Hematology did not feel he should go on anticoagulation. CAT scan, abdominal sonogram, and HIDA scan. There is a possibly that could have some blood clots infiltration. I would recommend him to get back on anticoagulation, but the Hematology does not feel he should be on anticoagulation because of thrombocytopenia. I did talk to his and explained in length the work has been done and what has been going on. PHYSICAL EXAMINATION: GENERAL: He is a chronically ill-appearing young male, who appears comfortable today. He is in no distress. VITAL SIGNS: Afebrile, pulse 110, blood pressure 122/68. CARDIOVASCULAR AND LUNGS: Within normal limits. ABDOMEN: Soft. Abdomen is tender as before. No rebound or guarding. Bowel sounds normal. CLINICAL IMPRESSION: Chronic abdominal pain, etiology unclear. There is a possibility that could have some venous thrombosis. He does have IVC blood clot site and also what appears to be . RECOMMENDATION: 1. Continue symptomatic treatment. 2. Dr. Sandeep Fonseca will assume care from tomorrow and we will make further recommendations. Job ID: [id number]
--- NOTE | 2018-11-07 16:41 | PDOC.HOSPP ---
- Subjective Encounter Date: 11/07/18 Encounter Time: 16:35 Subjective: f/u for abd pain of unclear etiology. Sx improved in last 24h. - Objective Vital Signs & Weight: Vital Signs (12 hours) Temp Pulse Resp BP Pulse Ox 11/07/18 12:00 98.2 F 86 18 89/56 L 93 L 11/07/18 08:00 97.8 F 97 18 111/76 96 Weight Weight 198 lb 3.2 oz I&O: 11/06/18 11/07/18 11/08/18 06:59 06:59 06:59 Intake Total 440 820 150 Output Total 1095 50 Balance -655 770 150 Result Diagrams: 11/07/18 05:01 11/07/18 05:00 Additional Labs: Microbiology 11/01/18 19:23 Venous blood - Right Hand Blood Culture - Preliminary NO GROWTH AT 48 HOURS 11/01/18 18:51 Venous blood - Right Arm Blood Culture - Preliminary NO GROWTH AT 48 HOURS Laboratory Tests 10/28/18 11/01/18 11/01/18 06:27 18:51 18:51 Hgb 9.1 L Plt Count 39 L Sodium Potassium Creatinine Total Bilirubin AST ALT Alkaline Phosphatase B-Natriuretic Peptide 2784.4 H 3958.2 H Albumin 11/03/18 11/03/18 11/03/18 04:52 04:52 08:42 Hgb 10.0 L Plt Count 42 L Sodium Potassium Creatinine Total Bilirubin 2.0 H AST 184 H ALT 117 H Alkaline Phosphatase 333 H B-Natriuretic Peptide 2949.4 H Albumin 3.2 L 11/04/18 11/04/18 11/05/18 04:30 04:30 04:27 Hgb 8.9 L Plt Count 30 L Sodium 136 Potassium 3.6 Creatinine 2.89 H Total Bilirubin 1.8 H AST 109 H ALT 104 H Alkaline Phosphatase 333 H B-Natriuretic Peptide Albumin 2.5 L EKG Reviewed by me: Yes (Tele - SR) ROS - Medication Medications: Active Medications Generic Name Dose Route Start Last Admin Trade Name Freq PRN Reason Stop Dose Admin Acetaminophen 650 mg 11/02/18 00:45 11/07/18 08:48 Tylenol PO 650 mg Q4H PRN Administration Headache/Fever/Mild Pain (1-3) Docusate Sodium 100 mg 11/02/18 21:00 11/07/18 08:58 Colace PO Not Given BID [facility] Epoetin Nain-epbx 10,000 unit 11/05/18 12:00 11/05/18 14:33 Retacrit SC 10,000 unit Q7D NEPTALI Administration Fludrocortisone Acetate 0.1 mg 11/03/18 09:00 11/07/18 09:24 Florinef PO 0.1 mg DAILY NEPTALI Administration Piperacillin Sod/Tazobactam 100 mls @ 200 mls/hr 11/02/18 01:00 11/07/18 14: 23 Sod 3.375 gm/ Sodium Chloride IVPB 100 mls 0100,1300 NEPTALI Administration Morphine Sulfate 2 mg 11/02/18 20:06 11/07/18 08:49 Morphine IVP 2 mg Q4H PRN Administration Pain Ondansetron HCl 4 mg 11/02/18 00:45 11/02/18 13:28 Zofran IVP 4 mg Q6H PRN Administration Nausea/Vomiting Oxcarbazepine 600 mg 11/02/18 21:00 11/07/18 08:47 Trileptal PO 600 mg BID NEPTALI Administration Polyethylene Glycol 17 gm 11/03/18 09:00 11/07/18 08:48 Miralax PO 17 gm DAILY NEPTALI Administration Sodium Chloride 10 ml 11/05/18 21:00 11/07/18 08:48 Flush - Normal Saline IVF 10 ml Q12HR NEPTALI Administration - Exam ill appearing Eye: PERRL, anicteric sclera ENT: normocephalic atraumatic, no oropharyngeal lesions Neck: supple, symmetric, no JVD, no thyromegaly Heart: RRR, no gallops, no rubs Respiratory: CTAB, no wheezes, no rales, no ronchi Extremities: no cyanosis, 1+ LE edema Skin: normal turgor, no lesions Neurological: CN's grossly intact, no new deficit Musculoskeletal: generalized weakness, diffuse muscle atrophy Psychiatric: oriented to person, somnolent, lethargic Hosp A/P (1) Abdominal pain Code(s): R10.9 - UNSPECIFIED ABDOMINAL PAIN Status: Acute Qualifiers: Abdominal location: left lower quadrant Qualified Code(s): R10.32 - Left lower quadrant pain Plan: Improved currently, continue supportive mgmt, pain control as clinically indicated (2) Antiphospholipid syndrome Code(s): D68.61 - ANTIPHOSPHOLIPID SYNDROME Status: Chronic Plan: No anticoagulation due to thrombocytopenia and risk of bleeding (3) Moderate protein-calorie malnutrition Code(s): E44.0 - MODERATE PROTEIN-CALORIE MALNUTRITION Status: Chronic Plan: Continue Ensure High Protein TID (4) Anemia of renal disease Code(s): N18.9 - CHRONIC KIDNEY DISEASE, UNSPECIFIED; D63.1 - ANEMIA IN CHRONIC KIDNEY DISEASE Status: Chronic Plan: Continue Epo, serial H/H, transfuse PRN with HD (5) End stage renal disease on dialysis Code(s): N18.6 - END STAGE RENAL DISEASE; Z99.2 - DEPENDENCE ON RENAL DIALYSIS Status: Chronic Plan: HD per Renal service (6) Pancytopenia Code(s): D61.818 - OTHER PANCYTOPENIA Status: Chronic (7) Physical deconditioning Code(s): R53.81 - OTHER MALAISE Status: Chronic - Plan continue antibiotics, PT/OT, clinical social worker, speech therapy, respiratory therapy, DVT proph w/SCDs Consults: Palliative Care Continue supportive mgmt Appreciate Vasc Surgery assistance PT/OT for mobilization Palliative care consult HD per Renal service Continue Vanc/Zosyn another 24h then de-escalate AM lab: BMP, CBC, LFT's
[2018-11-08] MEDS: Piperacillin/Tazobactam 3.375 GM in Sodium Chloride 0.9% 100 ML IVPB SCH ×3 (02:11→23:40)
[2018-11-08 05:28] LABS: #Eosinphils 0.1 thou/uL (0.0-0.7); #Lymphocytes 0.6 thou/uL (1.20-3.40); #Monocytes 0.5 thou/uL (0.11-0.59); #Neutrophils 5.9 thou/uL (1.40-6.50); %Basophils 0.2 % (0.0-1.0); %Eosinophils 1.6 % (0.0-10.0); %Monocytes 6.4 % (0.0-10.0); %Neutrophils 82.8 % (42.0-75.0); Hemoglobin 7.8 g/dL (14.0-18.0); Mean Corpuscular Hemoglobin 29.7 pg (27.0-31.0); Mean Corpuscular Volume 92.8 fL (78.0-98.0); Mean Platelet Volume 12.9 fL (7.4-10.4); Platelet Count 33 thou/uL (130-400); Red Blood Cell (RBC) Count 2.62 mill/uL (4.70-6.10); White Blood Cell (WBC) Count 7.1 thou/uL (4.8-10.8)
[2018-11-08 05:37] LABS: Anion Gap 18 mmol/L (10-20); BUN (Urea Nitrogen) 44 mg/dL (8.9-20.6); Calc. Creatinine Clearance 21 mL/min (70-130); Calcium 8.2 mg/dL (7.8-10.44); Carbon Dioxide 25 mmol/L (22-29); Chloride 98 mmol/L (98-107); Estimated GFR-MDRD 11; Glucose 99 mg/dL (70-105); Potassium 3.8 mmol/L (3.5-5.1); Sodium 137 mmol/L (136-145)
[2018-11-08 05:38] LABS: ALT (SGPT) 93 U/L (8-55); AST (SGOT) 125 U/L (5-34); Albumin 2.5 g/dL (3.5-5.0); Alkaline Phosphatase 455 U/L (40-150); Bilirubin, Direct 1.8 mg/dL (0.1-0.3); Bilirubin, Total 2.1 mg/dL (0.2-1.2)
[2018-11-08 07:24] LABS: Vancomycin, Random 1.2 ug/mL (See Comment)
--- NOTE | 2018-11-08 08:37 | PRG ---
DATE OF SERVICE: 11/08/2018 SUBJECTIVE: Mr. Boo is a 48-year-old white male with ESRD and followed up by the Renal Service for his maintenance hemodialysis. He is tolerating his current dialysis regimen. I have scheduled patient for another regular dialysis today. Due to his decreased p.o. intake, we will do minimal fluid removal or only remove fluid as tolerated. Due to the complaint of abdominal pain as well as nausea with this patient, he underwent a HIDA scan, which essentially showed negative findings. His dialysis catheter has also been changed due to the initial presentation of fever and possibility of line infection. Subsequent blood culture was essentially no growth to date. No new complaints today. He still feels tired. OBJECTIVE: VITAL SIGNS: Blood pressure 113/67, heart rate 97, respiratory rate 22, temperature 98, and pulse oximetry 97%. GENERAL: Noted to be awake, supine, comfortable, not in overt distress. SKIN: Adequate turgor. HEENT: He has pale conjunctivae. Anicteric sclerae. NECK: No neck mass. No carotid bruits. No JVD. CHEST: No deformities. LUNGS: Clear breath sounds. No wheezing. No crackles. HEART: Normal sinus rhythm. No murmur. No gallops or rubs. ABDOMEN: Globular, soft, nontender. No masses. EXTREMITIES: No edema. No deformities. MEDICATIONS: Medications of November 08, 2018, was reviewed. LABORATORY DATA: Of November 08, 2018, white count 7.1, hemoglobin 7.8, sodium 137, potassium 3.8, chloride 98, carbon dioxide 25, BUN 44, creatinine 5.43, glucose 99, and calcium 8.2. AST 125, ALT is 93, alkaline phosphatase is 455, albumin is 2.5. ASSESSMENT AND PLAN: 1. End-stage renal disease, stable. We will continue current hemodialysis regimen. Fluid removal only as tolerated. 2. Chronic thrombocytopenia - stable. Hematology is following. 3. Anemia, continuing weekly [place]ogen[place] [address] units subcutaneous every week. 4. Fever, resolved. 5. Elevated liver function tests, stable - not worsening. Previous imaging of the liver suggests presence of steatosis. Supportive care. Overall, agree with current management. Job ID: [id number]
[2018-11-08] MEDS ORDERED: Mineral Oil ENEMA PR SCH (09:00)
[2018-11-08] MEDS: Docusate 100 MG CAP PO SCH ×2 (09:08→23:37)
[2018-11-08] MEDS: OXcarbazepine 300 MG TAB PO SCH ×3 (09:08→23:38)
[2018-11-08] MEDS: Polyethylene Glycol 3350 17 GM Packet PO SCH ×2 (09:09→23:39)
[2018-11-08] MEDS: Fludrocortisone Acetate 0.1 MG TAB PO SCH (09:50)
--- NOTE | 2018-11-08 10:55 | PRG ---
DATE OF SERVICE: 11/07/2018 REASON FOR CONSULTATION: Abdominal pain. SUBJECTIVE: The patient continues to complain of right upper quadrant/midepigastric abdominal pain that he could not quantify or further describe during the course of this interview. In fact, during the course of the interview, the patient exhibited episodes where he would not answer at all unless specifically addressed by his first name. He currently denies any nausea, vomiting, fevers, chills, dysphagia, odynophagia, or dizziness. Per nursing staff, he had not had a bowel movement until earlier today, but the bowel movement earlier today was smaller in volume and hard in consistency. OBJECTIVE: VITAL SIGNS: Temperature 98.1, pulse 81, blood pressure 102/64, respiratory rate 18, saturating 93% on room air. GENERAL: The patient is lying in bed, in mild distress. Alert and oriented x2. CARDIOVASCULAR: Tachycardic rate, but regular rhythm. RESPIRATORY: Clear to auscultation bilaterally. ABDOMEN: Hypoactive bowel sounds. Soft, nondistended. Tenderness to palpation in the right upper quadrant, although I could not reproduce the tenderness on repeat exam. EXTREMITIES: No cyanosis, clubbing, or edema. LABORATORY DATA: CBC with a white blood cell count of 7.2, hemoglobin 7.6, hematocrit 24.5, platelets 29. Chemistry with a sodium of 136, potassium 3.8, chloride 98, CO2 of 26, BUN 32, creatinine 4.72, glucose 94. IMAGING DATA: HIDA scan obtained on November 06, 2018, was normal without any abnormalities and calculated ejection fraction of the gallbladder at 73%. ASSESSMENT AND PLAN: The patient is a 48-year-old male with past medical history of hypertension, gout, antiphospholipid syndrome with deep vein thromboses and pulmonary emboli, end-stage renal disease on hemodialysis, atrial fibrillation, seizure disorder, anemia of chronic kidney disease, and coronary artery disease, presenting with midepigastric abdominal pain and transaminitis. Midepigastric abdominal pain. The patient was recently admitted to the hospital with complaints of left lower quadrant abdominal pain that improved significantly shortly after admission and resolved with the patient having a bowel movement that required manual disimpaction in order to facilitate. He was home for approximately 1 to 2 days, when he came back in with increased abdominal pain located now in the midepigastric and right upper quadrant. Based on the right upper quadrant ultrasound that was obtained during the last admission (for evaluation of portal vein thrombosis), there was some mention of thickening of the gallbladder wall that was concerning for cholecystitis, but HIDA scan obtained during this admission was negative for abnormalities making this diagnosis much less likely. However, on this admission, he was also noted to have a significantly elevated BNP indicative of hypervolemia related to his congestive heart failure with his already diminished ejection fraction and hypervolemia associated with this, it could result in decreased low blood flow to both the liver and the mesentery resulting in mesenteric ischemia as well as ischemia to the liver itself resulting in both his transaminitis and the abdominal pain that he is experiencing. He has also not had a bowel movement since admission, except for small volume solid stool earlier today with constipation on the differential list in terms of what is causing his abdominal pain at the current time. RECOMMENDATIONS: 1. Would continue patient on MiraLAX daily, but also consider the administration of an enema to break apart any solid stool plug as well as the addition of naloxegol to reverse the effects of any opiates causing constipation and further contributing to his symptoms. 2. Would defer to primary team for pain control. 3. Would consider restarting the patient's anticoagulation in light of possible mesenteric ischemia contributing to his current clinical situation. 4. No endoscopic evaluation is indicated at this time. We will continue to follow. Please call with any questions. Job ID: [id number]
--- NOTE | 2018-11-08 11:00 | PDOC.HOSPP ---
- Subjective Encounter Date: 11/08/18 Encounter Time: 10:40 Subjective: f/u for persistent weakness, AMS and nursing noted LUE weakness. Was more verbal in last 24h but has intermittent episodes of lucidity. Has not ambulated since admission. - Objective Vital Signs & Weight: Vital Signs (12 hours) Temp Pulse Resp BP Pulse Ox 11/08/18 08:00 98.7 F 97 18 118/71 93 L 11/08/18 04:00 98.0 F 97 22 H 113/67 97 11/08/18 00:00 101 H 109/66 Weight Weight 200 lb 1.6 oz I&O: 11/07/18 11/08/18 11/09/18 06:59 06:59 06:59 Intake Total 820 630 Output Total 50 Balance 770 630 Result Diagrams: 11/08/18 04:54 11/08/18 04:53 Additional Labs: Microbiology 11/01/18 19:23 Venous blood - Right Hand Blood Culture - Preliminary NO GROWTH AT 48 HOURS 11/01/18 18:51 Venous blood - Right Arm Blood Culture - Preliminary NO GROWTH AT 48 HOURS Laboratory Tests 10/28/18 11/01/18 11/01/18 06:27 18:51 18:51 Hgb 9.1 L Plt Count 39 L Sodium Potassium Creatinine Total Bilirubin AST ALT Alkaline Phosphatase B-Natriuretic Peptide 2784.4 H 3958.2 H Albumin 11/03/18 11/03/18 11/03/18 04:52 04:52 08:42 Hgb 10.0 L Plt Count 42 L Sodium Potassium Creatinine Total Bilirubin 2.0 H AST 184 H ALT 117 H Alkaline Phosphatase 333 H B-Natriuretic Peptide 2949.4 H Albumin 3.2 L 11/04/18 11/04/18 11/05/18 04:30 04:30 04:27 Hgb 8.9 L Plt Count 30 L Sodium 136 Potassium 3.6 Creatinine 2.89 H Total Bilirubin 1.8 H AST 109 H ALT 104 H Alkaline Phosphatase 333 H B-Natriuretic Peptide Albumin 2.5 L Radiology Reviewed by me: Yes (CT brain - pending) EKG Reviewed by me: Yes (Tele - SR with PVC's) ROS - Medication Medications: Active Medications Generic Name Dose Route Start Last Admin Trade Name Freq PRN Reason Stop Dose Admin Acetaminophen 650 mg 11/02/18 00:45 11/07/18 08:48 Tylenol PO 650 mg Q4H PRN Administration Headache/Fever/Mild Pain (1-3) Docusate Sodium 100 mg 11/02/18 21:00 11/08/18 09:08 Colace PO 100 mg BID NEPTALI Administration Epoetin Nain-epbx 10,000 unit 11/05/18 12:00 11/05/18 14:33 Retacrit SC 10,000 unit Q7D NEPTALI Administration Fludrocortisone Acetate 0.1 mg 11/03/18 09:00 11/08/18 09:50 Florinef PO 0.1 mg DAILY NEPTALI Administration Piperacillin Sod/Tazobactam 100 mls @ 200 mls/hr 11/02/18 01:00 11/08/18 02: 11 Sod 3.375 gm/ Sodium Chloride IVPB 100 mls 0100,1300 NEPTALI Administration Mineral Oil 133 ml 11/08/18 09:00 11/08/18 09:10 Fleet Mineral Oil PA 11/08/18 11:00 Not Given 0900 [facility] Miscellaneous Medication 12.5 mg 11/08/18 07:30 11/08/18 09:09 Movantik PO 12.5 mg DAILY-AC NEPTALI Administration Ondansetron HCl 4 mg 11/02/18 00:45 11/02/18 13:28 Zofran IVP 4 mg Q6H PRN Administration Nausea/Vomiting Oxcarbazepine 600 mg 11/02/18 21:00 11/08/18 09:08 Trileptal PO 600 mg BID NEPTALI Administration Polyethylene Glycol 17 gm 11/08/18 09:00 11/08/18 09:09 Miralax PO 17 gm BID NEPTALI Administration Sodium Chloride 10 ml 11/05/18 21:00 11/08/18 09:10 Flush - Normal Saline IVF 10 ml Q12HR NEPTALI Administration - Exam NAD, awake alert Eye: PERRL, anicteric sclera ENT: normocephalic atraumatic, no oropharyngeal lesions Neck: supple, symmetric, no JVD, no thyromegaly, no lymphadenopathy Respiratory: CTAB, no wheezes, no rales, no ronchi Gastrointestinal: soft, non-tender, non-distended, normal bowel sounds, no palpable masses Extremities: no cyanosis, no edema Skin: normal turgor Neurological - other findings: LUE weakness, R-hand dominant, moves extremities to command Musculoskeletal: generalized weakness Psychiatric: oriented to person, lethargic Hosp A/P (1) Encephalopathy acute Code(s): G93.40 - ENCEPHALOPATHY, UNSPECIFIED Status: Acute Plan: Likely metabolic etiology, check CT brain today, Neurology consult, ? subclinical seizures, avoid psychotropic and sedating medications, ? Uremic influence (2) Abdominal pain Code(s): R10.9 - UNSPECIFIED ABDOMINAL PAIN Status: Acute Qualifiers: Abdominal location: left lower quadrant Qualified Code(s): R10.32 - Left lower quadrant pain Plan: Improved currently, continue serial monitoring (3) Antiphospholipid syndrome Code(s): D68.61 - ANTIPHOSPHOLIPID SYNDROME Status: Chronic (4) Moderate protein-calorie malnutrition Code(s): E44.0 - MODERATE PROTEIN-CALORIE MALNUTRITION Status: Chronic Plan: Continue Ensure TID (5) Anemia of renal disease Code(s): N18.9 - CHRONIC KIDNEY DISEASE, UNSPECIFIED; D63.1 - ANEMIA IN CHRONIC KIDNEY DISEASE Status: Chronic (6) End stage renal disease on dialysis Code(s): N18.6 - END STAGE RENAL DISEASE; Z99.2 - DEPENDENCE ON RENAL DIALYSIS Status: Chronic Plan: HD per Renal service (7) Pancytopenia Code(s): D61.818 - OTHER PANCYTOPENIA Status: Chronic (8) Physical deconditioning Code(s): R53.81 - OTHER MALAISE Status: Chronic Plan: PT evaluation for functional assessment, consider SNF options - Plan continue antibiotics, PT/OT, social work administrator, respiratory therapy Continue supportive mgmt Appreciate Vasc Surgery assistance PT/OT for mobilization Palliative care consult HD per Renal service Continue Vanc/Zosyn another 24h then de-escalate Check CT brain PT for mobilization CM for SNF options AM lab: CMP, CBC
--- NOTE | 2018-11-08 11:35 | CT ---
CT BRAIN WITHOUT CONTRAST: HISTORY: Left upper extremity weakness, altered mental status COMPARISON: 05/14/2018. FINDINGS: Postop changes in the right middle cranial fossa and right cranium are stable. The ventricular size i s unchanged. 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 No evidence of acute infarct, hemorrhage, midline shift or abnormal extra-axial fluid collections is seen. The basilar cis terns are patent. The visualized paranasal sinuses are clear. IMPRESSION: No CT evidence of acute intracranial process.
[2018-11-08] MEDS ORDERED: Heparin 10,000 UNITS/ 10 ML VIAL ONE (14:00)
[2018-11-08] MEDS: Acetaminophen 325 MG TAB PO PRN ×2 (15:31→19:58)
--- NOTE | 2018-11-08 21:46 | CON ---
DATE OF CONSULTATION: 11/08/2018 CONSULTING PHYSICIAN: Hospitalist Services. IMPRESSION: 1. Recurrent seizures. 2. History of temporal lobectomy for surgical management of prior seizures. 3. Renal insufficiency. 4. Cognitive impairment, which apparently is chronic. PLAN: Increase Trileptal to 900 mg twice a day. HISTORY OF PRESENT ILLNESS: Mr. Boo is a 48-year-old man with a reported history of epilepsy. His reports that he has been cared for at home with home health assistance. His seizures had been under control for several years. He apparently has had some recurrent seizures over the recent past. It is unclear as to who was managing his seizure medication. He came in on Trileptal 600 mg twice daily. Apparently, his last seizure was 4 days ago. Normally, he is minimally oriented according to what the nurses can tell me. He is unable to give me any type of a history as to his current situation. He was noted to be in some degree of fluid overload and renal insufficiency. His liver enzymes are elevated, but his ammonia level is normal. He has not had any witnessed seizures in the last few days from what the nurses can tell me. PAST MEDICAL HISTORY: As listed above. ALLERGIES: 1. DILANTIN. MEDICATION: Medication list was reviewed. FAMILY HISTORY: Unobtainable. REVIEW OF SYSTEMS: Unobtainable due to his cognitive state. PHYSICAL EXAMINATION: VITAL SIGNS: Blood pressure 77/53, pulse 88, respirations 18, temperature 97.7. HEENT: Pupils are equal. Conjunctivae clear. Mucous membranes are dry. Cranium, normocephalic and atraumatic. NECK: No lymphadenopathy. EXTREMITIES: No cyanosis, minimal edema. NEUROLOGIC: He was awake and relatively attended to my questions. He was unable to answer any question as to his orientation and past history and answered everything with "I do not know." His speech otherwise seemed to be without any dysarthria. There was no facial asymmetry noted. He had what appeared to be equal upper and lower extremity movement, could not get him to follow formal rapid alternating type movement commands. Sensation was intact to touch. No abnormal movements were seen. Gait was not testable. LABORATORY STUDIES: White blood cell count 7.1, hemoglobin 7.8. INR 1.4. BUN 44, creatinine 5.43, AST 125, ALT 93. IMAGING: CT of the brain was reviewed showing area of encephalomalacia involving the right temporal lobe. SUMMARY: This is a middle-aged man who has a history of seizure. He is also in renal failure. He has had some breakthrough seizures despite his current Trileptal dose. I will make an adjustment and see how he responds. Job ID: [id number] [facility]
[2018-11-09 04:49] LABS: Hemoglobin 8.7 g/dL (14.0-18.0); Mean Corpuscular HGB CONC 32.1 g/dL (32.0-36.0); Mean Corpuscular Volume 93.4 fL (78.0-98.0); Mean Platelet Volume 13.6 fL (7.4-10.4); Platelet Count 29 thou/uL (130-400); RBC Distribution Width 14.7 % (11.5-14.5); Red Blood Cell (RBC) Count 2.88 mill/uL (4.70-6.10); White Blood Cell (WBC) Count 5.2 thou/uL (4.8-10.8)
[2018-11-09 04:50] LABS: Band 1 % (5-11); Lymphocytes 12 % (21-51); MDiff Complete? YES; Monocytes 5 % (0-10); Neutrophil 82 % (42-75); Platelet Morphology Comment Appears Decreased
[2018-11-09 05:08] LABS: ALT (SGPT) 72 U/L (8-55); AST (SGOT) 78 U/L (5-34); Albumin 2.6 g/dL (3.5-5.0); Alkaline Phosphatase 524 U/L (40-150); Anion Gap 16 mmol/L (10-20); BUN (Urea Nitrogen) 27 mg/dL (8.9-20.6); Bilirubin, Total 1.8 mg/dL (0.2-1.2); Calc. Creatinine Clearance 32 mL/min (70-130); Calcium 8.2 mg/dL (7.8-10.44); Carbon Dioxide 26 mmol/L (22-29); Chloride 98 mmol/L (98-107); Estimated GFR-MDRD 18; Globulin 3.5 g/dL (2.4-3.5); Glucose 87 mg/dL (70-105); Potassium 3.7 mmol/L (3.5-5.1); Protein, Total 6.1 g/dL (6.0-8.3); Sodium 136 mmol/L (136-145)
--- NOTE | 2018-11-09 09:14 | PRG ---
DATE OF SERVICE: 11/09/2018 SUBJECTIVE: Mr. Boo is a 48-year-old white male, who was initially admitted for fever. The feeling was that this could be related for a possible line infection. He was empirically treated with IV antibiotics and his dialysis catheter was changed. He is currently undergoing extra dialysis today. There was an issue whether he maybe uremic. The patient will undergo a short 2-hour hemodialysis as extra treatment today. Minimal fluid removal due to the low blood pressure. No complaints of chest pain or shortness of breath. OBJECTIVE: VITAL SIGNS: Blood pressure 98/56, heart rate 69, respiratory rate 18, temperature 97.9, pulse ox 94%. GENERAL: He is awake, occasionally confused, but not in distress. SKIN: Adequate turgor. HEENT: He has slightly pale conjunctivae. Anicteric sclerae. NECK: No neck mass. No carotid bruits. No JVD. CHEST: No deformities. LUNGS: Clear breath sounds. HEART: Normal sinus rhythm. No murmur. No gallops. No rubs. ABDOMEN: Globular, soft, nontender. No masses. EXTREMITIES: No edema. No deformities. MEDICATIONS: Medications of November 09, 2018, reviewed. LABORATORY DATA: Laboratories of November 09, 2018; white count 5.2, hemoglobin 8.7. Sodium 136, potassium 3.7, chloride 98, carbon dioxide 26, BUN 27, creatinine 3.6. AST 78, ALT 72. Albumin 2.6. ASSESSMENT AND PLAN: 1. End-stage renal disease, stable, doing extra hemodialysis for 2 hours due to ? of uremia. He seems to be mentating at baseline at the present time. We will then resume back his regular dialysis tomorrow. 2. End-stage renal disease-overall doing well. Continue hemodialysis regimen. Attempted to use AV fistula, but this was not successful. Continue to use dialysis catheter. 3. Fever-resolved secondary to a possible line infection. On IV antibiotics. 4. Anemia. Continuing weekly Epogen. 5. Depression. Zoloft 50 mg tablet once a day was started with the patient. 6. Recheck basic metabolic profile and CBC in a.m. Job ID: [id number]
[2018-11-09 10:03] LABS: Vancomycin, Random 12.2 ug/mL (See Comment)
[2018-11-09] MEDS: OXcarbazepine 300 MG TAB PO SCH ×4 (10:10→20:32)
[2018-11-09] MEDS: Fludrocortisone Acetate 0.1 MG TAB PO SCH ×2 (10:10→13:58)
[2018-11-09] MEDS: Polyethylene Glycol 3350 17 GM Packet PO SCH ×2 (10:11→20:31)
[2018-11-09] MEDS ORDERED: Heparin 10,000 UNITS/ 10 ML VIAL ONE (11:11)
--- NOTE | 2018-11-09 13:21 | PDOC.PALCO ---
Palliative Care Consult - Consult Details Requesting Physician: Dr Nolasco Reason for Consult: goals of care Family Members Present: none - Pertinent HPI 48 year old male who has chronic disease processes that presented to emergency room for febrile episode. Admitted after evaluation identified pneumonia and dialysis catheter infection. - Pertinent PMH Antiphospholipid syndrome, thrombocytopenia, Seizure disorder, end-stage renal disease, hypertension, atrial fibrillation, cardiomyopathy, depression, bilateral DVTs, Pulmonary embolism - Social History Smoking Status: Never smoker Smoking: no tobacco exposure Alcohol Use: none Drug Use History: none Living Situation: - Medications MAR Reviewed: Yes - Allergies Allergies/Adverse Reactions: Allergies Allergy/AdvReac Type Severity Reaction Status Date / Time phenytoin sodium Allergy Severe Emesis Verified 11/02/18 00:52 [From Dilantin] phenytoin sodium extended Allergy Severe Emesis Verified 11/02/18 00:52 [From Dilantin] midazolam HCl [From Versed] Allergy Intermediate swelling Verified 11/02/18 00: 52 amiodarone AdvReac N/V Verified 10/28/18 10:20 - Subjective Awake and alert today, flat affect. Chronically ill appearing, lethargy. Stephanie main concern is finding his phone which he "lost" assisted and phone ws located in the bed, states he "does not remember how to use it". Complains of pain "all over". All other systems are negative for complaints. - Objective Vital Signs: Vital Signs - Most Recent Temp Pulse Resp BP Pulse Ox 98.2 F 94 16 97/55 L 96 11/09/18 12:09 11/09/18 12:09 11/09/18 12:09 11/09/18 12:09 11/09/18 12:09 Palliative Performance Scale: 40 - Physical Exam Constitutional: confusion Deviation from normal: cachetic, chronically ill appearing HEENT: moist MMs, sclera anicteric, EOMI Respiratory: unlabored breathing Cardiovascular: RRR Gastrointestinal: soft, non-tender, positive bowel sounds Musculoskeletal: edema present Deviation from normal: non pitting to lower extremities Neurological: moves all 4 limbs Deviation from normal: Flat affect - Problem List (1) Palliative care encounter Code(s): Z51.5 - ENCOUNTER FOR PALLIATIVE CARE Current Visit: Yes Status: Acute (2) Acute on chronic systolic heart failure, NYHA class 3 Code(s): I50.23 - ACUTE ON CHRONIC SYSTOLIC (CONGESTIVE) HEART FAILURE Current Visit: Yes Status: Acute (3) Moderate protein-calorie malnutrition Code(s): E44.0 - MODERATE PROTEIN-CALORIE MALNUTRITION Current Visit: Yes Status: Chronic (4) Anemia of renal disease Code(s): N18.9 - CHRONIC KIDNEY DISEASE, UNSPECIFIED; D63.1 - ANEMIA IN CHRONIC KIDNEY DISEASE Current Visit: No Status: Chronic (5) Physical deconditioning Code(s): R53.81 - OTHER MALAISE Current Visit: No Status: Chronic - Plan/Recommendations Plan: Difficult to have conversation today with patient secondary to lethargy and inability to follow with conversation. Short attention span. Juju Schultz RN following patient and has had several conversations with the to determine goals of care and support of patient. concerned about IVC filter/Juju Schultz assisting in addressing Increase in altered mental status from previous baseline/continue to support and patient [50] minutes spent on this encounter with >50% of the time in counseling and coordination of care. Thank you for this very appropriate consult.
--- NOTE | 2018-11-09 13:28 | PDOC.HOSPP ---
- Subjective Encounter Date: 11/09/18 Encounter Time: 09:00 Subjective: Patient seen and examined. No new complaints. No overnight events - Objective Vital Signs & Weight: Vital Signs (12 hours) Temp Pulse Resp BP Pulse Ox 11/09/18 12:09 98.2 F 94 16 97/55 L 96 11/09/18 08:23 97.9 F 69 18 98/56 L 94 L 11/09/18 08:00 94 L 11/09/18 03:40 97.6 F 87 18 98/64 95 11/09/18 03:34 97.8 F 86 18 114/68 98 Weight Weight 196 lb 6.4 oz I&O: 11/08/18 11/09/18 11/10/18 06:59 06:59 06:59 Intake Total 630 1290 Balance 630 1290 Result Diagrams: 11/09/18 04:33 11/09/18 04:33 EKG Reviewed by me: Yes ROS - Review of Systems ROS unobtainable: due to mental status - Medication Medications: Active Medications Generic Name Dose Route Start Last Admin Trade Name Freq PRN Reason Stop Dose Admin Acetaminophen 650 mg 11/02/18 00:45 11/08/18 19:58 Tylenol PO 650 mg Q4H PRN Administration Headache/Fever/Mild Pain (1-3) Docusate Sodium 100 mg 11/02/18 21:00 11/08/18 23:37 Colace PO 100 mg BID NEPTALI Administration Epoetin Nain-epbx 10,000 unit 11/05/18 12:00 11/05/18 14:33 Retacrit SC 10,000 unit Q7D NEPTALI Administration Fludrocortisone Acetate 0.1 mg 11/03/18 09:00 11/08/18 09:50 Florinef PO 0.1 mg DAILY NEPTALI Administration Piperacillin Sod/Tazobactam 100 mls @ 200 mls/hr 11/02/18 01:00 11/08/18 23: 40 Sod 3.375 gm/ Sodium Chloride IVPB 100 mls 0100,1300 NEPTALI Administration Vancomycin HCl 750 mg/ Sodium 250 mls @ 250 mls/hr 11/02/18 00:45 11/09/18 10 :42 Chloride IVPB 250 mls WILLCALL NEPTALI Administration Miscellaneous Medication 12.5 mg 11/08/18 07:30 11/09/18 10:10 Movantik PO Not Given DAILY-AC NEPTALI Ondansetron HCl 4 mg 11/02/18 00:45 11/02/18 13:28 Zofran IVP 4 mg Q6H PRN Administration Nausea/Vomiting Oxcarbazepine 600 mg 11/02/18 21:00 11/09/18 10:10 Trileptal PO Not Given BID NEPTALI Oxcarbazepine 900 mg 11/08/18 21:00 11/08/18 23:38 Trileptal PO 900 mg BID NEPTALI Administration Polyethylene Glycol 17 gm 11/08/18 09:00 11/09/18 10:11 Miralax PO Not Given BID NEPTALI Sodium Chloride 10 ml 11/05/18 21:00 11/09/18 10:11 Flush - Normal Saline IVF Not Given Q12HR NEPTALI - Exam ill appearing Eye: PERRL, anicteric sclera ENT: normocephalic atraumatic, no oropharyngeal lesions Neck: supple, symmetric Heart: no murmur, irregular Respiratory: no wheezes, no rales Gastrointestinal: soft, non-tender, non-distended Extremities: no cyanosis, no clubbing Skin: normal turgor, no lesions Neurological: no focal deficits Musculoskeletal: generalized weakness Psychiatric: not oriented Hosp A/P (1) Encephalopathy acute Code(s): G93.40 - ENCEPHALOPATHY, UNSPECIFIED Status: Acute (2) Moderate protein-calorie malnutrition Code(s): E44.0 - MODERATE PROTEIN-CALORIE MALNUTRITION Status: Chronic (3) Anemia of renal disease Code(s): N18.9 - CHRONIC KIDNEY DISEASE, UNSPECIFIED; D63.1 - ANEMIA IN CHRONIC KIDNEY DISEASE Status: Chronic (4) Antiphospholipid syndrome Code(s): D68.61 - ANTIPHOSPHOLIPID SYNDROME Status: Chronic (5) Atrial fibrillation Code(s): I48.91 - UNSPECIFIED ATRIAL FIBRILLATION Status: Chronic Qualifiers: Atrial fibrillation type: paroxysmal Qualified Code(s): I48.0 - Paroxysmal atrial fibrillation (6) CAD (coronary artery disease) Code(s): I25.10 - ATHSCL HEART DISEASE OF [place] CORONARY ARTERY W/O ANG PCTRS Status: Chronic Qualifiers: Coronary Disease-Associated Artery/Lesion type: [place] artery [place] vs. transplanted heart: [place] heart (7) End stage renal disease on dialysis Code(s): N18.6 - END STAGE RENAL DISEASE; Z99.2 - DEPENDENCE ON RENAL DIALYSIS Status: Chronic (8) Gout Code(s): M10.9 - GOUT, UNSPECIFIED Status: Chronic Qualifiers: Gout site: unspecified site Gout etiology: unspecified cause (9) HTN (hypertension) Code(s): I10 - ESSENTIAL (PRIMARY) HYPERTENSION Status: Chronic Qualifiers: (10) History of pulmonary embolism Code(s): Z86.711 - PERSONAL HISTORY OF PULMONARY EMBOLISM Status: Chronic (11) Nonischemic cardiomyopathy Code(s): I42.8 - OTHER CARDIOMYOPATHIES Status: Chronic (12) Physical deconditioning Code(s): R53.81 - OTHER MALAISE Status: Chronic (13) Seizure disorder Code(s): G40.909 - EPILEPSY, UNSP, NOT INTRACTABLE, WITHOUT STATUS EPILEPTICUS Status: Chronic (14) Thrombocytopenia Code(s): D69.6 - THROMBOCYTOPENIA, UNSPECIFIED Status: Chronic - Plan old records reviewed/req, social work specialist prognosis is very poor continue to supportive care HD as per nephrology will need placement high risk for recurrent admission nothing to add more at this time heart rate faster, so digoxin one time will be given
[2018-11-09] MEDS ORDERED: Digoxin 0.5 MG/2 ML AMP SLOW IVP SCH ×2 (13:30→15:45)
[2018-11-09] MEDS: Piperacillin/Tazobactam 3.375 GM in Sodium Chloride 0.9% 100 ML IVPB SCH (13:44)
[2018-11-09] MEDS: Acetaminophen 325 MG TAB PO PRN (13:45)
[2018-11-09] MEDS ORDERED: Sodium Chloride 0.9% 500 ML IV SCH ×2 (15:45→18:15)
--- NOTE | 2018-11-09 17:30 | PDOC.EVN ---
Event Note - Event Note Event Note: pt is still having afib with RVR, even after giving 2 dose of digoxin 0.25 mg IV and 500 ml IV NS, pt's BP is low so cardizem is not a option, will transfer him to [facility] for close monitoring tonight and consult cardiology to assist with controlling his rate.
--- NOTE | 2018-11-09 18:49 | CON ---
DATE OF CONSULTATION: REASON FOR CONSULTATION: Hypotension and atrial fibrillation. HISTORY OF PRESENT ILLNESS: Mr. Boo is an unfortunate 48-year-old gentleman with multiple comorbidities, who is a patient of Dr. Zane Jefferson. He initially presented with cough. I was called to Mr. Boo's bedside due to hypotension and atrial fibrillation. Heart rate has been in the 120s to 130s. He also became hypotensive with blood pressure in the 80s. He did receive dialysis this morning. Mr. Boo has no recollection of dialysis. When asked about how he is feeling, he states not good, but cannot be specific. He is a very poor historian. PAST MEDICAL HISTORY: Seizure disorder, antiphospholipid antibody syndrome, thrombocytopenia, atrial fibrillation, end-stage renal disease, cardiomyopathy, and AICD placement. HOME MEDICATIONS: Tegretol and fludrocortisone. ALLERGIES: PHENYTOIN AND VERSED. SOCIAL HISTORY: No current tobacco or alcohol use. REVIEW OF SYMPTOMS: A Ten-point review of systems is reviewed and as above, otherwise negative. PHYSICAL EXAMINATION: GENERAL: He does appear disheveled and unkept. VITAL SIGNS: Blood pressure 89/52, pulse 136, and temperature 97.7. NEUROLOGIC: The patient is alert and oriented x3 with no focal neurologic deficits. HEENT: Sclerae without icterus. Mouth has moist mucous membranes with normal pallor. NECK: No JVD. Carotid upstroke brisk. No bruits bilaterally. LUNGS: Clear to auscultation with unlabored respirations. BACK: No scoliosis or kyphosis. CARDIAC: Irregularly regular, tachycardic. ABDOMEN: Soft, nontender, nondistended. No peritoneal signs present. No hepatosplenomegaly. No abnormal striae. EXTREMITIES: 1 to 2+ pitting edema. SKIN: No gross abnormalities. PERTINENT LABORATORY DATA: Include a hemoglobin of 8.7, white blood cell count 5.2, and platelet count 29,000. Creatinine 3.60. Sodium 136, potassium 3.7, and chloride 98. IMPRESSION: 1. Hypotension. 2. Chronic atrial fibrillation. 3. Thrombocytopenia. 4. End-stage renal disease. RECOMMENDATIONS: The patient will be moved the MICU. I would recommend an additional 500 mL bolus of fluid. He has received IV digoxin. His blood pressure seems to be too unstable for digoxin. He has received Florinef in the past, I am assuming for hypotension. He is on 0.1 mg p.o. every morning of Florinef. We will follow closely with you. Job ID: [id number]
[2018-11-09] MEDS: Docusate 100 MG CAP PO SCH (20:31)
[2018-11-10] MEDS: Piperacillin/Tazobactam 3.375 GM in Sodium Chloride 0.9% 100 ML IVPB SCH (01:05)
[2018-11-10] MEDS: Acetaminophen 325 MG TAB PO PRN (02:14)
[2018-11-10 04:57] LABS: #Eosinphils 0.1 thou/uL (0.0-0.7); #Lymphocytes 0.8 thou/uL (1.20-3.40); #Monocytes 0.3 thou/uL (0.11-0.59); #Neutrophils 2.8 thou/uL (1.40-6.50); %Basophils 0.4 % (0.0-1.0); %Eosinophils 2.6 % (0.0-10.0); %Lymphocytes 19.1 % (21.0-51.0); %Monocytes 8.2 % (0.0-10.0); %Neutrophils 69.7 % (42.0-75.0); Mean Corpuscular HGB CONC 31.6 g/dL (32.0-36.0); Mean Corpuscular Hemoglobin 29.6 pg (27.0-31.0); Mean Corpuscular Volume 93.9 fL (78.0-98.0); Mean Platelet Volume 12.9 fL (7.4-10.4); Platelet Count 24 thou/uL (130-400); RBC Distribution Width 14.7 % (11.5-14.5); Red Blood Cell (RBC) Count 2.71 mill/uL (4.70-6.10)
[2018-11-10 05:11] LABS: Anion Gap 13 mmol/L (10-20); BUN (Urea Nitrogen) 27 mg/dL (8.9-20.6); Calc. Creatinine Clearance 29 mL/min (70-130); Calcium 8.5 mg/dL (7.8-10.44); Carbon Dioxide 27 mmol/L (22-29); Chloride 99 mmol/L (98-107); Estimated GFR-MDRD 17; Glucose 96 mg/dL (70-105); Potassium 3.4 mmol/L (3.5-5.1); Sodium 136 mmol/L (136-145)
[2018-11-10 08:28] LABS: Vancomycin, Random 13.4 ug/mL (See Comment)
--- NOTE | 2018-11-10 08:49 | PDOC.HOSPP ---
- Subjective Encounter Date: 11/10/18 Encounter Time: 08:47 Subjective: alert, denies any problem - Objective Vital Signs & Weight: Vital Signs (12 hours) Temp Pulse Resp BP Pulse Ox 11/10/18 08:00 99 11/10/18 07:06 97.5 F L 11/10/18 03:17 97.7 F 11/09/18 23:30 98.6 F 11/09/18 23:00 87 14 121/72 95 Weight Weight 191 lb 14.4 oz Most Recent Monitor Data Heart Rate from ECG 80 NIBP 147/80 NIBP BP-Mean 102 Respiration from ECG 15 SpO2 95 I&O: 11/09/18 11/10/18 11/11/18 06:59 06:59 06:59 Intake Total 1290 1070 Output Total 200 Balance 1290 870 Result Diagrams: 11/10/18 04:30 11/10/18 04:30 ROS - Medication Medications: Active Medications Generic Name Dose Route Start Last Admin Trade Name Freq PRN Reason Stop Dose Admin Acetaminophen 650 mg 11/02/18 00:45 11/10/18 02:14 Tylenol PO 650 mg Q4H PRN Administration Headache/Fever/Mild Pain (1-3) Docusate Sodium 100 mg 11/02/18 21:00 11/09/18 20:31 Colace PO Not Given BID [facility] Epoetin Nain-epbx 10,000 unit 11/05/18 12:00 11/05/18 14:33 Retacrit SC 10,000 unit Q7D NEPTALI Administration Fludrocortisone Acetate 0.1 mg 11/03/18 09:00 11/09/18 13:58 Florinef PO 0.1 mg DAILY NEPTALI Administration Piperacillin Sod/Tazobactam 100 mls @ 200 mls/hr 11/02/18 01:00 11/10/18 01: 05 Sod 3.375 gm/ Sodium Chloride IVPB 100 mls 0100,1300 NEPTALI Administration Vancomycin HCl 750 mg/ Sodium 250 mls @ 250 mls/hr 11/02/18 00:45 11/09/18 10 :42 Chloride IVPB 250 mls WILLCALL NEPTALI Administration Miscellaneous Medication 12.5 mg 11/08/18 07:30 11/09/18 10:10 Movantik PO Not Given DAILY-AC [facility] Ondansetron HCl 4 mg 11/02/18 00:45 11/02/18 13:28 Zofran IVP 4 mg Q6H PRN Administration Nausea/Vomiting Oxcarbazepine 900 mg 11/08/18 21:00 11/09/18 20:32 Trileptal PO 900 mg BID NEPTALI Administration Polyethylene Glycol 17 gm 11/08/18 09:00 11/09/18 20:31 Miralax PO Not Given BID NEPTALI Sertraline HCl 50 mg 11/09/18 09:00 11/09/18 13:45 Zoloft PO 50 mg DAILY NEPTALI Administration Sodium Chloride 10 ml 11/05/18 21:00 11/09/18 20:33 Flush - Normal Saline IVF 10 ml Q12HR NEPTALI Administration Sodium Chloride 10 ml 11/05/18 10:15 11/10/18 01:05 Flush - Normal Saline IVF 10 ml PRN PRN Administration Saline Flush - Exam Neck: JVD Heart: RRR, no murmur Respiratory: CTAB, no wheezes Gastrointestinal: soft, non-tender, normal bowel sounds Extremities: no edema Neurological: no new deficit Neurological - other findings: chronic LUE weakness post craniotomy and resection of partial lobe Hosp A/P (1) Atrial fibrillation Code(s): I48.91 - UNSPECIFIED ATRIAL FIBRILLATION Status: Chronic Qualifiers: Atrial fibrillation type: paroxysmal Qualified Code(s): I48.0 - Paroxysmal atrial fibrillation (2) Abdominal pain Code(s): R10.9 - UNSPECIFIED ABDOMINAL PAIN Status: Acute Qualifiers: Abdominal location: left lower quadrant Qualified Code(s): R10.32 - Left lower quadrant pain (3) Anemia of renal disease Code(s): N18.9 - CHRONIC KIDNEY DISEASE, UNSPECIFIED; D63.1 - ANEMIA IN CHRONIC KIDNEY DISEASE Status: Chronic (4) Antiphospholipid syndrome Code(s): D68.61 - ANTIPHOSPHOLIPID SYNDROME Status: Chronic (5) CAD (coronary artery disease) Code(s): I25.10 - ATHSCL HEART DISEASE OF [place] CORONARY ARTERY W/O ANG PCTRS Status: Chronic Qualifiers: Coronary Disease-Associated Artery/Lesion type: [place] artery [place] vs. transplanted heart: [place] heart (6) End stage renal disease on dialysis Code(s): N18.6 - END STAGE RENAL DISEASE; Z99.2 - DEPENDENCE ON RENAL DIALYSIS Status: Chronic (7) Fever Code(s): R50.9 - FEVER, UNSPECIFIED Status: Resolved Qualifiers: Fever type: due to other condition Qualified Code(s): R50.81 - Fever presenting with conditions classified elsewhere (8) Pancytopenia Code(s): D61.818 - OTHER PANCYTOPENIA Status: Chronic (9) Seizure disorder Code(s): G40.909 - EPILEPSY, UNSP, NOT INTRACTABLE, WITHOUT STATUS EPILEPTICUS Status: Chronic - Plan difficult patient to asses, fever resolved, no obvious site, cultures neg. DC antibx A fib now in RSR ESRD on HD SEizure disorder stable on meds HAAS for transaminitis neg- suspect drug related problem-meds? will cont to review , monitor after protracted review of records, conclusion is that major issues related to abnormal LFTs and pancytopenia aare due to portal vein occlsion and are not amenable to therapy. Patient needs placement
[2018-11-10] MEDS: Fludrocortisone Acetate 0.1 MG TAB PO SCH (09:29)
[2018-11-10] MEDS: OXcarbazepine 300 MG TAB PO SCH ×2 (09:30→20:44)
[2018-11-10] MEDS: Docusate 100 MG CAP PO SCH ×2 (09:33→20:44)
[2018-11-10] MEDS: Polyethylene Glycol 3350 17 GM Packet PO SCH ×2 (09:34→20:44)
--- NOTE | 2018-11-10 09:44 | PRG ---
DATE OF SERVICE: 11/10/2018 SUBJECTIVE: Mr. Boo is a 48-year-old white male with ESRD and followed up by the Renal Service for his maintenance hemodialysis. The patient developed a rapid AFib yesterday. For that reason, he was transferred to the [facility]. Cardiology has been consulted. The patient received IV digoxin, and will receive further normal saline to help improve the low blood pressure yesterday. He is currently in sinus rhythm. No other complaints today. OBJECTIVE: VITAL SIGNS: Blood pressure 147/80, heart rate 80, respiratory rate 15, and pulse ox 95%. GENERAL: Noted to be awake, supine, comfortable, not in overt distress. SKIN: Adequate turgor. HEENT: He has a slightly pale conjunctivae. Anicteric sclerae. NECK: No neck mass. No carotid bruits. No JVD. CHEST: No deformities. LUNGS: Decreased breath sounds. HEART: Normal sinus rhythm. No murmur, no gallops, no rubs. ABDOMEN: Globular, soft, nontender. No masses. EXTREMITIES: No edema. No deformities. MEDICATIONS: Medications of November 10, 2018, reviewed. LABORATORY DATA: Laboratories of November 10, 2018; white count 2. Sodium 136, potassium 3.4, chloride 99, carbon dioxide 27, BUN 27, creatinine 3.87, calcium 8.5. White count 4, hemoglobin 8. ASSESSMENT AND PLAN: 1. End-stage renal disease, stable. We will continue current hemodialysis regimen. My plan is to do a short treatment today only for 3 hours since he did receive dialysis today. Initially, the feeling was that he may have mental status change due to uremia. His mentation has actually much improved. 2. Anemia. Continuing weekly Epogen. 3. Hypokalemia, mild-we will adjust his dialysis bath today. Minimal fluid removal with dialysis due to the low blood pressure. 4. Agree with current management. Job ID: [id number]
--- NOTE | 2018-11-10 16:46 | PDOC.CTH ---
Cardiology Progress Note - Subjective The pt seen and examined. No overnight events. No cardiac complaints. - Objective Vital Signs Temp Pulse Ox 11/10/18 15:15 97.8 F 11/10/18 10:23 97.0 F L 11/10/18 08:00 99 11/10/18 07:06 97.5 F L Admit Weight 204 lb 12.8 oz Weight 191 lb 14.4 oz 11/09/18 11/10/18 11/11/18 06:59 06:59 06:59 Intake Total 1290 1070 Output Total 200 Balance 1290 870 - Physical Examination General/Neuro: other: (alaerted to self and situation) Lungs: other: (diminished at bases) Heart: other: (irregular) Abdomen: soft Extremities: other: (No edema) - Telemetry Telemetry Rhythm: Afib - Labs Result Diagrams: 11/11/18 05:09 11/11/18 05:09 Troponin/CKMB CK-MB (CK-2) 1.0 ng/mL (0-6.6) 11/01/18 23:17 Troponin I 0.280 ng/mL (< 0.028) H 11/01/18 23:17 - Assessment/Plan 1. Atrial fibrillation with RVR - well controlled HR; Will start Digoxin 0.25mg IV push q6hrs x3; then change to 0.125mg PO daily; may start bblocker with stable VS. Not on OAC due to hx of thrombocytopenia 2. 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 Acute on CKD with HD - managed by Dr De La Rosa 4. Non-ischemia CMY with s/p BiV AICD placement in 03/2018 5. Antiphospolipid syndrome, chronic thrombocytopenia - 6. Seizure 7. Anemia - on Epoetin 8. fever - resolved; ABX was d/joseph by PCP 9. abnormal LFTs and pancytopenia are due to portal vein occ MAR reviewed Echo in 05/2018 with EF 30-35% (40-45% in 01/2018), dilated LV, mild ERA, mod MR , mild MAC, mild TR. Pt. seen and eval. by me. I agree with the A/P by the COIL REWIND MACHINE OPERATOR. This pt. has multiple medical problems as outlined above. Difficult to manage due to these issues. At present he is in NSR. Will need to decrease thedigoxin due to the renal failure. Perhaps 2-3 x per week if this controls the HR. His BP fluctuates and is likely hypotensive due to dialysis. This PM he is hypertensive again. Nephrology will have to assist with the BP control. chest : clear. RRR at this time. No edema. gjmays Review of Systems - Review of Systems Constitutional: reports: weakness EENTM: reports: no symptoms reported Respiratory: reports: no symptoms reported Cardiac (ROS): reports: no symptoms reported ABD/GI: reports: no symptoms reported : reports: no symptoms reported Musculoskeletal: reports: no symptoms reported
[2018-11-10] MEDS ORDERED: Digoxin 0.5 MG/2 ML AMP SLOW IVP SCH (17:00)
[2018-11-10 17:05] LABS: Hemoglobin 7.2 g/dL (14.0-18.0)
[2018-11-10] MEDS: Melatonin 3 MG TAB PO PRN (21:26)
--- NOTE | 2018-11-10 21:59 | PRG ---
DATE OF SERVICE: 11/10/2018 REASON FOR CONSULTATION: Abdominal pain. SUBJECTIVE: Today, the patient was somewhat somnolent during the examination with repeated prompting of the patient to answer per questions. However, during the course of the interview today, he denied any abdominal pain or any pain at the current time. Per nursing staff, he did have a large bowel movement overnight that "soaks the sheets." He currently denies any nausea, vomiting, fevers, chills, dysphagia, odynophagia, or abdominal pain. OBJECTIVE: VITAL SIGNS: Temperature 97.4, pulse 88, blood pressure 177/92, respiratory rate 13, and saturating 99% on room air. GENERAL: The patient was lying in bed, no acute distress. Alert and oriented x2. CARDIOVASCULAR: Regular rate and rhythm. RESPIRATORY: Clear to auscultation bilaterally. ABDOMEN: Normoactive bowel sounds. Soft and nondistended. No tenderness to palpation. EXTREMITIES: No cyanosis, clubbing, or edema. LABORATORY DATA: CBC with a white blood cell count of 4, hemoglobin 8, hematocrit 25.4, and platelets 24. Chemistry with a sodium of 136, potassium 3.4, chloride 99, CO2 of 27, BUN 27, creatinine 3.87, and glucose 96. IMAGING STUDIES: No current GI imaging is available for review. ASSESSMENT AND PLAN: The patient is a 48-year-old male with past medical history of hypertension, gout, antiphospholipid syndrome with deep vein thromboses and pulmonary emboli, end-stage renal disease on hemodialysis, atrial fibrillation, seizure disorder, anemia of chronic kidney disease, and coronary artery disease, initially presenting with midepigastric abdominal pain and transaminitis, but now with resolution of his abdominal pain and downtrending of his LFTs. Midepigastric abdominal pain: The patient was initially admitted to the hospital with complaints of midepigastric and right upper quadrant abdominal pain with imaging showing cholelithiasis without evidence of cholecystitis. He did have some initial labs that were concerning for a possible cholecystitis-type picture, but has been resolving for the course of this hospitalization. During the course of this hospitalization, he had only had very small bowel movements as well, which further could have been contributing to his abdominal pain and with the larger bowel movements last night and complete resolution of his abdominal pain today, it could very well be contributing to his initial presentation. At this point, the patient does also have a HIDA scan during this admission that was negative for any abnormalities making the diagnosis of acute cholecystitis much less likely concurrent congestive heart failure and cardiac arrhythmias demonstrated during the course of this hospitalization, decreased blood flow to the mesentery as well as possible mesenteric ischemia secondary to antiphospholipid syndrome is possible as well that could further contribute to abdominal pain that could be transient in nature. RECOMMENDATIONS: 1. We would decrease the patient's bowel regimen to include just the naloxegol and MiraLAX daily given the significant bowel movement that he had last night. 2. We would defer to primary team for pain control, but would attempt to minimize any narcotic medications as it could further cause constipation and exacerbation of abdominal pain. 3. We could consider restarting the patient's anticoagulation in light of possible mesenteric ischemia contributing to prior episodes of abdominal pain. 4. No endoscopic evaluation is indicated at this time. Transaminitis: The patient initially presented with elevation in his LFTs primarily in a cholestatic distribution concerning for biliary obstruction or possible cholecystitis. However, during the course of this hospitalization, he has had both negative HIDA scan and his LFTs have been downtrending ever since. Given his significantly elevated BNP at 3900 on admission and effective diuresis through hemodialysis with concurrent downtrending of the LFTs, it seems to be more likely related to exacerbation of congestive heart failure and low-flow states related to oxygenation of the liver itself. Right upper quadrant ultrasound has also not been indicative of any sort of biliary obstruction further making the diagnosis of congestive hepatopathy more likely. RECOMMENDATIONS: 1. Defer to Cardiology Service for management of cardiac arrhythmias and maintenance of normotensive pressures. 2. We will continue to treat the patient during hemodialysis for a possible hypovolemic state. 3. We will continue to trend LFTs. 4. We will sign off at this time. Please call with any additional questions. Job ID: [id number]
[2018-11-11 06:10] LABS: Anion Gap 13 mmol/L (10-20); BUN (Urea Nitrogen) 18 mg/dL (8.9-20.6); Calc. Creatinine Clearance 35 mL/min (70-130); Calcium 8.1 mg/dL (7.8-10.44); Carbon Dioxide 27 mmol/L (22-29); Chloride 101 mmol/L (98-107); Estimated GFR-MDRD 21; Glucose 84 mg/dL (70-105); Potassium 3.8 mmol/L (3.5-5.1); Sodium 137 mmol/L (136-145)
[2018-11-11 06:23] LABS: #Eosinphils 0.1 thou/uL (0.0-0.7); #Monocytes 0.3 thou/uL (0.11-0.59); #Neutrophils 2.4 thou/uL (1.40-6.50); %Basophils 0.6 % (0.0-1.0); %Eosinophils 2.2 % (0.0-10.0); %Lymphocytes 26.1 % (21.0-51.0); %Monocytes 8.1 % (0.0-10.0); %Neutrophils 62.9 % (42.0-75.0); Hemoglobin 7.7 g/dL (14.0-18.0); Large Platelets SLIGHT; MDiff Complete? YES; Mean Corpuscular HGB CONC 31.8 g/dL (32.0-36.0); Mean Corpuscular Hemoglobin 29.6 pg (27.0-31.0); Mean Platelet Volume 13.8 fL (7.4-10.4); Platelet Count 18 thou/uL (130-400); Platelet Morphology Comment Appears Decreased; RBC Distribution Width 14.9 % (11.5-14.5); White Blood Cell (WBC) Count 3.8 thou/uL (4.8-10.8)
--- NOTE | 2018-11-11 08:24 | PDOC.CTH ---
Cardiology Progress Note - Subjective The pt seen and examined. No overnight events. No cardiac complaints. The pt is resting in the bed comfortably. - Objective Vital Signs Temp 11/11/18 07:25 97.8 F 11/11/18 03:18 98.3 F 11/10/18 23:11 97.4 F L Admit Weight 204 lb 12.8 oz Weight 192 lb 9.6 oz 11/10/18 11/11/18 11/12/18 06:59 06:59 06:59 Intake Total 1070 560 Output Total 200 Balance 870 560 - Physical Examination General/Neuro: alert & oriented x3 Lungs: other: (diminished at bases) Heart: RRR Abdomen: soft Extremities: other: (No edema) - Telemetry Telemetry Rhythm: SR - Labs Result Diagrams: 11/11/18 05:09 11/11/18 05:09 Troponin/CKMB CK-MB (CK-2) 1.0 ng/mL (0-6.6) 11/01/18 23:17 Troponin I 0.280 ng/mL (< 0.028) H 11/01/18 23:17 - Assessment/Plan 1. Atrial fibrillation with RVR - remains in SR with Digoxin PO 0.125mg on , Th, Sat; may start bblocker with stable VS. Not on OAC due to hx of thrombocytopenia (may start low dose of OAC as GI recommendation?) 2. 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 Acute on CKD with HD - managed by Dr De La Rosa 4. Non-ischemia CMY with s/p BiV AICD placement in 03/2018 5. Antiphospolipid syndrome, chronic thrombocytopenia - 6. Seizure 7. Anemia - on Epoetin 8. fever - resolved; ABX was d/joseph by PCP 9. abnormal LFTs 2/2 CHF - On HD 10. Nephrology will have to assist with the BP control. MAR reviewed * Echo in 05/2018 with EF 30-35% (40-45% in 01/2018), dilated LV, mild ERA, mod MR, mild MAC, mild TR. * Nephrology will have to assist with the BP control. Pt. seen and eval. by me. I agree with the A/P by the CUSTOMER SUPPORT CONSULTANT. This pt. has multiple medical problems as outlined above. Difficult to manage due to these issues. At present he is in NSR. Continue digoxin at the reduced dosing due to the renal failure 2-3 x per week if this controls the HR. His BP fluctuates and is likely hypotensive due to dialysis. This AM he is normotensive. Nephrology will have to assist with the BP control. chest : clear. RRR at this time. No edema. [email or web address] Review of Systems - Review of Systems Constitutional: reports: no symptoms reported EENTM: reports: no symptoms reported Respiratory: reports: no symptoms reported Cardiac (ROS): reports: no symptoms reported ABD/GI: reports: no symptoms reported : reports: no symptoms reported Musculoskeletal: reports: no symptoms reported
[2018-11-11] MEDS: Polyethylene Glycol 3350 17 GM Packet PO SCH (08:40)
[2018-11-11] MEDS ORDERED: Digoxin 0.125 MG TAB PO SCH (09:00)
[2018-11-11] MEDS ORDERED: Digoxin 0.5 MG/2 ML AMP SLOW IVP SCH (09:00)
[2018-11-11] MEDS: OXcarbazepine 300 MG TAB PO SCH ×2 (09:10→20:17)
[2018-11-11] MEDS: Fludrocortisone Acetate 0.1 MG TAB PO SCH (09:10)
--- NOTE | 2018-11-11 11:30 | PRG ---
DATE OF SERVICE: 11/11/2018 SUBJECTIVE: Mr. Boo is a 48-year-old white male with known history of his ESRD. He was recently transferred to MICU due to a rapid AFib. His AFib is now much improved. He was also noted to be more thrombocytopenic today. For that reason, we have notified Hematology. He received dialysis yesterday. We shorten the treatment yesterday due to clotting. No other complaints today. No chest pain or shortness of breath. OBJECTIVE: VITAL SIGNS: Blood pressure is 154/72, heart rate 72, respiratory rate 17, and pulse ox 96%, and temperature 97.8. GENERAL: Awake, alert, supine, and comfortable, not in distress. SKIN: Decreased turgor. HEENT: Slightly pale conjunctivae. Anicteric sclerae. NECK: No neck mass. No carotid bruits. No JVD. CHEST: No deformities. LUNGS: Clear breath sounds. No wheezing. No crackles. HEART: Normal sinus rhythm. No murmur. No gallops. No rubs. ABDOMEN: Globular, soft, and nontender. No masses. EXTREMITIES: No edema. No deformities. MEDICATIONS: Medications of November 11, 2018, reviewed. LABORATORY DATA: Laboratories of November 11, 2018, white count 3.8 and hemoglobin 7.7. Sodium 137, potassium 3.8, chloride 101, carbon dioxide 27, BUN 18, creatinine 3.22, glucose 84, and calcium 8.1. ASSESSMENT AND PLAN: 1. End-stage renal disease, stable, tolerating current hemodialysis regimen. We will again reschedule this patient for hemodialysis tomorrow. Fluid removal only as tolerated. 2. Chronic thrombocytopenia. Platelet count has worsen. We will reconsult Hematology. 3. Anemia, stable. Continuing weekly Epogen. 4. Atrial fibrillation - resolved. Much improved. 5. Hypotension. Continue current Florinef. Minimal fluid removal with dialysis. Job ID: [id number]
--- NOTE | 2018-11-11 15:44 | PDOC.MOPN ---
Interval History: no bleeding per nursing. - Vital Signs Vital Signs: Vital Signs (12 hours) Temp Pulse Pulse BP BP Pulse Ox 11/11/18 15:18 98.4 F 11/11/18 11:51 79 79 100/64 100/53 L 11/11/18 11:21 97.4 F L 11/11/18 08:00 96 11/11/18 07:25 97.8 F Weight Admit Weight 204 lb 12.8 oz Weight 192 lb 9.6 oz Most Recent Monitor Data Heart Rate from ECG 83 NIBP 110/68 NIBP BP-Mean 82 Respiration from ECG 21 SpO2 100 - Physical Exam General: No acute distress Lungs: Clear to auscultation Cardiovascular: Regular rate Abdomen: Normal bowel sounds Skin: No rashes - Labs Result Diagrams: 11/11/18 05:09 11/11/18 05:09 Lab results: Laboratory Results - last 24 hr 11/11/18 05:09: WBC 3.8 L, RBC 2.60 L, Hgb 7.7 L, Hct 24.2 L, MCV 93.0, MCH 29.6 , MCHC 31.8 L, RDW 14.9 H, Plt Count 18 L*, MPV 13.8 H, Neutrophils % 62.9, Neutrophils % (Manual) Not Reportable, Lymphocytes % 26.1, Monocytes % 8.1, Eosinophils % 2.2, Basophils % 0.6, Neutrophils # 2.4, Lymphocytes # 1.0 L, Monocytes # 0.3, Eosinophils # 0.1, Basophils # 0.0, Large Platelets SLIGHT, Plt Morphology Comment Appears Decreased L 11/11/18 05:09: Sodium 137, Potassium 3.8, Chloride 101, Carbon Dioxide 27, Anion Gap 13, BUN 18, Creatinine 3.22 H, Estimated GFR (MDRD) 21, Glucose 84, Calcium 8.1 11/10/18 16:56: Hgb 7.2 L, Hct 22.5 L Status: lab reviewed by me A/P - Problem (1) Antiphospholipid syndrome Current Visit: No Code(s): D68.61 - ANTIPHOSPHOLIPID SYNDROME Status: Chronic (2) End stage renal disease on dialysis Current Visit: No Code(s): N18.6 - END STAGE RENAL DISEASE; Z99.2 - DEPENDENCE ON RENAL DIALYSIS Status: Chronic (3) Thrombocytopenia Current Visit: No Code(s): D69.6 - THROMBOCYTOPENIA, UNSPECIFIED Status: Chronic - Plan Plan: Patients CBC has trended downwards during admission No evidence of bleeding. Would recommend blood transfusion for hgb < 7.5 and platelets < 15K No further inpatient workup at this time Discussed with Dr. Gunn.
--- NOTE | 2018-11-11 16:18 | PDOC.HOSPP ---
- Subjective Encounter Date: 11/11/18 Encounter Time: 10:10 Subjective: Mr. Boo was seen today in follow-up of abdominal pain. He says the abdominal pain has resolved. He is trying to eat more. He has occasional shortness of breath. - Objective Vital Signs & Weight: Vital Signs (12 hours) Temp Pulse Pulse BP BP Pulse Ox 11/11/18 15:18 98.4 F 11/11/18 11:51 79 79 100/64 100/53 L 11/11/18 11:21 97.4 F L 11/11/18 08:00 96 11/11/18 07:25 97.8 F Weight Admit Weight 204 lb 12.8 oz Weight 192 lb 9.6 oz Most Recent Monitor Data Heart Rate from ECG 83 NIBP 110/68 NIBP BP-Mean 82 Respiration from ECG 21 SpO2 100 I&O: 11/10/18 11/11/18 11/12/18 06:59 06:59 06:59 Intake Total 1070 560 Output Total 200 Balance 870 560 Result Diagrams: 11/11/18 05:09 11/11/18 05:09 ROS - Medication Medications: Active Medications Generic Name Dose Route Start Last Admin Trade Name Freq PRN Reason Stop Dose Admin Acetaminophen 650 mg 11/02/18 00:45 11/10/18 02:14 Tylenol PO 650 mg Q4H PRN Administration Headache/Fever/Mild Pain (1-3) Epoetin Nain-epbx 10,000 unit 11/05/18 12:00 11/05/18 14:33 Retacrit SC 10,000 unit Q7D NEPTALI Administration Fludrocortisone Acetate 0.1 mg 11/03/18 09:00 11/11/18 09:10 Florinef PO 0.1 mg DAILY NEPTALI Administration Melatonin 6 mg 11/02/18 17:14 11/10/18 21:26 Melatonin PO 6 mg HS PRN Administration Insomnia Miscellaneous Medication 12.5 mg 11/08/18 07:30 11/11/18 08:40 Movantik PO Not Given DAILY-AC NEPTALI Ondansetron HCl 4 mg 11/02/18 00:45 11/02/18 13:28 Zofran IVP 4 mg Q6H PRN Administration Nausea/Vomiting Oxcarbazepine 900 mg 11/08/18 21:00 11/11/18 09:10 Trileptal PO 900 mg BID NEPTALI Administration Polyethylene Glycol 17 gm 11/11/18 09:00 11/11/18 08:40 Miralax PO Not Given DAILY NEPTALI Sertraline HCl 50 mg 11/09/18 09:00 11/11/18 09:10 Zoloft PO 50 mg DAILY NEPTALI Administration Sodium Chloride 10 ml 11/05/18 21:00 11/11/18 09:11 Flush - Normal Saline IVF 10 ml Q12HR NEPTALI Administration Sodium Chloride 10 ml 11/05/18 10:15 11/10/18 17:29 Flush - Normal Saline IVF 10 ml PRN PRN Administration Saline Flush - Exam Eye: PERRL, anicteric sclera ENT: normocephalic atraumatic (temporal wasting), no oropharyngeal lesions Heart: RRR, no murmur, no gallops, no rubs Respiratory: CTAB, no wheezes, no rales, no ronchi, normal chest expansion Gastrointestinal: soft, non-tender, non-distended, normal bowel sounds, no palpable masses, no hepatomegaly, no splenomegaly Extremities: no cyanosis, no clubbing, no edema Skin: normal turgor, no lesions, no rashes Hosp A/P (1) Fever Code(s): R50.9 - FEVER, UNSPECIFIED Status: Resolved Qualifiers: Fever type: due to other condition Qualified Code(s): R50.81 - Fever presenting with conditions classified elsewhere (2) Abdominal pain Code(s): R10.9 - UNSPECIFIED ABDOMINAL PAIN Status: Acute Qualifiers: Abdominal location: left lower quadrant Qualified Code(s): R10.32 - Left lower quadrant pain (3) Acute on chronic systolic heart failure, NYHA class 3 Code(s): I50.23 - ACUTE ON CHRONIC SYSTOLIC (CONGESTIVE) HEART FAILURE Status : Acute (4) Atrial fibrillation Code(s): I48.91 - UNSPECIFIED ATRIAL FIBRILLATION Status: Chronic Qualifiers: Atrial fibrillation type: paroxysmal Qualified Code(s): I48.0 - Paroxysmal atrial fibrillation (5) End stage renal disease on dialysis Code(s): N18.6 - END STAGE RENAL DISEASE; Z99.2 - DEPENDENCE ON RENAL DIALYSIS Status: Chronic (6) HTN (hypertension) Code(s): I10 - ESSENTIAL (PRIMARY) HYPERTENSION Status: Chronic Qualifiers: (7) Physical deconditioning Code(s): R53.81 - OTHER MALAISE Status: Chronic (8) Moderate protein-calorie malnutrition Code(s): E44.0 - MODERATE PROTEIN-CALORIE MALNUTRITION Status: Chronic - Plan * Abdominal pain- this has resolved- Discussed with Dr. Fonseca * Thrombocytopenia- Likely related to the antiphospholipid syndrome * Acute on chronic systolic heart failure- better compensated * ESRD- continue dialysis as per Nephrology * Anemia- due to renal disease,and chronic illness- transfuse as necessary * Severe deconditioning- will re-institute PT * AFIB- his heart rate is stable- ? anticoagulation- due to severely low platelets- will defer to Hematology * Patient's overall prognosis is guarded. * Begin discharge planning
[2018-11-12] MEDS ORDERED: Digoxin 0.125 MG TAB PO SCH (09:00)
--- NOTE | 2018-11-12 09:31 | PDOC.HOSPP ---
- Subjective Encounter Date: 11/12/18 Encounter Time: 09:30 Subjective: Mr. Holman was seen today in follow-up of abdominal pain and elevated LFT's. He does not complain of abdominal pain today. He says he is trying to increase his oral intake. - Objective Vital Signs & Weight: Vital Signs (12 hours) Temp Pulse Resp Pulse Ox 11/12/18 07:09 98.4 F 11/12/18 04:41 98.2 F 11/12/18 02:16 84 12 99 11/12/18 00:00 98.4 F Weight Admit Weight 204 lb 12.8 oz Weight 197 lb 5.019 oz Most Recent Monitor Data Heart Rate from ECG 84 NIBP 143/82 NIBP BP-Mean 102 Respiration from ECG 10 SpO2 98 I&O: 11/11/18 11/12/18 11/13/18 06:59 06:59 06:59 Intake Total 560 410 Balance 560 410 Result Diagrams: 11/11/18 05:09 11/11/18 05:09 ROS - Medication Medications: Active Medications Generic Name Dose Route Start Last Admin Trade Name Freq PRN Reason Stop Dose Admin Acetaminophen 650 mg 11/02/18 00:45 11/10/18 02:14 Tylenol PO 650 mg Q4H PRN Administration Headache/Fever/Mild Pain (1-3) Epoetin Nain-epbx 10,000 unit 11/05/18 12:00 11/05/18 14:33 Retacrit SC 10,000 unit Q7D NEPTALI Administration Fludrocortisone Acetate 0.1 mg 11/03/18 09:00 11/11/18 09:10 Florinef PO 0.1 mg DAILY NEPTALI Administration Melatonin 6 mg 11/02/18 17:14 11/10/18 21:26 Melatonin PO 6 mg HS PRN Administration Insomnia Miscellaneous Medication 12.5 mg 11/08/18 07:30 11/11/18 08:40 Movantik PO Not Given DAILY-AC NEPTALI Ondansetron HCl 4 mg 11/02/18 00:45 11/02/18 13:28 Zofran IVP 4 mg Q6H PRN Administration Nausea/Vomiting Oxcarbazepine 900 mg 11/08/18 21:00 11/11/18 20:17 Trileptal PO 900 mg BID NEPTALI Administration Polyethylene Glycol 17 gm 11/11/18 09:00 11/11/18 08:40 Miralax PO Not Given DAILY NEPTALI Sertraline HCl 50 mg 11/09/18 09:00 11/11/18 09:10 Zoloft PO 50 mg DAILY NEPTALI Administration Sodium Chloride 10 ml 11/05/18 21:00 11/11/18 20:17 Flush - Normal Saline IVF 10 ml Q12HR NEPTALI Administration Sodium Chloride 10 ml 11/05/18 10:15 11/10/18 17:29 Flush - Normal Saline IVF 10 ml PRN PRN Administration Saline Flush - Exam Eye: PERRL, anicteric sclera Heart: RRR, no murmur, no gallops, no rubs, normal peripheral pulses Respiratory: no wheezes, no ronchi, normal chest expansion, rales (+ rales at both bases) Gastrointestinal: soft, non-tender, non-distended, normal bowel sounds, no palpable masses Extremities: no cyanosis, no clubbing, 1+ LE edema (in both lower extremities) Hosp A/P (1) Abdominal pain Code(s): R10.9 - UNSPECIFIED ABDOMINAL PAIN Status: Resolved Qualifiers: Abdominal location: left lower quadrant Qualified Code(s): R10.32 - Left lower quadrant pain (2) Acute on chronic systolic heart failure, NYHA class 3 Code(s): I50.23 - ACUTE ON CHRONIC SYSTOLIC (CONGESTIVE) HEART FAILURE Status : Acute (3) Atrial fibrillation Code(s): I48.91 - UNSPECIFIED ATRIAL FIBRILLATION Status: Chronic Qualifiers: Atrial fibrillation type: paroxysmal Qualified Code(s): I48.0 - Paroxysmal atrial fibrillation (4) End stage renal disease on dialysis Code(s): N18.6 - END STAGE RENAL DISEASE; Z99.2 - DEPENDENCE ON RENAL DIALYSIS Status: Chronic (5) HTN (hypertension) Code(s): I10 - ESSENTIAL (PRIMARY) HYPERTENSION Status: Chronic Qualifiers: (6) Physical deconditioning Code(s): R53.81 - OTHER MALAISE Status: Chronic (7) Moderate protein-calorie malnutrition Code(s): E44.0 - MODERATE PROTEIN-CALORIE MALNUTRITION Status: Chronic (8) Antiphospholipid syndrome Code(s): D68.61 - ANTIPHOSPHOLIPID SYNDROME Status: Chronic (9) Thrombocytopenia Code(s): D69.6 - THROMBOCYTOPENIA, UNSPECIFIED Status: Chronic - Plan * Abdominal pain- this has resolved- Discussed with Dr. Fnoseca * Thrombocytopenia- his platelet count remains low- likely from Antiphospholipid syndrome- in review of his records this dates back at least to 2010. He has had numerous evaluations by Hematology over the years * Acute on chronic systolic heart failure- better compensated * ESRD- continue dialysis * Anemia- due to renal disease,and chronic illness- transfuse as necessary * Severe deconditioning- will re-institute PT * AFIB- his heart rate is stable- ? anticoagulation- due to severely low platelets- will defer to Hematology * Patient's overall prognosis is guarded.
--- NOTE | 2018-11-12 11:09 | PRG ---
DATE OF SERVICE: 11/12/2018 SUBJECTIVE: Mr. Boo is a 48-year-old white male with ESRD and followed up by the Renal Service for his maintenance hemodialysis. He is undergoing hemodialysis. Minimal fluid is being done. He was hypotensive previously and for that reason, we are minimizing fluid removal. His p.o. intake is also decreased. In the interim, he has developed a transient atrial fibrillation, which is resolved. OBJECTIVE: VITAL SIGNS: Blood pressure is 140/81, heart rate 85, respiratory rate 11, and pulse oximetry 96%. GENERAL: Noted to be awake, supine, somewhat lethargic, not in overt distress. SKIN: Adequate turgor. HEENT: He has a slightly pale conjunctivae. Anicteric sclerae. No neck mass. No carotid bruits. No JVD. CHEST: No deformities. LUNGS: Clear breath sounds. HEART: Normal sinus rhythm. No murmur. No gallops. No rubs. ABDOMEN: Globular, soft, nontender. No masses. EXTREMITIES: No edema. No deformities. MEDICATIONS: Medications of November 12, 2018, reviewed. LABORATORY DATA: Of November 11, 2018, was reviewed. ASSESSMENT AND PLAN: 1. End-stage renal disease, stable. Minimizing fluid removal due to the relatively low blood pressure. I do not think this patient is in volume overload. We will continue current hemodialysis regimen. 2. Anemia, currently [place] [address] units of Epogen subcutaneous every week. 3. Chronic thrombocytopenia. Last platelet count was 18,000. Hematology is following. He has been started on Movantik at 12.5 mg p.o. daily. 4. Overall agree with current management. Job ID: [id number]
[2018-11-12] MEDS ORDERED: Heparin 1,000 UNITS/ML VIAL ONE (11:11)
[2018-11-12] MEDS: Fludrocortisone Acetate 0.1 MG TAB PO SCH (12:53)
[2018-11-12] MEDS: Polyethylene Glycol 3350 17 GM Packet PO SCH (12:53)
[2018-11-12] MEDS: OXcarbazepine 300 MG TAB PO SCH ×2 (12:53→20:51)
[2018-11-12] MEDS: Digoxin 0.125 MG TAB PO SCH (12:53)
[2018-11-12] MEDS: EPOETIN ALFA-EPBX (ESRD) 10,000 UNIT/ML VIAL SC SCH (14:12)
[2018-11-12] MEDS: Melatonin 3 MG TAB PO PRN (22:04)
[2018-11-13] MEDS: Ondansetron ODT 4 MG TAB PO PRN (05:09)
[2018-11-13] MEDS: OXcarbazepine 300 MG TAB PO SCH ×2 (08:29→21:03)
[2018-11-13] MEDS: Fludrocortisone Acetate 0.1 MG TAB PO SCH (08:29)
[2018-11-13] MEDS: Polyethylene Glycol 3350 17 GM Packet PO SCH ×2 (08:30→08:46)
--- NOTE | 2018-11-13 10:07 | PDOC.HOSPP ---
- Subjective Encounter Date: 11/13/18 Encounter Time: 10:05 Subjective: Mr. Boo was seen today in follow-up of Abdominal pain. He is sitting up in bed. When asked how he is doing he says" I don't know". He answers "I don't know" to most of my questions. - Objective Vital Signs & Weight: Vital Signs (12 hours) Temp Pulse Ox 11/13/18 08:00 94 L 11/13/18 07:07 99.0 F 11/13/18 06:00 92 L 11/13/18 05:00 94 L 11/13/18 04:26 97.8 F 11/13/18 00:33 97.8 F Weight Admit Weight 204 lb 12.8 oz Weight 194 lb 3.636 oz Most Recent Monitor Data Heart Rate from ECG 97 NIBP 111/59 NIBP BP-Mean 76 Respiration from ECG 16 SpO2 92 I&O: 11/12/18 11/13/18 11/14/18 06:59 06:59 06:59 Intake Total 410 380 Output Total 100 Balance 410 280 Result Diagrams: 11/11/18 05:09 11/11/18 05:09 ROS - Medication Medications: Active Medications Generic Name Dose Route Start Last Admin Trade Name Freq PRN Reason Stop Dose Admin Acetaminophen 650 mg 11/02/18 00:45 11/10/18 02:14 Tylenol PO 650 mg Q4H PRN Administration Headache/Fever/Mild Pain (1-3) Digoxin 0.125 mg 11/12/18 09:00 11/12/18 12:53 Lanoxin PO Not Given [facility] Epoetin Nain-epbx 10,000 unit 11/05/18 12:00 11/12/18 14:12 Retacrit SC 10,000 unit Q7D NEPTALI Administration Fludrocortisone Acetate 0.1 mg 11/03/18 09:00 11/13/18 08:29 Florinef PO 0.1 mg DAILY NEPTALI Administration Melatonin 6 mg 11/02/18 17:14 11/12/18 22:04 Melatonin PO 6 mg HS PRN Administration Insomnia Miscellaneous Medication 12.5 mg 11/08/18 07:30 11/13/18 08:35 Movantik PO Not Given DAILY-AC [facility] Ondansetron HCl 4 mg 11/02/18 00:45 11/13/18 05:09 Zofran Odt PO 4 mg Q6H PRN Administration Nausea/Vomiting Ondansetron HCl 4 mg 11/02/18 00:45 11/02/18 13:28 Zofran IVP 4 mg Q6H PRN Administration Nausea/Vomiting Oxcarbazepine 900 mg 11/08/18 21:00 11/13/18 08:29 Trileptal PO 900 mg BID NEPTALI Administration Polyethylene Glycol 17 gm 11/11/18 09:00 11/13/18 08:46 Miralax PO Not Given DAILY NEPTALI Sertraline HCl 50 mg 11/09/18 09:00 11/13/18 08:26 Zoloft PO 50 mg DAILY NEPTALI Administration Sodium Chloride 10 ml 11/05/18 21:00 11/13/18 08:30 Flush - Normal Saline IVF 10 ml Q12HR NEPTALI Administration Sodium Chloride 10 ml 11/05/18 10:15 11/10/18 17:29 Flush - Normal Saline IVF 10 ml PRN PRN Administration Saline Flush - Exam Eye: PERRL, anicteric sclera Heart: RRR, no murmur, no gallops, no rubs Respiratory: CTAB (+ coarse breath sounds), no rales, normal chest expansion, wheezes Gastrointestinal: soft, non-tender, non-distended, normal bowel sounds, no palpable masses Extremities: no cyanosis, no clubbing, 2+ LE edema Hosp A/P (1) Abdominal pain Code(s): R10.9 - UNSPECIFIED ABDOMINAL PAIN Status: Resolved Qualifiers: Abdominal location: left lower quadrant Qualified Code(s): R10.32 - Left lower quadrant pain (2) Acute on chronic systolic heart failure, NYHA class 3 Code(s): I50.23 - ACUTE ON CHRONIC SYSTOLIC (CONGESTIVE) HEART FAILURE Status : Acute (3) Atrial fibrillation Code(s): I48.91 - UNSPECIFIED ATRIAL FIBRILLATION Status: Chronic Qualifiers: Atrial fibrillation type: paroxysmal Qualified Code(s): I48.0 - Paroxysmal atrial fibrillation (4) End stage renal disease on dialysis Code(s): N18.6 - END STAGE RENAL DISEASE; Z99.2 - DEPENDENCE ON RENAL DIALYSIS Status: Chronic (5) HTN (hypertension) Code(s): I10 - ESSENTIAL (PRIMARY) HYPERTENSION Status: Chronic Qualifiers: (6) Physical deconditioning Code(s): R53.81 - OTHER MALAISE Status: Chronic (7) Moderate protein-calorie malnutrition Code(s): E44.0 - MODERATE PROTEIN-CALORIE MALNUTRITION Status: Chronic (8) Antiphospholipid syndrome Code(s): D68.61 - ANTIPHOSPHOLIPID SYNDROME Status: Chronic (9) Thrombocytopenia Code(s): D69.6 - THROMBOCYTOPENIA, UNSPECIFIED Status: Chronic - Plan * Abdominal pain- resolved * Thrombocytopenia- this is chronic- will re-check a CBC today * Acute on chronic systolic heart failure- compensated * ESRD- continue dialysis * Anemia- chronic * Severe deconditioning- will re-institute PT * AFIB- his heart rate is stable- no anticoagulation due to severely low platelets * Patient's overall prognosis is guarded. * Awaiting placement
[2018-11-13 10:25] LABS: #Eosinphils 0.1 thou/uL (0.0-0.7); #Lymphocytes 0.9 thou/uL (1.20-3.40); #Monocytes 0.3 thou/uL (0.11-0.59); #Neutrophils 3.7 thou/uL (1.40-6.50); %Basophils 0.4 % (0.0-1.0); %Eosinophils 1.8 % (0.0-10.0); %Lymphocytes 18.5 % (21.0-51.0); %Monocytes 5.2 % (0.0-10.0); Hemoglobin 7.6 g/dL (14.0-18.0); Mean Corpuscular HGB CONC 32.5 g/dL (32.0-36.0); Mean Corpuscular Volume 92.4 fL (78.0-98.0); Mean Platelet Volume 12.8 fL (7.4-10.4); Platelet Count 24 thou/uL (130-400); RBC Distribution Width 15.8 % (11.5-14.5); Red Blood Cell (RBC) Count 2.53 mill/uL (4.70-6.10)
[2018-11-13 10:39] LABS: Anion Gap 12 mmol/L (10-20); BUN (Urea Nitrogen) 12 mg/dL (8.9-20.6); Calc. Creatinine Clearance 37 mL/min (70-130); Calcium 8.4 mg/dL (7.8-10.44); Carbon Dioxide 26 mmol/L (22-29); Chloride 99 mmol/L (98-107); Estimated GFR-MDRD 22; Glucose 94 mg/dL (70-105); Potassium 3.5 mmol/L (3.5-5.1); Sodium 133 mmol/L (136-145)
--- NOTE | 2018-11-13 11:55 | PRG ---
DATE OF SERVICE: 11/13/2018 SUBJECTIVE: Mr. Boo is a 48-year-old white male, followed up by the Renal Service for his maintenance hemodialysis. He underwent hemodialysis yesterday. Minimal fluid removal was done due to the low blood pressure. The patient this morning voices no new complaints. No chest pain or shortness of breath. He is still intermittently confused. Thrombocytopenia is also noted and is slowly improving. Hematology is following. OBJECTIVE: VITAL SIGNS: Blood pressure 113/73, heart rate 86, respiratory rate 15, O2 saturation 88% to 93%, and temperature 99.6. GENERAL: Awake, supine, comfortable, not in distress. SKIN: Decreased turgor. HEENT: He has pale conjunctivae. Anicteric sclerae. NECK: No neck mass. No carotid bruits. No JVD. CHEST: No deformities. LUNGS: Clear breath sounds. No wheezing. No crackles. HEART: Normal sinus rhythm. No murmurs, gallops, or rubs. ABDOMEN: Globular, soft, and nontender. No masses. EXTREMITIES: No edema. No deformities. MEDICATIONS: Medications of November 13, 2018, were reviewed. LABORATORY DATA: Laboratories of November 13, 2018; white count 5, hemoglobin 7.6. Sodium 133, potassium 3.5, chloride 99, carbon dioxide 26, BUN 12, creatinine 3.02, glucose 94, and calcium 8.4. ASSESSMENT AND PLAN: 1. End-stage renal disease - stable. We will continue current 3 times a week hemodialysis. Minimal fluid removal due to the low blood pressure. He underwent dialysis yesterday and tolerated said treatment. We minimize his fluid removal yesterday. 2. Chronic thrombocytopenia. Hematology is following. Currently improving. 3. Anemia, continuing weekly Epogen. The patient is currently on Epogen at 10,000 units subcu q.7 days. 4. Hypotension. Continue Florinef at 0.1 mg p.o. daily. 5. Overall prognosis remains guarded with this patient. Agree with current management. Job ID: [id number]
[2018-11-13] MEDS: Acetaminophen 325 MG TAB PO PRN ×2 (12:54→17:04)
[2018-11-13] MEDS: Melatonin 3 MG TAB PO PRN (21:03)
[2018-11-14 05:00] LABS: Platelet Count 26 thou/uL (130-400)
[2018-11-14 05:33] LABS: #Eosinphils 0.1 thou/uL (0.0-0.7); #Monocytes 0.3 thou/uL (0.11-0.59); #Neutrophils 2.6 thou/uL (1.40-6.50); %Basophils 0.9 % (0.0-1.0); %Eosinophils 1.6 % (0.0-10.0); %Lymphocytes 24.3 % (21.0-51.0); %Monocytes 6.4 % (0.0-10.0); %Neutrophils 66.8 % (42.0-75.0); Anisocytosis SLIGHT = 6-15 cells (100X) (0-5/hpf); Hemoglobin 7.3 g/dL (14.0-18.0); MDiff Complete? YES; Mean Corpuscular HGB CONC 32.2 g/dL (32.0-36.0); Mean Corpuscular Hemoglobin 29.7 pg (27.0-31.0); Mean Corpuscular Volume 92.1 fL (78.0-98.0); Mean Platelet Volume 12.8 fL (7.4-10.4); Ovalocytes SLIGHT = 2-5 cells (100X) (0-1/hpf); Platelet Morphology Comment Appears Decreased; RBC Distribution Width 16.1 % (11.5-14.5); Red Blood Cell (RBC) Count 2.46 mill/uL (4.70-6.10); White Blood Cell (WBC) Count 3.9 thou/uL (4.8-10.8)
[2018-11-14] MEDS: Ondansetron ODT 4 MG TAB PO PRN (08:19)
[2018-11-14] MEDS: Polyethylene Glycol 3350 17 GM Packet PO SCH (08:20)
[2018-11-14] MEDS: OXcarbazepine 300 MG TAB PO SCH ×2 (08:20→21:04)
[2018-11-14] MEDS: Fludrocortisone Acetate 0.1 MG TAB PO SCH (08:20)
--- NOTE | 2018-11-14 09:05 | PDOC.HOSPP ---
- Subjective Encounter Date: 11/14/18 Encounter Time: 09:04 Subjective: Mr. Boo was seen today in follow-up of Abdominal pain. He notes some nausea this morning. He denies feeling short of breath. He is equivocal when asked about abdominal pain. - Objective Vital Signs & Weight: Vital Signs (12 hours) Temp Pulse Ox 11/14/18 07:41 94 L 11/14/18 07:12 98.9 F 11/14/18 03:09 97.6 F 11/13/18 23:26 98.0 F Weight Admit Weight 204 lb 12.8 oz Weight 198 lb 6.656 oz Most Recent Monitor Data Heart Rate from ECG 93 NIBP 157/99 NIBP BP-Mean 118 Respiration from ECG 15 SpO2 96 I&O: 11/13/18 11/14/18 11/15/18 06:59 06:59 06:59 Intake Total 380 880 Output Total 100 Balance 280 880 Result Diagrams: 11/14/18 04:06 11/13/18 10:12 ROS - Medication Medications: Active Medications Generic Name Dose Route Start Last Admin Trade Name Freq PRN Reason Stop Dose Admin Acetaminophen 650 mg 11/02/18 00:45 11/13/18 17:04 Tylenol PO 650 mg Q4H PRN Administration Headache/Fever/Mild Pain (1-3) Digoxin 0.125 mg 11/12/18 09:00 11/12/18 12:53 Lanoxin PO Not Given TUTHSA [facility] Epoetin Nain-epbx 10,000 unit 11/05/18 12:00 11/12/18 14:12 Retacrit SC 10,000 unit Q7D NEPTALI Administration Fludrocortisone Acetate 0.1 mg 11/03/18 09:00 11/14/18 08:20 Florinef PO 0.1 mg DAILY NEPTALI Administration Melatonin 6 mg 11/02/18 17:14 11/13/18 21:03 Melatonin PO 6 mg HS PRN Administration Insomnia Miscellaneous Medication 12.5 mg 11/08/18 07:30 11/13/18 08:35 Movantik PO Not Given DAILY-AC NEPTALI Ondansetron HCl 4 mg 11/02/18 00:45 11/14/18 08:19 Zofran Odt PO 4 mg Q6H PRN Administration Nausea/Vomiting Ondansetron HCl 4 mg 11/02/18 00:45 11/02/18 13:28 Zofran IVP 4 mg Q6H PRN Administration Nausea/Vomiting Oxcarbazepine 900 mg 11/08/18 21:00 11/14/18 08:20 Trileptal PO 900 mg BID NEPTALI Administration Polyethylene Glycol 17 gm 11/11/18 09:00 11/14/18 08:20 Miralax PO 17 gm DAILY NEPTALI Administration Sertraline HCl 50 mg 11/09/18 09:00 11/14/18 08:21 Zoloft PO 50 mg DAILY NEPTALI Administration Sodium Chloride 10 ml 11/05/18 21:00 11/14/18 08:21 Flush - Normal Saline IVF 10 ml Q12HR NEPTALI Administration Sodium Chloride 10 ml 11/05/18 10:15 11/10/18 17:29 Flush - Normal Saline IVF 10 ml PRN PRN Administration Saline Flush - Exam Eye: PERRL, anicteric sclera Neck: supple, symmetric, no JVD, no thyromegaly Heart: RRR, no gallops, no rubs, normal peripheral pulses, II/IV Respiratory: CTAB, no wheezes, no rales, no ronchi, normal chest expansion, no tachypnea, normal percussion Gastrointestinal: soft, non-tender, non-distended, normal bowel sounds, no palpable masses, no hepatomegaly, no splenomegaly Extremities: no cyanosis, 1+ LE edema (Bilateral lower extremities, with venous stasis changes, no lesions) Hosp A/P (1) Abdominal pain Code(s): R10.9 - UNSPECIFIED ABDOMINAL PAIN Status: Resolved Qualifiers: Abdominal location: left lower quadrant Qualified Code(s): R10.32 - Left lower quadrant pain (2) Acute on chronic systolic heart failure, NYHA class 3 Code(s): I50.23 - ACUTE ON CHRONIC SYSTOLIC (CONGESTIVE) HEART FAILURE Status : Acute (3) Atrial fibrillation Code(s): I48.91 - UNSPECIFIED ATRIAL FIBRILLATION Status: Chronic Qualifiers: Atrial fibrillation type: paroxysmal Qualified Code(s): I48.0 - Paroxysmal atrial fibrillation (4) End stage renal disease on dialysis Code(s): N18.6 - END STAGE RENAL DISEASE; Z99.2 - DEPENDENCE ON RENAL DIALYSIS Status: Chronic (5) HTN (hypertension) Code(s): I10 - ESSENTIAL (PRIMARY) HYPERTENSION Status: Chronic Qualifiers: (6) Physical deconditioning Code(s): R53.81 - OTHER MALAISE Status: Chronic (7) Moderate protein-calorie malnutrition Code(s): E44.0 - MODERATE PROTEIN-CALORIE MALNUTRITION Status: Chronic (8) Antiphospholipid syndrome Code(s): D68.61 - ANTIPHOSPHOLIPID SYNDROME Status: Chronic (9) Thrombocytopenia Code(s): D69.6 - THROMBOCYTOPENIA, UNSPECIFIED Status: Chronic - Plan * Abdominal pain- resolved * Antiphospholipid Syndrome with Thrombocytopenia- platelet count is a bit improved, but not high enough to initiate Anticoagulation * Acute on chronic systolic heart failure- compensated * ESRD- continue dialysis * Anemia- chronic * Severe deconditioning- will re-institute PT * AFIB- his heart rate is stable- no anticoagulation due to severely low platelets * Patient's overall prognosis is guarded. * Awaiting placement
--- NOTE | 2018-11-14 09:28 | PRG ---
DATE OF SERVICE: 11/14/2018 SUBJECTIVE: Mr. Boo is a 48-year-old white male, followed up for his ESRD currently on maintenance hemodialysis. He is still complaining of some nausea. He can take about half of his meal. He denies any chest pain or shortness of breath. He still feels tired and not feeling well. OBJECTIVE: VITAL SIGNS: Blood pressure 157/99, heart rate 93, respiratory rate 15, and pulse ox 96%. GENERAL: Awake, alert, and comfortable, not in distress. SKIN: Adequate turgor. HEENT: Slightly pale conjunctivae. Anicteric sclerae. NECK: No neck mass. No carotid bruits. No JVD. CHEST: No deformities. LUNGS: Clear breath sounds. HEART: Normal sinus rhythm. No murmur. No gallops. No rubs. ABDOMEN: Globular, soft, nontender. No masses. EXTREMITIES: No edema. No deformities. MEDICATIONS: Medications of November 14, 2018, were reviewed. LABORATORY DATA: Laboratories of November 14, 2018; white count 3.9, hemoglobin 7.3. November 13, 2018; BUN 12, creatinine 3.02, potassium 3.5. ASSESSMENT AND PLAN: 1. End-stage renal disease, stable. We will continue current Wednesday, , and Wednesday dialysis regimen. Fluid removal only as tolerated. 2. Chronic thrombocytopenia. Platelet count is 26,000, which is stable. Hematology is following. 3. Nausea-p.r.n. supportive care. 4. Anemia. Continuing weekly Epogen. 5. Recheck basic metabolic profile and CBC in a.m. Job ID: [id number]
--- NOTE | 2018-11-14 11:22 | PQF ---
JOEL HUTCHINSON W. JR. KEATON, TONI MD [id number] [facility]- B05 [id number] CLINICAL DOCUMENTATION IMPROVEMENT CLARIFICATION FORM: ICD-10 Updated PLEASE DO AN ADDENDUM TO THE PROGRESS NOTE WITH ANY DOCUMENTATION UPDATES OR ADDITIONS AND CARRY THROUGH TO DC SUMMARY. THANK YOU. DATE: 11/14/18 ATTN: DR. Royce ROYAL Please exercise your independent, professional judgment in responding to the clarification form. Clinical indicators are provided on the bottom of this form for your review. Please check appropriate box(es): [ X] Sepsis due to: INFECTED RIJ DIALYSIS CATHETER [ ] Sepsis NOT Due to: INFECTED RIJ DIALYSIS CATHETER [ ] SEPSIS RULED OUT [ ] Localized infection without sepsis [ ] Other diagnosis [ ] Unable to determine In addition, please specify: Present on Admission (POA): [X ] Yes [ ] No [ ] Unable to determine For continuity of documentation, please document condition throughout progress notes and discharge summary. Thank You. CLINICAL INDICATORS - SIGNS / SYMPTOMS / LABS 11/02 H &P (VILMA) ASSESSMENT AND PLAN: 1) SEPSIS. THE PATIENT HAS FEVER. THE PATIENT HAS TACHYCARDIA. THE PATIENT HAS A POSSIBLE SOURCE OF BILATERAL INFILTRATES. WILL PLACE THE PT ON BROAD [facility] AND FOLLOW CULTURES. ANOTHER SOURCE COULD BE BACTEREMIA GIVEN THE HISTORY OF DIALYSIS 11/04 (PN (LELE) PLAN FEVER- DUE TO DIALYSIS CATHETER, WHICH WAS REMOVED 11/04 CONSULT (JENNIFER) HE WAS NOTED TO HAVE A DIALYSIS CATHETER LINE INFECTION AND PNEUMONIA. ASSESSMENT: 4). SEPSIS RISK: INFECTED DIALYSIS CATHETER ESRD TREATMENTS: REMOVAL OF DIALYSIS CATHETER (11/01) ZOSYN IV (11/04-11/10) THANK YOU ! DAVE (This form is maintained as a part of the permanent medical record) 2014 [employer] All Rights Reserved FARIBA [email or web address] [phone] ALEXANDRA
[2018-11-14] MEDS: Melatonin 3 MG TAB PO PRN (21:06)
[2018-11-14] MEDS: Ondansetron PF 4 MG/2 ML Vial IVP PRN (21:06)
[2018-11-15 05:39] LABS: Anion Gap 14 mmol/L (10-20); BUN (Urea Nitrogen) 22 mg/dL (8.9-20.6); Calc. Creatinine Clearance 27 mL/min (70-130); Calcium 8.1 mg/dL (7.8-10.44); Carbon Dioxide 27 mmol/L (22-29); Chloride 100 mmol/L (98-107); Estimated GFR-MDRD 15; Glucose 68 mg/dL (70-105); Potassium 3.7 mmol/L (3.5-5.1); Sodium 137 mmol/L (136-145)
[2018-11-15 05:58] LABS: #Eosinphils 0.1 thou/uL (0.0-0.7); #Lymphocytes 0.9 thou/uL (1.20-3.40); #Monocytes 0.3 thou/uL (0.11-0.59); #Neutrophils 2.6 thou/uL (1.40-6.50); %Basophils 0.3 % (0.0-1.0); %Eosinophils 1.6 % (0.0-10.0); %Lymphocytes 23.1 % (21.0-51.0); %Monocytes 6.9 % (0.0-10.0); %Neutrophils 68.1 % (42.0-75.0); Hemoglobin 6.7 g/dL (14.0-18.0); Mean Corpuscular Hemoglobin 29.2 pg (27.0-31.0); Mean Corpuscular Volume 91.4 fL (78.0-98.0); Mean Platelet Volume 11.3 fL (7.4-10.4); Platelet Count 30 thou/uL (130-400); Platelet Morphology Comment Appears Decreased; RBC Distribution Width 16.3 % (11.5-14.5); Red Blood Cell (RBC) Count 2.29 mill/uL (4.70-6.10); White Blood Cell (WBC) Count 3.9 thou/uL (4.8-10.8)
--- NOTE | 2018-11-15 09:37 | PRG ---
DATE OF SERVICE: 11/15/2018 SUBJECTIVE: Mr. Boo is a 48-year-old white male, followed up by the Renal Service for his maintenance hemodialysis. I have scheduled him for dialysis today. Fluid removal will only be done as tolerated by the patient. We have minimized his fluid removal in the last two dialysis session due to the low blood pressure. Blood pressure overtime has improved. He was also noted to be symptomatically anemic this morning. For that reason, 1 unit of packed RBC will be given. Please note, we have increased last week his Epogen regimen. No complaints of chest pain or shortness of breath. He does complain of being tired. OBJECTIVE: VITAL SIGNS: Blood pressure 139/75, heart rate 81, respiratory rate is 13, and pulse ox 96%. GENERAL: Awake, comfortable, supine, and somewhat lethargic. HEENT: Pale conjunctivae. Anicteric sclerae. NECK: No neck mass. No carotid bruits. No JVD. CHEST: No deformities. LUNGS: Clear breath sounds. No wheezing. No crackles. HEART: Normal sinus rhythm. No murmur. No gallops. No rubs. ABDOMEN: Globular, soft, and nontender. No masses. EXTREMITIES: No edema. No deformities. MEDICATIONS: Medications of November 15, 2018, was reviewed. LABORATORY DATA: Laboratories of November 15, 2018, white count 3.9 and hemoglobin 6.7. Sodium 137, potassium 3.7, chloride 100, carbon dioxide 24, BUN 22, creatinine 4.21, glucose 68, and calcium 8.1. Platelet count is 30,000. ASSESSMENT AND PLAN: 1. End-stage renal disease, stable. We will continue current hemodialysis regimen. Again, fluid removal only as tolerated by the patient. 2. Anemia. We will transfuse 1 unit of packed red blood cell with dialysis. Continue weekly Epogen with this patient. 3. Chronic thrombocytopenia, stabilizing. Hematology is following. 4. Low blood pressure - much improved. Continue Florinef supplementation. 5. Overall prognosis remains guarded. We will recheck another CBC and basic metabolic in a.m. Job ID: [id number]
--- NOTE | 2018-11-15 10:26 | PDOC.CTH ---
Cardiology Progress Note - Subjective pt. seen and eval. by me. No new overnight events. No cardiac complaints. - Objective Vital Signs Temp Pulse Ox 11/15/18 07:15 98.2 F 11/15/18 03:37 97.9 F 11/15/18 00:25 98 11/14/18 23:16 98.4 F Admit Weight 204 lb 12.8 oz Weight 198 lb 11/14/18 11/15/18 11/16/18 06:59 06:59 06:59 Intake Total 880 660 Balance 880 660 - Physical Examination General/Neuro: alert & oriented x3 Neck: no JVD present Lungs: CTA Heart: RRR Abdomen: soft - Telemetry Telemetry Rhythm: NSR - Labs Result Diagrams: 11/15/18 04:57 11/15/18 04:57 Troponin/CKMB CK-MB (CK-2) 1.0 ng/mL (0-6.6) 11/01/18 23:17 Troponin I 0.280 ng/mL (< 0.028) H 11/01/18 23:17 - Assessment/Plan 1. Atrial fibrillation with RVR - remains in SR with Digoxin PO 0.125mg on , Th, Sat; will start bblocker with stable VS. Not on OAC due to hx of thrombocytopenia (may start low dose of OAC as GI recommendation?) 2. 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 Acute on CKD with HD - managed by Dr De La Rosa 4. Non-ischemia CMY with s/p BiV AICD placement in 03/2018 5. Antiphospolipid syndrome, chronic thrombocytopenia - 6. Seizure disorder. stable. 7. Anemia - on Epoetin, for transfusion today with hemodialysis. 8. fever - resolved; ABX was d/joseph by PCP 9. abnormal LFTs 2/2 CHF - On HD 10. Nephrology will have to assist with the BP control. CLARISSE arroyo
[2018-11-15] MEDS ORDERED: Carvedilol 3.125 MG TAB PO SCH (10:30)
[2018-11-15] MEDS: Digoxin 0.125 MG TAB PO SCH (14:46)
[2018-11-15] MEDS: Fludrocortisone Acetate 0.1 MG TAB PO SCH (14:47)
[2018-11-15] MEDS: OXcarbazepine 300 MG TAB PO SCH ×2 (14:50→20:25)
[2018-11-15] MEDS: Polyethylene Glycol 3350 17 GM Packet PO SCH ×2 (14:50→14:55)
[2018-11-15] MEDS: Carvedilol 3.125 MG TAB PO SCH (14:52)
[2018-11-15] MEDS: Acetaminophen 325 MG TAB PO PRN (17:51)
--- NOTE | 2018-11-15 18:24 | PDOC.HOSPP ---
- Subjective Encounter Date: 11/15/18 Encounter Time: 09:45 Subjective: Mr. Boo was seen today in follow-up of abdominal pain. He does not have any complaints. He denies nausea, or abdominal pain today. - Objective Vital Signs & Weight: Vital Signs (12 hours) Temp Pulse Pulse Ox 11/15/18 14:55 99.8 F H 11/15/18 14:46 91 11/15/18 10:27 98.0 F 11/15/18 08:00 99 11/15/18 07:15 98.2 F Weight Admit Weight 204 lb 12.8 oz Weight 198 lb Most Recent Monitor Data Heart Rate from ECG 89 NIBP 126/62 NIBP BP-Mean 83 Respiration from ECG 22 SpO2 95 I&O: 11/14/18 11/15/18 11/16/18 06:59 06:59 06:59 Intake Total 880 660 120 Balance 880 660 120 Result Diagrams: 11/15/18 04:57 11/15/18 04:57 ROS - Medication Medications: Active Medications Generic Name Dose Route Start Last Admin Trade Name Freq PRN Reason Stop Dose Admin Acetaminophen 650 mg 11/02/18 00:45 11/15/18 17:51 Tylenol PO 650 mg Q4H PRN Administration Headache/Fever/Mild Pain (1-3) Carvedilol 3.125 mg 11/15/18 17:00 11/15/18 14:52 Coreg PO Not Given BID-WM NEPTALI Digoxin 0.125 mg 11/12/18 09:00 11/15/18 14:46 Lanoxin PO 0.125 mg TUTHSA NEPTALI Administration Epoetin Nain-epbx 10,000 unit 11/05/18 12:00 11/12/18 14:12 Retacrit SC 10,000 unit Q7D NEPTALI Administration Fludrocortisone Acetate 0.1 mg 11/03/18 09:00 11/15/18 14:47 Florinef PO 0.1 mg DAILY NEPTALI Administration Melatonin 6 mg 11/02/18 17:14 11/14/18 21:06 Melatonin PO 6 mg HS PRN Administration Insomnia Miscellaneous Medication 12.5 mg 11/08/18 07:30 11/15/18 14:45 Movantik PO 12.5 mg DAILY-AC NEPTALI Administration Ondansetron HCl 4 mg 11/02/18 00:45 11/14/18 08:19 Zofran Odt PO 4 mg Q6H PRN Administration Nausea/Vomiting Ondansetron HCl 4 mg 11/02/18 00:45 11/14/18 21:06 Zofran IVP 4 mg Q6H PRN Administration Nausea/Vomiting Oxcarbazepine 900 mg 11/08/18 21:00 11/15/18 14:50 Trileptal PO 900 mg BID NEPTALI Administration Polyethylene Glycol 17 gm 11/11/18 09:00 11/15/18 14:55 Miralax PO Not Given DAILY NEPTALI Sertraline HCl 50 mg 11/09/18 09:00 11/15/18 14:47 Zoloft PO 50 mg DAILY NEPTALI Administration Sodium Chloride 10 ml 11/05/18 21:00 11/15/18 14:50 Flush - Normal Saline IVF 10 ml Q12HR NEPTALI Administration - Exam Eye: PERRL, anicteric sclera Heart: RRR, no murmur, no gallops, no rubs, normal peripheral pulses Respiratory: CTAB, no wheezes, no rales, no ronchi, normal chest expansion, no tachypnea, normal percussion Gastrointestinal: soft, non-tender, non-distended, normal bowel sounds, no palpable masses, no hepatomegaly, no splenomegaly Extremities: no cyanosis, no clubbing, no edema Skin: normal turgor Hosp A/P (1) Abdominal pain Code(s): R10.9 - UNSPECIFIED ABDOMINAL PAIN Status: Resolved Qualifiers: Abdominal location: left lower quadrant Qualified Code(s): R10.32 - Left lower quadrant pain (2) Acute on chronic systolic heart failure, NYHA class 3 Code(s): I50.23 - ACUTE ON CHRONIC SYSTOLIC (CONGESTIVE) HEART FAILURE Status : Acute (3) Atrial fibrillation Code(s): I48.91 - UNSPECIFIED ATRIAL FIBRILLATION Status: Chronic Qualifiers: Atrial fibrillation type: paroxysmal Qualified Code(s): I48.0 - Paroxysmal atrial fibrillation (4) End stage renal disease on dialysis Code(s): N18.6 - END STAGE RENAL DISEASE; Z99.2 - DEPENDENCE ON RENAL DIALYSIS Status: Chronic (5) HTN (hypertension) Code(s): I10 - ESSENTIAL (PRIMARY) HYPERTENSION Status: Chronic Qualifiers: (6) Physical deconditioning Code(s): R53.81 - OTHER MALAISE Status: Chronic (7) Moderate protein-calorie malnutrition Code(s): E44.0 - MODERATE PROTEIN-CALORIE MALNUTRITION Status: Chronic (8) Antiphospholipid syndrome Code(s): D68.61 - ANTIPHOSPHOLIPID SYNDROME Status: Chronic (9) Thrombocytopenia Code(s): D69.6 - THROMBOCYTOPENIA, UNSPECIFIED Status: Chronic - Plan * Abdominal pain- resolved * Antiphospholipid Syndrome with Thrombocytopenia- platelet count continues to improve, but not enough to start anticoagulation * Acute on chronic systolic heart failure- compensated * ESRD- continue dialysis * Anemia- chronic * Severe deconditioning- continue PT * AFIB- stable * Patient's overall prognosis is guarded. * The patient and family have decided against shelter because the daily co-pay is prohibitive * Plan for discharge home tomorrow
[2018-11-15] MEDS: Melatonin 3 MG TAB PO PRN (21:19)
[2018-11-16 06:29] LABS: Platelet Count 23 thou/uL (130-400)
[2018-11-16 06:31] LABS: Hemoglobin 7.5 g/dL (14.0-18.0); Mean Corpuscular HGB CONC 33.2 g/dL (32.0-36.0); Mean Corpuscular Hemoglobin 30.6 pg (27.0-31.0); Mean Corpuscular Volume 92.4 fL (78.0-98.0); Mean Platelet Volume 12.7 fL (7.4-10.4); RBC Distribution Width 15.6 % (11.5-14.5); Red Blood Cell (RBC) Count 2.44 mill/uL (4.70-6.10)
[2018-11-16 06:32] LABS: #Basophils 0.1 thou/uL (0.0-0.2); #Eosinphils 0.1 thou/uL (0.0-0.7); #Lymphocytes 0.7 thou/uL (1.20-3.40); #Monocytes 0.2 thou/uL (0.11-0.59); #Neutrophils 2.9 thou/uL (1.40-6.50); %Basophils 1.5 % (0.0-1.0); %Eosinophils 1.5 % (0.0-10.0); %Lymphocytes 18.1 % (21.0-51.0); %Monocytes 5.1 % (0.0-10.0); %Neutrophils 73.8 % (42.0-75.0)
[2018-11-16 06:42] LABS: Anion Gap 15 mmol/L (10-20); BUN (Urea Nitrogen) 17 mg/dL (8.9-20.6); Calc. Creatinine Clearance 36 mL/min (70-130); Calcium 8.4 mg/dL (7.8-10.44); Carbon Dioxide 25 mmol/L (22-29); Chloride 101 mmol/L (98-107); Estimated GFR-MDRD 21; Glucose 82 mg/dL (70-105); Potassium 3.6 mmol/L (3.5-5.1); Sodium 137 mmol/L (136-145)
[2018-11-16] MEDS: Ondansetron PF 4 MG/2 ML Vial IVP PRN (08:42)
[2018-11-16] MEDS: Carvedilol 3.125 MG TAB PO SCH ×2 (08:42→18:17)
[2018-11-16] MEDS: OXcarbazepine 300 MG TAB PO SCH ×2 (08:42→20:33)
[2018-11-16] MEDS: Fludrocortisone Acetate 0.1 MG TAB PO SCH (08:42)
--- NOTE | 2018-11-16 08:42 | PDOC.HOSPP ---
- Subjective Encounter Date: 11/16/18 Encounter Time: 08:41 Subjective: Mr. Boo was seen today in follow-up of abdominal pain. He does not have any new complaints. - Objective Vital Signs & Weight: Vital Signs (12 hours) Temp 11/16/18 07:29 98.7 F 11/16/18 03:50 97.3 F L 11/16/18 00:00 98.3 F Weight Admit Weight 204 lb 12.8 oz Weight 198 lb Most Recent Monitor Data Heart Rate from ECG 86 NIBP 118/71 NIBP BP-Mean 86 Respiration from ECG 17 SpO2 98 I&O: 11/15/18 11/16/18 11/17/18 06:59 06:59 06:59 Intake Total 660 180 Output Total 750 Balance 660 -570 Result Diagrams: 11/16/18 05:59 11/16/18 05:59 ROS - Medication Medications: Active Medications Generic Name Dose Route Start Last Admin Trade Name Freq PRN Reason Stop Dose Admin Acetaminophen 650 mg 11/02/18 00:45 11/15/18 17:51 Tylenol PO 650 mg Q4H PRN Administration Headache/Fever/Mild Pain (1-3) Carvedilol 3.125 mg 11/15/18 17:00 11/15/18 14:52 Coreg PO Not Given BID-WM NEPTALI Digoxin 0.125 mg 11/12/18 09:00 11/15/18 14:46 Lanoxin PO 0.125 mg TUTHSA NEPTALI Administration Epoetin Nain-epbx 10,000 unit 11/05/18 12:00 11/12/18 14:12 Retacrit SC 10,000 unit Q7D NEPTALI Administration Fludrocortisone Acetate 0.1 mg 11/03/18 09:00 11/15/18 14:47 Florinef PO 0.1 mg DAILY NEPTALI Administration Melatonin 6 mg 11/02/18 17:14 11/15/18 21:19 Melatonin PO 6 mg HS PRN Administration Insomnia Miscellaneous Medication 12.5 mg 11/08/18 07:30 11/15/18 14:45 Movantik PO 12.5 mg DAILY-AC NEPTALI Administration Ondansetron HCl 4 mg 11/02/18 00:45 11/14/18 08:19 Zofran Odt PO 4 mg Q6H PRN Administration Nausea/Vomiting Ondansetron HCl 4 mg 11/02/18 00:45 11/14/18 21:06 Zofran IVP 4 mg Q6H PRN Administration Nausea/Vomiting Oxcarbazepine 900 mg 11/08/18 21:00 11/15/18 20:25 Trileptal PO 900 mg BID NEPTALI Administration Polyethylene Glycol 17 gm 11/11/18 09:00 11/15/18 14:55 Miralax PO Not Given DAILY NEPTALI Sertraline HCl 50 mg 11/09/18 09:00 11/15/18 14:47 Zoloft PO 50 mg DAILY NEPTALI Administration Sodium Chloride 10 ml 11/05/18 21:00 11/15/18 20:27 Flush - Normal Saline IVF 10 ml Q12HR NEPTALI Administration - Exam Eye: PERRL, anicteric sclera Heart: RRR, no murmur, no gallops, no rubs, normal peripheral pulses Respiratory: CTAB, no wheezes, no rales, no ronchi, normal chest expansion Gastrointestinal: soft, non-tender, non-distended, normal bowel sounds, no palpable masses Extremities: no cyanosis, 1+ LE edema (+ ankle edema, and chronic venous stasis changes) Hosp A/P (1) Abdominal pain Code(s): R10.9 - UNSPECIFIED ABDOMINAL PAIN Status: Resolved Qualifiers: Abdominal location: left lower quadrant Qualified Code(s): R10.32 - Left lower quadrant pain (2) Acute on chronic systolic heart failure, NYHA class 3 Code(s): I50.23 - ACUTE ON CHRONIC SYSTOLIC (CONGESTIVE) HEART FAILURE Status : Acute (3) Atrial fibrillation Code(s): I48.91 - UNSPECIFIED ATRIAL FIBRILLATION Status: Chronic Qualifiers: Atrial fibrillation type: paroxysmal Qualified Code(s): I48.0 - Paroxysmal atrial fibrillation (4) End stage renal disease on dialysis Code(s): N18.6 - END STAGE RENAL DISEASE; Z99.2 - DEPENDENCE ON RENAL DIALYSIS Status: Chronic (5) HTN (hypertension) Code(s): I10 - ESSENTIAL (PRIMARY) HYPERTENSION Status: Chronic Qualifiers: (6) Physical deconditioning Code(s): R53.81 - OTHER MALAISE Status: Chronic (7) Moderate protein-calorie malnutrition Code(s): E44.0 - MODERATE PROTEIN-CALORIE MALNUTRITION Status: Chronic (8) Antiphospholipid syndrome Code(s): D68.61 - ANTIPHOSPHOLIPID SYNDROME Status: Chronic (9) Thrombocytopenia Code(s): D69.6 - THROMBOCYTOPENIA, UNSPECIFIED Status: Chronic - Plan * Abdominal pain- resolved * Antiphospholipid Syndrome with Thrombocytopenia- platelet count continues to be low * Acute on chronic systolic heart failure- compensated * ESRD- continue dialysis * Discussed the patient's condition with his . She tells me she would like [facility] * Plan to discharge home this evening.
[2018-11-16] MEDS: Acetaminophen 325 MG TAB PO PRN ×3 (08:52→22:01)
--- NOTE | 2018-11-16 10:03 | PRG ---
DATE OF SERVICE: 11/16/2018 SUBJECTIVE: Mr. Boo is a 48-year-old white male, followed up by the Renal Service for his maintenance hemodialysis. He underwent dialysis yesterday. No difficulty with dialysis. Fluid removal was tolerated. His hypotension is also much improved. This morning, he voices no new complaints. He is still intermittently confused at times. Otherwise, no complaints of abdominal pain, chest pain, or shortness of breath. OBJECTIVE: VITAL SIGNS: Blood pressure 118/71, heart rate 86, respiratory rate 17, pulse ox 98%, temperature 98.7. GENERAL: Noted to be awake, alert, comfortable, not in overt distress. SKIN: Decreased turgor. HEENT: He has slightly pale conjunctivae. Anicteric sclerae. NECK: No neck mass. No carotid bruits. No JVD. CHEST: No deformities. LUNGS: Clear breath sounds. No wheezing. No crackles. HEART: Normal sinus rhythm. No murmur. No gallops. No rubs. ABDOMEN: Globular, soft, and nontender. No masses. EXTREMITIES: No edema. No deformities. MEDICATIONS: Medications of November 16, 2018, were reviewed. LABORATORY DATA: Laboratories of November 16, 2018: White count 4, hemoglobin 7.5. Sodium 137, potassium 3.6, chloride 101, carbon dioxide 25, BUN 17, creatinine 3.23, glucose 82, calcium 8.4. ASSESSMENT AND PLAN: 1. End-stage renal disease, stable, tolerating current hemodialysis regimen. We will continue Wednesday, , and Wednesday dialysis. Fluid removal only as tolerated. 2. Hypotension, much improved. 3. Anemia, status post blood transfusion with dialysis yesterday. Continue weekly Epogen. Recheck CBC again in a.m. 4. Chronic thrombocytopenia - Hematology following. Overall, agree with current management. Recheck CBC. Job ID: [id number]
--- NOTE | 2018-11-16 10:41 | PDOC.CTH ---
Cardiology Progress Note - Subjective The pt seen and examined. No overnight events. He cont having ABD cramping with food. - Objective Vital Signs Temp Pulse Ox 11/16/18 08:00 98 11/16/18 07:29 98.7 F 11/16/18 03:50 97.3 F L 11/16/18 00:00 98.3 F Admit Weight 204 lb 12.8 oz Weight 198 lb 11/15/18 11/16/18 11/17/18 06:59 06:59 06:59 Intake Total 660 180 Output Total 750 Balance 660 -570 - Physical Examination General/Neuro: alert & oriented x3 Neck: no JVD present Lungs: other: (corses and dimished at bases) Heart: RRR Abdomen: soft Extremities: other: (No edema) - Telemetry Telemetry Rhythm: SR - Labs Result Diagrams: 11/16/18 05:59 11/16/18 05:59 Troponin/CKMB CK-MB (CK-2) 1.0 ng/mL (0-6.6) 11/01/18 23:17 Troponin I 0.280 ng/mL (< 0.028) H 11/01/18 23:17 - Assessment/Plan 1. Atrial fibrillation with RVR - remains in SR with Digoxin PO 0.125mg on , Th, Sat; On Coreg 3.125mg BID; Not on OAC due to hx of thrombocytopenia (may start low dose of OAC as GI recommendation?) 2. 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 Acute on CKD with HD - managed by Dr De La Rosa 4. Non-ischemic CMY with s/p BiV AICD placement in 03/2018 5. Antiphospolipid syndrome, chronic thrombocytopenia - 6. Seizure disorder. stable. 7. Anemia - on Epoetin, for transfusion today with hemodialysis. 8. fever - resolved; ABX was d/joseph by PCP 9. abnormal LFTs 2/2 CHF - On HD 10. Nephrology will have to assist with the BP control. MAR reviewed Review of Systems - Review of Systems Constitutional: reports: weakness EENTM: reports: no symptoms reported Respiratory: reports: no symptoms reported Cardiac (ROS): reports: no symptoms reported ABD/GI: reports: see HPI
[2018-11-16] MEDS: Polyethylene Glycol 3350 17 GM Packet PO SCH (14:32)
--- NOTE | 2018-11-16 15:55 | PDOC.EVN ---
Event Note - Event Note Event Note: The patient's discharge was held due to concerns that Home Health will not be adequate for the patient's needs. The Palliative Care team would also like to meet with the patient as well prior to discharge.
[2018-11-16] MEDS: Melatonin 3 MG TAB PO PRN (20:33)
[2018-11-17 05:24] LABS: #Eosinphils 0.1 thou/uL (0.0-0.7); #Lymphocytes 0.9 thou/uL (1.20-3.40); #Monocytes 0.2 thou/uL (0.11-0.59); %Basophils 1.5 % (0.0-1.0); %Eosinophils 2.3 % (0.0-10.0); %Lymphocytes 28.6 % (21.0-51.0); %Monocytes 6.4 % (0.0-10.0); %Neutrophils 61.3 % (42.0-75.0); Hemoglobin 7.8 g/dL (14.0-18.0); Mean Corpuscular Volume 93.7 fL (78.0-98.0); Mean Platelet Volume 11.9 fL (7.4-10.4); Platelet Count 26 thou/uL (130-400); RBC Distribution Width 15.7 % (11.5-14.5); Red Blood Cell (RBC) Count 2.59 mill/uL (4.70-6.10); White Blood Cell (WBC) Count 3.3 thou/uL (4.8-10.8)
--- NOTE | 2018-11-17 08:30 | PRG ---
DATE OF SERVICE: 11/17/2018 SUBJECTIVE: Mr. Boo is a 48-year-old white male with ESRD and followed up by the [facility] for his maintenance hemodialysis. In the last several days, he has been tolerating his hemodialysis. I am currently dialyzing him. We are currently attempting 1.5 L of fluid removal as tolerated by the patient. He voices no new complaints. He still has his chronic abdominal pain, which is intermittent in nature. GI has already evaluated him. Discharge is placed on hold due to logistics. Unclear if the family can take care of the patient if he is discharged to home. The patient voices no new complaints. No chest pain. No shortness of breath. OBJECTIVE: VITAL SIGNS: Blood pressure 130/75, heart rate 77, respiratory rate 12. GENERAL: Noted to be awake, supine, comfortable, not in distress. SKIN: Adequate turgor. HEENT: Slightly pale conjunctivae. Anicteric sclerae. NECK: No neck mass. No carotid bruits. No JVD. CHEST: No deformities. LUNGS: Clear breath sounds. HEART: Normal sinus rhythm. No murmur. No gallops. No rubs. ABDOMEN: Globular, soft, nontender. No masses. EXTREMITIES: No edema. No deformities. MEDICATIONS: Medications of November 17, 2018, reviewed. LABORATORY DATA: Laboratories of November 17, 2018; white count 3.3, hemoglobin 7.8, platelet count 26,000. ASSESSMENT AND PLAN: 1. End-stage renal disease, stable. Continuing current hemodialysis regimen. Fluid removal as tolerated by the patient. 2. Chronic thrombocytopenia. Hematology following. Heparin on hold with dialysis. 3. Chronic anemia-continuing weekly Epogen. P.r.n. blood transfusion. 4. Cardiomyopathy-Cardiology is following. Stable. Job ID: [id number]
[2018-11-17] MEDS: Acetaminophen 325 MG TAB PO PRN ×2 (10:32→20:54)
[2018-11-17] MEDS: Ondansetron ODT 4 MG TAB PO PRN (10:32)
[2018-11-17] MEDS: Fludrocortisone Acetate 0.1 MG TAB PO SCH (10:33)
[2018-11-17] MEDS: Digoxin 0.125 MG TAB PO SCH (10:33)
[2018-11-17] MEDS: OXcarbazepine 300 MG TAB PO SCH ×2 (10:33→20:55)
[2018-11-17] MEDS: Carvedilol 3.125 MG TAB PO SCH ×2 (10:33→18:42)
[2018-11-17] MEDS: Polyethylene Glycol 3350 17 GM Packet PO SCH (10:33)
[2018-11-17] MEDS ORDERED: Vancomycin HCl 1.5 GM in Sodium Chloride 0.9% 250 ML 300 ML IVPB SCH (12:00)
[2018-11-17] MEDS ORDERED: Vancomycin HCl 750 MG in Sodium Chloride 0.9% 250 ML 250 ML IVPB SCH (12:00)
[2018-11-17] MEDS ORDERED: Pharmacy to Dose VANCOMYCIN/MEROPENEM IVPB PRN (12:00)
[2018-11-17] MEDS ORDERED: Vancomycin HCl 500 MG in Sodium Chloride 0.9% 100 ML IVPB SCH (12:00)
[2018-11-17] MEDS ORDERED: Vancomycin HCl 1.25 GM in Sodium Chloride 0.9% 250 ML 250 ML IVPB SCH (12:00)
[2018-11-17] MEDS ORDERED: Vancomycin HCl 1 GM in Premix Bag 1 BAG IVPB SCH (12:00)
[2018-11-17] MEDS ORDERED: HOLD VANCOMYCIN FOR LEVEL >20 FS SCH (12:00)
--- NOTE | 2018-11-17 12:53 | PRG ---
DATE OF SERVICE: 11/17/2018 SUBJECTIVE: The patient is seen and examined at bedside. He just came back from the dialysis. His temperature is up to 101.5. Apparently, he was found to be hypoxic during dialysis and his pulse oximetry went down to the high 80s. He was placed on oxygen during dialysis. He feels weak. His appetite is poor. OBJECTIVE: VITAL SIGNS: Blood pressure is 130/75, pulse is 77, respiratory rate is 12, and O2 saturation is 95 on oxygen. GENERAL: He looks tired and exhausted. He follows my commands. HEENT: His pupils are responding to light. Sclerae are nonicteric. Conjunctivae are palish. Oral mucosa is somewhat dry. NECK: Supple. LUNGS: Crackles and rales at the middle part of the left lung. HEART: S1 and S2 normal. No S3. No S4. ABDOMEN: Soft, nontender, and nondistended. AICD in place. EXTREMITIES: Lower extremities 1 to 2+ peripheral edema similar bilateral on both lower extremities. NEUROLOGIC: He follows my commands. He moves his all 4 extremities. He does not have any motor deficits. LABORATORY DATA: White count of 3.3, hemoglobin 7.8, hematocrit 24.2, and platelet count 26,000. Chemistry was not done this morning. IMPRESSION: 1. Hypoxia. This is along with new onset of fever up to 101.6. The patient is going to get 2 cultures of his blood. We will start him on vancomycin and meropenem. He is immunocompromised. We will do the chest x-ray. 2. Abdominal pain, resolved. 3. Anorexia. We will start him on Megace. 4. Acute on chronic systolic heart failure, class III. 5. Automatic implantable cardioverter-defibrillator in place. 6. History of atrial fibrillation, now in sinus rhythm. 7. End-stage renal disease, on dialysis 3 times a week. 8. Hypertension. 9. Physical deconditioning. 10. Moderate protein malnutrition. 11. Antiphospholipid syndrome with thrombocytopenia. PLAN: As I mentioned above. We will continue O2 and the discharge is on hold and we will talk to his regarding feeding. Job ID: [id number]
[2018-11-17] MEDS: MEROPENEM 1 GM/50 ML 1 GM in Premix Bag 1 BAG IVPB SCH (14:25)
--- NOTE | 2018-11-17 15:59 | PDOC.CTH ---
Cardiology Progress Note - Subjective The pt seen and examined. No overnight events. Very lethargic and fever after HD. - Objective Vital Signs Temp Pulse Pulse Ox 11/17/18 15:21 98.7 F 11/17/18 11:21 101.6 F H 11/17/18 10:33 91 11/17/18 08:00 99 11/17/18 07:13 98.6 F Admit Weight 204 lb 12.8 oz Weight 198 lb 11/16/18 11/17/18 11/18/18 06:59 06:59 06:59 Intake Total 180 690 Output Total 750 Balance -570 690 - Physical Examination General/Neuro: alert & oriented x3 Neck: no JVD present Lungs: other: (diminished at bases) Heart: RRR Abdomen: soft Extremities: other: (No edema) - Telemetry Telemetry Rhythm: SR - Labs Result Diagrams: 11/17/18 04:23 11/16/18 05:59 Troponin/CKMB CK-MB (CK-2) 1.0 ng/mL (0-6.6) 11/01/18 23:17 Troponin I 0.280 ng/mL (< 0.028) H 11/01/18 23:17 - Assessment/Plan 1. Atrial fibrillation with RVR - remains in SR with Digoxin PO 0.125mg on , Th, Sat; On Coreg 3.125mg BID; Not on OAC due to hx of thrombocytopenia 2. 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 Acute on CKD with HD - managed by Dr De La Rosa 4. Non-ischemic CMY with s/p BiV AICD placement in 03/2018 5. Antiphospolipid syndrome, chronic thrombocytopenia - 6. Seizure disorder. stable. 7. Anemia - on Epoetin, for transfusion today with hemodialysis. 8. fever - elevated today; ABX IV by PCP 9. abnormal LFTs 2/2 CHF - On HD 10. Nephrology will have to assist with the BP control. CLARISSE reviewed Pt. seen and eval. by me. He isn't feeling well today and appears to be septic. I agree with the A/P by the NETWORKS COMPUTER CONSULTANT. He remains in NSR at the present. Chest clear anteriorly. RRR. No edema. I spoke to his this PM, she is considering hospice and a DNR status. Unfortunate pt. with multiple medical problems. nadege Review of Systems - Review of Systems Constitutional: reports: see HPI
--- NOTE | 2018-11-17 16:32 | RAD ---
PORTABLE UPRIGHT FRONTAL CHEST RADIOGRAPH: Date: 11/17/18 COMPARISON: 11/03/18. HISTORY: Hypoxia. FINDINGS: Stable right-sided dialysis catheter and left-sided AICD. No pneumothorax. There is interstitial opac ity in the perihilar regions in both lung bases, worsened. Small bilateral pleural effusions are note d. There is hazy air space disease in the perihilar regions and both lung bases, worsened as well. IMPRESSION: Findings suggesting interstitial and alveolar pulmonary edema. Infectious pneumonitis cannot be exclu ded. Recommend follow-up imaging following treatment to document resolution. POS: TPC
[2018-11-18] MEDS: MEROPENEM 1 GM/50 ML 1 GM in Premix Bag 1 BAG IVPB SCH ×2 (01:14→17:55)
[2018-11-18] MEDS: Acetaminophen 325 MG TAB PO PRN ×2 (09:19→20:11)
[2018-11-18] MEDS: Fludrocortisone Acetate 0.1 MG TAB PO SCH (09:19)
[2018-11-18] MEDS: OXcarbazepine 300 MG TAB PO SCH ×2 (09:19→20:07)
[2018-11-18] MEDS: Carvedilol 3.125 MG TAB PO SCH ×2 (09:19→17:55)
[2018-11-18] MEDS: Megestrol Acetate 800 MG/20 ML UDCUP PO SCH (09:19)
[2018-11-18] MEDS: Polyethylene Glycol 3350 17 GM Packet PO SCH (09:20)
--- NOTE | 2018-11-18 09:58 | PRG ---
DATE OF SERVICE: 11/18/2018 SUBJECTIVE: Mr. Boo is a 48-year-old white male with ESRD. We are following him up for his maintenance hemodialysis. He underwent dialysis yesterday. However, after dialysis, the patient was noted to be febrile. He is currently being treated empirically with IV antibiotics. Blood culture has been done yesterday, which so far showed no growth today. OBJECTIVE: VITAL SIGNS: Blood pressure is 149/86, temperature 98.9, pulse ox 99% on 2 L, heart rate 85, and respiratory rate 18. GENERAL: Awake, supine, lethargic, not in overt distress. SKIN: Adequate turgor. HEENT: Slightly pale conjunctivae. Anicteric sclerae. No neck mass. No carotid bruits. No JVD. CHEST: No deformities. LUNGS: Clear breath sounds. HEART: Normal sinus rhythm. No murmur. No gallops. No rubs. ABDOMEN: Globular, soft, nontender. No masses. EXTREMITIES: No edema. No deformities. MEDICATIONS: Medications of November 18, 2018, reviewed. LABORATORY DATA: Laboratories of November 18, 2018, none done. Blood culture negative today, no growth to date. ASSESSMENT AND PLAN: 1. Fever, on empiric IV antibiotics. Continue current management. Awaiting blood culture results. 2. End-stage renal disease, stable. We will continue current hemodialysis regimen of Wednesday, , and Wednesday. So far, he is tolerating said treatment. No changes to be made with current dialysis regimen. 3. Anemia. Continuing weekly Epogen. 4. His overall prognosis remains guarded. Job ID: [id number]
--- NOTE | 2018-11-18 12:18 | PRG ---
DATE OF SERVICE: 11/18/2018 SUBJECTIVE: The patient is seen and examined at the bedside. He is sitting upright and eating his breakfast. He looks significantly better, much less exhausted, and physical therapist is waiting for him to finish his breakfast so he can do the session. OBJECTIVE: VITAL SIGNS: Blood pressure is 109/84, pulse is 80, respiratory rate is 22, O2 saturation is 98% on 2 L by nasal cannula. SKIN: He has multiple bruises all over his body that is most likely from thrombocytopenia. HEENT: His pupils are responding to light properly. Sclerae are nonicteric. Oral mucosa is moist. NECK: Supple. LUNGS: Breath sounds somewhat diminished at both bases with some crackles occasional bilaterally at both bases. No wheezing. HEART: S1 and S2 distant. No S3 and no S4. ABDOMEN: Soft and nontender. EXTREMITIES: A 1+ peripheral edema on lower extremities, similar bilaterally. NEUROLOGIC: He follows my commands. He moves his all 4 extremities. LABORATORY DATA: Labs are pending. Microbiology, two blood cultures are negative so far. IMPRESSION: 1. Hypoxia with fever, most likely pulmonary source, started on vancomycin and meropenem. We will continue that. We will get additional chest x-ray this morning and we will get ID consult with Dr. Kenney. He does not have much fever anymore and cultures are negative so far. 2. Abdominal pain, resolved. 3. Anorexia. The patient started eating better. He was started on Megace yesterday. 4. Acute on chronic systolic heart failure, class III. 5. Automatic implantable cardioverter defibrillator in place. 6. History of atrial fibrillation, now in sinus rhythm. 7. End-stage renal disease, on dialysis 3 times a week, managed by mig welder. 8. Hypertension. 9. Physical deconditioning. 10. Moderate protein malnutrition. 11. Antiphospholipid syndrome with thrombocytopenia, chronic. PLAN: I had a long discussion with the patient's yesterday. She is supposed to discuss with him hospice care, but in order to do that, he would have to agree to stop dialysis. For now, we will continue his IV antibiotics. We will get ID consult with Dr. Kenney, and continue physical therapy and the rest of the regimen. Job ID: [id number]
--- NOTE | 2018-11-18 12:30 | PDOC.CTH ---
Cardiology Progress Note - Subjective The pt seen and examined. No overnight events. No cardiac complaints. - Objective Vital Signs Temp Pulse Resp Pulse Ox 11/18/18 11:24 80 22 H 98 11/18/18 11:06 97.2 F L 11/18/18 07:37 99 11/18/18 07:33 98.9 F 11/18/18 07:13 85 18 11/18/18 04:00 97.5 F L Admit Weight 204 lb 12.8 oz Weight 198 lb 6.656 oz 11/17/18 11/18/18 11/19/18 06:59 06:59 06:59 Intake Total 690 560 Balance 690 560 - Physical Examination General/Neuro: alert & oriented x3 Lungs: other: (diminished at bases) Heart: RRR Abdomen: soft Extremities: other: (No edema) - Telemetry Telemetry Rhythm: SR - Labs Result Diagrams: 11/17/18 04:23 11/16/18 05:59 Troponin/CKMB CK-MB (CK-2) 1.0 ng/mL (0-6.6) 11/01/18 23:17 Troponin I 0.280 ng/mL (< 0.028) H 11/01/18 23:17 - Assessment/Plan 1. Atrial fibrillation with RVR - remains in SR with Digoxin PO 0.125mg on , Th, Sat; On Coreg 3.125mg BID; Not on OAC due to hx of thrombocytopenia 2. 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 Acute on CKD with HD - managed by Dr De La Rosa 4. Non-ischemic CMY with s/p BiV AICD placement in 03/2018 5. Antiphospolipid syndrome, chronic thrombocytopenia - 6. Seizure disorder. stable. 7. Anemia - on Epoetin, for transfusion today with hemodialysis. 8. fever - elevated today; ABX IV by PCP 9. abnormal LFTs 2/2 CHF - On HD 10. Nephrology will have to assist with the BP control. MAR reviewed * The pt's is considering hospice and a DNR status. However, he has to stop HD for hospice. Pt. seen and eval. by me. He isn't feeling well today. No new complaints. I agree with the A/P by the MANUFACTURING WORKER. He remains in NSR at the present. Chest clear anteriorly. RRR. No edema. Review of Systems - Review of Systems Constitutional: reports: weakness EENTM: reports: no symptoms reported Respiratory: reports: no symptoms reported Cardiac (ROS): reports: no symptoms reported ABD/GI: reports: no symptoms reported : reports: no symptoms reported
--- NOTE | 2018-11-18 13:18 | RAD ---
XR Chest 1 View HISTORY: Hypoxemia COMPARISON: 11/17/2018 FINDINGS: There is mild interval improvement in the pulmonary edema since the previous day's exam. The remainde r the exam is otherwise stable.
[2018-11-18] MEDS: hydrOXYzine 10 MG TAB PO PRN ×2 (14:47→22:51)
[2018-11-18] MEDS: Melatonin 3 MG TAB PO PRN (21:53)
[2018-11-19] MEDS ORDERED: Lidocaine Viscous Sol 2% 15 ml UD Cup SSW PRN (01:37)
[2018-11-19] MEDS ORDERED: ALPRAZolam 0.25 MG TAB PO SCH (02:30)
[2018-11-19] MEDS: Acetaminophen 325 MG TAB PO PRN ×3 (02:45→21:44)
[2018-11-19] MEDS: MEROPENEM 1 GM/50 ML 1 GM in Premix Bag 1 BAG IVPB SCH ×2 (02:45→13:56)
[2018-11-19 08:48] LABS: Vancomycin, Random 16.6 ug/mL (See Comment)
[2018-11-19 09:02] LABS: #Eosinphils 0.1 thou/uL (0.0-0.7); #Lymphocytes 1.3 thou/uL (1.20-3.40); #Monocytes 0.3 thou/uL (0.11-0.59); #Neutrophils 2.5 thou/uL (1.40-6.50); %Basophils 0.5 % (0.0-1.0); %Eosinophils 2.2 % (0.0-10.0); %Lymphocytes 31.1 % (21.0-51.0); %Monocytes 7.3 % (0.0-10.0); %Neutrophils 58.9 % (42.0-75.0); Mean Corpuscular HGB CONC 31.9 g/dL (32.0-36.0); Mean Corpuscular Hemoglobin 29.5 pg (27.0-31.0); Mean Corpuscular Volume 92.5 fL (78.0-98.0); Mean Platelet Volume 11.4 fL (7.4-10.4); Platelet Count 25 thou/uL (130-400); RBC Distribution Width 15.5 % (11.5-14.5); Red Blood Cell (RBC) Count 2.73 mill/uL (4.70-6.10); White Blood Cell (WBC) Count 4.3 thou/uL (4.8-10.8)
[2018-11-19 09:06] LABS: Albumin 2.5 g/dL (3.5-5.0); Anion Gap 15 mmol/L (10-20); BUN (Urea Nitrogen) 23 mg/dL (8.9-20.6); BUN/Creatinine Ratio 6.55; Calc. Creatinine Clearance 33 mL/min (70-130); Calcium 8.3 mg/dL (7.8-10.44); Carbon Dioxide 23 mmol/L (22-29); Chloride 100 mmol/L (98-107); Estimated GFR-MDRD 19; Glucose 88 mg/dL (70-105); Phosphorus 3.5 mg/dL (2.3-4.7); Potassium 3.6 mmol/L (3.5-5.1); Sodium 134 mmol/L (136-145)
--- NOTE | 2018-11-19 09:12 | PDOC.CTH ---
Cardiology Progress Note - Subjective Pt somnolent. No complaints - Objective Vital Signs Temp Pulse Resp Pulse Ox 11/19/18 08:25 78 16 98 11/19/18 07:21 97.2 F L 11/19/18 03:47 98.6 F 11/19/18 00:00 99.0 F Admit Weight 204 lb 12.8 oz Weight 200 lb 6.403 oz 11/18/18 11/19/18 11/20/18 06:59 06:59 06:59 Intake Total 560 710 Output Total 150 Balance 560 560 - Physical Examination General/Neuro: other: (somnolent. cachectic) Neck: no JVD present Lungs: unlabored respirations Heart: PMI normal, RRR Abdomen: no HSM, NT/ND, soft Extremities: + femoral B - Labs Result Diagrams: 11/19/18 08:50 11/19/18 08:20 Troponin/CKMB CK-MB (CK-2) 1.0 ng/mL (0-6.6) 11/01/18 23:17 Troponin I 0.280 ng/mL (< 0.028) H 11/01/18 23:17 - Assessment/Plan Afib Cardiomyopathy Antiophospholipid antibody syndrome Pancytopenia Fever CKD No new recommendations pen[facility]entiary prognosis poor Dr. Jefferson to see on Wednesday. Please call if cardiac questions arise
[2018-11-19] MEDS: Polyethylene Glycol 3350 17 GM Packet PO SCH (10:00)
[2018-11-19] MEDS: OXcarbazepine 300 MG TAB PO SCH ×2 (10:00→21:44)
[2018-11-19] MEDS ORDERED: Heparin 10,000 UNITS/ 10 ML VIAL ONE (10:00)
[2018-11-19] MEDS: Fludrocortisone Acetate 0.1 MG TAB PO SCH (10:00)
[2018-11-19] MEDS: Megestrol Acetate 800 MG/20 ML UDCUP PO SCH (10:02)
[2018-11-19] MEDS: Multivitamin W/ Minerals 1 TAB PO SCH (10:02)
[2018-11-19] MEDS: Carvedilol 3.125 MG TAB PO SCH ×2 (10:02→16:53)
[2018-11-19] MEDS: Digoxin 0.125 MG TAB PO SCH (10:05)
[2018-11-19] MEDS: EPOETIN ALFA-EPBX (ESRD) 10,000 UNIT/ML VIAL SC SCH (12:55)
--- NOTE | 2018-11-19 13:58 | PRG ---
DATE OF SERVICE: 11/19/2018 SUBJECTIVE: The patient is seen and examined at bedside. He seems to be quite drowsy. He wants to go back to sleep. He does not have much complaints to offer. He did not eat breakfast at all. OBJECTIVE: VITAL SIGNS: Blood pressure is 89/56, pulse is 78, respiratory rate is 16, O2 saturations 98% on 2 L by nasal cannula. GENERAL: He looks sleepy. HEENT: His pupils are responding to light properly. Conjunctivae are pinkish. Oral mucosa is somewhat on the clothespin drier operator side. NECK: Supple. LUNGS: Breath sounds diminished at both bases with few crackles bilaterally at both bases. HEART: S1 and S2, somewhat distant. No S3. No S4. ABDOMEN: Soft, nontender. EXTREMITIES: No clubbing or cyanosis. 1+ peripheral edema on both lower extremities. NEUROLOGIC: He follows my commands. He wakes up when he is asked to do that, but he falls asleep. He says that he is tired and he wants to get some rest. SKIN: His skin is bruised in multiple places all over his body. LABORATORY DATA: Labs showed a white count of 12.3, hemoglobin 8.0, hematocrit 25.2, platelet count is 25,000. Chemistry showed sodium of 134, potassium 3.6, chloride 100, CO2 of 23, BUN 23, creatinine 3.51, albumin 2.5, and random vancomycin is 16.6. Microbiology; two blood cultures, no growth in 48 hours. IMPRESSION: 1. Hypoxia with fever, resolved. The patient is on vancomycin and meropenem. Since the cultures came back negative, I am going to stop both antibiotics if it is recommended per Dr. Kenney, who is supposed to see the patient. 2. Abdominal pain, resolved. 3. Anorexia, still a problem. He is on Megace to continue. 4. Acute on chronic systolic heart failure, class III. 5. Automatic implantable cardioverter-defibrillator in place. 6. History of atrial fibrillation, now in sinus. 7. End-stage renal disease, on dialysis 3 times a week. 8. Hypertension. 9. Physical deconditioning. 10. Antiphospholipid syndrome with thrombocytopenia, chronic. 11. Moderate protein malnutrition. PLAN: We will stop both antibiotics if it is okay with Dr. Kenney or he recommends otherwise. We will continue PT. We will try to discuss a situation with the patient's . She was supposed to talk to the patient about possibility of coming off dialysis and getting hospice services, and at this point, we are going to continue the full regimen. Job ID: [id number]
--- NOTE | 2018-11-19 16:10 | PRG ---
DATE OF SERVICE: 11/19/2018 SERVICE: Nephrology. SUBJECTIVE: A 48-year-old male with known history of end-stage renal disease from antiphospholipid syndrome, who was admitted due to acute onset of fever and abdominal pain, associated with abnormal liver enzymes, concerning for cholecystitis. Nephrology is seeing the patient for end-stage renal disease management. No new problem. Last dialysis was 2 days ago. The patient is due for hemodialysis today. OBJECTIVE: VITAL SIGNS: Temperature 99.1, pulse 73, respiratory rate 18, SpO2 of 93% on 2L nasal cannula, and blood pressure is 116/77. GENERAL: Chronically ill-looking male, in no obvious distress. Afebrile and anicteric. HEENT: Normocephalic and atraumatic. CARDIOVASCULAR: Irregular rhythm and rate. Normal heart sounds noted. RESPIRATORY: Fair air entry bilateral with no obvious crackles or use of accessory muscles. GI: Full, soft with normal bowel sounds. EXTREMITIES: Grossly normal looking, atraumatic with no obvious edema or erythema. NEUROLOGIC: Lethargic,answers few questions. DIAGNOSTIC DATA: CBC today showed WBC count of 4.3, hemoglobin of 8.0, and platelets of 25. Renal function panel today showed sodium 134, potassium 3.6, chloride 100, CO2 of 23, BUN 23, creatinine 3.51, glucose 88, and calcium 8.3, phosphorus 3.5, and albumin 2.5. ASSESSMENT: 1. End-stage renal disease, on hemodialysis Wednesday, , and Wednesday. The patient is due for hemodialysis today. 2. Febrile illness: The patient is on antibiotics. 3. Chronic thrombocytopenia. 4. Abdominal pain. Being evaluated by GI and Surgery. 5. Chronic atrial fibrillation. 6. Chronic anemia. 7. Cardiomyopathy status post automatic implantable cardioverter-defibrillator placement. PLAN: 1. We will dialyze the patient today in line with his usual schedule TTS. UF as tolerated will be provided. 2. The patient will also continue to get electrolyte stimulating agent with dialysis. Job ID: [id number] [facility]
[2018-11-20] MEDS: MEROPENEM 1 GM/50 ML 1 GM in Premix Bag 1 BAG IVPB SCH ×2 (01:17→14:19)
[2018-11-20] MEDS: Fludrocortisone Acetate 0.1 MG TAB PO SCH (09:05)
[2018-11-20] MEDS: Megestrol Acetate 800 MG/20 ML UDCUP PO SCH (09:06)
[2018-11-20] MEDS: Polyethylene Glycol 3350 17 GM Packet PO SCH (09:06)
[2018-11-20] MEDS: Acetaminophen 325 MG TAB PO PRN (09:06)
[2018-11-20] MEDS: Multivitamin W/ Minerals 1 TAB PO SCH (09:06)
[2018-11-20] MEDS: OXcarbazepine 300 MG TAB PO SCH ×2 (09:07→20:45)
[2018-11-20] MEDS: Carvedilol 3.125 MG TAB PO SCH ×2 (09:08→16:40)
--- NOTE | 2018-11-20 13:56 | PRG ---
DATE OF SERVICE: 11/20/2018 SUBJECTIVE: The patient is seen and examined at bedside. He does not have much appetite. He says that hospital food is bad, he is not going to eat, and he has some pain in the abdomen, on and off. OBJECTIVE: VITAL SIGNS: Blood pressure is 108/56, pulse is 81, respiratory rate is 19, O2 saturation is 100%, temperature is 98.1, and maximal temperature is 100.3. GENERAL: He has multiple bruises all over his body. He follows my commands. HEENT: His head is atraumatic and normocephalic. Pupils are responding to light properly. Sclerae are nonicteric. Oral mucosa is slightly dry. NECK: Supple. LUNGS: Clear. HEART: S1 and S2 normal. ABDOMEN: Soft with mild tenderness in epigastric area, in the middle, and in both flanks. No guarding. No masses. EXTREMITIES: 1+ peripheral edema on both lower extremities. NEUROLOGICAL: He is awake. He is aware of the year, but he does not know the day and he knows that our president is Tk Hansen. He is able to tell me about his kids. LABORATORY DATA: None today. Microbiology; blood cultures negative x48 hours. IMPRESSION: 1. Hypoxia with fever that still unclear etiology. He had temperature of 100.3 last night. We are waiting for Infectious Disease consultation by Dr. Kenney. Cultures are negative. For now, we will continue broad-spectrum, vancomycin, and meropenem. 2. Abdominal pain, which is on and off. 3. Anorexia. The patient states that he does not like hospital food. We are going to ask his to bring some food from the restaurants from the outside of the hospital. 4. Acute on chronic systolic heart failure, class III. 5. Automatic implantable cardioverter-defibrillator in place. 6. History of atrial fibrillation, now in sinus rhythm. 7. End-stage renal disease, dialyzed yesterday. 8. Hypertension. 9. Physical deconditioning. 10. Antiphospholipid syndrome with thrombocytopenia, chronic. 11. Moderate protein malnutrition. 12. Seizure disorder, stable. 13. Anemia, on epoetin and p.r.n. transfusion. PLAN: As I mentioned above, we will continue current regimen with antibiotics broad-spectrum with Megace. I will ask his to bring some food from the outside. Hopefully, he will start eating. Apparently, she was supposed to make decision after discussing with him whether he would be agreeable for hospice, but he would have to give up his dialysis treatments in this situation. We will discuss this case with her, and I discussed this case with Dr. Westfall, who is covering for Dr. De La Rosa today for Nephrology Services, and we will continue PT. Job ID: [id number]
--- NOTE | 2018-11-20 14:25 | PRG ---
DATE OF SERVICE: SUBJECTIVE: A 48-year-old male with end-stage renal disease, who was admitted due to acute onset of fever and abdominal pain associated with abnormal liver enzymes concerning for cholecystitis, which however has been ruled out with HIDA scan. The patient, however, continues to get fever and was thought to have a tunneled dialysis catheter associated infection necessitating removal. The patient is more awake today. Last dialysis was yesterday November 19, 2018. Denied nausea, vomiting. Oral intake remains poor. OBJECTIVE: VITAL SIGNS: Temperature 98.1, pulse 81, respiratory rate 19, SpO2 100 on 6 L nasal cannula, blood pressure is 108/56. GENERAL: Chronically ill-looking male, in no obvious distress. Afebrile and anicteric. HEENT: Normocephalic, atraumatic. CARDIOVASCULAR: Regular rhythm and rate. Normal heart sounds 1 and 2. RESPIRATORY: Fair air entry bilaterally with some transmitted sounds. No obvious crackle or rhonchi was appreciated. GI: Full, soft, nontender, nondistended with normal bowel sounds. EXTREMITIES: Grossly normal looking atraumatic with no obvious edema or erythema. NEUROLOGIC: Conscious and alert. Conversational. Memory lapse is noted. DIAGNOSTIC DATA: CBC performed on November 19, 2018 showed WBC count of 4.3, hemoglobin of 8.0, and platelet of 25. Renal function panel performed on November 19 showed sodium 134, potassium 3.6, chloride 100, CO2 of 23, BUN 23, creatinine 3.51, glucose 88, calcium 8.3, phosphorus 3.5, albumin 2.5. ASSESSMENT: 1. Febrile illness: Etiology is unclear. The patient is on antibiotics. Further evaluation as per primary attending. The patient's cholecystitis has been ruled out and tunneled dialysis catheter has been exchanged. 2. End-stage renal disease, on hemodialysis on Wednesday, , and Wednesday. The patient's last dialysis was on November 19 and this was tolerated well. 3. Volume status: Euvolemic. 4. Chronic pancytopenia with severe thrombocytopenia. Most likely related to antiphospholipid syndrome. Atypical HUS is a concern. 5. Chronic atrial fibrillation. 6. Chronic anemia. 7. Cardiomyopathy, status post AICD placement. PLAN: We will plan on dialyzing patient on Wednesday according to his outpatient dialysis schedule. We will monitor vitals closely. Job ID: [id number]
[2018-11-20] MEDS: hydrOXYzine 10 MG TAB PO PRN ×2 (15:09→15:10)
[2018-11-20] MEDS: diphenhydrAMINE 25 MG CAP PO PRN ×2 (15:10→20:46)
--- NOTE | 2018-11-20 18:39 | CON ---
DATE OF CONSULTATION: 11/20/2018 REASON FOR CONSULT: Fever. HISTORY OF PRESENT ILLNESS: A 48-year-old, who has a history of anticardiolipin syndrome with thrombosis in various areas, eventual development of renal insufficiency and end-stage renal disease, on hemodialysis with tunneled hemodialysis catheter in the right IJ position. The patient has had numerous dialysis access placements, and I had seen him once before in 2018 when he presented with a question of pneumonia. At that time, it was felt that the changes were more likely secondary to edema than infection. The patient had a previous dialysis access surgeries mostly since 2018. The renal insufficiency was most likely due to the vascular consequences of the thrombotic diathesis. The patient this time was admitted at the beginning of October when he presented with fever, temperature 101.9. Initial exam showed temperature 99.9 with a heart rate 103. There is mild abdominal tenderness in the right upper quadrant. Chest x-ray with bibasilar infiltrates. Initial white cell count 7.3, hemoglobin 9.1, platelets 39,000. Creatinine 1.56. AST was 92, ALT 58, bilirubin 1.4, and alkaline phosphatase was 293. Ammonia was 21 and CK 22. BNP was 2900 and lipase was 11. The patient has had 4 sets of blood cultures which have remained negative since this admission. On November 03, the patient had a right internal jugular vein tunneled hemodialysis catheter placed due to immature left arm fistula. Of note, the patient had not been nor has not been on anticoagulation due to bleeding in the left kidney, and had an inferior vena cava filter inserted, has developed collateral veins in the abdominal wall subsequently. He was seen by Dr. Rose because of persistence of abdominal pain, and a HIDA scan was recommended. The HIDA scan completed on November 06 showed normal results. Consultation with Oncology was placed because of chronic thrombocytopenia. He was felt to be due to his antiphospholipid syndrome with the anticoagulation withheld until he starts treatment for his thrombocytopenia. Neurology was consulted because of witnessed seizure activity, and he had trileptal increased to 900 mg twice daily. He was seen by Cardiology because of hypotension and atrial fibrillation. He was given IV fluids and IV digoxin. Since admission, he has had 1 temperature elevation up to 101.6 and 100.9 on November 17 and now today up to 100.3. Currently, Mr. Boo is lying on his right lateral decubitus. He denies headaches. No visual symptoms except for some blurred vision which is chronic. No sore throat, odynophagia, or dysphagia. No vomiting. He has noticed intermittent coughing spells likely. The patient denies chest pain. No spine tenderness. No abdominal tenderness. No appendicular symptoms. PAST MEDICAL HISTORY: 1. Antiphospholipid syndrome with multiple areas of thrombosis including kidneys. 2. End-stage renal disease, on hemodialysis with tunneled catheter with prior multiple access procedures, not yet mature AV fistula. 3. History of prior brain surgery, craniectomy with chronic seizure activity since. 4. Chronic hypotension, on fludrocortisone. 5. Cardiomyopathy with EF 30% with AICD in place. 6. Atrial fibrillation/flutter. 7. IVC filter. 8. Interruption of anticoagulation because of hemorrhagic manifestation in the retroperitoneal area. MEDICATION LIST: At this time, the patient is receivin. Tylenol. 2. Coreg. 3. Lanoxin. 4. Benadryl. 5. Epoetin. 6. Florinef. 7. Atarax. 8. Megace. 9. Melatonin. 10. Meropenem. 11. Vancomycin sliding scale. Meropenem was started 3 days ago. Vancomycin, likewise. SOCIAL HISTORY: Lives in [place] with family reportedly. Never smoker. No drug use. FAMILY HISTORY: Noncontributory. PHYSICAL EXAMINATION: VITAL SIGNS: Temperature max 101.6 on November 17, now 100.3, pulse 90, O2 saturation 96 on room air, and blood pressure 112/76. SKIN: No areas of skin breakdown. The patient has a tunneled hemodialysis catheter in right IJ position. No lymphadenopathy. HEENT: Pale conjunctivae. Ocular movements are conjugate. Oral cavity is dry. Quite a few missing teeth, remainder ones with some decay and gum disease. LUNGS: Quite prominent inspiratory crackles at right lower base. No wheezing. HEART: S1 and S2 without murmurs. No S3 or S4. A tunnel and exit site appear normal. ABDOMEN: Soft. Not distended or tender. No ascites. No bladder distention. No organomegaly. MUSCULOSKELETAL: No spine tenderness. No joint inflammatory activity. Dilated veins in the abdominal area from the thrombosed IVC. EXTREMITIES: Able to move extremities on command. There is some hyperpigmentation of the skin of the lower extremities. Pulses are 1+ in dorsalis pedis. Plantar responses are flexor. NEUROLOGIC: The patient is listless. He establishes eye contact intermittently, but not for long, very hard to get him to answer questions. He is obviously disoriented. LABORATORY DATA: White cell count is at 4.3, hemoglobin 8, platelets 25,000 with a normal differential. INR 1.4. Sodium 134. Creatinine 3.51. The last bilirubin was 1.8. AST is 78, ALT 72, alkaline phosphatase 524. Microbiology as noted above with 4 sets of blood cultures with no growth thus far. Two more sets from October 28 were no growth as well. There is 1 coagulase-negative Staph out of 2, likely contaminant of a peripheral blood draw from July. IMAGING STUDIES: An abdomen and pelvis CT from October 28 with bibasilar lower lobe ground-glass opacity, heterogeneous attenuation portions of the liver, possible portal vein occlusion, IVC occlusion. There is an abdomen ultrasound from November 01, small gallstones noted. No other abnormalities of significance. There is a chest x-ray from November 18 with some pulmonary edema since the previous day's exam. Other parts of the exam were stable. There is a brain CT from November [address] evidence of acute intracranial process. ASSESSMENT: 1. Anticardiolipin syndrome with multiple areas of thrombosis. 2. End-stage renal disease secondary to above, on hemodialysis through a tunneled hemodialysis catheter. 3. Abnormal lung findings. 4. Leukopenia, anemia, and thrombocytopenia. 5. Intermittent low-grade temperature elevation. DISCUSSION: The differential diagnosis includes lower respiratory tract infection nosocomial versus thromboembolism since the patient is not on anticoagulation including the possibility of pulmonary embolism, Next would be colonization of the hemodialysis catheter which appears to be less likely, finally AICD complications including colonization with not yet detected bacteremia. An intraabdominal inflammatory process is less likely, although the liver function tests have been worsening lately. Budd-Chiari syndrome is one of the concerns which can be associated with fever sometimes. Broad-spectrum antimicrobial coverage has been started, and we will follow up clinical course and decide if the patient needs to repeat imaging studies. Job ID: [id number]
[2018-11-21] MEDS: MEROPENEM 1 GM/50 ML 1 GM in Premix Bag 1 BAG IVPB SCH ×2 (01:44→14:15)
[2018-11-21] MEDS: Acetaminophen 325 MG TAB PO PRN ×3 (01:44→20:56)
[2018-11-21 06:00] LABS: #Eosinphils 0.1 thou/uL (0.0-0.7); #Lymphocytes 1.2 thou/uL (1.20-3.40); #Monocytes 0.2 thou/uL (0.11-0.59); %Basophils 0.1 % (0.0-1.0); %Lymphocytes 34.1 % (21.0-51.0); %Monocytes 5.9 % (0.0-10.0); %Neutrophils 55.9 % (42.0-75.0); Mean Corpuscular HGB CONC 32.4 g/dL (32.0-36.0); Mean Corpuscular Volume 92.6 fL (78.0-98.0); Mean Platelet Volume 11.9 fL (7.4-10.4); Platelet Count 24 thou/uL (130-400); RBC Distribution Width 15.3 % (11.5-14.5); Red Blood Cell (RBC) Count 2.68 mill/uL (4.70-6.10); White Blood Cell (WBC) Count 3.6 thou/uL (4.8-10.8)
[2018-11-21 06:03] LABS: Anion Gap 14 mmol/L (10-20); BUN (Urea Nitrogen) 20 mg/dL (8.9-20.6); Calc. Creatinine Clearance 38 mL/min (70-130); Calcium 8.2 mg/dL (7.8-10.44); Carbon Dioxide 24 mmol/L (22-29); Chloride 99 mmol/L (98-107); Estimated GFR-MDRD 22; Glucose 78 mg/dL (70-105); Potassium 4.1 mmol/L (3.5-5.1); Sodium 133 mmol/L (136-145)
--- NOTE | 2018-11-21 09:13 | PDOC.CTH ---
Cardiology Progress Note - Subjective The pt seen and examined. No overnight events. He complains of ABD discomfort. - Objective Vital Signs Temp Pulse Ox 11/21/18 08:00 98 11/21/18 07:22 98.1 F 11/21/18 04:00 98.1 F 11/21/18 00:00 97.9 F Admit Weight 204 lb 12.8 oz Weight 197 lb 12.074 oz 11/20/18 11/21/18 11/22/18 06:59 06:59 06:59 Intake Total 630 1330 Output Total 2100 380 Balance -1470 950 - Physical Examination General/Neuro: alert & oriented x3 Neck: no JVD present Lungs: other: (diminished at bases) Abdomen: soft Extremities: other: (No edema) - Telemetry Telemetry Rhythm: SR - Labs Result Diagrams: 11/21/18 05:10 11/21/18 05:10 Troponin/CKMB CK-MB (CK-2) 1.0 ng/mL (0-6.6) 11/01/18 23:17 Troponin I 0.280 ng/mL (< 0.028) H 11/01/18 23:17 - Assessment/Plan 1. Atrial fibrillation with RVR - remains in SR with Digoxin PO 0.125mg on , Th, Sat; On Coreg 3.125mg BID; Not on OAC due to hx of thrombocytopenia 2. 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 Acute on CKD with HD - managed by Dr De La Rosa 4. Non-ischemic CMY with s/p BiV AICD placement in 03/2018 5. Antiphospolipid syndrome, chronic thrombocytopenia - 6. Seizure disorder. stable. 7. Anemia - on Epoetin, for transfusion today with hemodialysis. 8. Fever - elevated today; ABX IV by PCP and Dr Kenney 9. abnormal LFTs 2/2 CHF - On HD 10. Nephrology will have to assist with the BP control. MAR reviewed * The pt's is considering hospice and a DNR status. However, he has to stop HD for hospice. Pt. seen and eval. by me. I agree with the A/p by the HISTOLOGIC TECHNICIAN. Chest clear. RRR. Continue supportive care.Overall cardiac status is stable. Review of Systems - Review of Systems Constitutional: reports: weakness
[2018-11-21] MEDS: Fludrocortisone Acetate 0.1 MG TAB PO SCH (09:18)
[2018-11-21] MEDS: Multivitamin W/ Minerals 1 TAB PO SCH (09:18)
[2018-11-21] MEDS: Carvedilol 3.125 MG TAB PO SCH ×2 (09:19→17:50)
[2018-11-21] MEDS: OXcarbazepine 300 MG TAB PO SCH ×2 (09:20→20:56)
[2018-11-21] MEDS: Megestrol Acetate 800 MG/20 ML UDCUP PO SCH (09:20)
[2018-11-21] MEDS: Polyethylene Glycol 3350 17 GM Packet PO SCH (09:21)
--- NOTE | 2018-11-21 15:09 | PDOC.MOPN ---
Interval History: Slightly confused. - Vital Signs Vital Signs: Vital Signs (12 hours) Temp Pulse Pulse BP BP Pulse Ox Pulse Ox 11/21/18 11:10 97.6 F 11/21/18 10:15 82 85 115/69 126/77 100 11/21/18 08:00 98 11/21/18 07:22 98.1 F 11/21/18 04:00 98.1 F Pulse Ox 11/21/18 11:10 11/21/18 10:15 98 11/21/18 08:00 11/21/18 07:22 11/21/18 04:00 Weight Admit Weight 204 lb 12.8 oz Weight 197 lb 12.074 oz Most Recent Monitor Data Heart Rate from ECG 76 NIBP 108/68 NIBP BP-Mean 81 Respiration from ECG 15 SpO2 98 - Physical Exam General: Alert HEENT: Mucous membr. moist/pink Cardiovascular: Regular rate Extremities: No clubbing, No cyanosis, No edema, Normal pulses, No tenderness/ swelling Skin: No rashes (petechial rash on left contreras), No breakdown - Labs Result Diagrams: 11/21/18 05:10 11/21/18 05:10 Lab results: Laboratory Results - last 24 hr 11/21/18 05:10: Sodium 133 L, Potassium 4.1, Chloride 99, Carbon Dioxide 24, Anion Gap 14, BUN 20, Creatinine 3.01 H, Estimated GFR (MDRD) 22, Glucose 78, Calcium 8.2 11/21/18 05:10: WBC 3.6 L, RBC 2.68 L, Hgb 8.0 L, Hct 24.8 L, MCV 92.6, MCH 30.0 , MCHC 32.4, RDW 15.3 H, Plt Count 24 L*, MPV 11.9 H, Neutrophils % 55.9, Neutrophils % (Manual) Not Reportable, Lymphocytes % 34.1, Monocytes % 5.9, Eosinophils % 4.0, Basophils % 0.1, Neutrophils # 2.0, Lymphocytes # 1.2, Monocytes # 0.2, Eosinophils # 0.1, Basophils # 0.0 Status: lab reviewed by me A/P - Problem (1) Antiphospholipid syndrome Current Visit: No Code(s): D68.61 - ANTIPHOSPHOLIPID SYNDROME Status: Chronic (2) End stage renal disease on dialysis Current Visit: No Code(s): N18.6 - END STAGE RENAL DISEASE; Z99.2 - DEPENDENCE ON RENAL DIALYSIS Status: Chronic (3) Thrombocytopenia Current Visit: No Code(s): D69.6 - THROMBOCYTOPENIA, UNSPECIFIED Status: Chronic - Plan Plan: Case reviewed and discussed with Dr. Gunn Patient not a candidate for promacta at this time No wet purpura noted, will hold platelet transfusion until < 15 or bleeding
--- NOTE | 2018-11-21 15:33 | PDOC.HOSPP ---
- Subjective Encounter Date: 11/21/18 Encounter Time: 15:33 Subjective: 48 y/o malae with antiphospholipi syndrome associated with multiple thrombosis as well as renal hemorrhage and ESRD requiring Hd admitted due to abdominal pain and fever associated with abnormal liver function. Acute cholecystitis was ruled out with HIDA scan and he subsequently has his TDC removed and re inserted. He however continued to have intermittent low grade fever. Last fever was on 11/17/2018 with temp 101.9. - Objective Vital Signs & Weight: Vital Signs (12 hours) Temp Pulse Pulse BP BP Pulse Ox Pulse Ox 11/21/18 11:10 97.6 F 11/21/18 10:15 82 85 115/69 126/77 100 11/21/18 08:00 98 11/21/18 07:22 98.1 F 11/21/18 04:00 98.1 F Pulse Ox 11/21/18 11:10 11/21/18 10:15 98 11/21/18 08:00 11/21/18 07:22 11/21/18 04:00 Weight Admit Weight 204 lb 12.8 oz Weight 197 lb 12.074 oz Most Recent Monitor Data Heart Rate from ECG 76 NIBP 108/68 NIBP BP-Mean 81 Respiration from ECG 15 SpO2 98 I&O: 11/20/18 11/21/18 11/22/18 06:59 06:59 06:59 Intake Total 630 1330 Output Total 2100 380 Balance -1470 950 Result Diagrams: 11/21/18 05:10 11/21/18 05:10 ROS - Medication Medications: Active Medications Generic Name Dose Route Start Last Admin Trade Name Destinq PRN Reason Stop Dose Admin Acetaminophen 650 mg 11/02/18 00:45 11/21/18 12:20 Tylenol PO 650 mg Q4H PRN Administration Headache/Fever/Mild Pain (1-3) Carvedilol 3.125 mg 11/15/18 17:00 11/21/18 09:19 Coreg PO 3.125 mg BID-WM NEPTALI Administration Digoxin 0.125 mg 11/12/18 09:00 11/19/18 10:05 Lanoxin PO 0.125 mg TUTHSA NEPTALI Administration Diphenhydramine HCl 25 mg 11/20/18 14:54 11/20/18 20:46 Benadryl PO 25 mg Q6H PRN Administration Itching & Insomnia Epoetin Nain-epbx 10,000 unit 11/05/18 12:00 11/19/18 12:55 Retacrit SC 10,000 unit Q7D NEPTALI Administration Fludrocortisone Acetate 0.1 mg 11/03/18 09:00 11/21/18 09:18 Florinef PO 0.1 mg DAILY NEPTALI Administration Hydroxyzine HCl 10 mg 11/18/18 14:18 11/20/18 15:10 Atarax PO 10 mg Q6HR PRN Administration Agitation Meropenem 1 gm/ Device 50 mls @ 100 mls/hr 11/17/18 14:00 11/21/18 14:15 IVPB 50 mls 0200,1400 NEPTALI Administration Iron/Minerals/Multivitamins 1 tab 11/19/18 09:00 11/21/18 09:18 Theragran M PO 1 tab DAILY NEPTALI Administration Lidocaine HCl 15 ml 11/19/18 01:37 11/19/18 02:46 Xylocaine 2% Viscous SSW 15 ml Q4H PRN Administration THROAT PAIN Megestrol Acetate 800 mg 11/18/18 09:00 11/21/18 09:20 Megace PO 800 mg DAILY NEPTALI Administration Melatonin 6 mg 11/02/18 17:14 11/18/18 21:53 Melatonin PO 6 mg HS PRN Administration Insomnia Miscellaneous Medication 12.5 mg 11/08/18 07:30 11/21/18 09:20 Movantik PO 12.5 mg DAILY-AC NEPTALI Administration Ondansetron HCl 4 mg 11/02/18 00:45 11/17/18 10:32 Zofran Odt PO 4 mg Q6H PRN Administration Nausea/Vomiting Ondansetron HCl 4 mg 11/02/18 00:45 11/16/18 08:42 Zofran IVP 4 mg Q6H PRN Administration Nausea/Vomiting Oxcarbazepine 900 mg 11/08/18 21:00 11/21/18 09:20 Trileptal PO 900 mg BID NEPTALI Administration Polyethylene Glycol 17 gm 11/11/18 09:00 11/21/18 09:21 Miralax PO 17 gm DAILY NEPTALI Administration Sertraline HCl 50 mg 11/09/18 09:00 11/21/18 09:18 Zoloft PO 50 mg DAILY NEPTALI Administration Sodium Chloride 10 ml 11/05/18 21:00 11/21/18 09:21 Flush - Normal Saline IVF 10 ml Q12HR NEPTALI Administration - Exam awake alert General - other findings: chronically ill looking Eye: anicteric sclera ENT: normocephalic atraumatic Heart: irregular, murmur present Respiratory: no wheezes, no rales, no ronchi Gastrointestinal: soft, non-tender, non-distended, normal bowel sounds Neurological: CN's grossly intact, no new deficit Neurological - other findings: confused and with memory lapses Hosp A/P (1) Intermittent fever Code(s): R50.9 - FEVER, UNSPECIFIED Status: Acute (2) Abnormal LFTs Code(s): R94.5 - ABNORMAL RESULTS OF LIVER FUNCTION STUDIES Status: Acute (3) Encephalopathy acute Code(s): G93.40 - ENCEPHALOPATHY, UNSPECIFIED Status: Acute (4) Moderate protein-calorie malnutrition Code(s): E44.0 - MODERATE PROTEIN-CALORIE MALNUTRITION Status: Chronic (5) Anemia of renal disease Code(s): N18.9 - CHRONIC KIDNEY DISEASE, UNSPECIFIED; D63.1 - ANEMIA IN CHRONIC KIDNEY DISEASE Status: Chronic (6) Antiphospholipid syndrome Code(s): D68.61 - ANTIPHOSPHOLIPID SYNDROME Status: Chronic (7) Atrial fibrillation Code(s): I48.91 - UNSPECIFIED ATRIAL FIBRILLATION Status: Chronic Qualifiers: Atrial fibrillation type: paroxysmal Qualified Code(s): I48.0 - Paroxysmal atrial fibrillation (8) CAD (coronary artery disease) Code(s): I25.10 - ATHSCL HEART DISEASE OF [place] CORONARY ARTERY W/O ANG PCTRS Status: Chronic Qualifiers: Coronary Disease-Associated Artery/Lesion type: [place] artery [place] vs. transplanted heart: [place] heart (9) End stage renal disease on dialysis Code(s): N18.6 - END STAGE RENAL DISEASE; Z99.2 - DEPENDENCE ON RENAL DIALYSIS Status: Chronic (10) Gout Code(s): M10.9 - GOUT, UNSPECIFIED Status: Chronic Qualifiers: Gout site: unspecified site Gout etiology: unspecified cause (11) HTN (hypertension) Code(s): I10 - ESSENTIAL (PRIMARY) HYPERTENSION Status: Chronic Qualifiers: (12) History of pulmonary embolism Code(s): Z86.711 - PERSONAL HISTORY OF PULMONARY EMBOLISM Status: Chronic (13) Nonischemic cardiomyopathy Code(s): I42.8 - OTHER CARDIOMYOPATHIES Status: Chronic (14) Pancytopenia Code(s): D61.818 - OTHER PANCYTOPENIA Status: Chronic (15) Physical deconditioning Code(s): R53.81 - OTHER MALAISE Status: Chronic (16) Seizure disorder Code(s): G40.909 - EPILEPSY, UNSP, NOT INTRACTABLE, WITHOUT STATUS EPILEPTICUS Status: Chronic (17) Thrombocytopenia Code(s): D69.6 - THROMBOCYTOPENIA, UNSPECIFIED Status: Chronic (18) Abdominal pain Code(s): R10.9 - UNSPECIFIED ABDOMINAL PAIN Status: Resolved Qualifiers: Abdominal location: left lower quadrant Qualified Code(s): R10.32 - Left lower quadrant pain - Plan Continue current broad spectrum antibiotics. get repeat CBC and CMP. Also get C3 and C4. hem/onc and ID following. HD aas per Nephrology transfer to medical floor.
[2018-11-21] MEDS: Melatonin 3 MG TAB PO PRN (20:56)
[2018-11-22] MEDS: MEROPENEM 1 GM/50 ML 1 GM in Premix Bag 1 BAG IVPB SCH ×2 (01:59→14:43)
[2018-11-22 05:49] LABS: ALT (SGPT) 11 U/L (8-55); AST (SGOT) 26 U/L (5-34); Albumin 2.7 g/dL (3.5-5.0); Alkaline Phosphatase 303 U/L (40-150); Anion Gap 13 mmol/L (10-20); BUN (Urea Nitrogen) 29 mg/dL (8.9-20.6); Bilirubin, Total 0.6 mg/dL (0.2-1.2); Calc. Creatinine Clearance 34 mL/min (70-130); Calcium 8.6 mg/dL (7.8-10.44); Carbon Dioxide 26 mmol/L (22-29); Chloride 98 mmol/L (98-107); Estimated GFR-MDRD 19; Globulin 3.6 g/dL (2.4-3.5); Glucose 87 mg/dL (70-105); Hemoglobin 8.6 g/dL (14.0-18.0); Mean Corpuscular HGB CONC 31.9 g/dL (32.0-36.0); Mean Corpuscular Hemoglobin 29.6 pg (27.0-31.0); Mean Corpuscular Volume 92.9 fL (78.0-98.0); Mean Platelet Volume 12.1 fL (7.4-10.4); Platelet Count 27 thou/uL (130-400); Potassium 3.9 mmol/L (3.5-5.1); Protein, Total 6.3 g/dL (6.0-8.3); RBC Distribution Width 15.5 % (11.5-14.5); Sodium 133 mmol/L (136-145); White Blood Cell (WBC) Count 4.6 thou/uL (4.8-10.8)
[2018-11-22 05:59] LABS: #Eosinphils 0.2 thou/uL (0.0-0.7); #Lymphocytes 1.3 thou/uL (1.20-3.40); #Monocytes 0.2 thou/uL (0.11-0.59); #Neutrophils 2.9 thou/uL (1.40-6.50); %Basophils 0.5 % (0.0-1.0); %Eosinophils 4.5 % (0.0-10.0); %Lymphocytes 28.7 % (21.0-51.0); %Monocytes 3.9 % (0.0-10.0); %Neutrophils 62.5 % (42.0-75.0); Platelet Morphology Comment Appears Decreased
[2018-11-22] MEDS: Carvedilol 3.125 MG TAB PO SCH ×2 (08:26→18:17)
[2018-11-22] MEDS: Multivitamin W/ Minerals 1 TAB PO SCH ×2 (08:27→12:56)
[2018-11-22] MEDS: Fludrocortisone Acetate 0.1 MG TAB PO SCH ×2 (08:27→12:56)
[2018-11-22] MEDS: Megestrol Acetate 800 MG/20 ML UDCUP PO SCH ×2 (08:27→12:55)
[2018-11-22] MEDS: Polyethylene Glycol 3350 17 GM Packet PO SCH ×2 (08:27→12:56)
[2018-11-22] MEDS: Digoxin 0.125 MG TAB PO SCH ×2 (08:27→12:55)
[2018-11-22] MEDS: OXcarbazepine 300 MG TAB PO SCH ×2 (08:27→20:34)
[2018-11-22 08:46] LABS: Vancomycin, Random 12.6 ug/mL (See Comment)
[2018-11-22] MEDS ORDERED: Heparin 10,000 UNITS/ 10 ML VIAL ONE (09:00)
--- NOTE | 2018-11-22 09:09 | PDOC.CTH ---
Cardiology Progress Note - Subjective The pt seen and examined. No overnight events. He still does not have good appetite. - Objective Vital Signs Temp Pulse Resp BP Pulse Ox 11/22/18 08:27 73 11/22/18 08:00 98.5 F 73 20 135/79 95 11/22/18 04:13 98.0 F 73 18 126/68 95 11/22/18 00:03 98.6 F 81 20 130/80 91 L Admit Weight 204 lb 12.8 oz Weight 197 lb 12.074 oz 11/21/18 11/22/18 11/23/18 06:59 06:59 06:59 Intake Total 1330 980 Output Total 380 75 Balance 950 905 - Physical Examination General/Neuro: alert & oriented x3 Neck: no JVD present Lungs: other: (diminished at bases) Heart: RRR Abdomen: soft Extremities: other: - Labs Result Diagrams: 11/22/18 05:17 11/22/18 05:17 Troponin/CKMB CK-MB (CK-2) 1.0 ng/mL (0-6.6) 11/01/18 23:17 Troponin I 0.280 ng/mL (< 0.028) H 11/01/18 23:17 - Assessment/Plan 1. Atrial fibrillation with RVR - remains in SR with Digoxin PO 0.125mg on , Th, Sat; On Coreg 3.125mg BID; Not on OAC due to hx of thrombocytopenia 2. 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 ESRD with HD - managed by Dr De La Rosa 4. Non-ischemic CMY with s/p BiV AICD placement in 03/2018 5. Antiphospolipid syndrome, chronic thrombocytopenia - 6. Seizure disorder. stable. 7. Anemia - on Epoetin, 8. Fever - elevated today; ABX IV by PCP and Dr Kenney 9. abnormal LFTs 2/2 CHF - On HD 10. Nephrology will have to assist with the BP control. MAR reviewed * The pt's is considering hospice and a DNR status. However, he has to stop HD for hospice. Pt. seen and eval. by me. i agree with the A/P by the SHIPYARD PAINTER APPRENTICE. Multiple medical problems. Poor senior care prognosis, continuing dialysis for now. chest clear. RRR.Overall cardiac status is stable despite CMY. [email or web address] Review of Systems - Review of Systems Constitutional: reports: weakness EENTM: reports: no symptoms reported Respiratory: reports: no symptoms reported Cardiac (ROS): reports: no symptoms reported ABD/GI: reports: see HPI
--- NOTE | 2018-11-22 09:18 | PRG ---
DATE OF SERVICE: 11/22/2018 SUBJECTIVE: Mr. Boo is a 48-year-old white male with ESRD and being followed by the [facility] for his maintenance hemodialysis. We are still awaiting placement with this patient. Today, he voices no new complaints. He underwent hemodialysis on Wednesday without any difficulty. We will attempt between 2 and 2.5 L fluid removal as tolerated. The patient voices no new complaints today. His appetite is somewhat improved. REVIEW OF SYSTEMS: The patient has no chest pain or shortness of breath. OBJECTIVE: VITAL SIGNS: Blood pressure is 135/79, heart rate 73, respiratory rate 20, temperature 98.5, and pulse ox 95%. GENERAL: Awake, alert, and comfortable, not in overt distress. SKIN: Adequate turgor. HEENT: He has a slightly pale conjunctivae. Anicteric sclerae. NECK: No neck mass. No carotid bruits. No JVD. CHEST: No deformities. LUNGS: Clear breath sounds. HEART: Normal sinus rhythm. No murmurs, gallops, or rubs. ABDOMEN: Globular, soft, and nontender. No masses. EXTREMITIES: No edema. No deformities. MEDICATIONS: Medications of November 22, 2018, reviewed. LABORATORY DATA: Laboratories of November 22, 2018; white count 4.6, hemoglobin 8.6, and platelet count 27,000. Sodium 133, potassium 3.9, chloride 98, carbon dioxide 26, BUN 29, creatinine 3.41, AST 26, ALT 11, and albumin 2.7. ASSESSMENT AND PLAN: 1. End-stage renal disease, continuing hemodialysis regimen. We will attempt between 2 and 2.5 L fluid removal only as tolerated by the patient. 2. Anemia currently on weekly Epogen. We have increased his Epogen to 10,000 units subcu every week last week. In addition, he will get p.r.n. blood transfusion. 3. Chronic thrombocytopenia - continue to observe. Hematology is following. Agree with current management. Job ID: [id number]
--- NOTE | 2018-11-22 19:37 | PDOC.HOSPP ---
- Subjective Encounter Date: 11/22/18 Encounter Time: 14:36 Subjective: 48 y/o malae with antiphospholip syndrome associated with multiple thrombosis as well as renal hemorrhage and ESRD requiring Hd admitted due to abdominal pain and fever associated with abnormal liver function. Acute cholecystitis was ruled out with HIDA scan and he subsequently has his TDC removed and re inserted. He however continued to have intermittent low grade fever. Last fever was on 11/17/2018 with temp 101.9. Has been afebrile now for more than 3 days. - Objective Vital Signs & Weight: Vital Signs (12 hours) Temp Pulse Resp BP Pulse Ox 11/22/18 18:00 98.6 F 87 16 128/77 94 L 11/22/18 12:38 99.5 F 89 16 135/79 93 L 11/22/18 08:27 73 11/22/18 08:25 95 11/22/18 08:00 98.5 F 73 20 135/79 95 Weight Admit Weight 204 lb 12.8 oz Weight 197 lb 12.074 oz Most Recent Monitor Data Heart Rate from ECG 83 NIBP 127/81 NIBP BP-Mean 96 Respiration from ECG 12 SpO2 98 I&O: 11/21/18 11/22/18 11/23/18 06:59 06:59 06:59 Intake Total 1330 980 530 Output Total 380 75 Balance 950 905 530 Result Diagrams: 11/22/18 05:17 11/22/18 05:17 Hospitalist ROS - Medication Medications: Active Medications Generic Name Dose Route Start Last Admin Trade Name Freq PRN Reason Stop Dose Admin Acetaminophen 650 mg 11/02/18 00:45 11/21/18 20:56 Tylenol PO 650 mg Q4H PRN Administration Headache/Fever/Mild Pain (1-3) Carvedilol 3.125 mg 11/15/18 17:00 11/22/18 18:17 Coreg PO 3.125 mg BID-WM NEPTALI Administration Digoxin 0.125 mg 11/12/18 09:00 11/22/18 12:55 Lanoxin PO 0.125 mg TUTHSA NEPTALI Administration Diphenhydramine HCl 25 mg 11/20/18 14:54 11/20/18 20:46 Benadryl PO 25 mg Q6H PRN Administration Itching & Insomnia Epoetin Nain-epbx 10,000 unit 11/05/18 12:00 11/19/18 12:55 Retacrit SC 10,000 unit Q7D NEPTALI Administration Fludrocortisone Acetate 0.1 mg 11/03/18 09:00 11/22/18 12:56 Florinef PO 0.1 mg DAILY NEPTALI Administration Hydroxyzine HCl 10 mg 11/18/18 14:18 11/20/18 15:10 Atarax PO 10 mg Q6HR PRN Administration Agitation Meropenem 1 gm/ Device 50 mls @ 100 mls/hr 11/17/18 14:00 11/22/18 14:43 IVPB 50 mls 0200,1400 NEPTALI Administration Iron/Minerals/Multivitamins 1 tab 11/19/18 09:00 11/22/18 12:56 Theragran M PO 1 tab DAILY NEPTALI Administration Lidocaine HCl 15 ml 11/19/18 01:37 11/19/18 02:46 Xylocaine 2% Viscous SSW 15 ml Q4H PRN Administration THROAT PAIN Megestrol Acetate 800 mg 11/18/18 09:00 11/22/18 12:55 Megace PO 800 mg DAILY NEPTALI Administration Melatonin 6 mg 11/02/18 17:14 11/21/18 20:56 Melatonin PO 6 mg HS PRN Administration Insomnia Miscellaneous Medication 12.5 mg 11/08/18 07:30 11/22/18 08:26 Movantik PO Not Given DAILY-AC NEPTALI Ondansetron HCl 4 mg 11/02/18 00:45 11/17/18 10:32 Zofran Odt PO 4 mg Q6H PRN Administration Nausea/Vomiting Ondansetron HCl 4 mg 11/02/18 00:45 11/16/18 08:42 Zofran IVP 4 mg Q6H PRN Administration Nausea/Vomiting Oxcarbazepine 900 mg 11/08/18 21:00 11/22/18 08:27 Trileptal PO Not Given BID NEPTALI Polyethylene Glycol 17 gm 11/11/18 09:00 11/22/18 12:56 Miralax PO 17 gm DAILY NEPTALI Administration Sertraline HCl 50 mg 11/09/18 09:00 11/22/18 12:56 Zoloft PO 50 mg DAILY NEPTALI Administration Sodium Chloride 10 ml 11/05/18 21:00 11/22/18 12:57 Flush - Normal Saline IVF 10 ml Q12HR NEPTALI Administration - Exam General Appearance: awake alert General - other findings: chronically ill looking Eye: anicteric sclera ENT: normocephalic atraumatic Neck: no JVD Heart: irregular Respiratory: no wheezes, no rales, no ronchi, normal chest expansion, no tachypnea Gastrointestinal: soft, non-tender, non-distended, normal bowel sounds Extremities: no cyanosis, no edema Neurological: CN's grossly intact, no new deficit Neurological - other findings: some confusion and memory lapses persists Musculoskeletal: generalized weakness Psychiatric: oriented to person Hosp A/P (1) Intermittent fever Code(s): R50.9 - FEVER, UNSPECIFIED Status: Acute (2) Abnormal LFTs Code(s): R94.5 - ABNORMAL RESULTS OF LIVER FUNCTION STUDIES Status: Acute (3) Encephalopathy acute Code(s): G93.40 - ENCEPHALOPATHY, UNSPECIFIED Status: Acute (4) Moderate protein-calorie malnutrition Code(s): E44.0 - MODERATE PROTEIN-CALORIE MALNUTRITION Status: Chronic (5) Anemia of renal disease Code(s): N18.9 - CHRONIC KIDNEY DISEASE, UNSPECIFIED; D63.1 - ANEMIA IN CHRONIC KIDNEY DISEASE Status: Chronic (6) Antiphospholipid syndrome Code(s): D68.61 - ANTIPHOSPHOLIPID SYNDROME Status: Chronic (7) Atrial fibrillation Code(s): I48.91 - UNSPECIFIED ATRIAL FIBRILLATION Status: Chronic Qualifiers: Atrial fibrillation type: paroxysmal Qualified Code(s): I48.0 - Paroxysmal atrial fibrillation (8) CAD (coronary artery disease) Code(s): I25.10 - ATHSCL HEART DISEASE OF [place] CORONARY ARTERY W/O ANG PCTRS Status: Chronic Qualifiers: Coronary Disease-Associated Artery/Lesion type: [place] artery [place] vs. transplanted heart: [place] heart (9) End stage renal disease on dialysis Code(s): N18.6 - END STAGE RENAL DISEASE; Z99.2 - DEPENDENCE ON RENAL DIALYSIS Status: Chronic (10) Gout Code(s): M10.9 - GOUT, UNSPECIFIED Status: Chronic Qualifiers: Gout site: unspecified site Gout etiology: unspecified cause (11) HTN (hypertension) Code(s): I10 - ESSENTIAL (PRIMARY) HYPERTENSION Status: Chronic Qualifiers: (12) History of pulmonary embolism Code(s): Z86.711 - PERSONAL HISTORY OF PULMONARY EMBOLISM Status: Chronic (13) Nonischemic cardiomyopathy Code(s): I42.8 - OTHER CARDIOMYOPATHIES Status: Chronic (14) Pancytopenia Code(s): D61.818 - OTHER PANCYTOPENIA Status: Chronic (15) Physical deconditioning Code(s): R53.81 - OTHER MALAISE Status: Chronic (16) Seizure disorder Code(s): G40.909 - EPILEPSY, UNSP, NOT INTRACTABLE, WITHOUT STATUS EPILEPTICUS Status: Chronic (17) Thrombocytopenia Code(s): D69.6 - THROMBOCYTOPENIA, UNSPECIFIED Status: Chronic - Plan Continue current broad spectrum antibiotics. Awaiting for ID re evaluation Awaiting C3 and C4. hem/onc and ID following. HD as per Nephrology Discharge disposition: Hospice discussion ongoing.
[2018-11-23] MEDS: MEROPENEM 1 GM/50 ML 1 GM in Premix Bag 1 BAG IVPB SCH ×2 (02:45→14:00)
[2018-11-23 06:28] LABS: Complement-C4 11.3 mg/dL (15-53)
--- NOTE | 2018-11-23 08:46 | PDOC.CPN ---
- Subjective Date: 11/23/18 Time: 08:46 Interval history: The pt seen and examined. No overnight events. He is eating oatmeal very slowly without any ABD pain/discomfort this AM. He complains of SOB with mild exertion. O2 sat with RA has been > 90s - Review of Systems General: reports: fatigue Respiratory: reports: shortness of breath - Objective Allergies/Adverse Reactions: Allergies Allergy/AdvReac Type Severity Reaction Status Date / Time phenytoin sodium Allergy Severe Emesis Verified 11/02/18 00:52 [From Dilantin] phenytoin sodium extended Allergy Severe Emesis Verified 11/02/18 00:52 [From Dilantin] midazolam HCl [From Versed] Allergy Intermediate swelling Verified 11/02/18 00: 52 amiodarone AdvReac N/V Verified 10/28/18 10:20 Visit Medications: Current Medications Acetaminophen (Tylenol) 650 mg PO Q4H PRN PRN Reason: Headache/Fever/Mild Pain (1-3) Last Admin: 11/21/18 20:56 Dose: 650 mg Acetaminophen (Tylenol) 650 mg MS Q4H PRN PRN Reason: Headache/Fever/Mild Pain (1-3) Carvedilol (Coreg) 3.125 mg PO BID-WM [facility] Last Admin: 11/22/18 18:17 Dose: 3.125 mg Digoxin (Lanoxin) 0.125 mg PO TUTHSA [facility] Last Admin: 11/22/18 12:55 Dose: 0.125 mg Diphenhydramine HCl (Benadryl) 25 mg PO Q6H PRN PRN Reason: Itching & Insomnia Last Admin: 11/20/18 20:46 Dose: 25 mg Epoetin Nain-epbx (Retacrit) 10,000 unit SC Q7D [facility] Last Admin: 11/19/18 12:55 Dose: 10,000 unit Fludrocortisone Acetate (Florinef) 0.1 mg PO DAILY [facility] Last Admin: 11/22/18 12:56 Dose: 0.1 mg Hydroxyzine HCl (Atarax) 10 mg PO Q6HR PRN PRN Reason: Agitation Last Admin: 11/20/18 15:10 Dose: 10 mg Vancomycin HCl 1.25 gm/ Sodium (Chloride) 250 mls @ 166.667 mls/hr IVPB WILLCALL NEPTALI Vancomycin HCl 1 gm/ Device 200 mls @ 200 mls/hr IVPB WILLCALL NEPTALI Vancomycin HCl 750 mg/ Sodium (Chloride) 250 mls @ 250 mls/hr IVPB WILLCALL [facility] Vancomycin HCl 500 mg/ Sodium (Chloride) 100 mls @ 100 mls/hr IVPB WILLCALL [facility] Meropenem 1 gm/ Device 50 mls @ 100 mls/hr IVPB 0200,1400 [facility] Last Admin: 11/23/18 02:45 Dose: 50 mls Iron/Minerals/Multivitamins (Theragran M) 1 tab PO DAILY [facility] Last Admin: 11/22/18 12:56 Dose: 1 tab Lidocaine HCl (Xylocaine 2% Viscous) 15 ml SSW Q4H PRN PRN Reason: THROAT PAIN Last Admin: 11/19/18 02:46 Dose: 15 ml Megestrol Acetate (Megace) 800 mg PO DAILY [facility] Last Admin: 11/22/18 12:55 Dose: 800 mg Melatonin (Melatonin) 6 mg PO HS PRN PRN Reason: Insomnia Last Admin: 11/21/18 20:56 Dose: 6 mg Miscellaneous Medication (Movantik) 12.5 mg PO DAILY-AC [facility] Last Admin: 11/22/18 08:26 Dose: Not Given Miscellaneous Medication (Pharmacy To Dose) 1 each IVPB PRN PRN PRN Reason: Pharmacy to dose Hold Vancomycin For (Level >20) 0 each FS .AT DIALYSIS [facility] Ondansetron HCl (Zofran Odt) 4 mg PO Q6H PRN PRN Reason: Nausea/Vomiting Last Admin: 11/17/18 10:32 Dose: 4 mg Ondansetron HCl (Zofran) 4 mg IVP Q6H PRN PRN Reason: Nausea/Vomiting Last Admin: 11/16/18 08:42 Dose: 4 mg Oxcarbazepine (Trileptal) 900 mg PO BID [facility] Last Admin: 11/22/18 20:34 Dose: 900 mg Polyethylene Glycol (Miralax) 17 gm PO DAILY [facility] Last Admin: 11/22/18 12:56 Dose: 17 gm Sertraline HCl (Zoloft) 50 mg PO DAILY [facility] Last Admin: 11/22/18 12:56 Dose: 50 mg Sodium Chloride (Flush - Normal Saline) 10 ml IVF Q12HR [facility] Last Admin: 11/22/18 20:35 Dose: 10 ml Sodium Chloride (Flush - Normal Saline) 10 ml IVF PRN PRN PRN Reason: Saline Flush Vital Signs & Weight: Vital Signs Temp Pulse Resp BP BP Pulse Ox 11/23/18 08:00 97.6 F 84 18 132/84 94 L 11/23/18 07:02 94 L 11/23/18 00:00 97.4 F L 84 20 112/66 94 L Admit Weight 204 lb 12.8 oz Weight 197 lb 12.074 oz - Physical Exam General: alert & oriented x3 Cardiac: regular rate and rhythm Lungs: bibasilar rales Abdomen: decreased bowel sounds - Labs Result Diagrams: 11/22/18 05:17 11/22/18 05:17 Troponin/CKMB CK-MB (CK-2) 1.0 ng/mL (0-6.6) 11/01/18 23:17 Troponin I 0.280 ng/mL (< 0.028) H 11/01/18 23:17 - Assessment/Plan Assessment/Plan: 1. Atrial fibrillation with RVR - remains in SR with Digoxin PO 0.125mg on , , Sat; On Coreg 3.125mg BID; Not on OAC due to hx of thrombocytopenia 2. 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 ESRD with HD - managed by Dr De La Rosa 4. Non-ischemic CMY with s/p BiV AICD placement in 03/2018 5. Antiphospolipid syndrome, chronic thrombocytopenia - 6. Seizure disorder. stable. 7. Anemia - on Epoetin, 8. Fever - elevated today; ABX IV by PCP and Dr Kenney 9. abnormal LFTs 2/2 CHF - On HD 10. Nephrology will have to assist with the BP control. MAR reviewed * The pt's is considering hospice and a DNR status. However, he has to stop HD for hospice. Pt. seen and eval. by me. i agree with the A/P by the SUPERVISOR TELEPHONE INFORMATION. Multiple medical problems. 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 chest clear. RRR.Overall cardiac status is stable despite CMY. gjmays
[2018-11-23] MEDS: OXcarbazepine 300 MG TAB PO SCH ×2 (08:54→21:26)
[2018-11-23] MEDS: Megestrol Acetate 800 MG/20 ML UDCUP PO SCH (08:54)
[2018-11-23] MEDS: Polyethylene Glycol 3350 17 GM Packet PO SCH (08:54)
[2018-11-23] MEDS: Fludrocortisone Acetate 0.1 MG TAB PO SCH (08:55)
[2018-11-23] MEDS: Carvedilol 3.125 MG TAB PO SCH ×2 (08:55→17:12)
[2018-11-23] MEDS: Multivitamin W/ Minerals 1 TAB PO SCH (08:55)
--- NOTE | 2018-11-23 09:54 | PRG ---
DATE OF SERVICE: 11/23/2018 SUBJECTIVE: Mr. Boo is a 48-year-old white male with ESRD and followed up by the [facility] for his maintenance hemodialysis. He underwent hemodialysis yesterday without difficulty. Fluid removal was done. This morning, he is noted to be awake and comfortable. He still has decreased p.o. intake. He still has intermittent abdominal pain. Currently, he has also underlying fever. No other complaints today. OBJECTIVE: VITAL SIGNS: Blood pressure is 132/84, heart rate 84, respiratory rate 18, temperature 97.6, and pulse ox 94% - room air. GENERAL: Awake, alert, comfortable, somewhat lethargic, not in overt distress. SKIN: Decreased turgor. HEENT: Slightly pale conjunctivae. Anicteric sclerae. NECK: No neck mass. No carotid bruits. No JVD. CHEST: No deformities. LUNGS: Clear breath sounds. HEART: Normal sinus rhythm. No murmur. No gallops. No rubs. ABDOMEN: Globular, soft, and nontender. No masses. EXTREMITIES: Trace edema. No deformities. MEDICATIONS: Medications of November 23, 2018, was reviewed. LABORATORY DATA: Laboratories of November 22, 2018; white count 4.6, hemoglobin 8.6, and platelet count 27,000. Sodium 133, potassium 3.9, chloride 98, carbon dioxide 26, BUN 29, and creatinine 3.41. ASSESSMENT AND PLAN: 1. End-stage renal disease, stable. We will continue current hemodialysis regimen. Using no heparin due to the low platelet count. No indication for any emergent dialysis today. We will continue the Wednesday, , and Wednesday schedule. 2. Chronic thrombocytopenia. Continue to observe supportive management as per Hematology, not a candidate for Promacta for the moment. 3. Chronic anemia, on weekly Epogen of 10,000 units subcu every week. 4. Fever, much improved. Blood culture on November 17, 2018, showed no growth today. Overall prognosis remains guarded. Agree with current management. Recheck CBC and basic metabolic panel in a.m. Job ID: [id number]
[2018-11-23] MEDS ORDERED: guaiFENesin/Dextromethorphan 10 ML UDCUP PO PRN (12:55)
--- NOTE | 2018-11-23 19:16 | PDOC.HOSPP ---
- Subjective Encounter Date: 11/23/18 Encounter Time: 11:15 Subjective: 48 y/o malae with antiphospholip syndrome associated with multiple thrombosis as well as renal hemorrhage and ESRD requiring Hd admitted due to abdominal pain and fever associated with abnormal liver function. Acute cholecystitis was ruled out with HIDA scan and he subsequently has his TDC removed and re inserted. He however continued to have intermittent low grade fever. Last fever was on 11/17/2018 with temp 101.9. Has been afebrile now for more than 6 days. Complains of cough but responsiveness has improved. He is up in chair today. - Objective Vital Signs & Weight: Vital Signs (12 hours) Temp Pulse Resp BP Pulse Ox 11/23/18 17:10 73 18 93 L 11/23/18 09:00 94 L 11/23/18 08:00 97.6 F 84 18 132/84 94 L Weight Admit Weight 204 lb 12.8 oz Weight 197 lb 12.074 oz Most Recent Monitor Data Heart Rate from ECG 83 NIBP 127/81 NIBP BP-Mean 96 Respiration from ECG 12 SpO2 98 I&O: 11/22/18 11/23/18 11/24/18 06:59 06:59 06:59 Intake Total 980 530 900 Output Total 75 200 200 Balance 905 330 700 Result Diagrams: 11/22/18 05:17 11/22/18 05:17 Hospitalist ROS - Medication Medications: Active Medications Generic Name Dose Route Start Last Admin Trade Name Freq PRN Reason Stop Dose Admin Acetaminophen 650 mg 11/02/18 00:45 11/21/18 20:56 Tylenol PO 650 mg Q4H PRN Administration Headache/Fever/Mild Pain (1-3) Carvedilol 3.125 mg 11/15/18 17:00 11/23/18 17:12 Coreg PO 3.125 mg BID-WM NEPTALI Administration Digoxin 0.125 mg 11/12/18 09:00 11/22/18 12:55 Lanoxin PO 0.125 mg TUTHSA NEPTALI Administration Diphenhydramine HCl 25 mg 11/20/18 14:54 11/20/18 20:46 Benadryl PO 25 mg Q6H PRN Administration Itching & Insomnia Epoetin Nain-epbx 10,000 unit 11/05/18 12:00 11/19/18 12:55 Retacrit SC 10,000 unit Q7D NEPTALI Administration Fludrocortisone Acetate 0.1 mg 11/03/18 09:00 11/23/18 08:55 Florinef PO 0.1 mg DAILY NEPTALI Administration Hydroxyzine HCl 10 mg 11/18/18 14:18 11/20/18 15:10 Atarax PO 10 mg Q6HR PRN Administration Agitation Meropenem 1 gm/ Device 50 mls @ 100 mls/hr 11/17/18 14:00 11/23/18 14:00 IVPB 50 mls 0200,1400 NEPTALI Administration Iron/Minerals/Multivitamins 1 tab 11/19/18 09:00 11/23/18 08:55 Theragran M PO 1 tab DAILY NEPTALI Administration Lidocaine HCl 15 ml 11/19/18 01:37 11/19/18 02:46 Xylocaine 2% Viscous SSW 15 ml Q4H PRN Administration THROAT PAIN Megestrol Acetate 800 mg 11/18/18 09:00 11/23/18 08:54 Megace PO 800 mg DAILY NEPTALI Administration Melatonin 6 mg 11/02/18 17:14 11/21/18 20:56 Melatonin PO 6 mg HS PRN Administration Insomnia Miscellaneous Medication 12.5 mg 11/08/18 07:30 11/23/18 08:59 Movantik PO 12.5 mg DAILY-AC NEPTALI Administration Ondansetron HCl 4 mg 11/02/18 00:45 11/17/18 10:32 Zofran Odt PO 4 mg Q6H PRN Administration Nausea/Vomiting Ondansetron HCl 4 mg 11/02/18 00:45 11/16/18 08:42 Zofran IVP 4 mg Q6H PRN Administration Nausea/Vomiting Oxcarbazepine 900 mg 11/08/18 21:00 11/23/18 08:54 Trileptal PO 900 mg BID NEPTALI Administration Polyethylene Glycol 17 gm 11/11/18 09:00 11/23/18 08:54 Miralax PO 17 gm DAILY NEPTALI Administration Sertraline HCl 50 mg 11/09/18 09:00 11/23/18 08:55 Zoloft PO 50 mg DAILY NEPTALI Administration Sodium Chloride 10 ml 11/05/18 21:00 11/23/18 08:55 Flush - Normal Saline IVF 10 ml Q12HR NEPTALI Administration - Exam General Appearance: awake alert Eye: anicteric sclera ENT: normocephalic atraumatic, moist mucosa Neck: supple, no JVD Heart: irregular Respiratory: no wheezes, no ronchi, no tachypnea Gastrointestinal: soft, non-tender, non-distended, normal bowel sounds Extremities: no edema Neurological: CN's grossly intact Neurological - other findings: awake and oriented to person and place. memeory lapses noted Hosp A/P (1) Intermittent fever Code(s): R50.9 - FEVER, UNSPECIFIED Status: Acute (2) Abnormal LFTs Code(s): R94.5 - ABNORMAL RESULTS OF LIVER FUNCTION STUDIES Status: Acute (3) Encephalopathy acute Code(s): G93.40 - ENCEPHALOPATHY, UNSPECIFIED Status: Acute (4) Moderate protein-calorie malnutrition Code(s): E44.0 - MODERATE PROTEIN-CALORIE MALNUTRITION Status: Chronic (5) Anemia of renal disease Code(s): N18.9 - CHRONIC KIDNEY DISEASE, UNSPECIFIED; D63.1 - ANEMIA IN CHRONIC KIDNEY DISEASE Status: Chronic (6) Antiphospholipid syndrome Code(s): D68.61 - ANTIPHOSPHOLIPID SYNDROME Status: Chronic (7) Atrial fibrillation Code(s): I48.91 - UNSPECIFIED ATRIAL FIBRILLATION Status: Chronic Qualifiers: Atrial fibrillation type: paroxysmal Qualified Code(s): I48.0 - Paroxysmal atrial fibrillation (8) CAD (coronary artery disease) Code(s): I25.10 - ATHSCL HEART DISEASE OF [place] CORONARY ARTERY W/O ANG PCTRS Status: Chronic Qualifiers: Coronary Disease-Associated Artery/Lesion type: [place] artery [place] vs. transplanted heart: [place] heart (9) End stage renal disease on dialysis Code(s): N18.6 - END STAGE RENAL DISEASE; Z99.2 - DEPENDENCE ON RENAL DIALYSIS Status: Chronic (10) Gout Code(s): M10.9 - GOUT, UNSPECIFIED Status: Chronic Qualifiers: Gout site: unspecified site Gout etiology: unspecified cause (11) HTN (hypertension) Code(s): I10 - ESSENTIAL (PRIMARY) HYPERTENSION Status: Chronic Qualifiers: (12) History of pulmonary embolism Code(s): Z86.711 - PERSONAL HISTORY OF PULMONARY EMBOLISM Status: Chronic (13) Nonischemic cardiomyopathy Code(s): I42.8 - OTHER CARDIOMYOPATHIES Status: Chronic (14) Pancytopenia Code(s): D61.818 - OTHER PANCYTOPENIA Status: Chronic (15) Physical deconditioning Code(s): R53.81 - OTHER MALAISE Status: Chronic (16) Seizure disorder Code(s): G40.909 - EPILEPSY, UNSP, NOT INTRACTABLE, WITHOUT STATUS EPILEPTICUS Status: Chronic (17) Thrombocytopenia Code(s): D69.6 - THROMBOCYTOPENIA, UNSPECIFIED Status: Chronic - Plan Continue current broad spectrum antibiotics. Get CRP, ESR and procalcitonin as well as repeat CBC and BMP in the am. hem/onc and ID following. Discontinuation of antibiotics contemplated HD as per Nephrology Discharge disposition: Hospice discussion ongoing.
[2018-11-23] MEDS: Melatonin 3 MG TAB PO PRN (22:54)
[2018-11-24] MEDS: MEROPENEM 1 GM/50 ML 1 GM in Premix Bag 1 BAG IVPB SCH ×2 (03:00→13:56)
[2018-11-24] MEDS: Acetaminophen 325 MG TAB PO PRN ×2 (05:26→22:11)
[2018-11-24 06:26] LABS: #Basophils 0.1 thou/uL (0.0-0.2); #Eosinphils 0.2 thou/uL (0.0-0.7); #Lymphocytes 0.9 thou/uL (1.20-3.40); #Monocytes 0.2 thou/uL (0.11-0.59); %Basophils 2.2 % (0.0-1.0); %Lymphocytes 27.2 % (21.0-51.0); %Monocytes 6.4 % (0.0-10.0); %Neutrophils 59.1 % (42.0-75.0); Hemoglobin 8.5 g/dL (14.0-18.0); Mean Corpuscular HGB CONC 32.4 g/dL (32.0-36.0); Mean Corpuscular Hemoglobin 29.9 pg (27.0-31.0); Mean Corpuscular Volume 92.4 fL (78.0-98.0); Mean Platelet Volume 13.6 fL (7.4-10.4); Platelet Count 21 thou/uL (130-400); RBC Distribution Width 15.6 % (11.5-14.5); Red Blood Cell (RBC) Count 2.82 mill/uL (4.70-6.10); White Blood Cell (WBC) Count 3.5 thou/uL (4.8-10.8)
[2018-11-24 07:14] LABS: Calcium 8.5 mg/dL (7.8-10.44); Chloride 99 mmol/L (98-107); Glucose 85 mg/dL (70-105); Potassium 3.8 mmol/L (3.5-5.1); Sodium 136 mmol/L (136-145)
[2018-11-24 07:16] LABS: Anion Gap 17 mmol/L (10-20); Carbon Dioxide 24 mmol/L (22-29)
[2018-11-24 07:18] LABS: Calc. Creatinine Clearance 34 mL/min (70-130); Estimated GFR-MDRD 19
[2018-11-24 07:19] LABS: BUN (Urea Nitrogen) 35 mg/dL (8.9-20.6)
[2018-11-24 07:51] LABS: Vancomycin, Random 12.3 ug/mL (See Comment)
--- NOTE | 2018-11-24 10:05 | PRG ---
DATE OF SERVICE: 11/24/2018 SUBJECTIVE: Mr. Boo is a 48-year-old white male with ESRD-on maintenance hemodialysis and we are following him up for his maintenance hemodialysis. This morning, he feels tired. He still has decreased p.o. intake. However, he denies any chest pain or shortness of breath. He is also followed up by Hematology for his chronic thrombocytopenia. No other complaints. OBJECTIVE: VITAL SIGNS: Blood pressure is 120/78, heart rate 86, respiratory rate 16, temperature 98.1, and pulse ox 97%. GENERAL: The patient is awake, supine, comfortable, but somewhat lethargic, not in distress. SKIN: Adequate turgor. HEENT: Slightly pale conjunctivae. Anicteric sclerae. No neck mass. No carotid bruits. No JVD. CHEST: No deformities. LUNGS: Decreased breath sounds. HEART: Normal sinus rhythm. No murmurs, gallops, or rubs. ABDOMEN: Globular, soft, nontender. No masses. EXTREMITIES: No edema. MEDICATIONS: Medications of November 24, 2018 were reviewed. LABORATORY DATA: Laboratories of November 24, 2018; white count 3.5, hemoglobin 8.5, platelet count 21,000. Sodium 136, potassium 3.8, chloride 99, carbon dioxide 24, BUN 35, creatinine 3.42, C-reactive protein is 9.63, procalcitonin 0.47. Calcium is 8.5. ASSESSMENT AND PLAN: 1. End-stage renal disease, stable. We will continue current hemodialysis regimen. Fluid removal only as tolerated by the patient. 2. Chronic anemia, on weekly Epogen at 10,000 units subcu q. week-p.r.n. blood transfusion for hemoglobin less than 7. 3. Chronic thrombocytopenia. Supportive care. P.r.n. platelet transfusion if needed. 4. Generalized malaise-the patient essentially has not dramatically improved. He has a history of congestive heart failure and status post AICD placement. Cardiology is following. 5. We are awaiting definitive placement for the patient. 6. Overall agree with current management. Job ID: [id number]
[2018-11-24] MEDS: Carvedilol 3.125 MG TAB PO SCH ×2 (13:04→16:18)
[2018-11-24] MEDS: Multivitamin W/ Minerals 1 TAB PO SCH (13:04)
[2018-11-24] MEDS: Megestrol Acetate 800 MG/20 ML UDCUP PO SCH (13:04)
[2018-11-24] MEDS: Fludrocortisone Acetate 0.1 MG TAB PO SCH (13:04)
[2018-11-24] MEDS: Digoxin 0.125 MG TAB PO SCH (13:04)
[2018-11-24] MEDS: Polyethylene Glycol 3350 17 GM Packet PO SCH (13:05)
--- NOTE | 2018-11-24 13:54 | PDOC.CPN ---
- Subjective Date: 11/24/18 Time: 13:52 Interval history: The pt was seen and examined. No overnight events. No cardiac complaints - Review of Systems Respiratory: reports: congestion, shortness of breath Gastrointestinal: reports: abd pain Neurological: reports: weakness - Objective Allergies/Adverse Reactions: Allergies Allergy/AdvReac Type Severity Reaction Status Date / Time phenytoin sodium Allergy Severe Emesis Verified 11/02/18 00:52 [From Dilantin] phenytoin sodium extended Allergy Severe Emesis Verified 11/02/18 00:52 [From Dilantin] midazolam HCl [From Versed] Allergy Intermediate swelling Verified 11/02/18 00: 52 amiodarone AdvReac N/V Verified 10/28/18 10:20 Visit Medications: Current Medications Acetaminophen (Tylenol) 650 mg PO Q4H PRN PRN Reason: Headache/Fever/Mild Pain (1-3) Last Admin: 11/24/18 05:26 Dose: 650 mg Acetaminophen (Tylenol) 650 mg [place] Q4H PRN PRN Reason: Headache/Fever/Mild Pain (1-3) Carvedilol (Coreg) 3.125 mg PO BID-WM [facility] Last Admin: 11/24/18 13:04 Dose: Not Given Digoxin (Lanoxin) 0.125 mg PO TUTHSA [facility] Last Admin: 11/24/18 13:04 Dose: Not Given Diphenhydramine HCl (Benadryl) 25 mg PO Q6H PRN PRN Reason: Itching & Insomnia Last Admin: 11/20/18 20:46 Dose: 25 mg Epoetin Nain-epbx (Retacrit) 10,000 unit SC Q7D [facility] Last Admin: 11/19/18 12:55 Dose: 10,000 unit Fludrocortisone Acetate (Florinef) 0.1 mg PO DAILY [facility] Last Admin: 11/24/18 13:04 Dose: Not Given Guaifenesin/Dextromethorphan (Robitussin Dm) 10 ml PO Q6H PRN PRN Reason: Cough Hydroxyzine HCl (Atarax) 10 mg PO Q6HR PRN PRN Reason: Agitation Last Admin: 11/20/18 15:10 Dose: 10 mg Vancomycin HCl 1.25 gm/ Sodium (Chloride) 250 mls @ 166.667 mls/hr IVPB [facility]PTALI Vancomycin HCl 1 gm/ Device 200 mls @ 200 mls/hr IVPB WILLCALL [facility] Vancomycin HCl 750 mg/ Sodium (Chloride) 250 mls @ 250 mls/hr IVPB [facility] Vancomycin HCl 500 mg/ Sodium (Chloride) 100 mls @ 100 mls/hr IVPB WILLCALL [facility] Meropenem 1 gm/ Device 50 mls @ 100 mls/hr IVPB 0200,[id number] [facility] Last Admin: 11/24/18 03:00 Dose: 50 mls Iron/Minerals/Multivitamins (Theragran M) 1 tab PO DAILY [facility] Last Admin: 11/24/18 13:04 Dose: Not Given Lidocaine HCl (Xylocaine 2% Viscous) 15 ml SSW Q4H PRN PRN Reason: THROAT PAIN Last Admin: 11/19/18 02:46 Dose: 15 ml Megestrol Acetate (Megace) 800 mg PO DAILY [facility] Last Admin: 11/24/18 13:04 Dose: Not Given Melatonin (Melatonin) 6 mg PO HS PRN PRN Reason: Insomnia Last Admin: 11/23/18 22:54 Dose: 6 mg Miscellaneous Medication (Movantik) 12.5 mg PO DAILY-AC [facility] Last Admin: 11/24/18 13:03 Dose: Not Given Miscellaneous Medication (Pharmacy To Dose) 1 each IVPB PRN PRN PRN Reason: Pharmacy to dose Hold Vancomycin For (Level >20) 0 each FS .AT DIALYSIS [facility] Ondansetron HCl (Zofran Odt) 4 mg PO Q6H PRN PRN Reason: Nausea/Vomiting Last Admin: 11/17/18 10:32 Dose: 4 mg Ondansetron HCl (Zofran) 4 mg IVP Q6H PRN PRN Reason: Nausea/Vomiting Last Admin: 11/16/18 08:42 Dose: 4 mg Oxcarbazepine (Trileptal) 900 mg PO BID [facility] Last Admin: 11/23/18 21:26 Dose: 900 mg Polyethylene Glycol (Miralax) 17 gm PO DAILY [facility] Last Admin: 11/24/18 13:05 Dose: Not Given Sertraline HCl (Zoloft) 50 mg PO DAILY [facility] Last Admin: 11/24/18 13:05 Dose: Not Given Sodium Chloride (Flush - Normal Saline) 10 ml IVF Q12HR [facility] Last Admin: 11/24/18 13:04 Dose: Not Given Sodium Chloride (Flush - Normal Saline) 10 ml IVF PRN PRN PRN Reason: Saline Flush Vital Signs & Weight: Vital Signs Temp Pulse Resp BP BP Pulse Ox 11/24/18 09:01 94 L 11/24/18 08:07 98.1 F 86 16 120/78 97 11/24/18 06:49 94 L 11/24/18 04:00 98.3 F 79 20 142/80 H 94 L Admit Weight 204 lb 12.8 oz Weight 3.171 oz - Physical Exam General: alert & oriented x3 Cardiac: regular rate and rhythm Lungs: no wheeze, rales, rhonchi - Labs Result Diagrams: 11/24/18 05:55 11/24/18 05:55 Troponin/CKMB CK-MB (CK-2) 1.0 ng/mL (0-6.6) 11/01/18 23:17 Troponin I 0.280 ng/mL (< 0.028) H 11/01/18 23:17 - Assessment/Plan Assessment/Plan: 1. Atrial fibrillation with RVR - remains in SR with Digoxin PO 0.125mg on , Th, Sat; On Coreg 3.125mg BID; Not on OAC due to hx of thrombocytopenia 2. 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 ESRD with HD - managed by Dr De La Rosa 4. Non-ischemic CMY with s/p BiV AICD placement in 03/2018 5. Antiphospolipid syndrome, chronic thrombocytopenia - 6. Seizure disorder. stable. 7. Anemia - on Epoetin, 8. Fever - elevated today; ABX IV by PCP and Dr Kenney 9. abnormal LFTs 2/2 CHF - On HD 10. Nephrology will have to assist with the BP control. MAR reviewed * The pt's is considering hospice and a DNR status. However, he has to stop HD for hospice. Pt. seen and eval. by me. I agree with the A/P by the [employer]. He looks a little improved today. Chest clear. RRR. occasional ectopy. gjmays
[2018-11-24] MEDS: OXcarbazepine 300 MG TAB PO SCH ×2 (15:16→20:40)
--- NOTE | 2018-11-24 17:05 | PRG ---
DATE OF SERVICE: 11/24/2018 SUBJECTIVE: Mr. Boo is much more alert and awake, sitting up in bed, still disoriented. He did not know where he was. This seems to be a chronic problem. REVIEW OF SYSTEMS: Quite limited because of his cognitive impairment. OBJECTIVE: VITAL SIGNS: His T-max is 98.3, blood pressure 130/80, pulse 73, respirations 18, O2 saturation 95%. GENERAL: He is chronically ill-appearing, awake, in no acute distress. He just finished eating I believe his lunch and ate the entire plate. LUNGS: Symmetric. Clear breath sounds. HEART: S1 and S2, regular rate. ABDOMEN: Soft, not tender. LABORATORY DATA: White cell count 3.5, hemoglobin 8.5, platelets 21,000. INR 1.4. Sodium 136, creatinine 3.42. CRP 9.63. Albumin 2.7. Complement C3 is 65 and C4 is 11.3, which is decreased. ASSESSMENT AND DISCUSSION: Anticardiolipin syndrome with multiple areas of thrombosis and end-stage renal disease secondary to above. Still evidence of active complement activation with consumption of platelets, likely active thrombotic process. End-stage renal disease secondary to the above process with hemodialysis with tunneled hemodialysis catheter and some abnormal lung findings. Automatic implantable cardioverter defibrillator complications do not appear present at this time and the cultures from the blood are negative, so that decreases the risk of catheter infection. It is possible that the unabated activity of his autoimmune syndrome is causing this persistence of symptoms with intermittent fever. We will go ahead and discontinue antimicrobial therapy at this point in time. Job ID: [id number]
--- NOTE | 2018-11-24 18:07 | PDOC.HOSPP ---
- Subjective Encounter Date: 11/24/18 Encounter Time: 15:04 Subjective: 48 y/o male with antiphospholipid syndrome associated with multiple thrombosis as well as renal hemorrhage and ESRD requiring Hd admitted due to abdominal pain and fever associated with abnormal liver function. Acute cholecystitis was ruled out with HIDA scan and he subsequently has his TDC removed and re inserted. He however continued to have intermittent grade fever. Has been afebrile for about 7 days now with Last elevated temp being on 11/17/2018 with temp 101.9. More awake these days with improving oral intake. Had HD earlier today. Up in chair and more conversational. - Objective Vital Signs & Weight: Vital Signs (12 hours) Temp Pulse Resp BP BP Pulse Ox 11/24/18 16:10 97.8 F 73 18 138/81 95 11/24/18 13:15 97.9 F 78 20 136/80 96 11/24/18 09:01 94 L 11/24/18 08:07 98.1 F 86 16 120/78 97 11/24/18 06:49 94 L Weight Admit Weight 204 lb 12.8 oz Weight 3.171 oz Most Recent Monitor Data Heart Rate from ECG 83 NIBP 127/81 NIBP BP-Mean 96 Respiration from ECG 12 SpO2 98 I&O: 11/23/18 11/24/18 11/25/18 06:59 06:59 06:59 Intake Total 530 950 Output Total 200 200 Balance 330 750 Result Diagrams: 11/24/18 05:55 11/24/18 05:55 Hospitalist ROS - Medication Medications: Active Medications Generic Name Dose Route Start Last Admin Trade Name Destinq PRN Reason Stop Dose Admin Acetaminophen 650 mg 11/02/18 00:45 11/24/18 05:26 Tylenol PO 650 mg Q4H PRN Administration Headache/Fever/Mild Pain (1-3) Carvedilol 3.125 mg 11/15/18 17:00 11/24/18 16:18 Coreg PO 3.125 mg BID-WM NEPTALI Administration Digoxin 0.125 mg 11/12/18 09:00 11/24/18 13:04 Lanoxin PO Not Given [facility] NEPTALI Diphenhydramine HCl 25 mg 11/20/18 14:54 11/20/18 20:46 Benadryl PO 25 mg Q6H PRN Administration Itching & Insomnia Epoetin Nain-epbx 10,000 unit 11/05/18 12:00 11/19/18 12:55 Retacrit SC 10,000 unit Q7D [facility] Administration Fludrocortisone Acetate 0.1 mg 11/03/18 09:00 11/24/18 13:04 Florinef PO Not Given DAILY [facility] Hydroxyzine HCl 10 mg 11/18/18 14:18 11/20/18 15:10 Atarax PO 10 mg Q6HR PRN Administration Agitation Iron/Minerals/Multivitamins 1 tab 11/19/18 09:00 11/24/18 13:04 Theragran M PO Not Given DAILY [facility] Lidocaine HCl 15 ml 11/19/18 01:37 11/19/18 02:46 Xylocaine 2% Viscous SSW 15 ml Q4H PRN Administration THROAT PAIN Megestrol Acetate 800 mg 11/18/18 09:00 11/24/18 13:04 Megace PO Not Given DAILY [facility] Melatonin 6 mg 11/02/18 17:14 11/23/18 22:54 Melatonin PO 6 mg HS PRN Administration Insomnia Miscellaneous Medication 12.5 mg 11/08/18 07:30 11/24/18 13:03 Movantik PO Not Given DAILY-[facility] Ondansetron HCl 4 mg 11/02/18 00:45 11/17/18 10:32 Zofran Odt PO 4 mg Q6H PRN Administration Nausea/Vomiting Ondansetron HCl 4 mg 11/02/18 00:45 11/16/18 08:42 Zofran IVP 4 mg Q6H PRN Administration Nausea/Vomiting Oxcarbazepine 900 mg 11/08/18 21:00 11/24/18 15:16 Trileptal PO 900 mg BID [facility] Administration Polyethylene Glycol 17 gm 11/11/18 09:00 11/24/18 13:05 Miralax PO Not Given DAILY [facility] Sertraline HCl 50 mg 11/09/18 09:00 11/24/18 13:05 Zoloft PO Not Given DAILY [facility] Sodium Chloride 10 ml 11/05/18 21:00 11/24/18 13:04 Flush - Normal Saline IVF Not Given Q12HR [facility] - Exam General Appearance: awake alert General - other findings: chronically ill looking Eye: anicteric sclera ENT: normocephalic atraumatic Heart: irregular Respiratory: no wheezes, no ronchi Respiratory - other findings: fair air entry bilterally Gastrointestinal: soft, non-tender, non-distended, normal bowel sounds Neurological: CN's grossly intact Neurological - other findings: awake, oriented to person and place at least. memory lapses noted Hosp A/P (1) Intermittent fever Code(s): R50.9 - FEVER, UNSPECIFIED Status: Acute (2) Abnormal LFTs Code(s): R94.5 - ABNORMAL RESULTS OF LIVER FUNCTION STUDIES Status: Acute (3) Encephalopathy acute Code(s): G93.40 - ENCEPHALOPATHY, UNSPECIFIED Status: Acute (4) Moderate protein-calorie malnutrition Code(s): E44.0 - MODERATE PROTEIN-CALORIE MALNUTRITION Status: Chronic (5) Anemia of renal disease Code(s): N18.9 - CHRONIC KIDNEY DISEASE, UNSPECIFIED; D63.1 - ANEMIA IN CHRONIC KIDNEY DISEASE Status: Chronic (6) Antiphospholipid syndrome Code(s): D68.61 - ANTIPHOSPHOLIPID SYNDROME Status: Chronic (7) Atrial fibrillation Code(s): I48.91 - UNSPECIFIED ATRIAL FIBRILLATION Status: Chronic Qualifiers: Atrial fibrillation type: paroxysmal Qualified Code(s): I48.0 - Paroxysmal atrial fibrillation (8) CAD (coronary artery disease) Code(s): I25.10 - ATHSCL HEART DISEASE OF [place] CORONARY ARTERY W/O ANG PCTRS Status: Chronic Qualifiers: Coronary Disease-Associated Artery/Lesion type: [place] artery [place] vs. transplanted heart: [place] heart (9) End stage renal disease on dialysis Code(s): N18.6 - END STAGE RENAL DISEASE; Z99.2 - DEPENDENCE ON RENAL DIALYSIS Status: Chronic (10) Gout Code(s): M10.9 - GOUT, UNSPECIFIED Status: Chronic Qualifiers: Gout site: unspecified site Gout etiology: unspecified cause (11) HTN (hypertension) Code(s): I10 - ESSENTIAL (PRIMARY) HYPERTENSION Status: Chronic Qualifiers: (12) History of pulmonary embolism Code(s): Z86.711 - PERSONAL HISTORY OF PULMONARY EMBOLISM Status: Chronic (13) Nonischemic cardiomyopathy Code(s): I42.8 - OTHER CARDIOMYOPATHIES Status: Chronic (14) Pancytopenia Code(s): D61.818 - OTHER PANCYTOPENIA Status: Chronic (15) Physical deconditioning Code(s): R53.81 - OTHER MALAISE Status: Chronic (16) Seizure disorder Code(s): G40.909 - EPILEPSY, UNSP, NOT INTRACTABLE, WITHOUT STATUS EPILEPTICUS Status: Chronic (17) Thrombocytopenia Code(s): D69.6 - THROMBOCYTOPENIA, UNSPECIFIED Status: Chronic (18) Low complement measurement Code(s): R79.89 - OTHER SPECIFIED ABNORMAL FINDINGS OF BLOOD CHEMISTRY Status : Acute - Plan Off broad spectrum antibiotics as blood cultures are negative and low complements suggestive of possible thrombotic process. ? aHUS. hem/onc and ID following. HD as per Nephrology Discharge disposition: Spouse wants to take patient home with hospice but however want him to continue HD but this could not be arranged as insurance will not accommodate that. Will discuss next option of home with home health + palliative care with spouse. SNF not possible as patient has used all his allowed days and spouse cannot /does not want to pay out of pocket.
[2018-11-24] MEDS: diphenhydrAMINE 25 MG CAP PO PRN (22:11)
[2018-11-25] MEDS ORDERED: traZODone HCl 50 MG TAB PO PRN (01:41)
[2018-11-25] MEDS ORDERED: Lorazepam 2 MG/ML VIAL SLOW IVP SCH (04:00)
[2018-11-25] MEDS: OXcarbazepine 300 MG TAB PO SCH (07:57)
[2018-11-25] MEDS: Fludrocortisone Acetate 0.1 MG TAB PO SCH (07:57)
[2018-11-25] MEDS: Multivitamin W/ Minerals 1 TAB PO SCH ×2 (07:57→08:09)
[2018-11-25] MEDS: Carvedilol 3.125 MG TAB PO SCH ×2 (07:57→16:58)
[2018-11-25] MEDS: Polyethylene Glycol 3350 17 GM Packet PO SCH (07:58)
[2018-11-25] MEDS: Megestrol Acetate 800 MG/20 ML UDCUP PO SCH (07:58)
--- NOTE | 2018-11-25 09:13 | PDOC.CPN ---
- Subjective Date: 11/25/18 Time: 09:14 Interval history: The pt seen and examined. No overnight events. No cardiac complaints. - Review of Systems Neurological: reports: weakness - Objective Allergies/Adverse Reactions: Allergies Allergy/AdvReac Type Severity Reaction Status Date / Time phenytoin sodium Allergy Severe Emesis Verified 11/02/18 00:52 [From Dilantin] phenytoin sodium extended Allergy Severe Emesis Verified 11/02/18 00:52 [From Dilantin] midazolam HCl [From Versed] Allergy Intermediate swelling Verified 11/02/18 00: 52 amiodarone AdvReac N/V Verified 10/28/18 10:20 Visit Medications: Current Medications Acetaminophen (Tylenol) 650 mg PO Q4H PRN PRN Reason: Headache/Fever/Mild Pain (1-3) Last Admin: 11/24/18 22:11 Dose: 650 mg Acetaminophen (Tylenol) 650 mg [place] Q4H PRN PRN Reason: Headache/Fever/Mild Pain (1-3) Carvedilol (Coreg) 3.125 mg PO BID-[facility] Last Admin: 11/25/18 07:57 Dose: 3.125 mg Digoxin (Lanoxin) 0.125 mg PO TUTHSA [facility] Last Admin: 11/24/18 13:04 Dose: Not Given Diphenhydramine HCl (Benadryl) 25 mg PO Q6H PRN PRN Reason: Itching & Insomnia Last Admin: 11/24/18 22:11 Dose: 25 mg Epoetin Nain-epbx (Retacrit) 10,000 unit SC Q7D [facility] Last Admin: 11/19/18 12:55 Dose: 10,000 unit Fludrocortisone Acetate (Florinef) 0.1 mg PO DAILY [facility] Last Admin: 11/25/18 07:57 Dose: 0.1 mg Guaifenesin/Dextromethorphan (Robitussin Dm) 10 ml PO Q6H PRN PRN Reason: Cough Hydroxyzine HCl (Atarax) 10 mg PO Q6HR PRN PRN Reason: Agitation Last Admin: 11/20/18 15:10 Dose: 10 mg Iron/Minerals/Multivitamins (Theragran M) 1 tab PO DAILY [facility] Last Admin: 11/25/18 08:09 Dose: Not Given Lidocaine HCl (Xylocaine 2% Viscous) 15 ml SSW Q4H PRN PRN Reason: THROAT PAIN Last Admin: 11/19/18 02:46 Dose: 15 ml Megestrol Acetate (Megace) 800 mg PO DAILY [facility] Last Admin: 11/25/18 07:58 Dose: 800 mg Melatonin (Melatonin) 6 mg PO HS PRN PRN Reason: Insomnia Last Admin: 11/23/18 22:54 Dose: 6 mg Miscellaneous Medication (Movantik) 12.5 mg PO DAILY-AC [facility] Last Admin: 11/25/18 07:58 Dose: 12.5 mg Miscellaneous Medication (Pharmacy To Dose) 1 each IVPB PRN PRN PRN Reason: Pharmacy to dose Hold Vancomycin For (Level >20) 0 each FS .AT DIALYSIS [facility] Ondansetron HCl (Zofran Odt) 4 mg PO Q6H PRN PRN Reason: Nausea/Vomiting Last Admin: 11/17/18 10:32 Dose: 4 mg Ondansetron HCl (Zofran) 4 mg IVP Q6H PRN PRN Reason: Nausea/Vomiting Last Admin: 11/16/18 08:42 Dose: 4 mg Oxcarbazepine (Trileptal) 900 mg PO BID [facility] Last Admin: 11/25/18 07:57 Dose: 900 mg Polyethylene Glycol (Miralax) 17 gm PO DAILY [facility] Last Admin: 11/25/18 07:58 Dose: Not Given Sertraline HCl (Zoloft) 50 mg PO DAILY [facility] Last Admin: 11/25/18 07:57 Dose: 50 mg Sodium Chloride (Flush - Normal Saline) 10 ml IVF Q12HR [facility] Last Admin: 11/25/18 07:58 Dose: 10 ml Sodium Chloride (Flush - Normal Saline) 10 ml IVF PRN PRN PRN Reason: Saline Flush Trazodone HCl (Desyrel) 25 mg PO HS PRN PRN Reason: Insomnia Last Admin: 11/25/18 02:02 Dose: 25 mg Vital Signs & Weight: Vital Signs Temp Pulse Resp BP Pulse Ox 11/25/18 07:45 97.6 F 87 18 114/69 94 L 11/25/18 04:00 97.8 F 80 18 130/86 97 11/25/18 00:00 97.7 F 87 18 104/65 95 Admit Weight 204 lb 12.8 oz Weight 195 lb 8.8 oz - Physical Exam Cardiac: regular rate and rhythm Lungs: clear to auscultation Neuro: cranial nerve 2-12 intact Musculoskeletal: decreased range of motion - Labs Result Diagrams: 11/24/18 05:55 11/24/18 05:55 Troponin/CKMB CK-MB (CK-2) 1.0 ng/mL (0-6.6) 11/01/18 23:17 Troponin I 0.280 ng/mL (< 0.028) H 11/01/18 23:17 - Assessment/Plan Assessment/Plan: 1. Atrial fibrillation with RVR - remains in SR with Digoxin PO 0.125mg on , Th, Sat; On Coreg 3.125mg BID; Not on OAC due to hx of thrombocytopenia 2. 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 ESRD with HD - managed by Dr De La Rosa 4. Non-ischemic CMY with s/p BiV AICD placement in 03/2018 5. Antiphospolipid syndrome, chronic thrombocytopenia - 6. Seizure disorder. stable. 7. Anemia - on Epoetin, 8. Fever - elevated today; ABX IV by PCP and Dr Kenney 9. abnormal LFTs 2/2 CHF - On HD 10. Nephrology will have to assist with the BP control. MAR reviewed * The pt's is considering hospice and a DNR status. However, he has to stop HD for hospice.
--- NOTE | 2018-11-25 10:00 | PRG ---
DATE OF SERVICE: 11/25/2018 SUBJECTIVE: Mr. Boo is a 48-year-old white male with ESRD and followed up by the Renal Service for his maintenance hemodialysis. He underwent dialysis yesterday without any difficulty. He tolerated the said dialysis. This morning, he has been up and about. He is mentating much better. He has been evaluated by Infectious Disease Service, and he was initially seen due to the fever. Recommendation is to discontinue antimicrobial therapy for the moment. The patient voices no other complaints. He denies any chest pain or shortness of breath. OBJECTIVE: VITAL SIGNS: Blood pressure is noted at 114/69, heart rate 87, respiratory rate 18, temperature 97.6, pulse ox 94%. GENERAL: Noted to be awake, alert, comfortable, not in overt distress. SKIN: Adequate turgor. HEENT: Slightly pale conjunctivae. Anicteric sclerae. No neck mass. No carotid bruits. No JVD. CHEST: No deformities. LUNGS: Clear breath sounds. HEART: Normal sinus rhythm. No murmurs, gallops, or rubs. ABDOMEN: Globular, soft, nontender. No masses. EXTREMITIES: No edema. No deformities. MEDICATIONS: Medications of November 25, 2018, was reviewed. LABORATORY DATA: Laboratories of November 25, 2018, none done. ASSESSMENT AND PLAN: 1. End-stage renal disease, stable. We will continue current hemodialysis regimen on Wednesday, , and Wednesday. 2. Chronic thrombocytopenia. Hematology is following. 3. He will receive p.r.n. platelet transfusion if the platelet count is less than 10,000. 4. Anemia. Continuing weekly Epogen. 5. Overall prognosis remains guarded. Overall continue supportive care. Job ID: [id number]
[2018-11-25 14:25] VITALS: BMI 23.1
[2018-11-25 16:58] VITALS: BP 124/82; TEMP 98
== END 2018-11-25 18:22 | disposition home health service (06) | DRG 314 ==
LOC: ERS 18:23 → 2NO 19:57 → ERS 11-02 00:23 → IMCU/EMU 11-09 18:57 → T4-B 11-21 18:24
PROVIDERS: ADMIT Hospitalist; ATTEND Hospitalist
PROC: 05PY33Z Removal of Infusion Device from Upper Vein, Percutaneous Approach (ICD-10-PCS; principal; 2018-11-01)
PROC: B5131ZA Fluoroscopy of Right Jugular Veins using Low Osmolar Contrast, Guidance (ICD-10-PCS; 2018-11-03)
PROC: 0JHD3XZ Insertion of Tunneled Vascular Access Device into Right Upper Arm Subcutaneous Tissue and Fascia, Percutaneous Approach (ICD-10-PCS; 2018-11-03)
PROC: 05HM33Z Insertion of Infusion Device into Right Internal Jugular Vein, Percutaneous Approach (ICD-10-PCS; 2018-11-03)
PROC: B543ZZA Ultrasonography of Right Jugular Veins, Guidance (ICD-10-PCS; 2018-11-03)
PROC: 5A1D70Z Performance of Urinary Filtration, Intermittent, Less than 6 Hours Per Day (ICD-10-PCS; 2018-11-18)
DX: T82.7XXA Infection and inflammatory reaction due to other cardiac and vascular devices, implants and grafts, initial encounter (principal); N18.6 End stage renal disease; I50.23 Acute on chronic systolic (congestive) heart failure; A41.9 Sepsis, unspecified organism; G93.41 Metabolic encephalopathy; D68.61 Antiphospholipid syndrome; I42.9 Cardiomyopathy, unspecified; I13.2 Hypertensive heart and chronic kidney disease with heart failure and with stage 5 chronic kidney disease, or end stage renal disease; E44.0 Moderate protein-calorie malnutrition; D61.818 Other pancytopenia; N17.9 Acute kidney failure, unspecified; G40.909 Epilepsy, unspecified, not intractable, without status epilepticus; I48.91 Unspecified atrial fibrillation; I25.10 Atherosclerotic heart disease of native coronary artery without angina pectoris; I69.911 Memory deficit following unspecified cerebrovascular disease; R53.81 Other malaise; D69.6 Thrombocytopenia, unspecified; M19.91 Primary osteoarthritis, unspecified site; F32.9 Major depressive disorder, single episode, unspecified; M10.9 Gout, unspecified; D63.1 Anemia in chronic kidney disease; I48.2 Chronic atrial fibrillation; Z66 Do not resuscitate; Z51.5 Encounter for palliative care; Z88.8 Allergy status to other drugs, medicaments and biological substances; Z79.899 Other long term (current) drug therapy; Z98.890 Other specified postprocedural states; Z99.2 Dependence on renal dialysis; Z86.718 Personal history of other venous thrombosis and embolism; Z86.711 Personal history of pulmonary embolism; Z68.23 Body mass index [BMI] 23.0-23.9, adult
CPT/HCPCS: 36415; 36430; 70450; 71045; 76000; 76705; 78227; 80048; 80053; 80069; 80076; 80202; 82140; 82550; 82553; 83605; 83880; 84145; 84484; 85007; 85025; 85027; 85610; 85652; 86140; 86160; 86850; 86900; 86901; 87040; 90935; 93005; 93798; 94640; 96374; A9537; C1752; C1769; G0257; J0670; J1160; J1642; J1644; J2001; J2060; J2185; J2250; J2270; J2405; J2543; J2704; J3010; J3370; J3490; J7050; J7620; P9016; Q0162; Q0163; Q5105

== ENCOUNTER 2018-12-01 17:50 | Inpatient (IN) | payer MEDICARE ==
[~2018-12-01 17:50] MED LIST changes: +Heparin 10,000 UNITS/ 10 ML VIAL ONE; -ISOVUE-370 76%-LOCM 1 ML ONE
--- NOTE | 2018-12-01 18:30 | RAD ---
CHEST ONE VIEW: 12/01/18 INDICATION: History of dyspnea and dialysis dependent. COMPARISON: Prior study dated 11/18/18. FINDINGS: There is bilateral perihilar opacities and small bilateral pleural effusions suspicious for edema and volume overload. There is marked cardiomegaly. There is a right sided dialysis catheter. There is a multilead AICD. No pneumothorax is evident. IMPRESSION: Findings suspicious for volume overload or CHF. POS: BH
[2018-12-01] MEDS ORDERED: Ketamine 50 MG/ML (10ML VIAL) ONE ×2 (18:37→20:28)
[2018-12-01 18:41] LABS: #Lymphocytes 0.6 thou/uL (1.20-3.40); #Monocytes 0.3 thou/uL (0.11-0.59); %Basophils 0.2 % (0.0-1.0); %Eosinophils 0.9 % (0.0-10.0); %Lymphocytes 15.4 % (21.0-51.0); %Monocytes 6.8 % (0.0-10.0); %Neutrophils 76.7 % (42.0-75.0); Hemoglobin 8.1 g/dL (14.0-18.0); Mean Corpuscular HGB CONC 33.5 g/dL (32.0-36.0); Mean Corpuscular Hemoglobin 30.4 pg (27.0-31.0); Mean Corpuscular Volume 90.6 fL (78.0-98.0); Mean Platelet Volume 11.4 fL (7.4-10.4); Platelet Count 39 thou/uL (130-400); RBC Distribution Width 16.2 % (11.5-14.5); Red Blood Cell (RBC) Count 2.67 mill/uL (4.70-6.10)
[2018-12-01 19:04] LABS: ALT (SGPT) 11 U/L (8-55); AST (SGOT) 21 U/L (5-34); Albumin 3.2 g/dL (3.5-5.0); Alkaline Phosphatase 254 U/L (40-150); Anion Gap 15 mmol/L (10-20); BUN (Urea Nitrogen) 33 mg/dL (8.9-20.6); Bilirubin, Total 1.1 mg/dL (0.2-1.2); CK (CPK) 47 U/L (30-200); Calc. Creatinine Clearance 0 mL/min (70-130); Calcium 8.9 mg/dL (7.8-10.44); Carbon Dioxide 25 mmol/L (22-29); Chloride 102 mmol/L (98-107); Estimated GFR-MDRD 30; Globulin 3.9 g/dL (2.4-3.5); Glucose 81 mg/dL (70-105); Potassium 3.8 mmol/L (3.5-5.1); Protein, Total 7.1 g/dL (6.0-8.3); Sodium 138 mmol/L (136-145)
[2018-12-01] MEDS ORDERED: Ondansetron PF 4 MG/2 ML Vial IVP PRN (20:18)
[2018-12-01] MEDS ORDERED: Acetaminophen 650 MG Suppository ONE (20:18)
[2018-12-01] MEDS ORDERED: Ondansetron ODT 4 MG TAB PO PRN (20:18)
[2018-12-01] MEDS ORDERED: Acetaminophen 650 MG Suppository PR PRN (20:18)
[2018-12-01] MEDS ORDERED: Piperacillin/Tazobactam 3.375 GM VIAL ONE (20:20)
[2018-12-01 20:56] LABS: Troponin I 0.396 ng/mL (< 0.028)
--- NOTE | 2018-12-01 21:43 | HP ---
PRIMARY CARE PHYSICIAN: Dr. Benavides. CHIEF PROJECTIONIST: Dr. Vasquez. ESCALATOR CONSTRUCTOR: Dr. Olson. RETENTION MANAGER: Dr. Jefferson. HISTORY OF PRESENT ILLNESS: The patient came to the hospital after having an episode of sudden onset, gradually worsening shortness of breath. The patient was at dialysis today, but it seems that the patient had fever of 102.3 and also saturation dropped to 84. At baseline, he does not use oxygen. Nurse reported that the patient was tachypneic. Guardian report that the patient had not been able to complete dialysis. On evaluation in the ER, he was found to have pulmonary congestion, was started on BiPAP due to respiratory failure. By the time of my examination, the patient is alert, not a good historian. Information has been gathered from . Symptoms are severe. We will place in IMCU. Discussed with the patient is DNR/DNI. This decision had been achieved in the past since 2 weeks ago. REVIEW OF SYSTEMS: Unable to obtain. The patient is uncooperative to interview, is on BiPAP. PAST MEDICAL HISTORY: The patient has a history of bilateral lower extremity DVT, PE of both lungs, hypertension, mitral valve leak, pacemaker and defibrillator, lobectomy due to seizures. The patient also has a history of antiphospholipid syndrome. PAST SURGICAL HISTORY: Cardiac cath, brain surgery for seizures, IVC filter placed in July, left arm AV graft. PSYCHIATRIC HISTORY: No previous psych history. SOCIAL HISTORY: Lives at home with family. No alcohol. No drugs. No smoking history. KNOWN ALLERGIES: To amiodarone, phenytoin, and Versed. REPORTED MEDICATIONS: Fludrocortisone, Coreg, Trileptal. PHYSICAL EXAMINATION: VITAL SIGNS: On presentation, blood pressure 125/68 with heart rate 108, respiratory rate was 20, pain was 10/10, oxygen saturation was 92% on 4 L. Vital signs have improved. GENERAL APPEARANCE: The patient is in mild distress due to respiratory failure. The patient is on BiPAP, hypoxic, feeling better. HEENT: Eyes, normal conjunctivae. Moist oral mucosa. Anicteric. No JVD. RESPIRATORY: Bilateral air entry is decreased. The patient has bilateral rales and wheezing. ABDOMEN: Soft, normal bowel sounds. MUSCULOSKELETAL: Baseline range of motion and strength. The patient's left heel is very swollen. As per patient's , this has been going on for a week now. No redness. SKIN: Warm, intact. No pallor. No rash. No redness. Capillary refill seems to intact. NEUROLOGIC: The patient has left-sided weakness. reported this has been going on for a month now. He did not have any history of stroke before this finding. PSYCHIATRIC: Unable to explore. DIAGNOSTIC DATA: EKG was reviewed. The patient has sinus tachycardia at a rate of 108 with no ectopics, possible left ventricular hypertrophy. Radiology showed cardiomegaly, pulmonary vascular congestion, pacemaker defibrillator. LABORATORY DATA: Reviewed. White count 4.0, hemoglobin 8.1, MCV 90.6, platelet count 39. Sodium 138, potassium 3.8, chloride 102, carbon dioxide 25, anion gap 15, BUN 33, creatinine 2.31, the previous creatinine was 3.4, so it is improved, likely due to dialysis today. GFR is 30. Lactic acid 1.0. Troponin 0.3. Beta-natriuretic peptide 4073. Serum total protein 7.1, albumin 3.2, globulin 3.9, albumin globulin ratio is 0.8. ASSESSMENT AND PLAN: The patient will be placed in the hospital with following medical problems; 1. Acute hypoxic respiratory failure. The patient needing BiPAP to improve respiratory distress. Vital signs have returned to normal. The patient is in fluid overload. The patient will need emergent dialysis. Nephro has been consulted. This will happen overnight as per ER report. We will continue on ventilatory support, patient is better. 2. End-stage renal disease. The patient is in fluid overload. As mentioned above, is going for dialysis. 3. Systemic inflammatory response syndrome. The patient has fever. The patient has tachycardia. The patient has respiratory failure, unclear etiology. On x-ray, the infection was not clearly seen. The patient has been covered with broad-spectrum antibiotics given the severity of illness and since this patient is a weak host. We will follow cultures and we will treat accordingly. Adjust as per sensitivity. 4. Pancytopenia. This is likely secondary to chronic kidney disease. We will monitor, the value seems to be stable. 5. Positive troponin of 0.3. This is likely secondary to underlying end-stage renal disease. We will monitor level and we will treat accordingly. 6. History of comorbidities and history of antiphospholipid syndrome. The patient at high risk for any further thromboembolic disease. The patient is unable to take anticoagulation due to recent life-threatening internal bleeding as reported by . The patient has IVC filter. We will continue to monitor. Prognosis due to this fact is very poor. 7. Possible left-sided stroke, this is not new. The patient has the symptoms for the past 30 days. Given underlying history of antiphospholipid syndrome, could be a fact that patient developed a stroke a month ago. 8. Very poor prognosis discussed with . is aware of multiple comorbidities and poor prognosis. The patient is DNR/DNI at this point. 9. History of labile hypertension. The patient received dialysis and received dialysis again. We will hold the medications for now. We will monitor his blood pressure and treat accordingly. 10. History of seizures. This is chronic, stable, reconcile home medications. We will treat accordingly. 11. History of atrial fibrillation, status post pacemaker. The patient also has a defibrillator placed. This is chronic, stable, reconcile home medications. 12. History of systolic heart failure with last EF 30% to 35%, this was seen on echo done in May of this year. The patient is going for dialysis to remove fluid overload and we will reconcile home medications and treat accordingly. Job ID: [id number]
[2018-12-01 21:56] VITALS: BMI 22.8
[2018-12-01 22:22] LABS: HBSAg Index 0.25 S/CO (0-0.99); Hep B Surf Ag Non-Reactive S/CO (NonReactive)
[2018-12-02 05:09] LABS: #Lymphocytes 0.6 thou/uL (1.20-3.40); #Monocytes 0.3 thou/uL (0.11-0.59); #Neutrophils 1.5 thou/uL (1.40-6.50); %Eosinophils 1.7 % (0.0-10.0); %Lymphocytes 24.3 % (21.0-51.0); %Neutrophils 62.1 % (42.0-75.0); Hemoglobin 6.8 g/dL (14.0-18.0); Mean Corpuscular HGB CONC 33.7 g/dL (32.0-36.0); Mean Corpuscular Volume 91.9 fL (78.0-98.0); Mean Platelet Volume 10.6 fL (7.4-10.4); Platelet Count 33 thou/uL (130-400); RBC Distribution Width 15.9 % (11.5-14.5); Red Blood Cell (RBC) Count 2.19 mill/uL (4.70-6.10); White Blood Cell (WBC) Count 2.4 thou/uL (4.8-10.8)
[2018-12-02 05:26] LABS: Anion Gap 16 mmol/L (10-20); BUN (Urea Nitrogen) 21 mg/dL (8.9-20.6); Calc. Creatinine Clearance 62 mL/min (70-130); Calcium 8.6 mg/dL (7.8-10.44); Carbon Dioxide 25 mmol/L (22-29); Chloride 102 mmol/L (98-107); Estimated GFR-MDRD 40; Glucose 83 mg/dL (70-105); Potassium 3.5 mmol/L (3.5-5.1); Sodium 139 mmol/L (136-145)
[2018-12-02] MEDS ORDERED: Vancomycin HCl 500 MG in Sodium Chloride 0.9% 100 ML IVPB SCH (09:00)
[2018-12-02] MEDS ORDERED: Vancomycin HCl 1 GM in Premix Bag 1 BAG IVPB SCH (09:00)
[2018-12-02] MEDS ORDERED: Vancomycin HCl 750 MG in Sodium Chloride 0.9% 250 ML 250 ML IVPB SCH (09:00)
[2018-12-02] MEDS ORDERED: HOLD VANCOMYCIN FOR LEVEL >20 FS SCH (09:00)
[2018-12-02] MEDS ORDERED: Vancomycin HCl 1.25 GM in Sodium Chloride 0.9% 250 ML 250 ML IVPB SCH (09:00)
--- NOTE | 2018-12-02 09:29 | PDOC.HOSPP ---
- Subjective Encounter Date: 12/02/18 Subjective: He denies any complaints, he is slightly confused but easily re-oriented, he does not appear in distress. - Objective Vital Signs & Weight: Vital Signs (12 hours) Temp Pulse Pulse Ox 12/02/18 07:13 97.6 F 12/02/18 03:37 98.1 F 12/02/18 02:29 80 12/02/18 00:07 98.8 F 12/01/18 22:29 100 12/01/18 21:51 99.6 F 12/01/18 21:50 85 Weight Weight 193 lb 3.2 oz Most Recent Monitor Data Heart Rate from ECG 95 NIBP 106/64 NIBP BP-Mean 78 Respiration from ECG 17 SpO2 100 I&O: 12/01/18 12/02/18 12/03/18 06:59 06:59 06:59 Intake Total 210 Output Total 2100 Balance -1890 Result Diagrams: 12/02/18 04:35 12/02/18 04:35 - Exam General Appearance: NAD, awake alert Eye: PERRL, anicteric sclera ENT: normocephalic atraumatic, no oropharyngeal lesions, moist mucosa Neck: supple, symmetric, no JVD, no thyromegaly, no lymphadenopathy, no carotid bruit Heart: RRR, no murmur, no gallops, no rubs, normal peripheral pulses Respiratory: no ronchi Gastrointestinal: soft Hosp A/P (1) Encephalopathy acute Code(s): G93.40 - ENCEPHALOPATHY, UNSPECIFIED Status: Acute (2) Intermittent fever Code(s): R50.9 - FEVER, UNSPECIFIED Status: Acute (3) Anemia of renal disease Code(s): N18.9 - CHRONIC KIDNEY DISEASE, UNSPECIFIED; D63.1 - ANEMIA IN CHRONIC KIDNEY DISEASE Status: Chronic (4) Elevated troponin Code(s): R74.8 - ABNORMAL LEVELS OF OTHER SERUM ENZYMES Status: Chronic (5) End stage renal disease on dialysis Code(s): N18.6 - END STAGE RENAL DISEASE; Z99.2 - DEPENDENCE ON RENAL DIALYSIS Status: Chronic (6) Seizure disorder Code(s): G40.909 - EPILEPSY, UNSP, NOT INTRACTABLE, WITHOUT STATUS EPILEPTICUS Status: Chronic - Plan Neuro---resume his seizure meds when we have the correct dosage. Cardiac--most likely type 2 NSTEMI---consult Cardio---will keep holding his BP meds for low BP Hem---worsening Anemia---will transfuse, will time it with HD or give Lasix --- monitor platelets DVT---he has an IVC. ESRD---continue HD Fever--source unknown---keep ATB for now.
[2018-12-02 09:58] LABS: Vancomycin, Trough 21.1 ug/mL
[2018-12-02] MEDS ORDERED: EPOETIN ALFA-EPBX (ESRD) 10,000 UNIT/ML VIAL SC SCH ×2 (10:00→18:00)
--- NOTE | 2018-12-02 10:26 | PRG ---
DATE OF SERVICE: 12/02/2018 SUBJECTIVE: Mr. Boo is a 48-year-old white male with ESRD and was admitted for congestive heart failure. He underwent a 2-hour hemodialysis and removed about 2 L. He initially was dialyzed as an outpatient, but he did not tolerate the treatment there. He became quite agitated and confused, and hence, the admission. This morning, he is still mildly short of breath. He was also noted to be anemic. OBJECTIVE: VITAL SIGNS: Blood pressure is 106/64, heart rate 95, respiratory rate 17, and pulse ox 100% on 2L. GENERAL: The patient is awake, supine, comfortable, not in overt distress. SKIN: Adequate turgor. HEENT: Pale conjunctivae. Anicteric sclerae. NECK: No neck mass. No carotid bruits. No JVD. CHEST: No deformities. LUNGS: Clear breath sounds. HEART: Normal sinus rhythm. No murmur. No gallops. No rubs. ABDOMEN: Globular, soft, and nontender. No masses. EXTREMITIES: No edema. No deformities. MEDICATIONS: Medications of 12/02/2018 were reviewed. LABORATORY DATA: On 12/02/2018: White count 2.4, hemoglobin 6.8, and platelet count is 33,000. Sodium 139, potassium 3.5, chloride 102, carbon dioxide 25, BUN 21, and creatinine 1.81. Troponin-I 0.396. Calcium 8.6. ASSESSMENT AND PLAN: 1. Shortness of breath/volume overload. We will do a short 2-hour dialysis today. My plan is to do a simple ultrafiltration and remove fluid only as tolerated by the patient. We will monitor blood pressure quite frequently with the dialysis. 2. Anemia. We will give 2 units of packed red blood cell. We will resume Epogen 10,000 units subcutaneous every week. 3. End-stage renal disease. After today's dialysis, we will resume back the patient on a regular Wednesday, , Wednesday hemodialysis regimen. Overall, prognosis remains guarded. Job ID: [id number]
[2018-12-02] MEDS: Acetaminophen 325 MG TAB PO PRN (10:37)
[2018-12-02] MEDS: Enoxaparin Sodium 40 MG/0.4 ML SYRINGE SC SCH (10:38)
[2018-12-02] MEDS: Piperacillin/Tazobactam 2.25 GM in Sodium Chloride 0.9% 100 ML IVPB SCH ×2 (10:39→21:14)
--- NOTE | 2018-12-02 13:12 | CON ---
DATE OF CONSULTATION: 12/02/2018 REASON FOR CONSULTATION: [facility] care. HISTORY OF PRESENT ILLNESS: The patient is a 48-year-old male, who became short of breath and febrile during dialysis yesterday. He was brought to the hospital for further care. He is rather nondescript in terms of symptoms. PAST MEDICAL HISTORY: 1. End-stage renal disease, requiring dialysis. 2. Seizure disorder. 3. Systolic heart failure. 4. Antiphospholipid antibody syndrome. 5. Chronic thrombocytopenia. 6. Atrial fibrillation/flutter. PAST SURGICAL HISTORY: 1. AICD placement. 2. Dialysis catheter placement. 3. Dialysis fistula placement. MEDICATIONS: Prior to admission; 1. Trazodone 25 mg nightly. 2. Zoloft 50 mg daily. 3. MiraLAX 17 g daily. 4. Zofran 4 mg every 6 hours as needed. 5. Naloxegol oxalate 12.5 mg daily. 6. one tab daily. 7. Melatonin 6 mg nightly. 8. Megace 800 mg daily. 9. Florinef daily. 10. Colace 100 mg b.i.d. 11. Lanoxin 0.125 mg daily. 12. Coreg 3.125 mg b.i.d. 13. Tylenol 650 mg as needed. 14. Trileptal is also listed, but dose is not known. ALLERGIES: PHENYTOIN, VERSED, AND AMIODARONE. SOCIAL HISTORY: Nonsmoker. Does not consume alcohol. FAMILY MEDICAL HISTORY: Remarkable for cardiac disease. REVIEW OF SYSTEMS: Basically positive for everything when you ask questions. PHYSICAL EXAMINATION: VITAL SIGNS: Temperature 96.7, pulse 95, blood pressure 106/64, and O2 saturation 100%. GENERAL: He is a chronically ill-appearing male, who appears grossly older than stated age. HEENT: He has bitemporal wasting. He has a dry oral mucous membranes. He has class II Mallampati airway. NECK: No adenopathy or JVD. LUNGS: Clear to auscultation anteriorly. CARDIOVASCULAR: S1 and S2 regular without murmur. ABDOMEN: Soft, nontender. EXTREMITIES: Severe muscle wasting. LABORATORY DATA: White blood cell count 2.4, hemoglobin 6.8, hematocrit 20.1, and platelet count 33. Sodium 139, potassium 3.5, chloride 102, CO2 of 25, BUN 21, creatinine 1.8, and glucose 83. His vancomycin level was 21. IMAGING DATA: Chest x-ray shows cardiomegaly, AICD, dialysis catheter, bilateral infiltrative changes. ASSESSMENT: 1. Febrile illness. 2. Suspected pneumonia. 3. Severe anemia. 4. Chronic renal failure. 5. Chronic systolic heart failure. 6. History of atrial fibrillation. 7. Multiple other medical problems. PLAN: 1. I agree with the empiric antibiotics, Zosyn and vancomycin. 2. Dialysis. 3. The patient's code status is DNAR. 4. He has been weaned off the BiPAP. I doubt that would not be needed any further. From my standpoint, he can probably move to telemetry this afternoon. Job ID: [id number]
[2018-12-02] MEDS ORDERED: Heparin 10,000 UNITS/1 ML VIAL ONE (15:00)
--- NOTE | 2018-12-02 18:17 | CT ---
CT Abdomen Pelvis WO Con: 12/02/2018 1:56 PM HISTORY: Anemia with history of retroperitoneal bleed COMPARISON: 10/28/2018, 03/26/2018 TECHNIQUE: Multiple contiguous axial images were obtained and a CT of the abdomen and pelvis without IV contrast . Coronal reformats were performed. FINDINGS: This examination is limited for the evaluation of solid organs and vascular structures due to the lac k of intravenous contrast. Lower Chest: Bibasilar multifocal infiltrates are unchanged. Abdomen: Liver: within normal limits. Bile Ducts: Normal caliber. Gallbladder: No calcified gallstones. Normal caliber wall. Pancreas: within normal limits. Spleen: within normal limits. Adrenals: within normal limits. Kidneys: The left kidney is small and atrophic with near complete resolution of the fluid adjacent to the left kidney. Pelvis: Reproductive Organs: No pelvic masses. Ureters: within normal limits. Bladder: Decompressed by Morris catheter. Bowel: Normal caliber. Mesenteric Lymph Nodes: No enlarged mesenteric lymph nodes. Peritoneum: No ascites or free air, no fluid collection. Vessels: An IVC filter is seen. Retroperitoneum: within normal limits. Abdominal Wall: Multiple varices seen in the anterior abdominal wall. Bones: Unremarkable. IMPRESSION: 1. No evidence of acute intraabdominal or pelvic abnormality. 2. Persistent but much smaller fluid collection adjacent to the small left kidney. 3. Stable bibasilar pulmonary infiltrates
[2018-12-02] MEDS: OXcarbazepine 300 MG TAB PO SCH (21:14)
[2018-12-03 06:28] LABS: #Eosinphils 0.1 thou/uL (0.0-0.7); #Lymphocytes 0.9 thou/uL (1.20-3.40); #Monocytes 0.3 thou/uL (0.11-0.59); #Neutrophils 3.4 thou/uL (1.40-6.50); %Basophils 0.3 % (0.0-1.0); %Lymphocytes 18.5 % (21.0-51.0); %Neutrophils 72.1 % (42.0-75.0); Hemoglobin 8.2 g/dL (14.0-18.0); Mean Corpuscular HGB CONC 31.8 g/dL (32.0-36.0); Mean Corpuscular Hemoglobin 29.2 pg (27.0-31.0); Mean Corpuscular Volume 91.7 fL (78.0-98.0); Mean Platelet Volume 11.7 fL (7.4-10.4); Platelet Count 34 thou/uL (130-400); RBC Distribution Width 15.7 % (11.5-14.5); Red Blood Cell (RBC) Count 2.82 mill/uL (4.70-6.10); White Blood Cell (WBC) Count 4.7 thou/uL (4.8-10.8)
[2018-12-03 06:57] LABS: Vancomycin, Random 16.9 ug/mL (See Comment)
[2018-12-03 07:05] LABS: Anion Gap 14 mmol/L (10-20); BUN (Urea Nitrogen) 27 mg/dL (8.9-20.6); Calc. Creatinine Clearance 39 mL/min (70-130); Calcium 8.4 mg/dL (7.8-10.44); Carbon Dioxide 24 mmol/L (22-29); Chloride 102 mmol/L (98-107); Estimated GFR-MDRD 24; Glucose 96 mg/dL (70-105); Potassium 3.8 mmol/L (3.5-5.1); Sodium 136 mmol/L (136-145)
[2018-12-03] MEDS: Piperacillin/Tazobactam 2.25 GM in Sodium Chloride 0.9% 100 ML IVPB SCH ×2 (09:32→20:44)
[2018-12-03] MEDS: Benzonatate 100 MG CAP PO PRN (09:32)
[2018-12-03] MEDS: Nystatin Powder 15 GM BOT TOP PRN (09:33)
[2018-12-03] MEDS: Acetaminophen 325 MG TAB PO PRN (09:33)
[2018-12-03] MEDS: Fludrocortisone Acetate 0.1 MG TAB PO SCH (09:33)
[2018-12-03] MEDS: OXcarbazepine 300 MG TAB PO SCH ×2 (09:33→20:44)
[2018-12-03] MEDS: Enoxaparin Sodium 40 MG/0.4 ML SYRINGE SC SCH (09:34)
[2018-12-03] MEDS: Megestrol Acetate 800 MG/20 ML UDCUP PO SCH (09:34)
--- NOTE | 2018-12-03 09:49 | CON ---
DATE OF CONSULTATION: 12/03/2018 PRIMARY DRY CELL AND BATTERY ASSEMBLER: Dr. Zane Jefferson. HISTORY OF PRESENT ILLNESS: Mr. Hans Boo is a very unfortunate 48-year-old gentleman, patient of Dr. Jefferson. He has been here in the hospital multiple occasions and recently discharged home. He was brought to the emergency room yesterday, who had a febrile episode during dialysis. Cardiac enzymes obtained were slightly elevated. PAST MEDICAL HISTORY: 1. End-stage renal disease. 2. Systolic heart failure. 3. Chronic thrombocytopenia. 4. Previous atrial fibrillation/flutter. PAST SURGICAL HISTORY: 1. Defibrillator implantation. 2. Dialysis catheter placement, dialysis fistula placement. MEDICATIONS: Please see nurse's notes. REVIEW OF SYSTEMS: Really not obtainable, he is very sleepy now. PHYSICAL EXAMINATION: GENERAL: This is a pleasant gentleman. He does look somewhat flushed. VITAL SIGNS: Temperature however is only 98.7 most recently, but it was 99.8 yesterday. LUNGS: Clear. CARDIAC: Normal S1, normal S2. ABDOMEN: Soft, nontender. EXTREMITIES: There is no edema. SKIN: Flushed, somewhat warm and dry. LABORATORY DATA: Peak troponin 0.396. Creatinine 2.87. He is undergoing dialysis now. ASSESSMENT: 1. Systolic heart failure, appears stable. 2. Increased troponin, likely secondary to demand ischemia, type 2 [id number] myocardial infarction. PLAN: Continue supportive care. No other recommendations at this point. Job ID: [id number]
--- NOTE | 2018-12-03 10:51 | PRG ---
DATE OF SERVICE: 12/03/2018 SUBJECTIVE: Mr. Boo is a 48-year-old white male with ESRD. He was admitted for congestive heart failure. He received two consecutive days of hemodialysis/ultrafiltration. He is undergoing hemodialysis today. We are now attempting about 800 mL to 1 L fluid removal. Examination shows he is nearing euvolemic stage. We are using no heparin. No new complaints. OBJECTIVE: VITAL SIGNS: Blood pressure 139/70, heart rate is 113, respiratory rate 22, pulse ox 93%, and temperature is noted at 98.7. GENERAL: Awake, alert, comfortable, and not in distress. SKIN: Adequate turgor. HEENT: Pale conjunctivae. Anicteric sclerae. NECK: No neck mass. No carotid bruits. No JVD. CHEST: No deformities. LUNGS: Decreased breath sounds. HEART: Normal sinus rhythm. No murmur. No gallops. No rubs. ABDOMEN: Globular. Soft. Nontender. No masses. EXTREMITIES: No edema. MEDICATIONS: Medications of December 03, 2018 were reviewed. LABORATORY DATA: Laboratories of December 03, 2018; white count 4.7, hemoglobin 8.2, potassium 3.8, BUN 27, creatinine 2.87, glucose 96, and calcium 8.4. ASSESSMENT AND PLAN: 1. Congestive heart failure, clinically much improved. Attempting fluid removal only as tolerated by the patient. 2. End-stage renal disease, stable. Continue current Wednesday, , and Wednesday dialysis regimen. Fluid removal as tolerated. No heparin due to the history of chronic thrombocytopenia. 3. Chronic thrombocytopenia, most recent platelets are 34,000, stable. 4. Anemia, continuing weekly Epogen. Job ID: [id number]
--- NOTE | 2018-12-03 11:15 | PRG ---
DATE OF SERVICE: 12/03/2018 SUBJECTIVE: The patient is undergoing dialysis, seems to be doing well. No acute complaints. OBJECTIVE: VITAL SIGNS: Temperature 100.0, pulse 104, blood pressure 125/78, O2 saturation 100%. HEENT: Unremarkable. NECK: No JVD. LUNGS: Clear anteriorly. CARDIAC: S1, S2. Regular. ABDOMEN: Soft. EXTREMITIES: No edema. LABORATORY DATA: White blood cell count 4.7, hematocrit 25.9, and platelet count 34. Sodium 136, potassium 3.8, BUN 27, creatinine 2.8, and glucose 96. ASSESSMENT: 1. Chronic systolic heart failure. 2. Suspected pneumonia/febrile illness. 3. Chronic renal failure. 4. History of atrial fibrillation. PLAN: Plan can be transferred out to telemetry. Continue antibiotics. Continue dialysis. Job ID: [id number]
[2018-12-03] MEDS ORDERED: Heparin 10,000 UNITS/1 ML VIAL ONE (15:00)
--- NOTE | 2018-12-03 17:53 | PDOC.HOSPP ---
- Subjective Encounter Date: 12/03/18 Encounter Time: 11:15 Subjective: Mr. Boo was seen today in follow-up of shortness of breath. He says he is breathing better today. He is currently receiving dialysis. He is asking to eat breakfast, and denies abdominal pain. - Objective Vital Signs & Weight: Vital Signs (12 hours) Temp 12/03/18 14:57 97.0 F L 12/03/18 10:24 100.0 F H 12/03/18 07:10 98.7 F Weight Weight 193 lb 3.2 oz Most Recent Monitor Data Heart Rate from ECG 89 NIBP 118/62 NIBP BP-Mean 80 Respiration from ECG 16 SpO2 98 I&O: 12/02/18 12/03/18 12/04/18 06:59 06:59 06:59 Intake Total 210 1141 Output Total 2100 350 Balance -1890 791 Result Diagrams: 12/03/18 06:10 12/03/18 06:10 Hospitalist ROS - Medication Medications: Active Medications Generic Name Dose Route Start Last Admin Trade Name Freq PRN Reason Stop Dose Admin Acetaminophen 650 mg 12/01/18 20:18 12/03/18 09:33 Tylenol PO 650 mg Q4H PRN Administration Headache/Fever/Mild Pain (1-3) Benzonatate 100 mg 12/03/18 04:06 12/03/18 09:32 Tessalon PO 100 mg TIDPRN PRN Administration Cough Enoxaparin Sodium 40 mg 12/02/18 09:00 12/03/18 09:34 Lovenox SC Not Given 0900 NEPTALI Epoetin Nain-epbx 10,000 unit 12/02/18 18:00 12/02/18 18:16 Retacrit SC 10,000 unit Q7D NEPTALI Administration Fludrocortisone Acetate 0.1 mg 12/03/18 09:00 12/03/18 09:33 Florinef PO 0.1 mg DAILY NEPTALI Administration Piperacillin Sod/Tazobactam 100 mls @ 200 mls/hr 12/02/18 09:00 12/03/18 09: 32 Sod 2.25 gm/ Sodium Chloride IVPB 100 mls Q12HR NEPTALI Administration Megestrol Acetate 800 mg 12/03/18 09:00 12/03/18 09:34 Megace PO 800 mg DAILY NEPTALI Administration Nystatin 0 gm 12/02/18 09:39 12/03/18 09:33 Mycostatin Powder TOP 1 applic BIDPRN PRN Administration Topical Irritations Oxcarbazepine 600 mg 12/02/18 21:00 12/03/18 09:33 Trileptal PO 600 mg BID NEPTALI Administration Sodium Chloride 10 ml 12/02/18 09:00 12/03/18 09:34 Flush - Normal Saline IVF Not Given Q12HR NEPTALI - Exam General Appearance: ill appearing Eye: PERRL, anicteric sclera ENT: normocephalic atraumatic (with temporal wasting) Heart: RRR, no murmur, no gallops, no rubs, normal peripheral pulses Respiratory: CTAB, no wheezes, no rales, no ronchi, normal chest expansion Gastrointestinal: soft, non-tender, non-distended, normal bowel sounds, no palpable masses, no hepatomegaly, no splenomegaly Extremities: no cyanosis, no clubbing, 1+ LE edema (lower extremity edema) Hosp A/P (1) Acute respiratory failure with hypoxemia Code(s): J96.01 - ACUTE RESPIRATORY FAILURE WITH HYPOXIA Status: Acute (2) Fluid overload Code(s): E87.70 - FLUID OVERLOAD, UNSPECIFIED Status: Resolved (3) Antiphospholipid syndrome Code(s): D68.61 - ANTIPHOSPHOLIPID SYNDROME Status: Chronic (4) Atrial fibrillation Code(s): I48.91 - UNSPECIFIED ATRIAL FIBRILLATION Status: Chronic Qualifiers: Atrial fibrillation type: paroxysmal Qualified Code(s): I48.0 - Paroxysmal atrial fibrillation (5) Elevated troponin Code(s): R74.8 - ABNORMAL LEVELS OF OTHER SERUM ENZYMES Status: Chronic (6) End stage renal disease on dialysis Code(s): N18.6 - END STAGE RENAL DISEASE; Z99.2 - DEPENDENCE ON RENAL DIALYSIS Status: Chronic - Plan * Acute respiratory failure- likely due to volume overload.- continue Dialysis as per Nephrology * Empiric antibiotics for possible lung infection * ESRD- stable * Antiphospholipid syndrome with thrombocytopenia- stbale * AFIB- his heart rate is stable- not on anticoagulation due to low platelet count * Severe deconditioning- continue PT/OT * I suspect he will be stable for discharge soon.
[2018-12-03] MEDS ORDERED: Docusate 100 MG CAP PO PRN (18:32)
--- NOTE | 2018-12-03 22:28 | EKG ---
Test Reason : SOB Blood Pressure : / mmHG Vent. Rate : 108 BPM Atrial Rate : 108 BPM P-R Int : 148 ms QRS Dur : 104 ms QT Int : 350 ms P-R-T Axes : 000 -03 106 degrees QTc Int : 469 ms Sinus tachycardia Nonspecific ST and T wave abnormality Left ventricular hypertrophy Abnormal ECG Confirmed by ZACH BOYKIN, ULISES Michaels ([id number]), greeting card editor MAL KHALIL ([id number]) on 12/03/2018 10:27:50 PM Referred By: ZACH Confirmed By:ULISES SERRANO MD
[2018-12-04] MEDS: Benzonatate 100 MG CAP PO PRN ×3 (04:20→22:59)
[2018-12-04] MEDS: OXcarbazepine 300 MG TAB PO SCH ×2 (09:04→20:09)
[2018-12-04] MEDS: Fludrocortisone Acetate 0.1 MG TAB PO SCH (09:04)
[2018-12-04] MEDS: Piperacillin/Tazobactam 2.25 GM in Sodium Chloride 0.9% 100 ML IVPB SCH ×2 (09:04→20:11)
[2018-12-04] MEDS: Megestrol Acetate 800 MG/20 ML UDCUP PO SCH (09:04)
[2018-12-04] MEDS: Nystatin Powder 15 GM BOT TOP PRN ×2 (09:05→20:16)
--- NOTE | 2018-12-04 09:31 | PRG ---
DATE OF SERVICE: 12/04/2018 SUBJECTIVE: Mr. Boo is awake and alert. No complaints. OBJECTIVE: VITAL SIGNS: Blood pressure 106/64, pulse 80. LUNGS: Clear. CARDIAC: Normal S1. Normal S2. ASSESSMENT: 1. End-stage renal disease. 2. Systolic heart failure, stable. 3. Previous atrial fibrillation and flutter. PLAN: Continue current medical regimen. Dr. Jefferson to recheck the patient tomorrow. Job ID: [id number]
[2018-12-04] MEDS: Enoxaparin Sodium 40 MG/0.4 ML SYRINGE SC SCH (09:42)
--- NOTE | 2018-12-04 11:08 | PRG ---
DATE OF SERVICE: 12/04/2018 SUBJECTIVE: Mr. Boo is a 48-year-old white male, followed up by the Renal Service for his ESRD. He received hemodialysis yesterday. Fluid removal was removed, but it was done minimally since the patient is now euvolemic. He was initially admitted for congestive heart failure due to missed dialysis treatments. This morning, he is feeling tired, but no new complaints. No chest pain or shortness of breath. OBJECTIVE: VITAL SIGNS: Blood pressure is noted at 101/59, heart rate 83, respiratory rate 15, and pulse ox 96%. GENERAL: Noted to be sleepy, but arousable and comfortable. SKIN: Adequate turgor. HEENT: Slightly pale conjunctivae. Anicteric sclerae. No neck mass. No carotid bruits. No JVD. CHEST: No deformities. LUNGS: Decreased breath sounds. HEART: Irregular. No murmur. No gallops. No rubs. ABDOMEN: Globular, soft, nontender. No masses. EXTREMITIES: No edema. No deformities. MEDICATIONS: Medications of December 04, 2018, were reviewed. LABORATORY DATA: Laboratories of December 03, 2018, white count 4.7, hemoglobin 8.2. Sodium 136, potassium 3.8, chloride 102, carbon dioxide 24, BUN 27, creatinine 2.87, calcium 8.4. ASSESSMENT AND PLAN: 1. Congestive heart failure, clinically much improved with dialysis. Fluid removal only as tolerated. 2. End-stage renal disease, stable. We will continue current Wednesday, , and Wednesday dialysis regimen. Appears previously mentioned fluid removal as tolerated. Trying to avoid heparin due to the chronic thrombocytopenia. 3. [place] [address] units [place]cu weekly. We will recheck basic metabolic panel and CBC in a.m. Job ID: [id number]
--- NOTE | 2018-12-04 11:58 | PRG ---
DATE OF SERVICE: 12/04/2018 SUBJECTIVE: The patient seems to be doing okay. He does not converse much. OBJECTIVE: VITAL SIGNS: Temperature is 98, pulse 83, blood pressure 101/59, and O2 saturation 96%. HEENT: Unremarkable. NECK: No adenopathy. No JVD. CHEST: Clear. CARDIAC: S1 and S2, regular. ABDOMEN: Soft. EXTREMITIES: No edema. LABORATORY DATA: No labs were done today. ASSESSMENT: 1. Stable pulmonary status. 2. Chronic systolic heart failure. 3. Chronic renal failure. PLAN: He can be transferred out to the floor. Continue dialysis. Job ID: [id number]
--- NOTE | 2018-12-04 12:17 | PDOC.HOSPP ---
- Subjective Encounter Date: 12/04/18 Encounter Time: 10:00 Subjective: Mr. Boo was seen today in follow-up of volume overload. He does not have any ewn complaints. He is breathing comfortably on room air. - Objective Vital Signs & Weight: Vital Signs (12 hours) Temp Pulse Ox 12/04/18 11:30 98.6 F 12/04/18 08:00 100 12/04/18 07:19 98.0 F 12/04/18 04:00 98.4 F Weight Weight 190 lb 7.67 oz Most Recent Monitor Data Heart Rate from ECG 83 NIBP 101/59 NIBP BP-Mean 73 Respiration from ECG 15 SpO2 96 I&O: 12/03/18 12/04/18 12/05/18 06:59 06:59 06:59 Intake Total 1141 1600 Output Total 350 680 Balance 791 920 Result Diagrams: 12/03/18 06:10 12/03/18 06:10 Hospitalist ROS - Medication Medications: Active Medications Generic Name Dose Route Start Last Admin Trade Name Freq PRN Reason Stop Dose Admin Acetaminophen 650 mg 12/01/18 20:18 12/03/18 09:33 Tylenol PO 650 mg Q4H PRN Administration Headache/Fever/Mild Pain (1-3) Benzonatate 100 mg 12/03/18 04:06 12/04/18 09:05 Tessalon PO 100 mg TIDPRN PRN Administration Cough Enoxaparin Sodium 40 mg 12/02/18 09:00 12/04/18 09:42 Lovenox SC Not Given 0900 NEPTALI Epoetin Nain-epbx 10,000 unit 12/02/18 18:00 12/02/18 18:16 Retacrit SC 10,000 unit Q7D NEPTALI Administration Fludrocortisone Acetate 0.1 mg 12/03/18 09:00 12/04/18 09:04 Florinef PO 0.1 mg DAILY NEPTALI Administration Piperacillin Sod/Tazobactam 100 mls @ 200 mls/hr 12/02/18 09:00 12/04/18 09: 04 Sod 2.25 gm/ Sodium Chloride IVPB 100 mls Q12HR NEPTALI Administration Megestrol Acetate 800 mg 12/03/18 09:00 12/04/18 09:04 Megace PO 800 mg DAILY NEPTALI Administration Nystatin 0 gm 12/02/18 09:39 12/04/18 09:05 Mycostatin Powder TOP 1 applic BIDPRN PRN Administration Topical Irritations Oxcarbazepine 600 mg 12/02/18 21:00 12/04/18 09:04 Trileptal PO 600 mg BID NEPTALI Administration Sodium Chloride 10 ml 12/02/18 09:00 12/04/18 09:05 Flush - Normal Saline IVF 10 ml Q12HR NEPTALI Administration - Exam Eye: PERRL Heart: RRR, no murmur, no gallops, no rubs, normal peripheral pulses Respiratory: CTAB, no wheezes, no rales, no ronchi, normal chest expansion Gastrointestinal: soft, non-tender, non-distended, normal bowel sounds, no palpable masses, no hepatomegaly, no splenomegaly Extremities: no cyanosis, no clubbing (trace pedal edema), 1+ LE edema Neurological: CN's grossly intact, normal sensation to touch Hosp A/P (1) Acute respiratory failure with hypoxemia Code(s): J96.01 - ACUTE RESPIRATORY FAILURE WITH HYPOXIA Status: Acute (2) Fluid overload Code(s): E87.70 - FLUID OVERLOAD, UNSPECIFIED Status: Resolved (3) Antiphospholipid syndrome Code(s): D68.61 - ANTIPHOSPHOLIPID SYNDROME Status: Chronic (4) Atrial fibrillation Code(s): I48.91 - UNSPECIFIED ATRIAL FIBRILLATION Status: Chronic Qualifiers: Atrial fibrillation type: paroxysmal Qualified Code(s): I48.0 - Paroxysmal atrial fibrillation (5) Elevated troponin Code(s): R74.8 - ABNORMAL LEVELS OF OTHER SERUM ENZYMES Status: Chronic (6) End stage renal disease on dialysis Code(s): N18.6 - END STAGE RENAL DISEASE; Z99.2 - DEPENDENCE ON RENAL DIALYSIS Status: Chronic - Plan * Acute respiratory failure- improved after dialysis * Empiric antibiotics for possible lung infection * ESRD- stable * Antiphospholipid syndrome with thrombocytopenia- stable- no anticoagulation * AFIB- his heart rate is stable- not on anticoagulation due to low platelet count * Severe deconditioning- continue PT/OT * Possible discharge tomorrow if stable
[2018-12-04] MEDS: Acetaminophen 325 MG TAB PO PRN ×2 (20:08→23:55)
[2018-12-04] MEDS ORDERED: diphenhydrAMINE 25 MG CAP PO PRN (23:10)
[2018-12-05] MEDS: Benzonatate 100 MG CAP PO PRN ×2 (04:30→21:30)
[2018-12-05 06:31] LABS: #Eosinphils 0.2 thou/uL (0.0-0.7); #Lymphocytes 1.4 thou/uL (1.20-3.40); #Monocytes 0.3 thou/uL (0.11-0.59); %Basophils 0.2 % (0.0-1.0); %Eosinophils 3.3 % (0.0-10.0); %Lymphocytes 23.8 % (21.0-51.0); %Monocytes 4.4 % (0.0-10.0); %Neutrophils 68.3 % (42.0-75.0); Hemoglobin 8.5 g/dL (14.0-18.0); Mean Corpuscular HGB CONC 32.7 g/dL (32.0-36.0); Mean Corpuscular Hemoglobin 29.9 pg (27.0-31.0); Mean Corpuscular Volume 91.3 fL (78.0-98.0); Mean Platelet Volume 11.6 fL (7.4-10.4); Platelet Count 32 thou/uL (130-400); RBC Distribution Width 15.1 % (11.5-14.5); Red Blood Cell (RBC) Count 2.85 mill/uL (4.70-6.10); White Blood Cell (WBC) Count 5.8 thou/uL (4.8-10.8)
[2018-12-05 06:46] LABS: Anion Gap 14 mmol/L (10-20); BUN (Urea Nitrogen) 22 mg/dL (8.9-20.6); Calc. Creatinine Clearance 39 mL/min (70-130); Calcium 8.4 mg/dL (7.8-10.44); Carbon Dioxide 24 mmol/L (22-29); Chloride 98 mmol/L (98-107); Estimated GFR-MDRD 23; Glucose 94 mg/dL (70-105); Potassium 3.6 mmol/L (3.5-5.1); Sodium 132 mmol/L (136-145)
[2018-12-05] MEDS: Piperacillin/Tazobactam 2.25 GM in Sodium Chloride 0.9% 100 ML IVPB SCH ×2 (08:43→21:29)
[2018-12-05] MEDS: OXcarbazepine 300 MG TAB PO SCH ×3 (08:43→21:30)
[2018-12-05] MEDS: Megestrol Acetate 800 MG/20 ML UDCUP PO SCH ×2 (08:43→08:50)
[2018-12-05] MEDS: Fludrocortisone Acetate 0.1 MG TAB PO SCH ×2 (08:43→08:49)
[2018-12-05] MEDS: Enoxaparin Sodium 40 MG/0.4 ML SYRINGE SC SCH (08:47)
--- NOTE | 2018-12-05 09:35 | PRG ---
DATE OF SERVICE: 12/05/2018 SERVICE: Renal Medicine. SUBJECTIVE: Mr. Boo is a 48-year-old white male, followed up for his ESRD. He is complaining of mild shortness of breath. I offered him dialysis today, he declined. He only wants to take his cough medication. No complaints of chest pain. OBJECTIVE: VITAL SIGNS: Blood pressure 128/73, heart rate 104, respiratory rate 17, pulse ox 93%, and temperature 97.6. GENERAL: Awake, alert, supine, comfortable, not in overt distress. SKIN: Adequate turgor. HEENT: Pinkish conjunctivae. Anicteric sclerae. NECK: No neck mass. No carotid bruits. No JVD. CHEST: No deformities. LUNGS: Decreased breath sounds. HEART: Normal sinus rhythm. No murmurs. No gallops. No rubs. ABDOMEN: Globular, soft, and nontender. No masses. EXTREMITIES: No edema. No deformities. MEDICATIONS: Medications of December 05, 2018, reviewed. LABORATORY DATA: Laboratories of December 05, 2018: White count 5.8, hemoglobin 8.5, sodium 132, potassium 3.6, chloride 98, carbon dioxide 24, BUN 22, creatinine 2.93, glucose 94, and calcium 8.4. ASSESSMENT AND PLAN: 1. End-stage renal disease, stable. We will continue current 3 times a week hemodialysis. Fluid removal only as tolerated by the patient. 2. Anemia. Continuing weekly Epogen. PRN blood transfusion. 3. Status post congestive heart failure - the patient has significant fluid removal with previous dialysis. Again, fluid removal only as tolerated with dialysis. I did offer this patient an extra dialysis today, he declined. Job ID: [id number]
[2018-12-05] MEDS ORDERED: guaiFENesin/Codeine Phosphate 200 mg/20 mg 10 ml UD Cup PO SCH (10:00)
[2018-12-05] MEDS ORDERED: ISOVUE-370 76%-LOCM 1 ML ONE (10:49)
[2018-12-05] MEDS ORDERED: Lorazepam 0.5 MG TAB PO PRN (11:43)
[2018-12-05] MEDS ORDERED: Morphine 2 MG/ML SYRINGE SLOW IVP PRN (12:11)
[2018-12-05 12:29] LABS: Actual Bicarbonate (HCO3a) 22.2 mEq/L (22-28); Base Excess (BEa) 0.2 mEq/L (-2.0 to +3.0); CO2 Tension 27.7 mmHg (35.0-45.0); Calcium, Ionized 1.09 mmol/L (1.12-1.30); Carboxyhemoglobin (COHb) 0.9 gm% (0.0-3.0); Hemoglobin (Hb) 10.5 g/dL (14.0-18.0); O2 Tension (PaO2) 49.4 mmHg (80.0-100.0); pH, Arterial 7.52 (7.35-7.45)
[2018-12-05 12:30] LABS: ALV-art Gradient 229.695 (0-20); Puncture Site RRA
--- NOTE | 2018-12-05 13:20 | CT ---
CT ANGIOGRAM OF THE CHEST: HISTORY: Shortness of breath. Heart catheterization. Tachycardia. Evaluate for pulmonary artery embolism. COMPARISON: 12/12/2014. TECHNIQUE: CT angiogram of the chest is performed in the axial plane. Three-dimensional reformatted images are s ubmitted for interpretation. FINDINGS: Mediastinum: Limited evaluation due to timing of contrast bolus. There does appear to be an enlarged right paratracheal lymph node measuring 1.8 x 2.2 cm. Possible enlarged subcarinal lymph node measuring 2.6 x 2.1 cm. Upper normal prevascular lymph nodes. Heart: Mild enlargement. No significant pericardial fluid. Reflux of contrast into the inferior vena cava suggesting right heart failure. Aorta: No aneurysm or dissection Upper solid abdominal viscera: Atrophic left kidney with nonspecific beam attenuation artifact in the left perinephric space. Grossly the visualized upper solid organs are unremarkable. Mild splenomegaly. Trachea and central bronchi: Patent Pleural spaces: Bilateral pleural effusions, small left and moderate right. Lung parenchyma: Diffuse groundglass opacities due to edema, aspiration or pneumonia. Pneumothorax: None Osseous structures: No lytic or blastic lesions Pulmonary arteries:Limited evaluation of the pulmonary arterial system due to poor timing of bolus. N o obvious central pulmonary artery embolism. Limited evaluation of the lobar, segmental and subsegmental arteries. IMPRESSION: 1. Limited evaluation of the pulmonary arterial system due to timing of contrast bolus. No obvious central pulmonary artery embolism. 2. Diffuse groundglass opacities and bilateral pleural effusions. Correlate for heart failure/volum e overload. Aspiration and/or pneumonia cannot be excluded. Transcribed Date/Time: 12/05/2018 1:27 PM
--- NOTE | 2018-12-05 15:31 | PRG ---
DATE OF SERVICE: 12/05/2018 SUBJECTIVE: Hans Boo is events have been reviewed. He had a CT pulmonary angiogram today. This still shows diffuse bilateral patchy alveolar infiltrates. He apparently declined dialysis today. OBJECTIVE: VITAL SIGNS: Blood pressure 126/98, heart rate 120, respiratory rates in the low 30s Lungs crackles bilaterally. HEART: Regular rhythm. ABDOMEN: Soft. IMPRESSION AND PLAN: 1. Volume overload. 2. Pulmonary edema. I doubt this is pulmonary hemorrhage. 3. Weakness and deconditioning. He looks much weaker than the last time I saw him in the hospital. His prognosis is obviously quite guarded. Job ID: [id number] MTDD
--- NOTE | 2018-12-05 17:56 | PDOC.HOSPP ---
- Subjective Encounter Date: 12/05/18 Encounter Time: 11:00 Subjective: Ben Boo was seen today in follow-up of respiratory failure. He became very dyspneic earlier, and tachypneic. A CTA of the chest was done, and was negative for PE. He is beginning to become more relaxed and his Oxygen saturation has improved. - Objective Vital Signs & Weight: Vital Signs (12 hours) Temp Pulse Ox 12/05/18 15:47 95 12/05/18 15:30 100.0 F H 12/05/18 11:14 98.3 F 12/05/18 08:00 90 L 12/05/18 07:16 97.6 F Weight Weight 195 lb 12.328 oz Most Recent Monitor Data Heart Rate from ECG 99 NIBP 126/98 NIBP BP-Mean 107 Respiration from ECG 24 SpO2 89 I&O: 12/04/18 12/05/18 12/06/18 06:59 06:59 06:59 Intake Total 1600 1500 Output Total 680 350 Balance 920 1150 Result Diagrams: 12/05/18 06:06 12/05/18 06:06 Hospitalist ROS - Medication Medications: Active Medications Generic Name Dose Route Start Last Admin Trade Name Freq PRN Reason Stop Dose Admin Acetaminophen 650 mg 12/01/18 20:18 12/04/18 23:55 Tylenol PO 650 mg Q4H PRN Administration Headache/Fever/Mild Pain (1-3) Benzonatate 100 mg 12/03/18 04:06 12/05/18 04:30 Tessalon PO 100 mg TIDPRN PRN Administration Cough Diphenhydramine HCl 25 mg 12/04/18 23:10 12/04/18 23:53 Benadryl PO 25 mg Q6H PRN Administration Itching & Insomnia Epoetin Nain-epbx 10,000 unit 12/02/18 18:00 12/02/18 18:16 Retacrit SC 10,000 unit Q7D NEPTALI Administration Fludrocortisone Acetate 0.1 mg 12/03/18 09:00 12/05/18 08:49 Florinef PO Not Given DAILY NEPTALI Piperacillin Sod/Tazobactam 100 mls @ 200 mls/hr 12/02/18 09:00 12/05/18 08: 43 Sod 2.25 gm/ Sodium Chloride IVPB 100 mls Q12HR NEPTALI Administration Lorazepam 0.5 mg 12/05/18 11:43 12/05/18 14:48 Ativan PO 0.5 mg Q4H PRN Administration Anxiety Megestrol Acetate 800 mg 12/03/18 09:00 12/05/18 08:50 Megace PO Not Given DAILY NEPTALI Morphine Sulfate 2 mg 12/05/18 12:11 12/05/18 12:13 Morphine SLOW IVP 2 mg Q4H PRN Administration Moderate to Severe Pain (6-10) Nystatin 0 gm 12/02/18 09:39 12/04/18 20:16 Mycostatin Powder TOP 1 applic BIDPRN PRN Administration Topical Irritations Oxcarbazepine 600 mg 12/02/18 21:00 12/05/18 08:49 Trileptal PO Not Given BID NEPTALI Sodium Chloride 10 ml 12/02/18 09:00 12/05/18 08:48 Flush - Normal Saline IVF 10 ml Q12HR NEPTALI Administration - Exam Eye: PERRL, anicteric sclera Heart: RRR (tachycardic), no murmur, no gallops, normal peripheral pulses Respiratory: CTAB (with exception of some fine rales at the bases) Gastrointestinal: soft, non-tender, non-distended, normal bowel sounds Extremities: no cyanosis, no clubbing, 1+ LE edema Hosp A/P (1) Acute respiratory failure with hypoxemia Code(s): J96.01 - ACUTE RESPIRATORY FAILURE WITH HYPOXIA Status: Acute (2) Fluid overload Code(s): E87.70 - FLUID OVERLOAD, UNSPECIFIED Status: Resolved (3) Antiphospholipid syndrome Code(s): D68.61 - ANTIPHOSPHOLIPID SYNDROME Status: Chronic (4) Atrial fibrillation Code(s): I48.91 - UNSPECIFIED ATRIAL FIBRILLATION Status: Chronic Qualifiers: Qualified Code(s): I48.0 - Paroxysmal atrial fibrillation (5) Elevated troponin Code(s): R74.8 - ABNORMAL LEVELS OF OTHER SERUM ENZYMES Status: Chronic (6) End stage renal disease on dialysis Code(s): N18.6 - END STAGE RENAL DISEASE; Z99.2 - DEPENDENCE ON RENAL DIALYSIS Status: Chronic - Plan * Acute respiratory failure- he is a bit volume overloaded once again- continue to remove fluid with dialysis * Empiric antibiotics for possible lung infection * ESRD- stable * Antiphospholipid syndrome with thrombocytopenia- stable- no anticoagulation * AFIB- his heart rate is stable- not on anticoagulation due to low platelet count, frequent falls, and history of GI bleed * Severe deconditioning- continue PT/OT * Continue to monitor in the hospital
--- NOTE | 2018-12-05 17:59 | PDOC.CPN ---
- Subjective Date: 12/05/18 Time: 13:00 Interval history: The pt was seen and examined. No overnight events. The pt was confused at this moment. PO2 on ABG was low. DNR. - Objective Allergies/Adverse Reactions: Allergies Allergy/AdvReac Type Severity Reaction Status Date / Time phenytoin sodium Allergy Severe Emesis Verified 12/01/18 22:26 [From Dilantin] phenytoin sodium extended Allergy Severe Emesis Verified 12/01/18 22:26 [From Dilantin] midazolam HCl [From Versed] Allergy Intermediate swelling Verified 12/01/18 22: 26 amiodarone AdvReac N/V Verified 12/01/18 22:26 Visit Medications: Current Medications Acetaminophen (Tylenol) 650 mg PO Q4H PRN PRN Reason: Headache/Fever/Mild Pain (1-3) Last Admin: 12/04/18 23:55 Dose: 650 mg Acetaminophen (Tylenol) 650 mg AK Q4H PRN PRN Reason: Headache/Fever/Mild Pain (1-3) Albuterol/Ipratropium (Duoneb) 3 ml NEB [id number] PRN PRN Reason: SOB &/or Wheezing Benzonatate (Tessalon) 100 mg PO TIDPRN PRN PRN Reason: Cough Last Admin: 12/05/18 04:30 Dose: 100 mg Diphenhydramine HCl (Benadryl) 25 mg PO Q6H PRN PRN Reason: Itching & Insomnia Last Admin: 12/04/18 23:53 Dose: 25 mg Epoetin Nain-epbx (Retacrit) 10,000 unit SC Q7D [facility] Last Admin: 12/02/18 18:16 Dose: 10,000 unit Fludrocortisone Acetate (Florinef) 0.1 mg PO DAILY [facility] Last Admin: 12/05/18 08:49 Dose: Not Given Vancomycin HCl 1.25 gm/ Sodium (Chloride) 250 mls @ 166.667 mls/hr IVPB WILLCALL NEPTALI Vancomycin HCl 1 gm/ Device 200 mls @ 200 mls/hr IVPB WILLCALL NEPTALI Vancomycin HCl 750 mg/ Sodium (Chloride) 250 mls @ 250 mls/hr IVPB WILLCALL NEPTALI Vancomycin HCl 500 mg/ Sodium (Chloride) 100 mls @ 100 mls/hr IVPB WILLCALL NEPTALI Piperacillin Sod/Tazobactam (Sod 2.25 gm/ Sodium Chloride) 100 mls @ 200 mls/ hr IVPB Q12HR [facility] Last Admin: 12/05/18 08:43 Dose: 100 mls Lorazepam (Ativan) 0.5 mg PO Q4H PRN PRN Reason: Anxiety Last Admin: 12/05/18 14:48 Dose: 0.5 mg Megestrol Acetate (Megace) 800 mg PO DAILY [facility] Last Admin: 12/05/18 08:50 Dose: Not Given Miscellaneous Medication (Pharmacy To Dose) 1 each IVPB PRN PRN PRN Reason: Pharmacy to dose Morphine Sulfate (Morphine) 2 mg SLOW IVP Q4H PRN PRN Reason: Moderate to Severe Pain (6-10) Last Admin: 12/05/18 12:13 Dose: 2 mg Hold Vancomycin For (Level >20) 0 each FS .AT DIALYSIS [facility] Nystatin (Mycostatin Powder) 0 gm TOP BIDPRN PRN PRN Reason: Topical Irritations Last Admin: 12/04/18 20:16 Dose: 1 applic Ondansetron HCl (Zofran Odt) 4 mg PO Q6H PRN PRN Reason: Nausea/Vomiting Ondansetron HCl (Zofran) 4 mg IVP Q6H PRN PRN Reason: Nausea/Vomiting Oxcarbazepine (Trileptal) 600 mg PO BID [facility] Last Admin: 12/05/18 08:49 Dose: Not Given Sodium Chloride (Flush - Normal Saline) 10 ml IVF Q12HR [facility] Last Admin: 12/05/18 08:48 Dose: 10 ml Sodium Chloride (Flush - Normal Saline) 10 ml IVF PRN PRN PRN Reason: Saline Flush Vital Signs & Weight: Vital Signs Temp Pulse Ox 12/05/18 15:47 95 12/05/18 15:30 100.0 F H 12/05/18 11:14 98.3 F 12/05/18 08:00 90 L 12/05/18 07:16 97.6 F Weight 195 lb 12.328 oz - Physical Exam General: no apparent distress, other (confused) Cardiac: regular rate and rhythm Lungs: decreased breath sounds Skin: mottled (BLE) Musculoskeletal: decreased range of motion - Labs Result Diagrams: 12/05/18 06:06 12/05/18 06:06 Troponin/CKMB CK-MB (CK-2) 1.0 ng/mL (0-6.6) 12/01/18 18:08 Troponin I 0.396 ng/mL (< 0.028) H* 12/01/18 20:02 - Telemetry Sinus rhythms and dysrhythmias: sinus tachycardia (100-110s) - Assessment/Plan Assessment/Plan: 1. Acute on Chronic combined HF - stable with RA after HD; Will resume Coreg 3.125mg BID; not on DAVID/ARB due to hx of CKD 2. Afib with RVR - Remains in ST; will resume Coreg from tonight; no OAC due to hx of thrombocytopenia 3. ESRD - managed by nephrology service 4. Non-ischemic CMY with s/p BiV AICD in 03/2018 5. Antiphospolipid syndrome/chronic thrombocytopenia 6. seizure 7. Anemia MAR reviewed * DNR Pt. seen and eval by me. I agree with the A/P by theNP. His only c/o today is a cough and he is requesting something for the cough. He is verm deconditioned and weak. Chest clear. RRR. No edema.
[2018-12-06] MEDS ORDERED: Haloperidol Lactate 5 MG/ML VIAL IM PRN (01:28)
[2018-12-06] MEDS: Acetaminophen 325 MG TAB PO PRN (08:00)
[2018-12-06] MEDS: Carvedilol 3.125 MG TAB PO SCH ×2 (08:59→17:13)
[2018-12-06] MEDS: Fludrocortisone Acetate 0.1 MG TAB PO SCH (09:00)
[2018-12-06] MEDS: Piperacillin/Tazobactam 2.25 GM in Sodium Chloride 0.9% 100 ML IVPB SCH (09:00)
[2018-12-06] MEDS: Megestrol Acetate 800 MG/20 ML UDCUP PO SCH (09:00)
[2018-12-06] MEDS: OXcarbazepine 300 MG TAB PO SCH (09:00)
--- NOTE | 2018-12-06 09:42 | PDOC.CPN ---
- Subjective Date: 12/06/18 Time: 09:41 Interval history: The pt seen and examined. No overnight events. The pt is confused and tried getting up to chair without any supports. The pt would like to go home. He refused HD today. - Objective Allergies/Adverse Reactions: Allergies Allergy/AdvReac Type Severity Reaction Status Date / Time phenytoin sodium Allergy Severe Emesis Verified 12/01/18 22:26 [From Dilantin] phenytoin sodium extended Allergy Severe Emesis Verified 12/01/18 22:26 [From Dilantin] midazolam HCl [From Versed] Allergy Intermediate swelling Verified 12/01/18 22: 26 amiodarone AdvReac N/V Verified 12/01/18 22:26 Visit Medications: Current Medications Acetaminophen (Tylenol) 650 mg PO Q4H PRN PRN Reason: Headache/Fever/Mild Pain (1-3) Last Admin: 12/06/18 08:00 Dose: 650 mg Acetaminophen (Tylenol) 650 mg CO Q4H PRN PRN Reason: Headache/Fever/Mild Pain (1-3) Albuterol/Ipratropium (Duoneb) 3 ml NEB [id number] PRN PRN Reason: SOB &/or Wheezing Benzonatate (Tessalon) 100 mg PO TIDPRN PRN PRN Reason: Cough Last Admin: 12/05/18 21:30 Dose: 100 mg Carvedilol (Coreg) 3.125 mg PO BID-WM [facility] Last Admin: 12/06/18 08:59 Dose: 3.125 mg Diphenhydramine HCl (Benadryl) 25 mg PO Q6H PRN PRN Reason: Itching & Insomnia Last Admin: 12/04/18 23:53 Dose: 25 mg Epoetin Nain-epbx (Retacrit) 10,000 unit SC Q7D [facility] Last Admin: 12/02/18 18:16 Dose: 10,000 unit Fludrocortisone Acetate (Florinef) 0.1 mg PO DAILY [facility] Last Admin: 12/06/18 09:00 Dose: 0.1 mg Haloperidol Lactate (Haldol) 2.5 mg IM ONE PRN PRN Reason: Agitation Stop: 12/07/18 01:29 Vancomycin HCl 1.25 gm/ Sodium (Chloride) 250 mls @ 166.667 mls/hr IVPB WILLCALL [facility] Vancomycin HCl 1 gm/ Device 200 mls @ 200 mls/hr IVPB WILLCALL NEPTALI Vancomycin HCl 750 mg/ Sodium (Chloride) 250 mls @ 250 mls/hr IVPB WILLCALL [facility] Vancomycin HCl 500 mg/ Sodium (Chloride) 100 mls @ 100 mls/hr IVPB WILLCALL [facility] Piperacillin Sod/Tazobactam (Sod 2.25 gm/ Sodium Chloride) 100 mls @ 200 mls/ hr IVPB Q12HR [facility] Last Admin: 12/06/18 09:00 Dose: 100 mls Lorazepam (Ativan) 0.5 mg PO Q4H PRN PRN Reason: Anxiety Last Admin: 12/05/18 14:48 Dose: 0.5 mg Megestrol Acetate (Megace) 800 mg PO DAILY [facility] Last Admin: 12/06/18 09:00 Dose: 800 mg Miscellaneous Medication (Pharmacy To Dose) 1 each IVPB PRN PRN PRN Reason: Pharmacy to dose Morphine Sulfate (Morphine) 2 mg SLOW IVP Q4H PRN PRN Reason: Moderate to Severe Pain (6-10) Last Admin: 12/05/18 12:13 Dose: 2 mg Hold Vancomycin For (Level >20) 0 each FS .AT DIALYSIS [facility] Nystatin (Mycostatin Powder) 0 gm TOP BIDPRN PRN PRN Reason: Topical Irritations Last Admin: 12/04/18 20:16 Dose: 1 applic Ondansetron HCl (Zofran Odt) 4 mg PO Q6H PRN PRN Reason: Nausea/Vomiting Ondansetron HCl (Zofran) 4 mg IVP Q6H PRN PRN Reason: Nausea/Vomiting Oxcarbazepine (Trileptal) 600 mg PO BID [facility] Last Admin: 12/06/18 09:00 Dose: 600 mg Sodium Chloride (Flush - Normal Saline) 10 ml IVF Q12HR [facility] Last Admin: 12/06/18 09:04 Dose: 10 ml Sodium Chloride (Flush - Normal Saline) 10 ml IVF PRN PRN PRN Reason: Saline Flush Vital Signs & Weight: Vital Signs Temp Pulse Resp BP Pulse Ox 12/06/18 07:46 97.9 F 101 H 20 118/69 91 L 12/06/18 03:49 97.4 F L 84 16 114/72 100 12/06/18 00:10 98.7 F 12/05/18 23:50 98.6 F 87 16 109/65 94 L Weight 195 lb 12.328 oz - Physical Exam General: other (confused) Neck: supple neck Cardiac: regular rate and rhythm, S1/S2 Lungs: decreased breath sounds Skin: brusing Musculoskeletal: decreased range of motion - Labs Result Diagrams: 12/05/18 06:06 12/05/18 06:06 Troponin/CKMB CK-MB (CK-2) 1.0 ng/mL (0-6.6) 12/01/18 18:08 Troponin I 0.396 ng/mL (< 0.028) H* 12/01/18 20:02 - Telemetry Sinus rhythms and dysrhythmias: sinus rhythm (HR 70-80s) - Assessment/Plan Assessment/Plan: 1. Acute on Chronic combined HF - stable with RA; the pt refused to have HD today; On Coreg 3.125mg BID; not on DAVID/ARB due to hx of CKD 2. Afib with RVR - Remains in SR with Coreg 3.125mg BID; no OAC due to hx of thrombocytopenia 3. ESRD - managed by nephrology service 4. Non-ischemic CMY with s/p BiV AICD in 03/2018 5. Antiphospolipid syndrome/chronic thrombocytopenia 6. seizure 7. Anemia MAR reviewed * DNR Pt. seen and eval. by me. 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 He is more lethargic today, very weak. No complaints. chest clear, RRR, no edema. He has multiple medical problems and appears to be approaching end stage.
[2018-12-06 09:49] LABS: Vancomycin, Random 10.6 ug/mL (See Comment)
--- NOTE | 2018-12-06 09:51 | PRG ---
DATE OF SERVICE: 12/06/2018 SUBJECTIVE: Mr. Boo is a 48-year-old white male with ESRD, followed up by the [facility] for his maintenance hemodialysis. He underwent extra dialysis yesterday due to complaints of shortness of breath. However, the patient became very agitated. Treatment was shortened to 1 hour. 800 mL of fluid was removed. He became very agitated last night. This morning, he is less agitated, but still confused. Denies any new complaints. OBJECTIVE: VITAL SIGNS: Blood pressure is 118/69, heart rate 101, respiratory rate 20, pulse ox 91%, temperature 97.9. GENERAL: Awake, confused, but not in overt distress. SKIN: Adequate turgor. HEENT: Pale conjunctivae. Anicteric sclerae. NECK: No neck mass. No carotid bruits. No JVD. CHEST: No deformities. LUNGS: Clear breath sounds heard. HEART: Normal sinus rhythm. No murmur. No gallops. No rubs. ABDOMEN: Globular, soft, and nontender. No masses. EXTREMITIES: No edema. No deformities. LABORATORY DATA: CT angiogram of the chest showed no obvious central pulmonary artery embolism. He has diffuse ground-glass opacities/pleural effusion. ASSESSMENT AND PLAN: 1. Shortness of breath - secondary to volume overload. We will proceed with hemodialysis. Fluid removal only as tolerated. 2. Anemia. Continuing current weekly Epogen of 10,000 units subcutaneously q.week. 3. Chronic thrombocytopenia. Supportive care. We will recheck another CBC and basic metabolic panel in a.m. Job ID: [id number]
[2018-12-06 12:35] VITALS: TEMP 98
--- NOTE | 2018-12-06 13:24 | PDOC.HOSPP ---
- Subjective Encounter Date: 12/06/18 Encounter Time: 13:21 Subjective: Mr. Boo was seen today in follow-up of respiratory failure. He did not want dialysis this morning. He denies chest pain. He is breathing better today. - Objective Vital Signs & Weight: Vital Signs (12 hours) Temp Pulse Resp BP Pulse Ox 12/06/18 12:57 98/59 L 12/06/18 12:00 98.0 F 65 16 83/53 L 99 12/06/18 07:46 97.9 F 101 H 20 118/69 91 L 12/06/18 03:49 97.4 F L 84 16 114/72 100 Weight Weight 195 lb 12.328 oz Most Recent Monitor Data Heart Rate from ECG 94 NIBP 117/76 NIBP BP-Mean 89 Respiration from ECG 25 SpO2 100 I&O: 12/05/18 12/06/18 12/07/18 06:59 06:59 06:59 Intake Total 1500 120 Output Total 350 Balance 1150 120 Result Diagrams: 12/05/18 06:06 12/05/18 06:06 Hospitalist ROS - Medication Medications: Active Medications Generic Name Dose Route Start Last Admin Trade Name Freq PRN Reason Stop Dose Admin Acetaminophen 650 mg 12/01/18 20:18 12/06/18 08:00 Tylenol PO 650 mg Q4H PRN Administration Headache/Fever/Mild Pain (1-3) Benzonatate 100 mg 12/03/18 04:06 12/05/18 21:30 Tessalon PO 100 mg TIDPRN PRN Administration Cough Carvedilol 3.125 mg 12/06/18 08:00 12/06/18 08:59 Coreg PO 3.125 mg BID-WM NEPTALI Administration Diphenhydramine HCl 25 mg 12/04/18 23:10 12/04/18 23:53 Benadryl PO 25 mg Q6H PRN Administration Itching & Insomnia Epoetin Nain-epbx 10,000 unit 12/02/18 18:00 12/02/18 18:16 Retacrit SC 10,000 unit Q7D NEPTALI Administration Fludrocortisone Acetate 0.1 mg 12/03/18 09:00 12/06/18 09:00 Florinef PO 0.1 mg DAILY NEPTALI Administration Piperacillin Sod/Tazobactam 100 mls @ 200 mls/hr 12/02/18 09:00 12/06/18 09: 00 Sod 2.25 gm/ Sodium Chloride IVPB 100 mls Q12HR NEPTALI Administration Lorazepam 0.5 mg 12/05/18 11:43 12/05/18 14:48 Ativan PO 0.5 mg Q4H PRN Administration Anxiety Megestrol Acetate 800 mg 12/03/18 09:00 12/06/18 09:00 Megace PO 800 mg DAILY NEPTALI Administration Morphine Sulfate 2 mg 12/05/18 12:11 12/05/18 12:13 Morphine SLOW IVP 2 mg Q4H PRN Administration Moderate to Severe Pain (6-10) Nystatin 0 gm 12/02/18 09:39 12/04/18 20:16 Mycostatin Powder TOP 1 applic BIDPRN PRN Administration Topical Irritations Oxcarbazepine 600 mg 12/02/18 21:00 12/06/18 09:00 Trileptal PO 600 mg BID NEPTALI Administration Sodium Chloride 10 ml 12/02/18 09:00 12/06/18 09:04 Flush - Normal Saline IVF 10 ml Q12HR NEPTALI Administration - Exam Eye: PERRL, anicteric sclera Heart: RRR, no murmur, no gallops, no rubs, normal peripheral pulses Respiratory: CTAB, no wheezes, no rales, no ronchi, normal chest expansion Gastrointestinal: soft, non-tender, non-distended, normal bowel sounds, no palpable masses Extremities: 1+ LE edema Hosp A/P (1) Acute respiratory failure with hypoxemia Code(s): J96.01 - ACUTE RESPIRATORY FAILURE WITH HYPOXIA Status: Acute (2) Fluid overload Code(s): E87.70 - FLUID OVERLOAD, UNSPECIFIED Status: Resolved (3) Antiphospholipid syndrome Code(s): D68.61 - ANTIPHOSPHOLIPID SYNDROME Status: Chronic (4) Atrial fibrillation Code(s): I48.91 - UNSPECIFIED ATRIAL FIBRILLATION Status: Chronic Qualifiers: Atrial fibrillation type: paroxysmal Qualified Code(s): I48.0 - Paroxysmal atrial fibrillation (5) Elevated troponin Code(s): R74.8 - ABNORMAL LEVELS OF OTHER SERUM ENZYMES Status: Chronic (6) End stage renal disease on dialysis Code(s): N18.6 - END STAGE RENAL DISEASE; Z99.2 - DEPENDENCE ON RENAL DIALYSIS Status: Chronic - Plan * Acute respiratory failure- stable * ESRD- stable * Antiphospholipid syndrome with thrombocytopenia- stable- no anticoagulation * I spoke with the patient's who is at the bedside, and she is spoken with the team from [facility] and has decided this is the best option for her going forward * Will discharge today in home Hospice once arranged
[2018-12-06] MEDS ORDERED: Heparin 10,000 UNITS/ 10 ML VIAL ONE (15:28)
[2018-12-06 15:44] VITALS: BP 103/65
--- NOTE | 2018-12-07 05:39 | DIS ---
DATE OF ADMISSION: 12/01/2018 DATE OF DISCHARGE: 12/06/2018 PRIMARY CARE PHYSICIAN: Dr. Benavides. DISCHARGE DISPOSITION: Home with home hospice. DISCHARGE DIAGNOSES: 1. Amzgs-cl-nheeahz respiratory failure with hypoxemia. 2. Volume overload. 3. End-stage renal disease, on hemodialysis. 4. Antiphospholipid syndrome. 5. History of bilateral deep venous thromboses. 6. History of pulmonary embolism. 7. Hypertension. 8. Chronic systolic heart failure. 9. Status post defibrillator placement. DISCHARGE MEDICATIONS: Include: 1. Trazodone 25 mg at bedtime p.r.n. 2. Zoloft 50 mg daily. 3. MiraLAX 17 g daily. 4. Zofran 4 mg q.6 as needed. 5. Movantik 12.5 mg daily. 6. Theragran-M 1 tablet daily. 7. Melatonin 6 mg at bedtime. 8. Megace 800 mg daily. 9. Docusate sodium 100 mg twice daily. 10. Digoxin 0.125 mg Wednesday, , Wednesday. 11. Carvedilol 3.125 mg twice daily. 12. Tylenol 650 mg q.4 hours as needed. 13. Trileptal 600 mg twice daily. 14. Florinef 0.1 mg daily. IMAGING: During the hospital stay, the patient had a CT scan of the abdomen and pelvis, showing no evidence of any acute intraabdominal or pelvic abnormality, stable bilateral pulmonary infiltrates and a persistent, but much smaller fluid collection adjacent to the left kidney. The patient also had a CT angiogram of the chest, which was limited due to the timing of the contrast bolus, but no obvious central pulmonary embolism. There was some diffuse ground-glass opacities and bilateral pleural effusions. CODE STATUS: DNAR. ALLERGIES: TO PHENYTOIN, MIDAZOLAM AND AMIODARONE. HOSPITAL COURSE: Mr. Boo is a pleasant 48-year-old gentleman who presented to the emergency room with shortness of breath. He was found to be mildly volume overloaded. He was admitted and placed on BiPAP initially. He was able to be weaned off BiPAP and underwent hemodialysis to remove additional fluid. He had periodic episodes of dyspnea during his hospital stay. One event was very severe and a CTA was done to rule out PE. Without any additional treatment his symptoms actually resolved after being given symptomatic relief with morphine and medicines for anxiety. It was becoming apparent that his overall prognosis is extremely poor and he is unlikely to improve due to the severe antiphospholipid syndrome, chronic thrombocytopenia which makes it very difficult to pursue anticoagulation. He has chronic atrial fibrillation and chronic systolic heart failure as well as end-stage renal disease. For these reasons, the patient's made the decision to discontinue active care and for the patient to be discharged home on home hospice. Job ID: [id number]
--- NOTE | 2018-12-08 09:25 | PQF ---
[employer] Assistance Representative Crystal Reports Winform ViewerJOEL HUTCHINSON JR BEVERLY ROYAL MD [id number] [facility]- B06 [id number] CLINICAL DOCUMENTATION CLARIFICATION FORM: POST DISCHARGE Addendum to original discharge summary date: ____ Late entry note date: __ DATE: 12/08/2018 ATTN:BEVERLY ROYAL MD Please exercise your independent, professional judgment in responding to the clarification form. Clinical indicators are provided on the bottom of this form for your review Please check appropriate box(s): Conflicting documentation was noted in the Medical Record, please clarify if patient is being treated/monitored for: [ ] Chronic systolic heart failure [ X ] Acute on chronic heart failure- systolic [ ] Other diagnosis ___Volume overload [ ] Unable to determine For continuity of documentation, please document condition throughout progress notes and discharge summary. Thank You. CLINICAL INDICATORS - SIGNS / SYMPTOMS/ LABS -Chronic systolic heart failure- , 12/06, BEVERLY ROYAL MD - Volume overload- DS, 12/06, BEVERLY ROYAL MD - Some diffuse ground glass opacities and bilateral pleural effusions- DS, 12/06 , BEVERLY ROYAL MD - Acute on chronic combined HF-Wanda Jefferson MD, 12/06 - BNP: 4073.8H- Laboratory, 12/01 RISK FACTORS - ESRD on hemodialysis- DS, 12/06, BEVERLY ROYAL MD - PMH: Hypertension- DS, 12/06, BEVERLY ROYAL MD - s/p defibrillator placement - DS, 12/06, BEVERLY ROYAL MD TREATMENT - on Coreg- Cardiology PN, 12/06, Wanda Jefferson MD, 12/06 (This form is maintained as a part of the permanent medical record) 2014 [employer]. All Rights Reserved [employer] Assistance Representative Crystal Reports Winform Viewerkicarlos alberto Beauchamp [ not provided] [not provided] MTDD
--- NOTE | 2018-12-19 00:40 | PQF ---
[employer] Hog Worker Crystal Reports Winform ViewerROBJOEL ROMEO JR ANTWON PRICE MD [id number] [facility]- B06 [id number] CLINICAL DOCUMENTATION CLARIFICATION FORM: POST DISCHARGE Addendum to original discharge summary date: ____ Late entry note date: __ DATE: 12/19/2018 ATTN: ANTWON PRICE MD Please exercise your independent, professional judgment in responding to the clarification form. Clinical indicators are provided on the bottom of this form for your review Please check appropriate box(s) to clarify if the following diagnosis has been ruled in or ruled out: Type 2 NSTEMI [ X ] Ruled in diagnosis [X ] Continue to treat [ ] Resolved [ ] Ruled out diagnosis [ ] Cannot rule out diagnosis [ ] Other diagnosis [ ] Unable to determine For continuity of documentation, please document condition throughout progress notes and discharge summary. Thank You. CLINICAL INDICATORS - SIGNS / SYMPTOMS / LABS - Cardiac-most likely type 2 NSTEMI- Hospital PN, 12/04, Bruce Briggs MD - Elevated Troponin- Hospital PN, 12/04, Bruce Briggs MD - Troponin I-0.302H, 0.396 H- Laboratory, 12/01 - positive troponin of 0.3, this is likely sec to underlying ESRD-H and P, 12/01 , Ama Mclaughlin MD RISK FACTORS - Acute on chronic heart failure-systolic- Physician Query response, 12/13, Antwon Price MD - PMH Hypertension-DS, 12/06, Albert Kapoor MD - S/p Defibrillator placement-DS, 12/06, Albert Kapoor MD TREATMENTS - Heparin.IV-MAY, 12/06 -Cardiology Consult- -Will keep holding his BP Meds for low BP (This form is maintained as a part of the permanent medical record) 2014 [employer]. All Rights Reserved [facility]
== END 2018-12-06 19:20 | disposition hospice, home (50) | DRG 280 ==
LOC: ERS 17:50 → IMCU/EMU 21:46 → 2NO 12-06 00:07
PROVIDERS: ADMIT Hospitalist; ATTEND Hospitalist
PROC: 30233N1 Transfusion of Nonautologous Red Blood Cells into Peripheral Vein, Percutaneous Approach (ICD-10-PCS; principal; 2018-12-02)
DX: I13.2 Hypertensive heart and chronic kidney disease with heart failure and with stage 5 chronic kidney disease, or end stage renal disease (principal); J96.21 Acute and chronic respiratory failure with hypoxia; I21.A1 Myocardial infarction type 2; N18.6 End stage renal disease; I50.23 Acute on chronic systolic (congestive) heart failure; D68.61 Antiphospholipid syndrome; R65.10 Systemic inflammatory response syndrome (SIRS) of non-infectious origin without acute organ dysfunction; G93.40 Encephalopathy, unspecified; D61.818 Other pancytopenia; Z66 Do not resuscitate; Z51.5 Encounter for palliative care; I48.0 Paroxysmal atrial fibrillation; I25.5 Ischemic cardiomyopathy; D63.1 Anemia in chronic kidney disease; I48.2 Chronic atrial fibrillation; G40.909 Epilepsy, unspecified, not intractable, without status epilepticus; F41.9 Anxiety disorder, unspecified; Z99.2 Dependence on renal dialysis; Z95.810 Presence of automatic (implantable) cardiac defibrillator; Z86.718 Personal history of other venous thrombosis and embolism; Z86.711 Personal history of pulmonary embolism; Z79.01 Long term (current) use of anticoagulants; Z88.8 Allergy status to other drugs, medicaments and biological substances
CPT/HCPCS: 36415; 36430; 51702; 71045; 71275; 74176; 80048; 80053; 80202; 82550; 82553; 82805; 83605; 83880; 84484; 85025; 86850; 86900; 86901; 87040; 87086; 87340; 90935; 93005; 94660; 94760; 96365; 96375; 96376; G0257; J1644; J1650; J2270; J2543; J3370; J3490; J7050; P9016; Q0163; Q5105; Q9966